=== PATIENT | female | born 1960 | race Caucasian/White ===

== ENCOUNTER → 2020-03-07 10:09 | Outpatient (BNVA) | payer OTHER, SELFPAY | PROVIDERS: PCP Internal Medicine; Visit Provider Internal Medicine Pulmonary Disease | DX: J44.9 Chronic obstructive pulmonary disease, unspecified (principal); R09.02 Hypoxemia; Z87.891 Personal history of nicotine dependence; Z88.8 Allergy status to other drugs, medicaments and biological substances; Z99.81 Dependence on supplemental oxygen | CPT/HCPCS: 99212 ==

== ENCOUNTER 2020-03-08 15:35 | Inpatient (IN) | payer OTHER, SELFPAY ==
[2020-03-08 15:57] VITALS: BP 175/112; PULSE 104; RESP 22; TEMP 37.3; O2SAT 99; BMI 32.0
--- NOTE | 2020-03-08 16:16 | PC.RT ---
Pt came in with EMS on100% NRB. Wears 4L of O2 at home baseline. Has a hx of asthma and COPD. Pt gave herself 3 Duoneb treatments prior to calling EMS. [place] no relief from nebs. I assessed her upon arrival Breath sounds are coarse crackles bilateral lower lobes. SPO2 on 10% NRB was 100%. wean to 4L on NC, SPO2 remained in the mid 90's, but patient felt as though it was harder to breath, noticed a increase in WOB, placed on 55% 14LPM with venti mask. Pt said she felt better with mask on.
--- NOTE | 2020-03-08 16:28 | XR_ITS ---
EXAMINATION: XR CHEST CLINICAL INFORMATION: Shortness of breath COMPARISON: Chest radiographs 12/27/2019, 09/01/2019 TECHNIQUE: Portable upright AP view of the chest was obtained. FINDINGS: The heart is enlarged similar to prior studies. The vascularity is normal. There is no vascular congestion or effusion. There is subtle groundglass opacities suggested right lateral base. No confluent airspace consolidation. The hilar and mediastinal contours and bony structures are unremarkable. XR/XR chest 1V IMPRESSION: 1. Chronic enlarged cardiopericardial silhouette. Vascularity normal. No effusion. 2. Suspect subtle groundglass opacity right lateral base.
--- NOTE | 2020-03-08 16:28 | ECG_ITS ---
Test Reason : DYSPNEA Blood Pressure : / mmHG Vent. Rate : 107 BPM Atrial Rate : 107 BPM P-R Int : 152 ms QRS Dur : 126 ms QT Int : 402 ms P-R-T Axes : 041 041 013 degrees QTc Int : 536 ms Sinus tachycardia RSR' or QR pattern in V1 suggests right ventricular conduction delay Nonspecific T wave abnormality Inferior leads Incomplete right bundle branch block Abnormal ECG When compared with ECG of 27-DEC-2019 09:43, No significant change was found Referred By: Phillip Choi Electronically Signed By:REGINALD DOBBS MD
--- NOTE | 2020-03-08 16:31 | ED_ITS ---
HPI - SOB/Dyspnea General Chief Complaint: Dyspnea Stated Complaint: SOB,ON NRB Time Seen by Provider: 03/08/20 16:17 Source: patient Mode of arrival: ambulatory Limitations: no limitations and language barrier History of Present Illness HPI Narrative: patient 59 years old female with history of systolic heart fail ure with left ventricular ejection fraction about 40% supposedly nonischemic, COPD with chronic respiratory failure on chronic oxygen therapy at 3 liters/minute obesity hypertension came to the ER for increased shortness of breath for last few days getting worse today patient use 3 DuoNeb treatment at home prior to arrival without much relief patient was seen by school bus technician yesterday who increased her oxygen from 3 L to 4 L 24 hours. Patient denies any fever no leg swelling no chest pain on arrival patient was Hi 80's saturating high 80s while using her 4 L oxygen improved to high 90s after some time also patient's blood pressure was elevated when she came to 175/112 MD elicited complaint: shortness of breath and cough Pertinent past history: COPD and congestive heart failure Onset (ago): day(s) (2-3) Timing: constant Severity: moderate Exacerbating factors: movement Relieving factors: oxygen Known history of: COPD and congestive heart failure Related Data Home Medications Medication Instructions Recorded Confirmed carvedilol 12.5 mg tablet 12.5 mg PO BID 02/01/20 furosemide 40 mg tablet 40 mg PO DAILY 02/01/20 ipratropium 0.5 mg-albuterol 3 mg ml INHALATION QID 02/01/20 (2.5 mg base)/3 mL nebulization soln lisinopril 5 mg tablet 5 mg PO DAILY 02/01/20 meclizine 25 mg tablet 25 mg PO TID PRN 02/01/20 metformin 1,000 mg tablet 1,000 mg PO BID 02/01/20 montelukast 10 mg tablet 10 mg PO BEDTIME 02/01/20 quetiapine 50 mg tablet mg PO 02/01/20 rosuvastatin 40 mg tablet 40 mg PO DAILY 02/01/20 sertraline 100 mg tablet 200 mg PO DAILY 02/01/20 simvastatin 40 mg tablet 40 mg PO BEDTIME 02/01/20 sodium chloride 0.65 % nasal spray spray INTRANASAL Q2H PRN 02/01/20 aerosol tiotropium bromide 18 mcg capsule 1 cap INHALATION DAILY 02/01/20 with inhalation device trazodone 50 mg tablet mg PO 02/01/20 Previous Rx's Medication Instructions Recorded fluticasone 250 mcg-salmeterol 50 1 inh INHALATION BID 30 Days #1 ea 03/07/20 mcg/dose blistr powdr for inhalation omeprazole 20 mg capsule,delayed 20 mg PO DAILY #30 cap 03/08/20 release omeprazole 20 mg capsule,delayed 20 mg PO DAILY 30 Days #30 cap 03/08/20 release Allergies Allergy/AdvReac Type Severity Reaction Status Date / Time nicotine [Nicotine] Allergy Unknown ITCHING Verified 03/07/20 10:12 WITH THE PATCHES topiramate Allergy Unknown inadequealte Verified 03/07/20 10:12 response Review of Systems Review of Systems: REVIEW OF SYSTEMS: Pertinent positives and negatives are stated above in the history. GEN: no fevers, chills, fatigue HEENT: no nasal congestion, sore throat, ear pain NEURO: no headache, dizziness, focal weakness PULM: ++dry cough, shortness of breath CV: no chest pain, palpitations, LE edema ABD: no abdominal pain, nausea, vomiting, diarrhea : no dysuria, urgency, frequency SKIN: no rash ROS otherwise negative x 10 PMFSH Past Medical History Medical History Cardiomyopathy COPD (chronic obstructive pulmonary disease) Diabetes HFrEF (heart failure with reduced ejection fraction) HLD (hyperlipidemia) HTN (hypertension) Mitral regurgitation KELLIE (obstructive sleep apnea) Surgical History Bilateral ankle fractures History of total abdominal hysterectomy Family History Family History Father No problems noted. Mother Liver cancer Hypertension Social History Social History Alcohol intake: unknown Smoking Status: Unknown if ever smoked Use of substances other than those prescribed or required for medical reasons: No Advance Directives: No (IN ED RM 1) Advance Directives Information Provided: No (IN ED RM 1) Physical Exam Vital Signs: Vital Signs: Last Vital Signs Temp 99.0 F 03/08/20 19:11 Pulse 81 03/08/20 19:11 Resp 16 03/08/20 19:11 BP 179/116 H 03/08/20 19:11 Pulse Ox 98 03/08/20 19:11 Body Mass Index 32.0 VITAL SIGNS: Reviewed. GENERAL: Well developed, well nourished, in moderate acute distress. on 55% Ventimask saturating 99% using accessory respiratory muscles HEAD: Normocephalic/atraumatic, EYES: PERRLA No pallor/icterus noted NOSE: Nares patent bilateral OROPHARYNX: Oral mucosa moist no oral lesions NECK: Supple, no adenopathy LUNGS: decreased breath sounds. few rales at the bases wheezing tachypneic using accessory respiratory muscle CARDIOVASCULAR: Regular rate and rhythm without noted murmurs, no JVD or lower extremity edema. ABDOMEN: Soft, non-tender, non-distended with normal bowel sounds. No rigidity. No guarding. No palpable masses or hernias noted MUSCULOSKELETAL: No tenderness, deformities, EXTREMITIES: No cyanosis or edema. SKIN: no rashes, ulcerations, jaundice, pallor, or petechiae NEUROLOGIC: Alert and oriented x 3. Strength and sensation to light touch were grossly intact normal speech Course Course Course Narrative: patient with elevated hypertension with CHF similar to that in the past with COPD and hypoxia chest x-ray with possible infiltrate right lower lobe patient has slightly elevated lactic acid 2.1 secondary to albuterol use it patient is not septic at this time COVID-19 is negative will treat with IV Lasix nitropaste IV Rocephin Zithromax and admit MDM - SOB/Dyspnea Differential Diagnosis Differential diagnosis: Likely acute exacerbation of chronic obstructive airways disease, congestive heart failure, pneumonia and asthma with exacerbation Medical Records Attestation: I reviewed the patient's medical records. Lab Data Attestation: I reviewed the patient's lab results. Result diagrams: 03/08/20 17:14 03/08/20 17:14 Labs: Lab Results 03/08/20 03/08/20 03/08/20 Range/Units 17:14 17:14 17:14 WBC 10.2 (4.8-10.8) X10*3/uL RBC 4.28 (4.20-5.50) X10*6/uL Hgb 10.5 L (12.0-16.0) g/dl Hct 35.6 L (37-47) % MCV 83.2 (80-98) fL MCH 24.5 L (27.0-33.0) pg MCHC 29.5 L (31.0-35.0) g/dl RDW 15.5 (11.0-16.0) % Plt Count 230 (160-400) X10*3/uL MPV 10.0 (9.4-12.3) fL Immature Gran % (Auto) 0.3 (0.0-0.4) % Neut % (Auto) 84.8 H (45-73) % Lymph % (Auto) 11.7 L (20-40) % [place] % (Auto) 2.3 (2-11) % Eos % (Auto) 0.6 (0-4) % Baso % (Auto) 0.3 (0-2) % Lymph # (Auto) 1.2 (1.2-4.9) X10*3/uL [place] # (Auto) 0.2 (0.1-1.2) X10*3/uL Eos # (Auto) 0.1 (0.0-0.4) X10*3/uL Baso # (Auto) 0.0 (0.0-0.2) X10*3/uL Abs Immat Gran (auto) 0.03 (0.00-0.03) X10*3/uL Absolute Neuts (auto) 8.7 H (2.0-8.3) X10*3/uL Absolute Nucleated RBC 0.000 (0.0-0.012) X10*3/uL Nucleated RBC % (auto) 0.0 (0.0-0.2) /100WBC Sodium 141 (135-145) mmol/L Potassium 3.6 (3.3-5.1) mmol/l Chloride 102 (96-108) mmol/L Carbon Dioxide 30 H (22-29) mmol/L Anion Gap 13 (12-20) BUN 13 (9-16) mg/dL Creatinine 0.83 (0.5-1.4) mg/dL Estim Creat Clear Calc 63.8 Estimated GFR > 60 Random Glucose 132 H (60-115) mg/dL Lactic Acid (0.5-2.0) mmol/L Calcium 8.5 (8.4-10.2) mg/dL Troponin I High Sens 27.0 H (<3.5-17.0) ng/L B-Natriuretic Peptide 1872 H (<100) pg/mL Coronavirus (PCR) (Negative) 03/08/20 03/08/20 Range/Units 17:14 17:15 WBC (4.8-10.8) X10*3/uL RBC (4.20-5.50) X10*6/uL Hgb (12.0-16.0) g/dl Hct (37-47) % MCV (80-98) fL MCH (27.0-33.0) pg MCHC (31.0-35.0) g/dl RDW (11.0-16.0) % Plt Count (160-400) X10*3/uL MPV (9.4-12.3) fL Immature Gran % (Auto) (0.0-0.4) % Neut % (Auto) (45-73) % Lymph % (Auto) (20-40) % [place] % (Auto) (2-11) % Eos % (Auto) (0-4) % Baso % (Auto) (0-2) % Lymph # (Auto) (1.2-4.9) X10*3/uL [place] # (Auto) (0.1-1.2) X10*3/uL Eos # (Auto) (0.0-0.4) X10*3/uL Baso # (Auto) (0.0-0.2) X10*3/uL Abs Immat Gran (auto) (0.00-0.03) X10*3/uL Absolute Neuts (auto) (2.0-8.3) X10*3/uL Absolute Nucleated RBC (0.0-0.012) X10*3/uL Nucleated RBC % (auto) (0.0-0.2) /100WBC Sodium (135-145) mmol/L Potassium (3.3-5.1) mmol/l Chloride (96-108) mmol/L Carbon Dioxide (22-29) mmol/L Anion Gap (12-20) BUN (9-16) mg/dL Creatinine (0.5-1.4) mg/dL Estim Creat Clear Calc Estimated GFR Random Glucose (60-115) mg/dL Lactic Acid 2.1 H* (0.5-2.0) mmol/L Calcium (8.4-10.2) mg/dL Troponin I High Sens (<3.5-17.0) ng/L B-Natriuretic Peptide (<100) pg/mL Coronavirus (PCR) NEGATIVE (Negative) ECG Data Attestation: I personally reviewed and interpreted this ECG as follows: ECG interpretation date: 03/08/20 Prior ECG tracings: available for review Interpretation: sinus tachycardia with heart rate of [address] T wave changes normal axis normal intervals Discharge Plan Discharge Prescriptions: No Action omeprazole 20 mg capsule,delayed release(DR/EC) 20 mg PO DAILY Qty: 30 RF: 3 omeprazole 20 mg capsule,delayed release(DR/EC) 20 mg PO DAILY 30 Days Qty: 30 RF: 3 fluticasone propion-salmeterol [Wixela Inhub] 250-50 mcg/dose blister with device 1 inh inhalation BID 30 Days Qty: 1 RF: 6
[2020-03-08] MEDS: Albuterol/Iprat 2.5/0.5MG 3 ML AMPUL.NEB INHALE ×2 (17:03→23:13)
[2020-03-08] MEDS: Albuterol Sulfate (0.083%) 2.5 MG/3 ML VIAL.NEB 5 MG INHALE (17:13)
[2020-03-08 17:23] LABS: MANUAL DIFF FLAG NO
[2020-03-08 17:24] LABS: Basophils Percent Auto 0.3 % (0-2); Eosinophils Absolute Auto 0.1 X10*3/uL (0.0-0.4); Eosinophils Percent Auto 0.6 % (0-4); Hematocrit 35.6 % (37-47); Hemoglobin 10.5 g/dl (12.0-16.0); Imm Gran Abs Auto 0.03 X10*3/uL (0.00-0.03); Imm Gran Pct Auto 0.3 % (0.0-0.4); Lymphocytes Absolute Auto 1.2 X10*3/uL (1.2-4.9); Lymphocytes Percent Auto 11.7 % (20-40); Mean Corpuscular HGB Conc 29.5 g/dl (31.0-35.0); Mean Corpuscular Hemoglobin 24.5 pg (27.0-33.0); Mean Corpuscular Volume 83.2 fL (80-98); Monocytes Absolute Auto 0.2 X10*3/uL (0.1-1.2); Monocytes Percent Auto 2.3 % (2-11); Neutrophils Absolute Auto 8.7 X10*3/uL (2.0-8.3); Neutrophils Percent Auto 84.8 % (45-73); Platelet Count 230 X10*3/uL (160-400); Red Blood Count 4.28 X10*6/uL (4.20-5.50); Red Cell Distribution Width 15.5 % (11.0-16.0); White Blood Count 10.2 X10*3/uL (4.8-10.8)
[2020-03-08 17:46] LABS: Anion Gap 13 (12-20); Blood Urea Nitrogen 13 mg/dL (9-16); Calcium 8.5 mg/dL (8.4-10.2); Carbon Dioxide 30 mmol/L (22-29); Chloride 102 mmol/L (96-108); Creatinine Clr Calc Pharmacy 63.8; Estimated Glomerular Filt Rate > 60; Glucose Random 132 mg/dL (60-115); Potassium 3.6 mmol/l (3.3-5.1); Sodium 141 mmol/L (135-145)
[2020-03-08 17:56] LABS: Lactic Acid 2.1 mmol/L (0.5-2.0)
[2020-03-08 17:57] LABS: B Type Natriuretic Peptide 1872 pg/mL (<100)
[2020-03-08 18:42] LABS: SARS COV2 PCR INHOUSE NEGATIVE (Negative)
[2020-03-08 19:11] VITALS: BP 179/116; PULSE 81; RESP 16; TEMP 37.2; O2SAT 98
[2020-03-08] MEDS: cefTRIAXone sodium 1 GM in 0.9 % Sodium Chloride 50 ML IV (19:16)
[2020-03-08] MEDS: Nitroglycerin 2 % Oint 1 GM Packet 1 INCH TRANSDERMA (19:16)
[2020-03-08] MEDS: Furosemide 40 MG/4 ML VIAL IVPUSH ×2 (19:16→22:56)
[2020-03-08 19:20] LABS: Reflex Lactate? Lactic Acid Added
--- NOTE | 2020-03-08 19:55 | P.HPIM_ITS ---
History of Present Illness Date of Service: 03/08/20 <JARROD James - Last Filed: 03/08/20 20:09> Chief Complaint: shortness of breath <JARROD James - Last Filed: 03/08/20 20:09> this is a 58-year-old female with a history of chronic respiratory failure on 4 L of home oxygen who presents to the emergency department with shortness of breath. Patient reports feeling short of breath for the past 2 days. She has an associated dry cough. She denies any lower extremity edema, PND or orthopnea. She denies any chest pain. She denies any associated fever or chills. She was seen in the Pulmonary office yesterday and noted to be hypoxic on her typical 3 L of oxygen therefore her oxygen was increased to 4 L. she reports in this did not significantly impact her symptoms. Today in the emergency department she was noted to be hypoxic with oxygen requirements higher than her baseline. She had a low-grade fever of 99.3. Coronavirus test was negative. BNP was elevated at 1872. troponin was slightly elevated 27.0. she was treated with IV antibiotics, IV Lasix, breathing treatments but continued to feel short of breath so the decision was made to admit her for further management. <JARROD James - Last Filed: 03/08/20 20:09> Review of Systems Review of Systems: Yes all other systems are reviewed and are negative <JARROD James - Last Filed: 03/08/20 20:09> Cardiovascular: Cardiovascular: Denies chest pain and Reports dyspnea <JARROD James - Last Filed: 03/08/20 20:09> Respiratory: Respiratory: Reports cough and Reports dyspnea <JARROD James - Last Filed: 03/08/20 20:09> Gastrointestinal: Gastrointestinal: Denies nausea and Denies vomiting <JARROD James - Last Filed: 03/08/20 20:09> [facility] Medical History: Medical History (Updated 03/08/20 @ 20:02 by JARROD James) Anxiety Cardiomyopathy Chronic respiratory failure COPD (chronic obstructive pulmonary disease) Depression Diabetes HFrEF (heart failure with reduced ejection fraction) HLD (hyperlipidemia) HTN (hypertension) Mitral regurgitation KELLIE (obstructive sleep apnea) <JARROD James - Last Filed: 03/08/20 20:09> Functional capacity: independent ambulation <JARROD James - Last Filed: 03/08/20 20:09> Family History: Family History Father No problems noted. Mother Liver cancer Hypertension <JARROD James - Last Filed: 03/08/20 20:09> Surgical History: Surgical History Bilateral ankle fractures History of total abdominal hysterectomy <JARROD James - Last Filed: 03/08/20 20:09> Social History: Social History (Updated 03/08/20 @ 20:03 by JARROD James) Household Members: None Alcohol intake: unknown Smoking Status: Current every day smoker Tobacco Type: Cigarette Use of substances other than those prescribed or required for medical reasons: No Advance Directives: No (IN ED RM 1) Advance Directives Information Provided: No (IN ED RM 1) <JARROD James - Last Filed: 03/08/20 20:09> Meds Allergies/Adverse reactions: Allergies Allergy/AdvReac Type Severity Reaction Status Date / Time nicotine [Nicotine] Allergy Unknown ITCHING Verified 03/07/20 10:12 WITH THE PATCHES topiramate Allergy Unknown inadequealte Verified 03/07/20 10:12 response <JARROD James - Last Filed: 03/08/20 20:09> Home medications: Home Medications Medication Instructions Recorded Confirmed Type furosemide 1 tab PO QAM 03/08/20 03/08/20 History ipratropium-albuterol 1 vial INHALATION QID 03/08/20 03/08/20 History lisinopril 1 tab PO DAILY 03/08/20 03/08/20 History metformin 1 tab PO BID 03/08/20 03/08/20 History montelukast 1 tab PO BEDTIME 03/08/20 03/08/20 History nicotine (polacrilex) 1 ea PO Q2H PRN 03/08/20 03/08/20 History omeprazole 20 mg PO DAILY@0630 03/08/20 03/08/20 History quetiapine 1 tab PO BID 03/08/20 03/08/20 History sertraline 2 tab PO DAILY 03/08/20 03/08/20 History simvastatin 1 tab PO BEDTIME 03/08/20 03/08/20 History sodium chloride [[place] Sal[place]] 2 drp INTRANASAL Q2H PRN 03/08/20 03/08/20 History tiotropium bromide [Spiriva with 1 cap INHALATION DAILY 03/08/20 03/08/20 History HandiHaler] trazodone 50 - 100 mg PO BEDTIME PRN 03/08/20 03/08/20 History <JARROD James - Last Filed: 03/08/20 20:09> Physical Exam Vital Signs and Narrative: Vital Signs: Last Vital Signs Temp 99.0 F 03/08/20 19:11 Pulse 81 03/08/20 19:11 Resp 16 03/08/20 19:11 BP 179/116 H 03/08/20 19:11 Pulse Ox 98 03/08/20 19:11 Body Mass Index 32.0 <JARROD James - Last Filed: 03/08/20 20:09> Const: Nutritional Appearance: well nourished <JARROD James Last Filed: 03/08/20 20:09> Orientation/consciousness: patient oriented x3 <JARROD James Last Filed: 03/08/20 20:09> HENMT: Head: Yes normocephalic and Yes atraumatic <JARROD James Last Filed: 03/08/20 20:09> Eyes: Sclerae: sclerae normal <JARROD James Last Filed: 03/08/20 20:09> Chest: Chest palpation & inspection: normal inspection of the chest <JARROD James Last Filed: 03/08/20 20:09> Resp: Effort & Inspection: audible wheezes and labored <JARROD James Last Filed: 03/08/20 20:09> Auscultation: diminished lung sounds <JARROD James Last Filed: 03/08/20 20:09> Cardio: Rate: regular rate <JARROD James - Last Filed: 03/08/20 20:09> Rhythm: regular rhythm <JARROD James Last Filed: 03/08/20 20:09> GI: Palpation (GI): Soft to palpation and nontender <JARROD James Last Filed: 03/08/20 20:09> Skin: General skin exam: no rashes or lesions noted <JARROD James Last Filed: 03/08/20 20:09> Neuro: General: patient oriented x3 <JARROD James Last Filed: 03/08/20 20:09> Cranial nerves: Yes CN's II-XII intact bilaterally and Yes Bilaterally intact EOM present <JARROD James - Last Filed: 03/08/20 20:09> Extrem: General: Yes normal to inspection <JARROD James Last Filed: 03/08/20 20:09> Results Labs Labs: Laboratory Tests 03/08/20 03/08/20 03/08/20 17:14 17:14 17:14 WBC 10.2 RBC 4.28 Hgb 10.5 L Hct 35.6 L MCV 83.2 MCH 24.5 L MCHC 29.5 L RDW 15.5 Plt Count 230 MPV 10.0 Immature Gran % (Auto) 0.3 Neut % (Auto) 84.8 H Lymph % (Auto) 11.7 L [place] % (Auto) 2.3 Eos % (Auto) 0.6 Baso % (Auto) 0.3 Lymph # (Auto) 1.2 [place] # (Auto) 0.2 Eos # (Auto) 0.1 Baso # (Auto) 0.0 Abs Immat Gran (auto) 0.03 Absolute Neuts (auto) 8.7 H Absolute Nucleated RBC 0.000 Nucleated RBC % (auto) 0.0 Sodium 141 Potassium 3.6 Chloride 102 Carbon Dioxide 30 H Anion Gap 13 BUN 13 Creatinine 0.83 Estim Creat Clear Calc 63.8 Estimated GFR > 60 Random Glucose 132 H Lactic Acid Calcium 8.5 Troponin I High Sens 27.0 H B-Natriuretic Peptide 1872 H Coronavirus (PCR) 03/08/20 03/08/20 17:14 17:15 WBC RBC Hgb Hct MCV MCH MCHC RDW Plt Count MPV Immature Gran % (Auto) Neut % (Auto) Lymph % (Auto) [place] % (Auto) Eos % (Auto) Baso % (Auto) Lymph # (Auto) [place] # (Auto) Eos # (Auto) Baso # (Auto) Abs Immat Gran (auto) Absolute Neuts (auto) Absolute Nucleated RBC Nucleated RBC % (auto) Sodium Potassium Chloride Carbon Dioxide Anion Gap BUN Creatinine Estim Creat Clear Calc Estimated GFR Random Glucose Lactic Acid 2.1 H* Calcium Troponin I High Sens B-Natriuretic Peptide Coronavirus (PCR) NEGATIVE <JARROD James - Last Filed: 03/08/20 20:09> Imaging Radiologist's Impressions: Impressions Chest X-Ray 03/08/20 16:28 IMPRESSION: 1. Chronic enlarged cardiopericardial silhouette. Vascularity normal. No effusion. 2. Suspect subtle groundglass opacity right lateral base. <JARROD James - Last Filed: 03/08/20 20:09> Assessment and Plan (1) HFrEF (heart failure with reduced ejection fraction): Status: Acute <JARROD James - Last Filed: 03/08/20 20:09> (2) Severe chronic obstructive pulmonary disease: Status: Acute <JARROD James - Last Filed: 03/08/20 20:09> this is a 59-year-old female with a history of chronic respiratory failure on 4 L of home oxygen, COPD, heart failure with reduced ejection fraction, sleep apnea, hypertension, dyslipidemia, diabetes who presents to the emergency department with 2 day history of shortness of breath found to have CHF and COPD exacerbation acute on chronic respiratory failure with hypoxia related to underlying COPD, CHF HFrEF - IV Lasix -Is&Os - cardiology consult acute COPD exacerbation - IV Solu-Medrol - breathing treatments elevated troponin likely related to demand - will trend tobacco dependence smoking cessation advised -NRT diabetes - SSI, POC KELLIE - CPAP elevated lactic acid related to hypoxia and breathing treatments no sepsis home medications will be continued once med reconciliation has been completed DVT prophylaxis- Lovenox code status- DNR DNI this case was discussed with Dr. Johnson <JARROD James - Last Filed: 03/08/20 20:09>
[2020-03-08] MEDS: Azithromycin 500 MG in 0.9 % Sodium Chloride 250 ML 125 MG IV (20:22)
--- NOTE | 2020-03-08 20:47 | PM.EVENT ---
Event Note Date of Service: 03/08/20 Event Note: Admission note: 59 y/o female who presented from home due to SOB. PMHX of COPD with chronic resp failure on 4 liters home oxygen, heart failure with reduced ejection fraction, sleep apnea, hypertension, dyslipidemia and diabetes. Patietn to be admitted due to acute on chronic COPD exacerbation vs CHF exacerbation. Denies any chest pain, nausea, vomiting, diarrhea or fever. Covid test in the ED negative. BP elevated 179/116 with HR of 81. CXR showing no significant vascular congestion and no pitting edema identified on physical exam or JVD. Assessment/Plan: Acute on chronic resp failure secondary to COPD exacerbation vs CHF exacerbation Elevated troponin likely demand ischemia Daily weights continue with IV diuresis Monitor I and O's closely cardiac rehabilitation program director Continue with updraft treatment for COPD Trend troponin, firs troponin of 27 likely demand ischemia given patient is not complaining for chest pain at present and there is no acute changes on EKG Cardiology evaluation in the am rest of the plan as discussed with JARROD Milan per H and P
--- NOTE | 2020-03-08 20:52 | PC.NURSE ---
Floor called regarding report for admission, Kanika VIZCAINO will be calling back to take report.
[2020-03-08 21:14] VITALS: BP 145/97; PULSE 84; RESP 20; TEMP 36.7; O2SAT 94
[2020-03-08 21:57] VITALS: PULSE 81; RESP 28; TEMP 36.7; O2SAT 100
[2020-03-08 22:06] VITALS: BP 185/109; PULSE 89
[2020-03-08 22:46] LABS: Glucose, Whole Blood 188 mg/dL (60-115)
[2020-03-08] MEDS: Magnesium Sulfate/H2O 2 GM/50 ML PIGGYBACK IV (22:56)
[2020-03-08 22:57] LABS: Troponin-I High Sensitivity 28.2 ng/L (<3.5-17.0)
[2020-03-08] MEDS: Insulin Lispro 100 UNIT/ML 3 ML VIAL SUBCUT (22:57)
[2020-03-08] MEDS: 0.9 % Sodium Chloride Flush 3 ML SYRINGE IVFLUSH (22:57)
[2020-03-08] MEDS: Enoxaparin Sodium 40 MG/0.4 ML SYRINGE SUBCUT (22:57)
[2020-03-09] VITALS (9 sets, daily range): BP systolic 136–173; BP diastolic 78–102; PULSE 70–90; RESP 18–25; TEMP 36.3–37; O2SAT 92–98; BMI 32.0
[2020-03-09] MEDS: Doxycycline Hyclate 100 MG in 0.9 % Sodium Chloride 250 ML 166.67 MG IV ×3 (00:59→23:04)
[2020-03-09 06:12] LABS: MANUAL DIFF FLAG NO
[2020-03-09 06:45] LABS: Anion Gap 17 (12-20); Blood Urea Nitrogen 15 mg/dL (9-16); Calcium 8.4 mg/dL (8.4-10.2); Carbon Dioxide 28 mmol/L (22-29); Chloride 100 mmol/L (96-108); Creatinine Clr Calc Pharmacy 69.7; Estimated Glomerular Filt Rate > 60; Glucose Random 158 mg/dL (60-115); Potassium 3.8 mmol/l (3.3-5.1); Sodium 141 mmol/L (135-145)
[2020-03-09 06:52] LABS: B Type Natriuretic Peptide 2981 pg/mL (<100)
[2020-03-09 06:53] LABS: Hematocrit 33.5 % (37-47); Hemoglobin 10.1 g/dl (12.0-16.0); Imm Gran Abs Auto 0.02 X10*3/uL (0.00-0.03); Imm Gran Pct Auto 0.3 % (0.0-0.4); Lymphocytes Absolute Auto 0.7 X10*3/uL (1.2-4.9); Lymphocytes Percent Auto 9.8 % (20-40); Mean Corpuscular HGB Conc 30.1 g/dl (31.0-35.0); Mean Corpuscular Hemoglobin 24.6 pg (27.0-33.0); Mean Corpuscular Volume 81.5 fL (80-98); Mean Platelet Volume 10.6 fL (9.4-12.3); Monocytes Absolute Auto 0.1 X10*3/uL (0.1-1.2); Monocytes Percent Auto 1.3 % (2-11); Neutrophils Absolute Auto 6.3 X10*3/uL (2.0-8.3); Neutrophils Percent Auto 88.6 % (45-73); Platelet Count 228 X10*3/uL (160-400); Red Blood Count 4.11 X10*6/uL (4.20-5.50); Red Cell Distribution Width 15.4 % (11.0-16.0); White Blood Count 7.1 X10*3/uL (4.8-10.8)
[2020-03-09] MEDS: Albuterol/Iprat 2.5/0.5MG 3 ML AMPUL.NEB INHALE ×4 (07:23→19:29)
[2020-03-09 07:32] LABS: Glucose, Whole Blood 161 mg/dL (60-115)
[2020-03-09] MEDS: 0.9 % Sodium Chloride Flush 3 ML SYRINGE IVFLUSH ×3 (07:36→23:04)
[2020-03-09] MEDS: Insulin Lispro 100 UNIT/ML 3 ML VIAL SUBCUT ×2 (07:36→20:58)
--- NOTE | 2020-03-09 09:45 | MHC.CM.PN ---
FEMALE 59 DX DYSPNEA. LIVES ALONE WITH ASSIST FROM [facility]MT [facility]PER[facility]. SHE DOES NOT USE AN AD. DP HOME RESUME [facility] PRIVATE TRANSPORT. CM WILL FOLLOW
--- NOTE | 2020-03-09 10:50 | HO.PM.IMPN ---
Subjective Subjective Date of Service: 03/09/20 Interval History: seen in f/u for copd exacerbation, acute on chronic resp failure with hypoxia. She feels a bit better Review of Systems Gen: no fever Resp: +no sob, +no cough CV: no chest, no [place], no leg edema GI: No n/v, no abd pain Neuro: No confusion Physical Exam Vital Signs: Vital Signs: Last Vital Signs Temp 98.6 F 03/09/20 03:41 Pulse 80 03/09/20 08:00 Resp 25 H 03/09/20 08:00 BP 160/90 H 03/09/20 08:00 Pulse Ox 92 03/09/20 08:00 Body Mass Index 32.0 General: AO X 3, no acute distress Resp: Normal resp effort CVS: S1,S2,RRR GI: +BS, NT, no distention Skin: No rash Neuro: motor grossly intact Psych: appropriate affect Objective Data Current Medications Generic Name Dose Route Start Last Admin Trade Name Freq PRN Reason Stop Dose Admin Acetaminophen 650 mg 03/08/20 21:54 Acetaminophen 325 Mg Tablet PO Q6H PRN Pain, Mild (Pain Scale 1-3) Albuterol Sulfate 2.5 mg 03/08/20 21:54 Albuterol Sulfate (0.083%) 2.5 Mg/3 Ml Vial.Neb INHALE Q4H PRN Shortness of Breath/Wheezing Albuterol/Ipratropium 3 ml 03/08/20 21:54 03/09/20 07:23 Albuterol/Iprat 2.5/0.5mg 3 Ml Ampul.Neb INHALE 3 ml RQ4H WHILE AWAKE [facility] Administration Docusate Sodium 100 mg 03/08/20 21:54 Docusate Sodium 100 Mg Capsule PO DAILY PRN Constipation Enoxaparin Sodium 40 mg 03/08/20 22:00 03/08/20 22:57 Enoxaparin Sodium 40 Mg/0.4 Ml Syringe SUBCUT 40 mg Q24H [facility] Administration Furosemide 40 mg 03/08/20 22:00 03/08/20 22:56 Furosemide 40 Mg/4 Ml Vial IVPUSH 40 mg Q12H [facility] Administration Protocol Doxycycline Hyclate 100 mg/ 250 mls @ 166.67 mls/hr 03/08/20 23:00 03/09/20 02:43 Sodium Chloride IV Infused Q12H [facility] Infusion Insulin Human Lispro 0 unit 03/08/20 21:54 03/09/20 07:36 Insulin Lispro 100 Unit/Ml 3 Ml Vial SUBCUT 2 unit QIDACHS [facility] Administration Protocol Methylprednisolone Sodium Succinate 40 mg 03/08/20 21:54 03/08/20 22:56 Methylprednisolone Sod Succ/Pf 40 Mg/Ml Vial IVPUSH 40 mg TID [facility] Administration Nicotine Polacrilex 2 mg 03/08/20 21:54 Nicotine Polacrilex 2 Mg Gum BUCCAL Q2H PRN Nicotine Cravings Pharmacy Consult 1 each 03/08/20 19:39 Consult Rx Perform Med Rec MISCELLANE ONCE PRN Consult order Sodium Chloride 3 ml 03/09/20 00:00 03/09/20 07:36 0.9 % Sodium Chloride Flush 3 Ml Syringe IVFLUSH 3 ml QSHIFT [facility] Administration Labs CBC & Chem 7: 03/09/20 05:55 03/09/20 05:55 Assessment and Plan (1) HFrEF (heart failure with reduced ejection fraction): Status: Acute (2) Severe chronic obstructive pulmonary disease: Status: Acute Assessment and Plan: 59-year-old female with a history of chronic respiratory failure on 4 L of home oxygen, COPD, heart failure with reduced ejection fraction, sleep apnea, hypertension, dyslipidemia, diabetes who presents to the emergency department with 2 day history of shortness of breath found to have CHF and COPD exacerbation acute on chronic respiratory failure with hypoxia related to underlying COPD, CHF HFrEF--seem much improved - IV Lasix, probably to PO -Is&Os - cardiology consult pending acute COPD exacerbation - IV Solu-Medrol - breathing treatments -Doxycyline for bronchitis elevated troponin--flat likely related to demand - tobacco dependence smoking cessation advised -NRT diabetes - SSI, POC KELLIE - CPAP elevated lactic acid related to hypoxia and breathing treatments no sepsis
[2020-03-09] MEDS: Furosemide 40 MG/4 ML VIAL IVPUSH (10:53)
[2020-03-09 12:01] LABS: Glucose, Whole Blood 118 mg/dL (60-115)
--- NOTE | 2020-03-09 12:47 | P.CONCA_ITS ---
History of Present Illness History of Present Illness Date of Consult: March 09, 2020 Requesting physician: Sahil Yost Chief complaint: Dyspnea Narrative: 59-year-old female with background history of COPD on home oxygen, ongoing tobacco abuse, nonischemic cardiomyopathy with EF of 30 35% with moderate severe mitral regurgitation, hypertension, hyperlipidemia, asthma, diabetes, shortness syndrome with interstitial lung disease and mild pulmonary hypertension, fatty liver, obstructive sleep apnea, dyslipidemia and depression. She is presenting with dyspnea. She said she could not breathe despite using oxygen at home. She denies any fevers or chills. She denies any chest discomfort. With these symptoms she presented to [facility] and was admitted for further care. At this stage she has received IV antibiotics as well as steroids with inhalers and is on IV Lasix also. She is feeling better right now. Her blood pressure is elevated. Denies any active issues right now. Review of Systems Review of Systems: Presented with dyspnea Yes all other systems are review ed and are negative [facility] Past Medical History Medical History (Updated 03/08/20 @ 20:02 by JARROD James) Anxiety Cardiomyopathy Chronic respiratory failure COPD (chronic obstructive pulmonary disease) Depression Diabetes HFrEF (heart failure with reduced ejection fraction) HLD (hyperlipidemia) HTN (hypertension) Mitral regurgitation KELLIE (obstructive sleep apnea) Functional capacity: independent ambulation Family History Family History Father No problems noted. 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 If so, by whom?: No Do you feel safe in your current relationship?: No Is there a partner from a previous relationship who is making you feel unsafe now?: No Are you made to feel afraid or neglected: No Advance Directives: No (IN ED RM 1) Advance Directives Information Provided: No (IN ED RM 1) Do you have thoughts of harming others: None Do you have a plan to hurt others: No Plan Recently lost weight without trying: No service: No Current occupational status: disabled Meds Allergies Allergy/AdvReac Type Severity Reaction Status Date / Time nicotine [Nicotine] Allergy Unknown ITCHING Verified 03/07/20 10:12 WITH THE PATCHES topiramate Allergy Unknown [email or web address] Verified 03/07/20 10:12 response Home Medications Medication Instructions Recorded Confirmed Type furosemide 1 tab PO QAM 03/08/20 03/08/20 History ipratropium-albuterol 1 vial INHALATION QID 03/08/20 03/08/20 History lisinopril 1 tab PO DAILY 03/08/20 03/08/20 History metformin 1 tab PO BID 03/08/20 03/08/20 History montelukast 1 tab PO BEDTIME 03/08/20 03/08/20 History nicotine (polacrilex) 1 ea PO Q2H PRN 03/08/20 03/08/20 History omeprazole 20 mg PO DAILY@0630 03/08/20 03/08/20 History quetiapine 1 tab PO BID 03/08/20 03/08/20 History sertraline 2 tab PO DAILY 03/08/20 03/08/20 History simvastatin 1 tab PO BEDTIME 03/08/20 03/08/20 History sodium chloride [[place] Saline] 2 drp INTRANASAL Q2H PRN 03/08/20 03/08/20 History tiotropium bromide [Spiriva with 1 cap INHALATION DAILY 03/08/20 03/08/20 History HandiHaler] trazodone 50 - 100 mg PO BEDTIME PRN 03/08/20 03/08/20 History Physical Exam Vital Signs: Vital Signs: Last Vital Signs Temp 97.8 F 03/09/20 11:48 Pulse 90 03/09/20 11:48 Resp 18 03/09/20 11:48 BP 173/96 H 03/09/20 11:48 Pulse Ox 96 03/09/20 11:48 Body Mass Index 32.0 GENERAL APPEARANCE: in no acute distress, well developed, well nourished. HEENT: unremarkable. HEAD: normocephalic, atraumatic. NECK/THYROID: no carotid bruit, no jugular venous distention. SKIN: no suspicious lesions, warm and dry. HEART: no murmurs, regular rate and rhythm, S1, S2 normal. LUNGS: few crackles at bases ABDOMEN: normal, bowel sounds present, soft, nontender, nondistended. EXTREMITIES: no clubbing, cyanosis, or edema. PERIPHERAL PULSES: equal. NEUROLOGIC: nonfocal, alert and oriented. PSYCH: mood/affect full range. Results Labs and Meds Result diagrams: 03/09/20 05:55 03/09/20 05:55 Lab results: Laboratory Results - last 24 hr 03/08/20 03/08/20 03/08/20 17:14 17:14 17:14 WBC 10.2 RBC 4.28 Hgb 10.5 L Hct 35.6 L MCV 83.2 MCH 24.5 L MCHC 29.5 L RDW 15.5 Plt Count 230 MPV 10.0 Immature Gran % (Auto) 0.3 Neut % (Auto) 84.8 H Lymph % (Auto) 11.7 L [place] % (Auto) 2.3 Eos % (Auto) 0.6 Baso % (Auto) 0.3 Lymph # (Auto) 1.2 [place] # (Auto) 0.2 Eos # (Auto) 0.1 Baso # (Auto) 0.0 Abs Immat Gran (auto) 0.03 Absolute Neuts (auto) 8.7 H Absolute Nucleated RBC 0.000 Nucleated RBC % (auto) 0.0 Sodium 141 Potassium 3.6 Chloride 102 Carbon Dioxide 30 H Anion Gap 13 BUN 13 Creatinine 0.83 Estim Creat Clear Calc 63.8 Estimated GFR > 60 POC Glucose Random Glucose 132 H Lactic Acid Lactic Acid Fup @ 2Hr Calcium 8.5 Magnesium 2.0 Troponin I High Sens 27.0 H B-Natriuretic Peptide 1872 H Coronavirus (PCR) 03/08/20 03/08/20 03/08/20 17:14 17:15 21:00 WBC RBC Hgb Hct MCV MCH MCHC RDW Plt Count MPV Immature Gran % (Auto) Neut % (Auto) Lymph % (Auto) [place] % (Auto) Eos % (Auto) Baso % (Auto) Lymph # (Auto) [place] # (Auto) Eos # (Auto) Baso # (Auto) Abs Immat Gran (auto) Absolute Neuts (auto) Absolute Nucleated RBC Nucleated RBC % (auto) Sodium Potassium Chloride Carbon Dioxide Anion Gap BUN Creatinine Estim Creat Clear Calc Estimated GFR POC Glucose Random Glucose Lactic Acid 2.1 H* Lactic Acid Fup @ 2Hr 1.0 Calcium Magnesium Troponin I High Sens B-Natriuretic Peptide Coronavirus (PCR) NEGATIVE 03/08/20 03/08/20 03/09/20 22:11 22:43 05:55 WBC 7.1 RBC 4.11 L Hgb 10.1 L Hct 33.5 L MCV 81.5 MCH 24.6 L MCHC 30.1 L RDW 15.4 Plt Count 228 MPV 10.6 Immature Gran % (Auto) 0.3 Neut % (Auto) 88.6 H Lymph % (Auto) 9.8 L [place] % (Auto) 1.3 L Eos % (Auto) 0.0 Baso % (Auto) 0.0 Lymph # (Auto) 0.7 L [place] # (Auto) 0.1 Eos # (Auto) 0.0 Baso # (Auto) 0.0 Abs Immat Gran (auto) 0.02 Absolute Neuts (auto) 6.3 Absolute Nucleated RBC 0.000 Nucleated RBC % (auto) 0.0 Sodium Potassium Chloride Carbon Dioxide Anion Gap BUN Creatinine Estim Creat Clear Calc Estimated GFR POC Glucose 188 H Random Glucose Lactic Acid Lactic Acid Fup @ 2Hr Calcium Magnesium Troponin I High Sens 28.2 H B-Natriuretic Peptide Coronavirus (PCR) 03/09/20 03/09/20 03/09/20 05:55 05:55 07:14 WBC RBC Hgb Hct MCV MCH MCHC RDW Plt Count MPV Immature Gran % (Auto) Neut % (Auto) Lymph % (Auto) [place] % (Auto) Eos % (Auto) Baso % (Auto) Lymph # (Auto) [place] # (Auto) Eos # (Auto) Baso # (Auto) Abs Immat Gran (auto) Absolute Neuts (auto) Absolute Nucleated RBC Nucleated RBC % (auto) Sodium 141 Potassium 3.8 Chloride 100 Carbon Dioxide 28 Anion Gap 17 BUN 15 Creatinine 0.76 Estim Creat Clear Calc 69.7 Estimated GFR > 60 POC Glucose 161 H Random Glucose 158 H Lactic Acid Lactic Acid Fup @ 2Hr Calcium 8.4 Magnesium Troponin I High Sens B-Natriuretic Peptide 2981 H Coronavirus (PCR) 03/09/20 11:53 WBC RBC Hgb Hct MCV MCH MCHC RDW Plt Count MPV Immature Gran % (Auto) Neut % (Auto) Lymph % (Auto) [place] % (Auto) Eos % (Auto) Baso % (Auto) Lymph # (Auto) [place] # (Auto) Eos # (Auto) Baso # (Auto) Abs Immat Gran (auto) Absolute Neuts (auto) Absolute Nucleated RBC Nucleated RBC % (auto) Sodium Potassium Chloride Carbon Dioxide Anion Gap BUN Creatinine Estim Creat Clear Calc Estimated GFR POC Glucose 118 H Random Glucose Lactic Acid Lactic Acid Fup @ 2Hr Calcium Magnesium Troponin I High Sens B-Natriuretic Peptide Coronavirus (PCR) EKG Interpretation EKG Comments: ECG from 03/08/2020 showing sinus rhythm, normal axis, right bundle-branch block, nonspecific ST-T changes, QTC 536 milliseconds. Assessment and Plan (1) Cardiomyopathy: Status: Acute (2) Mitral regurgitation: Status: Acute (3) Severe chronic obstructive pulmonary disease: Status: Acute (4) HFrEF (heart failure with reduced ejection fraction): Status: Acute (5) HTN (hypertension): Status: Acute Pleasant 59-year-old female with the background of COPD on home oxygen as well as cardiomyopathy with EF of 30 35% which is thought to be nonischemic cardiomyopathy based on stress testing in the past. She is presenting with dyspnea. Chest x-ray showing some subtle changes for infection and she is on doxycycline. Clinically not volume overloaded. Her blood pressure is elevated though. I think she can be changed to oral diuretics. Please resume her lisinopril 5 mg and carvedilol 6.25 mg twice a day. If blood pressure is elevated then we will titrate her medications. I think her presentation seems more like COPD. in any case she is not significantly volume overloaded. I think she definitely needs better blood pressure control. She has prolonged QTC please monitor electrolytes closely and avoid medications that can prolong QT further. She is on Seroquel at home along with trazodone as needed. I think her medication regimen should be reassessed and unnecessary medications should be stopped. Thank you for allowing me to participate in the care of your patient. Please feel free to contact me if you have any questions.
[2020-03-09 16:52] LABS: Glucose, Whole Blood 150 mg/dL (60-115)
[2020-03-09] MEDS: lisinopriL 10 MG TABLET PO (17:09)
[2020-03-09 20:51] LABS: Glucose, Whole Blood 186 mg/dL (60-115)
[2020-03-09] MEDS: Enoxaparin Sodium 40 MG/0.4 ML SYRINGE SUBCUT (20:57)
[2020-03-09] MEDS: carvediloL 6.25 MG TABLET PO (20:58)
[2020-03-10] VITALS (8 sets, daily range): BP systolic 135–169; BP diastolic 76–100; PULSE 67–79; RESP 18–20; TEMP 36.6–37.1; O2SAT 89–100
[2020-03-10 07:40] LABS: Glucose, Whole Blood 102 mg/dL (60-115)
[2020-03-10] MEDS: Albuterol/Iprat 2.5/0.5MG 3 ML AMPUL.NEB INHALE ×3 (08:05→15:27)
[2020-03-10] MEDS: carvediloL 6.25 MG TABLET PO ×2 (08:31→21:07)
[2020-03-10] MEDS: 0.9 % Sodium Chloride Flush 3 ML SYRINGE IVFLUSH ×2 (08:32→16:19)
[2020-03-10] MEDS: Furosemide 40 MG TABLET PO (08:32)
[2020-03-10] MEDS: lisinopriL 10 MG TABLET PO ×2 (08:32→12:14)
--- NOTE | 2020-03-10 10:30 | PM.PNCARD ---
Subjective Subjective Interval history: Cardiology follow up for sob, CHF evaluation. Awake, reports breathing is feeling better. Wearing high flow O2 with cannula. Resting comfortably. Review of Systems Constitutional: Reports no additional constitutional complaints Cardiovascular: Denies Abdominal Distension, Denies chest pain, Denies chest pain at rest, Denies chest pain with activity, Denies pedal edema, Denies irregular heart rhythm, Denies dyspnea and Reports dyspnea on exertion Respiratory: Denies chest congestion, Denies cough, Denies dyspnea and Reports dyspnea on exertion Gastrointestinal: Reports no additional gastrointestinal complaints Musculoskeletal: Reports no additional musculoskeletal complaints Reports system reviewed and no additional complaints, except as documented Physical Exam Vital Signs: Last Vital Signs Temp 98.5 F 03/10/20 07:57 Pulse 76 03/10/20 08:31 Resp 20 03/10/20 07:57 BP 162/100 H 03/10/20 08:31 Pulse Ox 100 03/10/20 07:57 Body Mass Index 32.0 Const Other: Alert, oriented, speech clear, follows commands HENVT Other: normal to exam, no JVD, no carotid bruit noted Resp Other: Unlabored at rest, no cough noted, wearing O2, laying with HOB 30 degrees, lungs clear anteriorly, posteriorly with fine rales in right base Cardio Rate: regular rate Rhythm: regular rhythm Heart sounds: S1 normal heart sound present, S2 normal heart sound present, Murmur heart sound present and Rub heart sound present Peripheral pulses: Peripheral pulses 2+ throughout GI Inspection: Yes normal to inspection Extrem Other: MORGAN, no gross weakness, no edema noted Results Labs and Meds Result diagrams: 03/09/20 05:55 03/09/20 05:55 Lab results: Laboratory Results - last 24 hr 03/09/20 03/09/20 03/09/20 11:53 16:48 20:47 POC Glucose 118 H 150 H 186 H 03/10/20 07:36 POC Glucose 102 Progress Note: A&P Assessment and plan (1) HFrEF (heart failure with reduced ejection fraction): Status: Acute Assessment and Plan: hx HFrEF. Admit with sob, hypoxia. CXR findings suggesting pneumonia. On AB. Does not appear fluid overloaded on exam even though BNP has been elevated. She normally takes Lasix 40mg daily and has been recieving BID. Fluid balance is neg 2200 cc since admit. Reviewed with Dr Curry. Will reduce her lasix to once daily. (2) Cardiomyopathy: Status: Acute Assessment and Plan: hx of nonischemic CMP. Last echo 01/17/20 with EF 40-45%, mild increase LV wall thickness, basal inferior akinetic. On Lisinopril and Carvedilol for neurohormonal modulation. Increasing Lisinopril for better BP control. Continue current carvedilol dose due to hx COPD. (3) Mitral regurgitation: Status: Acute Assessment and Plan: has known Mod to severe MR, as seen on prior echo 08/2019. Followed as outpt in our office. (4) Pneumonia: Status: Acute Assessment and Plan: Breathing seems comfortable at rest. She does report improvement since admit. Still wearing high flow O2. Ongoing mgt as directed by hospitalist (5) Severe chronic obstructive pulmonary disease: Status: Acute Assessment and Plan: hx O2 dependant COPD. Now with exacerbation. (6) Supplemental oxygen dependent: Status: Acute (7) HTN (hypertension): Status: Acute Assessment and Plan: BP elevated this admit. Lisinopril dose was increased from 5mg daily up to 10mg yesterday. BP this am 162/100. Will further titrate Lisinopril, as this will help with BP and CMP. Continue same Carvedlol. (8) KELLIE (obstructive sleep apnea): Status: Acute (9) Prolonged QT interval: Status: Acute Assessment and Plan: EKG on admit with QTc 536ms. K 3.8, Mg 2.0. Tele monitoring showing SR 80-90s. Recommend avoiding medications that prolong QT interval. Fall Risk Details Current Medications: Current Medications Generic Name Dose Route Start Last Admin Trade Name Freq PRN Reason Stop Dose Admin Acetaminophen 650 mg 03/08/20 21:54 Acetaminophen 325 Mg Tablet PO Q6H PRN Pain, Mild (Pain Scale 1-3) Albuterol Sulfate 2.5 mg 03/08/20 21:54 Albuterol Sulfate (0.083%) 2.5 Mg/3 Ml Vial.Neb INHALE Q4H PRN Shortness of Breath/Wheezing Albuterol/Ipratropium 3 ml 03/08/20 21:54 03/10/20 08:05 Albuterol/Iprat 2.5/0.5mg 3 Ml Ampul.Neb INHALE 3 ml RQ4H WHILE AWAKE [facility] Administration Carvedilol 6.25 mg 03/09/20 21:00 03/10/20 08:31 Carvedilol 6.25 Mg Tablet PO 6.25 mg BID [facility] Administration Protocol Docusate Sodium 100 mg 03/08/20 21:54 Docusate Sodium 100 Mg Capsule PO DAILY PRN Constipation Enoxaparin Sodium 40 mg 03/08/20 22:00 03/09/20 20:57 Enoxaparin Sodium 40 Mg/0.4 Ml Syringe SUBCUT 40 mg Q24H [facility] Administration Furosemide 40 mg 03/10/20 09:00 03/10/20 08:32 Furosemide 40 Mg Tablet PO 40 mg BID@0900,1800 [facility] Administration Protocol Doxycycline Hyclate 100 mg/ 250 mls @ 166.67 mls/hr 03/08/20 23:00 03/10/20 00:44 Sodium Chloride IV Infused Q12H [facility] Infusion Insulin Human Lispro 0 unit 03/08/20 21:54 03/10/20 08:32 Insulin Lispro 100 Unit/Ml 3 Ml Vial SUBCUT Not Given QIDACHS [facility] Protocol Lisinopril 10 mg 03/09/20 17:00 03/10/20 08:32 Lisinopril 10 Mg Tablet PO 10 mg DAILY [facility] Administration Protocol Methylprednisolone Sodium Succinate 40 mg 03/08/20 21:54 03/10/20 08:33 Methylprednisolone Sod Succ/Pf 40 Mg/Ml Vial IVPUSH 40 mg TID [facility] Administration Nicotine Polacrilex 2 mg 03/08/20 21:54 Nicotine Polacrilex 2 Mg Gum BUCCAL Q2H PRN Nicotine Cravings Pharmacy Consult 1 each 03/08/20 19:39 Consult Rx Perform Med Rec MISCELLANE ONCE PRN Consult order Sodium Chloride 3 ml 03/09/20 00:00 03/10/20 08:32 0.9 % Sodium Chloride Flush 3 Ml Syringe IVFLUSH 3 ml QSHIFT [facility] Administration Time Spent With Patient Time: Total time spent is greater than 50% in coordination of care (as documented) at patient's floor/unit and/or counseling patient: 15 Time with patient: 15 - 24 minutes
--- NOTE | 2020-03-10 11:17 | HO.PM.IMPN ---
Subjective Subjective Date of Service: 03/10/20 Interval History: seen in f/u for copd exacerbation, acute on chronic resp failure with hypoxia. continue to feel better Review of Systems Gen: no fever Resp: no sob, no cough CV: no chest, no [place], no leg edema GI: No n/v, no abd pain Neuro: No confusion Physical Exam Vital Signs: Vital Signs: Last Vital Signs Temp 98.5 F 03/10/20 07:57 Pulse 76 03/10/20 08:31 Resp 20 03/10/20 07:57 BP 162/100 H 03/10/20 08:31 Pulse Ox 100 03/10/20 07:57 Body Mass Index 32.0 General: AO X 3, no acute distress Resp: Normal resp effort CVS: S1,S2,RRR GI: +BS, NT, no distention Skin: No rash Neuro: motor grossly intact Psych: appropriate affect Objective Data Current Medications Generic Name Dose Route Start Last Admin Trade Name Freq PRN Reason Stop Dose Admin Acetaminophen 650 mg 03/08/20 21:54 Acetaminophen 325 Mg Tablet PO Q6H PRN Pain, Mild (Pain Scale 1-3) Albuterol Sulfate 2.5 mg 03/08/20 21:54 Albuterol Sulfate (0.083%) 2.5 Mg/3 Ml Vial.Neb INHALE Q4H PRN Shortness of Breath/Wheezing Albuterol/Ipratropium 3 ml 03/08/20 21:54 03/10/20 11:09 Albuterol/Iprat 2.5/0.5mg 3 Ml Ampul.Neb INHALE 3 ml RQ4H WHILE AWAKE [facility] Administration Carvedilol 6.25 mg 03/09/20 21:00 03/10/20 08:31 Carvedilol 6.25 Mg Tablet PO 6.25 mg BID [facility] Administration Protocol Docusate Sodium 100 mg 03/08/20 21:54 Docusate Sodium 100 Mg Capsule PO DAILY PRN Constipation Enoxaparin Sodium 40 mg 03/08/20 22:00 03/09/20 20:57 Enoxaparin Sodium 40 Mg/0.4 Ml Syringe SUBCUT 40 mg Q24H [facility] Administration Furosemide 40 mg 03/11/20 09:00 Furosemide 40 Mg Tablet PO DAILY [facility] Protocol Doxycycline Hyclate 100 mg/ 250 mls @ 166.67 mls/hr 03/08/20 23:00 03/10/20 00:44 Sodium Chloride IV Infused Q12H [facility] Infusion Insulin Human Lispro 0 unit 03/08/20 21:54 03/10/20 08:32 Insulin Lispro 100 Unit/Ml 3 Ml Vial SUBCUT Not Given QIDACHS [facility] Protocol Lisinopril 20 mg 03/11/20 09:00 Lisinopril 20 Mg Tablet PO DAILY [facility] Protocol Nicotine Polacrilex 2 mg 03/08/20 21:54 Nicotine Polacrilex 2 Mg Gum BUCCAL Q2H PRN Nicotine Cravings Pharmacy Consult 1 each 03/08/20 19:39 Consult Rx Perform Med Rec MISCELLANE ONCE PRN Consult order Sodium Chloride 3 ml 03/09/20 00:00 03/10/20 08:32 0.9 % Sodium Chloride Flush 3 Ml Syringe IVFLUSH 3 ml QSHIFT [facility] Administration Labs CBC & Chem 7: 03/09/20 05:55 03/09/20 05:55 Microbiology Microbiology Results: Microbiology 03/08/20 17:15 Blood - Venous Blood Culture - Preliminary 03/08/20 17:15 Blood - Venous Blood Culture - Preliminary No growth after 24 hours. Assessment and Plan (1) HFrEF (heart failure with reduced ejection fraction): Status: Acute (2) Severe chronic obstructive pulmonary disease: Status: Acute Assessment and Plan: 59-year-old female with a history of chronic respiratory failure on 4 L of home oxygen, COPD, heart failure with reduced ejection fraction, sleep apnea, hypertension, dyslipidemia, diabetes who presents to the emergency department with 2 day history of shortness of breath found to have CHF and COPD exacerbation acute on chronic respiratory failure with hypoxia related to underlying COPD, CHF HFrEF--seem much improved - IV Lasix reduced to once daily, probably to PO -Is&Os - cardiology consult pending -Lisinopril increased to 20 daily acute COPD exacerbation - IV Solu-Medrol, decrease to 40 bid - breathing treatments -Doxycyline for bronchitis, change to PO elevated troponin--flat likely related to demand - tobacco dependence smoking cessation advised -NRT diabetes - SSI, POC KELLIE - CPAP elevated lactic acid related to hypoxia and breathing treatments no sepsis
[2020-03-10 11:43] LABS: Glucose, Whole Blood 126 mg/dL (60-115)
[2020-03-10] MEDS: Doxycycline Hyclate 100 MG in 0.9 % Sodium Chloride 250 ML 166.67 MG IV ×2 (11:54→22:51)
[2020-03-10 15:57] LABS: Glucose, Whole Blood 141 mg/dL (60-115)
[2020-03-10 20:56] LABS: Glucose, Whole Blood 104 mg/dL (60-115)
[2020-03-10] MEDS: Enoxaparin Sodium 40 MG/0.4 ML SYRINGE SUBCUT (21:08)
[2020-03-11] VITALS (7 sets, daily range): BP systolic 132–186; BP diastolic 64–98; PULSE 66–82; RESP 18–20; TEMP 36.4–37.1; O2SAT 97–100
[2020-03-11] MEDS: 0.9 % Sodium Chloride Flush 3 ML SYRINGE IVFLUSH ×2 (00:40→09:43)
[2020-03-11 07:21] LABS: Glucose, Whole Blood 102 mg/dL (60-115)
[2020-03-11] MEDS: Albuterol/Iprat 2.5/0.5MG 3 ML AMPUL.NEB INHALE ×3 (07:28→15:31)
[2020-03-11] MEDS: carvediloL 6.25 MG TABLET PO (09:38)
[2020-03-11] MEDS: Furosemide 40 MG TABLET PO (09:42)
[2020-03-11] MEDS: lisinopriL 20 MG TABLET PO (09:42)
[2020-03-11 11:20] LABS: Glucose, Whole Blood 108 mg/dL (60-115)
[2020-03-11] MEDS: Doxycycline Hyclate 100 MG in 0.9 % Sodium Chloride 250 ML 166.67 MG IV (12:08)
--- NOTE | 2020-03-11 12:40 | P.DS_ITS ---
DS: Providers Provider Date of admission: 03/08/20 19:51 Primary care physician: Analisa Chavez MD Consults: 03/08/20 21:54 Consult to Cardiology Routine Consulting Provider: Kemar Curry Reason for consultation: chf Has provider been notified: No DS: Diagnosis Discharge Diagnosis (1) HFrEF (heart failure with reduced ejection fraction): (2) Severe chronic obstructive pulmonary disease: DS: Summary Hospital Course Hospital Course: HPI from 03/08/20 <Carola Amezquita, > Chief Complaint: SOB this is a 58-year-old female with a history of chronic respiratory failure on 4 L of home oxygen who presents to the emergency department with shortness of breath. Patient reports feeling short of breath for the past 2 days. She has an associated dry cough. She denies any lower extremity edema, PND or orthopnea. She denies any chest pain. She denies any associated fever or chills. She was seen in the Pulmonary office yesterday and noted to be hypoxic on her typical 3 L of oxygen therefore her oxygen was increased to 4 L. she reports in this did not significantly impact her symptoms. Today in the emergency department she was noted to be hypoxic with oxygen requirements higher than her baseline. She had a low-grade fever of 99.3. Coronavirus test was negative. BNP was elevated at 1872. troponin was slightly elevated 27.0. she was treated with IV antibiotics, IV Lasix, breathing treatments but continued to feel short of breath so the decision was made to admit her for further management. Hospital course: Acute on chronic respiratory failure with hypoxia due to COPD and CHF--is back to baseline with treatment of underlying issues. To continue oxygen at home. HFrEF--treated with IV Lasix with signficantly improvment and going back on PO Lasix at 40 daily (home dose) Lisinopril has been increased to 20 frm 5 acute COPD exacerbation Treated with IV Solumedrol, bronchodilators and steroid and Doxycyline for bronchitis. Advise to stop smoking. elevated troponin--flat likely related to demand - tobacco dependence smoking cessation advised diabetes--resome home mes KELLIE - CPAP Time Spent with Patient Time attestation: Total time spent providing and/or coordinating discharge services: Physical Exam Vital Signs: Vital Signs: Last Vital Signs Temp 98.0 F 03/11/20 11:20 Pulse 79 03/11/20 11:20 Resp 18 03/11/20 11:20 BP 168/98 H 03/11/20 11:20 Pulse Ox 98 03/11/20 11:20 Body Mass Index 32.0 General: AO X 3, no acute distress Resp: CTA bilateral CVS: S1,S2,RRR, no leg edema GI: +BS, NT, no distention Skin: No rash Neuro: motor grossly intact Psych: appropriate affect DS: Data Data Completed and Pending Labs on day of discharge: NHOUSE Stat WBC 7.1 X10*3/uL (4.8-10.8) 03/09/20 05:55 RBC 4.11 X10*6/uL (4.20-5.50) L 03/09/20 05:55 Hgb 10.1 g/dl (12.0-16.0) L 03/09/20 05:55 Hct 33.5 % (37-47) L 03/09/20 05:55 MCV 81.5 fL (80-98) 03/09/20 05:55 MCH 24.6 pg (27.0-33.0) L 03/09/20 05:55 MCHC 30.1 g/dl (31.0-35.0) L 03/09/20 05:55 RDW 15.4 % (11.0-16.0) 03/09/20 05:55 Plt Count 228 X10*3/uL (160-400) 03/09/20 05:55 MPV 10.6 fL (9.4-12.3) 03/09/20 05:55 Immature Gran % (Auto) 0.3 % (0.0-0.4) 03/09/20 05:55 Neut % (Auto) 88.6 % (45-73) H 03/09/20 05:55 Lymph % (Auto) 9.8 % (20-40) L 03/09/20 05:55 [place] % (Auto) 1.3 % (2-11) L 03/09/20 05:55 Eos % (Auto) 0.0 % (0-4) 03/09/20 05:55 Baso % (Auto) 0.0 % (0-2) 03/09/20 05:55 Lymph # (Auto) 0.7 X10*3/uL (1.2-4.9) L 03/09/20 05:55 [place] # (Auto) 0.1 X10*3/uL (0.1-1.2) 03/09/20 05:55 Eos # (Auto) 0.0 X10*3/uL (0.0-0.4) 03/09/20 05:55 Baso # (Auto) 0.0 X10*3/uL (0.0-0.2) 03/09/20 05:55 Abs Immat Gran (auto) 0.02 X10*3/uL (0.00-0.03) 03/09/20 05:55 Absolute Neuts (auto) 6.3 X10*3/uL (2.0-8.3) 03/09/20 05:55 Absolute Nucleated RBC 0.000 X10*3/uL (0.0-0.012) 03/09/20 05:55 Nucleated RBC % (auto) 0.0 /100WBC (0.0-0.2) 03/09/20 05:55 Sodium 141 mmol/L (135-145) 03/09/20 05:55 Potassium 3.8 mmol/l (3.3-5.1) 03/09/20 05:55 Chloride 100 mmol/L (96-108) 03/09/20 05:55 Carbon Dioxide 28 mmol/L (22-29) 03/09/20 05:55 Anion Gap 17 (12-20) 03/09/20 05:55 BUN 15 mg/dL (9-16) 03/09/20 05:55 Creatinine 0.76 mg/dL (0.5-1.4) 03/09/20 05:55 Estim Creat Clear Calc 69.7 03/09/20 05:55 Estimated GFR > 60 03/09/20 05:55 POC Glucose 108 mg/dL (60-115) 03/11/20 11:17 Random Glucose 158 mg/dL (60-115) H 03/09/20 05:55 Lactic Acid 2.1 mmol/L (0.5-2.0) H* 03/08/20 17:14 Lactic Acid Fup @ 2Hr 1.0 mmol/L (0.5-2.0) 03/08/20 21:00 Calcium 8.4 mg/dL (8.4-10.2) 03/09/20 05:55 Magnesium 2.0 mg/dL (1.6-2.6) 03/08/20 17:14 Troponin I High Sens 28.2 ng/L (<3.5-17.0) H 03/08/20 22:11 B-Natriuretic Peptide 2981 pg/mL (<100) H 03/09/20 05:55 Coronavirus (PCR) NEGATIVE (Negative) 03/08/20 17:15 Preliminary micro results at discharge 03/08/20 17:15 Blood Culture - Preliminary Blood - Venous Corynebacterium species 03/08/20 17:15 Blood Culture - Preliminary Blood - Venous No growth after 48 hours. Discharge Plan Discharge Anticipated Discharge Date/Time: 03/11/20 12:40 Patient Disposition: Home, Self-Care Referrals: Analisa Carr MD [Primary Care Provider] - Discharge Medications: New lisinopril 20 mg Tablet 20 mg PO DAILY Qty: 30 RF: 0 doxycycline hyclate 100 mg tablet 100 mg PO DAILY Qty: 6 RF: 0 prednisone 20 mg tablet 20 mg PO DAILY Qty: 3 RF: 0 carvedilol 6.25 mg Tablet 6.25 mg PO BID Qty: 60 RF: 0 amlodipine 5 mg Tablet 5 mg PO DAILY Qty: 30 RF: 0 atorvastatin [Lipitor] 20 mg tablet 20 mg PO BEDTIME Qty: 30 RF: 0 Continued nicotine (polacrilex) 2 mg gum 1 ea PO Q2H PRN (Reason: Nicotine Cravings) RF: 0 omeprazole 20 mg capsule,delayed release(DR/EC) 20 mg PO DAILY@0630 RF: 0 trazodone 50 mg tablet 50 - 100 mg PO BEDTIME PRN (Reason: Sleep) RF: 0 furosemide 40 mg tablet 1 tab PO QAM RF: 0 sertraline 100 mg tablet 2 tab PO DAILY RF: 0 metformin 1,000 mg tablet 1 tab PO BID RF: 0 montelukast 10 mg tablet 1 tab PO BEDTIME RF: 0 sodium chloride [[place] Saline] 0.65 % aerosol,spray 2 drp intranasal Q2H PRN (Reason: Nasal Congestion) RF: 0 Spiriva with HandiHaler 18 mcg capsule, w/inhalation device 1 cap inhalation DAILY RF: 0 quetiapine 50 mg tablet 1 tab PO BID RF: 0 Discontinued simvastatin 40 mg tablet 1 tab PO BEDTIME RF: 0 lisinopril 5 mg tablet 1 tab PO DAILY RF: 0 No [facility] ipratropium-albuterol 0.5 mg-3 mg(2.5 mg base)/3 mL solution for nebulization 1 ml inhalation QID Qty: 360 RF: 6 Discharge Orders: Discharge Order (Routine); Ordered 03/11/20 Ordered By: Sahil Yost Diet: advance to usual diet and low salt diet Activity on Discharge: As tolerated Patient Instructions: Lisinopril (By mouth), Doxycycline (By mouth), Prednisone (By mouth), Amlodipine (By mouth), Atorvastatin (By mouth), Carvedilol (By mouth), Heart Failure (GEN) Discharge Date/Time: 03/11/20 17:20 Visit Report Forms: Patient Portal Discharge page Care Plan Goals: prevent rehospitalization and flare or heart failure Health Concerns: no new concern at this time just your chornic medical issues Plan of Treatment: Take Doxycycline for pneumonia, take Lasix for heart failure, dont' eat too much salt or drink too much water. Stop smoking and follow up with your Doctor within a week, call for appointment
[2020-03-11 12:47] LABS: Anion Gap 13 (12-20); Blood Urea Nitrogen 32 mg/dL (9-16); Carbon Dioxide 31 mmol/L (22-29); Chloride 97 mmol/L (96-108); Creatinine Clr Calc Pharmacy 62.3; Estimated Glomerular Filt Rate > 60; Glucose Random 121 mg/dL (60-115); Potassium 3.4 mmol/l (3.3-5.1); Sodium 138 mmol/L (135-145)
--- NOTE | 2020-03-11 12:47 | MHC.CM.PN ---
Patient has been medically cleared for dc to home today, no services.
[2020-03-11] MEDS: amLODIPine Besylate 5 MG TABLET PO (13:21)
--- NOTE | 2020-03-11 15:57 | MHC.CM.PN ---
Patient has been medically cleared for dc to home today, no services. Patient will dc to home today, [facility], today at 5 PM.
--- NOTE | 2020-03-11 16:51 | PM.PNCARD ---
Subjective Subjective Interval history: Doing well, breathing better. BP is high. Review of Systems Review of Systems No CP or SOB. Reports system reviewed and no additional complaints, except as documented Physical Exam Vital Signs: Last Vital Signs Temp 97.6 F 03/11/20 15:09 Pulse 82 03/11/20 15:09 Resp 20 03/11/20 15:09 BP 166/84 H 03/11/20 15:09 Pulse Ox 97 03/11/20 15:09 Body Mass Index 32.0 GENERAL APPEARANCE: in no acute distress, well developed, well nourished. HEENT: unremarkable. HEAD: normocephalic, atraumatic. NECK/THYROID: no carotid bruit, no jugular venous distention. SKIN: no suspicious lesions, warm and dry. HEART: no murmurs, regular rate and rhythm, S1, S2 normal. LUNGS: few crackles at bases ABDOMEN: normal, bowel sounds present, soft, nontender, nondistended. EXTREMITIES: no clubbing, cyanosis, or edema. PERIPHERAL PULSES: equal. NEUROLOGIC: nonfocal, alert and oriented. PSYCH: mood/affect full range. Results Labs and Meds Result diagrams: 03/09/20 05:55 03/11/20 12:10 Lab results: Laboratory Results - last 24 hr 03/10/20 03/11/20 03/11/20 20:53 07:15 11:17 Sodium Potassium Chloride Carbon Dioxide Anion Gap BUN Creatinine Estim Creat Clear Calc Estimated GFR POC Glucose 104 102 108 Random Glucose Calcium 03/11/20 12:10 Sodium 138 Potassium 3.4 Chloride 97 Carbon Dioxide 31 H Anion Gap 13 BUN 32 H D Creatinine 0.85 Estim Creat Clear Calc 62.3 Estimated GFR > 60 POC Glucose Random Glucose 121 H Calcium 9.0 D Progress Note: A&P Assessment and plan (1) HTN (hypertension): Status: Acute (2) COPD (chronic obstructive pulmonary disease): Status: Acute (3) HFrEF (heart failure with reduced ejection fraction): Status: Acute Assessment and Plan: 59 year old female with advanced COPD on oxygen, mod to severe MR and NICM EF 30-35%. Presenting for dyspnea due to PNA. On antibiotics. BP is elevated. Added amlodipine and increased the lisinopril to 20 mg BID. Clinically compensated. Will follow along. Fall Risk Details Current Medications: Current Medications Generic Name Dose Route Start Last Admin Trade Name Freq PRN Reason Stop Dose Admin Acetaminophen 650 mg 03/08/20 21:54 Acetaminophen 325 Mg Tablet PO Q6H PRN Pain, Mild (Pain Scale 1-3) Albuterol Sulfate 2.5 mg 03/08/20 21:54 Albuterol Sulfate (0.083%) 2.5 Mg/3 Ml Vial.Neb INHALE Q4H PRN Shortness of Breath/Wheezing Albuterol/Ipratropium 3 ml 03/08/20 21:54 03/11/20 15:31 Albuterol/Iprat 2.5/0.5mg 3 Ml Ampul.Neb INHALE 3 ml RQ4H WHILE AWAKE [facility] Administration Amlodipine Besylate 5 mg 03/11/20 12:45 03/11/20 13:21 Amlodipine Besylate 5 Mg Tablet PO 5 mg DAILY [facility] Administration Protocol Carvedilol 6.25 mg 03/09/20 21:00 03/11/20 09:38 Carvedilol 6.25 Mg Tablet PO 6.25 mg BID [facility] Administration Protocol Docusate Sodium 100 mg 03/08/20 21:54 Docusate Sodium 100 Mg Capsule PO DAILY PRN Constipation Enoxaparin Sodium 40 mg 03/08/20 22:00 03/10/20 21:08 Enoxaparin Sodium 40 Mg/0.4 Ml Syringe SUBCUT 40 mg Q24H [facility] Administration Furosemide 40 mg 03/11/20 09:00 03/11/20 09:42 Furosemide 40 Mg Tablet PO 40 mg DAILY [facility] Administration Protocol Doxycycline Hyclate 100 mg/ 250 mls @ 166.67 mls/hr 03/08/20 23:00 03/11/20 14:36 Sodium Chloride IV Infused Q12H [facility] Infusion Insulin Human Lispro 0 unit 03/08/20 21:54 03/11/20 13:01 Insulin Lispro 100 Unit/Ml 3 Ml Vial SUBCUT Not Given QIDACHS [facility] Protocol Lisinopril 20 mg 03/11/20 21:00 Lisinopril 20 Mg Tablet PO BID [facility] Protocol Methylprednisolone Sodium Succinate 40 mg 03/10/20 21:00 03/11/20 09:38 Methylprednisolone Sod Succ/Pf 40 Mg/Ml Vial IVPUSH 40 mg BID [facility] Administration Nicotine Polacrilex 2 mg 03/08/20 21:54 Nicotine Polacrilex 2 Mg Gum BUCCAL Q2H PRN Nicotine Cravings Pharmacy Consult 1 each 03/08/20 19:39 Consult Rx Perform Med Rec MISCELLANE ONCE PRN Consult order Sodium Chloride 3 ml 03/09/20 00:00 03/11/20 09:43 0.9 % Sodium Chloride Flush 3 Ml Syringe IVFLUSH 3 ml QSHIFT [facility] Administration Time Spent With Patient Time: Total time spent is greater than 50% in coordination of care (as documented) at patient's floor/unit and/or counseling patient: Time with patient: less than 15 minutes
== END 2020-03-11 17:20 | disposition home or self-care (01) | DRG 140 ==
LOC: HO.ED 19:37 → HO.IMC 20:37
PROVIDERS: Physician Assistant Medical; Admitting Provider Internal Medicine; Emergency Provider Internal Medicine; PCP Internal Medicine; Visit Provider Internal Medicine
DX: J44.1 Chronic obstructive pulmonary disease with (acute) exacerbation (principal); J96.21 Acute and chronic respiratory failure with hypoxia; I50.23 Acute on chronic systolic (congestive) heart failure; I11.0 Hypertensive heart disease with heart failure; I42.8 Other cardiomyopathies; F41.9 Anxiety disorder, unspecified; E66.2 Morbid (severe) obesity with alveolar hypoventilation; E11.9 Type 2 diabetes mellitus without complications; E78.5 Hyperlipidemia, unspecified; Z68.32 Body mass index [BMI] 32.0-32.9, adult; Z99.81 Dependence on supplemental oxygen; F17.210 Nicotine dependence, cigarettes, uncomplicated; F32.9 Major depressive disorder, single episode, unspecified; Z71.6 Tobacco abuse counseling; Z20.828 Contact with and (suspected) exposure to other viral communicable diseases; Z79.84 Long term (current) use of oral hypoglycemic drugs; Z79.899 Other long term (current) drug therapy; Z66 Do not resuscitate
CPT/HCPCS: 36415; 71045; 80048; 82947; 83605; 83735; 83880; 84484; 85025; 87040; 93005; 94640; 96365; 96366; 96367; 96375; 99285; J0456; J0696; J1650; J1940; J2920; J3475; U0003

== ENCOUNTER → 2020-03-13 09:57 | Outpatient (BNVA) | payer OTHER, SELFPAY | PROVIDERS: PCP Internal Medicine; Visit Provider Nurse Practitioner Family | DX: I11.0 Hypertensive heart disease with heart failure (principal); I50.20 Unspecified systolic (congestive) heart failure; I42.9 Cardiomyopathy, unspecified; I34.0 Nonrheumatic mitral (valve) insufficiency; R94.31 Abnormal electrocardiogram [ECG] [EKG]; J44.9 Chronic obstructive pulmonary disease, unspecified; J18.9 Pneumonia, unspecified organism; G47.33 Obstructive sleep apnea (adult) (pediatric); E78.5 Hyperlipidemia, unspecified; Z79.899 Other long term (current) drug therapy; Z99.81 Dependence on supplemental oxygen | CPT/HCPCS: 99212 ==

== ENCOUNTER 2020-04-30 09:55 | Emergency (ER) | payer OTHER, SELFPAY ==
[2020-04-30 10:10] VITALS: BP 105/65; PULSE 119; RESP 24; TEMP 36.8; O2SAT 100; BMI 32.3
--- NOTE | 2020-04-30 10:15 | XR_ITS ---
EXAMINATION: CHEST, LUMBAR SPINE, PELVIS AND SACRUM/COCCYX. CLINICAL INFORMATION: Fall. Trauma. COMPARISON: Chest 12/27/2019 TECHNIQUE: Chest 2 views. Lumbar spine 3 views. Pelvis one view. Sacrum and coccyx 2 views. FINDINGS: Chest: The lungs are well-expanded and clear of acute process. Heart size is normal Enlarged. Pulmonary vascularity is normal. No gross bony abnormality seen. Lumbar spine: There is normal lumbar lordosis. There is loss of L1 superior endplate height. Rest of vertebral heights and alignment is normal. The disc heights are maintained. There is mild ventral spondylosis L5-S1 disc level. AP pelvis: There is normal symmetry of bilateral hip joints and SI joints without any sclerosis or lucency. No acute fracture or dislocation seen. The soft tissues are normal. Sacrum/coccyx: There is interruption of anterior sacral line between S1 and S2 vertebra on the lateral view. Otherwise the entire sacrum and coccyx appears unremarkable. The soft tissues are normal. XR/XR chest 2V IMPRESSION: Unremarkable chest exam. Unremarkable lumbar spine exam. Mild anterior spondylosis L5-S1 disc level. Unremarkable AP pelvic exam. Interruption in anterior margin spinal line between S1 and S2 vertebra. Question fracture versus normal variation. Correlate with clinical exam. Rest of the sacrum and coccyx is unremarkable.
--- NOTE | 2020-04-30 10:15 | XR_ITS ---
EXAMINATION: CHEST, LUMBAR SPINE, PELVIS AND SACRUM/COCCYX. CLINICAL INFORMATION: Fall. Trauma. COMPARISON: Chest 12/27/2019 TECHNIQUE: Chest 2 views. Lumbar spine 3 views. Pelvis one view. Sacrum and coccyx 2 views. FINDINGS: Chest: The lungs are well-expanded and clear of acute process. Heart size is normal Enlarged. Pulmonary vascularity is normal. No gross bony abnormality seen. Lumbar spine: There is normal lumbar lordosis. There is loss of L1 superior endplate height. Rest of vertebral heights and alignment is normal. The disc heights are maintained. There is mild ventral spondylosis L5-S1 disc level. AP pelvis: There is normal symmetry of bilateral hip joints and SI joints without any sclerosis or lucency. No acute fracture or dislocation seen. The soft tissues are normal. Sacrum/coccyx: There is interruption of anterior sacral line between S1 and S2 vertebra on the lateral view. Otherwise the entire sacrum and coccyx appears unremarkable. The soft tissues are normal. XR/XR sacrum coccyx min 2V IMPRESSION: Unremarkable chest exam. Unremarkable lumbar spine exam. Mild anterior spondylosis L5-S1 disc level. Unremarkable AP pelvic exam. Interruption in anterior margin spinal line between S1 and S2 vertebra. Question fracture versus normal variation. Correlate with clinical exam. Rest of the sacrum and coccyx is unremarkable.
--- NOTE | 2020-04-30 10:15 | XR_ITS ---
EXAMINATION: CHEST, LUMBAR SPINE, PELVIS AND SACRUM/COCCYX. CLINICAL INFORMATION: Fall. Trauma. COMPARISON: Chest 12/27/2019 TECHNIQUE: Chest 2 views. Lumbar spine 3 views. Pelvis one view. Sacrum and coccyx 2 views. FINDINGS: Chest: The lungs are well-expanded and clear of acute process. Heart size is normal Enlarged. Pulmonary vascularity is normal. No gross bony abnormality seen. Lumbar spine: There is normal lumbar lordosis. There is loss of L1 superior endplate height. Rest of vertebral heights and alignment is normal. The disc heights are maintained. There is mild ventral spondylosis L5-S1 disc level. AP pelvis: There is normal symmetry of bilateral hip joints and SI joints without any sclerosis or lucency. No acute fracture or dislocation seen. The soft tissues are normal. Sacrum/coccyx: There is interruption of anterior sacral line between S1 and S2 vertebra on the lateral view. Otherwise the entire sacrum and coccyx appears unremarkable. The soft tissues are normal. XR/XR pelvis 1-2V IMPRESSION: Unremarkable chest exam. Unremarkable lumbar spine exam. Mild anterior spondylosis L5-S1 disc level. Unremarkable AP pelvic exam. Interruption in anterior margin spinal line between S1 and S2 vertebra. Question fracture versus normal variation. Correlate with clinical exam. Rest of the sacrum and coccyx is unremarkable.
--- NOTE | 2020-04-30 10:15 | XR_ITS ---
EXAMINATION: CHEST, LUMBAR SPINE, PELVIS AND SACRUM/COCCYX. CLINICAL INFORMATION: Fall. Trauma. COMPARISON: Chest 12/27/2019 TECHNIQUE: Chest 2 views. Lumbar spine 3 views. Pelvis one view. Sacrum and coccyx 2 views. FINDINGS: Chest: The lungs are well-expanded and clear of acute process. Heart size is normal Enlarged. Pulmonary vascularity is normal. No gross bony abnormality seen. Lumbar spine: There is normal lumbar lordosis. There is loss of L1 superior endplate height. Rest of vertebral heights and alignment is normal. The disc heights are maintained. There is mild ventral spondylosis L5-S1 disc level. AP pelvis: There is normal symmetry of bilateral hip joints and SI joints without any sclerosis or lucency. No acute fracture or dislocation seen. The soft tissues are normal. Sacrum/coccyx: There is interruption of anterior sacral line between S1 and S2 vertebra on the lateral view. Otherwise the entire sacrum and coccyx appears unremarkable. The soft tissues are normal. XR/XR lumbar spine 2-3V IMPRESSION: Unremarkable chest exam. Unremarkable lumbar spine exam. Mild anterior spondylosis L5-S1 disc level. Unremarkable AP pelvic exam. Interruption in anterior margin spinal line between S1 and S2 vertebra. Question fracture versus normal variation. Correlate with clinical exam. Rest of the sacrum and coccyx is unremarkable.
--- NOTE | 2020-04-30 10:19 | ED.BACK ---
HPI - Back Pain/Injury General Chief Complaint: Back Pain/Injury Stated Complaint: FALL/ BACK PAIN Time Seen by Provider: 04/30/20 10:15 History of Present Illness HPI Narrative: 59 year-old female past medical history of COPD on 4 L oxygen chronically, diabetes, high cholesterol, congestive heart failure, hypertension, KELLIE here with back pain status post fall. The patient tells me that yesterday she had a slip and fall landing on her back. Denies hitting her head or loss of consciousness. She tells me she was able to crawl to a chair and sat there for several hours and then was able to walk very slowly to her bed where she slept last night. 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 Patient denies any radiation of pain. No numbness or tingling. No bowel or bladder continence. Of note, the patient tells me her shortness of breath which is chronic is slightly worsened over the last few days. No cough. No fevers or chills or chest pain or leg swelling or weight gain. MD elicited complaint: back injury and fall Onset (ago): hour(s) Timing: constant Severity: moderate Quality: sharp Location: lumbar spine and thoracic spine Radiation: none Exacerbating factors: none Relieving factors: none Context: fall Associated symptoms: denies other symptoms Related Data Home Medications Medication Instructions Recorded Confirmed Spiriva with HandiHaler 1 cap INHALATION DAILY 03/08/20 03/13/20 furosemide 1 tab PO QAM 03/08/20 03/13/20 metformin 1 tab PO BID 03/08/20 03/13/20 montelukast 1 tab PO BEDTIME 03/08/20 03/13/20 nicotine (polacrilex) 1 ea PO Q2H PRN 03/08/20 03/13/20 omeprazole 20 mg PO DAILY@0630 03/08/20 03/13/20 quetiapine 1 tab PO BID 03/08/20 03/13/20 sertraline 2 tab PO DAILY 03/08/20 03/13/20 sodium chloride [[place] Saline] 2 drp INTRANASAL Q2H PRN 03/08/20 03/13/20 trazodone 50 - 100 mg PO BEDTIME PRN 03/08/20 03/13/20 Previous Rx's Medication Instructions Recorded amlodipine 5 mg PO DAILY #30 tab 03/11/20 atorvastatin [Lipitor] 20 mg PO BEDTIME #30 tab 03/11/20 doxycycline hyclate 100 mg PO DAILY #6 tab 03/11/20 lisinopril 20 mg PO DAILY #30 tab 03/11/20 prednisone 20 mg PO DAILY #3 tab 03/11/20 ipratropium 0.5 mg-albuterol 3 mg 1 ml INHALATION QID #360 ml 03/14/20 (2.5 mg base)/3 mL nebulization soln carvedilol 12.5 mg tablet 12.5 mg PO BID #60 tab 04/17/20 Allergies Allergy/AdvReac Type Severity Reaction Status Date / Time nicotine [Nicotine] Allergy Unknown ITCHING Verified 03/07/20 10:12 WITH THE PATCHES topiramate Allergy Unknown inadequealte Verified 03/07/20 10:12 response Review of Systems Review of Systems: Yes all other systems are reviewed and are negative Constitutional: Constitutional: Reports no additional constitutional complaints, Denies body ache(s), Denies chills, Denies fever(s), Denies headache(s) and Denies weakness Eyes: Eyes: Reports no additional eye complaints and Denies change in vision ENT: Reports system reviewed and no additional complaints, except as documented, Denies dizziness, Denies headache(s), Denies nasal congestion, Denies nasal discharge and Denies neck pain Cardiovascular: Cardiovascular: Reports no additional cardiovascular complaints, Denies chest pain, Denies leg edema and Reports dyspnea Respiratory: Respiratory: Reports no additional respiratory complaints, Denies cough and Reports dyspnea Gastrointestinal: Gastrointestinal: Reports no additional gastrointestinal complaints, Denies abdominal pain, Denies diarrhea, Denies nausea and Denies vomiting Genitourinary: Genitourinary: Reports no additional female genitourinary complaints and Denies urinary incontinence Musculoskeletal: Musculoskeletal: Reports no additional musculoskeletal complaints, Reports back pain, Denies arthralgias, Denies joint swelling, Denies neck pain, Denies numbness and Denies tingling Integumentary/Breasts: Skin/Breast: Reports system reviewed and no additional complaints, except as docu and Denies rash Neurologic: Reports system reviewed and no additional complaints, except as documented, Denies Abnormal speech present, Denies dizziness, Denies headache(s), Denies numbness, Denies tingling and Denies weakness PMF Past Medical History Attestation statement: The following information was validated with the patient. Source: old records reviewed and nursing notes reviewed Medical History Anxiety Cardiomyopathy Chronic respiratory failure COPD (chronic obstructive pulmonary disease) Depression Diabetes HFrEF (heart failure with reduced ejection fraction) HLD (hyperlipidemia) HTN (hypertension) Mitral regurgitation KELLIE (obstructive sleep apnea) Severe chronic obstructive pulmonary disease Supplemental oxygen dependent Surgical History Bilateral ankle fractures History of total abdominal hysterectomy Family History Family History Father No problems noted. Mother Liver cancer Hypertension Social History Social History Household Members: None Housing: Apartment Alcohol intake: unknown Smoking Status: Current every day smoker Tobacco Type: Cigarette Packs Per Day: 1 Cigarettes Per Day: 10 Second Hand Smoke Exposure: No Use of substances other than those prescribed or required for medical reasons: No Advance Directives: No Advance Directives Information Provided: Yes service: No Current occupational status: disabled Physical Exam Vital Signs: Vital Signs: Last Vital Signs Temp 98.2 F 04/30/20 13:16 Pulse 99 04/30/20 17:14 Resp 18 04/30/20 17:14 BP 173/93 H 04/30/20 17:14 Pulse Ox 95 04/30/20 17:14 Body Mass Index 32.3 Const: General: cooperative, healthy appearing, comfortable and no acute distress Orientation/consciousness: patient oriented x3 Limitations: no limitations HENMT: Head: Yes normal to inspection Ears: hearing grossly normal bilaterally General nose exam: Normal external nose present Face and sinus: Yes normal facial exam Mouth: Normal oral and palatal mucosa present Throat: Yes posterior oropharynx normal Eyes: General: appearance normal, both eyes and all related structures Pupils: Equal, round and reactive pupils present Neck: Neck: Yes normal visual inspection Chest: Chest palpation & inspection: normal inspection of the chest Resp: Other: Patient speaking short sentences, accessory muscle use noted. Inspiratory and expiratory wheezing noted throughout Effort & Inspection: normal respiratory effort Cardio: Rate: regular rate Rhythm: regular rhythm Peripheral pulses: Peripheral pulses 2+ throughout GI: Inspection: Yes normal to inspection Palpation (GI): Soft to palpation and nontender Auscultation: normal bowel sounds Back/Spine/Pelvis: Thoracic/Lumbar Spine: thoracic and lumbar spine normal to inspection and lumbar spinal tenderness (Moderate, entire) Pelvis: Other pelvic findings (Pain with lateral right and left hip palpation. Full range of motion altho) Sacrum: no ecchymosis, no swelling and tenderness Coccyx: no swelling and Coccyx tenderness present Skin: General skin exam: no rashes or lesions noted Neuro: General: patient oriented x3, no focal motor deficits and normal sensation to monofilament Cranial nerves: Yes Equal, round and reactive pupils present Cognition (Neuro): normal cognition Speech: No Abnormal speech present Gait exam (Neuro): Normal gait present Motor exam (neuro): 5/5 motor strength present throughout Extrem: General: Yes normal to inspection Course Course Course Narrative: 59-year-old female here with complaints of back pain status post fall yesterday. Mechanical fall. No head injury or loss of consciousness. Will check imaging of the back, pelvis, hips. Of note, the patient is also noted to be tachycardic with a heart rate of 120 on arrival and mild respiratory distress with inspiratory and expiratory wheezing throughout. She has a history of COPD and CHF and is on 4 L chronically. She tells me she always has shortness of breath but this is slightly increased from her baseline. Will check chest x-ray, EKG, hold labs, give duoneb and solumedrol w/ analgesia for back pain. 1100-QTC 527. Added labs including MG. 1140-Interruption in anterior margin spinal line between S1 and S2 vertebra. Question fracture versus normal variation. Correlate with clinical exam. Rest of the sacrum and coccyx is unremarkable. Will order lumbar CT to r/o unstable fracture. 1240-CT shows superior endplate compression L1, new from prior CT 10/05/2018. No paraspinal soft tissue swelling. There is mild associated endplate sclerosis and anterior spurring which may suggest this is not acute. Additional labs pending. 1330-labs show elevated troponin however this appears chronic for the patient. Less likely ACS with normal EKG and no reports of chest pain. However will check 3 hour troponin. BNP is 1214 however this is much improved from previous. No clinical signs or symptoms of failure. PT evaluation ordered to eval for dispo. 1545-Repeat troponin unchanged. Pending PT evaluation and CM. Respiratory rate improved. Patient does have some mild expiratory wheezing but overall is telling me her shortness of breath is much better. Stable saturations on her home O2. 1700-per Case Management unable to get patient placed today as she does require short-term rehab. Plan for her to stay in the emergency department overnight and get placed in the morning. Patient is aware of this. COVID test is done and negative. MDM - Back Pain/Injury Medical Records Attestation: I reviewed the patient's medical records. Lab Data Attestation: I reviewed the patient's lab results. Result diagrams: 04/30/20 11:27 04/30/20 11:27 Labs: Lab Results 04/30/20 04/30/20 04/30/20 Range/Units 11:27 11:27 11:27 WBC (4.8-10.8) X10*3/uL RBC (4.20-5.50) X10*6/uL Hgb (12.0-16.0) g/dl Hct (37-47) % MCV (80-98) fL MCH (27.0-33.0) pg MCHC (31.0-35.0) g/dl RDW (11.0-16.0) % Plt Count (160-400) X10*3/uL MPV (9.4-12.3) fL Immature Gran % (Auto) (0.0-0.4) % Neut % (Auto) (45-73) % Lymph % (Auto) (20-40) % Cook % (Auto) (2-11) % Eos % (Auto) (0-4) % Baso % (Auto) (0-2) % Lymph # (Auto) (1.2-4.9) X10*3/uL Cook # (Auto) (0.1-1.2) X10*3/uL Eos # (Auto) (0.0-0.4) X10*3/uL Baso # (Auto) (0.0-0.2) X10*3/uL Abs Immat Gran (auto) (0.00-0.03) X10*3/uL Absolute Neuts (auto) (2.0-8.3) X10*3/uL Absolute Nucleated RBC (0.0-0.012) X10*3/uL Nucleated RBC % (auto) (0.0-0.2) /100WBC Hold Purple Top SEE NOTE Hold Blue Top SEE NOTE Sodium (135-145) mmol/L Potassium (3.3-5.1) mmol/l Chloride (96-108) mmol/L Carbon Dioxide (22-29) mmol/L Anion Gap (12-20) BUN (9-16) mg/dL Creatinine (0.5-1.4) mg/dL Estim Creat Clear Calc Estimated GFR Random Glucose (60-115) mg/dL Calcium (8.4-10.2) mg/dL Magnesium (1.6-2.6) mg/dL Total Bilirubin (0.0-1.0) mg/dL Direct Bilirubin (0.0-0.5) mg/dL AST (5-31) U/L ALT (0-31) U/L Alkaline Phosphatase (39-117) U/L Troponin I High Sens (<3.5-17.0) ng/L B-Natriuretic Peptide (<100) pg/mL Total Protein (6.5-8.0) g/dL Albumin (3.5-5.0) g/dL Hold Yellow Top See Note COVID-19 (ANEL) (Negative) COVID-19 Clin Com 04/30/20 04/30/20 04/30/20 Range/Units 11:27 11:27 11:27 WBC 10.0 (4.8-10.8) X10*3/uL RBC 4.36 (4.20-5.50) X10*6/uL Hgb 10.6 L (12.0-16.0) g/dl Hct 35.5 L (37-47) % MCV 81.4 (80-98) fL MCH 24.3 L (27.0-33.0) pg MCHC 29.9 L (31.0-35.0) g/dl RDW 18.1 H (11.0-16.0) % Plt Count 190 (160-400) X10*3/uL MPV 11.0 (9.4-12.3) fL Immature Gran % (Auto) 0.4 (0.0-0.4) % Neut % (Auto) 84.0 H (45-73) % Lymph % (Auto) 10.1 L (20-40) % Cook % (Auto) 4.6 (2-11) % Eos % (Auto) 0.8 (0-4) % Baso % (Auto) 0.1 (0-2) % Lymph # (Auto) 1.0 L (1.2-4.9) X10*3/uL Cook # (Auto) 0.5 (0.1-1.2) X10*3/uL Eos # (Auto) 0.1 (0.0-0.4) X10*3/uL Baso # (Auto) 0.0 (0.0-0.2) X10*3/uL Abs Immat Gran (auto) 0.04 H (0.00-0.03) X10*3/uL Absolute Neuts (auto) 8.4 H (2.0-8.3) X10*3/uL Absolute Nucleated RBC 0.000 (0.0-0.012) X10*3/uL Nucleated RBC % (auto) 0.0 (0.0-0.2) /100WBC Hold Purple Top Hold Blue Top Sodium 141 (135-145) mmol/L Potassium 3.3 (3.3-5.1) mmol/l Chloride 101 (96-108) mmol/L Carbon Dioxide 31 H (22-29) mmol/L Anion Gap 12 (12-20) BUN 12 D (9-16) mg/dL Creatinine 0.83 (0.5-1.4) mg/dL Estim Creat Clear Calc 64.0 Estimated GFR > 60 Random Glucose 146 H (60-115) mg/dL Calcium 8.7 (8.4-10.2) mg/dL Magnesium 2.0 (1.6-2.6) mg/dL Total Bilirubin 0.4 (0.0-1.0) mg/dL Direct Bilirubin 0.2 (0.0-0.5) mg/dL AST 18 (5-31) U/L ALT 12 (0-31) U/L Alkaline Phosphatase 141 H (39-117) U/L Troponin I High Sens 21.1 H (<3.5-17.0) ng/L B-Natriuretic Peptide 1214 H (<100) pg/mL Total Protein 7.5 (6.5-8.0) g/dL Albumin 4.2 (3.5-5.0) g/dL Hold Yellow Top COVID-19 (ANEL) (Negative) COVID-19 Clin Com 04/30/20 04/30/20 Range/Units 13:59 14:42 WBC (4.8-10.8) X10*3/uL RBC (4.20-5.50) X10*6/uL Hgb (12.0-16.0) g/dl Hct (37-47) % MCV (80-98) fL MCH (27.0-33.0) pg MCHC (31.0-35.0) g/dl RDW (11.0-16.0) % Plt Count (160-400) X10*3/uL MPV (9.4-12.3) fL Immature Gran % (Auto) (0.0-0.4) % Neut % (Auto) (45-73) % Lymph % (Auto) (20-40) % Cook % (Auto) (2-11) % Eos % (Auto) (0-4) % Baso % (Auto) (0-2) % Lymph # (Auto) (1.2-4.9) X10*3/uL Cook # (Auto) (0.1-1.2) X10*3/uL Eos # (Auto) (0.0-0.4) X10*3/uL Baso # (Auto) (0.0-0.2) X10*3/uL Abs Immat Gran (auto) (0.00-0.03) X10*3/uL Absolute Neuts (auto) (2.0-8.3) X10*3/uL Absolute Nucleated RBC (0.0-0.012) X10*3/uL Nucleated RBC % (auto) (0.0-0.2) /100WBC Hold Purple Top Hold Blue Top Sodium (135-145) mmol/L Potassium (3.3-5.1) mmol/l Chloride (96-108) mmol/L Carbon Dioxide (22-29) mmol/L Anion Gap (12-20) BUN (9-16) mg/dL Creatinine (0.5-1.4) mg/dL Estim Creat Clear Calc Estimated GFR Random Glucose (60-115) mg/dL Calcium (8.4-10.2) mg/dL Magnesium (1.6-2.6) mg/dL Total Bilirubin (0.0-1.0) mg/dL Direct Bilirubin (0.0-0.5) mg/dL AST (5-31) U/L ALT (0-31) U/L Alkaline Phosphatase (39-117) U/L Troponin I High Sens 23.8 H (<3.5-17.0) ng/L B-Natriuretic Peptide (<100) pg/mL Total Protein (6.5-8.0) g/dL Albumin (3.5-5.0) g/dL Hold Yellow Top COVID-19 (ANEL) Negative (Negative) COVID-19 Clin Com See Note Imaging Data Chest x-ray: Attestation: I personally reviewed and interpreted this imaging study as follows: Radiologist's impression: Unremarkable lumbar spine: Attestation: I personally reviewed and interpreted this imaging study as follows: Radiologist's impression: Unremarkable lumbar spine exam. Mild anterior spondylosis L5-S1 disc level. pelvis xray: Attestation: I personally reviewed and interpreted this imaging study as follows: Radiologist's impression: Unremarkable AP pelvic exam. sacrum/coccyx: Attestation: I personally reviewed and interpreted this imaging study as follows: Radiologist's impression: Interruption in anterior margin spinal line between S1 and S2 vertebra. Question fracture versus normal variation. Correlate with clinical exam. Rest of the sacrum and coccyx is unremarkable. CT lumbar spine: Attestation: I personally reviewed and interpreted this imaging study as follows: Radiologist's impression: EXAMINATION: CT LUMBAR SPINE WITHOUT CONTRAST CLINICAL INFORMATION: Fall, trauma, pain. Loss of height L1. Question hairline fracture anterior S1-S2 on lateral plain film. COMPARISON: Radiographs lumbar spine, pelvis, and sacrum/coccyx 22/12/2019, CT abdomen and pelvis 10/05/2018. TECHNIQUE: CT lumbosacral spine is performed without intravenous or intrathecal contrast in the axial plane from approximately mid aspect T11 through lower aspect S3. Additional reformatted images are generated on the CT workstation in coronal and sagittal planes. This CT examination was performed using dose optimization techniques as appropriate, variously including the following: *Automated exposure control *Adjustment of mA and/or kV according to patient size (this includes techniques or standardized protocols for targeted exams where dose is matched to indication/reason for exam; i.e. extremities or head) *Use of iterative reconstruction technique DLP; 506 mGy-cm FINDINGS: There is normal lumbar segmentation with 5 nonrib-bearing lumbar vertebrae and normal lumbar lordosis. There is accentuated superior endplate concavity at L1 with mild L1 loss of height, superior endplate sclerosis, and anterior vertebral spurring. Finding is new from CT abdomen and pelvis 10/05/2018. There is no visible fracture line or paraspinal soft tissue swelling. The remainder of the vertebral bodies are normal in height. There is no fracture line or other vertebral compressions. No spondylolisthesis or spondylolysis. No perched facet. No significant disc narrowing. There is bridging anterior osteophyte L5-S1. The SI joints are symmetric. The imaged sacrum shows no fracture or destructive process or presacral soft tissue swelling. The abdominal aorta is normal in caliber. No aneurysmal enlargement. There is a cyst upper pole left kidney again seen measuring 2.9 cm and [address]/CT lumbar spine wo con IMPRESSION: 1. Superior endplate compression L1, new from prior CT 10/05/2018. No paraspinal soft tissue swelling. There is mild associated endplate sclerosis and anterior spurring which may suggest this is not acute. Recommend correlation with patient's symptoms and clinical exam. 2. Remainder of lumbar spine and visualized sacrum are unremarkable. 3. Incidental cyst upper pole left kidney again noted. ECG Data Attestation: I personally reviewed and interpreted this ECG as follows: ECG interpretation date: 04/30/20 ECG interpretation time: 10:35 Interpretation: Sinus tachycardia with a rate of 109, nonspecific ST changes, normal OH, QTC 527 Discharge Plan Discharge Clinical Impression: Compression fracture COPD (chronic obstructive pulmonary disease) Qualifiers: COPD type: unspecified COPD Qualified Code(s): J44.9 - Chronic obstructive pulmonary disease, unspecified Patient Disposition: er [facility] Prescriptions: No Action ipratropium-albuterol 0.5 mg-3 mg(2.5 mg base)/3 mL solution for nebulization 1 ml inhalation QID Qty: 360 RF: 6 carvedilol 12.5 mg tablet 12.5 mg PO BID Qty: 60 RF: 3 nicotine (polacrilex) 2 mg gum 1 ea PO Q2H PRN (Reason: Nicotine Cravings) RF: 0 omeprazole 20 mg capsule,delayed release(DR/EC) 20 mg PO DAILY@0630 RF: 0 trazodone 50 mg tablet 50 - 100 mg PO BEDTIME PRN (Reason: Sleep) RF: 0 furosemide 40 mg tablet 1 tab PO QAM RF: 0 sertraline 100 mg tablet 2 tab PO DAILY RF: 0 metformin 1,000 mg tablet 1 tab PO BID RF: 0 montelukast 10 mg tablet 1 tab PO BEDTIME RF: 0 sodium chloride [[place] Saline] 0.65 % aerosol,spray 2 drp intranasal Q2H PRN (Reason: Nasal Congestion) RF: 0 Spiriva with HandiHaler 18 mcg capsule, w/inhalation device 1 cap inhalation DAILY RF: 0 quetiapine 50 mg tablet 1 tab PO BID RF: 0 lisinopril 20 mg Tablet 20 mg PO DAILY Qty: 30 RF: 0 doxycycline hyclate 100 mg tablet 100 mg PO DAILY Qty: 6 RF: 0 prednisone 20 mg tablet 20 mg PO DAILY Qty: 3 RF: 0 amlodipine 5 mg Tablet 5 mg PO DAILY Qty: 30 RF: 0 atorvastatin [Lipitor] 20 mg tablet 20 mg PO BEDTIME Qty: 30 RF: 0
--- NOTE | 2020-04-30 10:20 | ECG_ITS ---
Test Reason : TACHY Blood Pressure : / mmHG Vent. Rate : 109 BPM Atrial Rate : 109 BPM P-R Int : 140 ms QRS Dur : 124 ms QT Int : 392 ms P-R-T Axes : 036 051 -16 degrees QTc Int : 527 ms Sinus tachycardia RSR' or QR pattern in V1 suggests right ventricular conduction delay Nonspecific ST and T wave abnormality Prolonged QTc Abnormal ECG When compared with ECG of 08-MAR-2020 16:58, No significant change was found Referred By: Perla Oconnell Electronically Signed By:NATALIA SHANNON
--- NOTE | 2020-04-30 10:52 | PC.NURSE ---
this rn unable to establish iv access, awaiting assistance from quentin lara
[2020-04-30] MEDS: Albuterol/Iprat 2.5/0.5MG 3 ML AMPUL.NEB INHALE (11:29)
[2020-04-30 11:30] VITALS: PULSE 112; O2SAT 99
--- NOTE | 2020-04-30 11:33 | CT_ITS ---
EXAMINATION: CT LUMBAR SPINE WITHOUT CONTRAST CLINICAL INFORMATION: Fall, trauma, pain. Loss of height L1. Question hairline fracture anterior S1-S2 on lateral plain film. COMPARISON: Radiographs lumbar spine, pelvis, and sacrum/coccyx 22/12/2019, CT abdomen and pelvis 10/05/2018. TECHNIQUE: CT lumbosacral spine is performed without intravenous or intrathecal contrast in the axial plane from approximately mid aspect T11 through lower aspect S3. Additional reformatted images are generated on the CT workstation in coronal and sagittal planes. This CT examination was performed using dose optimization techniques as appropriate, variously including the following: *Automated exposure control *Adjustment of mA and/or kV according to patient size (this includes techniques or standardized protocols for targeted exams where dose is matched to indication/reason for exam; i.e. extremities or head) *Use of iterative reconstruction technique DLP; 506 mGy-cm FINDINGS: There is normal lumbar segmentation with 5 nonrib-bearing lumbar vertebrae and normal lumbar lordosis. There is accentuated superior endplate concavity at L1 with mild L1 loss of height, superior endplate sclerosis, and anterior vertebral spurring. Finding is new from CT abdomen and pelvis 10/05/2018. There is no visible fracture line or paraspinal soft tissue swelling. The remainder of the vertebral bodies are normal in height. There is no fracture line or other vertebral compressions. No spondylolisthesis or spondylolysis. No perched facet. No significant disc narrowing. There is bridging anterior osteophyte L5-S1. The SI joints are symmetric. The imaged sacrum shows no fracture or destructive process or presacral soft tissue swelling. The abdominal aorta is normal in caliber. No aneurysmal enlargement. There is a cyst upper pole left kidney again seen measuring 2.9 cm and [address]/CT lumbar spine wo con IMPRESSION: 1. Superior endplate compression L1, new from prior CT 10/05/2018. No paraspinal soft tissue swelling. There is mild associated endplate sclerosis and anterior spurring which may suggest this is not acute. Recommend correlation with patient's symptoms and clinical exam. 2. Remainder of lumbar spine and visualized sacrum are unremarkable. 3. Incidental cyst upper pole left kidney again noted.
[2020-04-30] MEDS: Morphine Sulfate 4 MG/ML CARTRIDGE IVPUSH (12:05)
[2020-04-30 12:11] LABS: MANUAL DIFF FLAG NO
[2020-04-30] MEDS: 0.9 % Sodium Chloride 500 ML 999 ML IV (12:12)
[2020-04-30 12:14] LABS: Basophils Percent Auto 0.1 % (0-2); Eosinophils Absolute Auto 0.1 X10*3/uL (0.0-0.4); Eosinophils Percent Auto 0.8 % (0-4); Hematocrit 35.5 % (37-47); Hemoglobin 10.6 g/dl (12.0-16.0); Imm Gran Abs Auto 0.04 X10*3/uL (0.00-0.03); Imm Gran Pct Auto 0.4 % (0.0-0.4); Lymphocytes Percent Auto 10.1 % (20-40); Mean Corpuscular HGB Conc 29.9 g/dl (31.0-35.0); Mean Corpuscular Hemoglobin 24.3 pg (27.0-33.0); Mean Corpuscular Volume 81.4 fL (80-98); Monocytes Absolute Auto 0.5 X10*3/uL (0.1-1.2); Monocytes Percent Auto 4.6 % (2-11); Neutrophils Absolute Auto 8.4 X10*3/uL (2.0-8.3); Platelet Count 190 X10*3/uL (160-400); Red Blood Count 4.36 X10*6/uL (4.20-5.50); Red Cell Distribution Width 18.1 % (11.0-16.0)
[2020-04-30 12:36] LABS: Alanine Aminotransferase 12 U/L (0-31); Albumin Level 4.2 g/dL (3.5-5.0); Alkaline Phosphatase 141 U/L (39-117); Anion Gap 12 (12-20); Aspartate Amino Transferase 18 U/L (5-31); Bilirubin Direct 0.2 mg/dL (0.0-0.5); Bilirubin Total 0.4 mg/dL (0.0-1.0); Blood Urea Nitrogen 12 mg/dL (9-16); Calcium 8.7 mg/dL (8.4-10.2); Carbon Dioxide 31 mmol/L (22-29); Chloride 101 mmol/L (96-108); Estimated Glomerular Filt Rate > 60; Glucose Random 146 mg/dL (60-115); Potassium 3.3 mmol/l (3.3-5.1); Sodium 141 mmol/L (135-145); Total Protein 7.5 g/dL (6.5-8.0)
[2020-04-30 12:57] LABS: B Type Natriuretic Peptide 1214 pg/mL (<100); Troponin-I High Sensitivity 21.1 ng/L (<3.5-17.0)
--- NOTE | 2020-04-30 13:15 | PC.NURSE ---
methylprrednisolone infused, pt reporting little better states 9/10 pain at present time, milla kat notified
[2020-04-30 13:16] VITALS: BP 180/87; PULSE 94; RESP 20; TEMP 36.8; O2SAT 95
--- NOTE | 2020-04-30 13:17 | PC.NURSE ---
pt reported feeling better after udn by respiratory
[2020-04-30] MEDS: Cyclobenzaprine HCl 10 MG TABLET PO (13:34)
[2020-04-30] MEDS: Acetaminophen 325 MG TABLET 650 MG PO (13:35)
[2020-04-30] MEDS: oxyCODONE HCl Immed Release 5 MG TABLET PO (13:35)
[2020-04-30] MEDS: Lidocaine 4 % Patch ADH..PATCH 1 PATCH TRANSDERMA (13:44)
[2020-04-30 14:24] LABS: COVID-19 Test Negative (Negative); IDNOW Serial# 9DD0AD1C
--- NOTE | 2020-04-30 15:27 | MHC.CM.ED ---
Met with pt, using an glass cutting machine feeder. Pt uruguayan speaking only. Explained that PT is recommending rehab in a skilled nursing. Pt is agreeable. Has no suggestions. Had rehab years ago at [facility]. Would like to stay local if possible. Explained that beds are very tight due to OVID, but that CM would place referrals locally. Pt denies using any medical equipment in the home and has a daily [employer] for 1 hour in the morning. Brinda Walton is her HCP and PCP ([phone]). HCP is on file. Call placed and message left to call CM. Pt dependent on supplemental O2 at home @4L via nasal cannula. Will follow for D/C needs.
[2020-04-30 15:28] LABS: Troponin-I High Sensitivity 23.8 ng/L (<3.5-17.0)
[2020-04-30 17:14] VITALS: BP 173/93; PULSE 99; RESP 18; O2SAT 95
[2020-04-30 20:00] VITALS: BP 146/98; PULSE 103; RESP 18; O2SAT 97
--- NOTE | 2020-04-30 20:51 | PC.NURSE ---
evelio mayo to order patients home meds.
[2020-04-30 23:58] VITALS: BP 148/98; PULSE 76
[2020-04-30] MEDS: Montelukast Sodium 10 MG TABLET PO (23:58)
[2020-04-30] MEDS: QUEtiapine Fumarate 50 MG TABLET PO (23:58)
[2020-04-30] MEDS: carvediloL 12.5 MG TABLET PO (23:58)
[2020-05-01] VITALS (10 sets, daily range): BP systolic 146–171; BP diastolic 69–105; PULSE 75–90; RESP 17–20; TEMP 36.7–36.8; O2SAT 3–98
[2020-05-01] MEDS: Atorvastatin Calcium 20 MG TABLET PO ×2 (00:01→21:12)
[2020-05-01] MEDS: metFORMIN HCl 1,000 MG TABLET 1000 MG PO ×2 (00:01→09:47)
--- NOTE | 2020-05-01 01:06 | PC.NURSE ---
REPORT GIVEN TO TAWNYA VIZCAINO.
--- NOTE | 2020-05-01 06:52 | PC.NURSE ---
PT AWAKE AND ALERT, SPO2 98% ON 3 LPM. PT HAS EXPIRATORY WHEEXING. RESPIRATORY CALLED FOR EVALUATION AND TREATMENT.
--- NOTE | 2020-05-01 07:58 | PC.NURSE ---
RT IN FOR UPDRAFT. WHEEZING NOTED. AWAITING CASE MGMT
[2020-05-01] MEDS: predniSONE 20 MG TABLET PO (09:46)
[2020-05-01] MEDS: amLODIPine Besylate 5 MG TABLET PO (09:46)
[2020-05-01] MEDS: carvediloL 12.5 MG TABLET PO ×2 (09:46→21:09)
[2020-05-01] MEDS: QUEtiapine Fumarate 50 MG TABLET PO ×2 (09:46→21:11)
[2020-05-01] MEDS: lisinopriL 20 MG TABLET PO (09:47)
[2020-05-01] MEDS: Sertraline HCL 100 MG TABLET 200 MG PO (09:47)
[2020-05-01] MEDS: Furosemide 40 MG TABLET PO (09:47)
[2020-05-01] MEDS: Omeprazole 20 MG CAPSULE.DR PO (09:48)
[2020-05-01] MEDS: Albuterol/Iprat 2.5/0.5MG 3 ML AMPUL.NEB INHALE (11:22)
--- NOTE | 2020-05-01 12:59 | MHC.CM.ED ---
Updated pt x2. Still waiting authorization from [facility]. Spoke with CM. Has re-sent request for authorization. Pt aware. States breathing is improved, although pt appears SOB with minimal exertion. May be pt baseline.
[2020-05-01] MEDS: Montelukast Sodium 10 MG TABLET PO (21:16)
[2020-05-02] VITALS (11 sets, daily range): BP systolic 140–195; BP diastolic 79–108; PULSE 14–88; RESP 14–22; TEMP 36.6–36.8; O2SAT 92–99
--- NOTE | 2020-05-02 04:39 | PC.NURSE ---
PATIENT CONTINUES TO SLEEP AT THIS TIME. RESPIRATIONS EVEN & UNLABORED. SLEEPING ON LEFT SIDE AT THIS TIME. WILL CONTINUE TO MONITOR.
[2020-05-02] MEDS: Albuterol/Iprat 2.5/0.5MG 3 ML AMPUL.NEB 1 ML INHALE (08:00)
[2020-05-02] MEDS: lisinopriL 20 MG TABLET PO (08:24)
[2020-05-02] MEDS: Omeprazole 20 MG CAPSULE.DR PO (08:24)
[2020-05-02] MEDS: Sertraline HCL 100 MG TABLET 200 MG PO (08:24)
[2020-05-02] MEDS: carvediloL 12.5 MG TABLET PO (08:25)
[2020-05-02] MEDS: predniSONE 20 MG TABLET PO (08:25)
[2020-05-02] MEDS: Furosemide 40 MG TABLET PO (08:25)
[2020-05-02] MEDS: QUEtiapine Fumarate 50 MG TABLET PO (08:25)
[2020-05-02] MEDS: amLODIPine Besylate 5 MG TABLET PO (08:26)
--- NOTE | 2020-05-02 09:03 | MHC.CM.ED ---
Report from Millie VIZCAINO that pt is very frustrated with wait for bed. RN tells CM that pt may opt to go home if authorization doesn't come soon. Message left through [employer] at [facility] regarding status of authorization. Will speak with patient and follow for d/c teaching
--- NOTE | 2020-05-02 10:00 | MHC.CM.ED ---
No word on authorization yet. Spoke with [facility] member services provider line ([phone]) regarding status of auth request. Per [facility], no request for authorization exists for this pt. Appears that fax number was incorrect. Tracy Teague sent auth request to [phone]. CORRECT fax [phone]. Corrected fax number sent to Mabel via [employer].
--- NOTE | 2020-05-02 11:10 | MHC.CM.ED ---
Spoke with Raquel at [facility] via [employer], sent authorization to emergent fax line at [phone] and received confirmation of fax arrival. Continuing to wait for authorization. Will follow for d/c needs
--- NOTE | 2020-05-02 12:31 | PC.NURSE ---
Pt requesting to leave, case management at bedside w/ billing typist- pt now willing to stay longer. Pt up to recliner and plan to medicate for pain w/ prns.
[2020-05-02] MEDS: oxyCODONE HCl Immed Release 5 MG TABLET PO (12:33)
--- NOTE | 2020-05-02 13:16 | MHC.CM.ED ---
Pt requesting to leave at 12:15. Spoke with pt via translator interpreter, begging her to stay just a bit longer. Explained that insurance paperwork sent successfully at 11am and that it should not be much longer. Pt agreeable. In pain. Has not had pain meds. Requesting recliner, water and crackers. made aware of pain med request. Given water and crackers. Will look for recliner. At 1300, met with pt again via translator interpreter to inform her that her insurance has been accepted and approved for 14 days. Transportation via ambulance for 3pm. Pt very happy. States pain improved. OOB to recliner. Awaiting d/c to [facility] for STR.
--- NOTE | 2020-05-02 14:09 | PC.NURSE ---
nurse to nurse given to mane (quentin) at [facility]. pt aware of plan of care for transfer via ambulance.
== END 2020-05-02 22:30 | disposition skilled nursing facility (03) ==
PROVIDERS: Nurse Practitioner Family; Emergency Provider Emergency Medicine Emergency Medical Services; PCP Internal Medicine
DX: M48.56XA Collapsed vertebra, not elsewhere classified, lumbar region, initial encounter for fracture (principal); J44.9 Chronic obstructive pulmonary disease, unspecified; I10 Essential (primary) hypertension; E11.9 Type 2 diabetes mellitus without complications; Z99.81 Dependence on supplemental oxygen; Z79.899 Other long term (current) drug therapy; F17.210 Nicotine dependence, cigarettes, uncomplicated; Z71.6 Tobacco abuse counseling; Z20.828 Contact with and (suspected) exposure to other viral communicable diseases
CPT/HCPCS: 36415; 71046; 72100; 72131; 72170; 72220; 80048; 80076; 83735; 83880; 84484; 85025; 87635; 93005; 94640; 97162; 99285; J2270; J2930

== ENCOUNTER 2020-05-09 10:05 | Emergency (ER) | payer OTHER, SELFPAY ==
[2020-05-09 10:21] VITALS: BP 162/75; BP 168/74; PULSE 89; PULSE 92; RESP 16; TEMP 36.7; O2SAT 100; O2SAT 96; BMI 32.3
--- NOTE | 2020-05-09 10:34 | PC.NURSE ---
PT HAD BEEN SEEN HERE LAST WEEK, WENT TO SHORT TERM REHAB, THEN HOME, PT REQUESTING TO BE SENT HOME WITH MEDICATION FOR PAIN AND NOT SENT TO REHAB PER JARROD LOPEZ PT STATES SHE IS SAFE AT HOME, [facility] IS ACTIVE
--- NOTE | 2020-05-09 10:35 | ED_ITS ---
HPI - Back Pain/Injury General Chief Complaint: Back Pain/Injury Stated Complaint: fall last week, leg/back pain Time Seen by Provider: 05/09/20 10:08 Source: patient and EMS Mode of arrival: EMS Limitations: language barrier (Eritrean-speaking) History of Present Illness HPI Narrative: 59 year-old female past medical history of COPD on 4 L oxygen chronically, DM, CHF, mitral regurg, cardiomyopathy, HTN, HLD, KELLIE here with worsening back pain radiating down to her left lower extremity since she fell when she was seen here. Patient was seen here 2 weeks ago and was sent to a rehab and she reports she left against medical advice due to no one spoke Eritrean there and they were trying to make her take medications that she usually did not take despite being prescribed to her. She reports that the 5 mg oxycodone prescription that she was given from here she does not believe she even received the medications. Patient had a CT scan of lumbar spine which revealed superior endplate compression L1 no paraspinous soft tissue swelling she has some sclerosis and anterior spurring which was not acute. The rest of the lumbar spine and visualized sacrum were unremarkable. Denies any new injuries complaints or concerns. Denies any recent falls. Denies any other injuries complaints or concerns at this time. Patient very tearful reports that she does not want to go back to assisted she just wants a have something to relieve her pain and be sent back home. She reports she feels safe at home and can care for herself at home. Related Data Home Medications Medication Instructions Recorded Confirmed Spiriva with HandiHaler 1 cap INHALATION DAILY 03/08/20 04/30/20 furosemide 1 tab PO QAM 03/08/20 04/30/20 metformin 1 tab PO BID 03/08/20 04/30/20 montelukast 1 tab PO BEDTIME 03/08/20 04/30/20 nicotine (polacrilex) 1 ea PO Q2H PRN 03/08/20 04/30/20 omeprazole 20 mg PO DAILY@0630 03/08/20 04/30/20 quetiapine 1 tab PO BID 03/08/20 04/30/20 sertraline 2 tab PO DAILY 03/08/20 04/30/20 trazodone 50 - 100 mg PO BEDTIME PRN 03/08/20 04/30/20 Previous Rx's Medication Instructions Recorded amlodipine 5 mg PO DAILY #30 tab 03/11/20 atorvastatin [Lipitor] 20 mg PO BEDTIME #30 tab 03/11/20 lisinopril 20 mg PO DAILY #30 tab 03/11/20 prednisone 20 mg PO DAILY #3 tab 03/11/20 ipratropium 0.5 mg-albuterol 3 mg 1 ml INHALATION QID #360 ml 03/14/20 (2.5 mg base)/3 mL nebulization soln carvedilol 12.5 mg tablet 12.5 mg PO BID #60 tab 04/17/20 albuterol sulfate 4 inh INHALATION QID #18 g 05/02/20 oxycodone 5 mg PO Q6H PRN #30 tab 05/02/20 oxycodone 5 mg PO BID PRN #15 tab 05/09/20 Allergies Allergy/AdvReac Type Severity Reaction Status Date / Time nicotine [Nicotine] Allergy Unknown ITCHING Verified 03/07/20 10:12 WITH THE PATCHES topiramate Allergy Unknown inadequealte Verified 03/07/20 10:12 response Review of Systems Review of Systems: Constitutional : No trauma, No Weight loss, No Fever, No Chills, ENT/Mouth : No Hearing loss, No Ear Pain, No Nasal Congestion, No Sinus Pain, No Hoarseness, No sore throat, No Rhinorrhea, No Swallowing Difficulty Cardiovascular : No Chest Pain, No SOB Respiratory : No Cough, No Dyspnea Gastrointestinal : No Nausea, No Vomiting, No Diarrhea, No abdominal Pain, No Hematochezia, No Melena Genitourinary : No Dysuria, No Urinary Frequency, No Hematuria, No Urinary or Bowel Incontinence/retention Musculoskeletal : + Back pain, No neck pain, No joint stiffness, No joint swelling Skin : No Skin Lesions, No rash or signs of infection Neuro : No Weakness, No radiation, No Numbness, No Paresthesias, No headache, no loss of bowel or bladder incontinence, no saddle anesthesia Denies history of IV drug usage. Yes all other systems are reviewed and are negative PMFSH Past Medical History Attestation statement: The following information was validated with the patient. Medical History Anxiety Cardiomyopathy Chronic respiratory failure COPD (chronic obstructive pulmonary disease) Depression Diabetes HFrEF (heart failure with reduced ejection fraction) HLD (hyperlipidemia) HTN (hypertension) Mitral regurgitation KELLIE (obstructive sleep apnea) Severe chronic obstructive pulmonary disease Supplemental oxygen dependent Surgical History Bilateral ankle fractures History of total abdominal hysterectomy Family History Family History Father No problems noted. Mother Liver cancer Hypertension Social History Social History Household Members: None Housing: Apartment Alcohol intake: unknown Smoking Status: Current every day smoker Tobacco Type: Cigarette Packs Per Day: 1 Cigarettes Per Day: 10 Second Hand Smoke Exposure: No Advance Directives: No Advance Directives Information Provided: No service: No Current occupational status: disabled Physical Exam Vital Signs: Vital Signs: Last Vital Signs Temp 98.0 F 05/09/20 10:21 Pulse 89 05/09/20 10:21 Resp 16 05/09/20 10:21 BP 162/75 H 05/09/20 10:21 Pulse Ox 100 05/09/20 10:21 Body Mass Index 32.3 vital signs have been reviewed as normal and appeared to be correct. Blood pressure normal. Heart rate normal. Respiration rate normal. Temperature normal. Oxygen saturation normal. Appearance: Alert. Oriented X3. No acute distress. Head: Normal external exam. Normocephalic. Atraumatic. No Taylor signs noted. No raccoon eyes noted Eyes: PERRLA. EOMI. Conjunctiva and sclera normal. Eyelids normal. ENT: EAC normal. TM's Normal. Pharynx normal. Uvula midline. Moist mucous membranes. No trismus noted. No drooling noted. No muffled voice noted. Neck: Normal inspection. Neck supple. FROM. No adenopathy. Thyroid Normal. No meningeal signs. No neck mass noted. CVS: Normal heart rate and rhythm. Heart sound normal. No murmurs noted. Pulses normal throughout. Respiratory: No respiratory distress. Painless inspiration. Breath sounds normal. No wheezes/rales/rhonchi noted. Chest nontender. No accessory muscle usage noted or decreased air movement noted. Abdomen: Soft and nontender. Bowel sounds normal in all 4 quadrants. No distention noted. No organomegaly noted. No visible injury noted. Back: No CVA tenderness. Full range of motion noted. No obvious deformities, or edema. Mild para-spinal muscular tenderness from lumbar region to coccyx. Full ROM in back and lower extremities. 5/5 strength hip extension/flexion, abduction, adduction. Mild Lumbar pain with hip flexion against resistance. Straight leg raise test negative on right; Straight leg raise test negative on left; Reflexes normal ankle and knee bilaterally; EHL motor strength normal bilaterally Skin: Skin warm and dry. Normal skin color. Normal skin turgor. No rashes/lesions/lacerations noted. Extremities: No lower extremity edema. Extremities exhibit normal range of motion. Extremities nontender. Neuro: Oriented X 3. No motor deficit. No sensory deficit. Reflexes normal. Course Course Course Narrative: Pt c likely muscular pain, but could be herniated disc. Neuro exam shows no deficits. Not c/w AAA/epidural abscess/dissection.No high risk Hx (Incont, fever, immunosupp, recent surgery/LP, coag, signif trauma, wt loss, puls mass, hx/o Ca, TB, or IVDU) to warrant MRI/CT today. Not c/w Pyelo/UTI/kidney stone/spinal fx. Not cauda equina syndrome. DC c meds and f/u. MDM - Back Pain/Injury Medical Records Attestation: I reviewed the patient's medical records. Discharge Plan Discharge Clinical Impression: Back pain, Back muscle spasm, Compression fracture of L1 lumbar vertebra Patient Disposition: Home, Self-Care Instructions: Lower Back Exercises (ED) Additional Instructions: Usted debe hacer un seguimiento con benjamin proveedor de atenci?n primaria para un tratamiento de evaluaci?n adicional para benjamin dolor de espalda en benjamin fractura por compresi?n L1 junto con otras recetas para cualquier narc?ticos que ya haya recibido 2 del departamento de emergencias. Usted debe seguir con [facility] y el m?dico deportivo en [address] [place] [address] en [phone]. Regrese si tiene s?ntomas nuevos o que empeoran. You should follow-up with her primary care provider for further evaluation treatment for your back pain in your L1 compression fracture along with further prescriptions for any narcotics have you already received 2 from the emergency department. You should follow-up with [facility] and sports physician at [address] [place] [address] at [phone]. Return if you have any new or worsening symptoms. Prescriptions: New oxycodone 5 mg tablet 5 mg PO BID PRN (Reason: pain) Qty: 15 RF: 0 No Action ipratropium-albuterol 0.5 mg-3 mg(2.5 mg base)/3 mL solution for nebulization 1 ml inhalation QID Qty: 360 RF: 6 carvedilol 12.5 mg tablet 12.5 mg PO BID Qty: 60 RF: 3 nicotine (polacrilex) 2 mg gum 1 ea PO Q2H PRN (Reason: Nicotine Cravings) RF: 0 omeprazole 20 mg capsule,delayed release(DR/EC) 20 mg PO DAILY@0630 RF: 0 trazodone 50 mg tablet 50 - 100 mg PO BEDTIME PRN (Reason: Sleep) RF: 0 furosemide 40 mg tablet 1 tab PO QAM RF: 0 sertraline 100 mg tablet 2 tab PO DAILY RF: 0 metformin 1,000 mg tablet 1 tab PO BID RF: 0 montelukast 10 mg tablet 1 tab PO BEDTIME RF: 0 Spiriva with HandiHaler 18 mcg capsule, w/inhalation device 1 cap inhalation DAILY RF: 0 quetiapine 50 mg tablet 1 tab PO BID RF: 0 lisinopril 20 mg Tablet 20 mg PO DAILY Qty: 30 RF: 0 prednisone 20 mg tablet 20 mg PO DAILY Qty: 3 RF: 0 amlodipine 5 mg Tablet 5 mg PO DAILY Qty: 30 RF: 0 atorvastatin [Lipitor] 20 mg tablet 20 mg PO BEDTIME Qty: 30 RF: 0 albuterol sulfate 90 mcg/actuation HFA aerosol inhaler 4 inh inhalation QID Qty: 18 RF: 0 oxycodone 5 mg tablet 5 mg PO Q6H PRN (Reason: pain) Qty: 30 RF: 0 Referrals: Analisa Carr MD [Primary Care Provider] - 2 days (For further narcotic prescriptions) Print Language: Uzbek
[2020-05-09] MEDS: oxyCODONE HCl Immed Release 5 MG TABLET PO (10:39)
== END 2020-05-09 11:22 | disposition home or self-care (01) ==
PROVIDERS: Emergency Provider Emergency Medicine; PCP Internal Medicine
DX: M48.56XA Collapsed vertebra, not elsewhere classified, lumbar region, initial encounter for fracture (principal); M54.5 Low back pain; F17.210 Nicotine dependence, cigarettes, uncomplicated; Z71.6 Tobacco abuse counseling; Z79.899 Other long term (current) drug therapy
CPT/HCPCS: 99283

== ENCOUNTER 2020-05-12 13:13 | Emergency (ER) | payer OTHER, SELFPAY ==
[2020-05-12 13:30] VITALS: BP 109/85; PULSE 110; RESP 18; TEMP 37.3; O2SAT 94; BMI 33.4
--- NOTE | 2020-05-12 13:37 | ED_ITS ---
HPI - Dizziness General Chief Complaint: Dizziness Stated Complaint: dizzy x1 week Time Seen by Provider: 05/12/20 13:30 Source: patient and EMS Mode of arrival: EMS History of Present Illness HPI Narrative: 59 year-old female past medical history of COPD on 4 L oxygen chronically, diabetes, high cholesterol, congestive heart failure, hypertension, KELLIE BIBA for acute on chronic worsening back pain S/P fall on 04/30 which she was evaluated in the emergency department for. After eval on 04/30 patient was sent to short-term rehab, left AMA, then seen again in ED on 05/09/2020 for similar symptoms and d/c home with oxycodone, reports oxycodone is not helping with pain. Also reports positional dizziness, denies dizziness at present. Denies new or more recent falls from initial injury, numbness, tingling, weakness, urinary incontinence/retention, fever, chest pain, new or worsening shortness of breath, headache States she is not interested in short-term rehab tonight MD elicited complaint: dizziness Related Data Home Medications Medication Instructions Recorded Confirmed Spiriva with HandiHaler 1 cap INHALATION DAILY 03/08/20 04/30/20 furosemide 1 tab PO QAM 03/08/20 04/30/20 metformin 1 tab PO BID 03/08/20 04/30/20 montelukast 1 tab PO BEDTIME 03/08/20 04/30/20 nicotine (polacrilex) 1 ea PO Q2H PRN 03/08/20 04/30/20 omeprazole 20 mg PO DAILY@0630 03/08/20 04/30/20 quetiapine 1 tab PO BID 03/08/20 04/30/20 sertraline 2 tab PO DAILY 03/08/20 04/30/20 trazodone 50 - 100 mg PO BEDTIME PRN 03/08/20 04/30/20 Previous Rx's Medication Instructions Recorded amlodipine 5 mg PO DAILY #30 tab 03/11/20 atorvastatin [Lipitor] 20 mg PO BEDTIME #30 tab 03/11/20 lisinopril 20 mg PO DAILY #30 tab 03/11/20 prednisone 20 mg PO DAILY #3 tab 03/11/20 ipratropium 0.5 mg-albuterol 3 mg 1 ml INHALATION QID #360 ml 03/14/20 (2.5 mg base)/3 mL nebulization soln carvedilol 12.5 mg tablet 12.5 mg PO BID #60 tab 04/17/20 albuterol sulfate 4 inh INHALATION QID #18 g 05/02/20 oxycodone 5 mg PO Q6H PRN #30 tab 05/02/20 oxycodone 5 mg PO BID PRN #15 tab 05/09/20 meclizine 25 mg tablet 25 mg PO TID PRN 30 Days #90 tab 05/10/20 baclofen 10 mg tablet 10 mg PO TID 7 Days #21 tab 05/11/20 Allergies Allergy/AdvReac Type Severity Reaction Status Date / Time nicotine [Nicotine] Allergy Unknown ITCHING Verified 03/07/20 10:12 WITH THE PATCHES topiramate Allergy Unknown inadequealte Verified 03/07/20 10:12 response Review of Systems Review of Systems: Constitutional: No Weight loss, No Fever, No Chills Cardiovascular: No Chest Pain, No SOB, No Dyspnea on Exertion Respiratory: No Cough, No Dyspnea Gastrointestinal: No Nausea, No Vomiting, No Diarrhea, No Constipation, No Abdominal pain Genitourinary: No Urinary Incontinence/retention, No Urinary Flow Changes Musculoskeletal: +low back pain Skin: No Skin Lesions, No rash Neuro: No Weakness, No Numbness, No Paresthesias, +dizziness (resolved) Yes all other systems are reviewed and are negative Neurologic: Denies Sensory deficit (Neuro) [facility] Past Medical History Attestation statement: The following information was validated with the patient. Medical History Anxiety Cardiomyopathy Chronic respiratory failure COPD (chronic obstructive pulmonary disease) Depression Diabetes HFrEF (heart failure with reduced ejection fraction) HLD (hyperlipidemia) HTN (hypertension) Mitral regurgitation KELLIE (obstructive sleep apnea) Severe chronic obstructive pulmonary disease Supplemental oxygen dependent Surgical History Bilateral ankle fractures History of total abdominal hysterectomy Family History Family History Father No problems noted. Mother Liver cancer Hypertension Social History Social History Household Members: None Housing: Apartment Alcohol intake: unknown Smoking Status: Current every day smoker Tobacco Type: Cigarette Packs Per Day: 1 Cigarettes Per Day: 10 Second Hand Smoke Exposure: No Advance Directives: No Advance Directives Information Provided: No service: No Current occupational status: disabled Physical Exam Vital Signs: Vital Signs: Last Vital Signs Temp 99.1 F 05/12/20 13:30 Pulse 96 05/12/20 16:42 Resp 18 05/12/20 16:42 BP 169/100 H 05/12/20 16:24 Pulse Ox 94 05/12/20 16:42 Body Mass Index 33.4 Const: General: cooperative, healthy appearing and no acute distress Orientation/consciousness: patient oriented x3 Limitations: no limitations HENMT: Head: Yes normal to inspection Ears: hearing grossly normal bilaterally General nose exam: Normal external nose present Face and sinus: Yes normal facial exam Eyes: General: appearance normal, both eyes and all related structures EOM: EOMs intact bilaterally Neck: Neck: Yes normal visual inspection Resp: Effort & Inspection: normal respiratory effort Auscultation: clear to auscultation bilaterally, no crackles and no wheezes Cardio: Rate: regular rate Heart sounds: S1 normal heart sound present and S2 normal heart sound present GI: Inspection: Yes normal to inspection Palpation (GI): Soft to palpation, nontender, no guarding and not rigid Back/Spine/Pelvis: Other: No midline thoracic/lumbar spinous tenderness + thoracic paraspinal MSK tenderness. No deformity, no step-offs, no fluctuance or induration Skin: Rashes: no rashes Wounds: no wounds Neuro: Other: No saddle anesthesia, strength intact throughout General: patient oriented x3, tone normal, moves all extremities and no focal motor deficits Motor exam (neuro): 5/5 motor strength present throughout Sensory Exam: No Sensory deficit (Neuro) Coordination: [id number] test normal Extrem: General: Yes normal to inspection Course Course Course Narrative: * Labs at patient's baseline. Initial troponin 21.6 which appears to be chronic > due to dizziness will obtain 3hr repeat * Chest x-ray showing mild bibasilar atelectasis. * 1851-orthostatic vital signs negative * 192-repeat troponin 33 > greater than 50% delta, cardiology consulted. Spoke to Dr. Curry, acute AK unlikely. Patient continues to deny chest pain. Reports overall symptomatic improvement in the ED. discussed with patient with seismic interpreter going to short-term rehab/obtaining PT evaluation as she lives at home alone. She would like to go to different short-term rehab /Liberian speaking facility but is agreeable to stay for placement 2100-- ED care transerred to JARROD Argueta pending CM/PT MDM - Dizziness MDM Narrative Medical decision making narrative: 59 year-old female past medical history of COPD on 4 L oxygen chronically, diabetes, high cholesterol, congestive heart failure, hypertension, KELLIE BIBA for acute on chronic worsening back pain S/P fall on 04/30 which she was evaluated in the emergency department for. On exam mildly tachycardic likely from pain, NAD/nontoxic appearing, no midline spinous tenderness throughout,+ paraspinal MSK tenderness. No focal neuro deficits. Likely MSK pain and BVVP. No red flag symptoms. Denies dizziness at presnt. Low concern for cauda equina/cord compression, abscess, CVA, or ACS. Plan: EKG, labs, CXR, orthostatics, symptomatic treatment, PT/case management evaluation Lab Data Result diagrams: 05/12/20 14:14 05/12/20 14:14 Labs: Lab Results 05/12/20 05/12/20 05/12/20 Range/Units 14:14 14:14 14:14 WBC 11.2 H (4.8-10.8) X10*3/uL RBC 4.33 (4.20-5.50) X10*6/uL Hgb 10.7 L (12.0-16.0) g/dl Hct 35.9 L (37-47) % MCV 82.9 (80-98) fL MCH 24.7 L (27.0-33.0) pg MCHC 29.8 L (31.0-35.0) g/dl RDW 18.7 H (11.0-16.0) % Plt Count 215 (160-400) X10*3/uL MPV 10.7 (9.4-12.3) fL Immature Gran % (Auto) 0.4 (0.0-0.4) % Neut % (Auto) 85.6 H (45-73) % Lymph % (Auto) 7.7 L (20-40) % Harmon % (Auto) 5.5 (2-11) % Eos % (Auto) 0.7 (0-4) % Baso % (Auto) 0.1 (0-2) % Lymph # (Auto) 0.9 L (1.2-4.9) X10*3/uL Harmon # (Auto) 0.6 (0.1-1.2) X10*3/uL Eos # (Auto) 0.1 (0.0-0.4) X10*3/uL Baso # (Auto) 0.0 (0.0-0.2) X10*3/uL Abs Immat Gran (auto) 0.05 H (0.00-0.03) X10*3/uL Absolute Neuts (auto) 9.6 H (2.0-8.3) X10*3/uL Absolute Nucleated RBC 0.000 (0.0-0.012) X10*3/uL Nucleated RBC % (auto) 0.0 (0.0-0.2) /100WBC Hold Blue Top SEE NOTE Sodium 142 (135-145) mmol/L Potassium 3.4 (3.3-5.1) mmol/l Chloride 101 (96-108) mmol/L Carbon Dioxide 32 H (22-29) mmol/L Anion Gap 12 (12-20) BUN 10 (9-16) mg/dL Creatinine 0.74 (0.5-1.4) mg/dL Estim Creat Clear Calc 70.0 Estimated GFR > 60 Random Glucose 154 H (60-115) mg/dL Calcium 8.8 (8.4-10.2) mg/dL Magnesium 1.9 (1.6-2.6) mg/dL Total Bilirubin 0.4 (0.0-1.0) mg/dL Direct Bilirubin 0.3 (0.0-0.5) mg/dL AST 13 (5-31) U/L ALT 10 (0-31) U/L Alkaline Phosphatase 132 H (39-117) U/L Troponin I High Sens (<3.5-17.0) ng/L Total Protein 7.0 (6.5-8.0) g/dL Albumin 3.8 (3.5-5.0) g/dL 05/12/20 05/12/20 Range/Units 14:14 17:24 WBC (4.8-10.8) X10*3/uL RBC (4.20-5.50) X10*6/uL Hgb (12.0-16.0) g/dl Hct (37-47) % MCV (80-98) fL MCH (27.0-33.0) pg MCHC (31.0-35.0) g/dl RDW (11.0-16.0) % Plt Count (160-400) X10*3/uL MPV (9.4-12.3) fL Immature Gran % (Auto) (0.0-0.4) % Neut % (Auto) (45-73) % Lymph % (Auto) (20-40) % Harmon % (Auto) (2-11) % Eos % (Auto) (0-4) % Baso % (Auto) (0-2) % Lymph # (Auto) (1.2-4.9) X10*3/uL Harmon # (Auto) (0.1-1.2) X10*3/uL Eos # (Auto) (0.0-0.4) X10*3/uL Baso # (Auto) (0.0-0.2) X10*3/uL Abs Immat Gran (auto) (0.00-0.03) X10*3/uL Absolute Neuts (auto) (2.0-8.3) X10*3/uL Absolute Nucleated RBC (0.0-0.012) X10*3/uL Nucleated RBC % (auto) (0.0-0.2) /100WBC Hold Blue Top Sodium (135-145) mmol/L Potassium (3.3-5.1) mmol/l Chloride (96-108) mmol/L Carbon Dioxide (22-29) mmol/L Anion Gap (12-20) BUN (9-16) mg/dL Creatinine (0.5-1.4) mg/dL Estim Creat Clear Calc Estimated GFR Random Glucose (60-115) mg/dL Calcium (8.4-10.2) mg/dL Magnesium (1.6-2.6) mg/dL Total Bilirubin (0.0-1.0) mg/dL Direct Bilirubin (0.0-0.5) mg/dL AST (5-31) U/L ALT (0-31) U/L Alkaline Phosphatase (39-117) U/L Troponin I High Sens 21.6 H 33.0 H D (<3.5-17.0) ng/L Total Protein (6.5-8.0) g/dL Albumin (3.5-5.0) g/dL Discharge Plan Discharge Clinical Impression: Back pain Qualifiers: Back pain location: low back pain Chronicity: unspecified Back pain laterality: bilateral Sciatica presence: unspecified whether sciatica present Qualified Code(s): M54.5 - Low back pain Prescriptions: No Action ipratropium-albuterol 0.5 mg-3 mg(2.5 mg base)/3 mL solution for nebulization 1 ml inhalation QID Qty: 360 RF: 6 carvedilol 12.5 mg tablet 12.5 mg PO BID Qty: 60 RF: 3 meclizine 25 mg tablet 25 mg PO TID PRN (Reason: dizziness) 30 Days Qty: 90 RF: 3 baclofen 10 mg tablet 10 mg PO TID 7 Days Qty: 21 RF: 0 nicotine (polacrilex) 2 mg gum 1 ea PO Q2H PRN (Reason: Nicotine Cravings) RF: 0 omeprazole 20 mg capsule,delayed release(DR/EC) 20 mg PO DAILY@0630 RF: 0 trazodone 50 mg tablet 50 - 100 mg PO BEDTIME PRN (Reason: Sleep) RF: 0 furosemide 40 mg tablet 1 tab PO QAM RF: 0 sertraline 100 mg tablet 2 tab PO DAILY RF: 0 metformin 1,000 mg tablet 1 tab PO BID RF: 0 montelukast 10 mg tablet 1 tab PO BEDTIME RF: 0 Spiriva with HandiHaler 18 mcg capsule, w/inhalation device 1 cap inhalation DAILY RF: 0 quetiapine 50 mg tablet 1 tab PO BID RF: 0 lisinopril 20 mg Tablet 20 mg PO DAILY Qty: 30 RF: 0 prednisone 20 mg tablet 20 mg PO DAILY Qty: 3 RF: 0 amlodipine 5 mg Tablet 5 mg PO DAILY Qty: 30 RF: 0 atorvastatin [Lipitor] 20 mg tablet 20 mg PO BEDTIME Qty: 30 RF: 0 albuterol sulfate 90 mcg/actuation HFA aerosol inhaler 4 inh inhalation QID Qty: 18 RF: 0 oxycodone 5 mg tablet 5 mg PO Q6H PRN (Reason: pain) Qty: 30 RF: 0 oxycodone 5 mg tablet 5 mg PO BID PRN (Reason: pain) Qty: 15 RF: 0
--- NOTE | 2020-05-12 13:56 | XR_ITS ---
EXAMINATION: XR CHEST CLINICAL INFORMATION: Chronic COPD, dizziness COMPARISON: Chest radiograph from 03/08/2020 TECHNIQUE: Frontal view of the chest was obtained. FINDINGS: Very mild bibasilar atelectasis. There is no focal consolidation. There is no pneumothorax. Trachea is midline. Cardiomediastinal silhouette is enlarged. Aorta is tortuous. No large pleural effusion. Osseous structures are intact. Soft tissues are unremarkable. XR/XR chest 1V IMPRESSION: 1. Very mild bibasilar atelectasis. 2. Enlarged cardiac silhouette.
--- NOTE | 2020-05-12 13:56 | ECG_ITS ---
Test Reason : DIZZINESS Blood Pressure : / mmHG Vent. Rate : 096 BPM Atrial Rate : 096 BPM P-R Int : 134 ms QRS Dur : 120 ms QT Int : 412 ms P-R-T Axes : 011 023 -19 degrees QTc Int : 520 ms Normal sinus rhythm Non-specific intra-ventricular conduction delay Nonspecific ST abnormality Abnormal ECG When compared with ECG of 30-APR-2020 10:35, No significant change was found Referred By: Fabi Ramírez Electronically Signed By:Kemar Curry
[2020-05-12 14:20] LABS: Basophils Percent Auto 0.1 % (0-2); Eosinophils Absolute Auto 0.1 X10*3/uL (0.0-0.4); Eosinophils Percent Auto 0.7 % (0-4); Hematocrit 35.9 % (37-47); Hemoglobin 10.7 g/dl (12.0-16.0); Imm Gran Abs Auto 0.05 X10*3/uL (0.00-0.03); Imm Gran Pct Auto 0.4 % (0.0-0.4); Lymphocytes Absolute Auto 0.9 X10*3/uL (1.2-4.9); Lymphocytes Percent Auto 7.7 % (20-40); MANUAL DIFF FLAG NO; Mean Corpuscular HGB Conc 29.8 g/dl (31.0-35.0); Mean Corpuscular Hemoglobin 24.7 pg (27.0-33.0); Mean Corpuscular Volume 82.9 fL (80-98); Mean Platelet Volume 10.7 fL (9.4-12.3); Monocytes Absolute Auto 0.6 X10*3/uL (0.1-1.2); Monocytes Percent Auto 5.5 % (2-11); Neutrophils Absolute Auto 9.6 X10*3/uL (2.0-8.3); Neutrophils Percent Auto 85.6 % (45-73); Platelet Count 215 X10*3/uL (160-400); Red Blood Count 4.33 X10*6/uL (4.20-5.50); Red Cell Distribution Width 18.7 % (11.0-16.0); White Blood Count 11.2 X10*3/uL (4.8-10.8)
[2020-05-12 14:50] LABS: Alanine Aminotransferase 10 U/L (0-31); Albumin Level 3.8 g/dL (3.5-5.0); Alkaline Phosphatase 132 U/L (39-117); Anion Gap 12 (12-20); Aspartate Amino Transferase 13 U/L (5-31); Bilirubin Direct 0.3 mg/dL (0.0-0.5); Bilirubin Total 0.4 mg/dL (0.0-1.0); Blood Urea Nitrogen 10 mg/dL (9-16); Calcium 8.8 mg/dL (8.4-10.2); Carbon Dioxide 32 mmol/L (22-29); Chloride 101 mmol/L (96-108); Estimated Glomerular Filt Rate > 60; Glucose Random 154 mg/dL (60-115); Magnesium 1.9 mg/dL (1.6-2.6); Potassium 3.4 mmol/l (3.3-5.1); Sodium 142 mmol/L (135-145)
[2020-05-12 15:03] LABS: Troponin-I High Sensitivity 21.6 ng/L (<3.5-17.0)
[2020-05-12] MEDS: Cyclobenzaprine HCl 10 MG TABLET PO (15:16)
[2020-05-12] MEDS: Ketorolac Tromethamine 15 MG/ML VIAL IV (15:16)
[2020-05-12] MEDS: Meclizine HCl 25 MG TABLET PO (15:16)
[2020-05-12 16:21] VITALS: BP 166/103; PULSE 97
[2020-05-12 16:22] VITALS: BP 162/114; PULSE 102
[2020-05-12 16:24] VITALS: BP 169/100; PULSE 107
[2020-05-12 16:42] VITALS: PULSE 96; RESP 18; O2SAT 94
[2020-05-12] MEDS: Lidocaine 4 % Patch ADH..PATCH 1 PATCH TRANSDERMA (18:28)
[2020-05-12] MEDS: Acetaminophen 325 MG TABLET 650 MG PO (18:28)
[2020-05-13] VITALS (15 sets, daily range): BP systolic 119–151; BP diastolic 68–91; PULSE 79–97; RESP 14–24; TEMP 36.7–36.8; O2SAT 2–98
[2020-05-13] MEDS: lisinopriL 20 MG TABLET PO (09:58)
[2020-05-13] MEDS: Sertraline HCL 100 MG TABLET 200 MG PO (09:58)
[2020-05-13] MEDS: carvediloL 12.5 MG TABLET PO ×2 (09:58→21:47)
[2020-05-13] MEDS: Atorvastatin Calcium 20 MG TABLET PO ×2 (09:58→21:47)
[2020-05-13] MEDS: metFORMIN HCl 1,000 MG TABLET 1000 MG PO ×2 (09:58→17:09)
[2020-05-13] MEDS: amLODIPine Besylate 5 MG TABLET PO (09:59)
[2020-05-13] MEDS: Furosemide 40 MG TABLET PO (09:59)
[2020-05-13] MEDS: Omeprazole 20 MG CAPSULE.DR PO (09:59)
[2020-05-13] MEDS: QUEtiapine Fumarate 50 MG TABLET PO ×2 (09:59→21:47)
[2020-05-13] MEDS: predniSONE 20 MG TABLET PO (09:59)
[2020-05-13] MEDS: Baclofen 10 MG TABLET PO ×3 (10:00→21:56)
[2020-05-13] MEDS: Montelukast Sodium 10 MG TABLET PO (10:00)
[2020-05-13] MEDS: Albuterol Sulfate 90 MCG 8 GM INHALER 4 PUFF INHALE ×3 (10:04→17:04)
[2020-05-14] VITALS (8 sets, daily range): BP systolic 131–151; BP diastolic 72–90; PULSE 77–109; RESP 14–21; O2SAT 93–100
[2020-05-14] MEDS: Omeprazole 20 MG CAPSULE.DR PO (06:53)
--- NOTE | 2020-05-14 07:53 | PC.NURSE ---
pt resting on the side, pt refusing to eat her breakfast at this time, states she is not hungry, is upset that she has been in the ed since thursday. pt states she wants to go home. spoke with case management about this new cancers from the pt.
[2020-05-14] MEDS: amLODIPine Besylate 5 MG TABLET PO (08:06)
[2020-05-14] MEDS: predniSONE 20 MG TABLET PO (08:06)
[2020-05-14] MEDS: QUEtiapine Fumarate 50 MG TABLET PO (08:06)
[2020-05-14] MEDS: carvediloL 12.5 MG TABLET PO (08:07)
[2020-05-14] MEDS: Furosemide 40 MG TABLET PO (08:07)
[2020-05-14] MEDS: Baclofen 10 MG TABLET PO (08:07)
[2020-05-14] MEDS: lisinopriL 20 MG TABLET PO (08:07)
[2020-05-14] MEDS: Sertraline HCL 100 MG TABLET 200 MG PO (08:08)
[2020-05-14 08:10] LABS: Glucose, Whole Blood 91 mg/dL (60-115)
--- NOTE | 2020-05-14 08:15 | PC.NURSE ---
pt refused her metformin, states she does not like it
--- NOTE | 2020-05-14 09:49 | MHC.CM.ED ---
Spoke with pt via ostomy care nurse. Pt adamantly refuses to go to [facility]. Would be agreeable to home PT through the [facility]. Otherwise wants to go home. [place] text to PT. Pt refusing to take her metformin. States pills too big. Spoke to her about crushing them. States her diabetes is fine. Explained that successful management of diabetes. Pt clearly does not want diabetes education and was frustrated with conversation. Per pt, transportation home would be by ambulance. Will follow for d/c needs
--- NOTE | 2020-05-14 10:01 | MHC.CM.ED ---
PT continues to recommend STR, but tells CM it's up to the patient, but they recommend STR. [facility] Transportation will be by chair van.
--- NOTE | 2020-05-14 12:26 | PC.NURSE ---
pt discharged home with [facility]. covid specimen sent as requested by [facility]
[2020-05-14 12:43] LABS: COVID-19 Test Negative (Negative); IDNOW Serial# 9DD0AD1C
--- NOTE | 2020-05-14 13:55 | MHC.CM.ED ---
[facility] has accepted. Pt d/c home already
== END 2020-05-14 12:37 | disposition home or self-care (01) ==
PROVIDERS: Physician Assistant; Emergency Provider Emergency Medicine; PCP Internal Medicine
DX: M54.5 Low back pain (principal); Z20.828 Contact with and (suspected) exposure to other viral communicable diseases; E11.9 Type 2 diabetes mellitus without complications; I11.0 Hypertensive heart disease with heart failure; I50.9 Heart failure, unspecified; F17.210 Nicotine dependence, cigarettes, uncomplicated; J44.9 Chronic obstructive pulmonary disease, unspecified; Z99.81 Dependence on supplemental oxygen; Z79.84 Long term (current) use of oral hypoglycemic drugs; Z79.899 Other long term (current) drug therapy
CPT/HCPCS: 36415; 71045; 80048; 80076; 82947; 83735; 84484; 85025; 87635; 93005; 94640; 96374; 97162; 99285; J1885

== ENCOUNTER 2020-06-15 19:17 | Inpatient (IN) | payer OTHER, SELFPAY ==
--- NOTE | ~2020-06-15 | XR_ITS ---
EXAMINATION: XR CHEST CLINICAL INFORMATION: Shortness of breath COMPARISON: Chest radiograph 05/12/[address] 04/30/2020 TECHNIQUE: Frontal view of the chest was obtained. FINDINGS: The heart is enlarged. There is no evidence of CHF. Right basilar interstitial prominence/atelectasis persists. On the left, there is new acute opacity present in the left lower lobe with obscuration of the left hemidiaphragm consistent with left lower lobe pneumonia. Small left effusion may be present. XR/XR chest 1V IMPRESSION: New left lower lobe pneumonia with tiny effusion. Continued interstitial prominence of the right lung base.
[2020-06-15 19:25] VITALS: BP 146/101; PULSE 118; RESP 20; TEMP 36.6; O2SAT 92; BMI 32.3
--- NOTE | 2020-06-15 19:44 | PC.NURSE ---
PT TO ROOM WITH C/O DIFFICULT BRETHING, PT CHG INTO GOWN AND AWAITING MD'S EVAL.
--- NOTE | 2020-06-15 19:54 | ECG_ITS ---
Test Reason : DIFFICULTY BREATHING Blood Pressure : / mmHG Vent. Rate : 090 BPM Atrial Rate : 090 BPM P-R Int : 134 ms QRS Dur : 130 ms QT Int : 434 ms P-R-T Axes : 013 011 -08 degrees QTc Int : 530 ms Normal sinus rhythm Right bundle branch block Abnormal ECG When compared with ECG of 12-MAY-2020 16:18, No significant change was found Referred By: Racheal Cuello Electronically Signed By:KEVIN ODELL MD
--- NOTE | 2020-06-15 19:57 | ED.SOB ---
HPI - SOB/Dyspnea General Chief Complaint: Dyspnea Stated Complaint: fever asthma Time Seen by Provider: 06/15/20 19:53 Source: patient and freelance interpreter/translator Mode of arrival: ambulatory Limitations: no limitations History of Present Illness HPI Narrative: 59-year-old female with history of COPD, chronic respiratory failure, normally use full L of supplemental oxygen at home presents to the ED with shortness of breath, patient reports feeling short of breath for the past day or 2, associated with dry cough. Related Data Home Medications Medication Instructions Recorded Confirmed furosemide 1 tab PO QAM 03/08/20 05/21/20 metformin 1 tab PO BID 03/08/20 05/21/20 montelukast 1 tab PO BEDTIME 03/08/20 05/21/20 omeprazole 20 mg PO DAILY@0630 03/08/20 05/21/20 quetiapine 1 tab PO BID 03/08/20 05/21/20 sertraline 2 tab PO DAILY 03/08/20 05/21/20 trazodone 50 - 100 mg PO BEDTIME PRN 03/08/20 05/21/20 simvastatin 40 mg tablet 40 mg PO BEDTIME 05/21/20 05/21/20 Previous Rx's Medication Instructions Recorded amlodipine 5 mg PO DAILY #30 tab 03/11/20 lisinopril 20 mg PO DAILY #30 tab 03/11/20 prednisone 20 mg PO DAILY #3 tab 03/11/20 ipratropium 0.5 mg-albuterol 3 mg 1 ml INHALATION QID #360 ml 03/14/20 (2.5 mg base)/3 mL nebulization soln carvedilol 12.5 mg tablet 12.5 mg PO BID #60 tab 04/17/20 albuterol sulfate 4 inh INHALATION QID #18 g 05/02/20 meclizine 25 mg tablet 25 mg PO TID PRN 30 Days #90 tab 05/10/20 tiotropium bromide 18 mcg capsule 1 cap INHALATION DAILY 30 Days #30 05/20/20 with inhalation device inh tramadol 50 mg tablet 50 mg PO BID PRN 30 Days #60 tab 05/21/20 baclofen 10 mg tablet 10 mg PO TID 7 Days #21 tab 06/08/20 Allergies Allergy/AdvReac Type Severity Reaction Status Date / Time nicotine [Nicotine] Allergy Unknown ITCHING Verified 05/21/20 10:40 WITH THE PATCHES topiramate Allergy Unknown inadequealte Verified 05/21/20 10:40 response Review of Systems Review of Systems: All other systems are reviewed and are negative Constitutional: Reports as per HPI and Reports no additional constitutional complaints Eyes: Reports as per HPI and Reports no additional eye complaints Reports system reviewed and no additional complaints, except as documented Cardiovascular: Reports as per HPI and Reports no additional cardiovascular complaints Respiratory: Reports as per HPI and Reports no additional respiratory complaints Gastrointestinal: Reports as per HPI and Reports no additional gastrointestinal complaints Genitourinary: Reports no additional female genitourinary complaints Musculoskeletal: Reports no additional musculoskeletal complaints Skin/Breast: Reports system reviewed and no additional complaints, except as docu Psychiatric: Reports no additional psychiatric complaints Endocrine: Reports no additional endocrine complaints Hematologic/Lymphatic: Reports no additional hematologic/lymphatic complaints Allergic/Immunologic: Reports no additional allergic/immunologic complaints Reports system reviewed and no additional complaints, except as documented and Reports Abnormal speech present PMFSH Past Medical History Medical History Anxiety Cardiomyopathy Chronic respiratory failure COPD (chronic obstructive pulmonary disease) Depression Diabetes HFrEF (heart failure with reduced ejection fraction) HLD (hyperlipidemia) HTN (hypertension) Low back pain Mitral regurgitation Normocytic anemia KELLIE (obstructive sleep apnea) Postmenopausal Severe chronic obstructive pulmonary disease Supplemental oxygen dependent Surgical History Bilateral ankle fractures History of total abdominal hysterectomy Family History Family History Father No problems noted. Mother Liver cancer Hypertension Social History Social History Household Members: None Housing: Apartment Alcohol intake: never Smoking Status: Current every day smoker Tobacco Type: Cigarette Packs Per Day: 1 Cigarettes Per Day: 10 Second Hand Smoke Exposure: No Advance Directives: No Advance Directives Information Provided: Yes service: No Current occupational status: disabled Physical Exam Vital Signs: Vital Signs: Last Vital Signs Temp 98.7 F 06/15/20 20:25 Pulse 92 06/15/20 21:38 Resp 18 06/15/20 20:25 BP 151/101 H 06/15/20 20:25 Pulse Ox 90 L 06/15/20 20:25 Body Mass Index 32.3 Vital signs have been reviewed as normal and appeared to be correct. Blood pressure in the high range . Heart rate tachycardia. Respiration rate normal. Temperature normal. Oxygen saturation normal. Appearance: Alert. Oriented X3. No acute distress. Head: Normal external exam. Normocephalic. Atraumatic. No Taylor signs noted. No raccoon eyes noted Eyes: PERRLA. EOMI. Conjunctiva and sclera normal. Eyelids normal. ENT: EAC normal. TM's Normal. Pharynx normal. Uvula midline. Moist mucous membranes. No trismus noted. No drooling noted. No muffled voice noted. Neck: Normal inspection. Neck supple. FROM. No adenopathy. Thyroid Normal. No meningeal signs. No neck mass noted. CVS: Normal heart rate and rhythm. Heart sound normal. No murmurs noted. Pulses normal throughout. Respiratory: No respiratory distress. Painless inspiration. Breath sounds normal. Diffuse mild expiratory wheezes, no rales, or rhonchi noted. Chest nontender. No accessory muscle usage noted, mild diffuse decreased air movement noted. Abdomen: Soft and nontender. Bowel sounds normal in all 4 quadrants. No distention noted. No organomegaly noted. No visible injury noted. Back: No CVA tenderness. Full range of motion noted. Skin: Skin warm and dry. Normal skin color. Normal skin turgor. No rashes/lesions/lacerations noted. Extremities: No lower extremity edema. Extremities exhibit normal range of motion. Extremities nontender. Neuro: Oriented X 3. No motor deficit. No sensory deficit. Reflexes normal. Course Course Course Narrative: 59-year-old female history of COPD, use supplemental oxygen at home, came in with difficulty breathing and hypoxia, patient found to have left lower lobe pneumonia. Patient met criteria for SIRS. Will treat with bronchodilator/Solu-Medrol/magnesium/antibiotic. Admit Slight elevation of high sensitive troponin, EKG showing no acute ischemic changes, patient has no chest pain. MDM - SOB/Dyspnea Lab Data Attestation: I reviewed the patient's lab results. Result diagrams: 06/15/20 20:42 06/15/20 20:42 Labs: Lab Results 06/15/20 06/15/20 06/15/20 Range/Units 15:45 20:42 20:42 WBC 9.8 (4.8-10.8) X10*3/uL RBC 4.09 L (4.20-5.50) X10*6/uL Hgb 10.6 L (12.0-16.0) g/dl Hct 34.4 L (37-47) % MCV 84.1 (80-98) fL MCH 25.9 L (27.0-33.0) pg MCHC 30.8 L (31.0-35.0) g/dl RDW 17.0 H (11.0-16.0) % Plt Count 189 (160-400) X10*3/uL MPV 10.6 (9.4-12.3) fL Immature Gran % (Auto) 0.3 (0.0-0.4) % Neut % (Auto) 77.5 H (45-73) % Lymph % (Auto) 14.6 L (20-40) % [place] % (Auto) 5.4 (2-11) % Eos % (Auto) 2.1 (0-4) % Baso % (Auto) 0.1 (0-2) % Lymph # (Auto) 1.4 (1.2-4.9) X10*3/uL [place] # (Auto) 0.5 (0.1-1.2) X10*3/uL Eos # (Auto) 0.2 (0.0-0.4) X10*3/uL Baso # (Auto) 0.0 (0.0-0.2) X10*3/uL Abs Immat Gran (auto) 0.03 (0.00-0.03) X10*3/uL Absolute Neuts (auto) 7.6 (2.0-8.3) X10*3/uL Absolute Nucleated RBC 0.000 (0.0-0.012) X10*3/uL Nucleated RBC % (auto) 0.0 (0.0-0.2) /100WBC Sodium 142 (135-145) mmol/L Potassium 3.5 (3.3-5.1) mmol/L Chloride 102 (96-108) mmol/L Carbon Dioxide 31 H (22-29) mmol/L Anion Gap 13 (12-20) BUN 8 L (9-16) mg/dL Creatinine 0.91 (0.5-1.4) mg/dL Estim Creat Clear Calc 58.4 Estimated GFR > 60 Random Glucose 119 H (60-115) mg/dL Lactic Acid (0.5-2.0) mmol/L Calcium 8.7 (8.4-10.2) mg/dL Troponin I High Sens 106.8 H D (<3.5-17.0) ng/L B-Natriuretic Peptide (<100) pg/mL Lipase 12 (8-78) U/L COVID-19 (ANEL) (Negative) COVID-19 Clin Com 06/15/20 06/15/20 06/15/20 Range/Units 20:42 20:42 20:42 WBC (4.8-10.8) X10*3/uL RBC (4.20-5.50) X10*6/uL Hgb (12.0-16.0) g/dl Hct (37-47) % MCV (80-98) fL MCH (27.0-33.0) pg MCHC (31.0-35.0) g/dl RDW (11.0-16.0) % Plt Count (160-400) X10*3/uL MPV (9.4-12.3) fL Immature Gran % (Auto) (0.0-0.4) % Neut % (Auto) (45-73) % Lymph % (Auto) (20-40) % [place] % (Auto) (2-11) % Eos % (Auto) (0-4) % Baso % (Auto) (0-2) % Lymph # (Auto) (1.2-4.9) X10*3/uL [place] # (Auto) (0.1-1.2) X10*3/uL Eos # (Auto) (0.0-0.4) X10*3/uL Baso # (Auto) (0.0-0.2) X10*3/uL Abs Immat Gran (auto) (0.00-0.03) X10*3/uL Absolute Neuts (auto) (2.0-8.3) X10*3/uL Absolute Nucleated RBC (0.0-0.012) X10*3/uL Nucleated RBC % (auto) (0.0-0.2) /100WBC Sodium (135-145) mmol/L Potassium (3.3-5.1) mmol/L Chloride (96-108) mmol/L Carbon Dioxide (22-29) mmol/L Anion Gap (12-20) BUN (9-16) mg/dL Creatinine (0.5-1.4) mg/dL Estim Creat Clear Calc Estimated GFR Random Glucose (60-115) mg/dL Lactic Acid 0.7 (0.5-2.0) mmol/L Calcium (8.4-10.2) mg/dL Troponin I High Sens (<3.5-17.0) ng/L B-Natriuretic Peptide 439 H (<100) pg/mL Lipase (8-78) U/L COVID-19 (ANEL) Negative (Negative) COVID-19 Clin Com See Note Imaging Data Chest x-ray: Radiologist's impression: New left lower lobe pneumonia with tiny effusion. Continued interstitial prominence of the right lung base. ECG Data Interpretation: Normal sinus rhythm at 90 beats per minutes, right bundle rosie block, no acute ST elevation. Discharge Plan Discharge Clinical Impression: Acute exacerbation of chronic obstructive pulmonary disease, Pneumonia Patient Disposition: Admitted As Inpatient
[2020-06-15 20:25] VITALS: BP 151/101; PULSE 115; RESP 18; TEMP 37.1; O2SAT 90
[2020-06-15] MEDS: methylPREDNISolone Sod Succ/PF 125 MG/2 ML VIAL IVPUSH (20:49)
[2020-06-15] MEDS: Magnesium Sulfate/H2O 2 GM/50 ML PIGGYBACK IV (20:49)
[2020-06-15 20:51] LABS: MANUAL DIFF FLAG NO
[2020-06-15 20:54] LABS: Basophils Percent Auto 0.1 % (0-2); Eosinophils Absolute Auto 0.2 X10*3/uL (0.0-0.4); Eosinophils Percent Auto 2.1 % (0-4); Hematocrit 34.4 % (37-47); Hemoglobin 10.6 g/dl (12.0-16.0); Imm Gran Abs Auto 0.03 X10*3/uL (0.00-0.03); Imm Gran Pct Auto 0.3 % (0.0-0.4); Lymphocytes Absolute Auto 1.4 X10*3/uL (1.2-4.9); Lymphocytes Percent Auto 14.6 % (20-40); Mean Corpuscular HGB Conc 30.8 g/dl (31.0-35.0); Mean Corpuscular Hemoglobin 25.9 pg (27.0-33.0); Mean Corpuscular Volume 84.1 fL (80-98); Mean Platelet Volume 10.6 fL (9.4-12.3); Monocytes Absolute Auto 0.5 X10*3/uL (0.1-1.2); Monocytes Percent Auto 5.4 % (2-11); Neutrophils Absolute Auto 7.6 X10*3/uL (2.0-8.3); Neutrophils Percent Auto 77.5 % (45-73); Platelet Count 189 X10*3/uL (160-400); Red Blood Count 4.09 X10*6/uL (4.20-5.50); White Blood Count 9.8 X10*3/uL (4.8-10.8)
[2020-06-15 21:14] LABS: Lactic Acid 0.7 mmol/L (0.5-2.0)
[2020-06-15 21:16] LABS: Anion Gap 13 (12-20); Blood Urea Nitrogen 8 mg/dL (9-16); Calcium 8.7 mg/dL (8.4-10.2); Carbon Dioxide 31 mmol/L (22-29); Chloride 102 mmol/L (96-108); Creatinine Clr Calc Pharmacy 58.4; Estimated Glomerular Filt Rate > 60; Glucose Random 119 mg/dL (60-115); Lipase 12 U/L (8-78); Potassium 3.5 mmol/L (3.3-5.1); Sodium 142 mmol/L (135-145)
[2020-06-15 21:20] LABS: B Type Natriuretic Peptide 439 pg/mL (<100)
[2020-06-15 21:21] LABS: Troponin-I High Sensitivity 106.8 ng/L (<3.5-17.0)
--- NOTE | 2020-06-15 21:21 | PC.NURSE ---
ekg obtained to
[2020-06-15 21:25] LABS: COVID-19 Test Negative (Negative); IDNOW Serial# 9DD0AD1C
[2020-06-15] MEDS: Albuterol/Iprat 2.5/0.5MG 3 ML AMPUL.NEB INHALE (21:36)
[2020-06-15] MEDS: Albuterol Sulfate (0.083%) 2.5 MG/3 ML VIAL.NEB 5 MG INHALE (21:36)
[2020-06-15 21:38] VITALS: PULSE 92; O2SAT 93
[2020-06-15] MEDS: cefTRIAXone sodium 1 GM in 0.9 % Sodium Chloride 50 ML IV (22:39)
[2020-06-15] MEDS: Azithromycin 500 MG TABLET PO (22:40)
[2020-06-15 23:14] VITALS: BP 162/101; PULSE 118; RESP 18; O2SAT 98
--- NOTE | 2020-06-15 23:20 | PC.NURSE ---
PT RESTING QUIETLY, SKIN W/D. PT DESAT INTO 80'S, NRB APPLIED WITH SATS TO 98%.
[2020-06-16] VITALS (15 sets, daily range): BP systolic 140–170; BP diastolic 81–92; PULSE 80–112; RESP 18–22; TEMP 36.1–36.9; O2SAT 84–95; BMI 32.4
--- NOTE | 2020-06-16 | ECG_ITS ---
Test Reason : QT interval, tn-I elevation Blood Pressure : / mmHG Vent. Rate : 087 BPM Atrial Rate : 087 BPM P-R Int : 138 ms QRS Dur : 124 ms QT Int : 446 ms P-R-T Axes : 059 069 -13 degrees QTc Int : 536 ms Sinus rhythm with occasional Premature ventricular complexes Right bundle branch block -or- right ventricular hypertrophy Nonspecific ST and T wave abnormality Abnormal ECG When compared to the previous EKG of Premature ventricular complexes are now Present Referred By: Ashutosh Card Electronically Signed By:KEVIN ODELL MD
--- NOTE | 2020-06-16 00:28 | PC.NURSE ---
REPORT GIVEN TO CARRILLO VASQUEZ. PT TO FLOOR ON MONITOR IN NAD. HL FLUSHES EASILY W/O RESISITENCE.
--- NOTE | 2020-06-16 00:48 | PC.NURSE ---
PT TO FLOOR ON STRETCHER WITH PCT.
[2020-06-16] MEDS: 0.9 % Sodium Chloride Flush 3 ML SYRINGE IVFLUSH ×3 (01:44→15:41)
--- NOTE | 2020-06-16 05:36 | P.HPHOSP_ITS ---
History of Present Illness Date of Service: 06/16/20 Chief Complaint: Shortness of breath [place]-speaking home This is a 59-year-old female with extensive past medical history including but not limited to COPD O2 dependent, CHF, diabetes and hypertension who presents the hospital with complaints of shortness of breath. Patient reports that her shortness of breath started this morning, associated with cough, sputum production, no fever, or chills. She has had no sick contacts or recent travel. Has no chest pain, no abdominal pain, nausea or vomiting, no urinary symptoms and no lower extremity edema. She has no headache, change in vision, no palpitations. On arrival to the ED patient hemodynamically stable with temp of 98?, heart rate of 118, blood pressure 146/101. Patient is satting 90% on 3 L. Patient uses 2 L of oxygen at baseline. Labs are significant for hemoglobin of 10.6, BUN of 8, creatinine of 0.91, troponin of 106, BNP of 439 ( significantly lower than her numbers in the past) Chest x-ray done shows new left lower lobe pneumonia with tiny fusion. Review of Systems Review of Systems: Yes all other systems are reviewed and are negative [facility] Medical History Anxiety Cardiomyopathy Chronic respiratory failure COPD (chronic obstructive pulmonary disease) Depression Diabetes HFrEF (heart failure with reduced ejection fraction) HLD (hyperlipidemia) HTN (hypertension) Low back pain Mitral regurgitation Normocytic anemia KELLIE (obstructive sleep apnea) Postmenopausal Severe chronic obstructive pulmonary disease Supplemental oxygen dependent Family History Father No problems noted. Mother Liver cancer Hypertension Surgical History Bilateral ankle fractures History of total abdominal hysterectomy Social History Household Members: None Housing: Apartment Alcohol intake: never Smoking Status: Current every day smoker Tobacco Type: Cigarette Packs Per Day: 1 Cigarettes Per Day: 10 Second Hand Smoke Exposure: No Advance Directives: No Advance Directives Information Provided: Yes service: No Current occupational status: disabled Meds Allergies Allergy/AdvReac Type Severity Reaction Status Date / Time nicotine [Nicotine] Allergy Unknown ITCHING Verified 05/21/20 10:40 WITH THE PATCHES topiramate Allergy Unknown inadequealte Verified 05/21/20 10:40 response Active Medications: Current Medications Generic Name Dose Route Start Last Admin Trade Name Norma PRN Reason Stop Dose Admin Acetaminophen 650 mg 06/15/20 22:38 Acetaminophen 325 Mg Tablet PO Q6H PRN Pain, Mild (Pain Scale 1-3) Albuterol/Ipratropium 3 ml 06/16/20 08:00 Albuterol/Iprat 2.5/0.5mg 3 Ml Ampul.Neb INHALE RQ4H WHILE AWAKE WALDEMAR Albuterol/Ipratropium 3 ml 06/15/20 22:38 Albuterol/Iprat 2.5/0.5mg 3 Ml Ampul.Neb INHALE RQ4H PRN Shortness of Breath/Wheezing Azithromycin 500 mg 06/16/20 22:00 Azithromycin 500 Mg Tablet PO Q24H WALDEMAR Docusate Sodium 100 mg 06/15/20 22:38 Docusate Sodium 100 Mg Capsule PO DAILY PRN Constipation Ceftriaxone Sodium 1 gm/ 50 mls @ 100 mls/hr 06/16/20 22:00 Sodium Chloride IV Q24H [facility] Methylprednisolone Sodium Succinate 40 mg 06/16/20 08:00 Methylprednisolone Sod Succ/Pf 40 Mg/Ml Vial IVPUSH Q12H [place] Ondansetron HCl 4 mg 06/15/20 22:38 Ondansetron Hcl 4 Mg/2 Ml Vial IVPUSH Q8H PRN Nausea and Vomiting Sodium Chloride 3 ml 06/16/20 00:00 06/16/20 01:44 0.9 % Sodium Chloride Flush 3 Ml Syringe IVFLUSH 3 ml QSHIFT [facility] Administration Home Medications Medication Instructions Recorded Confirmed Last Taken Type furosemide 1 tab PO QAM 03/08/20 06/16/20 05/12/20 History metformin 1 tab PO BID 03/08/20 06/16/20 Unknown History montelukast 1 tab PO BEDTIME 03/08/20 06/16/20 05/12/20 History omeprazole 20 mg PO DAILY@0630 03/08/20 06/16/20 05/12/20 History quetiapine 1 tab PO BID 03/08/20 06/16/20 05/12/20 History sertraline 2 tab PO DAILY 03/08/20 06/16/20 05/12/20 History trazodone 50 - 100 mg PO BEDTIME PRN 03/08/20 06/16/20 05/12/20 History simvastatin 40 mg tablet 40 mg PO BEDTIME 05/21/20 06/16/20 Unknown History Physical Exam Vital Signs and Narrative: Vital Signs: Last Vital Signs Temp 98.0 F 06/16/20 03:48 Pulse 80 06/16/20 03:48 Resp 19 06/16/20 03:48 BP 152/90 H 06/16/20 03:48 Pulse Ox 94 06/16/20 03:48 Body Mass Index 32.4 Const: Other: [place]-speaking only, General: cooperative and no acute distress Orientation/consciousness: patient oriented x3 Eyes: General: appearance normal, both eyes and all related structures Resp: Effort & Inspection: normal respiratory effort, able to speak in c omplete sentences, audible wheezes and Actively coughing Cardio: Rate: regular rate Rhythm: regular rhythm GI: Palpation (GI): Soft to palpation Auscultation: normal bowel sounds Skin: General skin exam: no rashes or lesions noted Neuro: General: patient oriented x3 Cognition (Neuro): normal cognition Extrem: General: Yes normal to inspection and Yes no pedal edema Results Labs CBC and Chem 7: 06/15/20 20:42 06/15/20 20:42 Labs: Laboratory Results - last 24 hr 06/15/20 06/15/20 06/15/20 15:45 20:42 20:42 MCV 84.1 MCH 25.9 L MCHC 30.8 L RDW 17.0 H Plt Count 189 MPV 10.6 Immature Gran % (Auto) 0.3 Neut % (Auto) 77.5 H Lymph % (Auto) 14.6 L [place] % (Auto) 5.4 Eos % (Auto) 2.1 Baso % (Auto) 0.1 Lymph # (Auto) 1.4 [place] # (Auto) 0.5 Eos # (Auto) 0.2 Baso # (Auto) 0.0 Abs Immat Gran (auto) 0.03 Absolute Neuts (auto) 7.6 Absolute Nucleated RBC 0.000 Nucleated RBC % (auto) 0.0 Anion Gap 13 Estim Creat Clear Calc 58.4 Estimated GFR > 60 Random Glucose 119 H Lactic Acid Calcium 8.7 Troponin I High Sens 106.8 H D B-Natriuretic Peptide Lipase 12 COVID-19 (ANEL) COVID-19 Clin Com 06/15/20 06/15/20 06/15/20 20:42 20:42 20:42 MCV MCH MCHC RDW Plt Count MPV Immature Gran % (Auto) Neut % (Auto) Lymph % (Auto) [place] % (Auto) Eos % (Auto) Baso % (Auto) Lymph # (Auto) [place] # (Auto) Eos # (Auto) Baso # (Auto) Abs Immat Gran (auto) Absolute Neuts (auto) Absolute Nucleated RBC Nucleated RBC % (auto) Anion Gap Estim Creat Clear Calc Estimated GFR Random Glucose Lactic Acid 0.7 Calcium Troponin I High Sens B-Natriuretic Peptide 439 H Lipase COVID-19 (ANEL) Negative COVID-19 Clin Com See Note Imaging Radiologist's Impressions: Impressions Chest X-Ray 06/15/20 19:54 IMPRESSION: New left lower lobe pneumonia with tiny effusion. Continued interstitial prominence of the right lung base. Assessment and Plan (1) Acute exacerbation of chronic obstructive pulmonary disease: Status: Acute (2) Pneumonia: Qualifiers: Laterality: left Lung location: lower lobe of lung Pneumonia type: due to unspecified organism Qualified Code(s): J18.9 - Pneumonia, unspecified organism Status: Acute (3) Acute and chronic respiratory failure with hypoxia: Status: Acute This is a 59-year-old female presents the hospital shortness of breath, cough, sputum production found to have pneumonia as well as COPD exacerbation # acute on chronic hypoxic respiratory failure - patient uses 2 L of oxygen at baseline - currently requiring 3 L of oxygen to maintain 90% Plan: - treat COPD and pneumonia as underlying causes - DuoNebs p.r.n. - O2 as required # community-acquired pneumonia - COVID-19 PCR negative, most likely bacterial - will start patient on IV antibiotics - pending strep and Legionella urine antigen - follow cultures - monitor respiratory status # COPD exacerbation - secondary to pneumonia - will start patient on DuoNeb p.r.n. q.i.d., Solu-Medrol 40 IV b.i.d. - IV antibiotics # history of heart failure with reduced ejection fraction - not in exacerbation - BNP is elevated but significantly lower than her usual presentation - at this time will continue her Lasix 40 mg daily, lisinopril, and monitor for any worsening edema or signs of volume overload # diabetes - hold metformin - start low-dose sliding scale insulin - diabetic diet - POC q.i.d. a.c. # hypertension - stable - continue carvedilol, amlodipine, lisinopril DVT prophylaxis: Heparin subQ
[2020-06-16 06:39] LABS: Basophils Percent Auto 0.1 % (0-2); Hematocrit 32.7 % (37-47); Imm Gran Abs Auto 0.03 X10*3/uL (0.00-0.03); Imm Gran Pct Auto 0.4 % (0.0-0.4); Lymphocytes Absolute Auto 0.6 X10*3/uL (1.2-4.9); Lymphocytes Percent Auto 8.1 % (20-40); MANUAL DIFF FLAG SCAN; Mean Corpuscular HGB Conc 30.6 g/dl (31.0-35.0); Mean Corpuscular Hemoglobin 25.3 pg (27.0-33.0); Mean Corpuscular Volume 82.6 fL (80-98); Mean Platelet Volume 10.9 fL (9.4-12.3); Monocytes Percent Auto 0.6 % (2-11); Neutrophils Absolute Auto 6.2 X10*3/uL (2.0-8.3); Neutrophils Percent Auto 90.8 % (45-73); Platelet Count 181 X10*3/uL (160-400); Red Blood Count 3.96 X10*6/uL (4.20-5.50); Red Cell Distribution Width 16.8 % (11.0-16.0); SCAN SMEAR FLAG 1; White Blood Count 6.8 X10*3/uL (4.8-10.8)
[2020-06-16 07:09] LABS: Anion Gap 12 (12-20); Blood Urea Nitrogen 10 mg/dL (9-16); Calcium 8.6 mg/dL (8.4-10.2); Carbon Dioxide 30 mmol/L (22-29); Chloride 103 mmol/L (96-108); Creatinine Clr Calc Pharmacy 69.2; Estimated Glomerular Filt Rate > 60; Glucose Random 185 mg/dL (60-115); Sodium 141 mmol/L (135-145)
[2020-06-16 07:17] LABS: Troponin-I High Sensitivity 99.3 ng/L (<3.5-17.0)
[2020-06-16] MEDS: Albuterol/Iprat 2.5/0.5MG 3 ML AMPUL.NEB INHALE ×4 (07:45→19:47)
[2020-06-16 07:50] LABS: SLIDE REVIEW VERIFIED
[2020-06-16 08:04] LABS: Glucose, Whole Blood 148 mg/dL (60-115)
[2020-06-16] MEDS: Heparin Sodium,Porcine 5,000 UNIT/ML VIAL 5000 UNIT SUBCUT (08:08)
[2020-06-16] MEDS: Sertraline HCL 100 MG TABLET 200 MG PO (08:13)
[2020-06-16] MEDS: QUEtiapine Fumarate 50 MG TABLET PO ×2 (08:14→21:43)
[2020-06-16] MEDS: Furosemide 40 MG TABLET PO (08:14)
[2020-06-16] MEDS: carvediloL 12.5 MG TABLET PO ×2 (08:15→21:42)
[2020-06-16] MEDS: amLODIPine Besylate 5 MG TABLET PO (08:15)
[2020-06-16] MEDS: Baclofen 10 MG TABLET PO ×3 (08:16→21:43)
[2020-06-16 08:22] LABS: C Reactive Protein 3.07 mg/dL (< or = 0.50); Lactate Dehydrogenase 179 U/L (122-220)
[2020-06-16 08:44] LABS: Ferritin 17 ng/mL (10-250)
[2020-06-16 08:54] LABS: Procalcitonin 0.03 ng/mL
--- NOTE | 2020-06-16 11:00 | HO.PM.IMPN ---
Subjective Subjective Date of Service: 06/16/20 Interval History: back on 2L O2 via NC denies cough endorses dyspnea denies chest pain denies edema denies fever, nasal congestion, anosmia, sore throat, or COVID-19 exposure history taken from pt in [facility] Physical Exam Vital Signs: Vital Signs: Last Vital Signs Temp 98.0 F 06/16/20 08:00 Pulse 96 06/16/20 08:15 Resp 22 H 06/16/20 08:00 BP 170/92 H 06/16/20 08:15 Pulse Ox 92 06/16/20 08:00 Body Mass Index 32.4 Gen: in no acute distress HEENT: sclera anicteric, moist mucus membranes Neck: supple Lungs: diminished at L base Heart: regular rate and rhythm, no murmurs Abd: soft, obese, non-tender, non-distended Ext: no edema Skin: warm/well-perfused Neuro: alert and oriented x3, no focal findings Psych: appropriate affect Objective Data Current Medications Generic Name Dose Route Start Last Admin Trade Name Norma PRN Reason Stop Dose Admin Acetaminophen 650 mg 06/15/20 22:38 Acetaminophen 325 Mg Tablet PO Q6H PRN Pain, Mild (Pain Scale 1-3) Albuterol/Ipratropium 3 ml 06/16/20 08:00 06/16/20 07:45 Albuterol/Iprat 2.5/0.5mg 3 Ml Ampul.Neb INHALE 3 ml RQ4H WHILE AWAKE WALDEMAR Administration Albuterol/Ipratropium 3 ml 06/15/20 22:38 Albuterol/Iprat 2.5/0.5mg 3 Ml Ampul.Neb INHALE RQ4H PRN Shortness of Breath/Wheezing Amlodipine Besylate 5 mg 06/16/20 09:00 06/16/20 08:15 Amlodipine Besylate 5 Mg Tablet PO 5 mg DAILY WALDEMAR Administration Protocol Atorvastatin Calcium 20 mg 06/16/20 21:00 Atorvastatin Calcium 20 Mg Tablet PO BEDTIME WALDEMAR Baclofen 10 mg 06/16/20 09:00 06/16/20 08:16 Baclofen 10 Mg Tablet PO 10 mg TID WALDEMAR Administration Carvedilol 12.5 mg 06/16/20 09:00 06/16/20 08:15 Carvedilol 12.5 Mg Tablet PO 12.5 mg BID WALDEMAR Administration Protocol Docusate Sodium 100 mg 06/15/20 22:38 Docusate Sodium 100 Mg Capsule PO DAILY PRN Constipation Doxycycline Hyclate 100 mg 06/16/20 09:00 06/16/20 08:56 Doxycycline Hyclate 100 Mg Tablet PO 100 mg Q12H WALDEMAR Administration Furosemide 40 mg 06/16/20 09:00 06/16/20 08:14 Furosemide 40 Mg Tablet PO 40 mg DAILY WALDEMAR Administration Protocol Heparin Sodium (Porcine) 5,000 unit 06/16/20 06:00 06/16/20 08:08 Heparin Sodium,Porcine 5,000 Unit/Ml Vial SUBCUT 5,000 unit Q12H WALDEMAR Administration Ceftriaxone Sodium 1 gm/ 50 mls @ 100 mls/hr 06/16/20 22:00 Sodium Chloride IV Q24H [facility] Insulin Human Lispro 0 unit 06/16/20 07:30 06/16/20 08:08 Insulin Lispro 100 Unit/Ml 3 Ml Vial SUBCUT Not Given QIDACHS [facility] Protocol Lisinopril 20 mg 06/16/20 09:00 06/16/20 08:15 Lisinopril 20 Mg Tablet PO 20 mg DAILY WALDEMAR Administration Protocol Meclizine HCl 25 mg 06/16/20 05:45 Meclizine Hcl 25 Mg Tablet PO TID PRN dizziness Methylprednisolone Sodium Succinate 40 mg 06/16/20 08:00 06/16/20 08:11 Methylprednisolone Sod Succ/Pf 40 Mg/Ml Vial IVPUSH 40 mg Q12H WALDEMAR Administration Montelukast Sodium 10 mg 06/16/20 21:00 Montelukast Sodium 10 Mg Tablet PO BEDTIME [facility] Ondansetron HCl 4 mg 06/15/20 22:38 Ondansetron Hcl 4 Mg/2 Ml Vial IVPUSH Q8H PRN Nausea and Vomiting Quetiapine Fumarate 50 mg 06/16/20 09:00 06/16/20 08:14 Quetiapine Fumarate 50 Mg Tablet PO 50 mg BID [facility] Administration Sertraline HCl 200 mg 06/16/20 09:00 06/16/20 08:13 Sertraline Hcl 100 Mg Tablet PO 200 mg DAILY WALDEMAR Administration Sodium Chloride 3 ml 06/16/20 00:00 06/16/20 08:09 0.9 % Sodium Chloride Flush 3 Ml Syringe IVFLUSH 3 ml QSHIFT [facility] Administration Tiotropium [place] 1 puff 06/16/20 09:00 06/16/20 07:49 Tiotropium [place] 18 Mcg Cap.W.Dev INHALE Not Given DAILY WALDEMAR Tramadol HCl 50 mg 06/16/20 05:45 Tramadol Hcl 50 Mg Tablet PO BID PRN pain Trazodone HCl 50 - 100 mg 06/16/20 05:45 Trazodone Hcl 50 Mg Tablet PO BEDTIME PRN Sleep Labs CBC & Chem 7: 06/16/20 05:54 06/16/20 05:54 Labs: Laboratory Results - last 24 hr 06/15/20 06/15/20 06/15/20 15:45 20:42 20:42 WBC 9.8 RBC 4.09 L Hgb 10.6 L Hct 34.4 L MCV 84.1 MCH 25.9 L MCHC 30.8 L RDW 17.0 H Plt Count 189 MPV 10.6 Immature Gran % (Auto) 0.3 Neut % (Auto) 77.5 H Lymph % (Auto) 14.6 L [place] % (Auto) 5.4 Eos % (Auto) 2.1 Baso % (Auto) 0.1 Lymph # (Auto) 1.4 [place] # (Auto) 0.5 Eos # (Auto) 0.2 Baso # (Auto) 0.0 Abs Immat Gran (auto) 0.03 Absolute Neuts (auto) 7.6 Absolute Nucleated RBC 0.000 Nucleated RBC % (auto) 0.0 Smear Tech's Comments Sodium 142 Potassium 3.5 Chloride 102 Carbon Dioxide 31 H Anion Gap 13 BUN 8 L Creatinine 0.91 Estim Creat Clear Calc 58.4 Estimated GFR > 60 POC Glucose Random Glucose 119 H Lactic Acid Calcium 8.7 Ferritin Lactate Dehydrogenase Troponin I High Sens 106.8 H D C-Reactive Protein B-Natriuretic Peptide Lipase 12 Procalcitonin COVID-19 (ANEL) COVID-19 Clin Com 06/15/20 06/15/20 06/15/20 20:42 20:42 20:42 WBC RBC Hgb Hct MCV MCH MCHC RDW Plt Count MPV Immature Gran % (Auto) Neut % (Auto) Lymph % (Auto) [place] % (Auto) Eos % (Auto) Baso % (Auto) Lymph # (Auto) [place] # (Auto) Eos # (Auto) Baso # (Auto) Abs Immat Gran (auto) Absolute Neuts (auto) Absolute Nucleated RBC Nucleated RBC % (auto) Smear Tech's Comments Sodium Potassium Chloride Carbon Dioxide Anion Gap BUN Creatinine Estim Creat Clear Calc Estimated GFR POC Glucose Random Glucose Lactic Acid 0.7 Calcium Ferritin Lactate Dehydrogenase Troponin I High Sens C-Reactive Protein B-Natriuretic Peptide 439 H Lipase Procalcitonin COVID-19 (ANEL) Negative COVID-19 Clin Com See Note 06/16/20 06/16/20 06/16/20 05:54 05:54 05:54 WBC 6.8 RBC 3.96 L Hgb 10.0 L Hct 32.7 L MCV 82.6 MCH 25.3 L MCHC 30.6 L RDW 16.8 H Plt Count 181 MPV 10.9 Immature Gran % (Auto) 0.4 Neut % (Auto) 90.8 H Lymph % (Auto) 8.1 L [place] % (Auto) 0.6 L Eos % (Auto) 0.0 Baso % (Auto) 0.1 Lymph # (Auto) 0.6 L [place] # (Auto) 0.0 L Eos # (Auto) 0.0 Baso # (Auto) 0.0 Abs Immat Gran (auto) 0.03 Absolute Neuts (auto) 6.2 Absolute Nucleated RBC 0.000 Nucleated RBC % (auto) 0.0 Smear Tech's Comments VERIFIED Sodium 141 Potassium 4.0 Chloride 103 Carbon Dioxide 30 H Anion Gap 12 BUN 10 Creatinine 0.77 Estim Creat Clear Calc 69.2 Estimated GFR > 60 POC Glucose Random Glucose 185 H D Lactic Acid Calcium 8.6 Ferritin 17 Lactate Dehydrogenase 179 Troponin I High Sens 99.3 H C-Reactive Protein 3.07 H B-Natriuretic Peptide Lipase Procalcitonin COVID-19 (ANEL) COVID-19 i[employer]Run 06/16/20 06/16/20 05:54 08:00 WBC RBC Hgb Hct MCV MCH MCHC RDW Plt Count MPV Immature Gran % (Auto) Neut % (Auto) Lymph % (Auto) [place] % (Auto) Eos % (Auto) Baso % (Auto) Lymph # (Auto) [place] # (Auto) Eos # (Auto) Baso # (Auto) Abs Immat Gran (auto) Absolute Neuts (auto) Absolute Nucleated RBC Nucleated RBC % (auto) Smear Tech's Comments Sodium Potassium Chloride Carbon Dioxide Anion Gap BUN Creatinine Estim Creat Clear Calc Estimated GFR POC Glucose 148 H Random Glucose Lactic Acid Calcium Ferritin Lactate Dehydrogenase Troponin I High Sens C-Reactive Protein B-Natriuretic Peptide Lipase Procalcitonin 0.03 COVID-19 (ANEL) COVID-19 Clin Com Assessment and Plan (1) Acute and chronic respiratory failure with hypoxia: Status: Acute (2) Pneumonia: Status: Acute (3) Severe chronic obstructive pulmonary disease: Status: Acute Assessment and Plan: hospital d#2 59yo F with COPD, chronic hypoxic respiratory failure on 2L O2 via NC, HFrEF [LVEF 40% 01/17/20], HTN, DM2 presented with dyspnea x1d, admitted for acute/chronic hypoxia due to PNA with associated COPD exacerbation # CAP - continue ceftriaxone #2, change azithromycin to doxycycline given QTc prolongation and on QT-prolonging medications - follow BCx, pneumococcal + Legionella UAgs - check respiratory virus panel # COPD exacerbation - continue methylprednisolone d#2, prn nebs, continue LAMA # acute/chronic hypoxic respiratory failure - on O2 2L at baseline # troponin elevation - suspect demand ischemia from above issues and underlying HFrEF. no chest pain, no ischemic EKG changes. will check TTE. # QT prolongation - check Mg, d/c azithromycin, recheck EKG in am # HFrEF - does not appear to be in decompensated HF clinically. BNP lower than baselien. TTE as above. continue lisinopril, furosemide, carvedilol # HTN - continue lisionpril, carvedilol, amlodipine # DM2 - correction-dose lispro # mood disorder - continue quetiapine, sertraline # VTE ppx - LMWH
[2020-06-16 11:11] LABS: Magnesium 2.6 mg/dL (1.6-2.6)
[2020-06-16 11:32] LABS: Glucose, Whole Blood 144 mg/dL (60-115)
[2020-06-16 12:11] LABS: Estimated Average Glucose 108 mg/dL; Hemoglobin A1c % 5.4 %
[2020-06-16] MEDS: Enoxaparin Sodium 40 MG/0.4 ML SYRINGE SUBCUT (12:38)
[2020-06-16 13:13] LABS: Adenovirus PCR Not Detected (Not Detect.); Bordetella parapertussis PCR Not Detected (Not Detect.); Bordetella pertussis PCR Not Detected (Not Detect.); Chlamydia pneumoniae PCR Not Detected (Not Detect.); Coronavirus 229E PCR Not Detected (Not Detect.); Coronavirus HKU1 PCR Not Detected (Not Detect.); Coronavirus NL63 PCR Not Detected (Not Detect.); Coronavirus OC43 PCR Not Detected (Not Detect.); Human metapneumovirus PCR Not Detected (Not Detect.); Influenza A PCR Not Detected (Not Detect.); Influenza B PCR Not Detected (Not Detect.); Mycoplasma pneumoniae PCR Not Detected (Not Detect.); Parainfluenza 1 PCR Not Detected (Not Detect.); Parainfluenza 2 PCR Not Detected (Not Detect.); Parainfluenza 3 PCR Not Detected (Not Detect.); Parainfluenza 4 PCR Not Detected (Not Detect.); RSV PCR Not Detected (Not Detect.); Rhino/Enterovirus PCR Not Detected (Not Detect.); SARS-CoV-2 PCR Not Detected (Not Detect.)
[2020-06-16 16:43] LABS: Glucose, Whole Blood 116 mg/dL (60-115)
[2020-06-16 20:07] LABS: Glucose, Whole Blood 114 mg/dL (60-115)
[2020-06-16] MEDS: Atorvastatin Calcium 20 MG TABLET PO (21:42)
[2020-06-16] MEDS: Montelukast Sodium 10 MG TABLET PO (21:42)
[2020-06-16] MEDS: cefTRIAXone sodium 1 GM in 0.9 % Sodium Chloride 50 ML IV (21:43)
[2020-06-17] VITALS (10 sets, daily range): BP systolic 107–160; BP diastolic 81–110; PULSE 75–92; RESP 18–24; TEMP 36.5–36.9; O2SAT 83–95
[2020-06-17] MEDS: 0.9 % Sodium Chloride Flush 3 ML SYRINGE IVFLUSH ×3 (01:28→15:47)
[2020-06-17 06:52] LABS: MANUAL DIFF FLAG NO
[2020-06-17 06:59] LABS: Basophils Percent Auto 0.1 % (0-2); Eosinophils Percent Auto 0.2 % (0-4); Hematocrit 32.7 % (37-47); Hemoglobin 9.9 g/dl (12.0-16.0); Imm Gran Abs Auto 0.04 X10*3/uL (0.00-0.03); Imm Gran Pct Auto 0.5 % (0.0-0.4); Lymphocytes Absolute Auto 1.8 X10*3/uL (1.2-4.9); Lymphocytes Percent Auto 20.5 % (20-40); Mean Corpuscular HGB Conc 30.3 g/dl (31.0-35.0); Mean Corpuscular Hemoglobin 24.9 pg (27.0-33.0); Mean Corpuscular Volume 82.4 fL (80-98); Mean Platelet Volume 11.4 fL (9.4-12.3); Monocytes Absolute Auto 0.4 X10*3/uL (0.1-1.2); Monocytes Percent Auto 4.2 % (2-11); Neutrophils Absolute Auto 6.3 X10*3/uL (2.0-8.3); Neutrophils Percent Auto 74.5 % (45-73); Platelet Count 204 X10*3/uL (160-400); Red Blood Count 3.97 X10*6/uL (4.20-5.50); White Blood Count 8.5 X10*3/uL (4.8-10.8)
--- NOTE | 2020-06-17 07:00 | ECG_ITS ---
Test Reason : recheck QT interval Blood Pressure : / mmHG Vent. Rate : 080 BPM Atrial Rate : 080 BPM P-R Int : 134 ms QRS Dur : 128 ms QT Int : 454 ms P-R-T Axes : 037 048 009 degrees QTc Int : 523 ms Sinus rhythm with marked sinus arrhythmia Non-specific intra-ventricular conduction block Nonspecific T wave abnormality Abnormal ECG When compared to the previous EKG of No significant changes seen Referred By: Ashutosh Card Electronically Signed By:Kemar Curry
[2020-06-17] MEDS: Albuterol/Iprat 2.5/0.5MG 3 ML AMPUL.NEB INHALE ×4 (07:29→19:50)
[2020-06-17 07:34] LABS: B Type Natriuretic Peptide 1211 pg/mL (<100)
[2020-06-17 07:39] LABS: Glucose, Whole Blood 86 mg/dL (60-115)
[2020-06-17 07:42] LABS: Anion Gap 14 (12-20); Blood Urea Nitrogen 20 mg/dL (9-16); Calcium 8.8 mg/dL (8.4-10.2); Carbon Dioxide 28 mmol/L (22-29); Chloride 104 mmol/L (96-108); Creatinine Clr Calc Pharmacy 65.8; Estimated Glomerular Filt Rate > 60; Glucose Random 91 mg/dL (60-115); Magnesium 2.2 mg/dL (1.6-2.6); Potassium 3.5 mmol/L (3.3-5.1); Sodium 142 mmol/L (135-145)
[2020-06-17] MEDS: Furosemide 40 MG/4 ML VIAL IVPUSH (08:26)
[2020-06-17] MEDS: QUEtiapine Fumarate 50 MG TABLET PO (08:28)
[2020-06-17] MEDS: amLODIPine Besylate 5 MG TABLET PO (08:29)
[2020-06-17] MEDS: carvediloL 12.5 MG TABLET PO ×2 (08:29→21:19)
[2020-06-17] MEDS: Sertraline HCL 100 MG TABLET 200 MG PO (08:29)
[2020-06-17] MEDS: Baclofen 10 MG TABLET PO ×3 (08:29→21:18)
--- NOTE | 2020-06-17 09:54 | HO.PM.IMPN ---
Subjective Subjective Date of Service: 06/17/20 Interval History: pt interviewed in [facility] O2 weaned down to 2L dyspnea improved denies chest pain Physical Exam Vital Signs: Vital Signs: Last Vital Signs Temp 97.7 F 06/17/20 08:00 Pulse 83 06/17/20 08:00 Resp 22 H 06/17/20 08:00 BP 152/92 H 06/17/20 08:00 Pulse Ox 95 06/17/20 08:00 Body Mass Index 32.4 Gen: in no acute distress HEENT: sclera anicteric, moist mucus membranes Neck: supple Lungs: diminished at L base Heart: regular rate and rhythm, no murmurs Abd: soft, obese, non-tender, non-distended Ext: trace BLE edema Skin: warm/well-perfused Neuro: alert and oriented x3, no focal findings Psych: appropriate affect Objective Data Current Medications Generic Name Dose Route Start Last Admin Trade Name Freq PRN Reason Stop Dose Admin Acetaminophen 650 mg 06/15/20 22:38 Acetaminophen 325 Mg Tablet PO Q6H PRN Pain, Mild (Pain Scale 1-3) Albuterol/Ipratropium 3 ml 06/16/20 08:00 06/17/20 07:29 Albuterol/Iprat 2.5/0.5mg 3 Ml Ampul.Neb INHALE 3 ml RQ4H WHILE AWAKE WALDEMAR Administration Albuterol/Ipratropium 3 ml 06/15/20 22:38 Albuterol/Iprat 2.5/0.5mg 3 Ml Ampul.Neb INHALE RQ4H PRN Shortness of Breath/Wheezing Amlodipine Besylate 5 mg 06/16/20 09:00 06/17/20 08:29 Amlodipine Besylate 5 Mg Tablet PO 5 mg DAILY WALDEMAR Administration Protocol Atorvastatin Calcium 20 mg 06/16/20 21:00 06/16/20 21:42 Atorvastatin Calcium 20 Mg Tablet PO 20 mg BEDTIME WAL[facility]MAR Administration Baclofen 10 mg 06/16/20 09:00 06/17/20 08:29 Baclofen 10 Mg Tablet PO 10 mg TID WALDEMAR Administration Carvedilol 12.5 mg 06/16/20 09:00 06/17/20 08:29 Carvedilol 12.5 Mg Tablet PO 12.5 mg BID WALDEMAR Administration Protocol Docusate Sodium 100 mg 06/15/20 22:38 Docusate Sodium 100 Mg Capsule PO DAILY PRN Constipation Doxycycline Hyclate 100 mg 06/16/20 09:00 06/17/20 09:22 Doxycycline Hyclate 100 Mg Tablet PO 100 mg Q12H WALDEMAR Administration Enoxaparin Sodium 40 mg 06/16/20 12:00 06/16/20 12:38 Enoxaparin Sodium 40 Mg/0.4 Ml Syringe SUBCUT 40 mg Q24H WALDEMAR Administration Furosemide 40 mg 06/17/20 09:00 06/17/20 08:26 Furosemide 40 Mg/4 Ml Vial IVPUSH 40 mg DAILY WALDEMAR Administration Protocol Ceftriaxone Sodium 1 gm/ 50 mls @ 100 mls/hr 06/16/20 22:00 06/16/20 22:10 Sodium Chloride IV Infused Q24H [facility]MAR Infusion Insulin Human Lispro 0 unit 06/16/20 07:30 06/17/20 08:29 Insulin Lispro 100 Unit/Ml 3 Ml Vial SUBCUT Not Given QIDACHS [facility] Protocol Lisinopril 20 mg 06/16/20 09:00 06/17/20 08:29 Lisinopril 20 Mg Tablet PO 20 mg DAILY WALDEMAR Administration Protocol Meclizine HCl 25 mg 06/16/20 05:45 Meclizine Hcl 25 Mg Tablet PO TID PRN dizziness Methylprednisolone Sodium Succinate 40 mg 06/17/20 09:00 06/17/20 08:28 Methylprednisolone Sod Succ/Pf 40 Mg/Ml Vial IVPUSH 40 mg DAILY WALDEMAR Administration Montelukast Sodium 10 mg 06/16/20 21:00 06/16/20 21:42 Montelukast Sodium 10 Mg Tablet PO 10 mg BEDTIME WALDEMAR Administration Ondansetron HCl 4 mg 06/15/20 22:38 Ondansetron Hcl 4 Mg/2 Ml Vial IVPUSH Q8H PRN Nausea and Vomiting Quetiapine Fumarate 50 mg 06/16/20 09:00 06/17/20 08:28 Quetiapine Fumarate 50 Mg Tablet PO 50 mg BID WALDEMAR Administration Sertraline HCl 200 mg 06/16/20 09:00 06/17/20 08:29 Sertraline Hcl 100 Mg Tablet PO 200 mg DAILY WALDEMAR Administration Sodium Chloride 3 ml 06/16/20 00:00 06/17/20 08:27 0.9 % Sodium Chloride Flush 3 Ml Syringe IVFLUSH 3 ml QSHIFT [facility] Administration Tiotropium [place] 1 puff 06/16/20 09:00 06/17/20 07:32 Tiotropium [place] 18 Mcg Cap.W.Dev INHALE Not Given DAILY WALDEMAR Tramadol HCl 50 mg 06/16/20 05:45 Tramadol Hcl 50 Mg Tablet PO BID PRN pain Trazodone HCl 50 - 100 mg 06/16/20 05:45 Trazodone Hcl 50 Mg Tablet PO BEDTIME PRN Sleep Labs CBC & Chem 7: 06/17/20 06:20 06/17/20 06:20 Labs: Laboratory Results - last 24 hr 06/16/20 06/16/20 06/16/20 05:54 05:55 11:28 WBC RBC Hgb Hct MCV MCH MCHC RDW Plt Count MPV Immature Gran % (Auto) Neut % (Auto) Lymph % (Auto) [place] % (Auto) Eos % (Auto) Baso % (Auto) Lymph # (Auto) [place] # (Auto) Eos # (Auto) Baso # (Auto) Abs Immat Gran (auto) Absolute Neuts (auto) Absolute Nucleated RBC Nucleated RBC % (auto) Sodium Potassium Chloride Carbon Dioxide Anion Gap BUN Creatinine Estim Creat Clear Calc Estimated GFR POC Glucose 144 H Random Glucose Estimat Average Glucose 108 Hemoglobin A1c % 5.4 Calcium Magnesium 2.6 B-Natriuretic Peptide Respiratory Panel Joseph Adenovirus (Rapid PCR) B.pert (TEM-PCR) B.parapertussis DNA PCR C. pneumoniae DNA (PCR) Coronavirus OC43 (PCR) Coronavirus HKU1 (PCR) Coronavirus 229E (PCR) Coronavirus NL63 (PCR) Human Metapneumovir PCR Influenza A (RT-PCR) Influenza B (RT-PCR) Ur L.pneumophila Ag M. pneumoniae (PCR) Parainfluenza 1 (PCR) Parainfluenza 2 (PCR) Parainfluenza 3 (PCR) Parainfluenza 4 (PCR) RSV (PCR) Entero/Rhino (PCR) SARS-CoV-2 RNA (RT-PCR) 06/16/20 06/16/20 06/16/20 12:51 14:25 16:39 WBC RBC Hgb Hct MCV MCH MCHC RDW Plt Count MPV Immature Gran % (Auto) Neut % (Auto) Lymph % (Auto) [place] % (Auto) Eos % (Auto) Baso % (Auto) Lymph # (Auto) [place] # (Auto) Eos # (Auto) Baso # (Auto) Abs Immat Gran (auto) Absolute Neuts (auto) Absolute Nucleated RBC Nucleated RBC % (auto) Sodium Potassium Chloride Carbon Dioxide Anion Gap BUN Creatinine Estim Creat Clear Calc Estimated GFR POC Glucose 116 H Random Glucose Estimat Average Glucose Hemoglobin A1c % Calcium Magnesium B-Natriuretic Peptide Respiratory Panel Joseph See Note Adenovirus (Rapid PCR) Not Detected B.pert (TEM-PCR) Not Detected B.parapertussis DNA PCR Not Detected C. pneumoniae DNA (PCR) Not Detected Coronavirus OC43 (PCR) Not Detected Coronavirus HKU1 (PCR) Not Detected Coronavirus 229E (PCR) Not Detected Coronavirus NL63 (PCR) Not Detected Human Metapneumovir PCR Not Detected Influenza A (RT-PCR) Not Detected Influenza B (RT-PCR) Not Detected Ur L.pneumophila Ag Cancelled M. pneumoniae (PCR) Not Detected Parainfluenza 1 (PCR) Not Detected Parainfluenza 2 (PCR) Not Detected Parainfluenza 3 (PCR) Not Detected Parainfluenza 4 (PCR) Not Detected RSV (PCR) Not Detected Entero/Rhino (PCR) Not Detected SARS-CoV-2 RNA (RT-PCR) Not Detected 06/16/20 06/17/20 06/17/20 20:01 06:20 06:20 WBC 8.5 RBC 3.97 L Hgb 9.9 L Hct 32.7 L MCV 82.4 MCH 24.9 L MCHC 30.3 L RDW 17.0 H Plt Count 204 MPV 11.4 Immature Gran % (Auto) 0.5 H Neut % (Auto) 74.5 H Lymph % (Auto) 20.5 [place] % (Auto) 4.2 Eos % (Auto) 0.2 Baso % (Auto) 0.1 Lymph # (Auto) 1.8 [place] # (Auto) 0.4 Eos # (Auto) 0.0 Baso # (Auto) 0.0 Abs Immat Gran (auto) 0.04 H Absolute Neuts (auto) 6.3 Absolute Nucleated RBC 0.000 Nucleated RBC % (auto) 0.0 Sodium 142 Potassium 3.5 Chloride 104 Carbon Dioxide 28 Anion Gap 14 BUN 20 H D Creatinine 0.81 Estim Creat Clear Calc 65.8 Estimated GFR > 60 POC Glucose 114 Random Glucose 91 D Estimat Average Glucose Hemoglobin A1c % Calcium 8.8 Magnesium 2.2 B-Natriuretic Peptide Respiratory Panel Joseph Adenovirus (Rapid PCR) B.pert (TEM-PCR) B.parapertussis DNA PCR C. pneumoniae DNA (PCR) Coronavirus OC43 (PCR) Coronavirus HKU1 (PCR) Coronavirus 229E (PCR) Coronavirus NL63 (PCR) Human Metapneumovir PCR Influenza A (RT-PCR) Influenza B (RT-PCR) Ur L.pneumophila Ag M. pneumoniae (PCR) Parainfluenza 1 (PCR) Parainfluenza 2 (PCR) Parainfluenza 3 (PCR) Parainfluenza 4 (PCR) RSV (PCR) Entero/Rhino (PCR) SARS-CoV-2 RNA (RT-PCR) 06/17/20 06/17/20 06:20 07:32 WBC RBC Hgb Hct MCV MCH MCHC RDW Plt Count MPV Immature Gran % (Auto) Neut % (Auto) Lymph % (Auto) [place] % (Auto) Eos % (Auto) Baso % (Auto) Lymph # (Auto) [place] # (Auto) Eos # (Auto) Baso # (Auto) Abs Immat Gran (auto) Absolute Neuts (auto) Absolute Nucleated RBC Nucleated RBC % (auto) Sodium Potassium Chloride Carbon Dioxide Anion Gap BUN Creatinine Estim Creat Clear Calc Estimated GFR POC Glucose 86 Random Glucose Estimat Average Glucose Hemoglobin A1c % Calcium Magnesium B-Natriuretic Peptide 1211 H Respiratory Panel Joseph Adenovirus (Rapid PCR) B.pert (TEM-PCR) B.parapertussis DNA PCR C. pneumoniae DNA (PCR) Coronavirus OC43 (PCR) Coronavirus HKU1 (PCR) Coronavirus 229E (PCR) Coronavirus NL63 (PCR) Human Metapneumovir PCR Influenza A (RT-PCR) Influenza B (RT-PCR) Ur L.pneumophila Ag M. pneumoniae (PCR) Parainfluenza 1 (PCR) Parainfluenza 2 (PCR) Parainfluenza 3 (PCR) Parainfluenza 4 (PCR) RSV (PCR) Entero/Rhino (PCR) SARS-CoV-2 RNA (RT-PCR) Microbiology Microbiology Results: Microbiology 06/15/20 21:32 Blood - Venous Blood Culture - Preliminary No growth after 24 hours. 06/15/20 20:42 Blood - Venous Blood Culture - Preliminary No growth after 24 hours. Assessment and Plan (1) Acute and chronic respiratory failure with hypoxia: Status: Acute (2) Pneumonia: Status: Acute (3) Severe chronic obstructive pulmonary disease: Status: Acute Assessment and Plan: hospital d#3 59yo F with COPD, chronic hypoxic respiratory failure on 2L O2 via NC, HFrEF [LVEF 40% 01/17/20], HTN, DM2 presented with dyspnea x1d, admitted for acute/chronic hypoxia due to PNA with associated COPD exacerbation and CHF exacerbation # CAP - continue ceftriaxone #3, changed azithromycin to doxycycline d#2 - respiratory virus panel negative - follow BCx, pneumococcal + Legionella UAgs, trend PCT # COPD exacerbation - continue methylprednisolone d#3, prn nebs - continue LAMA # acute/chronic hypoxic respiratory failure - back on home requirement of 2L via NC # HFrEF, acute/chronic - will give IV furosemide. TTE ordered. continue lisinopril + carvedilol # QT prolongation - d/c'ed azithromycin. caution with quetiapine. Mg >2, will give KCl to keep K >4. recheck EKG # troponin elevation - suspect demand ischemia from above issues and underlying HFrEF; delta <50% and no chest pain or ischemic EKG changes # HTN - continue lisinopril, carvedilol, amlodipine # DM2 - correction-dose lispro. A1c only 5.4 # mood disorder - continue quetiapine, sertraline # VTE ppx - LMWH # dispo - anticipate eventual home with VNA. 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
[2020-06-17 11:31] LABS: Glucose, Whole Blood 129 mg/dL (60-115)
[2020-06-17] MEDS: Potassium Chloride ER 20 MEQ TAB.ER.PRT 40 MEQ PO (11:46)
[2020-06-17] MEDS: Enoxaparin Sodium 40 MG/0.4 ML SYRINGE SUBCUT (11:47)
[2020-06-17 16:10] LABS: Glucose, Whole Blood 104 mg/dL (60-115)
--- NOTE | 2020-06-17 16:12 | MHC.CM.PN ---
[employer] OPERATIONS MAN COMPLETED USING EMR, PT SLEEPING X2. PT LIVES ALONE AND HAS [employer] TO ASSIST WITH ADLS. PT IS OXYGEN DEPENDENT AT BASELINE. O2 PROVIDED BY [facility]. PT AHS A HCP ON FILE AND HER PCP IS KENJI BARRERA CURRENT DC PLAN IS HOME WITH RESUMPTION OF [employer] AND HOME O2 VIA PRIVATE TRANSPORT
[2020-06-17 20:11] LABS: Glucose, Whole Blood 96 mg/dL (60-115)
[2020-06-17] MEDS: cefTRIAXone sodium 1 GM in 0.9 % Sodium Chloride 50 ML IV (21:17)
[2020-06-17] MEDS: Montelukast Sodium 10 MG TABLET PO (21:18)
[2020-06-17] MEDS: Atorvastatin Calcium 20 MG TABLET PO (21:18)
[2020-06-18] VITALS (9 sets, daily range): BP systolic 130–166; BP diastolic 84–94; PULSE 78–93; RESP 18–22; TEMP 35.8–36.4; O2SAT 92–98
[2020-06-18] MEDS: 0.9 % Sodium Chloride Flush 3 ML SYRINGE IVFLUSH ×2 (00:41→09:05)
[2020-06-18 06:33] LABS: MANUAL DIFF FLAG NO
[2020-06-18 06:53] LABS: Basophils Percent Auto 0.1 % (0-2); Eosinophils Percent Auto 0.1 % (0-4); Hematocrit 33.2 % (37-47); Hemoglobin 9.9 g/dl (12.0-16.0); Imm Gran Abs Auto 0.03 X10*3/uL (0.00-0.03); Imm Gran Pct Auto 0.4 % (0.0-0.4); Lymphocytes Absolute Auto 1.9 X10*3/uL (1.2-4.9); Lymphocytes Percent Auto 25.8 % (20-40); Mean Corpuscular HGB Conc 29.8 g/dl (31.0-35.0); Mean Corpuscular Hemoglobin 24.7 pg (27.0-33.0); Mean Corpuscular Volume 82.8 fL (80-98); Mean Platelet Volume 10.6 fL (9.4-12.3); Monocytes Absolute Auto 0.6 X10*3/uL (0.1-1.2); Monocytes Percent Auto 7.4 % (2-11); Neutrophils Absolute Auto 4.9 X10*3/uL (2.0-8.3); Neutrophils Percent Auto 66.2 % (45-73); Platelet Count 204 X10*3/uL (160-400); Red Blood Count 4.01 X10*6/uL (4.20-5.50); Red Cell Distribution Width 17.1 % (11.0-16.0); White Blood Count 7.4 X10*3/uL (4.8-10.8)
[2020-06-18 07:03] LABS: B Type Natriuretic Peptide 908 pg/mL (<100)
[2020-06-18 07:19] LABS: Anion Gap 12 (12-20); Blood Urea Nitrogen 22 mg/dL (9-16); Calcium 9.1 mg/dL (8.4-10.2); Carbon Dioxide 31 mmol/L (22-29); Chloride 104 mmol/L (96-108); Creatinine Clr Calc Pharmacy 66.6; Estimated Glomerular Filt Rate > 60; Glucose Random 85 mg/dL (60-115); Potassium 4.4 mmol/L (3.3-5.1); Sodium 143 mmol/L (135-145)
[2020-06-18 07:20] LABS: Procalcitonin 0.04 ng/mL
[2020-06-18 07:36] LABS: Glucose, Whole Blood 96 mg/dL (60-115)
--- NOTE | 2020-06-18 08:00 | CA_ITS ---
Transthoracic Echocardiogram Patient (Last, First, Middle): Paola Romero, Gender: Female Date of : 1960 Age: 59 Procedure Date: 06/18/2020 Procedure Type: Transthoracic Echocardiogram Location: [facility] [place] Height: 149.86 cm Weight: 72.58 kg BSA: 1.68 m2 Heart Rate: bpm BP: 150 / 90 mmHg Personal Lines Sales Executive: AMELIA Crow MD: Ashutosh Card MD Symptoms: troponin elevation Study Quality: Good Conclusions: - The left ventricular systolic function is moderately decreased. The visually estimated ejection fraction is between 30-35%. There is moderate global hypokinesis. - Elevated filling pressures. - Normal right ventricular cavity size and systolic function. - The left atrium is severely dilated. - There is moderate tricuspid valve regurgitation. Mildly elevated right atrial pressure. Moderate pulmonary hypertension is present. - There is mild dilatation of the ascending aorta measuring 3.70 cm. Findings Left Ventricle Normal left ventricular cavity size. There is mildly increased left ventricular wall thickness. The left ventricular systolic function is moderately decreased. The visually estimated ejection fraction is between 30 35%. There is moderate global hypokinesis. Abnormal diastolic function is noted. Elevated filling pressures. Right Ventricle Normal right ventricular cavity size and systolic function. Atria The left atrium is severely dilated. The right atrium is normal in size. Aortic Valve Normal aortic valve structure and function. There is no aortic valve stenosis. There is no aortic valve regurgitation. Mitral Valve The mitral valve appears normal. There is moderate mitral valve regurgitation. There is no mitral valve stenosis. Pulmonic Valve Normal pulmonic valve structure and function. There is trace pulmonic valve regurgitation. Tricuspid Valve Normal tricuspid valve structure. There is moderate tricuspid valve regurgitation. Mildly elevated right atrial pressure. Moderate pulmonary hypertension is present. Great Vessels There is mild dilatation of the ascending aorta measuring 3.70 cm. The visualized portions of the pulmonary artery and branches are normal. Venous The inferior vena cava is dilated and collapses greater than 50% with inspiration. Pericardium/Pleural There is no evidence of pericardial effusion. Prior Study Comparison Changes noted compared to prior study dated: 01/17/2020. EF 30-35%, severely dilated LA. Measurements 2D Linear Measurements IVSd: 1.13 0.6-0.9/0.6-1.0 cm LVIDd: 5.69 3.9-5.3/4.2-5.9 cm LVIDd Index: 3.39 2.4-3.2/2.2-3.1 cm/m2 LVIDs: 4.15 2.0-3.6 cm LVPWd: 1.14 0.7-1.1 cm Ao Root: 3.20 2.1-3.5 cm LA Diam: 4.60 2.7-3.8/3.0-4.0 cm LAIDs Index: 2.74 1.5-2.3 cm/m2 LV Mass: 332.94 67-162/88-224 g LV Mass Index: 198.18 43-95/49-115 g/m2 LVOT Diam: 2.20 3.0+(-)1.3 cm 2D Systolic Function EF 4C: 44.50 >55% EF 2C: 40.60 >55% Mitral Valve MV Pk E: 0.70 MV PK A: 0.84 MV Decel Time: 256.00 E/A: 0.80 E'Lateral: 3.92 E'Medial: 2.83 E/E' Med: 24.70 E/E' Lat: 17.80 PHT: 75.00 MVA PHT: 2.93 Decel Jenkins: 2.73 MR Vol - PW Dopp: 84.36 MR VTI: 2.28 MR ERO: 37.00 MR Alias Ambrosio: 0.36 MR RAD: 1.00 Aortic Valve AoV Pk Ambrosio: 1.22 AoV Mn Ambrosio: 0.79 AoV VTI: 0.22 AoV Pk Grad: 6.00 Aov Mn Grad: 3.00 PEPITO Cont.VTI: 2.29 LVOT LVOT Pk Ambrosio: 0.77 LVOT Mn Ambrosio: 0.49 LVOT VTI: 0.13 LVOT Pk Grad: 2.00 LVOT Mn Grad: 1.00 LVOT Diam: 2.20 LVOT Area: 3.80 Diastolic Function MV Pk E: 0.70 MV Pk A: 0.84 E/A: 0.80 E'Medial: 2.83 E/E' Med: 24.70 E' Laterial: 3.92 E/E' Lat: 17.80 Tricuspid Valve TR Pk Ambrosio: 3.38 TR Pk Grad: 46.00 RA Press: 8.00 RVSP: 54.00 Great Vessels Aorta Ao Root-2D: 3.20 2.0-3.7 cm Ao Asc: 3.70 2.1-3.4 cm Ao Arch: 2.30 Updated in Other Vendor System with Status of Final Kemar Curry MD electronically signed on 06/18/2020 2:22:51 PM with status of Final
[2020-06-18] MEDS: Albuterol/Iprat 2.5/0.5MG 3 ML AMPUL.NEB INHALE ×3 (08:31→15:57)
[2020-06-18] MEDS: Sertraline HCL 100 MG TABLET 200 MG PO (09:03)
[2020-06-18] MEDS: amLODIPine Besylate 5 MG TABLET PO (09:04)
[2020-06-18] MEDS: Baclofen 10 MG TABLET PO (09:05)
[2020-06-18] MEDS: carvediloL 12.5 MG TABLET PO (09:05)
[2020-06-18] MEDS: Furosemide 40 MG/4 ML VIAL IVPUSH (09:05)
--- NOTE | 2020-06-18 10:19 | P.DS_ITS ---
DS: Providers Provider Date of Service: 06/18/20 Date of admission: 06/15/20 22:17 Primary care physician: Unknown Physician Consults: 06/17/20 10:48 Consult to Psychiatry Routine Consulting Provider: Psych Covering Reason for consultation: QTc prolonged on sertraline 200 mg + quetiapine 50 mg bid- d/c'ing the latt 06/17/20 10:50 Consult to Psychiatry Routine Consulting Provider: Psych Covering Reason for consultation: QTc prolonged on sertraline 200mg/d + quetiapine 50mg bid; d/c'ing the latt DS: Diagnosis Discharge Diagnosis (1) Acute and chronic respiratory failure with hypoxia: Status: Acute (2) Pneumonia: Status: Acute (3) Severe chronic obstructive pulmonary disease: Status: Acute DS: Medications Discharge Medications Home Medications: Home Medications Medication Instructions Recorded Confirmed furosemide 1 tab PO QAM 03/08/20 06/16/20 metformin 1 tab PO BID 03/08/20 06/16/20 montelukast 1 tab PO BEDTIME 03/08/20 06/16/20 omeprazole 20 mg PO DAILY@0630 03/08/20 06/16/20 quetiapine 1 tab PO BID 03/08/20 06/16/20 sertraline 2 tab PO DAILY 03/08/20 06/16/20 trazodone 50 - 100 mg PO BEDTIME PRN 03/08/20 06/16/20 simvastatin 40 mg tablet 40 mg PO BEDTIME 05/21/20 06/16/20 Previous Rx's Medication Instructions Recorded amlodipine 5 mg PO DAILY #30 tab 03/11/20 lisinopril 20 mg PO DAILY #30 tab 03/11/20 ipratropium 0.5 mg-albuterol 3 mg 1 ml INHALATION QID #360 ml 03/14/20 (2.5 mg base)/3 mL nebulization soln carvedilol 12.5 mg tablet 12.5 mg PO BID #60 tab 04/17/20 albuterol sulfate 4 inh INHALATION QID #18 g 05/02/20 meclizine 25 mg tablet 25 mg PO TID PRN 30 Days #90 tab 05/10/20 tiotropium bromide 18 mcg capsule 1 cap INHALATION DAILY 30 Days #30 05/20/20 with inhalation device inh tramadol 50 mg tablet 50 mg PO BID PRN 30 Days #60 tab 05/21/20 baclofen 10 mg tablet 10 mg PO TID 7 Days #21 tab 06/08/20 cefuroxime axetil 500 mg PO Q12H #10 tab 06/18/20 prednisone 40 mg PO DAILY #10 tab 06/18/20 DS: Summary Hospital Course Hospital Course: Was admitted for acute on chronic hypoxic respiratory failure secondary to COPD exacerbation, acute on chronic systolic CHF, pneumonia. She was given steroids, bronchodilators, IV Lasix, empiric antibiotics. Symptoms significantly improved. She was able to be weaned to her regular chronic oxygen level. She is feeling back to baseline. She will be discharged on 5 more days of p.o. prednisone and 5 more days of Ceftin. Time Spent with Patient Time attestation: Total time spent providing and/or coordinating discharge services: Discharge coordination time: Greater than 30 minutes Physical Exam Vital Signs: Vital Signs: Last Vital Signs Temp 96.9 F 06/18/20 06:53 Pulse 88 06/18/20 09:05 Resp 22 H 06/18/20 06:53 BP 150/90 H 06/18/20 09:05 Pulse Ox 97 06/18/20 06:53 Body Mass Index 32.4 General: AO X 3, no acute distress Resp: diminished CVS: S1,S2,RRR GI: soft, non tender, non distended Neuro: motor grossly intact Psych: appropriate affect DS: Data Data Completed and Pending Labs on day of discharge: Laboratory Results - last 24 hr 06/17/20 06/17/20 06/17/20 11:21 16:01 20:08 WBC RBC Hgb Hct MCV MCH MCHC RDW Plt Count MPV Immature Gran % (Auto) Neut % (Auto) Lymph % (Auto) Wilkinson % (Auto) Eos % (Auto) Baso % (Auto) Lymph # (Auto) Wilkinson # (Auto) Eos # (Auto) Baso # (Auto) Abs Immat Gran (auto) Absolute Neuts (auto) Absolute Nucleated RBC Nucleated RBC % (auto) Sodium Potassium Chloride Carbon Dioxide Anion Gap BUN Creatinine Estim Creat Clear Calc Estimated GFR POC Glucose 129 H 104 96 Random Glucose Calcium Magnesium B-Natriuretic Peptide Procalcitonin 06/18/20 06/18/20 06/18/20 05:40 05:40 05:40 WBC 7.4 RBC 4.01 L Hgb 9.9 L Hct 33.2 L MCV 82.8 MCH 24.7 L MCHC 29.8 L RDW 17.1 H Plt Count 204 MPV 10.6 Immature Gran % (Auto) 0.4 Neut % (Auto) 66.2 Lymph % (Auto) 25.8 Wilkinson % (Auto) 7.4 Eos % (Auto) 0.1 Baso % (Auto) 0.1 Lymph # (Auto) 1.9 Wilkinson # (Auto) 0.6 Eos # (Auto) 0.0 Baso # (Auto) 0.0 Abs Immat Gran (auto) 0.03 Absolute Neuts (auto) 4.9 Absolute Nucleated RBC 0.000 Nucleated RBC % (auto) 0.0 Sodium 143 Potassium 4.4 D Chloride 104 Carbon Dioxide 31 H Anion Gap 12 BUN 22 H Creatinine 0.80 Estim Creat Clear Calc 66.6 Estimated GFR > 60 POC Glucose Random Glucose 85 Calcium 9.1 Magnesium 2.0 B-Natriuretic Peptide 908 H Procalcitonin 06/18/20 06/18/20 05:40 07:33 WBC RBC Hgb Hct MCV MCH MCHC RDW Plt Count MPV Immature Gran % (Auto) Neut % (Auto) Lymph % (Auto) Wilkinson % (Auto) Eos % (Auto) Baso % (Auto) Lymph # (Auto) Wilkinson # (Auto) Eos # (Auto) Baso # (Auto) Abs Immat Gran (auto) Absolute Neuts (auto) Absolute Nucleated RBC Nucleated RBC % (auto) Sodium Potassium Chloride Carbon Dioxide Anion Gap BUN Creatinine Estim Creat Clear Calc Estimated GFR POC Glucose 96 Random Glucose Calcium Magnesium B-Natriuretic Peptide Procalcitonin 0.04 Preliminary micro results at discharge 06/15/20 21:32 Blood Culture - Preliminary Blood - Venous No growth after 48 hours. 06/15/20 20:42 Blood Culture - Preliminary Blood - Venous No growth after 48 hours. Discharge Plan Discharge Patient Disposition: Home, Self-Care Referrals: Physician,Unknown [Primary Care Provider] - Discharge Medications: New cefuroxime axetil 250 mg tablet 500 mg PO Q12H Qty: 10 RF: 0 Continued ipratropium-albuterol 0.5 mg-3 mg(2.5 mg base)/3 mL solution for nebulization 1 ml inhalation QID Qty: 360 RF: 6 carvedilol 12.5 mg tablet 12.5 mg PO BID Qty: 60 RF: 3 meclizine 25 mg tablet 25 mg PO TID PRN (Reason: dizziness) 30 Days Qty: 90 RF: 3 tiotropium bromide [Spiriva with HandiHaler] 18 mcg capsule, w/inhalation device 1 cap inhalation DAILY 30 Days Qty: 30 RF: 5 baclofen 10 mg tablet 10 mg PO TID 7 Days Qty: 21 RF: 6 omeprazole 20 mg capsule,delayed release(DR/EC) 20 mg PO DAILY@0630 RF: 0 trazodone 50 mg tablet 50 - 100 mg PO BEDTIME PRN (Reason: Sleep) RF: 0 furosemide 40 mg tablet 1 tab PO QAM RF: 0 sertraline 100 mg tablet 2 tab PO DAILY RF: 0 metformin 1,000 mg tablet 1 tab PO BID RF: 0 montelukast 10 mg tablet 1 tab PO BEDTIME RF: 0 quetiapine 50 mg tablet 1 tab PO BID RF: 0 lisinopril 20 mg Tablet 20 mg PO DAILY Qty: 30 RF: 0 amlodipine 5 mg Tablet 5 mg PO DAILY Qty: 30 RF: 0 albuterol sulfate 90 mcg/actuation HFA aerosol inhaler 4 inh inhalation QID Qty: 18 RF: 0 simvastatin 40 mg tablet 40 mg PO BEDTIME RF: 0 tramadol 50 mg tablet 50 mg PO BID PRN (Reason: pain) 30 Days Qty: 60 RF: 0 Changed prednisone 20 mg tablet 40 mg PO DAILY Qty: 10 RF: 0 Discharge Orders: Discharge Order (Routine); Ordered 06/18/20 Ordered By: Ethan Santamaria Activity on Discharge: As tolerated Stand Alone Forms: Patient Portal Discharge page Visit Report Forms: Patient Portal Discharge page Care Plan Goals: recovery Health Concerns: chf, copd, pna Plan of Treatment: prednisone, ceftin
--- NOTE | 2020-06-18 10:34 | MHC.CM.PN ---
pt dcd home with resumption of preadmission servceis pt to arrange own tranport home
[2020-06-18 11:14] LABS: Glucose, Whole Blood 125 mg/dL (60-115)
[2020-06-19 21:02] LABS: Strep Pneumo Ag urine Not Detected (Not Detected)
[2020-06-21 11:41] LABS: Legionella Ag Urine Not Detected (Not Detected)
[2020-06-21 11:41] LABS: Legionella Ag Urine Not Detected (Not Detected)
== END 2020-06-18 16:20 | disposition home or self-care (01) | DRG 140 ==
LOC: HO.ED 19:45 → HO.IMC 22:33
PROVIDERS: Family Medicine; Admitting Provider Internal Medicine; Emergency Provider Emergency Medicine; Visit Provider Internal Medicine
DX: J44.0 Chronic obstructive pulmonary disease with (acute) lower respiratory infection (principal); J96.21 Acute and chronic respiratory failure with hypoxia; J18.9 Pneumonia, unspecified organism; I11.0 Hypertensive heart disease with heart failure; Z99.81 Dependence on supplemental oxygen; I50.22 Chronic systolic (congestive) heart failure; J44.1 Chronic obstructive pulmonary disease with (acute) exacerbation; F41.9 Anxiety disorder, unspecified; R94.31 Abnormal electrocardiogram [ECG] [EKG]; F17.210 Nicotine dependence, cigarettes, uncomplicated; Z71.6 Tobacco abuse counseling; Z20.822 Contact with and (suspected) exposure to COVID-19; Z79.52 Long term (current) use of systemic steroids; Z79.891 Long term (current) use of opiate analgesic; Z79.899 Other long term (current) drug therapy
CPT/HCPCS: 36415; 71045; 80048; 82728; 82947; 83036; 83605; 83615; 83690; 83735; 83880; 84145; 84484; 85025; 86140; 87040; 87449; 87633; 87635; 87899; 93005; 93306; 94640; 94644; 96365; 96366; 96375; 99285; J0696; J1650; J1940; J2920; J2930; J3475

== ENCOUNTER 2020-07-27 09:54 | Inpatient (IN) | payer OTHER, SELFPAY ==
[2020-07-27] VITALS (19 sets, daily range): BP systolic 143–190; BP diastolic 79–131; PULSE 76–127; RESP 14–26; TEMP 36.1–36.9; O2SAT 94–100; BMI 22.3
--- NOTE | 2020-07-27 | ECG_ITS ---
Test Reason : HYPERTENSION Blood Pressure : / mmHG Vent. Rate : 111 BPM Atrial Rate : 111 BPM P-R Int : 122 ms QRS Dur : 120 ms QT Int : 392 ms P-R-T Axes : 018 020 -03 degrees QTc Int : 533 ms Sinus tachycardia RSR' or QR pattern in V1 suggests right ventricular conduction delay Nonspecific ST abnormality Abnormal ECG When compared with ECG of 17-JUN-2020 10:27, No significant change was found Referred By: Roscoe Mercado Electronically Signed By:NATALIA SHANNON
--- NOTE | ~2020-07-27 | XR_ITS ---
EXAMINATION: XR CHEST CLINICAL INFORMATION: Shortness of breath COMPARISON: June 15, 2020 TECHNIQUE: 2 views of the chest were obtained. FINDINGS: Since previous study there has been resolution of airspace disease that was seen within the left lower lobe. The cardiopericardial silhouette is enlarged. There is some prominence of interstitial markings consistent with some degree of pulmonary vascular congestion. No definite confluent disease to suggest pneumonia or airspace edema is seen. No pneumothorax or significant pleural effusion. XR/XR chest 2V IMPRESSION: Resolved right lower lobe pneumonia. Cardiomegaly with mild pulmonary vascular congestion.
--- NOTE | 2020-07-27 10:28 | ED_ITS ---
HPI - Chest Pain General Chief Complaint: Chest Pain Stated Complaint: chest pain htn Time Seen by Provider: 07/27/20 10:28 Source: patient Mode of arrival: EMS Limitations: language barrier (Patient speaks Lithuanian, certified court interpreter was used to obtain information.) History of Present Illness HPI narrative: 60-year-old female who presents emergency department for evaluation of chest pain and shortness of breath. The patient states that she has been having intermittent chest pain for the last 3 days. She points to her mid sternal area when asked to localize the pain. She describes the pain as I palpitation and pressure-like pain with show last 5 minutes. She gets multiple episodes a day but cannot give a number of episodes per day. She states that occasionally the pain is associated with dizziness, left arm pain and diaphoresis. She currently is not having any chest pain. She states that she does feel short of breath at her baseline and this is worse than usual. She denied fever, chills, cough, change of bowel movements are change or urinary habits. She states she has constant abdominal pain which is unchanged and she has constant back pain which is unchanged. She has not had a COVID-19 infection and she has not been vaccinated for COVID- 19. Related Data Home Medications Medication Instructions Recorded Confirmed furosemide 1 tab PO QAM 03/08/20 07/26/20 metformin 1 tab PO BID 03/08/20 07/26/20 montelukast 1 tab PO BEDTIME 03/08/20 07/26/20 omeprazole 20 mg PO DAILY@0630 03/08/20 07/26/20 quetiapine 1 tab PO BID 03/08/20 07/26/20 sertraline 2 tab PO DAILY 03/08/20 07/26/20 trazodone 50 - 100 mg PO BEDTIME PRN 03/08/20 07/26/20 simvastatin 40 mg tablet 40 mg PO BEDTIME 05/21/20 07/26/20 Previous Rx's Medication Instructions Recorded amlodipine 5 mg PO DAILY #30 tab 03/11/20 lisinopril 20 mg PO DAILY #30 tab 03/11/20 ipratropium 0.5 mg-albuterol 3 mg 1 ml INHALATION QID #360 ml 03/14/20 (2.5 mg base)/3 mL nebulization soln carvedilol 12.5 mg tablet 12.5 mg PO BID #60 tab 04/17/20 albuterol sulfate 4 inh INHALATION QID #18 g 05/02/20 meclizine 25 mg tablet 25 mg PO TID PRN 30 Days #90 tab 05/10/20 tiotropium bromide 18 mcg capsule 1 cap INHALATION DAILY 30 Days #30 05/20/20 with inhalation device inh tramadol 50 mg tablet 50 mg PO BID PRN 30 Days #60 tab 05/21/20 cefuroxime axetil 500 mg PO Q12H #10 tab 06/18/20 folic acid 1 mg PO DAILY #90 tab 07/26/20 Allergies Allergy/AdvReac Type Severity Reaction Status Date / Time nicotine [Nicotine] Allergy Unknown ITCHING Verified 05/21/20 10:40 WITH THE PATCHES topiramate Allergy Unknown inadequealte Verified 05/21/20 10:40 response Review of Systems Review of Systems: Yes all other systems are reviewed and are negative PMFSH Past Medical History Source: unable to obtain Medical History Anxiety Cardiomyopathy Chronic respiratory failure COPD (chronic obstructive pulmonary disease) Depression Diabetes HFrEF (heart failure with reduced ejection fraction) HLD (hyperlipidemia) HTN (hypertension) Low back pain Mitral regurgitation Normocytic anemia KELLIE (obstructive sleep apnea) Postmenopausal Severe chronic obstructive pulmonary disease Supplemental oxygen dependent Surgical History Bilateral ankle fractures History of total abdominal hysterectomy Family History Family History Father No problems noted. Mother Liver cancer Hypertension Social History Social History Household Members: None Housing: Apartment Alcohol intake: never Smoking Status: Current every day smoker Tobacco Type: Cigarette Packs Per Day: 1 Smoked in Last 30 Days: Yes Second Hand Smoke Exposure: No Use of substances other than those prescribed or required for medical reasons: No Advance Directives: Yes Advance Directives on File: Yes Advance Directives Date on File: 04/30/20 service: No Current occupational status: unemployed Physical Exam Vital Signs: Vital Signs: Last Vital Signs Temp 98.4 F 07/27/20 10:02 Pulse 113 H 07/27/20 15:30 Resp 18 07/27/20 15:30 BP 144/97 H 07/27/20 14:55 Pulse Ox 96 07/27/20 14:55 Body Mass Index 22.3 Const: General: cooperative and other (Tachypneic) Orientation/consciousness: oriented to person and oriented to place Limitations: no limitations HENMT: Head: Yes normal to inspection, Yes normocephalic and Yes atraumatic Ears: external ears normal General nose exam: Normal external nose present Face and sinus: Yes normal facial exam Mouth: Normal oral and palatal mucosa present Throat: Yes posterior oropharynx normal Eyes: Periorbital: periorbital findings normal Eyelids: Yes eyelids normal Conjunctivae: conjunctivae normal Sclerae: sclerae normal Corneas: cor neas normal Pupils: Equal, round and reactive pupils present Direct Ophthalmoscopy: normal light reflex Neck: Neck: Yes full ROM, Yes no lymphadenopathy, Yes no meningeal signs, Yes trachea midline and Yes supple Chest: Chest palpation & inspection: normal inspection of the chest and tenderness sternum (Moderate) and other (Right anterior chest, moderate) Resp: Effort & Inspection: able to speak in complete sentences and other (Tachypnea) Auscultation: clear to auscultation bilaterally, no crackles, no rales, no rhonchi and no wheezes Cardio: Rate: regular rate Rhythm: regular rhythm Heart sounds: S1 normal heart sound present, S2 normal heart sound present and no murmurs GI: Inspection: Yes normal to inspection Palpation (GI): Soft to palpation, nontender, no guarding, not rigid and No hepatosplenomegaly present : General: Yes no CVA tenderness Back/Spine/Pelvis: Back: no CVA tenderness Cervical Spine: normal cervical lordosis Thoracic/Lumbar Spine: thoracic and lumbar spine normal to inspection Skin: Lesions: no lesions Rashes: no rashes Wounds: no wounds Neuro: General: oriented to person, oriented to place and no meningeal signs Cranial nerves: Yes CN's II-XII intact bilaterally and Yes Equal, round and reactive pupils present Cognition (Neuro): normal cognition Motor exam (neuro): 5/5 motor strength present throughout Extrem: General: Yes normal to inspection and Yes full ROM Psych: Appearance: well kempt Mental Status: mental status grossly normal Speech and movement: Normal speech and movement present Affect: normal affect Attitude: cooperative Thought process: Normal thought process present Thought content: Normal thought content present Course Course Course Narrative: 60-year-old female with a history of COPD, diabetes mellitus, hypertension, hyperlipidemia and depression who presents emergency department for evaluation of chest pain x3 days and shortness of breath. Physical examination revealed hypertension with a pressure of 190/31 (she did not take her outpatient medications today), tachypnea with a respiratory rate of 23. She was afebrile and O2 saturation was 96% on 2 L of oxygen via nasal cannula. Lung exam initially was clear with no wheezing. She did have significant chest wall tenderness. I did order a laboratory evaluation to include CBC, CMP, troponin, chest x-ray and EKG. 1513: The patient's 12 EKG was unremarkable. Her initial troponin was detectable but not elevated at 15.3. She had mild anemia with an H&H of 10.4 and 33.9. The patient's chest x-ray revealed resolution of a previous left lower lobe pneumonia noted in June 2020. COVID-19 swab was negative. During her course in the emergency department she became more short of breath and developed significant wheezing. She was ordered to get an albuterol nebulizer 5 mg and Solu-Medrol 125 mg IV however she developed increased respiratory distress and was placed on CPAP with improvement of her symptoms. On re- evaluation, her wheezing is present but significantly improved. I ordered a repeat albuterol nebulizer and the patient will be taken off CPAP. Patient will also have a repeat troponin. I will discuss admission with the covering hospitalist. 1545: The patient did receive a nebulizer off CPAP however she is tachypneic and is using accessory muscles to breathe therefore I ordered that the CPAP be placed back on the patient. I will discuss admission with the ICU. 1608: I did discuss the patient's presentation with the light rail train operator. The patient was negative for COVID, I did add her RSV and influenza screen. Also I added a D-dimer, PTT, PT and INR. The patient does appear to have improvement back on CPAP, she will be admitted to intensive care unit for further treatment. MDM - Chest Pain Lab Data Result diagrams: 07/27/20 11:20 07/27/20 11:20 Labs: Lab Results 07/27/20 07/27/20 07/27/20 Range/Units 11:20 11:20 11:20 WBC 6.5 (4.8-10.8) X10*3/uL RBC 4.08 L (4.20-5.50) X10*6/uL Hgb 10.4 L (12.0-16.0) g/dl Hct 33.9 L (37-47) % MCV 83.1 (80-98) fL MCH 25.5 L (27.0-33.0) pg MCHC 30.7 L (31.0-35.0) g/dl RDW 15.6 (11.0-16.0) % Plt Count 173 (160-400) X10*3/uL MPV 10.4 (9.4-12.3) fL Immature Gran % (Auto) 0.3 (0.0-0.4) % Neut % (Auto) 74.1 H (45-73) % Lymph % (Auto) 18.3 L (20-40) % [place] % (Auto) 6.6 (2-11) % Eos % (Auto) 0.5 (0-4) % Baso % (Auto) 0.2 (0-2) % Lymph # (Auto) 1.2 (1.2-4.9) X10*3/uL [place] # (Auto) 0.4 (0.1-1.2) X10*3/uL Eos # (Auto) 0.0 (0.0-0.4) X10*3/uL Baso # (Auto) 0.0 (0.0-0.2) X10*3/uL Abs Immat Gran (auto) 0.02 (0.00-0.03) X10*3/uL Absolute Neuts (auto) 4.8 (2.0-8.3) X10*3/uL Absolute Nucleated RBC 0.000 (0.0-0.012) X10*3/uL Nucleated RBC % (auto) 0.0 (0.0-0.2) /100WBC Sodium 143 (135-145) mmol/L Potassium 4.0 (3.3-5.1) mmol/L Chloride 106 (96-108) mmol/L Carbon Dioxide 26 (22-29) mmol/L Anion Gap 15 (12-20) BUN 9 (9-16) mg/dL Creatinine 0.73 (0.5-1.4) mg/dL Estim Creat Clear Calc 92.7 Estimated GFR > 60 Random Glucose 120 H (60-115) mg/dL Calcium 8.8 (8.4-10.2) mg/dL Total Bilirubin 0.3 (0.0-1.0) mg/dL AST 15 (5-31) U/L ALT 8 (0-31) U/L Alkaline Phosphatase 164 H (39-117) U/L Troponin I High Sens 15.3 D (<3.5-17.0) ng/L Total Protein 7.2 (6.5-8.0) g/dL Albumin 4.1 (3.5-5.0) g/dL COVID-19 (ANEL) (Negative) COVID-19 Clin Com 07/27/20 Range/Units 11:20 WBC (4.8-10.8) X10*3/uL RBC (4.20-5.50) X10*6/uL Hgb (12.0-16.0) g/dl Hct (37-47) % MCV (80-98) fL MCH (27.0-33.0) pg MCHC (31.0-35.0) g/dl RDW (11.0-16.0) % Plt Count (160-400) X10*3/uL MPV (9.4-12.3) fL Immature Gran % (Auto) (0.0-0.4) % Neut % (Auto) (45-73) % Lymph % (Auto) (20-40) % [place] % (Auto) (2-11) % Eos % (Auto) (0-4) % Baso % (Auto) (0-2) % Lymph # (Auto) (1.2-4.9) X10*3/uL [place] # (Auto) (0.1-1.2) X10*3/uL Eos # (Auto) (0.0-0.4) X10*3/uL Baso # (Auto) (0.0-0.2) X10*3/uL Abs Immat Gran (auto) (0.00-0.03) X10*3/uL Absolute Neuts (auto) (2.0-8.3) X10*3/uL Absolute Nucleated RBC (0.0-0.012) X10*3/uL Nucleated RBC % (auto) (0.0-0.2) /100WBC Sodium (135-145) mmol/L Potassium (3.3-5.1) mmol/L Chloride (96-108) mmol/L Carbon Dioxide (22-29) mmol/L Anion Gap (12-20) BUN (9-16) mg/dL Creatinine (0.5-1.4) mg/dL Estim Creat Clear Calc Estimated GFR Random Glucose (60-115) mg/dL Calcium (8.4-10.2) mg/dL Total Bilirubin (0.0-1.0) mg/dL AST (5-31) U/L ALT (0-31) U/L Alkaline Phosphatase (39-117) U/L Troponin I High Sens (<3.5-17.0) ng/L Total Protein (6.5-8.0) g/dL Albumin (3.5-5.0) g/dL COVID-19 (ANEL) Negative (Negative) COVID-19 Clin Com See Note ECG Data ECG #1: Attestation: I personally reviewed and interpreted this ECG as follows: Interpretation: 1039: Sinus tachycardia with rate of 111, normal LA, prolonged QRS of 120 milliseconds, prolonged QTC of 533 milliseconds, right bundle-branch block, no ST segment elevation or depression, no old EKG for comparison. Discharge Plan Discharge Clinical Impression: Acute exacerbation of chronic obstructive pulmonary disease, Respiratory fa ilure, acute Patient Disposition: Admitted As Inpatient Prescriptions: No Action ipratropium-albuterol 0.5 mg-3 mg(2.5 mg base)/3 mL solution for nebulization 1 ml inhalation QID Qty: 360 RF: 6 carvedilol 12.5 mg tablet 12.5 mg PO BID Qty: 60 RF: 3 meclizine 25 mg tablet 25 mg PO TID PRN (Reason: dizziness) 30 Days Qty: 90 RF: 3 tiotropium bromide [Spiriva with HandiHaler] 18 mcg capsule, w/inhalation device 1 cap inhalation DAILY 30 Days Qty: 30 RF: 5 omeprazole 20 mg capsule,delayed release(DR/EC) 20 mg PO DAILY@0630 RF: 0 trazodone 50 mg tablet 50 - 100 mg PO BEDTIME PRN (Reason: Sleep) RF: 0 furosemide 40 mg tablet 1 tab PO QAM RF: 0 sertraline 100 mg tablet 2 tab PO DAILY RF: 0 metformin 1,000 mg tablet 1 tab PO BID RF: 0 montelukast 10 mg tablet 1 tab PO BEDTIME RF: 0 quetiapine 50 mg tablet 1 tab PO BID RF: 0 lisinopril 20 mg Tablet 20 mg PO DAILY Qty: 30 RF: 0 amlodipine 5 mg Tablet 5 mg PO DAILY Qty: 30 RF: 0 albuterol sulfate 90 mcg/actuation HFA aerosol inhaler 4 inh inhalation QID Qty: 18 RF: 0 folic acid 1 mg Tablet 1 mg PO DAILY Qty: 90 RF: 4 cefuroxime axetil 250 mg tablet 500 mg PO Q12H Qty: 10 RF: 0 simvastatin 40 mg tablet 40 mg PO BEDTIME RF: 0 tramadol 50 mg tablet 50 mg PO BID PRN (Reason: pain) 30 Days Qty: 60 RF: 0
[2020-07-27 11:31] LABS: MANUAL DIFF FLAG NO
[2020-07-27 11:34] LABS: Basophils Percent Auto 0.2 % (0-2); Eosinophils Percent Auto 0.5 % (0-4); Hematocrit 33.9 % (37-47); Hemoglobin 10.4 g/dl (12.0-16.0); Imm Gran Abs Auto 0.02 X10*3/uL (0.00-0.03); Imm Gran Pct Auto 0.3 % (0.0-0.4); Lymphocytes Absolute Auto 1.2 X10*3/uL (1.2-4.9); Lymphocytes Percent Auto 18.3 % (20-40); Mean Corpuscular HGB Conc 30.7 g/dl (31.0-35.0); Mean Corpuscular Hemoglobin 25.5 pg (27.0-33.0); Mean Corpuscular Volume 83.1 fL (80-98); Mean Platelet Volume 10.4 fL (9.4-12.3); Monocytes Absolute Auto 0.4 X10*3/uL (0.1-1.2); Monocytes Percent Auto 6.6 % (2-11); Neutrophils Absolute Auto 4.8 X10*3/uL (2.0-8.3); Neutrophils Percent Auto 74.1 % (45-73); Platelet Count 173 X10*3/uL (160-400); Red Blood Count 4.08 X10*6/uL (4.20-5.50); Red Cell Distribution Width 15.6 % (11.0-16.0); White Blood Count 6.5 X10*3/uL (4.8-10.8)
[2020-07-27] MEDS: lisinopriL 20 MG TABLET PO (11:41)
[2020-07-27] MEDS: amLODIPine Besylate 5 MG TABLET PO (11:41)
[2020-07-27] MEDS: carvediloL 12.5 MG TABLET PO (11:41)
[2020-07-27 11:52] LABS: COVID-19 Test Negative (Negative)
[2020-07-27 12:02] LABS: Alanine Aminotransferase 8 U/L (0-31); Albumin Level 4.1 g/dL (3.5-5.0); Alkaline Phosphatase 164 U/L (39-117); Anion Gap 15 (12-20); Aspartate Amino Transferase 15 U/L (5-31); Bilirubin Total 0.3 mg/dL (0.0-1.0); Blood Urea Nitrogen 9 mg/dL (9-16); Calcium 8.8 mg/dL (8.4-10.2); Carbon Dioxide 26 mmol/L (22-29); Chloride 106 mmol/L (96-108); Creatinine Clr Calc Pharmacy 92.7; Estimated Glomerular Filt Rate > 60; Glucose Random 120 mg/dL (60-115); Sodium 143 mmol/L (135-145); Total Protein 7.2 g/dL (6.5-8.0)
[2020-07-27 12:06] LABS: Troponin-I High Sensitivity 15.3 ng/L (<3.5-17.0)
--- NOTE | 2020-07-27 13:00 | PC.NURSE ---
pt exhibiting signs of respiratory distress, repositioning self in bed to ease breathing, nails and lips appearing dusky, pt unable to speak in full sentences, audible wheezing present. currently on 3L 02 nasal cannula sat 99% but patient states she is still feeling short of breath. MD at bedside to assess respiratory status. 02 flow rate increased to 4L/min. MD ordered nebulizer treatment. respiratory at bedside administering 5mg albuterol. current 02 sat at 96% on 7L and nebulizer treatment. respiratory at bedside.
--- NOTE | 2020-07-27 13:15 | PC.NURSE ---
pt placed on cpap by resp therapist (warren). cpap setting of 10 and 70% of 02. pt 02 sat is 100% at this time.
[2020-07-27] MEDS: Albuterol Sulfate (0.083%) 2.5 MG/3 ML VIAL.NEB 5 MG INHALE (13:16)
--- NOTE | 2020-07-27 13:27 | PC.NURSE ---
per resp therapist (warren) cpap settings remains at 10 but 02 delivery decreased to 50%. pt's 02 sat is 99-100%.pt is resting with hob up.
--- NOTE | 2020-07-27 15:15 | PC.NURSE ---
RT called for updraft and to remove pt from cpap per MD
[2020-07-27] MEDS: Albuterol Sulfate (0.083%) 2.5 MG/3 ML VIAL.NEB INHALE (15:30)
--- NOTE | 2020-07-27 15:53 | PC.NURSE ---
Attempted to trial PT off CPAP- unable to tolerating, pt displayed tracheal tugging, labored breathing. Pt now back on CPAP, 10 and 50%- tolerating well.
--- NOTE | 2020-07-27 16:33 | P.HPCC_ITS ---
History of Present Illness Date of Service: 07/27/20 Chief Complaint: Worsening shortness of breath 60-year-old diabetic hypertensive and hyperlipidemic with known congestive cardiomyopathy ejection fraction 30-35% with elevated filling pressures and COPD with multiple asthmatic exacerbations currently feeling more comfortable on CPAP after aggressive bronchodilator therapies but work of breathing increases dram atically when removed from CPAP Currently back on the CPAP with improvement in work of breathing started on Solu-Medrol in addition to bronchodilators and given 1 dose of Lasix given her cardiovascular background Bedside echo indeed documents diffuse hypokinesis of the left ventricle averaging 35% ejection fraction but does not have the dilatation of the inferior vena cava Review of Systems Review of Systems: Yes all other systems are reviewed and are negative [facility] Past Medical History Medical History Anxiety Cardiomyopathy Chronic respiratory failure COPD (chronic obstructive pulmonary disease) Depression Diabetes HFrEF (heart failure with reduced ejection fraction) HLD (hyperlipidemia) HTN (hypertension) Low back pain Mitral regurgitation Normocytic anemia KELLIE (obstructive sleep apnea) Postmenopausal Severe chronic obstructive pulmonary disease Supplemental oxygen dependent Family History Family History Father No problems noted. Mother Liver cancer Hypertension Surgical History Surgical History Bilateral ankle fractures History of total abdominal hysterectomy Social History Social History Household Members: None Housing: Apartment Alcohol intake: never Smoking Status: Current every day smoker Tobacco Type: Cigarette Packs Per Day: 1 Smoked in Last 30 Days: Yes Second Hand Smoke Exposure: No Use of substances other than those prescribed or required for medical reasons: No Currently Displaying Signs/Symptoms of Drug Intoxication Withdrawal: No Advance Directives: Yes Advance Directives on File: Yes Advance Directives Date on File: 04/30/20 Do you have thoughts of harming others: None Do you have a plan to hurt others: No Plan service: No Current occupational status: unemployed Meds Allergies Allergy/AdvReac Type Severity Reaction Status Date / Time nicotine [Nicotine] Allergy Unknown ITCHING Verified 05/21/20 10:40 WITH THE PATCHES topiramate Allergy Unknown inadequealte Verified 05/21/20 10:40 response Home Medications Medication Instructions Recorded Confirmed Last Taken Type furosemide 1 tab PO QAM 03/08/20 07/26/20 05/12/20 History metformin 1 tab PO BID 03/08/20 07/26/20 Unknown History montelukast 1 tab PO BEDTIME 03/08/20 07/26/20 05/12/20 History omeprazole 20 mg PO DAILY@0630 03/08/20 07/26/20 05/12/20 History quetiapine 1 tab PO BID 03/08/20 07/26/20 05/12/20 History sertraline 2 tab PO DAILY 03/08/20 07/26/20 05/12/20 History trazodone 50 - 100 mg PO BEDTIME PRN 03/08/20 07/26/20 05/12/20 History simvastatin 40 mg tablet 40 mg PO BEDTIME 05/21/20 07/26/20 Unknown History Physical Exam Vital Signs: Vital Signs: Last Vital Signs Temp 98.4 F 07/27/20 10:02 Pulse 89 07/27/20 16:15 Resp 16 07/27/20 16:15 BP 144/117 H 07/27/20 16:15 Pulse Ox 100 07/27/20 16:15 Body Mass Index 22.3 Awake alert oriented and nonfocal neurologically Neck veins not distended and carotid upstrokes modestly reduced indicating diminished stroke work reserve but no murmurs or gallops Accessory muscle and diaphragmatic effort but diminished breath sounds but end expiratory wheezing Abdomen benign No peripheral edema and no livedo Results Labs CBC and Chem 7: 07/28/20 05:29 07/28/20 05:29 Labs: Laboratory Results - last 24 hr 07/27/20 07/27/20 07/27/20 11:20 11:20 11:20 MCV 83.1 MCH 25.5 L MCHC 30.7 L RDW 15.6 Plt Count 173 MPV 10.4 Immature Gran % (Auto) 0.3 Neut % (Auto) 74.1 H Lymph % (Auto) 18.3 L [place] % (Auto) 6.6 Eos % (Auto) 0.5 Baso % (Auto) 0.2 Lymph # (Auto) 1.2 [place] # (Auto) 0.4 Eos # (Auto) 0.0 Baso # (Auto) 0.0 Abs Immat Gran (auto) 0.02 Absolute Neuts (auto) 4.8 Absolute Nucleated RBC 0.000 Nucleated RBC % (auto) 0.0 Anion Gap 15 Estim Creat Clear Calc 92.7 Estimated GFR > 60 Random Glucose 120 H Calcium 8.8 Total Bilirubin 0.3 AST 15 ALT 8 Alkaline Phosphatase 164 H Troponin I High Sens 15.3 D Total Protein 7.2 Albumin 4.1 COVID-19 (ANEL) COVID-19 Clin Com 07/27/20 11:20 MCV MCH MCHC RDW Plt Count MPV Immature Gran % (Auto) Neut % (Auto) Lymph % (Auto) [place] % (Auto) Eos % (Auto) Baso % (Auto) Lymph # (Auto) [place] # (Auto) Eos # (Auto) Baso # (Auto) Abs Immat Gran (auto) Absolute Neuts (auto) Absolute Nucleated RBC Nucleated RBC % (auto) Anion Gap Estim Creat Clear Calc Estimated GFR Random Glucose Calcium Total Bilirubin AST ALT Alkaline Phosphatase Troponin I High Sens Total Protein Albumin COVID-19 (ANEL) Negative COVID-19 Clin Com See Note Imaging Radiologist's Impressions: Impressions Chest X-Ray 07/27/20 10:58 IMPRESSION: Resolved right lower lobe pneumonia. Cardiomegaly with mild pulmonary vascular congestion. Assessment and Plan (1) Anemia: Status: Acute (2) Acute exacerbation of chronic obstructive pulmonary disease: Status: Acute (3) Acute and chronic respiratory failure with hypoxia: Status: Acute (4) Normocytic anemia: Status: Acute (5) History of total abdominal hysterectomy: Problem details: with Unilateral salpingo-oophorectomy 01/17/1997 Status: Acute (6) Supplemental oxygen dependent: Status: Acute (7) Severe chronic obstructive pulmonary disease: Status: Acute (8) KELLIE (obstructive sleep apnea): Status: Acute (9) Mitral regurgitation: Status: Acute (10) HTN (hypertension): Qualifiers: Hypertension type: essential hypertension Qualified Code(s): I10 - Essential (primary) hypertension Status: Acute (11) HFrEF (heart failure with reduced ejection fraction): Status: Acute (12) Depression: Status: Acute (13) Cardiomyopathy: Status: Acute (14) Anxiety: Status: Acute (15) Diabetes: Qualifiers: Diabetes mellitus type: type 2 Diabetes mellitus jail insulin use: without 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 use Diabetes mellitus complication status: without complication Qualified Code(s): E11.9 - Type 2 diabetes mellitus without complications Status: Acute (16) HLD (hyperlipidemia): Qualifiers: Hyperlipidemia type: pure hypercholesterolemia Qualified Code(s): E78.00 - Pure hypercholesterolemia, unspecified Status: Acute (17) Status asthmaticus: Status: Acute She will be maintained on CPAP overnight continuously and just allowed to auto diurese this should stabilize both issues in terms of her bronchial asthma as well as a cardiac asthma feature but she is not grossly fluid overloaded at this point
[2020-07-27 16:48] LABS: Troponin-I High Sensitivity 27.7 ng/L (<3.5-17.0)
[2020-07-27 17:28] LABS: Influenza A PCR NEGATIVE (Negative); Influenza B PCR NEGATIVE (Negative); Resp Syncy Virus RNA Qual PCR NEGATIVE (Negative); SARS COV2 PCR INHOUSE NEGATIVE (Negative)
[2020-07-27] MEDS: Heparin Sodium,Porcine 5,000 UNIT/ML VIAL 5000 UNIT SUBCUT (18:32)
[2020-07-27] MEDS: Doxycycline Hyclate 100 MG in 0.9 % Sodium Chloride 250 ML 166.67 MG IV (18:32)
[2020-07-27 18:38] LABS: Glucose, Whole Blood 166 mg/dL (60-115)
--- NOTE | 2020-07-27 18:43 | PC.NURSE ---
Pt arrived to unit 1800 VSS except BP HTN 180/115, MD aware, no new meds at this time. Doxycycline started, heparin given. [place] placed 125ml out, UA sent. Pt A&Ox3 denies pain, C/O SOB, tachypneic using accessory muscles. Placed on CPAP 10, FiO2 40% per RT. Pt is to be NPO till tomorrow. POC 166. Skin intact. Lungs dim mild exp wheezing on right.
[2020-07-27 18:57] LABS: Glucose Urine UA NEG (NEG); Leukocyte Esterase Urine NEG (NEG); Nitrite Urine NEG (NEG); Urine Blood TRACE (NEG); Urine Ketones NEG (NEG); Urine Protein TRACE MG/DL (NEG-TRACE)
[2020-07-27 19:04] LABS: Appearance Urine CLEAR; Color Urine YELLOW
[2020-07-27 19:17] LABS: Mucus Urine TRACE /LPF; Renal Epithelial Cells Urine 1+ /LPF; Squamous Epithelial Cell Urine TRACE /LPF; WBC Urine 0-2 /HPF (0-4)
[2020-07-27] MEDS: Albuterol/Iprat 2.5/0.5MG 3 ML AMPUL.NEB INHALE (19:39)
[2020-07-27 20:07] LABS: Venous Blood Gas Refer to POC result
[2020-07-27 20:07] LABS: VBG Base Excess 1.2 mmol/L; VBG HCO3 26 mmol/L (22-26); VBG pCO2 46 mmHg; VBG pH 7.37 (7.32-7.43); VBG pO2 44 mmHg
[2020-07-27] MEDS: methylPREDNISolone Sod Succ 125 MG/2 ML VIAL 60 MG IVPUSH (20:33)
[2020-07-27] MEDS: Famotidine/PF 20 MG/2 ML VIAL IVPUSH (20:34)
[2020-07-28] VITALS (25 sets, daily range): BP systolic 131–171; BP diastolic 71–108; PULSE 62–88; RESP 12–22; TEMP 36.3–36.6; O2SAT 91–100; BMI 31.6
[2020-07-28] MEDS: Albuterol/Iprat 2.5/0.5MG 3 ML AMPUL.NEB INHALE ×6 (00:41→20:24)
[2020-07-28] MEDS: Heparin Sodium,Porcine 5,000 UNIT/ML VIAL 5000 UNIT SUBCUT ×4 (01:51→23:37)
[2020-07-28] MEDS: Furosemide 20 MG/2 ML VIAL IVPUSH (02:20)
--- NOTE | 2020-07-28 03:59 | PC.NURSE ---
Addendum entered by Gordo Garcia RN 07/28/20 06:29: transferred to [facility] via bed...rt placed on 100% nrb for transport Addendum entered by Gordo Garcia RN 07/28/20 05:42: bp remains elevated despite prior iv lasix...pa present...bp meds re-ordered and am coreg given early per pa Original Note: CARE ASSUMED 23:15...AWAKE..ALERT...MORGAN/RE-POSITIONS SELF...CPAP 10CM & FIO2 60% AT HS...RR 16-20...Ve 7-9 l/m...SaO2 96-98%..NO DISTRESS ON CPAP...BOO DRAINING 15-20 CC/HR...BP REMAINS ELEVATED...LASIX 20 MG IV X1 PER ICU PA...3AM PATIENT TAKEN OFF CPAP BRIEFLY...SAO2 85-86% ON 6 L/M VIA CANNULA...DRANK H20 W/O DIFFICULTY...MATHEMATICS TECHNICIAN PRESENT...PATIENT RELATES USING O2 3 L/M O2 AT HOME AND SAO2 NEVER ABOVE 90% ....RETURNED TO CPAP AND FIO2 WEANED TO 50% FIO2 WITH SAO2 99%...WEANED TO FIO2 40%..TO TREND
[2020-07-28] MEDS: carvediloL 6.25 MG TABLET 12.5 MG PO ×2 (05:31→20:52)
[2020-07-28 05:42] LABS: MANUAL DIFF FLAG NO
[2020-07-28 05:48] LABS: Venous Blood Gas Refer to POC result
[2020-07-28 05:49] LABS: VBG Base Excess 2.1 mmol/L; VBG HCO3 26 mmol/L (22-26); VBG pCO2 41 mmHg; VBG pH 7.41 (7.32-7.43); VBG pO2 47 mmHg
[2020-07-28 05:53] LABS: Hematocrit 33.1 % (37-47); Imm Gran Abs Auto 0.04 X10*3/uL (0.00-0.03); Imm Gran Pct Auto 0.6 % (0.0-0.4); Lymphocytes Absolute Auto 0.8 X10*3/uL (1.2-4.9); Lymphocytes Percent Auto 11.3 % (20-40); Mean Corpuscular HGB Conc 30.2 g/dl (31.0-35.0); Mean Corpuscular Volume 82.8 fL (80-98); Mean Platelet Volume 10.8 fL (9.4-12.3); Monocytes Absolute Auto 0.2 X10*3/uL (0.1-1.2); Monocytes Percent Auto 2.4 % (2-11); Neutrophils Absolute Auto 5.7 X10*3/uL (2.0-8.3); Neutrophils Percent Auto 85.7 % (45-73); Platelet Count 183 X10*3/uL (160-400); Red Cell Distribution Width 15.7 % (11.0-16.0); White Blood Count 6.6 X10*3/uL (4.8-10.8)
[2020-07-28 06:17] LABS: Alanine Aminotransferase 9 U/L (0-31); Albumin Level 4.2 g/dL (3.5-5.0); Alkaline Phosphatase 160 U/L (39-117); Anion Gap 18 (12-20); Aspartate Amino Transferase 16 U/L (5-31); Bilirubin Direct 0.2 mg/dL (0.0-0.5); Bilirubin Total 0.3 mg/dL (0.0-1.0); Blood Urea Nitrogen 21 mg/dL (9-16); Calcium 9.2 mg/dL (8.4-10.2); Carbon Dioxide 24 mmol/L (22-29); Chloride 104 mmol/L (96-108); Creatinine Clr Calc Pharmacy 73.5; Estimated Glomerular Filt Rate > 60; Glucose Random 157 mg/dL (60-115); Magnesium 2.1 mg/dL (1.6-2.6); Phosphorus 3.5 mg/dL (2.7-4.5); Potassium 3.9 mmol/L (3.3-5.1); Sodium 142 mmol/L (135-145); Total Protein 7.3 g/dL (6.5-8.0)
[2020-07-28 08:45] LABS: Glucose, Whole Blood 114 mg/dL (60-115)
[2020-07-28] MEDS: Doxycycline Hyclate 100 MG in 0.9 % Sodium Chloride 250 ML 166.67 MG IV ×2 (09:04→17:51)
[2020-07-28] MEDS: methylPREDNISolone Sod Succ 125 MG/2 ML VIAL 60 MG IVPUSH ×3 (09:07→20:52)
[2020-07-28] MEDS: Famotidine/PF 20 MG/2 ML VIAL IVPUSH ×2 (09:08→20:52)
[2020-07-28] MEDS: amLODIPine Besylate 5 MG TABLET PO (09:09)
[2020-07-28] MEDS: lisinopriL 20 MG TABLET PO (09:10)
--- NOTE | 2020-07-28 10:06 | PM.CCPN ---
Subjective Subjective Date of Service: 07/28/20 Interval History: Much improved today and I just removed her CPAP and work of breathing looks fairly normal and feels normal to her as well but oxygen saturation requires 4 L nasal cannula to keep her at 90% saturation and no longer clinically in status asthmaticus Physical Exam Vital Signs: Vital Signs: Last Vital Signs Temp 97.9 F 07/28/20 08:00 Pulse 85 07/28/20 09:09 Resp 18 07/28/20 09:00 BP 150/87 H 07/28/20 09:10 Pulse Ox 93 07/28/20 09:00 Body Mass Index 31.6 Const: Other: Awake alert oriented nonfocal neurologically No respiratory distress no longer tachypneic and no diaphragmatic effort Cardiac exam with normal neck veins normal carotid upstrokes and no gallops Benign abdomen Skin intact Objective Data Labs CBC & Chem 7: 07/28/20 05:29 07/28/20 05:29 Labs: Laboratory Results - last 24 hr 07/27/20 07/27/20 07/27/20 11:20 11:20 11:20 WBC 6.5 RBC 4.08 L Hgb 10.4 L Hct 33.9 L MCV 83.1 MCH 25.5 L MCHC 30.7 L RDW 15.6 Plt Count 173 MPV 10.4 Immature Gran % (Auto) 0.3 Neut % (Auto) 74.1 H Lymph % (Auto) 18.3 L [place] % (Auto) 6.6 Eos % (Auto) 0.5 Baso % (Auto) 0.2 Lymph # (Auto) 1.2 [place] # (Auto) 0.4 Eos # (Auto) 0.0 Baso # (Auto) 0.0 Abs Immat Gran (auto) 0.02 Absolute Neuts (auto) 4.8 Absolute Nucleated RBC 0.000 Nucleated RBC % (auto) 0.0 VBG pH VBG pCO2 VBG pO2 VBG HCO3 VBG O2 Saturation VBG Base Excess Sodium 143 Potassium 4.0 Chloride 106 Carbon Dioxide 26 Anion Gap 15 BUN 9 Creatinine 0.73 Estim Creat Clear Calc 92.7 Estimated GFR > 60 POC Glucose Random Glucose 120 H Calcium 8.8 Phosphorus Magnesium Total Bilirubin 0.3 Direct Bilirubin AST 15 ALT 8 Alkaline Phosphatase 164 H Troponin I High Sens 15.3 D Total Protein 7.2 Albumin 4.1 Urine Color Urine Appearance Urine pH Ur Specific [place] Urine Protein Urine Glucose (UA) Urine Ketones Urine Blood Urine Nitrite Ur Leukocyte Esterase Urine RBC Urine WBC Ur Squamous Epith Cells Ur Renal Epithelial Cell Urine Bacteria Urine Mucus Coronavirus (PCR) COVID-19 (ANEL) COVID-19 Clin Com Influenza Type A (PCR) Influenza Type B (PCR) RSV RNA Qual (PCR) 07/27/20 07/27/20 07/27/20 11:20 16:04 16:28 WBC RBC Hgb Hct MCV MCH MCHC RDW Plt Count MPV Immature Gran % (Auto) Neut % (Auto) Lymph % (Auto) [place] % (Auto) Eos % (Auto) Baso % (Auto) Lymph # (Auto) [place] # (Auto) Eos # (Auto) Baso # (Auto) Abs Immat Gran (auto) Absolute Neuts (auto) Absolute Nucleated RBC Nucleated RBC % (auto) VBG pH VBG pCO2 VBG pO2 VBG HCO3 VBG O2 Saturation VBG Base Excess Sodium Potassium Chloride Carbon Dioxide Anion Gap BUN Creatinine Estim Creat Clear Calc Estimated GFR POC Glucose Random Glucose Calcium Phosphorus Magnesium Total Bilirubin Direct Bilirubin AST ALT Alkaline Phosphatase Troponin I High Sens 27.7 H D Total Protein Albumin Urine Color Urine Appearance Urine pH Ur Specific [place] Urine Protein Urine Glucose (UA) Urine Ketones Urine Blood Urine Nitrite Ur Leukocyte Esterase Urine RBC Urine WBC Ur Squamous Epith Cells Ur Renal Epithelial Cell Urine Bacteria Urine Mucus Coronavirus (PCR) NEGATIVE COVID-19 (ANEL) Negative COVID-19 Clin Com See Note Influenza Type A (PCR) NEGATIVE Influenza Type B (PCR) NEGATIVE RSV RNA Qual (PCR) NEGATIVE 07/27/20 07/27/20 07/27/20 18:32 18:34 20:01 WBC RBC Hgb Hct MCV MCH MCHC RDW Plt Count MPV Immature Gran % (Auto) Neut % (Auto) Lymph % (Auto) [place] % (Auto) Eos % (Auto) Baso % (Auto) Lymph # (Auto) [place] # (Auto) Eos # (Auto) Baso # (Auto) Abs Immat Gran (auto) Absolute Neuts (auto) Absolute Nucleated RBC Nucleated RBC % (auto) VBG pH 7.37 VBG pCO2 46 VBG pO2 44 VBG HCO3 26 VBG O2 Saturation 73.0 VBG Base Excess 1.2 Sodium Potassium Chloride Carbon Dioxide Anion Gap BUN Creatinine Estim Creat Clear Calc Estimated GFR POC Glucose 166 H Random Glucose Calcium Phosphorus Magnesium Total Bilirubin Direct Bilirubin AST ALT Alkaline Phosphatase Troponin I High Sens Total Protein Albumin Urine Color YELLOW Urine Appearance CLEAR Urine pH 7.0 Ur Specific [place] 1.010 Urine Protein TRACE Urine Glucose (UA) NEG Urine Ketones NEG Urine Blood TRACE Urine Nitrite NEG Ur Leukocyte Esterase NEG Urine RBC 1-4 Urine WBC 0-2 Ur Squamous Epith Cells TRACE Ur Renal Epithelial Cell 1+ Urine Bacteria NONE Urine Mucus TRACE Coronavirus (PCR) COVID-19 (ANEL) COVID-19 Clin Com Influenza Type A (PCR) Influenza Type B (PCR) RSV RNA Qual (PCR) 07/28/20 07/28/20 07/28/20 05:29 05:29 05:29 WBC 6.6 RBC 4.00 L Hgb 10.0 L Hct 33.1 L MCV 82.8 MCH 25.0 L MCHC 30.2 L RDW 15.7 Plt Count 183 MPV 10.8 Immature Gran % (Auto) 0.6 H Neut % (Auto) 85.7 H Lymph % (Auto) 11.3 L [place] % (Auto) 2.4 Eos % (Auto) 0.0 Baso % (Auto) 0.0 Lymph # (Auto) 0.8 L [place] # (Auto) 0.2 Eos # (Auto) 0.0 Baso # (Auto) 0.0 Abs Immat Gran (auto) 0.04 H Absolute Neuts (auto) 5.7 Absolute Nucleated RBC 0.000 Nucleated RBC % (auto) 0.0 VBG pH VBG pCO2 VBG pO2 VBG HCO3 VBG O2 Saturation VBG Base Excess Sodium 142 Potassium 3.9 Chloride 104 Carbon Dioxide 24 Anion Gap 18 BUN 21 H D Creatinine 0.92 Estim Creat Clear Calc 73.5 Estimated GFR > 60 POC Glucose Random Glucose 157 H Calcium 9.2 Phosphorus 3.5 Magnesium 2.1 Total Bilirubin 0.3 Direct Bilirubin 0.2 AST 16 ALT 9 Alkaline Phosphatase 160 H Troponin I High Sens 13.0 D Total Protein 7.3 Albumin 4.2 Urine Color Urine Appearance Urine pH Ur Specific [place] Urine Protein Urine Glucose (UA) Urine Ketones Urine Blood Urine Nitrite Ur Leukocyte Esterase Urine RBC Urine WBC Ur Squamous Epith Cells Ur Renal Epithelial Cell Urine Bacteria Urine Mucus Coronavirus (PCR) COVID-19 (ANEL) COVID-19 Clin Com Influenza Type A (PCR) Influenza Type B (PCR) RSV RNA Qual (PCR) 07/28/20 07/28/20 05:41 08:41 WBC RBC Hgb Hct MCV MCH MCHC RDW Plt Count MPV Immature Gran % (Auto) Neut % (Auto) Lymph % (Auto) [place] % (Auto) Eos % (Auto) Baso % (Auto) Lymph # (Auto) [place] # (Auto) Eos # (Auto) Baso # (Auto) Abs Immat Gran (auto) Absolute Neuts (auto) Absolute Nucleated RBC Nucleated RBC % (auto) VBG pH 7.41 VBG pCO2 41 VBG pO2 47 VBG HCO3 26 VBG O2 Saturation 78.0 VBG Base Excess 2.1 Sodium Potassium Chloride Carbon Dioxide Anion Gap BUN Creatinine Estim Creat Clear Calc Estimated GFR POC Glucose 114 Random Glucose Calcium Phosphorus Magnesium Total Bilirubin Direct Bilirubin AST ALT Alkaline Phosphatase Troponin I High Sens Total Protein Albumin Urine Color Urine Appearance Urine pH Ur Specific [place] Urine Protein Urine Glucose (UA) Urine Ketones Urine Blood Urine Nitrite Ur Leukocyte Esterase Urine RBC Urine WBC Ur Squamous Epith Cells Ur Renal Epithelial Cell Urine Bacteria Urine Mucus Coronavirus (PCR) COVID-19 (ANEL) COVID-19 Clin Com Influenza Type A (PCR) Influenza Type B (PCR) RSV RNA Qual (PCR) Progress Note: A&P Assessment and plan (1) Status asthmaticus: Status: Acute (2) Anemia: Status: Acute (3) Acute exacerbation of chronic obstructive pulmonary disease: Status: Acute (4) Respiratory failure, acute: Status: Acute (5) Acute and chronic respiratory failure with hypoxia: Status: Acute (6) Acute exacerbation of chronic obstructive pulmonary disease: Status: Acute (7) Normocytic anemia: Status: Acute (8) History of total abdominal hysterectomy: Problem details: with Unilateral salpingo-oophorectomy 01/17/1997 Status: Acute (9) Supplemental oxygen dependent: Status: Acute (10) KELLIE (obstructive sleep apnea): Status: Acute (11) Mitral regurgitation: Status: Acute (12) HTN (hypertension): Status: Acute (13) HFrEF (heart failure with reduced ejection fraction): Status: Acute (14) Depression: Status: Acute (15) Cardiomyopathy: Status: Acute (16) Anxiety: Status: Acute (17) HLD (hyperlipidemia): Status: Acute Assessment and Plan: At this point we can utilize the CPAP at night or p.r.n. if she needs arrest but we are going to allow her to eat continue her insulin coverage if necessary and I would utilize Lasix diuresis on a p.r.n. basis Time Spent With Patient Time: Total time spent is greater than 50% in coordination of care (as documented) at patient's floor/unit and/or counseling patient: Total time spent with greater than 50% in coordination of care (as documented) at patient's floor/unit and/or counseling patient:: 30
[2020-07-28 12:28] LABS: Glucose, Whole Blood 150 mg/dL (60-115)
[2020-07-28 19:58] LABS: Glucose, Whole Blood 213 mg/dL (60-115)
[2020-07-29] VITALS (12 sets, daily range): BP systolic 121–180; BP diastolic 84–100; PULSE 70–89; RESP 18–25; TEMP 36.1–37.2; O2SAT 90–99; BMI 31.6
[2020-07-29 07:32] LABS: Glucose, Whole Blood 129 mg/dL (60-115)
[2020-07-29] MEDS: Albuterol/Iprat 2.5/0.5MG 3 ML AMPUL.NEB INHALE ×4 (07:34→20:37)
[2020-07-29] MEDS: Doxycycline Hyclate 100 MG in 0.9 % Sodium Chloride 250 ML 166.67 MG IV (09:21)
[2020-07-29] MEDS: lisinopriL 20 MG TABLET PO (09:22)
[2020-07-29] MEDS: methylPREDNISolone Sod Succ 125 MG/2 ML VIAL 60 MG IVPUSH (09:22)
[2020-07-29] MEDS: carvediloL 6.25 MG TABLET 12.5 MG PO ×2 (09:22→20:24)
[2020-07-29] MEDS: amLODIPine Besylate 5 MG TABLET PO (09:22)
[2020-07-29] MEDS: Famotidine/PF 20 MG/2 ML VIAL IVPUSH (09:23)
[2020-07-29] MEDS: Heparin Sodium,Porcine 5,000 UNIT/ML VIAL 5000 UNIT SUBCUT ×2 (09:23→16:06)
[2020-07-29 11:30] LABS: Glucose, Whole Blood 156 mg/dL (60-115)
--- NOTE | 2020-07-29 11:57 | MHC.CM.PN ---
CM met with Patient at Bedside with the assist of [facility] [employer] [facility]. Patient lives alone in an apartment and uses a walker to assist with mobility. 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 HCP is on file. PCP is Dr. Analisa Rosario. Goal is home with resumption of services; CM has initiated and will follow for dc planning.
--- NOTE | 2020-07-29 13:53 | HO.PM.IMPN ---
Subjective Subjective Date of Service: 07/29/20 Interval History: Patient feels significantly better since admission, did not use CPAP is chronically on 3 L of oxygen, continue to smoke 3-4 cigarettes a day denies any allergy symptoms of runny nose itchy watery eyes, denies any cough or sputum production, admits that she might have a sinus infection with stuffy nose and facial pressure. General no headache, no dizziness no fever chills. CVS no chest pain, no palpitation. Respiratory no cough, no sputum production, no respiratory distress. Gastrointestinal no nausea, no vomiting, no abdominal pain Physical Exam Vital Signs: Vital Signs: Last Vital Signs Temp 97.4 F 07/29/20 11:36 Pulse 72 07/29/20 11:36 Resp 23 H 07/29/20 11:36 BP 171/90 H 07/29/20 11:36 Pulse Ox 96 07/29/20 11:36 Body Mass Index 31.6 General sitting on bed, no acute distress. Neck is supple no JVD. CVS regular rate rhythm, Respiratory lungs clear to auscultation, no respiratory distress, no wheeze, no rhonchi. Gastrointestinal abdomen soft, nontender, bowel sounds audible, no guarding , no rigidity. Extremities no clubbing cyanosis or edema. Neuro nonfocal , speech clear. Skin no rash Objective Data Current Medications Generic Name Dose Route Start Last Admin Trade Name Freq PRN Reason Stop Dose Admin Albuterol/Ipratropium 3 ml 07/29/20 08:00 07/29/20 11:06 Albuterol/Iprat 2.5/0.5mg 3 Ml Ampul.Neb INHALE 3 ml RQ4H WHILE AWAKE WALDEMAR Administration Amlodipine Besylate 5 mg 07/28/20 09:00 07/29/20 09:22 Amlodipine Besylate 5 Mg Tablet PO 5 mg DAILY WALDEMAR Administration Protocol Carvedilol 12.5 mg 07/28/20 09:00 07/29/20 09:22 Carvedilol 6.25 Mg Tablet PO 12.5 mg BID WALDEMAR Administration Protocol Famotidine 20 mg 07/27/20 21:00 07/29/20 09:23 Famotidine/Pf 20 Mg/2 Ml Vial IVPUSH 20 mg BID WALDEMAR Administration Heparin Sodium (Porcine) 5,000 unit 07/27/20 17:00 07/29/20 09:23 Heparin Sodium,Porcine 5,000 Unit/Ml Vial SUBCUT 5,000 unit Q8H WALDEMAR Administration Doxycycline Hyclate 100 mg/ 250 mls @ 166.67 mls/hr 07/27/20 17:00 07/29/20 11:17 Sodium Chloride IV Infused BID@0800,1700 WALDEMAR Infusion Lisinopril 20 mg 07/28/20 09:00 07/29/20 09:22 Lisinopril 20 Mg Tablet PO 20 mg DAILY WALDEMAR Administration Protocol Methylprednisolone Sodium Succinate 60 mg 07/27/20 21:00 07/29/20 09:22 Methylprednisolone Sod Succ 125 Mg/2 Ml Vial IVPUSH 60 mg TID WALDEMAR Administration Labs CBC & Chem 7: 07/28/20 05:29 07/28/20 05:29 Assessment and Plan (1) Status asthmaticus: Status: Acute (2) Acute exacerbation of chronic obstructive pulmonary disease: Status: Acute (3) Supplemental oxygen dependent: Status: Acute (4) HTN (hypertension): Status: Acute (5) Chronic respiratory failure: Status: Acute (6) Diabetes: Status: Acute Assessment and Plan: 60-year-old diabetic, hypertensive and hyperlipidemic with known congestive cardiomyopathy ejection fraction 30-35% with elevated filling pressures and COPD with multiple asthmatic exacerbations presented with few days history of shortness of breath and intermittent chest discomfort in ER patient was treated aggressively with bronchodilator treatment and CPAP and subsequently admitted to intensive care unit for continued use of CPAP Status asthmaticus Resolved, Patient feels significantly better denies chest discomfort shortness of breath has improved Aggravating factors likely continued smoking and uri/ sinus infection Will wean IV Solu Medrol from 60 mg t.i.d. to 40 mg t.i.d., will change IV doxycycline to by mouth and change updraft to q.i.d. and follow clinical course, patient remains stable then will be discharged home in next 24 hours she has been strongly recommended to abstain from smoking, chest x-ray showed resolved right lower lobe pneumonia and cardiomegaly with mild pulmonary vascular congestion although patient does not appear to be in congestive heart failure. Continue supportive care with oxygen cough medication. Chronic respiratory failure with hypoxia continue home oxygen 3 L by nasal cannula Tobacco use disorder strongly advised to abstain from smoking patient currently smoking 3-4 cigarettes per day Diabetes mellitus blood sugars stable continue diabetic diet Hypertension blood pressure is stable continue home medicine Coreg lisinopril and amlodipine GI prophylaxis added Prilosec while on prednisone DVT prophylaxis with heparin 5000 q.8 hours Disposition home if remains stable in next 24 hours
[2020-07-29] MEDS: methylPREDNISolone Sod Succ 125 MG/2 ML VIAL 40 MG IVPUSH ×2 (16:06→20:24)
[2020-07-29 20:14] LABS: Glucose, Whole Blood 192 mg/dL (60-115)
[2020-07-30] MEDS: Heparin Sodium,Porcine 5,000 UNIT/ML VIAL 5000 UNIT SUBCUT ×2 (01:12→07:53)
[2020-07-30 03:19] VITALS: BP 169/96; PULSE 71; RESP 20; TEMP 36.5; O2SAT 98
[2020-07-30] MEDS: Omeprazole 20 MG CAPSULE.DR PO (06:24)
[2020-07-30] MEDS: lisinopriL 20 MG TABLET PO (07:52)
[2020-07-30] MEDS: amLODIPine Besylate 5 MG TABLET PO (07:53)
[2020-07-30] MEDS: carvediloL 6.25 MG TABLET 12.5 MG PO (07:53)
[2020-07-30] MEDS: methylPREDNISolone Sod Succ 125 MG/2 ML VIAL 40 MG IVPUSH (07:54)
[2020-07-30 08:00] VITALS: BP 179/89; PULSE 77; TEMP 36.6; O2SAT 98
[2020-07-30 08:08] LABS: Glucose, Whole Blood 104 mg/dL (60-115)
[2020-07-30] MEDS: Albuterol/Iprat 2.5/0.5MG 3 ML AMPUL.NEB INHALE ×2 (08:18→12:11)
[2020-07-30 08:19] VITALS: PULSE 80; O2SAT 98
[2020-07-30 11:15] VITALS: PULSE 72; RESP 20; TEMP 36.2; O2SAT 92
[2020-07-30 11:18] LABS: Glucose, Whole Blood 145 mg/dL (60-115)
[2020-07-30 12:12] VITALS: PULSE 75
--- NOTE | 2020-07-30 12:32 | PM.DS ---
DS: Providers Provider Date of Service: 07/30/20 Date of admission: 07/27/20 16:34 Primary care physician: Analisa Chavez MD DS: Diagnosis Discharge Diagnosis (1) Status asthmaticus: Status: Acute (2) Acute exacerbation of chronic obstructive pulmonary disease: Status: Acute (3) Supplemental oxygen dependent: Status: Acute (4) HTN (hypertension): Status: Acute (5) Chronic respiratory failure: Status: Acute (6) Diabetes: Status: Acute DS: Medications Discharge Medications Home Medications: Home Medications Medication Instructions Recorded Confirmed furosemide 1 tab PO QAM 03/08/20 07/26/20 metformin 1 tab PO BID 03/08/20 07/26/20 montelukast 1 tab PO BEDTIME 03/08/20 07/26/20 omeprazole 20 mg PO DAILY@0630 03/08/20 07/26/20 quetiapine 1 tab PO BID 03/08/20 07/26/20 sertraline 2 tab PO DAILY 03/08/20 07/26/20 trazodone 50 - 100 mg PO BEDTIME PRN 03/08/20 07/26/20 simvastatin 40 mg tablet 40 mg PO BEDTIME 05/21/20 07/26/20 Previous Rx's Medication Instructions Recorded amlodipine 5 mg PO DAILY #30 tab 03/11/20 lisinopril 20 mg PO DAILY #30 tab 03/11/20 ipratropium 0.5 mg-albuterol 3 mg 1 ml INHALATION QID #360 ml 03/14/20 (2.5 mg base)/3 mL nebulization soln carvedilol 12.5 mg tablet 12.5 mg PO BID #60 tab 04/17/20 albuterol sulfate 4 inh INHALATION QID #18 g 05/02/20 meclizine 25 mg tablet 25 mg PO TID PRN 30 Days #90 tab 05/10/20 tiotropium bromide 18 mcg capsule 1 cap INHALATION DAILY 30 Days #30 05/20/20 with inhalation device inh tramadol 50 mg tablet 50 mg PO BID PRN 30 Days #60 tab 05/21/20 folic acid 1 mg PO DAILY #90 tab 07/26/20 doxycycline hyclate 100 mg PO Q12H #10 tab 07/30/20 prednisone 20 mg PO DAILY #5 tab 07/30/20 DS: Summary Hospital Course Hospital Course: History of presenting illness Chief Complaint: Worsening shortness of breath 60-year-old diabetic hypertensive and hyperlipidemic with known congestive cardiomyopathy ejection fraction 30-35% with elevated filling pressures and COPD with multiple asthmatic exacerbations currently feeling more comfortable on CPAP after aggressive bronchodilator therapies but work of breathing increases dramatically when removed from CPAP Currently back on the CPAP with improvement in work of breathing started on Solu-Medrol in addition to bronchodilators and given 1 dose of Lasix given her cardiovascular background Bedside echo indeed documents diffuse hypokinesis of the left ventricle averaging 35% ejection fraction but does not have the dilatation of the inferior vena cava. Hospital course 60-year-old diabetic, hypertensive and hyperlipidemic with known congestive cardiomyopathy ejection fraction 30-35% with elevated filling pressures and COPD with multiple asthmatic exacerbations presented with few days history of shortness of breath and intermittent chest discomfort in ER patient was treated aggressively with bronchodilator treatment and CPAP and subsequently admitted to intensive care unit for continued use of CPAP Acute respiratory failure due to Status asthmaticus/COPD exacerbation Patient initially admitted to intensive care unit on CPAP, patient treated with IV steroids is scheduled and as needed updraft treatment patient responded well to above treatment and was subsequently transferred to intermediate care unit, her shortness of breath has now resolved, patient talking in full sentences , her oxygenation is stable on 3 L of oxygen but she chronically uses at home Aggravating factors likely continued smoking and uri/ sinus infection, patient is now being discharged home on prednisone 20 mg daily for 5 days, doxycycline by mouth twice daily and recommended to continue home updraft and strongly advised to abstain from smoking Chronic respiratory failure with hypoxia continue home oxygen 3 L by nasal cannula Tobacco use disorder strongly advised to abstain from smoking patient currently smoking 3-4 cigarettes per day Diabetes mellitus blood sugars stable continue diabetic diet and resume metformin. Hypertension blood pressure is stable continue home medicine Coreg, lisinopril and amlodipine Time Spent with Patient Time attestation: Total time spent providing and/or coordinating discharge services: Discharge coordination time: Greater than 30 minutes Physical Exam Vital Signs: Vital Signs: Last Vital Signs Temp 97.2 F 07/30/20 11:15 Pulse 75 07/30/20 12:12 Resp 20 07/30/20 11:15 BP 179/89 H 07/30/20 08:00 Pulse Ox 92 07/30/20 11:15 Body Mass Index 31.6 General patient resting comfortably in no acute distress. Neck is supple no JVD. CVS regular rate rhythm, Respiratory lungs clear to auscultation, no respiratory distress, no wheeze, no rhonchi. Gastrointestinal abdomen soft, nontender, bowel sounds audible, no guarding , no rigidity. Extremities no clubbing cyanosis or edema. Neuro nonfocal . Skin no rash DS: Data Data Completed and Pending Labs on day of discharge: Laboratory Results - last 24 hr 07/29/20 07/30/20 07/30/20 19:53 07:56 11:01 POC Glucose 192 H 104 145 H Discharge Plan Discharge Patient Disposition: Home, Self-Care Referrals: Analisa Carr MD [Primary Care Provider] - Discharge Medications: New prednisone 20 mg Tablet 20 mg PO DAILY Qty: 5 RF: 0 doxycycline hyclate 100 mg Tablet 100 mg PO Q12H Qty: 10 RF: 0 Continued ipratropium-albuterol 0.5 mg-3 mg(2.5 mg base)/3 mL solution for nebulization 1 ml inhalation QID Qty: 360 RF: 6 carvedilol 12.5 mg tablet 12.5 mg PO BID Qty: 60 RF: 3 meclizine 25 mg tablet 25 mg PO TID PRN (Reason: dizziness) 30 Days Qty: 90 RF: 3 tiotropium bromide [Spiriva with HandiHaler] 18 mcg capsule, w/inhalation device 1 cap inhalation DAILY 30 Days Qty: 30 RF: 5 omeprazole 20 mg capsule,delayed release(DR/EC) 20 mg PO DAILY@0630 RF: 0 trazodone 50 mg tablet 50 - 100 mg PO BEDTIME PRN (Reason: Sleep) RF: 0 furosemide 40 mg tablet 1 tab PO QAM RF: 0 sertraline 100 mg tablet 2 tab PO DAILY RF: 0 metformin 1,000 mg tablet 1 tab PO BID RF: 0 montelukast 10 mg tablet 1 tab PO BEDTIME RF: 0 quetiapine 50 mg tablet 1 tab PO BID RF: 0 lisinopril 20 mg Tablet 20 mg PO DAILY Qty: 30 RF: 0 amlodipine 5 mg Tablet 5 mg PO DAILY Qty: 30 RF: 0 albuterol sulfate 90 mcg/actuation HFA aerosol inhaler 4 inh inhalation QID Qty: 18 RF: 0 folic acid 1 mg Tablet 1 mg PO DAILY Qty: 90 RF: 4 simvastatin 40 mg tablet 40 mg PO BEDTIME RF: 0 tramadol 50 mg tablet 50 mg PO BID PRN (Reason: pain) 30 Days Qty: 60 RF: 0 Discontinued cefuroxime axetil 250 mg tablet 500 mg PO Q12H Qty: 10 RF: 0 Discharge Orders: Discharge Order (Routine); Ordered 07/30/20 Ordered By: Annamaria Saxena Diet: diabetic diet and low fat, low cholesterol Activity on Discharge: As tolerated Stand Alone Forms: Patient Portal Discharge page Care Plan Goals: As above Health Concerns: COPD/asthma avoid smoking take all medications as prescribed Plan of Treatment: Close outpatient follow-up with primary care physician
--- NOTE | 2020-07-30 12:38 | MHC.CM.PN ---
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
== END 2020-07-30 14:00 | disposition home or self-care (01) | DRG 140 ==
LOC: HO.ED 16:10 → HO.ICU 16:57 → HO.IMC 07-28 13:43
PROVIDERS: Physician Assistant; Admitting Provider Internal Medicine Cardiovascular Disease; Emergency Provider Emergency Medicine Emergency Medical Services; PCP Internal Medicine; Visit Provider Hospitalist
DX: J44.1 Chronic obstructive pulmonary disease with (acute) exacerbation (principal); J96.21 Acute and chronic respiratory failure with hypoxia; I42.0 Dilated cardiomyopathy; I11.0 Hypertensive heart disease with heart failure; J45.902 Unspecified asthma with status asthmaticus; Z99.81 Dependence on supplemental oxygen; I50.22 Chronic systolic (congestive) heart failure; E78.5 Hyperlipidemia, unspecified; G47.33 Obstructive sleep apnea (adult) (pediatric); F17.210 Nicotine dependence, cigarettes, uncomplicated; Z71.6 Tobacco abuse counseling; Z20.822 Contact with and (suspected) exposure to COVID-19; Z79.51 Long term (current) use of inhaled steroids; Z79.899 Other long term (current) drug therapy
CPT/HCPCS: 0241U; 36415; 71046; 80048; 80053; 80076; 81001; 81003; 82947; 83735; 84100; 84484; 85025; 87635; 93005; 94640; 94660; 96365; 99285; J1940; J2930

== ENCOUNTER 2020-08-13 09:17 | Inpatient (IN) | payer OTHER, SELFPAY ==
[2020-08-13] VITALS (16 sets, daily range): BP systolic 137–192; BP diastolic 87–112; PULSE 72–101; RESP 16–28; TEMP 36.6–36.9; O2SAT 88–100; BMI 30.2
--- NOTE | ~2020-08-13 | XR_ITS ---
EXAMINATION: XR CHEST CLINICAL INFORMATION: Dyspnea COMPARISON: July 27, 2020 and studies dating back to November 15, 2016 TECHNIQUE: AP portable view of the chest was obtained. FINDINGS: There is bilateral chronic pleural-parenchymal scarring present with what may be some superimposed disease within the right middle lobe. No definite new focus of disease is appreciated. There is diminished vascularity within the upper lobes bilaterally consistent with emphysematous change. The cardiopericardial silhouette is enlarged. No evidence of pulmonary edema. No pneumothorax or significant pleural effusion. XR/XR chest 1V IMPRESSION: Emphysematous change. Chronic basilar lung disease with no definite new confluent region of disease appreciated. Cardiomegaly without pulmonary edema.
--- NOTE | 2020-08-13 09:37 | ED.SOB ---
HPI - SOB/Dyspnea General Chief Complaint: Dyspnea Stated Complaint: DYSPNEA,WHEEZING Time Seen by Provider: 08/13/20 09:37 Source: patient, EMS and healthcare interpreter Mode of arrival: EMS Limitations: no limitations History of Present Illness HPI Narrative: 60 yo female with DM, COPD states she has O2 at home, still smoking c/o 1 week of cough dry with no fevers, chest wall pain with cough MD elicited complaint: shortness of breath and cough Pertinent past history: COPD Onset (ago): week(s) (1) Context: smoke/fume exposure Timing: intermittent Severity: similar to previous episodes Exacerbating factors: coughing Relieving factors: bronchodilators Known history of: COPD Associated symptoms: cough and wheezing Treatment prior to arrival: bronchodilator Related Data Home Medications Medication Instructions Recorded Confirmed furosemide 1 tab PO QAM 03/08/20 07/26/20 metformin 1 tab PO BID 03/08/20 07/26/20 montelukast 1 tab PO BEDTIME 03/08/20 07/26/20 omeprazole 20 mg PO DAILY@0630 03/08/20 07/26/20 quetiapine 1 tab PO BID 03/08/20 07/26/20 sertraline 2 tab PO DAILY 03/08/20 07/26/20 trazodone 50 - 100 mg PO BEDTIME PRN 03/08/20 07/26/20 simvastatin 40 mg tablet 40 mg PO BEDTIME 05/21/20 07/26/20 Previous Rx's Medication Instructions Recorded amlodipine 5 mg PO DAILY #30 tab 03/11/20 lisinopril 20 mg PO DAILY #30 tab 03/11/20 ipratropium 0.5 mg-albuterol 3 mg 1 ml INHALATION QID #360 ml 03/14/20 (2.5 mg base)/3 mL nebulization soln carvedilol 12.5 mg tablet 12.5 mg PO BID #60 tab 04/17/20 albuterol sulfate 4 inh INHALATION QID #18 g 05/02/20 meclizine 25 mg tablet 25 mg PO TID PRN 30 Days #90 tab 05/10/20 tiotropium bromide 18 mcg capsule 1 cap INHALATION DAILY 30 Days #30 05/20/20 with inhalation device inh tramadol 50 mg tablet 50 mg PO BID PRN 30 Days #60 tab 05/21/20 folic acid 1 mg PO DAILY #90 tab 03/25/21 doxycycline hyclate 100 mg PO Q12H #10 tab 07/30/20 prednisone 20 mg PO DAILY #5 tab 07/30/20 Allergies Allergy/AdvReac Type Severity Reaction Status Date / Time nicotine [Nicotine] Allergy Unknown ITCHING Verified 05/21/20 10:40 WITH THE PATCHES topiramate Allergy Unknown inadequealte Verified 05/21/20 10:40 response Review of Systems Review of Systems: Constitutional : No Fever, No Chills ENT/Mouth : No sore throat, No Rhinorrhea, No Swallowing Difficulty Eyes: No Eye Pain, No Swelling, No Redness Cardiovascular : pos Chest Pain, positive SOB, No Orthopnea, no Edema Respiratory : No Cough, No Sputum, No Wheezing, positive dyspnea Gastrointestinal : No Nausea, No Vomiting, No Diarrhea, No abdominal Pain, No Hematochezia, No Melena Genitourinary : No Dysuria, No Urinary Frequency, No Hematuria Musculoskeletal : No joint pain, No Myalgias Skin : No Skin Lesions, No rash Neuro : pos Weakness, No Numbness, No Dizziness, No Headache Psych : No Anxiety/Panic, No Depression Heme/Lymph: No Bruising, No Lymphadenopathy Endocrine : No Polyuria, No Polydipsia All other systems reviewed and are negative PMFSH Past Medical History Attestation statement: The following information was validated with the patient. Medical History Acute and chronic respiratory failure with hypoxia Acute exacerbation of chronic obstructive pulmonary disease Anemia Anxiety Cardiomyopathy Chronic respiratory failure COPD (chronic obstructive pulmonary disease) Depression Diabetes HFrEF (heart failure with reduced ejection fraction) HLD (hyperlipidemia) HTN (hypertension) Low back pain Mitral regurgitation Normocytic anemia KELLIE (obstructive sleep apnea) Postmenopausal Respiratory failure, acute Severe chronic obstructive pulmonary disease Supplemental oxygen dependent Surgical History Bilateral ankle fractures History of total abdominal hysterectomy Family History Family History Father No problems noted. Mother Liver cancer Hypertension Social History Social History Household Members: None Housing: Apartment Alcohol intake: never Smoking Status: Current every day smoker Tobacco Type: Cigarette Packs Per Day: 1 Second Hand Smoke Exposure: No Advance Directives: Yes Advance Directives on File: Yes Advance Directives Date on File: 04/30/20 service: No Current occupational status: disabled Physical Exam Vital Signs: Vital Signs: Last Vital Signs Temp 97.8 F 08/13/20 09:26 Pulse 79 08/13/20 10:03 Resp 28 H 08/13/20 09:26 BP 169/100 H 08/13/20 10:22 Pulse Ox 98 08/13/20 09:26 Body Mass Index 30.2 Appearance: Alert. Oriented X3. No acute distress. 100% on EMS neb treatment Eyes: Pupils equal, round and reactive to light. ENT: Pharynx normal. Neck: Normal inspection. Neck supple. CVS: Normal heart rate and rhythm. Pulses normal. Respiratory: No respiratory distress. Breath sounds decreased throughout Abdomen: Soft and nontender. Skin: Skin warm and dry. Normal skin color. Normal skin turgor. Extremities: No lower extremity edema. No calf ttp Neuro: Oriented X 3. No motor deficit. No sensory deficit. Course Course Course Narrative: 85% on 4L NC bumped to 6L NC up to 95%, repeat neb ordered 5mg at this time will need admission for further workup MDM - SOB/Dyspnea MDM Narrative Medical decision making narrative: 60 yo female with COPD on home O2 has neb machine at home, DM here with 1 week dry cough and dyspnea - still smokes at this time likely COPD will need labs, CXR, IV steroids, repeat neb - dispo per results and findings, if she improves anticipate DC home with steroids/antibiotics, patient feels markedly better just from EMS treatment Lab Data Result diagrams: 08/13/20 11:40 08/13/20 10:09 Labs: Lab Results 08/13/20 08/13/20 08/13/20 Range/Units 10:09 10:09 10:09 WBC (4.8-10.8) X10*3/uL RBC (4.20-5.50) X10*6/uL Hgb (12.0-16.0) g/dl Hct (37-47) % MCV (80-98) fL MCH (27.0-33.0) pg MCHC (31.0-35.0) g/dl RDW (11.0-16.0) % Plt Count (160-400) X10*3/uL MPV (9.4-12.3) fL Immature Gran % (Auto) (0.0-0.4) % Neut % (Auto) (45-73) % Lymph % (Auto) (20-40) % [place] % (Auto) (2-11) % Eos % (Auto) (0-4) % Baso % (Auto) (0-2) % Lymph # (Auto) (1.2-4.9) X10*3/uL [place] # (Auto) (0.1-1.2) X10*3/uL Eos # (Auto) (0.0-0.4) X10*3/uL Baso # (Auto) (0.0-0.2) X10*3/uL Abs Immat Gran (auto) (0.00-0.03) X10*3/uL Absolute Neuts (auto) (2.0-8.3) X10*3/uL Absolute Nucleated RBC (0.0-0.012) X10*3/uL Nucleated RBC % (auto) (0.0-0.2) /100WBC Hold Blue Top Sodium 142 (135-145) mmol/L Potassium 3.9 (3.3-5.1) mmol/L Chloride 106 (96-108) mmol/L Carbon Dioxide 29 (22-29) mmol/L Anion Gap 11 L (12-20) BUN 11 (9-16) mg/dL Creatinine 0.72 (0.5-1.4) mg/dL Estim Creat Clear Calc 70.6 Estimated GFR > 60 Random Glucose 118 H (60-115) mg/dL Calcium 8.6 D (8.4-10.2) mg/dL Total Bilirubin 0.3 (0.0-1.0) mg/dL Direct Bilirubin < 0.2 (0.0-0.5) mg/dL AST 16 (5-31) U/L ALT 14 (0-31) U/L Alkaline Phosphatase 144 H (39-117) U/L Troponin I High Sens 10.6 (<3.5-17.0) ng/L B-Natriuretic Peptide (<100) pg/mL Total Protein 6.9 (6.5-8.0) g/dL Albumin 3.9 (3.5-5.0) g/dL COVID-19 (ANEL) (Negative) COVID-19 Clin Com 08/13/20 08/13/20 08/13/20 Range/Units 11:40 11:40 11:40 WBC 9.4 (4.8-10.8) X10*3/uL RBC 3.90 L (4.20-5.50) X10*6/uL Hgb 9.8 L (12.0-16.0) g/dl Hct 33.2 L (37-47) % MCV 85.1 (80-98) fL MCH 25.1 L (27.0-33.0) pg MCHC 29.5 L (31.0-35.0) g/dl RDW 15.9 (11.0-16.0) % Plt Count 184 (160-400) X10*3/uL MPV 10.0 (9.4-12.3) fL Immature Gran % (Auto) 0.4 (0.0-0.4) % Neut % (Auto) 88.0 H (45-73) % Lymph % (Auto) 7.8 L (20-40) % [place] % (Auto) 2.3 (2-11) % Eos % (Auto) 1.3 (0-4) % Baso % (Auto) 0.2 (0-2) % Lymph # (Auto) 0.7 L (1.2-4.9) X10*3/uL [place] # (Auto) 0.2 (0.1-1.2) X10*3/uL Eos # (Auto) 0.1 (0.0-0.4) X10*3/uL Baso # (Auto) 0.0 (0.0-0.2) X10*3/uL Abs Immat Gran (auto) 0.04 H (0.00-0.03) X10*3/uL Absolute Neuts (auto) 8.3 (2.0-8.3) X10*3/uL Absolute Nucleated RBC 0.000 (0.0-0.012) X10*3/uL Nucleated RBC % (auto) 0.0 (0.0-0.2) /100WBC Hold Blue Top SEE NOTE Sodium (135-145) mmol/L Potassium (3.3-5.1) mmol/L Chloride (96-108) mmol/L Carbon Dioxide (22-29) mmol/L Anion Gap (12-20) BUN (9-16) mg/dL Creatinine (0.5-1.4) mg/dL Estim Creat Clear Calc Estimated GFR Random Glucose (60-115) mg/dL Calcium (8.4-10.2) mg/dL Total Bilirubin (0.0-1.0) mg/dL Direct Bilirubin (0.0-0.5) mg/dL AST (5-31) U/L ALT (0-31) U/L Alkaline Phosphatase (39-117) U/L Troponin I High Sens (<3.5-17.0) ng/L B-Natriuretic Peptide 284 H (<100) pg/mL Total Protein (6.5-8.0) g/dL Albumin (3.5-5.0) g/dL COVID-19 (ANEL) (Negative) COVID-19 Clin Com 08/13/20 Range/Units 11:40 WBC (4.8-10.8) X10*3/uL RBC (4.20-5.50) X10*6/uL Hgb (12.0-16.0) g/dl Hct (37-47) % MCV (80-98) fL MCH (27.0-33.0) pg MCHC (31.0-35.0) g/dl RDW (11.0-16.0) % Plt Count (160-400) X10*3/uL MPV (9.4-12.3) fL Immature Gran % (Auto) (0.0-0.4) % Neut % (Auto) (45-73) % Lymph % (Auto) (20-40) % [place] % (Auto) (2-11) % Eos % (Auto) (0-4) % Baso % (Auto) (0-2) % Lymph # (Auto) (1.2-4.9) X10*3/uL [place] # (Auto) (0.1-1.2) X10*3/uL Eos # (Auto) (0.0-0.4) X10*3/uL Baso # (Auto) (0.0-0.2) X10*3/uL Abs Immat Gran (auto) (0.00-0.03) X10*3/uL Absolute Neuts (auto) (2.0-8.3) X10*3/uL Absolute Nucleated RBC (0.0-0.012) X10*3/uL Nucleated RBC % (auto) (0.0-0.2) /100WBC Hold Blue Top Sodium (135-145) mmol/L Potassium (3.3-5.1) mmol/L Chloride (96-108) mmol/L Carbon Dioxide (22-29) mmol/L Anion Gap (12-20) BUN (9-16) mg/dL Creatinine (0.5-1.4) mg/dL Estim Creat Clear Calc Estimated GFR Random Glucose (60-115) mg/dL Calcium (8.4-10.2) mg/dL Total Bilirubin (0.0-1.0) mg/dL Direct Bilirubin (0.0-0.5) mg/dL AST (5-31) U/L ALT (0-31) U/L Alkaline Phosphatase (39-117) U/L Troponin I High Sens (<3.5-17.0) ng/L B-Natriuretic Peptide (<100) pg/mL Total Protein (6.5-8.0) g/dL Albumin (3.5-5.0) g/dL COVID-19 (ANEL) Negative (Negative) COVID-19 Clin Com See Note ECG Data Attestation: I personally reviewed and interpreted this ECG as follows: ECG interpretation date: 08/13/20 ECG interpretation time: 10:37 Interpretation: Rate: 102 Rhythm: sinus tachycardia [place]: normal Normal P waves. Normal GUILLE. NSIVCD ST T wave : normal, no LAURO qTC: normal prior studies: no acute ischemia The study has been interpreted contemporaneously by me. . Critical Care Time Critical Care Time Critical Care Time: Yes Total Critical Care Time: 30 Attestation: repeat nebs, 5mg I attest to this time spent taking care of the patient Discharge Plan Discharge Clinical Impression: Asthma with exacerbation Qualifiers: Asthma severity: moderate Asthma persistence: persistent Qualified Code(s): J45.41 - Moderate persistent asthma with (acute) exacerbation Patient Disposition: Admitted As Inpatient
--- NOTE | 2020-08-13 09:51 | ECG_ITS ---
Test Reason : SOB Blood Pressure : / mmHG Vent. Rate : 102 BPM Atrial Rate : 102 BPM P-R Int : 156 ms QRS Dur : 120 ms QT Int : 382 ms P-R-T Axes : 032 046 015 degrees QTc Int : 497 ms Sinus tachycardia Non-specific intra-ventricular conduction delay Borderline ECG When compared with ECG of 27-JUL-2020 10:39, No significant change was found Referred By: Kezia Chapman Electronically Signed By:NATALIA SHANNON
[2020-08-13] MEDS: Albuterol Sulfate (0.083%) 2.5 MG/3 ML VIAL.NEB INHALE (10:03)
[2020-08-13] MEDS: methylPREDNISolone Sod Succ 125 MG/2 ML VIAL IVPUSH (10:12)
[2020-08-13 10:47] LABS: Anion Gap 11 (12-20); Blood Urea Nitrogen 11 mg/dL (9-16); Calcium 8.6 mg/dL (8.4-10.2); Carbon Dioxide 29 mmol/L (22-29); Chloride 106 mmol/L (96-108); Creatinine Clr Calc Pharmacy 70.6; Estimated Glomerular Filt Rate > 60; Glucose Random 118 mg/dL (60-115); Potassium 3.9 mmol/L (3.3-5.1); Sodium 142 mmol/L (135-145)
[2020-08-13 10:48] LABS: Alanine Aminotransferase 14 U/L (0-31); Albumin Level 3.9 g/dL (3.5-5.0); Alkaline Phosphatase 144 U/L (39-117); Aspartate Amino Transferase 16 U/L (5-31); Bilirubin Direct < 0.2 mg/dL (0.0-0.5); Bilirubin Total 0.3 mg/dL (0.0-1.0); Total Protein 6.9 g/dL (6.5-8.0)
[2020-08-13 10:53] LABS: Troponin-I High Sensitivity 10.6 ng/L (<3.5-17.0)
--- NOTE | 2020-08-13 11:08 | PC.NURSE ---
Pt desat to 84 on 4l while ambulating to bathroom. Primary rn aware.
[2020-08-13 11:48] LABS: MANUAL DIFF FLAG NO
[2020-08-13 11:51] LABS: Basophils Percent Auto 0.2 % (0-2); Eosinophils Absolute Auto 0.1 X10*3/uL (0.0-0.4); Eosinophils Percent Auto 1.3 % (0-4); Hematocrit 33.2 % (37-47); Hemoglobin 9.8 g/dl (12.0-16.0); Imm Gran Abs Auto 0.04 X10*3/uL (0.00-0.03); Imm Gran Pct Auto 0.4 % (0.0-0.4); Lymphocytes Absolute Auto 0.7 X10*3/uL (1.2-4.9); Lymphocytes Percent Auto 7.8 % (20-40); Mean Corpuscular HGB Conc 29.5 g/dl (31.0-35.0); Mean Corpuscular Hemoglobin 25.1 pg (27.0-33.0); Mean Corpuscular Volume 85.1 fL (80-98); Monocytes Absolute Auto 0.2 X10*3/uL (0.1-1.2); Monocytes Percent Auto 2.3 % (2-11); Neutrophils Absolute Auto 8.3 X10*3/uL (2.0-8.3); Platelet Count 184 X10*3/uL (160-400); Red Cell Distribution Width 15.9 % (11.0-16.0); White Blood Count 9.4 X10*3/uL (4.8-10.8)
[2020-08-13 12:12] LABS: COVID-19 Test Negative (Negative)
[2020-08-13 12:18] LABS: B Type Natriuretic Peptide 284 pg/mL (<100)
[2020-08-13] MEDS: Albuterol Sulfate (0.083%) 2.5 MG/3 ML VIAL.NEB 5 MG INHALE (12:36)
[2020-08-13] MEDS: Magnesium Sulfate/H2O 2 GM/50 ML PIGGYBACK IV (12:55)
[2020-08-13] MEDS: hydrALAZINE HCl 20 MG/ML VIAL 5 MG IVPUSH (13:24)
[2020-08-13 14:45] LABS: Procalcitonin 0.02 ng/mL
[2020-08-13] MEDS: Enoxaparin Sodium 40 MG/0.4 ML SYRINGE SUBCUT (14:53)
[2020-08-13] MEDS: Folic Acid 1 MG TABLET PO (14:53)
[2020-08-13] MEDS: carvediloL 12.5 MG TABLET PO ×2 (14:53→21:12)
[2020-08-13] MEDS: Sertraline HCL 100 MG TABLET 200 MG PO (15:07)
[2020-08-13] MEDS: Omeprazole 20 MG CAPSULE.DR PO (15:07)
[2020-08-13] MEDS: QUEtiapine Fumarate 50 MG TABLET PO ×2 (15:07→21:12)
--- NOTE | 2020-08-13 16:23 | P.HPHOSP_ITS ---
History of Present Illness Date of Service: 08/13/20 Chief Complaint: dyspnea, wheezing History taken in German from this 60 year-old woman with COPD/asthma, chronic hypoxic respiratory failure on 3L of home O2, HTN, NICM with last EF 30% 06/18/20, DM2, chronic anemia, and ongoing tobacco abuse who was last admitted to this hospital for status asthmaticus/COPD exacerbation requiring CPAP in the ICU 07/27-07/30/20. She presents today with a one-day history of worsening dyspnea and wheeze, along with chest tightness. She denies cough. She called EMS and was found to have SaO2 in the mid 80s despite 4L O2 via NC. Currently her SaO2 is 90 on 4L O2 via NC. She denies fever, chills, or sick contacts. She has not been vaccinated against COVID-19. In the ED, she was given 7.5mg of nebulized albuterol, 2g of IV magnesium sulfate, and 125mg of IV methylprednisolone. She states she feels better. She denies leg swelling. She does not have a history of DVT or PE. Review of Systems Review of Systems: Yes all other systems are reviewed and are negative [facility] Medical History (Updated 08/13/20 @ 16:31 by Ashutosh Card MD) Acute and chronic respiratory failure with hypoxia Acute exacerbation of chronic obstructive pulmonary disease Acute on chronic respiratory failure with hypoxemia Anemia Anxiety Cardiomyopathy Chronic respiratory failure COPD (chronic obstructive pulmonary disease) COPD exacerbation Depression Diabetes HFrEF (heart failure with reduced ejection fraction) HLD (hyperlipidemia) HTN (hypertension) Low back pain Mitral regurgitation Normocytic anemia KELLIE (obstructive sleep apnea) Postmenopausal Respiratory failure, acute Severe chronic obstructive pulmonary disease Supplemental oxygen dependent Family History Father No problems noted. Mother Liver cancer Hypertension Surgical History Bilateral ankle fractures History of total abdominal hysterectomy Social History Household Members: None Housing: Apartment Alcohol intake: never Smoking Status: Current every day smoker Tobacco Type: Cigarette Packs Per Day: 1 Second Hand Smoke Exposure: No Advance Directives: Yes Advance Directives on File: Yes Advance Directives Date on File: 04/30/20 service: No Current occupational status: disabled Meds Allergies Allergy/AdvReac Type Severity Reaction Status Date / Time nicotine [Nicotine] Allergy Unknown ITCHING Verified 05/21/20 10:40 WITH THE PATCHES topiramate Allergy Unknown inadequealte Verified 05/21/20 10:40 response Active Medications: Current Medications Generic Name Dose Route Start Last Admin Trade Name Freq PRN Reason Stop Dose Admin Acetaminophen 650 mg 08/13/20 14:36 Acetaminophen 325 Mg Tablet PO Q6H PRN Pain, Mild (Pain Scale 1-3) Albuterol/Ipratropium 3 ml 08/13/20 14:36 Albuterol/Iprat 2.5/0.5mg 3 Ml Ampul.Neb INHALE Q4H PRN Shortness of Breath/Wheezing Albuterol/Ipratropium 1 ml 08/13/20 17:00 Albuterol/Iprat 2.5/0.5mg 3 Ml Ampul.Neb INHALE QID [facility] Atorvastatin Calcium 20 mg 08/13/20 21:00 Atorvastatin Calcium 20 Mg Tablet PO BEDTIME WALDEMAR Carvedilol 12.5 mg 08/13/20 14:45 08/13/20 14:53 Carvedilol 12.5 Mg Tablet PO 12.5 mg BID WALDEMAR Administration Protocol Enoxaparin Sodium 40 mg 08/13/20 15:00 08/13/20 14:53 Enoxaparin Sodium 40 Mg/0.4 Ml Syringe SUBCUT 40 mg Q24H WALDEMAR Administration Folic Acid 1 mg 08/13/20 14:45 08/13/20 14:53 Folic Acid 1 Mg Tablet PO 1 mg DAILY [facility] Administration Insulin Human Lispro 0 unit 08/13/20 16:30 Insulin Lispro 100 Unit/Ml 3 Ml Vial SUBCUT QIDACHS [facility] Protocol Meclizine HCl 25 mg 08/13/20 14:42 Meclizine Hcl 25 Mg Tablet PO TID PRN dizziness Methylprednisolone Sodium Succinate 40 mg 08/14/20 09:00 Methylprednisolone Sod Succ 40 Mg/Ml Vial IVPUSH DAILY [facility] Montelukast Sodium 10 mg 08/13/20 21:00 Montelukast Sodium 10 Mg Tablet PO BEDTIME [facility] Omeprazole 20 mg 08/13/20 14:45 08/13/20 15:07 Omeprazole 20 Mg Capsule. PO 20 mg DAILY@0630 WALDEMAR Administration Ondansetron HCl 4 mg 08/13/20 14:36 Ondansetron Hcl 4 Mg/2 Ml Vial IVPUSH Q8H PRN Nausea and Vomiting Pharmacy Consult 1 each 08/13/20 12:29 Consult Rx Perform Med Rec MISCELLANE ONCE PRN Consult order Quetiapine Fumarate 50 mg 08/13/20 14:45 08/13/20 15:07 Quetiapine Fumarate 50 Mg Tablet PO 50 mg BID WALDEMAR Administration Sertraline HCl 200 mg 08/13/20 14:45 08/13/20 15:07 Sertraline Hcl 100 Mg Tablet PO 200 mg DAILY WALDEMAR Administration Tiotropium [place] 1 puff 08/13/20 14:45 Tiotropium [place] 18 Mcg Cap.W.Dev INHALE DAILY [facility] Tramadol HCl 50 mg 08/13/20 14:42 Tramadol Hcl 50 Mg Tablet PO BID PRN pain Home Medications Medication Instructions Recorded Confirmed Last Taken Type metformin 1 tab PO BID 03/08/20 07/26/20 Unknown History montelukast 1 tab PO BEDTIME 03/08/20 08/13/20 05/12/20 History omeprazole 20 mg PO DAILY@0630 03/08/20 08/13/20 05/12/20 History quetiapine 1 tab PO BID 03/08/20 08/13/20 05/12/20 History sertraline 2 tab PO DAILY 03/08/20 08/13/20 05/12/20 History trazodone 50 - 100 mg PO BEDTIME PRN 03/08/20 08/13/20 05/12/20 History simvastatin 40 mg tablet 40 mg PO BEDTIME 05/21/20 08/13/20 Unknown History Physical Exam Vital Signs and Narrative: Vital Signs: Last Vital Signs Temp 97.8 F 08/13/20 09:26 Pulse 89 08/13/20 14:53 Resp 18 08/13/20 13:49 BP 163/94 H 08/13/20 13:49 Pulse Ox 89 L 08/13/20 13:49 Body Mass Index 30.2 Gen: in no acute distress HEENT: sclera anicteric, moist mucus membranes Neck: supple Lungs: diminished bilaterally but no audible wheezes Heart: regular rate and rhythm, no murmurs Abd: soft, obese, non-tender, non-distended Ext: no edema, negative Mendez's sign Skin: warm/well-perfused Neuro: alert and oriented x3, no focal findings Psych: appropriate affect Results Labs CBC and Chem 7: 08/13/20 11:40 08/13/20 10:09 Labs: Laboratory Results - last 24 hr 08/13/20 08/13/20 08/13/20 10:09 10:09 10:09 MCV MCH MCHC RDW Plt Count MPV Immature Gran % (Auto) Neut % (Auto) Lymph % (Auto) [place] % (Auto) Eos % (Auto) Baso % (Auto) Lymph # (Auto) [place] # (Auto) Eos # (Auto) Baso # (Auto) Abs Immat Gran (auto) Absolute Neuts (auto) Absolute Nucleated RBC Nucleated RBC % (auto) Hold Blue Top Anion Gap 11 L Estim Creat Clear Calc 70.6 Estimated GFR > 60 Random Glucose 118 H Calcium 8.6 D Total Bilirubin 0.3 Direct Bilirubin < 0.2 AST 16 ALT 14 Alkaline Phosphatase 144 H Troponin I High Sens 10.6 B-Natriuretic Peptide Total Protein 6.9 Albumin 3.9 Procalcitonin COVID-19 (ANEL) Parallocity 08/13/20 08/13/20 08/13/20 10:09 11:40 11:40 MCV 85.1 MCH 25.1 L MCHC 29.5 L RDW 15.9 Plt Count 184 MPV 10.0 Immature Gran % (Auto) 0.4 Neut % (Auto) 88.0 H Lymph % (Auto) 7.8 L [place] % (Auto) 2.3 Eos % (Auto) 1.3 Baso % (Auto) 0.2 Lymph # (Auto) 0.7 L [place] # (Auto) 0.2 Eos # (Auto) 0.1 Baso # (Auto) 0.0 Abs Immat Gran (auto) 0.04 H Absolute Neuts (auto) 8.3 Absolute Nucleated RBC 0.000 Nucleated RBC % (auto) 0.0 Hold Blue Top SEE NOTE Anion Gap Estim Creat Clear Calc Estimated GFR Random Glucose Calcium Total Bilirubin Direct Bilirubin AST ALT Alkaline Phosphatase Troponin I High Sens B-Natriuretic Peptide Total Protein Albumin Procalcitonin 0.02 COVID-19 (ANEL) COVIDKompyte. 08/13/20 08/13/20 11:40 11:40 MCV MCH MCHC RDW Plt Count MPV Immature Gran % (Auto) Neut % (Auto) Lymph % (Auto) [place] % (Auto) Eos % (Auto) Baso % (Auto) Lymph # (Auto) [place] # (Auto) Eos # (Auto) Baso # (Auto) Abs Immat Gran (auto) Absolute Neuts (auto) Absolute Nucleated RBC Nucleated RBC % (auto) Hold Blue Top Anion Gap Estim Creat Clear Calc Estimated GFR Random Glucose Calcium Total Bilirubin Direct Bilirubin AST ALT Alkaline Phosphatase Troponin I High Sens B-Natriuretic Peptide 284 H Total Protein Albumin Procalcitonin COVID-19 (ANEL) Negative COVID-19 Clin Com See Note Imaging Radiologist's Impressions: Impressions Chest X-Ray 08/13/20 09:52 IMPRESSION: Emphysematous change. Chronic basilar lung disease with no definite new confluent region of disease appreciated. Cardiomegaly without pulmonary edema. EKG: Test Reason : SOB Blood Pressure : / mmHG Vent. Rate : 102 BPM Atrial Rate : 102 BPM P-R Int : 156 ms QRS Dur : 120 ms QT Int : 382 ms P-R-T Axes : 032 046 015 degrees QTc Int : 497 ms Sinus tachycardia Non-specific intra-ventricular conduction delay Borderline ECG When compared with ECG of 27-JUL-2020 10:39, No significant change was found Assessment and Plan (1) Asthma with exacerbation: Qualifiers: Asthma persistence: persistent Asthma severity: moderate Qualified Code(s): J45.41 - Moderate persistent asthma with (acute) exacerbation Status: Acute (2) Acute on chronic respiratory failure with hypoxemia: Status: Acute (3) COPD exacerbation: Status: Acute 60 year-old woman with COPD/asthma, chronic hypoxic respiratory failure on 3L of home O2, HTN, NICM with last EF 30% 06/18/20, DM2, chronic anemia, and ongoing tobacco abuse presenting with fairly acute onset of dyspnea and wheezing, found to be hypoxic. # acute/chronic hypoxic respiratory failure - supplemental O2 as tolerated. will check VBG. will check D-dimer and if elevated, will check CTA to r/o PE # COPD/asthma exacerbation - methylprednisolone IV, prn MARILYN/NIRMAL inhaler; no ABX given lack of purulent sputum - continue LABA + LTRA # troponin indeterminate - suspect demand ischemia from above issues and underlying HFrEF; no EKG changes; recheck hs-[id number] # NICM, chronic HFrEF - continue lisionpril + carvedilol. appears euvolemic. # DM2 - correction-dose lispro # HLD - atorvastatin # mood disorder - sertraline + quetiapine # VTE ppx - LMWH # code - FULL
[2020-08-13 17:09] LABS: Venous Blood Gas Refer to POC result
[2020-08-13 17:10] LABS: VBG Base Excess 3.2 mmol/L; VBG HCO3 28 mmol/L (22-26); VBG pCO2 45 mmHg; VBG pO2 36 mmHg
[2020-08-13 17:44] LABS: Troponin-I High Sensitivity 16.1 ng/L (<3.5-17.0)
[2020-08-13 18:14] LABS: D Dimer < 200 NG/ML
[2020-08-13 18:37] LABS: Glucose, Whole Blood 178 mg/dL (60-115)
[2020-08-13] MEDS: Insulin Lispro 100 UNIT/ML 3 ML VIAL SUBCUT (19:12)
--- NOTE | 2020-08-13 19:59 | PC.NURSE ---
respitory called to complete the meds from 1400.
--- NOTE | 2020-08-13 20:04 | PC.RT ---
First shift RT unavailable
[2020-08-13] MEDS: Atorvastatin Calcium 20 MG TABLET PO (21:12)
[2020-08-13] MEDS: Montelukast Sodium 10 MG TABLET PO (21:12)
[2020-08-13 21:52] LABS: Glucose, Whole Blood 175 mg/dL (60-115)
[2020-08-13] MEDS: Albuterol/Iprat 2.5/0.5MG 3 ML AMPUL.NEB 1 ML INHALE (23:40)
[2020-08-14] VITALS (8 sets, daily range): BP systolic 140–195; BP diastolic 79–107; PULSE 68–80; RESP 17–20; TEMP 36.7–37.2; O2SAT 96–99
[2020-08-14] MEDS: Omeprazole 20 MG CAPSULE.DR PO (06:17)
[2020-08-14] MEDS: Acetaminophen 325 MG TABLET 650 MG PO (06:17)
[2020-08-14 07:23] LABS: MANUAL DIFF FLAG NO
[2020-08-14 07:26] LABS: Basophils Percent Auto 0.1 % (0-2); Eosinophils Percent Auto 0.1 % (0-4); Hematocrit 32.2 % (37-47); Hemoglobin 9.8 g/dl (12.0-16.0); Imm Gran Abs Auto 0.02 X10*3/uL (0.00-0.03); Imm Gran Pct Auto 0.2 % (0.0-0.4); Lymphocytes Absolute Auto 1.3 X10*3/uL (1.2-4.9); Lymphocytes Percent Auto 13.5 % (20-40); Mean Corpuscular HGB Conc 30.4 g/dl (31.0-35.0); Mean Corpuscular Hemoglobin 25.4 pg (27.0-33.0); Mean Corpuscular Volume 83.4 fL (80-98); Mean Platelet Volume 10.2 fL (9.4-12.3); Monocytes Absolute Auto 0.6 X10*3/uL (0.1-1.2); Monocytes Percent Auto 6.7 % (2-11); Neutrophils Absolute Auto 7.6 X10*3/uL (2.0-8.3); Neutrophils Percent Auto 79.4 % (45-73); Platelet Count 200 X10*3/uL (160-400); Red Blood Count 3.86 X10*6/uL (4.20-5.50); Red Cell Distribution Width 15.9 % (11.0-16.0); White Blood Count 9.6 X10*3/uL (4.8-10.8)
[2020-08-14 07:28] LABS: VBG Base Excess 4.2 mmol/L; VBG HCO3 29 mmol/L (22-26); VBG pCO2 48 mmHg; VBG pH 7.39 (7.32-7.43); VBG pO2 44 mmHg
[2020-08-14 07:28] LABS: Venous Blood Gas Refer to POC result
[2020-08-14 07:52] LABS: Anion Gap 11 (12-20); Blood Urea Nitrogen 15 mg/dL (9-16); Calcium 8.8 mg/dL (8.4-10.2); Carbon Dioxide 28 mmol/L (22-29); Chloride 105 mmol/L (96-108); Creatinine Clr Calc Pharmacy 68.6; Estimated Glomerular Filt Rate > 60; Glucose Random 103 mg/dL (60-115); Magnesium 2.5 mg/dL (1.6-2.6); Potassium 3.7 mmol/L (3.3-5.1); Sodium 140 mmol/L (135-145)
[2020-08-14 07:57] LABS: B Type Natriuretic Peptide 771 pg/mL (<100)
[2020-08-14 08:50] LABS: Glucose, Whole Blood 103 mg/dL (60-115)
[2020-08-14] MEDS: Folic Acid 1 MG TABLET PO (09:18)
[2020-08-14] MEDS: lisinopriL 10 MG TABLET PO (09:18)
[2020-08-14] MEDS: Sertraline HCL 100 MG TABLET 200 MG PO (09:18)
[2020-08-14] MEDS: QUEtiapine Fumarate 50 MG TABLET PO ×2 (09:18→20:51)
[2020-08-14] MEDS: carvediloL 12.5 MG TABLET PO ×2 (09:18→20:51)
[2020-08-14] MEDS: methylPREDNISolone Sod Succ 40 MG/ML VIAL IVPUSH (09:18)
[2020-08-14 11:38] LABS: Glucose, Whole Blood 118 mg/dL (60-115)
--- NOTE | 2020-08-14 12:20 | MHC.CM.PN ---
PATIENT LIVES ALONE. SHE HAS A WHEELED WALKER AND HOME O2 THROUGH [facility] [place]. PATIENT HAS M-F [employer] FOR ONE HOUR EACH OF THE DAYS. HCP IS ON FILE AND VERIFIED. SHE IS HOPING TO RETURN HOME TOMORROW WITH RESUMPTION OF [employer]. ASSESSMENT PERFORMED WITH [facility] [employer]
[2020-08-14] MEDS: Enoxaparin Sodium 40 MG/0.4 ML SYRINGE SUBCUT (14:16)
--- NOTE | 2020-08-14 14:51 | HO.PM.IMPN ---
Subjective Subjective Date of Service: 08/14/20 Interval History: breathing improved no chest pain BP high Physical Exam Vital Signs: Vital Signs: Last Vital Signs Temp 98.0 F 08/14/20 11:08 Pulse 79 08/14/20 11:08 Resp 19 08/14/20 11:08 BP 140/97 H 08/14/20 11:08 Pulse Ox 99 08/14/20 11:08 Body Mass Index 30.2 Gen: in no acute distress HEENT: sclera anicteric, moist mucus membranes Neck: supple Lungs: very soft end-exp wheeze scattered Heart: regular rate and rhythm, no murmurs Abd: soft, obese, non-tender, non-distended Ext: no edema Skin: warm/well-perfused Neuro: alert and oriented x3, no focal findings Psych: appropriate affect Objective Data Current Medications Generic Name Dose Route Start Last Admin Trade Name Freq PRN Reason Stop Dose Admin Acetaminophen 650 mg 08/13/20 14:36 08/14/20 06:17 Acetaminophen 325 Mg Tablet PO 650 mg Q6H PRN Administration Pain, Mild (Pain Scale 1-3) Albuterol/Ipratropium 3 ml 08/13/20 14:36 Albuterol/Iprat 2.5/0.5mg 3 Ml Ampul.Neb INHALE Q4H PRN Shortness of Breath/Wheezing Atorvastatin Calcium 20 mg 08/13/20 21:00 08/13/20 21:12 Atorvastatin Calcium 20 Mg Tablet PO 20 mg BEDTIME WALDEMAR Administration Carvedilol 12.5 mg 08/13/20 14:45 08/14/20 09:18 Carvedilol 12.5 Mg Tablet PO 12.5 mg BID WALDEMAR Administration Protocol Enoxaparin Sodium 40 mg 08/13/20 15:00 08/14/20 14:16 Enoxaparin Sodium 40 Mg/0.4 Ml Syringe SUBCUT 40 mg Q24H WALDEMAR Administration Folic Acid 1 mg 08/13/20 14:45 08/14/20 09:18 Folic Acid 1 Mg Tablet PO 1 mg DAILY WALDEMAR Administration Insulin Human Lispro 0 unit 08/13/20 16:30 08/14/20 12:28 Insulin Lispro 100 Unit/Ml 3 Ml Vial SUBCUT Not Given QIDACHS [facility] Protocol Lisinopril 10 mg 08/14/20 09:00 08/14/20 09:18 Lisinopril 10 Mg Tablet PO 10 mg DAILY WALDEMAR Administration Protocol Meclizine HCl 25 mg 08/13/20 14:42 Meclizine Hcl 25 Mg Tablet PO TID PRN dizziness Methylprednisolone Sodium Succinate 40 mg 08/14/20 09:00 08/14/20 09:18 Methylprednisolone Sod Succ 40 Mg/Ml Vial IVPUSH 40 mg DAILY WALDEMAR Administration Montelukast Sodium 10 mg 08/13/20 21:00 08/13/20 21:12 Montelukast Sodium 10 Mg Tablet PO 10 mg BEDTIME WALDEMAR Administration Omeprazole 20 mg 08/13/20 14:45 08/14/20 06:17 Omeprazole 20 Mg Capsule.Dr PO 20 mg DAILY@0630 WALDEMAR Administration Ondansetron HCl 4 mg 08/13/20 14:36 Ondansetron Hcl 4 Mg/2 Ml Vial IVPUSH Q8H PRN Nausea and Vomiting Pharmacy Consult 1 each 08/13/20 12:29 Consult Rx Perform Med Rec MISCELLANE ONCE PRN Consult order Quetiapine Fumarate 50 mg 08/13/20 14:45 08/14/20 09:18 Quetiapine Fumarate 50 Mg Tablet PO 50 mg BID WALDEMAR Administration Sertraline HCl 200 mg 08/13/20 14:45 08/14/20 09:18 Sertraline Hcl 100 Mg Tablet PO 200 mg DAILY WALDEMAR Administration Tiotropium [place] 1 puff 08/13/20 14:45 08/14/20 07:53 Tiotropium Harrison 18 Mcg Cap.W.Dev INHALE Not Given DAILY [facility] Tramadol HCl 50 mg 08/13/20 14:42 Tramadol Hcl 50 Mg Tablet PO BID PRN pain Labs CBC & Chem 7: 08/14/20 07:17 08/14/20 07:17 Labs: Laboratory Results - last 24 hr 08/13/20 08/13/20 08/13/20 10:09 11:40 16:56 WBC RBC Hgb Hct MCV MCH MCHC RDW Plt Count MPV Immature Gran % (Auto) Neut % (Auto) Lymph % (Auto) [place] % (Auto) Eos % (Auto) Baso % (Auto) Lymph # (Auto) [place] # (Auto) Eos # (Auto) Baso # (Auto) Abs Immat Gran (auto) Absolute Neuts (auto) Absolute Nucleated RBC Nucleated RBC % (auto) D-Dimer Cancelled < 200 VBG pH VBG pCO2 VBG pO2 VBG HCO3 VBG O2 Saturation VBG Base Excess Sodium Potassium Chloride Carbon Dioxide Anion Gap BUN Creatinine Estim Creat Clear Calc Estimated GFR POC Glucose Random Glucose Calcium Magnesium Troponin I High Sens 16.1 D B-Natriuretic Peptide 08/13/20 08/13/20 08/13/20 17:03 18:33 21:49 WBC RBC Hgb Hct MCV MCH MCHC RDW Plt Count MPV Immature Gran % (Auto) Neut % (Auto) Lymph % (Auto) [place] % (Auto) Eos % (Auto) Baso % (Auto) Lymph # (Auto) [place] # (Auto) Eos # (Auto) Baso # (Auto) Abs Immat Gran (auto) Absolute Neuts (auto) Absolute Nucleated RBC Nucleated RBC % (auto) D-Dimer VBG pH 7.40 VBG pCO2 45 VBG pO2 36 VBG HCO3 28 H VBG O2 Saturation 55.0 VBG Base Excess 3.2 Sodium Potassium Chloride Carbon Dioxide Anion Gap BUN Creatinine Estim Creat Clear Calc Estimated GFR POC Glucose 178 H 175 H Random Glucose Calcium Magnesium Troponin I High Sens B-Natriuretic Peptide 08/14/20 08/14/20 08/14/20 07:17 07:17 07:17 WBC 9.6 RBC 3.86 L Hgb 9.8 L Hct 32.2 L MCV 83.4 MCH 25.4 L MCHC 30.4 L RDW 15.9 Plt Count 200 MPV 10.2 Immature Gran % (Auto) 0.2 Neut % (Auto) 79.4 H Lymph % (Auto) 13.5 L [place] % (Auto) 6.7 Eos % (Auto) 0.1 Baso % (Auto) 0.1 Lymph # (Auto) 1.3 [place] # (Auto) 0.6 Eos # (Auto) 0.0 Baso # (Auto) 0.0 Abs Immat Gran (auto) 0.02 Absolute Neuts (auto) 7.6 Absolute Nucleated RBC 0.000 Nucleated RBC % (auto) 0.0 D-Dimer VBG pH VBG pCO2 VBG pO2 VBG HCO3 VBG O2 Saturation VBG Base Excess Sodium 140 Potassium 3.7 Chloride 105 Carbon Dioxide 28 Anion Gap 11 L BUN 15 Creatinine 0.74 Estim Creat Clear Calc 68.6 Estimated GFR > 60 POC Glucose Random Glucose 103 Calcium 8.8 Magnesium 2.5 Troponin I High Sens B-Natriuretic Peptide 771 H 08/14/20 08/14/20 08/14/20 07:22 08:44 11:32 WBC RBC Hgb Hct MCV MCH MCHC RDW Plt Count MPV Immature Gran % (Auto) Neut % (Auto) Lymph % (Auto) [place] % (Auto) Eos % (Auto) Baso % (Auto) Lymph # (Auto) [place] # (Auto) Eos # (Auto) Baso # (Auto) Abs Immat Gran (auto) Absolute Neuts (auto) Absolute Nucleated RBC Nucleated RBC % (auto) D-Dimer VBG pH 7.39 VBG pCO2 48 VBG pO2 44 VBG HCO3 29 H VBG O2 Saturation 72.0 VBG Base Excess 4.2 Sodium Potassium Chloride Carbon Dioxide Anion Gap BUN Creatinine Estim Creat Clear Calc Estimated GFR POC Glucose 103 118 H Random Glucose Calcium Magnesium Troponin I High Sens B-Natriuretic Peptide Assessment and Plan (1) Acute on chronic respiratory failure with hypoxemia: Status: Acute (2) Asthma with exacerbation: Status: Acute Assessment and Plan: hospital d#2 60 year-old woman with COPD/asthma, chronic hypoxic respiratory failure on 3L of home O2, HTN, NICM with last EF 30% 06/18/20, DM2, chronic anemia, and ongoing tobacco abuse presenting with fairly acute onset of dyspnea and wheezing, found to be hypoxic # acute/chronic hypoxic respiratory failure - supplemental O2 as tolerated, wean to home dose as tolerated # COPD/asthma exacerbation - methylprednisolone d#2, prn MARILYN/NIRMAL nebs; no ABX given lack of purulent sputum - continue LABA + LTRA # troponin indeterminate - suspect demand ischemia from above issues and underlying HFrEF; not having chest pain # NICM, chronic HFrEF - continue lisinopril + carvedilol. appears euvolemic. # DM2 - correction-dose lispro # HLD - atorvastatin # mood disorder - sertraline + quetiapine # VTE ppx - LMWH # dispo - anticipate home tomormrow
[2020-08-14 17:28] LABS: Glucose, Whole Blood 136 mg/dL (60-115)
[2020-08-14 20:19] LABS: Glucose, Whole Blood 160 mg/dL (60-115)
[2020-08-14] MEDS: Insulin Lispro 100 UNIT/ML 3 ML VIAL SUBCUT (20:51)
[2020-08-14] MEDS: Montelukast Sodium 10 MG TABLET PO (20:51)
[2020-08-14] MEDS: Atorvastatin Calcium 20 MG TABLET PO (20:51)
[2020-08-15 04:00] VITALS: BP 158/76; PULSE 73; RESP 18; TEMP 36.9; O2SAT 94
[2020-08-15] MEDS: Omeprazole 20 MG CAPSULE.DR PO (05:11)
[2020-08-15] MEDS: Albuterol/Iprat 2.5/0.5MG 3 ML AMPUL.NEB INHALE (05:18)
[2020-08-15 07:21] VITALS: BP 178/92; PULSE 73; RESP 17; TEMP 36.9; O2SAT 93
[2020-08-15] MEDS: Sertraline HCL 100 MG TABLET 200 MG PO (07:32)
[2020-08-15] MEDS: carvediloL 12.5 MG TABLET PO (07:32)
[2020-08-15] MEDS: traMADoL HCL 50 MG TABLET PO (07:32)
[2020-08-15] MEDS: Folic Acid 1 MG TABLET PO (07:32)
[2020-08-15] MEDS: QUEtiapine Fumarate 50 MG TABLET PO (07:32)
[2020-08-15] MEDS: methylPREDNISolone Sod Succ 40 MG/ML VIAL IVPUSH (07:32)
[2020-08-15] MEDS: lisinopriL 10 MG TABLET PO (07:33)
[2020-08-15 08:24] LABS: Glucose, Whole Blood 93 mg/dL (60-115)
[2020-08-15] MEDS: lisinopriL 20 MG TABLET PO (08:59)
--- NOTE | 2020-08-15 11:03 | P.DS_ITS ---
DS: Providers Provider Date of Service: 08/15/20 Date of admission: 08/13/20 14:37 Primary care physician: Analisa Chavez MD Consults: 08/14/20 09:28 Consult Respiratory Therapy Routine Reason for consultation: current smoker 5 per day. DS: Diagnosis Discharge Diagnosis (1) Acute on chronic respiratory failure with hypoxemia: Status: Acute (2) Asthma with exacerbation: Status: Acute (3) COPD exacerbation: Status: Acute (4) Tobacco abuse: Status: Acute (5) Essential hypertension: Status: Acute DS: Medications Discharge Medications Home Medications: Home Medications Medication Instructions Recorded Confirmed metformin 1 tab PO BID 03/08/20 07/26/20 montelukast 1 tab PO BEDTIME 03/08/20 08/13/20 omeprazole 20 mg PO DAILY@0630 03/08/20 08/13/20 quetiapine 1 tab PO BID 03/08/20 08/13/20 sertraline 2 tab PO DAILY 03/08/20 08/13/20 trazodone 50 - 100 mg PO BEDTIME PRN 03/08/20 08/13/20 simvastatin 40 mg tablet 40 mg PO BEDTIME 05/21/20 08/13/20 Previous Rx's Medication Instructions Recorded amlodipine 5 mg PO DAILY #30 tab 03/11/20 ipratropium 0.5 mg-albuterol 3 mg 1 ml INHALATION QID #360 ml 03/14/20 (2.5 mg base)/3 mL nebulization soln carvedilol 12.5 mg tablet 12.5 mg PO BID #60 tab 04/17/20 meclizine 25 mg tablet 25 mg PO TID PRN 30 Days #90 tab 05/10/20 tiotropium bromide 18 mcg capsule 1 cap INHALATION DAILY 30 Days #30 05/20/20 with inhalation device inh tramadol 50 mg tablet 50 mg PO BID PRN 30 Days #60 tab 05/21/20 folic acid 1 mg PO DAILY #90 tab 07/26/20 lisinopril 20 mg PO DAILY #30 tab 08/15/20 prednisone 40 mg PO DAILY #6 tab 08/15/20 DS: Summary Hospital Course Hospital Course: From my admission history and physical, 08/13/2020: History taken in Japanese from this 60 year-old woman with COPD/asthma, chronic hypoxic respiratory failure on 3L of home O2, HTN, NICM with last EF 30% 06/18/20, DM2, chronic anemia, and ongoing tobacco abuse who was last admitted to this hospital for status asthmaticus/COPD exacerbation requiring CPAP in the ICU 07/27-07/30/20. She presents today with a one-day history of worsening dyspnea and wheeze, along with chest tightness. She denies cough. She called EMS and was found to have SaO2 in the mid 80s despite 4L O2 via NC. Currently her SaO2 is 90 on 4L O2 via NC. She denies fever, chills, or sick contacts. She has not been vaccinated against COVID-19. In the ED, she was given 7.5mg of nebulized albuterol, 2g of IV magnesium sulfate, and 125mg of IV methylprednisolone. She states she feels better. She denies leg swelling. She does not have a history of DVT or PE. The patient was admitted to medical-surgical floor. She was treated with benjamin pplemental oxygen gradually wean back to her home level. She was treated with steroids and bronchodilators. There is no evidence of bacterial pneumonia. 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 The importance of stopping smoking and controlling her blood pressure was counseled. Time Spent with Patient Time attestation: Total time spent providing and/or coordinating discharge services: 35 Discharge coordination time: Greater than 30 minutes Physical Exam Vital Signs: Vital Signs: Last Vital Signs Temp 98.5 F 08/15/20 07:21 Pulse 73 08/15/20 07:21 Resp 17 08/15/20 07:21 BP 178/92 H 08/15/20 07:21 Pulse Ox 93 08/15/20 07:21 Body Mass Index 30.2 Gen: in no acute distress HEENT: sclera anicteric, moist mucus membranes Neck: supple Lungs: clear to auscultation bilaterally Heart: regular rate and rhythm, no murmurs Abd: soft, obese, non-tender, non-distended Ext: no edema Skin: warm/well-perfused Neuro: alert and oriented x3, no focal findings Psych: appropriate affect DS: Data Data Completed and Pending Completed studies during hospitalization [Text1]: Laboratory Results WBC 9.6 X10*3/uL (4.8-10.8) 08/14/20 07:17 RBC 3.86 X10*6/uL (4.20-5.50) L 08/14/20 07:17 Hgb 9.8 g/dl (12.0-16.0) L 08/14/20 07:17 Hct 32.2 % (37-47) L 08/14/20 07:17 MCV 83.4 fL (80-98) 08/14/20 07:17 MCH 25.4 pg (27.0-33.0) L 08/14/20 07:17 MCHC 30.4 g/dl (31.0-35.0) L 08/14/20 07:17 RDW 15.9 % (11.0-16.0) 08/14/20 07:17 Plt Count 200 X10*3/uL (160-400) 08/14/20 07:17 MPV 10.2 fL (9.4-12.3) 08/14/20 07:17 Immature Gran % (Auto) 0.2 % (0.0-0.4) 08/14/20 07:17 Neut % (Auto) 79.4 % (45-73) H 08/14/20 07:17 Lymph % (Auto) 13.5 % (20-40) L 08/14/20 07:17 [place] % (Auto) 6.7 % (2-11) 08/14/20 07:17 Eos % (Auto) 0.1 % (0-4) 08/14/20 07:17 Baso % (Auto) 0.1 % (0-2) 08/14/20 07:17 Lymph # (Auto) 1.3 X10*3/uL (1.2-4.9) 08/14/20 07:17 [place] # (Auto) 0.6 X10*3/uL (0.1-1.2) 08/14/20 07:17 Eos # (Auto) 0.0 X10*3/uL (0.0-0.4) 08/14/20 07:17 Baso # (Auto) 0.0 X10*3/uL (0.0-0.2) 08/14/20 07:17 Abs Immat Gran (auto) 0.02 X10*3/uL (0.00-0.03) 08/14/20 07:17 Absolute Neuts (auto) 7.6 X10*3/uL (2.0-8.3) 08/14/20 07:17 Absolute Nucleated RBC 0.000 X10*3/uL (0.0-0.012) 08/14/20 07:17 Nucleated RBC % (auto) 0.0 /100WBC (0.0-0.2) 08/14/20 07:17 D-Dimer < 200 NG/ML 08/13/20 11:40 Hold Blue Top SEE NOTE 08/13/20 11:40 VBG pH 7.39 (7.32-7.43) 08/14/20 07:22 VBG pCO2 48 mmHg 08/14/20 07:22 VBG pO2 44 mmHg 08/14/20 07:22 VBG HCO3 29 mmol/L (22-26) H 08/14/20 07:22 VBG O2 Saturation 72.0 % 08/14/20 07:22 VBG Base Excess 4.2 mmol/L 08/14/20 07:22 Sodium 140 mmol/L (135-145) 08/14/20 07:17 Potassium 3.7 mmol/L (3.3-5.1) 08/14/20 07:17 Chloride 105 mmol/L (96-108) 08/14/20 07:17 Carbon Dioxide 28 mmol/L (22-29) 08/14/20 07:17 Anion Gap 11 (12-20) L 08/14/20 07:17 BUN 15 mg/dL (9-16) 08/14/20 07:17 Creatinine 0.74 mg/dL (0.5-1.4) 08/14/20 07:17 Estim Creat Clear Calc 68.6 08/14/20 07:17 Estimated GFR > 60 08/14/20 07:17 POC Glucose 93 mg/dL (60-115) 08/15/20 07:25 Random Glucose 103 mg/dL (60-115) 08/14/20 07:17 Calcium 8.8 mg/dL (8.4-10.2) 08/14/20 07:17 Magnesium 2.5 mg/dL (1.6-2.6) 08/14/20 07:17 Total Bilirubin 0.3 mg/dL (0.0-1.0) 08/13/20 10:09 Direct Bilirubin < 0.2 mg/dL (0.0-0.5) 08/13/20 10:09 AST 16 U/L (5-31) 08/13/20 10:09 ALT 14 U/L (0-31) 08/13/20 10:09 Alkaline Phosphatase 144 U/L (39-117) H 08/13/20 10:09 Troponin I High Sens 16.1 ng/L (<3.5-17.0) D 08/13/20 16:56 B-Natriuretic Peptide 771 pg/mL (<100) H 08/14/20 07:17 Total Protein 6.9 g/dL (6.5-8.0) 08/13/20 10:09 Albumin 3.9 g/dL (3.5-5.0) 08/13/20 10:09 Procalcitonin 0.02 ng/mL 08/13/20 10:09 COVID-19 (ANEL) Negative (Negative) 08/13/20 11:40 COVID-19 Clin Com See Note 08/13/20 11:40 Impressions Chest X-Ray 08/13/20 09:52 IMPRESSION: Emphysematous change. Chronic basilar lung disease with no definite new confluent region of disease appreciated. Cardiomegaly without pulmonary edema. Discharge Plan Discharge Patient Disposition: Home Health Service Discharge Diagnosis: acute/chronic hypoxia, asthma/COPD exacerbation Referrals: Analisa Carr MD [Primary Care Provider] - 1 Week Discharge Medications: New prednisone 20 mg tablet 40 mg PO DAILY Qty: 6 RF: 0 Continued ipratropium-albuterol 0.5 mg-3 mg(2.5 mg base)/3 mL solution for nebulization 1 ml inhalation QID Qty: 360 RF: 6 carvedilol 12.5 mg tablet 12.5 mg PO BID Qty: 60 RF: 3 meclizine 25 mg tablet 25 mg PO TID PRN (Reason: dizziness) 30 Days Qty: 90 RF: 3 tiotropium bromide [Spiriva with HandiHaler] 18 mcg capsule, w/inhalation device 1 cap inhalation DAILY 30 Days Qty: 30 RF: 5 lisinopril 20 mg Tablet 20 mg PO DAILY Qty: 30 RF: 0 omeprazole 20 mg capsule,delayed release(DR/EC) 20 mg PO DAILY@0630 RF: 0 trazodone 50 mg tablet 50 - 100 mg PO BEDTIME PRN (Reason: Sleep) RF: 0 sertraline 100 mg tablet 2 tab PO DAILY RF: 0 metformin 1,000 mg tablet 1 tab PO BID RF: 0 montelukast 10 mg tablet 1 tab PO BEDTIME RF: 0 quetiapine 50 mg tablet 1 tab PO BID RF: 0 amlodipine 5 mg Tablet 5 mg PO DAILY Qty: 30 RF: 0 folic acid 1 mg Tablet 1 mg PO DAILY Qty: 90 RF: 4 simvastatin 40 mg tablet 40 mg PO BEDTIME RF: 0 tramadol 50 mg tablet 50 mg PO BID PRN (Reason: pain) 30 Days Qty: 60 RF: 0 Discharge Orders: Discharge Order (Routine); Ordered 08/15/20 Ordered By: Ashutosh Card Diet: diabetic diet and low salt diet Activity on Discharge: As tolerated Stand Alone Forms: Patient Portal Discharge page Care Plan Goals: improvement in breathing avoid hospitalization Health Concerns: hypoxia COPD/asthma Plan of Treatment: continue home oxygen 3L via nasal cannula take prednisone 40 mg daily for 3 days follow up with your primary care doctor [Dr Luzt] in 1 week and your 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
--- NOTE | 2020-08-15 11:19 | MHC.CM.PN ---
nurse manager wound care note electronic medical record reviewed along with case discussed with staff nurse and hospitlaist . 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
[2020-08-15 11:28] VITALS: BP 172/94; PULSE 74; RESP 19; TEMP 36.5; O2SAT 93
--- NOTE | 2020-08-15 11:33 | W.MHC.F2F ---
Service Date Service Date: 08/15/20 Encounter Date of encounter: 08/15/20 Reasons for Services Signs and symptoms assessed: HTN breathing Reason for penitentiary: medication management Reason for physical therapy: home safety and mobility, therapeutic exercises, gait/transfer training, assess need for DME, ADL training and energy conservation Overseeing Care: Analisa Chavez Homebound: Leaving the home is medically contraindicated at this time without the asist of a device and/or another person due th the listed conditions above and below. Homebound supporting statement: This patient was admitted to [facility] – [place], [place] 08/13-08/15/20 for recurrent asthma/COPD exacerbation. Certification: Based on the above findings, I certify that this patient is confined to the home and needs intermittent penitentiary care, physical therapy and/or speech therapy, or continues to need occupational therapy. The patient is under my care, and I have initiated the establishment of the plan of care. The patient will be followed by a physician who will periodically review the plan of care.
[2020-08-15 12:36] LABS: Glucose, Whole Blood 159 mg/dL (60-115)
== END 2020-08-15 14:59 | disposition home health service (06) | DRG 140 ==
LOC: HO.ED 12:31 → HO.EDOVER 14:47 → HO.S3 08-14 07:07
PROVIDERS: Admitting Provider Family Medicine; Emergency Provider Emergency Medicine; PCP Internal Medicine; Visit Provider Family Medicine
DX: J44.1 Chronic obstructive pulmonary disease with (acute) exacerbation (principal); J96.21 Acute and chronic respiratory failure with hypoxia; I42.8 Other cardiomyopathies; J45.41 Moderate persistent asthma with (acute) exacerbation; I50.22 Chronic systolic (congestive) heart failure; Z99.81 Dependence on supplemental oxygen; E78.5 Hyperlipidemia, unspecified; F17.210 Nicotine dependence, cigarettes, uncomplicated; Z20.822 Contact with and (suspected) exposure to COVID-19; Z71.6 Tobacco abuse counseling; Z79.899 Other long term (current) drug therapy
CPT/HCPCS: 36415; 71045; 80048; 80076; 82947; 83735; 83880; 84145; 84484; 85025; 85379; 87635; 93005; 94640; 94644; 96365; 96375; 99284; 99291; J1650; J2920; J2930; J3475

== ENCOUNTER 2020-10-09 10:01 | Inpatient (IN) | payer OTHER, SELFPAY ==
[2020-10-09] VITALS (12 sets, daily range): BP systolic 172–209; BP diastolic 86–143; PULSE 80–110; RESP 16–25; TEMP 36.5–36.9; O2SAT 91–98; BMI 27.6
--- NOTE | ~2020-10-09 | XR_ITS ---
EXAMINATION: XR CHEST CLINICAL INFORMATION: Difficulty breathing. COMPARISON: Previous chest CT August 2019 and previous chest x-rays most recent August 2020 TECHNIQUE: Frontal view of the chest was obtained. FINDINGS: The cardiac silhouette is enlarged but stable. Hilar and mediastinal contours are unremarkable. There are increased lung markings seen at the lung bases. When compared with previous CT scan August 2019 this is likely related to upper lobe emphysematous change and crowding of lung markings at the lung bases. The lungs are otherwise clear. There is no pleural effusion or pneumothorax. There may be curvature of the lower thoracic and upper lumbar spine to the right. No acute bone abnormality is seen XR/XR chest 1V IMPRESSION: Stable enlargement of the cardiac silhouette. Upper lobe emphysematous changes. No evidence for acute disease in the chest.
--- NOTE | 2020-10-09 10:02 | ECG_ITS ---
Test Reason : DYSPNEA Blood Pressure : / mmHG Vent. Rate : 092 BPM Atrial Rate : 092 BPM P-R Int : 138 ms QRS Dur : 134 ms QT Int : 420 ms P-R-T Axes : 042 016 -03 degrees QTc Int : 519 ms Normal sinus rhythm with sinus arrhythmia Right bundle branch block Abnormal ECG When compared with ECG of 13-AUG-2020 10:32, Right bundle branch block has replaced Non-specific intra-ventricular conduction delay Referred By: Rebecca Trinidad Electronically Signed By:KEVIN ODELL MD
--- NOTE | 2020-10-09 10:16 | ED.SOB ---
HPI - SOB/Dyspnea General Chief Complaint: Dyspnea Stated Complaint: DIFF BREATHING Time Seen by Provider: 10/09/20 10:02 Source: patient and EMS Mode of arrival: EMS Limitations: no limitations History of Present Illness HPI Narrative: 60 y/o female with history of COPD on 3L NC, CHF w/ EF 30%, DM2, HTN, KELLIE noncompliant with CPAP, mitral regurgitation, depression/anxiety who presents to the ED from home via EMS with SOB that started last week. She states yesterday it got acutely worse. She has been compliant with her inhalers and her oxygen. Her breathing has been getting progressively worse, especially with any exertion. She lives home alone and was being stubborn because I didn't want to come to the hospital. She denies fevers, chills, cough, chest pain, phlegm, abdominal pain, N/V/D. She has never had COVID and she has not gotten any vaccinations as of her. On EMS arrival patient was hypoxic to 81% with very diminished breath sounds and increased WOB. She was placed on 100% NRB, given Solumedrol, magnesium, and Duoneb en route. She develop upper lobe wheezing and WOB persisted. MD elicited complaint: shortness of breath Pertinent past history: COPD, congestive heart failure and diabetes Onset (ago): week(s) (1) Timing: constant Severity: similar to previous episodes Exacerbating factors: lying flat and exertion Relieving factors: oxygen, rest and upright position Known history of: COPD, congestive heart failure and diabetes Associated symptoms: wheezing and orthopnea Treatment prior to arrival: oxygen and bronchodilator Related Data Home oxygen amount: 3 liters Home Medications Medication Instructions Recorded Confirmed omeprazole 20 mg PO DAILY@0630 03/08/20 10/09/20 sertraline 200 mg PO DAILY 03/08/20 10/09/20 trazodone 50 - 100 mg PO BEDTIME PRN 03/08/20 10/09/20 amlodipine 5 mg PO DAILY 10/09/20 10/09/20 carvedilol 1 tab PO BID 10/09/20 10/09/20 ipratropium-albuterol 1 vial INHALATION QID 10/09/20 10/09/20 quetiapine 1 tab PO BID 10/09/20 10/09/20 simvastatin 1 tab PO BEDTIME 10/09/20 10/09/20 Previous Rx's Medication Instructions Recorded meclizine 25 mg tablet 25 mg PO TID PRN 30 Days #90 tab 05/10/20 tiotropium bromide 18 mcg capsule 1 cap INHALATION DAILY 30 Days #30 05/20/20 with inhalation device inh folic acid 1 mg PO DAILY #90 tab 07/26/20 lisinopril 20 mg PO DAILY #30 tab 08/15/20 montelukast 10 mg tablet 10 mg PO BEDTIME #30 tab 08/27/20 prednisone 5 mg tablet 5 mg PO DAILY 30 Days #30 tab 10/07/20 Allergies Allergy/AdvReac Type Severity Reaction Status Date / Time nicotine [Nicotine] Allergy Unknown ITCHING Verified 05/21/20 10:40 WITH THE PATCHES topiramate Allergy Unknown inadequealte Verified 05/21/20 10:40 response Review of Systems Review of Systems: Constitutional: No Fever, No Chills ENT/Mouth: No sore throat, No Rhinorrhea, No Swallowing Difficulty Eyes: No Eye Pain, No Swelling, No Redness Cardiovascular: No Chest Pain, + SOB, + Orthopnea, No Edema Respiratory: No Cough, No Sputum, + Wheezing, + dyspnea Gastrointestinal: No Nausea, No Vomiting, No Diarrhea, No abdominal Pain, No Hematochezia, No Melena Genitourinary: No Dysuria, No Urinary Frequency, No Hematuria Musculoskeletal: No joint pain, No Myalgias Skin: No Skin Lesions, No rash Neuro: No Weakness, No Numbness, No Dizziness, No Headache Psych: No Anxiety/Panic, No Depression Heme/Lymph: No Bruising, No Lymphadenopathy Endocrine: No Polyuria, No Polydipsia [facility] Past Medical History Attestation statement: The following information was validated with the patient. Medical History Acute and chronic respiratory failure with hypoxia Acute exacerbation of chronic obstructive pulmonary disease Acute on chronic respiratory failure with hypoxemia Anemia Anxiety Cardiomyopathy Chronic respiratory failure COPD (chronic obstructive pulmonary disease) COPD exacerbation Depression Diabetes HFrEF (heart failure with reduced ejection fraction) HLD (hyperlipidemia) HTN (hypertension) Low back pain Mitral regurgitation Normocytic anemia KELLIE (obstructive sleep apnea) Postmenopausal Respiratory failure, acute Severe chronic obstructive pulmonary disease Supplemental oxygen dependent Surgical History Bilateral ankle fractures History of total abdominal hysterectomy Family History Family History Father No problems noted. Mother Liver cancer Hypertension Social History Social History Household Members: None Housing: Apartment Do you presently have visiting nurse or other home services: Yes ([employer] 1 hour each day) Alcohol intake: never Cigarette Packs Per Day: 1 Cigarettes Per Day: 5 Smoked in Last 30 Days: No Second Hand Smoke Exposure: No Use of substances other than those prescribed or required for medical reasons: No Advance Directives: No Advance Directives Information Provided: No Advance Directives Date on File: 04/30/20 service: No Current occupational status: disabled Physical Exam Vital Signs: Vital Signs: Last Vital Signs Temp 98.0 F 10/09/20 10:09 Pulse 91 10/09/20 10:48 Resp 25 H 10/09/20 10:09 BP 197/123 H 10/09/20 10:09 Pulse Ox 94 10/09/20 10:09 Oxygen Flow Rate 4 10/09/20 10:09 Body Mass Index 27.6 Appearance: Alert. Oriented X3. No acute distress. Eyes: Pupils equal, round and reactive to light. ENT: Pharynx normal. Neck: Normal inspection. Neck supple. CVS: Tachycardic, regular rhythm. Pulses normal. Respiratory: Mild respiratory distress with accessory muscle use. Breath sounds with rales to middle lung wiseman bilaterally, diminished in the apices. Able to speak in 5-6 word sentences. Abdomen: Soft and nontender. +BS x4 Skin: Skin warm and dry. Normal skin color. Normal skin turgor. No rashes. Extremities: No lower extremity edema. Negative Mendez's sign. Neuro: Oriented X 3. No motor deficit. No sensory deficit. Course Course Course Narrative: 60 y/o female with multiple comorbidities including O2 dependent COPD and HFrEF 30% presenting with SOB. Rales and wheezes on exam. RR 20s and SBP 190s on arrival. No fever. No evidence of severe sepsis at this time. Will give IV lasix for probable CHF exacerbation. Doubt PE given physical exam findings. CXR, EKG, COVID and labs ordered. Will hold off on CPAP for now, her WOB is improving. Speaking in complete sentences with some dyspnea in between. Anticipate admission to the hospital. Reevaluation(s) Reevaluation #1: CXR with emphysematous changes, no acute disease. BNP 800s. Troponin 27 without any changes on EKG from prior. WOB has improved. She has urinated 2x after lasix. No leukocytosis or fevers to suggest sepsis. When taken off O2 and brought to bedside commode she had immediate increased WOB, took a few minutes to recover. Placed back on monitor and pulse ox. [place] ordered for accurate I/O but patient is refusing. Reevaluation #2: Increased to 50% VM withSpO2 94-95%. TT hospitalist for admission for acute on chronic hypoxic respiratory failure, likely multifactorial due to COPD and CHF exacerbations. MDM - SOB/Dyspnea Differential Diagnosis Differential diagnosis: Likely acute exacerbation of chronic obstructive airways disease, congestive heart failure, pneumonia, asthma with exacerbation, pleural effusion, sleep apnea and anemia Medical Records Attestation: I reviewed the patient's medical records. Lab Data Attestation: I reviewed the patient's lab results. Result diagrams: 10/09/20 11:06 10/09/20 10:56 Labs: Lab Results 10/09/20 10/09/20 10/09/20 Range/Units 10:56 10:56 10:56 WBC (4.8-10.8) X10*3/uL RBC (4.20-5.50) X10*6/uL Hgb (12.0-16.0) g/dl Hct (37-47) % MCV (80-98) fL MCH (27.0-33.0) pg MCHC (31.0-35.0) g/dl RDW (11.0-16.0) % Plt Count (160-400) X10*3/uL MPV (9.4-12.3) fL Immature Gran % (Auto) (0.0-0.4) % Neut % (Auto) (45-73) % Lymph % (Auto) (20-40) % [place] % (Auto) (2-11) % Eos % (Auto) (0-4) % Baso % (Auto) (0-2) % Lymph # (Auto) (1.2-4.9) X10*3/uL [place] # (Auto) (0.1-1.2) X10*3/uL Eos # (Auto) (0.0-0.4) X10*3/uL Baso # (Auto) (0.0-0.2) X10*3/uL Abs Immat Gran (auto) (0.00-0.03) X10*3/uL Absolute Neuts (auto) (2.0-8.3) X10*3/uL Absolute Nucleated RBC (0.0-0.012) X10*3/uL Nucleated RBC % (auto) (0.0-0.2) /100WBC Hold Blue Top SEE NOTE Sodium 140 (135-145) mmol/L Potassium 3.4 (3.3-5.1) mmol/L Chloride 104 (96-108) mmol/L Carbon Dioxide 25 (22-29) mmol/L Anion Gap 14 (12-20) BUN 10 (9-16) mg/dL Creatinine 0.76 (0.5-1.4) mg/dL Estim Creat Clear Calc 77.9 Estimated GFR > 60 Random Glucose 165 H D (60-115) mg/dL Lactic Acid (0.5-2.0) mmol/L Calcium 9.2 (8.4-10.2) mg/dL Magnesium 3.1 H (1.6-2.6) mg/dL Total Bilirubin 0.7 (0.0-1.0) mg/dL Direct Bilirubin 0.2 (0.0-0.5) mg/dL AST 17 (5-31) U/L ALT 9 (0-31) U/L Alkaline Phosphatase 152 H (39-117) U/L Troponin I High Sens (<3.5-17.0) ng/L B-Natriuretic Peptide (<100) pg/mL Total Protein 7.7 (6.5-8.0) g/dL Albumin 4.4 (3.5-5.0) g/dL Procalcitonin ng/mL Urine Color Urine Appearance Urine pH (5.0-8.0) Ur Specific [place] (1.005-1.025) Urine Protein (NEG-TRACE) MG/DL Urine Glucose (UA) (NEG) MG/DL Urine Ketones (NEG) MG/DL Urine Blood (NEG) Urine Nitrite (NEG) Ur Leukocyte Esterase (NEG) Urine RBC (0) /HPF Urine WBC (0-4) /HPF Ur Squamous Epith Cells /LPF Urine Bacteria /LPF 10/09/20 10/09/20 10/09/20 Range/Units 10:56 11:06 11:06 WBC 8.7 (4.8-10.8) X10*3/uL RBC 4.59 (4.20-5.50) X10*6/uL Hgb 11.1 L (12.0-16.0) g/dl Hct 37.2 (37-47) % MCV 81.0 (80-98) fL MCH 24.2 L (27.0-33.0) pg MCHC 29.8 L (31.0-35.0) g/dl RDW 15.3 (11.0-16.0) % Plt Count 195 (160-400) X10*3/uL MPV 10.3 (9.4-12.3) fL Immature Gran % (Auto) 0.2 (0.0-0.4) % Neut % (Auto) 87.6 H (45-73) % Lymph % (Auto) 10.3 L (20-40) % [place] % (Auto) 1.6 L (2-11) % Eos % (Auto) 0.2 (0-4) % Baso % (Auto) 0.1 (0-2) % Lymph # (Auto) 0.9 L (1.2-4.9) X10*3/uL [place] # (Auto) 0.1 (0.1-1.2) X10*3/uL Eos # (Auto) 0.0 (0.0-0.4) X10*3/uL Baso # (Auto) 0.0 (0.0-0.2) X10*3/uL Abs Immat Gran (auto) 0.02 (0.00-0.03) X10*3/uL Absolute Neuts (auto) 7.6 (2.0-8.3) X10*3/uL Absolute Nucleated RBC 0.000 (0.0-0.012) X10*3/uL Nucleated RBC % (auto) 0.0 (0.0-0.2) /100WBC Hold Blue Top Sodium (135-145) mmol/L Potassium (3.3-5.1) mmol/L Chloride (96-108) mmol/L Carbon Dioxide (22-29) mmol/L Anion Gap (12-20) BUN (9-16) mg/dL Creatinine (0.5-1.4) mg/dL Estim Creat Clear Calc Estimated GFR Random Glucose (60-115) mg/dL Lactic Acid 1.8 (0.5-2.0) mmol/L Calcium (8.4-10.2) mg/dL Magnesium (1.6-2.6) mg/dL Total Bilirubin (0.0-1.0) mg/dL Direct Bilirubin (0.0-0.5) mg/dL AST (5-31) U/L ALT (0-31) U/L Alkaline Phosphatase (39-117) U/L Troponin I High Sens (<3.5-17.0) ng/L B-Natriuretic Peptide (<100) pg/mL Total Protein (6.5-8.0) g/dL Albumin (3.5-5.0) g/dL Procalcitonin 0.02 ng/mL Urine Color Urine Appearance Urine pH (5.0-8.0) Ur Specific [place] (1.005-1.025) Urine Protein (NEG-TRACE) MG/DL Urine Glucose (UA) (NEG) MG/DL Urine Ketones (NEG) MG/DL Urine Blood (NEG) Urine Nitrite (NEG) Ur Leukocyte Esterase (NEG) Urine RBC (0) /HPF Urine WBC (0-4) /HPF Ur Squamous Epith Cells /LPF Urine Bacteria /LPF 10/09/20 10/09/20 Range/Units 11:06 11:08 WBC (4.8-10.8) X10*3/uL RBC (4.20-5.50) X10*6/uL Hgb (12.0-16.0) g/dl Hct (37-47) % MCV (80-98) fL MCH (27.0-33.0) pg MCHC (31.0-35.0) g/dl RDW (11.0-16.0) % Plt Count (160-400) X10*3/uL MPV (9.4-12.3) fL Immature Gran % (Auto) (0.0-0.4) % Neut % (Auto) (45-73) % Lymph % (Auto) (20-40) % [place] % (Auto) (2-11) % Eos % (Auto) (0-4) % Baso % (Auto) (0-2) % Lymph # (Auto) (1.2-4.9) X10*3/uL [place] # (Auto) (0.1-1.2) X10*3/uL Eos # (Auto) (0.0-0.4) X10*3/uL Baso # (Auto) (0.0-0.2) X10*3/uL Abs Immat Gran (auto) (0.00-0.03) X10*3/uL Absolute Neuts (auto) (2.0-8.3) X10*3/uL Absolute Nucleated RBC (0.0-0.012) X10*3/uL Nucleated RBC % (auto) (0.0-0.2) /100WBC Hold Blue Top Sodium (135-145) mmol/L Potassium (3.3-5.1) mmol/L Chloride (96-108) mmol/L Carbon Dioxide (22-29) mmol/L Anion Gap (12-20) BUN (9-16) mg/dL Creatinine (0.5-1.4) mg/dL Estim Creat Clear Calc Estimated GFR Random Glucose (60-115) mg/dL Lactic Acid (0.5-2.0) mmol/L Calcium (8.4-10.2) mg/dL Magnesium (1.6-2.6) mg/dL Total Bilirubin (0.0-1.0) mg/dL Direct Bilirubin (0.0-0.5) mg/dL AST (5-31) U/L ALT (0-31) U/L Alkaline Phosphatase (39-117) U/L Troponin I High Sens 27.9 H* (<3.5-17.0) ng/L B-Natriuretic Peptide 822 H (<100) pg/mL Total Protein (6.5-8.0) g/dL Albumin (3.5-5.0) g/dL Procalcitonin ng/mL Urine Color STRAW Urine Appearance CLEAR Urine pH 6.0 (5.0-8.0) Ur Specific [place] 1.010 (1.005-1.025) Urine Protein NEG (NEG-TRACE) MG/DL Urine Glucose (UA) NEG (NEG) MG/DL Urine Ketones NEG (NEG) MG/DL Urine Blood NEG (NEG) Urine Nitrite NEG (NEG) Ur Leukocyte Esterase TRACE H (NEG) Urine RBC 1-4 (0) /HPF Urine WBC 1-4 (0-4) /HPF Ur Squamous Epith Cells NONE /LPF Urine Bacteria NONE /LPF ECG Data Attestation: I personally reviewed and interpreted this ECG as follows: ECG interpretation date: 10/09/20 ECG interpretation time: 13:17 Critical Care Time Critical Care Time Critical Care Time: Yes Total Critical Care Time: 46 Attestation: I attest to critical care time spent caring for this patient with acute on chronic hypoxic resp failure, resp distress requiring interventions to prevent further deterioration, close cardiopulmonary monitoring and requesting bedside reassessments. time spent at the bedside, review records, imaging and coordinating care. Discharge Plan Discharge Clinical Impression: Acute and chronic respiratory failure with hypoxia Congestive heart failure Qualifiers: Heart failure type: systolic Heart failure chronicity: acute on chronic Qualified Code(s): I50.23 - Acute on chronic systolic (congestive) heart failure Patient Disposition: Admitted As Inpatient
[2020-10-09] MEDS: Furosemide 40 MG/4 ML VIAL IVPUSH (10:23)
[2020-10-09] MEDS: Albuterol/Iprat 2.5/0.5MG 3 ML AMPUL.NEB INHALE ×2 (10:40→19:56)
--- NOTE | 2020-10-09 10:47 | PHA.MEDREC ---
Pharmacy Consult ? Medication Reconciliation Pharmacy has completed the medication reconciliation and there were no significant medication issues requiring provider attention. [facility] report shows most of the medications but there was recent fills of sertraline, omeprazole, and montelukast at an outpatient pharmacy. Rebecca Amanda, PharmD [phone]
[2020-10-09 11:15] LABS: MANUAL DIFF FLAG NO
[2020-10-09 11:16] LABS: Basophils Percent Auto 0.1 % (0-2); Eosinophils Percent Auto 0.2 % (0-4); Hematocrit 37.2 % (37-47); Hemoglobin 11.1 g/dl (12.0-16.0); Imm Gran Abs Auto 0.02 X10*3/uL (0.00-0.03); Imm Gran Pct Auto 0.2 % (0.0-0.4); Lymphocytes Absolute Auto 0.9 X10*3/uL (1.2-4.9); Lymphocytes Percent Auto 10.3 % (20-40); Mean Corpuscular HGB Conc 29.8 g/dl (31.0-35.0); Mean Corpuscular Hemoglobin 24.2 pg (27.0-33.0); Mean Platelet Volume 10.3 fL (9.4-12.3); Monocytes Absolute Auto 0.1 X10*3/uL (0.1-1.2); Monocytes Percent Auto 1.6 % (2-11); Neutrophils Absolute Auto 7.6 X10*3/uL (2.0-8.3); Neutrophils Percent Auto 87.6 % (45-73); Platelet Count 195 X10*3/uL (160-400); Red Blood Count 4.59 X10*6/uL (4.20-5.50); Red Cell Distribution Width 15.3 % (11.0-16.0); White Blood Count 8.7 X10*3/uL (4.8-10.8)
[2020-10-09 11:17] LABS: Glucose Urine UA NEG (NEG); Leukocyte Esterase Urine TRACE (NEG); Nitrite Urine NEG (NEG); UACC Culture Trigger YES; Urine Blood NEG (NEG); Urine Ketones NEG (NEG); Urine Protein NEG (NEG-TRACE)
[2020-10-09 11:22] LABS: Appearance Urine CLEAR; Color Urine STRAW
[2020-10-09 11:36] LABS: Lactic Acid 1.8 mmol/L (0.5-2.0)
[2020-10-09 11:54] LABS: Anion Gap 14 (12-20); Blood Urea Nitrogen 10 mg/dL (9-16); Calcium 9.2 mg/dL (8.4-10.2); Carbon Dioxide 25 mmol/L (22-29); Chloride 104 mmol/L (96-108); Creatinine Clr Calc Pharmacy 77.9; Estimated Glomerular Filt Rate > 60; Glucose Random 165 mg/dL (60-115); Potassium 3.4 mmol/L (3.3-5.1); Sodium 140 mmol/L (135-145)
[2020-10-09 11:57] LABS: Alanine Aminotransferase 9 U/L (0-31); Albumin Level 4.4 g/dL (3.5-5.0); Alkaline Phosphatase 152 U/L (39-117); Aspartate Amino Transferase 17 U/L (5-31); Bilirubin Direct 0.2 mg/dL (0.0-0.5); Bilirubin Total 0.7 mg/dL (0.0-1.0); Magnesium 3.1 mg/dL (1.6-2.6); Total Protein 7.7 g/dL (6.5-8.0)
[2020-10-09 11:57] LABS: B Type Natriuretic Peptide 822 pg/mL (<100); Troponin-I High Sensitivity 27.9 ng/L (<3.5-17.0)
[2020-10-09 12:01] LABS: Procalcitonin 0.02 ng/mL
--- NOTE | 2020-10-09 13:38 | PC.NURSE ---
late entry: pt was placed on a venti mask 40% approx 1 hr ago with gradual o2 sat improvement to 95%, after maintaining o2 at 84% on 4l nc.
[2020-10-09 13:39] LABS: COVID-19 Test Negative (Negative)
[2020-10-09] MEDS: Labetalol HCL 100 MG/20 ML VIAL 10 MG IVPUSH (13:50)
[2020-10-09 13:52] LABS: Troponin-I High Sensitivity 58.1 ng/L (<3.5-17.0)
--- NOTE | 2020-10-09 14:33 | P.HPHOSP_ITS ---
History of Present Illness Date of Service: 10/09/20 Chief Complaint: Shortness of breath 60 y/o female with history of chronic respiratory failure due COPD on home O2 at 3L via [place], chronic systolic CHF w/ EF 30%, DM2, HTN, KELLIE noncompliant with CPAP, mitral regurgitation, depression/anxiety and active smoke and chronic anemia. She presents to ED today via EMS because progressive shortenss of breath for weeks, and worse the last 24 hours. At baseline she is not all active, she she has no lege edema, no fever or cough, she is not yet vaccinated for covid. EMS documented oxygen saturation of 81 on oxygen and sounded very diminished. CXR in ED show stable exam. BNP level is around 822, sligtly higher than last dose. Her troponin has risen from 27 to 58, ECG shows no acute ischemic changes. BP is now 191/121, she says she has taken all her meds. She is treated with NRB, IV lasix, IV solumedrol and breathing treatment by [facility]. Review of Systems Review of Systems: Gen: no fever Resp: +sob, no cough CV: no chest, + [place], no leg edema GI: No n/v, no abd pain Neuro: No confusion Yes all other systems are reviewed and are negative [facility] Medical History Acute and chronic respiratory failure with hypoxia Acute exacerbation of chronic obstructive pulmonary disease Acute on chronic respiratory failure with hypoxemia Anemia Anxiety Cardiomyopathy Chronic respiratory failure COPD (chronic obstructive pulmonary disease) COPD exacerbation Depression Diabetes HFrEF (heart failure with reduced ejection fraction) HLD (hyperlipidemia) HTN (hypertension) Low back pain Mitral regurgitation Normocytic anemia KELLIE (obstructive sleep apnea) Postmenopausal Respiratory failure, acute Severe chronic obstructive pulmonary disease Supplemental oxygen dependent Family History Father No problems noted. Mother Liver cancer Hypertension Surgical History Bilateral ankle fractures History of total abdominal hysterectomy Social History Household Members: None Housing: Apartment Do you presently have visiting nurse or other home services: No Alcohol intake: never Patient Tobacco Use Status: Current everyday Tobacco user Tobacco use type: Cigarette Cigarette Packs Per Day: 1 Cigarettes Per Day: 6 Smoked in Last 30 Days: Yes Patient Interested in Nicotine Replacement: No Patient Given Instructions on How to Stop Smoking: No Second Hand Smoke Exposure: No Use of substances other than those prescribed or required for medical reasons: No Have you been hit, kicked, punched, or otherwise hurt by someone within the past year? If so, by whom?: No Do you feel safe in your current relationship?: No Current Relationship Is there a partner from a previous relationship who is making you feel unsafe now?: No Are you made to feel afraid or neglected: No Advance Directives: No Advance Directives Information Provided: No Advance Directives Date on File: 04/30/20 Do you have thoughts of harming others: None Do you have a plan to hurt others: No Plan Recently lost weight without trying: Yes How much weight loss: 2-13 pounds Patient : No : No Poor oral hygiene: No service: No Current occupational status: disabled Meds Allergies Allergy/AdvReac Type Severity Reaction Status Date / Time nicotine [Nicotine] Allergy Unknown ITCHING Verified 05/21/20 10:40 WITH THE PATCHES topiramate Allergy Unknown inadequealte Verified 05/21/20 10:40 response Active Medications: Current Medications Generic Name Dose Route Start Last Admin Trade Name Freq PRN Reason Stop Dose Admin Acetaminophen 650 mg 10/09/20 14:22 Acetaminophen Supp 650 Mg Supp.Rect MN Q6H PRN Pain, Mild (Pain Scale 1-3) Enoxaparin Sodium 40 mg 10/09/20 14:30 Enoxaparin Sodium 40 Mg/0.4 Ml Syringe SUBCUT Q24H WALDEMAR Magnesium Hydroxide 30 ml 10/09/20 14:22 Milk Of Magnesia 30 Ml Oral.Susp PO DAILY PRN Constipation Pharmacy Consult 1 each 10/09/20 10:11 Consult Rx Perform Med Rec MISCELLANE ONCE PRN Consult order Sodium Chloride 3 ml 10/09/20 16:00 0.9 % Sodium Chloride Flush 3 Ml Syringe IVFLUSH QSHIFT [facility] Home Medications Medication Instructions Recorded Confirmed Last Taken Type omeprazole 20 mg PO DAILY@0630 03/08/20 10/09/20 05/12/20 History sertraline 200 mg PO DAILY 03/08/20 10/09/20 05/12/20 History trazodone 50 - 100 mg PO BEDTIME PRN 03/08/20 10/09/20 05/12/20 History amlodipine 5 mg PO DAILY 10/09/20 10/09/20 Unknown History carvedilol 1 tab PO BID 10/09/20 10/09/20 Unknown History ipratropium-albuterol 1 vial INHALATION QID 10/09/20 10/09/20 Unknown History quetiapine 1 tab PO BID 10/09/20 10/09/20 Unknown History simvastatin 1 tab PO BEDTIME 10/09/20 10/09/20 Unknown History Physical Exam Vital Signs and Narrative: Vital Signs: Last Vital Signs Temp 98.0 F 10/09/20 10:09 Pulse 83 10/09/20 14:00 Resp 16 10/09/20 14:00 BP 191/121 H 10/09/20 14:21 Pulse Ox 98 10/09/20 14:00 Oxygen Flow Rate 4 10/09/20 10:09 Body Mass Index 27.6 Constitutional Awake and Alert, No apparent distress HEENT-PERRLA, EOMI Neck Supple, No lymphadenopathy, No JVD Cardiovascular RRR, No M/R/G, S1 S2, No S3 S4, No pedal edema Respiratory no respiratory distress, dimish air entru billy, no wheezes, and no accessory muscle use Gastrointestinal Non tender, Non-distended Skin No rash Neurological Alert & oriented x3 Psychological Appropriate affect Results Labs CBC and Chem 7: 10/09/20 11:06 10/09/20 10:56 Labs: Laboratory Results - last 24 hr 10/09/20 10/09/20 10/09/20 10:56 10:56 10:56 MCV MCH MCHC RDW Plt Count MPV Immature Gran % (Auto) Neut % (Auto) Lymph % (Auto) [place] % (Auto) Eos % (Auto) Baso % (Auto) Lymph # (Auto) [place] # (Auto) Eos # (Auto) Baso # (Auto) Abs Immat Gran (auto) Absolute Neuts (auto) Absolute Nucleated RBC Nucleated RBC % (auto) Hold Blue Top SEE NOTE Anion Gap 14 Estim Creat Clear Calc 77.9 Estimated GFR > 60 Random Glucose 165 H D Lactic Acid Calcium 9.2 Magnesium 3.1 H Total Bilirubin 0.7 Direct Bilirubin 0.2 AST 17 ALT 9 Alkaline Phosphatase 152 H Troponin I High Sens B-Natriuretic Peptide Total Protein 7.7 Albumin 4.4 Procalcitonin Urine Color Urine Appearance Urine pH Ur Specific [place] Urine Protein Urine Glucose (UA) Urine Ketones Urine Blood Urine Nitrite Ur Leukocyte Esterase Urine RBC Urine WBC Ur Squamous Epith Cells Urine Bacteria COVID-19 (ANEL) COVID-19 Clin Com 10/09/20 10/09/20 10/09/20 10:56 11:06 11:06 MCV 81.0 MCH 24.2 L MCHC 29.8 L RDW 15.3 Plt Count 195 MPV 10.3 Immature Gran % (Auto) 0.2 Neut % (Auto) 87.6 H Lymph % (Auto) 10.3 L [place] % (Auto) 1.6 L Eos % (Auto) 0.2 Baso % (Auto) 0.1 Lymph # (Auto) 0.9 L [place] # (Auto) 0.1 Eos # (Auto) 0.0 Baso # (Auto) 0.0 Abs Immat Gran (auto) 0.02 Absolute Neuts (auto) 7.6 Absolute Nucleated RBC 0.000 Nucleated RBC % (auto) 0.0 Hold Blue Top Anion Gap Estim Creat Clear Calc Estimated GFR Random Glucose Lactic Acid 1.8 Calcium Magnesium Total Bilirubin Direct Bilirubin AST ALT Alkaline Phosphatase Troponin I High Sens B-Natriuretic Peptide Total Protein Albumin Procalcitonin 0.02 Urine Color Urine Appearance Urine pH Ur Specific [place] Urine Protein Urine Glucose (UA) Urine Ketones Urine Blood Urine Nitrite Ur Leukocyte Esterase Urine RBC Urine WBC Ur Squamous Epith Cells Urine Bacteria COVID-19 (ANEL) COVID-19 Clin Com 10/09/20 10/09/20 10/09/20 11:06 11:08 13:09 MCV MCH MCHC RDW Plt Count MPV Immature Gran % (Auto) Neut % (Auto) Lymph % (Auto) [place] % (Auto) Eos % (Auto) Baso % (Auto) Lymph # (Auto) [place] # (Auto) Eos # (Auto) Baso # (Auto) Abs Immat Gran (auto) Absolute Neuts (auto) Absolute Nucleated RBC Nucleated RBC % (auto) Hold Blue Top Anion Gap Estim Creat Clear Calc Estimated GFR Random Glucose Lactic Acid Calcium Magnesium Total Bilirubin Direct Bilirubin AST ALT Alkaline Phosphatase Troponin I High Sens 27.9 H* B-Natriuretic Peptide 822 H Total Protein Albumin Procalcitonin Urine Color STRAW Urine Appearance CLEAR Urine pH 6.0 Ur Specific [place] 1.010 Urine Protein NEG Urine Glucose (UA) NEG Urine Ketones NEG Urine Blood NEG Urine Nitrite NEG Ur Leukocyte Esterase TRACE H Urine RBC 1-4 Urine WBC 1-4 Ur Squamous Epith Cells NONE Urine Bacteria NONE COVID-19 (ANEL) Negative COVID-19 Clin Com See Note 10/09/20 13:12 MCV MCH MCHC RDW Plt Count MPV Immature Gran % (Auto) Neut % (Auto) Lymph % (Auto) [place] % (Auto) Eos % (Auto) Baso % (Auto) Lymph # (Auto) [place] # (Auto) Eos # (Auto) Baso # (Auto) Abs Immat Gran (auto) Absolute Neuts (auto) Absolute Nucleated RBC Nucleated RBC % (auto) Hold Blue Top Anion Gap Estim Creat Clear Calc Estimated GFR Random Glucose Lactic Acid Calcium Magnesium Total Bilirubin Direct Bilirubin AST ALT Alkaline Phosphatase Troponin I High Sens 58.1 H* D B-Natriuretic Peptide Total Protein Albumin Procalcitonin Urine Color Urine Appearance Urine pH Ur Specific [place] Urine Protein Urine Glucose (UA) Urine Ketones Urine Blood Urine Nitrite Ur Leukocyte Esterase Urine RBC Urine WBC Ur Squamous Epith Cells Urine Bacteria COVID-19 (ANEL) COVID-19 Clin Com Imaging Radiologist's Impressions: Impressions Chest X-Ray 10/09/20 10:02 IMPRESSION: Stable enlargement of the cardiac silhouette. Upper lobe emphysematous changes. No evidence for acute disease in the chest. Assessment and Plan (1) Acute and chronic respiratory failure with hypoxia: Status: Acute (2) Congestive heart failure: Qualifiers: Heart failure chronicity: acute on chronic Heart failure type: systolic Qualified Code(s): I50.23 - Acute on chronic systolic (congestive) heart failure Status: Acute (3) Tobacco abuse: Status: Acute (4) Essential hypertension: Status: Acute (5) Elevated troponin: Status: Acute 60 year-old woman with COPD/asthma, chronic hypoxic respiratory failure on 3L of home O2, HTN, chronic systolic heart failure d/t NICM (non ischemic cardiomyopathy) with last EF 30% 06/18/20, DM2, chronic anemia, and ongoing tobacco abuse presenting with acute hypoxic respiratoyr failure associated with elevated troponin, acclerated HTN, and exacerbation of COPD. # acute/chronic hypoxic respiratory failure - supplemental O2. Check ABG. will check D-dimer and if elevated, will check CTA to r/o PE # COPD/asthma exacerbation - methylprednisolone IV, prn MARILYN/NIRMAL inhaler; no ABX given lack of purulent sputum, no fever and normal WBC - continue LABA + LTRA # troponin indeterminate - suspect demand ischemia from above issues and underlying HFrEF; no EKG changes; recheck troponin I # NICM, chronic HFrEF, she does appear euvolemic - continue lisionpril + carvedilol. She is appears euvolemic despite elevated BNP which is chronic #Accelerated HTN--she says, she has has taken meds, BP is very high, she has received IV labetalol and is still high, add IV Hydralazine, -continue home meds of Norvasc, Coreg, Lisinopril and adjust for optimal BP # DM2 - correction-dose lispro # HLD - atorvastatin # Chronic tobacco use desorder--Nicotine replacement therapy DVT prophylaxis: Lovneox
[2020-10-09 15:15] LABS: D Dimer < 200 NG/ML
[2020-10-09] MEDS: 0.9 % Sodium Chloride Flush 3 ML SYRINGE IVFLUSH ×2 (15:16→23:30)
[2020-10-09] MEDS: hydrALAZINE HCl 20 MG/ML VIAL 10 MG IVPUSH (15:20)
[2020-10-09] MEDS: methylPREDNISolone Sod Succ 40 MG/ML VIAL IVPUSH ×2 (16:19→22:37)
[2020-10-09] MEDS: amLODIPine Besylate 5 MG TABLET PO (16:19)
[2020-10-09 16:36] LABS: ABG HCO3 28 mmol/L (22-26); ABG pCO2 37 mmHg (32-45); ABG pCO2 TC 36 mmHg (32-45); ABG pH 7.48 (7.35-7.45); ABG pH TC 7.49 (7.35-7.45); ABG pO2 51 mmHg (83-108); ABG pO2 TC 50 (83-108)
[2020-10-09 17:17] LABS: Glucose, Whole Blood 179 mg/dL (60-115)
[2020-10-09] MEDS: Insulin Lispro 100 UNIT/ML 3 ML VIAL SUBCUT ×2 (17:25→20:35)
[2020-10-09 20:33] LABS: Glucose, Whole Blood 160 mg/dL (60-115)
[2020-10-09] MEDS: carvediloL 12.5 MG TABLET PO (20:34)
[2020-10-09] MEDS: QUEtiapine Fumarate 50 MG TABLET PO (20:35)
[2020-10-09] MEDS: Montelukast Sodium 10 MG TABLET PO (20:35)
[2020-10-09] MEDS: Atorvastatin Calcium 20 MG TABLET PO (20:35)
[2020-10-09 23:03] LABS: ABG Refer to POC result
[2020-10-10] VITALS (10 sets, daily range): BP systolic 137–178; BP diastolic 75–94; PULSE 71–104; RESP 17–20; TEMP 36.1–36.8; O2SAT 90–98
[2020-10-10] MEDS: Omeprazole 20 MG CAPSULE.DR PO (06:05)
[2020-10-10 07:14] LABS: Glucose, Whole Blood 126 mg/dL (60-115)
[2020-10-10] MEDS: Albuterol/Iprat 2.5/0.5MG 3 ML AMPUL.NEB INHALE ×2 (07:49→14:59)
[2020-10-10] MEDS: lisinopriL 20 MG TABLET PO (08:12)
[2020-10-10] MEDS: QUEtiapine Fumarate 50 MG TABLET PO ×2 (08:12→20:37)
[2020-10-10] MEDS: Sertraline HCL 100 MG TABLET 200 MG PO (08:12)
[2020-10-10] MEDS: carvediloL 12.5 MG TABLET PO ×2 (08:12→20:37)
[2020-10-10] MEDS: methylPREDNISolone Sod Succ 40 MG/ML VIAL IVPUSH ×3 (08:13→23:37)
[2020-10-10] MEDS: Folic Acid 1 MG TABLET PO (08:13)
[2020-10-10] MEDS: 0.9 % Sodium Chloride Flush 3 ML SYRINGE IVFLUSH ×3 (08:13→23:37)
[2020-10-10] MEDS: amLODIPine Besylate 5 MG TABLET PO (08:13)
--- NOTE | 2020-10-10 10:05 | MHC.CM.PN ---
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
[2020-10-10 11:12] LABS: Glucose, Whole Blood 132 mg/dL (60-115)
--- NOTE | 2020-10-10 12:59 | P.PNIM_ITS ---
Subjective Subjective Date of Service: 10/10/20 Review of Systems Gen: no fever Resp: +sob, no cough CV: no chest, + [place], no leg edema GI: No n/v, no abd pain Neuro: No confusion Physical Exam Vital Signs: Vital Signs: Last Vital Signs Temp 97 F 10/10/20 10:57 Pulse 79 10/10/20 10:57 Resp 20 10/10/20 10:57 BP 137/88 10/10/20 10:57 Pulse Ox 97 10/10/20 10:57 Oxygen Flow Rate 4 10/09/20 10:09 .Body Mass Index 27.6 Const: Other: Constitutional Awake and Alert, No apparent distress Neck Supple, No lymphadenopathy Cardiovascular RRR, No M/R/G, S1 S2, No S3 S4, No pedal edema Respiratory Lungs less tight today Gastrointestinal Non tender, Non-distended Skin No rash Neurological Alert & oriented x3 Psychological Appropriate affect Objective Data Current Medications Generic Name Dose Route Start Last Admin Trade Name Freq PRN Reason Stop Dose Admin Acetaminophen 650 mg 10/09/20 14:22 Acetaminophen Supp 650 Mg Supp.Rect RI Q6H PRN Pain, Mild (Pain Scale 1-3) Albuterol/Ipratropium 3 ml 10/09/20 17:00 10/10/20 11:18 Albuterol/Iprat 2.5/0.5mg 3 Ml Ampul.Neb INHALE Not Given QID WALDEMAR Albuterol/Ipratropium 3 ml 10/09/20 15:23 Albuterol/Iprat 2.5/0.5mg 3 Ml Ampul.Neb INHALE Q2H PRN Shortness of Breath Amlodipine Besylate 5 mg 10/09/20 15:21 10/10/20 08:13 Amlodipine Besylate 5 Mg Tablet PO 5 mg DAILY WALDEMAR Administration Protocol Atorvastatin Calcium 20 mg 10/09/20 21:00 10/09/20 20:35 Atorvastatin Calcium 20 Mg Tablet PO 20 mg BEDTIME WALDEMAR Administration Carvedilol 12.5 mg 10/09/20 21:00 10/10/20 08:12 Carvedilol 12.5 Mg Tablet PO 12.5 mg BID WALDEMAR Administration Protocol Enoxaparin Sodium 40 mg 10/09/20 14:30 10/09/20 16:14 Enoxaparin Sodium 40 Mg/0.4 Ml Syringe SUBCUT Not Given Q24H [facility] Folic Acid 1 mg 10/10/20 09:00 10/10/20 08:13 Folic Acid 1 Mg Tablet PO 1 mg DAILY WALDEMAR Administration Insulin Human Lispro 0 unit 10/09/20 16:30 10/10/20 11:01 Insulin Lispro 100 Unit/Ml 3 Ml Vial SUBCUT Not Given QIDACHS [facility] Protocol Lisinopril 20 mg 10/10/20 09:00 10/10/20 08:12 Lisinopril 20 Mg Tablet PO 20 mg DAILY WALDEMAR Administration Protocol Magnesium Hydroxide 30 ml 10/09/20 14:22 Milk Of Magnesia 30 Ml Oral.Susp PO DAILY PRN Constipation Meclizine HCl 25 mg 10/09/20 15:21 Meclizine Hcl 25 Mg Tablet PO TID PRN dizziness Methylprednisolone Sodium Succinate 40 mg 10/09/20 15:30 10/10/20 08:13 Methylprednisolone Sod Succ 40 Mg/Ml Vial IVPUSH 40 mg Q8H WALDEMAR Administration Montelukast Sodium 10 mg 10/09/20 21:00 10/09/20 20:35 Montelukast Sodium 10 Mg Tablet PO 10 mg BEDTIME WALDEMAR Administration Omeprazole 20 mg 10/10/20 06:30 10/10/20 06:05 Omeprazole 20 Mg Capsule. PO 20 mg DAILY@0630 [facility] Administration Pharmacy Consult 1 each 10/09/20 10:11 Consult Rx Perform Med Rec MISCELLANE ONCE PRN Consult order Quetiapine Fumarate 50 mg 10/09/20 21:00 10/10/20 08:12 Quetiapine Fumarate 50 Mg Tablet PO 50 mg BID WALDEMAR Administration Sertraline HCl 200 mg 10/10/20 09:00 10/10/20 08:12 Sertraline Hcl 100 Mg Tablet PO 200 mg DAILY [facility] Administration Sodium Chloride 3 ml 10/09/20 16:00 10/10/20 08:13 0.9 % Sodium Chloride Flush 3 Ml Syringe IVFLUSH 3 ml QSHIFT [facility] Administration Tiotropium [place] 1 puff 10/10/20 09:00 10/10/20 07:49 Tiotropium [place] 18 Mcg Cap.W.Dev INHALE 1 puff DAILY WALDEMAR Administration Trazodone HCl 50 - 100 mg 10/09/20 15:21 Trazodone Hcl 50 Mg Tablet PO BEDTIME PRN Sleep Labs CBC & Chem 7: 10/09/20 11:06 10/09/20 10:56 Microbiology Microbiology Results: Microbiology 10/09/20 Unknown Urine clean catch - Clean Catch Midstream Urine Culture - Final Assessment and Plan (1) Acute and chronic respiratory failure with hypoxia: Status: Acute (2) Congestive heart failure: Status: Acute (3) Tobacco abuse: Status: Acute (4) Essential hypertension: Status: Acute (5) Elevated troponin: Status: Acute Assessment and Plan: 60 year-old woman with COPD/asthma, chronic hypoxic respiratory failure on 3L of home O2, HTN, chronic systolic heart failure d/t NICM (non ischemic cardiomyopathy) with last EF 30% 06/18/20, DM2, chronic anemia, and ongoing tobacco abuse presenting with acute hypoxic respiratoyr failure associated with elevated troponin, acclerated HTN, and exacerbation of COPD. # Acute/chronic hypoxic respiratory failure d/t COPD exacerbation - supplemental O2. Check ABG. DDimer normal # COPD/asthma exacerbation - methylprednisolone IV, prn MARILYN/NIRMAL inhaler; no ABX given lack of purulent sputum, no fever and normal WBC - continue LABA + LTRA. Pulmonary consult pending # troponin indeterminate - suspect demand ischemia from above issues and underlying HFrEF; no EKG ch barbara; recheck troponin I # NICM, chronic HFrEF, she does appear euvolemic - continue lisionpril + carvedilol. She is appears euvolemic despite elevated BNP which is chronic. Continue home Lasix #Accelerated HTN--she says, she has has taken meds, BP is very high, she has received IV labetalol and is still high, PRN IV Hydralazine, -continue home meds of Norvasc, Coreg, Lisinopril and adjust for optimal BP # DM2 - correction-dose lispro # HLD - atorvastatin # Chronic tobacco use desorder--Nicotine replacement therapy DVT prophylaxis: Lovneox
--- NOTE | 2020-10-10 14:07 | PM.EVENT ---
Event Note Event Note: PULMONARY NOTE. PATIENT WAS SEEN THIS MORNING BY ME FOR PULMONARY CONSULT. CONSULTATION NOTE IS DICTATED. AGREE WITH THE CURRENT TREATMENT, PATIENT HAS ALREADY IMPROVED TO ALMOST HER BASELINE. SHE SHOULD BE FOLLOWED VERY REGULARLY OUTPATIENT.
[2020-10-10 15:41] LABS: Glucose, Whole Blood 123 mg/dL (60-115)
[2020-10-10] MEDS: Enoxaparin Sodium 40 MG/0.4 ML SYRINGE SUBCUT (16:06)
[2020-10-10 19:53] LABS: Glucose, Whole Blood 217 mg/dL (60-115)
[2020-10-10] MEDS: Atorvastatin Calcium 20 MG TABLET PO (20:36)
[2020-10-10] MEDS: Montelukast Sodium 10 MG TABLET PO (20:36)
[2020-10-10] MEDS: Insulin Lispro 100 UNIT/ML 3 ML VIAL SUBCUT (20:38)
--- NOTE | 2020-10-10 23:50 | CONS_ITS ---
DATE OF SERVICE: 10/10/2020 HISTORY OF PRESENT ILLNESS: This patient is a 60-year-old chronically sick with multiple medical problems including chronic obstructive pulmonary disease, with chronic hypoxemia and also sleep apnea. She does have oxygen at home, which she uses 3 L/minute and she is supposed to be on DuoNeb updrafts q.i.d. and p.r.n. Also, she uses montelukast 10 mg daily for chronic nasal allergies. The patient was brought to the emergency room by ambulance because she became more short of breath than usual, initially in the emergency room was noted to be hypoxemic and required non-rebreather mask for a little while and then she was started back on nasal cannula. More details not available, but patient did not have any fever or chills or chest pain. Her BNP level was elevated at 822 and the troponin level slightly increased. She may have been in mild congestive heart failure. The chest x-ray does not show any acute pneumonia. Since her admission, she is on Solu-Medrol 40 mg q.8 hours, DuoNeb updrafts, and oxygen supplements; and she has definitely improved. This morning when I examined her; on questioning, she states that her breathing is now okay. She does not have any distress and she is on oxygen by nasal cannula 3 L/minute. PAST MEDICAL HISTORY: Includes advanced chronic obstructive pulmonary disease, chronic hypoxemia, obstructive sleep apnea, frequent acute exacerbations, cardiac disease with cardiomyopathy and chronic congestive heart failure, hyperlipidemia, hypertension, chronic back pain. Chronic anxiety and psychological issues. The patient is noncompliant to the use of CPAP and it is not very clear how compliant she is to her medications. REVIEW OF SYSTEMS: Not obtainable at this time, but she does not seem to have any cough or distress. Does not have any fever. Does not present with any GI problems and neurologically, there is no confusion. PHYSICAL EXAMINATION: GENERAL: A 60-year-old female, lying down, supine in her bed without any distress. She is conversing without any shortness of breath. VITAL SIGNS: Current respiratory rate is 14 on oxygen 3 L/minute, O2 saturation 93%. Temperature is normal. EAR, NOSE, THROAT EXAMINATION: Normal. NECK: Trachea in midline. No lymphadenopathy. No jugular venous distention. CHEST: Percussion note is resonant. Breath sounds are distant with prolonged expiratory phase. Definitely, no wheezes are heard. A few fine crepitations over the basilar areas. CARDIAC: Sounds are distant. Rhythm regular. No murmurs. ABDOMEN: Flat, soft, and nontender. EXTREMITIES: Trace of pitting edema is noted. No evidence of phlebitis. DIAGNOSTIC DATA: Chest x-ray, both lungs are aerated well. There is pulmonary emphysema predominantly in the upper lobes. No mass. No consolidation and no pleural effusion. LABORATORY DATA: White cell count 8.7, hemoglobin 11.3, eosinophil count is 0.2. BNP 822. Troponin-1 is 28. COVID test is negative. Blood gas, pH 7.49, pCO2 of 37, pO2 51. This represents respiratory alkalosis perhaps due to hyperventilation. CLINICAL IMPRESSION: 1. Acute exacerbation of chronic obstructive pulmonary disease, already improved and patient is stable. 2. I think her acute symptoms are more related to her anxiety and change in mental status. 3. May have superadded mild congestive heart failure, which has improved. 4. The patient has chronic respiratory failure/obstructive sleep apnea, but totally noncompliant to use of CPAP. RECOMMENDATIONS: 1. I agree with the current treatment including Solu-Medrol 40 mg q.8 hours for the first 24 hours and then may be changed to prednisone 40 mg a day for 5 days. 2. Continue Spiriva HandiHaler 1 inhalation daily. 3. DuoNeb updrafts q.i.d. 4. Albuterol updrafts q.4 to 6 hours p.r.n. 5. No need of any antibiotics at this time. 6. Oxygen 3 L/minute by nasal cannula is fine. 7. The patient should be encouraged to follow up as outpatient with the Pulmonary office for her ongoing respiratory problems and also continue to follow up with primary care physician as well as with Cardiology. Thank you very much for asking me to see this patient. Sincerely, MD SPEEDY Redman/ALYCE / [phone]
[2020-10-11] VITALS (8 sets, daily range): BP systolic 141–158; BP diastolic 77–90; PULSE 69–92; RESP 18–20; TEMP 35.5–36.7; O2SAT 92–100
[2020-10-11] MEDS: Omeprazole 20 MG CAPSULE.DR PO (05:26)
[2020-10-11 07:15] LABS: Glucose, Whole Blood 142 mg/dL (60-115)
[2020-10-11] MEDS: Albuterol/Iprat 2.5/0.5MG 3 ML AMPUL.NEB INHALE ×2 (07:35→11:18)
[2020-10-11] MEDS: lisinopriL 20 MG TABLET PO (07:45)
[2020-10-11] MEDS: Sertraline HCL 100 MG TABLET 200 MG PO (07:47)
[2020-10-11] MEDS: amLODIPine Besylate 5 MG TABLET PO (07:47)
[2020-10-11] MEDS: carvediloL 12.5 MG TABLET PO (07:48)
[2020-10-11] MEDS: Folic Acid 1 MG TABLET PO (07:48)
[2020-10-11] MEDS: QUEtiapine Fumarate 50 MG TABLET PO (07:48)
[2020-10-11] MEDS: methylPREDNISolone Sod Succ 40 MG/ML VIAL IVPUSH (07:48)
[2020-10-11] MEDS: 0.9 % Sodium Chloride Flush 3 ML SYRINGE IVFLUSH (09:35)
[2020-10-11 11:11] LABS: Glucose, Whole Blood 148 mg/dL (60-115)
--- NOTE | 2020-10-11 11:33 | MHC.CM.PN ---
Addendum entered by Tomeka Gutierrez 10/11/20 15:12: [facility] ARRANGED FOR PT WHO IS DC'ING HOME WITH [facility] [employer]. Original Note: PER CASTRO DURANT, PT IS ACTIVE WITH THEM FOR CARE HOME CURRENT DC PLAN IS DC HOME TODAY WITH [facility] [employer]. [facility] TO TRANSPORT
--- NOTE | 2020-10-11 14:42 | PM.DS ---
DS: Providers Provider Date of Service: 10/11/20 Date of admission: 10/09/20 14:30 Primary care physician: Dereck Navarro MD Consults: 10/10/20 08:44 Consult to Pulmonology Routine Consulting Provider: Rianna Gomez Reason for consultation: exacerbation of copd DS: Diagnosis Discharge Diagnosis (1) Acute and chronic respiratory failure with hypoxia: Status: Acute (2) Congestive heart failure: Status: Acute (3) Tobacco abuse: Status: Acute (4) Essential hypertension: Status: Acute (5) Elevated troponin: Status: Acute DS: Medications Discharge Medications Home Medications: Home Medications Medication Instructions Recorded Confirmed omeprazole 20 mg PO DAILY@0630 03/08/20 10/09/20 sertraline 200 mg PO DAILY 03/08/20 10/09/20 trazodone 50 - 100 mg PO BEDTIME PRN 03/08/20 10/09/20 amlodipine 5 mg PO DAILY 10/09/20 10/09/20 carvedilol 1 tab PO BID 10/09/20 10/09/20 ipratropium-albuterol 1 vial INHALATION QID 10/09/20 10/09/20 quetiapine 1 tab PO BID 10/09/20 10/09/20 simvastatin 1 tab PO BEDTIME 10/09/20 10/09/20 Previous Rx's Medication Instructions Recorded meclizine 25 mg tablet 25 mg PO TID PRN 30 Days #90 tab 05/10/20 tiotropium bromide 18 mcg capsule 1 cap INHALATION DAILY 30 Days #30 05/20/20 with inhalation device inh folic acid 1 mg PO DAILY #90 tab 07/26/20 lisinopril 20 mg PO DAILY #30 tab 08/15/20 montelukast 10 mg tablet 10 mg PO BEDTIME #30 tab 08/27/20 prednisone 5 mg tablet 5 mg PO DAILY 30 Days #30 tab 10/07/20 DS: Summary Hospital Course Hospital Course: Chief Complaint: Shortness of breath 60 y/o female with history of chronic respiratory failure due COPD on home O2 at 3L via NC, chronic systolic CHF w/ EF 30%, DM2, HTN, KELLIE noncompliant with CPAP, mitral regurgitation, depression/anxiety and active smoke and chronic anemia. She presents to ED today via EMS because progressive shortenss of breath for weeks, and worse the last 24 hours. At baseline she is not all active, she she has no lege edema, no fever or cough, she is not yet vaccinated for covid. EMS documented oxygen saturation of 81 on oxygen and sounded very diminished. CXR in ED show stable exam. BNP level is around 822, sligtly higher than last dose. Her troponin has risen from 27 to 58, ECG shows no acute ischemic changes. BP is now 191/121, she says she has taken all her meds. She is treated with NRB, IV lasix, IV solumedrol and breathing treatment by Neb. Hospital course: She presented with shortness and hypoxia as usual and continue to smoke, CXR showed no acute finding, she had lots of tightness on exam, her troponin I was slighyly without chest pain and was consistent with previous presentation, there was no signs of heart failure. She was admitted and treated with for acute on chronic hypoxic respiratory failure related to COPD exacerabation related to chronic tobacco use. She was treated while in the hospital with IV solumedrol and bronchodilators by Nebulizer and seen by Dr. Gomez who thinks she back to baseline. She advised to stop smoking and to continue usual meds and follow up with pulmonology clinic. Will discharge with higher dose of Prednisone for 3 days then go back on 5 mg daily Time Spent with Patient Time attestation: Total time spent providing and/or coordinating discharge services: Discharge coordination time: Greater than 30 minutes Quality: Stroke Does the patient have a stroke diagnosis?: No Physical Exam Vital Signs: Vital Signs: Last Vital Signs Temp 96 F L 10/11/20 10:54 Pulse 92 10/11/20 11:18 Resp 20 10/11/20 10:54 BP 148/90 H 10/11/20 10:54 Pulse Ox 96 10/11/20 10:54 Oxygen Flow Rate 4 10/09/20 10:09 Body Mass Index 27.6 Constitutional Awake and Alert, No apparent distress Neck Supple, No lymphadenopathy Cardiovascular RRR, No M/R/G, S1 S2, No S3 S4, No pedal edema Respiratory Lungs clear, No respiratory distress, good air movement Gastrointestinal Non tender, Non-distended Skin No rash Neurological Alert & oriented x3 Psychological Appropriate affect DS: Data Data Completed and Pending Completed studies during hospitalization [Text1]: Procedures Assistance with Respiratory Ventilation, Less than 24 Consecutive Hours, Continuous Positive Airway Pressure (07/27/20) Labs on day of discharge: Laboratory Results - last 24 hr 10/10/20 10/10/20 10/11/20 15:35 19:45 06:52 POC Glucose 123 H 217 H 142 H 10/11/20 10:54 POC Glucose 148 H Preliminary micro results at discharge 10/09/20 11:06 Blood Culture - Preliminary Blood - Venous No growth after 48 hours. 10/09/20 10:56 Blood Culture - Preliminary Blood - Venous No growth after 48 hours. Discharge Plan Discharge Anticipated Discharge Date/Time: 10/11/20 14:30 Patient Disposition: Home Health Service Discharge Diagnosis: Acute and chronic respiratory failure Referrals: Mariely DURANT [Outside] - 1 Week Dereck Navarro MD [Primary Care Provider] - 1 Week Discharge Medications: New prednisone 20 mg tablet 20 mg PO DAILY Qty: 3 RF: 0 Continued meclizine 25 mg tablet 25 mg PO TID PRN (Reason: dizziness) 30 Days Qty: 90 RF: 3 tiotropium bromide [Spiriva with HandiHaler] 18 mcg capsule, w/inhalation device 1 cap inhalation DAILY 30 Days Qty: 30 RF: 5 montelukast 10 mg tablet 10 mg PO BEDTIME Qty: 30 RF: 11 prednisone 5 mg tablet 5 mg PO DAILY 30 Days Qty: 30 RF: 1 lisinopril 20 mg Tablet 20 mg PO DAILY Qty: 30 RF: 0 ipratropium-albuterol 0.5 mg-3 mg(2.5 mg base)/3 mL solution for nebulization 1 vial inhalation QID RF: 0 carvedilol 12.5 mg tablet 1 tab PO BID RF: 0 amlodipine 5 mg Tablet 5 mg PO DAILY RF: 0 simvastatin 40 mg tablet 1 tab PO BEDTIME RF: 0 quetiapine 50 mg tablet 1 tab PO BID RF: 0 omeprazole 20 mg capsule,delayed release(DR/EC) 20 mg PO DAILY@30 RF: 0 trazodone 50 mg tablet 50 - 100 mg PO BEDTIME PRN (Reason: Sleep) RF: 0 sertraline 100 mg tablet 200 mg PO DAILY RF: 0 folic acid 1 mg Tablet 1 mg PO DAILY Qty: 90 RF: 4 Discharge Orders: Discharge Order (Routine); Ordered 06/10/21 Ordered By: Sahil Yost Diet: advance to usual diet Activity on Discharge: As tolerated Stand Alone Forms: Patient Portal Discharge page Care Plan Goals: prevent rehospitalization and exacerbation of respiratoy failure Health Concerns: chronic respiaratory failure due to copd and chronic tobacco use Plan of Treatment: Stop smoking and continue using your inhalers as usual, follow up with pulmonology Assessment: See above
--- NOTE | 2020-10-11 15:04 | PC.NURSE ---
Patient refusing STAT trop lab draw. Lab draw explained with division chief at bedside. notified.
== END 2020-10-11 18:30 | disposition home health service (06) | DRG 140 ==
LOC: HO.ED 13:19 → HO.EDOVER 14:32 → HO.S3 15:09 → HO.IMC 16:03
PROVIDERS: Physician Assistant; Admitting Provider Internal Medicine; Emergency Provider Emergency Medicine; PCP Internal Medicine; Visit Provider Internal Medicine
DX: J44.1 Chronic obstructive pulmonary disease with (acute) exacerbation (principal); J96.21 Acute and chronic respiratory failure with hypoxia; I50.23 Acute on chronic systolic (congestive) heart failure; Z99.81 Dependence on supplemental oxygen; I42.8 Other cardiomyopathies; J45.901 Unspecified asthma with (acute) exacerbation; F17.210 Nicotine dependence, cigarettes, uncomplicated; Z71.6 Tobacco abuse counseling; E11.9 Type 2 diabetes mellitus without complications; E78.5 Hyperlipidemia, unspecified; I11.0 Hypertensive heart disease with heart failure; G47.33 Obstructive sleep apnea (adult) (pediatric); Z99.89 Dependence on other enabling machines and devices; Z91.19 Patient's noncompliance with other medical treatment and regimen; F32.9 Major depressive disorder, single episode, unspecified; F41.9 Anxiety disorder, unspecified; Z20.822 Contact with and (suspected) exposure to COVID-19; Z79.52 Long term (current) use of systemic steroids; Z79.899 Other long term (current) drug therapy
CPT/HCPCS: 36415; 36600; 71045; 80048; 80076; 81001; 81003; 82947; 83605; 83735; 83880; 84145; 84484; 85025; 85379; 87040; 87086; 87635; 93005; 94640; 99285; J1650; J1940; J2920

== ENCOUNTER 2020-10-25 10:15 | Inpatient (IN) | payer OTHER, SELFPAY ==
[2020-10-25] VITALS (15 sets, daily range): BP systolic 146–197; BP diastolic 85–113; PULSE 85–120; RESP 16–22; TEMP 36.4–37.1; O2SAT 68–99; BMI 31.3
--- NOTE | ~2020-10-25 | XR_ITS ---
EXAMINATION: XR CHEST CLINICAL INFORMATION: Dyspnea COMPARISON: Chest 10/09/2020 TECHNIQUE: Frontal view of the chest was obtained. FINDINGS: There is moderate enlarged cardiac silhouette with prominent pulmonary vascularity suggesting mild congestion most prominent in both lower lobes. The upper lungs are relatively clear. No gross bony abnormality seen. XR/XR chest 1V IMPRESSION: Cardiomegaly with increased vascularity suggestive of mild congestion. The vascularity is more prominent compared to 10/09/2020.
--- NOTE | 2020-10-25 10:19 | ECG_ITS ---
Test Reason : DYSPNEA Blood Pressure : / mmHG Vent. Rate : 092 BPM Atrial Rate : 092 BPM P-R Int : 130 ms QRS Dur : 116 ms QT Int : 414 ms P-R-T Axes : 041 004 014 degrees QTc Int : 511 ms Normal sinus rhythm Incomplete right bundle branch block Prolonged QT Abnormal ECG When compared with ECG of 09-OCT-2020 10:18, Incomplete right bundle branch block has replaced Right bundle branch block Referred By: Kezia Chapman Electronically Signed By:Kemar Curry
[2020-10-25] MEDS: Albuterol Sulfate (0.083%) 2.5 MG/3 ML VIAL.NEB 10 MG INHALE (10:25)
--- NOTE | 2020-10-25 10:25 | ED_ITS ---
HPI - Asthma General Chief Complaint: Dyspnea Stated Complaint: SOB FROM DR OFFICE Time Seen by Provider: 10/25/20 10:21 Source: patient, EMS and american sign language interpreter Mode of arrival: EMS Limitations: no limitations History of Present Illness MD complaint: asthma attack , shortness of breath and wheezing Onset (ago): week(s) (1) Severity: severe and worse than usual Context: none known Associated symptoms: productive cough Asthma History: childhood onset Treatments Prior to Arrival: inhaled bronchodilator and oxygen Related Data Current Asthma Therapy: inhaled bronchodilator and recent oral steroid Home Medications Medication Instructions Recorded Confirmed sertraline 200 mg PO DAILY 03/08/20 10/25/20 trazodone 100 mg PO BEDTIME PRN 03/08/20 10/25/20 amlodipine 5 mg PO DAILY 10/09/20 10/09/20 carvedilol 1 tab PO BID 10/09/20 10/09/20 ipratropium-albuterol 1 vial INHALATION QID 10/09/20 10/25/20 quetiapine 50 mg PO BID 10/09/20 10/25/20 Previous Rx's Medication Instructions Recorded meclizine 25 mg tablet 25 mg PO TID PRN 30 Days #90 tab 05/10/20 tiotropium bromide 18 mcg capsule 1 cap INHALATION DAILY 30 Days #30 05/20/20 with inhalation device inh folic acid 1 mg PO DAILY #90 tab 07/26/20 lisinopril 20 mg PO DAILY #30 tab 08/15/20 montelukast 10 mg tablet 10 mg PO BEDTIME #30 tab 08/27/20 prednisone 5 mg tablet 5 mg PO DAILY 30 Days #30 tab 10/07/20 omeprazole 20 mg capsule,delayed 20 mg PO DAILY #30 cap 10/19/20 release Allergies Allergy/AdvReac Type Severity Reaction Status Date / Time nicotine [Nicotine] Allergy Unknown ITCHING Verified 05/21/20 10:40 WITH THE PATCHES topiramate Allergy Unknown inadequealte Verified 05/21/20 10:40 response Review of Systems Review of Systems: Constitutional : No Fever, No Chills ENT/Mouth : No Hoarseness, No sore throat, No Rhinorrhea Eyes: No Redness, No Discharge, No Vision Changes Cardiovascular : No Chest Pain, positive SOB, positive Dyspnea on Exertion, No Edema Respiratory : positive Cough, pos Sputum, positive Wheezing, Gastrointestinal : No Nausea, No Vomiting, No Diarrhea, No abdominal Pain Genitourinary : No Dysuria, No Hematuria Musculoskeletal : No joint pain, pos Myalgias Skin : No rash Neuro : No Weakness, No Numbness, No Headache Psych : No anxiety, depression Heme/Lymph: No Bruising, No Bleeding Endocrine : No Polyuria, No Polydipsia All other systems reviewed and are negative PMFSH Past Medical History Attestation statement: The following information was validated with the patient. Medical History Acute and chronic respiratory failure with hypoxia Acute exacerbation of chronic obstructive pulmonary disease Acute on chronic respiratory failure with hypoxemia Anemia Anxiety Cardiomyopathy Chronic respiratory failure Congestive heart failure COPD (chronic obstructive pulmonary disease) COPD exacerbation Depression Diabetes Essential hypertension HFrEF (heart failure with reduced ejection fraction) HLD (hyperlipidemia) HTN (hypertension) Low back pain Mitral regurgitation Normocytic anemia KELLIE (obstructive sleep apnea) Postmenopausal Respiratory failure, acute Severe chronic obstructive pulmonary disease Supplemental oxygen dependent Tobacco abuse Surgical History Bilateral ankle fractures History of total abdominal hysterectomy Family History Family History Father No problems noted. Mother Liver cancer Hypertension Social History Social History Household Members: None Housing: Apartment Do you presently have visiting nurse or other home services: No Alcohol intake: never Patient Tobacco Use Status: Former Tobacco user Tobacco use type: Cigarette Cigarette Packs Per Day: 1 Cigarettes Per Day: 6 Smoked in Last 30 Days: Yes Second Hand Smoke Exposure: No Use of substances other than those prescribed or required for medical reasons: No Advance Directives: Yes Advance Directives on File: Yes Advance Directives Date on File: 04/30/20 service: No Current occupational status: disabled Physical Exam Vital Signs: Vital Signs: Last Vital Signs Temp 98.5 F 10/25/20 11:20 Pulse 112 H 10/25/20 11:20 Resp 20 10/25/20 11:20 BP 197/113 H 10/25/20 10:20 Pulse Ox 89 L 10/25/20 11:20 Oxygen Flow Rate 5 10/25/20 10:20 Body Mass Index 31.3 Appearance: Alert. Oriented X3. Moderate acute distress. Eyes: Pupils equal, round and reactive to light. ENT: Pharynx normal. Neck: Normal inspection. Neck supple. CVS: Normal heart rate and rhythm. Pulses normal. Respiratory: Moderate respiratory distress single words. Breath sounds decreased throughout with diffuse insp/exp wheezes Abdomen: Soft and non-tender. Skin: Skin warm and dry. Normal skin color. Normal skin turgor. Extremities: No lower extremity edema. No calf ttp Neuro: Oriented X 3. No motor deficit. No sensory deficit. Course Course Course Narrative: lactic acidosis due to hypoxia and albuterol not infection or severe sepsis overall she looks better, 96% on 55% venti IV insulin, plan to admit MDM - Asthma MDM Narrative Medical decision making narrative: 60 yo female with hx of chronic back pain, COPD on 3L NC at home, comes in with 1 week of body aches, dyspnea, cough with sputum production - found to be in the 60s at her PCP today, she is steroid dependent - at this time doing better on neb from EMS will need labs, cultures, COVID swab, CXR, hour long neb, IV steroids, IV magnesium, likely COPD exacerbation Lab Data Result diagrams: 10/25/20 10:35 10/25/20 10:35 Labs: Lab Results 10/25/20 10/25/20 10/25/20 Range/Units 10:35 10:35 10:35 WBC 8.8 (4.8-10.8) X10*3/uL RBC 4.19 L (4.20-5.50) X10*6/uL Hgb 10.2 L (12.0-16.0) g/dl Hct 34.6 L (37-47) % MCV 82.6 (80-98) fL MCH 24.3 L (27.0-33.0) pg MCHC 29.5 L (31.0-35.0) g/dl RDW 15.3 (11.0-16.0) % Plt Count 181 (160-400) X10*3/uL MPV 10.2 (9.4-12.3) fL Immature Gran % (Auto) 0.5 H (0.0-0.4) % Neut % (Auto) 86.2 H (45-73) % Lymph % (Auto) 10.2 L (20-40) % [place] % (Auto) 2.7 (2-11) % Eos % (Auto) 0.3 (0-4) % Baso % (Auto) 0.1 (0-2) % Lymph # (Auto) 0.9 L (1.2-4.9) X10*3/uL [place] # (Auto) 0.2 (0.1-1.2) X10*3/uL Eos # (Auto) 0.0 (0.0-0.4) X10*3/uL Baso # (Auto) 0.0 (0.0-0.2) X10*3/uL Abs Immat Gran (auto) 0.04 H (0.00-0.03) X10*3/uL Absolute Neuts (auto) 7.6 (2.0-8.3) X10*3/uL Absolute Nucleated RBC 0.000 (0.0-0.012) X10*3/uL Nucleated RBC % (auto) 0.0 (0.0-0.2) /100WBC VBG pH (7.32-7.43) VBG pCO2 mmHg VBG pO2 mmHg VBG HCO3 (22-26) mmol/L VBG O2 Saturation % VBG Base Excess mmol/L Sodium 138 (135-145) mmol/L Potassium 3.9 (3.3-5.1) mmol/L Chloride 99 (96-108) mmol/L Carbon Dioxide 28 (22-29) mmol/L Anion Gap 15 (12-20) BUN 9 (9-16) mg/dL Creatinine 0.86 (0.5-1.4) mg/dL Estim Creat Clear Calc 60.0 Estimated GFR > 60 Random Glucose 361 H* (60-115) mg/dL Lactic Acid 3.4 H* (0.5-2.0) mmol/L Calcium 9.1 (8.4-10.2) mg/dL Magnesium (1.6-2.6) mg/dL Total Bilirubin 0.4 (0.0-1.0) mg/dL Direct Bilirubin 0.2 (0.0-0.5) mg/dL AST 15 (5-31) U/L ALT 12 (0-31) U/L Alkaline Phosphatase 154 H (39-117) U/L Total Protein 7.3 (6.5-8.0) g/dL Albumin 4.2 (3.5-5.0) g/dL Lipase 21 (8-78) U/L COVID-19 (ANEL) (Negative) COVID-19 Clin Com 10/25/20 10/25/20 10/25/20 Range/Units 10:35 10:35 10:38 WBC (4.8-10.8) X10*3/uL RBC (4.20-5.50) X10*6/uL Hgb (12.0-16.0) g/dl Hct (37-47) % MCV (80-98) fL MCH (27.0-33.0) pg MCHC (31.0-35.0) g/dl RDW (11.0-16.0) % Plt Count (160-400) X10*3/uL MPV (9.4-12.3) fL Immature Gran % (Auto) (0.0-0.4) % Neut % (Auto) (45-73) % Lymph % (Auto) (20-40) % [place] % (Auto) (2-11) % Eos % (Auto) (0-4) % Baso % (Auto) (0-2) % Lymph # (Auto) (1.2-4.9) X10*3/uL [place] # (Auto) (0.1-1.2) X10*3/uL Eos # (Auto) (0.0-0.4) X10*3/uL Baso # (Auto) (0.0-0.2) X10*3/uL Abs Immat Gran (auto) (0.00-0.03) X10*3/uL Absolute Neuts (auto) (2.0-8.3) X10*3/uL Absolute Nucleated RBC (0.0-0.012) X10*3/uL Nucleated RBC % (auto) (0.0-0.2) /100WBC VBG pH 7.37 (7.32-7.43) VBG pCO2 57 mmHg VBG pO2 36 mmHg VBG HCO3 33 H (22-26) mmol/L VBG O2 Saturation 51.0 % VBG Base Excess 6.6 mmol/L Sodium (135-145) mmol/L Potassium (3.3-5.1) mmol/L Chloride (96-108) mmol/L Carbon Dioxide (22-29) mmol/L Anion Gap (12-20) BUN (9-16) mg/dL Creatinine (0.5-1.4) mg/dL Estim Creat Clear Calc Estimated GFR Random Glucose (60-115) mg/dL Lactic Acid (0.5-2.0) mmol/L Calcium (8.4-10.2) mg/dL Magnesium 2.0 (1.6-2.6) mg/dL Total Bilirubin (0.0-1.0) mg/dL Direct Bilirubin (0.0-0.5) mg/dL AST (5-31) U/L ALT (0-31) U/L Alkaline Phosphatase (39-117) U/L Total Protein (6.5-8.0) g/dL Albumin (3.5-5.0) g/dL Lipase (8-78) U/L COVID-19 (ANEL) Negative (Negative) COVID-19 Clin Com See Note ECG Data Attestation: I personally reviewed and interpreted this ECG as follows: ECG interpretation date: 10/25/20 ECG interpretation time: 10:45 Interpretation: Rate: 92 Rhythm: NSR O'Brien: normal Normal P waves. Normal GUILLE. RBBB ST T wave : normal no LAURO qTC: normal prior studies: unchanged The study has been interpreted contemporaneously by me. . Critical Care Time Critical Care Time Critical Care Time: Yes Total Critical Care Time: 60 Attestation: hour long, IV lasix, reassessments I attest to this time spent taking care of the patient Discharge Plan Discharge Clinical Impression: COPD (chronic obstructive pulmonary disease), Hypoxia, Acidosis, lactic, Elevated troponin Patient Disposition: Admitted As Inpatient Prescriptions: No Action meclizine 25 mg tablet 25 mg PO TID PRN (Reason: dizziness) 30 Days Qty: 90 RF: 3 tiotropium bromide [Spiriva with HandiHaler] 18 mcg capsule, w/inhalation device 1 cap inhalation DAILY 30 Days Qty: 30 RF: 5 montelukast 10 mg tablet 10 mg PO BEDTIME Qty: 30 RF: 11 prednisone 5 mg tablet 5 mg PO DAILY 30 Days Qty: 30 RF: 1 omeprazole 20 mg capsule,delayed release(DR/EC) 20 mg PO DAILY Qty: 30 RF: 1 lisinopril 20 mg Tablet 20 mg PO DAILY Qty: 30 RF: 0 ipratropium-albuterol 0.5 mg-3 mg(2.5 mg base)/3 mL solution for nebulization 1 vial inhalation QID RF: 0 carvedilol 12.5 mg tablet 1 tab PO BID RF: 0 amlodipine 5 mg Tablet 5 mg PO DAILY RF: 0 quetiapine 50 mg tablet 50 mg PO BID RF: 0 trazodone 50 mg tablet 100 mg PO BEDTIME PRN (Reason: Sleep) RF: 0 sertraline 100 mg tablet 200 mg PO DAILY RF: 0 folic acid 1 mg Tablet 1 mg PO DAILY Qty: 90 RF: 4
[2020-10-25] MEDS: Magnesium Sulfate/H2O 2 GM/50 ML PIGGYBACK IV (10:42)
[2020-10-25] MEDS: methylPREDNISolone Sod Succ 125 MG/2 ML VIAL IVPUSH (10:42)
[2020-10-25 10:43] LABS: MANUAL DIFF FLAG NO
[2020-10-25 10:53] LABS: Basophils Percent Auto 0.1 % (0-2); Eosinophils Percent Auto 0.3 % (0-4); Hematocrit 34.6 % (37-47); Hemoglobin 10.2 g/dl (12.0-16.0); Imm Gran Abs Auto 0.04 X10*3/uL (0.00-0.03); Imm Gran Pct Auto 0.5 % (0.0-0.4); Lymphocytes Absolute Auto 0.9 X10*3/uL (1.2-4.9); Lymphocytes Percent Auto 10.2 % (20-40); Mean Corpuscular HGB Conc 29.5 g/dl (31.0-35.0); Mean Corpuscular Hemoglobin 24.3 pg (27.0-33.0); Mean Corpuscular Volume 82.6 fL (80-98); Mean Platelet Volume 10.2 fL (9.4-12.3); Monocytes Absolute Auto 0.2 X10*3/uL (0.1-1.2); Monocytes Percent Auto 2.7 % (2-11); Neutrophils Absolute Auto 7.6 X10*3/uL (2.0-8.3); Neutrophils Percent Auto 86.2 % (45-73); Platelet Count 181 X10*3/uL (160-400); Red Blood Count 4.19 X10*6/uL (4.20-5.50); Red Cell Distribution Width 15.3 % (11.0-16.0); White Blood Count 8.8 X10*3/uL (4.8-10.8)
[2020-10-25 10:54] LABS: Venous Blood Gas Refer to POC result
[2020-10-25 10:54] LABS: VBG Base Excess 6.6 mmol/L; VBG HCO3 33 mmol/L (22-26); VBG pCO2 57 mmHg; VBG pH 7.37 (7.32-7.43); VBG pO2 36 mmHg
[2020-10-25 11:01] LABS: COVID-19 Test Negative (Negative)
[2020-10-25] MEDS: cefTRIAXone sodium 1 GM in 0.9 % Sodium Chloride 50 ML IV (11:06)
[2020-10-25 11:12] LABS: Lactic Acid 3.4 mmol/L (0.5-2.0)
--- NOTE | 2020-10-25 11:21 | PHA.MEDREC ---
Pharmacy Consult ? Medication Reconciliation Pharmacy has completed the medication reconciliation. There are some issues that need to be addressed by a provider. 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 Her last PCP appointment prior today that they reconcile medications was in May, Patient was previously prescribed simvastatin but does not report taking it. Due to smoking history and COPD patient would benefit to continue a statin. Jessica Fernandez, PharmD
[2020-10-25 11:25] LABS: Alanine Aminotransferase 12 U/L (0-31); Albumin Level 4.2 g/dL (3.5-5.0); Alkaline Phosphatase 154 U/L (39-117); Anion Gap 15 (12-20); Aspartate Amino Transferase 15 U/L (5-31); Bilirubin Direct 0.2 mg/dL (0.0-0.5); Bilirubin Total 0.4 mg/dL (0.0-1.0); Blood Urea Nitrogen 9 mg/dL (9-16); Calcium 9.1 mg/dL (8.4-10.2); Carbon Dioxide 28 mmol/L (22-29); Chloride 99 mmol/L (96-108); Estimated Glomerular Filt Rate > 60; Glucose Random 361 mg/dL (60-115); Lipase 21 U/L (8-78); Potassium 3.9 mmol/L (3.3-5.1); Sodium 138 mmol/L (135-145); Total Protein 7.3 g/dL (6.5-8.0)
[2020-10-25 11:26] LABS: Troponin-I High Sensitivity 19.2 ng/L (<3.5-17.0)
[2020-10-25] MEDS: Furosemide 20 MG/2 ML VIAL IVPUSH (11:30)
[2020-10-25] MEDS: Doxycycline Hyclate 100 MG in 0.9 % Sodium Chloride 250 ML 166.67 MG IV (11:35)
[2020-10-25] MEDS: Insulin Regular, Human 100 UNIT/ML 3 ML VIAL IVPUSH (11:35)
[2020-10-25 11:43] LABS: B Type Natriuretic Peptide 640 pg/mL (<100)
[2020-10-25 11:53] LABS: Appearance Urine CLEAR; Color Urine STRAW; Glucose Urine UA >=1000 MG/DL (NEG); Leukocyte Esterase Urine NEG (NEG); Nitrite Urine NEG (NEG); PH 7.5 (5.0-8.0); Specific Gravity - Urine <= 1.005 (1.005-1.025); Urine Blood NEG (NEG); Urine Ketones NEG (NEG); Urine Protein NEG (NEG-TRACE)
[2020-10-25 12:02] LABS: RBC Urine 0 /HPF (0); Squamous Epithelial Cell Urine TRACE /LPF; WBC Urine 0-2 /HPF (0-4)
--- NOTE | 2020-10-25 12:27 | PC.NURSE ---
tried patient on 4L o2, sat dropped to 88%, placed back on venti mask, o2 sat 94% at this time.
[2020-10-25 12:41] LABS: Reflex Lactate? Lactic Acid Added
--- NOTE | 2020-10-25 12:45 | PM.IMHP ---
History of Present Illness Date of Service: 10/25/20 Chief Complaint: Shortness of breath This is a 60-year-old female with a past medical history as outlined below who presents to the emergency room after being referred from her primary care provider's office. She reportedly presented to the PCP's office with complaints of worsening dyspnea for the last 4-5 days. Per documentation from the PCPs note the patient arrived with visible respiratory distress and an oxygen saturation of 82% on 4 L which decreased to 75% by the time the paramedics arrived. Due to these issues, she was referred to the emergency room. To the ED patient was noted to be tachypneic with respiratory distress and accessory muscle use. She was noted to have an oxygen saturation of 82%. She was treated with IV systemic steroids, IV magnesium as well as IV diuretics along with empiric antibiotics. Her oxygen saturation and respiratory distress did not improve and so she was subsequently placed on a Ventimask with improvement in her symptoms and saturations. Patient is seen and examined the emergency room. History is taken with the help of a legal administrative secretary, however despite this the patient remains of vague historian frequently rolling eyes. She does endorse that her symptoms have progressively worsened over the last 4-5 days and that she did in fact feel better after she was discharged from the hospital on 10/11/2020. She endorses noncompliance with her baseline prednisone of 5 mg stating that this does not help her. She also endorses noncompliance with physician recommendations on tobacco cessation, reports using about 6 cigarettes daily. In regards to her CHF history and diuretic use, she does not appear to know whether not she is supposed to be on Lasix. She denies any cough but endorses shortness of breath which is worse in the supine position. She is unsure if she has gained weight but denies lower extremity edema. She denies any chest pain. She denies any fevers or chills. Patient's workup in the emergency room revealed significant hypoxia and respiratory distress common elevated BNP of 640, and high sensitivity troponin which is 19.2 but EKG without any acute ischemic changes appreciated, lactic acidosis of 3.4. She was given the above medications and admission was requested. Review of Systems Review of Systems: General - denies fevers or chills, denies weakness or fatigue, +continual tobacco use HEENT -denies blurred vision, denies headache, denies sore throat Cardiovascular - denies chest pain or palpitations, denies edema, +orthopnea Respiratory - positive for shortness of breath, wheezing; negative cough Gastrointestinal - denies abdominal pain, nausea, vomiting, diarrhea - denies flank pain, denies dysuria, denies frequency or urgency Musculoskeletal - denies back pain, denies hip pain, denies knee pain, denies shoulder pain Neurological - denies any focal weakness or numbness Skin, denies any bruising or redness Psychiatric - denies any suicidal ideation, hallucinations, homicidal ideation Endocrinology - denies intolerance to hot / cold temperatures [facility] Medical History Acute and chronic respiratory failure with hypoxia Acute exacerbation of chronic obstructive pulmonary disease Acute on chronic respiratory failure with hypoxemia Anemia Anxiety Cardiomyopathy Chronic respiratory failure Congestive heart failure COPD (chronic obstructive pulmonary disease) COPD exacerbation Depression Diabetes Essential hypertension HFrEF (heart failure with reduced ejection fraction) HLD (hyperlipidemia) HTN (hypertension) Low back pain Mitral regurgitation Normocytic anemia KELLIE (obstructive sleep apnea) Postmenopausal Respiratory failure, acute Severe chronic obstructive pulmonary disease Supplemental oxygen dependent Tobacco abuse Family History Father No problems noted. Mother Liver cancer Hypertension Surgical History Bilateral ankle fractures History of total abdominal hysterectomy Social History Household Members: None Housing: Apartment Do you presently have visiting nurse or other home services: No Alcohol intake: never Patient Tobacco Use Status: Former Tobacco user Tobacco use type: Cigarette Cigarette Packs Per Day: 1 Cigarettes Per Day: 6 Smoked in Last 30 Days: Yes Second Hand Smoke Exposure: No Use of substances other than those prescribed or required for medical reasons: No Advance Directives: Yes Advance Directives on File: Yes Advance Directives Date on File: 04/30/20 service: No Current occupational status: disabled Meds Allergies Allergy/AdvReac Type Severity Reaction Status Date / Time nicotine [Nicotine] Allergy Unknown ITCHING Verified 05/21/20 10:40 WITH THE PATCHES topiramate Allergy Unknown inadequealte Verified 05/21/20 10:40 response Active Medications: Current Medications Generic Name Dose Route Start Last Admin Trade Name Noram PRN Reason Stop Dose Admin Pharmacy Consult 1 each 10/25/20 10:19 Consult Rx Perform Med Rec MISCELLANE ONCE PRN Consult order Home Medications Medication Instructions Recorded Confirmed Last Taken Type sertraline 200 mg PO DAILY 03/08/20 10/25/20 05/12/20 History trazodone 100 mg PO BEDTIME PRN 03/08/20 10/25/20 05/12/20 History amlodipine 5 mg PO DAILY 10/09/20 10/25/20 Unknown History carvedilol 1 tab PO BID 10/09/20 10/25/20 Unknown History ipratropium-albuterol 1 vial INHALATION QID 10/09/20 10/25/20 Unknown History quetiapine 50 mg PO BID 10/09/20 10/25/20 Unknown History Physical Exam Vital Signs and Narrative: Vital Signs: Last Vital Signs Temp 98.5 F 10/25/20 11:20 Pulse 104 H 10/25/20 11:33 Resp 19 10/25/20 11:33 BP 161/94 H 10/25/20 12:19 Pulse Ox 99 10/25/20 11:33 Oxygen Flow Rate 5 10/25/20 10:20 Body Mass Index 31.3 Const: Other: Constitutional - Awake and Alert,+respiratory distress Eyes - PERRLA, EOMI Cardiovascular - S1S2, RRR, minimal pedal edema Respiratory - scattered wheezing, saturation in the 90s with Ventimask, dropping to 88-90% on 4-5L NC, tachypnea with accessory muscle use Gastrointestinal - NT / ND; +BS; No rebound or guarding - No CVA tenderness Extremities - no calf tenderness bilaterally, no swelling Musculoskeletal - Normal inspection, normal ROM Skin - Warm/Dry Neurological - Alert & oriented x3, No focal deficit Psychological - Appropriate affect Results Labs CBC and Chem 7: 10/25/20 10:35 10/25/20 10:35 Labs: Laboratory Results - last 24 hr 10/25/20 10/25/20 10/25/20 10:35 10:35 10:35 MCV 82.6 MCH 24.3 L MCHC 29.5 L RDW 15.3 Plt Count 181 MPV 10.2 Immature Gran % (Auto) 0.5 H Neut % (Auto) 86.2 H Lymph % (Auto) 10.2 L [place] % (Auto) 2.7 Eos % (Auto) 0.3 Baso % (Auto) 0.1 Lymph # (Auto) 0.9 L [place] # (Auto) 0.2 Eos # (Auto) 0.0 Baso # (Auto) 0.0 Abs Immat Gran (auto) 0.04 H Absolute Neuts (auto) 7.6 Absolute Nucleated RBC 0.000 Nucleated RBC % (auto) 0.0 VBG pH VBG pCO2 VBG pO2 VBG HCO3 VBG O2 Saturation VBG Base Excess Anion Gap 15 Estim Creat Clear Calc 60.0 Estimated GFR > 60 Random Glucose 361 H* Lactic Acid 3.4 H* Calcium 9.1 Magnesium Total Bilirubin 0.4 Direct Bilirubin 0.2 AST 15 ALT 12 Alkaline Phosphatase 154 H Troponin I High Sens B-Natriuretic Peptide Total Protein 7.3 Albumin 4.2 Lipase 21 Urine Color Urine Appearance Urine pH Ur Specific Morgan Urine Protein Urine Glucose (UA) Urine Ketones Urine Blood Urine Nitrite Ur Leukocyte Esterase Urine RBC Urine WBC Ur Squamous Epith Cells Urine Bacteria COVID-19 (ANEL) COVID-19 Clin Com 10/25/20 10/25/20 10/25/20 10:35 10:35 10:35 MCV MCH MCHC RDW Plt Count MPV Immature Gran % (Auto) Neut % (Auto) Lymph % (Auto) [place] % (Auto) Eos % (Auto) Baso % (Auto) Lymph # (Auto) [place] # (Auto) Eos # (Auto) Baso # (Auto) Abs Immat Gran (auto) Absolute Neuts (auto) Absolute Nucleated RBC Nucleated RBC % (auto) VBG pH VBG pCO2 VBG pO2 VBG HCO3 VBG O2 Saturation VBG Base Excess Anion Gap Estim Creat Clear Calc Estimated GFR Random Glucose Lactic Acid Calcium Magnesium 2.0 Total Bilirubin Direct Bilirubin AST ALT Alkaline Phosphatase Troponin I High Sens 19.2 H* D B-Natriuretic Peptide 640 H Total Protein Albumin Lipase Urine Color Urine Appearance Urine pH Ur Specific Morgan Urine Protein Urine Glucose (UA) Urine Ketones Urine Blood Urine Nitrite Ur Leukocyte Esterase Urine RBC Urine WBC Ur Squamous Epith Cells Urine Bacteria COVID-19 (ANEL) Negative COVID-19 Clin Com See Note 10/25/20 10/25/20 10:38 11:46 MCV MCH MCHC RDW Plt Count MPV Immature Gran % (Auto) Neut % (Auto) Lymph % (Auto) [place] % (Auto) Eos % (Auto) Baso % (Auto) Lymph # (Auto) [place] # (Auto) Eos # (Auto) Baso # (Auto) Abs Immat Gran (auto) Absolute Neuts (auto) Absolute Nucleated RBC Nucleated RBC % (auto) VBG pH 7.37 VBG pCO2 57 VBG pO2 36 VBG HCO3 33 H VBG O2 Saturation 51.0 VBG Base Excess 6.6 Anion Gap Estim Creat Clear Calc Estimated GFR Random Glucose Lactic Acid Calcium Magnesium Total Bilirubin Direct Bilirubin AST ALT Alkaline Phosphatase Troponin I High Sens B-Natriuretic Peptide Total Protein Albumin Lipase Urine Color STRAW Urine Appearance CLEAR Urine pH 7.5 Ur Specific Morgan <= 1.005 Urine Protein NEG Urine Glucose (UA) >=1000 H Urine Ketones NEG Urine Blood NEG Urine Nitrite NEG Ur Leukocyte Esterase NEG Urine RBC 0 Urine WBC 0-2 Ur Squamous Epith Cells TRACE Urine Bacteria NONE COVID-19 (ANEL) COVID-19 Clin Com Imaging Radiologist's Impressions: Impressions Chest X-Ray 10/25/20 10:20 IMPRESSION: Cardiomegaly with increased vascularity suggestive of mild congestion. The vascularity is more prominent compared to 10/09/2020. Assessment and Plan (1) Hypoxia: Status: Acute This is a 60-year-old female with a past medical history of chronic respiratory failure with hypoxia on 4 L nasal cannula, COPD, combined systolic and diastolic heart failure with last echo in June 2020 showing an EF of 30-35%, continual tobacco use despite multiple admissions to the hospital who presents to the hospital with acute respiratory distress with hypoxia and is admitted for further workup. 1. Acute on chronic respiratory failure with hypoxia Baseline 3-4 L by nasal cannula currently requiring Ventimask Titrate to her baseline as tolerated Multifactorial including acute COPD exacerbation and acute combined systolic/diastolic heart failure 2. Acute COPD exacerbation Due to noncompliance with her baseline prednisone along with continual tobacco use Will treat her with IV Solu-Medrol and scheduled plus p.r.n. bronchodilators No evidence of superimposed pneumonia at this time, will hold off on further antibiotics 3. Acute on chronic combined systolic/diastolic heart failure Previously reported in the Cardiology notes as as nonischemic cardiomyopathy. Unclear if she is supposed to be on diuretics at home Nonetheless, her BNP is elevated she has some trace pedal edema and her x-ray is consistent with congestion. Will give her empiric IV Lasix. Intake and output. If no improvement will involve cardiology 4. Elevated high sensitivity troponin I She denies any anginal chest pain. Her EKG does not appear to have any acute ischemic changes. Suspect secondary to her respiratory status. Will trend. 5. Lactic acidosis Due to hypoxia and possibly bronchodilators There is no evidence of any infection at this time. 6. Uncontrolled hypertension Unclear if the patient is truly taking her meds at home Observe and use baseline meds. Hold off on up titration 7. Mood Continue her baseline meds 8. Obesity Suspect that this may be contributing to her overall respiratory symptoms. She will need outpatient follow-up with a weight loss program should she agree. 9. Tobacco use disorder continues to smoke despite education about how tobacco effects her COPD / respiratory status. She has been encouraged cessation. NRT offered, which she declines. Full code DVT prophylaxis, will use Xarelto 10 mg daily. HCP - does not name one at this time and infact, she does not want me speaking with any family at this time. Quality Stroke Does the patient have a stroke diagnosis?: No VTE Prior VTE?: No VTE Risk Level:: Medical - moderate - high VTE Device Contraindication: N/A - Device Ordered VTE Drug Contraindication: N/A - Med Ordered
[2020-10-25 13:22] LABS: ~Lactic Acid-LAB USE ONLY 4.5 mmol/L (0.5-2.0)
--- NOTE | 2020-10-25 14:12 | PC.NURSE ---
pt resting quietly in bed. awaiting bed assignment at this time. vitals stable. pt on Venti-mask 55%.
[2020-10-25] MEDS: amLODIPine Besylate 5 MG TABLET PO (14:45)
[2020-10-25 14:57] LABS: Reflex Lactate? 2 Y
[2020-10-25 14:59] LABS: D Dimer < 200 NG/ML
[2020-10-25 15:07] LABS: Glucose, Whole Blood 194 mg/dL (60-115)
[2020-10-25 15:17] LABS: Troponin-I High Sensitivity 23.5 ng/L (<3.5-17.0)
[2020-10-25] MEDS: Albuterol/Iprat 2.5/0.5MG 3 ML AMPUL.NEB INHALE (15:21)
[2020-10-25] MEDS: Rivaroxaban 10 MG TABLET PO (16:13)
[2020-10-25] MEDS: 0.9 % Sodium Chloride Flush 3 ML SYRINGE IVFLUSH ×2 (16:13→20:09)
[2020-10-25 16:25] LABS: Glucose, Whole Blood 219 mg/dL (60-115)
[2020-10-25 16:31] LABS: ~Lactic Acid-LAB USE ONLY 3.5 mmol/L (0.5-2.0)
[2020-10-25] MEDS: methylPREDNISolone Sod Succ 40 MG/ML VIAL IVPUSH (16:59)
[2020-10-25] MEDS: carvediloL 12.5 MG TABLET PO (16:59)
[2020-10-25] MEDS: Furosemide 40 MG/4 ML VIAL IVPUSH (16:59)
--- NOTE | 2020-10-25 17:24 | PC.NURSE ---
Pt arrived to unit titrated venti mask 40% FiO2, SaO2 92-93% rr 22 FC bases SBP 180/x HR 120 STACH 12.5MG coreg given, lasix and steroid also given.
[2020-10-25] MEDS: Acetaminophen 325 MG TABLET 650 MG PO (18:33)
[2020-10-25 19:58] LABS: Glucose, Whole Blood 200 mg/dL (60-115)
[2020-10-25] MEDS: Ipratropium Bromide 0.5 MG/2.5 ML SOLUTION INHALE (20:03)
[2020-10-25] MEDS: Montelukast Sodium 10 MG TABLET PO (20:08)
[2020-10-25] MEDS: QUEtiapine Fumarate 50 MG TABLET PO (20:08)
[2020-10-25] MEDS: Insulin Lispro 100 UNIT/ML 3 ML VIAL SUBCUT (20:08)
[2020-10-26] VITALS (14 sets, daily range): BP systolic 112–183; BP diastolic 65–107; PULSE 87–100; RESP 18–19; TEMP 36.5–37.2; O2SAT 90–96
[2020-10-26] MEDS: methylPREDNISolone Sod Succ 40 MG/ML VIAL IVPUSH ×3 (01:47→17:27)
[2020-10-26 05:44] LABS: Anion Gap 17 (12-20); Blood Urea Nitrogen 14 mg/dL (9-16); Calcium 9.6 mg/dL (8.4-10.2); Carbon Dioxide 29 mmol/L (22-29); Chloride 97 mmol/L (96-108); Creatinine Clr Calc Pharmacy 62.2; Estimated Glomerular Filt Rate > 60; Glucose Random 153 mg/dL (60-115); Potassium 3.9 mmol/L (3.3-5.1); Sodium 139 mmol/L (135-145)
[2020-10-26] MEDS: Omeprazole 20 MG CAPSULE.DR PO (05:57)
[2020-10-26 07:08] LABS: Glucose, Whole Blood 158 mg/dL (60-115)
[2020-10-26] MEDS: Ipratropium Bromide 0.5 MG/2.5 ML SOLUTION INHALE ×4 (07:35→20:07)
[2020-10-26] MEDS: Insulin Lispro 100 UNIT/ML 3 ML VIAL SUBCUT ×2 (08:40→20:19)
[2020-10-26] MEDS: Furosemide 40 MG/4 ML VIAL IVPUSH ×2 (08:41→17:27)
[2020-10-26] MEDS: 0.9 % Sodium Chloride Flush 3 ML SYRINGE IVFLUSH ×2 (08:41→17:26)
[2020-10-26] MEDS: Sertraline HCL 100 MG TABLET 200 MG PO (08:44)
[2020-10-26] MEDS: carvediloL 12.5 MG TABLET PO ×2 (08:45→20:19)
[2020-10-26] MEDS: Rivaroxaban 10 MG TABLET PO (08:45)
[2020-10-26] MEDS: QUEtiapine Fumarate 50 MG TABLET PO ×2 (08:45→20:19)
[2020-10-26] MEDS: amLODIPine Besylate 5 MG TABLET PO ×2 (08:45→13:34)
[2020-10-26] MEDS: Folic Acid 1 MG TABLET PO (08:46)
[2020-10-26] MEDS: lisinopriL 20 MG TABLET PO (08:46)
--- NOTE | 2020-10-26 10:42 | HO.PM.IMPN ---
Subjective Subjective Date of Service: 10/26/20 Interval History: seen and examined this AM still sob and orthopenic non-productive cough ROS General - no fevers or chills Cardiovascular - no chest pain Respiratory - +SOB Abdominal- no abdominal pain, nausea, vomiting, diarrhea Physical Exam Vital Signs: Vital Signs: Last Vital Signs Temp 98.1 F 10/26/20 07:08 Pulse 100 10/26/20 08:46 Resp 18 10/26/20 07:08 BP 183/102 H 10/26/20 08:46 Pulse Ox 92 10/26/20 07:08 Oxygen Flow Rate 5 10/25/20 10:20 Body Mass Index 31.3 Const: Other: Constitutional - Awake and Alert,+respiratory distress Eyes - PERRLA, EOMI Cardiovascular - S1S2, RRR, minimal pedal edema Respiratory - rales, no wheezing today Gastrointestinal - NT / ND; +BS; No rebound or guarding - No CVA tenderness Extremities - no calf tenderness bilaterally, no swelling Musculoskeletal - Normal inspection, normal ROM Skin - Warm/Dry Neurological - Alert & oriented x3, No focal deficit Psychological - Appropriate affect Objective Data Current Medications Generic Name Dose Route Start Last Admin Trade Name Freq PRN Reason Stop Dose Admin Acetaminophen 650 mg 10/25/20 14:26 10/25/20 18:33 Acetaminophen 325 Mg Tablet PO 650 mg Q6H PRN Administration Pain, Mild (Pain Scale 1-3) Amlodipine Besylate 5 mg 10/25/20 15:00 10/26/20 08:45 Amlodipine Besylate 5 Mg Tablet PO 5 mg DAILY [facility] Administration Protocol Carvedilol 12.5 mg 10/25/20 21:00 10/26/20 08:45 Carvedilol 12.5 Mg Tablet PO 12.5 mg BID [facility] Administration Protocol Folic Acid 1 mg 10/26/20 09:00 10/26/20 08:46 Folic Acid 1 Mg Tablet PO 1 mg DAILY [facility] Administration Furosemide 40 mg 10/25/20 18:00 10/26/20 08:41 Furosemide 40 Mg/4 Ml Vial IVPUSH 40 mg BID@0900,1800 [facility] Administration Protocol Insulin Human Lispro 0 unit 10/25/20 21:00 10/26/20 08:40 Insulin Lispro 100 Unit/Ml 3 Ml Vial SUBCUT 2 unit QIDACHS [facility] Administration Protocol Ipratropium [place] 0.5 mg 10/25/20 20:00 10/26/20 07:35 Ipratropium [place] 0.5 Mg/2.5 Ml Solution INHALE 0.5 mg RQ4H WHILE AWAKE [facility]MAR Administration Levalbuterol HCl 1.25 mg 10/25/20 20:00 10/26/20 07:35 Levalbuterol Hcl 1.25 Mg/0.5 Ml Vial.Neb INHALE 1.25 mg RQ4H WHILE AWAKE [facility]MAR Administration Lisinopril 20 mg 10/26/20 09:00 10/26/20 08:46 Lisinopril 20 Mg Tablet PO 20 mg DAILY [facility] Administration Protocol Meclizine HCl 25 mg 10/25/20 14:26 Meclizine Hcl 25 Mg Tablet PO TID PRN dizziness Methylprednisolone Sodium Succinate 40 mg 10/25/20 18:00 10/26/20 08:41 Methylprednisolone Sod Succ 40 Mg/Ml Vial IVPUSH 40 mg Q8H [facility]MAR Administration Montelukast Sodium 10 mg 10/25/20 21:00 10/25/20 20:08 Montelukast Sodium 10 Mg Tablet PO 10 mg BEDTIME [facility] Administration Omeprazole 20 mg 10/26/20 06:30 10/26/20 05:57 Omeprazole 20 Mg Capsule.Dr PO 20 mg DAILY@0630 [facility] Administration Ondansetron HCl 4 mg 10/25/20 14:26 Ondansetron Hcl 4 Mg/2 Ml Vial IVPUSH Q8H PRN Nausea and Vomiting Pharmacy Consult 1 each 10/25/20 10:19 Consult Rx Perform Med Rec MISCELLANE ONCE PRN Consult order Quetiapine Fumarate 50 mg 10/25/20 21:00 10/26/20 08:45 Quetiapine Fumarate 50 Mg Tablet PO 50 mg BID [facility]MAR Administration Rivaroxaban 10 mg 10/25/20 15:00 10/26/20 08:45 Rivaroxaban 10 Mg Tablet PO 10 mg DAILY [facility] Administration Sertraline HCl 200 mg 10/26/20 09:00 10/26/20 08:44 Sertraline Hcl 100 Mg Tablet PO 200 mg DAILY [facility] Administration Sodium Chloride 3 ml 10/25/20 16:00 10/26/20 08:41 0.9 % Sodium Chloride Flush 3 Ml Syringe IVFLUSH 3 ml QSHIFT [facility] Administration Tiotropium [place] 1 puff 10/26/20 08:00 10/26/20 07:35 Tiotropium [place] 18 Mcg Cap.W.Dev INHALE 1 puff RDAILY [facility] Administration Trazodone HCl 100 mg 10/25/20 14:26 Trazodone Hcl 100 Mg Tablet PO BEDTIME PRN Sleep Labs CBC & Chem 7: 10/25/20 10:35 10/26/20 04:45 Labs: Laboratory Results - last 24 hr 10/25/20 10/25/20 10/25/20 10:35 10:35 10:35 WBC 8.8 RBC 4.19 L Hgb 10.2 L Hct 34.6 L MCV 82.6 MCH 24.3 L MCHC 29.5 L RDW 15.3 Plt Count 181 MPV 10.2 Immature Gran % (Auto) 0.5 H Neut % (Auto) 86.2 H Lymph % (Auto) 10.2 L [place] % (Auto) 2.7 Eos % (Auto) 0.3 Baso % (Auto) 0.1 Lymph # (Auto) 0.9 L [place] # (Auto) 0.2 Eos # (Auto) 0.0 Baso # (Auto) 0.0 Abs Immat Gran (auto) 0.04 H Absolute Neuts (auto) 7.6 Absolute Nucleated RBC 0.000 Nucleated RBC % (auto) 0.0 D-Dimer VBG pH VBG pCO2 VBG pO2 VBG HCO3 VBG O2 Saturation VBG Base Excess Sodium 138 Potassium 3.9 Chloride 99 Carbon Dioxide 28 Anion Gap 15 BUN 9 Creatinine 0.86 Estim Creat Clear Calc 60.0 Estimated GFR > 60 POC Glucose Random Glucose 361 H* Lactic Acid 3.4 H* Lactic Acid Fup @ 2Hr Lactic Acid Fup @ 4Hr Calcium 9.1 Magnesium Total Bilirubin 0.4 Direct Bilirubin 0.2 AST 15 ALT 12 Alkaline Phosphatase 154 H Troponin I High Sens B-Natriuretic Peptide Total Protein 7.3 Albumin 4.2 Lipase 21 Specimen Comment Urine Color Urine Appearance Urine pH Ur Specific [place] Urine Protein Urine Glucose (UA) Urine Ketones Urine Blood Urine Nitrite Ur Leukocyte Esterase Urine RBC Urine WBC Ur Squamous Epith Cells Urine Bacteria COVID-19 (ANEL) COVID-19 Clin Com 10/25/20 10/25/20 10/25/20 10:35 10:35 10:35 WBC RBC Hgb Hct MCV MCH MCHC RDW Plt Count MPV Immature Gran % (Auto) Neut % (Auto) Lymph % (Auto) [place] % (Auto) Eos % (Auto) Baso % (Auto) Lymph # (Auto) [place] # (Auto) Eos # (Auto) Baso # (Auto) Abs Immat Gran (auto) Absolute Neuts (auto) Absolute Nucleated RBC Nucleated RBC % (auto) D-Dimer VBG pH VBG pCO2 VBG pO2 VBG HCO3 VBG O2 Saturation VBG Base Excess Sodium Potassium Chloride Carbon Dioxide Anion Gap BUN Creatinine Estim Creat Clear Calc Estimated GFR POC Glucose Random Glucose Lactic Acid Lactic Acid Fup @ 2Hr Lactic Acid Fup @ 4Hr Calcium Magnesium 2.0 Total Bilirubin Direct Bilirubin AST ALT Alkaline Phosphatase Troponin I High Sens 19.2 H* D B-Natriuretic Peptide 640 H Total Protein Albumin Lipase Specimen Comment Urine Color Urine Appearance Urine pH Ur Specific [place] Urine Protein Urine Glucose (UA) Urine Ketones Urine Blood Urine Nitrite Ur Leukocyte Esterase Urine RBC Urine WBC Ur Squamous Epith Cells Urine Bacteria COVID-19 (ANEL) Negative COVID-19 Clin Com See Note 10/25/20 10/25/20 10/25/20 10:38 11:46 12:54 WBC RBC Hgb Hct MCV MCH MCHC RDW Plt Count MPV Immature Gran % (Auto) Neut % (Auto) Lymph % (Auto) [place] % (Auto) Eos % (Auto) Baso % (Auto) Lymph # (Auto) [place] # (Auto) Eos # (Auto) Baso # (Auto) Abs Immat Gran (auto) Absolute Neuts (auto) Absolute Nucleated RBC Nucleated RBC % (auto) D-Dimer VBG pH 7.37 VBG pCO2 57 VBG pO2 36 VBG HCO3 33 H VBG O2 Saturation 51.0 VBG Base Excess 6.6 Sodium Potassium Chloride Carbon Dioxide Anion Gap BUN Creatinine Estim Creat Clear Calc Estimated GFR POC Glucose Random Glucose Lactic Acid Lactic Acid Fup @ 2Hr 4.5 H* Lactic Acid Fup @ 4Hr Calcium Magnesium Total Bilirubin Direct Bilirubin AST ALT Alkaline Phosphatase Troponin I High Sens B-Natriuretic Peptide Total Protein Albumin Lipase Specimen Comment Urine Color STRAW Urine Appearance CLEAR Urine pH 7.5 Ur Specific [place] <= 1.005 Urine Protein NEG Urine Glucose (UA) >=1000 H Urine Ketones NEG Urine Blood NEG Urine Nitrite NEG Ur Leukocyte Esterase NEG Urine RBC 0 Urine WBC 0-2 Ur Squamous Epith Cells TRACE Urine Bacteria NONE COVID-19 (ANEL) COVID-19 [employer] Com 10/25/20 10/25/20 10/25/20 14:34 14:43 15:04 WBC RBC Hgb Hct MCV MCH MCHC RDW Plt Count MPV Immature Gran % (Auto) Neut % (Auto) Lymph % (Auto) [place] % (Auto) Eos % (Auto) Baso % (Auto) Lymph # (Auto) [place] # (Auto) Eos # (Auto) Baso # (Auto) Abs Immat Gran (auto) Absolute Neuts (auto) Absolute Nucleated RBC Nucleated RBC % (auto) D-Dimer < 200 VBG pH VBG pCO2 VBG pO2 VBG HCO3 VBG O2 Saturation VBG Base Excess Sodium Potassium Chloride Carbon Dioxide Anion Gap BUN Creatinine Estim Creat Clear Calc Estimated GFR POC Glucose 194 H Random Glucose Lactic Acid Lactic Acid Fup @ 2Hr Lactic Acid Fup @ 4Hr Calcium Magnesium Total Bilirubin Direct Bilirubin AST ALT Alkaline Phosphatase Troponin I High Sens 23.5 H* B-Natriuretic Peptide Total Protein Albumin Lipase Specimen Comment Urine Color Urine Appearance Urine pH Ur Specific [place] Urine Protein Urine Glucose (UA) Urine Ketones Urine Blood Urine Nitrite Ur Leukocyte Esterase Urine RBC Urine WBC Ur Squamous Epith Cells Urine Bacteria COVID-19 (ANEL) COVID-19 [employer] 10/25/20 10/25/20 10/25/20 15:20 16:21 16:23 WBC RBC Hgb Hct MCV MCH MCHC RDW Plt Count MPV Immature Gran % (Auto) Neut % (Auto) Lymph % (Auto) [place] % (Auto) Eos % (Auto) Baso % (Auto) Lymph # (Auto) [place] # (Auto) Eos # (Auto) Baso # (Auto) Abs Immat Gran (auto) Absolute Neuts (auto) Absolute Nucleated RBC Nucleated RBC % (auto) D-Dimer VBG pH VBG pCO2 VBG pO2 VBG HCO3 VBG O2 Saturation VBG Base Excess Sodium Potassium Chloride Carbon Dioxide Anion Gap BUN Creatinine Estim Creat Clear Calc Estimated GFR POC Glucose 219 H Random Glucose Lactic Acid Lactic Acid Fup @ 2Hr Lactic Acid Fup @ 4Hr 3.5 H* Calcium Magnesium Total Bilirubin Direct Bilirubin AST ALT Alkaline Phosphatase Troponin I High Sens B-Natriuretic Peptide Total Protein Albumin Lipase Specimen Comment Cancelled Urine Color Urine Appearance Urine pH Ur Specific [place] Urine Protein Urine Glucose (UA) Urine Ketones Urine Blood Urine Nitrite Ur Leukocyte Esterase Urine RBC Urine WBC Ur Squamous Epith Cells Urine Bacteria COVID-19 (ANEL) COVID-19 Clin Com 10/25/20 10/26/20 10/26/20 19:54 04:45 06:56 WBC RBC Hgb Hct MCV MCH MCHC RDW Plt Count MPV Immature Gran % (Auto) Neut % (Auto) Lymph % (Auto) [place] % (Auto) Eos % (Auto) Baso % (Auto) Lymph # (Auto) [place] # (Auto) Eos # (Auto) Baso # (Auto) Abs Immat Gran (auto) Absolute Neuts (auto) Absolute Nucleated RBC Nucleated RBC % (auto) D-Dimer VBG pH VBG pCO2 VBG pO2 VBG HCO3 VBG O2 Saturation VBG Base Excess Sodium 139 Potassium 3.9 Chloride 97 Carbon Dioxide 29 Anion Gap 17 BUN 14 D Creatinine 0.83 Estim Creat Clear Calc 62.2 Estimated GFR > 60 POC Glucose 200 H 158 H Random Glucose 153 H D Lactic Acid Lactic Acid Fup @ 2Hr Lactic Acid Fup @ 4Hr Calcium 9.6 Magnesium Total Bilirubin Direct Bilirubin AST ALT Alkaline Phosphatase Troponin I High Sens B-Natriuretic Peptide Total Protein Albumin Lipase Specimen Comment Urine Color Urine Appearance Urine pH Ur Specific [place] Urine Protein Urine Glucose (UA) Urine Ketones Urine Blood Urine Nitrite Ur Leukocyte Esterase Urine RBC Urine WBC Ur Squamous Epith Cells Urine Bacteria COVID-19 (ANEL) COVID-19 Clin Com Quality Stroke Does the patient have a stroke diagnosis?: No VTE Prior VTE?: No VTE Risk Level:: Medical - moderate - high VTE Device Contraindication: N/A - Device Ordered VTE Drug Contraindication: N/A - Med Ordered Assessment and Plan (1) Hypoxia: Status: Acute Assessment and Plan: This is a 60-year-old female with a past medical history of chronic respiratory failure with hypoxia on 4 L nasal cannula, COPD, combined systolic and diastolic heart failure with last echo in June 2020 showing an EF of 30-35%, continual tobacco use despite multiple admissions to the hospital who presents to the hospital with acute respiratory distress with hypoxia and is admitted for further workup. 1. Acute on chronic respiratory failure with hypoxia improving, now on NC due to COPD and CHF 2. Acute on chronic combined systolic/diastolic heart failure ? related to uncontrolled HTN continue IV lasix, will involve cardiology 3. Acute COPD exacerbation slowly improving taper IV steroids, start prednisone tomorrow continue bronchodilators 4. Elevated high sensitivity troponin I [place] denies cp 5. Lactic acidosis Due to hypoxia and possibly bronchodilators There is no evidence of any infection at this time. 6. Uncontrolled hypertension Improved after BP meds yesterda, continue the same for now, may need to uptitrate 7. Mood Continue her baseline meds 8. Obesity Suspect that this may be contributing to her overall respiratory symptoms. She will need outpatient follow-up with a weight loss program should she agree. 9. Tobacco use disorder continues to smoke despite education about how tobacco effects her COPD / respiratory status. She has been encouraged cessation. NRT offered, which she declines. Full code DVT prophylaxis, will use Xarelto 10 mg daily. HCP - does not name one at this time and infact, she does not want me speaking with any family at this time.
[2020-10-26 11:30] LABS: Glucose, Whole Blood 149 mg/dL (60-115)
--- NOTE | 2020-10-26 12:27 | P.CONCA_ITS ---
History of Present Illness History of Present Illness Date of Service: 10/26/20 Requesting physician: Amor George Chief complaint: Hypoxic respiratory failure Narrative: 60-year-old female past medical history significant for COPD, anemia, cardiomyopathy, chronic heart failure, depression over diabetes, obstructive sleep apnea, mitral regurgitation and hypertension. She is presenting with shortness of breath and hypoxia. She was seen in her primary care physician's office for shortness of breath and was admitted from there. She is saying that she has been feeling short of breath for couple of weeks. She is complaining of orthopnea. She was started on treatment for COPD and was also given IV diuretics with concern for heart failure. Her blood pressure was elevated and we were asked to see her for heart failure and high blood pressure. She is saying she is feeling better after treatments for COPD and Lasix. She does not feel that she is back to normal yet. [facility] Past Medical History Medical History (Updated 10/26/20 @ 22:36 by Kemar Curry MD) Acute and chronic respiratory failure with hypoxia Acute exacerbation of chronic obstructive pulmonary disease Acute on chronic respiratory failure with hypoxemia Anemia Anxiety Cardiomyopathy Chronic respiratory failure Congestive heart failure COPD (chronic obstructive pulmonary disease) COPD exacerbation Depression Diabetes Essential hypertension HFrEF (heart failure with reduced ejection fraction) HLD (hyperlipidemia) HTN (hypertension) Low back pain Mitral regurgitation Normocytic anemia KELLIE (obstructive sleep apnea) Postmenopausal Respiratory failure, acute Severe chronic obstructive pulmonary disease Supplemental oxygen dependent Tobacco abuse Family History Family History Father No problems noted. Mother Liver cancer Hypertension Surgical History Surgical History Bilateral ankle fractures History of total abdominal hysterectomy Social History Social History Household Members: Family Housing: House Do you presently have visiting nurse or other home services: No Alcohol intake: never Patient Tobacco Use Status: Former Tobacco user Tobacco use type: Cigarette Cigarette Packs Per Day: 1 Cigarettes Per Day: 6 Smoked in Last 30 Days: Yes Second Hand Smoke Exposure: No Use of substances other than those prescribed or required for medical reasons: No Currently Displaying Signs/Symptoms of Drug Intoxication Withdrawal: No Have you been hit, kicked, punched, or otherwise hurt by someone within the past year? If so, by whom?: No Do you feel safe in your current relationship?: Yes Is there a partner from a previous relationship who is making you feel unsafe now?: No Are you made to feel afraid or neglected: No Advance Directives: Yes Advance Directives on File: Yes Advance Directives Date on File: 04/30/20 Do you have thoughts of harming others: None Do you have a plan to hurt others: No Plan Recently lost weight without trying: No Eating poorly because of decreased appetite: No Nutrition Risks: No Nutritional Risk Patient : No : No Poor oral hygiene: No service: No Current occupational status: unemployed, retired and disabled Meds Allergies Allergy/AdvReac Type Severity Reaction Status Date / Time nicotine [Nicotine] Allergy Unknown ITCHING Verified 05/21/20 10:40 WITH THE PATCHES topiramate Allergy Unknown inadequealte Verified 05/21/20 10:40 response Active Medications: Current Medications Generic Name Dose Route Start Last Admin Trade Name Freq PRN Reason Stop Dose Admin Acetaminophen 650 mg 10/25/20 14:26 10/25/20 18:33 Acetaminophen 325 Mg Tablet PO 650 mg Q6H PRN Administration Pain, Mild (Pain Scale 1-3) Amlodipine Besylate 5 mg 10/26/20 12:26 Amlodipine Besylate 5 Mg Tablet PO 10/26/20 12:27 ONCE ONE Protocol Carvedilol 12.5 mg 10/25/20 21:00 10/26/20 08:45 Carvedilol 12.5 Mg Tablet PO 12.5 mg BID [facility]MAR Administration Protocol Folic Acid 1 mg 10/26/20 09:00 10/26/20 08:46 Folic Acid 1 Mg Tablet PO 1 mg DAILY [facility] Administration Furosemide 40 mg 10/25/20 18:00 10/26/20 08:41 Furosemide 40 Mg/4 Ml Vial IVPUSH 40 mg BID@0900,1800 [facility] Administration Protocol Insulin Human Lispro 0 unit 10/25/20 21:00 10/26/20 11:30 Insulin Lispro 100 Unit/Ml 3 Ml Vial SUBCUT Not Given QIDACHS [facility]AL[facility]MAR Protocol Ipratropium [place] 0.5 mg 10/25/20 20:00 10/26/20 11:08 Ipratropium [place] 0.5 Mg/2.5 Ml Solution INHALE 0.5 mg RQ4H WHILE AWAKE [facility]MAR Administration Levalbuterol HCl 1.25 mg 10/25/20 20:00 10/26/20 11:08 Levalbuterol Hcl 1.25 Mg/0.5 Ml Vial.Neb INHALE 1.25 mg RQ4H WHILE AWAKE [facility]MAR Administration Lisinopril 20 mg 10/26/20 09:00 10/26/20 08:46 Lisinopril 20 Mg Tablet PO 20 mg DAILY [facility] Administration Protocol Meclizine HCl 25 mg 10/25/20 14:26 Meclizine Hcl 25 Mg Tablet PO TID PRN dizziness Methylprednisolone Sodium Succinate 40 mg 10/25/20 18:00 10/26/20 08:41 Methylprednisolone Sod Succ 40 Mg/Ml Vial IVPUSH 40 mg Q8H [facility]MAR Administration Montelukast Sodium 10 mg 10/25/20 21:00 10/25/20 20:08 Montelukast Sodium 10 Mg Tablet PO 10 mg BEDTIME [facility] Administration Omeprazole 20 mg 10/26/20 06:30 10/26/20 05:57 Omeprazole 20 Mg Capsule.Dr PO 20 mg DAILY@0630 [facility]MAR Administration Ondansetron HCl 4 mg 10/25/20 14:26 Ondansetron Hcl 4 Mg/2 Ml Vial IVPUSH Q8H PRN Nausea and Vomiting Pharmacy Consult 1 each 10/25/20 10:19 Consult Rx Perform Med Rec MISCELLANE ONCE PRN Consult order Quetiapine Fumarate 50 mg 10/25/20 21:00 10/26/20 08:45 Quetiapine Fumarate 50 Mg Tablet PO 50 mg BID WALDEAMR Administration Rivaroxaban 10 mg 10/25/20 15:00 10/26/20 08:45 Rivaroxaban 10 Mg Tablet PO 10 mg DAILY [facility] Administration Sertraline HCl 200 mg 10/26/20 09:00 10/26/20 08:44 Sertraline Hcl 100 Mg Tablet PO 200 mg DAILY [facility] Administration Sodium Chloride 3 ml 10/25/20 16:00 10/26/20 08:41 0.9 % Sodium Chloride Flush 3 Ml Syringe IVFLUSH 3 ml QSHIFT WALDEMAR Administration Tiotropium [place] 1 puff 10/26/20 08:00 10/26/20 07:35 Tiotropium [place] 18 Mcg Cap.W.Dev INHALE 1 puff RDAILY [facility]MAR Administration Trazodone HCl 100 mg 10/25/20 14:26 Trazodone Hcl 100 Mg Tablet PO BEDTIME PRN Sleep Home Medications Medication Instructions Recorded Confirmed Last Taken Type sertraline 200 mg PO DAILY 03/08/20 10/25/20 05/12/20 History trazodone 100 mg PO BEDTIME PRN 03/08/20 10/25/20 05/12/20 History amlodipine 5 mg PO DAILY 10/09/20 10/25/20 Unknown History carvedilol 1 tab PO BID 10/09/20 10/25/20 Unknown History ipratropium-albuterol 1 vial INHALATION QID 10/09/20 10/25/20 Unknown History quetiapine 50 mg PO BID 10/09/20 10/25/20 Unknown History Physical Exam Vital Signs: Vital Signs: Last Vital Signs Temp 98.1 F 10/26/20 11:53 Pulse 89 10/26/20 11:53 Resp 18 10/26/20 11:53 BP 164/101 H 10/26/20 11:53 Pulse Ox 90 L 10/26/20 11:53 Oxygen Flow Rate 5 10/25/20 10:20 Body Mass Index 31.3 GENERAL APPEARANCE: in no acute distress, pleasant. NECK: no carotid bruit, no jugular venous distention. SKIN: no suspicious lesions, warm and dry. HEART: no murmurs, regular rate and rhythm. LUNGS: Bilateral crackles. ABDOMEN: soft, nontender. EXTREMITIES: no edema. PERIPHERAL PULSES: equal. NEUROLOGIC: No gross deficits, AAO X 3 Results Labs and Meds Result diagrams: 10/25/20 10:35 10/26/20 04:45 Lab results: Laboratory Results - last 24 hr 10/25/20 10/25/20 10/25/20 12:54 14:34 14:43 D-Dimer < 200 Sodium Potassium Chloride Carbon Dioxide Anion Gap BUN Creatinine Estim Creat Clear Calc Estimated GFR POC Glucose Random Glucose Lactic Acid Fup @ 2Hr 4.5 H* Lactic Acid Fup @ 4Hr Calcium Troponin I High Sens 23.5 H* Specimen Comment 10/25/20 10/25/20 10/25/20 15:04 15:20 16:21 D-Dimer Sodium Potassium Chloride Carbon Dioxide Anion Gap BUN Creatinine Estim Creat Clear Calc Estimated GFR POC Glucose 194 H 219 H Random Glucose Lactic Acid Fup @ 2Hr Lactic Acid Fup @ 4Hr 3.5 H* Calcium Troponin I High Sens Specimen Comment 10/25/20 10/25/20 10/26/20 16:23 19:54 04:45 D-Dimer Sodium 139 Potassium 3.9 Chloride 97 Carbon Dioxide 29 Anion Gap 17 BUN 14 D Creatinine 0.83 Estim Creat Clear Calc 62.2 Estimated GFR > 60 POC Glucose 200 H Random Glucose 153 H D Lactic Acid Fup @ 2Hr Lactic Acid Fup @ 4Hr Calcium 9.6 Troponin I High Sens Specimen Comment Cancelled 10/26/20 10/26/20 06:56 11:23 D-Dimer Sodium Potassium Chloride Carbon Dioxide Anion Gap BUN Creatinine Estim Creat Clear Calc Estimated GFR POC Glucose 158 H 149 H Random Glucose Lactic Acid Fup @ 2Hr Lactic Acid Fup @ 4Hr Calcium Troponin I High Sens Specimen Comment Assessment and Plan (1) Congestive heart failure: Qualifiers: Heart failure chronicity: acute on chronic Heart failure type: systolic Qualified Code(s): I50.23 - Acute on chronic systolic (congestive) heart failure Status: Inactive (2) HTN (hypertension): Qualifiers: Hypertension type: essential hypertension Qualified Code(s): I10 - Essential (primary) hypertension Status: Inactive Pleasant 60-year-old female here for shortness of breath and hypoxia. Clinically she is in heart failure. She has known history of cardiomyopathy EF 30 35% based on echocardiogram from June 2020. Blood pressure is elevated and is likely cause for decompensation. Agree with IV diuretics at this stage. Increase amlodipine from 5 to 10 mg and add isosorbide 30 mg once a day. We will see how she responds to this regimen in addition to her medications. Continue treatment for COPD also. Thank you for allowing me to participate in the care of your patient. Please feel free to contact me if you have any questions. Procedures Date of Service Date of Service: 10/26/20
[2020-10-26] MEDS: Isosorbide Mononitrate 30 MG TAB.ER.24H PO (13:35)
--- NOTE | 2020-10-26 13:56 | MHC.CM.PN ---
CM MET WITH PT WITH THE ASSISTANCE OF [facility]. PT REPORTS SHE LIVES ALONE AND HER DAUGHTER PROVIDES HER ONE HOUR A DAY OF COIL MAKER SERVICES THURSDAY THROUGH THURSDAY. PT ALSO REPORTS BEING ACTIVE WITH [employer] FOR ASSISTED SERVICES. PT HAS HOME OXYGEN BUT REPORTS SHE IS NOT GETTING GOOD SERVICE FROM THE COMPANY WHO MANAGES IT. SHE REPORTS SHE HAS TOLD THEM THE [employer]AN[employer] GET HOT AND ASKED FOR A LONGER LINE SHE CANNOT REACH ALL AREAS OF HER HOME, HOWEVER THEY DO NOT RESPOND. PT REPORTS SHE DOES HAVE A PORTABLE TANK THAT SHE USES TO GO TO MD APPOINTMENTS BUT SHE SAYS IT DOES NOT LAST VERY LONG. PT REPORTS HER PCP IS KENJI PETERSON. PT HAS A HCP ON FILE. CURRENT DC PLAN IS HOME WITH RESUMPTION OF COIL MAKER AND [employer] SERVICES PT WILL NEED A CHAIR VAN AT [place]
[2020-10-26 16:30] LABS: Glucose, Whole Blood 140 mg/dL (60-115)
[2020-10-26 20:14] LABS: Glucose, Whole Blood 233 mg/dL (60-115)
[2020-10-26] MEDS: Montelukast Sodium 10 MG TABLET PO (20:19)
[2020-10-27] VITALS (15 sets, daily range): BP systolic 114–152; BP diastolic 69–91; PULSE 79–97; RESP 18–20; TEMP 35.9–36.6; O2SAT 96–100
[2020-10-27] MEDS: 0.9 % Sodium Chloride Flush 3 ML SYRINGE IVFLUSH ×3 (01:44→17:00)
[2020-10-27] MEDS: methylPREDNISolone Sod Succ 40 MG/ML VIAL IVPUSH ×3 (03:16→17:00)
[2020-10-27] MEDS: Omeprazole 20 MG CAPSULE.DR PO (05:58)
[2020-10-27] MEDS: Ipratropium Bromide 0.5 MG/2.5 ML SOLUTION INHALE ×4 (07:17→19:45)
[2020-10-27 07:34] LABS: Glucose, Whole Blood 161 mg/dL (60-115)
[2020-10-27 07:38] LABS: Anion Gap 14 (12-20); Blood Urea Nitrogen 39 mg/dL (9-16); Calcium 9.2 mg/dL (8.4-10.2); Carbon Dioxide 31 mmol/L (22-29); Chloride 99 mmol/L (96-108); Creatinine Clr Calc Pharmacy 54.9; Estimated Glomerular Filt Rate > 60; Glucose Random 138 mg/dL (60-115); Potassium 4.1 mmol/L (3.3-5.1); Sodium 140 mmol/L (135-145)
[2020-10-27] MEDS: QUEtiapine Fumarate 50 MG TABLET PO ×2 (07:55→20:58)
[2020-10-27] MEDS: lisinopriL 20 MG TABLET PO (07:55)
[2020-10-27] MEDS: Folic Acid 1 MG TABLET PO (07:55)
[2020-10-27] MEDS: Insulin Lispro 100 UNIT/ML 3 ML VIAL SUBCUT ×4 (07:55→20:58)
[2020-10-27] MEDS: Sertraline HCL 100 MG TABLET 200 MG PO (07:55)
[2020-10-27] MEDS: Furosemide 40 MG/4 ML VIAL IVPUSH ×2 (07:56→17:00)
[2020-10-27] MEDS: carvediloL 12.5 MG TABLET PO ×2 (07:56→20:59)
[2020-10-27] MEDS: Rivaroxaban 10 MG TABLET PO (07:56)
[2020-10-27] MEDS: Isosorbide Mononitrate 30 MG TAB.ER.24H PO (07:56)
[2020-10-27] MEDS: amLODIPine Besylate 5 MG TABLET 10 MG PO (07:56)
[2020-10-27 11:08] LABS: Glucose, Whole Blood 206 mg/dL (60-115)
--- NOTE | 2020-10-27 11:46 | PM.PNCARD ---
Subjective Subjective Date of Service: 10/27/20 Interval history: she is feeling better today. Blood pressure is still elevated. Physical Exam Vital Signs: Last Vital Signs Temp 97.2 F 10/27/20 07:35 Pulse 92 10/27/20 11:09 Resp 20 10/27/20 07:35 BP 152/85 H 10/27/20 07:56 Pulse Ox 98 10/27/20 07:35 Oxygen Flow Rate 5 10/25/20 10:20 Body Mass Index 31.3 GENERAL APPEARANCE: in no acute distress, pleasant. NECK: no carotid bruit, no jugular venous distention. SKIN: no suspicious lesions, warm and dry. HEART: no murmurs, regular rate and rhythm. LUNGS: Bilateral crackles. ABDOMEN: soft, nontender. EXTREMITIES: no edema. PERIPHERAL PULSES: equal. NEUROLOGIC: No gross deficits, AAO X 3 Results Labs and Meds Result diagrams: 10/25/20 10:35 10/27/20 05:46 Lab results: Laboratory Results - last 24 hr 10/26/20 10/26/20 10/27/20 16:23 20:07 05:46 Sodium 140 Potassium 4.1 Chloride 99 Carbon Dioxide 31 H Anion Gap 14 BUN 39 H D Creatinine 0.94 Estim Creat Clear Calc 54.9 Estimated GFR > 60 POC Glucose 140 H 233 H Random Glucose 138 H Calcium 9.2 10/27/20 10/27/20 07:27 11:04 Sodium Potassium Chloride Carbon Dioxide Anion Gap BUN Creatinine Estim Creat Clear Calc Estimated GFR POC Glucose 161 H 206 H Random Glucose Calcium Progress Note: A&P Assessment and plan (1) Acute on chronic congestive heart failure: Status: Acute Assessment and Plan: 60 year female with known cardiomyopathy with EF of 30 35% presenting for shortness of breath and hypoxia. She was treated for COPD exacerbation and was also noticed to be in heart failure. She has been on IV diuretics. Blood pressure control has been poor. Amlodipine was increased to 10 mg once a day. Isosorbide 30 mg once a day was added. I think she ideally should be on Entresto. She is on lisinopril and there is an interaction between lisinopril and Entresto. I am stopping the lisinopril and starting her on losartan 50 mg once a day. we will start her on Entresto in few days. continue with IV diuretics today. She still has crackles on examination. Difficult to say how much of these are due to lung disease. In any case tomorrow we can change her to oral diuretics. Thank you for allowing me to participate in the care of your patient. Please feel free to contact me if you have any questions. Fall Risk Details Current Medications: Current Medications Generic Name Dose Route Start Last Admin Trade Name Norma PRN Reason Stop Dose Admin Acetaminophen 650 mg 10/25/20 14:26 10/25/20 18:33 Acetaminophen 325 Mg Tablet PO 650 mg Q6H PRN Administration Pain, Mild (Pain Scale 1-3) Amlodipine Besylate 10 mg 10/27/20 09:00 10/27/20 07:56 Amlodipine Besylate 5 Mg Tablet PO 10 mg DAILY [facility] Administration Protocol Carvedilol 12.5 mg 10/25/20 21:00 10/27/20 07:56 Carvedilol 12.5 Mg Tablet PO 12.5 mg BID [facility]MAR Administration Protocol Folic Acid 1 mg 10/26/20 09:00 10/27/20 07:55 Folic Acid 1 Mg Tablet PO 1 mg DAILY [facility] Administration Furosemide 40 mg 10/25/20 18:00 10/27/20 07:56 Furosemide 40 Mg/4 Ml Vial IVPUSH 40 mg BID@0900,1800 [facility] Administration Protocol Insulin Human Lispro 0 unit 10/25/20 21:00 10/27/20 11:35 Insulin Lispro 100 Unit/Ml 3 Ml Vial SUBCUT 4 unit QIDACHS [facility] Administration Protocol Ipratropium [place] 0.5 mg 10/25/20 20:00 10/27/20 11:08 Ipratropium [place] 0.5 Mg/2.5 Ml Solution INHALE 0.5 mg RQ4H WHILE AWAKE [facility]MAR Administration Isosorbide Mononitrate 30 mg 10/26/20 12:30 10/27/20 07:56 Isosorbide Mononitrate 30 Mg Tab.Er.24h PO 30 mg DAILY [facility]MAR Administration Protocol Levalbuterol HCl 1.25 mg 10/25/20 20:00 10/27/20 11:08 Levalbuterol Hcl 1.25 Mg/0.5 Ml Vial.Neb INHALE 1.25 mg RQ4H WHILE AWAKE [facility]MAR Administration Losartan Potassium 50 mg 10/27/20 11:45 Losartan Potassium 50 Mg Tablet PO DAILY [facility] Protocol Meclizine HCl 25 mg 10/25/20 14:26 Meclizine Hcl 25 Mg Tablet PO TID PRN dizziness Methylprednisolone Sodium Succinate 40 mg 10/25/20 18:00 10/27/20 10:19 Methylprednisolone Sod Succ 40 Mg/Ml Vial IVPUSH 40 mg Q8H [facility] Administration Montelukast Sodium 10 mg 10/25/20 21:00 10/26/20 20:19 Montelukast Sodium 10 Mg Tablet PO 10 mg BEDTIME [facility] Administration Omeprazole 20 mg 10/26/20 06:30 10/27/20 05:58 Omeprazole 20 Mg Capsule.Dr PO 20 mg DAILY@0630 [facility] Administration Ondansetron HCl 4 mg 10/25/20 14:26 Ondansetron Hcl 4 Mg/2 Ml Vial IVPUSH Q8H PRN Nausea and Vomiting Pharmacy Consult 1 each 10/25/20 10:19 Consult Rx Perform Med Rec MISCELLANE ONCE PRN Consult order Quetiapine Fumarate 50 mg 10/25/20 21:00 10/27/20 07:55 Quetiapine Fumarate 50 Mg Tablet PO 50 mg BID [facility] Administration Rivaroxaban 10 mg 10/25/20 15:00 10/27/20 07:56 Rivaroxaban 10 Mg Tablet PO 10 mg DAILY [facility] Administration Sertraline HCl 200 mg 10/26/20 09:00 10/27/20 07:55 Sertraline Hcl 100 Mg Tablet PO 200 mg DAILY [facility] Administration Sodium Chloride 3 ml 10/25/20 16:00 10/27/20 07:58 0.9 % Sodium Chloride Flush 3 Ml Syringe IVFLUSH 3 ml QSHIFT [facility] Administration Tiotropium [place] 1 puff 10/26/20 08:00 10/27/20 07:18 Tiotropium [place] 18 Mcg Cap.W.Dev INHALE 1 puff RDAILY [facility] Administration Trazodone HCl 100 mg 10/25/20 14:26 Trazodone Hcl 100 Mg Tablet PO BEDTIME PRN Sleep Time Spent With Patient Time: Total time spent is greater than 50% in coordination of care (as documented) at patient's floor/unit and/or counseling patient: Time with patient: 15 - 24 minutes Progress Note: Quality Stroke Does the patient have a stroke diagnosis?: No Procedures Date of Service Date of Service: 10/27/20
--- NOTE | 2020-10-27 12:27 | P.PNIM_ITS ---
Subjective Subjective Date of Service: 10/27/20 Interval History: Follow up SOB and heart failure Feeling better but still wth some shortness of breath Physical Exam Vital Signs: Vital Signs: Last Vital Signs Temp 96.6 F L 10/27/20 11:53 Pulse 85 10/27/20 11:53 Resp 18 10/27/20 11:53 BP 114/69 10/27/20 11:53 Pulse Ox 100 10/27/20 11:53 Oxygen Flow Rate 5 10/25/20 10:20 Body Mass Index 31.3 Appearing in no acute distress lung sounds rales throughout heart regular rate rhythm, clear S1, S2 positive bowel sounds, abdomen is soft, nontender neuro patient is alert x3, no focal deficits Objective Data Current Medications Generic Name Dose Route Start Last Admin Trade Name Vincentq PRN Reason Stop Dose Admin Acetaminophen 650 mg 10/25/20 14:26 10/25/20 18:33 Acetaminophen 325 Mg Tablet PO 650 mg Q6H PRN Administration Pain, Mild (Pain Scale 1-3) Amlodipine Besylate 10 mg 10/27/20 09:00 10/27/20 07:56 Amlodipine Besylate 5 Mg Tablet PO 10 mg DAILY [facility] Administration Protocol Carvedilol 12.5 mg 10/25/20 21:00 10/27/20 07:56 Carvedilol 12.5 Mg Tablet PO 12.5 mg BID [facility] Administration Protocol Folic Acid 1 mg 10/26/20 09:00 10/27/20 07:55 Folic Acid 1 Mg Tablet PO 1 mg DAILY [facility] Administration Furosemide 40 mg 10/25/20 18:00 10/27/20 07:56 Furosemide 40 Mg/4 Ml Vial IVPUSH 40 mg BID@0900,1800 [facility] Administration Protocol Insulin Human Lispro 0 unit 10/25/20 21:00 10/27/20 11:35 Insulin Lispro 100 Unit/Ml 3 Ml Vial SUBCUT 4 unit QIDACHS [facility] Administration Protocol Ipratropium [place] 0.5 mg 10/25/20 20:00 10/27/20 11:08 Ipratropium [place] 0.5 Mg/2.5 Ml Solution INHALE 0.5 mg RQ4H WHILE AWAKE [facility] Administration Isosorbide Mononitrate 30 mg 10/26/20 12:30 10/27/20 07:56 Isosorbide Mononitrate 30 Mg Tab.Er.24h PO 30 mg DAILY [facility] Administration Protocol Levalbuterol HCl 1.25 mg 10/25/20 20:00 10/27/20 11:08 Levalbuterol Hcl 1.25 Mg/0.5 Ml Vial.Neb INHALE 1.25 mg RQ4H WHILE AWAKE [facility] Administration Losartan Potassium 50 mg 10/27/20 11:45 Losartan Potassium 50 Mg Tablet PO DAILY [facility] Protocol Meclizine HCl 25 mg 10/25/20 14:26 Meclizine Hcl 25 Mg Tablet PO TID PRN dizziness Methylprednisolone Sodium Succinate 40 mg 10/25/20 18:00 10/27/20 10:19 Methylprednisolone Sod Succ 40 Mg/Ml Vial IVPUSH 40 mg Q8H [facility] Administration Montelukast Sodium 10 mg 10/25/20 21:00 10/26/20 20:19 Montelukast Sodium 10 Mg Tablet PO 10 mg BEDTIME [facility] Administration Omeprazole 20 mg 10/26/20 06:30 10/27/20 05:58 Omeprazole 20 Mg Capsule.Dr PO 20 mg DAILY@0630 [facility] Administration Ondansetron HCl 4 mg 10/25/20 14:26 Ondansetron Hcl 4 Mg/2 Ml Vial IVPUSH Q8H PRN Nausea and Vomiting Pharmacy Consult 1 each 10/25/20 10:19 Consult Rx Perform Med Rec MISCELLANE ONCE PRN Consult order Quetiapine Fumarate 50 mg 10/25/20 21:00 10/27/20 07:55 Quetiapine Fumarate 50 Mg Tablet PO 50 mg BID [facility] Administration Rivaroxaban 10 mg 10/25/20 15:00 10/27/20 07:56 Rivaroxaban 10 Mg Tablet PO 10 mg DAILY [facility] Administration Sertraline HCl 200 mg 10/26/20 09:00 10/27/20 07:55 Sertraline Hcl 100 Mg Tablet PO 200 mg DAILY [facility] Administration Sodium Chloride 3 ml 10/25/20 16:00 10/27/20 07:58 0.9 % Sodium Chloride Flush 3 Ml Syringe IVFLUSH 3 ml QSHIFT [facility] Administration Tiotropium [place] 1 puff 10/26/20 08:00 10/27/20 07:18 Tiotropium [place] 18 Mcg Cap.W.Dev INHALE 1 puff RDAILY [facility] Administration Trazodone HCl 100 mg 10/25/20 14:26 Trazodone Hcl 100 Mg Tablet PO BEDTIME PRN Sleep Labs CBC & Chem 7: 10/25/20 10:35 10/27/20 05:46 Labs: Laboratory Results - last 24 hr 10/26/20 10/26/20 10/27/20 16:23 20:07 05:46 Anion Gap 14 Estim Creat Clear Calc 54.9 Estimated GFR > 60 POC Glucose 140 H 233 H Random Glucose 138 H Calcium 9.2 10/27/20 10/27/20 07:27 11:04 Anion Gap Estim Creat Clear Calc Estimated GFR POC Glucose 161 H 206 H Random Glucose Calcium Microbiology Microbiology Results: Microbiology 10/25/20 10:49 Blood - Venous Blood Culture - Preliminary No growth after 24 hours. 10/25/20 10:35 Blood - Venous Blood Culture - Preliminary No growth after 24 hours. Progress Note: A&P (1) Acute on chronic congestive heart failure: Status: Acute Assessment and Plan: This is a 60-year-old female with a past medical history of chronic respiratory failure with hypoxia on 4 L nasal cannula, COPD, combined systolic and diastolic heart failure with last echo in June 2020 showing an EF of 30-35%, continual tobacco use despite multiple admissions to the hospital who presents to the hospital with acute respiratory distress with hypoxia and is admitted for further workup. Acute on chronic respiratory failure with hypoxia secondary to COPD and acute on chronic congestive heart failure -improving, titrate oxygen down Acute on chronic combined systolic/diastolic heart failure/ cardiomyopathy ? related to uncontrolled HTN -continue IV lasix -tomorrow oral diuretics - cardiology following Uncontrolled hypertension Improved after BP meds - continue amlodipine - started on losartan as per Cardiology recommendation - Entresto at some point Acute COPD exacerbation slowly improving -taper IV steroids, start prednisone tomorrow -continue bronchodilators Elevated high sensitivity troponin [place], denies cp - likely secondary to COPD, CHF - telemetry monitoring Lactic acidosis secondary to hypoxia and possibly bronchodilators There is no evidence of any infection at this time. Mood Continue her baseline meds Obesity Suspect that this may be contributing to her overall respiratory symptoms. She will need outpatient follow-up with a weight loss program should she agree. Tobacco use disorder continues to smoke despite education about how tobacco effects her COPD / respiratory status. She has been encouraged cessation. -NRT offered, which she declines. Full code DVT prophylaxis, will use Xarelto 10 mg daily. HCP - does not name one at this time and infact, she does not want me speaking with any family at this time. Attending: Dr. Santamaria Quality Stroke Does the patient have a stroke diagnosis?: No VTE Prior VTE?: No VTE Risk Level:: Medical - moderate - high VTE Device Contraindication: N/A - Device Ordered VTE Drug Contraindication: N/A - Med Ordered
[2020-10-27] MEDS: Losartan Potassium 50 MG TABLET PO (12:57)
[2020-10-27 16:16] LABS: Glucose, Whole Blood 164 mg/dL (60-115)
[2020-10-27 20:15] LABS: Glucose, Whole Blood 186 mg/dL (60-115)
[2020-10-27] MEDS: Montelukast Sodium 10 MG TABLET PO (20:59)
[2020-10-28] VITALS (9 sets, daily range): BP systolic 135–155; BP diastolic 90–94; PULSE 77–100; RESP 18–20; TEMP 36.2–36.8; O2SAT 96–100
[2020-10-28] MEDS: methylPREDNISolone Sod Succ 40 MG/ML VIAL IVPUSH ×2 (03:39→08:38)
[2020-10-28] MEDS: 0.9 % Sodium Chloride Flush 3 ML SYRINGE IVFLUSH ×3 (03:39→16:55)
[2020-10-28] MEDS: Omeprazole 20 MG CAPSULE.DR PO (06:37)
[2020-10-28 06:44] LABS: Hematocrit 35.2 % (37-47); Hemoglobin 10.8 g/dl (12.0-16.0); Mean Corpuscular HGB Conc 30.7 g/dl (31.0-35.0); Mean Corpuscular Hemoglobin 24.6 pg (27.0-33.0); Mean Corpuscular Volume 80.2 fL (80-98); Mean Platelet Volume 10.9 fL (9.4-12.3); Platelet Count 217 X10*3/uL (160-400); Red Blood Count 4.39 X10*6/uL (4.20-5.50); Red Cell Distribution Width 15.5 % (11.0-16.0); White Blood Count 9.6 X10*3/uL (4.8-10.8)
[2020-10-28 07:01] LABS: Anion Gap 12 (12-20); Blood Urea Nitrogen 35 mg/dL (9-16); Carbon Dioxide 32 mmol/L (22-29); Chloride 100 mmol/L (96-108); Creatinine Clr Calc Pharmacy 62.2; Estimated Glomerular Filt Rate > 60; Glucose Random 118 mg/dL (60-115); Potassium 3.9 mmol/L (3.3-5.1); Sodium 140 mmol/L (135-145)
[2020-10-28 07:13] LABS: Glucose, Whole Blood 145 mg/dL (60-115)
[2020-10-28] MEDS: Ipratropium Bromide 0.5 MG/2.5 ML SOLUTION INHALE ×3 (07:20→15:24)
[2020-10-28] MEDS: amLODIPine Besylate 5 MG TABLET 10 MG PO (08:33)
[2020-10-28] MEDS: Isosorbide Mononitrate 30 MG TAB.ER.24H PO (08:34)
[2020-10-28] MEDS: QUEtiapine Fumarate 50 MG TABLET PO (08:34)
[2020-10-28] MEDS: Furosemide 40 MG/4 ML VIAL IVPUSH (08:34)
[2020-10-28] MEDS: carvediloL 12.5 MG TABLET PO (08:34)
[2020-10-28] MEDS: Folic Acid 1 MG TABLET PO (08:34)
[2020-10-28] MEDS: Sertraline HCL 100 MG TABLET 200 MG PO (08:34)
[2020-10-28] MEDS: Losartan Potassium 50 MG TABLET PO (08:34)
[2020-10-28] MEDS: Rivaroxaban 10 MG TABLET PO (08:34)
[2020-10-28 11:06] LABS: Glucose, Whole Blood 221 mg/dL (60-115)
[2020-10-28] MEDS: Insulin Lispro 100 UNIT/ML 3 ML VIAL SUBCUT ×2 (11:31→16:54)
--- NOTE | 2020-10-28 12:10 | PM.PNCARD ---
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 Feeling better. Physical Exam Vital Signs: Last Vital Signs Temp 98.3 F 10/28/20 11:24 Pulse 92 10/28/20 11:31 Resp 18 10/28/20 11:24 BP 135/94 H 10/28/20 11:24 Pulse Ox 100 10/28/20 11:24 Oxygen Flow Rate 5 10/25/20 10:20 Body Mass Index 31.3 GENERAL APPEARANCE: in no acute distress, pleasant. NECK: no carotid bruit, no jugular venous distention. SKIN: no suspicious lesions, warm and dry. HEART: no murmurs, regular rate and rhythm. LUNGS: Bilateral crackles. ABDOMEN: soft, nontender. EXTREMITIES: no edema. PERIPHERAL PULSES: equal. NEUROLOGIC: No gross deficits, AAO X 3 Results Labs and Meds Result diagrams: 10/28/20 05:54 10/28/20 05:54 Lab results: Laboratory Results - last 24 hr 10/27/20 10/27/20 10/28/20 16:12 20:06 05:54 WBC 9.6 RBC 4.39 Hgb 10.8 L Hct 35.2 L MCV 80.2 MCH 24.6 L MCHC 30.7 L RDW 15.5 Plt Count 217 MPV 10.9 Absolute Nucleated RBC 0.000 Nucleated RBC % (auto) 0.0 Sodium Potassium Chloride Carbon Dioxide Anion Gap BUN Creatinine Estim Creat Clear Calc Estimated GFR POC Glucose 164 H 186 H Random Glucose Calcium 10/28/20 10/28/20 10/28/20 05:54 06:56 11:02 WBC RBC Hgb Hct MCV MCH MCHC RDW Plt Count MPV Absolute Nucleated RBC Nucleated RBC % (auto) Sodium 140 Potassium 3.9 Chloride 100 Carbon Dioxide 32 H Anion Gap 12 BUN 35 H Creatinine 0.83 Estim Creat Clear Calc 62.2 Estimated GFR > 60 POC Glucose 145 H 221 H Random Glucose 118 H Calcium 9.0 Progress Note: A&P Assessment and plan (1) Acute on chronic congestive heart failure: Status: Acute Assessment and Plan: Pleasant 60 year female with cardiomyopathy and EF 30 35% presenting for respiratory failure due to combination of COPD as well as heart failure. Clinically she has improved significantly. I have changed her lisinopril to losartan so we can start her on Entresto as outpatient. Added Imdur 30 mg once a day. Blood pressure control is good. Clinically stable and may be able to go home today. Thank you for allowing me to participate in the care of your patient. Please feel free to contact me if you have any questions. Fall Risk Details Current Medications: Current Medications Generic Name Dose Route Start Last Admin Trade Name Freq PRN Reason Stop Dose Admin Acetaminophen 650 mg 10/25/20 14:26 10/25/20 18:33 Acetaminophen 325 Mg Tablet PO 650 mg Q6H PRN Administration Pain, Mild (Pain Scale 1-3) Amlodipine Besylate 10 mg 10/27/20 09:00 10/28/20 08:33 Amlodipine Besylate 5 Mg Tablet PO 10 mg DAILY [facility] Administration Protocol Carvedilol 12.5 mg 10/25/20 21:00 10/28/20 08:34 Carvedilol 12.5 Mg Tablet PO 12.5 mg BID [facility] Administration Protocol Folic Acid 1 mg 10/26/20 09:00 10/28/20 08:34 Folic Acid 1 Mg Tablet PO 1 mg DAILY [facility] Administration Furosemide 40 mg 10/25/20 18:00 10/28/20 08:34 Furosemide 40 Mg/4 Ml Vial IVPUSH 40 mg BID@0900,1800 [facility] Administration Protocol Insulin Human Lispro 0 unit 10/25/20 21:00 10/28/20 11:31 Insulin Lispro 100 Unit/Ml 3 Ml Vial SUBCUT 4 unit QIDACHS [facility] Administration Protocol Ipratropium [place] 0.5 mg 10/25/20 20:00 10/28/20 11:31 Ipratropium [place] 0.5 Mg/2.5 Ml Solution INHALE 0.5 mg RQ4H WHILE AWAKE [facility] Administration Isosorbide Mononitrate 30 mg 10/26/20 12:30 10/28/20 08:34 Isosorbide Mononitrate 30 Mg Tab.Er.24h PO 30 mg DAILY [facility] Administration Protocol Levalbuterol HCl 1.25 mg 10/25/20 20:00 10/28/20 11:31 Levalbuterol Hcl 1.25 Mg/0.5 Ml Vial.Neb INHALE 1.25 mg RQ4H WHILE AWAKE [facility] Administration Losartan Potassium 50 mg 10/27/20 11:45 10/28/20 08:34 Losartan Potassium 50 Mg Tablet PO 50 mg DAILY [facility] Administration Protocol Meclizine HCl 25 mg 10/25/20 14:26 Meclizine Hcl 25 Mg Tablet PO TID PRN dizziness Methylprednisolone Sodium Succinate 40 mg 10/25/20 18:00 10/28/20 08:38 Methylprednisolone Sod Succ 40 Mg/Ml Vial IVPUSH 40 mg Q8H [facility] Administration Montelukast Sodium 10 mg 10/25/20 21:00 10/27/20 20:59 Montelukast Sodium 10 Mg Tablet PO 10 mg BEDTIME [facility] Administration Omeprazole 20 mg 10/26/20 06:30 10/28/20 06:37 Omeprazole 20 Mg Capsule. PO 20 mg DAILY@0630 [facility] Administration Ondansetron HCl 4 mg 10/25/20 14:26 Ondansetron Hcl 4 Mg/2 Ml Vial IVPUSH Q8H PRN Nausea and Vomiting Pharmacy Consult 1 each 10/25/20 10:19 Consult Rx Perform Med Rec MISCELLANE ONCE PRN Consult order Quetiapine Fumarate 50 mg 10/25/20 21:00 10/28/20 08:34 Quetiapine Fumarate 50 Mg Tablet PO 50 mg BID [facility] Administration Rivaroxaban 10 mg 10/25/20 15:00 10/28/20 08:34 Rivaroxaban 10 Mg Tablet PO 10 mg DAILY [facility] Administration Sertraline HCl 200 mg 10/26/20 09:00 10/28/20 08:34 Sertraline Hcl 100 Mg Tablet PO 200 mg DAILY [facility] Administration Sodium Chloride 3 ml 10/25/20 16:00 10/28/20 08:38 0.9 % Sodium Chloride Flush 3 Ml Syringe IVFLUSH 3 ml QSHIFT [facility] Administration Tiotropium [place] 1 puff 10/26/20 08:00 10/28/20 07:20 Tiotropium [place] 18 Mcg Cap.W.Dev INHALE 1 puff RDAILY [facility] Administration Trazodone HCl 100 mg 10/25/20 14:26 Trazodone Hcl 100 Mg Tablet PO BEDTIME PRN Sleep Time Spent With Patient Time: Total time spent is greater than 50% in coordination of care (as documented) at patient's floor/unit and/or counseling patient: Time with patient: 15 - 24 minutes Progress Note: Quality Stroke Does the patient have a stroke diagnosis?: No Procedures Date of Service Date of Service: 10/28/20
--- NOTE | 2020-10-28 15:57 | PM.DS ---
DS: Providers Provider Date of Service: 10/28/20 Date of admission: 10/25/20 12:42 Primary care physician: Dereck Navarro MD Consults: 10/26/20 10:56 Consult to Cardiology Routine Consulting Provider: [facility] Reason for consultation: CHF, uncontrolled HTN DS: Diagnosis Discharge Diagnosis (1) Acute on chronic congestive heart failure: Status: Acute DS: Medications Discharge Medications Home Medications: Home Medications Medication Instructions Recorded Confirmed sertraline 200 mg PO DAILY 03/08/20 10/25/20 trazodone 100 mg PO BEDTIME PRN 03/08/20 10/25/20 amlodipine 5 mg PO DAILY 10/09/20 10/25/20 carvedilol 1 tab PO BID 10/09/20 10/25/20 ipratropium-albuterol 1 vial INHALATION QID 10/09/20 10/25/20 quetiapine 50 mg PO BID 10/09/20 10/25/20 Previous Rx's Medication Instructions Recorded meclizine 25 mg tablet 25 mg PO TID PRN 30 Days #90 tab 05/10/20 tiotropium bromide 18 mcg capsule 1 cap INHALATION DAILY 30 Days #30 05/20/20 with inhalation device inh folic acid 1 mg PO DAILY #90 tab 07/26/20 montelukast 10 mg tablet 10 mg PO BEDTIME #30 tab 08/27/20 prednisone 5 mg tablet 5 mg PO DAILY 30 Days #30 tab 10/07/20 omeprazole 20 mg capsule,delayed 20 mg PO DAILY #30 cap 10/19/20 release isosorbide mononitrate 30 mg PO DAILY #30 tab 10/28/20 losartan 50 mg PO DAILY #30 tab 10/28/20 DS: Summary Hospital Course Hospital Course: HP as per admitting provider This is a 60-year-old female with a past medical history as outlined below who presents to the emergency room after being referred from her primary care provider's office. She reportedly presented to the PCP's office with complaints of worsening dyspnea for the last 4-5 days. Per documentation from the PCPs note the patient arrived with visible respiratory distress and an oxygen saturation of 82% on 4 L which decreased to 75% by the time the paramedics arrived. Due to these issues, she was referred to the emergency room. To the ED patient was noted to be tachypneic with respiratory distress and accessory muscle use. She was noted to have an oxygen saturation of 82%. She was treated with IV systemic steroids, IV magnesium as well as IV diuretics along with empiric antibiotics. Her oxygen saturation and respiratory distress did not improve and so she was subsequently placed on a Ventimask with improvement in her symptoms and saturations. Patient is seen and examined the emergency room. History is taken with the help of a supervisory civil engineer, however despite this the patient remains of vague historian frequently rolling eyes. She does endorse that her symptoms have progressively worsened over the last 4-5 days and that she did in fact feel better after she was discharged from the hospital on 10/11/2020. She endorses noncompliance with her baseline prednisone of 5 mg stating that this does not help her. She also endorses noncompliance with physician recommendations on tobacco cessation, reports using about 6 cigarettes daily. In regards to her CHF history and diuretic use, she does not appear to know whether not she is supposed to be on Lasix. She denies any cough but endorses shortness of breath which is worse in the supine position. She is unsure if she has gained weight but denies lower extremity edema. She denies any chest pain. She denies any fevers or chills. Patient's workup in the emergency room revealed significant hypoxia and respiratory distress common elevated BNP of 640, and high sensitivity troponin which is 19.2 but EKG without any acute ischemic changes appreciated, lactic acidosis of 3.4. She was given the above medications and admission was requested . Acute on chronic systolic and diastolic heart failure. History of nonischemic cardiomyopathy, not on diuretics at home presented with congestion on x-ray, trace pedal edema and some shortness of breath. TTE in June 2020 showed EF of 30-35% with moderate global hypokinesis with systolic and diastolic abnormalities. She was treated with IV Lasix, seen and evaluated by Cardiology. Lisinopril changed to losartan and at some point will start Entresto as outpatient. Imdur was also added. Will continue her on oral diuretics for discharge. Acute on chronic respiratory failure with hypoxia secondary to COPD. History of chronic lung disease, on prednisone at baseline, continues to use tobacco. She was treated with IV Solu-Medrol and scheduled bronchodilators. imaging was negative for consolidation, no antibiotics necessitated. Patient is no longer hypoxic, she will go home to continue her oxygen therapy as per prior to discharge, she will also continue her baseline prednisone. Hypertension. Difficult to manage initially but much better control at this time. Lisinopril changed to losartan, amlodipine continued. Time Spent with Patient Time attestation: Total time spent providing and/or coordinating discharge services: Discharge coordination time: Greater than 30 minutes Quality: Stroke Does the patient have a stroke diagnosis?: No Physical Exam Vital Signs: Vital Signs: Last Vital Signs Temp 98.2 F 10/28/20 15:01 Pulse 81 10/28/20 15:25 Resp 20 10/28/20 15:01 BP 155/90 H 10/28/20 15:01 Pulse Ox 96 10/28/20 15:01 Oxygen Flow Rate 5 10/25/20 10:20 Body Mass Index 31.3 Appearing in no acute distress head is normocephalic atraumatic eyes pupils are PERRLA sclera is anicteric mouth throat mucous membranes are intact and moist neck is supple no lymphadenopathy, no JVD noted lung sounds Diminished at the bases heart regular rate rhythm, clear S1, S2 positive bowel sounds, abdomen is soft, nontender neuro patient is alert x3, no focal deficits DS: Data Data Completed and Pending Completed studies during hospitalization [Text1]: Procedures Assistance with Respiratory Ventilation, Less than 24 Consecutive Hours, Continuous Positive Airway Pressure (07/27/20) Labs on day of discharge: Laboratory Results - last 24 hr 10/27/20 10/27/20 10/28/20 16:12 20:06 05:54 WBC 9.6 RBC 4.39 Hgb 10.8 L Hct 35.2 L MCV 80.2 MCH 24.6 L MCHC 30.7 L RDW 15.5 Plt Count 217 MPV 10.9 Absolute Nucleated RBC 0.000 Nucleated RBC % (auto) 0.0 Sodium Potassium Chloride Carbon Dioxide Anion Gap BUN Creatinine Estim Creat Clear Calc Estimated GFR POC Glucose 164 H 186 H Random Glucose Calcium 10/28/20 10/28/20 10/28/20 05:54 06:56 11:02 WBC RBC Hgb Hct MCV MCH MCHC RDW Plt Count MPV Absolute Nucleated RBC Nucleated RBC % (auto) Sodium 140 Potassium 3.9 Chloride 100 Carbon Dioxide 32 H Anion Gap 12 BUN 35 H Creatinine 0.83 Estim Creat Clear Calc 62.2 Estimated GFR > 60 POC Glucose 145 H 221 H Random Glucose 118 H Calcium 9.0 Preliminary micro results at discharge 10/25/20 10:49 Blood Culture - Preliminary Blood - Venous No growth after 48 hours. 10/25/20 10:35 Blood Culture - Preliminary Blood - Venous No growth after 48 hours. Discharge Plan Discharge Anticipated Discharge Date/Time: 10/28/20 15:50 Patient Disposition: Home, Self-Care Discharge Diagnosis: acute on chronic respiratory failure COPD exacerbation acute on chronic combined systolic/ diastolic heart failure Referrals: Dereck Navarro MD [Primary Care Provider] - 1 Week Kemar Curry MD [Physician] - None (medication management ) Discharge Medications: New losartan 50 mg Tablet 50 mg PO DAILY Qty: 30 RF: 0 isosorbide mononitrate 30 mg Tablet Extended Release 24 Hr 30 mg PO DAILY Qty: 30 RF: 0 furosemide [Lasix] 40 mg tablet 40 mg PO DAILY Qty: 30 RF: 0 Continued meclizine 25 mg tablet 25 mg PO TID PRN (Reason: dizziness) 30 Days Qty: 90 RF: 3 tiotropium bromide [Spiriva with HandiHaler] 18 mcg capsule, w/inhalation device 1 cap inhalation DAILY 30 Days Qty: 30 RF: 5 montelukast 10 mg tablet 10 mg PO BEDTIME Qty: 30 RF: 11 prednisone 5 mg tablet 5 mg PO DAILY 30 Days Qty: 30 RF: 1 omeprazole 20 mg capsule,delayed release(DR/EC) 20 mg PO DAILY Qty: 30 RF: 1 ipratropium-albuterol 0.5 mg-3 mg(2.5 mg base)/3 mL solution for nebulization 1 vial inhalation QID RF: 0 carvedilol 12.5 mg tablet 1 tab PO BID RF: 0 amlodipine 5 mg Tablet 5 mg PO DAILY RF: 0 quetiapine 50 mg tablet 50 mg PO BID RF: 0 trazodone 50 mg tablet 100 mg PO BEDTIME PRN (Reason: Sleep) RF: 0 sertraline 100 mg tablet 200 mg PO DAILY RF: 0 folic acid 1 mg Tablet 1 mg PO DAILY Qty: 90 RF: 4 Discontinued lisinopril 20 mg Tablet 20 mg PO DAILY Qty: 30 RF: 0 Discharge Orders: Discharge Order (Routine); Ordered 10/28/20 Ordered By: Rachel Winslow Diet: advance to usual diet Activity on Discharge: As tolerated Stand Alone Forms: Patient Portal Discharge page Care Plan Goals: resolution of heart failure symptoms Health Concerns: acute on chronic respiratory failure COPD exacerbation acute on chronic combined systolic/ diastolic heart failure Plan of Treatment: follow-up with cardiology as outpatient for medication management weigh yourself daily, report 5 lb weight gain in 3 days monitor for any signs of swelling and shortness of breath that could be an indication of heart failure avoid high salt, canned and deli foods that could cause sodium and fluid retention follow-up with her primary care provider as needed Assessment: see discharge summary
[2020-10-28 16:09] LABS: Glucose, Whole Blood 219 mg/dL (60-115)
--- NOTE | 2020-10-28 16:23 | MHC.CM.PN ---
PT IS CLEARED TO DC HOME TODAY WITH [employer]. PT WILL BE TRANSPORTED VIA [facility]
== END 2020-10-28 18:05 | disposition home or self-care (01) | DRG 194 ==
LOC: HO.ED 11:27 → HO.EDOVER 12:46 → HO.IMC 14:12
PROVIDERS: Nurse Practitioner Acute Care; Admitting Provider Family Medicine; Emergency Provider Emergency Medicine; PCP Internal Medicine; Visit Provider Internal Medicine
DX: I11.0 Hypertensive heart disease with heart failure (principal); J96.21 Acute and chronic respiratory failure with hypoxia; E87.2 Acidosis; G89.29 Other chronic pain; I50.43 Acute on chronic combined systolic (congestive) and diastolic (congestive) heart failure; Z99.81 Dependence on supplemental oxygen; M54.9 Dorsalgia, unspecified; J44.1 Chronic obstructive pulmonary disease with (acute) exacerbation; F39 Unspecified mood [affective] disorder; E66.9 Obesity, unspecified; Z68.31 Body mass index [BMI] 31.0-31.9, adult; F17.210 Nicotine dependence, cigarettes, uncomplicated; Z71.6 Tobacco abuse counseling; Z20.822 Contact with and (suspected) exposure to COVID-19; Z79.899 Other long term (current) drug therapy
CPT/HCPCS: 36415; 71045; 80048; 80076; 81001; 82947; 83605; 83690; 83735; 83880; 84484; 85025; 85027; 85379; 87040; 87635; 93005; 94640; 94644; 99285; J0696; J1940; J2920; J2930; J3475

== ENCOUNTER 2020-12-06 08:55 | Outpatient (REF) | payer OTHER, SELFPAY ==
--- NOTE | ~2020-12-06 | MM_ITS ---
EXAMINATION: BONE DENSITOMETRY CLINICAL INDICATION: Asymptomatic menopausal state. COMPARISON: Previous BD dated 08/05/2011 and baseline BD dated 06/25/2006. TECHNIQUE: Using a [employer] DXA System (software version: 13.1) manufactured by [employer], dual-energy x-ray absorptiometry was performed of the lumbar spine and left hip. The images are of good technical quality. Summary results are attached. FINDINGS: AP SPINE L2-L4 (excluding L1): The data of L1-L4 has been changed to exclude the L1 vertebral body, because degenerative changes at this level may cause overestimation of lumbar spine density. Current: BMD 0.836 g/cm2, Z-score -2.1, T-score -3.0, osteoporosis, 12.2% decrease from previous, 5.4% decrease from baseline (<5% change is not significant). Prior: BMD 0.952 g/cm2. Baseline: BMD 0.884 g/cm2. LEFT FEMUR, NECK: Current: BMD 0.642 g/cm2, Z-score -1.8, T-score -2.8, osteoporosis. Prior: BMD 0.825 g/cm2. Baseline: BMD 0.807 g/cm2. LEFT FEMUR, TOTAL: Current: BMD 0.689 g/cm2, Z-score -1.8, T-score -2.5, osteoporosis, 25.7% decrease from previous, 26.2% decrease from baseline (<5% change is not significant). Prior: BMD 0.927 g/cm2. Baseline: BMD 0.933 g/cm2. IDENTIFIED RISK FACTORS: Osteoporosis, tobacco use (current smoker), glucocorticoids (chronic), menopause. HISTORY OF FRACTURE: None listed. MEDICATIONS: Bisphosphonates. MM/XR DEXA axial skeleton IMPRESSION: 1. DIAGNOSIS: Osteoporosis based on the lowest T-score value of -3.0 in the lumbar spine applying World Health Organization criteria. 2. 10-YEAR FRACTURE RISK PREDICTION, FRAX: Major osteoporotic fracture (clinical spine, forearm, hip or shoulder) 7.9%. Hip fracture 2.8%. 3. Treatment Recommendations: NOF guidelines recommend consideration for treatment in postmenopausal women and men age 50 and older presenting with the following: -A hip or vertebral (clinical or morphometric) fracture. -T-score less than or equal to -2.5 at the femoral neck or spine after appropriate evaluation to exclude secondary causes. -Low bone mass at the hip or spine and a 10-year fracture probability by FRAX of greater than or equal to 3% for hip fracture or greater than or equal to 20% for major osteoporotic fracture based on the [place] adapted WHO algorithm. 4. Other Recommendations: All treatment decisions require clinical judgment and consideration of individual patient factors, including patient preferences, comorbidities, previous drug use, risk factors not captured in the FRAX model (e.g. frailty, falls, vitamin D deficiency, increased bone turnover, interval significant decline in bone density) and possible under or overestimation of fracture risk by FRAX. Additional medical evaluation for secondary cause of low bone mineral density may be appropriate. FUTURE SCAN RECOMMENDATION: People with diagnosed cases of osteoporosis or at high risk for fracture should have regular bone mineral density tests. For patients eligible for Medicare, routine testing is allowed once every 2 years. The testing frequency can be increased to one year for patients who have rapidly progressing disease, those who are receiving or discontinuing medical therapy to restore bone mass, or have additional risk factors.
== END 2020-12-06 08:56 | disposition home or self-care (01) ==
LOC: HO.MAMMO 08:55
PROVIDERS: Visit Provider Internal Medicine
DX: Z13.820 Encounter for screening for osteoporosis (principal); Z78.0 Asymptomatic menopausal state; F17.200 Nicotine dependence, unspecified, uncomplicated; Z79.52 Long term (current) use of systemic steroids
CPT/HCPCS: 77080

== ENCOUNTER 2021-02-15 13:37 | Inpatient (IN) | payer OTHER, SELFPAY ==
[2021-02-15] VITALS (9 sets, daily range): BP systolic 146–187; BP diastolic 80–116; PULSE 88–118; RESP 18–22; TEMP 36.8–37.2; O2SAT 93–100; BMI 34.1
--- NOTE | 2021-02-15 | ECG_ITS ---
Test Reason : TACHY Blood Pressure : / mmHG Vent. Rate : 160 BPM Atrial Rate : 160 BPM P-R Int : 130 ms QRS Dur : 118 ms QT Int : 290 ms P-R-T Axes : 087 049 -70 degrees QTc Int : 473 ms Sinus tachycardia Incomplete right bundle branch block Marked ST abnormality, possible inferior subendocardial injury ST depression in Anterolateral leads T-wave inversion in Inferior leads Abnormal ECG Significant changes have occurred Referred By: Ashutosh Card Electronically Signed By:REGINALD DOBBS MD
--- NOTE | ~2021-02-15 | XR_ITS ---
EXAMINATION: XR CHEST CLINICAL INFORMATION: Shortness of breath. COMPARISON: Multiple priors, most recent chest radiograph dated 10/25/2020. TECHNIQUE: Frontal view of the chest was obtained. FINDINGS: Patchy bibasilar airspace opacities, which may represent atelectasis versus infiltrates, new/increased when compared to the prior examination. No pleural effusion or pneumothorax. Cardiomegaly, unchanged. XR/XR chest 1V IMPRESSION: Patchy bibasilar airspace opacities, new when compared to the prior examination. Findings may represent atelectasis versus early infiltrates.
--- NOTE | 2021-02-15 14:14 | ED_ITS ---
HPI - SOB/Dyspnea General Chief Complaint: Dyspnea Stated Complaint: low o2 Time Seen by Provider: 02/15/21 13:59 Source: patient and EMS Mode of arrival: EMS Limitations: language barrier (Urdu-speaking) History of Present Illness HPI Narrative: 60 yo female with history of COPD on 3L NC, CHF w/ EF 30%, DM2, uncontrolled HTN, KELLIE noncompliant with CPAP, mitral regurgitation, depression/anxiet, current smoker presents to the ed with concerns of shortness of breath, and cough since yesterday. She states that this morning it got worse, her CATTLE BRANDER arrived to her house was trying to get her dressed, however she felt too short of breath. This prompted the CATTLE BRANDER to call the ambulance, for her to be evaluated. She usually uses 3 L at home. However today she came into the emergency department on 6 L via EMS, according to the nurse, EMS put her on 6 L because she dropped down to the low 80s. Denies CP, abdominal pain, weakness, fatigue, headache, nausea, vomiting. Not vaccinated against COVID-19. MD elicited complaint: shortness of breath and cough Pertinent past history: COPD, congestive heart failure, diabetes and sepsis Onset (ago): day(s) (2) Timing: constant and progressively worsening Severity: moderate Relieving factors: nothing Known history of: COPD, congestive heart failure and diabetes Associated symptoms: cough Treatment prior to arrival: oxygen (6 L EMS) Related Data Home oxygen amount: 3 liters Home Medications Medication Instructions Recorded Confirmed trazodone 50 mg tablet 100 mg PO BEDTIME PRN 03/08/20 02/15/21 ipratropium 0.5 mg-albuterol 3 mg 3 ml INHALATION QID PRN 02/15/21 02/15/21 (2.5 mg base)/3 mL nebulization soln Previous Rx's Medication Instructions Recorded folic acid 1 mg tablet 1 mg PO DAILY #90 tab 07/26/20 montelukast 10 mg tablet 10 mg PO BEDTIME #30 tab 08/27/20 isosorbide mononitrate 30 mg 30 mg PO DAILY 90 Days #90 tab 12/18/20 tablet,extended release 24 hr losartan 50 mg tablet 50 mg PO DAILY 90 Days #90 tab 12/18/20 prednisone 5 mg tablet 5 mg PO DAILY 30 Days #30 tab 12/18/20 quetiapine 50 mg tablet 50 mg PO BID 90 Days #180 tab 12/18/20 sertraline 100 mg tablet 200 mg PO DAILY 90 Days #180 tab 12/18/20 tiotropium bromide 18 mcg capsule 1 cap INHALATION DAILY 30 Days #30 12/18/20 with inhalation device (Spiriva inh with HandiHaler) omeprazole 20 mg capsule,delayed 20 mg PO DAILY 30 Days #30 cap 01/07/21 release furosemide 40 mg tablet (Lasix) 40 mg PO DAILY #30 tab 01/31/21 Allergies Allergy/AdvReac Type Severity Reaction Status Date / Time nicotine [Nicotine] Allergy Unknown ITCHING Verified 05/21/20 10:40 WITH THE PATCHES topiramate Allergy Unknown inadequealte Verified 05/21/20 10:40 response Review of Systems Review of Systems: Constitutional : No Weight loss, No Fever, No Chills, No Night Sweats, No Fatigue, No Malaise ENT/Mouth : No Hearing loss, No Ear Pain, No Nasal Congestion, No Sinus Pain, No Hoarseness, No sore throat, No Rhinorrhea, No Swallowing Difficulty Eyes: No Eye Pain, No Swelling, No Redness, No Foreign Body, No Discharge, No Vision Changes Cardiovascular : No Chest Pain, + SOB, No Dyspnea on Exertion, No Orthopnea, No Edema, No Palpitations Respiratory : + Cough, No Sputum, No Wheezing, No Smoke Exposure, + Dyspnea Gastrointestinal : No Nausea, No Vomiting, No Diarrhea, No Constipation, No abdominal Pain, No Hematochezia, No Melena Genitourinary : no irregular bleeding, No Dysuria, No Urinary Frequency, No Hematuria, No Urinary Incontinence, No Urgency, No Flank Pain, No Urinary Flow Changes, No Hesitancy Musculoskeletal : No joint pain, No Myalgias, No Joint Swelling Skin : No Skin Lesions, No rash Neuro : No Weakness, No Numbness, No Paresthesias, No Loss of Consciousness, No Dizziness, No Headache Yes all other systems are reviewed and are negative PMFSH Past Medical History Attestation statement: The following information was validated with the patient. Medical History Acute and chronic respiratory failure with hypoxia Acute exacerbation of chronic obstructive pulmonary disease Acute on chronic respiratory failure with hypoxemia Anemia Anxiety Cardiomyopathy Chronic respiratory failure Congestive heart failure COPD (chronic obstructive pulmonary disease) COPD exacerbation Depression Diabetes Essential hypertension HFrEF (heart failure with reduced ejection fraction) HLD (hyperlipidemia) HTN (hypertension) Low back pain Mitral regurgitation Normocytic anemia KELLIE (obstructive sleep apnea) Postmenopausal Respiratory failure, acute Severe chronic obstructive pulmonary disease Supplemental oxygen dependent Tobacco abuse Surgical History Bilateral ankle fractures History of total abdominal hysterectomy Family History Family History Father No problems noted. Mother Liver cancer Hypertension Social History Social History Household Members: Family Housing: House Do you presently have visiting nurse or other home services: No Alcohol intake: never Patient Tobacco Use Status: Current everyday Tobacco user Tobacco use type: Cigarette Cigarette Packs Per Day: 1 Cigarettes Per Day: 6 Second Hand Smoke Exposure: No Use of substances other than those prescribed or required for medical reasons: No Advance Directives: Yes Advance Directives on File: Yes Advance Directives Date on File: 04/30/20 service: No Current occupational status: unemployed, retired and disabled Physical Exam Vital Signs: Vital Signs: Last Vital Signs Temp 98.3 F 02/15/21 16:23 Pulse 91 02/15/21 16:41 Resp 20 02/15/21 16:41 BP 149/85 H 02/15/21 16:41 Pulse Ox 96 02/15/21 16:23 Oxygen Flow Rate 3 02/15/21 13:47 Body Mass Index 34.1 vital signs have been reviewed as normal and appeared to be correct. Blood pressure hypertensive 187/114. Heart rate normal. Respiration rate normal. Temperature normal. Oxygen saturation normal. Appearance: Alert. Oriented X3. Mild acute respiratory distress noted. Head: Normal external exam. Normocephalic. Atraumatic. Eyes: PERRLA. EOMI. Conjunctiva and sclera normal. Eyelids normal. ENT: EAC normal. TM's Normal. Pharynx normal. Uvula midline. Moist mucous membranes. No trismus noted. No drooling noted. No muffled voice noted. No stridor noted. Neck: Normal inspection. Neck supple. FROM. No adenopathy. Thyroid Normal. No meningeal signs. No neck mass noted. CVS: Normal heart rate and rhythm. Heart sound normal. Pulses normal throughout. No murmurs/rales/gallops. Respiratory: Mild acute respiratory distress. Decreased breath sounds diffusely. No wheezes/rales/rhonchi noted. Chest nontender. Accessory muscle usage noted. Abdomen: Soft and nontender. Bowel sounds normal in all 4 quadrants. No distention noted. No organomegaly noted. No visible injury noted. Back: No CVA tenderness. Full range of motion noted. No rashes/lesion/induration/fluctuance or signs of infection noted. Skin: Skin warm and dry. Normal skin color. Normal skin turgor. No rashes/les ions/lacerations noted. Extremities: No lower extremity edema. No calf tenderness is noted. Extrem ities exhibit normal range of motion. Extremities nontender. Neuro: Oriented X 3. No motor deficit. No sensory deficit. Reflexes normal. Normal steady gait. No focal neuro deficits noted. Vascular: + radial pulses/+ 2 distal pedal pulses/+2 dorsalis pedis b/l. Normal cap refill. No cyanosis noted to upper extremity nails and lower extremity toes nails. Course Course Course Narrative: 1400 60 yo female pmhx COPD on 3L NC, CHF w/ EF 30%, DM2, uncontrolled HTN, KELLIE noncompliant with CPAP, mitral regurgitation, depression/anxiet, current smoker presents to the ed with concerns of shortness of breath, and cough since yesterday. Upon arrival she was placed on 6 L of nasal cannula O2, EMS states that she dropped down to the 80s. However, she is normally on 3 L at home. Upon physical examination diminished breathsounds are noted over all lung [place]. There is no lower extremity edema and no calf tenderness noted bilaterally. She is able to speak in full sentences and appears to be in mild acute respiratory distress with accessory muscle use. Tolerating secretions well. No stridor is noted. Plan at this time is to obtain basic labs, blood cultures, lactate, chest x-ray, COVID, BNP, VBG. She will be given Mag, albuterol, Solu-Medrol and Lasix. Will re-evaluate her, after these are administered. Reevaluation(s) Reevaluation #1: Antibiotics ordered 1 g rocephin due to nonspecific findings on CXR. Will also give 10 units of hydralazine for HTN. At this time nurse reports PT is a tough stick, labs are still pending at this time. Phlebotomy has been called. Time: 15:15 Reevaluation #2: Upon re-evaluation of the patient it is noted that her blood pressure went down to 156/95 after administration of 40 mg of Lasix. For this reason the hydralazine will not be given, an order has been canceled. Laboratory studies show a baseline anemia. VBG shows a pH 7.44 and bicarb of 31. This appears to be her baseline. Lactic 2.7 she will be given gentle hydration at this time. Patient is currently on 3 L of oxygen, and saturating well on room air. She appears to be in no distress. Time: 16:09 Reevaluation #3: Trop 25.9 appears to be patients baseline, no acute changes on EKG, patient denies CP, unlikely ACS. BNP 576, chronically elevated, however, this is lower than her normal. She continues to feel like she is improving with the updraft and medications. Time: 16:21 Additional Reevaluation(s): 16:55pm - I was Called to the bedside by the ER-RN, who states that the patient is requiring 6 L of oxygen, and is saturating 80's%. At this time she will be switched over to a Venti mask at a starting rate of 40%. - The hospitalist Dr. Card for admission for COPD exacerbation, and hypoxia. Pt understands and agrees with plan. MDM - SOB/Dyspnea Medical Records Attestation: I reviewed the patient's medical records. Lab Data Attestation: I reviewed the patient's lab results. Result diagrams: 02/15/21 15:30 02/15/21 15:30 Labs: Lab Results 02/15/21 02/15/21 02/15/21 Range/Units 15:30 15:30 15:30 WBC 10.0 (4.8-10.8) X10*3/uL RBC 4.18 L (4.20-5.50) X10*6/uL Hgb 9.8 L (12.0-16.0) g/dl Hct 32.9 L (37-47) % MCV 78.7 L (80-98) fL MCH 23.4 L (27.0-33.0) pg MCHC 29.8 L (31.0-35.0) g/dl RDW 15.4 (11.0-16.0) % Plt Count 202 (160-400) X10*3/uL MPV 9.9 (9.4-12.3) fL Immature Gran % (Auto) 0.3 (0.0-0.4) % Neut % (Auto) 75.2 H (45-73) % Lymph % (Auto) 20.0 (20-40) % [place] % (Auto) 4.2 (2-11) % Eos % (Auto) 0.2 (0-4) % Baso % (Auto) 0.1 (0-2) % Lymph # (Auto) 2.0 (1.2-4.9) X10*3/uL [place] # (Auto) 0.4 (0.1-1.2) X10*3/uL Eos # (Auto) 0.0 (0.0-0.4) X10*3/uL Baso # (Auto) 0.0 (0.0-0.2) X10*3/uL Abs Immat Gran (auto) 0.03 (0.00-0.03) X10*3/uL Absolute Neuts (auto) 7.5 (2.0-8.3) X10*3/uL Absolute Nucleated RBC 0.000 (0.0-0.012) X10*3/uL Nucleated RBC % (auto) 0.0 (0.0-0.2) /100WBC VBG pH (7.32-7.43) VBG pCO2 mmHg VBG pO2 mmHg VBG HCO3 (22-26) mmol/L VBG O2 Saturation % VBG Base Excess mmol/L Sodium 140 (135-145) mmol/L Potassium 3.8 (3.3-5.1) mmol/L Chloride 100 (96-108) mmol/L Carbon Dioxide 29 (22-29) mmol/L Anion Gap 15 (12-20) BUN 9 D (9-16) mg/dL Creatinine 0.78 (0.5-1.4) mg/dL Estim Creat Clear Calc 69.4 Estimated GFR > 60 Random Glucose 105 (60-115) mg/dL Lactic Acid 2.7 H* (0.5-2.0) mmol/L Calcium 9.3 (8.4-10.2) mg/dL Magnesium 2.6 (1.6-2.6) mg/dL Total Bilirubin 0.5 (0.0-1.0) mg/dL Direct Bilirubin < 0.2 (0.0-0.5) mg/dL AST 24 D (5-31) U/L ALT 9 (0-31) U/L Alkaline Phosphatase 143 H (39-117) U/L Troponin I High Sens (<3.5-17.0) ng/L B-Natriuretic Peptide (<100) pg/mL Total Protein 8.3 H (6.5-8.0) g/dL Albumin 4.3 (3.5-5.0) g/dL Urine Color Urine Appearance Urine pH (5.0-8.0) Ur Specific [place] (1.005-1.025) Urine Protein (NEG-TRACE) MG/DL Urine Glucose (UA) (NEG) MG/DL Urine Ketones (NEG) MG/DL Urine Blood (NEG) Urine Nitrite (NEG) Ur Leukocyte Esterase (NEG) COVID-19 (ANEL) (Negative) COVID-19 Clin Com 02/15/21 02/15/21 02/15/21 Range/Units 15:30 15:36 16:22 WBC (4.8-10.8) X10*3/uL RBC (4.20-5.50) X10*6/uL Hgb (12.0-16.0) g/dl Hct (37-47) % MCV (80-98) fL MCH (27.0-33.0) pg MCHC (31.0-35.0) g/dl RDW (11.0-16.0) % Plt Count (160-400) X10*3/uL MPV (9.4-12.3) fL Immature Gran % (Auto) (0.0-0.4) % Neut % (Auto) (45-73) % Lymph % (Auto) (20-40) % [place] % (Auto) (2-11) % Eos % (Auto) (0-4) % Baso % (Auto) (0-2) % Lymph # (Auto) (1.2-4.9) X10*3/uL [place] # (Auto) (0.1-1.2) X10*3/uL Eos # (Auto) (0.0-0.4) X10*3/uL Baso # (Auto) (0.0-0.2) X10*3/uL Abs Immat Gran (auto) (0.00-0.03) X10*3/uL Absolute Neuts (auto) (2.0-8.3) X10*3/uL Absolute Nucleated RBC (0.0-0.012) X10*3/uL Nucleated RBC % (auto) (0.0-0.2) /100WBC VBG pH 7.44 H (7.32-7.43) VBG pCO2 45 mmHg VBG pO2 88 mmHg VBG HCO3 31 H (22-26) mmol/L VBG O2 Saturation 97.0 % VBG Base Excess 6.5 mmol/L Sodium (135-145) mmol/L Potassium (3.3-5.1) mmol/L Chloride (96-108) mmol/L Carbon Dioxide (22-29) mmol/L Anion Gap (12-20) BUN (9-16) mg/dL Creatinine (0.5-1.4) mg/dL Estim Creat Clear Calc Estimated GFR Random Glucose (60-115) mg/dL Lactic Acid (0.5-2.0) mmol/L Calcium (8.4-10.2) mg/dL Magnesium (1.6-2.6) mg/dL Total Bilirubin (0.0-1.0) mg/dL Direct Bilirubin (0.0-0.5) mg/dL AST (5-31) U/L ALT (0-31) U/L Alkaline Phosphatase (39-117) U/L Troponin I High Sens 25.9 H* (<3.5-17.0) ng/L B-Natriuretic Peptide 576 H (<100) pg/mL Total Protein (6.5-8.0) g/dL Albumin (3.5-5.0) g/dL Urine Color Urine Appearance Urine pH (5.0-8.0) Ur Specific [place] (1.005-1.025) Urine Protein (NEG-TRACE) MG/DL Urine Glucose (UA) (NEG) MG/DL Urine Ketones (NEG) MG/DL Urine Blood (NEG) Urine Nitrite (NEG) Ur Leukocyte Esterase (NEG) COVID-19 (ANEL) Negative (Negative) COVID-19 Clin Com See Note 02/15/21 Range/Units 16:22 WBC (4.8-10.8) X10*3/uL RBC (4.20-5.50) X10*6/uL Hgb (12.0-16.0) g/dl Hct (37-47) % MCV (80-98) fL MCH (27.0-33.0) pg MCHC (31.0-35.0) g/dl RDW (11.0-16.0) % Plt Count (160-400) X10*3/uL MPV (9.4-12.3) fL Immature Gran % (Auto) (0.0-0.4) % Neut % (Auto) (45-73) % Lymph % (Auto) (20-40) % [place] % (Auto) (2-11) % Eos % (Auto) (0-4) % Baso % (Auto) (0-2) % Lymph # (Auto) (1.2-4.9) X10*3/uL [place] # (Auto) (0.1-1.2) X10*3/uL Eos # (Auto) (0.0-0.4) X10*3/uL Baso # (Auto) (0.0-0.2) X10*3/uL Abs Immat Gran (auto) (0.00-0.03) X10*3/uL Absolute Neuts (auto) (2.0-8.3) X10*3/uL Absolute Nucleated RBC (0.0-0.012) X10*3/uL Nucleated RBC % (auto) (0.0-0.2) /100WBC VBG pH (7.32-7.43) VBG pCO2 mmHg VBG pO2 mmHg VBG HCO3 (22-26) mmol/L VBG O2 Saturation % VBG Base Excess mmol/L Sodium (135-145) mmol/L Potassium (3.3-5.1) mmol/L Chloride (96-108) mmol/L Carbon Dioxide (22-29) mmol/L Anion Gap (12-20) BUN (9-16) mg/dL Creatinine (0.5-1.4) mg/dL Estim Creat Clear Calc Estimated GFR Random Glucose (60-115) mg/dL Lactic Acid (0.5-2.0) mmol/L Calcium (8.4-10.2) mg/dL Magnesium (1.6-2.6) mg/dL Total Bilirubin (0.0-1.0) mg/dL Direct Bilirubin (0.0-0.5) mg/dL AST (5-31) U/L ALT (0-31) U/L Alkaline Phosphatase (39-117) U/L Troponin I High Sens (<3.5-17.0) ng/L B-Natriuretic Peptide (<100) pg/mL Total Protein (6.5-8.0) g/dL Albumin (3.5-5.0) g/dL Urine Color STRAW Urine Appearance CLEAR Urine pH 6.0 (5.0-8.0) Ur Specific [place] <= 1.005 (1.005-1.025) Urine Protein NEG (NEG-TRACE) MG/DL Urine Glucose (UA) NEG (NEG) MG/DL Urine Ketones NEG (NEG) MG/DL Urine Blood NEG (NEG) Urine Nitrite NEG (NEG) Ur Leukocyte Esterase NEG (NEG) COVID-19 (ANEL) (Negative) COVID-19 Clin Com Imaging Data Chest x-ray: Attestation: I personally reviewed and interpreted this imaging study as follows: Radiologist's impression: FINDINGS: Patchy bibasilar airspace opacities, which may represent atelectasis versus infiltrates, new/increased when compared to the prior examination. No pleural effusion or pneumothorax. Cardiomegaly, unchanged. XR/XR chest 1V IMPRESSION: Patchy bibasilar airspace opacities, new when compared to the prior examination. Findings may represent atelectasis versus early infiltrates. ECG Data Attestation: I personally reviewed and interpreted this ECG as follows: ECG interpretation date: 02/15/21 ECG interpretation time: 14:24 Prior ECG tracings: available for review Interpretation: Ventricular rate 89, VA normal, QRS normal, QT/QTC normal, No LAURO no T wave inversions. Normal Sinus Rhythm. No acute ischemia. No acute changes when compared to previous October 2020. Critical Care Time Critical Care Time Critical Care Time: Yes Total Critical Care Time: 60 Attestation: I personally attest to this time spent taking care of the patient Discharge Plan Discharge Clinical Impression: Congestive heart failure, Acute exacerbation of chronic obstructive airways disease, Community acquired pneumonia, Hypertension Patient Disposition: Admitted As Inpatient Prescriptions: No Action montelukast 10 mg tablet 10 mg PO BEDTIME Qty: 30 RF: 11 isosorbide mononitrate 30 mg tablet extended release 24 hr 30 mg PO DAILY 90 Days Qty: 90 RF: 3 losartan 50 mg tablet 50 mg PO DAILY 90 Days Qty: 90 RF: 3 Spiriva with HandiHaler 18 mcg capsule, w/inhalation device 1 cap inhalation DAILY 30 Days Qty: 30 RF: 5 sertraline 100 mg tablet 200 mg PO DAILY 90 Days Qty: 180 RF: 1 quetiapine 50 mg tablet 50 mg PO BID 90 Days Qty: 180 RF: 1 prednisone 5 mg tablet 5 mg PO DAILY 30 Days Qty: 30 RF: 1 omeprazole 20 mg capsule,delayed release(DR/EC) 20 mg PO DAILY 30 Days Qty: 30 RF: 1 furosemide [Lasix] 40 mg tablet 40 mg PO DAILY Qty: 30 RF: 0 trazodone 50 mg tablet 100 mg PO BEDTIME PRN (Reason: Sleep) RF: 0 folic acid 1 mg Tablet 1 mg PO DAILY Qty: 90 RF: 4 ipratropium-albuterol 0.5 mg-3 mg(2.5 mg base)/3 mL solution for nebulization 3 ml inhalation QID PRN (Reason: Shortness Of Breath) RF: 0
[2021-02-15] MEDS: Magnesium Sulfate/H2O 2 GM/50 ML PIGGYBACK IV (14:52)
[2021-02-15] MEDS: methylPREDNISolone Sod Succ 125 MG/2 ML VIAL IVPUSH (14:52)
[2021-02-15] MEDS: Furosemide 40 MG/4 ML VIAL IVPUSH (14:52)
[2021-02-15] MEDS: Albuterol Sulfate (0.083%) 2.5 MG/3 ML VIAL.NEB 10 MG INHALE (15:03)
[2021-02-15 15:41] LABS: MANUAL DIFF FLAG NO
[2021-02-15 15:42] LABS: Venous Blood Gas Refer to POC result
[2021-02-15 15:42] LABS: VBG Base Excess 6.5 mmol/L; VBG HCO3 31 mmol/L (22-26); VBG pCO2 45 mmHg; VBG pH 7.44 (7.32-7.43); VBG pO2 88 mmHg
[2021-02-15 15:48] LABS: Basophils Percent Auto 0.1 % (0-2); Eosinophils Percent Auto 0.2 % (0-4); Hematocrit 32.9 % (37-47); Hemoglobin 9.8 g/dl (12.0-16.0); Imm Gran Abs Auto 0.03 X10*3/uL (0.00-0.03); Imm Gran Pct Auto 0.3 % (0.0-0.4); Mean Corpuscular HGB Conc 29.8 g/dl (31.0-35.0); Mean Corpuscular Hemoglobin 23.4 pg (27.0-33.0); Mean Corpuscular Volume 78.7 fL (80-98); Mean Platelet Volume 9.9 fL (9.4-12.3); Monocytes Absolute Auto 0.4 X10*3/uL (0.1-1.2); Monocytes Percent Auto 4.2 % (2-11); Neutrophils Absolute Auto 7.5 X10*3/uL (2.0-8.3); Neutrophils Percent Auto 75.2 % (45-73); Platelet Count 202 X10*3/uL (160-400); Red Blood Count 4.18 X10*6/uL (4.20-5.50); Red Cell Distribution Width 15.4 % (11.0-16.0)
[2021-02-15] MEDS: cefTRIAXone sodium 1 GM in 0.9 % Sodium Chloride 50 ML IV (15:53)
--- NOTE | 2021-02-15 15:56 | PC.NURSE ---
patient difficult stick, phlebotomy up to draw labs. when checked in computer, only see one set of blood cultures collected. antibiotic hung due to timing, will check with lab to see if they have second set or if needs to be drawn.
[2021-02-15 15:59] LABS: Lactic Acid 2.7 mmol/L (0.5-2.0)
[2021-02-15 16:13] LABS: Alanine Aminotransferase 9 U/L (0-31); Albumin Level 4.3 g/dL (3.5-5.0); Alkaline Phosphatase 143 U/L (39-117); Anion Gap 15 (12-20); Aspartate Amino Transferase 24 U/L (5-31); Bilirubin Direct < 0.2 mg/dL (0.0-0.5); Bilirubin Total 0.5 mg/dL (0.0-1.0); Blood Urea Nitrogen 9 mg/dL (9-16); Calcium 9.3 mg/dL (8.4-10.2); Carbon Dioxide 29 mmol/L (22-29); Chloride 100 mmol/L (96-108); Creatinine Clr Calc Pharmacy 69.4; Estimated Glomerular Filt Rate > 60; Glucose Random 105 mg/dL (60-115); Magnesium 2.6 mg/dL (1.6-2.6); Potassium 3.8 mmol/L (3.3-5.1); Sodium 140 mmol/L (135-145); Total Protein 8.3 g/dL (6.5-8.0)
[2021-02-15 16:16] LABS: B Type Natriuretic Peptide 576 pg/mL (<100); Troponin-I High Sensitivity 25.9 ng/L (<3.5-17.0)
--- NOTE | 2021-02-15 16:23 | PC.NURSE ---
PATIENT SECOND SET OF BLOOD CULTURE WAS DRAWN BY THIS PCT.
--- NOTE | 2021-02-15 16:25 | PC.NURSE ---
PATIENT WAS CHANGE INTO HOSPITAL ATTIRE BY THIS PCT .
[2021-02-15 16:37] LABS: Appearance Urine CLEAR; Color Urine STRAW; Glucose Urine UA NEG (NEG); Leukocyte Esterase Urine NEG (NEG); Nitrite Urine NEG (NEG); Specific Gravity - Urine <= 1.005 (1.005-1.025); Urine Blood NEG (NEG); Urine Ketones NEG (NEG); Urine Protein NEG (NEG-TRACE)
[2021-02-15] MEDS: 0.9 % Sodium Chloride 1,000 ML 500 ML IVCONT (16:41)
[2021-02-15 16:50] LABS: COVID-19 Test Negative (Negative); IDNOW Serial# 9DD0AD1C
[2021-02-15 17:38] LABS: Reflex Lactate? Lactic Acid Added
--- NOTE | 2021-02-15 18:22 | P.HPHOSP_ITS ---
History of Present Illness Date of Service: 02/15/21 Chief Complaint: dyspnea, cough Ms Romero is a 60 year-old woman with steroid-dependent COPD, chronic hypoxic respiratory failure on 3L O2 via NC, chronic HFrEF [30-35% Jun 2020], KELLIE nonadherent with CPAP, DM2, HTN, and tobacco abuse who presents with 2 days of worsening dyspnea, particularly with exertion, and cough productive of white sputum. She endorses wheezing. Denies fever. No sick contacts; she lives alone. No chest pain. Denies leg edema. EMS was called and she was noted to be hypoxic with SaO2 in the low 80s, requiring 6L of O2 to maintain normoxemia. She was given magnesium, methylprednisolone, albuterol, and furosemide. CXR showed bibasilar infiltrates and she was given ceftriaxone. She was switched to a Venti mask with FiO2 40% and has SaO2 of 93% at the time of my evaluation. Review of Systems Review of Systems: Yes all other systems are reviewed and are negative [facility] Medical History Acute and chronic respiratory failure with hypoxia Acute exacerbation of chronic obstructive pulmonary disease Acute on chronic respiratory failure with hypoxemia Anemia Anxiety Cardiomyopathy Chronic respiratory failure Congestive heart failure COPD (chronic obstructive pulmonary disease) COPD exacerbation Depression Diabetes Essential hypertension HFrEF (heart failure with reduced ejection fraction) HLD (hyperlipidemia) HTN (hypertension) Low back pain Mitral regurgitation Normocytic anemia KELLIE (obstructive sleep apnea) Postmenopausal Respiratory failure, acute Severe chronic obstructive pulmonary disease Supplemental oxygen dependent Tobacco abuse Family History Father No problems noted. Mother Liver cancer Hypertension Pertinent family history: as above Surgical History Bilateral ankle fractures History of total abdominal hysterectomy Social History Household Members: Family Housing: House Do you presently have visiting nurse or other home services: No Alcohol intake: never Patient Tobacco Use Status: Current everyday Tobacco user Tobacco use type: Cigarette Cigarette Packs Per Day: 1 Cigarettes Per Day: 6 Second Hand Smoke Exposure: No Use of substances other than those prescribed or required for medical reasons: No Advance Directives: Yes Advance Directives on File: Yes Advance Directives Date on File: 04/30/20 service: No Current occupational status: unemployed, retired and disabled Meds Allergies Allergy/AdvReac Type Severity Reaction Status Date / Time nicotine [Nicotine] Allergy Unknown ITCHING Verified 05/21/20 10:40 WITH THE PATCHES topiramate Allergy Unknown inadequealte Verified 05/21/20 10:40 response Active Medications: Current Medications Albuterol Sulfate (Albuterol Sulfate (0.083%) 2.5 Mg/3 Ml Vial.Neb) 2.5 mg INHA LE Q3H PRN PRN Reason: shortness of breath/wheeze Albuterol/Ipratropium (Albuterol/Iprat 2.5/0.5mg 3 Ml Ampul.Neb) 3 ml INHALE QID PRN PRN Reason: Shortness Of Breath Folic Acid (Folic Acid 1 Mg Tablet) 1 mg PO DAILY [facility] Furosemide (Furosemide 40 Mg/4 Ml Vial) 40 mg IVPUSH DAILY [facility]; Protocol Ceftriaxone Sodium 1 gm/ (Sodium Chloride) 50 mls @ 100 mls/hr IV Q24H [facility] Doxycycline Hyclate 100 mg/ (Sodium Chloride) 250 mls @ 166.67 mls/hr IV Q12H [facility] Isosorbide Mononitrate (Isosorbide Mononitrate 30 Mg Tab.Er.24h) 30 mg PO DAILY [facility]; Protocol Losartan Potassium (Losartan Potassium 50 Mg Tablet) 50 mg PO DAILY [facility]; Protocol Methylprednisolone Sodium Succinate (Methylprednisolone Sod Succ 40 Mg/Ml Vial) 40 mg IVPUSH Q24H [facility] Montelukast Sodium (Montelukast Sodium 10 Mg Tablet) 10 mg PO BEDTIME [facility] Omeprazole (Omeprazole 20 Mg Capsule.Dr) 20 mg PO DAILY@0630 [facility] Pharmacy Consult (Consult Rx Perform Med Rec) 1 each MISCELLANE ONCE PRN PRN Reason: Consult order Quetiapine Fumarate (Quetiapine Fumarate 50 Mg Tablet) 50 mg PO BID [facility] Sertraline HCl (Sertraline Hcl 100 Mg Tablet) 200 mg PO DAILY [facility] Tiotropium [place] (Tiotropium [place] 18 Mcg Cap.W.Dev) 1 puff INHALE RDAILY [facility] Trazodone HCl (Trazodone Hcl 100 Mg Tablet) 100 mg PO BEDTIME PRN PRN Reason: Sleep Home Medications Medication Instructions Recorded Confirmed Last Taken Type trazodone 50 mg tablet 100 mg PO BEDTIME PRN 03/08/20 02/15/21 05/12/20 History ipratropium 0.5 mg-albuterol 3 mg 3 ml INHALATION QID PRN 02/15/21 02/15/21 Unknown History (2.5 mg base)/3 mL nebulization soln Physical Exam Vital Signs and Narrative: Vital Signs: Last Vital Signs Temp 98.3 F 02/15/21 16:23 Pulse 91 02/15/21 16:41 Resp 20 02/15/21 16:41 BP 149/85 H 02/15/21 16:41 Pulse Ox 96 02/15/21 16:23 Oxygen Flow Rate 3 02/15/21 13:47 Body Mass Index 34.1 Gen: in mild resp distress HEENT: sclera anicteric, moist mucus membranes Neck: supple, JVD present Lungs: somehwat tachypneic, coarse crackles at bases bilaterally Heart: regular rate and rhythm, no murmurs Abd: soft, non-tender, non-distended, obese Ext: no edema Skin: warm/well-perfused Neuro: alert and oriented x3, no focal findings Psych: appropriate affect Results Labs CBC and Chem 7: 02/15/21 15:30 02/15/21 15:30 Labs: Laboratory Results - last 24 hr 02/15/21 02/15/21 02/15/21 15:30 15:30 15:30 MCV 78.7 L MCH 23.4 L MCHC 29.8 L RDW 15.4 Plt Count 202 MPV 9.9 Immature Gran % (Auto) 0.3 Neut % (Auto) 75.2 H Lymph % (Auto) 20.0 Bay % (Auto) 4.2 Eos % (Auto) 0.2 Baso % (Auto) 0.1 Lymph # (Auto) 2.0 Bay # (Auto) 0.4 Eos # (Auto) 0.0 Baso # (Auto) 0.0 Abs Immat Gran (auto) 0.03 Absolute Neuts (auto) 7.5 Absolute Nucleated RBC 0.000 Nucleated RBC % (auto) 0.0 VBG pH VBG pCO2 VBG pO2 VBG HCO3 VBG O2 Saturation VBG Base Excess Anion Gap 15 Estim Creat Clear Calc 69.4 Estimated GFR > 60 Random Glucose 105 Lactic Acid 2.7 H* Calcium 9.3 Magnesium 2.6 Total Bilirubin 0.5 Direct Bilirubin < 0.2 AST 24 D ALT 9 Alkaline Phosphatase 143 H Troponin I High Sens B-Natriuretic Peptide Total Protein 8.3 H Albumin 4.3 Urine Color Urine Appearance Urine pH Ur Specific [place] Urine Protein Urine Glucose (UA) Urine Ketones Urine Blood Urine Nitrite Ur Leukocyte Esterase COVID-19 (ANEL) COVID-19 Clin Com 02/15/21 02/15/21 02/15/21 15:30 15:36 16:22 MCV MCH MCHC RDW Plt Count MPV Immature Gran % (Auto) Neut % (Auto) Lymph % (Auto) Bay % (Auto) Eos % (Auto) Baso % (Auto) Lymph # (Auto) Bay # (Auto) Eos # (Auto) Baso # (Auto) Abs Immat Gran (auto) Absolute Neuts (auto) Absolute Nucleated RBC Nucleated RBC % (auto) VBG pH 7.44 H VBG pCO2 45 VBG pO2 88 VBG HCO3 31 H VBG O2 Saturation 97.0 VBG Base Excess 6.5 Anion Gap Estim Creat Clear Calc Estimated GFR Random Glucose Lactic Acid Calcium Magnesium Total Bilirubin Direct Bilirubin AST ALT Alkaline Phosphatase Troponin I High Sens 25.9 H* B-Natriuretic Peptide 576 H Total Protein Albumin Urine Color Urine Appearance Urine pH Ur Specific [place] Urine Protein Urine Glucose (UA) Urine Ketones Urine Blood Urine Nitrite Ur Leukocyte Esterase COVID-19 (ANEL) Negative COVID-19 Clin Com See Note 02/15/21 16:22 MCV MCH MCHC RDW Plt Count MPV Immature Gran % (Auto) Neut % (Auto) Lymph % (Auto) Bay % (Auto) Eos % (Auto) Baso % (Auto) Lymph # (Auto) Bay # (Auto) Eos # (Auto) Baso # (Auto) Abs Immat Gran (auto) Absolute Neuts (auto) Absolute Nucleated RBC Nucleated RBC % (auto) VBG pH VBG pCO2 VBG pO2 VBG HCO3 VBG O2 Saturation VBG Base Excess Anion Gap Estim Creat Clear Calc Estimated GFR Random Glucose Lactic Acid Calcium Magnesium Total Bilirubin Direct Bilirubin AST ALT Alkaline Phosphatase Troponin I High Sens B-Natriuretic Peptide Total Protein Albumin Urine Color STRAW Urine Appearance CLEAR Urine pH 6.0 Ur Specific [place] <= 1.005 Urine Protein NEG Urine Glucose (UA) NEG Urine Ketones NEG Urine Blood NEG Urine Nitrite NEG Ur Leukocyte Esterase NEG COVID-19 (ANEL) COVID-19 Clin Com Impressions Chest X-Ray 02/15/21 14:01 IMPRESSION: Patchy bibasilar airspace opacities, new when compared to the prior examination. Findings may represent atelectasis versus early infiltrates. Imaging Radiologist's Impressions: Impressions Chest X-Ray 02/15/21 14:01 IMPRESSION: Patchy bibasilar airspace opacities, new when compared to the prior examination. Findings may represent atelectasis versus early infiltrates. Assessment and Plan (1) Hypoxia: Status: Resolved Ms Romero is a 60 year-old woman with steroid-dependent COPD, chronic hypoxic respiratory failure on 3L O2 via NC, chronic HFrEF [30-35% Jun 2020], KELLIE nonadherent with CPAP, DM2, HTN, and tobacco abuse presenting with dyspnea and hypoxia, admitted for COPD exacerbation + pneumonia. # COPD exacerbation - admit to [facility], give IV steroids, standing/prn nebs, continue LAMA # PNA - IV ceftriaxone + doxycycline, check respiratory virus panel, trend PCT, follow BCx # acute/chronic resp failure - supplemental O2 via Ventimask # acute/chronic HFrEF # NICM # HTN - appears fluid overloaded- will give IV furosemide and follow I+O, weight, BNP; monitor BMP + Mg - continue Imdur, losartan - recheck [id number]-I. denies angina but check EKG # lactic acidosis - not septic; likely bronchodilator effect # normocytic anemia - check iron studies; chronic anemia # mood disorder - continue quetiapine, sertraline, trazodone # DM2 - correction-dose lispro # tobacco abuse - NRT # VTE ppx - LMWH # code Quality Stroke Does the patient have a stroke diagnosis?: No VTE Prior VTE?: No VTE Risk Level:: Medical - moderate - high VTE Device Contraindication: N/A - Device Ordered VTE Drug Contraindication: N/A - Med Ordered
[2021-02-15] MEDS: Doxycycline Hyclate 100 MG in 0.9 % Sodium Chloride 250 ML 166.67 MG IV (18:26)
[2021-02-15 18:34] LABS: Procalcitonin 0.02 ng/mL
[2021-02-15] MEDS: Enoxaparin Sodium 40 MG/0.4 ML SYRINGE SUBCUT (18:39)
--- NOTE | 2021-02-15 19:34 | PC.NURSE ---
PATIENT HAD 1000 ML OUTPUT
[2021-02-15 20:36] LABS: ~Lactic Acid-LAB USE ONLY 2.8 mmol/L (0.5-2.0)
[2021-02-15 20:41] LABS: Troponin-I High Sensitivity 27.4 ng/L (<3.5-17.0)
[2021-02-15 20:51] LABS: Glucose, Whole Blood 232 mg/dL (60-115)
[2021-02-15] MEDS: Insulin Lispro 100 UNIT/ML 3 ML VIAL SUBCUT (21:31)
[2021-02-15] MEDS: Montelukast Sodium 10 MG TABLET PO (21:31)
[2021-02-15] MEDS: QUEtiapine Fumarate 50 MG TABLET PO (21:31)
[2021-02-15 22:17] LABS: Reflex Lactate? 2 Y
[2021-02-15 23:19] LABS: ~Lactic Acid-LAB USE ONLY 3.8 mmol/L (0.5-2.0)
--- NOTE | 2021-02-15 23:40 | PM.EVENT ---
Event Note Date of Service: 02/16/21 Event Note: Lactic acidosis: Lactic acidosis increasing. Will keep the patient on gentle IV fluids. Hold next dose of Lasix. A.m. team to follow-up. Monitor for Signs of fluid overload. Hypertension: Patient has elevated blood pressure of 190/105. Given extra dose losartan 25 mg. Tachycardia: multifactorial; pt was tachy to 160s; asymptomatic; Likely from anxiety vs Nebulisers. Resumed home Coreg; Given Metoprolol
[2021-02-16] VITALS (19 sets, daily range): BP systolic 120–164; BP diastolic 74–109; PULSE 69–170; RESP 16–22; TEMP 36.4–37; O2SAT 88–99
[2021-02-16] MEDS: Losartan Potassium 25 MG TABLET PO (01:06)
[2021-02-16] MEDS: 0.9 % Sodium Chloride Flush 3 ML SYRINGE IVFLUSH ×4 (01:06→23:50)
[2021-02-16] MEDS: Sodium Chloride 0.45 % 1,000 ML 80 ML IVCONT ×2 (01:12→13:07)
[2021-02-16 02:31] LABS: Adenovirus PCR Not Detected (Not Detect.); Bordetella parapertussis PCR Not Detected (Not Detect.); Bordetella pertussis PCR Not Detected (Not Detect.); Chlamydia pneumoniae PCR Not Detected (Not Detect.); Coronavirus 229E PCR Not Detected (Not Detect.); Coronavirus HKU1 PCR Not Detected (Not Detect.); Coronavirus NL63 PCR Not Detected (Not Detect.); Coronavirus OC43 PCR Not Detected (Not Detect.); Human metapneumovirus PCR Not Detected (Not Detect.); Influenza A PCR Not Detected (Not Detect.); Influenza B PCR Not Detected (Not Detect.); Mycoplasma pneumoniae PCR Not Detected (Not Detect.); Parainfluenza 1 PCR Not Detected (Not Detect.); Parainfluenza 2 PCR Not Detected (Not Detect.); Parainfluenza 3 PCR Not Detected (Not Detect.); Parainfluenza 4 PCR Not Detected (Not Detect.); RSV PCR Not Detected (Not Detect.); Rhino/Enterovirus PCR Not Detected (Not Detect.); SARS-CoV-2 PCR Not Detected (Not Detect.)
[2021-02-16] MEDS: Acetaminophen 325 MG TABLET 650 MG PO (04:13)
--- NOTE | 2021-02-16 04:32 | PC.NURSE ---
Repeat EKG done at 0430 on pt and given to Dr. Bateman
[2021-02-16] MEDS: Metoprolol Tartrate 5 MG/5 ML VIAL IVPUSH (04:51)
[2021-02-16] MEDS: Doxycycline Hyclate 100 MG in 0.9 % Sodium Chloride 250 ML 166.67 MG IV ×2 (05:46→19:09)
[2021-02-16] MEDS: Omeprazole 20 MG CAPSULE.DR PO (05:47)
[2021-02-16] MEDS: carvediloL 6.25 MG TABLET PO ×2 (05:47→08:59)
[2021-02-16 06:00] LABS: Basophils Percent Auto 0.1 % (0-2); Hematocrit 32.3 % (37-47); Hemoglobin 9.9 g/dl (12.0-16.0); Imm Gran Pct Auto 0.6 % (0.0-0.4); Lymphocytes Absolute Auto 1.1 X10*3/uL (1.2-4.9); Lymphocytes Percent Auto 6.8 % (20-40); MANUAL DIFF FLAG NO; Mean Corpuscular HGB Conc 30.7 g/dl (31.0-35.0); Mean Corpuscular Hemoglobin 23.6 pg (27.0-33.0); Mean Corpuscular Volume 77.1 fL (80-98); Mean Platelet Volume 9.9 fL (9.4-12.3); Monocytes Absolute Auto 0.9 X10*3/uL (0.1-1.2); Monocytes Percent Auto 5.7 % (2-11); Neutrophils Absolute Auto 14.1 X10*3/uL (2.0-8.3); Neutrophils Percent Auto 86.8 % (45-73); Platelet Count 189 X10*3/uL (160-400); Red Blood Count 4.19 X10*6/uL (4.20-5.50); Red Cell Distribution Width 15.6 % (11.0-16.0); White Blood Count 16.3 X10*3/uL (4.8-10.8)
[2021-02-16 06:15] LABS: Anion Gap 14 (12-20); Blood Urea Nitrogen 12 mg/dL (9-16); Calcium 9.4 mg/dL (8.4-10.2); Carbon Dioxide 27 mmol/L (22-29); Chloride 100 mmol/L (96-108); Creatinine Clr Calc Pharmacy 70.2; Estimated Glomerular Filt Rate > 60; Glucose Random 130 mg/dL (60-115); Iron 24 mcg/dL (30-160); Magnesium 2.2 mg/dL (1.6-2.6); Percent Iron Saturation 6 % (15-50); Potassium 3.3 mmol/L (3.3-5.1); Sodium 138 mmol/L (135-145); Total Iron Binding Capacity 377 mcg/dL (228-428); Unsaturated Iron Binding 353 ug/dL
[2021-02-16 06:20] LABS: B Type Natriuretic Peptide 595 pg/mL (<100)
[2021-02-16 06:35] LABS: Ferritin 18 ng/mL (10-250)
[2021-02-16] MEDS: Morphine Sulfate 2 MG/ML CARTRIDGE 1 MG IVPUSH (06:53)
[2021-02-16 07:38] LABS: Cancel Lactic Acid Canceled
[2021-02-16 08:10] LABS: Glucose, Whole Blood 114 mg/dL (60-115)
[2021-02-16] MEDS: Sertraline HCL 100 MG TABLET 200 MG PO (08:59)
[2021-02-16] MEDS: Furosemide 40 MG/4 ML VIAL IVPUSH ×2 (08:59→18:28)
[2021-02-16] MEDS: Ferrous Sulfate 324 MG TABLET.DR PO (09:00)
[2021-02-16] MEDS: Losartan Potassium 50 MG TABLET PO (09:00)
[2021-02-16] MEDS: Isosorbide Mononitrate 30 MG TAB.ER.24H PO (09:01)
[2021-02-16] MEDS: QUEtiapine Fumarate 50 MG TABLET PO ×2 (09:01→20:55)
[2021-02-16] MEDS: Folic Acid 1 MG TABLET PO (09:01)
--- NOTE | 2021-02-16 11:09 | PM.CNCAR ---
History of Present Illness History of Present Illness Date of Service: 02/16/21 Requesting physician: Ashutosh Card Consult reason: congestive heart failure Chief complaint: hypoxia,copd,pna Narrative: I was requested to see Paola in cardiology consultation for acute hypoxic respiratory failure. She is a 60-year-old female who is a poor historian despite the certified industrial therapist at bedside. Patient does not know much of her prior history. She has prior history what appears to be nonischemic cardiomyopathy with LVEF of 30-35% with heart failure syndrome, has not currently seen a center receptionist in last 3 months since her discharge from the hospital last time with hypoxic respiratory failure. Patient in the usual state of health home has poor functional capacity with shortness of breath with minimal exertion doing her day-to-day activities. 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 She was noted to be hypoxic respiratory failure which radiated high level of oxygen supplementation. She was then treated for both COPD exacerbation as well as congestive heart failure and received IV Lasix, again urine output is not accurately charted. However the canister is completely full with the urine. Patient says compared to yesterday she feels a lot better. She has not had any recent fever chills or worsening cough productive of phlegm. Will she had chest pressure yesterday associated with sudden-onset shortness of breath but does not have any current chest discomfort. No palpitations, lightheadedness, syncope. No EKG was performed on admission. Troponins are minimally elevated but flat. Review of Systems Constitutional: Constitutional: Reports no additional constitutional complaints Eyes: Eyes: Reports no additional eye complaints Cardiovascular: Cardiovascular: Reports chest pain, Denies lightheadedness, Denies Loss of Consciousness, Denies palpitations and Reports dyspnea Respiratory: Respiratory: Reports cough and Reports dyspnea Gastrointestinal: Gastrointestinal: Reports no additional gastrointestinal complaints Genitourinary: Genitourinary: Reports no additional female genitourinary complaints Musculoskeletal: Musculoskeletal: Reports no additional musculoskeletal complaints Integumentary/Breasts: Skin/Breast: Reports system reviewed and no additional complaints, except as docu Neurologic: Reports system reviewed and no additional complaints, except as documented Psychiatric: Psychiatric: Reports no additional psychiatric complaints Endocrine: Endocrine: Reports no additional endocrine complaints and Denies palpitations [facility] Past Medical History Medical History Acute and chronic respiratory failure with hypoxia Acute exacerbation of chronic obstructive pulmonary disease Acute on chronic respiratory failure with hypoxemia Anemia Anxiety Cardiomyopathy Chronic respiratory failure Congestive heart failure COPD (chronic obstructive pulmonary disease) COPD exacerbation Depression Diabetes Essential hypertension HFrEF (heart failure with reduced ejection fraction) HLD (hyperlipidemia) HTN (hypertension) Low back pain Mitral regurgitation Normocytic anemia KELLIE (obstructive sleep apnea) Postmenopausal Respiratory failure, acute Severe chronic obstructive pulmonary disease Supplemental oxygen dependent Tobacco abuse Family History Family History Father No problems noted. Mother Liver cancer Hypertension Surgical History Surgical History Bilateral ankle fractures History of total abdominal hysterectomy Social History Social History Household Members: Family Housing: House Do you presently have visiting nurse or other home services: No Alcohol intake: never Patient Tobacco Use Status: Current everyday Tobacco user Tobacco use type: Cigarette Cigarette Packs Per Day: 1 Cigarettes Per Day: 6 Second Hand Smoke Exposure: No Use of substances other than those prescribed or required for medical reasons: No Advance Directives: Yes Advance Directives on File: Yes Advance Directives Date on File: 04/30/20 service: No Current occupational status: unemployed, retired and disabled Meds Allergies Allergy/AdvReac Type Severity Reaction Status Date / Time nicotine [Nicotine] Allergy Unknown ITCHING Verified 05/21/20 10:40 WITH THE PATCHES topiramate Allergy Unknown inadequealte Verified 05/21/20 10:40 response Active Medications: Current Medications Acetaminophen (Acetaminophen 325 Mg Tablet) 650 mg PO Q6H PRN PRN Reason: Pain, Mild (Pain Scale 1-3) Last Admin: 02/16/21 04:13 Dose: 650 mg Documented by: Carvedilol (Carvedilol 6.25 Mg Tablet) 6.25 mg PO BID WALDEMAR; Protocol Last Admin: 02/16/21 08:59 Dose: 6.25 mg Documented by: Dextrose (Dextrose 50 % 25 Gm/50 Ml Vial) 25 gm IVPUSH Q15M PRN; Protocol PRN Reason: per Hypoglycemia Standing Ord. Enoxaparin Sodium (Enoxaparin Sodium 40 Mg/0.4 Ml Syringe) 40 mg SUBCUT Q24H [facility] Last Admin: 02/15/21 18:39 Dose: 40 mg Documented by: Ferrous Sulfate (Ferrous Sulfate 324 Mg Tablet.) 324 mg PO DAILY [facility] Last Admin: 02/16/21 09:00 Dose: 324 mg Documented by: Folic Acid (Folic Acid 1 Mg Tablet) 1 mg PO DAILY [facility] Last Admin: 02/16/21 09:01 Dose: 1 mg Documented by: Furosemide (Furosemide 40 Mg/4 Ml Vial) 40 mg IVPUSH DAILY [facility]; Protocol Last Admin: 02/16/21 08:59 Dose: 40 mg Documented by: Glucose (Glucose Gel 15 Gm Gel..Gram.) 15 gm PO Q15M PRN; Protocol PRN Reason: per Hypoglycemia Standing Ord. Ceftriaxone Sodium 1 gm/ (Sodium Chloride) 50 mls @ 100 mls/hr IV Q24H [facility] Doxycycline Hyclate 100 mg/ (Sodium Chloride) 250 mls @ 166.67 mls/hr IV Q12H [facility] Last Infusion: 02/16/21 10:09 Dose: Infused Documented by: Sodium Chloride () 1,000 mls @ 80 mls/hr IVCONT .[id number] [facility] Last Admin: 02/16/21 01:12 Dose: 80 mls/hr Documented by: Insulin Human Lispro (Insulin Lispro 100 Unit/Ml 3 Ml Vial) 0 unit SUBCUT QIDACHS [facility]; Protocol Last Admin: 02/16/21 08:07 Dose: Not Given Documented by: Isosorbide Mononitrate (Isosorbide Mononitrate 30 Mg Tab.Er.24h) 30 mg PO DAILY [facility]; Protocol Last Admin: 02/16/21 09:01 Dose: 30 mg Documented by: Levalbuterol HCl (Levalbuterol Hcl 1.25 Mg/0.5 Ml Vial.Neb) 1.25 mg INHALE Q2H PRN PRN Reason: shortness of breath/wheeze Losartan Potassium (Losartan Potassium 50 Mg Tablet) 50 mg PO DAILY [facility]; Protocol Last Admin: 02/16/21 09:00 Dose: 50 mg Documented by: Methylprednisolone Sodium Succinate (Methylprednisolone Sod Succ 40 Mg/Ml Vial) 40 mg IVPUSH Q24H [facility] Montelukast Sodium (Montelukast Sodium 10 Mg Tablet) 10 mg PO BEDTIME [facility] Last Admin: 02/15/21 21:31 Dose: 10 mg Documented by: Nicotine Polacrilex (Nicotine Polacrilex 2 Mg Gum) 2 mg BUCCAL Q1H PRN PRN Reason: nicotine crav Omeprazole (Omeprazole 20 Mg Capsule.Dr) 20 mg PO DAILY@0630 [facility] Last Admin: 02/16/21 05:47 Dose: 20 mg Documented by: Ondansetron HCl (Ondansetron Hcl 4 Mg/2 Ml Vial) 4 mg IVPUSH Q8H PRN PRN Reason: Nausea and Vomiting Pharmacy Consult (Consult Rx Perform Med Rec) 1 each MISCELLANE ONCE PRN PRN Reason: Consult order Quetiapine Fumarate (Quetiapine Fumarate 50 Mg Tablet) 50 mg PO BID [facility] Last Admin: 02/16/21 09:01 Dose: 50 mg Documented by: Sertraline HCl (Sertraline Hcl 100 Mg Tablet) 200 mg PO DAILY [facility] Last Admin: 02/16/21 08:59 Dose: 200 mg Documented by: Sodium Chloride (0.9 % Sodium Chloride Flush 3 Ml Syringe) 3 ml IVFLUSH QSHIFT [facility] Last Admin: 02/16/21 09:05 Dose: 3 ml Documented by: Tiotropium [place] (Tiotropium [place] 18 Mcg Cap.W.Dev) 1 puff INHALE RDAILY [facility] Last Admin: 02/16/21 07:40 Dose: Not Given Documented by: Trazodone HCl (Trazodone Hcl 100 Mg Tablet) 100 mg PO BEDTIME PRN PRN Reason: Sleep Home Medications Medication Instructions Recorded Confirmed Last Taken Type trazodone 50 mg tablet 100 mg PO BEDTIME PRN 03/08/20 02/15/21 05/12/20 History ipratropium 0.5 mg-albuterol 3 mg 3 ml INHALATION QID PRN 02/15/21 02/15/21 Unknown History (2.5 mg base)/3 mL nebulization soln Physical Exam Vital Signs: Vital Signs: Last Vital Signs Temp 98.2 F 02/15/21 23:43 Pulse 87 02/16/21 09:08 Resp 22 H 02/16/21 09:08 BP 153/109 H 02/16/21 09:08 Pulse Ox 98 02/16/21 09:08 Oxygen Flow Rate 3 02/15/21 13:47 Body Mass Index 34.1 Const: General: cooperative, comfortable, alert, awake and in distress moderate and respiratory Nutritional Appearance: obese Orientation/consciousness: patient oriented x3 HENMT: Head: Yes normocephalic and Yes atraumatic Neck: Neck: Yes trachea midline, Yes supple and Yes other (Cannot evaluate JVD) Resp: Effort & Inspection: normal respiratory effort Auscultation: rales bilateral at the base and 1/[address] and diminished lung sounds Cardio: Palpation: normal PMI Rate: regular rate Rhythm: regular rhythm Heart sounds: S1 normal heart sound present, S2 normal heart sound present, no click, no gallops, no murmurs and no rubs GI: Auscultation: normal bowel sounds Skin: General skin exam: no rashes or lesions noted Neuro: General: patient oriented x3 and no focal motor deficits Extrem: General: Yes no clubbing, cyanosis or edema Psych: Appearance: grossly normal Affect: Anxious affect present Results Labs and Meds Result diagrams: 02/16/21 05:55 02/16/21 05:55 Lab results: Laboratory Results - last 24 hr 02/15/21 02/15/21 02/15/21 15:30 15:30 15:30 WBC 10.0 RBC 4.18 L Hgb 9.8 L Hct 32.9 L MCV 78.7 L MCH 23.4 L MCHC 29.8 L RDW 15.4 Plt Count 202 MPV 9.9 Immature Gran % (Auto) 0.3 Neut % (Auto) 75.2 H Lymph % (Auto) 20.0 [place] % (Auto) 4.2 Eos % (Auto) 0.2 Baso % (Auto) 0.1 Lymph # (Auto) 2.0 [place] # (Auto) 0.4 Eos # (Auto) 0.0 Baso # (Auto) 0.0 Abs Immat Gran (auto) 0.03 Absolute Neuts (auto) 7.5 Absolute Nucleated RBC 0.000 Nucleated RBC % (auto) 0.0 VBG pH VBG pCO2 VBG pO2 VBG HCO3 VBG O2 Saturation VBG Base Excess Sodium 140 Potassium 3.8 Chloride 100 Carbon Dioxide 29 Anion Gap 15 BUN 9 D Creatinine 0.78 Estim Creat Clear Calc 69.4 Estimated GFR > 60 POC Glucose Random Glucose 105 Lactic Acid 2.7 H* Lactic Acid Fup @ 2Hr Lactic Acid Fup @ 4Hr Calcium 9.3 Magnesium 2.6 Iron TIBC % Saturation Unsat Iron Binding Ferritin Total Bilirubin 0.5 Direct Bilirubin < 0.2 AST 24 D ALT 9 Alkaline Phosphatase 143 H Troponin I High Sens B-Natriuretic Peptide Total Protein 8.3 H Albumin 4.3 Procalcitonin Urine Color Urine Appearance Urine pH Ur Specific [place] Urine Protein Urine Glucose (UA) Urine Ketones Urine Blood Urine Nitrite Ur Leukocyte Esterase Respiratory Panel Joseph Adenovirus (Rapid PCR) B.pert (TEM-PCR) B.parapertussis DNA PCR C. pneumoniae DNA (PCR) Coronavirus OC43 (PCR) Coronavirus HKU1 (PCR) Coronavirus 229E (PCR) COVID-19 (ANEL) COVID-19 Clin Com Coronavirus NL63 (PCR) Human Metapneumovir PCR Influenza A (RT-PCR) Influenza B (RT-PCR) M. pneumoniae (PCR) Parainfluenza 1 (PCR) Parainfluenza 2 (PCR) Parainfluenza 3 (PCR) Parainfluenza 4 (PCR) RSV (PCR) Entero/Rhino (PCR) SARS-CoV-2 RNA (RT-PCR) 02/15/21 02/15/21 02/15/21 15:30 15:30 15:36 WBC RBC Hgb Hct MCV MCH MCHC RDW Plt Count MPV Immature Gran % (Auto) Neut % (Auto) Lymph % (Auto) [place] % (Auto) Eos % (Auto) Baso % (Auto) Lymph # (Auto) [place] # (Auto) Eos # (Auto) Baso # (Auto) Abs Immat Gran (auto) Absolute Neuts (auto) Absolute Nucleated RBC Nucleated RBC % (auto) VBG pH 7.44 H VBG pCO2 45 VBG pO2 88 VBG HCO3 31 H VBG O2 Saturation 97.0 VBG Base Excess 6.5 Sodium Potassium Chloride Carbon Dioxide Anion Gap BUN Creatinine Estim Creat Clear Calc Estimated GFR POC Glucose Random Glucose Lactic Acid Lactic Acid Fup @ 2Hr Lactic Acid Fup @ 4Hr Calcium Magnesium Iron TIBC % Saturation Unsat Iron Binding Ferritin Total Bilirubin Direct Bilirubin AST ALT Alkaline Phosphatase Troponin I High Sens 25.9 H* B-Natriuretic Peptide 576 H Total Protein Albumin Procalcitonin 0.02 Urine Color Urine Appearance Urine pH Ur Specific [place] Urine Protein Urine Glucose (UA) Urine Ketones Urine Blood Urine Nitrite Ur Leukocyte Esterase Respiratory Panel Joseph Adenovirus (Rapid PCR) B.pert (TEM-PCR) B.parapertussis DNA PCR C. pneumoniae DNA (PCR) Coronavirus OC43 (PCR) Coronavirus HKU1 (PCR) Coronavirus 229E (PCR) COVID-19 (ANEL) COVID-19 Clin Com Coronavirus NL63 (PCR) Human Metapneumovir PCR Influenza A (RT-PCR) Influenza B (RT-PCR) M. pneumoniae (PCR) Parainfluenza 1 (PCR) Parainfluenza 2 (PCR) Parainfluenza 3 (PCR) Parainfluenza 4 (PCR) RSV (PCR) Entero/Rhino (PCR) SARS-CoV-2 RNA (RT-PCR) 02/15/21 02/15/21 02/15/21 16:22 16:22 20:11 WBC RBC Hgb Hct MCV MCH MCHC RDW Plt Count MPV Immature Gran % (Auto) Neut % (Auto) Lymph % (Auto) [place] % (Auto) Eos % (Auto) Baso % (Auto) Lymph # (Auto) [place] # (Auto) Eos # (Auto) Baso # (Auto) Abs Immat Gran (auto) Absolute Neuts (auto) Absolute Nucleated RBC Nucleated RBC % (auto) VBG pH VBG pCO2 VBG pO2 VBG HCO3 VBG O2 Saturation VBG Base Excess Sodium Potassium Chloride Carbon Dioxide Anion Gap BUN Creatinine Estim Creat Clear Calc Estimated GFR POC Glucose Random Glucose Lactic Acid Lactic Acid Fup @ 2Hr 2.8 H* Lactic Acid Fup @ 4Hr Calcium Magnesium Iron TIBC % Saturation Unsat Iron Binding Ferritin Total Bilirubin Direct Bilirubin AST ALT Alkaline Phosphatase Troponin I High Sens B-Natriuretic Peptide Total Protein Albumin Procalcitonin Urine Color STRAW Urine Appearance CLEAR Urine pH 6.0 Ur Specific [place] <= 1.005 Urine Protein NEG Urine Glucose (UA) NEG Urine Ketones NEG Urine Blood NEG Urine Nitrite NEG Ur Leukocyte Esterase NEG Respiratory Panel Joseph Adenovirus (Rapid PCR) B.pert (TEM-PCR) B.parapertussis DNA PCR C. pneumoniae DNA (PCR) Coronavirus OC43 (PCR) Coronavirus HKU1 (PCR) Coronavirus 229E (PCR) COVID-19 (ANEL) Negative COVID-19 Clin Com See Note Coronavirus NL63 (PCR) Human Metapneumovir PCR Influenza A (RT-PCR) Influenza B (RT-PCR) M. pneumoniae (PCR) Parainfluenza 1 (PCR) Parainfluenza 2 (PCR) Parainfluenza 3 (PCR) Parainfluenza 4 (PCR) RSV (PCR) Entero/Rhino (PCR) SARS-CoV-2 RNA (RT-PCR) 02/15/21 02/15/21 02/15/21 20:11 20:45 22:49 WBC RBC Hgb Hct MCV MCH MCHC RDW Plt Count MPV Immature Gran % (Auto) Neut % (Auto) Lymph % (Auto) [place] % (Auto) Eos % (Auto) Baso % (Auto) Lymph # (Auto) [place] # (Auto) Eos # (Auto) Baso # (Auto) Abs Immat Gran (auto) Absolute Neuts (auto) Absolute Nucleated RBC Nucleated RBC % (auto) VBG pH VBG pCO2 VBG pO2 VBG HCO3 VBG O2 Saturation VBG Base Excess Sodium Potassium Chloride Carbon Dioxide Anion Gap BUN Creatinine Estim Creat Clear Calc Estimated GFR POC Glucose 232 H Random Glucose Lactic Acid Lactic Acid Fup @ 2Hr Lactic Acid Fup @ 4Hr 3.8 H* Calcium Magnesium Iron TIBC % Saturation Unsat Iron Binding Ferritin Total Bilirubin Direct Bilirubin AST ALT Alkaline Phosphatase Troponin I High Sens 27.4 H* B-Natriuretic Peptide Total Protein Albumin Procalcitonin Urine Color Urine Appearance Urine pH Ur Specific [place] Urine Protein Urine Glucose (UA) Urine Ketones Urine Blood Urine Nitrite Ur Leukocyte Esterase Respiratory Panel Joseph Adenovirus (Rapid PCR) B.pert (TEM-PCR) B.parapertussis DNA PCR C. pneumoniae DNA (PCR) Coronavirus OC43 (PCR) Coronavirus HKU1 (PCR) Coronavirus 229E (PCR) COVID-19 (ANEL) COVID-19 Clin Com Coronavirus NL63 (PCR) Human Metapneumovir PCR Influenza A (RT-PCR) Influenza B (RT-PCR) M. pneumoniae (PCR) Parainfluenza 1 (PCR) Parainfluenza 2 (PCR) Parainfluenza 3 (PCR) Parainfluenza 4 (PCR) RSV (PCR) Entero/Rhino (PCR) SARS-CoV-2 RNA (RT-PCR) 02/16/21 02/16/21 02/16/21 02:25 05:55 05:55 WBC 16.3 H RBC 4.19 L Hgb 9.9 L Hct 32.3 L MCV 77.1 L MCH 23.6 L MCHC 30.7 L RDW 15.6 Plt Count 189 MPV 9.9 Immature Gran % (Auto) 0.6 H Neut % (Auto) 86.8 H Lymph % (Auto) 6.8 L [place] % (Auto) 5.7 Eos % (Auto) 0.0 Baso % (Auto) 0.1 Lymph # (Auto) 1.1 L [place] # (Auto) 0.9 Eos # (Auto) 0.0 Baso # (Auto) 0.0 Abs Immat Gran (auto) 0.10 H Absolute Neuts (auto) 14.1 H Absolute Nucleated RBC 0.000 Nucleated RBC % (auto) 0.0 VBG pH VBG pCO2 VBG pO2 VBG HCO3 VBG O2 Saturation VBG Base Excess Sodium 138 Potassium 3.3 Chloride 100 Carbon Dioxide 27 Anion Gap 14 BUN 12 Creatinine 0.77 Estim Creat Clear Calc 70.2 Estimated GFR > 60 POC Glucose Random Glucose 130 H Lactic Acid Lactic Acid Fup @ 2Hr Lactic Acid Fup @ 4Hr Calcium 9.4 Magnesium 2.2 Iron 24 L TIBC 377 % Saturation 6 L Unsat Iron Binding 353 Ferritin 18 Total Bilirubin Direct Bilirubin AST ALT Alkaline Phosphatase Troponin I High Sens B-Natriuretic Peptide Total Protein Albumin Procalcitonin Urine Color Urine Appearance Urine pH Ur Specific [place] Urine Protein Urine Glucose (UA) Urine Ketones Urine Blood Urine Nitrite Ur Leukocyte Esterase Respiratory Panel Joseph See Note Adenovirus (Rapid PCR) Not Detected B.pert (TEM-PCR) Not Detected B.parapertussis DNA PCR Not Detected C. pneumoniae DNA (PCR) Not Detected Coronavirus OC43 (PCR) Not Detected Coronavirus HKU1 (PCR) Not Detected Coronavirus 229E (PCR) Not Detected COVID-19 (ANEL) COVID-19 Clin Com Coronavirus NL63 (PCR) Not Detected Human Metapneumovir PCR Not Detected Influenza A (RT-PCR) Not Detected Influenza B (RT-PCR) Not Detected M. pneumoniae (PCR) Not Detected Parainfluenza 1 (PCR) Not Detected Parainfluenza 2 (PCR) Not Detected Parainfluenza 3 (PCR) Not Detected Parainfluenza 4 (PCR) Not Detected RSV (PCR) Not Detected Entero/Rhino (PCR) Not Detected SARS-CoV-2 RNA (RT-PCR) Not Detected 02/16/21 02/16/21 02/16/21 05:55 05:55 08:06 WBC RBC Hgb Hct MCV MCH MCHC RDW Plt Count MPV Immature Gran % (Auto) Neut % (Auto) Lymph % (Auto) [place] % (Auto) Eos % (Auto) Baso % (Auto) Lymph # (Auto) [place] # (Auto) Eos # (Auto) Baso # (Auto) Abs Immat Gran (auto) Absolute Neuts (auto) Absolute Nucleated RBC Nucleated RBC % (auto) VBG pH VBG pCO2 VBG pO2 VBG HCO3 VBG O2 Saturation VBG Base Excess Sodium Potassium Chloride Carbon Dioxide Anion Gap BUN Creatinine Estim Creat Clear Calc Estimated GFR POC Glucose 114 Random Glucose Lactic Acid Cancelled Lactic Acid Fup @ 2Hr Lactic Acid Fup @ 4Hr Calcium Magnesium Iron TIBC % Saturation Unsat Iron Binding Ferritin Total Bilirubin Direct Bilirubin AST ALT Alkaline Phosphatase Troponin I High Sens B-Natriuretic Peptide 595 H Total Protein Albumin Procalcitonin Urine Color Urine Appearance Urine pH Ur Specific [place] Urine Protein Urine Glucose (UA) Urine Ketones Urine Blood Urine Nitrite Ur Leukocyte Esterase Respiratory Panel Joseph Adenovirus (Rapid PCR) B.pert (TEM-PCR) B.parapertussis DNA PCR C. pneumoniae DNA (PCR) Coronavirus OC43 (PCR) Coronavirus HKU1 (PCR) Coronavirus 229E (PCR) COVID-19 (ANEL) COVID-19 Clin Com Coronavirus NL63 (PCR) Human Metapneumovir PCR Influenza A (RT-PCR) Influenza B (RT-PCR) M. pneumoniae (PCR) Parainfluenza 1 (PCR) Parainfluenza 2 (PCR) Parainfluenza 3 (PCR) Parainfluenza 4 (PCR) RSV (PCR) Entero/Rhino (PCR) SARS-CoV-2 RNA (RT-PCR) Imaging Radiologist's impression: Impressions Chest X-Ray 02/15/21 14:01 IMPRESSION: Patchy bibasilar airspace opacities, new when compared to the prior examination. Findings may represent atelectasis versus early infiltrates. Assessment and Plan (1) Acute congestive heart failure: Status: Acute Acute congestive often this middle-aged woman with known prior history of what appears to be nonischemic cardiomyopathy LVEF 30-35%. Last admitted about 3 months ago, no outpatient followup since then. She is not on appropriate neurohormonal modulation as outpatient. Clinically still appears to be having bilateral rales and in decompensated congestive heart failure. Continue IV diuresis. Strict intake and output put chart needs to be pursued in this decompensated heart failure patient which is very important to help manage her heart failure syndrome. Her blood pressure is elevated and I think she would benefit from Entresto therapy. Also add Aldactone 12.5 mg to her regimen. Once her heart failure syndrome with better control should also be on a beta-coco for neurohormonal modulation. Continue treatment for COPD exacerbation as per the hospitalist team. Continue oxygen supplementation supportive care. CHF education needs to be provided. In future I think she might be a good candidate for CardioMEMS device given her recurrent hospitalization. Of her LVEF is persistently severely depressed also should consider ICD placement after proper neurohormonal modulation treatment has been initiated. Will follow with you thank you for allowing us to partake in the care Procedures Date of Service Date of Service: 02/16/21
[2021-02-16 11:14] LABS: Glucose, Whole Blood 100 mg/dL (60-115)
[2021-02-16] MEDS: Spironolactone 25 MG TABLET 12.5 MG PO (13:09)
--- NOTE | 2021-02-16 14:00 | CA_ITS ---
Transthoracic Echocardiogram Patient (Last, First, Middle): Paola Romero, Gender: Female Date of : 1960 Age: 60 Procedure Date: 02/16/2021 Procedure Type: Transthoracic Echocardiogram Location: [facility] [place] Height: 149.86 cm Weight: 76.66 kg BSA: 1.72 m2 Heart Rate: bpm BP: 153 / 109 mmHg Manager Data Warehouse: Referring MD: Ashutosh Card MD Bullet Casting Operator: Bhupendra Germain MD Symptoms: hf, refer EF, hypoxia Study Quality: Fair ECG Rhythm: Sinus Conclusions: - 1. Moderate to severe LV systolic dysfunction with LVEF of 30 35% with mild LVH with impaired relaxation filling pattern 2. At least moderately dilated left atrium 3. Moderate mitral regurgitation 4. Moderately elevated right ventricular systolic pressure 5. No gross pericardial effusion Findings Left Ventricle Normal left ventricular cavity size. There is mildly increased left ventricular wall thickness. The left ventricular systolic function is moderate to severely decreased. The visually estimated ejection fraction is between 30-35%. There is severe global hypokinesis. Spectral Doppler is indicative of an impaired relaxation filling pattern. E/E prime ratio is between 8 and 15 consistent with indeterminate filling pressures. Right Ventricle Mildly increased right ventricular cavity size. There is low normal right ventricular systolic function. Atria The left atrium is moderately dilated. Interatrial shunt cannot be excluded. The right atrium is mildly dilated. Aortic Valve The aortic valve structure and function is likely normal. There is no aortic valve stenosis. There is no aortic valve regurgitation. Mitral Valve There is mild anterior and posterior mitral leaflet thickening. There is moderate mitral valve regurgitation. There is no mitral valve stenosis. Pulmonic Valve The pulmonic valve was not well visualized. Tricuspid Valve Likely normal tricuspid valve structure and function. There is mild to moderate tricuspid valve regurgitation. Mildly elevated right atrial pressure. Moderate pulmonary hypertension is present. Great Vessels All visible segments of the aorta are normal in size. The pulmonary artery was not well visualized. Venous The inferior vena cava is mildly dilated and collapses less than 50% with inspiration. Pericardium/Pleural There is no evidence of pericardial effusion. Prior Study Comparison No significant change compared to prior study dated: 06/18/2020. Measurements 2D Linear Measurements IVSd: 1.26 0.6-0.9/0.6-1.0 cm LVIDd: 5.15 3.9-5.3/4.2-5.9 cm LVIDd Index: 2.99 2.4-3.2/2.2-3.1 cm/m2 LVIDs: 4.10 2.0-3.6 cm LVPWd: 1.26 0.7-1.1 cm Ao Root: 3.00 2.1-3.5 cm LA Diam: 4.40 2.7-3.8/3.0-4.0 cm LAIDs Index: 2.56 1.5-2.3 cm/m2 LV Mass: 327.21 67-162/88-224 g LV Mass Index: 190.24 43-95/49-115 g/m2 LVOT Diam: 2.30 3.0+(-)1.3 cm 2D Systolic Function EF 4C: 28.20 >55% EF 2C: 37.30 >55% EF BiP: 34.60 >55% Mitral Valve MV Pk E: 0.69 MV PK A: 0.87 MV Decel Time: 242.00 E/A: 0.80 E'Lateral: 4.79 E'Medial: 2.94 E/E' Med: 23.60 E/E' Lat: 14.50 PHT: 71.00 MVA PHT: 3.10 Decel Charlotte: 2.86 Aortic Valve AoV Pk Ambrosio: 1.19 AoV Mn Ambrosio: 0.81 AoV VTI: 0.23 AoV Pk Grad: 6.00 Aov Mn Grad: 3.00 PEPITO Cont.VTI: 2.90 LVOT LVOT Pk Ambrosio: 0.76 LVOT Mn Ambrosio: 0.46 LVOT VTI: 0.16 LVOT Pk Grad: 2.00 LVOT Mn Grad: 1.00 LVOT Diam: 2.30 LVOT Area: 4.15 Diastolic Function MV Pk E: 0.69 MV Pk A: 0.87 E/A: 0.80 E'Medial: 2.94 E/E' Med: 23.60 E' Laterial: 4.79 E/E' Lat: 14.50 Tricuspid Valve TR Pk Ambrosio: 3.27 TR Pk Grad: 43.00 RA Press: 8.00 RVSP: 51.00 Great Vessels Aorta Ao Root-2D: 3.00 2.0-3.7 cm Ao Asc: 3.30 2.1-3.4 cm Pulmonary Valve PV Pk Ambrosio: 0.88 Peak PV Grad: 3.00 Updated in Other Vendor System with Status of Final Bhupendra Germain MD electronically signed on 02/17/2021 1:54:19 PM with status of Final
--- NOTE | 2021-02-16 15:38 | P.PNIM_ITS ---
Subjective Subjective Date of Service: 02/16/21 Interval History: Patient interviewed in [place] Dyspnea improved No chest pain No fever This am 4:00-6:30 had SVT in the 160s Review of Systems Review of Systems: Yes all other systems are reviewed and are negative Physical Exam Vital Signs: Vital Signs: Last Vital Signs Temp 98.5 F 02/16/21 14:25 Pulse 75 02/16/21 14:25 Resp 16 02/16/21 14:25 BP 158/98 H 02/16/21 14:25 Pulse Ox 99 02/16/21 14:25 Oxygen Flow Rate 3 02/15/21 13:47 Body Mass Index 34.1 Gen: NAD HEENT: sclera anicteric, moist mucus membranes Neck: supple, JVD present Lungs: coarse inspiratory crackles at bases bilaterally Heart: regular rate and rhythm, no murmurs Abd: soft, non-tender, non-distended, obese Ext: no edema Skin: warm/well-perfused Neuro: alert and oriented x3, no focal findings Psych: appropriate affect Objective Data Active Medications Acetaminophen (Acetaminophen 325 Mg Tablet) 650 mg PO Q6H PRN PRN Reason: Pain, Mild (Pain Scale 1-3) Last Admin: 02/16/21 04:13 Dose: 650 mg Documented by: DIANE Dextrose (Dextrose 50 % 25 Gm/50 Ml Vial) 25 gm IVPUSH Q15M PRN; Protocol PRN Reason: per Hypoglycemia Standing Ord. Enoxaparin Sodium (Enoxaparin Sodium 40 Mg/0.4 Ml Syringe) 40 mg SUBCUT Q24H [facility] Last Admin: 02/15/21 18:39 Dose: 40 mg Documented by: LING Ferrous Sulfate (Ferrous Sulfate 324 Mg Tablet.) 324 mg PO DAILY [facility] Last Admin: 02/16/21 09:00 Dose: 324 mg Documented by: RIGOBERTO Folic Acid (Folic Acid 1 Mg Tablet) 1 mg PO DAILY [facility] Last Admin: 02/16/21 09:01 Dose: 1 mg Documented by: RIGOBERTO Furosemide (Furosemide 40 Mg/4 Ml Vial) 40 mg IVPUSH BID@0900,1800 [facility]; Protocol Glucose (Glucose Gel 15 Gm Gel..Gram.) 15 gm PO Q15M PRN; Protocol PRN Reason: per Hypoglycemia Standing Ord. Ceftriaxone Sodium 1 gm/ (Sodium Chloride) 50 mls @ 100 mls/hr IV Q24H [facility] Doxycycline Hyclate 100 mg/ (Sodium Chloride) 250 mls @ 166.67 mls/hr IV Q12H [facility] Last Infusion: 02/16/21 10:09 Dose: 0 mls/hr Documented by: RIGOBERTO Sodium Chloride () 1,000 mls @ 80 mls/hr IVCONT .[id number] [facility] Last Admin: 02/16/21 13:07 Dose: 80 mls/hr Documented by: RIGOBERTO Insulin Human Lispro (Insulin Lispro 100 Unit/Ml 3 Ml Vial) 0 unit SUBCUT QIDACHS [facility]; Protocol Last Admin: 02/16/21 11:12 Dose: Not Given Documented by: RIGOBERTO Non-Admin Reason: No Insulin Coverage Isosorbide Mononitrate (Isosorbide Mononitrate 30 Mg Tab.Er.24h) 30 mg PO DAILY [facility]; Protocol Last Admin: 02/16/21 09:01 Dose: 30 mg Documented by: RIGOBERTO Levalbuterol HCl (Levalbuterol Hcl 1.25 Mg/0.5 Ml Vial.Neb) 1.25 mg INHALE Q2H PRN PRN Reason: shortness of breath/wheeze Losartan Potassium (Losartan Potassium 50 Mg Tablet) 50 mg PO DAILY [facility]; Protocol Last Admin: 02/16/21 09:00 Dose: 50 mg Documented by: RIGOBERTO Methylprednisolone Sodium Succinate (Methylprednisolone Sod Succ 40 Mg/Ml Vial) 40 mg IVPUSH Q24H [facility] Montelukast Sodium (Montelukast Sodium 10 Mg Tablet) 10 mg PO BEDTIME [facility] Last Admin: 02/15/21 21:31 Dose: 10 mg Documented by: IRIS Nicotine Polacrilex (Nicotine Polacrilex 2 Mg Gum) 2 mg BUCCAL Q1H PRN PRN Reason: nicotine crav Omeprazole (Omeprazole 20 Mg Capsule.) 20 mg PO DAILY@0630 [facility] Last Admin: 02/16/21 05:47 Dose: 20 mg Documented by: DIANE Ondansetron HCl (Ondansetron Hcl 4 Mg/2 Ml Vial) 4 mg IVPUSH Q8H PRN PRN Reason: Nausea and Vomiting Pharmacy Consult (Consult Rx Perform Med Rec) 1 each MISCELLANE ONCE PRN PRN Reason: Consult order Quetiapine Fumarate (Quetiapine Fumarate 50 Mg Tablet) 50 mg PO BID [facility] Last Admin: 02/16/21 09:01 Dose: 50 mg Documented by: RIGOBERTO Sertraline HCl (Sertraline Hcl 100 Mg Tablet) 200 mg PO DAILY [facility] Last Admin: 02/16/21 08:59 Dose: 200 mg Documented by: RIGOBERTO Sodium Chloride (0.9 % Sodium Chloride Flush 3 Ml Syringe) 3 ml IVFLUSH QSHIFT [facility] Last Admin: 02/16/21 09:05 Dose: 3 ml Documented by: RIGOBERTO Spironolactone (Spironolactone 25 Mg Tablet) 12.5 mg PO DAILY [facility]; Protocol Last Admin: 02/16/21 13:09 Dose: 12.5 mg Documented by: RIGOBERTO Tiotropium [place] (Tiotropium [place] 18 Mcg Cap.W.Dev) 1 puff INHALE RDAILY [facility] Last Admin: 02/16/21 07:40 Dose: Not Given Documented by: MANISH Non-Admin Reason: Med Not Available Trazodone HCl (Trazodone Hcl 100 Mg Tablet) 100 mg PO BEDTIME PRN PRN Reason: Sleep Labs CBC & Chem 7: 02/16/21 05:55 02/16/21 05:55 Labs: Laboratory Results - last 24 hr 02/15/21 02/15/21 02/15/21 15:30 15:30 15:30 MCV 78.7 L MCH 23.4 L MCHC 29.8 L RDW 15.4 Plt Count 202 MPV 9.9 Immature Gran % (Auto) 0.3 Neut % (Auto) 75.2 H Lymph % (Auto) 20.0 [place] % (Auto) 4.2 Eos % (Auto) 0.2 Baso % (Auto) 0.1 Lymph # (Auto) 2.0 [place] # (Auto) 0.4 Eos # (Auto) 0.0 Baso # (Auto) 0.0 Abs Immat Gran (auto) 0.03 Absolute Neuts (auto) 7.5 Absolute Nucleated RBC 0.000 Nucleated RBC % (auto) 0.0 VBG pH VBG pCO2 VBG pO2 VBG HCO3 VBG O2 Saturation VBG Base Excess Anion Gap 15 Estim Creat Clear Calc 69.4 Estimated GFR > 60 POC Glucose Random Glucose 105 Lactic Acid 2.7 H* Lactic Acid Fup @ 2Hr Lactic Acid Fup @ 4Hr Calcium 9.3 Magnesium 2.6 Iron TIBC % Saturation Unsat Iron Binding Ferritin Total Bilirubin 0.5 Direct Bilirubin < 0.2 AST 24 D ALT 9 Alkaline Phosphatase 143 H Troponin I High Sens B-Natriuretic Peptide Total Protein 8.3 H Albumin 4.3 Procalcitonin Urine Color Urine Appearance Urine pH Ur Specific Lindsay Urine Protein Urine Glucose (UA) Urine Ketones Urine Blood Urine Nitrite Ur Leukocyte Esterase Respiratory Panel Joseph Adenovirus (Rapid PCR) B.pert (TEM-PCR) B.parapertussis DNA PCR C. pneumoniae DNA (PCR) Coronavirus OC43 (PCR) Coronavirus HKU1 (PCR) Coronavirus 229E (PCR) COVID-19 (ANEL) COVID-19 Clin Com Coronavirus NL63 (PCR) Human Metapneumovir PCR Influenza A (RT-PCR) Influenza B (RT-PCR) M. pneumoniae (PCR) Parainfluenza 1 (PCR) Parainfluenza 2 (PCR) Parainfluenza 3 (PCR) Parainfluenza 4 (PCR) RSV (PCR) Entero/Rhino (PCR) SARS-CoV-2 RNA (RT-PCR) 02/15/21 02/15/21 02/15/21 15:30 15:30 15:36 MCV MCH MCHC RDW Plt Count MPV Immature Gran % (Auto) Neut % (Auto) Lymph % (Auto) [place] % (Auto) Eos % (Auto) Baso % (Auto) Lymph # (Auto) [place] # (Auto) Eos # (Auto) Baso # (Auto) Abs Immat Gran (auto) Absolute Neuts (auto) Absolute Nucleated RBC Nucleated RBC % (auto) VBG pH 7.44 H VBG pCO2 45 VBG pO2 88 VBG HCO3 31 H VBG O2 Saturation 97.0 VBG Base Excess 6.5 Anion Gap Estim Creat Clear Calc Estimated GFR POC Glucose Random Glucose Lactic Acid Lactic Acid Fup @ 2Hr Lactic Acid Fup @ 4Hr Calcium Magnesium Iron TIBC % Saturation Unsat Iron Binding Ferritin Total Bilirubin Direct Bilirubin AST ALT Alkaline Phosphatase Troponin I High Sens 25.9 H* B-Natriuretic Peptide 576 H Total Protein Albumin Procalcitonin 0.02 Urine Color Urine Appearance Urine pH Ur Specific Lindsay Urine Protein Urine Glucose (UA) Urine Ketones Urine Blood Urine Nitrite Ur Leukocyte Esterase Respiratory Panel Joseph Adenovirus (Rapid PCR) B.pert (TEM-PCR) B.parapertussis DNA PCR C. pneumoniae DNA (PCR) Coronavirus OC43 (PCR) Coronavirus HKU1 (PCR) Coronavirus 229E (PCR) COVID-19 (ANEL) COVID-19 Clin Com Coronavirus NL63 (PCR) Human Metapneumovir PCR Influenza A (RT-PCR) Influenza B (RT-PCR) M. pneumoniae (PCR) Parainfluenza 1 (PCR) Parainfluenza 2 (PCR) Parainfluenza 3 (PCR) Parainfluenza 4 (PCR) RSV (PCR) Entero/Rhino (PCR) SARS-CoV-2 RNA (RT-PCR) 02/15/21 02/15/21 02/15/21 16:22 16:22 20:11 MCV MCH MCHC RDW Plt Count MPV Immature Gran % (Auto) Neut % (Auto) Lymph % (Auto) [place] % (Auto) Eos % (Auto) Baso % (Auto) Lymph # (Auto) [place] # (Auto) Eos # (Auto) Baso # (Auto) Abs Immat Gran (auto) Absolute Neuts (auto) Absolute Nucleated RBC Nucleated RBC % (auto) VBG pH VBG pCO2 VBG pO2 VBG HCO3 VBG O2 Saturation VBG Base Excess Anion Gap Estim Creat Clear Calc Estimated GFR POC Glucose Random Glucose Lactic Acid Lactic Acid Fup @ 2Hr 2.8 H* Lactic Acid Fup @ 4Hr Calcium Magnesium Iron TIBC % Saturation Unsat Iron Binding Ferritin Total Bilirubin Direct Bilirubin AST ALT Alkaline Phosphatase Troponin I High Sens B-Natriuretic Peptide Total Protein Albumin Procalcitonin Urine Color STRAW Urine Appearance CLEAR Urine pH 6.0 Ur Specific Lindsay <= 1.005 Urine Protein NEG Urine Glucose (UA) NEG Urine Ketones NEG Urine Blood NEG Urine Nitrite NEG Ur Leukocyte Esterase NEG Respiratory Panel Joseph Adenovirus (Rapid PCR) B.pert (TEM-PCR) B.parapertussis DNA PCR C. pneumoniae DNA (PCR) Coronavirus OC43 (PCR) Coronavirus HKU1 (PCR) Coronavirus 229E (PCR) COVID-19 (ANEL) Negative COVID-19 Clin Com See Note Coronavirus NL63 (PCR) Human Metapneumovir PCR Influenza A (RT-PCR) Influenza B (RT-PCR) M. pneumoniae (PCR) Parainfluenza 1 (PCR) Parainfluenza 2 (PCR) Parainfluenza 3 (PCR) Parainfluenza 4 (PCR) RSV (PCR) Entero/Rhino (PCR) SARS-CoV-2 RNA (RT-PCR) 02/15/21 02/15/21 02/15/21 20:11 20:45 22:49 MCV MCH MCHC RDW Plt Count MPV Immature Gran % (Auto) Neut % (Auto) Lymph % (Auto) [place] % (Auto) Eos % (Auto) Baso % (Auto) Lymph # (Auto) [place] # (Auto) Eos # (Auto) Baso # (Auto) Abs Immat Gran (auto) Absolute Neuts (auto) Absolute Nucleated RBC Nucleated RBC % (auto) VBG pH VBG pCO2 VBG pO2 VBG HCO3 VBG O2 Saturation VBG Base Excess Anion Gap Estim Creat Clear Calc Estimated GFR POC Glucose 232 H Random Glucose Lactic Acid Lactic Acid Fup @ 2Hr Lactic Acid Fup @ 4Hr 3.8 H* Calcium Magnesium Iron TIBC % Saturation Unsat Iron Binding Ferritin Total Bilirubin Direct Bilirubin AST ALT Alkaline Phosphatase Troponin I High Sens 27.4 H* B-Natriuretic Peptide Total Protein Albumin Procalcitonin Urine Color Urine Appearance Urine pH Ur Specific Lindsay Urine Protein Urine Glucose (UA) Urine Ketones Urine Blood Urine Nitrite Ur Leukocyte Esterase Respiratory Panel Joseph Adenovirus (Rapid PCR) B.pert (TEM-PCR) B.parapertussis DNA PCR C. pneumoniae DNA (PCR) Coronavirus OC43 (PCR) Coronavirus HKU1 (PCR) Coronavirus 229E (PCR) COVID-19 (ANEL) COVID-19 Clin Com Coronavirus NL63 (PCR) Human Metapneumovir PCR Influenza A (RT-PCR) Influenza B (RT-PCR) M. pneumoniae (PCR) Parainfluenza 1 (PCR) Parainfluenza 2 (PCR) Parainfluenza 3 (PCR) Parainfluenza 4 (PCR) RSV (PCR) Entero/Rhino (PCR) SARS-CoV-2 RNA (RT-PCR) 02/16/21 02/16/21 02/16/21 02:25 05:55 05:55 MCV 77.1 L MCH 23.6 L MCHC 30.7 L RDW 15.6 Plt Count 189 MPV 9.9 Immature Gran % (Auto) 0.6 H Neut % (Auto) 86.8 H Lymph % (Auto) 6.8 L [place] % (Auto) 5.7 Eos % (Auto) 0.0 Baso % (Auto) 0.1 Lymph # (Auto) 1.1 L [place]ancock # (Auto) 0.9 Eos # (Auto) 0.0 Baso # (Auto) 0.0 Abs Immat Gran (auto) 0.10 H Absolute Neuts (auto) 14.1 H Absolute Nucleated RBC 0.000 Nucleated RBC % (auto) 0.0 VBG pH VBG pCO2 VBG pO2 VBG HCO3 VBG O2 Saturation VBG Base Excess Anion Gap 14 Estim Creat Clear Calc 70.2 Estimated GFR > 60 POC Glucose Random Glucose 130 H Lactic Acid Lactic Acid Fup @ 2Hr Lactic Acid Fup @ 4Hr Calcium 9.4 Magnesium 2.2 Iron 24 L TIBC 377 % Saturation 6 L Unsat Iron Binding 353 Ferritin 18 Total Bilirubin Direct Bilirubin AST ALT Alkaline Phosphatase Troponin I High Sens B-Natriuretic Peptide Total Protein Albumin Procalcitonin Urine Color Urine Appearance Urine pH Ur Specific Lindsay Urine Protein Urine Glucose (UA) Urine Ketones Urine Blood Urine Nitrite Ur Leukocyte Esterase Respiratory Panel Joseph See Note Adenovirus (Rapid PCR) Not Detected B.pert (TEM-PCR) Not Detected B.parapertussis DNA PCR Not Detected C. pneumoniae DNA (PCR) Not Detected Coronavirus OC43 (PCR) Not Detected Coronavirus HKU1 (PCR) Not Detected Coronavirus 229E (PCR) Not Detected COVID-19 (ANEL) COVID-19 Clin Com Coronavirus NL63 (PCR) Not Detected Human Metapneumovir PCR Not Detected Influenza A (RT-PCR) Not Detected Influenza B (RT-PCR) Not Detected M. pneumoniae (PCR) Not Detected Parainfluenza 1 (PCR) Not Detected Parainfluenza 2 (PCR) Not Detected Parainfluenza 3 (PCR) Not Detected Parainfluenza 4 (PCR) Not Detected RSV (PCR) Not Detected Entero/Rhino (PCR) Not Detected SARS-CoV-2 RNA (RT-PCR) Not Detected 02/16/21 02/16/21 02/16/21 05:55 05:55 08:06 MCV MCH MCHC RDW Plt Count MPV Immature Gran % (Auto) Neut % (Auto) Lymph % (Auto) [place] % (Auto) Eos % (Auto) Baso % (Auto) Lymph # (Auto) [place] # (Auto) Eos # (Auto) Baso # (Auto) Abs Immat Gran (auto) Absolute Neuts (auto) Absolute Nucleated RBC Nucleated RBC % (auto) VBG pH VBG pCO2 VBG pO2 VBG HCO3 VBG O2 Saturation VBG Base Excess Anion Gap Estim Creat Clear Calc Estimated GFR POC Glucose 114 Random Glucose Lactic Acid Cancelled Lactic Acid Fup @ 2Hr Lactic Acid Fup @ 4Hr Calcium Magnesium Iron TIBC % Saturation Unsat Iron Binding Ferritin Total Bilirubin Direct Bilirubin AST ALT Alkaline Phosphatase Troponin I High Sens B-Natriuretic Peptide 595 H Total Protein Albumin Procalcitonin Urine Color Urine Appearance Urine pH Ur Specific Lindsay Urine Protein Urine Glucose (UA) Urine Ketones Urine Blood Urine Nitrite Ur Leukocyte Esterase Respiratory Panel Joseph Adenovirus (Rapid PCR) B.pert (TEM-PCR) B.parapertussis DNA PCR C. pneumoniae DNA (PCR) Coronavirus OC43 (PCR) Coronavirus HKU1 (PCR) Coronavirus 229E (PCR) COVID-19 (ANEL) COVID-19 Clin Com Coronavirus NL63 (PCR) Human Metapneumovir PCR Influenza A (RT-PCR) Influenza B (RT-PCR) M. pneumoniae (PCR) Parainfluenza 1 (PCR) Parainfluenza 2 (PCR) Parainfluenza 3 (PCR) Parainfluenza 4 (PCR) RSV (PCR) Entero/Rhino (PCR) SARS-CoV-2 RNA (RT-PCR) 02/16/21 11:07 MCV MCH MCHC RDW Plt Count MPV Immature Gran % (Auto) Neut % (Auto) Lymph % (Auto) [place]ancock % (Auto) Eos % (Auto) Baso % (Auto) Lymph # (Auto) Hancock # (Auto) Eos # (Auto) Baso # (Auto) Abs Immat Gran (auto) Absolute Neuts (auto) Absolute Nucleated RBC Nucleated RBC % (auto) VBG pH VBG pCO2 VBG pO2 VBG HCO3 VBG O2 Saturation VBG Base Excess Anion Gap Estim Creat Clear Calc Estimated GFR POC Glucose 100 Random Glucose Lactic Acid Lactic Acid Fup @ 2Hr Lactic Acid Fup @ 4Hr Calcium Magnesium Iron TIBC % Saturation Unsat Iron Binding Ferritin Total Bilirubin Direct Bilirubin AST ALT Alkaline Phosphatase Troponin I High Sens B-Natriuretic Peptide Total Protein Albumin Procalcitonin Urine Color Urine Appearance Urine pH Ur Specific Lindsay Urine Protein Urine Glucose (UA) Urine Ketones Urine Blood Urine Nitrite Ur Leukocyte Esterase Respiratory Panel Joseph Adenovirus (Rapid PCR) B.pert (TEM-PCR) B.parapertussis DNA PCR C. pneumoniae DNA (PCR) Coronavirus OC43 (PCR) Coronavirus HKU1 (PCR) Coronavirus 229E (PCR) COVID-19 (ANEL) COVID-19 Clin Com Coronavirus NL63 (PCR) Human Metapneumovir PCR Influenza A (RT-PCR) Influenza B (RT-PCR) M. pneumoniae (PCR) Parainfluenza 1 (PCR) Parainfluenza 2 (PCR) Parainfluenza 3 (PCR) Parainfluenza 4 (PCR) RSV (PCR) Entero/Rhino (PCR) SARS-CoV-2 RNA (RT-PCR) Assessment and Plan (1) Acute exacerbation of chronic obstructive airways disease: Status: Acute (2) Congestive heart failure: Status: Acute (3) Acute on chronic respiratory failure with hypoxemia: Status: Acute Assessment and Plan: hospital d#2 60 year-old woman with steroid-dependent COPD, chronic hypoxic respiratory failure on 3L O2 via NC, chronic HFrEF [30-35% Jun 2020], KELLIE nonadherent with CPAP, DM2, HTN, and tobacco abuse presenting with dyspnea and hypoxia, admitted for COPD exacerbation + pneumonia # acute/chronic resp failure - supplemental O2 via Ventimask; wean as tolerated # COPD exacerbation - continue IV steroids, standing/prn nebs, LAMA # CA-PNA - IV ceftriaxone + doxycycline d#2, RVP negative, trend PCT, follow BCxx # acute/chronic HFrEF # NICM # HTN - still appears fluid overloaded- continue IV furosemide and follow I+O, weight, BNP; monitor BMP + Mg; repeat TTE; Cardiology consulted; t/c outpt CardioMEMS device; needs better f/u as outpt - continue Imdur, losartan; start spironolactone; b-coco once she is euvole yamile - hs-Tn-I indeterminate, flat; no angina; no EKG changes # SVT - TTE pending, b-coco when euvlomeic, switch albuterol to levalbuterol # lactic acidosis - not septic; likely bronchodilator effect; does not need IV fluids # chronic iron deficiency anemia - start iron repletion # mood disorder - continue quetiapine, sertraline, trazodone # DM2 - correction-dose lispro # tobacco abuse - NRT # VTE ppx - LMWH # dispo - PT consult when less hypxoic Quality Stroke Does the patient have a stroke diagnosis?: No VTE Prior VTE?: No VTE Risk Level:: Medical - moderate - high VTE Device Contraindication: N/A - Device Ordered VTE Drug Contraindication: N/A - Med Ordered
[2021-02-16 17:20] LABS: Glucose, Whole Blood 101 mg/dL (60-115)
[2021-02-16] MEDS: cefTRIAXone sodium 1 GM in 0.9 % Sodium Chloride 50 ML IV (18:27)
[2021-02-16] MEDS: methylPREDNISolone Sod Succ 40 MG/ML VIAL IVPUSH (18:43)
[2021-02-16] MEDS: Enoxaparin Sodium 40 MG/0.4 ML SYRINGE SUBCUT (18:47)
[2021-02-16 19:36] LABS: Glucose, Whole Blood 162 mg/dL (60-115)
[2021-02-16] MEDS: Insulin Lispro 100 UNIT/ML 3 ML VIAL SUBCUT (20:54)
[2021-02-16] MEDS: Montelukast Sodium 10 MG TABLET PO (20:55)
[2021-02-16] MEDS: traZODone HCL 100 MG TABLET PO (20:55)
[2021-02-17] VITALS (9 sets, daily range): BP systolic 163–179; BP diastolic 89–106; PULSE 75–99; RESP 18–20; TEMP 35.9–36.9; O2SAT 92–98; BMI 33.1
[2021-02-17] MEDS: Doxycycline Hyclate 100 MG in 0.9 % Sodium Chloride 250 ML 166.67 MG IV ×2 (05:33→17:14)
[2021-02-17] MEDS: Sodium Chloride 0.45 % 1,000 ML 80 ML IVCONT (05:36)
[2021-02-17] MEDS: Omeprazole 20 MG CAPSULE.DR PO (05:40)
[2021-02-17 07:07] LABS: Glucose, Whole Blood 111 mg/dL (60-115)
[2021-02-17 07:22] LABS: Hemoglobin 9.3 g/dl (12.0-16.0); Mean Corpuscular Hemoglobin 23.3 pg (27.0-33.0); Mean Corpuscular Volume 77.7 fL (80-98); Mean Platelet Volume 10.4 fL (9.4-12.3); Platelet Count 192 X10*3/uL (160-400); Red Blood Count 3.99 X10*6/uL (4.20-5.50); Red Cell Distribution Width 15.7 % (11.0-16.0); White Blood Count 9.7 X10*3/uL (4.8-10.8)
[2021-02-17 07:41] LABS: B Type Natriuretic Peptide 585 pg/mL (<100)
[2021-02-17 07:44] LABS: Anion Gap 14 (12-20); Blood Urea Nitrogen 17 mg/dL (9-16); Calcium 9.1 mg/dL (8.4-10.2); Carbon Dioxide 29 mmol/L (22-29); Chloride 104 mmol/L (96-108); Estimated Glomerular Filt Rate > 60; Glucose Random 99 mg/dL (60-115); Potassium 3.7 mmol/L (3.3-5.1); Sodium 143 mmol/L (135-145)
[2021-02-17] MEDS: Folic Acid 1 MG TABLET PO (07:50)
[2021-02-17] MEDS: Sertraline HCL 100 MG TABLET 200 MG PO (07:50)
[2021-02-17] MEDS: QUEtiapine Fumarate 50 MG TABLET PO ×2 (07:51→20:23)
[2021-02-17] MEDS: Losartan Potassium 50 MG TABLET PO ×2 (07:51→11:25)
[2021-02-17] MEDS: Isosorbide Mononitrate 30 MG TAB.ER.24H PO (07:51)
[2021-02-17] MEDS: Spironolactone 25 MG TABLET 12.5 MG PO (07:51)
[2021-02-17] MEDS: 0.9 % Sodium Chloride Flush 3 ML SYRINGE IVFLUSH ×3 (07:52→20:28)
[2021-02-17] MEDS: Ferrous Sulfate 324 MG TABLET.DR PO (07:52)
[2021-02-17 07:57] LABS: Procalcitonin 0.04 ng/mL
[2021-02-17] MEDS: Furosemide 40 MG/4 ML VIAL IVPUSH ×2 (09:28→17:14)
--- NOTE | 2021-02-17 10:56 | HO.PM.IMPN ---
Subjective Subjective Date of Service: 02/17/21 Interval History: dyspnea somewhat improved no chest pain IV fluid ordered by night doc was not d/c'ed Review of Systems Review of Systems: Yes all other systems are reviewed and are negative Physical Exam Vital Signs: Vital Signs: Last Vital Signs Temp 98.4 F 02/17/21 07:38 Pulse 75 02/17/21 08:30 Resp 18 02/17/21 07:38 BP 175/90 H 02/17/21 07:51 Pulse Ox 97 02/17/21 07:38 Oxygen Flow Rate 3 02/15/21 13:47 Body Mass Index 33.1 Gen: NAD on Venti mask 45% fiO2 HEENT: sclera anicteric, moist mucus membranes Neck: supple, JVD present Lungs: coarse inspiratory crackles at bases bilaterally Heart: regular rate and rhythm, no murmurs Abd: soft, non-tender, non-distended, obese Ext: no edema Skin: warm/well-perfused Neuro: alert and oriented x3, no focal findings Psych: appropriate affect Objective Data Active Medications Acetaminophen (Acetaminophen 325 Mg Tablet) 650 mg PO Q6H PRN PRN Reason: Pain, Mild (Pain Scale 1-3) Last Admin: 02/16/21 04:13 Dose: 650 mg Documented by: DIANE Dextrose (Dextrose 50 % 25 Gm/50 Ml Vial) 25 gm IVPUSH Q15M PRN; Protocol PRN Reason: per Hypoglycemia Standing Ord. Enoxaparin Sodium (Enoxaparin Sodium 40 Mg/0.4 Ml Syringe) 40 mg SUBCUT Q24H [facility] Last Admin: 02/16/21 18:47 Dose: 40 mg Documented by: ALEKSANDRA Ferrous Sulfate (Ferrous Sulfate 324 Mg Tablet.) 324 mg PO DAILY [facility] Last Admin: 02/17/21 07:52 Dose: 324 mg Documented by: HERLINDA Folic Acid (Folic Acid 1 Mg Tablet) 1 mg PO DAILY [facility] Last Admin: 02/17/21 07:50 Dose: 1 mg Documented by: HERLINDA Furosemide (Furosemide 40 Mg/4 Ml Vial) 40 mg IVPUSH BID@0900,1800 [facility]; Protocol Last Admin: 02/16/21 18:28 Dose: 40 mg Documented by: ALEKSANDRA Glucose (Glucose Gel 15 Gm Gel..Gram.) 15 gm PO Q15M PRN; Protocol PRN Reason: per Hypoglycemia Standing Ord. Ceftriaxone Sodium 1 gm/ (Sodium Chloride) 50 mls @ 100 mls/hr IV Q24H [facility] Last Infusion: 02/16/21 19:00 Dose: 0 mls/hr Documented by: ALEKSANDRA Doxycycline Hyclate 100 mg/ (Sodium Chloride) 250 mls @ 166.67 mls/hr IV Q12H [facility] Last Infusion: 02/17/21 07:12 Dose: 0 mls/hr Documented by: HERLINDA Insulin Human Lispro (Insulin Lispro 100 Unit/Ml 3 Ml Vial) 0 unit SUBCUT QIDACHS [facility]; Protocol Last Admin: 02/17/21 07:09 Dose: Not Given Documented by: HERLINDA Non-Admin Reason: No Insulin Coverage Isosorbide Mononitrate (Isosorbide Mononitrate 30 Mg Tab.Er.24h) 30 mg PO DAILY [facility]; Protocol Last Admin: 02/17/21 07:51 Dose: 30 mg Documented by: HERLINDA Levalbuterol HCl (Levalbuterol Hcl 1.25 Mg/0.5 Ml Vial.Guero) 1.25 mg INHALE Q2H PRN PRN Reason: shortness of breath/wheeze Last Admin: 02/17/21 08:28 Dose: 1.25 mg Documented by: SHARON Losartan Potassium (Losartan Potassium 50 Mg Tablet) 50 mg PO DAILY [facility]; Protocol Last Admin: 02/17/21 07:51 Dose: 50 mg Documented by: HERLINDA Methylprednisolone Sodium Succinate (Methylprednisolone Sod Succ 40 Mg/Ml Vial) 40 mg IVPUSH Q24H [facility] Last Admin: 02/16/21 18:43 Dose: 40 mg Documented by: ALEKSANDRA Montelukast Sodium (Montelukast Sodium 10 Mg Tablet) 10 mg PO BEDTIME [facility] Last Admin: 02/16/21 20:55 Dose: 10 mg Documented by: ALEKSANDRA Nicotine Polacrilex (Nicotine Polacrilex 2 Mg Gum) 2 mg BUCCAL Q1H PRN PRN Reason: nicotine crav Omeprazole (Omeprazole 20 Mg Capsule.) 20 mg PO DAILY@0630 [facility] Last Admin: 02/17/21 05:40 Dose: 20 mg Documented by: BRUCE Ondansetron HCl (Ondansetron Hcl 4 Mg/2 Ml Vial) 4 mg IVPUSH Q8H PRN PRN Reason: Nausea and Vomiting Pharmacy Consult (Consult Rx Perform Med Rec) 1 each MISCELLANE ONCE PRN PRN Reason: Consult order Quetiapine Fumarate (Quetiapine Fumarate 50 Mg Tablet) 50 mg PO BID [facility] Last Admin: 02/17/21 07:51 Dose: 50 mg Documented by: HERLINDA Sertraline HCl (Sertraline Hcl 100 Mg Tablet) 200 mg PO DAILY [facility] Last Admin: 02/17/21 07:50 Dose: 200 mg Documented by: HERLINDA Sodium Chloride (0.9 % Sodium Chloride Flush 3 Ml Syringe) 3 ml IVFLUSH QSHIFT [facility] Last Admin: 02/17/21 07:52 Dose: 3 ml Documented by: HERLINDA Spironolactone (Spironolactone 25 Mg Tablet) 12.5 mg PO DAILY [facility]; Protocol Last Admin: 02/17/21 07:51 Dose: 12.5 mg Documented by: HERLINDA Tiotropium [place] (Tiotropium [place] 18 Mcg Cap.W.Dev) 1 puff INHALE RDAILY [facility] Last Admin: 02/17/21 08:28 Dose: 1 puff Documented by: SHARON Trazodone HCl (Trazodone Hcl 100 Mg Tablet) 100 mg PO BEDTIME PRN PRN Reason: Sleep Last Admin: 02/16/21 20:55 Dose: 100 mg Documented by: ALEKSANDRA Labs CBC & Chem 7: 02/17/21 06:22 02/17/21 06:22 Labs: Laboratory Results - last 24 hr 02/16/21 02/16/21 02/16/21 11:07 17:17 19:30 MCV MCH MCHC RDW Plt Count MPV Absolute Nucleated RBC Nucleated RBC % (auto) Anion Gap Estim Creat Clear Calc Estimated GFR POC Glucose 100 101 162 H Random Glucose Calcium B-Natriuretic Peptide Procalcitonin 02/17/21 02/17/21 02/17/21 06:22 06:22 06:22 MCV 77.7 L MCH 23.3 L MCHC 30.0 L RDW 15.7 Plt Count 192 MPV 10.4 Absolute Nucleated RBC 0.000 Nucleated RBC % (auto) 0.0 Anion Gap 14 Estim Creat Clear Calc 70.0 Estimated GFR > 60 POC Glucose Random Glucose 99 Calcium 9.1 B-Natriuretic Peptide 585 H Procalcitonin 02/17/21 02/17/21 06:22 07:04 MCV MCH MCHC RDW Plt Count MPV Absolute Nucleated RBC Nucleated RBC % (auto) Anion Gap Estim Creat Clear Calc Estimated GFR POC Glucose 111 Random Glucose Calcium B-Natriuretic Peptide Procalcitonin 0.04 Microbiology Microbiology Results: Microbiology 02/15/21 16:22 Blood Culture - Preliminary Blood - Venous No growth after 24 hours. 02/15/21 15:30 Blood Culture - Preliminary Blood - Venous No growth after 24 hours. Assessment and Plan (1) Acute exacerbation of chronic obstructive airways disease: Status: Acute (2) Congestive heart failure: Status: Acute (3) Acute on chronic respiratory failure with hypoxemia: Status: Acute Assessment and Plan: hospital d#3 60 year-old woman with steroid-dependent COPD, chronic hypoxic respiratory failure on 3L O2 via NC, chronic HFrEF [30-35% Jun 2020], KELLIE nonadherent with CPAP, DM2, HTN, and tobacco abuse presenting with dyspnea and hypoxia, admitted for COPD exacerbation + pneumonia, also CHF exacerbation # acute/chronic resp failure - supplemental O2 via Ventimask; wean as tolerated # COPD exacerbation - continue IV steroids, standing/prn nebs, LAMA # CA-PNA - IV ceftriaxone + doxycycline d#3, RVP negative, follow BCx PCT low, will d/c ceftriaxone # acute/chronic HFrEF # NICM # HTN - still appears fluid overloaded- continue IV furosemide and follow I+O, weight, BNP; monitor BMP + Mg; repeat TTE; Cardiology consulted; t/c outpt CardioMEMS device; needs better f/u as outpt - continue Imdur, losartan [increase dose to 100 mg/d for better blood pressure control]; started spironolactone 12.5 mg/d yesterday; b-coco once she is euvolemic - hs-Tn-I indeterminate, flat; no angina; no EKG changes # SVT - TTE pending, b-coco when euvolmeic, switch albuterol to levalbuterol # lactic acidosis - not septic; likely bronchodilator effect; does not need IV fluids # chronic iron deficiency anemia - oral repletion # mood disorder - continue quetiapine, sertraline, trazodone # DM2 - correction-dose lispro # tobacco abuse - NRT # VTE ppx - LMWH # dispo - PT consult when less hypxoic Quality Stroke Does the patient have a stroke diagnosis?: No VTE Prior VTE?: No VTE Risk Level:: Medical - moderate - high VTE Device Contraindication: N/A - Device Ordered VTE Drug Contraindication: N/A - Med Ordered
[2021-02-17 11:34] LABS: Glucose, Whole Blood 101 mg/dL (60-115)
--- NOTE | 2021-02-17 12:41 | PC.NURSE ---
Patient coughing with breakfast - patient states she coughs like this all the time and not only with meals. Continuos sat monitor applied for o2 titration - patient currently on Venti 15L/50% Spo2 93%. 1200 - O2 sat 58% on monitor with good pleth- this RN in room and noticed venti mask off face and patient coughing with food in her mouth and face very flushed. Venti mask applied and o2 sat gradually back up to 90%. Coughing subsided and food removed from bedside. MD notified and patient placed NPO pending speech eval tomorrow. Unasyn 3g IV q6hr ordered.
--- NOTE | 2021-02-17 13:05 | PM.PNCARD ---
Subjective Subjective Date of Service: 02/17/21 Principal diagnosis: Hypoxic respiratory failure Interval history: Patient developed significant coughing after eating breakfast today and became very short of breath and hypoxic. Has diuresed well but not adequately charted. Has been getting her medications. Blood pressure is elevated. Her losartan was increased this morning. Her BNP still in 500 range Review of Systems Constitutional: Reports no additional constitutional complaints Cardiovascular: Denies chest pain, Denies leg edema, Denies palpitations and Reports dyspnea Respiratory: Reports cough and Reports dyspnea Gastrointestinal: Reports no additional gastrointestinal complaints Musculoskeletal: Reports no additional musculoskeletal complaints Skin/Breast: Reports system reviewed and no additional complaints, except as docu Reports system reviewed and no additional complaints, except as documented Psychiatric: Reports no additional psychiatric complaints Endocrine: Reports no additional endocrine complaints and Denies palpitations Hematologic/Lymphatic: Reports no additional hematologic/lymphatic complaints Physical Exam Vital Signs: Last Vital Signs Temp 97.8 F 02/17/21 11:15 Pulse 89 02/17/21 11:25 Resp 18 02/17/21 11:15 BP 170/89 H 02/17/21 11:25 Pulse Ox 92 02/17/21 11:15 Oxygen Flow Rate 3 02/15/21 13:47 Body Mass Index 33.1 Const General: cooperative, comfortable, alert, awake and in distress mild and respiratory Nutritional Appearance: obese Orientation/consciousness: patient oriented x3 Neck Neck: Yes trachea midline, Yes supple and Yes no JVD Resp Effort & Inspection: normal respiratory effort Auscultation: no crackles, wheezes and diminished lung sounds Cardio Jugular venous distension: no JVD Rate: regular rate Rhythm: regular rhythm Heart sounds: S1 normal heart sound present, S2 normal heart sound present, no click, no gallops and no murmurs Skin General skin exam: no rashes or lesions noted Neuro General: patient oriented x3 and no focal motor deficits Extrem General: Yes no clubbing, cyanosis or edema Results Labs and Meds Result diagrams: 02/17/21 06:22 02/17/21 06:22 Lab results: Laboratory Results - last 24 hr 02/16/21 02/16/21 02/17/21 17:17 19:30 06:22 WBC 9.7 RBC 3.99 L Hgb 9.3 L Hct 31.0 L MCV 77.7 L MCH 23.3 L MCHC 30.0 L RDW 15.7 Plt Count 192 MPV 10.4 Absolute Nucleated RBC 0.000 Nucleated RBC % (auto) 0.0 Sodium Potassium Chloride Carbon Dioxide Anion Gap BUN Creatinine Estim Creat Clear Calc Estimated GFR POC Glucose 101 162 H Random Glucose Calcium B-Natriuretic Peptide Procalcitonin 02/17/21 02/17/21 02/17/21 06:22 06:22 06:22 WBC RBC Hgb Hct MCV MCH MCHC RDW Plt Count MPV Absolute Nucleated RBC Nucleated RBC % (auto) Sodium 143 Potassium 3.7 Chloride 104 Carbon Dioxide 29 Anion Gap 14 BUN 17 H Creatinine 0.76 Estim Creat Clear Calc 70.0 Estimated GFR > 60 POC Glucose Random Glucose 99 Calcium 9.1 B-Natriuretic Peptide 585 H Procalcitonin 0.04 02/17/21 02/17/21 07:04 10:54 WBC RBC Hgb Hct MCV MCH MCHC RDW Plt Count MPV Absolute Nucleated RBC Nucleated RBC % (auto) Sodium Potassium Chloride Carbon Dioxide Anion Gap BUN Creatinine Estim Creat Clear Calc Estimated GFR POC Glucose 111 101 Random Glucose Calcium B-Natriuretic Peptide Procalcitonin Progress Note: A&P Assessment and plan (1) Acute on chronic respiratory failure with hypoxemia: Status: Acute Assessment and Plan: Acute hypoxemic respiratory failure appears to be secondary to multiple factors. Congestive heart failure decompensation addition to possibly aspiration and COPD exacerbation. Being evaluated for swallowing appropriateness. Continue NPO for now. Continue oxygen supplementation. Continue treatment for COPD exacerbation. Continue IV diuresis as BNP still does not appear to be down trending. Strict intake and output chart needs to be pursued in a patient admitted with decompensated congestive heart failure. Echocardiogram pending. Losartan has been maximized. If creatinine is okay tomorrow can increase Aldactone to 25 mg daily. If BNP is down trending, beta-blockers with metoprolol can be added tomorrow. Would also be a good candidate for SGL T2 inhibitor therapy as outpatient. Also would be a good candidate at think given her multiple different issues causing hypoxemic respiratory failure and difficult to evaluate volume status of CardioMEMS device to prevent recurrent hospitalizations. Will follow with the patient. Fall Risk Details Current Medications: Current Medications Acetaminophen (Acetaminophen 325 Mg Tablet) 650 mg PO Q6H PRN PRN Reason: Pain, Mild (Pain Scale 1-3) Last Admin: 02/16/21 04:13 Dose: 650 mg Documented by: Dextrose (Dextrose 50 % 25 Gm/50 Ml Vial) 25 gm IVPUSH Q15M PRN; Protocol PRN Reason: per Hypoglycemia Standing Ord. Enoxaparin Sodium (Enoxaparin Sodium 40 Mg/0.4 Ml Syringe) 40 mg SUBCUT Q24H [facility] Last Admin: 02/16/21 18:47 Dose: 40 mg Documented by: Ferrous Sulfate (Ferrous Sulfate 324 Mg Tablet.) 324 mg PO DAILY [facility] Last Admin: 02/17/21 07:52 Dose: 324 mg Documented by: Folic Acid (Folic Acid 1 Mg Tablet) 1 mg PO DAILY [facility] Last Admin: 02/17/21 07:50 Dose: 1 mg Documented by: Furosemide (Furosemide 40 Mg/4 Ml Vial) 40 mg IVPUSH BID@0900,1800 [facility]; Protocol Last Admin: 02/16/21 18:28 Dose: 40 mg Documented by: Glucose (Glucose Gel 15 Gm Gel..Gram.) 15 gm PO Q15M PRN; Protocol PRN Reason: per Hypoglycemia Standing Ord. Doxycycline Hyclate 100 mg/ (Sodium Chloride) 250 mls @ 166.67 mls/hr IV Q12H [facility] Last Infusion: 02/17/21 07:12 Dose: Infused Documented by: Ampicillin Sodium/Sulbactam (Sodium 3 gm/ Sodium Chloride) 100 mls @ 200 mls/hr IV Q6H [facility] Insulin Human Lispro (Insulin Lispro 100 Unit/Ml 3 Ml Vial) 0 unit SUBCUT QIDACHS [facility]; Protocol Last Admin: 02/17/21 11:09 Dose: Not Given Documented by: Isosorbide Mononitrate (Isosorbide Mononitrate 30 Mg Tab.Er.24h) 30 mg PO DAILY [facility]; Protocol Last Admin: 02/17/21 07:51 Dose: 30 mg Documented by: Levalbuterol HCl (Levalbuterol Hcl 1.25 Mg/0.5 Ml Vial.Neb) 1.25 mg INHALE Q2H PRN PRN Reason: shortness of breath/wheeze Last Admin: 02/17/21 08:28 Dose: 1.25 mg Documented by: Losartan Potassium (Losartan Potassium 50 Mg Tablet) 100 mg PO DAILY [facility]; Protocol Methylprednisolone Sodium Succinate (Methylprednisolone Sod Succ 40 Mg/Ml Vial) 40 mg IVPUSH Q24H [facility] Last Admin: 02/16/21 18:43 Dose: 40 mg Documented by: Montelukast Sodium (Montelukast Sodium 10 Mg Tablet) 10 mg PO BEDTIME [facility] Last Admin: 02/16/21 20:55 Dose: 10 mg Documented by: Nicotine Polacrilex (Nicotine Polacrilex 2 Mg Gum) 2 mg BUCCAL Q1H PRN PRN Reason: nicotine crav Omeprazole (Omeprazole 20 Mg Capsule.Dr) 20 mg PO DAILY@0630 [facility] Last Admin: 02/17/21 05:40 Dose: 20 mg Documented by: Ondansetron HCl (Ondansetron Hcl 4 Mg/2 Ml Vial) 4 mg IVPUSH Q8H PRN PRN Reason: Nausea and Vomiting Pharmacy Consult (Consult Rx Perform Med Rec) 1 each MISCELLANE ONCE PRN PRN Reason: Consult order Quetiapine Fumarate (Quetiapine Fumarate 50 Mg Tablet) 50 mg PO BID [facility] Last Admin: 02/17/21 07:51 Dose: 50 mg Documented by: Sertraline HCl (Sertraline Hcl 100 Mg Tablet) 200 mg PO DAILY [facility] Last Admin: 02/17/21 07:50 Dose: 200 mg Documented by: Sodium Chloride (0.9 % Sodium Chloride Flush 3 Ml Syringe) 3 ml IVFLUSH QSHIFT [facility] Last Admin: 02/17/21 07:52 Dose: 3 ml Documented by: Spironolactone (Spironolactone 25 Mg Tablet) 12.5 mg PO DAILY [facility]; Protocol Last Admin: 02/17/21 07:51 Dose: 12.5 mg Documented by: Tiotropium [place] (Tiotropium [place] 18 Mcg Cap.W.Dev) 1 puff INHALE RDAILY [facility] Last Admin: 02/17/21 08:28 Dose: 1 puff Documented by: Trazodone HCl (Trazodone Hcl 100 Mg Tablet) 100 mg PO BEDTIME PRN PRN Reason: Sleep Last Admin: 02/16/21 20:55 Dose: 100 mg Documented by: Time Spent With Patient Time: Total time spent is greater than 50% in coordination of care (as documented) at patient's floor/unit and/or counseling patient: Time with patient: 25 - 35 minutes Progress Note: Quality Stroke Does the patient have a stroke diagnosis?: No Procedures Date of Service Date of Service: 02/17/21
[2021-02-17] MEDS: Ampicillin Sodium/Sulbactam Na 3 GM in 0.9 % Sodium Chloride 100 ML IV ×2 (13:32→19:16)
--- NOTE | 2021-02-17 15:13 | MHC.CM.PN ---
PT REPORTS SHE LIVES ALONE AND HAS [employer]ERAPE[employer] SALES [employer]IST SERVICES TO ASSIST WITH HOME AND PERSONAL CARE PT REP[ORTS SHE HAS A WALKER AND HOME OXYGEN PT HAS A HCP ON FILE AND CONFIRMS HER PCP IS TYRELL PETERSON CURRENT DC PLAN IS HOME WITH RESUMPTION OF THERAPEUTIC SALES SPECIALIST SERVICES PT TO ARRANGE TRANSPORT
[2021-02-17 15:58] LABS: Glucose, Whole Blood 141 mg/dL (60-115)
[2021-02-17] MEDS: Enoxaparin Sodium 40 MG/0.4 ML SYRINGE SUBCUT (17:14)
[2021-02-17] MEDS: methylPREDNISolone Sod Succ 40 MG/ML VIAL IVPUSH (17:14)
[2021-02-17] MEDS: Montelukast Sodium 10 MG TABLET PO (20:23)
[2021-02-17] MEDS: traZODone HCL 100 MG TABLET PO (20:23)
[2021-02-17 21:14] LABS: Glucose, Whole Blood 151 mg/dL (60-115)
[2021-02-18] VITALS (9 sets, daily range): BP systolic 125–180; BP diastolic 80–105; PULSE 74–107; RESP 18–24; TEMP 35.9–36.8; O2SAT 92–98; BMI 33.3
[2021-02-18] MEDS: Ampicillin Sodium/Sulbactam Na 3 GM in 0.9 % Sodium Chloride 100 ML IV ×4 (01:52→21:11)
[2021-02-18] MEDS: amLODIPine Besylate 5 MG TABLET PO (03:43)
[2021-02-18] MEDS: Doxycycline Hyclate 100 MG in 0.9 % Sodium Chloride 250 ML 166.67 MG IV ×2 (06:21→17:39)
[2021-02-18] MEDS: Omeprazole 20 MG CAPSULE.DR PO (06:21)
[2021-02-18 07:26] LABS: Glucose, Whole Blood 91 mg/dL (60-115)
[2021-02-18 08:01] LABS: Anion Gap 14 (12-20); Blood Urea Nitrogen 23 mg/dL (9-16); Calcium 9.5 mg/dL (8.4-10.2); Carbon Dioxide 30 mmol/L (22-29); Chloride 103 mmol/L (96-108); Estimated Glomerular Filt Rate > 60; Glucose Random 89 mg/dL (60-115); Potassium 3.3 mmol/L (3.3-5.1); Sodium 144 mmol/L (135-145)
[2021-02-18 08:12] LABS: B Type Natriuretic Peptide 362 pg/mL (<100)
[2021-02-18] MEDS: QUEtiapine Fumarate 50 MG TABLET PO ×2 (08:20→21:11)
[2021-02-18] MEDS: Folic Acid 1 MG TABLET PO (08:21)
[2021-02-18] MEDS: Ferrous Sulfate 324 MG TABLET.DR PO (08:21)
[2021-02-18] MEDS: Isosorbide Mononitrate 30 MG TAB.ER.24H PO (08:21)
[2021-02-18] MEDS: Losartan Potassium 50 MG TABLET 100 MG PO (08:21)
[2021-02-18] MEDS: Sertraline HCL 100 MG TABLET 200 MG PO (08:22)
[2021-02-18] MEDS: Spironolactone 25 MG TABLET 12.5 MG PO (08:22)
[2021-02-18] MEDS: Furosemide 40 MG/4 ML VIAL IVPUSH ×2 (08:22→17:39)
[2021-02-18] MEDS: 0.9 % Sodium Chloride Flush 3 ML SYRINGE IVFLUSH ×3 (08:23→21:12)
[2021-02-18] MEDS: carvediloL 3.125 MG TABLET PO ×2 (10:56→21:11)
[2021-02-18] MEDS: Spironolactone 25 MG TABLET PO (10:56)
--- NOTE | 2021-02-18 11:12 | PM.PNCARD ---
Subjective Subjective Date of Service: 02/18/21 Principal diagnosis: Hypoxic respiratory failure Interval history: On assessment, she still looks short of breath, but states that she is feeling better and would like to be discharged. Review of Systems Review of Systems Yes all other systems are reviewed and are negative Cardiovascular: Reports as per HPI, Reports no additional cardiovascular complaints, Denies acrocyanosis, Denies cool extremities, Denies painful fingertips, Denies chest pain, Denies chest pain at rest, Denies diaphoresis, Denies syncope, Denies irregular heart rhythm, Denies claudication, Denies leg edema, Denies lightheadedness, Denies palpitations and Reports dyspnea Respiratory: Reports dyspnea Denies syncope Endocrine: Denies palpitations Physical Exam Vital Signs: Last Vital Signs Temp 97.1 F 02/18/21 07:31 Pulse 87 02/18/21 10:56 Resp 24 H 02/18/21 07:31 BP 160/101 H 02/18/21 10:56 Pulse Ox 96 02/18/21 07:31 Oxygen Flow Rate 3 02/15/21 13:47 Body Mass Index 33.3 Const General: cooperative and no acute distress [facility] Other: Unremarkable Neck Neck: Yes normal visual inspection Chest Chest palpation & inspection: normal inspection of the chest Resp Auscultation: wheezes and diminished lung sounds Cardio Jugular venous distension: no JVD Palpation: normal PMI Heart sounds: S1 normal heart sound present, S2 normal heart sound present, no gallops, no murmurs and no rubs GI Palpation (GI): Soft to palpation Back/Spine/Pelvis Other: unremarkable Skin General skin exam: no rashes or lesions noted Neuro Cranial nerves: Yes Other cranial nerve findings present Extrem General: No edema Psych Mental Status: other Results Labs and Meds Result diagrams: 02/17/21 06:22 02/18/21 07:08 Lab results: Laboratory Results - last 24 hr 02/17/21 02/17/21 02/17/21 10:54 15:50 19:59 Sodium Potassium Chloride Carbon Dioxide Anion Gap BUN Creatinine Estim Creat Clear Calc Estimated GFR POC Glucose 101 141 H 151 H Random Glucose Calcium Magnesium B-Natriuretic Peptide 02/18/21 02/18/21 02/18/21 07:08 07:08 07:19 Sodium 144 Potassium 3.3 Chloride 103 Carbon Dioxide 30 H Anion Gap 14 BUN 23 H Creatinine 0.86 Estim Creat Clear Calc 62.0 Estimated GFR > 60 POC Glucose 91 Random Glucose 89 Calcium 9.5 Magnesium 2.0 B-Natriuretic Peptide 362 H Progress Note: A&P Assessment and plan (1) Acute on chronic respiratory failure with hypoxemia: Status: Acute (2) Acute on chronic systolic (congestive) heart failure: Status: Acute (3) Non-rheumatic mitral regurgitation: Status: Acute (4) Acute exacerbation of chronic obstructive airways disease: Status: Acute Assessment and Plan: Suspect multifactorial etiology for shortness of breath. Has underlying COPD and that most likely predominant based on exam. She also has diminished LVEF and could have additionally acute on chronic heart failure. Continue with diuretics. Otherwise, she is on carvedilol, losartan, spironolactone. BP is still high. May add Amlodipine 5mg daily. Fall Risk Details Current Medications: Current Medications Acetaminophen (Acetaminophen 325 Mg Tablet) 650 mg PO Q6H PRN PRN Reason: Pain, Mild (Pain Scale 1-3) Last Admin: 02/16/21 04:13 Dose: 650 mg Documented by: Carvedilol (Carvedilol 3.125 Mg Tablet) 3.125 mg PO BID [facility]; Protocol Last Admin: 02/18/21 10:56 Dose: 3.125 mg Documented by: Dextrose (Dextrose 50 % 25 Gm/50 Ml Vial) 25 gm IVPUSH Q15M PRN; Protocol PRN Reason: per Hypoglycemia Standing Ord. Enoxaparin Sodium (Enoxaparin Sodium 40 Mg/0.4 Ml Syringe) 40 mg SUBCUT Q24H [facility] Last Admin: 02/17/21 17:14 Dose: 40 mg Documented by: Ferrous Sulfate (Ferrous Sulfate 324 Mg Tablet.) 324 mg PO DAILY [facility] Last Admin: 02/18/21 08:21 Dose: 324 mg Documented by: Folic Acid (Folic Acid 1 Mg Tablet) 1 mg PO DAILY [facility] Last Admin: 02/18/21 08:21 Dose: 1 mg Documented by: Furosemide (Furosemide 40 Mg/4 Ml Vial) 40 mg IVPUSH BID@0900,1800 [facility]; Protocol Last Admin: 02/18/21 08:22 Dose: 40 mg Documented by: Glucose (Glucose Gel 15 Gm Gel..Gram.) 15 gm PO Q15M PRN; Protocol PRN Reason: per Hypoglycemia Standing Ord. Doxycycline Hyclate 100 mg/ (Sodium Chloride) 250 mls @ 166.67 mls/hr IV Q12H [facility] Last Infusion: 02/18/21 08:06 Dose: Infused Documented by: Ampicillin Sodium/Sulbactam (Sodium 3 gm/ Sodium Chloride) 100 mls @ 200 mls/hr IV Q6H [facility] Last Infusion: 02/18/21 08:54 Dose: Infused Documented by: Insulin Human Lispro (Insulin Lispro 100 Unit/Ml 3 Ml Vial) 0 unit SUBCUT QIDACHS [facility]; Protocol Last Admin: 02/18/21 07:28 Dose: Not Given Documented by: Isosorbide Mononitrate (Isosorbide Mononitrate 30 Mg Tab.Er.24h) 30 mg PO DAILY [facility]; Protocol Last Admin: 02/18/21 08:21 Dose: 30 mg Documented by: Levalbuterol HCl (Levalbuterol Hcl 1.25 Mg/0.5 Ml Vial.Neb) 1.25 mg INHALE Q2H PRN PRN Reason: shortness of breath/wheeze Last Admin: 02/17/21 08:28 Dose: 1.25 mg Documented by: Losartan Potassium (Losartan Potassium 50 Mg Tablet) 100 mg PO DAILY [facility]; Protocol Last Admin: 02/18/21 08:21 Dose: 100 mg Documented by: Methylprednisolone Sodium Succinate (Methylprednisolone Sod Succ 40 Mg/Ml Vial) 40 mg IVPUSH Q24H [facility] Last Admin: 02/17/21 17:14 Dose: 40 mg Documented by: Montelukast Sodium (Montelukast Sodium 10 Mg Tablet) 10 mg PO BEDTIME [facility] Last Admin: 02/17/21 20:23 Dose: 10 mg Documented by: Nicotine Polacrilex (Nicotine Polacrilex 2 Mg Gum) 2 mg BUCCAL Q1H PRN PRN Reason: nicotine crav Omeprazole (Omeprazole 20 Mg Capsule.Dr) 20 mg PO DAILY@0630 [facility] Last Admin: 02/18/21 06:21 Dose: 20 mg Documented by: Ondansetron HCl (Ondansetron Hcl 4 Mg/2 Ml Vial) 4 mg IVPUSH Q8H PRN PRN Reason: Nausea and Vomiting Pharmacy Consult (Consult Rx Perform Med Rec) 1 each MISCELLANE ONCE PRN PRN Reason: Consult order Quetiapine Fumarate (Quetiapine Fumarate 50 Mg Tablet) 50 mg PO BID [facility] Last Admin: 02/18/21 08:20 Dose: 50 mg Documented by: Sertraline HCl (Sertraline Hcl 100 Mg Tablet) 200 mg PO DAILY [facility] Last Admin: 02/18/21 08:22 Dose: 200 mg Documented by: Sodium Chloride (0.9 % Sodium Chloride Flush 3 Ml Syringe) 3 ml IVFLUSH QSHIFT [facility] Last Admin: 02/18/21 08:23 Dose: 3 ml Documented by: Spironolactone (Spironolactone 25 Mg Tablet) 25 mg PO DAILY [facility]; Protocol Last Admin: 02/18/21 10:56 Dose: 12.5 mg Documented by: Tiotropium [place] (Tiotropium [place] 18 Mcg Cap.W.Dev) 1 puff INHALE RDAILY [facility] Last Admin: 02/18/21 09:03 Dose: Not Given Documented by: Trazodone HCl (Trazodone Hcl 100 Mg Tablet) 100 mg PO BEDTIME PRN PRN Reason: Sleep Last Admin: 02/17/21 20:23 Dose: 100 mg Documented by: Time Spent With Patient Time: Total time spent is greater than 50% in coordination of care (as documented) at patient's floor/unit and/or counseling patient: Time with patient: less than 15 minutes Progress Note: Quality Stroke Does the patient have a stroke diagnosis?: No Procedures Date of Service Date of Service: 02/18/21
[2021-02-18 11:19] LABS: Glucose, Whole Blood 111 mg/dL (60-115)
--- NOTE | 2021-02-18 13:23 | P.PNIM_ITS ---
Subjective Subjective Date of Service: 02/18/21 Interval History: Aspirated lunch yesterday Less dyspneic today NPO pending speech evaluation No chest pain Review of Systems Review of Systems: Yes all other systems are reviewed and are negative Physical Exam Vital Signs: Vital Signs: Last Vital Signs Temp 96.6 F L 02/18/21 11:43 Pulse 107 H 02/18/21 11:43 Resp 20 02/18/21 11:43 BP 166/100 H 02/18/21 11:43 Pulse Ox 95 02/18/21 11:43 Oxygen Flow Rate 3 02/15/21 13:47 Body Mass Index 33.3 Gen: NAD on 4L O2 via NC HEENT: sclera anicteric, moist mucus membranes Neck: supple, JVD present Lungs: diminished bilaterally Heart: regular rate and rhythm, no murmurs Abd: soft, non-tender, non-distended, obese Ext: no edema Skin: warm/well-perfused Neuro: alert and oriented x3, no focal findings Psych: appropriate affect Objective Data Active Medications Acetaminophen (Acetaminophen 325 Mg Tablet) 650 mg PO Q6H PRN PRN Reason: Pain, Mild (Pain Scale 1-3) Last Admin: 02/16/21 04:13 Dose: 650 mg Documented by: DIANE Carvedilol (Carvedilol 3.125 Mg Tablet) 3.125 mg PO BID [facility]; Protocol Last Admin: 02/18/21 10:56 Dose: 3.125 mg Documented by: KIN Dextrose (Dextrose 50 % 25 Gm/50 Ml Vial) 25 gm IVPUSH Q15M PRN; Protocol PRN Reason: per Hypoglycemia Standing Ord. Enoxaparin Sodium (Enoxaparin Sodium 40 Mg/0.4 Ml Syringe) 40 mg SUBCUT Q24H [facility] Last Admin: 02/17/21 17:14 Dose: 40 mg Documented by: HERLINDA Ferrous Sulfate (Ferrous Sulfate 324 Mg Tablet.) 324 mg PO DAILY [facility] Last Admin: 02/18/21 08:21 Dose: 324 mg Documented by: KIN Folic Acid (Folic Acid 1 Mg Tablet) 1 mg PO DAILY [facility] Last Admin: 02/18/21 08:21 Dose: 1 mg Documented by: KIN Furosemide (Furosemide 40 Mg/4 Ml Vial) 40 mg IVPUSH BID@0900,1800 [facility]; Protocol Last Admin: 02/18/21 08:22 Dose: 40 mg Documented by: KIN Glucose (Glucose Gel 15 Gm Gel..Gram.) 15 gm PO Q15M PRN; Protocol PRN Reason: per Hypoglycemia Standing Ord. Doxycycline Hyclate 100 mg/ (Sodium Chloride) 250 mls @ 166.67 mls/hr IV Q12H [facility] Last Infusion: 02/18/21 08:06 Dose: 0 mls/hr Documented by: KIN Ampicillin Sodium/Sulbactam (Sodium 3 gm/ Sodium Chloride) 100 mls @ 200 mls/hr IV Q6H [facility] Last Infusion: 02/18/21 08:54 Dose: 0 mls/hr Documented by: KIN Insulin Human Lispro (Insulin Lispro 100 Unit/Ml 3 Ml Vial) 0 unit SUBCUT QIDACHS [facility]; Protocol Last Admin: 02/18/21 11:41 Dose: Not Given Documented by: KIN Non-Admin Reason: No Insulin Coverage Isosorbide Mononitrate (Isosorbide Mononitrate 30 Mg Tab.Er.24h) 30 mg PO DAILY [facility]; Protocol Last Admin: 02/18/21 08:21 Dose: 30 mg Documented by: KIN Levalbuterol HCl (Levalbuterol Hcl 1.25 Mg/0.5 Ml Vial.Neb) 1.25 mg INHALE Q2H PRN PRN Reason: shortness of breath/wheeze Last Admin: 02/17/21 08:28 Dose: 1.25 mg Documented by: SHARON Losartan Potassium (Losartan Potassium 50 Mg Tablet) 100 mg PO DAILY [facility]; Protocol Last Admin: 02/18/21 08:21 Dose: 100 mg Documented by: KIN Methylprednisolone Sodium Succinate (Methylprednisolone Sod Succ 40 Mg/Ml Vial) 40 mg IVPUSH Q24H [facility] Last Admin: 02/17/21 17:14 Dose: 40 mg Documented by: HERLINDA Montelukast Sodium (Montelukast Sodium 10 Mg Tablet) 10 mg PO BEDTIME [facility] Last Admin: 02/17/21 20:23 Dose: 10 mg Documented by: HALEIGH Nicotine Polacrilex (Nicotine Polacrilex 2 Mg Gum) 2 mg BUCCAL Q1H PRN PRN Reason: nicotine crav Omeprazole (Omeprazole 20 Mg Capsule.) 20 mg PO DAILY@0630 [facility] Last Admin: 02/18/21 06:21 Dose: 20 mg Documented by: HALEIGH Ondansetron HCl (Ondansetron Hcl 4 Mg/2 Ml Vial) 4 mg IVPUSH Q8H PRN PRN Reason: Nausea and Vomiting Pharmacy Consult (Consult Rx Perform Med Rec) 1 each MISCELLANE ONCE PRN PRN Reason: Consult order Quetiapine Fumarate (Quetiapine Fumarate 50 Mg Tablet) 50 mg PO BID [facility] Last Admin: 02/18/21 08:20 Dose: 50 mg Documented by: KIN Sertraline HCl (Sertraline Hcl 100 Mg Tablet) 200 mg PO DAILY [facility] Last Admin: 02/18/21 08:22 Dose: 200 mg Documented by: KIN Sodium Chloride (0.9 % Sodium Chloride Flush 3 Ml Syringe) 3 ml IVFLUSH QSHIFT [facility] Last Admin: 02/18/21 08:23 Dose: 3 ml Documented by: KIN Spironolactone (Spironolactone 25 Mg Tablet) 25 mg PO DAILY [facility]; Protocol Last Admin: 02/18/21 10:56 Dose: 12.5 mg Documented by: KIN Comments: 12.5mg given earlier this morning Tiotropium [place] (Tiotropium [place] 18 Mcg Cap.W.Dev) 1 puff INHALE RDAILY [facility] Last Admin: 02/18/21 09:03 Dose: Not Given Documented by: MARCIAL Non-Admin Reason: pt unavail Trazodone HCl (Trazodone Hcl 100 Mg Tablet) 100 mg PO BEDTIME PRN PRN Reason: Sleep Last Admin: 02/17/21 20:23 Dose: 100 mg Documented by: HALEIGH Labs CBC & Chem 7: 02/17/21 06:22 02/18/21 07:08 Labs: Laboratory Results - last 24 hr 02/17/21 02/17/21 02/18/21 15:50 19:59 07:08 Anion Gap 14 Estim Creat Clear Calc 62.0 Estimated GFR > 60 POC Glucose 141 H 151 H Random Glucose 89 Calcium 9.5 Magnesium 2.0 B-Natriuretic Peptide 02/18/21 02/18/21 02/18/21 07:08 07:19 11:13 Anion Gap Estim Creat Clear Calc Estimated GFR POC Glucose 91 111 Random Glucose Calcium Magnesium B-Natriuretic Peptide 362 H Microbiology Microbiology Results: Microbiology 02/15/21 16:22 Blood Culture - Preliminary Blood - Venous No growth after 48 hours. 02/15/21 15:30 Blood Culture - Preliminary Blood - Venous No growth after 48 hours. Echocardiogram Echocardiogram Results: TTE 02/16/21 1. Moderate to severe LV systolic dysfunction with LVEF of 30? 35% with mild LVH with impaired relaxation filling pattern ? ? ? 2. At least moderately dilated left atrium ? 3. Moderate mitral regurgitation ? 4. Moderately elevated right ventricular systolic pressure ? ? ? 5. No gross pericardial effusion ?? Assessment and Plan (1) Acute exacerbation of chronic obstructive airways disease: Status: Acute (2) Congestive heart failure: Status: Acute (3) Acute on chronic respiratory failure with hypoxemia: Status: Acute Assessment and Plan: hospital d#4 60 year-old woman with steroid-dependent COPD, chronic hypoxic respiratory failure on 3L O2 via NC, chronic HFrEF [30-35%], KELLIE nonadherent with CPAP, DM2, HTN, and tobacco abuse presenting with dyspnea and hypoxia, admitted for COPD exacerbation + pneumonia, also CHF exacerbation # acute/chronic resp failure - supplemental O2; wean to baseline 3L as tolerated # COPD exacerbation - continue IV steroids, standing/prn nebs, LAMA # CA-PNA - doxycycline d#08/08, RVP negative, BCx negative, PCT low # acute/chronic HFrEF # NICM # HTN - continue IV furosemide and follow I+O, weight, BNP; monitor BMP + Mg; Cardiology following; t/c outpt CardioMEMS device; needs better f/u as outpt - continue Imdur, losartan [increased dose to 100 mg/d for better blood pressure control]; increase spironolactone to 25 mg/d; start carvedilol 3.125 mg bid now - hs-Tn-I indeterminate, flat; no angina; no EKG changes # SVT - carvedilol; switch albuterol to levalbuterol # lactic acidosis - not septic; likely bronchodilator effect; does not need IV fluids # chronic iron deficiency anemia - oral repletion # mood disorder - continue quetiapine, sertraline, trazodone # DM2 - correction-dose lispro # tobacco abuse - NRT # VTE ppx - LMWH # dispo - PT recommends STR vs IPR Quality Stroke Does the patient have a stroke diagnosis?: No VTE Prior VTE?: No VTE Risk Level:: Medical - moderate - high VTE Device Contraindication: N/A - Device Ordered VTE Drug Contraindication: N/A - Med Ordered
[2021-02-18 16:29] LABS: Glucose, Whole Blood 165 mg/dL (60-115)
[2021-02-18] MEDS: methylPREDNISolone Sod Succ 40 MG/ML VIAL IVPUSH (17:39)
[2021-02-18] MEDS: Insulin Lispro 100 UNIT/ML 3 ML VIAL SUBCUT ×2 (17:43→21:12)
[2021-02-18] MEDS: Enoxaparin Sodium 40 MG/0.4 ML SYRINGE SUBCUT (17:43)
--- NOTE | 2021-02-18 17:45 | MHC.SL.SWA ---
Speech Pathologist Impression: Risk of Aspiration Risk of Aspiration Due to: History of Pneumonia Poor PO Intake Dysphasia Diet Status: Liquid Consistency and Strategies for Safe Swallow: Liquid Intake Recommendation: Thin Liquid Intake Strategies: Unrestricted Solid Food Consistency: Dietary Recommendations: Grnd/Mech Altered (NDD2) Additional Modifications to Solid Foods: Oral Medication Intake: Whole with Puree Compensatory Strategies and Precautions to be Taken for Safe Swallow: Sitting Upright (90 deg) Liquids from Straw Small Bites and Sips Alternate Liquids/Solids Rate of Ingestion Change Oral Check Supervision While Eating and Drinking for Safe Swallow: Intermittent Supervision Foods to Avoid: Swallowing Recommended Treatments: Recommendation for Speech: Comment: Patient demonstrated no overt s/s of aspiration with thin liquids via teaspoon, cup or straw sip. Timely mastication and good oral clearance noted with solids. Trace lingual residue observed with ground/mech altered (NDD 2) solids but successfully cleared with liquid wash. MODELING TEACHER will follow-up tomorrow morning to ensure tolerance. Frequency/Duration: Date Range for Service Req: Timeline to reassess: Elderly Sitter Clinican/Clinical Fellow: No Supervisory Statement: I have reviewed and agree with the student/clinical fellow's documentation: N/A Speech Language Pathologist: Janett Boyd M.A., CCC-MODELING TEACHER
[2021-02-18] MEDS: Acetaminophen 325 MG TABLET 650 MG PO (18:32)
[2021-02-18 20:44] LABS: Glucose, Whole Blood 167 mg/dL (60-115)
[2021-02-18] MEDS: Montelukast Sodium 10 MG TABLET PO (21:11)
[2021-02-19] VITALS (10 sets, daily range): BP systolic 155–180; BP diastolic 80–108; PULSE 76–94; RESP 16–20; TEMP 35.8–37.1; O2SAT 92–98; BMI 33.5
[2021-02-19] MEDS: Ampicillin Sodium/Sulbactam Na 3 GM in 0.9 % Sodium Chloride 100 ML IV ×3 (02:27→17:47)
[2021-02-19] MEDS: Omeprazole 20 MG CAPSULE.DR PO (05:43)
[2021-02-19] MEDS: Doxycycline Hyclate 100 MG in 0.9 % Sodium Chloride 250 ML 166.67 MG IV (05:43)
[2021-02-19 07:01] LABS: Anion Gap 15 (12-20); Blood Urea Nitrogen 23 mg/dL (9-16); Calcium 9.6 mg/dL (8.4-10.2); Carbon Dioxide 30 mmol/L (22-29); Chloride 103 mmol/L (96-108); Creatinine Clr Calc Pharmacy 61.5; Estimated Glomerular Filt Rate > 60; Glucose Random 95 mg/dL (60-115); Potassium 3.6 mmol/L (3.3-5.1); Sodium 144 mmol/L (135-145)
[2021-02-19 07:16] LABS: B Type Natriuretic Peptide 173 pg/mL (<100)
[2021-02-19 07:44] LABS: Glucose, Whole Blood 83 mg/dL (60-115)
[2021-02-19] MEDS: Losartan Potassium 50 MG TABLET 100 MG PO (09:14)
[2021-02-19] MEDS: carvediloL 3.125 MG TABLET 6.25 MG PO ×2 (09:14→22:10)
[2021-02-19] MEDS: Furosemide 40 MG/4 ML VIAL IVPUSH ×2 (09:15→17:47)
[2021-02-19] MEDS: Ferrous Sulfate 324 MG TABLET.DR PO (09:15)
[2021-02-19] MEDS: QUEtiapine Fumarate 50 MG TABLET PO ×2 (09:15→22:11)
[2021-02-19] MEDS: Isosorbide Mononitrate 30 MG TAB.ER.24H PO (09:15)
[2021-02-19] MEDS: Folic Acid 1 MG TABLET PO (09:15)
[2021-02-19] MEDS: Spironolactone 25 MG TABLET PO (09:15)
[2021-02-19] MEDS: Sertraline HCL 100 MG TABLET 200 MG PO (09:15)
[2021-02-19] MEDS: amLODIPine Besylate 5 MG TABLET PO (09:15)
[2021-02-19] MEDS: 0.9 % Sodium Chloride Flush 3 ML SYRINGE IVFLUSH (09:16)
[2021-02-19 11:20] LABS: Glucose, Whole Blood 101 mg/dL (60-115)
--- NOTE | 2021-02-19 11:52 | P.DS_ITS ---
DS: Providers Provider Date of Service: 02/19/21 Date of admission: 02/15/21 18:20 Primary care physician: Analisa Chavez MD Consults: 02/16/21 08:26 Consult to Cardiology Routine Consulting Provider: Bhupendra Germain Reason for consultation: SVT 4-6:30 this am, DS: Diagnosis Discharge Diagnosis (1) Acute exacerbation of chronic obstructive airways disease: Status: Acute (2) Congestive heart failure: Status: Acute (3) Acute on chronic respiratory failure with hypoxemia: Status: Acute (4) Acute on chronic systolic (congestive) heart failure: Status: Acute (5) Iron deficiency anemia: Status: Acute (6) Nonischemic cardiomyopathy: Status: Acute (7) Community acquired pneumonia: Status: Acute (8) Supraventricular tachycardia: Status: Acute DS: Summary Hospital Course Hospital Course: From admission history and physical, 02/15/21: Ms Romero is a 60 year-old woman with steroid-dependent COPD, chronic hypoxic respiratory failure on 3L O2 via NC, chronic HFrEF [30-35% Jun 2020], KELLIE nonadherent with CPAP, DM2, HTN, and tobacco abuse who presents with 2 days of worsening dyspnea, particularly with exertion, and cough productive of white sputum.? She endorses wheezing.? Denies fever.? No sick contacts; she lives alone.? No chest pain.? Denies leg edema. EMS was called and she was noted to be hypoxic with SaO2 in the low 80s, requiring 6L of O2 to maintain normoxemia. ? She was given magnesium, methylprednisolone, albuterol, and furosemide.? ? CXR showed bibasilar infiltrates and she was given ceftriaxone.? She was switched to a Venti mask with FiO2 40% and has SaO2 of 93% at the time of my evaluation. This 60 year-old woman with COPD, chronic hypoxic respiratory failure on 3L O2 via NC, chronic HFrEF [30-35%], KELLIE nonadherent with CPAP, DM2, HTN, and tobacco abuse presented with dyspnea and hypoxia. She was admitted to the [facility] for COPD exacerbation + pneumonia and also a CHF exacerbation. Hospital course by problem: # acute/chronic hypoxic respiratory failure Oxygen support was weaned down 2 to 3 L via nasal cannula and presently sating 96% # acute/chronic HFrEF due to non-schemic cardiomyopathy/uncontrolled hypertension Diuresed with IV furosemide. Cardiology was consulted. Echocardiogram showed LVEF 30-35%, similar to prior in June. Neurohormonal modulation was optimized with increased losartan dosage, spironolactone and carvedilol initiation. She was discharged with furosemide increased to 40 mg daily plus losartan, spironolactone, carvedilol, and Imdur,. She needs close outpatient Cardiology follow-up and would be a candidate for a CardioMEMS device. # SVT This was brief. She was started on beta-coco as above. # COPD exacerbation She was given IV steroids and discharged on a prednisone taper. # pneumonia Initially treated with doxycycline and ceftriaxone. Respiratory virus panel was negative, blood culture was negative, and PCT was low. However, she had an aspiration event, so was switched to ampicillin/sulbactam. She was discharged on amoxicillin/clavulanate. # aspiration Seen by .NET PROGRAMMER and cleared for NDD2 [ground/mechanical soft] diet. # lactic acidosis Not due to sepsis. Likely bronchdilator effect. # iron deficiency anemia Started on oral repletion. She is being discharged to SNF for inpatient pulmonary rehabilitation. She will need labs in 1 week (BNP, BMP, magnesium) and follow up with Cardiology in 2 weeks. Time Spent with Patient Time attestation: Total time spent providing and/or coordinating discharge services: Discharge coordination time: Greater than 30 minutes Quality: Stroke Does the patient have a stroke diagnosis?: No Physical Exam Vital Signs: Vital Signs: Last Vital Signs Temp 96.5 F L 02/19/21 08:00 Pulse 87 02/19/21 10:21 Resp 16 02/19/21 08:00 BP 162/80 H 02/19/21 10:21 Pulse Ox 95 02/19/21 10:21 Oxygen Flow Rate 3 02/15/21 13:47 Body Mass Index 33.5 Gen: NAD on 4L O2 via NC HEENT: sclera anicteric, moist mucus membranes Neck: supple, JVD present Lungs: diminished bilaterally Heart: regular rate and rhythm, no murmurs Abd: soft, non-tender, non-distended, obese Ext: no edema Skin: warm/well-perfused Neuro: alert and oriented x3, no focal findings Psych: appropriate affect DS: Data Data Completed and Pending Completed studies during hospitalization [Text1]: Laboratory Results WBC 9.7 X10*3/uL (4.8-10.8) 02/17/21 06:22 RBC 3.99 X10*6/uL (4.20-5.50) L 02/17/21 06:22 Hgb 9.3 g/dl (12.0-16.0) L 02/17/21 06:22 Hct 31.0 % (37-47) L 02/17/21 06:22 MCV 77.7 fL (80-98) L 02/17/21 06:22 MCH 23.3 pg (27.0-33.0) L 02/17/21 06:22 MCHC 30.0 g/dl (31.0-35.0) L 02/17/21 06:22 RDW 15.7 % (11.0-16.0) 02/17/21 06:22 Plt Count 192 X10*3/uL (160-400) 02/17/21 06:22 MPV 10.4 fL (9.4-12.3) 02/17/21 06:22 Immature Gran % (Auto) 0.6 % (0.0-0.4) H 02/16/21 05:55 Neut % (Auto) 86.8 % (45-73) H 02/16/21 05:55 Lymph % (Auto) 6.8 % (20-40) L 02/16/21 05:55 Lake % (Auto) 5.7 % (2-11) 02/16/21 05:55 Eos % (Auto) 0.0 % (0-4) 02/16/21 05:55 Baso % (Auto) 0.1 % (0-2) 02/16/21 05:55 Lymph # (Auto) 1.1 X10*3/uL (1.2-4.9) L 02/16/21 05:55 Lake # (Auto) 0.9 X10*3/uL (0.1-1.2) 02/16/21 05:55 Eos # (Auto) 0.0 X10*3/uL (0.0-0.4) 02/16/21 05:55 Baso # (Auto) 0.0 X10*3/uL (0.0-0.2) 02/16/21 05:55 Abs Immat Gran (auto) 0.10 X10*3/uL (0.00-0.03) H 02/16/21 05:55 Absolute Neuts (auto) 14.1 X10*3/uL (2.0-8.3) H 02/16/21 05:55 Absolute Nucleated RBC 0.000 X10*3/uL (0.0-0.012) 02/17/21 06:22 Nucleated RBC % (auto) 0.0 /100WBC (0.0-0.2) 02/17/21 06:22 VBG pH 7.44 (7.32-7.43) H 02/15/21 15:36 VBG pCO2 45 mmHg 02/15/21 15:36 VBG pO2 88 mmHg 02/15/21 15:36 VBG HCO3 31 mmol/L (22-26) H 02/15/21 15:36 VBG O2 Saturation 97.0 % 02/15/21 15:36 VBG Base Excess 6.5 mmol/L 02/15/21 15:36 Sodium 144 mmol/L (135-145) 02/19/21 06:01 Potassium 3.6 mmol/L (3.3-5.1) 02/19/21 06:01 Chloride 103 mmol/L (96-108) 02/19/21 06:01 Carbon Dioxide 30 mmol/L (22-29) H 02/19/21 06:01 Anion Gap 15 (12-20) 02/19/21 06:01 BUN 23 mg/dL (9-16) H 02/19/21 06:01 Creatinine 0.87 mg/dL (0.5-1.4) 02/19/21 06:01 Estim Creat Clear Calc 61.5 02/19/21 06:01 Estimated GFR > 60 02/19/21 06:01 POC Glucose 101 mg/dL (60-115) 02/19/21 11:12 Random Glucose 95 mg/dL (60-115) 02/19/21 06:01 Lactic Acid Cancelled 02/16/21 05:55 Lactic Acid Fup @ 2Hr 2.8 mmol/L (0.5-2.0) H* 02/15/21 20:11 Lactic Acid Fup @ 4Hr 3.8 mmol/L (0.5-2.0) H* 02/15/21 22:49 Calcium 9.6 mg/dL (8.4-10.2) 02/19/21 06:01 Magnesium 2.0 mg/dL (1.6-2.6) 02/19/21 06:01 Iron 24 mcg/dL (30-160) L 02/16/21 05:55 TIBC 377 mcg/dL (228-428) 02/16/21 05:55 % Saturation 6 % (15-50) L 02/16/21 05:55 Unsat Iron Binding 353 ug/dL 02/16/21 05:55 Ferritin 18 ng/mL (10-250) 02/16/21 05:55 Total Bilirubin 0.5 mg/dL (0.0-1.0) 02/15/21 15:30 Direct Bilirubin < 0.2 mg/dL (0.0-0.5) 02/15/21 15:30 AST 24 U/L (5-31) D 02/15/21 15:30 ALT 9 U/L (0-31) 02/15/21 15:30 Alkaline Phosphatase 143 U/L (39-117) H 02/15/21 15:30 Troponin I High Sens 27.4 ng/L (<3.5-17.0) H* 02/15/21 20:11 B-Natriuretic Peptide 173 pg/mL (<100) H 02/19/21 06:01 Total Protein 8.3 g/dL (6.5-8.0) H 02/15/21 15:30 Albumin 4.3 g/dL (3.5-5.0) 02/15/21 15:30 Procalcitonin 0.04 ng/mL 02/17/21 06:22 Urine Color STRAW 02/15/21 16:22 Urine Appearance CLEAR 02/15/21 16:22 Urine pH 6.0 (5.0-8.0) 02/15/21 16:22 Ur Specific [place]well <= 1.005 (1.005-1.025) 02/15/21 16:22 Urine Protein NEG MG/DL (NEG-TRACE) 02/15/21 16:22 Urine Glucose (UA) NEG MG/DL (NEG) 02/15/21 16:22 Urine Ketones NEG MG/DL (NEG) 02/15/21 16:22 Urine Blood NEG (NEG) 02/15/21 16:22 Urine Nitrite NEG (NEG) 02/15/21 16:22 Ur Leukocyte Esterase NEG (NEG) 02/15/21 16:22 Respiratory Panel Joseph See Note 02/16/21 02:25 Adenovirus (Rapid PCR) Not Detected (Not Detect.) 02/16/21 02:25 B.pert (TEM-PCR) Not Detected (Not Detect.) 02/16/21 02:25 B.parapertussis DNA PCR Not Detected (Not Detect.) 02/16/21 02:25 C. pneumoniae DNA (PCR) Not Detected (Not Detect.) 02/16/21 02:25 Coronavirus OC43 (PCR) Not Detected (Not Detect.) 02/16/21 02:25 Coronavirus HKU1 (PCR) Not Detected (Not Detect.) 02/16/21 02:25 Coronavirus 229E (PCR) Not Detected (Not Detect.) 02/16/21 02:25 COVID-19 (ANEL) Negative (Negative) 02/15/21 16:22 COVID-19 Clin Com See Note 02/15/21 16:22 Coronavirus NL63 (PCR) Not Detected (Not Detect.) 02/16/21 02:25 Human Metapneumovir PCR Not Detected (Not Detect.) 02/16/21 02:25 Influenza A (RT-PCR) Not Detected (Not Detect.) 02/16/21 02:25 Influenza B (RT-PCR) Not Detected (Not Detect.) 02/16/21 02:25 M. pneumoniae (PCR) Not Detected (Not Detect.) 02/16/21 02:25 Parainfluenza 1 (PCR) Not Detected (Not Detect.) 02/16/21 02:25 Parainfluenza 2 (PCR) Not Detected (Not Detect.) 02/16/21 02:25 Parainfluenza 3 (PCR) Not Detected (Not Detect.) 02/16/21 02:25 Parainfluenza 4 (PCR) Not Detected (Not Detect.) 02/16/21 02:25 RSV (PCR) Not Detected (Not Detect.) 02/16/21 02:25 Entero/Rhino (PCR) Not Detected (Not Detect.) 02/16/21 02:25 SARS-CoV-2 RNA (RT-PCR) Not Detected (Not Detect.) 02/16/21 02:25 Impressions Chest X-Ray 02/15/21 14:01 IMPRESSION: Patchy bibasilar airspace opacities, new when compared to the prior examination. Findings may represent atelectasis versus early infiltrates. TTE 02/16/21 1. Moderate to severe LV systolic dysfunction with LVEF of 30? 35% with mild LVH with impaired relaxation filling pattern ? ? ? 2. At least moderately dilated left atrium ? 3. Moderate mitral regurgitation ? 4. Moderately elevated right ventricular systolic pressure ? ? ? 5. No gross pericardial effusion ? Discharge Plan Discharge Anticipated Discharge Date/Time: 02/20/21 15:48 Patient Disposition: [facility] Discharge Diagnosis: COPD exacerbation, CHF exacerbation, pneumonia, aspiration, tobacco abuse Referrals: Analisa Carr MD [Primary Care Provider] - 1 Week Bhupendra Germain MD [Physician] - 2 Weeks Discharge Medications: New amoxicillin 875 mg tablet 875 mg PO BID Qty: 10 RF: 0 nicotine (polacrilex) 2 mg Gum 2 mg buccal Q1H PRN (Reason: nicotine crav) Qty: 100 RF: 0 losartan 50 mg Tablet 100 mg PO DAILY Qty: 30 RF: 0 amlodipine 5 mg Tablet 5 mg PO DAILY Qty: 30 RF: 0 spironolactone 25 mg Tablet 25 mg PO DAILY Qty: 30 RF: 0 carvedilol 3.125 mg Tablet 6.25 mg PO BID Qty: 60 RF: 0 ferrous sulfate 324 mg (65 mg iron) Tablet,Delayed Release (Dr/Ec) 324 mg PO DAILY Qty: 30 RF: 0 prednisone 10 mg tablet See Rx Instructions .ROUTE .COMPLEX Qty: 21 RF: 0 furosemide 40 mg tablet 40 mg PO BID Qty: 60 RF: 0 Continued montelukast 10 mg tablet 10 mg PO BEDTIME Qty: 30 RF: 11 isosorbide mononitrate 30 mg tablet extended release 24 hr 30 mg PO DAILY 90 Days Qty: 90 RF: 3 Spiriva with HandiHaler 18 mcg capsule, w/inhalation device 1 cap inhalation DAILY 30 Days Qty: 30 RF: 5 sertraline 100 mg tablet 200 mg PO DAILY 90 Days Qty: 180 RF: 1 quetiapine 50 mg tablet 50 mg PO BID 90 Days Qty: 180 RF: 1 omeprazole 20 mg capsule,delayed release(DR/EC) 20 mg PO DAILY 30 Days Qty: 30 RF: 1 trazodone 50 mg tablet 100 mg PO BEDTIME PRN (Reason: Sleep) RF: 0 folic acid 1 mg Tablet 1 mg PO DAILY Qty: 90 RF: 4 ipratropium-albuterol 0.5 mg-3 mg(2.5 mg base)/3 mL solution for nebulization 3 ml inhalation QID PRN (Reason: Shortness Of Breath) RF: 0 Discontinued losartan 50 mg tablet 50 mg PO DAILY 90 Days Qty: 90 RF: 3 prednisone 5 mg tablet 5 mg PO DAILY 30 Days Qty: 30 RF: 1 furosemide [Lasix] 40 mg tablet 40 mg PO DAILY Qty: 30 RF: 0 Discharge Orders: Discharge Order (Routine); Ordered 02/19/21 Ordered By: Ashutosh Card Diet: diabetic diet and low salt diet Activity on Discharge: As tolerated Stand Alone Forms: Patient Portal Discharge page Other Ambulatory Orders: Basic Metabolic Panel (Routine) Timeframe: 1 Week Facility: [facility] - Location: Laboratory Ordered By: Ashutosh Card B Type Natriuretic Peptide (Routine) Timeframe: 1 Week Facility: [facility] - Location: Laboratory Ordered By: Ashutosh Card Magnesium (Routine) Timeframe: 1 Week Facility: [facility] - Location: Laboratory Ordered By: Ashutosh Card Activity Restrictions/Additional Instructions: ground/mechanical diet [NDD2] Care Plan Goals: cardiopulmonary health Health Concerns: COPD exacerbation, CHF exacerbation, pneumonia, aspiration, tobacco abuse Plan of Treatment: COPD: take prednisone 40 mg daily x 2 days, then 30 mg daily x 2 days, then 20 mg daily x 2 days, then 10 mg daily x 2 days, then 5 mg daily x 2 days. Quit smoking; use nicotine gum to help. CHF/hypertension: increase furosemide to 40 mg twice daily. start spironolactone 25 mg once daily. start carvedilol 6.25 mg twice daily. start amlodipine 5 mg once daily. increase losartan to 100 mg once daily. continue Imdur 30 mg daily. check labs in 1 week: BMP, BNP, magnesium. anemia: take ferrous sulfate 324 mg once daily pneumonia/aspiration: take amoxicillin/clavulanate 875/125 mg twice daily for 5 days. follow a ground/mechanical (NDD2) solids diet. TO REHAB FOR LESS THAN 30 DAYS Assessment: see Discharge Summary Patient Instructions: Heart Failure (DC), COPD (Chronic Obstructive Pulmonary Disease) (DC), Pneumonia (DC), Level 2 National Dysphagia Diet (DC) Discharge Date/Time: 02/20/21 17:30
--- NOTE | 2021-02-19 12:19 | HO.PM.IMPN ---
Subjective Subjective Date of Service: 02/19/21 Interval History: breathing improved but still dyspneic no chest pain willing to go to IPR/STR Review of Systems Review of Systems: Yes all other systems are reviewed and are negative Physical Exam Vital Signs: Vital Signs: Last Vital Signs Temp 98.2 F 02/19/21 11:50 Pulse 94 02/19/21 11:50 Resp 20 02/19/21 11:50 BP 162/80 H 02/19/21 10:21 Pulse Ox 93 02/19/21 11:50 Oxygen Flow Rate 3 02/15/21 13:47 Body Mass Index 33.5 Gen: NAD on 4L O2 via NC HEENT: sclera anicteric, moist mucus membranes Neck: supple, JVD present Lungs: diminished bilaterally Heart: regular rate and rhythm, no murmurs Abd: soft, non-tender, non-distended, obese Ext: no edema Skin: warm/well-perfused Neuro: alert and oriented x3, no focal findings Psych: appropriate affect Objective Data Active Medications Acetaminophen (Acetaminophen 325 Mg Tablet) 650 mg PO Q6H PRN PRN Reason: Pain, Mild (Pain Scale 1-3) Last Admin: 02/18/21 18:32 Dose: 650 mg Documented by: KIN Amlodipine Besylate (Amlodipine Besylate 5 Mg Tablet) 5 mg PO DAILY FOR[facility]LY [facility], [facility]; Protocol Last Admin: 02/19/21 09:15 Dose: 5 mg Documented by: KIN Carvedilol (Carvedilol 3.125 Mg Tablet) 6.25 mg PO BID [facility]LY [facility], [facility]1983; Protocol Last Admin: 02/19/21 09:14 Dose: 6.25 mg Documented by: KIN Dextrose (Dextrose 50 % 25 Gm/50 Ml Vial) 25 gm IVPUSH Q15M PRN; Protocol PRN Reason: per Hypoglycemia Standing Ord. Enoxaparin Sodium (Enoxaparin Sodium 40 Mg/0.4 Ml Syringe) 40 mg SUBCUT Q24H [facility], [facility]1983 Last Admin: 02/18/21 17:43 Dose: 40 mg Documented by: KIN Ferrous Sulfate (Ferrous Sulfate 324 Mg Tablet.) 324 mg PO DAILY [facility], [facility]1983 Last Admin: 02/19/21 09:15 Dose: 324 mg Documented by: KIN Folic Acid (Folic Acid 1 Mg Tablet) 1 mg PO DAILY [facility], [facility]1983 Last Admin: 02/19/21 09:15 Dose: 1 mg Documented by: KIN Furosemide (Furosemide 40 Mg/4 Ml Vial) 40 mg IVPUSH BID@0900,1800 [facility], [facility]1983; Protocol Last Admin: 02/19/21 09:15 Dose: 40 mg Documented by: KIN Glucose (Glucose Gel 15 Gm Gel..Gram.) 15 gm PO Q15M PRN; Protocol PRN Reason: per Hypoglycemia Standing Ord. Doxycycline Hyclate 100 mg/ (Sodium Chloride) 250 mls @ 166.67 mls/hr IV Q12H [facility], [facility] Last Infusion: 02/19/21 07:57 Dose: 0 mls/hr Documented by: KIN Ampicillin Sodium/Sulbactam (Sodium 3 gm/ Sodium Chloride) 100 mls @ 200 mls/hr IV Q6H [facility], [facility] Last Infusion: 02/19/21 11:29 Dose: 0 mls/hr Documented by: KIN Insulin Human Lispro (Insulin Lispro 100 Unit/Ml 3 Ml Vial) 0 unit SUBCUT QIDACHS [facility], 1928–1983; Protocol Last Admin: 02/19/21 11:30 Dose: Not Given Documented by: KIN Non-Admin Reason: No Insulin Coverage Isosorbide Mononitrate (Isosorbide Mononitrate 30 Mg Tab.Er.24h) 30 mg PO DAILY [facility], [facility]; Protocol Last Admin: 02/19/21 09:15 Dose: 30 mg Documented by: KIN Levalbuterol HCl (Levalbuterol Hcl 1.25 Mg/0.5 Ml Vial.Neb) 1.25 mg INHALE Q2H PRN PRN Reason: shortness of breath/wheeze Last Admin: 02/17/21 08:28 Dose: 1.25 mg Documented by: SHARON Losartan Potassium (Losartan Potassium 50 Mg Tablet) 100 mg PO DAILY [facility], [facility]1983; Protocol Last Admin: 02/19/21 09:14 Dose: 100 mg Documented by: KIN Methylprednisolone Sodium Succinate (Methylprednisolone Sod Succ 40 Mg/Ml Vial) 40 mg IVPUSH Q24H [facility], [facility]1983 Last Admin: 02/18/21 17:39 Dose: 40 mg Documented by: KIN Montelukast Sodium (Montelukast Sodium 10 Mg Tablet) 10 mg PO BEDTIME [facility], [facility] Last Admin: 02/18/21 21:11 Dose: 10 mg Documented by: HO.DESROA Nicotine Polacrilex (Nicotine Polacrilex 2 Mg Gum) 2 mg BUCCAL Q1H PRN PRN Reason: nicotine crav Omeprazole (Omeprazole 20 Mg Capsule.Dr) 20 mg PO DAILY@0630 [facility], [facility] Last Admin: 02/19/21 05:43 Dose: 20 mg Documented by: HALEIGH Ondansetron HCl (Ondansetron Hcl 4 Mg/2 Ml Vial) 4 mg IVPUSH Q8H PRN PRN Reason: Nausea and Vomiting Pharmacy Consult (Consult Rx Perform Med Rec) 1 each MISCELLANE ONCE PRN PRN Reason: Consult order Quetiapine Fumarate (Quetiapine Fumarate 50 Mg Tablet) 50 mg PO BID [facility], [facility] Last Admin: 02/19/21 09:15 Dose: 50 mg Documented by: KIN Sertraline HCl (Sertraline Hcl 100 Mg Tablet) 200 mg PO DAILY [facility], [facility] Last Admin: 02/19/21 09:15 Dose: 200 mg Documented by: KIN Sodium Chloride (0.9 % Sodium Chloride Flush 3 Ml Syringe) 3 ml IVFLUSH QSHIFT [facility], [facility]1983 Last Admin: 02/19/21 09:16 Dose: 3 ml Documented by: KIN Spironolactone (Spironolactone 25 Mg Tablet) 25 mg PO DAILY [facility], [facility]; Protocol Last Admin: 02/19/21 09:15 Dose: 25 mg Documented by: KIN Tiotropium Hardtner (Tiotropium Hardtner 18 Mcg Cap.W.Dev) 1 puff INHALE RDAILY [facility], [facility] Last Admin: 02/19/21 07:46 Dose: 1 puff Documented by: MARCIAL Trazodone HCl (Trazodone Hcl 100 Mg Tablet) 100 mg PO BEDTIME PRN PRN Reason: Sleep Last Admin: 02/17/21 20:23 Dose: 100 mg Documented by: HALEIGH Labs CBC & Chem 7: 02/17/21 06:22 02/19/21 06:01 Labs: Laboratory Results - last 24 hr 02/18/21 02/18/21 02/19/21 16:19 20:38 06:01 Anion Gap 15 Estim Creat Clear Calc 61.5 Estimated GFR > 60 POC Glucose 165 H 167 H Random Glucose 95 Calcium 9.6 Magnesium 2.0 B-Natriuretic Peptide 10/02/19/21 02/19/21 06:01 07:34 11:12 Anion Gap Estim Creat Clear Calc Estimated GFR POC Glucose 83 101 Random Glucose Calcium Magnesium B-Natriuretic Peptide 173 H Assessment and Plan (1) Acute exacerbation of chronic obstructive airways disease: Status: Acute (2) Congestive heart failure: Status: Acute (3) Acute on chronic respiratory failure with hypoxemia: Status: Acute Assessment and Plan: hospital d#5 60 year-old woman with steroid-dependent COPD, chronic hypoxic respiratory failure on 3L O2 via NC, chronic HFrEF [30-35%], KELLIE nonadherent with CPAP, DM2, HTN, and tobacco abuse presenting with dyspnea and hypoxia, admitted for COPD exacerbation + pneumonia, also CHF exacerbation # acute/chronic resp failure - supplemental O2; wean to baseline 3L as tolerated # COPD exacerbation - continue IV steroids, will d/c on PO taper, standing/prn nebs, LAMA # CA-PNA - ampicilliin/sulbactam d#07/08, RVP negative, BCx negative, PCT low # acute/chronic HFrEF # NICM # HTN - continue IV furosemide and follow I+O, weight, BNP; monitor BMP + Mg; Cardiology following; t/c outpt CardioMEMS device; needs better f/u as outpt - continue Imdur, losartan [increased dose to 100 mg/d for better blood pressure control]; increased spironolactone to 25 mg/d; increase carvedilol to 6.25 mg bid - hs-Tn-I indeterminate, flat; no angina; no EKG changes # SVT - carvedilol; has not recurred # lactic acidosis - not septic; likely bronchodilator effect; does not need IV fluids # chronic iron deficiency anemia - oral repletion # mood disorder - continue quetiapine, sertraline, trazodone # DM2 - correction-dose lispro # tobacco abuse - NRT # VTE ppx - LMWH # dispo - PT recommends STR vs IPR- awaiting placement Quality Stroke Does the patient have a stroke diagnosis?: No VTE Prior VTE?: No VTE Risk Level:: Medical - moderate - high VTE Device Contraindication: N/A - Device Ordered VTE Drug Contraindication: N/A - Med Ordered
[2021-02-19 13:27] LABS: Influenza A PCR NEGATIVE (Negative); Influenza B PCR NEGATIVE (Negative); Resp Syncy Virus RNA Qual PCR NEGATIVE (Negative); SARS COV2 PCR INHOUSE NEGATIVE (Negative)
--- NOTE | 2021-02-19 15:19 | MHC.CM.PN ---
Female 60 DX Hypoxia pna copd. Discharge order received today. The search of an unvaccinated bed is in progress. 81 referrals have sent out. There is not an accepting facility, yet. Bed search continues.
[2021-02-19 15:59] LABS: Glucose, Whole Blood 106 mg/dL (60-115)
--- NOTE | 2021-02-19 17:36 | MHC.SL.SWA ---
Speech Pathologist Impression: Risk of Aspiration Risk of Aspiration Due to: History of Pneumonia Poor PO Intake Dysphasia Diet Status: Liquid Consistency and Strategies for Safe Swallow: Liquid Intake Recommendation: Thin Liquid Intake Strategies: Small Sips No Straws Solid Food Consistency: Dietary Recommendations: Chopped/Advanced (NDD3) Additional Modifications to Solid Foods: Recommend UPGRADE to CHOPPED/ADVANCED (NDD3) solids with sauce/gravy and maintain THIN liquids with pills WHOLE in PUREE. Recommend intermittent supervision to ensure aspiration precautions and to monitor tolerance. Message sent to MD, RD, and RN. DIRECTOR OF PSYCHIATRY updated diet order in Expanse. Oral Medication Intake: Whole with Puree Compensatory Strategies and Precautions to be Taken for Safe Swallow: Sitting Upright (90 deg) No Straw Small Bites and Sips Alternate Liquids/Solids Rate of Ingestion Change Avoid Specific Foods Supervision While Eating and Drinking for Safe Swallow: Intermittent Supervision Foods to Avoid: dry, crumbly foods Swallowing Recommended Treatments: Compens. Strategy Educat. Recommendation for Speech: Comment: Recommend food to be served with sauce/gravy. Continue aspiration precautions and intermittent supervision to ensure tolerance. Weatherstrip Machine Operator Clinican/Clinical Fellow: No Supervisory Statement: I have reviewed and agree with the student/clinical fellow's documentation: N/A Speech Language Pathologist: Astrid Oropeza M.A., CCC-DIRECTOR OF PSYCHIATRY
[2021-02-19] MEDS: methylPREDNISolone Sod Succ 40 MG/ML VIAL IVPUSH (17:47)
[2021-02-19] MEDS: Enoxaparin Sodium 40 MG/0.4 ML SYRINGE SUBCUT (17:48)
[2021-02-19 19:55] LABS: Glucose, Whole Blood 115 mg/dL (60-115)
[2021-02-19] MEDS: Montelukast Sodium 10 MG TABLET PO (22:11)
[2021-02-20] VITALS (11 sets, daily range): BP systolic 140–163; BP diastolic 69–90; PULSE 79–89; RESP 18–20; TEMP 36.3–37.2; O2SAT 90–99; BMI 33.3
--- NOTE | 2021-02-20 00:05 | P.EN_ITS ---
Event Note Date of Service: 02/20/21 Event Note: Patient lost IV access. Due for Unasyn at 1:00 a.m.. Multiple at tempts were made to obtain IV access with no success. Unasyn placed on hold, patient given 1 dose amoxicillin.
[2021-02-20] MEDS: Amoxicillin/Potassium Clav 875 MG TABLET PO (01:00)
[2021-02-20] MEDS: Omeprazole 20 MG CAPSULE.DR PO (05:29)
[2021-02-20 07:31] LABS: Glucose, Whole Blood 82 mg/dL (60-115)
--- NOTE | 2021-02-20 09:55 | MHC.SL.DTX ---
Pre-Treatment Diet: GROUND/MECH ALTERED (NDD2) solids THIN liquids WHOLE pills in PUREE Subjective: Changes made to current diet?: No Dysphasia Diet Status: NDD3 CHOPPED/ADVANCED solids with THIN liquids Liquid Consistency and Strategies: Liquid Intake Recommendation: Thin Compensatory Strategies for Safe Swallow: Small Sips No Straws Compensatory Strategies for Safe Swallow(b): Sitting Upright (90 deg) No Straw Small Bites and Sips Alternate Liquids/Solids Rate of Ingestion Change Avoid Specific Foods Solid Food Consistency: Dietary Recommendations: Chopped/Advanced (NDD3) Additional Modifications to Solids: Recommend UPGRADE to CHOPPED/ADVANCED (NDD3) solids with sauce/gravy and maintain THIN liquids with pills WHOLE in PUREE. Recommend intermittent supervision to ensure aspiration precautions and to monitor tolerance. Oral Medication Intake: Whole with Puree Strategies and Precautions to be Taken for Safe Swallow: Compensatory Swallowing Status: Sitting Upright (90 deg) No Straw Small Bites and Sips Alternate Liquids/Solids Rate of Ingestion Change Avoid Specific Foods Supervision While Eating and/Drinking: Intermittent Supervision Foods to Avoid: dry, crumbly foods Swallowing Recommended Treatments: Compens. Strategy Educat. Level of Impact on: Daily activities: Mild Interpersonal interactions: None Community: None Prognosis for Improvement: Good Recommendation for Speech: Comment: Recommend food to be served with sauce/gravy. Continue aspiration precautions and intermittent supervision to ensure tolerance. Additional Comments: Treatment: Patient was seen for dysphagia treatment while seated upright in her bedside chair. Pt understood basic Finnish spoken by this LEATHER COVERER during her session. Current diet consistency NDD3 CHOPPED/ADVANCED solids and THIN liquids. Pt reported no difficulty consuming her breakfast of khmer toast with fruit. She declined intake of solids during her session this date. She tolerated thin liquids via cup sip for which no overt s/s aspiration were noted. Updated with RN via secure [place] text who reported that pt has been tolerating her recommended diet consistency without any difficulty. LEATHER COVERER will continue to follow pt throughout her hospitalization. Assessment: Correspondence Section Supervisor Clinican/Clinical Fellow: No Supervisory Statement: I have reviewed and agree with the student/clinical fellow's documentation: N/A Speech Language Pathologist: Rebecca Hubbard M.A., [facility]
[2021-02-20] MEDS: amLODIPine Besylate 5 MG TABLET PO (11:09)
[2021-02-20] MEDS: Losartan Potassium 50 MG TABLET 100 MG PO (11:10)
[2021-02-20] MEDS: carvediloL 3.125 MG TABLET 6.25 MG PO (11:10)
[2021-02-20] MEDS: Folic Acid 1 MG TABLET PO (11:10)
[2021-02-20] MEDS: QUEtiapine Fumarate 50 MG TABLET PO (11:10)
[2021-02-20] MEDS: Isosorbide Mononitrate 30 MG TAB.ER.24H PO (11:10)
[2021-02-20] MEDS: predniSONE 20 MG TABLET 40 MG PO (11:10)
[2021-02-20] MEDS: Sertraline HCL 100 MG TABLET 200 MG PO (11:11)
[2021-02-20] MEDS: Spironolactone 25 MG TABLET PO (11:11)
[2021-02-20] MEDS: Furosemide 40 MG TABLET PO (11:11)
[2021-02-20 11:22] LABS: Glucose, Whole Blood 91 mg/dL (60-115)
--- NOTE | 2021-02-20 11:32 | P.PNIM_ITS ---
Subjective Subjective Date of Service: 02/20/21 Interval History: breathing improved but still dyspneic no chest pain willing to go to IPR/STR, lost IV access overnight Review of Systems no fever no sob (baseline) Physical Exam Vital Signs: Vital Signs: Last Vital Signs Temp 97.5 F 02/20/21 11:18 Pulse 87 02/20/21 11:18 Resp 18 02/20/21 11:18 BP 142/89 H 02/20/21 11:18 Pulse Ox 92 02/20/21 11:18 Oxygen Flow Rate 3 02/15/21 13:47 Body Mass Index 33.3 Gen: NAD on 4L O2 via NC HEENT: sclera anicteric, moist mucus membranes Neck: supple, JVD present Lungs: diminished bilaterally Heart: regular rate and rhythm, no murmurs Abd: soft, non-tender, non-distended, obese Ext: no edema Skin: warm/well-perfused Neuro: alert and oriented x3, no focal findings Psych: appropriate affect Objective Data Active Medications Acetaminophen (Acetaminophen 325 Mg Tablet) 650 mg PO Q6H PRN PRN Reason: Pain, Mild (Pain Scale 1-3) Last Admin: 02/18/21 18:32 Dose: 650 mg Documented by: KIN Amlodipine Besylate (Amlodipine Besylate 5 Mg Tablet) 5 mg PO DAILY [facility]; Protocol Last Admin: 02/20/21 11:09 Dose: 5 mg Documented by: JOSSE Carvedilol (Carvedilol 3.125 Mg Tablet) 6.25 mg PO BID [facility]; Protocol Last Admin: 02/20/21 11:10 Dose: 6.25 mg Documented by: JOSSE Dextrose (Dextrose 50 % 25 Gm/50 Ml Vial) 25 gm IVPUSH Q15M PRN; Protocol PRN Reason: per Hypoglycemia Standing Ord. Enoxaparin Sodium (Enoxaparin Sodium 40 Mg/0.4 Ml Syringe) 40 mg SUBCUT Q24H [facility] Last Admin: 02/19/21 17:48 Dose: 40 mg Documented by: KIN Ferrous Sulfate (Ferrous Sulfate 324 Mg Tablet.) 324 mg PO DAILY [facility] Last Admin: 02/20/21 11:11 Dose: Not Given Documented by: JOSSE Non-Admin Reason: Patient Refused Folic Acid (Folic Acid 1 Mg Tablet) 1 mg PO DAILY [facility] Last Admin: 02/20/21 11:10 Dose: 1 mg Documented by: JOSSE Furosemide (Furosemide 40 Mg Tablet) 40 mg PO BID@0900,1800 [facility]; Protocol Last Admin: 02/20/21 11:11 Dose: 40 mg Documented by: JOSSE Glucose (Glucose Gel 15 Gm Gel..Gram.) 15 gm PO Q15M PRN; Protocol PRN Reason: per Hypoglycemia Standing Ord. Insulin Human Lispro (Insulin Lispro 100 Unit/Ml 3 Ml Vial) 0 unit SUBCUT QIDACHS [facility]; Protocol Last Admin: 02/20/21 11:19 Dose: Not Given Documented by: JOSSE Non-Admin Reason: No Insulin Coverage Isosorbide Mononitrate (Isosorbide Mononitrate 30 Mg Tab.Er.24h) 30 mg PO DAILY [facility]; Protocol Last Admin: 02/20/21 11:10 Dose: 30 mg Documented by: JOSSE Levalbuterol HCl (Levalbuterol Hcl 1.25 Mg/0.5 Ml Vial.Guero) 1.25 mg INHALE Q2H PRN PRN Reason: shortness of breath/wheeze Last Admin: 02/17/21 08:28 Dose: 1.25 mg Documented by: SHARON Losartan Potassium (Losartan Potassium 50 Mg Tablet) 100 mg PO DAILY [facility]; Protocol Last Admin: 02/20/21 11:10 Dose: 100 mg Documented by: JOSSE Montelukast Sodium (Montelukast Sodium 10 Mg Tablet) 10 mg PO BEDTIME [facility] Last Admin: 02/19/21 22:11 Dose: 10 mg Documented by: CHAPARRO Nicotine Polacrilex (Nicotine Polacrilex 2 Mg Gum) 2 mg BUCCAL Q1H PRN PRN Reason: nicotine crav Omeprazole (Omeprazole 20 Mg Capsule.) 20 mg PO DAILY@0630 [facility] Last Admin: 02/20/21 05:29 Dose: 20 mg Documented by: CHAPARRO Ondansetron HCl (Ondansetron Hcl 4 Mg/2 Ml Vial) 4 mg IVPUSH Q8H PRN PRN Reason: Nausea and Vomiting Pharmacy Consult (Consult Rx Perform Med Rec) 1 each MISCELLANE ONCE PRN PRN Reason: Consult order Prednisone (Prednisone 20 Mg Tablet) 40 mg PO DAILY [facility] Last Admin: 02/20/21 11:10 Dose: 40 mg Documented by: JOSSE Quetiapine Fumarate (Quetiapine Fumarate 50 Mg Tablet) 50 mg PO BID [facility] Last Admin: 02/20/21 11:10 Dose: 50 mg Documented by: JOSSE Sertraline HCl (Sertraline Hcl 100 Mg Tablet) 200 mg PO DAILY [facility] Last Admin: 02/20/21 11:11 Dose: 200 mg Documented by: JOSSE Sodium Chloride (0.9 % Sodium Chloride Flush 3 Ml Syringe) 3 ml IVFLUSH QSHIFT [facility] Last Admin: 02/20/21 11:09 Dose: Not Given Documented by: JOSSE Non-Admin Reason: No Access Spironolactone (Spironolactone 25 Mg Tablet) 25 mg PO DAILY [facility]; Protocol Last Admin: 02/20/21 11:11 Dose: 25 mg Documented by: JOSSE Tiotropium Gobler (Tiotropium Gobler 18 Mcg Cap.W.Dev) 1 puff INHALE RDAILY [facility] Last Admin: 02/20/21 08:26 Dose: 1 puff Documented by: MANISH Trazodone HCl (Trazodone Hcl 100 Mg Tablet) 100 mg PO BEDTIME PRN PRN Reason: Sleep Last Admin: 02/17/21 20:23 Dose: 100 mg Documented by: HALEIGH Labs CBC & Chem 7: 02/17/21 06:22 02/19/21 06:01 Labs: Laboratory Results - last 24 hr 02/19/21 02/19/21 02/19/21 12:30 15:56 19:50 POC Glucose 106 115 Coronavirus (PCR) NEGATIVE Influenza Type A (PCR) NEGATIVE Influenza Type B (PCR) NEGATIVE RSV RNA Qual (PCR) NEGATIVE 02/20/21 02/20/21 07:26 11:17 POC Glucose 82 91 Coronavirus (PCR) Influenza Type A (PCR) Influenza Type B (PCR) RSV RNA Qual (PCR) Assessment and Plan (1) Acute exacerbation of chronic obstructive airways disease: Status: Acute (2) Congestive heart failure: Status: Acute (3) Acute on chronic respiratory failure with hypoxemia: Status: Acute Assessment and Plan: hospital d#6 60 year-old woman with steroid-dependent COPD, chronic hypoxic respiratory failure on 3L O2 via NC, chronic HFrEF [30-35%], KELLIE nonadherent with CPAP, DM2, HTN, and tobacco abuse presenting with dyspnea and hypoxia, admitted for COPD exacerbation + pneumonia, also CHF exacerbation # acute/chronic resp failure - supplemental O2; wean to baseline 2 as tolerated # COPD exacerbation - IV steroid to PO prednisone, standing/prn nebs, LAMA # CA-PNA - ampicilliin/sulbactam d#08/08, RVP negative, BCx negative, PCT low, change to PO Augmentin # acute/chronic HFrEF # NICM # HTN - change to PO furosemide and follow I+O, weight, BNP; monitor BMP + Mg; Cardiology following; t/c outpt CardioMEMS device; needs better f/u as outpt - continue Imdur, losartan [increased dose to 100 mg/d for better blood pressure control]; increased spironolactone to 25 mg/d; continue carvedilol to 6.25 mg bid - hs-Tn-I indeterminate, flat; no angina; no EKG changes # SVT - carvedilol; has not recurred # lactic acidosis - not septic; likely bronchodilator effect; does not need IV fluids # chronic iron deficiency anemia - oral repletion # mood disorder - continue quetiapine, sertraline, trazodone # DM2 - correction-dose lispro # tobacco abuse - NRT # VTE ppx - LMWH # dispo - PT recommends STR vs IPR- awaiting placement Quality Stroke Does the patient have a stroke diagnosis?: No VTE Prior VTE?: No VTE Risk Level:: Medical - moderate - high VTE Device Contraindication: N/A - Device Ordered VTE Drug Contraindication: N/A - Med Ordered
--- NOTE | 2021-02-20 15:10 | MHC.CM.PN ---
Female 60 DX COPD PNA discharged today to [facility]. BLS is booked for 4pm. All discharge information has been sent to the facility.
--- NOTE | 2021-02-20 15:48 | PM.DS ---
DS: Providers Provider Date of Service: 02/20/21 Date of admission: 02/15/21 18:20 Primary care physician: Analisa Chavez MD Consults: 02/16/21 08:26 Consult to Cardiology Routine Consulting Provider: Bhupendra Germain Reason for consultation: SVT 4-6:30 this am, DS: Diagnosis Discharge Diagnosis (1) Acute exacerbation of chronic obstructive airways disease: Status: Acute (2) Congestive heart failure: Status: Acute (3) Acute on chronic respiratory failure with hypoxemia: Status: Acute DS: Summary Hospital Course Hospital Course: From admission history and physical, 02/15/21: Ms Romero is a 60 year-old woman with steroid-dependent COPD, chronic hypoxic respiratory failure on 3L O2 via NC, chronic HFrEF [30-35% Jun 2020], KELLIE nonadherent with CPAP, DM2, HTN, and tobacco abuse who presents with 2 days of worsening dyspnea, particularly with exertion, and cough productive of white sputum.? She endorses wheezing.? Denies fever.? No sick contacts; she lives alone.? No chest pain.? Denies leg edema. EMS was called and she was noted to be hypoxic with SaO2 in the low 80s, requiring 6L of O2 to maintain normoxemia. ? She was given magnesium, methylprednisolone, albuterol, and furosemide.? ? CXR showed bibasilar infiltrates and she was given ceftriaxone.? She was switched to a Venti mask with FiO2 40% and has SaO2 of 93% at the time of my evaluation. This 60 year-old woman with COPD, chronic hypoxic respiratory failure on 3L O2 via NC, chronic HFrEF [30-35%], KELLIE nonadherent with CPAP, DM2, HTN, and tobacco abuse presented with dyspnea and hypoxia. She was admitted to the [facility] for COPD exacerbation + pneumonia and also a CHF exacerbation. Hospital course by problem: # acute/chronic hypoxic respiratory failure Oxygen support was weaned down 2 to 3 L via nasal cannula and presently sating 96% # acute/chronic HFrEF due to non-schemic cardiomyopathy/uncontrolled hypertension Diuresed with IV furosemide. Cardiology was consulted. Echocardiogram showed LVEF 30-35%, similar to prior in June. Neurohormonal modulation was optimized with increased losartan dosage, spironolactone and carvedilol initiation. She was discharged with furosemide increased to 40 mg daily plus losartan, spironolactone, carvedilol, and Imdur,. She needs close outpatient Cardiology follow-up and would be a candidate for a CardioMEMS device. # SVT This was brief. She was started on beta-coco as above. # COPD exacerbation She was given IV steroids and discharged on a prednisone taper. # pneumonia Initially treated with doxycycline and ceftriaxone. Respiratory virus panel was negative, blood culture was negative, and PCT was low. However, she had an aspiration event, so was switched to ampicillin/sulbactam. She was discharged on amoxicillin/clavulanate. # aspiration Seen by VACATION SALES ADVISOR and cleared for NDD2 [ground/mechanical soft] diet. # lactic acidosis Not due to sepsis. Likely bronchdilator effect. # iron deficiency anemia Started on oral repletion. She is being discharged to SNF for inpatient pulmonary rehabilitation. She will need labs in 1 week (BNP, BMP, magnesium) and follow up with Cardiology in 2 weeks. Time Spent with Patient Time attestation: Total time spent providing and/or coordinating discharge services: Discharge coordination time: Greater than 30 minutes Quality: Stroke Does the patient have a stroke diagnosis?: No Physical Exam Vital Signs: Vital Signs: Last Vital Signs Temp 97.7 F 02/20/21 15:37 Pulse 85 02/20/21 15:37 Resp 20 02/20/21 15:37 BP 163/88 H 02/20/21 15:37 Pulse Ox 96 02/20/21 15:37 Oxygen Flow Rate 3 02/15/21 13:47 Body Mass Index 33.3 Gen: NAD on 4L O2 via NC HEENT: sclera anicteric, moist mucus membranes Neck: supple, JVD present Lungs: diminished bilaterally Heart: regular rate and rhythm, no murmurs Abd: soft, non-tender, non-distended, obese Ext: no edema Skin: warm/well-perfused Neuro: alert and oriented x3, no focal findings Psych: appropriate affect DS: Data Data Completed and Pending Completed studies during hospitalization [Text1]: Procedures Assistance with Respiratory Ventilation, Less than 24 Consecutive Hours, Continuous Positive Airway Pressure (07/27/20) Labs on day of discharge: Laboratory Results - last 24 hr 02/19/21 02/19/21 02/20/21 15:56 19:50 07:26 POC Glucose 106 115 82 02/20/21 11:17 POC Glucose 91 Preliminary micro results at discharge 02/15/21 16:22 Blood Culture - Preliminary Blood - Venous No growth after 48 hours. 02/15/21 15:30 Blood Culture - Preliminary Blood - Venous No growth after 48 hours. Discharge Plan Discharge Anticipated Discharge Date/Time: 02/20/21 15:48 Patient Disposition: Xfer SNF Discharge Diagnosis: COPD exacerbation, CHF exacerbation, pneumonia, aspiration, tobacco abuse Referrals: Analisa Carr MD [Primary Care Provider] - 1 Week Buhpendra Germain MD [Physician] - 2 Weeks Discharge Medications: New amoxicillin 875 mg tablet 875 mg PO BID Qty: 10 RF: 0 nicotine (polacrilex) 2 mg Gum 2 mg buccal Q1H PRN (Reason: nicotine crav) Qty: 100 RF: 0 losartan 50 mg Tablet 100 mg PO DAILY Qty: 30 RF: 0 amlodipine 5 mg Tablet 5 mg PO DAILY Qty: 30 RF: 0 spironolactone 25 mg Tablet 25 mg PO DAILY Qty: 30 RF: 0 carvedilol 3.125 mg Tablet 6.25 mg PO BID Qty: 60 RF: 0 ferrous sulfate 324 mg (65 mg iron) Tablet,Delayed Release (Dr/Ec) 324 mg PO DAILY Qty: 30 RF: 0 prednisone 10 mg tablet See Rx Instructions .ROUTE .COMPLEX Qty: 21 RF: 0 furosemide 40 mg tablet 40 mg PO BID Qty: 60 RF: 0 Continued montelukast 10 mg tablet 10 mg PO BEDTIME Qty: 30 RF: 11 isosorbide mononitrate 30 mg tablet extended release 24 hr 30 mg PO DAILY 90 Days Qty: 90 RF: 3 Spiriva with HandiHaler 18 mcg capsule, w/inhalation device 1 cap inhalation DAILY 30 Days Qty: 30 RF: 5 sertraline 100 mg tablet 200 mg PO DAILY 90 Days Qty: 180 RF: 1 quetiapine 50 mg tablet 50 mg PO BID 90 Days Qty: 180 RF: 1 omeprazole 20 mg capsule,delayed release(DR/EC) 20 mg PO DAILY 30 Days Qty: 30 RF: 1 trazodone 50 mg tablet 100 mg PO BEDTIME PRN (Reason: Sleep) RF: 0 folic acid 1 mg Tablet 1 mg PO DAILY Qty: 90 RF: 4 ipratropium-albuterol 0.5 mg-3 mg(2.5 mg base)/3 mL solution for nebulization 3 ml inhalation QID PRN (Reason: Shortness Of Breath) RF: 0 Discontinued losartan 50 mg tablet 50 mg PO DAILY 90 Days Qty: 90 RF: 3 prednisone 5 mg tablet 5 mg PO DAILY 30 Days Qty: 30 RF: 1 furosemide [Lasix] 40 mg tablet 40 mg PO DAILY Qty: 30 RF: 0 Discharge Orders: Discharge Order (Routine); Ordered 02/19/21 Ordered By: Ashutosh Card Diet: diabetic diet and low salt diet Activity on Discharge: As tolerated Stand Alone Forms: Patient Portal Discharge page Other Ambulatory Orders: Basic Metabolic Panel (Routine) Timeframe: 1 Week Facility: [facility] - Location: Laboratory Ordered By: Ashutosh Card B Type Natriuretic Peptide (Routine) Timeframe: 1 Week Facility: [facility] - Location: Laboratory Ordered By: Ashutosh Card Magnesium (Routine) Timeframe: 1 Week Facility: [facility] - Location: Laboratory Ordered By: Ashutosh Card Activity Restrictions/Additional Instructions: ground/mechanical diet [NDD2] Care Plan Goals: cardiopulmonary health Health Concerns: COPD exacerbation, CHF exacerbation, pneumonia, aspiration, tobacco abuse Plan of Treatment: COPD: take prednisone 40 mg daily x 2 days, then 30 mg daily x 2 days, then 20 mg daily x 2 days, then 10 mg daily x 2 days, then 5 mg daily x 2 days. Quit smoking; use nicotine gum to help. CHF/hypertension: increase furosemide to 40 mg twice daily. start spironolactone 25 mg once daily. start carvedilol 6.25 mg twice daily. start amlodipine 5 mg once daily. increase losartan to 100 mg once daily. continue Imdur 30 mg daily. check labs in 1 week: BMP, BNP, magnesium. anemia: take ferrous sulfate 324 mg once daily pneumonia/aspiration: take amoxicillin/clavulanate 875/125 mg twice daily for 5 days. follow a ground/mechanical (NDD2) solids diet. Assessment: see Discharge Summary Patient Instructions: Heart Failure (DC), COPD (Chronic Obstructive Pulmonary Disease) (DC), Pneumonia (DC), Level 2 National Dysphagia Diet (DC)
[2021-02-20 16:53] LABS: Glucose, Whole Blood 128 mg/dL (60-115)
== END 2021-02-20 17:30 | disposition skilled nursing facility (03) | DRG 194 ==
LOC: HO.ED 17:49 → HO.EDOVER 18:39 → HO.IMC 02-16 14:52
PROVIDERS: Physician Assistant Medical; Admitting Provider Family Medicine; Emergency Provider Emergency Medicine Emergency Medical Services; PCP Internal Medicine; Visit Provider Internal Medicine
DX: I11.0 Hypertensive heart disease with heart failure (principal); J96.21 Acute and chronic respiratory failure with hypoxia; J18.9 Pneumonia, unspecified organism; E87.2 Acidosis; I42.8 Other cardiomyopathies; E11.9 Type 2 diabetes mellitus without complications; D50.9 Iron deficiency anemia, unspecified; I50.33 Acute on chronic diastolic (congestive) heart failure; J44.0 Chronic obstructive pulmonary disease with (acute) lower respiratory infection; F17.210 Nicotine dependence, cigarettes, uncomplicated; G47.33 Obstructive sleep apnea (adult) (pediatric); J44.1 Chronic obstructive pulmonary disease with (acute) exacerbation; F39 Unspecified mood [affective] disorder; I47.1 Supraventricular tachycardia; I34.0 Nonrheumatic mitral (valve) insufficiency; Z20.822 Contact with and (suspected) exposure to COVID-19; Z71.6 Tobacco abuse counseling; Z99.89 Dependence on other enabling machines and devices; Z91.19 Patient's noncompliance with other medical treatment and regimen; Z79.899 Other long term (current) drug therapy
CPT/HCPCS: 0241U; 36415; 71045; 80048; 80053; 81003; 82248; 82728; 82803; 82947; 83540; 83605; 83735; 83880; 84145; 84484; 85025; 85027; 87040; 87633; 87635; 92610; 93005; 93306; 94640; 94644; 96361; 96365; 96367; 96375; 97116; 97163; 97530; 99285; 99291; J0295; J0696; J1650; J1940; J2270; J2920; J2930; J3475

== ENCOUNTER 2021-03-30 10:25 | Inpatient (IN) | payer OTHER, SELFPAY ==
[2021-03-30] VITALS (23 sets, daily range): BP systolic 134–197; BP diastolic 87–125; PULSE 83–101; RESP 12–24; TEMP 36.6–36.8; O2SAT 85–98; BMI 29.8
--- NOTE | ~2021-03-30 | XR_ITS ---
EXAMINATION: XR CHEST CLINICAL INFORMATION: SOB COMPARISON: Chest 02/15/2021 TECHNIQUE: Frontal view of the chest was obtained. FINDINGS: The lungs are well-expanded with patchy opacity seen in both lung bases. Heart size is enlarged. Pulmonary vascularity is normal. No gross bony abnormality. XR/XR chest 1V IMPRESSION: Mild bibasilar atelectatic changes.
--- NOTE | ~2021-03-30 | CT_ITS ---
EXAMINATION: CT ANGIOGRAM OF THE CHEST WITH AND WITHOUT CONTRAST (CT PULMONARY ANGIOGRAM FOR PE) CLINICAL INFORMATION: Shortness of breath. Evaluate for PE. COMPARISON: Chest radiograph done earlier today at 1:[address] lumbar spine dated from 04/30/2020. TECHNIQUE: Prior to contrast administration, noncontrast localization images were obtained. Subsequently, multidetector volumetric imaging was performed from the thoracic inlet to below the diaphragms following the administration of 65 mL Omnipaque 350 intravenous contrast. No contrast reaction reported Sagittal, coronal, and MIP oblique sagittal reformatted images were obtained on the CT workstation, uploaded to PACS, and reviewed. This CT examination was performed using dose optimization techniques as appropriate, variously including the following: *Automated exposure control *Adjustment of mA and/or kV according to patient size (this includes techniques or standardized protocols for targeted exams where dose is matched to indication/reason for exam; i.e. extremities or head) *Use of iterative reconstruction technique Total exam dose-length product 336 mGy-cm FINDINGS: QUALITY OF STUDY/CONTRAST BOLUS: Satisfactory. PULMONARY ARTERIES: No central or segmental pulmonary emboli. The pulmonary arteries are enlarged. Specifically, the main pulmonary trunk measures up to 4 cm, the right main pulmonary artery measures 3.1 cm and the left main pulmonary artery measures up to 2.8 cm. These findings indicate the possibility of pulmonary hypertension. THORACIC AORTA: Scattered atherosclerotic disease. No aneurysm or dissection. LUNG: There are centrilobular and paraseptal emphysematous changes, more prominent in the right upper lobe. There is mild bronchial wall thickening and mosaic attenuation of the lung parenchyma, more noticeable in the lower lobes. There are subsegmental atelectasis without focal consolidation. The central airways are patent. Evaluation of pulmonary nodule is somewhat limited due to motion and background of emphysematous changes. Although, accounting for these limitations, no definite suspicious pulmonary nodules or masses are identified. PLEURA: Trace amount of bilateral pleural fluid. No pneumothorax. MEDIASTINUM: Right internal jugular central venous catheter terminates at the level of the cavoatrial junction. The cardiac silhouette is enlarged. There is trace amount of pericardial fluid. No mediastinal or hilar lymphadenopathy. Coronary calcifications. No evidence of septal bowing. There is mild reflux of contrast into the intrahepatic veins. CHEST WALL/AXILLA: No axillary or internal mammary lymphadenopathy. OSSEOUS STRUCTURES: Evaluation for fractures is suboptimal due to motion. Specifically, the ribs and sternum are greatly degraded by motion. A compression deformity at L1 is significantly progressed when compared to the CT from 2020 with no approximately 0.4 cm of retropulsion into the thecal sac. Hemangiomas are noted at T8 and T9. UPPER ABDOMEN: Partially visualized left renal cyst measuring up to 2.9 cm and measuring simple fluid in attenuation. Mild reflux of contrast into the hepatic veins to suggest elevated right heart pressures. CT/CT angio chest PE protocol IMPRESSION: No evidence of pulmonary emboli. Enlargement of the pulmonary arteries and cardiomegaly suggesting pulmonary hypertension. There is also reflux of contrast into the hepatic veins suggesting increased right-sided heart pressures. If indicated, correlate with a bedside echocardiogram. Emphysematous changes with bronchial wall thickening and mosaic attenuation of the lung parenchyma raising the possibility of an atypical infectious or inflammatory process of the small airways such as bronchitis leading to mild air trapping. No focal consolidation. Trace amount of bilateral pleural fluid. Progression of a compression deformity at L1 with new mild retropulsion into the thecal sac. Correlate for tenderness at this site and if indicated, consider further evaluation with an MR of the lumbar spine. VTE: negative
--- NOTE | ~2021-03-30 | XR_ITS ---
EXAMINATION: XR CHEST CLINICAL INFORMATION: Central line placement. COMPARISON: Chest radiograph done earlier today at 1:37 PM. TECHNIQUE: AP view of the chest was obtained. FINDINGS: Right internal jugular central venous catheter terminating over the cavoatrial junction. No postprocedural pneumothorax. Unchanged prominence of the cardiomediastinal silhouette. Again noted interstitial opacities in the lung bases without large pleural effusions. No acute osseous findings. XR/XR chest 1V IMPRESSION: Right internal jugular venous catheter terminates over the cavoatrial junction. No pneumothorax. Stable interstitial opacities in the lung bases.
--- NOTE | 2021-03-30 11:10 | ECG_ITS ---
Test Reason : DYSPNEA Blood Pressure : / mmHG Vent. Rate : 082 BPM Atrial Rate : 082 BPM P-R Int : 118 ms QRS Dur : 118 ms QT Int : 438 ms P-R-T Axes : 027 028 004 degrees QTc Int : 511 ms Normal sinus rhythm Incomplete right bundle branch block Abnormal ECG When compared with ECG of 16-FEB-2021 04:30, Vent. rate has decreased BY [address] no longer depressed in Inferior leads ST no longer depressed in Anterior leads T wave inversion less evident in Inferior leads T wave inversion no longer evident in Anterior leads Referred By: Perla Oconnell Electronically Signed By:REGINALD DOBBS MD
--- NOTE | 2021-03-30 11:13 | ED_ITS ---
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 No chest pain, fevers, chills, leg swelling or pain. Has not received a COVID vaccine. Received DuoNeb from EMS. <Perla Oconnell NP - Last Filed: 03/30/21 18:39> MD elicited complaint: shortness of breath and cough <Perla Oconnell NP - Last Filed: 03/30/21 18:39> Pertinent past history: COPD and congestive heart failure <Perla Oconnell NP - Last Filed: 03/30/21 18:39> Onset (ago): day(s) <Perla Oconnell NP - Last Filed: 03/30/21 18:39> Related Data Home Medications: Home Medications Medication Instructions Recorded Confirmed trazodone 50 mg tablet 100 mg PO BEDTIME PRN 03/08/20 03/30/21 ipratropium 0.5 mg-albuterol 3 mg 3 ml INHALATION QID PRN 02/15/21 03/30/21 (2.5 mg base)/3 mL nebulization soln ipratropium 20 mcg-albuterol 100 1 puff INHALATION QID 03/30/21 03/30/21 mcg/actuation mist for inhalation (Combivent Respimat) nicotine 10 mg inhalation 1 inh INHALATION Q2H PRN 03/30/21 03/30/21 cartridge (Nicotrol) prednisone 5 mg tablet 1 tab PO DAILY 03/30/21 03/30/21 Previous Rx's Medication Instructions Recorded folic acid 1 mg tablet 1 mg PO DAILY #90 tab 07/26/20 montelukast 10 mg tablet 10 mg PO BEDTIME #30 tab 08/27/20 isosorbide mononitrate 30 mg 30 mg PO DAILY 90 Days #90 tab 12/18/20 tablet,extended release 24 hr quetiapine 50 mg tablet 50 mg PO BID 90 Days #180 tab 12/18/20 sertraline 100 mg tablet 200 mg PO DAILY 90 Days #180 tab 12/18/20 tiotropium bromide 18 mcg capsule 1 cap INHALATION DAILY 30 Days #30 12/18/20 with inhalation device (Spiriva inh with HandiHaler) omeprazole 20 mg capsule,delayed 20 mg PO DAILY 30 Days #30 cap 01/07/21 release amlodipine 5 mg tablet 5 mg PO DAILY #30 tab 02/19/21 carvedilol 3.125 mg tablet 6.25 mg PO BID #60 tab 02/19/21 losartan 50 mg tablet 100 mg PO DAILY #30 tab 02/19/21 spironolactone 25 mg tablet 25 mg PO DAILY #30 tab 02/19/21 furosemide 40 mg tablet 40 mg PO DAILY #30 tab 02/24/21 meclizine 25 mg tablet 25 mg PO TID PRN 30 Days #90 tab 03/26/21 <Perla Oconnell NP - Last Filed: 03/30/21 18:39> Allergies/Adverse Reactions: Allergies Allergy/AdvReac Type Severity Reaction Status Date / Time nicotine [Nicotine] Allergy Mild ITCHING Verified 03/18/21 10:25 WITH THE PATCHES topiramate Allergy Mild inadequealte Verified 03/18/21 10:25 response <Perla Oconnell NP - Last Filed: 03/30/21 18:39> Review of Systems Review of Systems: Yes all other systems are reviewed and are negative <Perla Oconnell NP - Last Filed: 03/30/21 18:39> Constitutional: Constitutional: Reports no additional constitutional compl aints, Denies body ache(s), Denies chills, Denies fever(s), Denies headache(s) and Denies weakness <Perla Oconnell NP - Last Filed: 03/30/21 18:39> Eyes: Eyes: Reports no additional eye complaints and Denies change in vision <Perla Oconnell NP - Last Filed: 03/30/21 18:39> ENT: Reports system reviewed and no additional complaints, except as documented, Denies dizziness, Denies headache(s), Denies nasal congestion, Denies nasal discharge and Denies neck pain <Perla Oconnell NP - Last Filed: 03/30/21 18:39> Cardiovascular: Cardiovascular: Reports no additional cardiovascular complaints, Denies chest pain, Denies leg edema and Reports dyspnea <Perla Oconnell NP - Last Filed: 03/30/21 18:39> Respiratory: Respiratory: Reports no additional respiratory complaints, Reports cough and Reports dyspnea <Perla Oconnell NP - Last Filed: 03/30/21 18:39> Gastrointestinal: Gastrointestinal: Reports no additional gastrointestinal complaints, Denies abdominal pain, Denies diarrhea, Denies nausea and Denies vomiting <Perla Oconnell NP - Last Filed: 03/30/21 18:39> Genitourinary: Genitourinary: Reports no additional female genitourinary complaints and Denies urinary incontinence <Perla Oconnell NP - Last Omer ed: 03/30/21 18:39> Musculoskeletal: Musculoskeletal: Reports no additional musculoskeletal complaints, Denies back pain, Denies arthralgias, Denies joint swelling, Denies neck pain, Denies numbness and Denies tingling <Perla Oconnell NP - Last Filed: 03/30/21 18:39> Integumentary/Breasts: Skin/Breast: Reports system reviewed and no additional complaints, except as docu and Denies rash <Perla Oconnell NP - Last Filed: 03/30/21 18:39> Neurologic: Reports system reviewed and no additional complaints, except as documented, Denies Abnormal speech present, Denies dizziness, Denies headache(s) , Denies numbness, Denies tingling and Denies weakness <Perla Oconnell NP - Last Filed: 03/30/21 18:39> [facility] Past Medical History Attestation statement: The following information was validated with the patient. <Perla Oconnell NP - Last Filed: 03/30/21 18:39> Source: old records reviewed and nursing notes reviewed <Perla Oconnell NP - Last Filed: 03/30/21 18:39> Medical History: Medical History Acute and chronic respiratory failure with hypoxia Acute exacerbation of chronic obstructive airways disease Acute exacerbation of chronic obstructive pulmonary disease Acute on chronic respiratory failure with hypoxemia Acute on chronic respiratory failure with hypoxemia Anemia Anxiety Cardiomyopathy CHF (congestive heart failure) Chronic respiratory failure Community acquired pneumonia Congestive heart failure Congestive heart failure COPD (chronic obstructive pulmonary disease) COPD exacerbation Depression Diabetes Essential hypertension Essential hypertension HFrEF (heart failure with reduced ejection fraction) HLD (hyperlipidemia) HTN (hypertension) Hypertension Low back pain Mitral regurgitation Non-rheumatic mitral regurgitation Normocytic anemia KELLIE (obstructive sleep apnea) Osteoporosis Postmenopausal Respiratory failure, acute Severe chronic obstructive pulmonary disease Supplemental oxygen dependent Tobacco abuse <ePrla Oconnell NP - Last Filed: 03/30/21 18:39> Surgical History: Surgical History Bilateral ankle fractures History of total abdominal hysterectomy <Perla Oconnell NP - Last Filed: 03/30/21 18:39> Family History Family History: Family History Father No problems noted. Mother Liver cancer Hypertension <Perla Oconnell NP - Last Filed: 03/30/21 18:39> Social History Social History: Social History Household Members: None Housing: Apartment Do you presently have visiting nurse or other home services: No Alcohol intake: unknown Patient Tobacco Use Status: Current everyday Tobacco user Tobacco use type: Cigarette Cigarette Packs Per Day: 1 Cigarettes Per Day: 5 Second Hand Smoke Exposure: No Use of substances other than those prescribed or required for medical reasons: No Advance Directives: Yes Advance Directives on File: Yes Advance Directives Date on File: 04/30/20 Patient : No service: No Current occupational status: unemployed, retired and disabled <Peral Oconnell NP - Last Filed: 03/30/21 18:39> Physical Exam Vital Signs: Vital Signs: Last Vital Signs Temp 98.3 F 03/30/21 10:40 Pulse 90 03/30/21 22:28 Resp 16 03/30/21 22:53 BP 141/87 H 03/30/21 22:28 Pulse Ox 92 03/30/21 21:37 Oxygen Flow Rate 4 03/30/21 10:40 Body Mass Index 29.8 <Perla Oconnell NP - Last Filed: 03/30/21 18:39> Vital Signs: Last Vital Signs Temp 98.3 F 03/30/21 10:40 Pulse 90 03/30/21 22:28 Resp 16 03/30/21 22:53 BP 141/87 H 03/30/21 22:28 Pulse Ox 92 03/30/21 21:37 Oxygen Flow Rate 4 03/30/21 10:40 Body Mass Index 29.8 <Phillip Rivers MD - Last Filed: 03/30/21 22:57> Const: General: cooperative, healthy appearing, comfortable and no acute distress <Perla Oconnell NP - Last Filed: 03/30/21 18:39> Orientation/consciousness: patient oriented x3 <Perla Oconnell NP - Last Filed: 03/30/21 18:39> Limitations: no limitations <Perla Oconnell NP - Last Filed: 03/30/21 18:39> HENMT: Head: Yes normal to inspection <Perla Oconnell NP - Last Filed: 03/30/21 18:39> Ears: hearing grossly normal bilaterally <Perla Oconnell NP - Last Filed: 03/30/21 18:39> General nose exam: Normal external nose present <Perla Oconnell NP - Last Filed: 03/30/21 18:39> Face and sinus: Yes normal facial exam <Perla Oconnell NP - Last Filed: 03/30/21 18:39> Mouth: Normal oral and palatal mucosa present <Perla Oconnell NP - Last Filed: 03/30/21 18:39> Throat: Yes posterior oropharynx normal <Perla Oconnell NP - Last Filed: 03/30/21 18:39> Eyes: General: appearance normal, both eyes and all related structures <Perla Oconnell NP - Last Filed: 03/30/21 18:39> Pupils: Equal, round and reactive pupils present <Perla Oconnell NP - Last Filed: 03/30/21 18:39> Neck: Neck: Yes normal visual inspection <Perla Oconnell NP - Last Filed: 03/30/21 18:39> Chest: Chest palpation & inspection: normal inspection of the chest <Perla Oconnell NP - Last Filed: 03/30/21 18:39> Resp: Other: tachypnea on arrival with rate 24 Diminished breath sounds with prolonged expiration sent expiratory wheezing throughout <Perla Oconnell NP - Last Filed: 03/30/21 18:39> Effort & Inspection: normal respiratory effort <Perla Oconnell NP - Last Filed: 03/30/21 18:39> Cardio: Rate: regular rate <Perla Oconnell NP - Last Filed: 03/30/21 18:39> Rhythm: regular rhythm <Perla Oconnell NP - Last Filed: 03/30/21 18:39> Peripheral pulses: Peripheral pulses 2+ throughout <Perla Oconnell NP - Last Filed: 03/30/21 18:39> GI: Inspection: Yes normal to inspection <Perla Oconnell NP - Last Filed: 03/30/21 18:39> Palpation (GI): Soft to palpation and nontender <Perla Oconnell NP - Last Filed: 03/30/21 18:39> Auscultation: normal bowel sounds <Perla Oconnell NP - Last Filed: 03/30/21 18:39> Back/Spine/Pelvis: Thoracic/Lumbar Spine: thoracic and lumbar spine normal to inspection <Perla Oconnell NP - Last Filed: 03/30/21 18:39> Skin: General skin exam: no rashes or lesions noted <Perla Oconnell NP - Last Filed: 03/30/21 18:39> Neuro: General: patient oriented x3, no focal motor deficits and normal sen sation to monofilament <Perla Oconnell NP - Last Filed: 03/30/21 18:39> Cranial nerves: Yes Equal, round and reactive pupils present <Perla Oconnell NP - Last Filed: 03/30/21 18:39> Cognition (Neuro): normal cognition <Perla Oconnell NP - Last Filed: 03/30/21 18:39> Speech: No Abnormal speech present <Perla Oconnell NP - Last Filed: 03/30/21 18:39> Gait exam (Neuro): Normal gait present <Perla Oconnell NP - Last Filed: 03/30/21 18:39> Motor exam (neuro): 5/5 motor strength present throughout <Perla Oconnell NP - Last Filed: 03/30/21 18:39> Extrem: General: Yes normal to inspection, Yes no pedal edema and Yes no calf tenderness <Perla Oconnell NP - Last Filed: 03/30/21 18:39> Course Course Course Narrative: 60 yo female pmhx? COPD on 3L NC, CHF w/ EF 30%, DM2, uncontrolled HTN, KELLIE noncompliant with CPAP, mitral regurgitation, depression/anxiet, current smoker presents to the ed with concerns of shortness of breath, and cough since yesterday. On arrival mild tachypnea, diminished BS, prolonged expirations and wheezing. 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 Will check labs, EKG, CXR, covid screen, give 125mg solumedrol, magnesum 2mg IV. 1245-nursing asked me to place an IV in the patient has she is difficult IV access. They were able to get labs which I reviewed. The patient has a chronic anemia which is unchanged from baseline. She has a mildly elevated troponin however the patient has a chronically elevated troponin at baseline. Her BNP is also elevated. Chest x-ray is pending. Exam is not consistent clinically with fluid overload. When I went in with the ultrasound to place the IV the patient had been brought to the bathroom and back and was in respiratory distress. She was tachypneic, hypoxic despite being on her 3 L of oxygen. Respiratory was called and 10 mg of albuterol was ordered. The patient continued to be tachypneic despite receiving albuterol fall and was diaphoretic and hypoxic therefore she was placed on BiPAP 12/6 at 40%. Multiple attempts by myself and Dr Chapman to place PIV access including EJ and US guided IV. Finally we were able to obtain a peripheral IV and the patient was given solumedrol and magnesium IV. Spent >60 minutes direct at bedside d/t respiratory status, attempting IV access. 1330-Patient is much more comfortable. Pulse oximeter 92% on the BiPAP. Her respiratory rate is now ordered 20. She is resting back much less anxious and tachypneic.. Reports feeling better. 1400-CXR shows mild bibasilar atelectactic changes. Mildly hypertensive. 40mg IV lasix ordered. 1430-Patient continues to require BIPAP for goal saturation 91-92%. Respiratory rate improved. Mildly hypertensive but overall better. Will obtain ABG and d/w with otolaryngology physician. 1600-ABG w/ no CO2 retention, will attempt to wean patient to NC. 1645-Unable to wean off BIPAP d/t hypoxia, increased WOB. Will discuss with otolaryngology physician. 1700-Spoke to Dr Whitaker from ICU. Recommended controlling blood pressure better with nitro tab, paste and IV enalapril. Also low dose morphine for WOB. 1800-Continued hypertension so I spoke to otolaryngology physician again who recommended PO norvasc which was ordered. Requesting removal of BIPAP and morphine for WOB. He will come to see the patient. Signed out to Dr De Souza pending disposition. This was communicated to Dr Whitaker. <Perla Oconnell NP - Last Filed: 03/30/21 18:39> Reevaluation(s) Reevaluation #1: Patient COPD oxygen dependent 3-4 L 24/7 O2 at home comes for increased shortness of breath noticed to have elevated blood pressure which has improved now out of her medications to 146/94 id patient was placed on CPAP for short time now patient is saturating 94% on 5 L will do CTA chest to rule out PE and plan to admit to medical floor <Phillip Rivers MD - Last Filed: 03/30/21 22:57> Time: 19:28 <Phillip Rivers MD - Last Filed: 03/30/21 22:57> Reevaluation #2: Patient blood pressure 142/84 saturating 86% on 55% ventimask, CTA chest negative patient was comfortable with start patient on high-flow admit to floor, patient already seen by otolaryngology physician advised to admit patient to the medical floor <Phillip Rivers MD - Last Filed: 03/30/21 22:57> Time: 22:24 <Phillip Rivers MD - Last Filed: 03/30/21 22:57> Reevaluation #3: Patient placed on high-flow saturating 94% waiting for admission <Phillip Rivers MD - Last Filed: 03/30/21 22:57> Time: 22:57 <Phillip Rivers MD - Last Filed: 03/30/21 22:57> MDM - SOB/Dyspnea Medical Records Attestation: I reviewed the patient's medical records. <Perla Oconnell NP - Last Filed: 03/30/21 18:39> Lab Data Attestation: I reviewed the patient's lab results. <Perla Oconnell NP - Last Filed: 03/30/21 18:39> Result diagrams: : 03/30/21 11:10 03/30/21 11:10 <Perla Oconnell NP - Last Filed: 03/30/21 18:39> Labs: Lab Results 03/30/21 03/30/21 03/30/21 Range/Units 11:10 11:10 11:10 WBC 7.2 (4.8-10.8) X10*3/uL RBC 4.05 L (4.20-5.50) X10*6/uL Hgb 9.5 L (12.0-16.0) g/dl Hct 32.5 L (37.0-47.0) % MCV 80.2 (80.0-98.0) fL MCH 23.5 L (27.0-33.0) pg MCHC 29.2 L (31.0-35.0) g/dl RDW 16.7 H (11.0-16.0) % Plt Count 176 (160-400) X10*3/uL MPV 9.9 (9.4-12.3) fL Immature Gran % (Auto) 0.3 (0.0-0.4) % Neut % (Auto) 76.6 H (45-73) % Lymph % (Auto) 16.8 L (20-40) % [place] % (Auto) 5.7 (2-11) % Eos % (Auto) 0.6 (0-4) % Baso % (Auto) 0.0 (0-2) % Lymph # (Auto) 1.2 (1.2-4.9) X10*3/uL [place] # (Auto) 0.4 (0.1-1.2) X10*3/uL Eos # (Auto) 0.0 (0.0-0.4) X10*3/uL Baso # (Auto) 0.0 (0.0-0.2) X10*3/uL Abs Immat Gran (auto) 0.02 (0.00-0.03) X10*3/uL Absolute Neuts (auto) 5.5 (2.0-8.3) x10*3/uL Absolute Nucleated RBC 0.000 (0.0-0.012) X10*3/uL Nucleated RBC % (auto) 0.0 (0.0-0.2) /100WBC PT 11.6 (9.9-13.0) SEC INR 1.0 (0.9-1.1) O2 Saturation % ABG pH at Pt Temp (7.35-7.45) ABG pH (Temp Correct) (7.35-7.45) ABG pCO2 at Pt Temp (32-45) mmHg ABG pCO2 (Temp Corrct (32-45) mmHg ABG pO2 at Pt Temp (83-108) mmHg ABG pO2 (Temp Correct (83-108) ABG HCO3 (22-26) mmol/L ABG Base Excess (Actual) mmol/L Sodium 140 (135-145) mmol/L Potassium 3.8 (3.3-5.1) mmol/L Chloride 104 (96-108) mmol/L Carbon Dioxide 28 (22-29) mmol/L Anion Gap 12 (12-20) BUN 7 L D (9-16) mg/dL Creatinine 0.75 (0.5-1.4) mg/dL Estim Creat Clear Calc 73.1 Estimated GFR > 60 Random Glucose 106 (60-115) mg/dL Lactic Acid (0.5-2.0) mmol/L Calcium 8.9 D (8.4-10.2) mg/dL Magnesium 2.1 (1.6-2.6) mg/dL Total Bilirubin 0.3 (0.0-1.0) mg/dL Direct Bilirubin < 0.2 (0.0-0.5) mg/dL AST 13 D (5-31) U/L ALT 9 (0-31) U/L Alkaline Phosphatase 140 H (39-117) U/L Troponin I High Sens (<3.5-17.0) ng/L B-Natriuretic Peptide (<100) pg/mL Total Protein 6.9 (6.5-8.0) g/dL Albumin 3.8 (3.5-5.0) g/dL COVID-19 (ANEL) (Negative) COVID-19 Clin Com 03/30/21 03/30/21 03/30/21 Range/Units 11:10 11:10 11:10 WBC (4.8-10.8) X10*3/uL RBC (4.20-5.50) X10*6/uL Hgb (12.0-16.0) g/dl Hct (37.0-47.0) % MCV (80.0-98.0) fL MCH (27.0-33.0) pg MCHC (31.0-35.0) g/dl RDW (11.0-16.0) % Plt Count (160-400) X10*3/uL MPV (9.4-12.3) fL Immature Gran % (Auto) (0.0-0.4) % Neut % (Auto) (45-73) % Lymph % (Auto) (20-40) % [place] % (Auto) (2-11) % Eos % (Auto) (0-4) % Baso % (Auto) (0-2) % Lymph # (Auto) (1.2-4.9) X10*3/uL [place] # (Auto) (0.1-1.2) X10*3/uL Eos # (Auto) (0.0-0.4) X10*3/uL Baso # (Auto) (0.0-0.2) X10*3/uL Abs Immat Gran (auto) (0.00-0.03) X10*3/uL Absolute Neuts (auto) (2.0-8.3) x10*3/uL Absolute Nucleated RBC (0.0-0.012) X10*3/uL Nucleated RBC % (auto) (0.0-0.2) /100WBC PT (9.9-13.0) SEC INR (0.9-1.1) O2 Saturation % ABG pH at Pt Temp (7.35-7.45) ABG pH (Temp Correct) (7.35-7.45) ABG pCO2 at Pt Temp (32-45) mmHg ABG pCO2 (Temp Corrct (32-45) mmHg ABG pO2 at Pt Temp (83-108) mmHg ABG pO2 (Temp Correct (83-108) ABG HCO3 (22-26) mmol/L ABG Base Excess (Actual) mmol/L Sodium (135-145) mmol/L Potassium (3.3-5.1) mmol/L Chloride (96-108) mmol/L Carbon Dioxide (22-29) mmol/L Anion Gap (12-20) BUN (9-16) mg/dL Creatinine (0.5-1.4) mg/dL Estim Creat Clear Calc Estimated GFR Random Glucose (60-115) mg/dL Lactic Acid 0.8 (0.5-2.0) mmol/L Calcium (8.4-10.2) mg/dL Magnesium (1.6-2.6) mg/dL Total Bilirubin (0.0-1.0) mg/dL Direct Bilirubin (0.0-0.5) mg/dL AST (5-31) U/L ALT (0-31) U/L Alkaline Phosphatase (39-117) U/L Troponin I High Sens 20.2 H* (<3.5-17.0) ng/L B-Natriuretic Peptide (<100) pg/mL Total Protein (6.5-8.0) g/dL Albumin (3.5-5.0) g/dL COVID-19 (ANEL) Negative (Negative) COVID-19 Clin Com See Note 03/30/21 03/30/21 Range/Units 11:10 15:41 WBC (4.8-10.8) X10*3/uL RBC (4.20-5.50) X10*6/uL Hgb (12.0-16.0) g/dl Hct (37.0-47.0) % MCV (80.0-98.0) fL MCH (27.0-33.0) pg MCHC (31.0-35.0) g/dl RDW (11.0-16.0) % Plt Count (160-400) X10*3/uL MPV (9.4-12.3) fL Immature Gran % (Auto) (0.0-0.4) % Neut % (Auto) (45-73) % Lymph % (Auto) (20-40) % [place] % (Auto) (2-11) % Eos % (Auto) (0-4) % Baso % (Auto) (0-2) % Lymph # (Auto) (1.2-4.9) X10*3/uL [place] # (Auto) (0.1-1.2) X10*3/uL Eos # (Auto) (0.0-0.4) X10*3/uL Baso # (Auto) (0.0-0.2) X10*3/uL Abs Immat Gran (auto) (0.00-0.03) X10*3/uL Absolute Neuts (auto) (2.0-8.3) x10*3/uL Absolute Nucleated RBC (0.0-0.012) X10*3/uL Nucleated RBC % (auto) (0.0-0.2) /100WBC PT (9.9-13.0) SEC INR (0.9-1.1) O2 Saturation 89.0 % ABG pH at Pt Temp 7.47 H (7.35-7.45) ABG pH (Temp Correct) 7.47 H (7.35-7.45) ABG pCO2 at Pt Temp 45 (32-45) mmHg ABG pCO2 (Temp Corrct 45 (32-45) mmHg ABG pO2 at Pt Temp 62 L (83-108) mmHg ABG pO2 (Temp Correct 61 L (83-108) ABG HCO3 33 H (22-26) mmol/L ABG Base Excess (Actual) 8.9 mmol/L Sodium (135-145) mmol/L Potassium (3.3-5.1) mmol/L Chloride (96-108) mmol/L Carbon Dioxide (22-29) mmol/L Anion Gap (12-20) BUN (9-16) mg/dL Creatinine (0.5-1.4) mg/dL Estim Creat Clear Calc Estimated GFR Random Glucose (60-115) mg/dL Lactic Acid (0.5-2.0) mmol/L Calcium (8.4-10.2) mg/dL Magnesium (1.6-2.6) mg/dL Total Bilirubin (0.0-1.0) mg/dL Direct Bilirubin (0.0-0.5) mg/dL AST (5-31) U/L ALT (0-31) U/L Alkaline Phosphatase (39-117) U/L Troponin I High Sens (<3.5-17.0) ng/L B-Natriuretic Peptide 444 H (<100) pg/mL Total Protein (6.5-8.0) g/dL Albumin (3.5-5.0) g/dL COVID-19 (ANEL) (Negative) COVID-19 Clin Com <Perla Oconnell, ASSISTANT PRODUCT MANAGER - Last Filed: 03/30/21 18:39> Lab Results 03/30/21 03/30/21 03/30/21 Range/Units 11:10 11:10 11:10 WBC 7.2 (4.8-10.8) X10*3/uL RBC 4.05 L (4.20-5.50) X10*6/uL Hgb 9.5 L (12.0-16.0) g/dl Hct 32.5 L (37.0-47.0) % MCV 80.2 (80.0-98.0) fL MCH 23.5 L (27.0-33.0) pg MCHC 29.2 L (31.0-35.0) g/dl RDW 16.7 H (11.0-16.0) % Plt Count 176 (160-400) X10*3/uL MPV 9.9 (9.4-12.3) fL Immature Gran % (Auto) 0.3 (0.0-0.4) % Neut % (Auto) 76.6 H (45-73) % Lymph % (Auto) 16.8 L (20-40) % [place] % (Auto) 5.7 (2-11) % Eos % (Auto) 0.6 (0-4) % Baso % (Auto) 0.0 (0-2) % Lymph # (Auto) 1.2 (1.2-4.9) X10*3/uL [place] # (Auto) 0.4 (0.1-1.2) X10*3/uL Eos # (Auto) 0.0 (0.0-0.4) X10*3/uL Baso # (Auto) 0.0 (0.0-0.2) X10*3/uL Abs Immat Gran (auto) 0.02 (0.00-0.03) X10*3/uL Absolute Neuts (auto) 5.5 (2.0-8.3) x10*3/uL Absolute Nucleated RBC 0.000 (0.0-0.012) X10*3/uL Nucleated RBC % (auto) 0.0 (0.0-0.2) /100WBC PT 11.6 (9.9-13.0) SEC INR 1.0 (0.9-1.1) O2 Saturation % ABG pH at Pt Temp (7.35-7.45) ABG pH (Temp Correct) (7.35-7.45) ABG pCO2 at Pt Temp (32-45) mmHg ABG pCO2 (Temp Corrct (32-45) mmHg ABG pO2 at Pt Temp (83-108) mmHg ABG pO2 (Temp Correct (83-108) ABG HCO3 (22-26) mmol/L ABG Base Excess (Actual) mmol/L Sodium 140 (135-145) mmol/L Potassium 3.8 (3.3-5.1) mmol/L Chloride 104 (96-108) mmol/L Carbon Dioxide 28 (22-29) mmol/L Anion Gap 12 (12-20) BUN 7 L D (9-16) mg/dL Creatinine 0.75 (0.5-1.4) mg/dL Estim Creat Clear Calc 73.1 Estimated GFR > 60 Random Glucose 106 (60-115) mg/dL Lactic Acid (0.5-2.0) mmol/L Calcium 8.9 D (8.4-10.2) mg/dL Magnesium 2.1 (1.6-2.6) mg/dL Total Bilirubin 0.3 (0.0-1.0) mg/dL Direct Bilirubin < 0.2 (0.0-0.5) mg/dL AST 13 D (5-31) U/L ALT 9 (0-31) U/L Alkaline Phosphatase 140 H (39-117) U/L Troponin I High Sens (<3.5-17.0) ng/L B-Natriuretic Peptide (<100) pg/mL Total Protein 6.9 (6.5-8.0) g/dL Albumin 3.8 (3.5-5.0) g/dL COVID-19 (ANEL) (Negative) COVID-19 Clin Com 03/30/21 03/30/21 03/30/21 Range/Units 11:10 11:10 11:10 WBC (4.8-10.8) X10*3/uL RBC (4.20-5.50) X10*6/uL Hgb (12.0-16.0) g/dl Hct (37.0-47.0) % MCV (80.0-98.0) fL MCH (27.0-33.0) pg MCHC (31.0-35.0) g/dl RDW (11.0-16.0) % Plt Count (160-400) X10*3/uL MPV (9.4-12.3) fL Immature Gran % (Auto) (0.0-0.4) % Neut % (Auto) (45-73) % Lymph % (Auto) (20-40) % [place] % (Auto) (2-11) % Eos % (Auto) (0-4) % Baso % (Auto) (0-2) % Lymph # (Auto) (1.2-4.9) X10*3/uL [place] # (Auto) (0.1-1.2) X10*3/uL Eos # (Auto) (0.0-0.4) X10*3/uL Baso # (Auto) (0.0-0.2) X10*3/uL Abs Immat Gran (auto) (0.00-0.03) X10*3/uL Absolute Neuts (auto) (2.0-8.3) x10*3/uL Absolute Nucleated RBC (0.0-0.012) X10*3/uL Nucleated RBC % (auto) (0.0-0.2) /100WBC PT (9.9-13.0) SEC INR (0.9-1.1) O2 Saturation % ABG pH at Pt Temp (7.35-7.45) ABG pH (Temp Correct) (7.35-7.45) ABG pCO2 at Pt Temp (32-45) mmHg ABG pCO2 (Temp Corrct (32-45) mmHg ABG pO2 at Pt Temp (83-108) mmHg ABG pO2 (Temp Correct (83-108) ABG HCO3 (22-26) mmol/L ABG Base Excess (Actual) mmol/L Sodium (135-145) mmol/L Potassium (3.3-5.1) mmol/L Chloride (96-108) mmol/L Carbon Dioxide (22-29) mmol/L Anion Gap (12-20) BUN (9-16) mg/dL Creatinine (0.5-1.4) mg/dL Estim Creat Clear Calc Estimated GFR Random Glucose (60-115) mg/dL Lactic Acid 0.8 (0.5-2.0) mmol/L Calcium (8.4-10.2) mg/dL Magnesium (1.6-2.6) mg/dL Total Bilirubin (0.0-1.0) mg/dL Direct Bilirubin (0.0-0.5) mg/dL AST (5-31) U/L ALT (0-31) U/L Alkaline Phosphatase (39-117) U/L Troponin I High Sens 20.2 H* (<3.5-17.0) ng/L B-Natriuretic Peptide (<100) pg/mL Total Protein (6.5-8.0) g/dL Albumin (3.5-5.0) g/dL COVID-19 (ANEL) Negative (Negative) COVID-19 Clin Com See Note 03/30/21 03/30/21 Range/Units 11:10 15:41 WBC (4.8-10.8) X10*3/uL RBC (4.20-5.50) X10*6/uL Hgb (12.0-16.0) g/dl Hct (37.0-47.0) % MCV (80.0-98.0) fL MCH (27.0-33.0) pg MCHC (31.0-35.0) g/dl RDW (11.0-16.0) % Plt Count (160-400) X10*3/uL MPV (9.4-12.3) fL Immature Gran % (Auto) (0.0-0.4) % Neut % (Auto) (45-73) % Lymph % (Auto) (20-40) % [place] % (Auto) (2-11) % Eos % (Auto) (0-4) % Baso % (Auto) (0-2) % Lymph # (Auto) (1.2-4.9) X10*3/uL [place] # (Auto) (0.1-1.2) X10*3/uL Eos # (Auto) (0.0-0.4) X10*3/uL Baso # (Auto) (0.0-0.2) X10*3/uL Abs Immat Gran (auto) (0.00-0.03) X10*3/uL Absolute Neuts (auto) (2.0-8.3) x10*3/uL Absolute Nucleated RBC (0.0-0.012) X10*3/uL Nucleated RBC % (auto) (0.0-0.2) /100WBC PT (9.9-13.0) SEC INR (0.9-1.1) O2 Saturation 89.0 % ABG pH at Pt Temp 7.47 H (7.35-7.45) ABG pH (Temp Correct) 7.47 H (7.35-7.45) ABG pCO2 at Pt Temp 45 (32-45) mmHg ABG pCO2 (Temp Corrct 45 (32-45) mmHg ABG pO2 at Pt Temp 62 L (83-108) mmHg ABG pO2 (Temp Correct 61 L (83-108) ABG HCO3 33 H (22-26) mmol/L ABG Base Excess (Actual) 8.9 mmol/L Sodium (135-145) mmol/L Potassium (3.3-5.1) mmol/L Chloride (96-108) mmol/L Carbon Dioxide (22-29) mmol/L Anion Gap (12-20) BUN (9-16) mg/dL Creatinine (0.5-1.4) mg/dL Estim Creat Clear Calc Estimated GFR Random Glucose (60-115) mg/dL Lactic Acid (0.5-2.0) mmol/L Calcium (8.4-10.2) mg/dL Magnesium (1.6-2.6) mg/dL Total Bilirubin (0.0-1.0) mg/dL Direct Bilirubin (0.0-0.5) mg/dL AST (5-31) U/L ALT (0-31) U/L Alkaline Phosphatase (39-117) U/L Troponin I High Sens (<3.5-17.0) ng/L B-Natriuretic Peptide 444 H (<100) pg/mL Total Protein (6.5-8.0) g/dL Albumin (3.5-5.0) g/dL COVID-19 (ANEL) (Negative) COVID-19 Clin Com <Phillip Rivers MD - Last Filed: 03/30/21 22:57> Imaging Data Chest x-ray: Attestation: I personally reviewed and interpreted this imaging study as follows: <Perla Oconnell NP - Last Filed: 03/30/21 18:39> Radiologist's impression: [place] [id number] XRay Report Signed Patient: Paola Romero MR#: [id number] : 1960 Acct:[id number] Age/Sex: 60 / F ADM Date: 03/30/21 Loc: HO.ED Attending Dr: Ordering Physician: Perla Oconnell NP Date of Service: 03/30/21 Procedure(s): XR chest 1V Accession Number(s): [id number] cc: Perla Oconnell NP~ EXAMINATION: XR CHEST CLINICAL INFORMATION: SOB COMPARISON: Chest 02/15/2021 TECHNIQUE: Frontal view of the chest was obtained. FINDINGS: The lungs are well-expanded with patchy opacity seen in both lung bases. Heart size is enlarged. Pulmonary vascularity is normal. No gross bony abnormality. XR/XR chest 1V IMPRESSION: Mild bibasilar atelectatic changes. ? <Perla Oconnell NP - Last Filed: 03/30/21 18:39> ECG Data Attestation: I personally reviewed and interpreted this ECG as follows: <Perla Oconnell NP - Last Filed: 03/30/21 18:39> ECG interpretation date: 03/30/21 <Perla Oconnell NP - Last Filed: 03/30/21 18:39> ECG interpretation time: 11:52 <Perla Oconnell NP - Last Filed: 03/30/21 18:39> Interpretation: Normal sinus rhythm with a radiates 2, normal [place], normal QRS, QTC 511 <Perla Oconnell NP - Last Filed: 03/30/21 18:39> Procedures Central Line Placement Right IJ: Time Out Performed: Yes <Phillip Rivers MD - Last Filed: 03/30/21 22:57> Patient Placed on Monitor/Pulse Ox: Yes <Phillip Rivers MD - Last Filed: 03/30/21 22:57> MD Prep: mask, gown and gloves <Phillip Rivers MD - Last Filed: 03/30/21 22:57> Central Line Prep: Povidone-Iodine 1% <Phillip Rivers MD - Last Filed: 03/30/21 22:57> Local Anesthetic: lidocaine 2% <Phillip Rivers MD - Last Filed: 03/30/21 22:57> Amount of anesthesia used (mL): 5 <Phillip Rivers MD - Last Filed: 03/30/21 22:57> Ultrasound Used for Placement: Yes <Phillip Rivers MD - Last Filed: 03/30/21 22:57> Central Line Lumen Inserted: triple <Phillip Rivers MD - Last Filed: 03/30/21 22:57> Post Procedure: sutured in place, good blood return, all ports aspirated, flushed, capped and sterile dressing applied <Phillip Rivers MD - Last Filed: 03/30/21 22:57> Post Procedure X-Ray: tip of catheter in good position <Phillip Rivers MD - Last Filed: 03/30/21 22:57> Patient Tolerated Procedure: well <Phillip Rivers MD - Last Filed: 03/30/21 22:57> Complications: none <Phillip Rivers MD - Last Filed: 03/30/21 22:57> Critical Care Time Critical Care Time Critical Care Time: Yes <Perla Oconnell NP - Last Filed: 03/30/21 18:39> Total Critical Care Time: 90 <Perla Oconnell NP - Last Filed: 03/30/21 18:39> Attestation: multiple re-evaluations, requiring bIPAP, speaking to <Perla Oconnell NP - Last Filed: 03/30/21 18:39> multiple re-evaluations, requiring bIPAP, speaking to otolaryngology physician patient and hospitalist <Phillip Rivers MD - Last Filed: 03/30/21 22:57> Discharge Plan Discharge Clinical Impression: Hypoxia COPD (chronic obstructive pulmonary disease) Qualifiers: COPD type: COPD with acute exacerbation Qualified Code(s): J44.1 - Chronic obstructive pulmonary disease with (acute) exacerbation CHF (congestive heart failure) Qualifiers: Heart failure type: diastolic Heart failure chronicity: chronic Qualified Code(s): I50.32 - Chronic diastolic (congestive) heart failure <Perla Oconnell NP - Last Filed: 03/30/21 18:39> Patient Disposition: Admitted As Inpatient <Perla Oconnell NP - Last Filed: 03/30/21 18:39>
[2021-03-30 11:36] LABS: MANUAL DIFF FLAG NO
[2021-03-30 11:38] LABS: Eosinophils Percent Auto 0.6 % (0-4); Hematocrit 32.5 % (37.0-47.0); Hemoglobin 9.5 g/dl (12.0-16.0); Imm Gran Abs Auto 0.02 X10*3/uL (0.00-0.03); Imm Gran Pct Auto 0.3 % (0.0-0.4); Lymphocytes Absolute Auto 1.2 X10*3/uL (1.2-4.9); Lymphocytes Percent Auto 16.8 % (20-40); Mean Corpuscular HGB Conc 29.2 g/dl (31.0-35.0); Mean Corpuscular Hemoglobin 23.5 pg (27.0-33.0); Mean Corpuscular Volume 80.2 fL (80.0-98.0); Mean Platelet Volume 9.9 fL (9.4-12.3); Monocytes Absolute Auto 0.4 X10*3/uL (0.1-1.2); Monocytes Percent Auto 5.7 % (2-11); Neutrophils Absolute Auto 5.5 x10*3/uL (2.0-8.3); Neutrophils Percent Auto 76.6 % (45-73); Platelet Count 176 X10*3/uL (160-400); Red Blood Count 4.05 X10*6/uL (4.20-5.50); Red Cell Distribution Width 16.7 % (11.0-16.0); White Blood Count 7.2 X10*3/uL (4.8-10.8)
[2021-03-30 11:51] LABS: COVID-19 Test Negative (Negative); Lactic Acid 0.8 mmol/L (0.5-2.0)
[2021-03-30 11:52] LABS: Prothrombin Time 11.6 SEC (9.9-13.0)
[2021-03-30 11:56] LABS: Alanine Aminotransferase 9 U/L (0-31); Albumin Level 3.8 g/dL (3.5-5.0); Alkaline Phosphatase 140 U/L (39-117); Anion Gap 12 (12-20); Aspartate Amino Transferase 13 U/L (5-31); Bilirubin Direct < 0.2 mg/dL (0.0-0.5); Bilirubin Total 0.3 mg/dL (0.0-1.0); Blood Urea Nitrogen 7 mg/dL (9-16); Calcium 8.9 mg/dL (8.4-10.2); Carbon Dioxide 28 mmol/L (22-29); Chloride 104 mmol/L (96-108); Creatinine Clr Calc Pharmacy 73.1; Estimated Glomerular Filt Rate > 60; Glucose Random 106 mg/dL (60-115); Magnesium 2.1 mg/dL (1.6-2.6); Potassium 3.8 mmol/L (3.3-5.1); Sodium 140 mmol/L (135-145); Total Protein 6.9 g/dL (6.5-8.0)
[2021-03-30 12:02] LABS: B Type Natriuretic Peptide 444 pg/mL (<100)
[2021-03-30 12:08] LABS: Troponin-I High Sensitivity 20.2 ng/L (<3.5-17.0)
--- NOTE | 2021-03-30 12:46 | PC.NURSE ---
Unable to establish IV. PA notified who is now at the bedside attempting US guided. Respiratory paged
--- NOTE | 2021-03-30 13:04 | PC.NURSE ---
Pt is now on bipap at 12/6 at 30% with continuous neb treatments. PA is still at the bedside attempting to establish an IV
[2021-03-30] MEDS: Magnesium Sulfate/H2O 2 GM/50 ML PIGGYBACK IV (13:32)
[2021-03-30] MEDS: methylPREDNISolone Sod Succ 125 MG/2 ML VIAL IVPUSH (13:32)
[2021-03-30] MEDS: Albuterol Sulfate (0.083%) 2.5 MG/3 ML VIAL.NEB 10 MG INHALE ×2 (13:43→20:59)
--- NOTE | 2021-03-30 13:45 | PC.NURSE ---
This RN working as float nurse. Patient is on BIPAP at 12/6/40%. Patient is alert and oriented. Primarily bots[place]an speaking. IV established by gordy GARAY. Solumedrol given and magnesium hung. O2 sat 92% at this time. RT at bedside to give breathing treatment. Will continue to monitor.
[2021-03-30] MEDS: Furosemide 40 MG/4 ML VIAL IVPUSH (14:26)
--- NOTE | 2021-03-30 14:47 | PC.NURSE ---
Pt is tolerating the Bipap well and no longer appears to be in respiratory distress. Pt medicated with IV lasix and pure wick is now in place.
[2021-03-30 15:49] LABS: ABG Base Excess 8.9 mmol/L; ABG HCO3 33 mmol/L (22-26); ABG pCO2 45 mmHg (32-45); ABG pCO2 TC 45 mmHg (32-45); ABG pH 7.47 (7.35-7.45); ABG pH TC 7.47 (7.35-7.45); ABG pO2 62 mmHg (83-108); ABG pO2 TC 61 (83-108)
--- NOTE | 2021-03-30 16:03 | PHA.MEDREC ---
Pharmacy Consult ? Medication Reconciliation Pharmacy has completed the medication reconciliation.
--- NOTE | 2021-03-30 16:44 | PC.NURSE ---
Pt taken off bipap and placed on oxygen via NC at 3lpm as a trial. Admitting LDR RN is at the bedside for evaluation.
--- NOTE | 2021-03-30 16:46 | PC.NURSE ---
Pt failed trial off the bipap and quickly desat to 82% on the NC and became increasingly tachypneic. Pt back on bipap and provider is contacting rn gyn regarding ICU admission .
[2021-03-30] MEDS: Morphine Sulfate 2 MG/ML CARTRIDGE IVPUSH ×2 (17:11→20:35)
[2021-03-30] MEDS: Nitroglycerin 2 % Oint 1 GM Packet 2 INCH TRANSDERMA (17:14)
[2021-03-30] MEDS: Nitroglycerin 0.4 MG TAB.SUBL SUBLINGUAL (17:15)
[2021-03-30 18:19] LABS: ABG Refer to POC result
[2021-03-30] MEDS: amLODIPine Besylate 10 MG TABLET PO (18:26)
[2021-03-30] MEDS: Albuterol Sulfate (0.083%) 2.5 MG/3 ML VIAL.NEB 5 MG INHALE (19:27)
--- NOTE | 2021-03-30 19:45 | P.PNCC_ITS ---
Subjective Subjective Date of Service: 03/30/21 Physical Exam Vital Signs: Vital Signs: Last Vital Signs Temp 98.3 F 03/30/21 10:40 Pulse 95 03/30/21 19:27 Resp 20 03/30/21 18:09 BP 186/99 H 03/30/21 18:43 Pulse Ox 85 L 03/30/21 18:43 Oxygen Flow Rate 4 03/30/21 10:40 Body Mass Index 29.8 Objective Data Labs CBC & Chem 7: 03/30/21 11:10 03/30/21 11:10 Labs: Laboratory Results - last 24 hr 03/30/21 03/30/21 03/30/21 11:10 11:10 11:10 WBC 7.2 RBC 4.05 L Hgb 9.5 L Hct 32.5 L MCV 80.2 MCH 23.5 L MCHC 29.2 L RDW 16.7 H Plt Count 176 MPV 9.9 Immature Gran % (Auto) 0.3 Neut % (Auto) 76.6 H Lymph % (Auto) 16.8 L [place] % (Auto) 5.7 Eos % (Auto) 0.6 Baso % (Auto) 0.0 Lymph # (Auto) 1.2 [place] # (Auto) 0.4 Eos # (Auto) 0.0 Baso # (Auto) 0.0 Abs Immat Gran (auto) 0.02 Absolute Neuts (auto) 5.5 Absolute Nucleated RBC 0.000 Nucleated RBC % (auto) 0.0 PT 11.6 INR 1.0 O2 Saturation ABG pH at Pt Temp ABG pH (Temp Correct) ABG pCO2 at Pt Temp ABG pCO2 (Temp Corrct ABG pO2 at Pt Temp ABG pO2 (Temp Correct ABG HCO3 ABG Base Excess (Actual) Sodium 140 Potassium 3.8 Chloride 104 Carbon Dioxide 28 Anion Gap 12 BUN 7 L D Creatinine 0.75 Estim Creat Clear Calc 73.1 Estimated GFR > 60 Random Glucose 106 Lactic Acid Calcium 8.9 D Magnesium 2.1 Total Bilirubin 0.3 Direct Bilirubin < 0.2 AST 13 D ALT 9 Alkaline Phosphatase 140 H Troponin I High Sens B-Natriuretic Peptide Total Protein 6.9 Albumin 3.8 COVID-19 (ANEL) COVID-19 Clin Com 11/27/21 11/27/21 11/27/21 11:10 11:10 11:10 WBC RBC Hgb Hct MCV MCH MCHC RDW Plt Count MPV Immature Gran % (Auto) Neut % (Auto) Lymph % (Auto) [place] % (Auto) Eos % (Auto) Baso % (Auto) Lymph # (Auto) [place] # (Auto) Eos # (Auto) Baso # (Auto) Abs Immat Gran (auto) Absolute Neuts (auto) Absolute Nucleated RBC Nucleated RBC % (auto) PT INR O2 Saturation ABG pH at Pt Temp ABG pH (Temp Correct) ABG pCO2 at Pt Temp ABG pCO2 (Temp Corrct ABG pO2 at Pt Temp ABG pO2 (Temp Correct ABG HCO3 ABG Base Excess (Actual) Sodium Potassium Chloride Carbon Dioxide Anion Gap BUN Creatinine Estim Creat Clear Calc Estimated GFR Random Glucose Lactic Acid 0.8 Calcium Magnesium Total Bilirubin Direct Bilirubin AST ALT Alkaline Phosphatase Troponin I High Sens 20.2 H* B-Natriuretic Peptide Total Protein Albumin COVID-19 (ANEL) Negative COVID-19 [facility] NET Com See Note 03/30/21 03/30/21 11:10 15:41 WBC RBC Hgb Hct MCV MCH MCHC RDW Plt Count MPV Immature Gran % (Auto) Neut % (Auto) Lymph % (Auto) [place] % (Auto) Eos % (Auto) Baso % (Auto) Lymph # (Auto) [place] # (Auto) Eos # (Auto) Baso # (Auto) Abs Immat Gran (auto) Absolute Neuts (auto) Absolute Nucleated RBC Nucleated RBC % (auto) PT INR O2 Saturation 89.0 ABG pH at Pt Temp 7.47 H ABG pH (Temp Correct) 7.47 H ABG pCO2 at Pt Temp 45 ABG pCO2 (Temp Corrct 45 ABG pO2 at Pt Temp 62 L ABG pO2 (Temp Correct 61 L ABG HCO3 33 H ABG Base Excess (Actual) 8.9 Sodium Potassium Chloride Carbon Dioxide Anion Gap BUN Creatinine Estim Creat Clear Calc Estimated GFR Random Glucose Lactic Acid Calcium Magnesium Total Bilirubin Direct Bilirubin AST ALT Alkaline Phosphatase Troponin I High Sens B-Natriuretic Peptide 444 H Total Protein Albumin COVID-19 (ANEL) COVID-19 [facility] NET Com
[2021-03-30] MEDS: ondansetron HCL 4 MG/2 ML VIAL IVPUSH (20:35)
[2021-03-30] MEDS: cefTRIAXone sodium 1 GM in 0.9 % Sodium Chloride 50 ML IV (20:35)
--- NOTE | 2021-03-30 20:51 | W.PM.CCCN ---
History of Present Illness Data of Consult Service Date: 03/30/21 Requesting physician: Perla Oconnell Primary Care Provider: Analisa Chavez MD HPI I was asked to evaluate Mrs. Romero by JARROD souza of acute respiratory failure with the patient on BiPAP. The patient is a 60 yo female with history of steroid dependent COPD on 3L NC (blood gasses show no evidence of CO2 retention, altho some bicarb levels have been slightly elevated.? She is a patient of Dr. Beckford?s.); and CHF.? Last echo on 02/16/21 showed: - normal LV cavity size w mild LVH. - LV EF 30-35% w severe global hypokinesis and impaired relaxation filling pattern. - Moderate MR - mildly increased RV size w low-normal RV fxn. - IVC mildly dilated with < 50% insp collapse. The patient is on Lasix, amlodipine, Coreg, spironolactone, and Isordil.? Baseline renal indices are 23/0.8.? The patient is a current smoker and also has DM2, uncontrolled HTN, and KELLIE noncompliant with CPAP. The patient has been admitted to [facility] times so far this year, all for respiratory failure.? As far as I can tell, she has never been intubated, at least not at [place].? The last admission was 02/15-02/20/2021.? At that hospitalization, she was treated with steroids, antibiotics, diuresis, and optimization of her heart failure treatment with neurohumeral modulation.? Spironolactone and Coreg were added to her regimen. ?BNP on discharge was 173, down from 576. ?She was discharged to SNF for pulmonary rehabilitation. The patient was BIBA to the ED this morning with concerns of shortness of breath, and cough since yesterday. ?No chest pain, fevers, chills, leg swelling or pain.? On admission to the ED, the respiratory rate was 20, with sat of 85% on 4 L oxygen by nasal cannula.? Heart rate was 87, blood pressure was 186/99.? The patient was afebrile. ?She had diminished breath sounds with prolonged expiratory phase and expiratory wheezing. Labs in the ED were notable for white count of 7.2, hemoglobin of 9.5 (approximately her baseline), BUN/creatinine 7/0.7, bicarb 28, BNP 444, troponin 20.? COVID ANEL was negative.? EKG showed no acute ischemic changes.? Chest x-ray was read as showing patchy opacities in both lung bases with normal pulmonary vascularity.? In my interpretation, the chest x-ray is consistent with mild pulmonary edema. The patient went to the bathroom when she came back she was in respiratory distress and diaphoretic.? She failed to improve with an albuterol treatment on was therefore placed on BiPAP 04/08/2040%.? The patient had very difficult IV access, which was finally obtained.? She was given Solu-Medrol magnesium and was thereafter more comfortable on the BiPAP.? She was given Lasix 40 mg.? Arterial blood gas done in the afternoon (I believe on the above BiPAP setting) showed 7.47/45/62/+8.? Apparently, attempts were made to wean the patient off BiPAP, which failed due to hypoxemia.? I was called and recommended better blood pressure control and low-dose morphine for work of breathing.? Later I recommended Norvasc. I saw the patient in the ED at just before 7pm.? She was on BiPAP 14/?/40%, with RR 16, Vt 700+, Sat high 90?s, and entirely comfortable and nontoxic.? She was asking me for water or ice chips.? Heart rate about 80, sinus rhythm.? Blood pressure was 186/99.? I reposition the blood pressure on her upper arm and recycled:? BP was 188/106. ?No JVD at about 45?.? Chest was CTA with good BS and normal exp phase.? RRR (SR on the monitor), normal-sounding S1-S2, with no murmur or gallops.? The abdomen was obese, and benign.? She appeared to have trace pretibial edema, but no central edema. I changed the patient's NIV setting to CPAP 10 cm.? There was no change in her respiratory rate, tidal volume, or SpO2. IMPRESSION:? At the current time, in my opinion the patient is suffering from hypertensive crisis with heart failure.? Not congestive heart failure, just heart failure. What happened after she went to the bathroom would be typical.? With increased effort, she gets more short of breath. ?But she does not have pulmonary congestion (although my reading of her chest x-ray suggests that she might have mild pulmonary edema. ?A BP of 180-200 is problematic for someone with a normal heart, but it?s a disaster for someone with an EF of 30%.? And this patient?s systolic dysfxn is even worse than her EF of 30% suggests, given her moderate MR.? She also likely has significant right heart failure.? She may also be having some asthma phenomenon, which is why she is so comfortable on CPAP or BiPAP.? But she is not having significant congestive heart failure. Treatment should be primarily aimed at getting her BP down to the 120s.? I suspect that once that is accomplished, her breathing will be much, much better.? Diuresis would also likely be very helpful.? If she hasn?t diuresed with the Lasix 40 mg she was given, I would give her a dose of 80mg.? Given the asthmatic component, she might also benefit from steroids, altho I suspect any benefit would not be major. At this time, I don?t think the patient needs further CPAP (or BiPAP).? I would treat tachypnea with opiates, and if she needs further support and is not wheezing, I would use 60 liter HFNC. It may well prove difficult getting the BP down into a good range.? If so, or if she has continued problems, please let us know. Time (including extended chart rev, and mult consultations with ED):? 110 min. [facility] Past Medical History Medical History Acute and chronic respiratory failure with hypoxia Acute exacerbation of chronic obstructive airways disease Acute exacerbation of chronic obstructive pulmonary disease Acute on chronic respiratory failure with hypoxemia Acute on chronic respiratory failure with hypoxemia Anemia Anxiety Cardiomyopathy CHF (congestive heart failure) Chronic respiratory failure Community acquired pneumonia Congestive heart failure Congestive heart failure COPD (chronic obstructive pulmonary disease) COPD exacerbation Depression Diabetes Essential hypertension Essential hypertension HFrEF (heart failure with reduced ejection fraction) HLD (hyperlipidemia) HTN (hypertension) Hypertension Low back pain Mitral regurgitation Non-rheumatic mitral regurgitation Normocytic anemia KELLIE (obstructive sleep apnea) Osteoporosis Postmenopausal Respiratory failure, acute Severe chronic obstructive pulmonary disease Supplemental oxygen dependent Tobacco abuse Family History Family History Father No problems noted. Mother Liver cancer Hypertension Surgical History Surgical History Bilateral ankle fractures History of total abdominal hysterectomy Social History Social History Household Members: None Housing: Apartment Do you presently have visiting nurse or other home services: No Alcohol intake: unknown Patient Tobacco Use Status: Current everyday Tobacco user Tobacco use type: Cigarette Cigarette Packs Per Day: 1 Cigarettes Per Day: 5 Second Hand Smoke Exposure: No Use of substances other than those prescribed or required for medical reasons: No Advance Directives: Yes Advance Directives on File: Yes Advance Directives Date on File: 04/30/20 Patient : No service: No Current occupational status: unemployed, retired and disabled Meds Allergies Allergy/AdvReac Type Severity Reaction Status Date / Time nicotine [Nicotine] Allergy Mild ITCHING Verified 03/18/21 10:25 WITH THE PATCHES topiramate Allergy Mild inadequealte Verified 03/18/21 10:25 response Active Medications: Current Medications Pharmacy Consult (Consult Rx Perform Med Rec) 1 each MISCELLANE ONCE PRN PRN Reason: Consult order Home Medications Medication Instructions Recorded Confirmed Last Taken Type trazodone 50 mg tablet 100 mg PO BEDTIME PRN 03/08/20 03/30/21 03/29/21 History ipratropium 0.5 mg-albuterol 3 mg 3 ml INHALATION QID PRN 02/15/21 03/30/21 03/30/21 History (2.5 mg base)/3 mL nebulization soln ipratropium 20 mcg-albuterol 100 1 puff INHALATION QID 03/30/21 03/30/21 03/30/21 History mcg/actuation mist for inhalation (Combivent Respimat) nicotine 10 mg inhalation 1 inh INHALATION Q2H PRN 03/30/21 03/30/21 03/30/21 History cartridge (Nicotrol) prednisone 5 mg tablet 1 tab PO DAILY 03/30/21 03/30/21 03/30/21 History Physical Exam Vital Signs: Vital Signs: Last Vital Signs Temp 98.3 F 03/30/21 10:40 Pulse 88 03/30/21 20:25 Resp 16 03/30/21 20:25 BP 163/102 H 03/30/21 20:25 Pulse Ox 87 L 03/30/21 20:25 Oxygen Flow Rate 4 03/30/21 10:40 Body Mass Index 29.8 Results Labs CBC & Chem 7: 03/30/21 11:10 03/30/21 11:10 Labs: Short CBC 03/30/21 Range/Units 11:10 WBC 7.2 (4.8-10.8) X10*3/uL Hgb 9.5 L (12.0-16.0) g/dl Hct 32.5 L (37.0-47.0) % Plt Count 176 (160-400) X10*3/uL BMP 03/30/21 11:10 Sodium 140 Potassium 3.8 Chloride 104 Carbon Dioxide 28 BUN 7 L D Creatinine 0.75 Calcium 8.9 D Liver Function 03/30/21 Range/Units 11:10 Total Bilirubin 0.3 (0.0-1.0) mg/dL Direct Bilirubin < 0.2 (0.0-0.5) mg/dL AST 13 D (5-31) U/L ALT 9 (0-31) U/L Alkaline Phosphatase 140 H (39-117) U/L Albumin 3.8 (3.5-5.0) g/dL
[2021-03-30] MEDS: hydrALAZINE HCl 20 MG/ML VIAL 10 MG IVPUSH (21:04)
[2021-03-30] MEDS: iohexoL 350 MG/ML 100 ML INFUS..BTL IV (21:34)
--- NOTE | 2021-03-30 22:56 | PM.IMHP ---
History of Present Illness Date of Service: 03/30/21 Chief Complaint: SOB 60-year-old female with a past medical history of hypertension, hyperlipidemia, diabetes, CAD, CHF with EF of 30%, COPD on 3 L of home oxygen 24/11, tobacco dependence, mitral regurgitation, anxiety, depression, KELLIE noncompliant with CPAP presented to the hospital today with a chief complaint of shortness of breath. Patient reports that over the past today she has been having shortness of breath which has been gradually worsening also complains of dyspnea on exertion; today she could not breathe hence called in the EMS and came to the hospital for further evaluation. Denied any chest pain palpitations lightheadedness or dizziness. Denies any fever chills cough or sputum production. Denies any GI or symptoms. Review of all other systems is negative except mentioned above ER course: Per ER team patient on presentation noted to be in mild distress; CT chest showed no acute findings; paste on CPAP briefly; consulted ICU who evaluated the patient and mentioned to diurese the patient and also nitro patch; ortho Evra patch patient breathing slightly improved; subsequently transitioned to Ventimask at 55 L-saturating mid 80s; ICU team recommended to keep the patient on high-flow oxygen and admitted to the medical floors for further management. Patient received Lasix, nebulizers, magnesium, steroids, nitro patch in the ER. FOR[facility]LY [facility], LATER [facility] Medical History Acute and chronic respiratory failure with hypoxia Acute exacerbation of chronic obstructive airways disease Acute exacerbation of chronic obstructive pulmonary disease Acute on chronic respiratory failure with hypoxemia Acute on chronic respiratory failure with hypoxemia Anemia Anxiety Cardiomyopathy CHF (congestive heart failure) Chronic respiratory failure Community acquired pneumonia Congestive heart failure Congestive heart failure COPD (chronic obstructive pulmonary disease) COPD exacerbation Depression Diabetes Essential hypertension Essential hypertension HFrEF (heart failure with reduced ejection fraction) HLD (hyperlipidemia) HTN (hypertension) Hypertension Low back pain Mitral regurgitation Non-rheumatic mitral regurgitation Normocytic anemia KELLIE (obstructive sleep apnea) Osteoporosis Postmenopausal Respiratory failure, acute Severe chronic obstructive pulmonary disease Supplemental oxygen dependent Tobacco abuse Family History Father No problems noted. Mother Liver cancer Hypertension Pertinent family history: as above Surgical History Bilateral ankle fractures History of total abdominal hysterectomy Social History Household Members: None Housing: Apartment Do you presently have visiting nurse or other home services: No Alcohol intake: unknown Patient Tobacco Use Status: Current everyday Tobacco user Tobacco use type: Cigarette Cigarette Packs Per Day: 1 Cigarettes Per Day: 5 Second Hand Smoke Exposure: No Use of substances other than those prescribed or required for medical reasons: No Advance Directives: Yes Advance Directives on File: Yes Advance Directives Date on File: 04/30/20 Patient : No service: No Current occupational status: unemployed, retired and disabled Meds Allergies Allergy/AdvReac Type Severity Reaction Status Date / Time nicotine [Nicotine] Allergy Mild ITCHING Verified 03/18/21 10:25 WITH THE PATCHES topiramate Allergy Mild inadequealte Verified 03/18/21 10:25 response Active Medications: Current Medications Acetaminophen (Acetaminophen 325 Mg Tablet) 650 mg PO Q6H PRN PRN Reason: Pain, Mild (Pain Scale 1-3) Albuterol/Ipratropium (Albuterol/Iprat 2.5/0.5mg 3 Ml Ampul.Neb) 3 ml INHALE RQ4H WHILE AWAKE PRN PRN Reason: Shortness of Breath/Wheezing Azithromycin (Azithromycin 500 Mg Tablet) 500 mg PO Q24H WALDEMAR Dextrose (Dextrose 50 % 25 Gm/50 Ml Vial) 25 gm IVPUSH Q15M PRN; Protocol PRN Reason: per Hypoglycemia Standing Ord. Enoxaparin Sodium (Enoxaparin Sodium 40 Mg/0.4 Ml Syringe) 40 mg SUBCUT Q24H WALDEMAR Furosemide (Furosemide 40 Mg/4 Ml Vial) 40 mg IVPUSH DAILY WALDEMAR; Protocol Glucose (Glucose Gel 15 Gm Gel..Gram.) 15 gm PO Q15M PRN; Protocol PRN Reason: per Hypoglycemia Standing Ord. Insulin Human Lispro (Insulin Lispro 100 Unit/Ml 3 Ml Vial) 0 unit SUBCUT QIDACHS WALDEMAR; Protocol Melatonin (Melatonin 3 Mg Tablet) 6 mg PO BEDTIME PRN PRN Reason: Insomnia Methylprednisolone Sodium Succinate (Methylprednisolone Sod Succ 40 Mg/Ml Vial) 40 mg IVPUSH Q6H WALDEMAR Morphine Sulfate (Morphine Sulfate 4 Mg/Ml Cartridge) 1 mg IVPUSH Q4H PRN; Protocol PRN Reason: Pain, SOB Pharmacy Consult (Consult Rx Perform Med Rec) 1 each MISCELLANE ONCE PRN PRN Reason: Consult order Senna (Sennosides 8.6 Mg Tablet) 17.2 mg PO BEDTIME PRN PRN Reason: Constipation Sodium Chloride (0.9 % Sodium Chloride Flush 3 Ml Syringe) [facility] Medication Instructions Recorded Confirmed Last Taken Type trazodone 50 mg tablet 100 mg PO BEDTIME PRN 03/08/20 03/30/21 03/29/21 History ipratropium 0.5 mg-albuterol 3 mg 3 ml INHALATION QID PRN 02/15/21 03/30/21 03/30/21 History (2.5 mg base)/3 mL nebulization soln ipratropium 20 mcg-albuterol 100 1 puff INHALATION QID 03/30/21 03/30/21 03/30/21 History mcg/actuation mist for inhalation (Combivent Respimat) nicotine 10 mg inhalation 1 inh INHALATION Q2H PRN 03/30/21 03/30/21 03/30/21 History cartridge (Nicotrol) prednisone 5 mg tablet 1 tab PO DAILY 03/30/21 03/30/21 03/30/21 History Physical Exam Vital Signs and Narrative: Vital Signs: Last Vital Signs Temp 98.3 F 03/30/21 10:40 Pulse 90 03/30/21 22:28 Resp 16 03/30/21 22:53 BP 141/87 H 03/30/21 22:28 Pulse Ox 92 03/30/21 21:37 Oxygen Flow Rate 4 03/30/21 10:40 Body Mass Index 29.8 Gen: Appears be in no acute distress; on Ventimask. Speaks in full sentences. HEENT: NCAT, Moist mucosa. Pulmonary: coarse breath sounds, fair air entry CVS: Normal S1-S2 Abdomen: BS+, Soft, Nontender Extremities: Warm well perfused; Trace pedal edema Neuro: Alert and awake. grossly nonfocal Results Labs CBC and Chem 7: 03/30/21 11:10 03/30/21 11:10 Labs: Laboratory Results - last 24 hr 03/30/21 03/30/21 03/30/21 11:10 11:10 11:10 MCV 80.2 MCH 23.5 L MCHC 29.2 L RDW 16.7 H Plt Count 176 MPV 9.9 Immature Gran % (Auto) 0.3 Neut % (Auto) 76.6 H Lymph % (Auto) 16.8 L Newton % (Auto) 5.7 Eos % (Auto) 0.6 Baso % (Auto) 0.0 Lymph # (Auto) 1.2 Newton # (Auto) 0.4 Eos # (Auto) 0.0 Baso # (Auto) 0.0 Abs Immat Gran (auto) 0.02 Absolute Neuts (auto) 5.5 Absolute Nucleated RBC 0.000 Nucleated RBC % (auto) 0.0 PT 11.6 INR 1.0 O2 Saturation ABG pH at Pt Temp ABG pH (Temp Correct) ABG pCO2 at Pt Temp ABG pCO2 (Temp Corrct ABG pO2 at Pt Temp ABG pO2 (Temp Correct ABG HCO3 ABG Base Excess (Actual) Anion Gap 12 Estim Creat Clear Calc 73.1 Estimated GFR > 60 Random Glucose 106 Lactic Acid Calcium 8.9 D Magnesium 2.1 Total Bilirubin 0.3 Direct Bilirubin < 0.2 AST 13 D ALT 9 Alkaline Phosphatase 140 H Troponin I High Sens B-Natriuretic Peptide Total Protein 6.9 Albumin 3.8 COVID-19 (ANEL) COVID-19 Clin Com 03/30/21 03/30/21 03/30/21 11:10 11:10 11:10 MCV MCH MCHC RDW Plt Count MPV Immature Gran % (Auto) Neut % (Auto) Lymph % (Auto) Newton % (Auto) Eos % (Auto) Baso % (Auto) Lymph # (Auto) Newton # (Auto) Eos # (Auto) Baso # (Auto) Abs Immat Gran (auto) Absolute Neuts (auto) Absolute Nucleated RBC Nucleated RBC % (auto) PT INR O2 Saturation ABG pH at Pt Temp ABG pH (Temp Correct) ABG pCO2 at Pt Temp ABG pCO2 (Temp Corrct ABG pO2 at Pt Temp ABG pO2 (Temp Correct ABG HCO3 ABG Base Excess (Actual) Anion Gap Estim Creat Clear Calc Estimated GFR Random Glucose Lactic Acid 0.8 Calcium Magnesium Total Bilirubin Direct Bilirubin AST ALT Alkaline Phosphatase Troponin I High Sens 20.2 H* B-Natriuretic Peptide Total Protein Albumin COVID-19 (ANEL) Negative COVID-19 Clin Com See Note 03/30/21 03/30/21 11:10 15:41 MCV MCH MCHC RDW Plt Count MPV Immature Gran % (Auto) Neut % (Auto) Lymph % (Auto) Newton % (Auto) Eos % (Auto) Baso % (Auto) Lymph # (Auto) Newton # (Auto) Eos # (Auto) Baso # (Auto) Abs Immat Gran (auto) Absolute Neuts (auto) Absolute Nucleated RBC Nucleated RBC % (auto) PT INR O2 Saturation 89.0 ABG pH at Pt Temp 7.47 H ABG pH (Temp Correct) 7.47 H ABG pCO2 at Pt Temp 45 ABG pCO2 (Temp Corrct 45 ABG pO2 at Pt Temp 62 L ABG pO2 (Temp Correct 61 L ABG HCO3 33 H ABG Base Excess (Actual) 8.9 Anion Gap Estim Creat Clear Calc Estimated GFR Random Glucose Lactic Acid Calcium Magnesium Total Bilirubin Direct Bilirubin AST ALT Alkaline Phosphatase Troponin I High Sens B-Natriuretic Peptide 444 H Total Protein Albumin COVID-19 (ANEL) COVID-19 Clin Com Imaging Radiologist's Impressions: Impressions Chest X-Ray 03/30/21 11:10 IMPRESSION: Mild bibasilar atelectatic changes. Chest CTA 03/30/21 18:16 IMPRESSION: No evidence of pulmonary emboli. Enlargement of the pulmonary arteries and cardiomegaly suggesting pulmonary hypertension. There is also reflux of contrast into the hepatic veins suggesting increased right-sided heart pressures. If indicated, correlate with a bedside echocardiogram. Emphysematous changes with bronchial wall thickening and mosaic attenuation of the lung parenchyma raising the possibility of an atypical infectious or inflammatory process of the small airways such as bronchitis leading to mild air trapping. No focal consolidation. Trace amount of bilateral pleural fluid. Progression of a compression deformity at L1 with new mild retropulsion into the thecal sac. Correlate for tenderness at this site and if indicated, consider further evaluation with an MR of the lumbar spine. VTE: negative Chest X-Ray 03/30/21 20:18 IMPRESSION: Right internal jugular venous catheter terminates over the cavoatrial junction. No pneumothorax. Stable interstitial opacities in the lung bases. Assessment and Plan (1) CHF (congestive heart failure): Qualifiers: Heart failure chronicity: chronic Heart failure type: diastolic Qualified Code(s): I50.32 - Chronic diastolic (congestive) heart failure Status: Acute (2) Hypoxia: Status: Acute (3) COPD (chronic obstructive pulmonary disease): Qualifiers: COPD type: COPD with acute exacerbation Qualified Code(s): J44.1 - Chronic obstructive pulmonary disease with (acute) exacerbation Status: Acute 60-year-old female with a past medical history of hypertension, hyperlipidemia, diabetes, CAD, CHF with EF of 30%, COPD on 3 L of home oxygen 24/11, tobacco dependence, mitral regurgitation, anxiety, depression, KELLIE noncompliant with CPAP presented to the hospital today with a chief complaint of shortness of breath. Acute hypoxic respiratory failure: In setting of CHF/COPD. Patient was briefly on BiPAP in the ER. evaluated by ICU team-recommended admission to the medical service. Post BiPAP patient was briefly on Ventimask but still saturating in mid 80s; now patient is on high-flow oxygen.Breathing comfortably. Speaking in full sentences. Not in distress. Supportive care Acute CHF exacerbation: Continue Lasix 40 mg IV daily. Telemetry. Cycle cardiac enzymes. Cardiology consult. Hold home Aldactone for now. Acute COPD exacerbation: Continue Solu-Medrol IV, nebulizations standing and p.r.n., hold home prednisone for now. Azithromycin. diabetes: Insulin sliding scale Hypertension/ hyperlipidemia: Continue home medications Tobacco dependence: consult against tobacco smoking. Offered nicotine Gums. L1 compression fracture: CT scan showed mild retropulsion. Patient denies any change in her back pain. Denies any bowel or bladder dysfunction. Exam nonfocal. Pain control. will defer to the morning team to consider MRI L-spine if anything changes clinically For all other chronic conditions, home medications will be continued DVT prophylaxis: Lovenox Code status: Full code Quality Stroke Does the patient have a stroke diagnosis?: No VTE Prior VTE?: No VTE Risk Level:: Medical - moderate - high VTE Device Contraindication: Treatment Not Indicated VTE Drug Contraindication: N/A - Med Ordered
[2021-03-30] MEDS: Enoxaparin Sodium 40 MG/0.4 ML SYRINGE SUBCUT (23:46)
[2021-03-30] MEDS: methylPREDNISolone Sod Succ 40 MG/ML VIAL IVPUSH (23:46)
[2021-03-30] MEDS: Azithromycin 500 MG TABLET PO (23:47)
[2021-03-30] MEDS: 0.9 % Sodium Chloride Flush 3 ML SYRINGE IVFLUSH (23:47)
[2021-03-31] VITALS (19 sets, daily range): BP systolic 129–175; BP diastolic 89–109; PULSE 85–100; RESP 13–21; TEMP 36.8–36.9; O2SAT 86–96
[2021-03-31 00:21] LABS: Troponin-I High Sensitivity 27.9 ng/L (<3.5-17.0)
[2021-03-31] MEDS: methylPREDNISolone Sod Succ 40 MG/ML VIAL IVPUSH ×3 (06:04→21:39)
--- NOTE | 2021-03-31 06:16 | PC.NURSE ---
Pt remains alert and oriented x4, calm and cooperative. Pt continues to have shortness of breath, but states she feels it has improved. Pt on high flow nasal canula per MD orders ad tolerating well, O2 sat at 93%. Pt does not appear in acute distress. Pt slept most of night filler. Triple lumen central line placed earlier in shift by MD Rogers in right IJ, pt tolerated well. Triple lumen cath flushing without issues and blood return noted in all lumens. Pt denies pain. Pt turns and positions herself. Remains on pure wick, 600ml urine output. Called for hospital bed, waiting to get bed.
--- NOTE | 2021-03-31 06:59 | PC.NURSE ---
Pt alert and oriented x4, calm and cooperative. Pt changed over to hospital bed, was able to stand and pivot and tolerated well. Buttock skin intact. Central line intact. Pt BP elevated 160'2/100, MD Giordano aware at bedside with patient. Pt states chronic back and leg pain to MD with RN present.
[2021-03-31 07:16] LABS: Glucose, Whole Blood 145 mg/dL (60-115)
[2021-03-31] MEDS: Omeprazole 20 MG CAPSULE.DR PO (07:42)
[2021-03-31] MEDS: Furosemide 40 MG/4 ML VIAL IVPUSH (07:42)
[2021-03-31] MEDS: Losartan Potassium 50 MG TABLET 100 MG PO (07:42)
[2021-03-31] MEDS: carvediloL 3.125 MG TABLET 6.25 MG PO ×2 (07:43→21:35)
[2021-03-31] MEDS: Isosorbide Mononitrate 30 MG TAB.ER.24H PO (07:43)
[2021-03-31] MEDS: Folic Acid 1 MG TABLET PO (07:43)
[2021-03-31] MEDS: Sertraline HCL 100 MG TABLET 200 MG PO (07:43)
[2021-03-31] MEDS: QUEtiapine Fumarate 50 MG TABLET PO ×2 (07:43→21:35)
[2021-03-31] MEDS: amLODIPine Besylate 5 MG TABLET PO (07:43)
[2021-03-31 08:15] LABS: Hematocrit 30.9 % (37.0-47.0); Hemoglobin 9.4 g/dl (12.0-16.0); Imm Gran Abs Auto 0.05 X10*3/uL (0.00-0.03); Imm Gran Pct Auto 0.4 % (0.0-0.4); Lymphocytes Absolute Auto 0.6 X10*3/uL (1.2-4.9); Lymphocytes Percent Auto 5.2 % (20-40); MANUAL DIFF FLAG SCAN; Mean Corpuscular HGB Conc 30.4 g/dl (31.0-35.0); Mean Corpuscular Hemoglobin 23.9 pg (27.0-33.0); Mean Corpuscular Volume 78.4 fL (80.0-98.0); Mean Platelet Volume 9.6 fL (9.4-12.3); Monocytes Absolute Auto 0.3 X10*3/uL (0.1-1.2); Monocytes Percent Auto 2.4 % (2-11); Neutrophils Absolute Auto 10.5 x10*3/uL (2.0-8.3); Platelet Count 174 X10*3/uL (160-400); Red Blood Count 3.94 X10*6/uL (4.20-5.50); Red Cell Distribution Width 16.9 % (11.0-16.0); SCAN SMEAR FLAG 1; White Blood Count 11.5 X10*3/uL (4.8-10.8)
[2021-03-31] MEDS: Albuterol/Iprat 2.5/0.5MG 3 ML AMPUL.NEB INHALE (08:29)
[2021-03-31 08:37] LABS: SLIDE REVIEW VERIFIED
[2021-03-31 08:46] LABS: Alanine Aminotransferase 10 U/L (0-31); Albumin Level 4.1 g/dL (3.5-5.0); Alkaline Phosphatase 149 U/L (39-117); Anion Gap 14 (12-20); Aspartate Amino Transferase 14 U/L (5-31); Bilirubin Total 0.4 mg/dL (0.0-1.0); Blood Urea Nitrogen 14 mg/dL (9-16); Calcium 9.6 mg/dL (8.4-10.2); Carbon Dioxide 30 mmol/L (22-29); Chloride 98 mmol/L (96-108); Creatinine Clr Calc Pharmacy 60.9; Estimated Glomerular Filt Rate > 60; Glucose Random 156 mg/dL (60-115); Potassium 3.6 mmol/L (3.3-5.1); Sodium 138 mmol/L (135-145); Total Protein 7.4 g/dL (6.5-8.0)
--- NOTE | 2021-03-31 09:21 | PC.NURSE ---
multiple attempts to contact hospitalist. rt placing pt back on bipap d/t sats dropping into the 70s.
--- NOTE | 2021-03-31 12:46 | PM.CCN ---
Critical Care Event Note Summary Date of Service: 03/31/21 Code activated: No Narrative: I went to see Ms. Romero in follow-up of my visit yesterday. The patient is still in the ED, in bed 19. On my exam, the patient is fully awake and appropriate and able to speak easily. She looks entirely comfortable and nontoxic. Her blood pressures overnight were running around the 160 systolic range. Her last blood pressure recorded this morning was 129/106, which is almost certainly a falacious blood pressure. She is is breathing easy on BiPAP 14/8/55%, with RR 16, VT 700-1050 cc, Ve 12-16L. Sat is 96%. She has no JVD at 10?. Chest is CTA with normal exp phase. I heard no rales or wheezes. She has trivial lower extremity edema. No blood gas was done this morning. BUN/creatinine are up to 14/0.9 after diuresis yesterday. I am unable to figure out how much urine she's put out so far. COMMENT: The patient's tidal vols above indicate with certainty that BiPAP is not necessary. She might need CPAP, but I suspect she would do fine on HFNC, with opiates to control her WOB. A venous or arterial blood gas would help define why her minute volume is high. Her BP still needs to be brought down, optimally in the 120-130 range. A renal consult might be helpful in achieving the desired BP with the desired diuresis. Critical Care Time (minutes): 0
[2021-03-31 13:13] LABS: Glucose, Whole Blood 154 mg/dL (60-115)
--- NOTE | 2021-03-31 13:14 | P.CONCA_ITS ---
History of Present Illness History of Present Illness Date of Service: 03/31/21 Consult reason: congestive heart failure Chief complaint: Acute resp failure Narrative: I was requested to see Paola in cardiology consultation today for acute respiratory failure. History was obtained with help of metal finisher. Patient with prior history of systolic heart failure with LVEF of 30-35% by echocardiogram this February when she had come again with respiratory failure. She has prior history of sleep apnea noncompliant with CPAP, COPD, obesity with possibly obesity hypoventilation syndrome. She said that she came to the hospital with progressively increasing shortness of breath and with sudden shortness of breath yesterday. She was discharged home on February 20 last month with heart failure as well as respiratory failure. She has noticed only increasing leg swelling in 1 leg. No clear documentation of any weight gain. She says she has been taking all her medications. When she came in she was in acute respiratory failure and was put on BiPAP. Was evaluated by Critical Care Team and was advised to does diurese and continue with BiPAP treatment. She is currently on BiPAP treatment, overall her respiratory work as improved and she is not in significant respiratory distress at this point time. Cardiology consult was sought for further management plan. Review of Systems Constitutional: Constitutional: Reports no additional constitutional com plaints Eyes: Eyes: Reports no additional eye complaints Cardiovascular: Cardiovascular: Denies chest pain, Reports leg edema, Denies lightheadedness, Denies Loss of Consciousness, Denies palpitations, Reports dyspnea on exertion and Reports orthopnea Respiratory: Respiratory: Reports no additional respiratory complaints and Reports dyspnea on exertion Gastrointestinal: Gastrointestinal: Reports no additional gastrointestinal complaints Genitourinary: Genitourinary: Reports no additional female genitourinary complaints Musculoskeletal: Musculoskeletal: Reports no additional musculoskeletal complaints Integumentary/Breasts: Skin/Breast: Reports system reviewed and no additional complaints, except as docu Neurologic: Reports system reviewed and no additional complaints, except as documented Psychiatric: Psychiatric: Reports no additional psychiatric complaints Endocrine: Endocrine: Denies palpitations Allergic/Immunologic: Allergic/Immunologic: Reports no additional allergic/immunologic complaints [facility] Past Medical History Medical History (Updated 03/31/21 @ 13:22 by Bhupendra Germain MD) Acute and chronic respiratory failure with hypoxia Acute exacerbation of chronic obstructive airways disease Acute exacerbation of chronic obstructive pulmonary disease Acute on chronic respiratory failure with hypoxemia Acute on chronic respiratory failure with hypoxemia Anemia Anxiety Cardiomyopathy CHF (congestive heart failure) Chronic respiratory failure Community acquired pneumonia Congestive heart failure Congestive heart failure COPD (chronic obstructive pulmonary disease) COPD exacerbation Depression Diabetes Essential hypertension Essential hypertension HFrEF (heart failure with reduced ejection fraction) HLD (hyperlipidemia) HTN (hypertension) Hypertension Low back pain Mitral regurgitation Non-rheumatic mitral regurgitation Normocytic anemia KELLIE (obstructive sleep apnea) Osteoporosis Postmenopausal Respiratory failure, acute Severe chronic obstructive pulmonary disease Supplemental oxygen dependent Tobacco abuse Family History Family History Father No problems noted. Mother Liver cancer Hypertension Surgical History Surgical History Bilateral ankle fractures History of total abdominal hysterectomy Social History Social History Household Members: None Housing: Apartment Do you presently have visiting nurse or other home services: No Alcohol intake: unknown Patient Tobacco Use Status: Current everyday Tobacco user Tobacco use type: Cigarette Cigarette Packs Per Day: 1 Cigarettes Per Day: 5 Second Hand Smoke Exposure: No Use of substances other than those prescribed or required for medical reasons: No Advance Directives: Yes Advance Directives on File: Yes Advance Directives Date on File: 04/30/20 Patient : No service: No Current occupational status: unemployed, retired and disabled Meds Allergies Allergy/AdvReac Type Severity Reaction Status Date / Time nicotine [Nicotine] Allergy Mild ITCHING Verified 03/18/21 10:25 WITH THE PATCHES topiramate Allergy Mild inadequealte Verified 03/18/21 10:25 response Active Medications: Current Medications Acetaminophen (Acetaminophen 325 Mg Tablet) 650 mg PO Q6H PRN PRN Reason: Pain, Mild (Pain Scale 1-3) Albuterol/Ipratropium (Albuterol/Iprat 2.5/0.5mg 3 Ml Ampul.Neb) 3 ml INHALE RQ4H WHILE AWAKE PRN PRN Reason: Shortness of Breath/Wheezing Last Admin: 03/31/21 08:29 Dose: 3 ml Documented by: Albuterol/Ipratropium (Albuterol/Iprat 2.5/0.5mg 3 Ml Ampul.Neb) 3 ml INHALE QID PRN PRN Reason: Shortness Of Breath Amlodipine Besylate (Amlodipine Besylate 5 Mg Tablet) 5 mg PO DAILY [facility]; Protocol Last Admin: 03/31/21 07:43 Dose: 5 mg Documented by: Azithromycin (Azithromycin 500 Mg Tablet) 500 mg PO Q24H [facility] Last Admin: 03/30/21 23:47 Dose: 500 mg Documented by: Carvedilol (Carvedilol 3.125 Mg Tablet) 6.25 mg PO BID [facility]; Protocol Last Admin: 03/31/21 07:43 Dose: 6.25 mg Documented by: Dextrose (Dextrose 50 % 25 Gm/50 Ml Vial) 25 gm IVPUSH Q15M PRN; Protocol PRN Reason: per Hypoglycemia Standing Ord. Enoxaparin Sodium (Enoxaparin Sodium 40 Mg/0.4 Ml Syringe) 40 mg SUBCUT Q24H [facility] Last Admin: 03/30/21 23:46 Dose: 40 mg Documented by: Folic Acid (Folic Acid 1 Mg Tablet) 1 mg PO DAILY [facility] Last Admin: 03/31/21 07:43 Dose: 1 mg Documented by: Furosemide (Furosemide 40 Mg/4 Ml Vial) 40 mg IVPUSH DAILY [facility]; Protocol Last Admin: 03/31/21 07:42 Dose: 40 mg Documented by: Glucose (Glucose Gel 15 Gm Gel..Gram.) 15 gm PO Q15M PRN; Protocol PRN Reason: per Hypoglycemia Standing Ord. Insulin Human Lispro (Insulin Lispro 100 Unit/Ml 3 Ml Vial) 0 unit SUBCUT QIDACHS [facility]; Protocol Last Admin: 03/31/21 13:11 Dose: Not Given Documented by: Isosorbide Mononitrate (Isosorbide Mononitrate 30 Mg Tab.Er.24h) 30 mg PO DAILY [facility]; Protocol Last Admin: 03/31/21 07:43 Dose: 30 mg Documented by: Losartan Potassium (Losartan Potassium 50 Mg Tablet) 100 mg PO DAILY [facility]; Protocol Last Admin: 03/31/21 07:42 Dose: 100 mg Documented by: Meclizine HCl (Meclizine Hcl 25 Mg Tablet) 25 mg PO TID PRN PRN Reason: dizziness Melatonin (Melatonin 3 Mg Tablet) 6 mg PO BEDTIME PRN PRN Reason: Insomnia Methylprednisolone Sodium Succinate (Methylprednisolone Sod Succ 40 Mg/Ml Vial) 40 mg IVPUSH Q6H [facility] Last Admin: 03/31/21 11:51 Dose: 40 mg Documented by: Montelukast Sodium (Montelukast Sodium 10 Mg Tablet) 10 mg PO BEDTIME [facility] Morphine Sulfate (Morphine Sulfate 4 Mg/Ml Cartridge) 1 mg IVPUSH Q4H PRN; Protocol PRN Reason: Pain, SOB Non-Formulary Medication (Nicotine [Nicotrol]) 1 inhalation INHALE Q2H PRN PRN Reason: Smoking Cessation Omeprazole (Omeprazole 20 Mg Capsule.Dr) 20 mg PO DAILY [facility] Last Admin: 03/31/21 07:42 Dose: 20 mg Documented by: Pharmacy Consult (Consult Rx Perform Med Rec) 1 each MISCELLANE ONCE PRN PRN Reason: Consult order Quetiapine Fumarate (Quetiapine Fumarate 50 Mg Tablet) 50 mg PO BID [facility] Last Admin: 03/31/21 07:43 Dose: 50 mg Documented by: Senna (Sennosides 8.6 Mg Tablet) 17.2 mg PO BEDTIME PRN PRN Reason: Constipation Sertraline HCl (Sertraline Hcl 100 Mg Tablet) 200 mg PO DAILY [facility] Last Admin: 03/31/21 07:43 Dose: 200 mg Documented by: Sodium Chloride (0.9 % Sodium Chloride Flush 3 Ml Syringe) 3 ml IVFLUSH QSHIFT [facility] Last Admin: 03/31/21 07:15 Dose: Not Given Documented by: Tiotropium [place] (Tiotropium [place] 18 Mcg Cap.W.Dev) 1 puff INHALE DAILY [facility] Last Admin: 03/31/21 09:56 Dose: Not Given Documented by: Trazodone HCl (Trazodone Hcl 50 Mg Tablet) 50 mg PO BEDTIME PRN PRN Reason: Sleep Home Medications Medication Instructions Recorded Confirmed Last Taken Type trazodone 50 mg tablet 100 mg PO BEDTIME PRN 03/08/20 03/30/21 03/29/21 History ipratropium 0.5 mg-albuterol 3 mg 3 ml INHALATION QID PRN 02/15/21 03/30/21 03/30/21 History (2.5 mg base)/3 mL nebulization soln ipratropium 20 mcg-albuterol 100 1 puff INHALATION QID 03/30/21 03/30/21 03/30/21 History mcg/actuation mist for inhalation (Combivent Respimat) nicotine 10 mg inhalation 1 inh INHALATION Q2H PRN 03/30/21 03/30/21 03/30/21 History cartridge (Nicotrol) prednisone 5 mg tablet 1 tab PO DAILY 03/30/21 03/30/21 03/30/21 History Physical Exam Vital Signs: Vital Signs: Last Vital Signs Temp 98.4 F 03/31/21 08:22 Pulse 87 03/31/21 11:50 Resp 16 03/31/21 12:16 BP 129/106 H 03/31/21 11:50 Pulse Ox 96 03/31/21 11:50 Oxygen Flow Rate 4 03/30/21 10:40 Body Mass Index 29.8 Const: General: cooperative, comfortable, alert, awake and in distress moderate and respiratory Nutritional Appearance: obese Orientation /consciousness: patient oriented x3 Limitations: language barrier HENMT: Head: Yes normocephalic and Yes atraumatic Neck: Neck: Yes trachea midline, Yes supple and Yes JVD Resp: Effort & Inspection: normal respiratory effort Auscultation: crackles, rales, no wheezes and diminished lung sounds Cardio: Jugular venous distension: JVD Rate: regular rate Rhythm: regu lar rhythm Heart sounds: S1 normal heart sound present, S2 normal heart sound present, no click, no gallops and no murmurs GI: Inspection: Yes obesity Auscultation: normal bowel sounds Skin: General skin exam: no rashes or lesions noted and ecchymosis Neuro: General: patient oriented x3 and no focal motor deficits Extrem: General: No clubbing, No cyanosis and Yes edema Objective Labs and Meds Result diagrams: 03/31/21 08:07 03/31/21 08:07 Lab results: Laboratory Results - last 24 hr 03/30/21 03/30/21 03/31/21 15:41 23:51 07:12 WBC RBC Hgb Hct MCV MCH MCHC RDW Plt Count MPV Immature Gran % (Auto) Neut % (Auto) Lymph % (Auto) [place] % (Auto) Eos % (Auto) Baso % (Auto) Lymph # (Auto) [place] # (Auto) Eos # (Auto) Baso # (Auto) Abs Immat Gran (auto) Absolute Neuts (auto) Absolute Nucleated RBC Nucleated RBC % (auto) Smear Tech's Comments O2 Saturation 89.0 ABG pH at Pt Temp 7.47 H ABG pH (Temp Correct) 7.47 H ABG pCO2 at Pt Temp 45 ABG pCO2 (Temp Corrct 45 ABG pO2 at Pt Temp 62 L ABG pO2 (Temp Correct 61 L ABG HCO3 33 H ABG Base Excess (Actual) 8.9 Sodium Potassium Chloride Carbon Dioxide Anion Gap BUN Creatinine Estim Creat Clear Calc Estimated GFR POC Glucose 145 H Random Glucose Calcium Total Bilirubin AST ALT Alkaline Phosphatase Troponin I High Sens 27.9 H* Total Protein Albumin 03/31/21 03/31/21 03/31/21 08:07 08:07 13:09 WBC 11.5 H RBC 3.94 L Hgb 9.4 L Hct 30.9 L MCV 78.4 L MCH 23.9 L MCHC 30.4 L RDW 16.9 H Plt Count 174 MPV 9.6 Immature Gran % (Auto) 0.4 Neut % (Auto) 92.0 H Lymph % (Auto) 5.2 L [place] % (Auto) 2.4 Eos % (Auto) 0.0 Baso % (Auto) 0.0 Lymph # (Auto) 0.6 L [place] # (Auto) 0.3 Eos # (Auto) 0.0 Baso # (Auto) 0.0 Abs Immat Gran (auto) 0.05 H Absolute Neuts (auto) 10.5 H Absolute Nucleated RBC 0.000 Nucleated RBC % (auto) 0.0 Smear Tech's Comments VERIFIED O2 Saturation ABG pH at Pt Temp ABG pH (Temp Correct) ABG pCO2 at Pt Temp ABG pCO2 (Temp Corrct ABG pO2 at Pt Temp ABG pO2 (Temp Correct ABG HCO3 ABG Base Excess (Actual) Sodium 138 Potassium 3.6 Chloride 98 Carbon Dioxide 30 H Anion Gap 14 BUN 14 D Creatinine 0.90 Estim Creat Clear Calc 60.9 Estimated GFR > 60 POC Glucose 154 H Random Glucose 156 H Calcium 9.6 D Total Bilirubin 0.4 AST 14 ALT 10 Alkaline Phosphatase 149 H Troponin I High Sens Total Protein 7.4 Albumin 4.1 Imaging Radiologist's impression: Impressions Chest X-Ray 03/30/21 11:10 IMPRESSION: Mild bibasilar atelectatic changes. Chest CTA 03/30/21 18:16 IMPRESSION: No evidence of pulmonary emboli. Enlargement of the pulmonary arteries and cardiomegaly suggesting pulmonary hypertension. There is also reflux of contrast into the hepatic veins suggesting increased right-sided heart pressures. If indicated, correlate with a bedside echocardiogram. Emphysematous changes with bronchial wall thickening and mosaic attenuation of the lung parenchyma raising the possibility of an atypical infectious or inflammatory process of the small airways such as bronchitis leading to mild air trapping. No focal consolidation. Trace amount of bilateral pleural fluid. Progression of a compression deformity at L1 with new mild retropulsion into the thecal sac. Correlate for tenderness at this site and if indicated, consider further evaluation with an MR of the lumbar spine. VTE: negative Chest X-Ray 03/30/21 20:18 IMPRESSION: Right internal jugular venous catheter terminates over the cavoatrial junction. No pneumothorax. Stable interstitial opacities in the lung bases. Assessment and Plan (1) Acute and chronic respiratory failure with hypoxia: Status: Acute Acute respiratory failure in this middle-aged woman with known prior history of systolic heart failure with moderate to severe LV systolic dysfunction. She presents with acute shortness of breath. Findings consistent with congestive heart failure. Appears to still be in congestive AP continue IV diuresis with Lasix. Strict intake and output chart needs to be pursued. Continue follow-up BMP and BNP. Blood pressure is better optimized. However is not maximize neurohormonal modulation at this point time. Would hold off on ma ximizing Coreg once her fluid status improves. Would add Aldactone 12.5 mg to her regimen. Continue losartan and should switch to Entresto therapy eventually. However patient has not had follow-up since her discharge in outpatient cardiology clinic for unclear reasons. Currently on amlodipine which should be eventually tapered and switch to maximal carvedilol as well as Entresto therapy and maximal mineral corticoid. May also benefit with Jardiance therapy. Also may be a good candidate for CardioMEMS device as outpatient. Will also require ischemic workup, may consider as inpatient during this hospitalization. Pulmonary consultation should be pursued. Continue supportive care and BiPAP therapy as indicated. Will follow with you Procedures Date of Service Date of Service: 03/31/21
--- NOTE | 2021-03-31 13:26 | P.CONPL_ITS ---
History of Present Illness History of Present Illness Consult date: 03/31/21 Chief complaint: Acute resp failure Narrative: ?This is an inpatient pulmonary consultation. The patient is a 60 year-old female with a past medical history of hypertension, hyperlipidemia, diabetes, CAD, CHF with EF of 30%, COPD on 3 L of home oxygen 24/11, tobacco dependence, mitral regurgitation, anxiety, depression, KELLIE noncompliant with CPAP presented to the hospital today with a chief complaint of shortness of breath.? The patient reports that over the past several days she has been having shortness of breath which has been gradually worsening also complains of dyspnea on exertion; today she could not breathe hence called in the EMS and came to the hospital for further evaluation.? Denied any chest pain palpitations lightheadedness or dizziness.?In the ER team patient on presentation noted to be in mild distress; CT chest showed no acute findings; paste on CPAP briefly; consulted ICU who evaluated the patient and mentioned to diurese the patient and also nitro patch; subsequently transitioned to Ventimask at 55 L-saturating mid 80s. The patient is back on NIV feeling better. Awaiting repeat VVG. I did personally review the CT scan of the chest demonstrating on a dilated pulmonary trunk suggesting significant pulmonary hypertension. Review of Systems Constitutional: Constitutional: Reports no additional constitutional complaints Eyes: Eyes: Reports no additional eye complaints Cardiovascular: Cardiovascular: Denies chest pain, Reports leg edema, Denies lightheadedness, Denies Loss of Consciousness, Denies palpitations, Reports dyspnea on exertion and Reports orthopnea Respiratory: Respiratory: Reports no additional respiratory complaints and Reports dyspnea on exertion Gastrointestinal: Gastrointestinal: Reports no additional gastrointestinal complaints Genitourinary: Genitourinary: Reports no additional female genitourinary complaints Musculoskeletal: Musculoskeletal: Reports no additional musculoskeletal complaints Integumentary/Breasts: Skin/Breast: Reports system reviewed and no additional complaints, except as docu Neurologic: Reports system reviewed and no additional complaints, except as documented Psychiatric: Psychiatric: Reports no additional psychiatric complaints Endocrine: Endocrine: Denies palpitations Allergic/Immunologic: Allergic/Immunologic: Reports no additional allergic/im munologic complaints [facility] Past Medical History Medical History (Updated 03/31/21 @ 13:36 by Elton Winslow MD) Acute and chronic respiratory failure with hypoxia Acute exacerbation of chronic obstructive airways disease Acute exacerbation of chronic obstructive pulmonary disease Acute on chronic respiratory failure with hypoxemia Acute on chronic respiratory failure with hypoxemia Anemia Anxiety Cardiomyopathy CHF (congestive heart failure) Chronic respiratory failure Community acquired pneumonia Congestive heart failure Congestive heart failure COPD (chronic obstructive pulmonary disease) COPD exacerbation COPD exacerbation Depression Diabetes Essential hypertension Essential hypertension HFrEF (heart failure with reduced ejection fraction) HLD (hyperlipidemia) HTN (hypertension) Hypertension Low back pain Mitral regurgitation Non-rheumatic mitral regurgitation Normocytic anemia KELLIE (obstructive sleep apnea) Osteoporosis Postmenopausal Pulmonary hypertension Respiratory failure, acute Severe chronic obstructive pulmonary disease Supplemental oxygen dependent Tobacco abuse Family History Family History Father No problems noted. Mother Liver cancer Hypertension Surgical History Surgical History Bilateral ankle fractures History of total abdominal hysterectomy Social History Social History Household Members: None Housing: Apartment Do you presently have visiting nurse or other home services: No Alcohol intake: unknown Patient Tobacco Use Status: Current everyday Tobacco user Tobacco use type: Cigarette Cigarette Packs Per Day: 1 Cigarettes Per Day: 5 Second Hand Smoke Exposure: No Use of substances other than those prescribed or required for medical reasons: No Advance Directives: Yes Advance Directives on File: Yes Advance Directives Date on File: 04/30/20 Patient : No service: No Current occupational status: unemployed, retired and disabled Meds Allergies Allergy/AdvReac Type Severity Reaction Status Date / Time nicotine [Nicotine] Allergy Mild ITCHING Verified 03/18/21 10:25 WITH THE PATCHES topiramate Allergy Mild inadequealte Verified 03/18/21 10:25 response Active Medications: Current Medications Acetaminophen (Acetaminophen 325 Mg Tablet) 650 mg PO Q6H PRN PRN Reason: Pain, Mild (Pain Scale 1-3) Albuterol/Ipratropium (Albuterol/Iprat 2.5/0.5mg 3 Ml Ampul.Neb) 3 ml INHALE RQ4H WHILE AWAKE PRN PRN Reason: Shortness of Breath/Wheezing Last Admin: 03/31/21 08:29 Dose: 3 ml Documented by: Albuterol/Ipratropium (Albuterol/Iprat 2.5/0.5mg 3 Ml Ampul.Neb) 3 ml INHALE QID PRN PRN Reason: Shortness Of Breath Amlodipine Besylate (Amlodipine Besylate 5 Mg Tablet) 5 mg PO DAILY [facility]; Protocol Last Admin: 03/31/21 07:43 Dose: 5 mg Documented by: Azithromycin (Azithromycin 500 Mg Tablet) 500 mg PO Q24H [facility] Last Admin: 03/30/21 23:47 Dose: 500 mg Documented by: Carvedilol (Carvedilol 3.125 Mg Tablet) 6.25 mg PO BID [facility]; Protocol Last Admin: 03/31/21 07:43 Dose: 6.25 mg Documented by: Dextrose (Dextrose 50 % 25 Gm/50 Ml Vial) 25 gm IVPUSH Q15M PRN; Protocol PRN Reason: per Hypoglycemia Standing Ord. Enoxaparin Sodium (Enoxaparin Sodium 40 Mg/0.4 Ml Syringe) 40 mg SUBCUT Q24H [facility] Last Admin: 03/30/21 23:46 Dose: 40 mg Documented by: Folic Acid (Folic Acid 1 Mg Tablet) 1 mg PO DAILY [facility] Last Admin: 03/31/21 07:43 Dose: 1 mg Documented by: Furosemide (Furosemide 40 Mg/4 Ml Vial) 40 mg IVPUSH DAILY [facility]; Protocol Last Admin: 03/31/21 07:42 Dose: 40 mg Documented by: Glucose (Glucose Gel 15 Gm Gel..Gram.) 15 gm PO Q15M PRN; Protocol PRN Reason: per Hypoglycemia Standing Ord. Insulin Human Lispro (Insulin Lispro 100 Unit/Ml 3 Ml Vial) 0 unit SUBCUT QIDACHS [facility]; Protocol Last Admin: 03/31/21 13:11 Dose: Not Given Documented by: Isosorbide Mononitrate (Isosorbide Mononitrate 30 Mg Tab.Er.24h) 30 mg PO DAILY [facility]; Protocol Last Admin: 03/31/21 07:43 Dose: 30 mg Documented by: Losartan Potassium (Losartan Potassium 50 Mg Tablet) 100 mg PO DAILY [facility]; Protocol Last Admin: 03/31/21 07:42 Dose: 100 mg Documented by: Meclizine HCl (Meclizine Hcl 25 Mg Tablet) 25 mg PO TID PRN PRN Reason: dizziness Melatonin (Melatonin 3 Mg Tablet) 6 mg PO BEDTIME PRN PRN Reason: Insomnia Methylprednisolone Sodium Succinate (Methylprednisolone Sod Succ 40 Mg/Ml Vial) 40 mg IVPUSH Q6H [facility] Last Admin: 03/31/21 11:51 Dose: 40 mg Documented by: Montelukast Sodium (Montelukast Sodium 10 Mg Tablet) 10 mg PO BEDTIME [facility] Morphine Sulfate (Morphine Sulfate 4 Mg/Ml Cartridge) 1 mg IVPUSH Q4H PRN; Protocol PRN Reason: Pain, SOB Non-Formulary Medication (Nicotine [Nicotrol]) 1 inhalation INHALE Q2H PRN PRN Reason: Smoking Cessation Omeprazole (Omeprazole 20 Mg Capsule.Dr) 20 mg PO DAILY [facility] Last Admin: 03/31/21 07:42 Dose: 20 mg Documented by: Pharmacy Consult (Consult Rx Perform Med Rec) 1 each MISCELLANE ONCE PRN PRN Reason: Consult order Quetiapine Fumarate (Quetiapine Fumarate 50 Mg Tablet) 50 mg PO BID [facility] Last Admin: 03/31/21 07:43 Dose: 50 mg Documented by: Senna (Sennosides 8.6 Mg Tablet) 17.2 mg PO BEDTIME PRN PRN Reason: Constipation Sertraline HCl (Sertraline Hcl 100 Mg Tablet) 200 mg PO DAILY [facility] Last Admin: 03/31/21 07:43 Dose: 200 mg Documented by: Sodium Chloride (0.9 % Sodium Chloride Flush 3 Ml Syringe) 3 ml IVFLUSH QSHIFT [facility] Last Admin: 03/31/21 07:15 Dose: Not Given Documented by: Tiotropium [place] (Tiotropium [place] 18 Mcg Cap.W.Dev) 1 puff INHALE DAILY [facility] Last Admin: 03/31/21 09:56 Dose: Not Given Documented by: Trazodone HCl (Trazodone Hcl 50 Mg Tablet) 50 mg PO BEDTIME PRN PRN Reason: Sleep Home Medications Medication Instructions Recorded Confirmed Last Taken Type trazodone 50 mg tablet 100 mg PO BEDTIME PRN 03/08/20 03/30/21 03/29/21 History ipratropium 0.5 mg-albuterol 3 mg 3 ml INHALATION QID PRN 02/15/21 03/30/21 03/30/21 History (2.5 mg base)/3 mL nebulization soln ipratropium 20 mcg-albuterol 100 1 puff INHALATION QID 03/30/21 03/30/21 03/30/21 History mcg/actuation mist for inhalation (Combivent Respimat) nicotine 10 mg inhalation 1 inh INHALATION Q2H PRN 03/30/21 03/30/21 03/30/21 History cartridge (Nicotrol) prednisone 5 mg tablet 1 tab PO DAILY 03/30/21 03/30/21 03/30/21 History Physical Exam Vital Signs: Vital Signs: Last Vital Signs Temp 98.4 F 03/31/21 08:22 Pulse 87 03/31/21 11:50 Resp 16 03/31/21 12:16 BP 129/106 H 03/31/21 11:50 Pulse Ox 96 03/31/21 11:50 Oxygen Flow Rate 4 03/30/21 10:40 Body Mass Index 29.8 Const: General: alert Neck: Neck: Yes normal visual inspection, Yes full ROM and Yes no lymphadenopathy Chest: Chest palpation & inspection: normal inspection of the chest Resp: Auscultation: crackles, rales and diminished lung sounds Cardio: Rate: regular rate Rhythm: regular rhythm Heart sounds: S1 normal heart sound present and S2 normal heart sound present GI: Palpation (GI): Soft to palpation and nontender Auscultation: normal bowel sounds Skin: General skin exam: rashes and/or lesions noted Results Laboratory Findings CBC and BMP: 03/31/21 08:07 03/31/21 08:07 ABG, PT/INR, D-dimer: PT/INR, D-dimer PT 11.6 SEC (9.9-13.0) 03/30/21 11:10 INR 1.0 (0.9-1.1) 03/30/21 11:10 Abnormal lab findings: Abnormal Labs 03/30/21 03/30/21 03/30/21 11:10 11:10 11:10 WBC RBC 4.05 L Hgb 9.5 L Hct 32.5 L MCV MCH 23.5 L MCHC 29.2 L RDW 16.7 H Neut % (Auto) 76.6 H Lymph % (Auto) 16.8 L Lymph # (Auto) Abs Immat Gran (auto) Absolute Neuts (auto) ABG pH at Pt Temp ABG pH (Temp Correct) ABG pO2 at Pt Temp ABG pO2 (Temp Correct ABG HCO3 Carbon Dioxide BUN 7 L D POC Glucose Random Glucose Alkaline Phosphatase 140 H Troponin I High Sens 20.2 H* B-Natriuretic Peptide 03/30/21 03/30/21 03/30/21 11:10 15:41 23:51 WBC RBC Hgb Hct MCV MCH MCHC RDW Neut % (Auto) Lymph % (Auto) Lymph # (Auto) Abs Immat Gran (auto) Absolute Neuts (auto) ABG pH at Pt Temp 7.47 H ABG pH (Temp Correct) 7.47 H ABG pO2 at Pt Temp 62 L ABG pO2 (Temp Correct 61 L ABG HCO3 33 H Carbon Dioxide BUN POC Glucose Random Glucose Alkaline Phosphatase Troponin I High Sens 27.9 H* B-Natriuretic Peptide 444 H 03/31/21 03/31/21 03/31/21 07:12 08:07 08:07 WBC 11.5 H RBC 3.94 L Hgb 9.4 L Hct 30.9 L MCV 78.4 L MCH 23.9 L MCHC 30.4 L RDW 16.9 H Neut % (Auto) 92.0 H Lymph % (Auto) 5.2 L Lymph # (Auto) 0.6 L Abs Immat Gran (auto) 0.05 H Absolute Neuts (auto) 10.5 H ABG pH at Pt Temp ABG pH (Temp Correct) ABG pO2 at Pt Temp ABG pO2 (Temp Correct ABG HCO3 Carbon Dioxide 30 H BUN POC Glucose 145 H Random Glucose 156 H Alkaline Phosphatase 149 H Troponin I High Sens B-Natriuretic Peptide 03/31/21 13:09 WBC RBC Hgb Hct MCV MCH MCHC RDW Neut % (Auto) Lymph % (Auto) Lymph # (Auto) Abs Immat Gran (auto) Absolute Neuts (auto) ABG pH at Pt Temp ABG pH (Temp Correct) ABG pO2 at Pt Temp ABG pO2 (Temp Correct ABG HCO3 Carbon Dioxide BUN POC Glucose 154 H Random Glucose Alkaline Phosphatase Troponin I High Sens B-Natriuretic Peptide Assessment and Plan (1) Acute and chronic respiratory failure with hypoxia: Status: Acute (2) CHF (congestive heart failure): Qualifiers: Heart failure type: diastolic Heart failure chronicity: chronic Nirmal lified Code(s): I50.32 - Chronic diastolic (congestive) heart failure Status: Acute (3) COPD exacerbation: Status: Acute (4) Pulmonary hypertension: Status: Acute (5) KELLIE (obstructive sleep apnea): Status: Acute The patient is presenting with worsening respiratory status. Based on her presentation and her CT scan of the chest it appears that she does have increased cardiac size with pulmonary hypertension and vascular congestion, ultimately affecting her respiratory status. Recommendations: -continue with diuresis as tolerated -will need an echocardiogram to address her LV and also her pulmonary hypertension -may benefit from a right and left cardiac catheterization at some point -decrease steroids to prednisone 40 mg when able -continue noninvasive ventilation to help with decreasing after alone and will help with diuresis, ultimately will transition to high-flow to continue with some positive airway pressure -outpatient sleep study to we established on PAP therapy Procedures Date of Service Date of Service: 03/31/21
[2021-03-31 13:31] LABS: Venous Blood Gas Refer to POC result
[2021-03-31 13:32] LABS: VBG Base Excess 8.2 mmol/L; VBG HCO3 33 mmol/L (22-26); VBG pCO2 46 mmHg; VBG pH 7.46 (7.32-7.43); VBG pO2 47 mmHg
--- NOTE | 2021-03-31 14:37 | HO.PM.IMPN ---
Subjective Subjective Date of Service: 03/31/21 Interval History: Being followed for shortness of breath and congestive heart failure, feeling better since admission, complaining of difficulty tolerating BiPAP, denies fever chills, noted to have finger oximetry in 70s on high-flow oxygen therefore placed back on BiPAP. Review of Systems General no headache, no dizziness no fever chills. CVS no chest pain, no palpitation. Respiratory no cough , shortness of breath with exertion and orthopnea Gastrointestinal no nausea, no vomiting, no abdominal pain Review of Systems: Yes all other systems are reviewed and are negative Physical Exam Vital Signs: Vital Signs: Last Vital Signs Temp 98.4 F 03/31/21 08:22 Pulse 87 03/31/21 11:50 Resp 16 03/31/21 12:16 BP 129/106 H 03/31/21 11:50 Pulse Ox 96 03/31/21 11:50 Oxygen Flow Rate 4 03/30/21 10:40 Body Mass Index 29.8 General awake alert x3, no acute distress. Neck no JVD. CVS regular rate rhythm, Respiratory diminished breath sound, lungs bibasilar crackles, no wheeze, no use of accessory muscles, no respiratory distress Gastrointestinal abdomen soft, nontender, bowel sounds audible, no guarding , no rigidity. Extremities no edema. Neuro nonfocal Skin no rash Psych appropriate affect Objective Data Active Medications Acetaminophen (Acetaminophen 325 Mg Tablet) 650 mg PO Q6H PRN PRN Reason: Pain, Mild (Pain Scale 1-3) Albuterol/Ipratropium (Albuterol/Iprat 2.5/0.5mg 3 Ml Ampul.Neb) 3 ml INHALE RQ4H WHILE AWAKE PRN PRN Reason: Shortness of Breath/Wheezing Last Admin: 03/31/21 08:29 Dose: 3 ml Documented by: SHARON Albuterol/Ipratropium (Albuterol/Iprat 2.5/0.5mg 3 Ml Ampul.Neb) 3 ml INHALE QID PRN PRN Reason: Shortness Of Breath Amlodipine Besylate (Amlodipine Besylate 5 Mg Tablet) 5 mg PO DAILY [facility]; Protocol Last Admin: 03/31/21 07:43 Dose: 5 mg Documented by: SHIRA Azithromycin (Azithromycin 500 Mg Tablet) 500 mg PO Q24H [facility] Last Admin: 03/30/21 23:47 Dose: 500 mg Documented by: CAROLE Carvedilol (Carvedilol 3.125 Mg Tablet) 6.25 mg PO BID [facility]; Protocol Last Admin: 03/31/21 07:43 Dose: 6.25 mg Documented by: SHIRA Dextrose (Dextrose 50 % 25 Gm/50 Ml Vial) 25 gm IVPUSH Q15M PRN; Protocol PRN Reason: per Hypoglycemia Standing Ord. Enoxaparin Sodium (Enoxaparin Sodium 40 Mg/0.4 Ml Syringe) 40 mg SUBCUT Q24H [facility] Last Admin: 03/30/21 23:46 Dose: 40 mg Documented by: CAROLE Folic Acid (Folic Acid 1 Mg Tablet) 1 mg PO DAILY [facility] Last Admin: 03/31/21 07:43 Dose: 1 mg Documented by: SHIRA Furosemide (Furosemide 40 Mg/4 Ml Vial) 40 mg IVPUSH DAILY [facility]; Protocol Last Admin: 03/31/21 07:42 Dose: 40 mg Documented by: SHIRA Glucose (Glucose Gel 15 Gm Gel..Gram.) 15 gm PO Q15M PRN; Protocol PRN Reason: per Hypoglycemia Standing Ord. Insulin Human Lispro (Insulin Lispro 100 Unit/Ml 3 Ml Vial) 0 unit SUBCUT QIDACHS [facility]; Protocol Last Admin: 03/31/21 13:11 Dose: Not Given Documented by: SHIRA Non-Admin Reason: No Insulin Coverage Comments: pt not eating Isosorbide Mononitrate (Isosorbide Mononitrate 30 Mg Tab.Er.24h) 30 mg PO DAILY [facility]; Protocol Last Admin: 03/31/21 07:43 Dose: 30 mg Documented by: SHIRA Losartan Potassium (Losartan Potassium 50 Mg Tablet) 100 mg PO DAILY [facility]; Protocol Last Admin: 03/31/21 07:42 Dose: 100 mg Documented by: SHIRA Meclizine HCl (Meclizine Hcl 25 Mg Tablet) 25 mg PO TID PRN PRN Reason: dizziness Melatonin (Melatonin 3 Mg Tablet) 6 mg PO BEDTIME PRN PRN Reason: Insomnia Methylprednisolone Sodium Succinate (Methylprednisolone Sod Succ 40 Mg/Ml Vial) 40 mg IVPUSH Q6H [facility] Last Admin: 03/31/21 11:51 Dose: 40 mg Documented by: SHIRA Montelukast Sodium (Montelukast Sodium 10 Mg Tablet) 10 mg PO BEDTIME [facility] Morphine Sulfate (Morphine Sulfate 4 Mg/Ml Cartridge) 1 mg IVPUSH Q4H PRN; Protocol PRN Reason: Pain, SOB Non-Formulary Medication (Nicotine [Nicotrol]) 1 inhalation INHALE Q2H PRN PRN Reason: Smoking Cessation Omeprazole (Omeprazole 20 Mg Capsule.Dr) 20 mg PO DAILY [facility] Last Admin: 03/31/21 07:42 Dose: 20 mg Documented by: SHIRA Pharmacy Consult (Consult Rx Perform Med Rec) 1 each MISCELLANE ONCE PRN PRN Reason: Consult order Quetiapine Fumarate (Quetiapine Fumarate 50 Mg Tablet) 50 mg PO BID [facility] Last Admin: 03/31/21 07:43 Dose: 50 mg Documented by: SHIRA Senna (Sennosides 8.6 Mg Tablet) 17.2 mg PO BEDTIME PRN PRN Reason: Constipation Sertraline HCl (Sertraline Hcl 100 Mg Tablet) 200 mg PO DAILY [facility] Last Admin: 03/31/21 07:43 Dose: 200 mg Documented by: SHIRA Sodium Chloride (0.9 % Sodium Chloride Flush 3 Ml Syringe) 3 ml IVFLUSH QSHIFT [facility] Last Admin: 03/31/21 07:15 Dose: Not Given Documented by: SHIRA Non-Admin Reason: Patient Asleep Tiotropium [place] (Tiotropium [place] 18 Mcg Cap.W.Dev) 1 puff INHALE DAILY [facility] Last Admin: 03/31/21 09:56 Dose: Not Given Documented by: SHIRA Non-Admin Reason: Med Not Available Trazodone HCl (Trazodone Hcl 50 Mg Tablet) 50 mg PO BEDTIME PRN PRN Reason: Sleep Labs CBC & Chem 7: 03/31/21 08:07 03/31/21 08:07 Labs: Laboratory Results - last 24 hr 03/30/21 03/30/21 03/31/21 15:41 23:51 07:12 MCV MCH MCHC RDW Plt Count MPV Immature Gran % (Auto) Neut % (Auto) Lymph % (Auto) Phelps % (Auto) Eos % (Auto) Baso % (Auto) Lymph # (Auto) [place] # (Auto) Eos # (Auto) Baso # (Auto) Abs Immat Gran (auto) Absolute Neuts (auto) Absolute Nucleated RBC Nucleated RBC % (auto) Smear Tech's Comments O2 Saturation 89.0 ABG pH at Pt Temp 7.47 H ABG pH (Temp Correct) 7.47 H ABG pCO2 at Pt Temp 45 ABG pCO2 (Temp Corrct 45 ABG pO2 at Pt Temp 62 L ABG pO2 (Temp Correct 61 L ABG HCO3 33 H ABG Base Excess (Actual) 8.9 VBG pH VBG pCO2 VBG pO2 VBG HCO3 VBG O2 Saturation VBG Base Excess Anion Gap Estim Creat Clear Calc Estimated GFR POC Glucose 145 H Random Glucose Calcium Total Bilirubin AST ALT Alkaline Phosphatase Troponin I High Sens 27.9 H* Total Protein Albumin 03/31/21 03/31/21 03/31/21 08:07 08:07 13:09 MCV 78.4 L MCH 23.9 L MCHC 30.4 L RDW 16.9 H Plt Count 174 MPV 9.6 Immature Gran % (Auto) 0.4 Neut % (Auto) 92.0 H Lymph % (Auto) 5.2 L [place] % (Auto) 2.4 Eos % (Auto) 0.0 Baso % (Auto) 0.0 Lymph # (Auto) 0.6 L [place] # (Auto) 0.3 Eos # (Auto) 0.0 Baso # (Auto) 0.0 Abs Immat Gran (auto) 0.05 H Absolute Neuts (auto) 10.5 H Absolute Nucleated RBC 0.000 Nucleated RBC % (auto) 0.0 Smear Tech's Comments VERIFIED O2 Saturation ABG pH at Pt Temp ABG pH (Temp Correct) ABG pCO2 at Pt Temp ABG pCO2 (Temp Corrct ABG pO2 at Pt Temp ABG pO2 (Temp Correct ABG HCO3 ABG Base Excess (Actual) VBG pH VBG pCO2 VBG pO2 VBG HCO3 VBG O2 Saturation VBG Base Excess Anion Gap 14 Estim Creat Clear Calc 60.9 Estimated GFR > 60 POC Glucose 154 H Random Glucose 156 H Calcium 9.6 D Total Bilirubin 0.4 AST 14 ALT 10 Alkaline Phosphatase 149 H Troponin I High Sens Total Protein 7.4 Albumin 4.1 03/31/21 13:26 MCV MCH MCHC RDW Plt Count MPV Immature Gran % (Auto) Neut % (Auto) Lymph % (Auto) [place] % (Auto) Eos % (Auto) Baso % (Auto) Lymph # (Auto) [place] # (Auto) Eos # (Auto) Baso # (Auto) Abs Immat Gran (auto) Absolute Neuts (auto) Absolute Nucleated RBC Nucleated RBC % (auto) Smear Tech's Comments O2 Saturation ABG pH at Pt Temp ABG pH (Temp Correct) ABG pCO2 at Pt Temp ABG pCO2 (Temp Corrct ABG pO2 at Pt Temp ABG pO2 (Temp Correct ABG HCO3 ABG Base Excess (Actual) VBG pH 7.46 H VBG pCO2 46 VBG pO2 47 VBG HCO3 33 H VBG O2 Saturation 74.0 VBG Base Excess 8.2 Anion Gap Estim Creat Clear Calc Estimated GFR POC Glucose Random Glucose Calcium Total Bilirubin AST ALT Alkaline Phosphatase Troponin I High Sens Total Protein Albumin Microbiology Microbiology Results: Microbiology 03/30/21 11:55 Blood Culture - Preliminary Blood - Venous No growth after 24 hours. 03/30/21 11:10 Blood Culture - Preliminary Blood - Venous No growth after 24 hours. Assessment and Plan (1) KELLIE (obstructive sleep apnea): Status: Acute (2) Pulmonary hypertension: Status: Acute (3) COPD exacerbation: Status: Acute (4) Acute and chronic respiratory failure with hypoxia: Status: Acute (5) Essential hypertension: Status: Acute Assessment and Plan: 60-year-old female with a past medical history of hypertension, hyperlipidemia, diabetes, CAD, CHF with EF of 30%, COPD on 3 L of home oxygen 24/11, tobacco dependence, mitral regurgitation, anxiety, depression, KELLIE noncompliant with CPAP presented to the hospital today with a chief complaint of shortness of breath.? Acute on chronic hypoxic respiratory failure Due to acute congestive heart failure with reduced EF ,pulmonary hypertension and copd exac On arrival to ER noted to be in mild distress, was placed on CPAP briefly did well, seen by server software engineer and was recommended IV diuretics and nitro patch symptoms improved patient placed on high-flow oxygen but noted to desaturate to mid 70s therefore placed back on BiPAP, re-evaluated again by server software engineer and recommend to DC BiPAP and to have better blood pressure control Repeat VBG after BiPAP showed improvement in oxygenation, will DC BiPAP place patient on oxygen to keep finger oximetry > 92 Will continue iv lasix, Coreg, will add Aldactone Troponin elevated but flat, BNP 444,showed no PE Follow daily weight strict input and output, follow BMP and BNP Obtain echocardiogram Seen by Cardiology they recommend ischemic workup Mild COPD exacerbation Will wean steroid, continue updraft treatment Seen by Dr. Winslow , he agrees with diuretics, recommend to wean steroids and BiPAP Obstructive sleep apnea Previously was on CPAP but lost her machine, will need outpatient sleep study Will add CPAP at night and as needed L1 compression fracture, CT scan showed mild retropulsion, patient denies worsening back pain, will obtain MRI L spine if noted to have worsening back pain or any neurological deficit. DVT prophylaxis: ? Lovenox Code status: Full code Quality Stroke Does the patient have a stroke diagnosis?: No VTE Prior VTE?: No VTE Risk Level:: Medical - moderate - high VTE Device Contraindication: Treatment Not Indicated VTE Drug Contraindication: N/A - Med Ordered
--- NOTE | 2021-03-31 15:25 | MHC.CM.PN ---
Pt on BIPAP making conversation difficult: pt gave CM permission to contact her live in [employer] and verified HCP Chanelle for information: per Chanelle, pt receives 1 hour of [employer] assistance daily, has [employer] for home O2, has a walker, commode and working diabetic management supplies. Pt had just been to [facility] in February where she received COVID vax #1. Number 2 not given yet. Will refer pt back to [facility] should she require STR as well as to [facility] for skilled RN visits. CM to follow
[2021-03-31] MEDS: Spironolactone 25 MG TABLET 12.5 MG PO (16:01)
[2021-03-31 18:56] LABS: Glucose, Whole Blood 128 mg/dL (60-115)
--- NOTE | 2021-03-31 19:12 | PC.NURSE ---
BP 186/117 Hospitalist notified
[2021-03-31 21:43] LABS: Glucose, Whole Blood 176 mg/dL (60-115)
[2021-03-31] MEDS: Insulin Lispro 100 UNIT/ML 3 ML VIAL SUBCUT (21:56)
[2021-03-31] MEDS: Montelukast Sodium 10 MG TABLET PO (21:56)
[2021-04-01] VITALS (7 sets, daily range): BP systolic 138–170; BP diastolic 74–97; PULSE 76–94; RESP 15–22; TEMP 35.5–36.8; O2SAT 92–99
[2021-04-01] MEDS: Azithromycin 500 MG TABLET PO ×2 (00:02→22:35)
--- NOTE | 2021-04-01 00:06 | PC.NURSE ---
[facility]
[2021-04-01 07:59] LABS: Glucose, Whole Blood 142 mg/dL (60-115)
[2021-04-01] MEDS: 0.9 % Sodium Chloride Flush 3 ML SYRINGE IVFLUSH ×2 (09:06→15:47)
[2021-04-01] MEDS: Isosorbide Mononitrate 30 MG TAB.ER.24H PO (09:07)
[2021-04-01] MEDS: Folic Acid 1 MG TABLET PO (09:07)
[2021-04-01] MEDS: Omeprazole 20 MG CAPSULE.DR PO (09:07)
[2021-04-01] MEDS: carvediloL 3.125 MG TABLET 6.25 MG PO ×2 (09:07→20:37)
[2021-04-01] MEDS: Sertraline HCL 100 MG TABLET 200 MG PO (09:07)
[2021-04-01] MEDS: QUEtiapine Fumarate 50 MG TABLET PO ×2 (09:07→20:37)
[2021-04-01] MEDS: Losartan Potassium 50 MG TABLET 100 MG PO (09:08)
[2021-04-01] MEDS: Spironolactone 25 MG TABLET 12.5 MG PO (09:08)
[2021-04-01] MEDS: amLODIPine Besylate 5 MG TABLET PO ×2 (09:08→16:43)
[2021-04-01] MEDS: methylPREDNISolone Sod Succ 40 MG/ML VIAL IVPUSH ×2 (09:09→22:35)
[2021-04-01] MEDS: Furosemide 40 MG/4 ML VIAL IVPUSH (09:09)
--- NOTE | 2021-04-01 09:33 | PM.PNPUL ---
Subjective Subjective Date of Service: 04/01/21 Principal diagnosis: copd excarbation Objective Data Labs CBC & Chem 7: 03/31/21 08:07 03/31/21 08:07 Labs: Laboratory Results - last 24 hr 03/31/21 03/31/21 03/31/21 13:09 13:26 18:52 VBG pH 7.46 H VBG pCO2 46 VBG pO2 47 VBG HCO3 33 H VBG O2 Saturation 74.0 VBG Base Excess 8.2 POC Glucose 154 H 128 H 03/31/21 04/01/21 21:39 07:55 VBG pH VBG pCO2 VBG pO2 VBG HCO3 VBG O2 Saturation VBG Base Excess POC Glucose 176 H 142 H Microbiology Microbiology Results: Microbiology 03/30/21 11:55 Blood - Venous Blood Culture - Preliminary No growth after 24 hours. 03/30/21 11:10 Blood - Venous Blood Culture - Preliminary No growth after 24 hours. Physical Exam Vital Signs: Vital Signs: Last Vital Signs Temp 96 F L 04/01/21 07:55 Pulse 86 04/01/21 07:55 Resp 22 H 04/01/21 07:55 BP 170/80 H 04/01/21 07:55 Pulse Ox 99 04/01/21 07:55 Oxygen Flow Rate 4 03/30/21 10:40 Body Mass Index 29.8 Assessment and Plan Time Spent With Patient Time: Total time spent is greater than 50% in coordination of care (as documented) at patient's floor/unit and/or counseling patient: Progress Note: Quality Stroke Does the patient have a stroke diagnosis?: No
--- NOTE | 2021-04-01 11:00 | P.PNCA_ITS ---
Subjective Subjective Date of Service: 04/01/21 Principal diagnosis: copd excarbation Interval history: States that she is feeling better. However, not clear if she h as moved around at all. Review of Systems Review of Systems Yes all other systems are reviewed and are negative Cardiovascular: Reports as per HPI, Reports no additional cardiovascular complaints, Denies acrocyanosis, Denies cool extremities, Denies painful fingertips, Denies chest pain, Denies chest pain at rest, Denies diaphoresis, Denies syncope, Denies irregular heart rhythm, Denies claudication, Denies leg edema, Denies lightheadedness, Denies palpitations and Reports dyspnea Respiratory: Reports dyspnea Denies syncope Endocrine: Denies palpitations Physical Exam Vital Signs: Last Vital Signs Temp 96 F L 04/01/21 07:55 Pulse 86 04/01/21 07:55 Resp 22 H 04/01/21 07:55 BP 170/80 H 04/01/21 07:55 Pulse Ox 99 04/01/21 07:55 Oxygen Flow Rate 4 03/30/21 10:40 Body Mass Index 29.8 Const General: cooperative and no acute distress [facility] Other: Unremarkable Neck Neck: Yes normal visual inspection Chest Chest palpation & inspection: normal inspection of the chest Resp Auscultation: crackles (few basal crackles) Cardio Jugular venous distension: no JVD Palpation: normal PMI Heart sounds: S1 normal heart sound present, S2 normal heart sound present, no gallops, no murmurs and no rubs GI Palpation (GI): Soft to palpation Back/Spine/Pelvis Other: unremarkable Skin General skin exam: no rashes or lesions noted Neuro Cranial nerves: Yes Other cranial nerve findings present Extrem General: Yes no clubbing, cyanosis or edema Psych Mental Status: other Objective Labs and Meds Result diagrams: 03/31/21 08:07 03/31/21 08:07 Lab results: Laboratory Results - last 24 hr 03/31/21 03/31/21 03/31/21 13:09 13:26 18:52 VBG pH 7.46 H VBG pCO2 46 VBG pO2 47 VBG HCO3 33 H VBG O2 Saturation 74.0 VBG Base Excess 8.2 POC Glucose 154 H 128 H 03/31/21 04/01/21 21:39 07:55 VBG pH VBG pCO2 VBG pO2 VBG HCO3 VBG O2 Saturation VBG Base Excess POC Glucose 176 H 142 H Progress Note: A&P Assessment and plan (1) Acute and chronic respiratory failure with hypoxia: Status: Acute (2) Acute on chronic systolic (congestive) heart failure: Status: Acute Assessment and Plan: Recent echocardiogram with LVEF of 30-35% and global hypokinesis. There is moderate mitral regurgitation and moderate pulmonary hypertension. LVEF similar to before. Chest CT scan reviewed. There is comment on pulmonary hypertension as well as reflux of contrast into hepatic veins suggesting increased right- sided pressures. Additionally, emphysematous changes with bronchial wall thickening and was psych attenuation suggesting ever atypical infectious or inflammatory process like bronchitis but there is no focal consolidation. Cardiac BNP elevated at 444; variable numbers in the past and overall not too different from before. Overall, probably primary pulmonary pathology leading to secondary right heart failure. However, she also has LV dysfunction and hence be multifactorial s ymptoms. Currently, she is on carvedilol, losartan, isosorbide mononitrate. IV furosemide 40 mg daily, spironolactone and IV steroids. Clinically not looking much volume overloaded. Renal function seems stable. May consider switching to oral diuretics tomorrow. With regard to ischemia workup, there is a prior nuclear perfusion imaging from 2018 that showed normal perfusion (studies prior to that - 2012, 2010 also with normal perfusion). Further testing can be followed up as an outpatient. BP is still high- can increase Amlodipine to 10mg daily. Fall Risk Details Current Medications: Current Medications Acetaminophen (Acetaminophen 325 Mg Tablet) 650 mg PO Q6H PRN PRN Reason: Pain, Mild (Pain Scale 1-3) Albuterol/Ipratropium (Albuterol/Iprat 2.5/0.5mg 3 Ml Ampul.Neb) 3 ml INHALE RQ4H WHILE AWAKE PRN PRN Reason: Shortness of Breath/Wheezing Last Admin: 03/31/21 08:29 Dose: 3 ml Documented by: Albuterol/Ipratropium (Albuterol/Iprat 2.5/0.5mg 3 Ml Ampul.Neb) 3 ml INHALE QID PRN PRN Reason: Shortness Of Breath Amlodipine Besylate (Amlodipine Besylate 5 Mg Tablet) 5 mg PO DAILY [facility]; Protocol Last Admin: 04/01/21 09:08 Dose: 5 mg Documented by: Azithromycin (Azithromycin 500 Mg Tablet) 500 mg PO Q24H [facility] Last Admin: 04/01/21 00:02 Dose: 500 mg Documented by: Carvedilol (Carvedilol 3.125 Mg Tablet) 6.25 mg PO BID [facility]; Protocol Last Admin: 04/01/21 09:07 Dose: 6.25 mg Documented by: Dextrose (Dextrose 50 % 25 Gm/50 Ml Vial) 25 gm IVPUSH Q15M PRN; Protocol PRN Reason: per Hypoglycemia Standing Ord. Enoxaparin Sodium (Enoxaparin Sodium 40 Mg/0.4 Ml Syringe) 40 mg SUBCUT Q24H [facility] Last Admin: 04/01/21 00:02 Dose: Not Given Documented by: Folic Acid (Folic Acid 1 Mg Tablet) 1 mg PO DAILY [facility] Last Admin: 04/01/21 09:07 Dose: 1 mg Documented by: Furosemide (Furosemide 40 Mg/4 Ml Vial) 40 mg IVPUSH DAILY [facility]; Protocol Last Admin: 04/01/21 09:09 Dose: 40 mg Documented by: Glucose (Glucose Gel 15 Gm Gel..Gram.) 15 gm PO Q15M PRN; Protocol PRN Reason: per Hypoglycemia Standing Ord. Insulin Human Lispro (Insulin Lispro 100 Unit/Ml 3 Ml Vial) 0 unit SUBCUT QIDACHS [facility]; Protocol Last Admin: 04/01/21 08:41 Dose: Not Given Documented by: Isosorbide Mononitrate (Isosorbide Mononitrate 30 Mg Tab.Er.24h) 30 mg PO DAILY [facility]; Protocol Last Admin: 04/01/21 09:07 Dose: 30 mg Documented by: Losartan Potassium (Losartan Potassium 50 Mg Tablet) 100 mg PO DAILY [facility]; Protocol Last Admin: 04/01/21 09:08 Dose: 100 mg Documented by: Meclizine HCl (Meclizine Hcl 25 Mg Tablet) 25 mg PO TID PRN PRN Reason: dizziness Melatonin (Melatonin 3 Mg Tablet) 6 mg PO BEDTIME PRN PRN Reason: Insomnia Methylprednisolone Sodium Succinate (Methylprednisolone Sod Succ 40 Mg/Ml Vial) 40 mg IVPUSH Q12H [facility] Last Admin: 04/01/21 09:09 Dose: 40 mg Documented by: Montelukast Sodium (Montelukast Sodium 10 Mg Tablet) 10 mg PO BEDTIME [facility] Last Admin: 03/31/21 21:56 Dose: 10 mg Documented by: Morphine Sulfate (Morphine Sulfate 4 Mg/Ml Cartridge) 1 mg IVPUSH Q4H PRN; Protocol PRN Reason: Pain, SOB Non-Formulary Medication (Nicotine [Nicotrol]) 1 inhalation INHALE Q2H PRN PRN Reason: Smoking Cessation Omeprazole (Omeprazole 20 Mg Capsule.Dr) 20 mg PO DAILY [facility] Last Admin: 04/01/21 09:07 Dose: 20 mg Documented by: Pharmacy Consult (Consult Rx Perform Med Rec) 1 each MISCELLANE ONCE PRN PRN Reason: Consult order Quetiapine Fumarate (Quetiapine Fumarate 50 Mg Tablet) 50 mg PO BID [facility] Last Admin: 04/01/21 09:07 Dose: 50 mg Documented by: Senna (Sennosides 8.6 Mg Tablet) 17.2 mg PO BEDTIME PRN PRN Reason: Constipation Sertraline HCl (Sertraline Hcl 100 Mg Tablet) 200 mg PO DAILY [facility] Last Admin: 04/01/21 09:07 Dose: 200 mg Documented by: Sodium Chloride (0.9 % Sodium Chloride Flush 3 Ml Syringe) 3 ml IVFLUSH QSHIFT [facility] Last Admin: 04/01/21 09:06 Dose: 3 ml Documented by: Spironolactone (Spironolactone 25 Mg Tablet) 12.5 mg PO DAILY [facility]; Protocol Last Admin: 04/01/21 09:08 Dose: 12.5 mg Documented by: Tiotropium [place] (Tiotropium [place] 18 Mcg Cap.W.Dev) 1 puff INHALE DAILY [facility] Last Admin: 04/01/21 07:50 Dose: Not Given Documented by: Trazodone HCl (Trazodone Hcl 50 Mg Tablet) 50 mg PO BEDTIME PRN PRN Reason: Sleep Time Spent With Patient Time: Total time spent is greater than 50% in coordination of care (as documented) at patient's floor/unit and/or counseling patient: Time with patient: less than 15 minutes Progress Note: Quality Stroke Does the patient have a stroke diagnosis?: No Procedures Date of Service Date of Service: 04/01/21
[2021-04-01 11:19] LABS: Glucose, Whole Blood 168 mg/dL (60-115)
[2021-04-01] MEDS: Insulin Lispro 100 UNIT/ML 3 ML VIAL SUBCUT ×3 (12:41→20:38)
--- NOTE | 2021-04-01 13:17 | PM.PNPUL ---
Subjective Subjective Date of Service: 04/01/21 Principal diagnosis: copd excarbation /Respiratory Failure Interval history: This 60 years old female is seen for pulmonary follow-up. Respiratory distress is less than yesterday, She did not use the BiPAP. Currently on high-flow O2 at 45 L/minute. Patient is the awake but does not converse readily. She does indicate that she does not have much respiratory distress at this time. Denies fever chills, or any chest pain. Objective Data Labs CBC & Chem 7: 03/31/21 08:07 03/31/21 08:07 Labs: Laboratory Results - last 24 hr 03/31/21 03/31/21 03/31/21 13:26 18:52 21:39 VBG pH 7.46 H VBG pCO2 46 VBG pO2 47 VBG HCO3 33 H VBG O2 Saturation 74.0 VBG Base Excess 8.2 POC Glucose 128 H 176 H 04/01/21 04/01/21 07:55 11:01 VBG pH VBG pCO2 VBG pO2 VBG HCO3 VBG O2 Saturation VBG Base Excess POC Glucose 142 H 168 H Microbiology Microbiology Results: Microbiology 03/30/21 11:55 Blood - Venous Blood Culture - Preliminary No growth after 24 hours. 03/30/21 11:10 Blood - Venous Blood Culture - Preliminary No growth after 24 hours. Review of Systems Review of Systems Yes Unobtainable due to mental condition Physical Exam Vital Signs: Vital Signs: Last Vital Signs Temp 97 F 04/01/21 11:01 Pulse 94 04/01/21 11:01 Resp 22 H 04/01/21 11:01 BP 168/74 H 04/01/21 11:01 Pulse Ox 93 04/01/21 11:01 Oxygen Flow Rate 4 03/30/21 10:40 Body Mass Index 29.8 Const: General: no acute distress, awake and patient obtunded Orientation/consciousness: patient obtunded HENMT: Head: Yes normal to inspection General nose exam: No nasal polyps present and No nasal discharge present Face and sinus: Yes sinuses nontender Mouth: oropharynx normal Throat: Yes posterior oropharynx normal Eyes: General: appearance normal, both eyes and all related structures Neck: Neck: Yes normal visual inspection, Yes no lymphadenopathy, Yes trachea midline and Yes no JVD Thyroid: Thyroid normal Chest: Chest palpation & inspection: normal inspection of the chest, normal palpation of entire chest wall and no tenderness Resp: Other: Breath sounds are distant but equal on both sides, with prolonged expiratory phase. She has a few crepitations over the basilar areas, no wheezes. Cardio: Palpation: normal PMI Rate: regular rate Rhythm: regular rhythm Heart sounds: no gallops and no murmurs GI: Palpation (GI): Soft to palpation, nontender, No hepatosplenomegaly present and no masses Auscultation: normal bowel sounds Back/Spine/Pelvis: Thoracic/Lumbar Spine: thoracic and lumbar spine normal to inspection and thoraco-lumbar ROM limited Skin: General skin exam: no rashes or lesions noted Neuro: General: No gait normal (Non ambulatory at this time), no focal motor deficits and patient obtunded Cranial nerves: Yes CN's II-XII intact bilaterally Extrem: General: Yes normal to inspection, Yes no clubbing, cyanosis or edema and Yes no calf tenderness Psych: Mental Status: other (Patient is somewhat obtunded and converse much at this time.) Procedures Date of Service Date of Service: 04/01/21 Assessment and Plan Assessment and plan (1) KELLIE (obstructive sleep apnea): Problem details: Patient is known to have obstructive sleep apnea but she has been absolutely non compliant to use CPAP. Status: Acute (2) Pulmonary hypertension: Problem details: Pulmonary hypertension, multi factorial, contributed by congestive heart failure ,untreated EKLLIE and also by COPD with chronic respiratory failure. Status: Acute (3) COPD exacerbation: Problem details: Patient has chronic obstructive pulmonary disease with a component of interstitial lung disease. At present she has acute exacerbation. Continue to treat with IV Solu-Medrol, DuoNeb updraft , and O2. Status: Acute (4) Acute and chronic respiratory failure with hypoxia: Problem details: Patient has acute on chronic respiratory failure mainly in the form of hypoxic respiratory distress. Venous pCO2 is 46, so does not have any significant CO2 retention. TX: May slowly wean her off the high-flow O2 and use nasal cannula , goal is to keep O2 sat above 92%. Status: Acute Time Spent With Patient Time: Total time spent is greater than 50% in coordination of care (as documented) at patient's floor/unit and/or counseling patient: Time with patient: 15 - 24 minutes Progress Note: Quality Stroke Does the patient have a stroke diagnosis?: No
--- NOTE | 2021-04-01 15:51 | P.PNIM_ITS ---
Subjective Subjective Date of Service: 04/01/21 Interval History: With being followed for acute hypoxic respiratory failure, offers no acute complaints this morning complaining of cough bringing up thick phlegm denies fever chills admits to smoking 5 cigarettes a day Review of Systems General no headache, no dizziness no fever chills.? CVS no chest pain, no palpitation.? Respiratory productive cough ,no shortness of breath with exertion Gastrointestinal no nausea, no vomiting, no abdominal pain no urinary urgency, no frequency Review of Systems: Yes all other systems are reviewed and are negative Physical Exam Vital Signs: Vital Signs: Last Vital Signs Temp 97.9 F 04/01/21 15:47 Pulse 90 04/01/21 15:47 Resp 20 04/01/21 15:47 BP 150/92 H 04/01/21 15:47 Pulse Ox 92 04/01/21 15:47 Oxygen Flow Rate 4 03/30/21 10:40 Body Mass Index 29.8 General awake alert x3, no acute distress.? Neck no JVD. CVS? regular rate rhythm, Respiratory diminished breath sound, lungs bibasilar crackles, no wheeze, no use of accessory muscles, no respiratory distress Gastrointestinal abdomen soft, nontender, bowel sounds audible, no guarding , no rigidity. Extremities no edema. Neuro nonfocal Skin no rash Psych appropriate affect Objective Data Active Medications Acetaminophen (Acetaminophen 325 Mg Tablet) 650 mg PO Q6H PRN PRN Reason: Pain, Mild (Pain Scale 1-3) Albuterol/Ipratropium (Albuterol/Iprat 2.5/0.5mg 3 Ml Ampul.Neb) 3 ml INHALE RQ4H WHILE AWAKE PRN PRN Reason: Shortness of Breath/Wheezing Last Admin: 03/31/21 08:29 Dose: 3 ml Documented by: SHARON Albuterol/Ipratropium (Albuterol/Iprat 2.5/0.5mg 3 Ml Ampul.Neb) 3 ml INHALE QID PRN PRN Reason: Shortness Of Breath Amlodipine Besylate (Amlodipine Besylate 5 Mg Tablet) 5 mg PO DAILY [facility]; Protocol Last Admin: 04/01/21 09:08 Dose: 5 mg Documented by: JULIA Azithromycin (Azithromycin 500 Mg Tablet) 500 mg PO Q24H [facility] Last Admin: 04/01/21 00:02 Dose: 500 mg Documented by: JUVE Carvedilol (Carvedilol 3.125 Mg Tablet) 6.25 mg PO BID [facility]; Protocol Last Admin: 04/01/21 09:07 Dose: 6.25 mg Documented by: JULIA Dextrose (Dextrose 50 % 25 Gm/50 Ml Vial) 25 gm IVPUSH Q15M PRN; Protocol PRN Reason: per Hypoglycemia Standing Ord. Enoxaparin Sodium (Enoxaparin Sodium 40 Mg/0.4 Ml Syringe) 40 mg SUBCUT Q24H [facility] Last Admin: 04/01/21 00:02 Dose: Not Given Documented by: JUVE Non-Admin Reason: Patient Refused Folic Acid (Folic Acid 1 Mg Tablet) 1 mg PO DAILY [facility] Last Admin: 04/01/21 09:07 Dose: 1 mg Documented by: JULIA Furosemide (Furosemide 40 Mg/4 Ml Vial) 40 mg IVPUSH DAILY [facility]; Protocol Last Admin: 04/01/21 09:09 Dose: 40 mg Documented by: JULIA Glucose (Glucose Gel 15 Gm Gel..Gram.) 15 gm PO Q15M PRN; Protocol PRN Reason: per Hypoglycemia Standing Ord. Insulin Human Lispro (Insulin Lispro 100 Unit/Ml 3 Ml Vial) 0 unit SUBCUT QIDACHS [facility]; Protocol Last Admin: 04/01/21 12:41 Dose: 2 unit Documented by: JULIA Isosorbide Mononitrate (Isosorbide Mononitrate 30 Mg Tab.Er.24h) 30 mg PO DAILY [facility]; Protocol Last Admin: 04/01/21 09:07 Dose: 30 mg Documented by: JUILA Losartan Potassium (Losartan Potassium 50 Mg Tablet) 100 mg PO DAILY [facility]; Protocol Last Admin: 04/01/21 09:08 Dose: 100 mg Documented by: JULIA Meclizine HCl (Meclizine Hcl 25 Mg Tablet) 25 mg PO TID PRN PRN Reason: dizziness Melatonin (Melatonin 3 Mg Tablet) 6 mg PO BEDTIME PRN PRN Reason: Insomnia Methylprednisolone Sodium Succinate (Methylprednisolone Sod Succ 40 Mg/Ml Vial) 40 mg IVPUSH Q12H [facility] Last Admin: 04/01/21 09:09 Dose: 40 mg Documented by: JULIA Montelukast Sodium (Montelukast Sodium 10 Mg Tablet) 10 mg PO BEDTIME [facility] Last Admin: 03/31/21 21:56 Dose: 10 mg Documented by: JUVE Morphine Sulfate (Morphine Sulfate 4 Mg/Ml Cartridge) 1 mg IVPUSH Q4H PRN; Protocol PRN Reason: Pain, SOB Non-Formulary Medication (Nicotine [Nicotrol]) 1 inhalation INHALE Q2H PRN PRN Reason: Smoking Cessation Omeprazole (Omeprazole 20 Mg Capsule.Dr) 20 mg PO DAILY [facility] Last Admin: 04/01/21 09:07 Dose: 20 mg Documented by: JULIA Pharmacy Consult (Consult Rx Perform Med Rec) 1 each MISCELLANE ONCE PRN PRN Reason: Consult order Quetiapine Fumarate (Quetiapine Fumarate 50 Mg Tablet) 50 mg PO BID [facility] Last Admin: 04/01/21 09:07 Dose: 50 mg Documented by: JULIA Senna (Sennosides 8.6 Mg Tablet) 17.2 mg PO BEDTIME PRN PRN Reason: Constipation Sertraline HCl (Sertraline Hcl 100 Mg Tablet) 200 mg PO DAILY [facility] Last Admin: 04/01/21 09:07 Dose: 200 mg Documented by: JULIA Sodium Chloride (0.9 % Sodium Chloride Flush 3 Ml Syringe) 3 ml IVFLUSH QSHIFT [facility] Last Admin: 04/01/21 15:47 Dose: 3 ml Documented by: MARCOS Spironolactone (Spironolactone 25 Mg Tablet) 12.5 mg PO DAILY [facility]; Protocol Last Admin: 04/01/21 09:08 Dose: 12.5 mg Documented by: JULIA Tiotropium [place] (Tiotropium [place] 18 Mcg Cap.W.Dev) 1 puff INHALE DAILY [facility] Last Admin: 04/01/21 07:50 Dose: Not Given Documented by: MARCIAL Non-Admin Reason: Med Not Available Trazodone HCl (Trazodone Hcl 50 Mg Tablet) 50 mg PO BEDTIME PRN PRN Reason: Sleep Labs CBC & Chem 7: 03/31/21 08:07 03/31/21 08:07 Labs: Laboratory Results - last 24 hr 03/31/21 03/31/21 04/01/21 18:52 21:39 07:55 POC Glucose 128 H 176 H 142 H 04/01/21 11:01 POC Glucose 168 H Microbiology Microbiology Results: Microbiology 03/30/21 11:55 Blood Culture - Preliminary Blood - Venous No growth after 48 hours. 03/30/21 11:10 Blood Culture - Preliminary Blood - Venous No growth after 48 hours. Assessment and Plan (1) Acute on chronic systolic (congestive) heart failure: Status: Acute (2) KELLIE (obstructive sleep apnea): Status: Acute (3) Acute and chronic respiratory failure with hypoxia: Status: Acute Assessment and Plan: 60-year-old female with a past medical history of hypertension, hyperlipidemia, diabetes, CAD, CHF with EF of 30%, COPD on 3 L of home oxygen 24/11, tobacco dependence, mitral regurgitation, anxiety, depression, KELLIE noncompliant with CPAP presented to the hospital today with a chief complaint of shortness of breath.? Acute on chronic hypoxic respiratory failure Due to acute congestive heart failure with reduced EF ,pulmonary hypertension and copd exac On arrival to ER noted to be in mild distress, was placed on CPAP briefly did well, seen by psychological examiner and was recommended IV diuretics and nitro patch symptoms improved patient placed on high-flow oxygen but noted to desaturate to mid 70s therefore placed back on BiPAP, re-evaluated again by psychological examiner and recommend to DC BiPAP and to have better blood pressure control Repeat VBG after BiPAP showed improvement in oxygenation At present patient is doing fine denies shortness of breath Will wean high-flow oxygen at home use 3 L of oxygen, keep finger oximetry > 92 continue iv lasix 40 mg 1 more day, continue Coreg, and Aldactone Troponin elevated but flat, BNP 444, CTA chest showed no PE Follow daily weight strict input and output, follow BMP and BNP Recent echocardiogram showed EF 30-35% severe global hypokinesis and impaired relaxation pattern, with moderate pulmonary hypertension and mitral regurg Seen by Cardiology they recommend outpatient ischemic workup and to increase dose of Norvasc due to uncontrolled blood pressure. Uncontrolled blood pressure Continue home medications Coreg, isosorbide, losartan and Norvasc, will increase dose of Norvasc to 10 mg for better blood pressure control.follow bp closely. Mild COPD exacerbation Will wean steroid, continue updraft treatment? Seen by Dr. Gomez he agrees with steroids and recommend to wean high-flow oxygen to keep finger oximetry 90-93% Obstructive sleep apnea Previously was on CPAP but lost her machine, will need outpatient sleep study Patient did not use CPAP at night does not have CO2 retention L1 compression fracture, CT scan showed mild retropulsion, patient denies worsening back pain, will obtain MRI L spine if noted to have worsening back pain or any neurological deficit. DVT prophylaxis: ? Lovenox Code status: Full code Quality Stroke Does the patient have a stroke diagnosis?: No VTE Prior VTE?: No VTE Risk Level:: Medical - moderate - high VTE Device Contraindication: Treatment Not Indicated VTE Drug Contraindication: N/A - Med Ordered
[2021-04-01 16:34] LABS: Glucose, Whole Blood 164 mg/dL (60-115)
--- NOTE | 2021-04-01 18:36 | PC.NURSE ---
Quick burst of SVT 150 while sitting on the recliner . Pt assessed,:denied chest pain,, denied palpitation , polisher numeral present for the assessment. Cardiac rhythm back to NSR 80-90's
[2021-04-01 20:18] LABS: Glucose, Whole Blood 169 mg/dL (60-115)
[2021-04-01] MEDS: Montelukast Sodium 10 MG TABLET PO (20:37)
[2021-04-02] VITALS (10 sets, daily range): BP systolic 125–164; BP diastolic 81–89; PULSE 82–97; RESP 16–19; TEMP 36.3–36.6; O2SAT 92–98
[2021-04-02] MEDS: Enoxaparin Sodium 40 MG/0.4 ML SYRINGE SUBCUT (00:55)
[2021-04-02] MEDS: 0.9 % Sodium Chloride Flush 3 ML SYRINGE IVFLUSH ×2 (00:55→09:02)
[2021-04-02 06:34] LABS: Anion Gap 11 (12-20); Blood Urea Nitrogen 32 mg/dL (9-16); Carbon Dioxide 32 mmol/L (22-29); Chloride 102 mmol/L (96-108); Creatinine Clr Calc Pharmacy 57.7; Estimated Glomerular Filt Rate > 60; Glucose Random 178 mg/dL (60-115); Potassium 3.6 mmol/L (3.3-5.1); Sodium 141 mmol/L (135-145)
[2021-04-02 07:20] LABS: Glucose, Whole Blood 137 mg/dL (60-115)
[2021-04-02 07:43] LABS: B Type Natriuretic Peptide 190 pg/mL (<100)
[2021-04-02] MEDS: predniSONE 20 MG TABLET PO (09:02)
[2021-04-02] MEDS: Spironolactone 25 MG TABLET 12.5 MG PO (09:02)
[2021-04-02] MEDS: Furosemide 40 MG/4 ML VIAL IVPUSH (09:02)
[2021-04-02] MEDS: Isosorbide Mononitrate 30 MG TAB.ER.24H PO (09:03)
[2021-04-02] MEDS: Acetaminophen 325 MG TABLET 650 MG PO (09:04)
[2021-04-02] MEDS: Losartan Potassium 50 MG TABLET 100 MG PO (09:05)
[2021-04-02] MEDS: Omeprazole 20 MG CAPSULE.DR PO (09:06)
[2021-04-02] MEDS: carvediloL 3.125 MG TABLET 6.25 MG PO (09:06)
[2021-04-02] MEDS: QUEtiapine Fumarate 50 MG TABLET PO (09:07)
[2021-04-02] MEDS: Sertraline HCL 100 MG TABLET 200 MG PO (09:07)
[2021-04-02] MEDS: amLODIPine Besylate 10 MG TABLET PO (09:07)
[2021-04-02] MEDS: Folic Acid 1 MG TABLET PO (09:08)
--- NOTE | 2021-04-02 10:10 | PM.PNPUL ---
Subjective Subjective Date of Service: 04/02/21 Principal diagnosis: copd excarbation /Respiratory Failure Interval history: Patient seen for follow-up today. She has continued to improve. And today requiring O2 by nasal cannula at 3 L/minute. Denies any distress. Wants to go home. Objective Data Labs CBC & Chem 7: 03/31/21 08:07 04/02/21 05:32 Labs: Laboratory Results - last 24 hr 04/01/21 04/01/21 04/01/21 11:01 16:29 20:12 Sodium Potassium Chloride Carbon Dioxide Anion Gap BUN Creatinine Estim Creat Clear Calc Estimated GFR POC Glucose 168 H 164 H 169 H Random Glucose Calcium B-Natriuretic Peptide 04/02/21 04/02/21 04/02/21 05:32 07:00 07:15 Sodium 141 Potassium 3.6 Chloride 102 Carbon Dioxide 32 H Anion Gap 11 L BUN 32 H D Creatinine 0.95 Estim Creat Clear Calc 57.7 Estimated GFR > 60 POC Glucose 137 H Random Glucose 178 H Calcium 9.0 D B-Natriuretic Peptide 190 H Microbiology Microbiology Results: Microbiology 03/30/21 11:55 Blood - Venous Blood Culture - Preliminary No growth after 48 hours. 03/30/21 11:10 Blood - Venous Blood Culture - Preliminary No growth after 48 hours. Review of Systems Review of Systems Yes all other systems are reviewed and are negative Constitutional: Reports fatigue and Reports lethargy Eyes: Reports no additional eye complaints Reports system reviewed and no additional complaints, except as documented Cardiovascular: Denies chest pain, Denies irregular heart rhythm and Reports dyspnea on exertion Respiratory: Reports as per HPI and Reports dyspnea on exertion Gastrointestinal: Reports no additional gastrointestinal complaints Genitourinary: Reports no additional female genitourinary complaints Musculoskeletal: Reports no additional musculoskeletal complaints Reports system reviewed and no additional complaints, except as documented Psychiatric: Reports no additional psychiatric complaints Endocrine: Reports fatigue Physical Exam Vital Signs: Vital Signs: Last Vital Signs Temp 97.9 F 04/02/21 07:15 Pulse 82 04/02/21 09:07 Resp 18 04/02/21 07:15 BP 140/81 H 04/02/21 09:07 Pulse Ox 96 04/02/21 07:15 Oxygen Flow Rate 4 03/30/21 10:40 Body Mass Index 29.8 Const: General: comfortable, no acute distress, alert and awake Orientation/consciousness: patient oriented x3 HENMT: Head: Yes normal to inspection General nose exam: No nasal polyps present and No nasal discharge present Face and sinus: Yes sinuses nontender Mouth: oropharynx normal Throat: Yes posterior oropharynx normal Eyes: General: appearance normal, both eyes and all related structures Neck: Neck: Yes normal visual inspection, Yes no lymphadenopathy, Yes trachea midline and Yes no JVD Thyroid: Thyroid normal Chest: Chest palpation & inspection: normal inspection of the chest, normal palpation of entire chest wall and no tenderness Resp: Other: Percussion note resonant, breath sounds are distant with prolonged expiratory phase. No wheezes. She does have a few inspiratory crackles over the basilar areas. Cardio: Palpation: normal PMI Rate: regular rate Rhythm: regular rhythm Heart sounds: no gallops and no murmurs GI: Palpation (GI): Soft to palpation, nontender, No hepatosplenomegaly present and no masses Auscultation: normal bowel sounds Back/Spine/Pelvis: Thoracic/Lumbar Spine: thoracic and lumbar spine normal to inspection and thoraco-lumbar ROM limited Skin: General skin exam: no rashes or lesions noted Neuro: General: patient oriented x3 and no focal motor deficits Cranial nerves: Yes CN's II-XII intact bilaterally Extrem: General: Yes normal to inspection, Yes no calf tenderness and Yes edema (trace of edema of legs) Psych: Speech and movement: Normal speech and movement present Procedures Date of Service Date of Service: 04/02/21 Assessment and Plan Assessment and plan (1) Acute on chronic systolic (congestive) heart failure: Problem details: Patient has chronic problem of congestive heart failure, Acute exacerbation is improved with adequate diuresis. She needs continue diuretic therapy, and should be followed by cardiology service. Status: Acute (2) Pulmonary hypertension: Problem details: Pulmonary hypertension, multi factorial, contributed by congestive heart failure ,untreated KELLIE and also by COPD with chronic respiratory failure. Status: Acute (3) KELLIE (obstructive sleep apnea): Problem details: Patient is known to have obstructive sleep apnea but she has been absolutely non compliant to use CPAP. Status: Acute (4) COPD exacerbation: Problem details: Patient has chronic obstructive pulmonary disease with a component of interstitial lung disease. At present she has acute exacerbation, which has improved. Continue to treat with , DuoNeb updraft , and O2. And discontinue Solu-Medrol. Prednisone 40 mg a day for 5 days. She needs to be followed up as outpatient, for her pulmonary issues. Status: Acute (5) Acute and chronic respiratory failure with hypoxia: Problem details: Patient has acute on chronic respiratory failure mainly in the form of hypoxic respiratory distress. Venous pCO2 is 46, so does not have any significant CO2 retention. TX: Continue O2 3 L/minute, during the daytime as well as at night. Status: Acute Time Spent With Patient Time: Total time spent is greater than 50% in coordination of care (as documented) at patient's floor/unit and/or counseling patient: Time with patient: 15 - 24 minutes Progress Note: Quality Stroke Does the patient have a stroke diagnosis?: No
--- NOTE | 2021-04-02 11:07 | PC.NURSE ---
TLC to RIJ removed, catheter intact and tip visualized. Occlusive dsg applied. Patient tolerated well. Continuous cardiac and O2 monitoring provided, remained at baseline. No IV access, MD aware, patient to be discharged today.
--- NOTE | 2021-04-02 11:15 | PM.PNCARD ---
Subjective Subjective Date of Service: 04/02/21 Principal diagnosis: copd excarbation /Respiratory Failure Interval history: States that she is feeling better. Less short of breath. Review of Systems Review of Systems Yes all other systems are reviewed and are negative Cardiovascular: Reports as per HPI, Reports no additional cardiovascular complaints, Denies acrocyanosis, Denies cool extremities, Denies painful fingertips, Denies chest pain, Denies chest pain at rest, Denies diaphoresis, Denies syncope, Denies irregular heart rhythm, Denies claudication, Denies leg edema, Denies lightheadedness, Denies palpitations and Reports dyspnea Respiratory: Reports dyspnea Denies syncope Endocrine: Denies palpitations Physical Exam Vital Signs: Last Vital Signs Temp 97.6 F 04/02/21 11:07 Pulse 90 04/02/21 11:07 Resp 19 04/02/21 11:07 BP 164/89 H 04/02/21 11:07 Pulse Ox 92 04/02/21 11:07 Oxygen Flow Rate 4 03/30/21 10:40 Body Mass Index 29.8 Const General: cooperative and no acute distress [facility] Other: Unremarkable Neck Neck: Yes normal visual inspection Chest Chest palpation & inspection: normal inspection of the chest Resp Auscultation: crackles (few basal crackles) Cardio Jugular venous distension: no JVD Palpation: normal PMI Heart sounds: S1 normal heart sound present, S2 normal heart sound present, no gallops, no murmurs and no rubs GI Palpation (GI): Soft to palpation Back/Spine/Pelvis Other: unremarkable Skin General skin exam: no rashes or lesions noted Neuro Cranial nerves: Yes Other cranial nerve findings present Extrem General: Yes no clubbing, cyanosis or edema Psych Mental Status: other Objective Labs and Meds Result diagrams: 03/31/21 08:07 04/02/21 05:32 Lab results: Laboratory Results - last 24 hr 04/01/21 04/01/21 04/01/21 11:01 16:29 20:12 Sodium Potassium Chloride Carbon Dioxide Anion Gap BUN Creatinine Estim Creat Clear Calc Estimated GFR POC Glucose 168 H 164 H 169 H Random Glucose Calcium B-Natriuretic Peptide 04/02/21 04/02/21 04/02/21 05:32 07:00 07:15 Sodium 141 Potassium 3.6 Chloride 102 Carbon Dioxide 32 H Anion Gap 11 L BUN 32 H D Creatinine 0.95 Estim Creat Clear Calc 57.7 Estimated GFR > 60 POC Glucose 137 H Random Glucose 178 H Calcium 9.0 D B-Natriuretic Peptide 190 H Progress Note: A&P Assessment and plan (1) Acute and chronic respiratory failure with hypoxia: Status: Acute (2) Acute on chronic systolic (congestive) heart failure: Status: Acute Assessment and Plan: Recent echocardiogram with LVEF of 30-35% and global hypokinesis. There is moderate mitral regurgitation and moderate pulmonary hypertension. LVEF similar to before. Chest CT scan reviewed. There is comment on pulmonary hypertension as well as reflux of contrast into hepatic veins suggesting increased right-sided pressures. Additionally, emphysematous changes with bronchial wall thickening and was psych attenuation suggesting ever atypical infectious or inflammatory process like bronchitis but there is no focal consolidation. Cardiac BNP - variable numbers in the past and overall not too different from before. Today, improved from yesterday. Overall, probably primary pulmonary pathology leading to secondary right heart failure. However, she also has LV dysfunction and hence be multifactorial symptoms. Currently, she is on carvedilol, losartan, isosorbide mononitrate. IV furosemide 40 mg daily, spironolactone and steroids. Clinically not looking much volume overloaded. Renal function seems stable. May switch to oral diuretics. With regard to ischemia workup, there is a prior nuclear perfusion imaging from 2018 that showed normal perfusion (studies prior to that - 2012, 2010 also with normal perfusion). Further testing can be followed up as an outpatient. For elevated BP- increased Amlodipine to 10mg daily. Could be steroid related; further changes as oupt. Fall Risk Details Current Medications: Current Medications Acetaminophen (Acetaminophen 325 Mg Tablet) 650 mg PO Q6H PRN PRN Reason: Pain, Mild (Pain Scale 1-3) Last Admin: 04/02/21 09:04 Dose: 650 mg Documented by: Albuterol/Ipratropium (Albuterol/Iprat 2.5/0.5mg 3 Ml Ampul.Neb) 3 ml INHALE RQ4H WHILE AWAKE PRN PRN Reason: Shortness of Breath/Wheezing Last Admin: 03/31/21 08:29 Dose: 3 ml Documented by: Albuterol/Ipratropium (Albuterol/Iprat 2.5/0.5mg 3 Ml Ampul.Neb) 3 ml INHALE QID PRN PRN Reason: Shortness Of Breath Amlodipine Besylate (Amlodipine Besylate 10 Mg Tablet) 10 mg PO DAILY WALDEMAR; Protocol Last Admin: 04/02/21 09:07 Dose: 10 mg Documented by: Azithromycin (Azithromycin 500 Mg Tablet) 500 mg PO Q24H [facility] Last Admin: 04/01/21 22:35 Dose: 500 mg Documented by: Carvedilol (Carvedilol 3.125 Mg Tablet) 6.25 mg PO BID [facility]; Protocol Last Admin: 04/02/21 09:06 Dose: 6.25 mg Documented by: Dextrose (Dextrose 50 % 25 Gm/50 Ml Vial) 25 gm IVPUSH Q15M PRN; Protocol PRN Reason: per Hypoglycemia Standing Ord. Enoxaparin Sodium (Enoxaparin Sodium 40 Mg/0.4 Ml Syringe) 40 mg SUBCUT Q24H [facility] Last Admin: 04/02/21 00:55 Dose: 40 mg Documented by: Folic Acid (Folic Acid 1 Mg Tablet) 1 mg PO DAILY [facility] Last Admin: 04/02/21 09:08 Dose: 1 mg Documented by: Furosemide (Furosemide 40 Mg/4 Ml Vial) 40 mg IVPUSH DAILY [facility]; Protocol Last Admin: 04/02/21 09:02 Dose: 40 mg Documented by: Glucose (Glucose Gel 15 Gm Gel..Gram.) 15 gm PO Q15M PRN; Protocol PRN Reason: per Hypoglycemia Standing Ord. Insulin Human Lispro (Insulin Lispro 100 Unit/Ml 3 Ml Vial) 0 unit SUBCUT QIDACHS [facility]; Protocol Last Admin: 04/02/21 07:39 Dose: Not Given Documented by: Isosorbide Mononitrate (Isosorbide Mononitrate 30 Mg Tab.Er.24h) 30 mg PO DAILY [facility]; Protocol Last Admin: 04/02/21 09:03 Dose: 30 mg Documented by: Losartan Potassium (Losartan Potassium 50 Mg Tablet) 100 mg PO DAILY WALDEMAR; Protocol Last Admin: 04/02/21 09:05 Dose: 100 mg Documented by: Meclizine HCl (Meclizine Hcl 25 Mg Tablet) 25 mg PO TID PRN PRN Reason: dizziness Melatonin (Melatonin 3 Mg Tablet) 6 mg PO BEDTIME PRN PRN Reason: Insomnia Montelukast Sodium (Montelukast Sodium 10 Mg Tablet) 10 mg PO BEDTIME [facility] Last Admin: 04/01/21 20:37 Dose: 10 mg Documented by: Morphine Sulfate (Morphine Sulfate 4 Mg/Ml Cartridge) 1 mg IVPUSH Q4H PRN; Protocol PRN Reason: Pain, SOB Omeprazole (Omeprazole 20 Mg Capsule.Dr) 20 mg PO DAILY [facility] Last Admin: 04/02/21 09:06 Dose: 20 mg Documented by: Pharmacy Consult (Consult Rx Perform Med Rec) 1 each MISCELLANE ONCE PRN PRN Reason: Consult order Prednisone (Prednisone 20 Mg Tablet) 20 mg PO DAILY [facility] Last Admin: 04/02/21 09:02 Dose: 20 mg Documented by: Quetiapine Fumarate (Quetiapine Fumarate 50 Mg Tablet) 50 mg PO BID [facility] Last Admin: 04/02/21 09:07 Dose: 50 mg Documented by: Senna (Sennosides 8.6 Mg Tablet) 17.2 mg PO BEDTIME PRN PRN Reason: Constipation Sertraline HCl (Sertraline Hcl 100 Mg Tablet) 200 mg PO DAILY [facility] Last Admin: 04/02/21 09:07 Dose: 200 mg Documented by: Sodium Chloride (0.9 % Sodium Chloride Flush 3 Ml Syringe) 3 ml IVFLUSH QSHIFT [facility] Last Admin: 04/02/21 09:02 Dose: 3 ml Documented by: Spironolactone (Spironolactone 25 Mg Tablet) 12.5 mg PO DAILY [facility]; Protocol Last Admin: 04/02/21 09:02 Dose: 12.5 mg Documented by: Tiotropium John Day (Tiotropium [place] 18 Mcg Cap.W.Dev) 1 puff INHALE DAILY [facility] Last Admin: 04/02/21 07:47 Dose: 1 puff Documented by: Trazodone HCl (Trazodone Hcl 50 Mg Tablet) 50 mg PO BEDTIME PRN PRN Reason: Sleep Time Spent With Patient Time: Total time spent is greater than 50% in coordination of care (as documented) at patient's floor/unit and/or counseling patient: Time with patient: less than 15 minutes Progress Note: Quality Stroke Does the patient have a stroke diagnosis?: No Procedures Date of Service Date of Service: 04/02/21
[2021-04-02 11:20] LABS: Glucose, Whole Blood 144 mg/dL (60-115)
--- NOTE | 2021-04-02 11:28 | MHC.CM.PN ---
CM INFORMED PT WILL BE DISCHARGED HOME TODAY WITH RESUMPTION OF HER [employer] DUE TO PTS O2 REQUIREMENTS SHE WILL NEED BLS TRANSPORT REFERRAL SENT TO [facility], THEY WILL BOOK AND HOLD CALL
--- NOTE | 2021-04-02 11:40 | P.DS_ITS ---
DS: Providers Provider Date of Service: 04/02/21 Date of admission: 03/30/21 22:51 Primary care physician: Analisa Chavez MD Consults: 03/30/21 22:50 Consult to Pulmonology Routine Consulting Provider: Rianna Gomez Reason for consultation: Hypoxia; 03/30/21 22:54 Consult to Cardiology Routine Consulting Provider: Bhupendra Germain Reason for consultation: CHF DS: Diagnosis Discharge Diagnosis (1) Acute and chronic respiratory failure with hypoxia: Status: Acute (2) Acute on chronic systolic (congestive) heart failure: Status: Acute DS: Summary Hospital Course Hospital Course: Chief Complaint: SOB ?60-year-old female with a past medical history of hypertension, hyperlipidemia, diabetes, CAD, CHF with EF of 30%, COPD on 3 L of home oxygen 24/7, tobacco dependence, mitral regurgitation, anxiety, depression, KELLIE noncompliant with CPAP presented to the hospital today with a chief complaint of shortness of breath.? Patient reports that over the past today she has been having shortness of breath which has been gradually worsening also complains of dyspnea on exertion; today she could not breathe hence called in the EMS and came to the hospital for further evaluation.? Denied any chest pain palpitations lightheadedness or dizziness.? Denies any fever chills cough or sputum production.? Denies any GI or symptoms. Review of all other systems is negative except mentioned above ER course: Per ER team patient on presentation noted to be in mild distress; CT chest showed no acute findings; paste on CPAP briefly; consulted ICU who evaluated the patient and mentioned to diurese the patient and also nitro patch; ortho Evra patch patient breathing slightly improved; subsequently transitioned to Ventimask at 55 L-saturating mid 80s; ICU team recommended to keep the patient on high-flow oxygen and admitted to the medical floors for further management. Patient received Lasix, nebulizers, magnesium, steroids, nitro patch in the ER. Hospital course 60-year-old female with a past medical history of hypertension, hyperlipidemia, diabetes, CAD, CHF with EF of 30%, COPD on 3 L of home oxygen 24/7, tobacco dependence, mitral regurgitation, anxiety, depression, KELLIE noncompliant with CPAP presented to the hospital with a chief complaint of shortness of breath and diagnosed to have Acute on chronic hypoxic respiratory failure, likely multifactorial Due to acute congestive heart failure with reduced EF ,pulmonary hypertension and copd exacerbation, initially noted to be in mild distress, was placed on BiPAP briefly did well, seen by library serials assistant and was recommended IV diuretics and nitro patch symptoms improved patient placed on high-flow oxygen but noted to desaturate to mid 70s therefore placed back on BiPAP, her shortness of breath and oxygenation improved, repeat VBG some showed improvement in oxygenation, therefore BiPAP remove,placed on oxygen by nasal cannula , patient responded well to diuretics and adjustment of antihypertensive medication, oxygenation has been weaned down to 3 L the patient he use chronically at home finger oximetry remained stable therefore she is being discharged home, patient was followed closely by pulmonology and Cardiology, her dose of Norvasc has been increased to 10 mg daily for better blood pressure control, she was treated with IV steroids updraft treatment and azithromycin for COPD exacerbation, she has been strongly advised to have outpatient sleep study with history of obstructive sleep apnea patient is noncompliance with her CPAP Recent echocardiogram showed EF 30-35% severe global hypokinesis and impaired relaxation pattern, with moderate pulmonary hypertension and mitral regurg, cardiology recommend outpatient ischemic workup Uncontrolled blood pressure Continue home medications Coreg, isosorbide, losartan and Norvasc, dose of Norvasc increased to 10 mg for better blood pressure control Obstructive sleep apnea Previously was on CPAP but lost her machine, will need outpatient sleep study L1 compression fracture, CT scan showed mild retropulsion, patient denies worsening back pain or any neurological deficit. Recommend outpatient follow-up with PCP . Time Spent with Patient Time attestation: Total time spent providing and/or coordinating discharge services: Discharge coordination time: Greater than 30 minutes Quality: Stroke Does the patient have a stroke diagnosis?: No Physical Exam Vital Signs: Vital Signs: Last Vital Signs Temp 97.6 F 04/02/21 11:07 Pulse 90 04/02/21 11:07 Resp 19 04/02/21 11:07 BP 164/89 H 04/02/21 11:07 Pulse Ox 92 04/02/21 11:07 Oxygen Flow Rate 4 03/30/21 10:40 Body Mass Index 29.8 General awake alert x3, no acute distress.? Neck no JVD. CVS? regular rate rhythm, Respiratory diminished breath sound, no wheeze, no use of accessory muscles, no respiratory distress, bibasilar crackles improved Gastrointestinal abdomen soft, nontender, bowel sounds audible, no guarding , no rigidity. Extremities no edema. Neuro nonfocal Skin no rash Psych appropriate affect DS: Data Data Completed and Pending Completed studies during hospitalization [Text1]: Procedures Assistance with Respiratory Ventilation, Less than 24 Consecutive Hours, Continuous Positive Airway Pressure (07/27/20) Labs on day of discharge: Laboratory Results - last 24 hr 04/01/21 04/01/21 04/02/21 16:29 20:12 05:32 Sodium 141 Potassium 3.6 Chloride 102 Carbon Dioxide 32 H Anion Gap 11 L BUN 32 H D Creatinine 0.95 Estim Creat Clear Calc 57.7 Estimated GFR > 60 POC Glucose 164 H 169 H Random Glucose 178 H Calcium 9.0 D B-Natriuretic Peptide 04/02/21 04/02/21 04/02/21 07:00 07:15 11:17 Sodium Potassium Chloride Carbon Dioxide Anion Gap BUN Creatinine Estim Creat Clear Calc Estimated GFR POC Glucose 137 H 144 H Random Glucose Calcium B-Natriuretic Peptide 190 H Preliminary micro results at discharge 03/30/21 11:55 Blood Culture - Preliminary Blood - Venous No growth after 48 hours. 03/30/21 11:10 Blood Culture - Preliminary Blood - Venous No growth after 48 hours. Discharge Plan Discharge Patient Disposition: Home, Self-Care Discharge Diagnosis: Acute on chronic hypoxic respiratory failure Acute on chronic heart failure with reduced EF Pulmonary hypertension COPD exacerbation Uncontrolled blood pressure Obstructive sleep apnea Referrals: Analisa Carr MD [Primary Care Provider] - 1 Week Discharge Medications: New prednisone 20 mg Tablet 20 mg PO DAILY Qty: 4 RF: 0 amlodipine 10 mg Tablet 10 mg PO DAILY Qty: 30 RF: 0 azithromycin 500 mg Tablet 500 mg PO Q24H Qty: 3 RF: 0 Continued montelukast 10 mg tablet 10 mg PO BEDTIME Qty: 30 RF: 11 isosorbide mononitrate 30 mg tablet extended release 24 hr 30 mg PO DAILY 90 Days Qty: 90 RF: 3 Spiriva with HandiHaler 18 mcg capsule, w/inhalation device 1 cap inhalation DAILY 30 Days Qty: 30 RF: 5 sertraline 100 mg tablet 200 mg PO DAILY 90 Days Qty: 180 RF: 1 quetiapine 50 mg tablet 50 mg PO BID 90 Days Qty: 180 RF: 1 omeprazole 20 mg capsule,delayed release(DR/EC) 20 mg PO DAILY 30 Days Qty: 30 RF: 1 furosemide 40 mg tablet 40 mg PO DAILY Qty: 30 RF: 0 meclizine 25 mg tablet 25 mg PO TID PRN (Reason: dizziness) 30 Days Qty: 90 RF: 0 trazodone 50 mg tablet 100 mg PO BEDTIME PRN (Reason: Sleep) RF: 0 folic acid 1 mg Tablet 1 mg PO DAILY Qty: 90 RF: 4 ipratropium-albuterol 0.5 mg-3 mg(2.5 mg base)/3 mL solution for nebulization 3 ml inhalation QID PRN (Reason: Shortness Of Breath) RF: 0 losartan 50 mg Tablet 100 mg PO DAILY Qty: 30 RF: 0 spironolactone 25 mg Tablet 25 mg PO DAILY Qty: 30 RF: 0 carvedilol 3.125 mg Tablet 6.25 mg PO BID Qty: 60 RF: 0 Nicotrol 10 mg cartridge 1 inh inhalation Q2H PRN (Reason: Smoking Cessation) RF: 0 Combivent Respimat 20-100 mcg/actuation mist 1 puff inhalation QID RF: 0 Discontinued amlodipine 5 mg Tablet 5 mg PO DAILY Qty: 30 RF: 0 prednisone 5 mg tablet 1 tab PO DAILY RF: 0 Discharge Orders: Discharge Order (Routine); Ordered 04/02/21 Ordered By: Annamaria Saxena Diet: low salt diet Activity on Discharge: As tolerated Stand Alone Forms: Patient Portal Discharge page Care Plan Goals: Dose of Norvasc increased to 10 mg, take prednisone 20 mg for 4 more days, follow low-salt diet, use DuoNeb inhalers every 4-6 hours as needed for shortness of breath and follow-up with pulmonology Health Concerns: Take all home medications as prescribed Plan of Treatment: Outpatient follow-up with primary care physician and perinatal breastfeeding assistant Dr. Winslow/Dr. Gomez for outpatient sleep study call to make appointment in 1 week Assessment: As above
--- NOTE | 2021-04-02 15:14 | PC.NURSE ---
Addendum entered by Amelia Horne RN 04/02/21 15:18: Patient is at baseline and is comfortable with plan for discharge. Original Note: 1430- Patient desat to 84% when EMT assited patient from bed to stretcher. Per EMT patient was taking a while to recover, appeared SOB. Per patient she feels fine. Dr. Saxena made aware and at bedside. Patient adamant that she wants to be discharged. Oxygen level recovered, however took about 20 minutes. Respiratory at bedside to assess patient. Patient placed on nonrebreather. Per MD and respiratory therapist patient is okay to be discharged. Patient discharged via ambulance.
== END 2021-04-02 15:00 | disposition home or self-care (01) | DRG 140 ==
LOC: HO.ED 20:18 → HO.EDOVER 23:10 → HO.IMC 04-01 06:35
PROVIDERS: Emergency Medicine; Nurse Practitioner Family; Admitting Provider Hospitalist; Emergency Provider Internal Medicine; PCP Internal Medicine; Visit Provider Hospitalist
DX: J44.1 Chronic obstructive pulmonary disease with (acute) exacerbation (principal); J96.21 Acute and chronic respiratory failure with hypoxia; I50.23 Acute on chronic systolic (congestive) heart failure; I27.20 Pulmonary hypertension, unspecified; I11.0 Hypertensive heart disease with heart failure; F17.210 Nicotine dependence, cigarettes, uncomplicated; Z71.6 Tobacco abuse counseling; M48.54XA Collapsed vertebra, not elsewhere classified, thoracic region, initial encounter for fracture; E11.9 Type 2 diabetes mellitus without complications; G47.33 Obstructive sleep apnea (adult) (pediatric); Z99.89 Dependence on other enabling machines and devices; Z91.19 Patient's noncompliance with other medical treatment and regimen; Z20.822 Contact with and (suspected) exposure to COVID-19; Z79.899 Other long term (current) drug therapy
CPT/HCPCS: 36415; 71045; 71275; 80048; 80053; 80076; 82803; 82947; 83605; 83735; 83880; 84484; 85025; 85610; 87040; 87635; 93005; 94640; 94644; 94660; 99285; J0696; J1650; J1940; J2270; J2405; J2920; J2930; J3475; Q9967

== ENCOUNTER 2021-06-22 10:30 | Inpatient (IN) | payer OTHER, SELFPAY ==
[2021-06-22] VITALS (9 sets, daily range): BP systolic 131–170; BP diastolic 39–107; PULSE 94–113; RESP 14–25; TEMP 36.8–37; O2SAT 88–97; BMI 24.2
--- NOTE | ~2021-06-22 | XR_ITS ---
EXAMINATION: XR CHEST CLINICAL INFORMATION: Shortness of breath and cough. COMPARISON: Chest x-ray March 30, 2021 TECHNIQUE: Frontal view of the chest was obtained. FINDINGS: The cardiac silhouette is enlarged. The lungs are adequately aerated. Subtle patchy opacity of the right lung base, nonspecific. No large pleural effusion. No pneumothorax. Nodular density projecting over the right lung apex is nonspecific but suspected to represent an object overlying the patient. XR/XR chest 1V IMPRESSION: Subtle patchy opacity right lung base is suspected to represent atelectasis, however, a developing infiltrate would also be within the differential given provided clinical information. Follow-up imaging recommended to ensure resolution.
--- NOTE | 2021-06-22 10:38 | ED_ITS ---
HPI - SOB/Dyspnea General Chief Complaint: Dyspnea Stated Complaint: shortness of breath Time Seen by Provider: 06/22/21 10:37 Source: patient and EMS Mode of arrival: EMS History of Present Illness HPI Narrative: 60 year old female w/PMHx of COPD on 3L NC, CHF w/EF 30%, DM2, uncontrolled HTN, KELLIE noncompliant with CPAP, mitral regurgitation, depression/anxiety, current smoker, BIBA c/o increased SOB, dry cough, and left-sided chest pain x a few days. Denies fever, chills, abdominal pain, nausea/vomiting, pedal edema, calf pain, COVID-19 exposure. Has 1 shot of COVID vaccine MD elicited complaint: shortness of breath, cough and chest pain Related Data Home Medications Medication Instructions Recorded Confirmed trazodone 50 mg tablet 100 mg PO BEDTIME PRN 03/08/20 06/22/21 nicotine 10 mg inhalation 1 inh INHALATION Q2H PRN 03/30/21 06/22/21 cartridge (Nicotrol) losartan 50 mg tablet 50 mg PO DAILY 06/22/21 06/22/21 prednisone 5 mg tablet 1 tab PO DAILY 06/22/21 06/22/21 spironolactone 25 mg tablet 1 tab PO DAILY 06/22/21 06/22/21 Previous Rx's Medication Instructions Recorded folic acid 1 mg tablet 1 mg PO DAILY #90 tab 07/26/20 montelukast 10 mg tablet 10 mg PO BEDTIME #30 tab 08/27/20 isosorbide mononitrate 30 mg 30 mg PO DAILY 90 Days #90 tab 12/18/20 tablet,extended release 24 hr quetiapine 50 mg tablet 50 mg PO BID 90 Days #180 tab 12/18/20 sertraline 100 mg tablet 200 mg PO DAILY 90 Days #180 tab 12/18/20 tiotropium bromide 18 mcg capsule 1 cap INHALATION DAILY 30 Days #30 05/27/21 with inhalation device (Spiriva inh with HandiHaler) meclizine 25 mg tablet 25 mg PO TID PRN 30 Days #90 tab 06/05/21 furosemide 40 mg tablet 40 mg PO DAILY #30 tab 06/08/21 Allergies Allergy/AdvReac Type Severity Reaction Status Date / Time nicotine [Nicotine] Allergy Mild ITCHING Verified 03/18/21 10:25 WITH THE PATCHES topiramate Allergy Mild inadequealte Verified 03/18/21 10:25 response Review of Systems Review of Systems: Constitutional: No Fever, No Chills, No Fatigue, No Malaise ENT/Mouth: No Ear Pain, No Nasal Congestion, No Sinus Pain, No Hoarseness, No sore throat, No Rhinorrhea, No Swallowing Difficulty Eyes: No Eye Pain, No Swelling, No Redness Cardiovascular: + Chest Pain, + SOB, No Dyspnea on Exertion, No Orthopnea, No Edema, No Palpitations Respiratory: + Cough, No Sputum, + Wheezing, No Smoke Exposure, + Dyspnea Gastrointestinal: No Nausea, No Vomiting, No Diarrhea, No Constipation, No Abdominal pain Genitourinary: No irregular bleeding, No Dysuria, No Urinary Frequency, No Hematuria,No Flank Pain, No Urinary Flow Changes, No Hesitancy Musculoskeletal: No joint pain, No Myalgias, No Joint Swelling Skin: No Skin Lesions, No rash Neuro: No Weakness, No Numbness, No Dizziness, No Headache Yes all other systems are reviewed and are negative [facility] Past Medical History Attestation statement: The following information was validated with the patient. Medical History Acute and chronic respiratory failure with hypoxia Acute exacerbation of chronic obstructive airways disease Acute exacerbation of chronic obstructive pulmonary disease Acute on chronic respiratory failure with hypoxemia Acute on chronic respiratory failure with hypoxemia Anemia Anxiety Cardiomyopathy CHF (congestive heart failure) Chronic respiratory failure Community acquired pneumonia Congestive heart failure Congestive heart failure COPD (chronic obstructive pulmonary disease) COPD exacerbation COPD exacerbation Depression Diabetes Essential hypertension Essential hypertension HFrEF (heart failure with reduced ejection fraction) HLD (hyperlipidemia) HTN (hypertension) Hypertension Hypoxia Low back pain Mitral regurgitation Non-rheumatic mitral regurgitation Normocytic anemia KELLIE (obstructive sleep apnea) Osteoporosis Postmenopausal Pulmonary hypertension Respiratory failure, acute Severe chronic obstructive pulmonary disease Supplemental oxygen dependent Tobacco abuse Surgical History Bilateral ankle fractures History of total abdominal hysterectomy Family History Family History Father No problems noted. 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 home services: Yes Alcohol intake: unknown Patient Tobacco Use Status: Current everyday Tobacco user Tobacco use type: Cigarette Cigarette Packs Per Day: 1 Cigarettes Per Day: 5 Years Smoked: 50 Second Hand Smoke Exposure: No Advance Directives: Yes Advance Directives on File: Yes Advance Directives Date on File: 04/30/20 Patient : No service: No Current occupational status: unemployed, retired and disabled Physical Exam Vital Signs: Vital Signs: Last Vital Signs Temp 98.6 F 06/22/21 10:38 Pulse 97 06/22/21 11:52 Resp 20 06/22/21 11:52 BP 170/107 H 06/22/21 10:38 Pulse Ox 97 06/22/21 11:25 Oxygen Flow Rate 4 06/22/21 10:38 BMI result Body Mass Index 24.2 Const: General: cooperative and no acute distress Orientation/consciousness: patient oriented x3 Limitations: no limitations HENMT: Head: Yes normal to inspection and Yes atraumatic Ears: hearing grossly normal bilaterally General nose exam: Normal external nose present Face and sinus: Yes normal facial exam Eyes: General: appearance normal, both eyes and all related structures EOM: EOMs intact bilaterally Neck: Neck: Yes normal visual inspection and Yes no meningeal signs Resp: Effort & Inspection: labored Auscultation: crackles bilateral at the base and diminished lung sounds diffuse Cardio: Rate: regular rate and tachycardic Heart sounds: S1 normal heart sound present and S2 normal heart sound present GI: Inspection: Yes normal to inspection Palpation (GI): Soft to palpation, nontender, no guarding and not rigid : General: Yes no CVA tenderness Back/Spine/Pelvis: Back: no CVA tenderness Skin: Rashes: no rashes Wounds: no wounds Neuro: General: patient oriented x3 and no meningeal signs Gait exam (Neuro): Normal gait present Extrem: General: Yes normal to inspection, Yes no pedal edema and Yes no calf tenderness Course Course Course Narrative: -1156- no leukocytosis. H&H at patient's baseline. Lactic acid 1.7. Troponin 43.4 (elevated priors) > will obtain 3 hour repeat. BNP 394 (acute on chronically elevated) -COVID-19 negative -1220--potassium low at 3.1 p.o. repletion ordered. > patient not handling Potassium packet taste well, p.o. pills ordered. Magnesium mildly elevated at 3.2 XR chest 1V IMPRESSION: Subtle patchy opacity right lung base is suspected to represent atelectasis, however, a developing infiltrate would also be within the differential given provided clinical information. Follow-up imaging recommended to ensure resolution. >> Rocephin/azithromycin added. Plan for admission. 1230--on re-evaluation patient still with diffuse coarse lung sounds. MDM - SOB/Dyspnea MDM Narrative Medical decision making narrative: 60 year old female w/PMHx of COPD on 3L NC, CHF w/EF 30%, DM2, uncontrolled HTN, KELLIE noncompliant with CPAP, mitral regurgitation, depression/anxiety, current smoker, BIBA c/o increased SOB, dry cough, and left-sided chest pain x a few days. On exam hypertensive, tachycardic likely from albuterol treatments, bibasilar crackles and diffuse Decreased breath sounds, no pedal edema/calf tenderness. Concern for COPD exacerbation vs CHF vs viral syndrome/COVID-19 vs PNA. Unlikely PE Low concern for severe sepsis Plan: EKG, labs, COVID-19 testing, CXR, DuoNeb, magnesium, Solu-Medrol, anticipated admission Differential Diagnosis Differential diagnosis: Likely acute exacerbation of chronic obstructive airways disease, congestive heart failure and pneumonia Medical Records Attestation: I reviewed the patient's medical records. Lab Data Attestation: I reviewed the patient's lab results. Result diagrams: 06/22/21 11:13 06/22/21 11:56 Labs: Lab Results 06/22/21 06/22/21 06/22/21 Range/Units 11:13 11:13 11:13 WBC 9.3 (4.8-10.8) X10*3/uL RBC 4.52 (4.20-5.50) X10*6/uL Hgb 10.8 L (12.0-16.0) g/dl Hct 36.7 L (37.0-47.0) % MCV 81.2 (80.0-98.0) fL MCH 23.9 L (27.0-33.0) pg MCHC 29.4 L (31.0-35.0) g/dl RDW 15.9 (11.0-16.0) % Plt Count 212 (160-400) X10*3/uL MPV 10.2 (9.4-12.3) fL Immature Gran % (Auto) 0.3 (0.0-0.4) % Neut % (Auto) 75.5 H (45-73) % Lymph % (Auto) 18.6 L (20-40) % [place] % (Auto) 5.2 (2-11) % Eos % (Auto) 0.2 (0-4) % Baso % (Auto) 0.2 (0-2) % Lymph # (Auto) 1.7 (1.2-4.9) X10*3/uL [place] # (Auto) 0.5 (0.1-1.2) X10*3/uL Eos # (Auto) 0.0 (0.0-0.4) X10*3/uL Baso # (Auto) 0.0 (0.0-0.2) X10*3/uL Abs Immat Gran (auto) 0.03 (0.00-0.03) X10*3/uL Absolute Neuts (auto) 7.0 (2.0-8.3) x10*3/uL Absolute Nucleated RBC 0.000 (0.0-0.012) X10*3/uL Nucleated RBC % (auto) 0.0 (0.0-0.2) /100WBC Sodium (135-145) mmol/L Potassium (3.3-5.1) mmol/L Chloride (96-108) mmol/L Carbon Dioxide (22-29) mmol/L Anion Gap (12-20) BUN (9-16) mg/dL Creatinine (0.5-1.4) mg/dL Estim Creat Clear Calc Estimated GFR Random Glucose (60-115) mg/dL Lactic Acid (0.5-2.0) mmol/L Calcium (8.4-10.2) mg/dL Magnesium (1.6-2.6) mg/dL Total Bilirubin (0.0-1.0) mg/dL Direct Bilirubin (0.0-0.5) mg/dL AST (5-31) U/L ALT (0-31) U/L Alkaline Phosphatase (39-117) U/L Troponin I High Sens 43.4 H (<3.5-17.0) ng/L B-Natriuretic Peptide (<100) pg/mL Total Protein (6.5-8.0) g/dL Albumin (3.5-5.0) g/dL COVID-19 (ANEL) Negative (Negative) COVID-19 Clin Com See Note 06/22/21 06/22/21 06/22/21 Range/Units 11:13 11:13 11:56 WBC (4.8-10.8) X10*3/uL RBC (4.20-5.50) X10*6/uL Hgb (12.0-16.0) g/dl Hct (37.0-47.0) % MCV (80.0-98.0) fL MCH (27.0-33.0) pg MCHC (31.0-35.0) g/dl RDW (11.0-16.0) % Plt Count (160-400) X10*3/uL MPV (9.4-12.3) fL Immature Gran % (Auto) (0.0-0.4) % Neut % (Auto) (45-73) % Lymph % (Auto) (20-40) % [place] % (Auto) (2-11) % Eos % (Auto) (0-4) % Baso % (Auto) (0-2) % Lymph # (Auto) (1.2-4.9) X10*3/uL [place] # (Auto) (0.1-1.2) X10*3/uL Eos # (Auto) (0.0-0.4) X10*3/uL Baso # (Auto) (0.0-0.2) X10*3/uL Abs Immat Gran (auto) (0.00-0.03) X10*3/uL Absolute Neuts (auto) (2.0-8.3) x10*3/uL Absolute Nucleated RBC (0.0-0.012) X10*3/uL Nucleated RBC % (auto) (0.0-0.2) /100WBC Sodium 141 (135-145) mmol/L Potassium 3.1 L (3.3-5.1) mmol/L Chloride 101 (96-108) mmol/L Carbon Dioxide 29 (22-29) mmol/L Anion Gap 14 (12-20) BUN 7 L (9-16) mg/dL Creatinine 0.82 (0.5-1.4) mg/dL Estim Creat Clear Calc 55.6 Estimated GFR > 60 Random Glucose 131 H (60-115) mg/dL Lactic Acid 1.7 (0.5-2.0) mmol/L Calcium 8.9 (8.4-10.2) mg/dL Magnesium 3.2 H (1.6-2.6) mg/dL Total Bilirubin 0.3 (0.0-1.0) mg/dL Direct Bilirubin < 0.2 (0.0-0.5) mg/dL AST 12 (5-31) U/L ALT 7 (0-31) U/L Alkaline Phosphatase 123 H (39-117) U/L Troponin I High Sens (<3.5-17.0) ng/L B-Natriuretic Peptide 394 H (<100) pg/mL Total Protein 7.1 (6.5-8.0) g/dL Albumin 4.0 (3.5-5.0) g/dL COVID-19 (ANEL) (Negative) COVID-19 Clin Com Discharge Plan Discharge Clinical Impression: COPD (chronic obstructive pulmonary disease) Patient Disposition: Admitted As Inpatient
--- NOTE | 2021-06-22 10:52 | ECG_ITS ---
Test Reason : Congestive Heart Failure Blood Pressure : / mmHG Vent. Rate : 103 BPM Atrial Rate : 103 BPM P-R Int : 118 ms QRS Dur : 126 ms QT Int : 418 ms P-R-T Axes : 014 -01 009 degrees QTc Int : 547 ms Sinus tachycardia Right bundle branch block Abnormal ECG When compared with ECG of 30-MAR-2021 11:52, No significant change was found Referred By: Fabi Hunt Electronically Signed By:KEVIN ODELL MD
[2021-06-22] MEDS: Albuterol Sulfate (0.083%) 2.5 MG/3 ML VIAL.NEB 5 MG INHALE ×2 (11:18→11:52)
[2021-06-22] MEDS: Albuterol/Iprat 2.5/0.5MG 3 ML AMPUL.NEB INHALE (11:18)
[2021-06-22 11:21] LABS: MANUAL DIFF FLAG NO
[2021-06-22 11:22] LABS: Basophils Percent Auto 0.2 % (0-2); Eosinophils Percent Auto 0.2 % (0-4); Hematocrit 36.7 % (37.0-47.0); Hemoglobin 10.8 g/dl (12.0-16.0); Imm Gran Abs Auto 0.03 X10*3/uL (0.00-0.03); Imm Gran Pct Auto 0.3 % (0.0-0.4); Lymphocytes Absolute Auto 1.7 X10*3/uL (1.2-4.9); Lymphocytes Percent Auto 18.6 % (20-40); Mean Corpuscular HGB Conc 29.4 g/dl (31.0-35.0); Mean Corpuscular Hemoglobin 23.9 pg (27.0-33.0); Mean Corpuscular Volume 81.2 fL (80.0-98.0); Mean Platelet Volume 10.2 fL (9.4-12.3); Monocytes Absolute Auto 0.5 X10*3/uL (0.1-1.2); Monocytes Percent Auto 5.2 % (2-11); Neutrophils Percent Auto 75.5 % (45-73); Platelet Count 212 X10*3/uL (160-400); Red Blood Count 4.52 X10*6/uL (4.20-5.50); Red Cell Distribution Width 15.9 % (11.0-16.0); White Blood Count 9.3 X10*3/uL (4.8-10.8)
[2021-06-22 11:25] LABS: Venous Blood Gas Refer to POC result
[2021-06-22 11:32] LABS: Lactic Acid 1.7 mmol/L (0.5-2.0)
[2021-06-22] MEDS: methylPREDNISolone Sod Succ 125 MG/2 ML VIAL IVPUSH (11:33)
[2021-06-22] MEDS: Magnesium Sulfate/H2O 2 GM/50 ML PIGGYBACK IV (11:34)
[2021-06-22 11:40] LABS: COVID-19 Test Negative (Negative)
[2021-06-22 11:42] LABS: Troponin-I High Sensitivity 43.4 ng/L (<3.5-17.0)
[2021-06-22 11:43] LABS: B Type Natriuretic Peptide 394 pg/mL (<100)
--- NOTE | 2021-06-22 11:45 | PHA.MEDREC ---
Pharmacy Consult ? Medication Reconciliation Pharmacy has completed the medication reconciliation. Pt unsure of what exactly she takes, but noted taking about 7 every morning and 3 every night. She uses a home nurse from [place] but it's not one person they change all the time. Unable to provide information for which home nursing service she uses. Recent claim history is on par with her statement. Tried contacting [employer] on file but unable to reach or leave message. Susannah Lama, [employer]
[2021-06-22 12:17] LABS: Alanine Aminotransferase 7 U/L (0-31); Alkaline Phosphatase 123 U/L (39-117); Anion Gap 14 (12-20); Aspartate Amino Transferase 12 U/L (5-31); Bilirubin Direct < 0.2 mg/dL (0.0-0.5); Bilirubin Total 0.3 mg/dL (0.0-1.0); Blood Urea Nitrogen 7 mg/dL (9-16); Calcium 8.9 mg/dL (8.4-10.2); Carbon Dioxide 29 mmol/L (22-29); Chloride 101 mmol/L (96-108); Creatinine Clr Calc Pharmacy 55.6; Estimated Glomerular Filt Rate > 60; Glucose Random 131 mg/dL (60-115); Magnesium 3.2 mg/dL (1.6-2.6); Potassium 3.1 mmol/L (3.3-5.1); Sodium 141 mmol/L (135-145); Total Protein 7.1 g/dL (6.5-8.0)
[2021-06-22] MEDS: Potassium Chloride Packet 20 MEQ PACKET 40 MEQ PO (12:38)
--- NOTE | 2021-06-22 12:53 | PM.IMHP ---
History of Present Illness Date of Service: 06/22/21 Chief Complaint: Shortness of breath 60-year-old female with a past medical history of hypertension, hyperlipidemia, diabetes, CAD, CHF with EF of 30%, COPD on 3 L of home oxygen 24/11, active tobacco dependence, mitral regurgitation, anxiety, depression, KELLIE noncompliant with CPAP, last hospitalization here at the end of March 2021. She is presenting with ?shortness of as usual, her symptoms have been ongoing since yesterday, associated with dry cough, no fever and has continued to smoke during that time frame. She was noted to be hypoxic with O2 88. Covid is negative, CXR no PNA. She is vaccinated with 1 dose of covid vaccine more than a year ago.. She is not sure which one Review of Systems Review of Systems: Gen: no fever Resp: +sob, + cough CV: no chest, no [place], no leg edema GI: No n/v, no abd pain Neuro: No confusion Yes all other systems are reviewed and are negative [facility] Medical History Acute and chronic respiratory failure with hypoxia Acute exacerbation of chronic obstructive airways disease Acute exacerbation of chronic obstructive pulmonary disease Acute on chronic respiratory failure with hypoxemia Acute on chronic respiratory failure with hypoxemia Anemia Anxiety Cardiomyopathy CHF (congestive heart failure) Chronic respiratory failure Community acquired pneumonia Congestive heart failure Congestive heart failure COPD (chronic obstructive pulmonary disease) COPD exacerbation COPD exacerbation Depression Diabetes Essential hypertension Essential hypertension HFrEF (heart failure with reduced ejection fraction) HLD (hyperlipidemia) HTN (hypertension) Hypertension Hypoxia Low back pain Mitral regurgitation Non-rheumatic mitral regurgitation Normocytic anemia KELLIE (obstructive sleep apnea) Osteoporosis Postmenopausal Pulmonary hypertension Respiratory failure, acute Severe chronic obstructive pulmonary disease Supplemental oxygen dependent Tobacco abuse Family History Father No problems noted. 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 home services: Yes Alcohol intake: unknown Patient Tobacco Use Status: Current everyday Tobacco user Tobacco use type: Cigarette Cigarette Packs Per Day: 1 Cigarettes Per Day: 5 Years Smoked: 50 Second Hand Smoke Exposure: No Advance Directives: Yes Advance Directives on File: Yes Advance Directives Date on File: 04/30/20 Patient : No service: No Current occupational status: unemployed, retired and disabled Meds Allergies Allergy/AdvReac Type Severity Reaction Status Date / Time nicotine [Nicotine] Allergy Mild ITCHING Verified 03/18/21 10:25 WITH THE PATCHES topiramate Allergy Mild inadequealte Verified 03/18/21 10:25 response Active Medications: Current Medications Ceftriaxone Sodium 1 gm/ (Sodium Chloride) 50 mls @ 100 mls/hr IV ONCE ONE Stop: 06/22/21 13:14 Azithromycin 500 mg/ Sodium (Chloride) 250 mls @ 125 mls/hr IV ONCE ONE Stop: 06/22/21 14:44 Pharmacy Consult (Consult Rx Perform Med Rec) 1 each MISCELLANE ONCE PRN PRN Reason: Consult order Home Medications Medication Instructions Recorded Confirmed Last Taken Type trazodone 50 mg tablet 100 mg PO BEDTIME PRN 03/08/20 06/22/21 03/29/21 History nicotine 10 mg inhalation 1 inh INHALATION Q2H PRN 03/30/21 06/22/21 03/30/21 History cartridge (Nicotrol) losartan 50 mg tablet 50 mg PO DAILY 06/22/21 06/22/21 06/21/21 History prednisone 5 mg tablet 1 tab PO DAILY 06/22/21 06/22/21 06/21/21 History spironolactone 25 mg tablet 1 tab PO DAILY 06/22/21 06/22/21 06/21/21 History Physical Exam Vital Signs and Narrative: Vital Signs: Last Vital Signs Temp 98.6 F 06/22/21 10:38 Pulse 97 06/22/21 11:52 Resp 20 06/22/21 11:52 BP 170/107 H 06/22/21 10:38 Pulse Ox 97 06/22/21 11:25 Oxygen Flow Rate 4 06/22/21 10:38 BMI result Body Mass Index 24.2 Const: Other: Constitutional: Alert, in no distress, overweight. Mental Status: Oriented to person, place and time. Eyes: Pupils are equal, round and reactive to light. Ear, Nose and Throat: Oropharynx clear, mucous membranes moist. Ears and nose without eformities. Trachea midline. Respiratory: Clear to auscultation. No wheezing, rales or rhonchi. Cardiovascular: S1 S2 regular. No murmurs, rubs or gallops. Gastrointestinal: Abdomen soft, non-tender, non-distended. Normal bowel sounds.? Neurologic: Cranial nerves II-XII grossly intact. No focal neurological deficits. Moves all extremities spontaneously.? Skin: No rashes or lesions.? Musculoskeletal: No cyanosis or clubbing. Psychiatric: Normal mood and affect? Results Labs CBC and Chem 7: 06/22/21 11:13 06/22/21 11:56 Labs: Laboratory Results - last 24 hr 06/22/21 06/22/21 06/22/21 11:13 11:13 11:13 MCV 81.2 MCH 23.9 L MCHC 29.4 L RDW 15.9 Plt Count 212 MPV 10.2 Immature Gran % (Auto) 0.3 Neut % (Auto) 75.5 H Lymph % (Auto) 18.6 L [place] % (Auto) 5.2 Eos % (Auto) 0.2 Baso % (Auto) 0.2 Lymph # (Auto) 1.7 [place] # (Auto) 0.5 Eos # (Auto) 0.0 Baso # (Auto) 0.0 Abs Immat Gran (auto) 0.03 Absolute Neuts (auto) 7.0 Absolute Nucleated RBC 0.000 Nucleated RBC % (auto) 0.0 Anion Gap Estim Creat Clear Calc Estimated GFR Random Glucose Lactic Acid 1.7 Calcium Magnesium Total Bilirubin Direct Bilirubin AST ALT Alkaline Phosphatase B-Natriuretic Peptide Total Protein Albumin COVID-19 (ANEL) Negative COVID-19 Clin Com See Note 06/22/21 06/22/21 11:13 11:56 MCV MCH MCHC RDW Plt Count MPV Immature Gran % (Auto) Neut % (Auto) Lymph % (Auto) [place] % (Auto) Eos % (Auto) Baso % (Auto) Lymph # (Auto) [place] # (Auto) Eos # (Auto) Baso # (Auto) Abs Immat Gran (auto) Absolute Neuts (auto) Absolute Nucleated RBC Nucleated RBC % (auto) Anion Gap 14 Estim Creat Clear Calc 55.6 Estimated GFR > 60 Random Glucose 131 H Lactic Acid Calcium 8.9 Magnesium 3.2 H Total Bilirubin 0.3 Direct Bilirubin < 0.2 AST 12 ALT 7 Alkaline Phosphatase 123 H B-Natriuretic Peptide 394 H Total Protein 7.1 Albumin 4.0 COVID-19 (ANEL) COVID-19 Clin Com Imaging Radiologist's Impressions: Impressions Chest X-Ray 06/22/21 12:01 IMPRESSION: Subtle patchy opacity right lung base is suspected to represent atelectasis, however, a developing infiltrate would also be within the differential given provided clinical information. Follow-up imaging recommended to ensure resolution. Assessment and Plan (1) COPD (chronic obstructive pulmonary disease): Status: Acute (2) Acute and chronic respiratory failure with hypoxia: Status: Acute Plan 60-year-old female with a past medical history of hypertension, hyperlipidemia, diabetes, CAD, CHF with EF of 30%, COPD on 3 L of home oxygen 24/11, tobacco dependence, mitral regurgitation, anxiety, depression, KELLIE noncompliant with CPAP here with increasing shortness of breath due to COPD exacerbation Acute on chronic hypoxic respiratory failure d/t acute on chronic systolic ,pulmonary hypertension and copd exac --Treat underlying issues. COPD exacerbation -IV steroid -Bronchodilators scheduled and PRN -Smoking cessation discussed yet again Obstructive sleep apnea--CPAP at night Acute on chronic systolic CHF exacerbation--clinically appear to be mild. Has received IV Lasix in ED, resume home dose of lasix Chest pain--mild rise in troponin, repeat troponin, if pain continues and troponin is rising, will consult cardiology DVT prophylaxis: ? Lovenox Quality Stroke Does the patient have a stroke diagnosis?: No VTE Prior VTE?: No VTE Risk Level:: Medical - moderate - high VTE Device Contraindication: Treatment Not Indicated VTE Drug Contraindication: N/A - Med Ordered
[2021-06-22] MEDS: cefTRIAXone sodium 1 GM in 0.9 % Sodium Chloride 50 ML IV (13:14)
[2021-06-22] MEDS: Potassium Chloride ER 20 MEQ TAB.ER.PRT PO (13:14)
[2021-06-22] MEDS: Azithromycin 500 MG in 0.9 % Sodium Chloride 250 ML 125 MG IV (13:40)
--- NOTE | 2021-06-22 14:34 | PC.NURSE ---
pt up to bedside commode, did not tolerate well. HR 145, SaO2 dropped to 69% changed pt to a non-rebreather to bring her oxygen back up. pt extremely dyspnic and tachypnic.
[2021-06-22 14:36] LABS: Troponin-I High Sensitivity 42.8 ng/L (<3.5-17.0)
[2021-06-22 14:58] LABS: Appearance Urine HAZY; Color Urine YELLOW; Glucose Urine UA NEG (NEG); Leukocyte Esterase Urine 1+ (NEG); Nitrite Urine NEG (NEG); Specific Gravity - Urine <= 1.005 (1.005-1.025); UACC Culture Trigger YES; Urine Blood NEG (NEG); Urine Ketones NEG (NEG); Urine Protein NEG (NEG-TRACE)
[2021-06-22 15:14] LABS: Bacteria Urine TRACE /LPF; RBC Urine 0-2 /HPF (0); Squamous Epithelial Cell Urine TRACE /LPF
--- NOTE | 2021-06-22 15:33 | PC.NURSE ---
informed dr. tenorio of pts dyspnic episode following getting up to commode- IV lasix ordered.
[2021-06-22] MEDS: Enoxaparin Sodium 40 MG/0.4 ML SYRINGE SUBCUT (15:37)
[2021-06-22] MEDS: Furosemide 40 MG/4 ML VIAL IVPUSH (15:38)
[2021-06-22] MEDS: 0.9 % Sodium Chloride Flush 3 ML SYRINGE IVFLUSH (15:43)
[2021-06-22] MEDS: Montelukast Sodium 10 MG TABLET PO (20:58)
[2021-06-22] MEDS: traZODone HCL 100 MG TABLET PO (20:58)
[2021-06-22] MEDS: QUEtiapine Fumarate 50 MG TABLET PO (20:58)
[2021-06-22] MEDS: Acetaminophen 325 MG TABLET 650 MG PO (21:08)
[2021-06-23] VITALS (9 sets, daily range): BP systolic 136–177; BP diastolic 76–117; PULSE 87–120; RESP 12–24; TEMP 36.1–36.8; O2SAT 89–100
[2021-06-23] MEDS: Isosorbide Mononitrate 30 MG TAB.ER.24H PO (08:00)
[2021-06-23] MEDS: Losartan Potassium 50 MG TABLET PO (08:00)
[2021-06-23] MEDS: QUEtiapine Fumarate 50 MG TABLET PO ×2 (08:00→19:40)
[2021-06-23] MEDS: Sertraline HCL 100 MG TABLET 200 MG PO (08:01)
[2021-06-23] MEDS: Spironolactone 25 MG TABLET PO (08:01)
[2021-06-23] MEDS: methylPREDNISolone Sod Succ 40 MG/ML VIAL IVPUSH ×2 (08:01→16:17)
[2021-06-23] MEDS: Furosemide 40 MG TABLET PO (08:01)
[2021-06-23] MEDS: Folic Acid 1 MG TABLET PO (08:01)
--- NOTE | 2021-06-23 10:58 | P.PNIM_ITS ---
Subjective Subjective Date of Service: 06/23/21 Interval History: F/u on acute hypoxic resp failure due to COPD, intermittent hypoxia but overall feels more comfortable. Review of Systems Gen: no fever Resp: +sob, CV: no chest, no [place], no leg edema GI: No n/v, no abd pain Neuro: No confusion Physical Exam Vital Signs: Vital Signs: Last Vital Signs Temp 98.3 F 06/23/21 07:14 Pulse 119 H 06/23/21 10:18 Resp 18 06/23/21 10:18 BP 149/93 H 06/23/21 10:18 Pulse Ox 89 L 06/23/21 10:18 Oxygen Flow Rate 4 06/22/21 10:38 BMI result Body Mass Index 24.2 Objective Data Active Medications Albuterol/Ipratropium (Albuterol/Iprat 2.5/0.5mg 3 Ml Ampul.Neb) 3 ml INHALE Q2H PRN PRN Reason: Shortness of Breath Enoxaparin Sodium (Enoxaparin Sodium 40 Mg/0.4 Ml Syringe) 40 mg SUBCUT Q24H [facility] Last Admin: 06/22/21 15:37 Dose: 40 mg Documented by: CAROLE Folic Acid (Folic Acid 1 Mg Tablet) 1 mg PO DAILY [facility] Last Admin: 06/23/21 08:01 Dose: 1 mg Documented by: JOSE CARLOS Furosemide (Furosemide 40 Mg Tablet) 40 mg PO DAILY [facility]; Protocol Last Admin: 06/23/21 08:01 Dose: 40 mg Documented by: JOSE CARLOS Isosorbide Mononitrate (Isosorbide Mononitrate 30 Mg Tab.Er.24h) 30 mg PO DAILY [facility]; Protocol Last Admin: 06/23/21 08:00 Dose: 30 mg Documented by: JOSE CARLOS Losartan Potassium (Losartan Potassium 50 Mg Tablet) 50 mg PO DAILY [facility]; Protocol Last Admin: 06/23/21 08:00 Dose: 50 mg Documented by: JOSE CARLOS Meclizine HCl (Meclizine Hcl 25 Mg Tablet) 25 mg PO TID PRN PRN Reason: dizziness Methylprednisolone Sodium Succinate (Methylprednisolone Sod Succ 40 Mg/Ml Vial) 40 mg IVPUSH Q8H [facility] Last Admin: 06/23/21 08:01 Dose: 40 mg Documented by: JOSE CARLOS Montelukast Sodium (Montelukast Sodium 10 Mg Tablet) 10 mg PO BEDTIME [facility] Last Admin: 06/22/21 20:58 Dose: 10 mg Documented by: DAVION Non-Formulary Medication (Nicotine [Nicotrol]) 1 inhalation INHALE Q2H PRN PRN Reason: Smoking Cessation Pharmacy Consult (Consult Rx Perform Med Rec) 1 each MISCELLANE ONCE PRN PRN Reason: Consult order Quetiapine Fumarate (Quetiapine Fumarate 50 Mg Tablet) 50 mg PO BID [facility] Last Admin: 06/23/21 08:00 Dose: 50 mg Documented by: JOSE CARLOS Sertraline HCl (Sertraline Hcl 100 Mg Tablet) 200 mg PO DAILY [facility] Last Admin: 06/23/21 08:01 Dose: 200 mg Documented by: JOSE CARLOS Sodium Chloride (0.9 % Sodium Chloride Flush 3 Ml Syringe) 3 ml IVFLUSH QSHIFT [facility] Last Admin: 06/23/21 07:33 Dose: Not Given Documented by: JOSE CARLOS Non-Admin Reason: Med Not Available Spironolactone (Spironolactone 25 Mg Tablet) 25 mg PO DAILY [facility]; Protocol Last Admin: 06/23/21 08:01 Dose: 25 mg Documented by: JOSE CARLOS Tiotropium [place] (Tiotropium [place] 18 Mcg Cap.W.Dev) 1 puff INHALE RDAILY [facility] Last Admin: 06/23/21 08:02 Dose: Not Given Documented by: JOSE CARLOS Non-Admin Reason: Med Not Available Trazodone HCl (Trazodone Hcl 100 Mg Tablet) 100 mg PO BEDTIME PRN PRN Reason: Sleep Last Admin: 06/22/21 20:58 Dose: 100 mg Documented by: DAVION Labs CBC & Chem 7: 06/22/21 11:13 06/22/21 11:56 Labs: Laboratory Results - last 24 hr 06/22/21 06/22/21 06/22/21 11:13 11:13 11:13 MCV 81.2 MCH 23.9 L MCHC 29.4 L RDW 15.9 Plt Count 212 MPV 10.2 Immature Gran % (Auto) 0.3 Neut % (Auto) 75.5 H Lymph % (Auto) 18.6 L [place] % (Auto) 5.2 Eos % (Auto) 0.2 Baso % (Auto) 0.2 Lymph # (Auto) 1.7 [place] # (Auto) 0.5 Eos # (Auto) 0.0 Baso # (Auto) 0.0 Abs Immat Gran (auto) 0.03 Absolute Neuts (auto) 7.0 Absolute Nucleated RBC 0.000 Nucleated RBC % (auto) 0.0 Anion Gap Estim Creat Clear Calc Estimated GFR Random Glucose Lactic Acid 1.7 Calcium Magnesium Total Bilirubin Direct Bilirubin AST ALT Alkaline Phosphatase B-Natriuretic Peptide Total Protein Albumin Urine Color Urine Appearance Urine pH Ur Specific [place] Urine Protein Urine Glucose (UA) Urine Ketones Urine Blood Urine Nitrite Ur Leukocyte Esterase Urine RBC Urine WBC Ur Squamous Epith Cells Urine Bacteria COVID-19 (ANEL) Negative COVID-19 Clin Com See Note 06/22/21 06/22/21 06/22/21 11:13 11:56 14:50 MCV MCH MCHC RDW Plt Count MPV Immature Gran % (Auto) Neut % (Auto) Lymph % (Auto) [place] % (Auto) Eos % (Auto) Baso % (Auto) Lymph # (Auto) [place] # (Auto) Eos # (Auto) Baso # (Auto) Abs Immat Gran (auto) Absolute Neuts (auto) Absolute Nucleated RBC Nucleated RBC % (auto) Anion Gap 14 Estim Creat Clear Calc 55.6 Estimated GFR > 60 Random Glucose 131 H Lactic Acid Calcium 8.9 Magnesium 3.2 H Total Bilirubin 0.3 Direct Bilirubin < 0.2 AST 12 ALT 7 Alkaline Phosphatase 123 H B-Natriuretic Peptide 394 H Total Protein 7.1 Albumin 4.0 Urine Color YELLOW Urine Appearance HAZY Urine pH 7.0 Ur Specific [place] <= 1.005 Urine Protein NEG Urine Glucose (UA) NEG Urine Ketones NEG Urine Blood NEG Urine Nitrite NEG Ur Leukocyte Esterase 1+ H Urine RBC 0-2 Urine WBC 5-9 H Ur Squamous Epith Cells TRACE Urine Bacteria TRACE COVID-19 (ANEL) COVID-19 Clin Com Assessment and Plan (1) Acute and chronic respiratory failure with hypoxia: Status: Acute (2) COPD (chronic obstructive pulmonary disease): Status: Acute Plan 60-year-old female with a past medical history of hypertension, hyperlipidemia, diabetes, CAD, CHF with EF of 30%, COPD on 3 L of home oxygen 24/, tobacco dependence, mitral regurgitation, anxiety, depression, KELLIE noncompliant with CPAP here with increasing shortness of breath due to COPD exacerbation Acute on chronic hypoxic respiratory failure d/t acute on chronic systolic ,pulmonary hypertension and copd exac --Treat underlying issues. COPD exacerbation -IV steroid -Bronchodilators scheduled and PRN -Smoking cessation discussed yet again -Titrate O2 to sat 92 Obstructive sleep apnea--CPAP at night Acute on chronic systolic CHF exacerbation--clinically appear to be mild. Has received IV Lasix in ED, resume home dose of lasix today Chest pain--mild rise in troponin, repeat troponin, if pain continues and troponin is rising, will consult cardiology DVT prophylaxis: ? Lovenox Quality Stroke Does the patient have a stroke diagnosis?: No VTE Prior VTE?: No VTE Risk Level:: Medical - moderate - high VTE Device Contraindication: Treatment Not Indicated VTE Drug Contraindication: N/A - Med Ordered
--- NOTE | 2021-06-23 13:01 | MHC.CM.PN ---
spoke with pts hcp and consulting it architect ashley cho she confirms mthat pt is on home 02 she is vax c1 hcp is onfile she will need amb home when dcd no other service in place dc plan home with resumptin of same
[2021-06-23] MEDS: Enoxaparin Sodium 40 MG/0.4 ML SYRINGE SUBCUT (16:17)
[2021-06-23] MEDS: 0.9 % Sodium Chloride Flush 3 ML SYRINGE IVFLUSH ×2 (16:18→19:40)
[2021-06-23] MEDS: Montelukast Sodium 10 MG TABLET PO (19:40)
[2021-06-24] VITALS: BP 161/70; PULSE 101; RESP 17; TEMP 36.8; O2SAT 96
[2021-06-24] MEDS: traZODone HCL 100 MG TABLET PO (00:52)
[2021-06-24] MEDS: methylPREDNISolone Sod Succ 40 MG/ML VIAL IVPUSH ×2 (00:52→09:57)
[2021-06-24] MEDS: Acetaminophen 325 MG TABLET 650 MG PO (00:52)
[2021-06-24 04:00] VITALS: BP 169/99; PULSE 92; RESP 17; TEMP 36.6; O2SAT 96
[2021-06-24 07:42] VITALS: BP 186/95; PULSE 93; RESP 19; TEMP 36.3; O2SAT 98
[2021-06-24 08:02] VITALS: PULSE 107; RESP 20; O2SAT 96
--- NOTE | 2021-06-24 09:46 | PM.DS ---
DS: Providers Provider Date of Service: 06/24/21 Date of admission: 06/22/21 14:06 Primary care physician: Analisa Chavez MD DS: Diagnosis Discharge Diagnosis (1) Acute and chronic respiratory failure with hypoxia: Status: Acute (2) COPD (chronic obstructive pulmonary disease): Status: Acute DS: Summary Hospital Course Hospital Course: Chief Complaint: Shortness of breath 60-year-old female with a past medical history of hypertension, hyperlipidemia, diabetes, CAD, CHF with EF of 30%, COPD on 3 L of home oxygen 24/11, active tobacco dependence, mitral regurgitation, anxiety, depression, KELLIE noncompliant with CPAP, last hospitalization here at the end of March 2021.? She is presenting with ?shortness of as usual, her symptoms have been ongoing since yesterday, associated with dry cough, no fever and has continued to smoke during that time frame.? She was noted to be hypoxic with O2 88. Covid is negative, CXR no PNA.? She is vaccinated with 1 dose of covid vaccine more than a year ago.. She is not sure which one Hospital course: Patient was admitted and treated with IV solumedrol, oxygen, and bronchodilators by Neb and overall has significantly improved and would like to go home. We talk about the need to stop smoking altoghter. To continue use of Oxygen, will discharge with predispose 40 mg for 4 more days and then go back to maintenance dose for of 5 mg daily. Time Spent with Patient Time attestation: Total time spent providing and/or coordinating discharge services: Discharge coordination time: Greater than 30 minutes Quality: Stroke Does the patient have a stroke diagnosis?: No Physical Exam Vital Signs: Vital Signs: Last Vital Signs Temp 97.3 F 06/24/21 07:42 Pulse 107 H 06/24/21 08:02 Resp 20 06/24/21 08:02 BP 186/95 H 06/24/21 07:42 Pulse Ox 98 06/24/21 07:42 Oxygen Flow Rate 4 06/22/21 10:38 BMI result Body Mass Index 24.2 DS: Data Data Completed and Pending Completed studies during hospitalization [Text1]: Procedures Assistance with Respiratory Ventilation, Less than 24 Consecutive Hours, Continuous Positive Airway Pressure (03/30/21) Labs on day of discharge: Preliminary micro results at discharge 06/22/21 11:21 Blood Culture - Preliminary Blood - Venous No growth after 24 hours. 06/22/21 11:13 Blood Culture - Preliminary Blood - Venous No growth after 24 hours. 06/22/21 14:59 Urine Culture - Preliminary Urine clean catch - Urine queen top Culture too young to evaluate. Discharge Plan Discharge Anticipated Discharge Date/Time: 06/24/21 09:36 Patient Disposition: Home, Self-Care Discharge Diagnosis: acute on chronic respiratory failure due to exacerbation of COPD. Referrals: Analisa Carr MD [Primary Care Provider] - 1 Week Discharge Medications: New prednisone 20 mg tablet 40 mg PO DAILY Qty: 4 0RF Continued montelukast 10 mg tablet 10 mg PO BEDTIME Qty: 30 11RF isosorbide mononitrate 30 mg tablet extended release 24 hr 30 mg PO DAILY 90 Days Qty: 90 3RF Protocol: Hold for SBP< HOLD for SBP < : 90 sertraline 100 mg tablet 200 mg PO DAILY 90 Days Qty: 180 1RF quetiapine 50 mg tablet 50 mg PO BID 90 Days Qty: 180 1RF Spiriva with HandiHaler 18 mcg capsule, w/inhalation device 1 cap inhalation DAILY 30 Days Qty: 30 5RF meclizine 25 mg tablet 25 mg PO TID PRN (Reason: dizziness) 30 Days Qty: 90 0RF furosemide 40 mg tablet 40 mg PO DAILY Qty: 30 0RF trazodone 50 mg tablet 100 mg PO BEDTIME PRN (Reason: Sleep) 0RF folic acid 1 mg Tablet 1 mg PO DAILY Qty: 90 4RF Nicotrol 10 mg cartridge 1 inh inhalation Q2H PRN (Reason: Smoking Cessation) 0RF spironolactone 25 mg tablet 1 tab PO DAILY 0RF prednisone 5 mg tablet 1 tab PO DAILY 0RF losartan 50 mg tablet 50 mg PO DAILY 0RF Protocol: Hold for SBP< HOLD for SBP < : 90 Discharge Orders: Discharge Order (Routine); Ordered 06/24/21 Ordered By: Sahil Yost Diet: advance to usual diet Activity on Discharge: As tolerated Stand Alone Forms: Patient Portal Discharge page Care Plan Goals: prevent rehospialization from copd Health Concerns: Chronic respiratory failure, COPD oxygen dependent Plan of Treatment: take prednisone as directed 40 mg daily until completion then go back to your 5 mg daily maintenance dose. Assessment: As above
[2021-06-24] MEDS: Furosemide 40 MG TABLET PO (09:56)
[2021-06-24] MEDS: Sertraline HCL 100 MG TABLET 200 MG PO (09:56)
[2021-06-24] MEDS: Folic Acid 1 MG TABLET PO (09:57)
[2021-06-24] MEDS: Spironolactone 25 MG TABLET PO (09:57)
[2021-06-24] MEDS: 0.9 % Sodium Chloride Flush 3 ML SYRINGE IVFLUSH (09:57)
[2021-06-24] MEDS: Isosorbide Mononitrate 30 MG TAB.ER.24H PO (09:57)
[2021-06-24] MEDS: QUEtiapine Fumarate 50 MG TABLET PO (09:57)
[2021-06-24] MEDS: Losartan Potassium 50 MG TABLET PO (09:57)
--- NOTE | 2021-06-24 10:45 | MHC.CM.PN ---
PT TO DC HOME TODAY WITH RESUMPTION OF [facility]. BLS TRANSPORT SCHEDULED FOR 1130 HOURS
[2021-06-25 09:36] LABS: VBG Base Excess 5.2 mmol/L; VBG HCO3 29 mmol/L (22-26); VBG pCO2 40 mmHg; VBG pH 7.46 (7.32-7.43); VBG pO2 50 mmHg
== END 2021-06-24 11:49 | disposition home or self-care (01) | DRG 140 ==
LOC: HO.ED 12:23 → HO.EDOVER 14:31 → HO.S3 06-23 13:53
PROVIDERS: Physician Assistant; Admitting Provider Internal Medicine; Emergency Provider Emergency Medicine; PCP Internal Medicine; Visit Provider Internal Medicine
DX: J44.1 Chronic obstructive pulmonary disease with (acute) exacerbation (principal); J96.21 Acute and chronic respiratory failure with hypoxia; I50.23 Acute on chronic systolic (congestive) heart failure; I27.20 Pulmonary hypertension, unspecified; Z99.81 Dependence on supplemental oxygen; I11.0 Hypertensive heart disease with heart failure; F17.210 Nicotine dependence, cigarettes, uncomplicated; F32.A Depression, unspecified; F41.9 Anxiety disorder, unspecified; G47.33 Obstructive sleep apnea (adult) (pediatric); Z71.6 Tobacco abuse counseling; Z91.19 Patient's noncompliance with other medical treatment and regimen; E78.5 Hyperlipidemia, unspecified; E11.9 Type 2 diabetes mellitus without complications; Z20.822 Contact with and (suspected) exposure to COVID-19; Z99.89 Dependence on other enabling machines and devices; Z79.899 Other long term (current) drug therapy
CPT/HCPCS: 36415; 71045; 80048; 80076; 81001; 82803; 83605; 83735; 83880; 84484; 85025; 87040; 87086; 87635; 93005; 94640; 94644; 96365; 96366; 96367; 96375; 99285; J0456; J0696; J1650; J1940; J2920; J2930; J3475

== ENCOUNTER → 2021-10-10 13:30 | Outpatient (BNVA) | payer OTHER, SELFPAY | PROVIDERS: PCP Internal Medicine; Referring Provider Internal Medicine; Visit Provider Internal Medicine Cardiovascular Disease | DX: R06.00 Dyspnea, unspecified (principal) | CPT/HCPCS: 93005; 99212 ==

== ENCOUNTER 2021-10-10 14:18 | Inpatient (IN) | payer OTHER, SELFPAY ==
[2021-10-10] VITALS (11 sets, daily range): BP systolic 101–166; BP diastolic 87–101; PULSE 91–130; RESP 14–34; TEMP 36.2–36.9; O2SAT 51–92; BMI 48.2
--- NOTE | ~2021-10-10 | XR_ITS ---
EXAMINATION: XR CHEST CLINICAL INFORMATION: Shortness of breath COMPARISON: June 22, 2021 TECHNIQUE: AP portable view of the chest was obtained. FINDINGS: There is some bibasilar disease present which may relate to atelectasis or possible pneumonitis. No pneumothorax or significant pleural effusion is identified. There is some diminished vascularity seen in the upper lobes bilaterally right greater than left which may be related to emphysematous change or bullous disease. The cardiopericardial silhouette is enlarged. There appears to be some vascular congestion present with some mild bronchial wall thickening seen as well as prominence of the azygos vein. No definite airspace edema noted. XR/XR chest 1V IMPRESSION: Pulmonary vascular congestion without airspace edema. Probable bibasilar atelectasis. Emphysematous change versus bullous disease.
--- NOTE | ~2021-10-10 | XR_ITS ---
EXAMINATION: XR CHEST CLINICAL INFORMATION: Worsening hypoxia COMPARISON: Previous chest x-ray most recent October 10 TECHNIQUE: Frontal view of the chest was obtained. FINDINGS: The cardiac silhouette is enlarged but stable. Hilar and mediastinal contours are unremarkable. There is increased attenuation at the lung bases. This may be related to overlying soft tissues. The lungs are otherwise clear. There is no definite pleural effusion. There is no pneumothorax. No acute bone abnormality is seen. XR/XR chest 1V IMPRESSION: Stable enlargement of the cardiac silhouette. Increased attenuation at the lung bases, question related to overlying soft tissues.
--- NOTE | 2021-10-10 14:35 | ECG_ITS ---
Test Reason : sob Blood Pressure : / mmHG Vent. Rate : 102 BPM Atrial Rate : 000 BPM P-R Int : 000 ms QRS Dur : 142 ms QT Int : 408 ms P-R-T Axes : 000 000 010 degrees QTc Int : 531 ms Artifact in tracing Likely sinus rhythm Right bundle branch block Abnormal ECG When compared with ECG of 22-JUN-2021 10:59, No significant changes seen Referred By: Rebecca Trinidad Electronically Signed By:NATALIA SHANNON
[2021-10-10] MEDS: Albuterol Sulfate (0.083%) 2.5 MG/3 ML VIAL.NEB 5 MG INHALE (14:40)
[2021-10-10 14:46] LABS: MANUAL DIFF FLAG NO
[2021-10-10 14:48] LABS: Basophils Percent Auto 0.2 % (0-2); Eosinophils Percent Auto 0.1 % (0-4); Hemoglobin 10.7 g/dl (12.0-16.0); Imm Gran Abs Auto 0.04 X10*3/uL (0.00-0.03); Imm Gran Pct Auto 0.4 % (0.0-0.4); Lymphocytes Absolute Auto 1.6 X10*3/uL (1.2-4.9); Lymphocytes Percent Auto 16.6 % (20-40); Mean Corpuscular HGB Conc 29.7 g/dl (31.0-35.0); Mean Corpuscular Hemoglobin 23.8 pg (27.0-33.0); Mean Platelet Volume 10.1 fL (9.4-12.3); Monocytes Absolute Auto 0.6 X10*3/uL (0.1-1.2); Monocytes Percent Auto 5.9 % (2-11); Neutrophils Absolute Auto 7.3 x10*3/uL (2.0-8.3); Neutrophils Percent Auto 76.8 % (45-73); Platelet Count 208 X10*3/uL (160-400); Red Cell Distribution Width 15.9 % (11.0-16.0); White Blood Count 9.5 X10*3/uL (4.8-10.8)
[2021-10-10] MEDS: methylPREDNISolone Sod Succ 125 MG/2 ML VIAL IVPUSH (14:50)
--- NOTE | 2021-10-10 14:55 | ED_ITS ---
HPI - SOB/Dyspnea General Chief Complaint: Upper Respiratory Symptoms Stated Complaint: sob Time Seen by Provider: 10/10/21 14:35 Source: patient Mode of arrival: ambulatory Limitations: no limitations History of Present Illness HPI Narrative: 61 yo female with history of chronic hypoxic respiratory failure on 2-4 L NC, COPD/asthma, active smoker, non-schemic cardiomyopathy, CHF w/ EF 30%, KELLIE noncompliant with CPAP, iron deficiency anemia who presents to the ER from Cardiololgy office. She was seen there for a long overdue follow up, had EKG done showing sinus tachycadia HR 109. She was saturating 93% on her baseline O2. She came to the ER for acute on chronic SOB after the appointment. She was found to be saturating 51%. Her oxygen tank was empty. She denies any chest pain. She reports intermittently bringing up white phlegm which is her baseline. No fever, chills, N/V/D or abdominal pain. MD elicited complaint: shortness of breath Pertinent past history: COPD and asthma Onset (ago): hour(s) Timing: constant Severity: similar to previous episodes Exacerbating factors: exertion Relieving factors: oxygen, rest and bronchodilators Known history of: COPD, asthma and congestive heart failure Associated symptoms: cough, wheezing and sputum production Treatment prior to arrival: none Related Data Home oxygen amount: 3 liters Home Medications Medication Instructions Recorded Confirmed trazodone 50 mg tablet 50 - 100 mg PO BEDTIME PRN Sleep 03/08/20 10/10/21 nicotine 10 mg inhalation 1 inh inhalation Q2H PRN Smoking 03/30/21 10/10/21 cartridge (Nicotrol) Cessation losartan 50 mg tablet 50 mg PO DAILY 06/22/21 10/10/21 prednisone 5 mg tablet 1 tab PO DAILY 06/22/21 10/10/21 Previous Rx's Medication Instructions Recorded montelukast 10 mg tablet 10 mg PO BEDTIME #30 tabs 08/27/20 quetiapine 50 mg tablet 50 mg PO BID 90 days #180 tabs 12/18/20 sertraline 100 mg tablet 200 mg PO DAILY 90 days #180 tabs 12/18/20 tiotropium bromide 18 mcg capsule 1 cap inhalation DAILY 30 days #30 05/27/21 with inhalation device (Spiriva inhalations with HandiHaler) furosemide 40 mg tablet 40 mg PO DAILY #30 tabs 07/04/21 isosorbide mononitrate 30 mg 30 mg PO DAILY 90 days #90 tabs 08/15/21 tablet,extended release 24 hr folic acid 1 mg tablet 1 mg PO DAILY #90 tabs 09/01/21 meclizine 25 mg tablet 25 mg PO TID PRN dizziness 30 days 09/20/21 #90 tabs Allergies Allergy/AdvReac Type Severity Reaction Status Date / Time nicotine [Nicotine] Allergy Mild ITCHING Verified 10/10/21 13:42 WITH THE PATCHES topiramate Allergy Mild inadequealte Verified 10/10/21 13:42 response Review of Systems Review of Systems: Constitutional: No Fever, No Chills ENT/Mouth: No sore throat, No Rhinorrhea, No Swallowing Difficulty Eyes: No Eye Pain, No Swelling, No Redness Cardiovascular: No Chest Pain, + SOB, + Orthopnea, No Edema Respiratory: + Cough, + Sputum, + Wheezing, + dyspnea Gastrointestinal: No Nausea, No Vomiting, No Diarrhea, No abdominal Pain, No Hematochezia, No Melena Genitourinary: No Dysuria, No Urinary Frequency, No Hematuria Musculoskeletal: No joint pain, No Myalgias Skin: No Skin Lesions, No rash Neuro: No Weakness, No Numbness, No Dizziness, No Headache Psych: No Anxiety/Panic, No Depression Heme/Lymph: No Bruising, No Lymphadenopathy Endocrine: No Polyuria, No Polydipsia PMFSH Past Medical History Attestation statement: The following information was validated with the patient. Medical History Acute and chronic respiratory failure with hypoxia Acute exacerbation of chronic obstructive airways disease Acute exacerbation of chronic obstructive pulmonary disease Acute on chronic respiratory failure with hypoxemia Acute on chronic respiratory failure with hypoxemia Anemia Anxiety Cardiomyopathy CHF (congestive heart failure) Chronic respiratory failure Community acquired pneumonia Congestive heart failure Congestive heart failure COPD (chronic obstructive pulmonary disease) COPD (chronic obstructive pulmonary disease) COPD (chronic obstructive pulmonary disease) COPD exacerbation COPD exacerbation Depression Diabetes Essential hypertension Essential hypertension HFrEF (heart failure with reduced ejection fraction) HLD (hyperlipidemia) HTN (hypertension) Hypertension Hypoxia Low back pain Mitral regurgitation Non-rheumatic mitral regurgitation Normocytic anemia KELLIE (obstructive sleep apnea) Osteoporosis Postmenopausal Pulmonary hypertension Respiratory failure, acute Severe chronic obstructive pulmonary disease Supplemental oxygen dependent Tobacco abuse Surgical History Bilateral ankle fractures History of total abdominal hysterectomy Family History Family History Father No problems noted. Mother Liver cancer Hypertension Social History Social History (Updated 10/10/21 @ 13:56 by IVANIA Richardson) Household Members: None Household Members Other:: 1 Housing: Apartment Do you presently have visiting nurse or other home services: No ([employer]) Alcohol intake: never Patient Tobacco Use Status: Current everyday Tobacco user Tobacco use type: Cigarette Cigarette Packs Per Day: 1 Cigarettes Per Day: 5 Years Smoked: 50 +/- Second Hand Smoke Exposure: No Use of substances other than those prescribed or required for medical reasons: No Advance Directives: Yes Advance Directives on File: Yes Advance Directives Date on File: 04/30/20 service: No Current occupational status: unemployed, retired and disabled Physical Exam Vital Signs: Vital Signs: Last Vital Signs Pulse 91 10/10/21 16:16 Resp 14 10/10/21 16:16 BP 163/89 H 10/10/21 15:49 Pulse Ox 88 L 10/10/21 15:49 O2 Del Method 10/10/21 15:49 O2 Flow Rate 6 10/10/21 15:49 BMI result Body Mass Index 48.2 Appearance: Alert. Oriented X3. No acute distress. Eyes: Pupils equal, round and reactive to light. ENT: Pharynx normal. Neck: Normal inspection. Neck supple. CVS: Tachycardic, regular rhythm, HR low 100s. Pulses normal. Respiratory: Moderate respiratory distress. Respiratory rate 30. Breath sounds with diffuse inspiratory and expiratory wheezes throughout. Abdomen: obese, Soft and nontender. +BS x4 Skin: Skin warm and dry. Normal skin color. Normal skin turgor. No rashes. Extremities: No lower extremity edema. No calf tenderness Neuro: Oriented X 3. No motor deficit. No sensory deficit. Course Course Course Narrative: 61-year-old female with history of O2 dependent COPD, asthma, KELLIE noncompliant with CPAP, CHF with EF 30%, history of aspiration pneumonia and community- acquired pneumonia who presents to the ER with shortness of breath and hypoxia. Her saturations were in the 50s. There was oxygen flowing from her O2 tank. She was placed on 6 L nasal cannula on a different O2 tank brought to a treatment room. Her SpO2 improved to the mid 80s. She is diffusely wheezy throughout. Respiratory at the bedside and giving her nebulizer treatment now. IV established, will get chest x-ray, give IV steroids for COPD exacerbation and monitor closely. Hold off on IVF given her CHF history. Reevaluation(s) Reevaluation #1: No leukocytosis on her blood work. H&H is at her baseline. She is hypokalemic with potassium of 2.9, 40 mEq oral KCl been ordered. Lactic acid mildly elevated 2.7, most likely due to respiratory distress and albuterol. No evidence of sepsis at this time. Her chest x-ray does not show any focal infiltrates - bibasilar atelectasis emphysematous changes, pulmonary vascular congestion without edema. Her BNP is 373 which is improved from her prior, 394 back in June. In the past she has been as high as 2900. Her troponin seems to be at her baseline 45.5. Doubt ACS. EKG with question of AFib however P waves are evident so less likely. She has severe COPD with poor reserve, she is taking a while to recover. She remains on 6 L nasal cannula. Her lung sounds are diminished at this time, wheezing is improved. SpO2 ranging from 82-88% on the 6 L nasal cannula. Poor waveform. Will get ABG to assess PA O2. Reevaluation #2: PaO2 54 on ABG, with saturation 86% on 6L NC. On re-evaluation she is saturation 97% on 6L. Fio2 weaned to baseline 4L NC and she is maintaining saturations 94%. However she remains tachypenic and SOB, unable to speak in complete sentences. Patient ambulated to the bathroom on 6 L nasal cannula. She became very tachypneic and short of breath. SpO2 dropped to 79%. Will plan for admission for COPD exacerbation. Will cover with doxycycline and rocephin for COPD exacerbation. QTC is 512 MDM - SOB/Dyspnea Medical Records Attestation: I reviewed the patient's medical records. Lab Data Attestation: I reviewed the patient's lab results. Result diagrams: 10/10/21 14:42 10/10/21 14:42 Labs: Lab Results 06/09/22 06/09/22 06/09/22 Range/Units 14:42 14:42 14:42 WBC 9.5 (4.8-10.8) X10*3/uL RBC 4.50 (4.20-5.50) X10*6/uL Hgb 10.7 L (12.0-16.0) g/dl Hct 36.0 L (37.0-47.0) % MCV 80.0 (80.0-98.0) fL MCH 23.8 L (27.0-33.0) pg MCHC 29.7 L (31.0-35.0) g/dl RDW 15.9 (11.0-16.0) % Plt Count 208 (160-400) X10*3/uL MPV 10.1 (9.4-12.3) fL Immature Gran % (Auto) 0.4 (0.0-0.4) % Neut % (Auto) 76.8 H (45-73) % Lymph % (Auto) 16.6 L (20-40) % Elk % (Auto) 5.9 (2-11) % Eos % (Auto) 0.1 (0-4) % Baso % (Auto) 0.2 (0-2) % Lymph # (Auto) 1.6 (1.2-4.9) X10*3/uL Elk # (Auto) 0.6 (0.1-1.2) X10*3/uL Eos # (Auto) 0.0 (0.0-0.4) X10*3/uL Baso # (Auto) 0.0 (0.0-0.2) X10*3/uL Abs Immat Gran (auto) 0.04 H (0.00-0.03) X10*3/uL Absolute Neuts (auto) 7.3 (2.0-8.3) x10*3/uL Absolute Nucleated RBC 0.000 (0.0-0.012) X10*3/uL Nucleated RBC % (auto) 0.0 (0.0-0.2) /100WBC O2 Saturation % ABG pH at Pt Temp (7.35-7.45) ABG pCO2 at Pt Temp (32-45) mmHg ABG pO2 at Pt Temp (83-108) mmHg ABG HCO3 (22-26) mmol/L ABG Base Excess (Actual) mmol/L Sodium 140 (135-145) mmol/L Potassium 2.9 L (3.3-5.1) mmol/L Chloride 98 (96-108) mmol/L Carbon Dioxide 29 (22-29) mmol/L Anion Gap 16 (12-20) BUN 12 D (9-16) mg/dL Creatinine 0.87 (0.5-1.4) mg/dL Estim Creat Clear Calc 60.0 Estimated GFR > 60 Random Glucose 208 H (60-115) mg/dL Lactic Acid (0.5-2.0) mmol/L Calcium 9.1 (8.4-10.2) mg/dL Magnesium 1.9 (1.6-2.6) mg/dL Total Bilirubin 0.3 (0.0-1.0) mg/dL Direct Bilirubin < 0.2 (0.0-0.5) mg/dL AST 17 D (5-31) U/L ALT 13 (0-31) U/L Alkaline Phosphatase 133 H (39-117) U/L Troponin I High Sens 45.5 H (<3.5-17.0) ng/L B-Natriuretic Peptide 373 H (<100) pg/mL Total Protein 8.0 (6.5-8.0) g/dL Albumin 4.4 (3.5-5.0) g/dL COVID-19 (ANEL) (Negative) COVID-19 Clin Com 10/10/21 10/10/21 10/10/21 Range/Units 14:55 14:56 16:14 WBC (4.8-10.8) X10*3/uL RBC (4.20-5.50) X10*6/uL Hgb (12.0-16.0) g/dl Hct (37.0-47.0) % MCV (80.0-98.0) fL MCH (27.0-33.0) pg MCHC (31.0-35.0) g/dl RDW (11.0-16.0) % Plt Count (160-400) X10*3/uL MPV (9.4-12.3) fL Immature Gran % (Auto) (0.0-0.4) % Neut % (Auto) (45-73) % Lymph % (Auto) (20-40) % Elk % (Auto) (2-11) % Eos % (Auto) (0-4) % Baso % (Auto) (0-2) % Lymph # (Auto) (1.2-4.9) X10*3/uL [place] # (Auto) (0.1-1.2) X10*3/uL Eos # (Auto) (0.0-0.4) X10*3/uL Baso # (Auto) (0.0-0.2) X10*3/uL Abs Immat Gran (auto) (0.00-0.03) X10*3/uL Absolute Neuts (auto) (2.0-8.3) x10*3/uL Absolute Nucleated RBC (0.0-0.012) X10*3/uL Nucleated RBC % (auto) (0.0-0.2) /100WBC O2 Saturation 86.0 % ABG pH at Pt Temp 7.49 H (7.35-7.45) ABG pCO2 at Pt Temp 39 (32-45) mmHg ABG pO2 at Pt Temp 54 L (83-108) mmHg ABG HCO3 30 H (22-26) mmol/L ABG Base Excess (Actual) 6.7 mmol/L Sodium (135-145) mmol/L Potassium (3.3-5.1) mmol/L Chloride (96-108) mmol/L Carbon Dioxide (22-29) mmol/L Anion Gap (12-20) BUN (9-16) mg/dL Creatinine (0.5-1.4) mg/dL Estim Creat Clear Calc Estimated GFR Random Glucose (60-115) mg/dL Lactic Acid 2.7 H* (0.5-2.0) mmol/L Calcium (8.4-10.2) mg/dL Magnesium (1.6-2.6) mg/dL Total Bilirubin (0.0-1.0) mg/dL Direct Bilirubin (0.0-0.5) mg/dL AST (5-31) U/L ALT (0-31) U/L Alkaline Phosphatase (39-117) U/L Troponin I High Sens (<3.5-17.0) ng/L B-Natriuretic Peptide (<100) pg/mL Total Protein (6.5-8.0) g/dL Albumin (3.5-5.0) g/dL COVID-19 (ANEL) Negative (Negative) COVID-19 Clin Com See Note ECG Data Attestation: I personally reviewed and interpreted this ECG as follows: ECG interpretation date: 10/10/21 ECG interpretation time: 16:40 Prior ECG tracings: available for review Interpretation: sinus tachycardia, HR 102 bpm, P-waves visible, RBBB, t-wave inversion in lead III Procedures ABG Interpretation ABG Interpretation 1: Interpretation: abnormal, respiratory alkalosis and other (Acute on chronic hypoxic respiratory failure.) Critical Care Time Critical Care Time Critical Care Time: Yes Total Critical Care Time: 53 Attestation: I have personally provided critical care time exclusive of time spent on separately billable procedures. Time includes review of lab data, radiology results, discussion with consultants, and monitoring for potential decompensation. Intervention performed as documented.
--- NOTE | 2021-10-10 14:56 | PC.NURSE ---
pt alert and oriented, skin pwd, respirations even and unlabored, pt sating low 80's on 6l pt is oxygen depended at baseline, ls wheezing and diminished, ns on the monitor at 98
[2021-10-10 15:06] LABS: Alanine Aminotransferase 13 U/L (0-31); Albumin Level 4.4 g/dL (3.5-5.0); Alkaline Phosphatase 133 U/L (39-117); Anion Gap 16 (12-20); Aspartate Amino Transferase 17 U/L (5-31); B Type Natriuretic Peptide 373 pg/mL (<100); Bilirubin Direct < 0.2 mg/dL (0.0-0.5); Bilirubin Total 0.3 mg/dL (0.0-1.0); Blood Urea Nitrogen 12 mg/dL (9-16); Calcium 9.1 mg/dL (8.4-10.2); Carbon Dioxide 29 mmol/L (22-29); Chloride 98 mmol/L (96-108); Estimated Glomerular Filt Rate > 60; Glucose Random 208 mg/dL (60-115); Magnesium 1.9 mg/dL (1.6-2.6); Potassium 2.9 mmol/L (3.3-5.1); Sodium 140 mmol/L (135-145); Troponin-I High Sensitivity 45.5 ng/L (<3.5-17.0)
[2021-10-10 15:25] LABS: COVID-19 Test Negative (Negative); IDNOW Serial# 55D5AD1C
[2021-10-10 15:28] LABS: Lactic Acid 2.7 mmol/L (0.5-2.0)
[2021-10-10] MEDS: Potassium Chloride ER 20 MEQ TAB.ER.PRT 40 MEQ PO (15:44)
[2021-10-10] MEDS: Albuterol/Iprat 2.5/0.5MG 3 ML AMPUL.NEB INHALE ×2 (16:15→20:25)
[2021-10-10 16:22] LABS: ABG Base Excess 6.7 mmol/L; ABG HCO3 30 mmol/L (22-26); ABG pCO2 39 mmHg (32-45); ABG pH 7.49 (7.35-7.45); ABG pO2 54 mmHg (83-108)
[2021-10-10 17:00] LABS: Reflex Lactate? Lactic Acid Added
--- NOTE | 2021-10-10 17:08 | PHA.MEDREC ---
Pharmacy Consult ? Medication Reconciliation Pharmacy has completed the medication reconciliation. Fmd Teacher needed. Pt poor historian, unable to name what she takes. Asked if she takes everything that has been filled at the pharmacy and she agreed.
--- NOTE | 2021-10-10 17:36 | PC.NURSE ---
pt ambulated to the bathroom with oxygen at 6l, got very winded and tacypnic breathing about 26, sat at 82% on the 6l, warren mayo
[2021-10-10 17:55] LABS: Appearance Urine CLEAR; Color Urine YELLOW; Glucose Urine UA 100 MG/DL (NEG); Leukocyte Esterase Urine TRACE (NEG); Nitrite Urine NEG (NEG); Specific Gravity - Urine <= 1.005 (1.005-1.025); Urine Blood NEG (NEG); Urine Ketones NEG (NEG); Urine Protein NEG (NEG-TRACE)
[2021-10-10] MEDS: cefTRIAXone sodium 1 GM in 0.9 % Sodium Chloride 50 ML IV (17:57)
[2021-10-10 18:11] LABS: ~Lactic Acid-LAB USE ONLY 3.6 mmol/L (0.5-2.0)
--- NOTE | 2021-10-10 18:11 | P.HPHOSP_ITS ---
History of Present Illness Date of Service: 10/10/21 Chief Complaint: sob 61F presented with sob. Patient says that she is chronically short of breath, she is on 3-4 L home oxygen for COPD and nonischemic cardiomyopathy. She reports worsening shortness of breath over the past month and significantly worse today while at cardiology's office. She also reports about 10 lb weight gain over unclear timespan, denies any swelling. Denies fever, chest pain, chills. During her visit to Cardiology she was noted to be tachypneic, wheezy and was sent to the ER. In the ER patient was hypoxic to the 50s on room air, recall covered to low 90s on 8 L. chest x-ray showed pulmonary vascular congestion. Review of Systems Review of Systems: Constitutional: Denies fever, denies Chills Eyes: denies blurry vision ENT: denies sore throat CVS: denies chest pain Respiratory: dyspnea GI: no abdominal pain : denies dysuria MSK: denies neck pain Skin: denies rash Neuro: denies specific motor weakness Psych: denies suicidal ideation Endocrine: denies heat/cold intolerance Hematologic: denies easy bleeding Allergy: denies hives [facility] Medical History Acute and chronic respiratory failure with hypoxia Acute exacerbation of chronic obstructive airways disease Acute exacerbation of chronic obstructive pulmonary disease Acute on chronic respiratory failure with hypoxemia Acute on chronic respiratory failure with hypoxemia Anemia Anxiety Cardiomyopathy CHF (congestive heart failure) Chronic respiratory failure Community acquired pneumonia Congestive heart failure Congestive heart failure COPD (chronic obstructive pulmonary disease) COPD (chronic obstructive pulmonary disease) COPD (chronic obstructive pulmonary disease) COPD exacerbation COPD exacerbation Depression Diabetes Essential hypertension Essential hypertension HFrEF (heart failure with reduced ejection fraction) HLD (hyperlipidemia) HTN (hypertension) Hypertension Hypoxia Low back pain Mitral regurgitation Non-rheumatic mitral regurgitation Normocytic anemia KELLIE (obstructive sleep apnea) Osteoporosis Postmenopausal Pulmonary hypertension Respiratory failure, acute Severe chronic obstructive pulmonary disease Supplemental oxygen dependent Tobacco abuse Family History Father No problems noted. 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) Alcohol intake: never Patient Tobacco Use Status: Current everyday Tobacco user Tobacco use type: Cigarette Cigarette Packs Per Day: 1 Cigarettes Per Day: 5 Years Smoked: 50 +/- Second Hand Smoke Exposure: No Use of substances other than those prescribed or required for medical reasons: No Advance Directives: Yes Advance Directives on File: Yes Advance Directives Date on File: 04/30/20 service: No Current occupational status: unemployed, retired and disabled Meds Allergies Allergy/AdvReac Type Severity Reaction Status Date / Time nicotine [Nicotine] Allergy Mild ITCHING Verified 10/10/21 13:42 WITH THE PATCHES topiramate Allergy Mild inadequealte Verified 10/10/21 13:42 response Active Medications: Current Medications Albuterol/Ipratropium (Albuterol/Iprat 2.5/0.5mg 3 Ml Ampul.Neb) 3 ml INHALE Q4H PRN PRN Reason: sob Folic Acid (Folic Acid 1 Mg Tablet) 1 mg PO DAILY [facility]MAR Furosemide (Furosemide 40 Mg/4 Ml Vial) 40 mg IVPUSH BID@0900,1800 WALDEMAR; Protocol Doxycycline Hyclate 100 mg/ (Sodium Chloride) 250 mls @ 166.67 mls/hr IV ONCE ONE Stop: 10/10/21 18:55 Isosorbide Mononitrate (Isosorbide Mononitrate 30 Mg Tab.Er.24h) 30 mg PO DAILY WALDEMAR; Protocol Losartan Potassium (Losartan Potassium 50 Mg Tablet) 50 mg PO DAILY WALDEMAR; Protocol Methylprednisolone Sodium Succinate (Methylprednisolone Sod Succ 40 Mg/Ml Vial) 40 mg IVPUSH Q12H [facility] Montelukast Sodium (Montelukast Sodium 10 Mg Tablet) 10 mg PO BEDTIME [facility] Pharmacy Consult (Consult Rx Perform Med Rec) 1 each MISCELLANE ONCE PRN PRN Reason: Consult order Quetiapine Fumarate (Quetiapine Fumarate 50 Mg Tablet) 50 mg PO BID [facility] Sertraline HCl (Sertraline Hcl 100 Mg Tablet) 200 mg PO DAILY [facility] Trazodone HCl (Trazodone Hcl 50 Mg Tablet) 50 - 100 mg PO BEDTIME PRN PRN Reason: Sleep Home Medications Medication Instructions Recorded Confirmed Last Taken Type trazodone 50 mg tablet 50 - 100 mg PO BEDTIME PRN Sleep 03/08/20 10/10/21 03/29/21 History nicotine 10 mg inhalation 1 inh inhalation Q2H PRN Smoking 03/30/21 10/10/21 03/30/21 History cartridge (Nicotrol) Cessation losartan 50 mg tablet 50 mg PO DAILY 06/22/21 10/10/21 06/21/21 History prednisone 5 mg tablet 1 tab PO DAILY 06/22/21 10/10/21 06/21/21 History Physical Exam Vital Signs and Narrative: Vital Signs: Last Vital Signs Temp 98.4 F 10/10/21 17:36 Pulse 93 10/10/21 17:36 Resp 17 10/10/21 17:36 BP 163/100 H 10/10/21 17:36 Pulse Ox 88 L 10/10/21 17:36 O2 Del Method 10/10/21 17:36 O2 Flow Rate 6 10/10/21 17:36 BMI result Body Mass Index 48.2 General: in acute distress HEENT: atraumatic Neck: normal to visual inspection CVS: S1, S2, RRR Resp: Crackles bilateral, using accessory muscles, limitted speech due to sob Chest: non tender GI: soft, non tender, non distended : no CVA tenderness Skin: no rashes Extremities: no edema Neuro: Oriented X3, grossly intact Psych: cooperative Results Labs CBC and Chem 7: 10/10/21 14:42 10/10/21 14:42 Labs: Laboratory Results - last 24 hr 10/10/21 10/10/21 10/10/21 14:42 14:42 14:42 MCV 80.0 MCH 23.8 L MCHC 29.7 L RDW 15.9 Plt Count 208 MPV 10.1 Immature Gran % (Auto) 0.4 Neut % (Auto) 76.8 H Lymph % (Auto) 16.6 L [place] % (Auto) 5.9 Eos % (Auto) 0.1 Baso % (Auto) 0.2 Lymph # (Auto) 1.6 [place] # (Auto) 0.6 Eos # (Auto) 0.0 Baso # (Auto) 0.0 Abs Immat Gran (auto) 0.04 H Absolute Neuts (auto) 7.3 Absolute Nucleated RBC 0.000 Nucleated RBC % (auto) 0.0 O2 Saturation ABG pH at Pt Temp ABG pCO2 at Pt Temp ABG pO2 at Pt Temp ABG HCO3 ABG Base Excess (Actual) Anion Gap 16 Estim Creat Clear Calc 60.0 Estimated GFR > 60 Random Glucose 208 H Lactic Acid Calcium 9.1 Magnesium 1.9 Total Bilirubin 0.3 Direct Bilirubin < 0.2 AST 17 D ALT 13 Alkaline Phosphatase 133 H Troponin I High Sens 45.5 H B-Natriuretic Peptide 373 H Total Protein 8.0 Albumin 4.4 Urine Color Urine Appearance Urine pH Ur Specific [place] Urine Protein Urine Glucose (UA) Urine Ketones Urine Blood Urine Nitrite Ur Leukocyte Esterase COVID-19 (ANEL) COVID-19 Clin Com 10/10/21 10/10/21 10/10/21 14:55 14:56 16:14 MCV MCH MCHC RDW Plt Count MPV Immature Gran % (Auto) Neut % (Auto) Lymph % (Auto) [place] % (Auto) Eos % (Auto) Baso % (Auto) Lymph # (Auto) [place] # (Auto) Eos # (Auto) Baso # (Auto) Abs Immat Gran (auto) Absolute Neuts (auto) Absolute Nucleated RBC Nucleated RBC % (auto) O2 Saturation 86.0 ABG pH at Pt Temp 7.49 H ABG pCO2 at Pt Temp 39 ABG pO2 at Pt Temp 54 L ABG HCO3 30 H ABG Base Excess (Actual) 6.7 Anion Gap Estim Creat Clear Calc Estimated GFR Random Glucose Lactic Acid 2.7 H* Calcium Magnesium Total Bilirubin Direct Bilirubin AST ALT Alkaline Phosphatase Troponin I High Sens B-Natriuretic Peptide Total Protein Albumin Urine Color Urine Appearance Urine pH Ur Specific [place] Urine Protein Urine Glucose (UA) Urine Ketones Urine Blood Urine Nitrite Ur Leukocyte Esterase COVID-19 (ANEL) Negative COVID-19 Clin Com See Note 10/10/21 17:45 MCV MCH MCHC RDW Plt Count MPV Immature Gran % (Auto) Neut % (Auto) Lymph % (Auto) [place] % (Auto) Eos % (Auto) Baso % (Auto) Lymph # (Auto) [place] # (Auto) Eos # (Auto) Baso # (Auto) Abs Immat Gran (auto) Absolute Neuts (auto) Absolute Nucleated RBC Nucleated RBC % (auto) O2 Saturation ABG pH at Pt Temp ABG pCO2 at Pt Temp ABG pO2 at Pt Temp ABG HCO3 ABG Base Excess (Actual) Anion Gap Estim Creat Clear Calc Estimated GFR Random Glucose Lactic Acid Calcium Magnesium Total Bilirubin Direct Bilirubin AST ALT Alkaline Phosphatase Troponin I High Sens B-Natriuretic Peptide Total Protein Albumin Urine Color YELLOW Urine Appearance CLEAR Urine pH 6.0 Ur Specific [place] <= 1.005 Urine Protein NEG Urine Glucose (UA) 100 H Urine Ketones NEG Urine Blood NEG Urine Nitrite NEG Ur Leukocyte Esterase TRACE H COVID-19 (ANEL) COVID-19 Clin Com Imaging Radiologist's Impressions: Impressions Chest X-Ray 10/10/21 14:50 IMPRESSION: Pulmonary vascular congestion without airspace edema. Probable bibasilar atelectasis. Emphysematous change versus bullous disease. Assessment and Plan (1) Acute and chronic respiratory failure: Status: Acute Plan 61F presented with sob acute on chronic hypoxic respiratory failure Secondary to acute on chronic systolic CHF (nonischemic cardiomyopathy) and COPD with acute decompensation with pulmonary hypertension IV Lasix, monitor electrolytes, cardio eval Solu-Medrol, bronchodilators No evidence of sepsis or bacterial infection, lactic acidosis likely due to albuterol and hypoxia from above Hypokalemia Replace and monitor Hypertension Losartan, Imdur Mood disorder Seroquel, sertraline Morbid obesity Weight loss recommended KELLIE Noncompliant with CPAP DVT prophylaxis with Lovenox Full code Patient is significantly short of breath and hypoxic more than her baseline chronic hypoxia, due to CHF and COPD and morbid obesity she is at high risk and likely require at least 2 midnights in the hospital. Quality Stroke Does the patient have a stroke diagnosis?: No VTE Prior VTE?: No VTE Risk Level:: Medical - moderate - high VTE Device Contraindication: Treatment Not Indicated VTE Drug Contraindication: N/A - Med Ordered
[2021-10-10 18:15] LABS: Troponin-I High Sensitivity 46.1 ng/L (<3.5-17.0)
[2021-10-10 18:20] LABS: Bacteria Urine TRACE /LPF; RBC Urine 0 /HPF (0); Squamous Epithelial Cell Urine TRACE /LPF; WBC Urine 0-2 /HPF (0-4)
[2021-10-10 18:36] LABS: ABG Refer to POC result
[2021-10-10] MEDS: Enoxaparin Sodium 40 MG/0.4 ML SYRINGE SUBCUT (18:49)
[2021-10-10] MEDS: Doxycycline Hyclate 100 MG in 0.9 % Sodium Chloride 250 ML 166.67 MG IV (18:50)
[2021-10-10] MEDS: Furosemide 100 MG/10 ML VIAL 60 MG IVPUSH (18:50)
--- NOTE | 2021-10-10 19:00 | PC.NURSE ---
Took report from Venita to assume care of Pt, Pt resting, call light in reach, this RN continues to monitor.
--- NOTE | 2021-10-10 19:33 | MHC.CM.PN ---
CM met with patient at request of Rebecca GARAY. Pt is oxygen dependent; uses 3-4L. Pt cannot remember name of company. O2 clinder has [facility] home infusion and Respiratory services label ([phone]). Pt states she has a concentrator and many oxygen tanks at home. Lives alone. Lives in elderly housing. 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 HCP on file . HCP/FIRER KILN Chanelle Walton ([phone]). D/C plan is home. Unsure if pt will need VNA services at discharge. Pt will need transportation home. Use [facility] transport to doctor visits. CM will follow for d/c needs.
[2021-10-10 19:53] LABS: Reflex Lactate? 2 Y
--- NOTE | 2021-10-10 20:00 | PC.NURSE ---
Pt O2 sat 84% on 6L NC, Pt placed on 9L via O2 mask 92%, O2 sat 88-92% ok for this Pt due to COPD diagnosis, per MD.
[2021-10-10] MEDS: QUEtiapine Fumarate 50 MG TABLET PO (21:06)
[2021-10-10] MEDS: Montelukast Sodium 10 MG TABLET PO (21:06)
[2021-10-10 21:07] LABS: ~Lactic Acid-LAB USE ONLY 4.1 mmol/L (0.5-2.0)
[2021-10-10] MEDS: traZODone HCL 50 MG TABLET PO (21:08)
--- NOTE | 2021-10-10 23:45 | PC.NURSE ---
pt desat to 82% on 6L oxymask, pt placed on nonrebreather at 10L with sp02 back to 97%, pt placed back on oxymask at 8L with sp02 at 91%
[2021-10-11] VITALS (7 sets, daily range): BP systolic 129–186; BP diastolic 92–119; PULSE 74–108; RESP 13–20; TEMP 36.4–36.7; O2SAT 91–100
--- NOTE | 2021-10-11 00:04 | PC.NURSE ---
pt continues to desat to 85% on 8L oxymask aware.
--- NOTE | 2021-10-11 00:54 | PC.NURSE ---
pt note secondary to pt care, pt sp02 88-90% on 10L oxymask
--- NOTE | 2021-10-11 02:50 | PC.NURSE ---
pt oyxgen titrated back down to 6L, pt 95%.
[2021-10-11 06:39] LABS: Hematocrit 32.3 % (37.0-47.0); Hemoglobin 9.7 g/dl (12.0-16.0); Mean Corpuscular Hemoglobin 23.8 pg (27.0-33.0); Mean Corpuscular Volume 79.2 fL (80.0-98.0); Mean Platelet Volume 10.4 fL (9.4-12.3); Platelet Count 179 X10*3/uL (160-400); Red Blood Count 4.08 X10*6/uL (4.20-5.50); Red Cell Distribution Width 16.1 % (11.0-16.0); White Blood Count 9.2 X10*3/uL (4.8-10.8)
--- NOTE | 2021-10-11 06:56 | PC.NURSE ---
PT SP02 100% ON OXYMASK AT 4L
[2021-10-11 07:19] LABS: Anion Gap 15 (12-20); Blood Urea Nitrogen 13 mg/dL (9-16); Carbon Dioxide 28 mmol/L (22-29); Chloride 104 mmol/L (96-108); Creatinine Clr Calc Pharmacy 67.8; Estimated Glomerular Filt Rate > 60; Glucose Fasting 115 mg/dL (60-99); Magnesium 1.8 mg/dL (1.6-2.6); Sodium 143 mmol/L (135-145)
[2021-10-11] MEDS: Furosemide 40 MG/4 ML VIAL IVPUSH ×2 (08:41→17:54)
[2021-10-11] MEDS: QUEtiapine Fumarate 50 MG TABLET PO ×2 (08:42→20:25)
[2021-10-11] MEDS: Losartan Potassium 50 MG TABLET PO (08:42)
[2021-10-11] MEDS: Sertraline HCL 100 MG TABLET 200 MG PO (08:42)
[2021-10-11] MEDS: Isosorbide Mononitrate 30 MG TAB.ER.24H PO (08:42)
[2021-10-11] MEDS: Folic Acid 1 MG TABLET PO (08:42)
--- NOTE | 2021-10-11 09:38 | HO.PM.IMPN ---
Subjective Subjective Date of Service: 10/11/21 Interval History: cc: sob interval history:reports improvement Cardiovascular Cardiovascular: Reports no additional cardiovascular complaints Gastrointestinal Gastrointestinal: Reports no additional gastrointestinal complaints Physical Exam Vital Signs: Vital Signs: Last Vital Signs Temp 97.1 F 10/10/21 23:44 Pulse 90 10/11/21 08:52 Resp 19 10/11/21 08:52 BP 174/119 H 10/11/21 08:50 Pulse Ox 93 10/11/21 08:52 O2 Del Method 10/11/21 08:52 O2 Flow Rate 5 10/11/21 08:52 Oxygen Flow Rate 8 10/10/21 23:44 BMI result Body Mass Index 48.2 General: AO X 3, no acute distress Resp: Crackles bilateral bases with expiratory wheezes, no accessory muscles used CVS: S1,S2,RRR GI: soft, non tender, non distended Neuro: motor grossly intact, alert Psych: appropriate affect, appropriate insight Objective Data Active Medications Acetaminophen (Acetaminophen 325 Mg Tablet) 650 mg PO Q6H PRN PRN Reason: Pain, Mild (Pain Scale 1-3) Albuterol/Ipratropium (Albuterol/Iprat 2.5/0.5mg 3 Ml Ampul.Neb) 3 ml INHALE Q4H PRN PRN Reason: sob Last Admin: 10/10/21 20:25 Dose: 3 ml Documented By: IAN Enoxaparin Sodium (Enoxaparin Sodium 40 Mg/0.4 Ml Syringe) 40 mg SUBCUT Q24H [facility] Last Admin: 10/10/21 18:49 Dose: 40 mg Documented By: VIKKI Folic Acid (Folic Acid 1 Mg Tablet) 1 mg PO DAILY [facility] Last Admin: 10/11/21 08:42 Dose: 1 mg Documented By: MEAGAN Furosemide (Furosemide 40 Mg/4 Ml Vial) 40 mg IVPUSH BID@0900,1800 [facility]; Protocol Last Admin: 10/11/21 08:41 Dose: 40 mg Documented By: MEAGAN Isosorbide Mononitrate (Isosorbide Mononitrate 30 Mg Tab.Er.24h) 30 mg PO DAILY [facility]; Protocol Last Admin: 10/11/21 08:42 Dose: 30 mg Documented By: MEAGAN Losartan Potassium (Losartan Potassium 50 Mg Tablet) 50 mg PO DAILY [facility]; Protocol Last Admin: 10/11/21 08:42 Dose: 50 mg Documented By: MEAGAN Methylprednisolone Sodium Succinate (Methylprednisolone Sod Succ 40 Mg/Ml Vial) 40 mg IVPUSH Q12H [facility] Montelukast Sodium (Montelukast Sodium 10 Mg Tablet) 10 mg PO BEDTIME [facility] Last Admin: 10/10/21 21:06 Dose: 10 mg Documented By: CHRISS Pharmacy Consult (Consult Rx Perform Med Rec) 1 each MISCELLANE ONCE PRN PRN Reason: Consult order Quetiapine Fumarate (Quetiapine Fumarate 50 Mg Tablet) 50 mg PO BID [facility] Last Admin: 10/11/21 08:42 Dose: 50 mg Documented By: MEAGAN Sertraline HCl (Sertraline Hcl 100 Mg Tablet) 200 mg PO DAILY [facility] Last Admin: 10/11/21 08:42 Dose: 200 mg Documented By: MEAGAN Sodium Chloride (0.9 % Sodium Chloride Flush 3 Ml Syringe) 3 ml IVFLUSH QSHIFT [facility] Last Admin: 10/11/21 00:17 Dose: Not Given Documented By: JAIDEN Non-Admin Reason: See Note Trazodone HCl (Trazodone Hcl 50 Mg Tablet) 50 mg PO BEDTIME PRN PRN Reason: Sleep Last Admin: 10/10/21 21:08 Dose: 50 mg Documented By: CHRISS Labs CBC & Chem 7: 10/11/21 06:24 10/11/21 06:24 Labs: Laboratory Results - last 24 hr 10/10/21 10/10/21 10/10/21 14:42 14:42 14:42 MCV 80.0 MCH 23.8 L MCHC 29.7 L RDW 15.9 Plt Count 208 MPV 10.1 Immature Gran % (Auto) 0.4 Neut % (Auto) 76.8 H Lymph % (Auto) 16.6 L Williams % (Auto) 5.9 Eos % (Auto) 0.1 Baso % (Auto) 0.2 Lymph # (Auto) 1.6 Williams # (Auto) 0.6 Eos # (Auto) 0.0 Baso # (Auto) 0.0 Abs Immat Gran (auto) 0.04 H Absolute Neuts (auto) 7.3 Absolute Nucleated RBC 0.000 Nucleated RBC % (auto) 0.0 O2 Saturation ABG pH at Pt Temp ABG pCO2 at Pt Temp ABG pO2 at Pt Temp ABG HCO3 ABG Base Excess (Actual) Anion Gap 16 Estim Creat Clear Calc 60.0 Estimated GFR > 60 Random Glucose 208 H Fasting Glucose Lactic Acid Lactic Acid F/U @ 2Hr Lactic Acid F/U @ 4Hr Calcium 9.1 Magnesium 1.9 Total Bilirubin 0.3 Direct Bilirubin < 0.2 AST 17 D ALT 13 Alkaline Phosphatase 133 H Troponin I High Sens 45.5 H B-Natriuretic Peptide 373 H Total Protein 8.0 Albumin 4.4 Urine Color Urine Appearance Urine pH Ur Specific [place] Urine Protein Urine Glucose (UA) Urine Ketones Urine Blood Urine Nitrite Ur Leukocyte Esterase Urine RBC Urine WBC Ur Squamous Epith Cells Urine Bacteria COVID-19 (ANEL) COVID-19 Clin Com 10/10/21 10/10/21 10/10/21 14:55 14:56 16:14 MCV MCH MCHC RDW Plt Count MPV Immature Gran % (Auto) Neut % (Auto) Lymph % (Auto) Williams % (Auto) Eos % (Auto) Baso % (Auto) Lymph # (Auto) Williams # (Auto) Eos # (Auto) Baso # (Auto) Abs Immat Gran (auto) Absolute Neuts (auto) Absolute Nucleated RBC Nucleated RBC % (auto) O2 Saturation 86.0 ABG pH at Pt Temp 7.49 H ABG pCO2 at Pt Temp 39 ABG pO2 at Pt Temp 54 L ABG HCO3 30 H ABG Base Excess (Actual) 6.7 Anion Gap Estim Creat Clear Calc Estimated GFR Random Glucose Fasting Glucose Lactic Acid 2.7 H* Lactic Acid F/U @ 2Hr Lactic Acid F/U @ 4Hr Calcium Magnesium Total Bilirubin Direct Bilirubin AST ALT Alkaline Phosphatase Troponin I High Sens B-Natriuretic Peptide Total Protein Albumin Urine Color Urine Appearance Urine pH Ur Specific [place] Urine Protein Urine Glucose (UA) Urine Ketones Urine Blood Urine Nitrite Ur Leukocyte Esterase Urine RBC Urine WBC Ur Squamous Epith Cells Urine Bacteria COVID-19 (ANEL) Negative COVID-19 Clin Com See Note 10/10/21 10/10/21 10/10/21 17:45 17:49 17:49 MCV MCH MCHC RDW Plt Count MPV Immature Gran % (Auto) Neut % (Auto) Lymph % (Auto) Williams % (Auto) Eos % (Auto) Baso % (Auto) Lymph # (Auto) Williams # (Auto) Eos # (Auto) Baso # (Auto) Abs Immat Gran (auto) Absolute Neuts (auto) Absolute Nucleated RBC Nucleated RBC % (auto) O2 Saturation ABG pH at Pt Temp ABG pCO2 at Pt Temp ABG pO2 at Pt Temp ABG HCO3 ABG Base Excess (Actual) Anion Gap Estim Creat Clear Calc Estimated GFR Random Glucose Fasting Glucose Lactic Acid Lactic Acid F/U @ 2Hr 3.6 H* Lactic Acid F/U @ 4Hr Calcium Magnesium Total Bilirubin Direct Bilirubin AST ALT Alkaline Phosphatase Troponin I High Sens 46.1 H B-Natriuretic Peptide Total Protein Albumin Urine Color YELLOW Urine Appearance CLEAR Urine pH 6.0 Ur Specific [place] <= 1.005 Urine Protein NEG Urine Glucose (UA) 100 H Urine Ketones NEG Urine Blood NEG Urine Nitrite NEG Ur Leukocyte Esterase TRACE H Urine RBC 0 Urine WBC 0-2 Ur Squamous Epith Cells TRACE Urine Bacteria TRACE COVID-19 (ANEL) COVID-19 Clin Com 10/10/21 10/11/21 10/11/21 20:12 06:24 06:24 MCV 79.2 L MCH 23.8 L MCHC 30.0 L RDW 16.1 H Plt Count 179 MPV 10.4 Immature Gran % (Auto) Neut % (Auto) Lymph % (Auto) Williams % (Auto) Eos % (Auto) Baso % (Auto) Lymph # (Auto) Williams # (Auto) Eos # (Auto) Baso # (Auto) Abs Immat Gran (auto) Absolute Neuts (auto) Absolute Nucleated RBC 0.000 Nucleated RBC % (auto) 0.0 O2 Saturation ABG pH at Pt Temp ABG pCO2 at Pt Temp ABG pO2 at Pt Temp ABG HCO3 ABG Base Excess (Actual) Anion Gap 15 Estim Creat Clear Calc 67.8 Estimated GFR > 60 Random Glucose Fasting Glucose 115 H Lactic Acid Lactic Acid F/U @ 2Hr Lactic Acid F/U @ 4Hr 4.1 H* Calcium 9.0 Magnesium 1.8 Total Bilirubin Direct Bilirubin AST ALT Alkaline Phosphatase Troponin I High Sens B-Natriuretic Peptide Total Protein Albumin Urine Color Urine Appearance Urine pH Ur Specific [place] Urine Protein Urine Glucose (UA) Urine Ketones Urine Blood Urine Nitrite Ur Leukocyte Esterase Urine RBC Urine WBC Ur Squamous Epith Cells Urine Bacteria COVID-19 (ANEL) COVID-19 Clin Com Assessment and Plan (1) Acute on chronic respiratory failure with hypoxemia: Status: Acute Plan 61F presented with sob acute on chronic hypoxic respiratory failure Secondary to acute on chronic systolic CHF (nonischemic cardiomyopathy) and COPD with acute decompensation with pulmonary hypertension improving, continue IV Lasix, monitor electrolytes, cardio eval Solu-Medrol, bronchodilators No evidence of sepsis or bacterial infection, lactic acidosis likely due to albuterol and hypoxia from above Hypokalemia Replaced Hypertension Losartan, Imdur, diuresis Mood disorder Seroquel, sertraline Morbid obesity Weight loss recommended KELLIE Noncompliant with CPAP DVT prophylaxis with Lovenox Full code reason for continued hospitalization:still significantly hypoxic above baseline, needing iv diuresis and close monitoring Quality Stroke Does the patient have a stroke diagnosis?: No VTE Prior VTE?: No VTE Risk Level:: Medical - moderate - high VTE Device Contraindication: Treatment Not Indicated VTE Drug Contraindication: N/A - Med Ordered
--- NOTE | 2021-10-11 10:37 | PM.CNCAR ---
History of Present Illness History of Present Illness Date of Service: 10/11/21 Chief complaint: CHF, COPD Narrative: This is a cardiology consultation regarding shortness of breath. Patient was seen by yesterday in the office. According to his notes, patient has advanced COPD. She is on supplemental oxygen. She also has nonischemic cardiomyopathy with an ejection fraction of 30%. She came for follow-up but she was quite short of breath in the office. She was not even able to speak in sentences. Then she was sent to the ER for further evaluation. It was felt that her symptoms are probably not cardiac in nature but rather from COPD itself. Currently, patient states that her breathing is slightly better than arrival. No anginal-type symptoms. No other complaints at this time. Review of Systems Review of Systems: Yes all other systems are reviewed and are negative Constitutional: Constitutional: Reports as per HPI Eyes: Eyes: Reports as per HPI ENT: Reports as per HPI Cardiovascular: Cardiovascular: Reports as per HPI, Denies acrocyanosis, Denies cool extremities, Denies chest pain, Denies leg edema, Denies lightheadedness, Denies palpitations and Reports dyspnea Respiratory: Respiratory: Reports as per HPI, Reports no additional respiratory complaints and Reports dyspnea Gastrointestinal: Gastrointestinal: Reports as per HPI and Reports no additional gastrointestinal complaints Genitourinary: Genitourinary: Reports as per HPI Musculoskeletal: Musculoskeletal: Reports no additional musculoskeletal complaints and Reports as per HPI Integumentary/Breasts: Skin/Breast: Reports system reviewed and no additional complaints, except as docu Neurologic: Reports system reviewed and no additional complaints, except as documented and Reports as per HPI Psychiatric: Psychiatric: Reports no additional psychiatric complaints and Reports as per HPI Endocrine: Endocrine: Reports no additional endocrine complaints, Reports as per HPI and Denies palpitations Hematologic/Lymphatic: Hematologic/Lymphatic: Reports no additional hematologic/lymphatic complaints and Reports as per HPI Allergic/Immunologic: Allergic/Immunologic: Reports no additional allergic/immunologic complaints and Reports as per HPI [facility] Past Medical History Medical History (Updated 10/11/21 @ 10:46 by Jordan Herrera MD) Anxiety Chronic respiratory failure Depression Diabetes Essential hypertension HFrEF (heart failure with reduced ejection fraction) HLD (hyperlipidemia) HTN (hypertension) Non-rheumatic mitral regurgitation Nonischemic cardiomyopathy KELLIE (obstructive sleep apnea) Osteoporosis Pulmonary hypertension Severe chronic obstructive pulmonary disease Supraventricular tachycardia Tobacco abuse Family History Family History Father No problems noted. Mother Liver cancer Hypertension Surgical History Surgical History (Updated 10/11/21 @ 09:37 by Ethan Santamaria MD) Bilateral ankle fractures History of total abdominal hysterectomy Social History Social History Household Members: None Household Members Other:: 1 Housing: Apartment Do you presently have visiting nurse or other home services: No ([employer]) Alcohol intake: never Patient Tobacco Use Status: Current everyday Tobacco user Tobacco use type: Cigarette Cigarette Packs Per Day: 1 Cigarettes Per Day: 5 Years Smoked: 50 +/- Second Hand Smoke Exposure: No Use of substances other than those prescribed or required for medical reasons: No Advance Directives: Yes Advance Directives on File: Yes Advance Directives Date on File: 04/30/20 service: No Current occupational status: unemployed, retired and disabled Meds Allergies Allergy/AdvReac Type Severity Reaction Status Date / Time nicotine [Nicotine] Allergy Mild ITCHING Verified 10/10/21 13:42 WITH THE PATCHES topiramate Allergy Mild inadequealte Verified 10/10/21 13:42 response Active Medications: Current Medications Acetaminophen (Acetaminophen 325 Mg Tablet) 650 mg PO Q6H PRN PRN Reason: Pain, Mild (Pain Scale 1-3) Albuterol/Ipratropium (Albuterol/Iprat 2.5/0.5mg 3 Ml Ampul.Neb) 3 ml INHALE Q4H PRN PRN Reason: sob Last Admin: 10/10/21 20:25 Dose: 3 ml Enoxaparin Sodium (Enoxaparin Sodium 40 Mg/0.4 Ml Syringe) 40 mg SUBCUT Q24H [facility] Last Admin: 10/10/21 18:49 Dose: 40 mg Folic Acid (Folic Acid 1 Mg Tablet) 1 mg PO DAILY [facility] Last Admin: 10/11/21 08:42 Dose: 1 mg Furosemide (Furosemide 40 Mg/4 Ml Vial) 40 mg IVPUSH BID@0900,1800 [facility]; Protocol Last Admin: 10/11/21 08:41 Dose: 40 mg Isosorbide Mononitrate (Isosorbide Mononitrate 30 Mg Tab.Er.24h) 30 mg PO DAILY [facility]; Protocol Last Admin: 10/11/21 08:42 Dose: 30 mg Losartan Potassium (Losartan Potassium 50 Mg Tablet) 50 mg PO DAILY [facility]; Protocol Last Admin: 10/11/21 08:42 Dose: 50 mg Methylprednisolone Sodium Succinate (Methylprednisolone Sod Succ 40 Mg/Ml Vial) 40 mg IVPUSH Q12H [facility] Montelukast Sodium (Montelukast Sodium 10 Mg Tablet) 10 mg PO BEDTIME [facility] Last Admin: 10/10/21 21:06 Dose: 10 mg Pharmacy Consult (Consult Rx Perform Med Rec) 1 each MISCELLANE ONCE PRN PRN Reason: Consult order Quetiapine Fumarate (Quetiapine Fumarate 50 Mg Tablet) 50 mg PO BID [facility] Last Admin: 10/11/21 08:42 Dose: 50 mg Sertraline HCl (Sertraline Hcl 100 Mg Tablet) 200 mg PO DAILY [facility] Last Admin: 10/11/21 08:42 Dose: 200 mg Sodium Chloride (0.9 % Sodium Chloride Flush 3 Ml Syringe) 3 ml IVFLUSH QSHIFT [facility] Last Admin: 10/11/21 00:17 Dose: Not Given Trazodone HCl (Trazodone Hcl 50 Mg Tablet) 50 mg PO BEDTIME PRN PRN Reason: Sleep Last Admin: 10/10/21 21:08 Dose: 50 mg Home Medications Medication Instructions Recorded Confirmed Last Taken Type trazodone 50 mg tablet 50 - 100 mg PO BEDTIME PRN Sleep 03/08/20 10/10/21 03/29/21 History nicotine 10 mg inhalation 1 inh inhalation Q2H PRN Smoking 03/30/21 10/10/21 03/30/21 History cartridge (Nicotrol) Cessation losartan 50 mg tablet 50 mg PO DAILY 06/22/21 10/10/21 06/21/21 History prednisone 5 mg tablet 1 tab PO DAILY 06/22/21 10/10/21 06/21/21 History Physical Exam Vital Signs: Vital Signs: Last Vital Signs Temp 97.1 F 10/10/21 23:44 Pulse 90 10/11/21 08:52 Resp 19 10/11/21 08:52 BP 174/119 H 10/11/21 08:50 Pulse Ox 93 10/11/21 08:52 O2 Del Method 10/11/21 08:52 O2 Flow Rate 5 10/11/21 08:52 Oxygen Flow Rate 8 10/10/21 23:44 BMI result Body Mass Index 48.2 Const: General: cooperative, comfortable, no acute distress, alert and awake Orientation/consciousness: patient oriented x3 HEENT: Other: Unremarkable Head: Yes normal to inspection Neck: Neck: Yes normal visual inspection Chest: Chest palpation & inspection: normal inspection of the chest Resp: Auscultation: crackles (Occasional), rhonchi (Occasional) and diminished lung sounds Cardio: Palpation: normal PMI Heart sounds: S1 normal heart sound present, S2 normal heart sound present, no gallops, no murmurs and no rubs GI: Palpation (GI): Soft to palpation Back/Spine/Pelvis: Other: unremarkable Skin: General skin exam: no rashes or lesions noted Neuro: General: patient oriented x3 Extrem: General: Yes normal to inspection Psych: Mental Status: mental status grossly normal Objective Labs and Meds Result diagrams: 10/11/21 06:24 10/11/21 06:24 Lab results: Laboratory Results - last 24 hr 10/10/21 10/10/21 10/10/21 14:42 14:42 14:42 WBC 9.5 RBC 4.50 Hgb 10.7 L Hct 36.0 L MCV 80.0 MCH 23.8 L MCHC 29.7 L RDW 15.9 Plt Count 208 MPV 10.1 Immature Gran % (Auto) 0.4 Neut % (Auto) 76.8 H Lymph % (Auto) 16.6 L [place] % (Auto) 5.9 Eos % (Auto) 0.1 Baso % (Auto) 0.2 Lymph # (Auto) 1.6 [place] # (Auto) 0.6 Eos # (Auto) 0.0 Baso # (Auto) 0.0 Abs Immat Gran (auto) 0.04 H Absolute Neuts (auto) 7.3 Absolute Nucleated RBC 0.000 Nucleated RBC % (auto) 0.0 O2 Saturation ABG pH at Pt Temp ABG pCO2 at Pt Temp ABG pO2 at Pt Temp ABG HCO3 ABG Base Excess (Actual) Sodium 140 Potassium 2.9 L Chloride 98 Carbon Dioxide 29 Anion Gap 16 BUN 12 D Creatinine 0.87 Estim Creat Clear Calc 60.0 Estimated GFR > 60 Random Glucose 208 H Fasting Glucose Lactic Acid Lactic Acid F/U @ 2Hr Lactic Acid F/U @ 4Hr Calcium 9.1 Magnesium 1.9 Total Bilirubin 0.3 Direct Bilirubin < 0.2 AST 17 D ALT 13 Alkaline Phosphatase 133 H Troponin I High Sens 45.5 H B-Natriuretic Peptide 373 H Total Protein 8.0 Albumin 4.4 Urine Color Urine Appearance Urine pH Ur Specific [place] Urine Protein Urine Glucose (UA) Urine Ketones Urine Blood Urine Nitrite Ur Leukocyte Esterase Urine RBC Urine WBC Ur Squamous Epith Cells Urine Bacteria COVID-19 (ANEL) COVID-19 Clin Com 10/10/21 10/10/21 10/10/21 14:55 14:56 16:14 WBC RBC Hgb Hct MCV MCH MCHC RDW Plt Count MPV Immature Gran % (Auto) Neut % (Auto) Lymph % (Auto) [place] % (Auto) Eos % (Auto) Baso % (Auto) Lymph # (Auto) [place] # (Auto) Eos # (Auto) Baso # (Auto) Abs Immat Gran (auto) Absolute Neuts (auto) Absolute Nucleated RBC Nucleated RBC % (auto) O2 Saturation 86.0 ABG pH at Pt Temp 7.49 H ABG pCO2 at Pt Temp 39 ABG pO2 at Pt Temp 54 L ABG HCO3 30 H ABG Base Excess (Actual) 6.7 Sodium Potassium Chloride Carbon Dioxide Anion Gap BUN Creatinine Estim Creat Clear Calc Estimated GFR Random Glucose Fasting Glucose Lactic Acid 2.7 H* Lactic Acid F/U @ 2Hr Lactic Acid F/U @ 4Hr Calcium Magnesium Total Bilirubin Direct Bilirubin AST ALT Alkaline Phosphatase Troponin I High Sens B-Natriuretic Peptide Total Protein Albumin Urine Color Urine Appearance Urine pH Ur Specific [place] Urine Protein Urine Glucose (UA) Urine Ketones Urine Blood Urine Nitrite Ur Leukocyte Esterase Urine RBC Urine WBC Ur Squamous Epith Cells Urine Bacteria COVID-19 (ANEL) Negative COVID-19 Clin Com See Note 10/10/21 10/10/21 10/10/21 17:45 17:49 17:49 WBC RBC Hgb Hct MCV MCH MCHC RDW Plt Count MPV Immature Gran % (Auto) Neut % (Auto) Lymph % (Auto) [place] % (Auto) Eos % (Auto) Baso % (Auto) Lymph # (Auto) [place] # (Auto) Eos # (Auto) Baso # (Auto) Abs Immat Gran (auto) Absolute Neuts (auto) Absolute Nucleated RBC Nucleated RBC % (auto) O2 Saturation ABG pH at Pt Temp ABG pCO2 at Pt Temp ABG pO2 at Pt Temp ABG HCO3 ABG Base Excess (Actual) Sodium Potassium Chloride Carbon Dioxide Anion Gap BUN Creatinine Estim Creat Clear Calc Estimated GFR Random Glucose Fasting Glucose Lactic Acid Lactic Acid F/U @ 2Hr 3.6 H* Lactic Acid F/U @ 4Hr Calcium Magnesium Total Bilirubin Direct Bilirubin AST ALT Alkaline Phosphatase Troponin I High Sens 46.1 H B-Natriuretic Peptide Total Protein Albumin Urine Color YELLOW Urine Appearance CLEAR Urine pH 6.0 Ur Specific [place] <= 1.005 Urine Protein NEG Urine Glucose (UA) 100 H Urine Ketones NEG Urine Blood NEG Urine Nitrite NEG Ur Leukocyte Esterase TRACE H Urine RBC 0 Urine WBC 0-2 Ur Squamous Epith Cells TRACE Urine Bacteria TRACE COVID-19 (ANEL) COVID-19 Clin Com 10/10/21 10/11/21 10/11/21 20:12 06:24 06:24 WBC 9.2 RBC 4.08 L Hgb 9.7 L Hct 32.3 L MCV 79.2 L MCH 23.8 L MCHC 30.0 L RDW 16.1 H Plt Count 179 MPV 10.4 Immature Gran % (Auto) Neut % (Auto) Lymph % (Auto) [place] % (Auto) Eos % (Auto) Baso % (Auto) Lymph # (Auto) [place] # (Auto) Eos # (Auto) Baso # (Auto) Abs Immat Gran (auto) Absolute Neuts (auto) Absolute Nucleated RBC 0.000 Nucleated RBC % (auto) 0.0 O2 Saturation ABG pH at Pt Temp ABG pCO2 at Pt Temp ABG pO2 at Pt Temp ABG HCO3 ABG Base Excess (Actual) Sodium 143 Potassium 4.0 D Chloride 104 Carbon Dioxide 28 Anion Gap 15 BUN 13 Creatinine 0.77 Estim Creat Clear Calc 67.8 Estimated GFR > 60 Random Glucose Fasting Glucose 115 H Lactic Acid Lactic Acid F/U @ 2Hr Lactic Acid F/U @ 4Hr 4.1 H* Calcium 9.0 Magnesium 1.8 Total Bilirubin Direct Bilirubin AST ALT Alkaline Phosphatase Troponin I High Sens B-Natriuretic Peptide Total Protein Albumin Urine Color Urine Appearance Urine pH Ur Specific [place] Urine Protein Urine Glucose (UA) Urine Ketones Urine Blood Urine Nitrite Ur Leukocyte Esterase Urine RBC Urine WBC Ur Squamous Epith Cells Urine Bacteria COVID-19 (ANEL) COVID-19 Clin Com ECG Interpretation: EKG with likely sinus rhythm. Right bundle-branch block pattern. No clear ischemic changes. Imaging Radiologist's impression: Impressions Chest X-Ray 10/10/21 14:50 IMPRESSION: Pulmonary vascular congestion without airspace edema. Probable bibasilar atelectasis. Emphysematous change versus bullous disease. Assessment and Plan (1) Acute on chronic respiratory failure with hypoxemia: Status: Acute (2) Acute on chronic systolic (congestive) heart failure: Status: Resolved (3) Hypertensive emergency: Status: Acute Plan Based on the last echocardiogram, LVEF 30-35%. Moderately dilated left atrium. Moderate mitral regurgitation and moderate pulmonary hypertension. High sensitivity troponins are slightly elevated at this time at 45 and 46. They have previously been generally on the higher side. Cardiac BNP is 373. Again in her baseline. Chest x-ray reported to have pulmonary vascular congestion/no aspect edema. Probable bibasilar atelectasis. Emphysematous change versus bullous disease. Per prior documentation, stress testing at different times in the past including 2018, 2013, 2011 without any clear perfusion abnormalities. Overall, symptoms are probably primarily respiratory in nature. However she also has cardiomyopathy and that could play a role contributing to the pulmonary congestion. Additionally, she has uncontrolled blood pressures. That isn't helping either. We will need to optimize her blood pressure medications. Can go up on the losartan to 100 mg daily. Ideally should be on Coreg as well and if she can tolerate that can initiate. Also she was on amlodipine 10 mg in the past but not anymore. We can start that too. IV diuretics. Procedures Date of Service Date of Service: 10/11/21
--- NOTE | 2021-10-11 11:24 | PC.NURSE ---
this nurse took over for Geni, will administer medications that werent given
[2021-10-11] MEDS: amLODIPine Besylate 10 MG TABLET PO (12:36)
--- NOTE | 2021-10-11 12:37 | PC.NURSE ---
patient a&ox3, cardiac monitor technician nsr 90s, vitals stable- pt remains on oxymask @5L, pt is hypertensive was given bp medication, pure wick intact, call ferris within reac, will continue to monitor.
[2021-10-11] MEDS: 0.9 % Sodium Chloride Flush 3 ML SYRINGE IVFLUSH (16:19)
--- NOTE | 2021-10-11 16:19 | PC.NURSE ---
pt currently sleeping, felt finisher intact, nsr 90s, will continue to monitor.
[2021-10-11] MEDS: Enoxaparin Sodium 40 MG/0.4 ML SYRINGE SUBCUT (17:54)
[2021-10-11] MEDS: methylPREDNISolone Sod Succ 40 MG/ML VIAL IVPUSH (20:25)
[2021-10-11] MEDS: Montelukast Sodium 10 MG TABLET PO (20:25)
[2021-10-11] MEDS: Losartan Potassium 25 MG TABLET PO (20:25)
--- NOTE | 2021-10-11 21:46 | PC.NURSE ---
patient a&ox3, color television console monitor nsr 90s, pt denies pain/discomfort, pt noted to be hypertensive- was medicated with bp med-will recheck bp and notify provider if still elevated, pt continues to be on oxymask- desats to 60s when taken off to eat- while patient is eating pt is placed on 6L NC, pure wick intact- draining clear yellow urine, call ferris within reach, will continue to monitor.
[2021-10-12] VITALS (7 sets, daily range): BP systolic 130–151; BP diastolic 76–101; PULSE 84–104; RESP 11–20; TEMP 36.1–37.1; O2SAT 92–100
[2021-10-12] MEDS: Acetaminophen 325 MG TABLET 650 MG PO (00:04)
[2021-10-12] MEDS: Losartan Potassium 25 MG TABLET PO (00:42)
[2021-10-12] MEDS: 0.9 % Sodium Chloride Flush 3 ML SYRINGE IVFLUSH ×3 (01:49→18:22)
[2021-10-12] MEDS: amLODIPine Besylate 10 MG TABLET PO (02:40)
--- NOTE | 2021-10-12 02:49 | PC.NURSE ---
Patient in bed at 2330 c/o heaache, waiting for one time dose losartan from vineyard supervisor. Member given tylenol PRN as ordered for headache. Med delivered by vineyard supervisor and administered minimal improvement. 0220 Pressure worsening 160's/110's. report to . Ordered to give morning Norvasc. Norvasc given. Member in bed resting, denied headache any longer just fatigued. SR will continue to monitor at this time.
[2021-10-12 07:01] LABS: Anion Gap 15 (12-20); Blood Urea Nitrogen 18 mg/dL (9-16); Calcium 9.4 mg/dL (8.4-10.2); Carbon Dioxide 30 mmol/L (22-29); Chloride 101 mmol/L (96-108); Estimated Glomerular Filt Rate > 60; Glucose Fasting 163 mg/dL (60-99); Potassium 3.6 mmol/L (3.3-5.1); Sodium 142 mmol/L (135-145)
[2021-10-12 07:02] LABS: Hematocrit 32.8 % (37.0-47.0); Mean Corpuscular HGB Conc 30.5 g/dl (31.0-35.0); Mean Corpuscular Hemoglobin 24.2 pg (27.0-33.0); Mean Corpuscular Volume 79.4 fL (80.0-98.0); Mean Platelet Volume 10.6 fL (9.4-12.3); Platelet Count 207 X10*3/uL (160-400); Red Blood Count 4.13 X10*6/uL (4.20-5.50); Red Cell Distribution Width 15.9 % (11.0-16.0); White Blood Count 9.3 X10*3/uL (4.8-10.8)
[2021-10-12] MEDS: Isosorbide Mononitrate 30 MG TAB.ER.24H PO (08:38)
[2021-10-12] MEDS: Sertraline HCL 100 MG TABLET 200 MG PO (08:38)
[2021-10-12] MEDS: methylPREDNISolone Sod Succ 40 MG/ML VIAL IVPUSH ×2 (08:38→20:56)
[2021-10-12] MEDS: Furosemide 40 MG/4 ML VIAL IVPUSH ×2 (08:38→18:22)
[2021-10-12] MEDS: QUEtiapine Fumarate 50 MG TABLET PO ×2 (08:39→20:55)
[2021-10-12] MEDS: Folic Acid 1 MG TABLET PO (08:39)
[2021-10-12] MEDS: carvediloL 3.125 MG TABLET PO ×2 (08:39→20:56)
[2021-10-12] MEDS: Losartan Potassium 50 MG TABLET 100 MG PO (08:39)
[2021-10-12] MEDS: Albuterol/Iprat 2.5/0.5MG 3 ML AMPUL.NEB INHALE (08:57)
--- NOTE | 2021-10-12 11:20 | P.PNIM_ITS ---
Subjective Subjective Date of Service: 10/12/21 Interval History: cc: sob interval history:reports improvement, but still very hypoxic Cardiovascular Cardiovascular: Reports no additional cardiovascular complaints Gastrointestinal Gastrointestinal: Reports no additional gastrointestinal complaints Physical Exam Vital Signs: Vital Signs: Last Vital Signs Temp 98.6 F 10/12/21 08:43 Pulse 97 10/12/21 08:58 Resp 18 10/12/21 08:58 BP 150/83 H 10/12/21 08:43 Pulse Ox 95 10/12/21 08:50 O2 Del Method 10/12/21 08:50 O2 Flow Rate 4 10/12/21 08:50 Oxygen Flow Rate 8 10/10/21 23:44 BMI result Body Mass Index 48.2 General: AO X 3, no acute distress Resp: Crackles bilateral bases with expiratory wheezes, no accessory muscles used CVS: S1,S2,RRR GI: soft, non tender, non distended Neuro: motor grossly intact, alert Psych: appropriate affect, appropriate insight Objective Data Active Medications Acetaminophen (Acetaminophen 325 Mg Tablet) 650 mg PO Q6H PRN PRN Reason: Pain, Mild (Pain Scale 1-3) Last Admin: 10/12/21 00:04 Dose: 650 mg Documented By: CAITY Albuterol/Ipratropium (Albuterol/Iprat 2.5/0.5mg 3 Ml Ampul.Neb) 3 ml INHALE Q4H PRN PRN Reason: sob Last Admin: 10/12/21 08:57 Dose: 3 ml Documented By: MANISH Amlodipine Besylate (Amlodipine Besylate 10 Mg Tablet) 10 mg PO DAILY [facility]; Protocol Last Admin: 10/12/21 02:40 Dose: 10 mg Documented By: CAITY Carvedilol (Carvedilol 3.125 Mg Tablet) 3.125 mg PO BID [facility]; Protocol Last Admin: 10/12/21 08:39 Dose: 3.125 mg Documented By: MARCEL Enoxaparin Sodium (Enoxaparin Sodium 40 Mg/0.4 Ml Syringe) 40 mg SUBCUT Q24H [facility] Last Admin: 10/11/21 17:54 Dose: 40 mg Documented By: LOLY Folic Acid (Folic Acid 1 Mg Tablet) 1 mg PO DAILY [facility] Last Admin: 10/12/21 08:39 Dose: 1 mg Documented By: MARCEL Furosemide (Furosemide 40 Mg/4 Ml Vial) 40 mg IVPUSH BID@0900,1800 [facility]; Protocol Last Admin: 10/12/21 08:38 Dose: 40 mg Documented By: MARCEL Isosorbide Mononitrate (Isosorbide Mononitrate 30 Mg Tab.Er.24h) 30 mg PO DAILY [facility]; Protocol Last Admin: 10/12/21 08:38 Dose: 30 mg Documented By: MARCEL Losartan Potassium (Losartan Potassium 50 Mg Tablet) 100 mg PO DAILY [facility]; Protocol Last Admin: 10/12/21 08:39 Dose: 100 mg Documented By: MARCEL Methylprednisolone Sodium Succinate (Methylprednisolone Sod Succ 40 Mg/Ml Vial) 40 mg IVPUSH Q12H [facility] Last Admin: 10/12/21 08:38 Dose: 40 mg Documented By: MARCEL Montelukast Sodium (Montelukast Sodium 10 Mg Tablet) 10 mg PO BEDTIME [facility] Last Admin: 10/11/21 20:25 Dose: 10 mg Documented By: LOLY Pharmacy Consult (Consult Rx Perform Med Rec) 1 each MISCELLANE ONCE PRN PRN Reason: Consult order Quetiapine Fumarate (Quetiapine Fumarate 50 Mg Tablet) 50 mg PO BID [facility] Last Admin: 10/12/21 08:39 Dose: 50 mg Documented By: MARCEL Sertraline HCl (Sertraline Hcl 100 Mg Tablet) 200 mg PO DAILY [facility] Last Admin: 10/12/21 08:38 Dose: 200 mg Documented By: MARCEL Sodium Chloride (0.9 % Sodium Chloride Flush 3 Ml Syringe) 3 ml IVFLUSH QSHIFT [facility] Last Admin: 10/12/21 08:38 Dose: 3 ml Documented By: MARCEL Trazodone HCl (Trazodone Hcl 50 Mg Tablet) 50 mg PO BEDTIME PRN PRN Reason: Sleep Last Admin: 10/10/21 21:08 Dose: 50 mg Documented By: CHRISS Labs CBC & Chem 7: 10/12/21 06:14 10/12/21 06:14 Labs: Laboratory Results - last 24 hr 10/12/21 10/12/21 06:14 06:14 MCV 79.4 L MCH 24.2 L MCHC 30.5 L RDW 15.9 Plt Count 207 MPV 10.6 Absolute Nucleated RBC 0.000 Nucleated RBC % (auto) 0.0 Anion Gap 15 Estim Creat Clear Calc 60.0 Estimated GFR > 60 Fasting Glucose 163 H Calcium 9.4 Microbiology Microbiology Results: Microbiology 10/10/21 14:55 Blood Culture - Preliminary Blood - Venous No growth after 24 hours. 10/10/21 14:42 Blood Culture - Preliminary Blood - Venous No growth after 24 hours. Assessment and Plan (1) Acute on chronic respiratory failure with hypoxemia: Status: Acute Plan 61F presented with sob acute on chronic hypoxic respiratory failure Secondary to acute on chronic systolic CHF (nonischemic cardiomyopathy) and COPD with acute decompensation with pulmonary hypertension improvingsymptoms, but still more hypoxic than baseline continue IV Lasix, monitor electrolytes, cardio appreciated Solu-Medrol, bronchodilators No evidence of sepsis or bacterial infection, lactic acidosis likely due to albuterol and hypoxia from above Hypokalemia Replaced Hypertension - uncontrolled Losartan increased to 100mg, amlodipine and coreg added, , Imdur, diuresis Mood disorder Seroquel, sertraline Morbid obesity Weight loss recommended KELLIE Noncompliant with CPAP DVT prophylaxis with Lovenox Full code reason for continued hospitalization:still significantly hypoxic above baseline, needing iv diuresis and close monitoring Quality Stroke Does the patient have a stroke diagnosis?: No VTE Prior VTE?: No VTE Risk Level:: Medical - moderate - high VTE Device Contraindication: Treatment Not Indicated VTE Drug Contraindication: N/A - Med Ordered
[2021-10-12] MEDS: Enoxaparin Sodium 40 MG/0.4 ML SYRINGE SUBCUT (18:21)
[2021-10-12] MEDS: Montelukast Sodium 10 MG TABLET PO (20:55)
[2021-10-12] MEDS: traZODone HCL 50 MG TABLET PO (20:56)
[2021-10-13] VITALS: BP 141/93; PULSE 73; RESP 12; TEMP 36.1; O2SAT 99
[2021-10-13 04:00] VITALS: BP 117/81; PULSE 70; RESP 14; TEMP 36.3; O2SAT 100
[2021-10-13 07:06] LABS: Hematocrit 35.1 % (37.0-47.0); Hemoglobin 10.4 g/dl (12.0-16.0); Mean Corpuscular HGB Conc 29.6 g/dl (31.0-35.0); Mean Corpuscular Hemoglobin 23.7 pg (27.0-33.0); Mean Corpuscular Volume 80.1 fL (80.0-98.0); Mean Platelet Volume 10.2 fL (9.4-12.3); Platelet Count 208 X10*3/uL (160-400); Red Blood Count 4.38 X10*6/uL (4.20-5.50); White Blood Count 8.7 X10*3/uL (4.8-10.8)
[2021-10-13 07:23] LABS: Anion Gap 15 (12-20); Blood Urea Nitrogen 28 mg/dL (9-16); Calcium 9.2 mg/dL (8.4-10.2); Carbon Dioxide 30 mmol/L (22-29); Chloride 99 mmol/L (96-108); Creatinine Clr Calc Pharmacy 49.7; Estimated Glomerular Filt Rate 53; Glucose Fasting 181 mg/dL (60-99); Magnesium 2.1 mg/dL (1.6-2.6); Potassium 3.8 mmol/L (3.3-5.1); Sodium 140 mmol/L (135-145)
[2021-10-13 07:33] VITALS: BP 157/93; PULSE 76; RESP 19; O2SAT 92
[2021-10-13] MEDS: amLODIPine Besylate 10 MG TABLET PO (08:01)
[2021-10-13] MEDS: Losartan Potassium 50 MG TABLET 100 MG PO (08:01)
[2021-10-13] MEDS: Isosorbide Mononitrate 30 MG TAB.ER.24H PO (08:01)
[2021-10-13] MEDS: Furosemide 40 MG/4 ML VIAL IVPUSH (08:01)
[2021-10-13] MEDS: methylPREDNISolone Sod Succ 40 MG/ML VIAL IVPUSH (08:01)
[2021-10-13] MEDS: Folic Acid 1 MG TABLET PO (08:01)
[2021-10-13] MEDS: Sertraline HCL 100 MG TABLET 200 MG PO (08:01)
[2021-10-13] MEDS: carvediloL 3.125 MG TABLET PO (08:01)
[2021-10-13] MEDS: QUEtiapine Fumarate 50 MG TABLET PO (08:01)
[2021-10-13] MEDS: 0.9 % Sodium Chloride Flush 3 ML SYRINGE IVFLUSH ×2 (08:02)
--- NOTE | 2021-10-13 09:17 | PM.DS ---
DS: Providers Provider Date of Service: 10/13/21 Date of admission: 10/10/21 18:10 Primary care physician: Analisa Chavez MD Consults: 10/10/21 18:17 Consult to Cardiology Routine Consulting Provider: Jordan Herrera Reason for consultation: chf DS: Diagnosis Discharge Diagnosis (1) Acute on chronic respiratory failure with hypoxemia: Status: Acute DS: Summary Hospital Course Hospital Course: from initial hpi: Chief Complaint: sob 61F presented with sob.? Patient says that she is chronically short of breath, she is on 3-4 L home oxygen for COPD and nonischemic cardiomyopathy.? She reports worsening shortness of breath over the past month and significantly worse today while at cardiology's office.? She also reports about 10 lb weight gain over unclear timespan, denies any swelling.? Denies fever, chest pain, chills.? During her visit to Cardiology she was noted to be tachypneic, wheezy and was sent to the ER.? In the ER patient was hypoxic to the 50s on room air, recall covered to low 90s on 8 L. chest x-ray showed pulmonary vascular congestion. hospital course: patient was admitted for acute on chronic hypoxic respiratory failure due to acute on chronic systolic CHF and COPD with acute decompensation with pulmonary hypertension. Patient was given IV Lasix and diuresed well, she was also given Solu-Medrol and bronchodilators. Her oxygen was slowly weaned down to her baseline 2-3 L and her symptoms significantly improved. She will be discharged home on 5 more days of p.o. prednisone. Course was also complicated by hypertension that was uncontrolled. Her losartan was increased from 50 mg daily to 100 mg daily, amlodipine 10 mg daily and Coreg 3.125 mg b.i.d. were added. Blood pressure became better controlled. Patient had some hypokalemia which was repleted. For mood disorder she was continued on Seroquel and sertraline. For morbid obesity weight loss is strongly recommended. For her KELLIE compliance of CPAP is recommended. Patient is feeling much better will be discharged home. Time Spent with Patient Time attestation: Total time spent providing and/or coordinating discharge services: Discharge coordination time: Greater than 30 minutes Quality: Safe Use of Opioids Does Pt have an Active Cancer Diagnosis on the Problem List?: No Quality: Stroke Does the patient have a stroke diagnosis?: No Physical Exam Vital Signs: Vital Signs: Last Vital Signs Temp 97.4 F 10/13/21 04:00 Pulse 76 10/13/21 07:33 Resp 19 10/13/21 07:33 BP 157/93 H 10/13/21 07:33 Pulse Ox 92 10/13/21 07:33 O2 Del Method 10/13/21 07:33 O2 Flow Rate 2 10/13/21 07:33 Oxygen Flow Rate 8 10/10/21 23:44 BMI result Body Mass Index 48.2 General: AO X 3, no acute distress Resp: CTA bilateral, no accessory muscles used CVS: S1,S2,RRR GI: soft, non tender, non distended Neuro: motor grossly intact, alert Psych: appropriate affect, appropriate insight DS: Data Data Completed and Pending Completed studies during hospitalization [Text1]: Procedures Assistance with Respiratory Ventilation, Less than 24 Consecutive Hours, Continuous Positive Airway Pressure (03/30/21) Labs on day of discharge: Laboratory Results - last 24 hr 10/13/21 10/13/21 06:25 06:25 WBC 8.7 RBC 4.38 Hgb 10.4 L Hct 35.1 L MCV 80.1 MCH 23.7 L MCHC 29.6 L RDW 16.0 Plt Count 208 MPV 10.2 Absolute Nucleated RBC 0.000 Nucleated RBC % (auto) 0.0 Sodium 140 Potassium 3.8 Chloride 99 Carbon Dioxide 30 H Anion Gap 15 BUN 28 H D Creatinine 1.05 Estim Creat Clear Calc 49.7 Estimated GFR 53 Fasting Glucose 181 H Calcium 9.2 Magnesium 2.1 Preliminary micro results at discharge 10/10/21 14:55 Blood Culture - Preliminary Blood - Venous No growth after 48 hours. 10/10/21 14:42 Blood Culture - Preliminary Blood - Venous No growth after 48 hours. Discharge Plan Discharge Patient Disposition: Home, Self-Care Discharge Diagnosis: chf, copd Referrals: Analisa Carr MD [Primary Care Provider] - 1 Week Discharge Medications: New carvedilol 3.125 mg Tablet 3.125 mg PO BID Qty: 60 0RF Protocol: Hold for SBP/HR < HOLD for SBP < : 90 HOLD for HR < : 60 amlodipine 10 mg Tablet 10 mg PO DAILY Qty: 30 0RF Protocol: Hold for SBP< HOLD for SBP < : 90 prednisone 20 mg tablet 40 mg PO DAILY Qty: 10 0RF Continued montelukast 10 mg tablet 10 mg PO BEDTIME Qty: 30 11RF sertraline 100 mg tablet 200 mg PO DAILY 90 Days Qty: 180 1RF quetiapine 50 mg tablet 50 mg PO BID 90 Days Qty: 180 1RF Spiriva with HandiHaler 18 mcg capsule, w/inhalation device 1 cap inhalation DAILY 30 Days Qty: 30 5RF furosemide 40 mg tablet 40 mg PO DAILY Qty: 30 3RF isosorbide mononitrate 30 mg tablet extended release 24 hr 30 mg PO DAILY 90 Days Qty: 90 3RF Protocol: Hold for SBP< HOLD for SBP < : 90 meclizine 25 mg tablet 25 mg PO TID PRN (Reason: dizziness) 30 Days Qty: 90 0RF trazodone 50 mg tablet 50 - 100 mg PO BEDTIME PRN (Reason: Sleep) folic acid 1 mg Tablet 1 mg PO DAILY Qty: 90 4RF Nicotrol 10 mg cartridge 1 inh inhalation Q2H PRN (Reason: Smoking Cessation) prednisone 5 mg tablet 1 tab PO DAILY Changed losartan 50 mg tablet 100 mg PO DAILY Qty: 60 0RF Protocol: Hold for SBP< HOLD for SBP < : 90 Discharge Orders: Discharge Order (Routine); Ordered 10/13/21 Ordered By: Ethan Santamaria Diet: advance to usual diet Activity on Discharge: As tolerated Stand Alone Forms: Patient Portal Discharge page Care Plan Goals: recovery Health Concerns: chf, htn ,copd Plan of Treatment: increase losartan to 100mg daily, started amlodipine 10mg daily and coreg 3.125mg bid, continue lasix 40mg daily, low sodium diet, 5 days prednisone 40mg daily Assessment: see above
--- NOTE | 2021-10-13 10:05 | MHC.CM.PN ---
D/C order for home, self-care management. Order acknowledged.
[2021-10-13 12:55] VITALS: BP 183/105; PULSE 93; RESP 25; O2SAT 90
== END 2021-10-13 18:47 | disposition home or self-care (01) | DRG 194 ==
LOC: HO.ED 17:24 → HO.EDOVER 18:15 → HO.S3 10-13 15:06 → HO.EDOVER 10-13 16:46
PROVIDERS: Physician Assistant; Admitting Provider Internal Medicine; Emergency Provider Emergency Medicine; PCP Internal Medicine; Visit Provider Internal Medicine
DX: I11.0 Hypertensive heart disease with heart failure (principal); J96.21 Acute and chronic respiratory failure with hypoxia; I42.8 Other cardiomyopathies; Z99.81 Dependence on supplemental oxygen; I50.23 Acute on chronic systolic (congestive) heart failure; F32.A Depression, unspecified; G47.33 Obstructive sleep apnea (adult) (pediatric); M81.0 Age-related osteoporosis without current pathological fracture; E87.6 Hypokalemia; J44.9 Chronic obstructive pulmonary disease, unspecified; E66.01 Morbid (severe) obesity due to excess calories; Z68.42 Body mass index [BMI] 45.0-49.9, adult; Z20.822 Contact with and (suspected) exposure to COVID-19; I16.1 Hypertensive emergency; Z71.3 Dietary counseling and surveillance; F17.210 Nicotine dependence, cigarettes, uncomplicated; Z71.6 Tobacco abuse counseling; Z91.19 Patient's noncompliance with other medical treatment and regimen; Z87.01 Personal history of pneumonia (recurrent); Z88.8 Allergy status to other drugs, medicaments and biological substances; Z79.52 Long term (current) use of systemic steroids; Z79.899 Other long term (current) drug therapy
CPT/HCPCS: 36415; 71045; 80048; 80076; 81001; 82803; 83605; 83735; 83880; 84484; 85025; 85027; 87040; 87635; 93005; 94640; 96365; 96375; 99285; J0696; J1650; J1940; J2920; J2930

== ENCOUNTER 2021-12-13 15:21 | Inpatient (IN) | payer OTHER, SELFPAY ==
[2021-12-13] VITALS (9 sets, daily range): BP systolic 138–184; BP diastolic 73–100; PULSE 77–110; RESP 16–22; TEMP 36.6–37; O2SAT 81–99; BMI 35.9
--- NOTE | ~2021-12-13 | XR_ITS ---
EXAMINATION: XR CHEST CLINICAL INFORMATION: Shortness of breath. Suspected pneumonia. COMPARISON: Chest done on 10/12/2021. TECHNIQUE: Frontal view of the chest was obtained. FINDINGS: Persistent stable moderate enlargement of the cardiomediastinal silhouette and nonspecific bibasilar airspace opacities are noted, similar to prior study dated 10/12/2021. The remainder of the lung wiseman remain clear. There is no evidence of any pleural effusion or pneumothorax. XR/XR chest 1V IMPRESSION: No significant change since 10/12/2021.
--- NOTE | 2021-12-13 15:37 | ECG_ITS ---
Test Reason : sob Blood Pressure : / mmHG Vent. Rate : 078 BPM Atrial Rate : 078 BPM P-R Int : 110 ms QRS Dur : 128 ms QT Int : 444 ms P-R-T Axes : 017 018 007 degrees QTc Int : 506 ms Sinus rhythm with short MO Right bundle branch block Abnormal ECG When compared with ECG of 10-OCT-2021 14:49, No significant changes seen Referred By: Kendall Valverde Electronically Signed By:NATALIA SHANNON
--- NOTE | 2021-12-13 15:48 | ED_ITS ---
HPI - General Adult General Chief complaint: Dyspnea Stated complaint: SOB Time Seen by Provider: 12/13/21 15:33 Source: patient Mode of arrival: ambulatory Limitations: no limitations History of Present Illness HPI narrative: 61 yold female with pmh of COPD, oxygen dependent, CHF, presents to ED for shortness of breath since last night. Patient states she ran out of her oxygen but then states when she used her oxygen she feels no improvement. Patient denies any increased swelling of lower extremities, calf pain, coughing up blood, fever, or chills. Patient states admitted multiple times for history of COPD. EMS states patient O2 saturation on 6 L was 88%. Patient states usually her baseline is 3 L of oxygen and O2 sat between 88 and 93%. Related Data Home Medications Medication Instructions Recorded Confirmed trazodone 50 mg tablet 50 - 100 mg PO BEDTIME PRN Sleep 03/08/20 10/10/21 nicotine 10 mg inhalation 1 inh inhalation Q2H PRN Smoking 03/30/21 10/10/21 cartridge (Nicotrol) Cessation prednisone 5 mg tablet 1 tab PO DAILY 06/22/21 10/10/21 Previous Rx's Medication Instructions Recorded quetiapine 50 mg tablet 50 mg PO BID 90 days #180 tabs 12/18/20 sertraline 100 mg tablet 200 mg PO DAILY 90 days #180 tabs 12/18/20 isosorbide mononitrate 30 mg 30 mg PO DAILY 90 days #90 tabs 08/15/21 tablet,extended release 24 hr folic acid 1 mg tablet 1 mg PO DAILY #90 tabs 09/01/21 amlodipine 10 mg tablet 10 mg PO DAILY #30 tabs 10/13/21 carvedilol 3.125 mg tablet 3.125 mg PO BID #60 tabs 10/13/21 losartan 50 mg tablet 100 mg PO DAILY #60 tabs 10/13/21 prednisone 20 mg tablet 40 mg PO DAILY #10 tabs 10/13/21 furosemide 40 mg tablet 40 mg PO DAILY #30 tabs 10/21/21 montelukast 10 mg tablet 10 mg PO BEDTIME #30 tabs 11/01/21 tiotropium bromide 18 mcg capsule 1 cap inhalation DAILY 30 days #30 11/01/21 with inhalation device (Spiriva inhalations with HandiHaler) meclizine 25 mg tablet 25 mg PO TID PRN dizziness 30 days 12/07/21 #90 tabs Allergies Allergy/AdvReac Type Severity Reaction Status Date / Time nicotine [Nicotine] Allergy Mild ITCHING Verified 10/10/21 13:42 WITH THE PATCHES topiramate Allergy Mild inadequealte Verified 10/10/21 13:42 response Review of Systems Review of Systems: SOB Yes all other systems are reviewed and are negative [facility] Past Medical History Medical History (Updated 12/13/21 @ 17:48 by JARROD Walker) Anxiety Chronic respiratory failure Depression Diabetes Essential hypertension HFrEF (heart failure with reduced ejection fraction) HLD (hyperlipidemia) HTN (hypertension) Non-rheumatic mitral regurgitation Nonischemic cardiomyopathy KELLIE (obstructive sleep apnea) Osteoporosis Pulmonary hypertension Severe chronic obstructive pulmonary disease Supraventricular tachycardia Tobacco abuse Surgical History (Updated 10/11/21 @ 09:37 by Ethan Santamaria MD) Bilateral ankle fractures History of total abdominal hysterectomy Family History Family History Father No problems noted. 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 home services: No ([employer]) Alcohol intake: never Patient Tobacco Use Status: Current everyday Tobacco user Tobacco use type: Cigarette Cigarette Packs Per Day: 1 Cigarettes Per Day: 5 Years Smoked: 50 +/- Second Hand Smoke Exposure: No Advance Directives: Yes Advance Directives on File: Yes Advance Directives Date on File: 04/30/20 service: No Current occupational status: unemployed, retired and disabled Physical Exam ED Vital Signs: Vital Signs - 24 hr 12/13/21 15:56 12/13/21 16:04 12/13/21 16:18 Temperature 97.9 F Pulse Rate 86 88 88 Respiratory Rate 18 22 H 22 H Blood Pressure 138/73 145/90 H Pulse Oximetry 92 91 L Oxygen Delivery Method Nasal Cannula Nasal Cannula Oxygen Flow Rate 4 12/13/21 16:43 Temperature Pulse Rate 92 Respiratory Rate 18 Blood Pressure Pulse Oximetry Oxygen Delivery Method Oxygen Flow Rate BMI result Body Mass Index 35.9 Const General: cooperative, healthy appearing, comfortable, no acute distress, well developed, alert and awake Orientation/consciousness: patient oriented x3 HENMT Head: Yes normal to inspection, Yes No palpable skull fracture present, Yes normocephalic and Yes atraumatic Eyes General: appearance normal, both eyes and all related structures Neck Neck: Yes normal visual inspection, Yes full ROM, Yes no lymphadenopathy, Yes no meningeal signs, Yes trachea midline, Yes supple, No anterior neck swelling and No tender Chest Chest palpation & inspection: normal inspection of the chest and normal palpation of entire chest wall Resp Effort & Inspection: normal respiratory effort and able to speak in complete sentences Auscultation: diminished lung sounds bilateral Cardio Jugular venous distension: no JVD Heart sounds: S1 normal heart sound present and S2 normal heart sound present GI Inspection: Yes normal to inspection and No abdominal wall ecchymosis Palpation (GI): Soft to palpation, not firm, nontender, no guarding and not rigid General: No CVA tenderness and Yes no CVA tenderness Back/Spine/Pelvis Back: no CVA tenderness, No CVA tenderness and No back tenderness Skin General skin exam: no rashes or lesions noted and elasticity normal Neuro General: patient oriented x3, gait normal, no meningeal signs and CN's II-XI intact bilaterally Cranial nerves: Yes CN's II-XII intact bilaterally Extrem Other: Bilateral lower extremity negative for swelling, pitting edema, or calf tenderness. Psych Appearance: grossly normal, well kempt and not disheveled Course Course Course Narrative: COPD exacerbation. Labs,EKG, and albuterol/magneisum, and solumedrol ordered Reevaluation(s) Reevaluation #1: Patient on oxygen saturation increased to 5 liters. 02 saturation was about 81% on 3 L. Another albuterol 10 mg was ordered for patient. ABG also ordered. EKG negative STEMI. Troponin negative. BNP only 234. Patient not in respiratory distress. Time: 16:37 Reevaluation #2: ABG shows normal CO2. Oxygen increased on nasal cannula. Due to oxygen level in ABG of 48. Levaquin ordered. Patient admitted to hospitalist. Chest x-ray negative pneumonia Time: 17:53 Medical Decision Making [facility] Narrative Medical decision making narrative: COPD exacerbation Lab Data Result diagrams: 12/13/21 15:55 12/13/21 15:55 Labs: Lab Results 12/13/21 12/13/21 12/13/21 Range/Units 15:55 15:55 15:55 WBC 8.0 (4.8-10.8) X10*3/uL RBC 3.94 L (4.20-5.50) X10*6/uL Hgb 9.5 L (12.0-16.0) g/dl Hct 32.0 L (37.0-47.0) % MCV 81.2 (80.0-98.0) fL MCH 24.1 L (27.0-33.0) pg MCHC 29.7 L (31.0-35.0) g/dl RDW 15.9 (11.0-16.0) % Plt Count 198 (160-400) X10*3/uL MPV 10.2 (9.4-12.3) fL Immature Gran % (Auto) 0.3 (0.0-0.4) % Neut % (Auto) 84.0 H (45-73) % Lymph % (Auto) 10.3 L (20-40) % [place] % (Auto) 5.0 (2-11) % Eos % (Auto) 0.3 (0-4) % Baso % (Auto) 0.1 (0-2) % Lymph # (Auto) 0.8 L (1.2-4.9) X10*3/uL [place] # (Auto) 0.4 (0.1-1.2) X10*3/uL Eos # (Auto) 0.0 (0.0-0.4) X10*3/uL Baso # (Auto) 0.0 (0.0-0.2) X10*3/uL Abs Immat Gran (auto) 0.02 (0.00-0.03) X10*3/uL Absolute Neuts (auto) 6.7 (2.0-8.3) x10*3/uL Absolute Nucleated RBC 0.000 (0.0-0.012) X10*3/uL Nucleated RBC % (auto) 0.0 (0.0-0.2) /100WBC PT 11.1 (10.0-13.1) SEC INR 1.0 (0.9-1.1) APTT 32.5 (26.0-36.4) SEC O2 Saturation % ABG pH at Pt Temp (7.35-7.45) ABG pCO2 at Pt Temp (32-45) mmHg ABG pO2 at Pt Temp (83-108) mmHg ABG HCO3 (22-26) mmol/L ABG Base Excess (Actual) mmol/L Sodium 142 (135-145) mmol/L Potassium 3.2 L (3.3-5.1) mmol/L Chloride 101 (96-108) mmol/L Carbon Dioxide 31 H (22-29) mmol/L Anion Gap 13 (12-20) BUN 11 D (9-16) mg/dL Creatinine 0.85 (0.5-1.4) mg/dL Estim Creat Clear Calc 73.0 Estimated GFR > 60 Random Glucose 208 H (60-115) mg/dL Lactic Acid (0.5-2.0) mmol/L Calcium 8.4 D (8.4-10.2) mg/dL Total Bilirubin 0.2 (0.0-1.0) mg/dL AST 13 (5-31) U/L ALT 10 (0-31) U/L Alkaline Phosphatase 125 H (39-117) U/L Troponin I High Sens (<3.5-17.0) ng/L B-Natriuretic Peptide (<100) pg/mL Total Protein 7.0 (6.5-8.0) g/dL Albumin 3.9 (3.5-5.0) g/dL COVID-19 (ANEL) (Negative) COVID-19 Clin Com Influenza Type A (ELGIN) (Negative) Influenza Type B (ELGIN) (Negative) Influenza A & B Note 12/13/21 12/13/21 12/13/21 Range/Units 15:55 15:55 15:55 WBC (4.8-10.8) X10*3/uL RBC (4.20-5.50) X10*6/uL Hgb (12.0-16.0) g/dl Hct (37.0-47.0) % MCV (80.0-98.0) fL MCH (27.0-33.0) pg MCHC (31.0-35.0) g/dl RDW (11.0-16.0) % Plt Count (160-400) X10*3/uL MPV (9.4-12.3) fL Immature Gran % (Auto) (0.0-0.4) % Neut % (Auto) (45-73) % Lymph % (Auto) (20-40) % [place] % (Auto) (2-11) % Eos % (Auto) (0-4) % Baso % (Auto) (0-2) % Lymph # (Auto) (1.2-4.9) X10*3/uL [place] # (Auto) (0.1-1.2) X10*3/uL Eos # (Auto) (0.0-0.4) X10*3/uL Baso # (Auto) (0.0-0.2) X10*3/uL Abs Immat Gran (auto) (0.00-0.03) X10*3/uL Absolute Neuts (auto) (2.0-8.3) x10*3/uL Absolute Nucleated RBC (0.0-0.012) X10*3/uL Nucleated RBC % (auto) (0.0-0.2) /100WBC PT (10.0-13.1) SEC INR (0.9-1.1) APTT (26.0-36.4) SEC O2 Saturation % ABG pH at Pt Temp (7.35-7.45) ABG pCO2 at Pt Temp (32-45) mmHg ABG pO2 at Pt Temp (83-108) mmHg ABG HCO3 (22-26) mmol/L ABG Base Excess (Actual) mmol/L Sodium (135-145) mmol/L Potassium (3.3-5.1) mmol/L Chloride (96-108) mmol/L Carbon Dioxide (22-29) mmol/L Anion Gap (12-20) BUN (9-16) mg/dL Creatinine (0.5-1.4) mg/dL Estim Creat Clear Calc Estimated GFR Random Glucose (60-115) mg/dL Lactic Acid 1.7 (0.5-2.0) mmol/L Calcium (8.4-10.2) mg/dL Total Bilirubin (0.0-1.0) mg/dL AST (5-31) U/L ALT (0-31) U/L Alkaline Phosphatase (39-117) U/L Troponin I High Sens 15.8 D (<3.5-17.0) ng/L B-Natriuretic Peptide 264 H (<100) pg/mL Total Protein (6.5-8.0) g/dL Albumin (3.5-5.0) g/dL COVID-19 (ANEL) (Negative) COVID-19 Clin Com Influenza Type A (ELGIN) Negative (Negative) Influenza Type B (ELGIN) Negative (Negative) Influenza A & B Note See Note 12/13/21 12/13/21 Range/Units 15:55 16:57 WBC (4.8-10.8) X10*3/uL RBC (4.20-5.50) X10*6/uL Hgb (12.0-16.0) g/dl Hct (37.0-47.0) % MCV (80.0-98.0) fL MCH (27.0-33.0) pg MCHC (31.0-35.0) g/dl RDW (11.0-16.0) % Plt Count (160-400) X10*3/uL MPV (9.4-12.3) fL Immature Gran % (Auto) (0.0-0.4) % Neut % (Auto) (45-73) % Lymph % (Auto) (20-40) % [place] % (Auto) (2-11) % Eos % (Auto) (0-4) % Baso % (Auto) (0-2) % Lymph # (Auto) (1.2-4.9) X10*3/uL [place] # (Auto) (0.1-1.2) X10*3/uL Eos # (Auto) (0.0-0.4) X10*3/uL Baso # (Auto) (0.0-0.2) X10*3/uL Abs Immat Gran (auto) (0.00-0.03) X10*3/uL Absolute Neuts (auto) (2.0-8.3) x10*3/uL Absolute Nucleated RBC (0.0-0.012) X10*3/uL Nucleated RBC % (auto) (0.0-0.2) /100WBC PT (10.0-13.1) SEC INR (0.9-1.1) APTT (26.0-36.4) SEC O2 Saturation 79.0 % ABG pH at Pt Temp 7.48 H (7.35-7.45) ABG pCO2 at Pt Temp 42 (32-45) mmHg ABG pO2 at Pt Temp 48 L* (83-108) mmHg ABG HCO3 31 H (22-26) mmol/L ABG Base Excess (Actual) 7.3 mmol/L Sodium (135-145) mmol/L Potassium (3.3-5.1) mmol/L Chloride (96-108) mmol/L Carbon Dioxide (22-29) mmol/L Anion Gap (12-20) BUN (9-16) mg/dL Creatinine (0.5-1.4) mg/dL Estim Creat Clear Calc Estimated GFR Random Glucose (60-115) mg/dL Lactic Acid (0.5-2.0) mmol/L Calcium (8.4-10.2) mg/dL Total Bilirubin (0.0-1.0) mg/dL AST (5-31) U/L ALT (0-31) U/L Alkaline Phosphatase (39-117) U/L Troponin I High Sens (<3.5-17.0) ng/L B-Natriuretic Peptide (<100) pg/mL Total Protein (6.5-8.0) g/dL Albumin (3.5-5.0) g/dL COVID-19 (ANEL) Negative (Negative) COVID-19 Clin Com See Note Influenza Type A (ELGIN) (Negative) Influenza Type B (ELGIN) (Negative) Influenza A & B Note ECG Data Interpretation: Normal sinus rhythm. Ventricular rate 78. Pr interval 110. QRS 120. QTC 506. Negative STEMI Discharge Plan Discharge Clinical Impression: COPD with acute exacerbation Patient Disposition: Admitted As Inpatient
[2021-12-13] MEDS: Albuterol/Iprat 2.5/0.5MG 3 ML AMPUL.NEB INHALE ×2 (15:55→20:09)
[2021-12-13 16:01] LABS: MANUAL DIFF FLAG NO
[2021-12-13 16:03] LABS: Basophils Percent Auto 0.1 % (0-2); Eosinophils Percent Auto 0.3 % (0-4); Hemoglobin 9.5 g/dl (12.0-16.0); Imm Gran Abs Auto 0.02 X10*3/uL (0.00-0.03); Imm Gran Pct Auto 0.3 % (0.0-0.4); Lymphocytes Absolute Auto 0.8 X10*3/uL (1.2-4.9); Lymphocytes Percent Auto 10.3 % (20-40); Mean Corpuscular HGB Conc 29.7 g/dl (31.0-35.0); Mean Corpuscular Hemoglobin 24.1 pg (27.0-33.0); Mean Corpuscular Volume 81.2 fL (80.0-98.0); Mean Platelet Volume 10.2 fL (9.4-12.3); Monocytes Absolute Auto 0.4 X10*3/uL (0.1-1.2); Neutrophils Absolute Auto 6.7 x10*3/uL (2.0-8.3); Platelet Count 198 X10*3/uL (160-400); Red Blood Count 3.94 X10*6/uL (4.20-5.50); Red Cell Distribution Width 15.9 % (11.0-16.0)
[2021-12-13 16:08] LABS: Prothrombin Time 11.1 SEC (10.0-13.1)
[2021-12-13 16:11] LABS: Partial Thromboplastin Time 32.5 SEC (26.0-36.4)
[2021-12-13 16:15] LABS: Lactic Acid 1.7 mmol/L (0.5-2.0)
[2021-12-13 16:20] LABS: COVID-19 Test Negative (Negative); IDNOW Serial# 16C4AD1C; Influenza A Negative (Negative); Influenza B2 Negative (Negative)
[2021-12-13 16:21] LABS: Alanine Aminotransferase 10 U/L (0-31); Albumin Level 3.9 g/dL (3.5-5.0); Alkaline Phosphatase 125 U/L (39-117); Anion Gap 13 (12-20); Aspartate Amino Transferase 13 U/L (5-31); Bilirubin Total 0.2 mg/dL (0.0-1.0); Blood Urea Nitrogen 11 mg/dL (9-16); Calcium 8.4 mg/dL (8.4-10.2); Carbon Dioxide 31 mmol/L (22-29); Chloride 101 mmol/L (96-108); Estimated Glomerular Filt Rate > 60; Glucose Random 208 mg/dL (60-115); Potassium 3.2 mmol/L (3.3-5.1); Sodium 142 mmol/L (135-145)
[2021-12-13 16:25] LABS: B Type Natriuretic Peptide 264 pg/mL (<100); Troponin-I High Sensitivity 15.8 ng/L (<3.5-17.0)
--- NOTE | 2021-12-13 17:04 | PC.NURSE ---
medication late due to not being able to start IV line. Charge notified.
[2021-12-13 17:05] LABS: ABG Base Excess 7.3 mmol/L; ABG HCO3 31 mmol/L (22-26); ABG pCO2 42 mmHg (32-45); ABG pH 7.48 (7.35-7.45); ABG pO2 48 mmHg (83-108)
[2021-12-13] MEDS: Magnesium Sulfate/H2O 2 GM/50 ML PIGGYBACK IV (17:25)
[2021-12-13] MEDS: methylPREDNISolone Sod Succ 125 MG/2 ML VIAL IVPUSH (17:26)
--- NOTE | 2021-12-13 17:52 | P.HPHOSP_ITS ---
History of Present Illness Date of Service: 12/13/21 Attending physician on admission: Hamilton Weber Chief Complaint: shortness of breath this is a 61-year-old female with history of COPD who presents to the emergency department with complaints of shortness of breath. she states that she has always short of breath but for the past 2 days it has been worse than usual. She does endorse a cough however no change from her baseline, no increased sputum production. She denies any associated fever or chills. She does have some left-sided chest pain which is worse with coughing and reproducible on exam. Initially it was documented that her oxygen saturation was 83% on 5 L. She typically uses 3-4 L at baseline for her COPD. Chest x-ray showed no evidence of pneumonia, COVID screen was negative. She was treated with IV Solu- Medrol, IV magnesium, IV antibiotics and breathing treatments and the decision was made to admit her to the hospital for further management of acute COPD exacerbation. COVID vaccination status- she received 1 COVID vaccine but is unable to recall which 1 Review of Systems Review of Systems: Yes all other systems are reviewed and are negative Constitutional: Constitutional: Denies chills and Denies fever(s) Cardiovascular: Cardiovascular: Denies palpitations and Reports dyspnea Respiratory: Respiratory: Reports pain with cough and Reports dyspnea Gastrointestinal: Gastrointestinal: Denies abdominal pain Endocrine: Endocrine: Denies palpitations [facility] Medical History Anxiety Chronic respiratory failure Depression Diabetes Essential hypertension HFrEF (heart failure with reduced ejection fraction) HLD (hyperlipidemia) HTN (hypertension) Non-rheumatic mitral regurgitation Nonischemic cardiomyopathy KELLIE (obstructive sleep apnea) Osteoporosis Pulmonary hypertension Severe chronic obstructive pulmonary disease Supraventricular tachycardia Tobacco abuse Functional capacity: independent ambulation Family History Father No problems noted. 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 home services: Yes ([employer]) Alcohol intake: never Patient Tobacco Use Status: Current everyday Tobacco user Tobacco use type: Cigarette Cigarette Packs Per Day: 1 Cigarettes Per Day: 5 Years Smoked: 50 +/- Smoked in Last 30 Days: Yes Patient Interested in Nicotine Replacement: No Patient Given Instructions on How to Stop Smoking: Yes Date Education Initiated: 12/14/21 Second Hand Smoke Exposure: No Use of substances other than those prescribed or required for medical reasons: No Currently Displaying Signs/Symptoms of Drug Intoxication Withdrawal: No Any prior treatment program specific to substance use: No Have you been hit, kicked, punched, or otherwise hurt by someone within the past year? If so, by whom?: No Do you feel safe in your current relationship?: No Current Relationship Is there a partner from a previous relationship who is making you feel unsafe now?: No Are you made to feel afraid or neglected: No Advance Directives: Yes Advance Directives on File: Yes Advance Directives Date on File: 04/30/20 Do you have thoughts of harming others: None Do you have a plan to hurt others: No Plan Recently lost weight without trying: No Eating poorly because of decreased appetite: No Nutrition Risks: No Nutritional Risk Patient : No : No Poor oral hygiene: No service: No Current occupational status: unemployed, retired and disabled Meds Allergies Allergy/AdvReac Type Severity Reaction Status Date / Time nicotine [Nicotine] Allergy Mild ITCHING Verified 10/10/21 13:42 WITH THE PATCHES topiramate Allergy Mild inadequealte Verified 10/10/21 13:42 response Active Medications: Current Medications Levofloxacin (Levaquin) 500 mg in 100 mls @ 100 mls/hr IV ONCE ONE Stop: 12/13/21 17:53 Pharmacy Consult (Consult Rx Perform Med Rec) 1 each MISCELLANE ONCE PRN PRN Reason: Consult order Home Medications Medication Instructions Recorded Confirmed Last Taken Type trazodone 50 mg tablet 50 - 100 mg PO BEDTIME PRN Sleep 03/08/20 12/13/21 03/29/21 History nicotine 10 mg inhalation 1 inh inhalation Q2H PRN Smoking 03/30/21 12/13/21 03/30/21 History cartridge (Nicotrol) Cessation prednisone 5 mg tablet 1 tab PO DAILY 06/22/21 12/13/21 06/21/21 History fluticasone furoate 100 1 puff PO DAILY 12/13/21 12/13/21 Unknown History mcg-vilanterol 25 mcg/dose inhalation powder Physical Exam Vital Signs and Narrative: Vital Signs: Last Vital Signs Temp 97.9 F 12/13/21 16:04 Pulse 92 12/13/21 16:43 Resp 18 12/13/21 16:43 BP 145/90 H 12/13/21 16:18 Pulse Ox 81 L 12/13/21 16:18 O2 Del Method 12/13/21 16:18 O2 Flow Rate 4 12/13/21 16:18 Oxygen Flow Rate 4 12/13/21 16:04 BMI result Body Mass Index 35.9 Const: General: cooperative, comfortable, no acute distress, alert and awake Nutritional Appearance: overweight Orientation/consciousness: patient oriented x3 Chest: Other: reproducible chest pain left anterior chest wall Resp: Effort & Inspection: normal respiratory effort and able to speak in complete sentences Auscultation: clear to auscultation bilaterally Cardio: Rate: regular rate Heart sounds: S1 normal heart sound present and S2 normal heart sound present GI: Inspection: No distended Palpation (GI): Soft to palpation and nontender Neuro: General: patient oriented x3 and CN's II-XI intact bilaterally Extrem: General: Yes no pedal edema Results Labs CBC and Chem 7: 12/14/21 06:24 12/14/21 06:24 Labs: Laboratory Results - last 24 hr 12/13/21 12/13/21 12/13/21 15:55 15:55 15:55 MCV 81.2 MCH 24.1 L MCHC 29.7 L RDW 15.9 Plt Count 198 MPV 10.2 Immature Gran % (Auto) 0.3 Neut % (Auto) 84.0 H Lymph % (Auto) 10.3 L Perkins % (Auto) 5.0 Eos % (Auto) 0.3 Baso % (Auto) 0.1 Lymph # (Auto) 0.8 L Perkins # (Auto) 0.4 Eos # (Auto) 0.0 Baso # (Auto) 0.0 Abs Immat Gran (auto) 0.02 Absolute Neuts (auto) 6.7 Absolute Nucleated RBC 0.000 Nucleated RBC % (auto) 0.0 PT 11.1 INR 1.0 APTT 32.5 O2 Saturation ABG pH at Pt Temp ABG pCO2 at Pt Temp ABG pO2 at Pt Temp ABG HCO3 ABG Base Excess (Actual) Anion Gap 13 Estim Creat Clear Calc 73.0 Estimated GFR > 60 Random Glucose 208 H Lactic Acid Calcium 8.4 D Total Bilirubin 0.2 AST 13 ALT 10 Alkaline Phosphatase 125 H B-Natriuretic Peptide Total Protein 7.0 Albumin 3.9 COVID-19 (ANEL) COVID-19 Clin Com Influenza Type A (ELGIN) Influenza Type B (ELGIN) Influenza A & B Note 12/13/21 12/13/21 12/13/21 15:55 15:55 15:55 MCV MCH MCHC RDW Plt Count MPV Immature Gran % (Auto) Neut % (Auto) Lymph % (Auto) Perkins % (Auto) Eos % (Auto) Baso % (Auto) Lymph # (Auto) Perkins # (Auto) Eos # (Auto) Baso # (Auto) Abs Immat Gran (auto) Absolute Neuts (auto) Absolute Nucleated RBC Nucleated RBC % (auto) PT INR APTT O2 Saturation ABG pH at Pt Temp ABG pCO2 at Pt Temp ABG pO2 at Pt Temp ABG HCO3 ABG Base Excess (Actual) Anion Gap Estim Creat Clear Calc Estimated GFR Random Glucose Lactic Acid 1.7 Calcium Total Bilirubin AST ALT Alkaline Phosphatase B-Natriuretic Peptide 264 H Total Protein Albumin COVID-19 (ANEL) COVID-19 Clin Com Influenza Type A (ELGIN) Negative Influenza Type B (ELGIN) Negative Influenza A & B Note See Note 12/13/21 12/13/21 15:55 16:57 MCV MCH MCHC RDW Plt Count MPV Immature Gran % (Auto) Neut % (Auto) Lymph % (Auto) Perkins % (Auto) Eos % (Auto) Baso % (Auto) Lymph # (Auto) Perkins # (Auto) Eos # (Auto) Baso # (Auto) Abs Immat Gran (auto) Absolute Neuts (auto) Absolute Nucleated RBC Nucleated RBC % (auto) PT INR APTT O2 Saturation 79.0 ABG pH at Pt Temp 7.48 H ABG pCO2 at Pt Temp 42 ABG pO2 at Pt Temp 48 L* ABG HCO3 31 H ABG Base Excess (Actual) 7.3 Anion Gap Estim Creat Clear Calc Estimated GFR Random Glucose Lactic Acid Calcium Total Bilirubin AST ALT Alkaline Phosphatase B-Natriuretic Peptide Total Protein Albumin COVID-19 (ANEL) Negative COVID-19 Clin Com See Note Influenza Type A (ELGIN) Influenza Type B (ELGIN) Influenza A & B Note Imaging Radiologist's Impressions: Impressions Chest X-Ray 12/13/21 15:44 IMPRESSION: No significant change since 10/12/2021. Assessment and Plan (1) Acute on chronic respiratory failure with hypoxemia: Status: Acute (2) COPD with acute exacerbation: Status: Acute Plan this is a 61-year-old female with COPD/chronic respiratory failure on 3-4 L of home supplemental oxygen, KELLIE noncompliant with CPAP, nonischemic cardiomyopathy, obesity, ongoing tobacco use who presents to the emergency department with shortness of breath found to be hypoxic acute on chronic respiratory failure with hypoxia O2 sats documented in low 80s;Currently on 4 L, her baseline Chest x-ray with no evidence of fluid overload or pneumonia, covid negative likely secondary to acute COPD exacerbation Acute COPD exacerbation Systemic steroids, scheduled and as needed breathing treatments Continue supplemental oxygen afebrile, no leukocytosis, no significant change in cough or sputum production, no indication for antibiotics at this time no evidence of sepsis hypokalemia Replace and follow BMP chronic normocytic anemia H/ H near baseline DM SSI, POCs nonischemic cardiomyopathy/HFrEF EF 30% Morbid obesity Weight loss recommended KELLIE Noncompliant with CPAP tobacco dependence Patient continues to smoke 5 cigarettes daily smoking cessation advised med reconciliation pending at the time of admission DVT prophylaxis with Lovenox code status-Full code attending-Dr. Weber patient will likely require 2 midnight stay in the hospital due to hypoxic respiratory failure and management of acute COPD exacerbation Quality Stroke Does the patient have a stroke diagnosis?: No VTE Prior VTE?: No VTE Risk Level:: Medical - moderate - high VTE Device Contraindication: N/A - Device Ordered VTE Drug Contraindication: N/A - Med Ordered
--- NOTE | 2021-12-13 18:17 | PC.NURSE ---
Antibiotic started late due to blood culutres needing to be ordered.
--- NOTE | 2021-12-13 18:45 | PHA.MEDREC ---
Pharmacy Consult ? Medication Reconciliation Pharmacy has completed the medication reconciliation. Patient is poor historian. Told me she picks up from [employer], used claim history from [employer].
[2021-12-13 20:02] LABS: Glucose, Whole Blood 154 mg/dL (60-115)
[2021-12-13] MEDS: levoFLOXacin/D5W 500 MG/100 ML PIGGYBACK 100 MG IV (20:11)
[2021-12-13] MEDS: Enoxaparin Sodium 40 MG/0.4 ML SYRINGE SUBCUT (20:11)
[2021-12-13] MEDS: Insulin Lispro 100 UNIT/ML 3 ML VIAL SUBCUT (20:11)
[2021-12-13] MEDS: Potassium Chloride ER 20 MEQ TAB.ER.PRT 40 MEQ PO (20:12)
[2021-12-13] MEDS: methylPREDNISolone Sod Succ 40 MG/ML VIAL IVPUSH (20:12)
[2021-12-13 21:45] LABS: ABG Refer to POC result
[2021-12-14] VITALS (11 sets, daily range): BP systolic 133–189; BP diastolic 79–143; PULSE 78–91; RESP 18–20; TEMP 36.2–37; O2SAT 84–97; BMI 36.4
[2021-12-14] MEDS: traZODone HCL 50 MG TABLET PO ×2 (00:21→21:20)
[2021-12-14] MEDS: methylPREDNISolone Sod Succ 40 MG/ML VIAL IVPUSH ×2 (06:06→17:57)
[2021-12-14 07:30] LABS: Hematocrit 32.3 % (37.0-47.0); Hemoglobin 9.6 g/dl (12.0-16.0); Mean Corpuscular HGB Conc 29.7 g/dl (31.0-35.0); Mean Corpuscular Hemoglobin 23.9 pg (27.0-33.0); Mean Corpuscular Volume 80.3 fL (80.0-98.0); Mean Platelet Volume 10.7 fL (9.4-12.3); Platelet Count 191 X10*3/uL (160-400); Red Blood Count 4.02 X10*6/uL (4.20-5.50); Red Cell Distribution Width 15.8 % (11.0-16.0); White Blood Count 8.5 X10*3/uL (4.8-10.8)
[2021-12-14 07:46] LABS: Glucose, Whole Blood 160 mg/dL (60-115)
[2021-12-14] MEDS: Albuterol/Iprat 2.5/0.5MG 3 ML AMPUL.NEB INHALE ×3 (07:52→20:37)
[2021-12-14 08:10] LABS: Blood Urea Nitrogen 11 mg/dL (9-16); Creatinine Clr Calc Pharmacy 74.4; Estimated Glomerular Filt Rate > 60; Glucose Random 156 mg/dL (60-115)
[2021-12-14] MEDS: Insulin Lispro 100 UNIT/ML 3 ML VIAL SUBCUT ×3 (08:24→17:57)
[2021-12-14] MEDS: 0.9 % Sodium Chloride Flush 3 ML SYRINGE IVFLUSH ×2 (08:26→17:57)
[2021-12-14 08:39] LABS: Anion Gap 18 (12-20); Calcium 8.8 mg/dL (8.4-10.2); Carbon Dioxide 28 mmol/L (22-29); Chloride 101 mmol/L (96-108); Sodium 143 mmol/L (135-145)
--- NOTE | 2021-12-14 10:09 | PM.EVENT ---
Event Note Date of Service: 12/13/21 Event Note: Date of service: 12/13/21 This patient is seen and examined with APC. came with sob getting worse , some reproducable chest tightness , gets more with coughing Lab imaging, EKG reviewed. No leukocytosis, mild hypokalemia. Troponin fine Chest x-ray : No new changes Physical exam : Appearance: Alert.? Oriented X3.?some sob. cvs: rrr, [id number] , no murmur res:grossly fair air entry,few rhonchii abd: no rebound or guarding ,nt, bs present. ext pulses present , no cyanosis ,Gait well balanced well coordinated. neuro: axo3 , nonfocal. assessment and plan coordinated in APCs note, Agree with the plan in addition: acute on chronic respiratory failure with hypoxia sec to copd excerebation continue nebs ,steriods ,oxygen support,cough med blood pressure flactuing ,continue home medictaions.
[2021-12-14] MEDS: Losartan Potassium 50 MG TABLET 100 MG PO (10:48)
[2021-12-14] MEDS: Isosorbide Mononitrate 30 MG TAB.ER.24H PO (10:48)
[2021-12-14] MEDS: carvediloL 3.125 MG TABLET PO ×2 (10:49→21:16)
[2021-12-14] MEDS: amLODIPine Besylate 10 MG TABLET PO (10:49)
[2021-12-14] MEDS: Furosemide 40 MG TABLET PO (10:49)
--- NOTE | 2021-12-14 11:10 | HO.PM.IMPN ---
Subjective Subjective Date of Service: 12/14/21 Interval History: seen and examined this morning Follow-up for COPD exacerbation Reports improvement in breathing, no change in cough-still at baseline denies any fever, chills Review of Systems Review of Systems: Yes all other systems are reviewed and are negative Constitutional Constitutional: Denies chills and Denies fever(s) Cardiovascular Cardiovascular: Denies chest pain, Denies palpitations, Reports dyspnea and Denies paroxysmal nocturnal dyspnea Respiratory Respiratory: Reports cough and Reports dyspnea Gastrointestinal Gastrointestinal: Denies abdominal pain, Denies diarrhea, Denies nausea and Denies vomiting Endocrine Endocrine: Denies palpitations Physical Exam Vital Signs: Vital Signs: Last Vital Signs Temp 98.3 F 12/14/21 08:00 Pulse 91 12/14/21 08:00 Resp 20 12/14/21 08:00 BP 162/81 H 12/14/21 08:00 Pulse Ox 90 L 12/14/21 08:00 O2 Del Method 12/14/21 08:00 O2 Flow Rate 4 12/14/21 08:00 Oxygen Flow Rate 4 12/13/21 16:04 BMI result Body Mass Index 36.4 Const: General: cooperative, comfortable, no acute distress, alert and awake Nutritional Appearance: overweight Orientation/consciousness: patient oriented x3 Resp: Other: minimal left base crackles Effort & Inspection: normal respiratory effort and able to speak in complete sentences Cardio: Rate: regular rate Heart sounds: S1 normal heart sound present and S2 normal heart sound present GI: Inspection: No distended Palpation (GI): Soft to palpation and nontender Neuro: General: patient oriented x3 and CN's II-XI intact bilaterally Extrem: General: Yes no pedal edema Objective Data Active Medications Acetaminophen (Acetaminophen 325 Mg Tablet) 650 mg PO Q6H PRN PRN Reason: Pain, Mild (Pain Scale 1-3) Albuterol/Ipratropium (Albuterol/Iprat 2.5/0.5mg 3 Ml Ampul.Neb) 3 ml INHALE RQ6H WHILE AWAKE WALDEMAR Last Admin: 12/14/21 07:52 Dose: 3 ml Documented By: MARCIAL Albuterol/Ipratropium (Albuterol/Iprat 2.5/0.5mg 3 Ml Ampul.Neb) 3 ml INHALE RQ6H PRN PRN Reason: Shortness of Breath Amlodipine Besylate (Amlodipine Besylate 10 Mg Tablet) 10 mg PO DAILY [facility]; Protocol Last Admin: 12/14/21 10:49 Dose: 10 mg Documented By: LISSETT Carvedilol (Carvedilol 3.125 Mg Tablet) 3.125 mg PO BID [facility]; Protocol Last Admin: 12/14/21 10:49 Dose: 3.125 mg Documented By: LISSETT Dextrose (Dextrose 50 % 25 Gm/50 Ml Syringe) 25 gm IVPUSH Q15M PRN; Protocol PRN Reason: per Hypoglycemia Standing Ord. Docusate Sodium (Docusate Sodium 100 Mg Capsule) 100 mg PO DAILY PRN PRN Reason: Constipation Enoxaparin Sodium (Enoxaparin Sodium 40 Mg/0.4 Ml Syringe) 40 mg SUBCUT Q24H [facility] Last Admin: 12/13/21 20:11 Dose: 40 mg Documented By: KERI Furosemide (Furosemide 40 Mg Tablet) 40 mg PO DAILY [facility]; Protocol Last Admin: 12/14/21 10:49 Dose: 40 mg Documented By: LISSETT Glucose (Glucose Gel 15 Gm Gel..Gram.) 15 gm PO Q15M PRN; Protocol PRN Reason: per Hypoglycemia Standing Ord. Insulin Human Lispro (Insulin Lispro 100 Unit/Ml 3 Ml Vial) 0 unit SUBCUT QIDACHS [facility]; Protocol Last Admin: 12/14/21 08:24 Dose: 2 unit Documented By: LISSETT Isosorbide Mononitrate (Isosorbide Mononitrate 30 Mg Tab.Er.24h) 30 mg PO DAILY [facility]; Protocol Last Admin: 12/14/21 10:48 Dose: 30 mg Documented By: LISSETT Losartan Potassium (Losartan Potassium 50 Mg Tablet) 100 mg PO DAILY [facility]; Protocol Last Admin: 12/14/21 10:48 Dose: 100 mg Documented By: LISSETT Meclizine HCl (Meclizine Hcl 25 Mg Tablet) 25 mg PO TID PRN PRN Reason: dizziness Methylprednisolone Sodium Succinate (Methylprednisolone Sod Succ 40 Mg/Ml Vial) 40 mg IVPUSH Q12H [facility] Last Admin: 12/14/21 06:06 Dose: 40 mg Documented By: TAMMI Montelukast Sodium (Montelukast Sodium 10 Mg Tablet) 10 mg PO BEDTIME [facility] Pharmacy Consult (Consult Rx Perform Med Rec) 1 each MISCELLANE ONCE PRN PRN Reason: Consult order Quetiapine Fumarate (Quetiapine Fumarate 50 Mg Tablet) 50 mg PO BID [facility] Sertraline HCl (Sertraline Hcl 100 Mg Tablet) 200 mg PO DAILY [facility] Sodium Chloride (0.9 % Sodium Chloride Flush 3 Ml Syringe) 3 ml IVFLUSH QSHIFT [place] Last Admin: 12/14/21 08:26 Dose: 3 ml Documented By: CTORRWili Trazodone HCl (Trazodone Hcl 50 Mg Tablet) 50 - 100 mg PO BEDTIME PRN PRN Reason: Sleep Last Admin: 12/14/21 00:21 Dose: 100 mg Documented By: HALEIGH Labs CBC & Chem 7: 12/14/21 06:24 12/14/21 06:24 Labs: Laboratory Results - last 24 hr 12/13/21 12/13/21 12/13/21 15:55 15:55 15:55 MCV 81.2 MCH 24.1 L MCHC 29.7 L RDW 15.9 Plt Count 198 MPV 10.2 Immature Gran % (Auto) 0.3 Neut % (Auto) 84.0 H Lymph % (Auto) 10.3 L Wilkin % (Auto) 5.0 Eos % (Auto) 0.3 Baso % (Auto) 0.1 Lymph # (Auto) 0.8 L Wilkin # (Auto) 0.4 Eos # (Auto) 0.0 Baso # (Auto) 0.0 Abs Immat Gran (auto) 0.02 Absolute Neuts (auto) 6.7 Absolute Nucleated RBC 0.000 Nucleated RBC % (auto) 0.0 PT 11.1 INR 1.0 APTT 32.5 O2 Saturation ABG pH at Pt Temp ABG pCO2 at Pt Temp ABG pO2 at Pt Temp ABG HCO3 ABG Base Excess (Actual) Anion Gap 13 Estim Creat Clear Calc 73.0 Estimated GFR > 60 POC Glucose Random Glucose 208 H Lactic Acid Calcium 8.4 D Total Bilirubin 0.2 AST 13 ALT 10 Alkaline Phosphatase 125 H B-Natriuretic Peptide Total Protein 7.0 Albumin 3.9 COVID-19 (ANEL) COVID-19 Clin Com Influenza Type A (ELGIN) Influenza Type B (ELGIN) Influenza A & B Note 12/13/21 12/13/2112/13/22 15:55 15:55 15:55 MCV MCH MCHC RDW Plt Count MPV Immature Gran % (Auto) Neut % (Auto) Lymph % (Auto) Wilkin % (Auto) Eos % (Auto) Baso % (Auto) Lymph # (Auto) Wilkin # (Auto) Eos # (Auto) Baso # (Auto) Abs Immat Gran (auto) Absolute Neuts (auto) Absolute Nucleated RBC Nucleated RBC % (auto) PT INR APTT O2 Saturation ABG pH at Pt Temp ABG pCO2 at Pt Temp ABG pO2 at Pt Temp ABG HCO3 ABG Base Excess (Actual) Anion Gap Estim Creat Clear Calc Estimated GFR POC Glucose Random Glucose Lactic Acid 1.7 Calcium Total Bilirubin AST ALT Alkaline Phosphatase B-Natriuretic Peptide 264 H Total Protein Albumin COVID-19 (ANEL) COVID-[employer] Com Influenza Type A (ELGIN) Negative Influenza Type B (ELGIN) Negative Influenza A & B Note See Note 12/13/21 12/13/21 12/13/21 15:55 16:57 19:59 MCV MCH MCHC RDW Plt Count MPV Immature Gran % (Auto) Neut % (Auto) Lymph % (Auto) Wilkin % (Auto) Eos % (Auto) Baso % (Auto) Lymph # (Auto) Wilkin # (Auto) Eos # (Auto) Baso # (Auto) Abs Immat Gran (auto) Absolute Neuts (auto) Absolute Nucleated RBC Nucleated RBC % (auto) PT INR APTT O2 Saturation 79.0 ABG pH at Pt Temp 7.48 H ABG pCO2 at Pt Temp 42 ABG pO2 at Pt Temp 48 L* ABG HCO3 31 H ABG Base Excess (Actual) 7.3 Anion Gap Estim Creat Clear Calc Estimated GFR POC Glucose 154 H Random Glucose Lactic Acid Calcium Total Bilirubin AST ALT Alkaline Phosphatase B-Natriuretic Peptide Total Protein Albumin COVID-19 (ANEL) Negative COVID-[employer] Com See Note Influenza Type A (ELGIN) Influenza Type B (ELGIN) Influenza A & B Note 12/14/21 12/14/21 12/14/21 06:24 06:24 07:25 MCV 80.3 MCH 23.9 L MCHC 29.7 L RDW 15.8 Plt Count 191 MPV 10.7 Immature Gran % (Auto) Neut % (Auto) Lymph % (Auto) Wilkin % (Auto) Eos % (Auto) Baso % (Auto) Lymph # (Auto) Wilkin # (Auto) Eos # (Auto) Baso # (Auto) Abs Immat Gran (auto) Absolute Neuts (auto) Absolute Nucleated RBC 0.000 Nucleated RBC % (auto) 0.0 PT INR APTT O2 Saturation ABG pH at Pt Temp ABG pCO2 at Pt Temp ABG pO2 at Pt Temp ABG HCO3 ABG Base Excess (Actual) Anion Gap 18 Estim Creat Clear Calc 74.4 Estimated GFR > 60 POC Glucose 160 H Random Glucose 156 H Lactic Acid Calcium 8.8 Total Bilirubin AST ALT Alkaline Phosphatase B-Natriuretic Peptide Total Protein Albumin COVID-19 (ANEL) COVID-19 Clin Com Influenza Type A (ELGIN) Influenza Type B (ELGIN) Influenza A & B Note Assessment and Plan (1) Acute on chronic respiratory failure with hypoxemia: Status: Acute (2) COPD with acute exacerbation: Status: Acute Plan this is a 61-year-old female with COPD/chronic respiratory failure on 3-4 L of home supplemental oxygen, KELLIE noncompliant with CPAP, nonischemic cardiomyopathy, obesity, ongoing tobacco use who presents to the emergency department with shortness of breath found to be hypoxic acute on chronic respiratory failure with hypoxia O2 sats documented in low 80s;Currently 90% on 4 L, her baseline Chest x-ray with no evidence of fluid overload or pneumonia, covid negative likely secondary to acute COPD exacerbation Acute COPD exacerbation Systemic steroids, scheduled and as needed breathing treatments Continue supplemental oxygen afebrile, no leukocytosis, no significant change in cough,no sputum production, no indication for antibiotics at this time no evidence of sepsis hypokalemia resolved with oral replacement chronic normocytic anemia H/ H near baseline DM SSI, POCs hypertension Continue Norvasc, carvedilol, losartan nonischemic cardiomyopathy/HFrEF EF 30% continue Imdur, Lasix Morbid obesity Weight loss recommended KELLIE Noncompliant with CPAP tobacco dependence Patient continues to smoke 5 cigarettes daily smoking cessation advised DVT prophylaxis with Lovenox code status-Full code attending-Dr. Card patient requires ongoing inpatient hospitalization for systemic steroids and management of COPD exacerbation Quality Stroke Does the patient have a stroke diagnosis?: No VTE Prior VTE?: No VTE Risk Level:: Medical - moderate - high VTE Device Contraindication: N/A - Device Ordered VTE Drug Contraindication: N/A - Med Ordered
[2021-12-14 11:21] LABS: Glucose, Whole Blood 179 mg/dL (60-115)
[2021-12-14 15:55] LABS: Glucose, Whole Blood 157 mg/dL (60-115)
[2021-12-14] MEDS: Enoxaparin Sodium 40 MG/0.4 ML SYRINGE SUBCUT (17:57)
[2021-12-14 20:51] LABS: Glucose, Whole Blood 145 mg/dL (60-115)
[2021-12-14] MEDS: QUEtiapine Fumarate 50 MG TABLET PO (21:16)
[2021-12-14] MEDS: Montelukast Sodium 10 MG TABLET PO (21:16)
[2021-12-14] MEDS: Acetaminophen 325 MG TABLET 650 MG PO (21:20)
[2021-12-15 02:46] VITALS: BP 133/79; PULSE 75; RESP 18; TEMP 36.3; O2SAT 94
[2021-12-15] MEDS: methylPREDNISolone Sod Succ 40 MG/ML VIAL IVPUSH (05:47)
[2021-12-15 07:14] LABS: Anion Gap 15 (12-20); Calcium 9.1 mg/dL (8.4-10.2); Carbon Dioxide 29 mmol/L (22-29); Chloride 102 mmol/L (96-108); Creatinine Clr Calc Pharmacy 68.7; Estimated Glomerular Filt Rate > 60; Glucose Random 117 mg/dL (60-115); Magnesium 2.1 mg/dL (1.6-2.6); Potassium 3.8 mmol/L (3.3-5.1); Sodium 142 mmol/L (135-145)
[2021-12-15 07:43] VITALS: BP 129/84; PULSE 96; RESP 20; TEMP 36.6; O2SAT 95
[2021-12-15 07:55] LABS: Blood Urea Nitrogen 22 mg/dL (9-16)
[2021-12-15 08:09] LABS: Glucose, Whole Blood 126 mg/dL (60-115)
[2021-12-15] MEDS: 0.9 % Sodium Chloride Flush 3 ML SYRINGE IVFLUSH (08:38)
[2021-12-15] MEDS: Losartan Potassium 50 MG TABLET 100 MG PO (08:38)
[2021-12-15] MEDS: QUEtiapine Fumarate 50 MG TABLET PO (08:39)
[2021-12-15] MEDS: carvediloL 3.125 MG TABLET PO (08:39)
[2021-12-15] MEDS: Isosorbide Mononitrate 30 MG TAB.ER.24H PO (08:39)
[2021-12-15] MEDS: Sertraline HCL 100 MG TABLET 200 MG PO (08:39)
[2021-12-15] MEDS: Furosemide 40 MG TABLET PO (08:39)
[2021-12-15] MEDS: amLODIPine Besylate 10 MG TABLET PO (08:39)
--- NOTE | 2021-12-15 09:31 | P.DS_ITS ---
DS: Providers Provider Date of Service: 12/15/21 Date of admission: 12/13/21 17:54 Date of discharge: 12/15/21 Primary care physician: Analisa Chavez MD Attending physician on discharge: Kailey Angelo Discharging clinician: Carola Amezquita DS: Diagnosis Discharge Diagnosis (1) Acute on chronic respiratory failure with hypoxemia: Status: Acute (2) COPD with acute exacerbation: Status: Acute DS: Summary Hospital Course Hospital Course: from H&P on day of admission this is a 61-year-old female with history of COPD who presents to the emergency department with complaints of shortness of breath.? she states that she has always short of breath but for the past 2 days it has been worse than usual.? She does endorse a cough however no change from her baseline, no increased sputum production.? She denies any associated fever or chills.? She does have some left-sided chest pain which is worse with coughing and reproducible on exam.? Initially it was documented that her oxygen saturation was 83% on 5 L. She typically uses 3-4 L at baseline for her COPD.? Chest x-ray showed no evidence of pneumonia, COVID screen was negative.? She was treated with IV Solu-Medrol, IV magnesium, IV antibiotics and breathing treatments and the decision was made to admit her to the hospital for further management of acute COPD exacerbation. COVID vaccination status- she received 1 COVID vaccine but is unable to recall which 1 acute on chronic respiratory failure with hypoxia secondary to acute COPD exacerbation. Oxygen saturation was noted to be in the mid 80s in the emergency department. She was admitted for further management of acute COPD exacerbation. She was started on scheduled and as needed breathing treatments as well as IV systemic steroids. She had no change in her cough or any phlegm production therefore was not treated with antibiotics. Chest x-ray showed no evidence of pneumonia. COVID test was negative. Her breathing improved gradually over the past 48 hours. She has remained afebrile. She is currently saturating in the mid 90s on her home 4 L of oxygen. She is encouraged to stop smoking entirely. She wi ll be discharged home to complete prednisone taper and is encouraged to follow- up with her primary care physician to ensure resolution of her symptoms. Time Spent with Patient Time attestation: Total time spent providing and/or coordinating discharge services: Discharge coordination time: Greater than 30 minutes Quality: Safe Use of Opioids Does Pt have an Active Cancer Diagnosis on the Problem List?: No Quality: Stroke Does the patient have a stroke diagnosis?: No Physical Exam Vital Signs: Vital Signs: Last Vital Signs Temp 97.8 F 12/15/21 07:43 Pulse 96 12/15/21 07:43 Resp 20 12/15/21 07:43 BP 129/84 12/15/21 07:43 Pulse Ox 95 12/15/21 07:43 O2 Del Method 12/15/21 07:43 O2 Flow Rate 4 12/15/21 07:43 Oxygen Flow Rate 4 12/13/21 16:04 BMI result Body Mass Index 36.4 Const: General: cooperative, comfortable, no acute distress, alert and awake Nutritional Appearance: overweight Orientation/consciousness: patient oriented x3 Chest: Other: reproducible chest pain left anterior chest wall Resp: Other: minimal left base crackles Effort & Inspection: normal respiratory effort and able to speak in complete sentences Cardio: Rate: regular rate Heart sounds: S1 normal heart sound present and S2 normal heart sound present GI: Inspection: No distended Palpation (GI): Soft to palpation and nontender Neuro: General: patient oriented x3 and CN's II-XI intact bilaterally Extrem: General: Yes no pedal edema DS: Data Data Completed and Pending Completed studies during hospitalization [Text1]: Procedures Assistance with Respiratory Ventilation, Less than 24 Consecutive Hours, Continuous Positive Airway Pressure (03/30/21) Labs on day of discharge: Laboratory Results - last 24 hr 12/14/21 12/14/21 12/14/21 11:03 15:33 20:34 Sodium Potassium Chloride Carbon Dioxide Anion Gap BUN Creatinine Estim Creat Clear Calc Estimated GFR POC Glucose 179 H 157 H 145 H Random Glucose Calcium Magnesium 12/15/21 12/15/21 06:19 07:42 Sodium 142 Potassium 3.8 Chloride 102 Carbon Dioxide 29 Anion Gap 15 BUN 22 H D Creatinine 0.91 Estim Creat Clear Calc 68.7 Estimated GFR > 60 POC Glucose 126 H Random Glucose 117 H Calcium 9.1 Magnesium 2.1 Preliminary micro results at discharge 12/13/21 19:27 Blood Culture - Preliminary Blood - Venous No growth after 24 hours. 12/13/21 19:13 Blood Culture - Preliminary Blood - Venous No growth after 24 hours. Discharge Plan Discharge Patient Disposition: Home, Self-Care Discharge Diagnosis: Acute COPD exacerbation Referrals: Analisa Carr MD [Primary Care Provider] - 1 Week Discharge Medications: New prednisone 10 mg tablet See Taper PO DAILY Qty: 27 0RF Taper: Prednisone 40 mg daily for 3 Days and 0 Hour 30 mg daily for 3 Days and 0 Hour 20 mg daily for 2 Days and 0 Hour 10 mg daily for 2 Days and 0 Hour Continued sertraline 100 mg tablet 200 mg PO DAILY 90 Days Qty: 180 1RF quetiapine 50 mg tablet 50 mg PO BID 90 Days Qty: 180 1RF isosorbide mononitrate 30 mg tablet extended release 24 hr 30 mg PO DAILY 90 Days Qty: 90 3RF Protocol: Hold for SBP< HOLD for SBP < : 90 furosemide 40 mg tablet 40 mg PO DAILY Qty: 30 3RF montelukast 10 mg tablet 10 mg PO BEDTIME Qty: 30 11RF Spiriva with HandiHaler 18 mcg capsule, w/inhalation device 1 cap inhalation DAILY 30 Days Qty: 30 5RF meclizine 25 mg tablet 25 mg PO TID PRN (Reason: dizziness) 30 Days Qty: 90 0RF trazodone 50 mg tablet 50 - 100 mg PO BEDTIME PRN (Reason: Sleep) folic acid 1 mg Tablet 1 mg PO DAILY Qty: 90 4RF Nicotrol 10 mg cartridge 1 inh inhalation Q2H PRN (Reason: Smoking Cessation) carvedilol 3.125 mg Tablet 3.125 mg PO BID Qty: 60 0RF Protocol: Hold for SBP/HR < HOLD for SBP < : 90 HOLD for HR < : 60 amlodipine 10 mg Tablet 10 mg PO DAILY Qty: 30 0RF Protocol: Hold for SBP< HOLD for SBP < : 90 losartan 50 mg tablet 100 mg PO DAILY Qty: 60 0RF Protocol: Hold for SBP< HOLD for SBP < : 90 fluticasone furoate-vilanterol 100-25 mcg/dose blister with device 1 puff PO DAILY Discontinued prednisone 5 mg tablet 1 tab PO DAILY Discharge Orders: Discharge Order (Routine); Ordered 12/15/21 Ordered By: Carola Amezquita Activity on Discharge: As tolerated Stand Alone Forms: Patient Portal Discharge page Care Plan Goals: see below Health Concerns: acute on chronic respiratory failure with hypoxia secondary to acute COPD exacerbation Plan of Treatment: complete prednisone taper as prescribed and then resume baseline dose of prednisone call to schedule follow-up with PCP Advised to stop smoking entirely Assessment: see discharge summary Discharge Date/Time: 12/15/21 12:20
[2021-12-15 11:02] VITALS: BP 150/95; PULSE 94; RESP 18; TEMP 36.4; O2SAT 97
[2021-12-15 11:32] LABS: Glucose, Whole Blood 196 mg/dL (60-115)
--- NOTE | 2021-12-15 12:20 | MHC.CM.PN ---
PT LIVES ALONE AND HAS DAILY [facility] TO ASSIST WITH ADLS/HOUSEKEEPING PT HAS HOME OXYGEN, CANNOT NAME COMPANY HCP AND PCP ON FILE PCP: KENJI PETERSON PT DISCHARGED HOME TODAY WITH RESUMPTION OF HER [facility] BLS TRANSPORT ARRANGED
== END 2021-12-15 12:20 | disposition home or self-care (01) | DRG 140 ==
LOC: HO.ED 17:51 → HO.EDOVER 18:08 → HO.IMC 21:55
PROVIDERS: Internal Medicine; Physician Assistant; Admitting Provider Physician Assistant Medical; Emergency Provider Emergency Medicine Emergency Medical Services; PCP Internal Medicine; Visit Provider Physician Assistant Medical
DX: J44.1 Chronic obstructive pulmonary disease with (acute) exacerbation (principal); J96.21 Acute and chronic respiratory failure with hypoxia; I42.8 Other cardiomyopathies; I50.22 Chronic systolic (congestive) heart failure; I11.0 Hypertensive heart disease with heart failure; E78.5 Hyperlipidemia, unspecified; G47.33 Obstructive sleep apnea (adult) (pediatric); D64.9 Anemia, unspecified; E87.6 Hypokalemia; Z99.81 Dependence on supplemental oxygen; F17.210 Nicotine dependence, cigarettes, uncomplicated; Z71.6 Tobacco abuse counseling; Z20.822 Contact with and (suspected) exposure to COVID-19; Z91.19 Patient's noncompliance with other medical treatment and regimen; Z28.311 Partially vaccinated for COVID-19; Z79.899 Other long term (current) drug therapy
CPT/HCPCS: 36415; 71045; 80048; 80053; 82803; 82947; 83605; 83735; 83880; 84484; 85025; 85027; 85610; 85730; 87040; 87205; 87502; 87635; 93005; 94640; 96365; 96375; 99219; 99285; J1650; J1956; J2920; J2930; J3475

== ENCOUNTER 2022-02-23 11:10 | Inpatient (IN) | payer OTHER, SELFPAY ==
[2022-02-23] VITALS (15 sets, daily range): BP systolic 103–171; BP diastolic 65–96; PULSE 94–133; RESP 14–22; TEMP 36.2–37.2; O2SAT 82–109; BMI 32.9
--- NOTE | ~2022-02-23 | US_ITS ---
EXAMINATION: US VENOUS ULTRASOUND WITH DOPPLER LOWER EXTREMITY, BILATERAL CLINICAL INFORMATION: Bilateral calf tenderness COMPARISON: None TECHNIQUE: Ultrasound of the deep veins is performed from the hip to the calf with compression sonography and color and pulse Doppler assessment. Spectral analysis with color-flow imaging is performed. FINDINGS: RIGHT: There is normal venous compression and respiratory variation and augmented flow. The visualized common femoral vein, superficial femoral vein, profunda femoral vein, popliteal vein, and the trifurcation region shows no evidence of deep venous thrombosis. There is no significant popliteal fossa cyst. LEFT: There is normal venous compression and respiratory variation and augmented flow. The visualized common femoral vein, superficial femoral vein, profunda femoral vein, popliteal vein, and the trifurcation region shows no evidence of deep venous thrombosis. There is no significant popliteal fossa cyst. If the patient's symptoms persist, followup ultrasound in 5 days 7 days might be of value to exclude proximal propagation from a non-visualized calf vein. US/US venous duplex LE BI IMPRESSION: No DVT demonstrated in the right and left lower extremity.
--- NOTE | ~2022-02-23 | XR_ITS ---
EXAMINATION: XR CHEST CLINICAL INFORMATION: Shortness of breath COMPARISON: December 13, 2021 TECHNIQUE: AP portable view of the chest was obtained. FINDINGS: The cardiopericardial silhouette is enlarged. No evidence of airspace edema. There is a region of increased density at the right lung base. No pneumothorax or significant pleural effusion. There appears to be some atelectatic change at the left base. XR/XR chest 1V IMPRESSION: Cardiomegaly without pulmonary edema. Focus of density right lower lobe which may relate to atelectasis or pneumonitis.
--- NOTE | 2022-02-23 11:17 | ED_ITS ---
HPI - SOB/Dyspnea General Chief Complaint: Dyspnea Stated Complaint: SOB 90% RA Source: patient and EMS Mode of arrival: EMS History of Present Illness HPI Narrative: 61-year-old female with a past medical history of COPD baseline 3-4 L NC, CHF, diabetes, HTN, HLD, KELLIE, pulmonary hypertension, presenting to the ED via EMS complaining of increasing SOB a generalized weakness x1 week. Per EMS patient was found satting 96% on 6L NC. Reports mild substernal chest discomfort. Denies cough, abdominal pain, nausea/vomiting, pedal edema, recent travel, sick contacts. MD elicited complaint: shortness of breath Pertinent past history: COPD Related Data Home Medications Medication Instructions Recorded Confirmed trazodone 50 mg tablet 50 - 100 mg PO BEDTIME PRN Sleep 03/08/20 12/13/21 nicotine 10 mg inhalation 1 inh inhalation Q2H PRN Smoking 03/30/21 12/13/21 cartridge (Nicotrol) Cessation fluticasone furoate 100 1 puff PO DAILY 12/13/21 12/13/21 mcg-vilanterol 25 mcg/dose inhalation powder Previous Rx's Medication Instructions Recorded quetiapine 50 mg tablet 50 mg PO BID 90 days #180 tabs 12/18/20 sertraline 100 mg tablet 200 mg PO DAILY 90 days #180 tabs 12/18/20 isosorbide mononitrate 30 mg 30 mg PO DAILY 90 days #90 tabs 08/15/21 tablet,extended release 24 hr folic acid 1 mg tablet 1 mg PO DAILY #90 tabs 09/01/21 amlodipine 10 mg tablet 10 mg PO DAILY #30 tabs 10/13/21 furosemide 40 mg tablet 40 mg PO DAILY #30 tabs 10/21/21 montelukast 10 mg tablet 10 mg PO BEDTIME #30 tabs 11/01/21 tiotropium bromide 18 mcg capsule 1 cap inhalation DAILY 30 days #30 11/01/21 with inhalation device (Spiriva inhalations with HandiHaler) meclizine 25 mg tablet 25 mg PO TID PRN dizziness 30 days 12/07/21 #90 tabs prednisone 10 mg tablet See Taper PO DAILY #27 tabs 12/15/21 losartan 50 mg tablet 100 mg PO DAILY #60 tabs 01/17/22 carvedilol 12.5 mg tablet 12.5 mg PO BID 90 days #180 tabs 01/29/22 Allergies Allergy/AdvReac Type Severity Reaction Status Date / Time nicotine [Nicotine] Allergy Mild ITCHING Verified 10/10/21 13:42 WITH THE PATCHES topiramate Allergy Mild inadequealte Verified 10/10/21 13:42 response Review of Systems Review of Systems: Constitutional: No Fever, No Chills, No Fatigue, No Malaise ENT/Mouth: No Ear Pain, No Nasal Congestion, No sore throat, No Rhinorrhea, No Swallowing Difficulty Eyes: No Eye Pain, No Swelling, No Redness, No Vision Changes Cardiovascular: No Chest Pain, + SOB, + Dyspnea on Exertion, + Orthopnea, No Edema, No Palpitations Respiratory: No Cough, No Sputum, + Wheezing, No Smoke Exposure, + Dyspnea Gastrointestinal: No Nausea, No Vomiting, No Diarrhea, No Constipation, No Abdominal pain Genitourinary: No Dysuria, No Urinary Frequency, No Hematuria, No Urinary Flow Changes, No Hesitancy Musculoskeletal: No joint pain, No Myalgias, No Joint Swelling Skin: No Skin Lesions, No rash Neuro: + Weakness, No Numbness, No Loss of Consciousness, No Dizziness, No Headache Yes all other systems are reviewed and are negative Constitutional: Constitutional: Reports as per [facility] Past Medical History Attestation statement: The following information was validated with the patient. Medical History Anxiety Chronic respiratory failure Depression Diabetes Essential hypertension HFrEF (heart failure with reduced ejection fraction) HLD (hyperlipidemia) HTN (hypertension) Non-rheumatic mitral regurgitation Nonischemic cardiomyopathy KELLIE (obstructive sleep apnea) Osteoporosis Pulmonary hypertension Severe chronic obstructive pulmonary disease Supraventricular tachycardia Tobacco abuse Surgical History Bilateral ankle fractures History of total abdominal hysterectomy Family History Family History Father No problems noted. 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 home services: Yes ([facility]) Alcohol intake: never Patient Tobacco Use Status: Current everyday Tobacco user Tobacco use type: Cigarette Cigarette Packs Per Day: 1 Cigarettes Per Day: 5 Years Smoked: 50 +/- Second Hand Smoke Exposure: No Use of substances other than those prescribed or required for medical reasons: No Advance Directives: Yes Advance Directives on File: Yes Advance Directives Date on File: 04/30/20 service: No Current occupational status: unemployed, retired and disabled Physical Exam Vital Signs: Vital Signs: Last Vital Signs Temp 97.5 F 02/23/22 16:44 Pulse 117 H 02/23/22 16:39 Resp 22 H 02/23/22 16:39 BP 153/83 H 02/23/22 16:39 Pulse Ox 96 02/23/22 16:39 O2 Del Method 02/23/22 16:39 O2 Flow Rate 13 02/23/22 16:39 FiO2 50 02/23/22 14:02 Oxygen Flow Rate 4.5 02/23/22 11:44 BMI result Body Mass Index 32.9 Const: General: cooperative, healthy appearing and no acute distress Orientation/consciousness: patient oriented x3 Limitations: no limitations HEENT: Head: Yes normal to inspection and Yes atraumatic Ears: hearing grossly normal bilaterally General nose exam: Normal external nose present Face and sinus: Yes normal facial exam Eyes: General: appearance normal, both eyes and all related structures EOM: EOMs intact bilaterally Neck: Neck: Yes normal visual inspection and Yes no meningeal signs Resp: Effort & Inspection: normal respiratory effort, no respiratory distress and tachypneic Auscultation: wheezes expiratory wheezes, lower bilaterally and posterior and diminished lung sounds diffuse Cardio: Rate: regular rate Heart sounds: S1 normal heart sound present and S2 normal heart sound present GI: Inspection: Yes normal to inspection Palpation (GI): Soft to palpation, nontender, no guarding and not rigid : General: Yes no CVA tenderness Back/Spine/Pelvis: Back: no CVA tenderness Skin: Rashes: no rashes Wounds: no wounds Neuro: General: patient oriented x3, tone normal and no meningeal signs Gait exam (Neuro): Normal gait present Extrem: General: Yes normal to inspection, Yes no pedal edema and Yes no calf tenderness Course Course Course Narrative: -1208--on re-evaluation after DuoNeb a patient with increased air movement, still diminished, bibasilar crackles noted > additional hour long DuoNeb ordered -1313--no leukocytosis. H&H stable. Potassium 3.2 > 40 mEq p.o. given. VBH pH 7.59. Labs otherwise reassuring. -COVID-19 negative -1338-- patient unable to tolerate the potassium packets, change to pills. With any removal of O2 patient desats quickly, lowest 73% > currently satting 88-89% on 10L OxyMask. Will on place BiPAP secondary to chronic lung disease, not severe sepsis. -1406--troponin elevated to 17.6 (elevated priors) > will obtain 3 hour repeat. BNP 269, chronically elevated 1437--XR chest 1V IMPRESSION: Cardiomegaly without pulmonary edema. ? Focus of density right lower lobe which may relate to atelectasis or pneumonitis. >> IV Rocephin added -1650--patient taken off of BiPAP, refusing OxyMask, on 9L nasal cannula satting 99% > decreased to 5L satting 93% MDM - SOB/Dyspnea MDM Narrative Medical decision making narrative: 61-year-old female with a past medical history of COPD baseline 3-4 L NC, CHF, diabetes, HTN, HLD, KELLIE, pulmonary hypertension, presenting to the ED via EMS complaining of increasing SOB a generalized weakness x1 week. On exam ED arrival satting 88% on baseline 3L NC, increased to 92% on 5L NC, tachycardic likely from albuterol [employer], lungs with decreased air movement throughout and bibasilar expiratory wheeze. No appreciable pedal edema. Abdomen soft/nontender. Concern for COPD exacerbation vs CHF vs pneumonia or viral illness. Low suspicion for severe sepsis at this time. Unlikely PE. Rule out ACS Plan: EKG, labs, CXR, DuoNebs, IV Solu-Medrol, IV magnesium Differential Diagnosis Differential diagnosis: Likely congestive heart failure and pneumonia Medical Records Attestation: I reviewed the patient's medical records. Lab Data Attestation: I reviewed the patient's lab results. Result diagrams: 02/23/22 12:15 02/23/22 12:15 Labs: Lab Results 02/23/22 02/23/22 02/23/22 Range/Units 12:15 12:15 12:15 WBC 8.4 (4.8-10.8) X10*3/uL RBC 4.54 (4.20-5.50) X10*6/uL Hgb 10.7 L (12.0-16.0) g/dl Hct 36.5 L (37.0-47.0) % MCV 80.4 (80.0-98.0) fL MCH 23.6 L (27.0-33.0) pg MCHC 29.3 L (31.0-35.0) g/dl RDW 15.8 (11.0-16.0) % Plt Count 214 (160-400) X10*3/uL MPV 10.6 (9.4-12.3) fL Immature Gran % (Auto) 0.2 (0.0-0.4) % Neut % (Auto) 61.6 (45-73) % Lymph % (Auto) 31.7 (20-40) % Snyder % (Auto) 5.5 (2-11) % Eos % (Auto) 0.8 (0-4) % Baso % (Auto) 0.2 (0-2) % Lymph # (Auto) 2.7 (1.2-4.9) X10*3/uL Snyder # (Auto) 0.5 (0.1-1.2) X10*3/uL Eos # (Auto) 0.1 (0.0-0.4) X10*3/uL Baso # (Auto) 0.0 (0.0-0.2) X10*3/uL Abs Immat Gran (auto) 0.02 (0.00-0.03) X10*3/uL Absolute Neuts (auto) 5.2 (2.0-8.3) x10*3/uL Absolute Nucleated RBC 0.000 (0.0-0.012) X10*3/uL Nucleated RBC % (auto) 0.0 (0.0-0.2) /100WBC PT 11.1 (10.0-13.1) SEC INR 1.0 (0.9-1.1) VBG pH (7.32-7.43) VBG pCO2 mmHg VBG pO2 mmHg VBG HCO3 (22-26) mmol/L VBG O2 Saturation % VBG Base Excess mmol/L Sodium 143 (135-145) mmol/L Potassium 3.2 L (3.3-5.1) mmol/L Chloride 102 (96-108) mmol/L Carbon Dioxide 25 (22-29) mmol/L Anion Gap 19 (12-20) BUN 6 L D (9-16) mg/dL Creatinine 0.78 (0.5-1.4) mg/dL Estim Creat Clear Calc 64.3 Estimated GFR > 60 Random Glucose 142 H (60-115) mg/dL Lactic Acid (0.5-2.0) mmol/L Calcium 9.0 (8.4-10.2) mg/dL Magnesium 2.3 (1.6-2.6) mg/dL Total Bilirubin 0.4 (0.0-1.0) mg/dL Direct Bilirubin 0.2 (0.0-0.5) mg/dL AST 19 D (5-31) U/L ALT 10 (0-31) U/L Alkaline Phosphatase 149 H (39-117) U/L Troponin I High Sens (<3.5-17.0) ng/L B-Natriuretic Peptide (<100) pg/mL Total Protein 8.2 H (6.5-8.0) g/dL Albumin 4.3 (3.5-5.0) g/dL COVID-19 (ANEL) (Negative) COVID-19 Clin Com Influenza Type A (ELGIN) (Negative) Influenza Type B (ELGIN) (Negative) Influenza A & B Note 02/23/22 02/23/22 02/23/22 Range/Units 12:15 12:15 12:17 WBC (4.8-10.8) X10*3/uL RBC (4.20-5.50) X10*6/uL Hgb (12.0-16.0) g/dl Hct (37.0-47.0) % MCV (80.0-98.0) fL MCH (27.0-33.0) pg MCHC (31.0-35.0) g/dl RDW (11.0-16.0) % Plt Count (160-400) X10*3/uL MPV (9.4-12.3) fL Immature Gran % (Auto) (0.0-0.4) % Neut % (Auto) (45-73) % Lymph % (Auto) (20-40) % Snyder % (Auto) (2-11) % Eos % (Auto) (0-4) % Baso % (Auto) (0-2) % Lymph # (Auto) (1.2-4.9) X10*3/uL Snyder # (Auto) (0.1-1.2) X10*3/uL Eos # (Auto) (0.0-0.4) X10*3/uL Baso # (Auto) (0.0-0.2) X10*3/uL Abs Immat Gran (auto) (0.00-0.03) X10*3/uL Absolute Neuts (auto) (2.0-8.3) x10*3/uL Absolute Nucleated RBC (0.0-0.012) X10*3/uL Nucleated RBC % (auto) (0.0-0.2) /100WBC PT (10.0-13.1) SEC INR (0.9-1.1) VBG pH (7.32-7.43) VBG pCO2 mmHg VBG pO2 mmHg VBG HCO3 (22-26) mmol/L VBG O2 Saturation % VBG Base Excess mmol/L Sodium (135-145) mmol/L Potassium (3.3-5.1) mmol/L Chloride (96-108) mmol/L Carbon Dioxide (22-29) mmol/L Anion Gap (12-20) BUN (9-16) mg/dL Creatinine (0.5-1.4) mg/dL Estim Creat Clear Calc Estimated GFR Random Glucose (60-115) mg/dL Lactic Acid 2.0 (0.5-2.0) mmol/L Calcium (8.4-10.2) mg/dL Magnesium (1.6-2.6) mg/dL Total Bilirubin (0.0-1.0) mg/dL Direct Bilirubin (0.0-0.5) mg/dL AST (5-31) U/L ALT (0-31) U/L Alkaline Phosphatase (39-117) U/L Troponin I High Sens 17.6 H (<3.5-17.0) ng/L B-Natriuretic Peptide 269 H (<100) pg/mL Total Protein (6.5-8.0) g/dL Albumin (3.5-5.0) g/dL COVID-19 (ANEL) (Negative) COVID-19 Clin Com Influenza Type A (ELGIN) Negative (Negative) Influenza Type B (ELGIN) Negative (Negative) Influenza A & B Note See Note 02/23/22 02/23/22 02/23/22 Range/Units 12:17 12:45 16:37 WBC (4.8-10.8) X10*3/uL RBC (4.20-5.50) X10*6/uL Hgb (12.0-16.0) g/dl Hct (37.0-47.0) % MCV (80.0-98.0) fL MCH (27.0-33.0) pg MCHC (31.0-35.0) g/dl RDW (11.0-16.0) % Plt Count (160-400) X10*3/uL MPV (9.4-12.3) fL Immature Gran % (Auto) (0.0-0.4) % Neut % (Auto) (45-73) % Lymph % (Auto) (20-40) % Snyder % (Auto) (2-11) % Eos % (Auto) (0-4) % Baso % (Auto) (0-2) % Lymph # (Auto) (1.2-4.9) X10*3/uL Snyder # (Auto) (0.1-1.2) X10*3/uL Eos # (Auto) (0.0-0.4) X10*3/uL Baso # (Auto) (0.0-0.2) X10*3/uL Abs Immat Gran (auto) (0.00-0.03) X10*3/uL Absolute Neuts (auto) (2.0-8.3) x10*3/uL Absolute Nucleated RBC (0.0-0.012) X10*3/uL Nucleated RBC % (auto) (0.0-0.2) /100WBC PT (10.0-13.1) SEC INR (0.9-1.1) VBG pH 7.59 H (7.32-7.43) VBG pCO2 28 mmHg VBG pO2 201 mmHg VBG HCO3 27 H (22-26) mmol/L VBG O2 Saturation 99.0 % VBG Base Excess 6.3 mmol/L Sodium (135-145) mmol/L Potassium (3.3-5.1) mmol/L Chloride (96-108) mmol/L Carbon Dioxide (22-29) mmol/L Anion Gap (12-20) BUN (9-16) mg/dL Creatinine (0.5-1.4) mg/dL Estim Creat Clear Calc Estimated GFR Random Glucose (60-115) mg/dL Lactic Acid (0.5-2.0) mmol/L Calcium (8.4-10.2) mg/dL Magnesium (1.6-2.6) mg/dL Total Bilirubin (0.0-1.0) mg/dL Direct Bilirubin (0.0-0.5) mg/dL AST (5-31) U/L ALT (0-31) U/L Alkaline Phosphatase (39-117) U/L Troponin I High Sens 12.1 (<3.5-17.0) ng/L B-Natriuretic Peptide (<100) pg/mL Total Protein (6.5-8.0) g/dL Albumin (3.5-5.0) g/dL COVID-19 (ANEL) Negative (Negative) COVID-19 Clin Com See Note Influenza Type A (ELGIN) (Negative) Influenza Type B (ELGIN) (Negative) Influenza A & B Note ECG Data Attestation: I personally reviewed and interpreted this ECG as follows: ECG interpretation date: 02/23/22 ECG interpretation time: 11:26 Interpretation: EKG sinus tachycardia rate of 107. Pr interval 126. QT prolonged. QTC 536 Critical Care Time Critical Care Time Critical Care Time: Yes Total Critical Care Time: 60 Attestation: I have personally provided critical care time exclusive of time spent on separa tely billable procedures. Time includes review of lab data, radiology results, discussion with consultants, and monitoring for potential decompensation. Intervention performed as documented. Discharge Plan Discharge Clinical Impression: COPD with acute exacerbation, Acute on chronic respiratory failure with hyp oxemia Patient Disposition: Admitted As Inpatient
--- NOTE | 2022-02-23 11:18 | ECG_ITS ---
Test Reason : SOB Blood Pressure : / mmHG Vent. Rate : 107 BPM Atrial Rate : 107 BPM P-R Int : 126 ms QRS Dur : 116 ms QT Int : 402 ms P-R-T Axes : 020 021 001 degrees QTc Int : 536 ms Sinus tachycardia Incomplete right bundle branch block Prolonged QT Abnormal ECG When compared with ECG of 13-DEC-2021 16:10, Incomplete right bundle branch block has replaced Right bundle branch block Heart rate has increased Referred By: Fabi Hunt Electronically Signed By:REGINALD DBOBS MD
[2022-02-23] MEDS: Albuterol/Iprat 2.5/0.5MG 3 ML AMPUL.NEB INHALE ×3 (11:28→19:33)
[2022-02-23] MEDS: Albuterol Sulfate 5 MG, Albuterol Sulfate (0.083%) 2.5 MG 7.5 MG INHALE ×2 (11:28→12:21)
[2022-02-23] MEDS: methylPREDNISolone Sod Succ 125 MG/2 ML VIAL IVPUSH (11:56)
[2022-02-23] MEDS: Magnesium Sulfate/H2O 2 GM/50 ML PIGGYBACK IV (12:04)
--- NOTE | 2022-02-23 12:12 | PC.NURSE ---
pt. SOB. desat to 70s when changing from nc to oxymask. increased O2 to 7L satting at 90s. Denies pain or any other symptoms. solumedrol and dwight given. appears comfortable.
[2022-02-23 12:22] LABS: MANUAL DIFF FLAG NO
[2022-02-23 12:24] LABS: Basophils Percent Auto 0.2 % (0-2); Eosinophils Absolute Auto 0.1 X10*3/uL (0.0-0.4); Eosinophils Percent Auto 0.8 % (0-4); Hematocrit 36.5 % (37.0-47.0); Hemoglobin 10.7 g/dl (12.0-16.0); Imm Gran Abs Auto 0.02 X10*3/uL (0.00-0.03); Imm Gran Pct Auto 0.2 % (0.0-0.4); Lymphocytes Absolute Auto 2.7 X10*3/uL (1.2-4.9); Lymphocytes Percent Auto 31.7 % (20-40); Mean Corpuscular HGB Conc 29.3 g/dl (31.0-35.0); Mean Corpuscular Hemoglobin 23.6 pg (27.0-33.0); Mean Corpuscular Volume 80.4 fL (80.0-98.0); Mean Platelet Volume 10.6 fL (9.4-12.3); Monocytes Absolute Auto 0.5 X10*3/uL (0.1-1.2); Monocytes Percent Auto 5.5 % (2-11); Neutrophils Absolute Auto 5.2 x10*3/uL (2.0-8.3); Neutrophils Percent Auto 61.6 % (45-73); Platelet Count 214 X10*3/uL (160-400); Red Blood Count 4.54 X10*6/uL (4.20-5.50); Red Cell Distribution Width 15.8 % (11.0-16.0); White Blood Count 8.4 X10*3/uL (4.8-10.8)
[2022-02-23 12:31] LABS: Prothrombin Time 11.1 SEC (10.0-13.1)
[2022-02-23 12:42] LABS: Alanine Aminotransferase 10 U/L (0-31); Albumin Level 4.3 g/dL (3.5-5.0); Alkaline Phosphatase 149 U/L (39-117); Anion Gap 19 (12-20); Aspartate Amino Transferase 19 U/L (5-31); Bilirubin Direct 0.2 mg/dL (0.0-0.5); Bilirubin Total 0.4 mg/dL (0.0-1.0); Blood Urea Nitrogen 6 mg/dL (9-16); Carbon Dioxide 25 mmol/L (22-29); Chloride 102 mmol/L (96-108); Creatinine Clr Calc Pharmacy 64.3; Estimated Glomerular Filt Rate > 60; Glucose Random 142 mg/dL (60-115); Magnesium 2.3 mg/dL (1.6-2.6); Potassium 3.2 mmol/L (3.3-5.1); Sodium 143 mmol/L (135-145); Total Protein 8.2 g/dL (6.5-8.0)
[2022-02-23 12:49] LABS: COVID-19 Test Negative (Negative); IDNOW Serial# 16C4AD1C; Influenza A Negative (Negative); Influenza B2 Negative (Negative)
[2022-02-23 12:55] LABS: VBG Base Excess 6.3 mmol/L; VBG HCO3 27 mmol/L (22-26); VBG pCO2 28 mmHg; VBG pO2 201 mmHg
[2022-02-23 12:59] LABS: Venous Blood Gas Refer to POC result
[2022-02-23 13:01] LABS: VBG pH 7.59 (7.32-7.43)
[2022-02-23] MEDS: Potassium Chloride Packet 20 MEQ PACKET 40 MEQ PO (13:22)
[2022-02-23] MEDS: Azithromycin 500 MG in 0.9 % Sodium Chloride 250 ML 125 MG IV (13:22)
[2022-02-23 13:29] LABS: Troponin-I High Sensitivity 17.6 ng/L (<3.5-17.0)
--- NOTE | 2022-02-23 13:32 | PC.NURSE ---
pt sat.at 88 on nc. changed it to oxymask now at 91. Gave her potassium powder in water and pt states she doesn't like it. she agreed to take it, tried it and spit it out. will ask provider for a pill form
[2022-02-23 13:47] LABS: B Type Natriuretic Peptide 269 pg/mL (<100)
[2022-02-23] MEDS: Potassium Chloride ER 20 MEQ TAB.ER.PRT 40 MEQ PO (13:58)
--- NOTE | 2022-02-23 13:59 | PC.NURSE ---
Pt appears comfortable however desats quickly as low as 70s without 02 (when switching oxygen modes). Sat 88% on 9lpm via, placed on Bipap settings 10/5/50%, sat 92%, appears comfortable. KCL given as ordered however pt did not tolerate liquid, tablets ordered instead and pt only agreeable to take 1 tab. ABX infusing as ordered
--- NOTE | 2022-02-23 15:52 | PC.NURSE ---
Iv pulling out of pt, JARROD Dunlap aware, she is in the room currently attempting to place an ultrasound guided IV. Antibiotic ordered for 1425 will be delayed until IV access is established
--- NOTE | 2022-02-23 16:32 | PC.NURSE ---
JARROD Cota was able to get a 22g in the left ac, Azithromycin is now finishing infusing through that, will begin next antibiotic shortly
[2022-02-23 17:08] LABS: Troponin-I High Sensitivity 12.1 ng/L (<3.5-17.0)
[2022-02-23] MEDS: cefTRIAXone sodium 1 GM in 0.9 % Sodium Chloride 50 ML IV (17:11)
--- NOTE | 2022-02-23 18:08 | PM.IMHP ---
History of Present Illness Date of Service: 02/23/22 Attending physician on admission: Jacobo Villarreal Chief Complaint: sob 61-year-old female with history of hypertension, okv-[id number]-ejevnkwec type 2 diabetes, hyperlipidemia, nonrheumatic mitral regurgitation, nonischemic cardiomyopathy, heart failure with reduced ejection fraction, depression, KELLIE noncompliant with CPAP, osteoporosis, pulmonary hypertension, PSVT, 2-3 cigarettes per day smoker, severe COPD with chronic hypoxemic respiratory failure on 3-4 L O2 at home presented to the ED this morning with about 2 weeks of worsening dyspnea, anorexia, and weakness. She reports the dyspnea is persistent but worse when talking. She states she has been requiring the use of 6 L oxygen and was found at 96% on 6 L by EMS. She is also complaining of mild substernal chest pain. She denies any fevers, chills, cough, nausea, vomiting, abdominal pain, lightheadedness, palpitations. She does endorse chronic constipation. she is also reporting pain in the lower legs bilaterally that has been ongoing for many months. Denies any sick contacts or recent travel. In the ED, chest x-ray showed cardiomegaly without pulmonary edema as well as focus of density in the right lower lobe relating to possible atelectasis versus Pneumonitis. VBG with pH of 7.59 bicarb 27. Hematology studies unremarkable except for chronic stable normocytic anemia. Renal function stable, potassium 3.2, electrolytes otherwise normal. Initial troponin 17.6, repeat 12.1. BNP baseline at 269. Negative for COVID-19 and Influenza. Due to ongoing increased work of breathing, tachypnea, and hypoxia on 10 L O2, she was placed on BiPAP with FiO2 of 50 for 2 hours and was successfully weaned, now on 5 L O2 via nasal cannula with oximetry 92%. Patient to be admitted for COPD exacerbation with acute on chronic hypoxemic respiratory failure. Review of Systems Review of Systems: General: No fevers, malaise, unintentional weight loss HEENT: No rhinorrhea, nasal congestion, sore throat Cardiovascular: No chest pain, palpitations, or leg edema Respiratory: + shortness of breath, +wheezing. No cough GI: +anorexia. No abdominal pain, nausea, vomiting, diarrhea, constipation, melena, hematochezia : No dysuria, hematuria, increased urinary frequency MSK: + Bilateral calf pain Neuro: No headaches, weakness, paresthesias Skin: No rashes or lesions [facility] Medical History (Updated 02/23/22 @ 18:38 by JARROD Fitzgerald) Anxiety Chronic respiratory failure Depression Diabetes Essential hypertension HFrEF (heart failure with reduced ejection fraction) HLD (hyperlipidemia) HTN (hypertension) Hypertensive emergency Non-rheumatic mitral regurgitation Nonischemic cardiomyopathy KELLIE (obstructive sleep apnea) Osteoporosis Pulmonary hypertension Severe chronic obstructive pulmonary disease Supraventricular tachycardia Tobacco abuse Family History Father No problems noted. 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 home services: Yes (OTORHINOLARYNGOLOGIST) Alcohol intake: never Patient Tobacco Use Status: Current everyday Tobacco user Tobacco use type: Cigarette Cigarette Packs Per Day: 1 Cigarettes Per Day: 5 Years Smoked: 50 +/- Second Hand Smoke Exposure: No Advance Directives Date on File: 04/30/20 service: No Current occupational status: unemployed, retired and disabled Meds Allergies Allergy/AdvReac Type Severity Reaction Status Date / Time nicotine [Nicotine] Allergy Mild ITCHING Verified 02/24/22 11:55 WITH THE PATCHES topiramate Allergy Mild inadequealte Verified 02/24/22 11:55 response Active Medications: Current Medications Acetaminophen (Acetaminophen 325 Mg Tablet) 650 mg PO Q6H PRN PRN Reason: Pain, Mild, fever Albuterol/Ipratropium (Albuterol/Iprat 2.5/0.5mg 3 Ml Ampul.Neb) 3 ml INHALE RQ4H WHILE AWAKE [place] Docusate Sodium (Docusate Sodium 100 Mg Capsule) 100 mg PO BID [facility] Enoxaparin Sodium (Enoxaparin Sodium 40 Mg/0.4 Ml Syringe) 40 mg SUBCUT Q24H [facility] Ondansetron HCl (Ondansetron Hcl 4 Mg/2 Ml Vial) 4 mg IVPUSH Q8H PRN PRN Reason: Nausea and Vomiting Pharmacy Consult (Consult Rx Perform Med Rec) 1 each MISCELLANE ONCE PRN PRN Reason: Consult order Sodium Chloride (0.9 % Sodium Chloride Flush 3 Ml Syringe) 3 ml IVFLUSH QSHIFT [facility] Home Medications Medication Instructions Recorded Confirmed Last Taken Type trazodone 50 mg tablet 50 - 100 mg PO BEDTIME PRN Sleep 03/08/20 02/23/22 03/29/21 History fluticasone furoate 100 1 puff PO DAILY 12/13/21 02/23/22 Unknown History mcg-vilanterol 25 mcg/dose inhalation powder prednisone 5 mg tablet 5 mg PO DAILY 02/23/22 02/23/22 Unknown History Physical Exam Vital Signs and Narrative: Vital Signs: Last Vital Signs Temp 97.5 F 02/23/22 16:44 Pulse 117 H 02/23/22 16:39 Resp 22 H 02/23/22 16:39 BP 153/83 H 02/23/22 16:39 Pulse Ox 96 02/23/22 16:39 O2 Del Method 02/23/22 16:39 O2 Flow Rate 13 02/23/22 16:39 FiO2 50 02/23/22 14:02 Oxygen Flow Rate 4.5 02/23/22 11:44 BMI result Body Mass Index 32.9 Constitutional - Awake and Alert, mild distress laying on side on 5L O2via NC Eyes - PERRLA, EOMI Cardiovascular - S1S2, RRR, No edema Respiratory - Scattered wheezes and coarse crackles bilaterally. Normal lung expansion, Normal respiratory effort, mild distress speaking in 3-4 word phrases with increased work of breathing and retracting Gastrointestinal - NT / ND; +BS; No rebound or guarding Extremities - bilateral calf tenderness, no swelling Skin - Warm/Dry Neurological - Alert & oriented x3, CN II-XII in tact, 5/5 strength BUE and 4/5 strenth BLE, sensation in tact Psychological - Appropriate affect Results Labs CBC and Chem 7: 02/23/22 12:15 02/24/22 09:17 Labs: Laboratory Results - last 24 hr 02/23/22 02/23/22 02/23/22 12:15 12:15 12:15 MCV 80.4 MCH 23.6 L MCHC 29.3 L RDW 15.8 Plt Count 214 MPV 10.6 Immature Gran % (Auto) 0.2 Neut % (Auto) 61.6 Lymph % (Auto) 31.7 Sherman % (Auto) 5.5 Eos % (Auto) 0.8 Baso % (Auto) 0.2 Lymph # (Auto) 2.7 Sherman # (Auto) 0.5 Eos # (Auto) 0.1 Baso # (Auto) 0.0 Abs Immat Gran (auto) 0.02 Absolute Neuts (auto) 5.2 Absolute Nucleated RBC 0.000 Nucleated RBC % (auto) 0.0 PT 11.1 INR 1.0 VBG pH VBG pCO2 VBG pO2 VBG HCO3 VBG O2 Saturation VBG Base Excess Anion Gap 19 Estim Creat Clear Calc 64.3 Estimated GFR > 60 Random Glucose 142 H Lactic Acid Calcium 9.0 Magnesium 2.3 Total Bilirubin 0.4 Direct Bilirubin 0.2 AST 19 D ALT 10 Alkaline Phosphatase 149 H Troponin I High Sens B-Natriuretic Peptide Total Protein 8.2 H Albumin 4.3 COVID-19 (ANEL) COVID-19 Clin Com Influenza Type A (ELGIN) Influenza Type B (ELGIN) Influenza A & B Note 02/23/22 02/23/22 02/23/22 12:15 12:15 12:17 MCV MCH MCHC RDW Plt Count MPV Immature Gran % (Auto) Neut % (Auto) Lymph % (Auto) Sherman % (Auto) Eos % (Auto) Baso % (Auto) Lymph # (Auto) Sherman # (Auto) Eos # (Auto) Baso # (Auto) Abs Immat Gran (auto) Absolute Neuts (auto) Absolute Nucleated RBC Nucleated RBC % (auto) PT INR VBG pH VBG pCO2 VBG pO2 VBG HCO3 VBG O2 Saturation VBG Base Excess Anion Gap Estim Creat Clear Calc Estimated GFR Random Glucose Lactic Acid 2.0 Calcium Magnesium Total Bilirubin Direct Bilirubin AST ALT Alkaline Phosphatase Troponin I High Sens 17.6 H B-Natriuretic Peptide 269 H Total Protein Albumin COVID-19 (ANEL) COVID-19 Clin Com Influenza Type A (ELGIN) Negative Influenza Type B (ELGIN) Negative Influenza A & B Note See Note 02/23/22 02/23/22 02/23/22 12:17 12:45 16:37 MCV MCH MCHC RDW Plt Count MPV Immature Gran % (Auto) Neut % (Auto) Lymph % (Auto) Sherman % (Auto) Eos % (Auto) Baso % (Auto) Lymph # (Auto) Sherman # (Auto) Eos # (Auto) Baso # (Auto) Abs Immat Gran (auto) Absolute Neuts (auto) Absolute Nucleated RBC Nucleated RBC % (auto) PT INR VBG pH 7.59 H VBG pCO2 28 VBG pO2 201 VBG HCO3 27 H VBG O2 Saturation 99.0 VBG Base Excess 6.3 Anion Gap Estim Creat Clear Calc Estimated GFR Random Glucose Lactic Acid Calcium Magnesium Total Bilirubin Direct Bilirubin AST ALT Alkaline Phosphatase Troponin I High Sens 12.1 B-Natriuretic Peptide Total Protein Albumin COVID-19 (ANEL) Negative COVID-19 Clin Com See Note Influenza Type A (ELGIN) Influenza Type B (ELGIN) Influenza A & B Note Imaging Radiologist's Impressions: Impressions Chest X-Ray 02/23/22 12:38 IMPRESSION: Cardiomegaly without pulmonary edema. Focus of density right lower lobe which may relate to atelectasis or pneumonitis. Assessment and Plan (1) COPD with acute exacerbation: Status: Acute (2) Acute on chronic respiratory failure with hypoxemia: Status: Acute (3) Right lower lobe pneumonitis: Status: Acute Plan 61-year-old female with history of hypertension, umi-olrkzmo-vqyjaiuje type 2 diabetes, hyperlipidemia, nonrheumatic mitral regurgitation, nonischemic cardiomyopathy, heart failure with reduced ejection fraction, depression, KELLIE noncompliant with CPAP, osteoporosis, pulmonary hypertension, PSVT, 2-3 cigarettes per day smoker, severe COPD with chronic hypoxemic respiratory failure on 3-4 L O2 at home admitted for acute COPD exacerbation with acute on chronic hypoxemic respiratory failure requiring rescue BiPAP with successful weaning. # Acute on chronic hypoxemic respiratory failure secondary to COPD exacerbation - worsening shortness of breath x2 weeks requiring increased and supplemental O2 to 6 L, increase from 3-4 L full mental O2 at baseline - received BiPAP with FiO2 50 for 2 hours in ED was successful weaning currently using 5 L O2 via nasal cannula - continue supplemental O2 to maintain oximetry 92%, titrate as tolerated - admit to telemetry with continuous oximetry as patient is at risk for pulmonary decompensation # acute COPD exacerbation- with chronic hypoxemic respiratory failure on 3-4 L supplemental O2 at baseline and chronic oral steroid use - negative for COVID-19 and influenza. Denies sick contacts - 60 mg IV Solu-Medrol b.i.d. - DuoNebs q.4h while awake - albuterol nebs q.2h p.r.n. - continue supplemental O2 to maintain oximetry 92%,as above titrate as tolerated - continue maintenance meds but hold Spiriva - CXR showing right lower lobe pneumonitis. Ceftriaxone and doxycycline ordered -Pt afebrile. No leukocytosis. tachycardia secondary to albuterol use, no sepsis # acute pneumonitis right lower lobe - as above # bilateral calf tenderness /weakness bilateral lower extremities-chronic - venous duplex to rule out DVT - PT consult # hypokalemia- likely secondary to albuterol usage - repleted with 60 mEq KCL - recheck BMP a.m. # noninsulin- dependent type 2 diabetes - POC glucose - diabetic diet - hold p.o. meds - Humalog SSI # hypertension - continue amlodipine, losartan, carvedilol, furosemide # NCIM/HRrEF -EF 30% -Euvolemic appearing -Continue carvedilol and furosemide # HLD - not on statin # depression - continue Zoloft, Seroquel, and trazodone # pulmonary hypertension - continue home meds # KELLIE - refuses CPAP # nicotine dependence - refuses NRT - cessation counseling offered DVT prophylaxis-Lovenox DNR/DNI Patient requires inpatient stay of at least 2 midnights due to acute on chronic hypoxemic respiratory failure requiring the use of BiPAP with successful weaning but at high risk for pulmonary decompensation secondary to acute COPD exacerbation requiring IV steroids. Quality Stroke Does the patient have a stroke diagnosis?: No VTE Prior VTE?: No VTE Risk Level:: Medical - moderate - high VTE Device Contraindication: Treatment Not Indicated VTE Drug Contraindication: N/A - Med Ordered
--- NOTE | 2022-02-23 18:18 | PHA.MEDREC ---
Pharmacy Consult ? Medication Reconciliation Pharmacy has completed the medication reconciliation. Spoke with patient and she does not know any of her medications. She does not have anyone at home that helps me with her medications. Carvedilol, amlodipine and losartan have not been filled since october.
[2022-02-23] MEDS: Doxycycline Hyclate 100 MG in 0.9 % Sodium Chloride 250 ML 166.67 MG IV (19:04)
[2022-02-23] MEDS: Montelukast Sodium 10 MG TABLET PO (20:01)
[2022-02-23] MEDS: carvediloL 12.5 MG TABLET PO (20:01)
[2022-02-23] MEDS: QUEtiapine Fumarate 50 MG TABLET PO (20:01)
[2022-02-23] MEDS: Docusate Sodium 100 MG CAPSULE PO (20:01)
[2022-02-23] MEDS: Enoxaparin Sodium 40 MG/0.4 ML SYRINGE SUBCUT (20:04)
[2022-02-23] MEDS: methylPREDNISolone Sod Succ 125 MG/2 ML VIAL 60 MG IVPUSH (22:06)
[2022-02-24] VITALS (14 sets, daily range): BP systolic 107–175; BP diastolic 74–102; PULSE 75–107; RESP 16–24; TEMP 36.1–37.3; O2SAT 86–100; BMI 33.2
--- NOTE | 2022-02-24 05:06 | PC.NURSE ---
First attempt to call report at 5:07am, RN will call back.
--- NOTE | 2022-02-24 05:20 | PC.NURSE ---
Recieved care froM CARRILLO Ware at 3:30am . Pt sleeping. no sign of respiratory distress Report called to recieving unit. pt being transferred by [facility].
--- NOTE | 2022-02-24 05:27 | PM.EVENT ---
Event Note Date of Service: 02/24/22 Event Note: Pt states that she does not want to wear the bipap no matter how low her o2 gets. she understands that she may need higher o2 requirements that may not resolve with high flow and despite that she does not want to have the BIpap. currently stable on non-rebreather 13 L satting 88% feeling comfortable
[2022-02-24] MEDS: Doxycycline Hyclate 100 MG in 0.9 % Sodium Chloride 250 ML 166.67 MG IV ×2 (06:28→20:06)
[2022-02-24] MEDS: Albuterol/Iprat 2.5/0.5MG 3 ML AMPUL.NEB INHALE ×4 (08:07→18:51)
[2022-02-24] MEDS: carvediloL 12.5 MG TABLET PO ×2 (08:08→20:07)
[2022-02-24] MEDS: QUEtiapine Fumarate 50 MG TABLET PO ×2 (08:08→20:07)
[2022-02-24] MEDS: Losartan Potassium 50 MG TABLET 100 MG PO (08:08)
[2022-02-24] MEDS: Isosorbide Mononitrate 30 MG TAB.ER.24H PO (08:09)
[2022-02-24] MEDS: amLODIPine Besylate 10 MG TABLET PO (08:09)
[2022-02-24] MEDS: Docusate Sodium 100 MG CAPSULE PO ×2 (08:09→20:07)
[2022-02-24] MEDS: Folic Acid 1 MG TABLET PO (08:09)
[2022-02-24] MEDS: Furosemide 40 MG TABLET PO (08:09)
[2022-02-24] MEDS: Sertraline HCL 100 MG TABLET 200 MG PO (08:09)
[2022-02-24] MEDS: 0.9 % Sodium Chloride Flush 3 ML SYRINGE IVFLUSH ×2 (08:14→16:58)
[2022-02-24 09:55] LABS: Anion Gap 18 (12-20); Blood Urea Nitrogen 13 mg/dL (9-16); Calcium 9.2 mg/dL (8.4-10.2); Carbon Dioxide 23 mmol/L (22-29); Chloride 105 mmol/L (96-108); Creatinine Clr Calc Pharmacy 68.1; Estimated Glomerular Filt Rate > 60; Glucose Random 117 mg/dL (60-115); Potassium 4.2 mmol/L (3.3-5.1); Sodium 142 mmol/L (135-145)
[2022-02-24] MEDS: methylPREDNISolone Sod Succ 125 MG/2 ML VIAL 60 MG IVPUSH (12:02)
--- NOTE | 2022-02-24 13:16 | MHC.CM.PN ---
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 LIVES ALONE IN AN APARTMENT, HAS 1 HOUR DAILY CONTACT [facility] THURSDAY-THURSDAY. USES A WHEELED WALKER AND USES A SHOWER CHAIR TO BATHE. HAS BASELINE HOME 02 AT 3l/MIN, UNSURE OF THE COMPANY. +HCP, COVID VAX X1. PCP DR. NICHOLAS WOLF OF [facility] [place]. DP: WILL TRANSPORT HOME VIA AMBULANCE SECONDARY TO 02 DEPENDENCE. PT IS OPEN TO VNA OR SNF REFERRAL IF RECOMMENDED. REFERRALS PLACED. CM WILL CONTINUE TO FOLLOW FOR DC NEEDS.
--- NOTE | 2022-02-24 13:41 | HO.PM.IMPN ---
Subjective Subjective Date of Service: 02/24/22 Interval History: Essentially unchanged overnight Review of Systems Denies chest pain Admit shortness of breath that is unchanged Denies nausea vomiting diarrhea Physical Exam Vital Signs: Vital Signs: Last Vital Signs Temp 97.3 F 02/24/22 10:55 Pulse 75 02/24/22 11:14 Resp 18 02/24/22 11:14 BP 130/79 02/24/22 10:55 Pulse Ox 92 02/24/22 10:55 O2 Del Method 02/24/22 10:55 O2 Flow Rate 4 02/24/22 10:55 FiO2 50 02/23/22 14:02 Oxygen Flow Rate 4.5 02/23/22 11:44 BMI result Body Mass Index 33.2 Const: Other: No acute distress lying semi-Mccormack's. Able to speak in short sentences Resp: Other: Diminished throughout with coarse rhonchi throughout and scattered expiratory wheezes Cardio: Other: Distant heart sounds; no S4; positive S1-S2; no S3 murmurs rubs or gallops Extrem: Other: No edema bilaterally Objective Data Active Medications Acetaminophen (Acetaminophen 325 Mg Tablet) 650 mg PO Q6H PRN PRN Reason: Pain, Mild, fever Albuterol Sulfate (Albuterol Sulfate (0.083%) 2.5 Mg/3 Ml Vial.Neb) 2.5 mg INHALE Q2H PRN PRN Reason: Shortness of Breath/Wheezing Albuterol/Ipratropium (Albuterol/Iprat 2.5/0.5mg 3 Ml Ampul.Neb) 3 ml INHALE RQ4H WHILE AWAKE [facility] Last Admin: 02/24/22 11:13 Dose: 3 ml Documented By: MARCIAL Amlodipine Besylate (Amlodipine Besylate 10 Mg Tablet) 10 mg PO DAILY [facility]; Protocol Last Admin: 02/24/22 08:09 Dose: 10 mg Documented By: GERALD Carvedilol (Carvedilol 12.5 Mg Tablet) 12.5 mg PO BID [facility]; Protocol Last Admin: 02/24/22 08:08 Dose: 12.5 mg Documented By: GERALD Docusate Sodium (Docusate Sodium 100 Mg Capsule) 100 mg PO BID [facility] Last Admin: 02/24/22 08:09 Dose: 100 mg Documented By: GERALD Enoxaparin Sodium (Enoxaparin Sodium 40 Mg/0.4 Ml Syringe) 40 mg SUBCUT Q24H [facility] Last Admin: 02/23/22 20:04 Dose: 40 mg Documented By: TARYN Fluticasone/Vilanterol (Fluticasone/Vilanterol 100/25 Blst.W.Dev) 1 puff INHALE RDAILY [facility] Last Admin: 02/24/22 08:07 Dose: Not Given Documented By: MRACIAL Non-Admin Reason: Med Not Available Folic Acid (Folic Acid 1 Mg Tablet) 1 mg PO DAILY [facility] Last Admin: 02/24/22 08:09 Dose: 1 mg Documented By: GERALD Furosemide (Furosemide 40 Mg Tablet) 40 mg PO DAILY [facility]; Protocol Last Admin: 02/24/22 08:09 Dose: 40 mg Documented By: GERALD Doxycycline Hyclate 100 mg/ (Sodium Chloride) 250 mls @ 166.67 mls/hr IV Q12H [facility] Last Infusion: 02/24/22 08:13 Dose: 0 mls/hr Documented By: GERALD Ceftriaxone Sodium 1 gm/ (Sodium Chloride) 50 mls @ 100 mls/hr IV Q24H [facility] Isosorbide Mononitrate (Isosorbide Mononitrate 30 Mg Tab.Er.24h) 30 mg PO DAILY [facility]; Protocol Last Admin: 02/24/22 08:09 Dose: 30 mg Documented By: GERALD Losartan Potassium (Losartan Potassium 50 Mg Tablet) 100 mg PO DAILY [facility]; Protocol Last Admin: 02/24/22 08:08 Dose: 100 mg Documented By: GERALD Meclizine HCl (Meclizine Hcl 25 Mg Tablet) 25 mg PO TID PRN PRN Reason: dizziness Methylprednisolone Sodium Succinate (Methylprednisolone Sod Succ 125 Mg/2 Ml Vial) 60 mg IVPUSH Q12H [facility] Last Admin: 02/24/22 12:02 Dose: 60 mg Documented By: GERALD Montelukast Sodium (Montelukast Sodium 10 Mg Tablet) 10 mg PO BEDTIME [facility] Last Admin: 02/23/22 20:01 Dose: 10 mg Documented By: TARYN Ondansetron HCl (Ondansetron Hcl 4 Mg/2 Ml Vial) 4 mg IVPUSH Q8H PRN PRN Reason: Nausea and Vomiting Pharmacy Consult (Consult Rx Perform Med Rec) 1 each MISCELLANE ONCE PRN PRN Reason: Consult order Quetiapine Fumarate (Quetiapine Fumarate 50 Mg Tablet) 50 mg PO BID [facility] Last Admin: 02/24/22 08:08 Dose: 50 mg Documented By: GERALD Sertraline HCl (Sertraline Hcl 100 Mg Tablet) 200 mg PO DAILY [facility] Last Admin: 02/24/22 08:09 Dose: 200 mg Documented By: GERALD Sodium Chloride (0.9 % Sodium Chloride Flush 3 Ml Syringe) 3 ml IVFLUSH QSHIFT [facility] Last Admin: 02/24/22 08:14 Dose: 3 ml Documented By: GERALD Tiotropium [place] (Tiotropium [place] 18 Mcg Cap.W.Dev) 1 puff INHALE RDAILY [facility] Last Admin: 02/24/22 08:07 Dose: Not Given Documented By: MARCIAL Non-Admin Reason: Med Not Available Trazodone HCl (Trazodone Hcl 50 Mg Tablet) 50 - 100 mg PO BEDTIME PRN PRN Reason: Sleep Labs CBC & Chem 7: 02/23/22 12:15 02/24/22 09:17 Labs: Laboratory Results - last 24 hr 02/23/22 02/23/22 02/24/22 12:15 16:37 09:17 Anion Gap 18 Estim Creat Clear Calc 68.1 Estimated GFR > 60 Random Glucose 117 H Calcium 9.2 Troponin I High Sens 12.1 B-Natriuretic Peptide 269 H Assessment and Plan (1) Acute on chronic respiratory failure with hypoxemia: Status: Acute (2) COPD with acute exacerbation: Status: Acute (3) Right lower lobe pneumonitis: Status: Acute Plan 61-year-old female with history of hypertension, txf-yiyppqt-mpgyysyii type 2 diabetes, hyperlipidemia, nonrheumatic mitral regurgitation, nonischemic cardiomyopathy, heart failure with reduced ejection fraction, depression, KELLIE noncompliant with CPAP, osteoporosis, pulmonary hypertension, PSVT, 2-3 cigarettes per day smoker, severe COPD with chronic hypoxemic respiratory failure on 3-4 L O2 at home admitted for acute COPD exacerbation with acute on chronic hypoxemic respiratory failure requiring rescue BiPAP with successful weaning. 1. Acute on chronic hypoxemic respiratory failure secondary to COPD exacerbation - refusing BiPAP -continue pulse dose steroids/DuoNebs/O2 as tolerated -pulmonary consult 2.Acute COPD exacerbation- with chronic hypoxemic respiratory failure secondary to right lower lobe pneumonitis - continue ceftriaxone/doxycycline(2) -steroids/DuoNebs 3. DmII - lispro correctional scale -diabetic diet 4.Hypertension - continue amlodipine, losartan, carvedilol, furosemide 5.Depression - continue Zoloft, Seroquel, and trazodone DVT prophylaxis-Lovenox DNR/DNI Requires ongoing hospitalization for IV steroids and aggressive pulmonary toilet Quality Stroke Does the patient have a stroke diagnosis?: No VTE Prior VTE?: No VTE Risk Level:: Medical - moderate - high VTE Device Contraindication: Treatment Not Indicated VTE Drug Contraindication: N/A - Med Ordered
[2022-02-24] MEDS: cefTRIAXone sodium 1 GM in 0.9 % Sodium Chloride 50 ML IV (16:55)
[2022-02-24] MEDS: Enoxaparin Sodium 40 MG/0.4 ML SYRINGE SUBCUT (20:06)
[2022-02-24] MEDS: Montelukast Sodium 10 MG TABLET PO (20:07)
[2022-02-25] VITALS (10 sets, daily range): BP systolic 149–178; BP diastolic 84–97; PULSE 73–86; RESP 16–22; TEMP 36.1–37.2; O2SAT 90–98
[2022-02-25] MEDS: methylPREDNISolone Sod Succ 125 MG/2 ML VIAL 60 MG IVPUSH ×3 (00:25→23:41)
[2022-02-25] MEDS: 0.9 % Sodium Chloride Flush 3 ML SYRINGE IVFLUSH ×4 (00:26→23:42)
[2022-02-25] MEDS: Doxycycline Hyclate 100 MG in 0.9 % Sodium Chloride 250 ML 166.67 MG IV ×2 (06:37→18:20)
[2022-02-25 07:43] LABS: Anion Gap 17 (12-20); Blood Urea Nitrogen 24 mg/dL (9-16); Calcium 8.8 mg/dL (8.4-10.2); Carbon Dioxide 24 mmol/L (22-29); Chloride 105 mmol/L (96-108); Creatinine Clr Calc Pharmacy 64.6; Estimated Glomerular Filt Rate > 60; Glucose Random 159 mg/dL (60-115); Sodium 142 mmol/L (135-145)
[2022-02-25 07:54] LABS: Glucose, Whole Blood 145 mg/dL (60-115)
[2022-02-25] MEDS: Fluticasone/Vilanterol 100/25 BLST.W.DEV 1 PUFF INHALE (08:16)
[2022-02-25] MEDS: Albuterol/Iprat 2.5/0.5MG 3 ML AMPUL.NEB INHALE ×4 (08:16→19:39)
--- NOTE | 2022-02-25 08:57 | P.CONPL_ITS ---
History of Present Illness History of Present Illness Consult date: 02/25/22 Requesting physician: Jacobo Villarreal Reason for consult: COPD Chief complaint: COPD exacerbation, pneumonitis Narrative: ?THIS 61 YEARS OLD FEMALE WAS SEEN THIS MORNING BY ME FOR PULMONARY CONSULTATION. She was admitted on 02/23, with increased cough shortness of breath and general weakness. She had no fever chills or chest pain. No significant expectoration. No change in mental status. It is noted that she was admitted to on for similar complaints, and treated for acute on chronic congestive heart failure. The patient states that she has remained short of breath since her discharge. This patient is known case of moderate obesity, obstructive sleep apnea/chronic hypoventilation syndrome, but has always been non compliant to use CPAP or BiPAP. She is on home oxygen 3-4 L/minute. This patient does have advanced chronic obstructive pulmonary disease with chronic respiratory failure, and has been admitted many times with acute exacerbations. Patient was last seen in the office about 1 year ago, she is somewhat non compliant for follow-up. She has multiple comorbidities including history of hypertension, [id number] type 2 diabetes, hyperlipidemia, nonrheumatic mitral regurgitation, nonischemic cardiomyopathy, heart failure with reduced ejection fraction, depression. Patient still smokes 2-3 cigarettes a day. Since admission this time she is being treated for presumed pneumonitis in the right base and for acute exacerbation of COPD She is on Solu-Medrol 60 mg IV q.12 hours, O2 L 4 L/minute , DuoNeb updrafts , and Breo in the morning. She has remained afebrile, this morning she is lying down in the bed, appears comfortable, not much interested in conversation. Review of Systems Review of Systems: Yes all other systems are reviewed and are negative Constitutional: Constitutional: Denies body ache(s), Denies chills and Denies fever(s) Eyes: Eyes: Reports no additional eye complaints ENT: Reports system reviewed and no additional complaints, except as documented Cardiovascular: Cardiovascular: Denies chest pain, Denies irregular heart rhythm and Denies leg edema Respiratory: Respiratory: Reports as per HPI Gastrointestinal: Gastrointestinal: Reports no additional gastrointestinal complaints Musculoskeletal: Musculoskeletal: Reports back pain and Reports myalgias Integumentary/Breasts: Skin/Breast: Reports system reviewed and no additional complaints, except as docu Neurologic: Reports system reviewed and no additional complaints, except as documented Psychiatric: Psychiatric: Reports no additional psychiatric complaints [facility] Past Medical History Medical History (Updated 02/25/22 @ 09:15 by Rianna Gomez MD) Anxiety Atelectasis, right Chronic respiratory failure Depression Diabetes Essential hypertension HFrEF (heart failure with reduced ejection fraction) HLD (hyperlipidemia) HTN (hypertension) Hypertensive emergency Non-rheumatic mitral regurgitation Nonischemic cardiomyopathy KELLIE (obstructive sleep apnea) Osteoporosis Pulmonary hypertension Respiratory failure with hypoxia and hypercapnia Severe chronic obstructive pulmonary disease Supraventricular tachycardia Tobacco abuse Family History Family History Father No problems noted. 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) Alcohol intake: never Patient Tobacco Use Status: Current everyday Tobacco user Tobacco use type: Cigarette Cigarette Packs Per Day: 1 Cigarettes Per Day: 5 Years Smoked: 50 +/- Second Hand Smoke Exposure: No Advance Directives Date on File: 04/30/20 service: No Current occupational status: unemployed, retired and disabled Meds Allergies Allergy/AdvReac Type Severity Reaction Status Date / Time nicotine [Nicotine] Allergy Mild ITCHING Verified 02/24/22 11:55 WITH THE PATCHES topiramate Allergy Mild inadequealte Verified 02/24/22 11:55 response Active Medications: Current Medications Acetaminophen (Acetaminophen 325 Mg Tablet) 650 mg PO Q6H PRN PRN Reason: Pain, Mild, fever Albuterol Sulfate (Albuterol Sulfate (0.083%) 2.5 Mg/3 Ml Vial.Neb) 2.5 mg INHALE Q2H PRN PRN Reason: Shortness of Breath/Wheezing Albuterol/Ipratropium (Albuterol/Iprat 2.5/0.5mg 3 Ml Ampul.Neb) 3 ml INHALE RQ4H WHILE AWAKE [facility] Last Admin: 02/25/22 08:16 Dose: 3 ml Amlodipine Besylate (Amlodipine Besylate 10 Mg Tablet) 10 mg PO DAILY [facility]; Protocol Last Admin: 02/24/22 08:09 Dose: 10 mg Carvedilol (Carvedilol 12.5 Mg Tablet) 12.5 mg PO BID [facility]; Protocol Last Admin: 02/24/22 20:07 Dose: 12.5 mg Docusate Sodium (Docusate Sodium 100 Mg Capsule) 100 mg PO BID [facility] Last Admin: 02/24/22 20:07 Dose: 100 mg Enoxaparin Sodium (Enoxaparin Sodium 40 Mg/0.4 Ml Syringe) 40 mg SUBCUT Q24H [facility] Last Admin: 02/24/22 20:06 Dose: 40 mg Fluticasone/Vilanterol (Fluticasone/Vilanterol 100/25 Blst.W.Dev) 1 puff INHALE RDAILY [facility] Last Admin: 02/25/22 08:16 Dose: 1 puff Folic Acid (Folic Acid 1 Mg Tablet) 1 mg PO DAILY [facility] Last Admin: 02/24/22 08:09 Dose: 1 mg Furosemide (Furosemide 40 Mg Tablet) 40 mg PO DAILY [facility]; Protocol Last Admin: 02/24/22 08:09 Dose: 40 mg Doxycycline Hyclate 100 mg/ (Sodium Chloride) 250 mls @ 166.67 mls/hr IV Q12H [facility] Last Admin: 02/25/22 06:37 Dose: 166.67 mls/hr Ceftriaxone Sodium 1 gm/ (Sodium Chloride) 50 mls @ 100 mls/hr IV Q24H [facility] Last Infusion: 02/24/22 17:29 Dose: Infused Isosorbide Mononitrate (Isosorbide Mononitrate 30 Mg Tab.Er.24h) 30 mg PO DAILY [facility]; Protocol Last Admin: 02/24/22 08:09 Dose: 30 mg Losartan Potassium (Losartan Potassium 50 Mg Tablet) 100 mg PO DAILY [facility]; Protocol Last Admin: 02/24/22 08:08 Dose: 100 mg Meclizine HCl (Meclizine Hcl 25 Mg Tablet) 25 mg PO TID PRN PRN Reason: dizziness Methylprednisolone Sodium Succinate (Methylprednisolone Sod Succ 125 Mg/2 Ml Vial) 60 mg IVPUSH Q12H [facility] Last Admin: 02/25/22 00:25 Dose: 60 mg Montelukast Sodium (Montelukast Sodium 10 Mg Tablet) 10 mg PO BEDTIME [facility] Last Admin: 02/24/22 20:07 Dose: 10 mg Ondansetron HCl (Ondansetron Hcl 4 Mg/2 Ml Vial) 4 mg IVPUSH Q8H PRN PRN Reason: Nausea and Vomiting Pharmacy Consult (Consult Rx Perform Med Rec) 1 each MISCELLANE ONCE PRN PRN Reason: Consult order Quetiapine Fumarate (Quetiapine Fumarate 50 Mg Tablet) 50 mg PO BID [facility] Last Admin: 02/24/22 20:07 Dose: 50 mg Sertraline HCl (Sertraline Hcl 100 Mg Tablet) 200 mg PO DAILY [facility] Last Admin: 02/24/22 08:09 Dose: 200 mg Sodium Chloride (0.9 % Sodium Chloride Flush 3 Ml Syringe) 3 ml IVFLUSH QSHIFT [facility] Last Admin: 02/25/22 00:26 Dose: 3 ml Tiotropium [place] (Tiotropium [place] 18 Mcg Cap.W.Dev) 1 puff INHALE RDAILY [facility] Last Admin: 02/25/22 08:16 Dose: 1 puff Trazodone HCl (Trazodone Hcl 50 Mg Tablet) 50 - 100 mg PO BEDTIME PRN PRN Reason: Sleep Home Medications Medication Instructions Recorded Confirmed Last Taken Type trazodone 50 mg tablet 50 - 100 mg PO BEDTIME PRN Sleep 03/08/20 02/23/22 03/29/21 History fluticasone furoate 100 1 puff PO DAILY 12/13/21 02/23/22 Unknown History mcg-vilanterol 25 mcg/dose inhalation powder prednisone 5 mg tablet 5 mg PO DAILY 02/23/22 02/23/22 Unknown History Physical Exam Vital Signs: Vital Signs: Last Vital Signs Temp 97.6 F 02/25/22 07:43 Pulse 86 02/25/22 08:17 Resp 22 H 02/25/22 08:17 BP 170/96 H 02/25/22 07:43 Pulse Ox 98 02/25/22 07:43 O2 Del Method 02/25/22 07:43 O2 Flow Rate 5 02/25/22 07:43 FiO2 50 02/23/22 14:02 Oxygen Flow Rate 4.5 02/23/22 11:44 BMI result Body Mass Index 33.2 Const: Other: Moderately obese has a round face, General: comfortable, no acute distress, alert and awake Orientation/consciousness: patient oriented x3 HEENT: Head: Yes normal to inspection General nose exam: No nasal polyps present and No nasal discharge present Face and sinus: Yes sinuses nontender Mouth: oropharynx normal Throat: Yes posterior oropharynx normal Eyes: General: appearance normal, both eyes and all related structures Neck: Neck: Yes normal visual inspection, Yes no lymphadenopathy, Yes trachea midline and Yes no JVD Thyroid: Thyroid normal Chest: Chest palpation & inspection: normal inspection of the chest, normal palpation of entire chest wall and no tenderness Resp: Other: Percussion note is resonant, breath sounds are decreased over both lower lobes. A few inspiratory crackles are heard over both bases. No wheezes. Cardio: Palpation: normal PMI Rate: regular rate Rhythm: regular rhythm Heart sounds: no gallops and no murmurs GI: Palpation (GI): Soft to palpation, nontender, No hepatosplenomegaly present and no masses Auscultation: normal bowel sounds Back/Spine/Pelvis: Other: Not examined Skin: General skin exam: no rashes or lesions noted Neuro: General: patient oriented x3, No gait normal (Somewhat impaired due to general weakness) and no focal motor deficits Cranial nerves: Yes CN's II-XII intact bilaterally Extrem: General: Yes normal to inspection, Yes no clubbing, cyanosis or edema and Yes no calf tenderness Psych: Appearance: grossly normal and well kempt Speech and movement: Normal speech and movement present Results Laboratory Findings CBC and BMP: 02/23/22 12:15 02/25/22 06:19 ABG, PT/INR, D-dimer: PT/INR, D-dimer PT 11.1 SEC (10.0-13.1) 02/23/22 12:15 INR 1.0 (0.9-1.1) 02/23/22 12:15 Abnormal lab findings: Abnormal Labs 02/23/22 02/23/22 02/23/22 12:15 12:15 12:15 Hgb 10.7 L Hct 36.5 L MCH 23.6 L MCHC 29.3 L VBG pH VBG HCO3 Potassium 3.2 L BUN 6 L D POC Glucose Random Glucose 142 H Alkaline Phosphatase 149 H Troponin I High Sens 17.6 H B-Natriuretic Peptide 269 H Total Protein 8.2 H 02/23/22 02/24/22 02/25/22 12:45 09:17 06:19 Hgb Hct MCH MCHC VBG pH 7.59 H VBG HCO3 27 H Potassium BUN 24 H D POC Glucose Random Glucose 117 H 159 H Alkaline Phosphatase Troponin I High Sens B-Natriuretic Peptide Total Protein 02/25/22 07:36 Hgb Hct MCH MCHC VBG pH VBG HCO3 Potassium BUN POC Glucose 145 H Random Glucose Alkaline Phosphatase Troponin I High Sens B-Natriuretic Peptide Total Protein Microbiology: Microbiology 02/23/22 12:27 Blood - Venous Blood Culture - Preliminary No growth after 24 hours. 02/23/22 12:17 Blood - Venous Blood Culture - Preliminary No growth after 24 hours. Venous blood gas results : PH 7.59 pCO2 28 PO2 of 201, c/w respiratory alkalosis, represents hyperventilation. Will be repeated today. Diagnostic Findings Chest x-ray: image reviewed Additional studies: Chest x-ray showing density in the right lower lobe is more due to atelectasis / poor ventilation of the basilar areas. Assessment and Plan (1) COPD with acute exacerbation: Status: Acute (2) Atelectasis, right: Status: Acute (3) Respiratory failure with hypoxia and hypercapnia: Status: Acute Plan I think this 7 years old female with chronic respiratory problems including multiple comorbidities, has improved to almost baseline. The density in the right lower lobe is more like atelectasis due to hypoventilation of the basilar areas. She has advanced chronic obstructive pulmonary disease, with chronic respiratory failure, KELLIE/Hypoventilation , is prone to have acute exacerbations because she continues to smoke. At this point, I would reduce IV Solu-Medrol to 40 mg b.i.d. today and from tomorrow start on prednisone 40 mg a day, weaning by 10 mg every 5 days. I think we can treat her with doxycycline 100 b.i.d. by mouth for 1 week. Continue O2 by nasal cannula and wean down to keep O2 sat just above 92%. Continue DuoNeb updrafts Q 6 hours while awake, scheduled. She should have the updraft treatments even at home. Continue Breo -100 1 inhalation daily. And montelukast 10 mg p.o. daily. Encourage her to do deep breathing exercises. Counseled to stop smoking completely. Patient should keep her appointments for outpatient follow-up Recheck venous blood gases. Procedures Date of Service Date of Service: 02/25/22
[2022-02-25] MEDS: amLODIPine Besylate 10 MG TABLET PO (09:04)
[2022-02-25] MEDS: Folic Acid 1 MG TABLET PO (09:04)
[2022-02-25] MEDS: Losartan Potassium 50 MG TABLET 100 MG PO (09:05)
[2022-02-25] MEDS: Docusate Sodium 100 MG CAPSULE PO ×2 (09:05→20:26)
[2022-02-25] MEDS: Isosorbide Mononitrate 30 MG TAB.ER.24H PO (09:05)
[2022-02-25] MEDS: carvediloL 12.5 MG TABLET PO ×2 (09:05→20:26)
[2022-02-25] MEDS: Sertraline HCL 100 MG TABLET 200 MG PO (09:05)
[2022-02-25] MEDS: QUEtiapine Fumarate 50 MG TABLET PO ×2 (09:05→20:26)
[2022-02-25] MEDS: Furosemide 40 MG TABLET PO (09:55)
[2022-02-25 09:59] LABS: VBG pCO2 36 mmHg; VBG pH 7.44 (7.32-7.43); VBG pO2 51 mmHg
[2022-02-25 10:00] LABS: Venous Blood Gas Refer to POC result
[2022-02-25 10:00] LABS: VBG HCO3 24 mmol/L (22-26)
[2022-02-25 11:24] LABS: Glucose, Whole Blood 150 mg/dL (60-115)
--- NOTE | 2022-02-25 13:46 | P.PNIM_ITS ---
Subjective Subjective Date of Service: 02/25/22 Interval History: Notes some improvement overnight. Continues to be short of breath at rest; (likely her baseline) Review of Systems Denies chest pain Admit shortness of breath that is unchanged Denies nausea vomiting diarrhea Physical Exam Vital Signs: Vital Signs: Last Vital Signs Temp 96.9 F 02/25/22 12:00 Pulse 80 02/25/22 12:00 Resp 22 H 02/25/22 12:00 BP 168/96 H 02/25/22 12:00 Pulse Ox 93 02/25/22 12:00 O2 Del Method 02/25/22 12:00 O2 Flow Rate 5 02/25/22 12:00 FiO2 50 02/23/22 14:02 Oxygen Flow Rate 4.5 02/23/22 11:44 BMI result Body Mass Index 33.2 Const: Other: No acute distress lying semi-Mccormack's. Able to speak in short sentences Resp: Other: Diminished throughout with coarse rhonchi throughout and scattered expiratory wheezes Cardio: Other: Distant heart sounds; no S4; positive S1-S2; no S3 murmurs rubs or gallops Extrem: Other: No edema bilaterally Objective Data Active Medications Acetaminophen (Acetaminophen 325 Mg Tablet) 650 mg PO Q6H PRN PRN Reason: Pain, Mild, fever Albuterol Sulfate (Albuterol Sulfate (0.083%) 2.5 Mg/3 Ml Vial.Neb) 2.5 mg INHALE Q2H PRN PRN Reason: Shortness of Breath/Wheezing Albuterol/Ipratropium (Albuterol/Iprat 2.5/0.5mg 3 Ml Ampul.Neb) 3 ml INHALE RQ4H WHILE AWAKE [facility] Last Admin: 02/25/22 11:41 Dose: 3 ml Documented By: JACOB Amlodipine Besylate (Amlodipine Besylate 10 Mg Tablet) 10 mg PO DAILY [facility]; Protocol Last Admin: 02/25/22 09:04 Dose: 10 mg Documented By: BOYD Carvedilol (Carvedilol 12.5 Mg Tablet) 12.5 mg PO BID [facility]; Protocol Last Admin: 02/25/22 09:05 Dose: 12.5 mg Documented By: BOYD Docusate Sodium (Docusate Sodium 100 Mg Capsule) 100 mg PO BID [facility] Last Admin: 02/25/22 09:05 Dose: 100 mg Documented By: BOYD Enoxaparin Sodium (Enoxaparin Sodium 40 Mg/0.4 Ml Syringe) 40 mg SUBCUT Q24H [facility] Last Admin: 02/24/22 20:06 Dose: 40 mg Documented By: MARIA INES Fluticasone/Vilanterol (Fluticasone/Vilanterol 100/25 Blst.W.Dev) 1 puff INHALE RDAILY [facility] Last Admin: 02/25/22 08:16 Dose: 1 puff Documented By: JACOB Folic Acid (Folic Acid 1 Mg Tablet) 1 mg PO DAILY [facility] Last Admin: 02/25/22 09:04 Dose: 1 mg Documented By: BOYD Furosemide (Furosemide 40 Mg Tablet) 40 mg PO DAILY [facility]; Protocol Last Admin: 02/25/22 09:55 Dose: 40 mg Documented By: BOYD Doxycycline Hyclate 100 mg/ (Sodium Chloride) 250 mls @ 166.67 mls/hr IV Q12H [facility] Last Infusion: 02/25/22 10:13 Dose: 0 mls/hr Documented By: BOYD Ceftriaxone Sodium 1 gm/ (Sodium Chloride) 50 mls @ 100 mls/hr IV Q24H [facility] Last Infusion: 02/24/22 17:29 Dose: 0 mls/hr Documented By: CHAD Isosorbide Mononitrate (Isosorbide Mononitrate 30 Mg Tab.Er.24h) 30 mg PO DAILY [facility]; Protocol Last Admin: 02/25/22 09:05 Dose: 30 mg Documented By: BOYD Losartan Potassium (Losartan Potassium 50 Mg Tablet) 100 mg PO DAILY [facility]; Protocol Last Admin: 02/25/22 09:05 Dose: 100 mg Documented By: BOYD Meclizine HCl (Meclizine Hcl 25 Mg Tablet) 25 mg PO TID PRN PRN Reason: dizziness Methylprednisolone Sodium Succinate (Methylprednisolone Sod Succ 125 Mg/2 Ml Vial) 60 mg IVPUSH Q12H [facility] Last Admin: 02/25/22 11:01 Dose: 60 mg Documented By: BOYD Montelukast Sodium (Montelukast Sodium 10 Mg Tablet) 10 mg PO BEDTIME [facility] Last Admin: 02/24/22 20:07 Dose: 10 mg Documented By: MARIA INES Ondansetron HCl (Ondansetron Hcl 4 Mg/2 Ml Vial) 4 mg IVPUSH Q8H PRN PRN Reason: Nausea and Vomiting Pharmacy Consult (Consult Rx Perform Med Rec) 1 each MISCELLANE ONCE PRN PRN Reason: Consult order Quetiapine Fumarate (Quetiapine Fumarate 50 Mg Tablet) 50 mg PO BID [facility] Last Admin: 02/25/22 09:05 Dose: 50 mg Documented By: BOYD Sertraline HCl (Sertraline Hcl 100 Mg Tablet) 200 mg PO DAILY [facility] Last Admin: 02/25/22 09:05 Dose: 200 mg Documented By: BOYD Sodium Chloride (0.9 % Sodium Chloride Flush 3 Ml Syringe) 3 ml IVFLUSH QSHIFT [facility] Last Admin: 02/25/22 09:05 Dose: 3 ml Documented By: BOYD Tiotropium [place] (Tiotropium [place] 18 Mcg Cap.W.Dev) 1 puff INHALE RDAILY [facility] Last Admin: 02/25/22 08:16 Dose: 1 puff Documented By: JACOB Trazodone HCl (Trazodone Hcl 50 Mg Tablet) 50 - 100 mg PO BEDTIME PRN PRN Reason: Sleep Labs CBC & Chem 7: 02/23/22 12:15 02/25/22 06:19 Labs: Laboratory Results - last 24 hr 02/25/22 02/25/22 02/25/22 06:19 07:36 09:54 VBG pH 7.44 H VBG pCO2 36 VBG pO2 51 VBG HCO3 24 VBG O2 Saturation 81.0 VBG Base Excess 1.0 Anion Gap 17 Estim Creat Clear Calc 64.6 Estimated GFR > 60 POC Glucose 145 H Random Glucose 159 H Calcium 8.8 02/25/22 11:18 VBG pH VBG pCO2 VBG pO2 VBG HCO3 VBG O2 Saturation VBG Base Excess Anion Gap Estim Creat Clear Calc Estimated GFR POC Glucose 150 H Random Glucose Calcium Microbiology Microbiology Results: Microbiology 02/23/22 12:27 Blood Culture - Preliminary Blood - Venous No growth after 24 hours. 02/23/22 12:17 Blood Culture - Preliminary Blood - Venous No growth after 24 hours. Assessment and Plan (1) Respiratory failure with hypoxia and hypercapnia: Status: Acute (2) Acute on chronic respiratory failure with hypoxemia: Status: Acute (3) COPD with acute exacerbation: Status: Acute Plan 61-year-old female with history of hypertension, [id number] type 2 diabetes, hyperlipidemia, nonrheumatic mitral regurgitation, nonischemic cardiomyopathy, heart failure with reduced ejection fraction, depression, KELLIE noncompliant with CPAP, osteoporosis, pulmonary hypertension, PSVT, 2-3 cigarettes per day smoker, severe COPD with chronic hypoxemic respiratory failure on 3-4 L O2 at home admitted for acute COPD exacerbation with acute on chronic hypoxemic respiratory failure requiring rescue BiPAP with successful weaning. 1. Acute on chronic hypoxemic respiratory failure secondary to COPD exacerbation - refusing BiPAP -continue pulse dose steroids/DuoNebs/O2 as tolerated... P.o. steroids in a.m. -pulmonary consult 2.Acute COPD exacerbation- with chronic hypoxemic respiratory failure secondary to right lower lobe pneumonitis - continue ceftriaxone/doxycycline(3).... P.o. doxycycline on discharge -steroids/DuoNebs 3. DmII - lispro correctional scale -diabetic diet 4.Hypertension - continue amlodipine, losartan, carvedilol, furosemide 5.Depression - continue Zoloft, Seroquel, and trazodone DVT prophylaxis-Lovenox DNR/DNI Requires ongoing hospitalization for IV steroids and aggressive pulmonary toilet Quality Stroke Does the patient have a stroke diagnosis?: No VTE Prior VTE?: No VTE Risk Level:: Medical - moderate - high VTE Device Contraindication: Treatment Not Indicated VTE Drug Contraindication: N/A - Med Ordered
[2022-02-25] MEDS: cefTRIAXone sodium 1 GM in 0.9 % Sodium Chloride 50 ML IV (17:29)
[2022-02-25 17:33] LABS: Glucose, Whole Blood 97 mg/dL (60-115)
[2022-02-25 20:06] LABS: Glucose, Whole Blood 134 mg/dL (60-115)
[2022-02-25] MEDS: Montelukast Sodium 10 MG TABLET PO (20:26)
[2022-02-25] MEDS: Enoxaparin Sodium 40 MG/0.4 ML SYRINGE SUBCUT (20:26)
[2022-02-26 03:20] VITALS: BP 150/88; PULSE 82; RESP 20; TEMP 37.1; O2SAT 100
[2022-02-26] MEDS: Folic Acid 1 MG TABLET PO (07:53)
[2022-02-26] MEDS: carvediloL 12.5 MG TABLET PO (07:54)
[2022-02-26] MEDS: amLODIPine Besylate 10 MG TABLET PO (07:54)
[2022-02-26] MEDS: Furosemide 40 MG TABLET PO (07:54)
[2022-02-26] MEDS: Docusate Sodium 100 MG CAPSULE PO (07:54)
[2022-02-26] MEDS: Sertraline HCL 100 MG TABLET 200 MG PO (07:54)
[2022-02-26] MEDS: QUEtiapine Fumarate 50 MG TABLET PO (07:54)
[2022-02-26] MEDS: Isosorbide Mononitrate 30 MG TAB.ER.24H PO (07:54)
[2022-02-26] MEDS: Doxycycline Hyclate 100 MG in 0.9 % Sodium Chloride 250 ML 166.67 MG IV (07:55)
[2022-02-26] MEDS: 0.9 % Sodium Chloride Flush 3 ML SYRINGE IVFLUSH (07:55)
[2022-02-26] MEDS: Losartan Potassium 50 MG TABLET 100 MG PO (07:56)
[2022-02-26 08:00] VITALS: BP 144/88; PULSE 74; RESP 16; TEMP 35.9; O2SAT 96
[2022-02-26 08:23] LABS: Anion Gap 17 (12-20); Blood Urea Nitrogen 23 mg/dL (9-16); Calcium 8.7 mg/dL (8.4-10.2); Carbon Dioxide 24 mmol/L (22-29); Chloride 104 mmol/L (96-108); Creatinine Clr Calc Pharmacy 67.2; Estimated Glomerular Filt Rate > 60; Glucose Random 177 mg/dL (60-115); Potassium 4.2 mmol/L (3.3-5.1); Sodium 141 mmol/L (135-145)
[2022-02-26] MEDS: Albuterol/Iprat 2.5/0.5MG 3 ML AMPUL.NEB INHALE ×2 (08:28→12:12)
[2022-02-26] MEDS: Fluticasone/Vilanterol 100/25 BLST.W.DEV 1 PUFF INHALE (08:29)
[2022-02-26 08:30] VITALS: PULSE 75; RESP 18; O2SAT 95
--- NOTE | 2022-02-26 09:40 | P.PNPL_ITS ---
Subjective Subjective Date of Service: 02/26/22 Principal diagnosis: copd excarbation/ resp. failure Interval history: The patient is up in the chair, claims to be feeling better and actually wishes to go home today. She has very little cough or expectoration and also denies wheezing. Objective Data Labs CBC & Chem 7: 02/23/22 12:15 02/26/22 07:17 Labs: Laboratory Results - last 24 hr 02/25/22 02/25/22 02/25/22 09:54 11:18 17:28 VBG pH 7.44 H VBG pCO2 36 VBG pO2 51 VBG HCO3 24 VBG O2 Saturation 81.0 VBG Base Excess 1.0 Sodium Potassium Chloride Carbon Dioxide Anion Gap BUN Creatinine Estim Creat Clear Calc Estimated GFR POC Glucose 150 H 97 Random Glucose Calcium 02/25/22 02/26/22 19:59 07:17 VBG pH VBG pCO2 VBG pO2 VBG HCO3 VBG O2 Saturation VBG Base Excess Sodium 141 Potassium 4.2 Chloride 104 Carbon Dioxide 24 Anion Gap 17 BUN 23 H Creatinine 0.75 Estim Creat Clear Calc 67.2 Estimated GFR > 60 POC Glucose 134 H Random Glucose 177 H Calcium 8.7 Venous blood gases 7.44, pco2 36 po2 51 Microbiology Microbiology Results: Microbiology 02/23/22 12:27 Blood - Venous Blood Culture - Preliminary No growth after 48 hours. 02/23/22 12:17 Blood - Venous Blood Culture - Preliminary No growth after 48 hours. Physical Exam Vital Signs: Vital Signs: Last Vital Signs Temp 96.7 F L 02/26/22 08:00 Pulse 75 02/26/22 08:30 Resp 18 02/26/22 08:30 BP 144/88 H 02/26/22 08:00 Pulse Ox 96 02/26/22 08:00 O2 Del Method 02/26/22 08:00 O2 Flow Rate 5 02/26/22 08:00 FiO2 50 02/23/22 14:02 Oxygen Flow Rate 4.5 02/23/22 11:44 BMI result Body Mass Index 33.2 Const: Other: Moderately obese has a round face, General: comfortable, no acute distress, alert and awake Orientation/consciousness: patient oriented x3 HEENT: Head: Yes normal to inspection General nose exam: No nasal polyps present and No nasal discharge present Face and sinus: Yes sinuses nontender Mouth: oropharynx normal Throat: Yes posterior oropharynx normal Eyes: General: appearance normal, both eyes and all related structures Neck: Neck: Yes normal visual inspection, Yes no lymphadenopathy, Yes trachea midline and Yes no JVD Thyroid: Thyroid normal Chest: Chest palpation & inspection: normal inspection of the chest, normal palpation of entire chest wall and no tenderness Resp: Other: Percussion note is resonant, breath sounds are decreased over both lower lobes. A few inspiratory crackles are still present heard over both bases. No wheezes. Cardio: Palpation: normal PMI Rate: regular rate Rhythm: regular rhythm Heart sounds: no gallops and no murmurs GI: Palpation (GI): Soft to palpation, nontender, No hepatosplenomegaly present and no masses Auscultation: normal bowel sounds Back/Spine/Pelvis: Other: Not examined Skin: General skin exam: no rashes or lesions noted Neuro: General: patient oriented x3, No gait normal (Somewhat impaired due to general weakness) and no focal motor deficits Cranial nerves: Yes CN's II-XII intact bilaterally Extrem: General: Yes normal to inspection, Yes no clubbing, cyanosis or edema and Yes no calf tenderness Psych: Appearance: grossly normal and well kempt Speech and movement: Normal speech and movement present Procedures Date of Service Date of Service: 02/26/22 Assessment and Plan Assessment and plan (1) Respiratory failure with hypoxia and hypercapnia: Status: Acute (2) Atelectasis, right: Status: Acute (3) Acute on chronic respiratory failure with hypoxemia: Status: Acute (4) COPD with acute exacerbation: Status: Acute Plan I think patient has definitely improved and seems to be at her baseline. A few inspiratory crackles over the bases say is are secondary to chronic bibasilar atelectasis, in her case. Clinically I do not think she has pneumonia. Venous blood gases showed normal PCO 2. Recc : Decrease IV Solu-Medrol to 40 mg Q 12 hours today, by tomorrow may be started on prednisone 40 mg a day for 5 days. DuoNeb updrafts Q 6 hours while awake and albuterol updraft Q 4 hours p.r.n.. Breo-200 1 inhalation daily. O2 4-5 L/minute to keep O2 sat just above 90%. This patient is not going to use CPAP or BiPAP, so it can be discontinued. Encouraged her to do deep breathing exercises as much as possible. Router Operator Pin her to quit smoking completely. I think she can complete doxycycline 100 b.i.d. for , just 1 weeks,s duration . Patient is very anxious to go home, and may be discharged by tomorrow. She needs continued outpatient follow-up. Time Spent With Patient Time: Total time spent is greater than 50% in coordination of care (as documented) at patient's floor/unit and/or counseling patient: Progress Note: Quality Stroke Does the patient have a stroke diagnosis?: No
[2022-02-26 10:53] VITALS: BP 153/95; PULSE 75; RESP 20; TEMP 36.1; O2SAT 92
[2022-02-26] MEDS: methylPREDNISolone Sod Succ 125 MG/2 ML VIAL 60 MG IVPUSH (12:00)
[2022-02-26 12:18] VITALS: PULSE 79; RESP 18; O2SAT 94
--- NOTE | 2022-02-26 14:23 | MHC.CM.PN ---
Female 61 DX COPD exacerbation. Per Pulmonary 1 more day of Solumedrol before starting Prednisone PO. DC is anticipated tomorrow. DP home with new NA BLS transport.
--- NOTE | 2022-02-26 15:41 | PM.DS ---
DS: Providers Provider Date of Service: 02/26/22 Date of admission: 02/23/22 18:00 Date of discharge: 02/26/22 Primary care physician: Analisa Chavez MD Consults: 02/24/22 13:39 Consult to Pulmonology Stat Consulting Provider: Elton Winslow Reason for consultation: COPD exacerbation Has provider been notified: No DS: Diagnosis Discharge Diagnosis (1) Respiratory failure with hypoxia and hypercapnia: Status: Acute (2) Atelectasis, right: Status: Acute (3) Acute on chronic respiratory failure with hypoxemia: Status: Acute (4) COPD with acute exacerbation: Status: Acute DS: Summary Hospital Course Hospital Course: 61-year-old female with history of hypertension, [id number] type 2 diabetes, hyperlipidemia, nonrheumatic mitral regurgitation, nonischemic cardiomyopathy, heart failure with reduced ejection fraction, depression, KELLIE noncompliant with CPAP, osteoporosis, pulmonary hypertension, PSVT, 2-3 cigarettes per day smoker, severe COPD with chronic hypoxemic respiratory failure on 3-4 L O2 at home presented to the ED this morning with about 2 weeks of worsening dyspnea, anorexia, and weakness. ? She reports the dyspnea is persistent but worse when talking. She states she has been requiring the use of 6 L oxygen and was found at 96% on 6 L by EMS.? She is also complaining of mild substernal chest pain.? She denies any fevers, chills, cough, nausea, vomiting, abdominal pain, lightheadedness, palpitations.? She does endorse chronic constipation.? she is also reporting pain in the lower legs bilaterally that has been ongoing for many months. Denies any sick contacts or recent travel.? In the ED, chest x-ray showed cardiomegaly without pulmonary edema as well as focus of density in the right lower lobe relating to possible atelectasis versus? Pneumonitis.? VBG with pH of? 7.59 bicarb 27.? Hematology studies unremarkable except for chronic stable normocytic anemia.? Renal function stable, potassium 3.2, electrolytes otherwise normal. ? Initial troponin 17.6, repeat 12.1.? BNP baseline at 269.? Negative for COVID-19 and? Influenza.? Due to ongoing increased work of breathing, tachypnea, and hypoxia on 10 L O2, she was placed on? BiPAP with FiO2 of 50 for 2 hours and was successfully weaned, now on 5 L O2 via nasal cannula with oximetry 92%.? Patient to be admitted for COPD exacerbation with acute on chronic hypoxemic respiratory failure. Hospital Course Patient admitted to telemetry placed on IV pulse dose steroids and antibiotics. Over the next 48 hours she improved to the point where she was titrated down to 5 L and this is her baseline at home. She was seen in consultation by pulmonology who requested she stay 24 additional hours but patient was adamant that she wanted to return home. I do not think this is unreasonable and I will discharge the patient and not have her sign out against medical advice. She will go home to complete a course of oral doxycycline and prednisone tapering to follow-up with her PCP Time Spent with Patient Time attestation: Total time spent providing and/or coordinating discharge services: Discharge coordination time: Greater than 30 minutes Quality: Safe Use of Opioids Does Pt have an Active Cancer Diagnosis on the Problem List?: No Quality: Stroke Does the patient have a stroke diagnosis?: No Physical Exam Vital Signs: Vital Signs: Last Vital Signs Temp 96.9 F 02/26/22 10:53 Pulse 79 02/26/22 12:18 Resp 18 02/26/22 12:18 BP 153/95 H 02/26/22 10:53 Pulse Ox 92 02/26/22 10:53 O2 Del Method 02/26/22 10:53 O2 Flow Rate 5 02/26/22 10:53 FiO2 50 02/23/22 14:02 Oxygen Flow Rate 4.5 02/23/22 11:44 BMI result Body Mass Index 33.2 Const: Other: Awake alert oriented x3 no acute distress Resp: Other: Improved aeration to the bases; scant expiratory wheezes throughout Cardio: Other: No S4; positive S1-S2; no S3 murmurs rubs gallops GI: Other: Soft nontender nondistended normoactive bowel sounds Extrem: Other: No edema DS: Data Data Completed and Pending Completed studies during hospitalization [Text1]: Procedures Assistance with Respiratory Ventilation, Less than 24 Consecutive Hours, Continuous Positive Airway Pressure (03/30/21) Labs on day of discharge: Laboratory Results - last 24 hr 02/25/22 02/25/22 02/26/22 17:28 19:59 07:17 Sodium 141 Potassium 4.2 Chloride 104 Carbon Dioxide 24 Anion Gap 17 BUN 23 H Creatinine 0.75 Estim Creat Clear Calc 67.2 Estimated GFR > 60 POC Glucose 97 134 H Random Glucose 177 H Calcium 8.7 Preliminary micro results at discharge 02/23/22 12:27 Blood Culture - Preliminary Blood - Venous No growth after 48 hours. 02/23/22 12:17 Blood Culture - Preliminary Blood - Venous No growth after 48 hours. Discharge Plan Discharge Anticipated Discharge Date/Time: 02/26/22 15:10 Patient Disposition: Home Health Service Discharge Diagnosis: COPD exacerbation Referrals: Analisa Carr MD [Primary Care Provider] - 1 Week Discharge Medications: New doxycycline hyclate 100 mg Tablet 100 mg PO Q12H Qty: 14 0RF prednisone 10 mg tablet See Rx Instructions .Route .COMPLEX Qty: 45 0RF Rx Instructions: 10 mg orally; 5 tabs p.o. daily x3 days; 4 tabs p.o. daily x3 days; 3 tabs daily x3 days; 2 tabs daily x3 days; 1 tab daily x3 days Continued sertraline 100 mg tablet 200 mg PO DAILY 90 Days Qty: 180 1RF quetiapine 50 mg tablet 50 mg PO BID 90 Days Qty: 180 1RF isosorbide mononitrate 30 mg tablet extended release 24 hr 30 mg PO DAILY 90 Days Qty: 90 3RF Protocol: Hold for SBP< HOLD for SBP < : 90 furosemide 40 mg tablet 40 mg PO DAILY Qty: 30 3RF montelukast 10 mg tablet 10 mg PO BEDTIME Qty: 30 11RF Spiriva with HandiHaler 18 mcg capsule, w/inhalation device 1 cap inhalation DAILY 30 Days Qty: 30 5RF meclizine 25 mg tablet 25 mg PO TID PRN (Reason: dizziness) 30 Days Qty: 90 0RF losartan 50 mg tablet 100 mg PO DAILY Qty: 60 0RF Protocol: Hold for SBP< HOLD for SBP < : 90 carvedilol 12.5 mg tablet 12.5 mg PO BID 90 Days Qty: 180 1RF Rx Instructions: must administer with a meal/food trazodone 50 mg tablet 50 - 100 mg PO BEDTIME PRN (Reason: Sleep) folic acid 1 mg Tablet 1 mg PO DAILY Qty: 90 4RF amlodipine 10 mg Tablet 10 mg PO DAILY Qty: 30 0RF Protocol: Hold for SBP< HOLD for SBP < : 90 fluticasone furoate-vilanterol 100-25 mcg/dose blister with device 1 puff PO DAILY Discontinued prednisone 5 mg Tablet 5 mg PO DAILY Discharge Orders: Discharge Order (Routine); Ordered 02/26/22 Ordered By: Jacobo Villarreal Diet: Advance to usual diet Activity on Discharge: As tolerated Stand Alone Forms: Patient Portal Discharge page Care Plan Goals: Complete doxycycline along with prednisone taper Health Concerns: Attempt to quit smoking Plan of Treatment: Resume all other meds that you were taking before the hospital. Follow-up with PCP 2 weeks Assessment: See discharge summary
== END 2022-02-26 17:30 | disposition home health service (06) | DRG 139 ==
LOC: HO.ED 14:10 → HO.EDOVER 18:10 → HO.IMC 02-24 04:41
PROVIDERS: Internal Medicine; Physician Assistant; Admitting Provider Physician Assistant; Emergency Provider Emergency Medicine; PCP Internal Medicine; Visit Provider Hospitalist
DX: J18.9 Pneumonia, unspecified organism (principal); J96.21 Acute and chronic respiratory failure with hypoxia; I27.20 Pulmonary hypertension, unspecified; J44.0 Chronic obstructive pulmonary disease with (acute) lower respiratory infection; I42.8 Other cardiomyopathies; I11.0 Hypertensive heart disease with heart failure; I50.22 Chronic systolic (congestive) heart failure; Z66 Do not resuscitate; Z99.81 Dependence on supplemental oxygen; J44.1 Chronic obstructive pulmonary disease with (acute) exacerbation; G47.33 Obstructive sleep apnea (adult) (pediatric); E87.6 Hypokalemia; K59.09 Other constipation; E11.9 Type 2 diabetes mellitus without complications; T48.6X5A Adverse effect of antiasthmatics, initial encounter; J96.22 Acute and chronic respiratory failure with hypercapnia; J98.11 Atelectasis; E78.5 Hyperlipidemia, unspecified; F32.A Depression, unspecified; F17.210 Nicotine dependence, cigarettes, uncomplicated; Z91.199 Patient's noncompliance with other medical treatment and regimen due to unspecified reason; Z20.822 Contact with and (suspected) exposure to COVID-19; Z71.6 Tobacco abuse counseling; Z88.8 Allergy status to other drugs, medicaments and biological substances; Z79.899 Other long term (current) drug therapy
CPT/HCPCS: 36415; 71045; 80048; 80076; 82803; 82947; 83605; 83735; 83880; 84484; 85025; 85610; 87040; 87502; 87635; 93005; 93970; 94640; 94660; 96365; 96366; 96367; 96375; 97162; 97530; 99285; J0456; J0696; J1650; J2930; J3475

== ENCOUNTER 2022-03-23 13:33 | Emergency (ER) | payer OTHER, SELFPAY ==
--- NOTE | ~2022-03-23 | XR_ITS ---
EXAMINATION: XR CHEST CLINICAL INFORMATION: Shortness of breath. COMPARISON: 02/23/2022 and 12/13/2021 chest radiograph. TECHNIQUE: Frontal view of the chest was obtained. FINDINGS: Mild hazy opacification is seen at the right lung base. The right upper lung field and left lung are clear. XR/XR chest 1V IMPRESSION: Mild hazy opacification at the right lung base represents interval improvement from previous studies suggesting chronic changes. Residual mild atelectasis or infiltrate cannot be excluded.
[2022-03-23 13:51] VITALS: BP 142/80; BP 148/80; PULSE 79; PULSE 85; RESP 20; TEMP 36.9; O2SAT 92; O2SAT 94; BMI 32.1
--- NOTE | 2022-03-23 13:54 | ED_ITS ---
HPI - SOB/Dyspnea General Chief Complaint: Dyspnea Stated Complaint: SOB, DIFF BREATHING Time Seen by Provider: 03/23/22 13:54 Source: patient and EMS Mode of arrival: EMS Limitations: language barrier and physical limitation History of Present Illness HPI Narrative: 61-year-old Moldovan-speaking female with a past medical history significant for severe COPD on 6L NC x 1 year, diabetes, pulmonary hypertension, CHF, and KELLIE presents to the emergency department with worsening shortness of breath starting this morning. She states that she monitors her O2 levels at home before with her oxygen level typically 90% on 6 L NC. She denies any recent illness, recent travel, sick contacts, fever, chills, chest pain, or diarrhea. MD elicited complaint: shortness of breath Pertinent past history: COPD and congestive heart failure Onset (ago): hour(s) Timing: constant Severity: moderate Exacerbating factors: exertion, movement and coughing Relieving factors: nothing Known history of: COPD and congestive heart failure Associated symptoms: denies other symptoms Treatment prior to arrival: oxygen Related Data Home oxygen amount: other (6 liters) Home Medications Medication Instructions Recorded Confirmed trazodone 50 mg tablet 50 - 100 mg PO BEDTIME PRN Sleep 03/08/20 03/05/22 fluticasone furoate 100 1 puff PO DAILY 12/13/21 03/05/22 mcg-vilanterol 25 mcg/dose inhalation powder Previous Rx's Medication Instructions Recorded quetiapine 50 mg tablet 50 mg PO BID 90 days #180 tabs 12/18/20 sertraline 100 mg tablet 200 mg PO DAILY 90 days #180 tabs 12/18/20 isosorbide mononitrate 30 mg 30 mg PO DAILY 90 days #90 tabs 08/15/21 tablet,extended release 24 hr folic acid 1 mg tablet 1 mg PO DAILY #90 tabs 09/01/21 amlodipine 10 mg tablet 10 mg PO DAILY #30 tabs 10/13/21 montelukast 10 mg tablet 10 mg PO BEDTIME #30 tabs 11/01/21 tiotropium bromide 18 mcg capsule 1 cap inhalation DAILY 30 days #30 11/01/21 with inhalation device (Spiriva inhalations with HandiHaler) meclizine 25 mg tablet 25 mg PO TID PRN dizziness 30 days 12/07/21 #90 tabs carvedilol 12.5 mg tablet 12.5 mg PO BID 90 days #180 tabs 01/29/22 doxycycline hyclate 100 mg tablet 100 mg PO Q12H #14 tabs 02/26/22 prednisone 10 mg tablet See Rx Instructions .Route 02/26/22 .COMPLEX #45 tabs oxycodone-acetaminophen 5 mg-325 1 tab PO Q8H PRN pain 30 days #5 03/05/22 mg tablet tabs losartan 50 mg tablet 100 mg PO DAILY #60 tabs 03/14/22 furosemide 40 mg tablet 40 mg PO DAILY #30 tabs 03/16/22 Allergies Allergy/AdvReac Type Severity Reaction Status Date / Time nicotine [Nicotine] Allergy Mild ITCHING Verified 03/05/22 16:12 WITH THE PATCHES topiramate Allergy Mild inadequealte Verified 03/05/22 16:12 response Review of Systems Review of Systems: Yes all other systems are reviewed and are negative Constitutional: Constitutional: Reports no additional constitutional complaints, Denies chills, Denies fever(s) and Denies poor appetite Eyes: Eyes: Reports no additional eye complaints and Denies change in vision ENT: Reports system reviewed and no additional complaints, except as documented, Reports Normal hearing present, Reports dry mouth and Denies sore throat Cardiovascular: Cardiovascular: Reports no additional cardiovascular complaints, Denies chest pain, Denies Loss of Consciousness and Reports dyspnea Respiratory: Respiratory: Reports no additional respiratory complaints, Denies pain on inspiration and Reports dyspnea Gastrointestinal: Gastrointestinal: Reports no additional gastrointestinal complaints, Reports change in stool character, Reports constipation and Denies diarrhea Genitourinary: Genitourinary: Reports no additional female genitourinary complaints Musculoskeletal: Musculoskeletal: Reports no additional musculoskeletal complaints, Denies numbness and Denies tingling Integumentary/Breasts: Skin/Breast: Reports system reviewed and no additional complaints, except as docu Neurologic: Reports system reviewed and no additional complaints, except as documented, Reports Normal hearing present, Denies numbness and Denies tingling Psychiatric: Psychiatric: Reports no additional psychiatric complaints Hematologic/Lymphatic: Hematologic/Lymphatic: Reports no additional hematologic/lymphatic complaints [facility] Past Medical History Attestation statement: The following information was validated with the patient. Source: old records reviewed and obtained from family Medical History Anxiety Atelectasis, right Chronic respiratory failure Depression Diabetes Essential hypertension HFrEF (heart failure with reduced ejection fraction) HLD (hyperlipidemia) HTN (hypertension) Hypertensive emergency Non-rheumatic mitral regurgitation Nonischemic cardiomyopathy KELILE (obstructive sleep apnea) Osteoporosis Pulmonary hypertension Respiratory failure with hypoxia and hypercapnia Severe chronic obstructive pulmonary disease Supraventricular tachycardia Tobacco abuse Surgical History Bilateral ankle fractures History of total abdominal hysterectomy Family History Family History Father No problems noted. 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 home services: Yes ([employer]) Alcohol intake: never Patient Tobacco Use Status: Current everyday Tobacco user Tobacco use type: Cigarette Cigarettes Per Day: 4 Years Smoked: 50 +/- Smoked in Last 30 Days: Yes e-Cigarette/Vaping Use: Never Used Second Hand Smoke Exposure: No Use of substances other than those prescribed or required for medical reasons: No Advance Directives: Yes Advance Directives on File: Yes Advance Directives Date on File: 04/30/20 service: No Current occupational status: unemployed, retired and disabled Cognitive needs: Yes Hearing needs: No Vision needs: No Physical Exam Vital Signs: Vital Signs: Last Vital Signs Temp 98.2 F 03/23/22 15:57 Pulse 81 03/23/22 17:02 Resp 18 03/23/22 17:02 BP 159/107 H 03/23/22 15:57 Pulse Ox 95 03/23/22 15:57 O2 Del Method 03/23/22 15:57 O2 Flow Rate 4 03/23/22 15:57 Oxygen Flow Rate 4 03/23/22 13:51 BMI result Body Mass Index 32.1 Const: General: cooperative, alert and awake Nutritional Appearance: well nourished Orientation/consciousness: patient oriented x3 Limitations: other limitations (oxygen dependent ) HEENT: Head: Yes normal to inspection, Yes normocephalic and Yes atraumatic Ears: hearing grossly normal bilaterally and external ears normal General nose exam: Normal external nose present Face and sinus: Yes normal facial exam Mouth: moist mucous membranes abnormal (dry mouth) Eyes: General: appearance normal, both eyes and all related structures Visual Wiseman: normal visual wiseman by confrontation Alignment and Position: alignment normal Periorbital: periorbital findings normal Eyelids: Yes eyelids normal Conjunctivae: conjunctivae normal Sclerae: sclerae normal Pupils: Equal, round and reactive pupils present EOM: EOMs intact bilaterally Neck: Neck: Yes normal visual inspection and Yes full ROM Chest: Chest palpation & inspection: normal inspection of the chest Resp: Effort & Inspection: able to speak in complete sentences, no cough, labored and no pursed lip breathing Auscultation: other (diminished lung sounds throughout. Crackles noted in bilateral lower lobes) Cardio: Rate: regular rate Rhythm: regular rhythm GI: Inspection: Yes normal to inspection Auscultation: normal bowel sounds Back/Spine/Pelvis: Cervical Spine: cervical ROM normal Skin: General skin exam: no rashes or lesions noted Neuro: General: patient oriented x3 and gait normal Cranial nerves: Yes Equal, round and reactive pupils present, Yes Bilaterally intact EOM present, Yes Midline tongue present and Yes Normal hearing present Cognition (Neuro): normal cognition Gait exam (Neuro): Normal gait present Motor exam (neuro): 5/5 motor strength present throughout Extrem: General: Yes normal to inspection, Yes full ROM and Yes capillary refill normal Psych: Appearance: grossly normal Mental Status: mental status grossly normal Speech and movement: Normal speech and movement present and Clear speech present Affect: normal affect Attitude: cooperative Thought process: Normal thought process present Thought content: Normal thought content present Insight: Good insight present (Psych) Judgement: Good judgement present (Psych) Medications Administered Generic Name Dose Route Start Last Admin Trade Name Freq PRN Reason Stop Dose Admin Magnesium Sulfate 2 gm in 50 mls @ 25 mls/hr 03/23/22 16:01 03/23/22 16:36 Magnesium Sulfate/H2o IV 03/23/22 18:00 Infused ONCE ONE Infusion Discontinued Medications Generic Name Dose Route Start Last Admin Trade Name Freq PRN Reason Stop Dose Admin Albuterol/Ipratropium 3 ml 03/23/22 15:57 03/23/22 17:02 Albuterol/Iprat 2.5/0.5mg 3 Ml Ampul.Neb INHALE 03/23/22 15:58 3 ml ONCE ONE Administration Methylprednisolone Sodium Succinate 125 mg 03/23/22 15:57 03/23/22 16:10 Methylprednisolone Sod Succ 125 Mg/2 Ml Vial IVPUSH 03/23/22 15:58 125 mg ONCE ONE Administration Potassium Chloride 40 meq 03/23/22 15:57 03/23/22 16:10 Potassium Chloride Er 20 Meq Tab.Er.Prt PO 03/23/22 15:58 40 meq ONCE ONE Administration MDM - SOB/Dyspnea MDM Narrative Medical decision making narrative: 61-year-old Moldovan-speaking female presents to the ED with worsening shortness of breath that began this morning. Blood chemistry with slightly decreased H/H compared to last result. Moderate hypokalemia at 3.2 noted on blood work. KCL 40 mEq given as replacement. EKG sinus rhythm with new PACs from last EKG, QTc less than previous. Chest Xray noted for improvement in right opacification compared to last CXR without acute pathology. Imaging and lab results explained to patient with no unanswered questions. Plan Duoneb, Solumedrol, and 2 gm IV Magnesium given with improvement in shortness of breath. Physical exam consistent with reduction in work of breathing. Patient educated to return to ED with worsening shortness of breath, increased labored breathing, changes in sputum, decreased O2 sat, or any other concerns. Recommended to follow up with primary care provider. Cleared for discharge. Medical Records Attestation: I reviewed the patient's medical records. Lab Data Attestation: I reviewed the patient's lab results. Result diagrams: 03/23/22 14:42 03/23/22 14:42 Labs: Lab Results 03/23/22 03/23/22 03/23/22 Range/Units 14:42 14:42 14:42 WBC 6.7 (4.8-10.8) X10*3/uL RBC 4.18 L (4.20-5.50) X10*6/uL Hgb 10.3 L (12.0-16.0) g/dl Hct 34.3 L (37.0-47.0) % MCV 82.1 (80.0-98.0) fL MCH 24.6 L (27.0-33.0) pg MCHC 30.0 L (31.0-35.0) g/dl RDW 17.1 H (11.0-16.0) % Plt Count 185 (160-400) X10*3/uL MPV 10.5 (9.4-12.3) fL Immature Gran % (Auto) 0.3 (0.0-0.4) % Neut % (Auto) 73.0 (45-73) % Lymph % (Auto) 19.8 L (20-40) % [place] % (Auto) 5.6 (2-11) % Eos % (Auto) 1.2 (0-4) % Baso % (Auto) 0.1 (0-2) % Lymph # (Auto) 1.3 (1.2-4.9) X10*3/uL [place] # (Auto) 0.4 (0.1-1.2) X10*3/uL Eos # (Auto) 0.1 (0.0-0.4) X10*3/uL Baso # (Auto) 0.0 (0.0-0.2) X10*3/uL Abs Immat Gran (auto) 0.02 (0.00-0.03) X10*3/uL Absolute Neuts (auto) 4.9 (2.0-8.3) x10*3/uL Absolute Nucleated RBC 0.000 (0.0-0.012) X10*3/uL Nucleated RBC % (auto) 0.0 (0.0-0.2) /100WBC Sodium 141 (135-145) mmol/L Potassium 3.2 L D (3.3-5.1) mmol/L Chloride 103 (96-108) mmol/L Carbon Dioxide 28 (22-29) mmol/L Anion Gap 13 (12-20) BUN 10 (9-16) mg/dL Creatinine 0.78 (0.5-1.4) mg/dL Estim Creat Clear Calc 66.4 Estimated GFR > 60 Random Glucose 138 H (60-115) mg/dL Calcium 8.6 (8.4-10.2) mg/dL Troponin I High Sens 15.5 (<3.5-17.0) ng/L Influenza Type A (PCR) (Negative) Influenza Type B (PCR) (Negative) RSV RNA Qual (PCR) (Negative) SARS-CoV-2 RNA (RT-PCR) (Negative) 03/23/22 Range/Units 14:42 WBC (4.8-10.8) X10*3/uL RBC (4.20-5.50) X10*6/uL Hgb (12.0-16.0) g/dl Hct (37.0-47.0) % MCV (80.0-98.0) fL MCH (27.0-33.0) pg MCHC (31.0-35.0) g/dl RDW (11.0-16.0) % Plt Count (160-400) X10*3/uL MPV (9.4-12.3) fL Immature Gran % (Auto) (0.0-0.4) % Neut % (Auto) (45-73) % Lymph % (Auto) (20-40) % [place] % (Auto) (2-11) % Eos % (Auto) (0-4) % Baso % (Auto) (0-2) % Lymph # (Auto) (1.2-4.9) X10*3/uL [place] # (Auto) (0.1-1.2) X10*3/uL Eos # (Auto) (0.0-0.4) X10*3/uL Baso # (Auto) (0.0-0.2) X10*3/uL Abs Immat Gran (auto) (0.00-0.03) X10*3/uL Absolute Neuts (auto) (2.0-8.3) x10*3/uL Absolute Nucleated RBC (0.0-0.012) X10*3/uL Nucleated RBC % (auto) (0.0-0.2) /100WBC Sodium (135-145) mmol/L Potassium (3.3-5.1) mmol/L Chloride (96-108) mmol/L Carbon Dioxide (22-29) mmol/L Anion Gap (12-20) BUN (9-16) mg/dL Creatinine (0.5-1.4) mg/dL Estim Creat Clear Calc Estimated GFR Random Glucose (60-115) mg/dL Calcium (8.4-10.2) mg/dL Troponin I High Sens (<3.5-17.0) ng/L Influenza Type A (PCR) NEGATIVE (Negative) Influenza Type B (PCR) NEGATIVE (Negative) RSV RNA Qual (PCR) NEGATIVE (Negative) SARS-CoV-2 RNA (RT-PCR) NEGATIVE (Negative) Imaging Data Chest x-ray: Attestation: I personally reviewed and interpreted this imaging study as follows: My impression: No acute changes or pathology Radiologist's impression: EXAMINATION: XR CHEST CLINICAL INFORMATION: Shortness of breath. COMPARISON: 02/23/2022 and 12/13/2021 chest radiograph. TECHNIQUE: Frontal view of the chest was obtained. FINDINGS: Mild hazy opacification is seen at the right lung base. The right upper lung field and left lung are clear. XR/XR chest 1V IMPRESSION: Mild hazy opacification at the right lung base represents interval improvement from previous studies suggesting chronic changes. Residual mild atelectasis or infiltrate cannot be excluded. ? Dictated By: Rogers Srinivasan MD Signed By: <Electronically signed by Rogers Srinivasan MD in OV> 03/23/22 1507 DD/ 14 TD/TT:? Ceramic Chemist: ECG Data Attestation: I personally reviewed and interpreted this ECG as follows: (SR with PACs) Interpretation: Test Reason : SOB Blood Pressure : / mmHG Vent. Rate : 079 BPM ? ? Atrial Rate : 079 BPM ?? P-R Int : 128 ms? QRS Dur : 120 ms ? ? QT Int : 452 ms ? ? ? P-R-T Axes : 004 014 012 degrees ?? QTc Int : 518 ms ? Sinus rhythm with Premature atrial complexes RSR' or QR pattern in V1 suggests right ventricular conduction delay Borderline ECG When compared with ECG of 23-FEB-2022 11:26, Premature atrial complexes are now Present ? Referred By: Aleisha Obrien ? Electronically Signed By: Dictated By: Signed By: DD/ 141 TD/TT: 03/23/22 141 Ceramic Chemist: Discharge Plan Discharge Clinical Impression: Acute exacerbation of chronic obstructive pulmonary disease (COPD), Acute hypokalemia Patient Disposition: Home, Self-Care Instructions: Potassium Content of Foods List (ED), Hypokalemia (ED), COPD (Chronic Obstructive Pulmonary Disease) (ED) Prescriptions: No Action sertraline 100 mg tablet 200 mg PO DAILY 90 Days Qty: 180 1RF quetiapine 50 mg tablet 50 mg PO BID 90 Days Qty: 180 1RF isosorbide mononitrate 30 mg tablet extended release 24 hr 30 mg PO DAILY 90 Days Qty: 90 3RF Protocol: Hold for SBP< HOLD for SBP < : 90 montelukast 10 mg tablet 10 mg PO BEDTIME Qty: 30 11RF Spiriva with HandiHaler 18 mcg capsule, w/inhalation device 1 cap inhalation DAILY 30 Days Qty: 30 5RF meclizine 25 mg tablet 25 mg PO TID PRN (Reason: dizziness) 30 Days Qty: 90 0RF carvedilol 12.5 mg tablet 12.5 mg PO BID 90 Days Qty: 180 1RF Rx Instructions: must administer with a meal/food losartan 50 mg tablet 100 mg PO DAILY Qty: 60 0RF Protocol: Hold for SBP< HOLD for SBP < : 90 furosemide 40 mg tablet 40 mg PO DAILY Qty: 30 3RF trazodone 50 mg tablet 50 - 100 mg PO BEDTIME PRN (Reason: Sleep) folic acid 1 mg Tablet 1 mg PO DAILY Qty: 90 4RF amlodipine 10 mg Tablet 10 mg PO DAILY Qty: 30 0RF Protocol: Hold for SBP< HOLD for SBP < : 90 fluticasone furoate-vilanterol 100-25 mcg/dose blister with device 1 puff PO DAILY doxycycline hyclate 100 mg Tablet 100 mg PO Q12H Qty: 14 0RF prednisone 10 mg tablet See Rx Instructions .Route .COMPLEX Qty: 45 0RF Rx Instructions: 10 mg orally; 5 tabs p.o. daily x3 days; 4 tabs p.o. daily x3 days; 3 tabs daily x3 days; 2 tabs daily x3 days; 1 tab daily x3 days oxycodone-acetaminophen 5-325 mg tablet 1 tab PO Q8H PRN (Reason: pain) 30 Days Qty: 5 0RF Rx Instructions: Partial Fill upon patient request. Referrals: [facility] [place]Provider Group] [facility] [place] [facility] [Provider Group] [facility] [place] [facility] [Provider Group] Print Language: Eritrean
--- NOTE | 2022-03-23 13:55 | ECG_ITS ---
Test Reason : SOB Blood Pressure : / mmHG Vent. Rate : 079 BPM Atrial Rate : 079 BPM P-R Int : 128 ms QRS Dur : 120 ms QT Int : 452 ms P-R-T Axes : 004 014 012 degrees QTc Int : 518 ms Sinus rhythm with Premature atrial complexes RSR' or QR pattern in V1 suggests right ventricular conduction delay Borderline ECG When compared with ECG of 23-FEB-2022 11:26, Premature atrial complexes are now Present Heart rate has decreased Referred By: Aleisha Obrien Electronically Signed By:REGINALD DOBBS MD
[2022-03-23 14:46] LABS: MANUAL DIFF FLAG NO
[2022-03-23 14:48] LABS: Basophils Percent Auto 0.1 % (0-2); Eosinophils Absolute Auto 0.1 X10*3/uL (0.0-0.4); Eosinophils Percent Auto 1.2 % (0-4); Hematocrit 34.3 % (37.0-47.0); Hemoglobin 10.3 g/dl (12.0-16.0); Imm Gran Abs Auto 0.02 X10*3/uL (0.00-0.03); Imm Gran Pct Auto 0.3 % (0.0-0.4); Lymphocytes Absolute Auto 1.3 X10*3/uL (1.2-4.9); Lymphocytes Percent Auto 19.8 % (20-40); Mean Corpuscular Hemoglobin 24.6 pg (27.0-33.0); Mean Corpuscular Volume 82.1 fL (80.0-98.0); Mean Platelet Volume 10.5 fL (9.4-12.3); Monocytes Absolute Auto 0.4 X10*3/uL (0.1-1.2); Monocytes Percent Auto 5.6 % (2-11); Neutrophils Absolute Auto 4.9 x10*3/uL (2.0-8.3); Platelet Count 185 X10*3/uL (160-400); Red Blood Count 4.18 X10*6/uL (4.20-5.50); Red Cell Distribution Width 17.1 % (11.0-16.0); White Blood Count 6.7 X10*3/uL (4.8-10.8)
[2022-03-23 15:02] LABS: Anion Gap 13 (12-20); Blood Urea Nitrogen 10 mg/dL (9-16); Calcium 8.6 mg/dL (8.4-10.2); Carbon Dioxide 28 mmol/L (22-29); Chloride 103 mmol/L (96-108); Creatinine Clr Calc Pharmacy 66.4; Estimated Glomerular Filt Rate > 60; Glucose Random 138 mg/dL (60-115); Potassium 3.2 mmol/L (3.3-5.1); Sodium 141 mmol/L (135-145)
[2022-03-23 15:10] LABS: Troponin-I High Sensitivity 15.5 ng/L (<3.5-17.0)
[2022-03-23 15:28] LABS: Influenza A PCR NEGATIVE (Negative); Influenza B PCR NEGATIVE (Negative); Resp Syncy Virus RNA Qual PCR NEGATIVE (Negative); SARS COV2 PCR INHOUSE NEGATIVE (Negative)
[2022-03-23 15:57] VITALS: BP 159/107; PULSE 79; RESP 18; TEMP 36.8; O2SAT 95
[2022-03-23] MEDS: methylPREDNISolone Sod Succ 125 MG/2 ML VIAL IVPUSH (16:10)
[2022-03-23] MEDS: Potassium Chloride ER 20 MEQ TAB.ER.PRT 40 MEQ PO (16:10)
[2022-03-23] MEDS: Magnesium Sulfate/H2O 2 GM/50 ML PIGGYBACK IV (16:10)
[2022-03-23 17:02] VITALS: PULSE 81; RESP 18; O2SAT 94
[2022-03-23] MEDS: Albuterol/Iprat 2.5/0.5MG 3 ML AMPUL.NEB INHALE (17:02)
== END 2022-03-23 18:28 | disposition home or self-care (01) ==
PROVIDERS: Nurse Practitioner Family; Emergency Provider Emergency Medicine Emergency Medical Services
DX: J44.1 Chronic obstructive pulmonary disease with (acute) exacerbation (principal); E87.6 Hypokalemia; R06.02 Shortness of breath; F17.210 Nicotine dependence, cigarettes, uncomplicated; Z20.822 Contact with and (suspected) exposure to COVID-19; Z71.6 Tobacco abuse counseling; Z79.899 Other long term (current) drug therapy
CPT/HCPCS: 0241U; 36415; 71045; 80048; 84484; 85025; 93005; 94640; 96365; 96366; 96375; 99285; J2930; J3475

== ENCOUNTER 2022-04-28 18:22 | Inpatient (IN) | payer OTHER, SELFPAY ==
[2022-04-28] VITALS (9 sets, daily range): BP systolic 99–171; BP diastolic 75–95; PULSE 85–120; RESP 16–28; O2SAT 77–96; BMI 45.7
--- NOTE | 2022-04-28 | ECG_ITS ---
Test Reason : VTACH Blood Pressure : / mmHG Vent. Rate : 113 BPM Atrial Rate : 113 BPM P-R Int : 134 ms QRS Dur : 128 ms QT Int : 372 ms P-R-T Axes : 051 045 -64 degrees QTc Int : 510 ms Poor data quality Sinus tachycardia Right bundle branch block T wave abnormality, consider inferior ischemia Abnormal ECG When compared to the previous EKG of Poor data quality in current ECG precludes serial comparison Referred By: Brannon Hopkins Electronically Signed By:KEVIN ODELL MD
--- NOTE | ~2022-04-28 | US_ITS ---
EXAMINATION: UNILATERAL TRIPLEX SCANNING OF THE RIGHT LOWER EXTREMITY CLINICAL INFORMATION: Right lower extremity swelling. COMPARISON: 02/23/2022 TECHNIQUE: Color-flow triplex imaging with spectral analysis and compression Doppler were performed on the right lower extremity. FINDINGS: Respiratory variation, normal compression and augmented flow are noted throughout the lower extremity. The visualized common femoral vein, superficial femoral vein, profunda femoral vein, popliteal vein and mid calf peroneal and posterior tibial venous segments show no evidence of deep venous thrombosis. There is no Acevedo's cyst. US/US venous duplex LE RT IMPRESSION: Normal triplex scan without evidence of deep venous thrombosis involving the right lower extremity.
--- NOTE | 2022-04-28 18:38 | PC.NURSE ---
Pt brought in via EMS for dyspnea, pt wears oxygen at home 70's on 3L. Brought in on CPAP. Pt reports waiting until the last minute to address her difficulty breathing. Pt also reports falling yesterday, bruise noted to chin. States pain in left arm and side from fall. Respiratory at bedside, placed pt on CPAP.
--- NOTE | 2022-04-28 19:13 | ECG_ITS ---
Test Reason : DYSPNEA Blood Pressure : / mmHG Vent. Rate : 083 BPM Atrial Rate : 083 BPM P-R Int : 130 ms QRS Dur : 136 ms QT Int : 432 ms P-R-T Axes : -10 016 -29 degrees QTc Int : 507 ms Normal sinus rhythm Right bundle branch block Abnormal ECG When compared with ECG of 23-MAR-2022 14:17, Premature atrial complexes are no longer Present Right bundle branch block has replaced RSR' pattern in V1 Referred By: Brannon Hopkins Electronically Signed By:Kemar Curry
--- NOTE | 2022-04-28 19:16 | ED.SOB ---
HPI - SOB/Dyspnea General Chief Complaint: Dyspnea Stated Complaint: sob Time Seen by Provider: 04/28/22 18:40 Source: patient History of Present Illness HPI Narrative: patient with a long history of COPD, oxygen dependent at home at 6 L, with multiple presentations for dyspnea in the past, presents with 1 week of increasing dyspnea. She denies feeling sick. Some increasing cough but no sputum or fevers. She states she slipped and fell on her left side yesterday now has pain from her shoulder to her chest and her left knee. she states she is unable ambulate secondary to pain. She complains of pain on the left side of her chest which is worse with movement, palpation, coughing. Is sharp. No abdominal pain. No nausea vomiting diarrhea. Related Data Home Medications Medication Instructions Recorded Confirmed trazodone 50 mg tablet 50 - 100 mg PO BEDTIME PRN Sleep 03/08/20 03/05/22 fluticasone furoate 100 1 puff PO DAILY 12/13/21 03/05/22 mcg-vilanterol 25 mcg/dose inhalation powder Previous Rx's Medication Instructions Recorded quetiapine 50 mg tablet 50 mg PO BID 90 days #180 tabs 12/18/20 sertraline 100 mg tablet 200 mg PO DAILY 90 days #180 tabs 12/18/20 isosorbide mononitrate 30 mg 30 mg PO DAILY 90 days #90 tabs 08/15/21 tablet,extended release 24 hr folic acid 1 mg tablet 1 mg PO DAILY #90 tabs 09/01/21 amlodipine 10 mg tablet 10 mg PO DAILY #30 tabs 10/13/21 montelukast 10 mg tablet 10 mg PO BEDTIME #30 tabs 11/01/21 tiotropium bromide 18 mcg capsule 1 cap inhalation DAILY 30 days #30 11/01/21 with inhalation device (Spiriva inhalations with HandiHaler) meclizine 25 mg tablet 25 mg PO TID PRN dizziness 30 days 12/07/21 #90 tabs carvedilol 12.5 mg tablet 12.5 mg PO BID 90 days #180 tabs 01/29/22 doxycycline hyclate 100 mg tablet 100 mg PO Q12H #14 tabs 02/26/22 prednisone 10 mg tablet See Rx Instructions .Route 02/26/22 .COMPLEX #45 tabs oxycodone-acetaminophen 5 mg-325 1 tab PO Q8H PRN pain 30 days #5 03/05/22 mg tablet tabs losartan 50 mg tablet 100 mg PO DAILY #60 tabs 03/14/22 furosemide 40 mg tablet 40 mg PO DAILY #30 tabs 03/16/22 Allergies Allergy/AdvReac Type Severity Reaction Status Date / Time nicotine [Nicotine] Allergy Mild ITCHING Verified 03/05/22 16:12 WITH THE PATCHES topiramate Allergy Mild inadequealte Verified 03/05/22 16:12 response Review of Systems Constitutional: Comments: No fevers or chills or malaise ENT: Comments: no rhinorrhea Cardiovascular: Comments: musculoskeletal type chest pain as described Respiratory: Comments: dyspnea with long history of O2 dependent COPD Gastrointestinal: Comments: no abdominal pain or nausea vomiting Musculoskeletal: Comments: left shoulder pain. Left knee pain Integumentary/Breasts: Comments: bruising to her chin Neurologic: Comments: no focal weakness PMFSH Past Medical History Medical History Anxiety Atelectasis, right Chronic respiratory failure Depression Diabetes Essential hypertension HFrEF (heart failure with reduced ejection fraction) HLD (hyperlipidemia) HTN (hypertension) Hypertensive emergency Non-rheumatic mitral regurgitation Nonischemic cardiomyopathy KELLIE (obstructive sleep apnea) Osteoporosis Pulmonary hypertension Respiratory failure with hypoxia and hypercapnia Severe chronic obstructive pulmonary disease Supraventricular tachycardia Tobacco abuse Surgical History Bilateral ankle fractures History of total abdominal hysterectomy Family History Family History Father No problems noted. 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 home services: Yes ([employer]) Alcohol intake: never Patient Tobacco Use Status: Current everyday Tobacco user Tobacco use type: Cigarette Cigarettes Per Day: 4 Years Smoked: 50 +/- e-Cigarette/Vaping Use: Never Used Second Hand Smoke Exposure: No Advance Directives: No Advance Directives Information Provided: No Advance Directives Date on File: 04/30/20 service: No Current occupational status: unemployed, retired and disabled Cognitive needs: Yes Hearing needs: No Vision needs: No Physical Exam Vital Signs: Vital Signs: Last Vital Signs Pulse 97 04/28/22 19:07 Resp 16 04/28/22 20:14 BP 171/90 H 04/28/22 19:07 Pulse Ox 93 04/28/22 19:07 O2 Del Method 04/28/22 19:07 BMI result Body Mass Index 45.7 Course Course Course Narrative: 20:23. Lab work so far reveals CBC with no changes from prior. Chemistries with findings significant for troponin o 26. This is higher than her most recent but consistent with multiple prior troponins. EKG shows right bundle branch block but no significant change from priors. Venous blood gas shows no of evidence of CO2 retention. PCO2 of 42 with a pH is 7.47. 21:42. Patient is feeling much better after treatment. She would like to trial stopping the BiPAP. Respiratory therapy page. 22:29. Patient is off the BiPAP and feeling better than earlier. She states she does not feel like she is ready to go home however. Given orally significant hypoxia, will hospitalize in case of decompensation Medications Administered Discontinued Medications Generic Name Dose Route Start Last Admin Trade Name Freq PRN Reason Stop Dose Admin Hydromorphone HCl 0.5 mg 04/28/22 19:12 04/28/22 19:28 Hydromorphone Hcl 0.5 Mg/0.5 Ml Syringe IVPUSH 04/28/22 19:13 0.5 mg ONCE ONE Administration Protocol Methylprednisolone Sodium Succinate 125 mg 04/28/22 19:12 04/28/22 19:28 Methylprednisolone Sod Succ 125 Mg/2 Ml Vial IVPUSH 04/28/22 19:13 125 mg ONCE ONE Administration Medical Decision Making Medical Decision Making [facility] Narrative: patient with hypoxia and history of severe COPD. Started on BiPAP immediately upon arrival. She has feelings somewhat better on the BiPAP. She complains of pain as stated above. Rule out shoulder fracture versus dislocation, rib fractures, pneumothorax, pneumonia, bronchitis, left knee sprain versus fracture. Rule out CO2 retention. Venous gas ordered Lab Data Result Diagrams: 04/28/22 19:34 04/28/22 19:34 Labs: Lab Results 04/28/22 04/28/22 04/28/22 Range/Units 19:34 19:34 19:34 WBC 10.2 (4.8-10.8) X10*3/uL RBC 4.31 (4.20-5.50) X10*6/uL Hgb 10.6 L (12.0-16.0) g/dl Hct 34.9 L (37.0-47.0) % MCV 81.0 (80.0-98.0) fL MCH 24.6 L (27.0-33.0) pg MCHC 30.4 L (31.0-35.0) g/dl RDW 15.6 (11.0-16.0) % Plt Count 157 L (160-400) X10*3/uL MPV 10.4 (9.4-12.3) fL Immature Gran % (Auto) 0.3 (0.0-0.4) % Neut % (Auto) 81.7 H (45-73) % Lymph % (Auto) 9.8 L (20-40) % [place] % (Auto) 6.4 (2-11) % Eos % (Auto) 1.6 (0-4) % Baso % (Auto) 0.2 (0-2) % Lymph # (Auto) 1.0 L (1.2-4.9) X10*3/uL [place] # (Auto) 0.7 (0.1-1.2) X10*3/uL Eos # (Auto) 0.2 (0.0-0.4) X10*3/uL Baso # (Auto) 0.0 (0.0-0.2) X10*3/uL Abs Immat Gran (auto) 0.03 (0.00-0.03) X10*3/uL Absolute Neuts (auto) 8.4 H (2.0-8.3) x10*3/uL Absolute Nucleated RBC 0.000 (0.0-0.012) X10*3/uL Nucleated RBC % (auto) 0.0 (0.0-0.2) /100WBC PT 12.3 (10.0-13.1) SEC INR 1.1 (0.9-1.1) VBG pH (7.32-7.43) VBG pCO2 mmHg VBG pO2 mmHg VBG HCO3 (22-26) mmol/L VBG O2 Saturation % VBG Base Excess mmol/L Sodium 138 (135-145) mmol/L Potassium 3.5 (3.3-5.1) mmol/L Chloride 97 (96-108) mmol/L Carbon Dioxide 31 H (22-29) mmol/L Anion Gap 14 (12-20) BUN 10 D (9-16) mg/dL Creatinine 0.85 (0.5-1.4) mg/dL Estim Creat Clear Calc 83.7 Estimated GFR > 60 Random Glucose 151 H (60-115) mg/dL Lactic Acid (0.5-2.0) mmol/L Calcium 9.0 (8.4-10.2) mg/dL Total Bilirubin 0.6 (0.0-1.0) mg/dL AST 30 D (5-31) U/L ALT 12 (0-31) U/L Alkaline Phosphatase 155 H (39-117) U/L Troponin I High Sens (<3.5-17.0) ng/L Total Protein 7.8 (6.5-8.0) g/dL Albumin 4.0 (3.5-5.0) g/dL 04/28/22 04/28/22 04/28/22 Range/Units 19:34 19:34 19:40 WBC (4.8-10.8) X10*3/uL RBC (4.20-5.50) X10*6/uL Hgb (12.0-16.0) g/dl Hct (37.0-47.0) % MCV (80.0-98.0) fL MCH (27.0-33.0) pg MCHC (31.0-35.0) g/dl RDW (11.0-16.0) % Plt Count (160-400) X10*3/uL MPV (9.4-12.3) fL Immature Gran % (Auto) (0.0-0.4) % Neut % (Auto) (45-73) % Lymph % (Auto) (20-40) % [place] % (Auto) (2-11) % Eos % (Auto) (0-4) % Baso % (Auto) (0-2) % Lymph # (Auto) (1.2-4.9) X10*3/uL [place] # (Auto) (0.1-1.2) X10*3/uL Eos # (Auto) (0.0-0.4) X10*3/uL Baso # (Auto) (0.0-0.2) X10*3/uL Abs Immat Gran (auto) (0.00-0.03) X10*3/uL Absolute Neuts (auto) (2.0-8.3) x10*3/uL Absolute Nucleated RBC (0.0-0.012) X10*3/uL Nucleated RBC % (auto) (0.0-0.2) /100WBC PT (10.0-13.1) SEC INR (0.9-1.1) VBG pH 7.47 H (7.32-7.43) VBG pCO2 42 mmHg VBG pO2 35 mmHg VBG HCO3 31 H (22-26) mmol/L VBG O2 Saturation 55.0 % VBG Base Excess 7.0 mmol/L Sodium (135-145) mmol/L Potassium (3.3-5.1) mmol/L Chloride (96-108) mmol/L Carbon Dioxide (22-29) mmol/L Anion Gap (12-20) BUN (9-16) mg/dL Creatinine (0.5-1.4) mg/dL Estim Creat Clear Calc Estimated GFR Random Glucose (60-115) mg/dL Lactic Acid 0.9 (0.5-2.0) mmol/L Calcium (8.4-10.2) mg/dL Total Bilirubin (0.0-1.0) mg/dL AST (5-31) U/L ALT (0-31) U/L Alkaline Phosphatase (39-117) U/L Troponin I High Sens 26.1 H D (<3.5-17.0) ng/L Total Protein (6.5-8.0) g/dL Albumin (3.5-5.0) g/dL Discharge Plan Discharge Clinical Impression: Severe chronic obstructive pulmonary disease Patient Disposition: Admitted As Inpatient Prescriptions: No Action sertraline 100 mg tablet 200 mg PO DAILY 90 Days Qty: 180 1RF quetiapine 50 mg tablet 50 mg PO BID 90 Days Qty: 180 1RF isosorbide mononitrate 30 mg tablet extended release 24 hr 30 mg PO DAILY 90 Days Qty: 90 3RF Protocol: Hold for SBP< HOLD for SBP < : 90 montelukast 10 mg tablet 10 mg PO BEDTIME Qty: 30 11RF Spiriva with HandiHaler 18 mcg capsule, w/inhalation device 1 cap inhalation DAILY 30 Days Qty: 30 5RF meclizine 25 mg tablet 25 mg PO TID PRN (Reason: dizziness) 30 Days Qty: 90 0RF carvedilol 12.5 mg tablet 12.5 mg PO BID 90 Days Qty: 180 1RF Rx Instructions: must administer with a meal/food losartan 50 mg tablet 100 mg PO DAILY Qty: 60 0RF Protocol: Hold for SBP< HOLD for SBP < : 90 furosemide 40 mg tablet 40 mg PO DAILY Qty: 30 3RF trazodone 50 mg tablet 50 - 100 mg PO BEDTIME PRN (Reason: Sleep) folic acid 1 mg Tablet 1 mg PO DAILY Qty: 90 4RF amlodipine 10 mg Tablet 10 mg PO DAILY Qty: 30 0RF Protocol: Hold for SBP< HOLD for SBP < : 90 fluticasone furoate-vilanterol 100-25 mcg/dose blister with device 1 puff PO DAILY doxycycline hyclate 100 mg Tablet 100 mg PO Q12H Qty: 14 0RF prednisone 10 mg tablet See Rx Instructions .Route .COMPLEX Qty: 45 0RF Rx Instructions: 10 mg orally; 5 tabs p.o. daily x3 days; 4 tabs p.o. daily x3 days; 3 tabs daily x3 days; 2 tabs daily x3 days; 1 tab daily x3 days oxycodone-acetaminophen 5-325 mg tablet 1 tab PO Q8H PRN (Reason: pain) 30 Days Qty: 5 0RF Rx Instructions: Partial Fill upon patient request.
[2022-04-28 19:41] LABS: MANUAL DIFF FLAG NO
[2022-04-28 19:49] LABS: Basophils Percent Auto 0.2 % (0-2); Eosinophils Absolute Auto 0.2 X10*3/uL (0.0-0.4); Eosinophils Percent Auto 1.6 % (0-4); Hematocrit 34.9 % (37.0-47.0); Hemoglobin 10.6 g/dl (12.0-16.0); Imm Gran Abs Auto 0.03 X10*3/uL (0.00-0.03); Imm Gran Pct Auto 0.3 % (0.0-0.4); Lymphocytes Percent Auto 9.8 % (20-40); Mean Corpuscular HGB Conc 30.4 g/dl (31.0-35.0); Mean Corpuscular Hemoglobin 24.6 pg (27.0-33.0); Mean Platelet Volume 10.4 fL (9.4-12.3); Monocytes Absolute Auto 0.7 X10*3/uL (0.1-1.2); Monocytes Percent Auto 6.4 % (2-11); Neutrophils Absolute Auto 8.4 x10*3/uL (2.0-8.3); Neutrophils Percent Auto 81.7 % (45-73); Platelet Count 157 X10*3/uL (160-400); Red Blood Count 4.31 X10*6/uL (4.20-5.50); Red Cell Distribution Width 15.6 % (11.0-16.0); White Blood Count 10.2 X10*3/uL (4.8-10.8)
[2022-04-28 19:55] LABS: Lactic Acid 0.9 mmol/L (0.5-2.0)
[2022-04-28 20:02] LABS: Alanine Aminotransferase 12 U/L (0-31); Alkaline Phosphatase 155 U/L (39-117); Anion Gap 14 (12-20); Aspartate Amino Transferase 30 U/L (5-31); Bilirubin Total 0.6 mg/dL (0.0-1.0); Blood Urea Nitrogen 10 mg/dL (9-16); Carbon Dioxide 31 mmol/L (22-29); Chloride 97 mmol/L (96-108); Creatinine Clr Calc Pharmacy 83.7; Estimated Glomerular Filt Rate > 60; Glucose Random 151 mg/dL (60-115); Potassium 3.5 mmol/L (3.3-5.1); Sodium 138 mmol/L (135-145); Total Protein 7.8 g/dL (6.5-8.0)
[2022-04-28 20:03] LABS: Troponin-I High Sensitivity 26.1 ng/L (<3.5-17.0)
[2022-04-28 20:05] LABS: INTERNATIONAL NORM RATIO 1.1 (0.9-1.1); Prothrombin Time 12.3 SEC (10.0-13.1)
--- NOTE | 2022-04-28 20:57 | PC.NURSE ---
Assumed care of patient. patient resting quietly no respiratory distress, able to speak in full sentences
--- NOTE | 2022-04-28 22:37 | MHC.EDTECH ---
Assisted patient onto bedpan.
--- NOTE | 2022-04-28 23:00 | MHC.EDTECH ---
At 2300, patient went into vtach, HR 211. Pt was restless and anxious. Provider and respiratory therapy were at bedside. Pads placed on pt. Amiodarone 150 mg administered, Ativan 2 mg administered. At 2307, HR at 131. At 2309, HR came down to 118 with bp 153/89 and 27RR. At 2311, EKG was done HR of 112 and 23RR. At 2333, bp 130/94 and HR 106. Pt is arousable. Report given to Ji.
[2022-04-28 23:22] LABS: Influenza A PCR NEGATIVE (Negative); Influenza B PCR NEGATIVE (Negative); Resp Syncy Virus RNA Qual PCR NEGATIVE (Negative); SARS COV2 PCR INHOUSE NEGATIVE (Negative)
--- NOTE | 2022-04-28 23:47 | P.HPCC_ITS ---
History of Present Illness Date of Service: 04/28/22 Attending physician on admission: Anthony Whitaker Chief Complaint: HYPOXIC RESP FAILURE; COPD EXA; V TAC SOURCE OF HISTORY: ?Patient's chart and ER physician ? HPI: ?Patient is 61-year-old female with underlying history of COPD dependent on oxygen at 6 L nasal cannula, hypertension, nonischemic cardiomyopathy, CHF with moderate to severe LV systolic dysfunction and ejection fraction of 30-35% , moderate mitral regurgitation, moderately elevated right ventricular systolic pressure, severe global hypokinesis. ?per echo in February of 2021. ?She also has anxiety, depression, diabetes, hypertension, obstructive sleep apnea, oste oporosis, history of SVT and tobacco abuse. ? Patient had presented to emergency room yesterday evening with complaints of shortness of breath, increased cough but no fever or sputum production.? She had also experience a mechanical fall at home after slipping and falling and reported shoulder, chest and left knee pain. ?Her workup in the ER was not significant with session hypoxia, other vital signs were otherwise stable, no white count, no electrolyte abnormality low magnesium had not been checked.? Her respiratory panel was completely negative including COVID. It was reported by the emergency physician the patient initially had an O2 sat in the mid 70s to 80s, she had been placed on CPAP and did well with that so much that they removed it, patient had received steroids, Dilaudid and Ativan.? About 3 hours later the patient suddenly became dyspneic leading to place her on BiPAP, at the time also the patient had developed a 5 minute run of ventricular tachycardia with a pulse for which she received 150 mg of amiodarone converting back to sinus rhythm. ? Her trauma survey due to her falls was unrevealing, however repeat chest x-ray did showed possibility of mid right lung atelectasis.? Initial venous blood gas was unrevealing but subsequent ABG showed a pH of 7.41, pCO2 38, PO2 48 HC03 of 25.? At this time magnesium had been added and it was low at 1.5.? I discussed the case with the respiratory therapist who increased her FiO2 to 50% and she is now satting in the mid 90s and quite comfortable. ? ROS:? Unable to obtain ? Past Medical History:? As above ? Past Surgical History: Bilateral ankle fractures Total abdominal hysterectomy ? Family history:? Mother had hypertension and of liver cancer. ? Social History: ?History of over 50 pack-year history, still smokes about 5 cigarettes per day.? Disable.? No history of alcohol use. ? CODE STATUS: FULL CODE ? Allergies: ?Nicotine patches (H) topiramate (redness) ? Home Medications: See Med Rec ? PHYSICAL EXAM: VS: ?117/77, 88, 18, 97% on BiPAP General:? Alert oriented x3 no acute distress.? Speaking full sentences.? Speech is well articulated, thought process is coherent.? Following all commands. Skin:? Of all hematoma noted over the frontal aspect of her chin without actual laceration. Otherwise no erythema, edema, lesions, clubbing or cyanosis. HEENT:? Head is normocephalic, pupils equal round reactive to light accommodation bilaterally.? Extraocular movements appear intact.? Buccal mucosa is moist, Neck is supple without lymphadenopathy. Cardiac:? Clear S1-S2, no murmurs rubs or gallops. Pulmonary:? Diminished but clear lung sounds bilaterally without rales, rhonchi, there is minimal expiratory wheezing. Abdomen:? Protuberant, positive bowel sounds in all 4 quadrants.? Soft, nontender, no rebound or guarding.? Musculoskeletal:? Moving all 4 extremities upon request a major joints, there is no crepitus or tenderness.? The strength is 5/5 bilaterally and throughout all 4 extremities.? There is no leg edema , no calf tenderness , no leg asymmetry.? Gait not assessed at this point. Neurologic:? As above, cranial nerves 2-12 are grossly intact.? No focal deficits noted. Motor strength as above.? Vascular:? 2+ pulses upper and lower extremities distally. ? SIGNIFICANT LABORATORY DATA:? As above ? REVIEW OF IMAGES: REPEAT CXR IMPRESSION: 1.? Mild hazy opacity in the medial right lung base, likely mild atelectasis. 2.? No acute pulmonary process. ? IMPRESSION: LEFT KNEE: No acute abnormalities. ? LEFT SHOULDER: 1.? No acute abnormalities. 2.? Diffuse osteopenia. ? CHEST: 1.? No acute cardiopulmonary abnormalities. 2.? Findings suspicious for centrilobular emphysema. 3.? No rib fractures identified. ? EKG REVIEW: ?Sinus rhythm with PACs, 79 beats per minute.? No ST elevations, no ST depressions noted.? QTC 518.? No comparison. ? ASSESSMENT : 1. Acute hypoxic respiratory failure 2. Chronic COPD with acute exacerbation 3. Nonsustained V-tach 4. Clinical dehydration 5. Acute hypomagnesemia 6. Reactive troponin abnormality 7. Nonischemic cardiomyopathy and valvular disease with ejection fraction of 30- 35% 8. Right lung atelectasis, unlikely to represent pneumonia and deff NO SEPSIS suspected. ? PLAN OF CARE: Admit to ICU, I and O's, continue with BiPAP support which I do not expect it will be for long periods of time asn I think her issue was low respiratory drive after getting Ativan.? Start her on Solu-Medrol IV, albuterol p.r.n. and scheduled DuoNebs.? Will consider placing her on doxycycline (no Zithromax due to further QT prolongation), IV magnesium has been ordered, will repeat troponin, gentle IV fluids keeping in mind her underlying nonischemic cardiomyopathy and low EF is not a candidate for bolus resucitation as she is at risk of CHF.? Will continue with amiodarone. ?Even though her potassium is borderline she will get a single IV dose. ?ABSOLUTELY NO MORE SEDATIVES (ATIVAN), will use opiates for work of breathing.? Insulin sliding scale. ? GI PROPHYLAXIS: ?IV ppi DVT PROPHYLAXIS:? Heparin subQ q.8 hours. ? Critical care time used for critical evaluation of this patient, diagnosis, treatment and coordination of care, review her records and documentation TOTAL CRITICAL CARE TIME?90 MIN . discussion and coordination with consultants, completely separate from any procedures performed. Patient's care was discussed in detail with Dr. Whitaker.? He is aware of all the above as well as the plan of care for this patient. [facility] Past Medical History Medical History Anxiety Atelectasis, right Chronic respiratory failure Depression Diabetes Essential hypertension HFrEF (heart failure with reduced ejection fraction) HLD (hyperlipidemia) HTN (hypertension) Hypertensive emergency Non-rheumatic mitral regurgitation Nonischemic cardiomyopathy KELLIE (obstructive sleep apnea) Osteoporosis Pulmonary hypertension Respiratory failure with hypoxia and hypercapnia Severe chronic obstructive pulmonary disease Supraventricular tachycardia Tobacco abuse Family History Family History Father No problems noted. Mother Liver cancer Hypertension Surgical History Surgical History Bilateral ankle fractures History of total abdominal hysterectomy Social History Social History Household Members: None Household Members Other:: 1 Housing: Apartment Do you presently have visiting nurse or other home services: Yes ([employer] RN) Unable to assess alcohol history related to: Unable to respond Alcohol intake: never Patient Tobacco Use Status: Current everyday Tobacco user Tobacco use type: Cigarette Cigarettes Per Day: 4 Years Smoked: 50 +/- e-Cigarette/Vaping Use: Never Used Second Hand Smoke Exposure: No Use of substances other than those prescribed or required for medical reasons: Unable to respond Currently Displaying Signs/Symptoms of Drug Intoxication Withdrawal: No Advance Directives: No Advance Directives Information Provided: No Advance Directives Date on File: 04/30/20 Do you have thoughts of harming others: None Do you have a plan to hurt others: No Plan Patient : No : No service: No Current occupational status: unemployed, retired and disabled Cognitive needs: Yes Hearing needs: No Vision needs: No Meds Allergies Allergy/AdvReac Type Severity Reaction Status Date / Time nicotine [Nicotine] Allergy Mild ITCHING Verified 03/05/22 16:12 WITH THE PATCHES topiramate Allergy Mild inadequealte Verified 03/05/22 16:12 response Active Medications: Current Medications Heparin Sodium (Porcine) (Heparin Sodium,Porcine 5,000 Unit/Ml Vial) 5,000 unit SUBCUT Q8H [place] Potassium Chloride (Potassium Chloride/H20) 10 meq in 100 mls @ 100 mls/hr IV ONCE ONE Stop: 04/29/22 00:39 Insulin Human Lispro (Insulin Lispro 100 Unit/Ml 3 Ml Vial) 0 unit SUBCUT QIDACHS [facility]; Protocol Home Medications Medication Instructions Recorded Confirmed Last Taken Type trazodone 50 mg tablet 50 - 100 mg PO BEDTIME PRN Sleep 03/08/20 04/29/22 03/29/21 History fluticasone furoate 100 1 puff inhalation DAILY 04/29/22 04/29/22 Unknown H istory mcg-vilanterol 25 mcg/dose inhalation powder Physical Exam Vital Signs: Vital Signs: Last Vital Signs Pulse 116 H 04/28/22 23:12 Resp 28 H 04/28/22 23:17 BP 141/91 H 04/28/22 23:12 Pulse Ox 93 04/28/22 19:07 O2 Del Method 04/28/22 19:07 BMI result Body Mass Index 45.7 Results Labs CBC and Chem 7: 04/29/22 05:58 04/29/22 07:36 Labs: Laboratory Results - last 24 hr 04/28/22 04/28/22 04/28/22 19:33 19:34 19:34 MCV 81.0 MCH 24.6 L MCHC 30.4 L RDW 15.6 Plt Count 157 L MPV 10.4 Immature Gran % (Auto) 0.3 Neut % (Auto) 81.7 H Lymph % (Auto) 9.8 L [place] % (Auto) 6.4 Eos % (Auto) 1.6 Baso % (Auto) 0.2 Lymph # (Auto) 1.0 L [place] # (Auto) 0.7 Eos # (Auto) 0.2 Baso # (Auto) 0.0 Abs Immat Gran (auto) 0.03 Absolute Neuts (auto) 8.4 H Absolute Nucleated RBC 0.000 Nucleated RBC % (auto) 0.0 PT INR O2 Saturation ABG pH at Pt Temp ABG pCO2 at Pt Temp ABG pO2 at Pt Temp ABG HCO3 ABG Base Excess (Actual) VBG pH VBG pCO2 VBG pO2 VBG HCO3 VBG O2 Saturation VBG Base Excess Anion Gap 14 Estim Creat Clear Calc 83.7 Estimated GFR > 60 Random Glucose 151 H Lactic Acid Calcium 9.0 Total Bilirubin 0.6 AST 30 D ALT 12 Alkaline Phosphatase 155 H Troponin I High Sens Total Protein 7.8 Albumin 4.0 Influenza Type A (PCR) NEGATIVE Influenza Type B (PCR) NEGATIVE RSV RNA Qual (PCR) NEGATIVE SARS-CoV-2 RNA (RT-PCR) NEGATIVE 04/28/22 04/28/22 04/28/22 19:34 19:34 19:34 MCV MCH MCHC RDW Plt Count MPV Immature Gran % (Auto) Neut % (Auto) Lymph % (Auto) [place] % (Auto) Eos % (Auto) Baso % (Auto) Lymph # (Auto) [place] # (Auto) Eos # (Auto) Baso # (Auto) Abs Immat Gran (auto) Absolute Neuts (auto) Absolute Nucleated RBC Nucleated RBC % (auto) PT 12.3 INR 1.1 O2 Saturation ABG pH at Pt Temp ABG pCO2 at Pt Temp ABG pO2 at Pt Temp ABG HCO3 ABG Base Excess (Actual) VBG pH VBG pCO2 VBG pO2 VBG HCO3 VBG O2 Saturation VBG Base Excess Anion Gap Estim Creat Clear Calc Estimated GFR Random Glucose Lactic Acid 0.9 Calcium Total Bilirubin AST ALT Alkaline Phosphatase Troponin I High Sens 26.1 H D Total Protein Albumin Influenza Type A (PCR) Influenza Type B (PCR) RSV RNA Qual (PCR) SARS-CoV-2 RNA (RT-PCR) 04/28/22 04/28/22 19:40 23:33 MCV MCH MCHC RDW Plt Count MPV Immature Gran % (Auto) Neut % (Auto) Lymph % (Auto) [place] % (Auto) Eos % (Auto) Baso % (Auto) Lymph # (Auto) [place] # (Auto) Eos # (Auto) Baso # (Auto) Abs Immat Gran (auto) Absolute Neuts (auto) Absolute Nucleated RBC Nucleated RBC % (auto) PT INR O2 Saturation 76.0 ABG pH at Pt Temp 7.41 ABG pCO2 at Pt Temp 38 ABG pO2 at Pt Temp 48 L* ABG HCO3 25 ABG Base Excess (Actual) 0.7 VBG pH 7.47 H VBG pCO2 42 VBG pO2 35 VBG HCO3 31 H VBG O2 Saturation 55.0 VBG Base Excess 7.0 Anion Gap Estim Creat Clear Calc Estimated GFR Random Glucose Lactic Acid Calcium Total Bilirubin AST ALT Alkaline Phosphatase Troponin I High Sens Total Protein Albumin Influenza Type A (PCR) Influenza Type B (PCR) RSV RNA Qual (PCR) SARS-CoV-2 RNA (RT-PCR) Imaging Radiologist's Impressions: Impressions Chest X-Ray 04/28/22 19:26 IMPRESSION: LEFT KNEE: No acute abnormalities. LEFT SHOULDER: 1. No acute abnormalities. 2. Diffuse osteopenia. CHEST: 1. No acute cardiopulmonary abnormalities. 2. Findings suspicious for centrilobular emphysema. 3. No rib fractures identified. Knee X-Ray 04/28/22 19:26 IMPRESSION: LEFT KNEE: No acute abnormalities. LEFT SHOULDER: 1. No acute abnormalities. 2. Diffuse osteopenia. CHEST: 1. No acute cardiopulmonary abnormalities. 2. Findings suspicious for centrilobular emphysema. 3. No rib fractures identified. Shoulder X-Ray 04/28/22 19:26 IMPRESSION: LEFT KNEE: No acute abnormalities. LEFT SHOULDER: 1. No acute abnormalities. 2. Diffuse osteopenia. CHEST: 1. No acute cardiopulmonary abnormalities. 2. Findings suspicious for centrilobular emphysema. 3. No rib fractures identified. Assessment and Plan Time Spent With Patient Time: Total time managing care of this patient today ____ minutes.
[2022-04-28 23:52] LABS: Magnesium 1.5 mg/dL (1.6-2.6)
[2022-04-29] VITALS (38 sets, daily range): BP systolic 84–183; BP diastolic 66–101; PULSE 67–99; RESP 13–24; TEMP 35.7–36.9; O2SAT 90–97; BMI 28.5
[2022-04-29 00:09] LABS: Troponin-I High Sensitivity 65.4 ng/L (<3.5-17.0)
--- NOTE | 2022-04-29 00:13 | PC.NURSE ---
At 2300, patient went into vtach, HR 211. Pt was restless and anxious. Provider and respiratory therapy were at bedside. Pads placed on pt. Per Dr Hopkins, gave verbal order to administer Amiodarone 150 mg IV Push one time- administered, Verbal order Ativan 2 mg IV push one time administered. At 2307, HR at 131. At 2309, HR came down to 118 with bp 153/89 and 27RR. At 2311, EKG was done HR of 112 and 23RR. At 2333, bp 130/94 and HR 106. Pt is arousable. Report given to Ji. After Dr Hopkins, put the amiodarone in the MAR, made Dr Choi aware the order was incorrect. Dr Choi tried to do the same and the order is still incorrect despite his efforts. It looks like a system error. Relayed message to CARRILLO Workman. Ji aware.
[2022-04-29] MEDS: Heparin Sodium,Porcine 5,000 UNIT/ML VIAL 5000 UNIT SUBCUT ×4 (00:15→23:38)
--- NOTE | 2022-04-29 01:02 | PC.NURSE ---
Report called to ICU spoke with CARRILLO Cunningham
--- NOTE | 2022-04-29 01:03 | PC.NURSE ---
pt did receive a 150 mg dose of amiodarone iv push with doctor at bedside rn was unable to document but med was given with doctor at bedside.
--- NOTE | 2022-04-29 01:05 | PC.NURSE ---
Called RT for assistance with transport.
[2022-04-29 02:40] LABS: Troponin-I High Sensitivity 103.6 ng/L (<3.5-17.0)
[2022-04-29] MEDS: methylPREDNISolone Sod Succ 40 MG/ML VIAL IVPUSH ×3 (03:44→17:00)
--- NOTE | 2022-04-29 04:40 | PC.NURSE ---
Patient arrived to floor from ED drowsy but arousable. Able to follow simple commands in Belarusian. No behavioral indicator of pain noted. CPAP in place; initially 14, 14/5, 40%. Subsequently FiO2 increased to 45%, mask changed as well due to low saturations (84%). LS diminished bilateral, no cough or sputum noted. SR with PACs, HR 60-70's. Afebrile. Patient currently NPO secondary to CPAP, risk for aspiration. Purewick in place, denies need to void. Bladder scanned for 234cc (0400); provider aware. Resting. No complaints at this time.
[2022-04-29 05:18] LABS: VBG Base Excess 4.2 mmol/L; VBG HCO3 27 mmol/L (22-26); VBG pCO2 37 mmHg; VBG pH 7.47 (7.32-7.43); VBG pO2 47 mmHg
[2022-04-29 05:37] LABS: Venous Blood Gas Refer to POC result
--- NOTE | 2022-04-29 06:16 | PC.NURSE ---
Patient bladder scanned for 267cc. No urge to void at this time.
[2022-04-29] MEDS: Pantoprazole Sodium 40 MG/10 ML VIAL IVPUSH (06:26)
[2022-04-29 06:35] LABS: Basophils Percent Auto 0.1 % (0-2); Hematocrit 34.9 % (37.0-47.0); Imm Gran Abs Auto 0.03 X10*3/uL (0.00-0.03); Imm Gran Pct Auto 0.4 % (0.0-0.4); Lymphocytes Absolute Auto 0.6 X10*3/uL (1.2-4.9); Lymphocytes Percent Auto 8.5 % (20-40); MANUAL DIFF FLAG SCAN; Mean Corpuscular HGB Conc 31.5 g/dl (31.0-35.0); Mean Corpuscular Hemoglobin 25.1 pg (27.0-33.0); Mean Corpuscular Volume 79.7 fL (80.0-98.0); Mean Platelet Volume 11.6 fL (9.4-12.3); Monocytes Absolute Auto 0.1 X10*3/uL (0.1-1.2); Monocytes Percent Auto 0.7 % (2-11); Neutrophils Absolute Auto 6.5 x10*3/uL (2.0-8.3); Neutrophils Percent Auto 90.3 % (45-73); Platelet Count 144 X10*3/uL (160-400); Red Blood Count 4.38 X10*6/uL (4.20-5.50); Red Cell Distribution Width 15.9 % (11.0-16.0); SCAN SMEAR FLAG 1; White Blood Count 7.2 X10*3/uL (4.8-10.8)
[2022-04-29 07:12] LABS: SLIDE REVIEW VERIFIED
[2022-04-29 07:33] LABS: Glucose, Whole Blood 161 mg/dL (60-115)
[2022-04-29] MEDS: Albuterol/Iprat 2.5/0.5MG 3 ML AMPUL.NEB INHALE ×3 (07:58→19:39)
[2022-04-29 08:49] LABS: Alanine Aminotransferase 16 U/L (0-31); Albumin Level 3.9 g/dL (3.5-5.0); Alkaline Phosphatase 159 U/L (39-117); Aspartate Amino Transferase 31 U/L (5-31); Bilirubin Total 0.5 mg/dL (0.0-1.0); Blood Urea Nitrogen 15 mg/dL (9-16); Calcium 9.3 mg/dL (8.4-10.2); Creatinine Clr Calc Pharmacy 66.5; Estimated Glomerular Filt Rate > 60; Glucose Random 161 mg/dL (60-115); Magnesium 2.3 mg/dL (1.6-2.6); Phosphorus 2.5 mg/dL (2.7-4.5); Total Protein 7.6 g/dL (6.5-8.0)
[2022-04-29 08:59] LABS: Anion Gap 21 (12-20); Carbon Dioxide 21 mmol/L (22-29); Chloride 101 mmol/L (96-108); Potassium 3.8 mmol/L (3.3-5.1); Sodium 139 mmol/L (135-145)
[2022-04-29] MEDS: oxyCODONE HCl Immed Release 5 MG TABLET PO (09:17)
[2022-04-29] MEDS: Isosorbide Mononitrate 30 MG TAB.ER.24H PO (09:17)
[2022-04-29] MEDS: amLODIPine Besylate 10 MG TABLET PO (09:17)
[2022-04-29] MEDS: Acetaminophen 325 MG TABLET PO (09:17)
[2022-04-29] MEDS: carvediloL 12.5 MG TABLET PO ×2 (09:18→21:45)
--- NOTE | 2022-04-29 09:50 | MHC.CM.PN ---
Pt currently receiving care in ICU: drowsy and slightly lethargic: information difficult to obtain. Call placed to pt's HCP/[employer], Chanelle Walton with whom pt resides. Message left for callback. Per EMR, pt resides at home w/Chanelle who assists pt w/care needs. Pt uses BLS for transport and Possibly [employer] for home O2. CM to wait for call back from Chanelle or improvement in alertness by pt to complete the d/c assessment. HCP on file.
--- NOTE | 2022-04-29 10:10 | ECG_ITS ---
Test Reason : VTACH Blood Pressure : / mmHG Vent. Rate : 112 BPM Atrial Rate : 112 BPM P-R Int : 138 ms QRS Dur : 132 ms QT Int : 358 ms P-R-T Axes : 045 053 -31 degrees QTc Int : 488 ms Sinus tachycardia with occasional Premature ventricular complexes Possible Left atrial enlargement Right bundle branch block Abnormal ECG When compared with ECG of 28-APR-2022 19:51, Premature ventricular complexes are now Present Nonspecific T wave abnormality now evident in Lateral leads Referred By: Generic ED Physician Electronically Signed By:KEVIN ODELL MD
--- NOTE | 2022-04-29 10:22 | ECG_ITS ---
Test Reason : cp Blood Pressure : / mmHG Vent. Rate : 079 BPM Atrial Rate : 079 BPM P-R Int : 120 ms QRS Dur : 134 ms QT Int : 492 ms P-R-T Axes : 034 023 -59 degrees QTc Int : 564 ms Sinus rhythm with Premature ventricular complexes Right bundle branch block Abnormal ECG When compared with ECG of 28-APR-2022 23:14, Premature ventricular complexes is now Present Referred By: Generic ED Physician Electronically Signed By:KEVIN ODELL MD
[2022-04-29 11:18] LABS: Glucose, Whole Blood 163 mg/dL (60-115)
--- NOTE | 2022-04-29 13:30 | PHA.MEDREC ---
Pharmacy Consult ? Medication Reconciliation Pharmacy has completed the medication reconciliation. Utilized [employer]. Patient does not know any of her medications. Patient stated that HCP on file (Chanelle - [phone]) helps her handle her medications. Called and left Voicemail, but have not heard response back at this time. Called pharmacy and confirmed picked up medications. Confirmed meds based off pharmacy and claim history.
[2022-04-29] MEDS: Ibuprofen 400 MG TABLET PO (15:50)
[2022-04-29 16:47] LABS: Glucose, Whole Blood 183 mg/dL (60-115)
[2022-04-29] MEDS: Insulin Lispro 100 UNIT/ML 3 ML VIAL SUBCUT ×2 (17:00→22:19)
--- NOTE | 2022-04-29 18:55 | P.PNCC_ITS ---
Subjective Subjective Date of Service: 04/29/22 Interval History: Mrs. Romero was admitted to ICU early this morning with acute respiratory failure. The patient is a 71 yo woman w a long history of severe COPD 2? smoking, still smoking, on 6L oxygen at home, KELLIE, nonischemic CMOP w systolic CHF (EF 30-35% w moderate MR, on echo 02/2021), PHTN, SVT DM, HTN w hypertensive crisis, HLD.? Review of her [employer] labs show normal or minimally elevated bicarb levels, normal ABG pCO2 levels, and mostly normal VBG pCO2 levels, suggesting that she is not a CO2 retainer. She?s been admitted to [facility] with resp failure mult times:? Four times previously this year, seven times last year.? Last admission was in February of this year.? I saw her in March of last year when she presented with acute heart failure 2? hypertensive crisis.? She lives alone with the help of a GEOLOGICAL SPECIALIST, who is her HCP.? She has no family. The patient presented to emergency room yesterday evening with complaints of increased dyspnea x 1 week, increased cough but no fever or sputum production.? She had also experience a mechanical fall at home after slipping and falling, and reported shoulder, chest and left knee pain. In the ED, she was afebrile, HR 100, BP 160-170/95, RR 26, Sat 77% on room air.? No white count, no electrolyte abnormality, normal lactate.? Respiratory virus panel was negative. ?CXR showed hyperexpanded lung wiseman w flattened hemidiaph?s, not signif different than her last film on 03/23.? She was placed on CPAP.? VBG showed 7.47/42+7.? She was given steroids, Dilaudid, and Ativan. ?After 2-3 hours, the patient felt better and was taken off CPAP. At about 11pm, she ?suddenly? became more dyspneic and was put back on CPAP.? She reportedly went into slow ventricular tachycardia with a pulse, HR 100-116, for which she received 150 mg of amiodarone, converting back to sinus rhythm.? She was in VT for about 5 minutes.? Subsequent ABG 7.41/38/48/0 (?? pO2 doesn?t make sense). ?Magnesium was low at 1.5.? She was given magnesium and admitted to ICU on CPAP w diagnosis of acute COPD exacerbation. Overnight she was treated with CPAP, BiPAP, BDs and steroids.? This morning, she came off BiPAP easily onto HFNC.? She was given amlodipine, Coreg, and Imdur this morning, but no loasartan.? HR this afternoon 83, SR, BP 136/91.? On HFNC 50L/55%, she?s breathing easy, RR was 20, Sat 93%.? She is fully awake, alert, oriented, if not somewhat unpleased with the events that have transpired.? She looks thoroughly nontoxic and not unwell.? 1cm JVD at 30-40?.? Chest is CTA, with no wheezes or rales, normal exp phase.? RRR, normal S1 and S2, with no murmur or gallops.? The abdomen is benign.? She has no edema.? Her right calf is larger than left.? No tenderness. LABORATORY DATA: Below.? Notably, venous blood gas this morning showed 7.47/37/+4.? Chemistries were unremarkable except bicarb was 21, phosphorus was 2.5, POCs running in the 160s.? Mg 2.3. IMPRESSION: 1. Underlying severe COPD. 2. Chronic severe hypoxemic resp failure.? 2? above.? Not previously a CO2 retainer. 3. Tobacco abuse.? Still smoking.? Doesn?t want nicotine. 4. Underlyinig nonischemic CMOP w systolic CHF. 5. Underlying HTN with h/o hypertensive crisis. 6. Acute hypoxic respiratory failure.? My suspicion is that this was again an episode of hypertensive crisis, for this patient, similar to the episode in Mar, 2021.? Ie., while for most patients, a BP of 160-170 would be no problem, for this patient, with an EF of 30% and moderate MR, that?s a disaster.? IMO, the main focus here should be on keeping her BP below 120 systolic.? She hasn?t gotten her losartan yet, so we?ll give her that now.? She may need an increase in the dose. 7. Cannot fully rule out an acute COPD exacerbation, but she never really had any wheezing or prolonged exp phase.? At this point, I see no real need for steroids.? Would taper off over the next day or two. 8. Nonsustained V-tach.? Understandable with the aforementioned stress, in the presence of a very low magnesium. 9. Acute hypomagnesemia.? Repleted. 10. DM.? She does not take anything.? POCs have been within range. 11. Hypophosphatemia.? Repleted. 12. No evidence of any infection.? No sepsis.? No antibiotics, blood cultures, or lactate levels are indicated. [place] [facility] [place] sign out to the hospitalists. Critical Care Time (minutes): 0 Physical Exam Vital Signs: Vital Signs: Last Vital Signs Temp 98.1 F 04/29/22 06:00 Pulse 85 04/29/22 18:01 Resp 17 04/29/22 18:01 BP 143/85 H 04/29/22 18:01 Pulse Ox 90 L 04/29/22 18:25 O2 Del Method 04/29/22 18:25 O2 Flow Rate 40 04/29/22 18:01 FiO2 55 04/29/22 18:25 BMI result Body Mass Index 28.5 Objective Data Labs CBC & Chem 7: 04/29/22 05:58 04/29/22 07:36 Labs: Laboratory Results - last 24 hr 04/28/22 04/28/22 04/28/22 19:33 19:34 19:34 WBC 10.2 RBC 4.31 Hgb 10.6 L Hct 34.9 L MCV 81.0 MCH 24.6 L MCHC 30.4 L RDW 15.6 Plt Count 157 L MPV 10.4 Immature Gran % (Auto) 0.3 Neut % (Auto) 81.7 H Lymph % (Auto) 9.8 L [place] % (Auto) 6.4 Eos % (Auto) 1.6 Baso % (Auto) 0.2 Lymph # (Auto) 1.0 L [place] # (Auto) 0.7 Eos # (Auto) 0.2 Baso # (Auto) 0.0 Abs Immat Gran (auto) 0.03 Absolute Neuts (auto) 8.4 H Absolute Nucleated RBC 0.000 Nucleated RBC % (auto) 0.0 Smear Tech's Comments PT INR O2 Saturation ABG pH at Pt Temp ABG pCO2 at Pt Temp ABG pO2 at Pt Temp ABG HCO3 ABG Base Excess (Actual) VBG pH VBG pCO2 VBG pO2 VBG HCO3 VBG O2 Saturation VBG Base Excess Sodium 138 Potassium 3.5 Chloride 97 Carbon Dioxide 31 H Anion Gap 14 BUN 10 D Creatinine 0.85 Estim Creat Clear Calc 83.7 Estimated GFR > 60 POC Glucose Random Glucose 151 H Lactic Acid Calcium 9.0 Phosphorus Magnesium Total Bilirubin 0.6 AST 30 D ALT 12 Alkaline Phosphatase 155 H Troponin I High Sens Total Protein 7.8 Albumin 4.0 Influenza Type A (PCR) NEGATIVE Influenza Type B (PCR) NEGATIVE RSV RNA Qual (PCR) NEGATIVE SARS-CoV-2 RNA (RT-PCR) NEGATIVE 04/28/22 04/28/22 04/28/22 19:34 19:34 19:34 WBC RBC Hgb Hct MCV MCH MCHC RDW Plt Count MPV Immature Gran % (Auto) Neut % (Auto) Lymph % (Auto) [place] % (Auto) Eos % (Auto) Baso % (Auto) Lymph # (Auto) [place] # (Auto) Eos # (Auto) Baso # (Auto) Abs Immat Gran (auto) Absolute Neuts (auto) Absolute Nucleated RBC Nucleated RBC % (auto) Smear Tech's Comments PT 12.3 INR 1.1 O2 Saturation ABG pH at Pt Temp ABG pCO2 at Pt Temp ABG pO2 at Pt Temp ABG HCO3 ABG Base Excess (Actual) VBG pH VBG pCO2 VBG pO2 VBG HCO3 VBG O2 Saturation VBG Base Excess Sodium Potassium Chloride Carbon Dioxide Anion Gap BUN Creatinine Estim Creat Clear Calc Estimated GFR POC Glucose Random Glucose Lactic Acid 0.9 Calcium Phosphorus Magnesium Total Bilirubin AST ALT Alkaline Phosphatase Troponin I High Sens 26.1 H D Total Protein Albumin Influenza Type A (PCR) Influenza Type B (PCR) RSV RNA Qual (PCR) SARS-CoV-2 RNA (RT-PCR) 04/28/22 04/28/22 04/28/22 19:40 23:29 23:29 WBC RBC Hgb Hct MCV MCH MCHC RDW Plt Count MPV Immature Gran % (Auto) Neut % (Auto) Lymph % (Auto) [place] % (Auto) Eos % (Auto) Baso % (Auto) Lymph # (Auto) [place] # (Auto) Eos # (Auto) Baso # (Auto) Abs Immat Gran (auto) Absolute Neuts (auto) Absolute Nucleated RBC Nucleated RBC % (auto) Smear Tech's Comments PT INR O2 Saturation ABG pH at Pt Temp ABG pCO2 at Pt Temp ABG pO2 at Pt Temp ABG HCO3 ABG Base Excess (Actual) VBG pH 7.47 H VBG pCO2 42 VBG pO2 35 VBG HCO3 31 H VBG O2 Saturation 55.0 VBG Base Excess 7.0 Sodium Potassium Chloride Carbon Dioxide Anion Gap BUN Creatinine Estim Creat Clear Calc Estimated GFR POC Glucose Random Glucose Lactic Acid Calcium Phosphorus Magnesium 1.5 L Total Bilirubin AST ALT Alkaline Phosphatase Troponin I High Sens 65.4 H* D Total Protein Albumin Influenza Type A (PCR) Influenza Type B (PCR) RSV RNA Qual (PCR) SARS-CoV-2 RNA (RT-PCR) 04/28/22 04/29/22 04/29/22 23:33 02:06 05:10 WBC RBC Hgb Hct MCV MCH MCHC RDW Plt Count MPV Immature Gran % (Auto) Neut % (Auto) Lymph % (Auto) [place] % (Auto) Eos % (Auto) Baso % (Auto) Lymph # (Auto) [place] # (Auto) Eos # (Auto) Baso # (Auto) Abs Immat Gran (auto) Absolute Neuts (auto) Absolute Nucleated RBC Nucleated RBC % (auto) Smear Tech's Comments PT INR O2 Saturation 76.0 ABG pH at Pt Temp 7.41 ABG pCO2 at Pt Temp 38 ABG pO2 at Pt Temp 48 L* ABG HCO3 25 ABG Base Excess (Actual) 0.7 VBG pH 7.47 H VBG pCO2 37 VBG pO2 47 VBG HCO3 27 H VBG O2 Saturation 78.0 VBG Base Excess 4.2 Sodium Potassium Chloride Carbon Dioxide Anion Gap BUN Creatinine Estim Creat Clear Calc Estimated GFR POC Glucose Random Glucose Lactic Acid Calcium Phosphorus Magnesium Total Bilirubin AST ALT Alkaline Phosphatase Troponin I High Sens 103.6 H* D Total Protein Albumin Influenza Type A (PCR) Influenza Type B (PCR) RSV RNA Qual (PCR) SARS-CoV-2 RNA (RT-PCR) 04/29/22 04/29/22 04/29/22 05:58 07:30 07:36 WBC 7.2 RBC 4.38 Hgb 11.0 L Hct 34.9 L MCV 79.7 L MCH 25.1 L MCHC 31.5 RDW 15.9 Plt Count 144 L MPV 11.6 Immature Gran % (Auto) 0.4 Neut % (Auto) 90.3 H Lymph % (Auto) 8.5 L [place] % (Auto) 0.7 L Eos % (Auto) 0.0 Baso % (Auto) 0.1 Lymph # (Auto) 0.6 L [place] # (Auto) 0.1 Eos # (Auto) 0.0 Baso # (Auto) 0.0 Abs Immat Gran (auto) 0.03 Absolute Neuts (auto) 6.5 Absolute Nucleated RBC 0.000 Nucleated RBC % (auto) 0.0 Smear Tech's Comments VERIFIED PT INR O2 Saturation ABG pH at Pt Temp ABG pCO2 at Pt Temp ABG pO2 at Pt Temp ABG HCO3 ABG Base Excess (Actual) VBG pH VBG pCO2 VBG pO2 VBG HCO3 VBG O2 Saturation VBG Base Excess Sodium 139 Potassium 3.8 Chloride 101 Carbon Dioxide 21 L Anion Gap 21 H BUN 15 Creatinine 0.83 Estim Creat Clear Calc 66.5 Estimated GFR > 60 POC Glucose 161 H Random Glucose 161 H Lactic Acid Calcium 9.3 Phosphorus 2.5 L Magnesium 2.3 Total Bilirubin 0.5 AST 31 ALT 16 Alkaline Phosphatase 159 H Troponin I High Sens Total Protein 7.6 Albumin 3.9 Influenza Type A (PCR) Influenza Type B (PCR) RSV RNA Qual (PCR) SARS-CoV-2 RNA (RT-PCR) 04/29/22 04/29/22 11:14 16:43 WBC RBC Hgb Hct MCV MCH MCHC RDW Plt Count MPV Immature Gran % (Auto) Neut % (Auto) Lymph % (Auto) [place] % (Auto) Eos % (Auto) Baso % (Auto) Lymph # (Auto) [place] # (Auto) Eos # (Auto) Baso # (Auto) Abs Immat Gran (auto) Absolute Neuts (auto) Absolute Nucleated RBC Nucleated RBC % (auto) Smear Tech's Comments PT INR O2 Saturation ABG pH at Pt Temp ABG pCO2 at Pt Temp ABG pO2 at Pt Temp ABG HCO3 ABG Base Excess (Actual) VBG pH VBG pCO2 VBG pO2 VBG HCO3 VBG O2 Saturation VBG Base Excess Sodium Potassium Chloride Carbon Dioxide Anion Gap BUN Creatinine Estim Creat Clear Calc Estimated GFR POC Glucose 163 H 183 H Random Glucose Lactic Acid Calcium Phosphorus Magnesium Total Bilirubin AST ALT Alkaline Phosphatase Troponin I High Sens Total Protein Albumin Influenza Type A (PCR) Influenza Type B (PCR) RSV RNA Qual (PCR) SARS-CoV-2 RNA (RT-PCR) Quality Stroke Does the patient have a stroke diagnosis?: No VTE Prior VTE?: No VTE Risk Level:: Medical - moderate - high VTE Device Contraindication: N/A - Device Ordered VTE Drug Contraindication: N/A - Med Ordered
[2022-04-29] MEDS: Losartan Potassium 50 MG TABLET 100 MG PO (19:02)
--- NOTE | 2022-04-29 19:14 | PC.NURSE ---
PATIENT SWITCHED OVER FROM BIPAP TO HFNC IN THE MORNING. PO BP CONTROL MEDICATIONS STARTED DUE TO HIGH BP, SBP 170'S-180'S, MEDICATIONS PRODUCED EFFECTIVE RESULTS. SEE EMAR. PATIENT HAD INCREASED ANXIETY LEADING TO INCREASED WORK OF BREATHING, RR HIGH 40'S, PATIENT SWITCHED FROM HFNC TO BIPAP DUE TO INABILITY TO BREATH THROUGH NOSE AND CALM SELF, O2 SAT 55%. PATIENT ABLE TO CALM AND O2 RAISED TO GOAL RATE, TOLERATING BIPAP WELL. PT BATHED, REPOSITIONED Q2HR, INFORMED ON CURRENT HEALTH STATUS.
[2022-04-29] MEDS: Sodium,Potassium Phosphates POWD.PACK 2 PACKET PO ×2 (19:26→21:45)
[2022-04-29] MEDS: Sertraline HCL 100 MG TABLET 200 MG PO (19:27)
[2022-04-29] MEDS: Montelukast Sodium 10 MG TABLET PO (21:45)
[2022-04-29 21:46] LABS: Glucose, Whole Blood 156 mg/dL (60-115)
[2022-04-29] MEDS: traZODone HCL 50 MG TABLET PO (23:38)
[2022-04-30] VITALS (17 sets, daily range): BP systolic 147–194; BP diastolic 89–108; PULSE 67–88; RESP 12–22; TEMP 35.5–36.8; O2SAT 90–100; BMI 28.6
[2022-04-30] MEDS: methylPREDNISolone Sod Succ 40 MG/ML VIAL IVPUSH ×2 (01:45→11:43)
[2022-04-30 05:30] LABS: VBG Base Excess 5.6 mmol/L; VBG HCO3 29 mmol/L (22-26); VBG pCO2 38 mmHg; VBG pH 7.48 (7.32-7.43); VBG pO2 44 mmHg
[2022-04-30] MEDS: carvediloL 12.5 MG TABLET PO ×2 (05:36→21:08)
[2022-04-30] MEDS: Losartan Potassium 50 MG TABLET 100 MG PO (05:36)
[2022-04-30] MEDS: Pantoprazole Sodium 40 MG/10 ML VIAL IVPUSH (06:06)
[2022-04-30 06:09] LABS: Anion Gap 15 (12-20); Blood Urea Nitrogen 25 mg/dL (9-16); Calcium 9.4 mg/dL (8.4-10.2); Carbon Dioxide 29 mmol/L (22-29); Chloride 97 mmol/L (96-108); Creatinine Clr Calc Pharmacy 54.6; Estimated Glomerular Filt Rate 56; Glucose Random 140 mg/dL (60-115); Magnesium 2.3 mg/dL (1.6-2.6); Phosphorus 2.9 mg/dL (2.7-4.5); Potassium 3.3 mmol/L (3.3-5.1); Sodium 138 mmol/L (135-145)
[2022-04-30 06:16] LABS: B Type Natriuretic Peptide 779 pg/mL (<100)
[2022-04-30] MEDS: Folic Acid 1 MG TABLET PO (07:36)
[2022-04-30] MEDS: Sertraline HCL 100 MG TABLET 200 MG PO (07:36)
[2022-04-30] MEDS: Isosorbide Mononitrate 30 MG TAB.ER.24H PO (07:36)
[2022-04-30] MEDS: Heparin Sodium,Porcine 5,000 UNIT/ML VIAL 5000 UNIT SUBCUT ×2 (07:36→23:21)
[2022-04-30 07:38] LABS: Glucose, Whole Blood 131 mg/dL (60-115)
[2022-04-30] MEDS: Albuterol/Iprat 2.5/0.5MG 3 ML AMPUL.NEB INHALE ×3 (08:40→19:20)
[2022-04-30 11:37] LABS: Glucose, Whole Blood 150 mg/dL (60-115)
--- NOTE | 2022-04-30 14:35 | HO.PM.IMPN ---
Subjective Subjective Date of Service: 04/30/22 Interval History: Breathing improved per patient. Able to speak in short sentences and 6 L Review of Systems Denies chest pain Admits to short of breath with minimal movement Denies nausea vomiting diarrhea Denies fever chills Physical Exam Vital Signs: Vital Signs: Last Vital Signs Temp 97.1 F 04/30/22 13:57 Pulse 88 04/30/22 13:57 Resp 16 04/30/22 13:57 BP 165/91 H 04/30/22 13:57 Pulse Ox 97 04/30/22 11:49 O2 Del Method 04/30/22 13:57 O2 Flow Rate 6 04/30/22 13:57 FiO2 50 04/30/22 08:00 BMI result Body Mass Index 28.6 Const: Other: Awake alert no acute distress Resp: Other: Diminished throughout with expiratory wheezes at bases Cardio: Other: No S4; positive S1-S2; no S3 murmurs rubs or gallops GI: Other: Soft nontender nondistended normoactive bowel sounds Extrem: Other: No edema bilaterally Objective Data Active Medications Albuterol Sulfate (Albuterol Sulfate (0.083%) 2.5 Mg/3 Ml Vial.Neb) 2.5 mg INHALE Q4H PRN PRN Reason: Wheezing Albuterol/Ipratropium (Albuterol/Iprat 2.5/0.5mg 3 Ml Ampul.Neb) 3 ml INHALE RQ6H WHILE AWAKE [facility] Last Admin: 04/30/22 08:40 Dose: 3 ml Documented By: MARGARITA Carvedilol (Carvedilol 12.5 Mg Tablet) 12.5 mg PO BID [facility]; Protocol Last Admin: 04/30/22 05:36 Dose: 12.5 mg Documented By: LIZ Comments: Ok to give early for BP 186/104 per Julia GARAY Folic Acid (Folic Acid 1 Mg Tablet) 1 mg PO DAILY [facility] Last Admin: 04/30/22 07:36 Dose: 1 mg Documented By: RAS Furosemide (Furosemide 40 Mg Tablet) 40 mg PO DAILY [facility]; Protocol Heparin Sodium (Porcine) (Heparin Sodium,Porcine 5,000 Unit/Ml Vial) 5,000 unit SUBCUT Q8H [facility] Last Admin: 04/30/22 07:36 Dose: 5,000 unit Documented By: RAS Ibuprofen (Ibuprofen 400 Mg Tablet) 400 mg PO Q6H PRN PRN Reason: Pain, Mild (Pain Scale 1-3) Last Admin: 04/29/22 15:50 Dose: 400 mg Documented By: ANJALI Insulin Human Lispro (Insulin Lispro 100 Unit/Ml 3 Ml Vial) 0.1 - 10 unit SUBCUT QIDACHS [facility]; Protocol Last Admin: 04/30/22 11:43 Dose: Not Given Documented By: MARCOS Non-Admin Reason: No Insulin Coverage Isosorbide Mononitrate (Isosorbide Mononitrate 30 Mg Tab.Er.24h) 30 mg PO DAILY [facility]; Protocol Last Admin: 04/30/22 07:36 Dose: 30 mg Documented By: RAS Losartan Potassium (Losartan Potassium 50 Mg Tablet) 100 mg PO DAILY [facility]; Protocol Last Admin: 04/30/22 05:36 Dose: 100 mg Documented By: LIZ Comments: Ok to give early for BP 186/104 per Julia GARAY Meclizine HCl (Meclizine Hcl 25 Mg Tablet) 25 mg PO TID PRN PRN Reason: dizziness Methylprednisolone Sodium Succinate (Methylprednisolone Sod Succ 40 Mg/Ml Vial) 40 mg IVPUSH Q8H [facility] Last Admin: 04/30/22 11:43 Dose: 40 mg Documented By: MARCOS Montelukast Sodium (Montelukast Sodium 10 Mg Tablet) 10 mg PO BEDTIME [facility] Last Admin: 04/29/22 21:45 Dose: 10 mg Documented By: SPENSER Pantoprazole Sodium (Pantoprazole Sodium 40 Mg/10 Ml Vial) 40 mg IVPUSH DAILY@0630 [facility] Last Admin: 04/30/22 06:06 Dose: 40 mg Documented By: LIZ Quetiapine Fumarate (Quetiapine Fumarate 50 Mg Tablet) 50 mg PO BID [facility] Sertraline HCl (Sertraline Hcl 100 Mg Tablet) 200 mg PO DAILY [facility] Last Admin: 04/30/22 07:36 Dose: 200 mg Documented By: RAS Trazodone HCl (Trazodone Hcl 50 Mg Tablet) 50 mg PO BEDTIME PRN PRN Reason: Sleep Last Admin: 04/29/22 23:38 Dose: 50 mg Documented By: SPENSER Labs CBC & Chem 7: 04/29/22 05:58 04/30/22 05:25 Labs: Laboratory Results - last 24 hr 04/29/22 04/29/22 04/30/22 16:43 21:31 05:23 VBG pH 7.48 H VBG pCO2 38 VBG pO2 44 VBG HCO3 29 H VBG O2 Saturation 72.0 VBG Base Excess 5.6 Anion Gap Estim Creat Clear Calc Estimated GFR POC Glucose 183 H 156 H Random Glucose Calcium Phosphorus Magnesium B-Natriuretic Peptide 04/30/22 04/30/22 04/30/22 05:25 05:25 07:30 VBG pH VBG pCO2 VBG pO2 VBG HCO3 VBG O2 Saturation VBG Base Excess Anion Gap 15 Estim Creat Clear Calc 54.6 Estimated GFR 56 POC Glucose 131 H Random Glucose 140 H Calcium 9.4 Phosphorus 2.9 Magnesium 2.3 B-Natriuretic Peptide 779 H 04/30/22 11:34 VBG pH VBG pCO2 VBG pO2 VBG HCO3 VBG O2 Saturation VBG Base Excess Anion Gap Estim Creat Clear Calc Estimated GFR POC Glucose 150 H Random Glucose Calcium Phosphorus Magnesium B-Natriuretic Peptide Microbiology Microbiology Results: Microbiology 04/28/22 20:50 Blood Culture - Preliminary Blood - Venous No growth after 24 hours. 04/28/22 19:33 Blood Culture - Preliminary Blood - Venous No growth after 24 hours. Assessment and Plan (1) Acute and chronic respiratory failure with hypoxia: Status: Acute (2) COPD with acute exacerbation: Status: Acute (3) Essential hypertension: Status: Acute Assessment and Plan: 7-year-old female with known history of type 2 diabetes hyperlipidemia nonischemic cardiomyopathy COPD with ongoing tobacco abuse presents with worsening shortness of breath ultimately requiring BiPAP. Admitted to ICU where she was successfully weaned to nasal O2 in transfer to general medical floor 1. Acute on chronic hypoxemic respiratory failure secondary to COPD exacerbation -continue DuoNebs as scheduled. Titrate O2 down to 2-3 L as is used at home -continue IV steroids; will increase to 60 mg q.6 hours for 48 hours -given sputum production will add doxycycline 100 mg IV q.12 hours -encourage smoking cessation 2. Hypertension -poorly controlled. Add Imdur 30 mg daily and follow-up. Paired adjust as indicated -continue all other therapies 3. Diabetes type 2 -elevated sugars secondary to steroids -lispro correctional scale Full code Heparin Or require ongoing hospitalization for treatment of COPD exacerbation with IV steroids and IV antibiotics (4) Diabetes: Status: Acute Time Spent With Patient Time: Total time managing care of this patient today ____ minutes. Quality Stroke Does the patient have a stroke diagnosis?: No VTE Prior VTE?: No VTE Risk Level:: Medical - moderate - high VTE Device Contraindication: N/A - Device Ordered VTE Drug Contraindication: N/A - Med Ordered
--- NOTE | 2022-04-30 15:12 | MHC.SL.SWA ---
Addendum entered and electronically signed by Astrid Oropeza MA, CCC-MACHINIST APPRENTICE WOOD 05/01/22 17:22: D.S. Original Note: Speech Pathologist Impression: Risk of Aspiration Due to: Medically Fragile Dysphasia Diet Status: Downgrade solids Liquid Consistency and Strategies for Safe Swallow: Liquid Intake Recommendation: Thin Liquid Intake Strategies: Small Sips Solid Food Consistency: Dietary Recommendations: Chopped/Advanced (NDD3) Additional Modifications to Solid Foods: Moistened foods in sauce/gravy Oral Medication Intake: Whole or Crushed with Puree Please contact the pharmacy regarding appropriate crushable or liquid drug formulations that are available whenever modified delivery is recommended. Compensatory Strategies and Precautions to be Taken for Safe Swallow: Sitting Upright (90 deg) Alternate Liquids/Solids Avoid Specific Foods Supervision While Eating and Drinking for Safe Swallow: Intermittent Supervision Foods to Avoid: Avoid sticky, hard, tough to chew foods Swallowing Recommended Treatments: Recommendation for Speech: Inpatient Speech Therapy Modified Barium Swallow Study - Outpatient Comment: Recommend DOWNGRADE to CHOPPED/ADVANCED solids (NDD3). Continue with THIN liquids. Pills whole or crushed in puree depending on patient preference. Monitor for s/s of aspiration. Recommend outpatient MBSS d/t pt reports of globus sensation. Applications Processor Clinican/Clinical Fellow: Yes: Janett Metcalf M.A., CF-MACHINIST APPRENTICE WOOD Supervisory Statement: I have reviewed and agree with the student/clinical fellow's documentation: Speech Language Pathologist:
[2022-04-30] MEDS: methylPREDNISolone Sod Succ 125 MG/2 ML VIAL 60 MG IVPUSH ×2 (15:36→21:07)
[2022-04-30] MEDS: Doxycycline Hyclate 100 MG in 0.9 % Sodium Chloride 250 ML 166.67 MG IV (15:37)
[2022-04-30] MEDS: Furosemide 40 MG/4 ML VIAL IVPUSH (15:51)
[2022-04-30 16:08] LABS: Venous Blood Gas Refer to POC result
[2022-04-30 16:16] LABS: Glucose, Whole Blood 205 mg/dL (60-115)
[2022-04-30] MEDS: Insulin Lispro 100 UNIT/ML 3 ML VIAL SUBCUT ×2 (17:16→21:08)
[2022-04-30 20:17] LABS: Glucose, Whole Blood 154 mg/dL (60-115)
[2022-04-30] MEDS: Montelukast Sodium 10 MG TABLET PO (21:07)
[2022-04-30] MEDS: QUEtiapine Fumarate 50 MG TABLET PO (21:07)
[2022-04-30] MEDS: Ibuprofen 400 MG TABLET PO (21:07)
[2022-05-01] VITALS (8 sets, daily range): BP systolic 118–180; BP diastolic 68–92; PULSE 72–78; RESP 12–20; TEMP 36.1–36.3; O2SAT 92–99; BMI 24.3
[2022-05-01] MEDS: methylPREDNISolone Sod Succ 125 MG/2 ML VIAL 60 MG IVPUSH ×4 (02:43→21:23)
[2022-05-01] MEDS: Doxycycline Hyclate 100 MG in 0.9 % Sodium Chloride 250 ML 166.67 MG IV ×2 (02:43→14:38)
[2022-05-01] MEDS: Pantoprazole Sodium 40 MG/10 ML VIAL IVPUSH (05:46)
[2022-05-01 06:38] LABS: Alanine Aminotransferase 18 U/L (0-31); Albumin Level 3.9 g/dL (3.5-5.0); Alkaline Phosphatase 135 U/L (39-117); Anion Gap 15 (12-20); Aspartate Amino Transferase 17 U/L (5-31); Bilirubin Total 0.4 mg/dL (0.0-1.0); Blood Urea Nitrogen 30 mg/dL (9-16); Calcium 9.2 mg/dL (8.4-10.2); Carbon Dioxide 30 mmol/L (22-29); Chloride 102 mmol/L (96-108); Creatinine Clr Calc Pharmacy 49.2; Estimated Glomerular Filt Rate 54; Glucose Fasting 162 mg/dL (60-99); Potassium 3.1 mmol/L (3.3-5.1); Sodium 144 mmol/L (135-145)
[2022-05-01 06:41] LABS: Hematocrit 32.6 % (37.0-47.0); Hemoglobin 10.1 g/dl (12.0-16.0); Imm Gran Abs Auto 0.03 X10*3/uL (0.00-0.03); Imm Gran Pct Auto 0.5 % (0.0-0.4); Lymphocytes Absolute Auto 0.4 X10*3/uL (1.2-4.9); MANUAL DIFF FLAG SCAN; Mean Corpuscular Hemoglobin 24.7 pg (27.0-33.0); Mean Corpuscular Volume 79.7 fL (80.0-98.0); Mean Platelet Volume 11.8 fL (9.4-12.3); Monocytes Absolute Auto 0.1 X10*3/uL (0.1-1.2); Monocytes Percent Auto 1.9 % (2-11); Neutrophils Absolute Auto 5.7 x10*3/uL (2.0-8.3); Neutrophils Percent Auto 90.6 % (45-73); Platelet Count 181 X10*3/uL (160-400); Red Blood Count 4.09 X10*6/uL (4.20-5.50); Red Cell Distribution Width 16.2 % (11.0-16.0); SCAN SMEAR FLAG 1; White Blood Count 6.3 X10*3/uL (4.8-10.8)
--- NOTE | 2022-05-01 06:46 | PC.RT ---
pt refusing to wear cpap overnight
[2022-05-01 07:33] LABS: SLIDE REVIEW VERIFIED
[2022-05-01 07:34] LABS: Glucose, Whole Blood 151 mg/dL (60-115)
[2022-05-01] MEDS: Insulin Lispro 100 UNIT/ML 3 ML VIAL SUBCUT ×3 (07:59→21:24)
[2022-05-01] MEDS: QUEtiapine Fumarate 50 MG TABLET PO ×2 (08:00→21:24)
[2022-05-01] MEDS: Furosemide 40 MG TABLET PO (08:00)
[2022-05-01] MEDS: Heparin Sodium,Porcine 5,000 UNIT/ML VIAL 5000 UNIT SUBCUT ×2 (08:00→14:50)
[2022-05-01] MEDS: Isosorbide Mononitrate 30 MG TAB.ER.24H PO (08:01)
[2022-05-01] MEDS: Sertraline HCL 100 MG TABLET 200 MG PO (08:01)
[2022-05-01] MEDS: carvediloL 12.5 MG TABLET PO (08:01)
[2022-05-01] MEDS: Folic Acid 1 MG TABLET PO (08:01)
[2022-05-01] MEDS: Losartan Potassium 50 MG TABLET 100 MG PO (08:01)
[2022-05-01] MEDS: Albuterol/Iprat 2.5/0.5MG 3 ML AMPUL.NEB INHALE ×3 (08:10→19:14)
[2022-05-01 08:50] LABS: B Type Natriuretic Peptide 582 pg/mL (<100)
--- NOTE | 2022-05-01 10:44 | HO.PM.IMPN ---
Subjective Subjective Date of Service: 05/01/22 Interval History: Episode of shortness of breath yesterday very likely CHF requiring Lasix. Good response to diuresis Review of Systems Denies chest pain Admits to short of breath with minimal movement Denies nausea vomiting diarrhea Denies fever chills Physical Exam Vital Signs: Vital Signs: Last Vital Signs Temp 97.1 F 05/01/22 08:00 Pulse 78 05/01/22 08:16 Resp 20 05/01/22 08:16 BP 162/78 H 05/01/22 08:00 Pulse Ox 94 05/01/22 08:00 O2 Del Method 05/01/22 08:00 O2 Flow Rate 5 05/01/22 08:00 FiO2 50 04/30/22 08:00 BMI result Body Mass Index 24.3 Const: Other: Awake alert no acute distress Resp: Other: Diminished throughout with expiratory wheezes at bases Cardio: Other: No S4; positive S1-S2; no S3 murmurs rubs or gallops GI: Other: Soft nontender nondistended normoactive bowel sounds Extrem: Other: No edema bilaterally Objective Data Active Medications Albuterol Sulfate (Albuterol Sulfate (0.083%) 2.5 Mg/3 Ml Vial.Neb) 2.5 mg INHALE Q4H PRN PRN Reason: Wheezing Albuterol/Ipratropium (Albuterol/Iprat 2.5/0.5mg 3 Ml Ampul.Neb) 3 ml INHALE RQ6H WHILE AWAKE [facility] Last Admin: 05/01/22 08:10 Dose: 3 ml Documented By: MANISH Carvedilol (Carvedilol 12.5 Mg Tablet) 12.5 mg PO BID [facility]; Protocol Last Admin: 05/01/22 08:01 Dose: 12.5 mg Documented By: BRIDGETT Folic Acid (Folic Acid 1 Mg Tablet) 1 mg PO DAILY [facility] Last Admin: 05/01/22 08:01 Dose: 1 mg Documented By: BRIDGETT Furosemide (Furosemide 40 Mg Tablet) 40 mg PO DAILY [facility]; Protocol Last Admin: 05/01/22 08:00 Dose: 40 mg Documented By: BRIDGETT Heparin Sodium (Porcine) (Heparin Sodium,Porcine 5,000 Unit/Ml Vial) 5,000 unit SUBCUT Q8H [facility] Last Admin: 05/01/22 08:00 Dose: 5,000 unit Documented By: BRIDGETT Doxycycline Hyclate 100 mg/ (Sodium Chloride) 250 mls @ 166.67 mls/hr IV Q12H [facility] Last Infusion: 05/01/22 04:29 Dose: 0 mls/hr Documented By: SHANTEL Ibuprofen (Ibuprofen 400 Mg Tablet) 400 mg PO Q6H PRN PRN Reason: Pain, Mild (Pain Scale 1-3) Last Admin: 04/30/22 21:07 Dose: 400 mg Documented By: SHANTEL Insulin Human Lispro (Insulin Lispro 100 Unit/Ml 3 Ml Vial) 0.1 - 10 unit SUBCUT QIDACHS [facility]; Protocol Last Admin: 05/01/22 07:59 Dose: 2 unit Documented By: BRIDGETT Isosorbide Mononitrate (Isosorbide Mononitrate 30 Mg Tab.Er.24h) 30 mg PO DAILY [facility]; Protocol Last Admin: 05/01/22 08:01 Dose: 30 mg Documented By: BRDIGETT Losartan Potassium (Losartan Potassium 50 Mg Tablet) 100 mg PO DAILY [facility]; Protocol Last Admin: 05/01/22 08:01 Dose: 100 mg Documented By: BRIDGETT Meclizine HCl (Meclizine Hcl 25 Mg Tablet) 25 mg PO TID PRN PRN Reason: dizziness Methylprednisolone Sodium Succinate (Methylprednisolone Sod Succ 125 Mg/2 Ml Vial) 60 mg IVPUSH Q6H [facility] Last Admin: 05/01/22 08:01 Dose: 60 mg Documented By: BRIDGETT Montelukast Sodium (Montelukast Sodium 10 Mg Tablet) 10 mg PO BEDTIME [facility] Last Admin: 04/30/22 21:07 Dose: 10 mg Documented By: SHANTEL Pantoprazole Sodium (Pantoprazole Sodium 40 Mg/10 Ml Vial) 40 mg IVPUSH DAILY@0630 [facility] Last Admin: 05/01/22 05:46 Dose: 40 mg Documented By: SHANTEL Potassium Chloride (Potassium Chloride Packet 20 Meq Packet) 40 meq PO ONCE ONE Stop: 05/01/22 10:40 Quetiapine Fumarate (Quetiapine Fumarate 50 Mg Tablet) 50 mg PO BID [facility] Last Admin: 05/01/22 08:00 Dose: 50 mg Documented By: BRIDGETT Sertraline HCl (Sertraline Hcl 100 Mg Tablet) 200 mg PO DAILY [facility] Last Admin: 05/01/22 08:01 Dose: 200 mg Documented By: BRIDGETT Trazodone HCl (Trazodone Hcl 50 Mg Tablet) 50 mg PO BEDTIME PRN PRN Reason: Sleep Last Admin: 04/29/22 23:38 Dose: 50 mg Documented By: SPENSER Labs CBC & Chem 7: 05/01/22 05:34 05/01/22 05:33 Labs: Laboratory Results - last 24 hr 04/30/22 04/30/22 04/30/22 11:34 15:47 19:39 MCV MCH MCHC RDW Plt Count MPV Immature Gran % (Auto) Neut % (Auto) Lymph % (Auto) Dewitt % (Auto) Eos % (Auto) Baso % (Auto) Lymph # (Auto) Dewitt # (Auto) Eos # (Auto) Baso # (Auto) Abs Immat Gran (auto) Absolute Neuts (auto) Absolute Nucleated RBC Nucleated RBC % (auto) Smear Tech's Comments Anion Gap Estim Creat Clear Calc Estimated GFR POC Glucose 150 H 205 H 154 H Fasting Glucose Calcium Total Bilirubin AST ALT Alkaline Phosphatase B-Natriuretic Peptide Total Protein Albumin 05/01/22 05/01/22 05/01/22 05:33 05:34 05:34 MCV 79.7 L MCH 24.7 L MCHC 31.0 RDW 16.2 H Plt Count 181 D MPV 11.8 Immature Gran % (Auto) 0.5 H Neut % (Auto) 90.6 H Lymph % (Auto) 7.0 L Dewitt % (Auto) 1.9 L Eos % (Auto) 0.0 Baso % (Auto) 0.0 Lymph # (Auto) 0.4 L Dewitt # (Auto) 0.1 Eos # (Auto) 0.0 Baso # (Auto) 0.0 Abs Immat Gran (auto) 0.03 Absolute Neuts (auto) 5.7 Absolute Nucleated RBC 0.000 Nucleated RBC % (auto) 0.0 Smear Tech's Comments VERIFIED Anion Gap 15 Estim Creat Clear Calc 49.2 Estimated GFR 54 POC Glucose Fasting Glucose 162 H Calcium 9.2 Total Bilirubin 0.4 AST 17 ALT 18 Alkaline Phosphatase 135 H B-Natriuretic Peptide 582 H Total Protein 7.0 Albumin 3.9 05/01/22 07:20 MCV MCH MCHC RDW Plt Count MPV Immature Gran % (Auto) Neut % (Auto) Lymph % (Auto) Dewitt % (Auto) Eos % (Auto) Baso % (Auto) Lymph # (Auto) Dewitt # (Auto) Eos # (Auto) Baso # (Auto) Abs Immat Gran (auto) Absolute Neuts (auto) Absolute Nucleated RBC Nucleated RBC % (auto) Smear Tech's Comments Anion Gap Estim Creat Clear Calc Estimated GFR POC Glucose 151 H Fasting Glucose Calcium Total Bilirubin AST ALT Alkaline Phosphatase B-Natriuretic Peptide Total Protein Albumin Microbiology Microbiology Results: Microbiology 04/28/22 20:50 Blood Culture - Preliminary Blood - Venous No growth after 48 hours. 04/28/22 19:33 Blood Culture - Preliminary Blood - Venous No growth after 48 hours. Assessment and Plan (1) Acute and chronic respiratory failure with hypoxia: Status: Acute (2) HFrEF (heart failure with reduced ejection fraction): Status: Acute (3) Essential hypertension: Status: Acute Plan 61year-old female with known history of type 2 diabetes hyperlipidemia nonischemic cardiomyopathy COPD with ongoing tobacco abuse presents with worsening shortness of breath ultimately requiring BiPAP. Admitted to ICU where she was successfully weaned to nasal O2 in transfer to general medical floor 1. Acute on chronic hypoxemic respiratory failure secondary to COPD exacerbation -continue DuoNebs as scheduled. Titrate O2 to baseline of 6 L -continue IV steroids; will increase to 60 mg q.6 hours for 48 hours -given sputum production will add doxycycline 100 mg IV q.12 hours -encourage smoking cessation 2. Hypertension -poorly controlled -increase Coreg to 25 b.i.d. -continue all other therapies 3.HFrEF -fair response to Lasix however still short of breath -DC p.o. Lasix in favor of IV Lasix 40 q.12 -follow enals/divalents 3. Diabetes type 2 -elevated sugars secondary to steroids -lispro correctional scale Full code Heparin Or require ongoing hospitalization for treatment of COPD exacerbation with IV steroids and IV antibiotics Time Spent With Patient Time: Total time managing care of this patient today ____ minutes. Quality Stroke Does the patient have a stroke diagnosis?: No VTE Prior VTE?: No VTE Risk Level:: Medical - moderate - high VTE Device Contraindication: N/A - Device Ordered VTE Drug Contraindication: N/A - Med Ordered
[2022-05-01 11:33] LABS: Glucose, Whole Blood 206 mg/dL (60-115)
[2022-05-01] MEDS: Potassium Chloride Packet 20 MEQ PACKET 40 MEQ PO (12:07)
--- NOTE | 2022-05-01 12:48 | MHC.SL.SWA ---
Speech Pathologist Impression: Risk of Aspiration Due to: Medically Fragile Dysphasia Diet Status: Recommend patient continue on Chopped/Advanced with THIN liquids Pills WHOLE with puree or liquid. Patient would benefit from nutrition consult given poor po intake at this time. Liquid Consistency and Strategies for Safe Swallow: Liquid Intake Recommendation: Thin Liquid Intake Strategies: Small Sips Solid Food Consistency: Dietary Recommendations: Chopped/Advanced (NDD3) Additional Modifications to Solid Foods: Add sauces/gravies Oral Medication Intake: Whole with Puree Please contact the pharmacy regarding appropriate crushable or liquid drug formulations that are available whenever modified delivery is recommended. Compensatory Strategies and Precautions to be Taken for Safe Swallow: Sitting Upright (90 deg) Liquids from Cup Liquids from Straw Small Bites and Sips Alternate Liquids/Solids Supervision While Eating and Drinking for Safe Swallow: Intermittent Supervision Foods to Avoid: Avoid sticky, hard, tough to chew foods Swallowing Recommended Treatments: Compens. Strategy Educat. Recommendation for Speech: Inpatient Speech Therapy Modified Barium Swallow Study - Outpatient Comment: Patient seen X2 today to check on toleration of recommended diet. 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 In a.m. patient was reporting some discomfort swallowing, stated that she felt soreness on the left side of her throat. TUBE COATER returned at lunch. Patient had already eaten the container of ice cream on tray but refused all other items. When asked to try a bite of the meal, Patient adamantly stated that she wasn't hungry and had no appetite. When I inquired if it was the type of food that she was not finding appetizing, patient stated that nothing would be appetizing to her at this time. Patient then also refused to drink the potassium supplement the nurse wanted her to have, and became quite defensive when encouraged to drink it. Diet appears appropriate consistency, recommend Patient continue on Chopped/Advanced with THIN liquids Pills WHOLE with puree or liquid. Patient would benefit from nutrition consult given poor po intake at this time. Frequency/Duration: Date Range for Service Req: Timeline to reassess: Die Try Out Worker Clinican/Clinical Fellow: No Supervisory Statement: I have reviewed and agree with the student/clinical fellow's documentation: N/A Speech Language Pathologist: Teresa Garcia M.A., CCC-TUBE COATER
--- NOTE | 2022-05-01 14:33 | P.CDIC_ITS ---
CDI Concurrent Query Documentation Clarification: PHYSICIAN'S DOCUMENTATION REQUEST Date of Query: 05/01/22 1434 Patient Name: Paola Romero Admit Date: 04/28/22 Dear Doctor, A review of the medical record indicates additional documentation may be needed. Please review below and update the documentation accordingly. Clinical Indicators: Risk Factors/Clinical Indicators/Treatments per MD progress note 05/01/22: HFrEF -fair response to Lasix however still sh ort of breath -DC p.o. Lasix in favor of IV Lasix 40 q .12 -follow enals/divalents Clarify which of the following accurately represents the acuity of the [insert diagnosis]. Possible options might include: * Acute * Acute on chronic * Exacerbated/Decompensated * Compensated * Chronic stable condition * Other ? please specify * Unable to determine Use of terms such as suspected, likely, concern for, or probable (associated with a specific diagnosis that is being evaluated, monitored, or treated as if it exists) are acceptable and can be coded in the inpatient setting, when documented at the time of discharge. Thank you, Jewell Hernandez RN Extension: [phone] Please use your independent medical judgment in providing your response. THIS QUERY IS PART OF THE PERMANENT MEDICAL RECORD Provider Response: Other Other Diagnosis: Acute on chronic
[2022-05-01 15:41] LABS: Glucose, Whole Blood 98 mg/dL (60-115)
[2022-05-01] MEDS: Furosemide 40 MG/4 ML VIAL IVPUSH (16:42)
[2022-05-01 19:28] LABS: Glucose, Whole Blood 231 mg/dL (60-115)
[2022-05-01] MEDS: carvediloL 25 MG TABLET PO (21:24)
[2022-05-01] MEDS: traZODone HCL 50 MG TABLET PO (21:24)
[2022-05-01] MEDS: Montelukast Sodium 10 MG TABLET PO (21:24)
[2022-05-02] VITALS (9 sets, daily range): BP systolic 142–173; BP diastolic 60–97; PULSE 65–81; RESP 16–20; TEMP 35.8–37; O2SAT 90–100; BMI 24.7
[2022-05-02] MEDS: Heparin Sodium,Porcine 5,000 UNIT/ML VIAL 5000 UNIT SUBCUT ×4 (01:55→22:52)
[2022-05-02] MEDS: Doxycycline Hyclate 100 MG in 0.9 % Sodium Chloride 250 ML 166.67 MG IV ×2 (01:55→15:23)
[2022-05-02] MEDS: methylPREDNISolone Sod Succ 125 MG/2 ML VIAL 60 MG IVPUSH ×3 (01:55→15:22)
[2022-05-02] MEDS: Pantoprazole Sodium 40 MG/10 ML VIAL IVPUSH (06:03)
[2022-05-02 06:10] LABS: MANUAL DIFF FLAG NO
[2022-05-02 06:36] LABS: Basophils Percent Auto 0.2 % (0-2); Hematocrit 34.2 % (37.0-47.0); Hemoglobin 10.8 g/dl (12.0-16.0); Imm Gran Abs Auto 0.06 X10*3/uL (0.00-0.03); Lymphocytes Absolute Auto 0.4 X10*3/uL (1.2-4.9); Mean Corpuscular HGB Conc 31.6 g/dl (31.0-35.0); Mean Corpuscular Hemoglobin 25.2 pg (27.0-33.0); Mean Corpuscular Volume 79.9 fL (80.0-98.0); Monocytes Absolute Auto 0.1 X10*3/uL (0.1-1.2); Monocytes Percent Auto 2.2 % (2-11); Neutrophils Absolute Auto 5.4 x10*3/uL (2.0-8.3); Neutrophils Percent Auto 89.6 % (45-73); Platelet Count 194 X10*3/uL (160-400); Red Blood Count 4.28 X10*6/uL (4.20-5.50); Red Cell Distribution Width 16.5 % (11.0-16.0)
[2022-05-02 06:37] LABS: Alanine Aminotransferase 15 U/L (0-31); Albumin Level 3.8 g/dL (3.5-5.0); Alkaline Phosphatase 127 U/L (39-117); Anion Gap 14 (12-20); Aspartate Amino Transferase 15 U/L (5-31); Bilirubin Total 0.4 mg/dL (0.0-1.0); Blood Urea Nitrogen 33 mg/dL (9-16); Calcium 8.8 mg/dL (8.4-10.2); Carbon Dioxide 30 mmol/L (22-29); Chloride 101 mmol/L (96-108); Creatinine Clr Calc Pharmacy 52.6; Estimated Glomerular Filt Rate 58; Glucose Fasting 187 mg/dL (60-99); Potassium 3.8 mmol/L (3.3-5.1); Sodium 141 mmol/L (135-145)
--- NOTE | 2022-05-02 07:00 | CA_ITS ---
Transthoracic Echocardiogram Patient (Last, First, Middle): Paola Romero, Gender: Female Date of : 1960 Age: 61 Procedure Date: 05/02/2022 Procedure Type: Transthoracic Echocardiogram Location: [facility] [place] Height: 157.48 cm Weight: 61.24 kg BSA: 1.62 m2 Heart Rate: 75 bpm BP: 143 / 91 mmHg Mold Dresser: SB Referring MD: Jacobo Villarreal DO Supervisor Heading: Bhupendra Germain MD Symptoms: chf Study Quality: Adequate w contrast ECG Rhythm: Sinus Conclusions: - 1. Mildly to moderately reduced LV systolic function with LVEF of 40-45% with grade 1 diastolic dysfunction 2. Moderately dilated right ventricle with borderline systolic function 3. Mildly dilated left atrium 4. Mild mitral regurgitation 5. Moderately elevated right ventricular systolic pressure 6. No gross pericardial effusion Findings Procedure Information Contrast agent, definity, is being given per protocol without apparent complications. Left Ventricle Normal left ventricular cavity size. There is normal left ventricular wall thickness. The left ventricular systolic function is mild to moderately decreased. The visually estimated ejection fraction is between 40-45%. Spectral Doppler is indicative of an impaired relaxation filling pattern. E/E prime ratio is <8, consistent with normal filling pressures. Evidence suggests grade I (mild) diastolic dysfunction. Right Ventricle Moderately increased right ventricular cavity size. There is borderline right ventricular systolic function. Atria The left atrium is mildly dilated. Interatrial shunt cannot be excluded. The right atrium was not well visualized. Aortic Valve Normal aortic valve structure and function. There is no aortic valve stenosis. There is no aortic valve regurgitation. Mitral Valve There is mild anterior and posterior mitral leaflet thickening. There is mild mitral valve regurgitation. There is no mitral valve stenosis. Pulmonic Valve The pulmonic valve was not well visualized. Tricuspid Valve Likely normal tricuspid valve structure and function. There is mild tricuspid valve regurgitation. Normal right atrial pressure. Moderate pulmonary hypertension is present. Great Vessels All visible segments of the aorta are normal in size. The pulmonary artery was not well visualized. Venous The inferior vena cava is normal in size and collapses greater than 50% with inspiration. Pericardium/Pleural There is no evidence of pericardial effusion. Prior Study Comparison Changes noted compared to prior study dated: 02/16/2021. LV systolic function is improved Measurements 2D Linear Measurements IVSd: 1.40 0.6-0.9/0.6-1.0 cm LVIDd: 4.75 3.9-5.3/4.2-5.9 cm LVIDd Index: 2.93 2.4-3.2/2.2-3.1 cm/m2 LVIDs: 3.46 2.0-3.6 cm LVPWd: 0.89 0.7-1.1 cm LA Diam: 3.90 2.7-3.8/3.0-4.0 cm LAIDs Index: 2.41 1.5-2.3 cm/m2 LV Mass: 251.57 67-162/88-224 g LV Mass Index: 155.29 43-95/49-115 g/m2 LVOT Diam: 2.20 3.0+(-)1.3 cm 2D Systolic Function EF 4C: 39.50 >55% EF 2C: 48.50 >55% EF BiP: 45.00 >55% Mitral Valve MV Pk E: 0.40 MV PK A: 0.59 MV Decel Time: 108.00 E/A: 0.70 E'Lateral: 4.35 E'Medial: 2.94 E/E' Med: 13.50 E/E' Lat: 9.10 PHT: 32.00 MVA PHT: 6.88 Decel [place]: 3.69 Aortic Valve AoV Pk Ambrosio: 0.97 AoV Pk Grad: 4.00 PEPITO: 2.84 LVOT LVOT Pk Ambrosio: 0.71 LVOT Mn Ambrosio: 0.52 LVOT VTI: 0.12 LVOT Pk Grad: 2.00 LVOT Mn Grad: 1.00 LVOT Diam: 2.20 LVOT Area: 3.80 Diastolic Function MV Pk E: 0.40 MV Pk A: 0.59 E/A: 0.70 E'Medial: 2.94 E/E' Med: 13.50 E' Laterial: 4.35 E/E' Lat: 9.10 Right Ventricle TAPSE (mm): 17.50 TVS' Ambrosio: 15.90 Tricuspid Valve TR Pk Ambrosio: 3.40 TR Pk Grad: 46.00 RA Press: 3.00 RVSP: 49.00 Great Vessels Aorta Sinus of Valsalva: 3.50 2.0-3.5 cm Ao Asc: 3.60 2.1-3.4 cm Pulmonary Valve PV Pk Ambrosio: 0.73 Peak PV Grad: 2.00 Updated in Other Vendor System with Status of Final Bhupendra Germain MD electronically signed on 05/02/2022 4:31:43 PM with status of Final
[2022-05-02 07:39] LABS: Glucose, Whole Blood 167 mg/dL (60-115)
[2022-05-02] MEDS: Albuterol/Iprat 2.5/0.5MG 3 ML AMPUL.NEB INHALE ×3 (07:52→20:06)
[2022-05-02] MEDS: Isosorbide Mononitrate 30 MG TAB.ER.24H PO (07:59)
[2022-05-02] MEDS: Folic Acid 1 MG TABLET PO (07:59)
[2022-05-02] MEDS: Losartan Potassium 50 MG TABLET 100 MG PO (07:59)
[2022-05-02] MEDS: QUEtiapine Fumarate 50 MG TABLET PO ×2 (07:59→21:28)
[2022-05-02] MEDS: carvediloL 25 MG TABLET PO ×2 (07:59→21:28)
[2022-05-02] MEDS: Furosemide 40 MG/4 ML VIAL IVPUSH (08:01)
[2022-05-02] MEDS: Insulin Lispro 100 UNIT/ML 3 ML VIAL SUBCUT ×3 (08:02→21:28)
[2022-05-02 09:05] LABS: B Type Natriuretic Peptide 332 pg/mL (<100)
[2022-05-02] MEDS: Sertraline HCL 100 MG TABLET 200 MG PO (09:07)
[2022-05-02 11:35] LABS: Glucose, Whole Blood 177 mg/dL (60-115)
--- NOTE | 2022-05-02 14:10 | HO.PM.IMPN ---
Subjective Subjective Date of Service: 05/02/22 Interval History: Breathing improved; no further VT noted Review of Systems Denies chest pain Admits to short of breath with minimal movement Denies nausea vomiting diarrhea Denies fever chills Physical Exam Vital Signs: Vital Signs: Last Vital Signs Temp 98.6 F 05/02/22 11:18 Pulse 72 05/02/22 13:34 Resp 18 05/02/22 13:34 BP 143/60 H 05/02/22 11:18 Pulse Ox 94 05/02/22 11:18 O2 Del Method 05/02/22 11:18 O2 Flow Rate 5 05/02/22 11:18 FiO2 50 04/30/22 08:00 BMI result Body Mass Index 24.7 Const: Other: Awake alert no acute distress Resp: Other: Diminished throughout with expiratory wheezes at bases Cardio: Other: No S4; positive S1-S2; no S3 murmurs rubs or gallops GI: Other: Soft nontender nondistended normoactive bowel sounds Extrem: Other: No edema bilaterally Objective Data Active Medications Albuterol Sulfate (Albuterol Sulfate (0.083%) 2.5 Mg/3 Ml Vial.Neb) 2.5 mg INHALE Q4H PRN PRN Reason: Wheezing Albuterol/Ipratropium (Albuterol/Iprat 2.5/0.5mg 3 Ml Ampul.Neb) 3 ml INHALE RQ6H WHILE AWAKE [facility] Last Admin: 05/02/22 13:33 Dose: 3 ml Documented By: MANISH Carvedilol (Carvedilol 25 Mg Tablet) 25 mg PO BID [facility]; Protocol Last Admin: 05/02/22 07:59 Dose: 25 mg Documented By: LISSETT Folic Acid (Folic Acid 1 Mg Tablet) 1 mg PO DAILY [facility] Last Admin: 05/02/22 07:59 Dose: 1 mg Documented By: LISSETT Furosemide (Furosemide 40 Mg/4 Ml Vial) 40 mg IVPUSH BID@0900,1800 [facility]; Protocol Last Admin: 05/02/22 08:01 Dose: 40 mg Documented By: LISSETT Heparin Sodium (Porcine) (Heparin Sodium,Porcine 5,000 Unit/Ml Vial) 5,000 unit SUBCUT Q8H [facility] Last Admin: 05/02/22 08:01 Dose: 5,000 unit Documented By: LISSETT Doxycycline Hyclate 100 mg/ (Sodium Chloride) 250 mls @ 166.67 mls/hr IV Q12H [facility] Last Infusion: 05/02/22 04:33 Dose: 0 mls/hr Documented By: HALEIGH Ibuprofen (Ibuprofen 400 Mg Tablet) 400 mg PO Q6H PRN PRN Reason: Pain, Mild (Pain Scale 1-3) Last Admin: 04/30/22 21:07 Dose: 400 mg Documented By: ODRISTyler Insulin Human Lispro (Insulin Lispro 100 Unit/Ml 3 Ml Vial) 0.1 - 10 unit SUBCUT QIDACHS [facility]; Protocol Last Admin: 05/02/22 11:49 Dose: 2 unit Documented By: LISSETT Isosorbide Mononitrate (Isosorbide Mononitrate 30 Mg Tab.Er.24h) 30 mg PO DAILY [facility]; Protocol Last Admin: 05/02/22 07:59 Dose: 30 mg Documented By: LISSETT Losartan Potassium (Losartan Potassium 50 Mg Tablet) 100 mg PO DAILY [facility]; Protocol Last Admin: 05/02/22 07:59 Dose: 100 mg Documented By: LISSETT Meclizine HCl (Meclizine Hcl 25 Mg Tablet) 25 mg PO TID PRN PRN Reason: dizziness Methylprednisolone Sodium Succinate (Methylprednisolone Sod Succ 125 Mg/2 Ml Vial) 60 mg IVPUSH Q6H [facility] Last Admin: 05/02/22 07:59 Dose: 60 mg Documented By: LISSETT Montelukast Sodium (Montelukast Sodium 10 Mg Tablet) 10 mg PO BEDTIME [facility] Last Admin: 05/01/22 21:24 Dose: 10 mg Documented By: HALEIGH Quetiapine Fumarate (Quetiapine Fumarate 50 Mg Tablet) 50 mg PO BID [facility] Last Admin: 05/02/22 07:59 Dose: 50 mg Documented By: LISSETT Sertraline HCl (Sertraline Hcl 100 Mg Tablet) 200 mg PO DAILY [facility] Last Admin: 05/02/22 09:07 Dose: 200 mg Documented By: LISSETT Trazodone HCl (Trazodone Hcl 50 Mg Tablet) 50 mg PO BEDTIME PRN PRN Reason: Sleep Last Admin: 05/01/22 21:24 Dose: 50 mg Documented By: HALEIGH Labs CBC & Chem 7: 05/02/22 05:53 05/02/22 05:53 Labs: Laboratory Results - last 24 hr 05/01/22 05/01/22 05/02/22 15:11 19:12 05:53 MCV 79.9 L MCH 25.2 L MCHC 31.6 RDW 16.5 H Plt Count 194 MPV 12.0 Immature Gran % (Auto) 1.0 H Neut % (Auto) 89.6 H Lymph % (Auto) 7.0 L [place] % (Auto) 2.2 Eos % (Auto) 0.0 Baso % (Auto) 0.2 Lymph # (Auto) 0.4 L [place] # (Auto) 0.1 Eos # (Auto) 0.0 Baso # (Auto) 0.0 Abs Immat Gran (auto) 0.06 H Absolute Neuts (auto) 5.4 Absolute Nucleated RBC 0.000 Nucleated RBC % (auto) 0.0 Anion Gap Estim Creat Clear Calc Estimated GFR POC Glucose 98 231 H Fasting Glucose Calcium Total Bilirubin AST ALT Alkaline Phosphatase B-Natriuretic Peptide Total Protein Albumin 05/02/22 05/02/22 05/02/22 05:53 05:53 07:24 MCV MCH MCHC RDW Plt Count MPV Immature Gran % (Auto) Neut % (Auto) Lymph % (Auto) [place] % (Auto) Eos % (Auto) Baso % (Auto) Lymph # (Auto) [place] # (Auto) Eos # (Auto) Baso # (Auto) Abs Immat Gran (auto) Absolute Neuts (auto) Absolute Nucleated RBC Nucleated RBC % (auto) Anion Gap 14 Estim Creat Clear Calc 52.6 Estimated GFR 58 POC Glucose 167 H Fasting Glucose 187 H Calcium 8.8 Total Bilirubin 0.4 AST 15 D ALT 15 Alkaline Phosphatase 127 H B-Natriuretic Peptide 332 H Total Protein 7.0 Albumin 3.8 05/02/22 11:17 MCV MCH MCHC RDW Plt Count MPV Immature Gran % (Auto) Neut % (Auto) Lymph % (Auto) [place] % (Auto) Eos % (Auto) Baso % (Auto) Lymph # (Auto) [place] # (Auto) Eos # (Auto) Baso # (Auto) Abs Immat Gran (auto) Absolute Neuts (auto) Absolute Nucleated RBC Nucleated RBC % (auto) Anion Gap Estim Creat Clear Calc Estimated GFR POC Glucose 177 H Fasting Glucose Calcium Total Bilirubin AST ALT Alkaline Phosphatase B-Natriuretic Peptide Total Protein Albumin Assessment and Plan (1) Acute and chronic respiratory failure with hypoxia: Status: Acute (2) HFrEF (heart failure with reduced ejection fraction): Status: Acute Plan 61year-old female with known history of type 2 diabetes hyperlipidemia nonischemic cardiomyopathy COPD with ongoing tobacco abuse presents with worsening shortness of breath ultimately requiring BiPAP. Admitted to ICU where she was successfully weaned to nasal O2 in transfer to general medical floor 1. Acute on chronic hypoxemic respiratory failure secondary to COPD exacerbation -continue DuoNebs as scheduled. Titrate O2 to baseline of 6 L -continue IV steroids; will increase to 60 mg q.6 hours for 48 hours -given sputum production will add doxycycline 100 mg IV q.12 hours -encourage smoking cessation 2. Hypertension -poorly controlled -increase Coreg to 25 b.i.d. -continue all other therapies 3.HFrEF -fair response to Lasix however still short of breath -DC p.o. Lasix in favor of IV Lasix 40 q.12 -follow enals/divalents 4.NSVT -in backdrop of hypo magnesemia -check 2D echo -long discussion with patient via manager stone patient does not wish any invasive workup other than echo. She would not accept any therapies related to same 3. Diabetes type 2 -elevated sugars secondary to steroids -lispro correctional scale DNR DNI Heparin Or require ongoing hospitalization for treatment of COPD exacerbation with IV steroids and IV antibiotics Time Spent With Patient Time: Total time managing care of this patient today ____ minutes. Quality Stroke Does the patient have a stroke diagnosis?: No VTE Prior VTE?: No VTE Risk Level:: Medical - moderate - high VTE Device Contraindication: N/A - Device Ordered VTE Drug Contraindication: N/A - Med Ordered
--- NOTE | 2022-05-02 14:13 | PM.EVENT ---
Event Note Date of Service: 05/02/22 Event Note: Discussed with patient via an brim stretcher. She states she has filled out with a MOLST form with Dr. Terrazas and is wishing DNR DNI. Code status updated in a computer Time Spent With Patient Time: Total time managing care of this patient today ____ minutes.
--- NOTE | 2022-05-02 15:00 | MHC.SL.SWA ---
Speech Pathologist Impression: Dysphagia Risk of Aspiration Due to: Medically Fragile Dysphasia Diet Status: Recommend patient continue on Chopped/Advanced with THIN liquids Pills WHOLE with puree or liquid. Patient would benefit from nutrition consult given poor po intake at this time. Liquid Consistency and Strategies for Safe Swallow: Liquid Intake Recommendation: Thin Liquid Intake Strategies: Small Sips Solid Food Consistency: Dietary Recommendations: Chopped/Advanced (NDD3) Additional Modifications to Solid Foods: Add sauces/gravies Oral Medication Intake: Whole with Puree Please contact the pharmacy regarding appropriate crushable or liquid drug formulations that are available whenever modified delivery is recommended. Compensatory Strategies and Precautions to be Taken for Safe Swallow: Sitting Upright (90 deg) Liquids from Cup Liquids from Straw Small Bites and Sips Alternate Liquids/Solids Supervision While Eating and Drinking for Safe Swallow: Intermittent Supervision Foods to Avoid: Avoid sticky, hard, tough to chew foods Swallowing Recommended Treatments: Compens. Strategy Educat. Recommendation for Speech: Inpatient Speech Therapy Modified Barium Swallow Study - Outpatient Bleach Plant Operator Clinican/Clinical Fellow: No Supervisory Statement: I have reviewed and agree with the student/clinical fellow's documentation: N/A Speech Language Pathologist: Astrid Oropeza M.A., CCC-CHEMISTRY TUTOR
--- NOTE | 2022-05-02 15:09 | MHC.CM.PN ---
per rounds pt to have echo and is till in ch[facility] no dc today plan remains home
[2022-05-02 16:14] LABS: Glucose, Whole Blood 149 mg/dL (60-115)
[2022-05-02 19:42] LABS: Glucose, Whole Blood 311 mg/dL (60-115)
[2022-05-02] MEDS: Montelukast Sodium 10 MG TABLET PO (21:28)
--- NOTE | 2022-05-02 21:55 | PM.EVENT ---
Event Note Date of Service: 05/02/22 Event Note: pt lost peripheral IV access. multiple attempts were made to place line with no success. will give po solumedrol and po doxy until a PIV is established Time Spent With Patient Time: Total time managing care of this patient today ____ minutes.
[2022-05-02] MEDS: predniSONE 20 MG TABLET 40 MG PO (22:52)
[2022-05-02] MEDS: Doxycycline Monohydrate 100 MG CAPSULE PO (22:52)
[2022-05-03 02:59] VITALS: BP 170/83; PULSE 73; RESP 18; TEMP 36.7; O2SAT 97
[2022-05-03 06:00] VITALS: BMI 24.7
[2022-05-03 06:31] LABS: MANUAL DIFF FLAG NO
[2022-05-03 06:37] LABS: Hematocrit 37.1 % (37.0-47.0); Hemoglobin 11.6 g/dl (12.0-16.0); Imm Gran Abs Auto 0.05 X10*3/uL (0.00-0.03); Imm Gran Pct Auto 0.7 % (0.0-0.4); Lymphocytes Absolute Auto 0.6 X10*3/uL (1.2-4.9); Lymphocytes Percent Auto 7.9 % (20-40); Mean Corpuscular HGB Conc 31.3 g/dl (31.0-35.0); Mean Corpuscular Hemoglobin 25.2 pg (27.0-33.0); Mean Corpuscular Volume 80.7 fL (80.0-98.0); Mean Platelet Volume 11.6 fL (9.4-12.3); Monocytes Absolute Auto 0.3 X10*3/uL (0.1-1.2); Monocytes Percent Auto 4.2 % (2-11); Neutrophils Absolute Auto 6.3 x10*3/uL (2.0-8.3); Neutrophils Percent Auto 87.2 % (45-73); Platelet Count 185 X10*3/uL (160-400); Red Cell Distribution Width 16.6 % (11.0-16.0); White Blood Count 7.2 X10*3/uL (4.8-10.8)
[2022-05-03 07:28] VITALS: BP 185/84; PULSE 76; RESP 20; TEMP 36.1; O2SAT 91
[2022-05-03 08:15] LABS: Glucose, Whole Blood 146 mg/dL (60-115)
[2022-05-03 08:22] VITALS: BP 144/84
[2022-05-03] MEDS: Heparin Sodium,Porcine 5,000 UNIT/ML VIAL 5000 UNIT SUBCUT (09:07)
[2022-05-03] MEDS: Sertraline HCL 100 MG TABLET 200 MG PO (09:08)
[2022-05-03] MEDS: Isosorbide Mononitrate 30 MG TAB.ER.24H PO (09:08)
[2022-05-03] MEDS: carvediloL 25 MG TABLET PO (09:08)
[2022-05-03] MEDS: QUEtiapine Fumarate 50 MG TABLET PO (09:08)
[2022-05-03] MEDS: Losartan Potassium 50 MG TABLET 100 MG PO (09:08)
[2022-05-03] MEDS: Folic Acid 1 MG TABLET PO (09:08)
--- NOTE | 2022-05-03 11:05 | P.DS_ITS ---
DS: Providers Provider Date of Service: 05/03/22 Date of admission: 04/28/22 23:45 Date of discharge: 05/03/22 Primary care physician: Analisa Chavez MD DS: Diagnosis Discharge Diagnosis (1) Acute and chronic respiratory failure with hypoxia: Status: Acute (2) HFrEF (heart failure with reduced ejection fraction): Status: Acute DS: Summary Hospital Course Hospital Course: Patient is 61-year-old female with underlying history of COPD dependent on oxygen at 6 L nasal cannula, hypertension, nonischemic cardiomyopathy, CHF with moderate to severe LV systolic dysfunction and ejection fraction of 30-35% , moderate mitral regurgitation, moderately elevated right ventricular systolic pressure, severe global hypokinesis. ?per echo in February of 2021. ?She also has anxiety, depression, diabetes, hypertension, obstructive sleep apnea, osteoporosis, history of SVT and tobacco abuse. Patient had presented to emergency room yesterday evening with complaints of shortness of breath, increased cough but no fever or sputum production.? She had also experience a mechanical fall at home after slipping and falling and reported shoulder, chest and left knee pain. ?Her workup in the ER was not significant with session hypoxia, other vital signs were otherwise stable, no white count, no electrolyte abnormality low magnesium had not been checked.? Her respiratory panel was completely negative including COVID. It was reported by the emergency physician the patient initially had an O2 sat in the mid 70s to 80s, she had been placed on CPAP and did well with that so much that they removed it, patient had received steroids, Dilaudid and Ativan.? About 3 hours later the patient suddenly became dyspneic leading to place her on BiPAP, at the time also the patient had developed a 5 minute run of ventricular tachycardia with a pulse for which she received 150 mg of amiodarone converting back to sinus rhythm. Patient was successfully weaned off BiPAP and transferred to the telemetry unit. She continued to have shortness of breath; steroids were started along with doxycycline for productive cough. Sustained VT thought to be related to hypo magnesemia; 2D echo demonstrated no wall motion abnormalities with LVEF estimated at 45 %. Long discussion with patient with observer electrical prospecting; states she is DNR DNI and has signed paperwork and Dr. Terrazas is office. When questioned about further workup she adamantly denied and stated she wanted to be discharged. She will be discharged to home to complete a course of prednisone and her Coreg has been increased. She follow-up with her PCP as scheduled Time Spent with Patient Time attestation: Total time managing care of this patient today ____ minutes. Discharge coordination time: Greater than 30 minutes Quality: Safe Use of Opioids Does Pt have an Active Cancer Diagnosis on the Problem List?: No Quality: Stroke Does the patient have a stroke diagnosis?: No Physical Exam Vital Signs: Vital Signs: Last Vital Signs Temp 97.0 F 05/03/22 07:28 Pulse 76 05/03/22 07:28 Resp 20 05/03/22 07:28 BP 144/84 H 05/03/22 08:22 Pulse Ox 91 L 05/03/22 07:28 O2 Del Method 05/03/22 07:28 O2 Flow Rate 3 05/03/22 07:28 FiO2 50 04/30/22 08:00 BMI result Body Mass Index 24.7 Const: Other: Awake alert no acute distress Resp: Other: Diminished throughout with expiratory wheezes at bases Cardio: Other: No S4; positive S1-S2; no S3 murmurs rubs or gallops GI: Other: Soft nontender nondistended normoactive bowel sounds Extrem: Other: No edema bilaterally DS: Data Data Completed and Pending Completed studies during hospitalization [Text1]: Procedures Assistance with Respiratory Ventilation, Less than 24 Consecutive Hours, Continuous Positive Airway Pressure (02/23/22) Labs on day of discharge: Laboratory Results - last 24 hr 05/02/22 05/02/22 05/02/22 11:17 16:06 19:20 WBC RBC Hgb Hct MCV MCH MCHC RDW Plt Count MPV Immature Gran % (Auto) Neut % (Auto) Lymph % (Auto) [place] % (Auto) Eos % (Auto) Baso % (Auto) Lymph # (Auto) [place] # (Auto) Eos # (Auto) Baso # (Auto) Abs Immat Gran (auto) Absolute Neuts (auto) Absolute Nucleated RBC Nucleated RBC % (auto) POC Glucose 177 H 149 H 311 H 05/03/22 05/03/22 06:02 07:35 WBC 7.2 RBC 4.60 Hgb 11.6 L Hct 37.1 MCV 80.7 MCH 25.2 L MCHC 31.3 RDW 16.6 H Plt Count 185 MPV 11.6 Immature Gran % (Auto) 0.7 H Neut % (Auto) 87.2 H Lymph % (Auto) 7.9 L [place] % (Auto) 4.2 Eos % (Auto) 0.0 Baso % (Auto) 0.0 Lymph # (Auto) 0.6 L [place] # (Auto) 0.3 Eos # (Auto) 0.0 Baso # (Auto) 0.0 Abs Immat Gran (auto) 0.05 H Absolute Neuts (auto) 6.3 Absolute Nucleated RBC 0.000 Nucleated RBC % (auto) 0.0 POC Glucose 146 H Preliminary micro results at discharge 04/28/22 20:50 Blood Culture - Preliminary Blood - Venous No growth after 48 hours. 04/28/22 19:33 Blood Culture - Preliminary Blood - Venous No growth after 48 hours. Discharge Plan Discharge Anticipated Discharge Date/Time: 05/03/22 11:00 Patient Disposition: Home Health Service Discharge Diagnosis: Acute on chronic respiratory failure with hypoxemia secondary to COPD exacerbation Referrals: Analisa Carr MD [Primary Care Provider] - 1 Week Discharge Medications: New carvedilol 25 mg Tablet 25 mg PO BID Qty: 60 0RF Protocol: Hold for SBP/HR < HOLD for SBP < : 90 HOLD for HR < : 60 prednisone 10 mg tablet See Rx Instructions .Route .COMPLEX Qty: 45 0RF Rx Instructions: 10 mg orally; 5 tabs p.o. daily x3 days; 4 tabs p.o. daily x3 days; 3 tabs daily x3 days; 2 tabs daily x3 days; 1 tab daily x3 days Continued sertraline 100 mg tablet 200 mg PO DAILY 90 Days Qty: 180 1RF quetiapine 50 mg tablet 50 mg PO BID 90 Days Qty: 180 1RF isosorbide mononitrate 30 mg tablet extended release 24 hr 30 mg PO DAILY 90 Days Qty: 90 3RF Protocol: Hold for SBP< HOLD for SBP < : 90 montelukast 10 mg tablet 10 mg PO BEDTIME Qty: 30 11RF Spiriva with HandiHaler 18 mcg capsule, w/inhalation device 1 cap inhalation DAILY 30 Days Qty: 30 5RF meclizine 25 mg tablet 25 mg PO TID PRN (Reason: dizziness) 30 Days Qty: 90 0RF losartan 50 mg tablet 100 mg PO DAILY Qty: 60 0RF Protocol: Hold for SBP< HOLD for SBP < : 90 furosemide 40 mg tablet 40 mg PO DAILY Qty: 30 3RF trazodone 50 mg tablet 50 - 100 mg PO BEDTIME PRN (Reason: Sleep) folic acid 1 mg Tablet 1 mg PO DAILY Qty: 90 4RF fluticasone furoate-vilanterol 100-25 mcg/dose blister with device 1 puff INHALATION DAILY Discontinued carvedilol 12.5 mg tablet 12.5 mg PO BID 90 Days Qty: 180 1RF Rx Instructions: must administer with a meal/food Discharge Orders: Discharge Order (Routine); Ordered 05/03/22 Ordered By: Jacobo Villarreal Diet: Advance to usual diet Activity on Discharge: As tolerated Stand Alone Forms: Patient Portal Discharge page Care Plan Goals: Complete prednisone taper as ordered. Carvedilol has been increased to 25 mg twice daily Health Concerns: Follow-up with PCP as scheduled Plan of Treatment: Resume all pre-hospital medications Assessment: See discharge summary
--- NOTE | 2022-05-03 11:10 | W.MHC.F2F ---
Service Date Service Date: 05/03/22 Encounter Date of encounter: 05/03/22 Encounter: Acute hospitalization Reasons for Services Signs and symptoms assessed: Patient admitted with COPD exacerbation; is O2 dependent needs close monitoring of oxygen Reason for shelter: monitoring of PT/INR, medication management and medication treatment Homebound: Leaving the home is medically contraindicated at this time without the asist of a device and/or another person due th the listed conditions above and below. Reason homebound: leg weakness, bedbound/chairbound and pain with ambulation Certification: Based on the above findings, I certify that this patient is confined to the home and needs intermittent shelter care, physical therapy and/or speech therapy, or continues to need occupational therapy. The patient is under my care, and I have initiated the establishment of the plan of care. The patient will be followed by a physician who will periodically review the plan of care. Time Spent With Patient Time: Total time managing care of this patient today ____ minutes.
--- NOTE | 2022-05-03 11:12 | MHC.CM.PN ---
Patient has been medically cleared for dc to home today with services. A referral has been made to NA, who has been made aware of today's dc. Patient will return home today at 1PM via [facility]. 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
[2022-05-03 11:53] LABS: Glucose, Whole Blood 156 mg/dL (60-115)
[2022-05-03 12:00] VITALS: BP 169/94; PULSE 74; RESP 20; TEMP 36.5; O2SAT 95
[2022-05-03] MEDS: Insulin Lispro 100 UNIT/ML 3 ML VIAL SUBCUT (12:23)
--- NOTE | 2022-05-03 12:46 | MHC.CM.PN ---
[facility] is unable to accept Patient and thus far, neither is any other VNA that was referred to. CM relayed this information to MD who has indicated that Patient may return home without VNA.Patient's WIRE THREADER services and homer O2 should resume as before.
[2022-05-03 14:03] LABS: Alanine Aminotransferase 16 U/L (0-31); Albumin Level 3.6 g/dL (3.5-5.0); Alkaline Phosphatase 127 U/L (39-117); Anion Gap 19 (12-20); Aspartate Amino Transferase 14 U/L (5-31); Bilirubin Total 0.5 mg/dL (0.0-1.0); Blood Urea Nitrogen 40 mg/dL (9-16); Calcium 8.7 mg/dL (8.4-10.2); Carbon Dioxide 23 mmol/L (22-29); Chloride 102 mmol/L (96-108); Creatinine Clr Calc Pharmacy 47.7; Estimated Glomerular Filt Rate 52; Glucose Fasting 149 mg/dL (60-99); Potassium 3.6 mmol/L (3.3-5.1); Sodium 140 mmol/L (135-145); Total Protein 6.6 g/dL (6.5-8.0)
== END 2022-05-03 13:49 | disposition home health service (06) | DRG 140 ==
LOC: HO.ED 22:32 → HO.EDOVER 23:49 → HO.ICU 04-29 01:34 → HO.IMC 04-30 09:58
PROVIDERS: Anesthesiology; Internal Medicine; Admitting Provider Physician Assistant Medical; Emergency Provider Emergency Medicine; PCP Internal Medicine; Visit Provider Hospitalist
DX: J44.1 Chronic obstructive pulmonary disease with (acute) exacerbation (principal); J96.21 Acute and chronic respiratory failure with hypoxia; I50.23 Acute on chronic systolic (congestive) heart failure; I47.20 Ventricular tachycardia, unspecified; I42.8 Other cardiomyopathies; E83.39 Other disorders of phosphorus metabolism; I11.0 Hypertensive heart disease with heart failure; E86.0 Dehydration; Z99.81 Dependence on supplemental oxygen; G47.33 Obstructive sleep apnea (adult) (pediatric); F17.210 Nicotine dependence, cigarettes, uncomplicated; F41.9 Anxiety disorder, unspecified; F32.A Depression, unspecified; I34.0 Nonrheumatic mitral (valve) insufficiency; E11.9 Type 2 diabetes mellitus without complications; J98.11 Atelectasis; Z66 Do not resuscitate; E83.42 Hypomagnesemia; Z71.6 Tobacco abuse counseling; Z20.822 Contact with and (suspected) exposure to COVID-19; Z88.8 Allergy status to other drugs, medicaments and biological substances; Z79.51 Long term (current) use of inhaled steroids; Z79.899 Other long term (current) drug therapy
CPT/HCPCS: 0241U; 36415; 36600; 71045; 73030; 73564; 80048; 80053; 82803; 82947; 83605; 83735; 83880; 84100; 84484; 85025; 85610; 87040; 92526; 92610; 93005; 93306; 93971; 94640; 94660; 96374; 96375; 96376; 99285; J1170; J1940; J2060; J2920; J2930; J3475; Q9957

== ENCOUNTER 2022-06-04 17:11 | Inpatient (IN) | payer OTHER, SELFPAY ==
[2022-06-04] VITALS (11 sets, daily range): BP systolic 146–199; BP diastolic 99–117; PULSE 93–122; RESP 13–25; TEMP 36.8; O2SAT 85–100; BMI 30.9
--- NOTE | ~2022-06-04 | CT_ITS ---
EXAMINATION: CT CHEST WITHOUT CONTRAST CLINICAL INFORMATION: COPD, hypoxia. Bibasilar haziness on chest x-ray. COMPARISON: Chest x-ray 06/04/2022 TECHNIQUE: Multidetector volumetric CT imaging of the chest was done. Axial MIP volume rendering provided. Sagittal and coronal reformatted images were obtained. This CT examination was performed using dose optimization techniques as appropriate, variously including the following: *Automated exposure control *Adjustment of mA and/or kV according to patient size (this includes techniques or standardized protocols for targeted exams where dose is matched to indication/reason for exam; i.e. extremities or head) *Use of iterative reconstruction technique DLP: 434 mGy-cm FINDINGS: The CT chest is limited secondary to breathing artifact throughout the exam. GREEN FEED ATTENDANT: Hyperinflated lungs without acute process. LUNGS: The lungs are hyperinflated with prominent interstitial markings in both lung bases but no evidence of consolidation. There is mild groundglass attenuation in the superior segment right lower lobe and dependent bibasilar atelectasis. No pulmonary nodule or mass seen. MEDIASTINUM: The thyroid lobes are symmetrical and normal. The central trachea and the bronchi are widely patent. The heart size is enlarged. Great vessels are normal caliber. No pericardial effusion seen. No abnormal size mediastinal lymph nodes. CORONARY ARTERY CALCIFICATION: Trace coronary artery calcification seen PLEURA: There is no pleural effusion. No pleural mass or thickening. AXILLA: No lymphadenopathy. UPPER ABDOMEN: Visualized liver, spleen, pancreas and bilateral adrenal glands are unremarkable. OSSEOUS STRUCTURES: No aggressive lytic or sclerotic process seen. There is a T8 and T9 vertebral corduroy appearance suspicious for hemangioma. There is old compression at L1 fracture. CT/CT chest wo IV con IMPRESSION: No acute pulmonary process seen. Dependent bibasilar atelectasis. No consolidation. Moderate cardiomegaly. Old L1 compression fracture. Fleischner guidelines were followed.
--- NOTE | ~2022-06-04 | XR_ITS ---
EXAMINATION: XR CHEST CLINICAL INFORMATION: COPD, hypoxic. COMPARISON: Chest radiograph 04/28/2022. TECHNIQUE: Frontal view of the chest was obtained. FINDINGS: Stable prominence of the cardiomediastinal silhouette. EKG wires overlying the chest. Increased bibasilar reticulation and haziness compared to 04/28/2022. No significant pleural effusion. No pneumothorax. No acute osseous abnormalities. XR/XR chest 1V IMPRESSION: Increased bibasilar reticulation and haziness compared to 04/28/2022 which is nonspecific and could be associated with pulmonary edema, worsening subsegmental atelectasis or less likely aspiration/atypical infectious process. Recommend clinical correlation.
--- NOTE | 2022-06-04 17:30 | ECG_ITS ---
Test Reason : DYSPNEA Blood Pressure : / mmHG Vent. Rate : 096 BPM Atrial Rate : 096 BPM P-R Int : 124 ms QRS Dur : 130 ms QT Int : 420 ms P-R-T Axes : 017 039 007 degrees QTc Int : 530 ms Normal sinus rhythm Right bundle branch block Abnormal ECG When compared with ECG of 29-APR-2022 01:45, Premature ventricular complexes are no longer Present Referred By: Rose Javier Electronically Signed By:Kemar Curry
[2022-06-04] MEDS: Albuterol Sulfate (0.083%) 2.5 MG/3 ML VIAL.NEB 10 MG INHALE ×2 (17:31→22:26)
--- NOTE | 2022-06-04 17:41 | ED.SOB ---
HPI - SOB/Dyspnea General Chief Complaint: Dyspnea Stated Complaint: DIFF BREATHING Time Seen by Provider: 06/04/22 17:15 Source: patient and EMS Limitations: no limitations History of Present Illness HPI Narrative: Patient comes to the emergency room complaining of shortness of breath for the last 2-3 days. Patient states that she usually uses 5 L of oxygen at home. However, over the last couple of days she has been more short of breath than usual. According to EMS, they gave the patient 1 albuterol and 1 DuoNeb updraft, 125 mg of Solu-Cortef. Patient continues feeling short of breath, no chest pain. Patient denies URIs or UTIs or abdominal pain Related Data Home Medications Medication Instructions Recorded Confirmed trazodone 50 mg tablet 50 - 100 mg PO BEDTIME PRN Sleep 03/08/20 05/19/22 fluticasone furoate 100 1 puff inhalation DAILY 04/29/22 05/19/22 mcg-vilanterol 25 mcg/dose inhalation powder Previous Rx's Medication Instructions Recorded quetiapine 50 mg tablet 50 mg PO BID 90 days #180 tabs 12/18/20 sertraline 100 mg tablet 200 mg PO DAILY 90 days #180 tabs 12/18/20 isosorbide mononitrate 30 mg 30 mg PO DAILY 90 days #90 tabs 08/15/21 tablet,extended release 24 hr folic acid 1 mg tablet 1 mg PO DAILY #90 tabs 09/01/21 montelukast 10 mg tablet 10 mg PO BEDTIME #30 tabs 11/01/21 tiotropium bromide 18 mcg capsule 1 cap inhalation DAILY 30 days #30 11/01/21 with inhalation device (Spiriva inhalations with HandiHaler) meclizine 25 mg tablet 25 mg PO TID PRN dizziness 30 days 12/07/21 #90 tabs losartan 50 mg tablet 100 mg PO DAILY #60 tabs 03/14/22 furosemide 40 mg tablet 40 mg PO DAILY #30 tabs 03/16/22 carvedilol 25 mg tablet 25 mg PO BID #60 tabs 05/03/22 prednisone 10 mg tablet See Rx Instructions .Route 05/19/22 .COMPLEX #30 tabs Allergies Allergy/AdvReac Type Severity Reaction Status Date / Time nicotine [Nicotine] Allergy Mild ITCHING Verified 05/19/22 09:50 WITH THE PATCHES topiramate Allergy Mild inadequealte Verified 05/19/22 09:50 response Review of Systems Review of Systems: Constitutional : No Weight loss, No Fever, No Chills, No Night Sweats, No Fatigue, No Malaise ENT/Mouth : No Hearing loss, No Ear Pain, No Nasal Congestion, No Sinus Pain, No Hoarseness, No sore throat, No Rhinorrhea, No Swallowing Difficulty Eyes: No Eye Pain, No Swelling, No Redness, No Foreign Body, No Discharge, No Vision Changes Cardiovascular : No Chest Pain, No SOB, No Dyspnea on Exertion, No Orthopnea, No Edema, No Palpitations Respiratory : Complaining of cough, wheezing, shortness of breath Gastrointestinal : No Nausea, No Vomiting, No Diarrhea, No Constipation, No abdominal Pain, No Hematochezia, No Melena Genitourinary : no irregular bleeding, No Dysuria, No Urinary Frequency, No Hematuria, No Urinary Incontinence, No Urgency, No Flank Pain, No Urinary Flow Changes, No Hesitancy Musculoskeletal : No joint pain, No Myalgias, No Joint Swelling Skin : No Skin Lesions, No rash Neuro : No Weakness, No Numbness, No Paresthesias, No Loss of Consciousness, No Dizziness, No Headache Psych : No Anxiety/Panic, No Depression, No SI/HI/AH/VH, No Social Issues, Heme/Lymph: No Bruising, No Bleeding,No Lymphadenopathy Endocrine : No Polyuria, No Polydipsia, No Temperature Intolerance [facility] Past Medical History Medical History Anxiety Atelectasis, right Chronic respiratory failure Depression Diabetes Essential hypertension HFrEF (heart failure with reduced ejection fraction) HLD (hyperlipidemia) HTN (hypertension) Hypertensive emergency Non-rheumatic mitral regurgitation Nonischemic cardiomyopathy KELLIE (obstructive sleep apnea) Osteoporosis Pulmonary hypertension Respiratory failure with hypoxia and hypercapnia Severe chronic obstructive pulmonary disease Supraventricular tachycardia Tobacco abuse Surgical History Bilateral ankle fractures History of total abdominal hysterectomy Family History Family History Father No problems noted. 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) Unable to assess alcohol history related to: Unable to respond Alcohol intake: never Patient Tobacco Use Status: Current everyday Tobacco user Tobacco use type: Cigarette Cigarettes Per Day: 4 Years Smoked: 50 +/- Smoked in Last 30 Days: Yes e-Cigarette/Vaping Use: Never Used Second Hand Smoke Exposure: No Use of substances other than those prescribed or required for medical reasons: No Advance Directives: Yes Advance Directives on File: Yes Advance Directives Date on File: 04/30/20 Patient : No service: No Current occupational status: unemployed, retired and disabled Cognitive needs: Yes Hearing needs: No Vision needs: No Physical Exam Vital Signs: Vital Signs: Last Vital Signs Temp 98.2 F 06/04/22 17:17 Pulse 104 H 06/04/22 23:18 Resp 13 06/04/22 23:18 BP 166/108 H 06/04/22 23:18 Pulse Ox 90 L 06/04/22 23:18 O2 Del Method 06/04/22 23:18 O2 Flow Rate 5 06/04/22 23:09 Oxygen Flow Rate 5 06/04/22 17:17 BMI result Body Mass Index 30.9 Const: Other: Appearance: Alert. Oriented X3. No acute distress. Eyes: Pupils equal, round and reactive to light. ENT: Pharynx normal. Neck: Normal inspection. Neck supple. No lymph nodes noted. No crepitus CVS: Normal heart rate and rhythm. Pulses normal. Normal S1 and S2 Respiratory: Poor air movement bilaterally, minimal wheezing Abdomen: Soft and nontender. No rigidity. No distention. Skin: Skin warm and dry. Normal skin color. Normal skin turgor. Extremities: No lower extremity edema. No Lacerations. No Rash Neuro: Oriented X 3. No motor deficit. No sensory deficit. Moving all extremities. No slurred speech. CN 2 through 12 grossly intact Psych: calm, cooperative, normal affect Course Course Course Narrative: -patient getting hour long albuterol treatment, Solu-Medrol 125, magnesium -of patient's labs pending. Patient's oxygen saturation drops to 88% even on her 5 L -chest x-ray nonspecific, shows bibasilar haziness, unclear if this is infectious process versus pulmonary edema versus atelectasis. CT scan pending Medications Administered Discontinued Medications Generic Name Dose Route Start Last Admin Trade Name Norma PRN Reason Stop Dose Admin Albuterol Sulfate 10 mg 06/04/22 17:28 06/04/22 17:31 Albuterol Sulfate (0.083%) 2.5 Mg/3 Ml Vial.Neb INHALE 06/04/22 17:29 10 mg ONCE ONE Administration Albuterol Sulfate 10 mg 06/04/22 22:22 06/04/22 22:26 Albuterol Sulfate (0.083%) 2.5 Mg/3 Ml Vial.Neb INHALE 06/04/22 22:23 10 mg ONCE ONE Administration Albuterol/Ipratropium 9 ml 06/04/22 22:22 06/04/22 22:26 Albuterol/Iprat 2.5/0.5mg 3 Ml Ampul.Neb INHALE 06/04/22 22:23 9 ml ONCE ONE Administration Furosemide 60 mg 06/04/22 22:48 06/04/22 23:09 Furosemide 100 Mg/10 Ml Vial IVPUSH 06/04/22 22:49 60 mg ONCE ONE Administration Protocol Magnesium Sulfate 2 gm in 50 mls @ 25 mls/hr 06/04/22 17:28 06/04/22 18:14 Magnesium Sulfate/H2o IV 06/04/22 19:27 25 mls/hr ONCE ONE Administration Methylprednisolone Sodium Succinate 125 mg 06/04/22 17:28 06/04/22 18:14 Methylprednisolone Sod Succ 125 Mg/2 Ml Vial IVPUSH 06/04/22 17:29 125 mg ONCE ONE Administration Medical Decision Making Medical Decision Making MDM Narrative: -CT scans shows no acute pulmonary process, no consolidation. Patient likely has an asthma exacerbation. -patient needed several treatments with DuoNebs and albuterol treatment hour longs. Patient now saturating in the low 90s with 5 L which is her baseline. -patient also received Lasix, patient absolutely refused CPAP. -overall, with DuoNebs and albuterol, patient improved significantly. However, she still sounds very tight and patient can feel it, no chest pain. -BP elevated above baseline, 127. Patient's blood pressure bumped up to 199/106. Patient already received Lasix. Patient will be getting now p.o. labetalol and nitroglycerin patch. -I discussed the patient with Dr. Ruggiero, pt being admitted Differential Diagnosis Differential Diagnoses: The differential diagnosis associated with the presentation includes (Pneumonia, COPD, CHF, asthma) Admission/Observation Consideration of admission/observation: Escalation of care including admission/observation considered Consult Healthcare Provider Management of the patient was discussed with: Hospitalist Lab Data MDM Lab Attestation statement: I reviewed the patient's lab results. 06/04/22 19:48 06/04/22 19:48 Labs: Lab Results 06/04/22 06/04/22 06/04/22 Range/Units 19:47 19:47 19:48 WBC 9.7 (4.8-10.8) X10*3/uL RBC 4.13 L (4.20-5.50) X10*6/uL Hgb 10.6 L (12.0-16.0) g/dl Hct 34.5 L (37.0-47.0) % MCV 83.5 (80.0-98.0) fL MCH 25.7 L (27.0-33.0) pg MCHC 30.7 L (31.0-35.0) g/dl RDW 16.3 H (11.0-16.0) % Plt Count 172 (160-400) X10*3/uL MPV 10.4 (9.4-12.3) fL Immature Gran % (Auto) 0.5 H (0.0-0.4) % Neut % (Auto) 91.6 H (45-73) % Lymph % (Auto) 5.7 L (20-40) % [place] % (Auto) 1.9 L (2-11) % Eos % (Auto) 0.2 (0-4) % Baso % (Auto) 0.1 (0-2) % Lymph # (Auto) 0.6 L (1.2-4.9) X10*3/uL [place] # (Auto) 0.2 (0.1-1.2) X10*3/uL Eos # (Auto) 0.0 (0.0-0.4) X10*3/uL Baso # (Auto) 0.0 (0.0-0.2) X10*3/uL Abs Immat Gran (auto) 0.05 H (0.00-0.03) X10*3/uL Absolute Neuts (auto) 8.9 H (2.0-8.3) x10*3/uL Absolute Nucleated RBC 0.000 (0.0-0.012) X10*3/uL Nucleated RBC % (auto) 0.0 (0.0-0.2) /100WBC PT (10.0-13.1) SEC INR (0.9-1.1) VBG pH (7.32-7.43) VBG pCO2 mmHg VBG pO2 mmHg VBG HCO3 (22-26) mmol/L VBG O2 Saturation % VBG Base Excess mmol/L Sodium (135-145) mmol/L Potassium (3.3-5.1) mmol/L Chloride (96-108) mmol/L Carbon Dioxide (22-29) mmol/L Anion Gap (12-20) BUN (9-16) mg/dL Creatinine (0.5-1.4) mg/dL Estim Creat Clear Calc Estimated GFR Random Glucose (60-115) mg/dL Lactic Acid (0.5-2.0) mmol/L Calcium (8.4-10.2) mg/dL Total Bilirubin (0.0-1.0) mg/dL Direct Bilirubin (0.0-0.5) mg/dL AST (5-31) U/L ALT (0-31) U/L Alkaline Phosphatase (39-117) U/L Troponin I High Sens (<3.5-17.0) ng/L B-Natriuretic Peptide 827 H (<100) pg/mL Total Protein (6.5-8.0) g/dL Albumin (3.5-5.0) g/dL COVID-19 (ANEL) (Negative) COVID-19 Clin Com Influenza Type A (LEGIN) Negative (Negative) Influenza Type B (ELGIN) Negative (Negative) Influenza A & B Note See Note 06/04/22 06/04/22 06/04/22 Range/Units 19:48 19:48 19:48 WBC (4.8-10.8) X10*3/uL RBC (4.20-5.50) X10*6/uL Hgb (12.0-16.0) g/dl Hct (37.0-47.0) % MCV (80.0-98.0) fL MCH (27.0-33.0) pg MCHC (31.0-35.0) g/dl RDW (11.0-16.0) % Plt Count (160-400) X10*3/uL MPV (9.4-12.3) fL Immature Gran % (Auto) (0.0-0.4) % Neut % (Auto) (45-73) % Lymph % (Auto) (20-40) % [place] % (Auto) (2-11) % Eos % (Auto) (0-4) % Baso % (Auto) (0-2) % Lymph # (Auto) (1.2-4.9) X10*3/uL [place] # (Auto) (0.1-1.2) X10*3/uL Eos # (Auto) (0.0-0.4) X10*3/uL Baso # (Auto) (0.0-0.2) X10*3/uL Abs Immat Gran (auto) (0.00-0.03) X10*3/uL Absolute Neuts (auto) (2.0-8.3) x10*3/uL Absolute Nucleated RBC (0.0-0.012) X10*3/uL Nucleated RBC % (auto) (0.0-0.2) /100WBC PT (10.0-13.1) SEC INR (0.9-1.1) VBG pH (7.32-7.43) VBG pCO2 mmHg VBG pO2 mmHg VBG HCO3 (22-26) mmol/L VBG O2 Saturation % VBG Base Excess mmol/L Sodium 143 (135-145) mmol/L Potassium 3.0 L (3.3-5.1) mmol/L Chloride 106 (96-108) mmol/L Carbon Dioxide 28 (22-29) mmol/L Anion Gap 12 (12-20) BUN 8 L (9-16) mg/dL Creatinine 0.73 (0.5-1.4) mg/dL Estim Creat Clear Calc 72.4 Estimated GFR > 60 Random Glucose 202 H (60-115) mg/dL Lactic Acid 0.7 (0.5-2.0) mmol/L Calcium 9.2 (8.4-10.2) mg/dL Total Bilirubin 0.5 (0.0-1.0) mg/dL Direct Bilirubin < 0.2 (0.0-0.5) mg/dL AST 19 (5-31) U/L ALT 15 (0-31) U/L Alkaline Phosphatase 143 H (39-117) U/L Troponin I High Sens 29.8 H (<3.5-17.0) ng/L B-Natriuretic Peptide (<100) pg/mL Total Protein 6.6 (6.5-8.0) g/dL Albumin 3.9 (3.5-5.0) g/dL COVID-19 (ANEL) (Negative) COVID-19 Clin Com Influenza Type A (ELGIN) (Negative) Influenza Type B (ELGIN) (Negative) Influenza A & B Note 06/04/22 06/04/22 06/04/22 Range/Units 19:48 19:48 20:01 WBC (4.8-10.8) X10*3/uL RBC (4.20-5.50) X10*6/uL Hgb (12.0-16.0) g/dl Hct (37.0-47.0) % MCV (80.0-98.0) fL MCH (27.0-33.0) pg MCHC (31.0-35.0) g/dl RDW (11.0-16.0) % Plt Count (160-400) X10*3/uL MPV (9.4-12.3) fL Immature Gran % (Auto) (0.0-0.4) % Neut % (Auto) (45-73) % Lymph % (Auto) (20-40) % [place] % (Auto) (2-11) % Eos % (Auto) (0-4) % Baso % (Auto) (0-2) % Lymph # (Auto) (1.2-4.9) X10*3/uL [place] # (Auto) (0.1-1.2) X10*3/uL Eos # (Auto) (0.0-0.4) X10*3/uL Baso # (Auto) (0.0-0.2) X10*3/uL Abs Immat Gran (auto) (0.00-0.03) X10*3/uL Absolute Neuts (auto) (2.0-8.3) x10*3/uL Absolute Nucleated RBC (0.0-0.012) X10*3/uL Nucleated RBC % (auto) (0.0-0.2) /100WBC PT 11.4 (10.0-13.1) SEC INR 1.0 (0.9-1.1) VBG pH 7.58 H (7.32-7.43) VBG pCO2 33 mmHg VBG pO2 112 mmHg VBG HCO3 31 H (22-26) mmol/L VBG O2 Saturation 100.0 % VBG Base Excess 9.3 mmol/L Sodium (135-145) mmol/L Potassium (3.3-5.1) mmol/L Chloride (96-108) mmol/L Carbon Dioxide (22-29) mmol/L Anion Gap (12-20) BUN (9-16) mg/dL Creatinine (0.5-1.4) mg/dL Estim Creat Clear Calc Estimated GFR Random Glucose (60-115) mg/dL Lactic Acid (0.5-2.0) mmol/L Calcium (8.4-10.2) mg/dL Total Bilirubin (0.0-1.0) mg/dL Direct Bilirubin (0.0-0.5) mg/dL AST (5-31) U/L ALT (0-31) U/L Alkaline Phosphatase (39-117) U/L Troponin I High Sens (<3.5-17.0) ng/L B-Natriuretic Peptide (<100) pg/mL Total Protein (6.5-8.0) g/dL Albumin (3.5-5.0) g/dL COVID-19 (ANEL) Negative (Negative) COVID-19 Clin Com See Note Influenza Type A (ELGIN) (Negative) Influenza Type B (ELGIN) (Negative) Influenza A & B Note Independent Interpretation I performed an independent interpretation of an: CT Scan (CT scan of the chest my interpretation: No infiltrate, but vascular congestion present) Radiology Impression Discussion of test interpretation with radiology: I have reviewed the radiologist's reading. Radiologist Impression: INDINGS: The CT chest is limited secondary to breathing artifact throughout the exam. 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 LUNGS: The lungs are hyperinflated with prominent interstitial markings in both lung bases but no evidence of consolidation. There is mild groundglass attenuation in the superior segment right lower lobe and dependent bibasilar atelectasis. No pulmonary nodule or mass seen.? MEDIASTINUM: The thyroid lobes are symmetrical and normal. The central trachea and the bronchi are widely patent. The heart size is enlarged. Great vessels are normal caliber. No pericardial effusion seen. No abnormal size mediastinal lymph nodes.? CORONARY ARTERY CALCIFICATION: Trace coronary artery calcification seen PLEURA: There is no pleural effusion. No pleural mass or thickening.? AXILLA: No lymphadenopathy.? UPPER ABDOMEN: Visualized liver, spleen, pancreas and bilateral adrenal glands are unremarkable.? OSSEOUS STRUCTURES: No aggressive lytic or sclerotic process seen. There is a T8 and T9 vertebral corduroy appearance suspicious for hemangioma. There is old compression at L1 fracture. CT/CT chest wo IV con IMPRESSION: No acute pulmonary process seen. Dependent bibasilar atelectasis. No consolidation. Moderate cardiomegaly. ? Old L1 compression fracture.? ? Fleischner guidelines were followed. Critical Care Time Critical Care Time Critical Care Time: Yes Total Critical Care Time: 75 Attestation: I have personally provided critical care time. Time includes review of lab data, radiology results, discussion with consultants, and monitoring for potential decompensation. Intervention performed as documented. Discharge Plan Discharge Clinical Impression: Asthma exacerbation, CHF (congestive heart failure) Patient Disposition: Admitted As Inpatient Prescriptions: No Action sertraline 100 mg tablet 200 mg PO DAILY 90 Days Qty: 180 1RF quetiapine 50 mg tablet 50 mg PO BID 90 Days Qty: 180 1RF isosorbide mononitrate 30 mg tablet extended release 24 hr 30 mg PO DAILY 90 Days Qty: 90 3RF Protocol: Hold for SBP< HOLD for SBP < : 90 montelukast 10 mg tablet 10 mg PO BEDTIME Qty: 30 11RF Spiriva with HandiHaler 18 mcg capsule, w/inhalation device 1 cap inhalation DAILY 30 Days Qty: 30 5RF meclizine 25 mg tablet 25 mg PO TID PRN (Reason: dizziness) 30 Days Qty: 90 0RF losartan 50 mg tablet 100 mg PO DAILY Qty: 60 0RF Protocol: Hold for SBP< HOLD for SBP < : 90 furosemide 40 mg tablet 40 mg PO DAILY Qty: 30 3RF trazodone 50 mg tablet 50 - 100 mg PO BEDTIME PRN (Reason: Sleep) folic acid 1 mg Tablet 1 mg PO DAILY Qty: 90 4RF fluticasone furoate-vilanterol 100-25 mcg/dose blister with device 1 puff INHALATION DAILY carvedilol 25 mg Tablet 25 mg PO BID Qty: 60 0RF Protocol: Hold for SBP/HR < HOLD for SBP < : 90 HOLD for HR < : 60 prednisone 10 mg tablet See Rx Instructions .Route .COMPLEX Qty: 30 0RF Rx Instructions: 10 mg orally; 5 tabs p.o. daily x2 days; 4 tabs p.o. daily x2 days; 3 tabs daily x2 days; 2 tabs daily x2 days; 1 tab daily x2 days
[2022-06-04] MEDS: Magnesium Sulfate/H2O 2 GM/50 ML PIGGYBACK IV (18:14)
[2022-06-04] MEDS: methylPREDNISolone Sod Succ 125 MG/2 ML VIAL IVPUSH (18:14)
[2022-06-04 20:02] LABS: Basophils Percent Auto 0.1 % (0-2); Eosinophils Percent Auto 0.2 % (0-4); Hematocrit 34.5 % (37.0-47.0); Hemoglobin 10.6 g/dl (12.0-16.0); Imm Gran Abs Auto 0.05 X10*3/uL (0.00-0.03); Imm Gran Pct Auto 0.5 % (0.0-0.4); Lymphocytes Absolute Auto 0.6 X10*3/uL (1.2-4.9); Lymphocytes Percent Auto 5.7 % (20-40); MANUAL DIFF FLAG NO; Mean Corpuscular HGB Conc 30.7 g/dl (31.0-35.0); Mean Corpuscular Hemoglobin 25.7 pg (27.0-33.0); Mean Corpuscular Volume 83.5 fL (80.0-98.0); Mean Platelet Volume 10.4 fL (9.4-12.3); Monocytes Absolute Auto 0.2 X10*3/uL (0.1-1.2); Monocytes Percent Auto 1.9 % (2-11); Neutrophils Absolute Auto 8.9 x10*3/uL (2.0-8.3); Neutrophils Percent Auto 91.6 % (45-73); Platelet Count 172 X10*3/uL (160-400); Red Blood Count 4.13 X10*6/uL (4.20-5.50); Red Cell Distribution Width 16.3 % (11.0-16.0); SCAN SMEAR FLAG 1; White Blood Count 9.7 X10*3/uL (4.8-10.8)
[2022-06-04 20:06] LABS: VBG Base Excess 9.3 mmol/L; VBG HCO3 31 mmol/L (22-26); VBG pCO2 33 mmHg; VBG pH 7.58 (7.32-7.43); VBG pO2 112 mmHg
[2022-06-04 20:06] LABS: Venous Blood Gas Refer to POC result
[2022-06-04 20:20] LABS: IDNOW Serial# BCCEAD1C; Influenza A Negative (Negative); Influenza B2 Negative (Negative)
[2022-06-04 20:20] LABS: COVID-19 Test Negative (Negative); IDNOW Serial# 16C4AD1C
[2022-06-04 20:21] LABS: Lactic Acid 0.7 mmol/L (0.5-2.0)
[2022-06-04 20:28] LABS: Alanine Aminotransferase 15 U/L (0-31); Albumin Level 3.9 g/dL (3.5-5.0); Alkaline Phosphatase 143 U/L (39-117); Anion Gap 12 (12-20); Aspartate Amino Transferase 19 U/L (5-31); Bilirubin Direct < 0.2 mg/dL (0.0-0.5); Bilirubin Total 0.5 mg/dL (0.0-1.0); Blood Urea Nitrogen 8 mg/dL (9-16); Calcium 9.2 mg/dL (8.4-10.2); Carbon Dioxide 28 mmol/L (22-29); Chloride 106 mmol/L (96-108); Creatinine Clr Calc Pharmacy 72.4; Estimated Glomerular Filt Rate > 60; Glucose Random 202 mg/dL (60-115); Sodium 143 mmol/L (135-145); Total Protein 6.6 g/dL (6.5-8.0)
[2022-06-04 20:30] LABS: B Type Natriuretic Peptide 827 pg/mL (<100)
[2022-06-04 20:34] LABS: Troponin-I High Sensitivity 29.8 ng/L (<3.5-17.0)
[2022-06-04 20:53] LABS: Prothrombin Time 11.4 SEC (10.0-13.1)
--- NOTE | 2022-06-04 22:09 | PC.NURSE ---
blood pressure called for pt. RN noted pt to not be wearing aerosol mask.Pt reports was having difficulty time breathing and noticed tube popped off wall. Rn placed tubing on oxygen wall connector. oxygen saturation noted to be 77% room air RR 25. Audible wheezing noted, breathing labored. florentin Javier at pt bedside Respiratory therapist called stat to pt room. Pt was given respiratory treatment via aerosol mask. Noted improvement in breathing oxygen saturation 91% via aerosol mask at 6 L RR 16.
[2022-06-04] MEDS: Albuterol/Iprat 2.5/0.5MG 3 ML AMPUL.NEB 9 ML INHALE (22:26)
--- NOTE | 2022-06-04 22:59 | PC.NURSE ---
pt finished breathing treatment reported tubing disconnected. Pt placed on non rebreather mask oxygen saturation was 73% room air. RR 25. RT apt pt side. Pt changed to oxymask on 5 liters RR 22, oxygen saturation 93%.
[2022-06-04] MEDS: Furosemide 100 MG/10 ML VIAL 60 MG IVPUSH (23:09)
--- NOTE | 2022-06-04 23:12 | PC.RT ---
Patient recognized BIPAP machine, as she has tried this therapy in the past. She spoke with RN who translated for this RT that patient refuses treatment despite being educated on benefits.
--- NOTE | 2022-06-04 23:17 | PC.NURSE ---
Pt medicated per JUL. Pt DASHA x4.
--- NOTE | 2022-06-04 23:48 | PC.NURSE ---
Pt oxygen saturation noted to be 85% on 5 L via oxy mask. oxy mask titrated up to 9 liters. intervention showed much inprovment. 91% on via oxy mask.
[2022-06-05] VITALS (12 sets, daily range): BP systolic 148–184; BP diastolic 95–122; PULSE 79–95; RESP 15–24; TEMP 36.9–37.2; O2SAT 91–99; BMI 30.9
--- NOTE | 2022-06-05 00:06 | P.HPHOSP_ITS ---
History of Present Illness Date of Service: 06/05/22 Chief Complaint: Dyspnea This is a 61-year-old female with pertinent history of dpo-vudlpdj-fqyznbxln diabetes mellitus, essential hypertension, congestive heart failure with reduced ejection fraction, mixed hyperlipidemia, KELLIE noncompliant with CPAP, pulmonary hypertension, mood disorder, chronic hypoxemic respiratory failure due to COPD with baseline 4-5 L oxygen who presents to the emergency department for evaluation of dyspnea. Patient states she is getting progressively short of breath, worse with exertion over the last 2-3 days. Also has had associated wheezing. Denies PND and orthopnea. No leg swelling. Patient without fever, chills, palpitations, chest discomfort, abdominal pain, changes in urinary or bowel habits. In the emergency department, patient was found to be hypoxemic on her baseline supplemental oxygen and was requiring an 9-10 L using OxyMask. Review of Systems Constitutional: Constitutional: Reports no additional constitutional complaints Cardiovascular: Cardiovascular: Reports no additional cardiovascular complaints and Reports dyspnea on exertion Respiratory: Respiratory: Reports dyspnea on exertion and Reports wheezing Genitourinary: Genitourinary: Reports no additional female genitourinary complaints Allergic/Immunologic: Allergic/Immunologic: Reports wheezing [facility] Medical History Anxiety Atelectasis, right Chronic respiratory failure Depression Diabetes Essential hypertension HFrEF (heart failure with reduced ejection fraction) HLD (hyperlipidemia) HTN (hypertension) Hypertensive emergency Non-rheumatic mitral regurgitation Nonischemic cardiomyopathy KELLIE (obstructive sleep apnea) Osteoporosis Pulmonary hypertension Respiratory failure with hypoxia and hypercapnia Severe chronic obstructive pulmonary disease Supraventricular tachycardia Tobacco abuse Family History Father No problems noted. 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 home services: Yes ([employer]) Unable to assess alcohol history related to: Unable to respond Alcohol intake: never Patient Tobacco Use Status: Current everyday Tobacco user Tobacco use type: Cigarette Cigarettes Per Day: 4 Years Smoked: 50 +/- Smoked in Last 30 Days: Yes e-Cigarette/Vaping Use: Never Used Second Hand Smoke Exposure: No Use of substances other than those prescribed or required for medical reasons: No Advance Directives: Yes Advance Directives on File: Yes Advance Directives Date on File: 04/30/20 Patient : No service: No Current occupational status: unemployed, retired and disabled Cognitive needs: Yes Hearing needs: No Vision needs: No Meds Allergies Allergy/AdvReac Type Severity Reaction Status Date / Time nicotine [Nicotine] Allergy Mild ITCHING Verified 05/19/22 09:50 WITH THE PATCHES topiramate Allergy Mild inadequealte Verified 05/19/22 09:50 response Active Medications: Current Medications Acetaminophen (Acetaminophen 325 Mg Tablet) 650 mg PO Q6H PRN PRN Reason: Pain, Mild (Pain Scale 1-3) Enoxaparin Sodium (Enoxaparin Sodium 40 Mg/0.4 Ml Syringe) 40 mg SUBCUT Q24H [facility] Melatonin (Melatonin 3 Mg Tablet) 6 mg PO BEDTIME PRN PRN Reason: Insomnia Ondansetron HCl (Ondansetron Hcl 4 Mg/2 Ml Vial) 4 mg IVPUSH Q8H PRN PRN Reason: Nausea and Vomiting Pharmacy Consult (Consult Rx Perform Med Rec) 1 each MISCELLANE ONCE PRN PRN Reason: Consult order Sodium Chloride (0.9 % Sodium Chloride Flush 3 Ml Syringe) 3 ml IVFLUSH QSHIFT [facility] Home Medications Medication Instructions Recorded Confirmed Last Taken Type trazodone 50 mg tablet 50 - 100 mg PO BEDTIME PRN Sleep 03/08/20 05/19/22 03/29/21 History fluticasone furoate 100 1 puff inhalation DAILY 04/29/22 05/19/22 Unknown History mcg-vilanterol 25 mcg/dose inhalation powder Physical Exam Vital Signs and Narrative: Vital Signs: Last Vital Signs Temp 98.2 F 06/04/22 17:17 Pulse 95 06/04/22 23:51 Resp 14 06/04/22 23:51 BP 199/106 H 06/04/22 23:44 Pulse Ox 91 L 06/04/22 23:51 O2 Del Method 06/04/22 23:51 O2 Flow Rate 9 06/04/22 23:51 Oxygen Flow Rate 5 06/04/22 17:17 BMI result Body Mass Index 30.9 Middle-aged female lying in bed in mild distress on 9L OxyMask Neck supple, no JVD Regular rate and rhythm, S1-S2 heard Bilateral wheezing appreciated Abdomen soft nontender, no guarding, no rigidity Patient is awake, alert and oriented to self, place, time and person ; no focal motor deficit Psych: Normal mood No pedal edema Results Labs 06/04/22 19:48 06/04/22 19:48 Labs: Laboratory Results - last 24 hr 06/04/22 06/04/22 06/04/22 19:47 19:47 19:48 MCV 83.5 MCH 25.7 L MCHC 30.7 L RDW 16.3 H Plt Count 172 MPV 10.4 Immature Gran % (Auto) 0.5 H Neut % (Auto) 91.6 H Lymph % (Auto) 5.7 L [place] % (Auto) 1.9 L Eos % (Auto) 0.2 Baso % (Auto) 0.1 Lymph # (Auto) 0.6 L [place] # (Auto) 0.2 Eos # (Auto) 0.0 Baso # (Auto) 0.0 Abs Immat Gran (auto) 0.05 H Absolute Neuts (auto) 8.9 H Absolute Nucleated RBC 0.000 Nucleated RBC % (auto) 0.0 PT INR VBG pH VBG pCO2 VBG pO2 VBG HCO3 VBG O2 Saturation VBG Base Excess Anion Gap Estim Creat Clear Calc Estimated GFR Random Glucose Lactic Acid Calcium Total Bilirubin Direct Bilirubin AST ALT Alkaline Phosphatase Troponin I High Sens B-Natriuretic Peptide 827 H Total Protein Albumin COVID-19 (ANEL) COVID-19 Clin Com Influenza Type A (ELGIN) Negative Influenza Type B (ELGIN) Negative Influenza A & B Note See Note 06/04/22 06/04/22 06/04/22 19:48 19:48 19:48 MCV MCH MCHC RDW Plt Count MPV Immature Gran % (Auto) Neut % (Auto) Lymph % (Auto) [place] % (Auto) Eos % (Auto) Baso % (Auto) Lymph # (Auto) [place] # (Auto) Eos # (Auto) Baso # (Auto) Abs Immat Gran (auto) Absolute Neuts (auto) Absolute Nucleated RBC Nucleated RBC % (auto) PT INR VBG pH VBG pCO2 VBG pO2 VBG HCO3 VBG O2 Saturation VBG Base Excess Anion Gap 12 Estim Creat Clear Calc 72.4 Estimated GFR > 60 Random Glucose 202 H Lactic Acid 0.7 Calcium 9.2 Total Bilirubin 0.5 Direct Bilirubin < 0.2 AST 19 ALT 15 Alkaline Phosphatase 143 H Troponin I High Sens 29.8 H B-Natriuretic Peptide Total Protein 6.6 Albumin 3.9 COVID-19 (ANEL) COVID-19 Clin Com Influenza Type A (ELGIN) Influenza Type B (ELGIN) Influenza A & B Note 06/04/22 06/04/22 06/04/22 19:48 19:48 20:01 MCV MCH MCHC RDW Plt Count MPV Immature Gran % (Auto) Neut % (Auto) Lymph % (Auto) [place] % (Auto) Eos % (Auto) Baso % (Auto) Lymph # (Auto) [place] # (Auto) Eos # (Auto) Baso # (Auto) Abs Immat Gran (auto) Absolute Neuts (auto) Absolute Nucleated RBC Nucleated RBC % (auto) PT 11.4 INR 1.0 VBG pH 7.58 H VBG pCO2 33 VBG pO2 112 VBG HCO3 31 H VBG O2 Saturation 100.0 VBG Base Excess 9.3 Anion Gap Estim Creat Clear Calc Estimated GFR Random Glucose Lactic Acid Calcium Total Bilirubin Direct Bilirubin AST ALT Alkaline Phosphatase Troponin I High Sens B-Natriuretic Peptide Total Protein Albumin COVID-19 (ANEL) Negative COVID-19 Clin Com See Note Influenza Type A (ELGIN) Influenza Type B (ELGIN) Influenza A & B Note Imaging Radiologist's Impressions: Impressions Chest X-Ray 06/04/22 17:39 IMPRESSION: Increased bibasilar reticulation and haziness compared to 04/28/2022 which is nonspecific and could be associated with pulmonary edema, worsening subsegmental atelectasis or less likely aspiration/atypical infectious process. Recommend clinical correlation. Chest CT 06/04/22 20:55 IMPRESSION: No acute pulmonary process seen. Dependent bibasilar atelectasis. No consolidation. Moderate cardiomegaly. Old L1 compression fracture. Fleischner guidelines were followed. Assessment and Plan (1) Acute and chronic respiratory failure with hypoxia: Status: Acute Plan This is a 61-year-old female with pertinent history of cqh-ozzsrgu-rbcpzwruq diabetes mellitus, essential hypertension, congestive heart failure with reduced ejection fraction, mixed hyperlipidemia, KELLIE noncompliant with CPAP, pulmonary hypertension, mood disorder, chronic hypoxemic respiratory failure due to COPD with baseline 4-5 L oxygen who presents to the emergency department for ev aluation of dyspnea. #. Acute on chronic hypoxemic respiratory failure due to: #. Acute exacerbation of COPD -will admit patient and continue systemic steroids. Scheduled and p.r.n. DuoNebs. IV azithromycin for pleiotropic effect. Continue home inhaler. -monitor oxygen saturation and wean as tolerated. Maintain oxygen saturation greater than 88% #. Spd-gskjdvb-gcnxvsbxr diabetes mellitus with hyperglycemia: Initiating Accu-Cheks with sliding scale insulin #. Congestive heart failure with reduced ejection fraction: Patient euvolemic on admission. Continue Lasix, ARB, beta-coco #. Hypertensive urgency: Nitro patch ordered in the ER. Continue home p.o. medications #. Mood disorder: Continue home mood stabilizers #. Chronic normocytic anemia: Hemoglobin above transfusion threshold #. Hypokalemia: Repleted #. Elevated troponin likely due to increased demand. Repeat. No chest discomfort #. Obesity: Counseled regarding weight loss Med rec pending DVT prophylaxis: Lovenox 40 mg daily Full code Cardiac diet Admit as inpatient and will require two night minimum hospital stay for supplemental oxygen Time Spent With Patient Time: Total time managing care of this patient today ____ minutes. Quality Stroke Does the patient have a stroke diagnosis?: No VTE Prior VTE?: No VTE Risk Level:: Medical - moderate - high VTE Device Contraindication: Treatment Not Indicated VTE Drug Contraindication: N/A - Med Ordered
[2022-06-05] MEDS: Labetalol HCL 100 MG TABLET PO (01:02)
[2022-06-05] MEDS: methylPREDNISolone Sod Succ 40 MG/ML VIAL IVPUSH ×2 (01:03→12:21)
[2022-06-05] MEDS: Nitroglycerin 2 % Oint 1 GM Packet 0.5 INCH TRANSDERMA (01:03)
[2022-06-05] MEDS: Azithromycin 500 MG in 0.9 % Sodium Chloride 250 ML 125 MG IV (01:04)
[2022-06-05] MEDS: Enoxaparin Sodium 40 MG/0.4 ML SYRINGE SUBCUT (01:04)
[2022-06-05] MEDS: 0.9 % Sodium Chloride Flush 3 ML SYRINGE IVFLUSH ×3 (01:05→16:51)
[2022-06-05] MEDS: Potassium Chloride Packet 20 MEQ PACKET 40 MEQ PO (01:13)
--- NOTE | 2022-06-05 02:16 | PC.NURSE ---
See prior VS. Pt oxymask titrated to 6 L pt oxygen saturation ranging 93-96%.
--- NOTE | 2022-06-05 02:20 | PC.NURSE ---
Pt reports having mild sob, bilateral upper lobes noted to have wheezing. Will call RT.
--- NOTE | 2022-06-05 02:23 | PC.NURSE ---
Respiratory therapist reports will come to assess patient.
--- NOTE | 2022-06-05 05:35 | PC.NURSE ---
Message sent to Dr. Ruggiero via happin! regarding elevated blood pressure 184/106 pulse 77.
--- NOTE | 2022-06-05 06:21 | PC.NURSE ---
See prior note. MD aware. No updated orders.
--- NOTE | 2022-06-05 06:32 | PC.NURSE ---
Hospitalist ordered Labetalol 10 mg IV push.
[2022-06-05] MEDS: Labetalol HCL 100 MG/20 ML VIAL 10 MG IVPUSH (07:43)
[2022-06-05 07:48] LABS: Glucose, Whole Blood 207 mg/dL (60-115)
[2022-06-05] MEDS: Insulin Lispro 100 UNIT/ML 3 ML VIAL SUBCUT ×4 (07:48→22:04)
--- NOTE | 2022-06-05 08:25 | PC.NURSE ---
Attempt to call report battery charger conveyor line to call back patient resting comfortably tolerating PO foods and fluids no distress noted remains on )2 at 7 L with good effect will CTM prepare for transfer to floor
[2022-06-05 09:10] LABS: MANUAL DIFF FLAG NO
[2022-06-05 09:20] LABS: Basophils Percent Auto 0.1 % (0-2); Hematocrit 32.8 % (37.0-47.0); Hemoglobin 10.2 g/dl (12.0-16.0); Imm Gran Abs Auto 0.04 X10*3/uL (0.00-0.03); Imm Gran Pct Auto 0.5 % (0.0-0.4); Lymphocytes Absolute Auto 0.6 X10*3/uL (1.2-4.9); Lymphocytes Percent Auto 7.5 % (20-40); Mean Corpuscular HGB Conc 31.1 g/dl (31.0-35.0); Mean Corpuscular Hemoglobin 25.8 pg (27.0-33.0); Mean Platelet Volume 10.2 fL (9.4-12.3); Monocytes Absolute Auto 0.3 X10*3/uL (0.1-1.2); Monocytes Percent Auto 3.5 % (2-11); Neutrophils Absolute Auto 7.3 x10*3/uL (2.0-8.3); Neutrophils Percent Auto 88.4 % (45-73); Platelet Count 172 X10*3/uL (160-400); Red Blood Count 3.95 X10*6/uL (4.20-5.50); Red Cell Distribution Width 15.9 % (11.0-16.0); White Blood Count 8.2 X10*3/uL (4.8-10.8)
[2022-06-05 09:21] LABS: Estimated Average Glucose 140 mg/dL; Hemoglobin A1c % 6.5 %
--- NOTE | 2022-06-05 09:21 | PC.NURSE ---
LS diminished throughout remains on O2 with good effect will CTM. Clin Coordinator Radha made aware [facility] has not taken report yet will CTM
[2022-06-05 09:25] LABS: Anion Gap 12 (12-20); Blood Urea Nitrogen 11 mg/dL (9-16); Calcium 8.7 mg/dL (8.4-10.2); Carbon Dioxide 32 mmol/L (22-29); Chloride 102 mmol/L (96-108); Creatinine Clr Calc Pharmacy 62.9; Estimated Glomerular Filt Rate > 60; Glucose Random 177 mg/dL (60-115); Sodium 143 mmol/L (135-145)
--- NOTE | 2022-06-05 09:27 | PC.NURSE ---
Report to [facility] RN awaiting transport
[2022-06-05 09:33] LABS: Troponin-I High Sensitivity 29.4 ng/L (<3.5-17.0)
--- NOTE | 2022-06-05 10:20 | MHC.CM.PN ---
CM met with Patient at bedside with the assist of Indonesian translation. Patient lives alone in an apartment and she uses a walker to assist with mobility. Patient receives 1 hour/day of CAREER TECHNICAL EDUCATION TEACHER assistance and home/resume said services is the goal; CM has initiated and will follow for dc planning. Patient has received Pf[employer] vax x1 and her PCP is Dr. Dereck Navarro.
--- NOTE | 2022-06-05 10:28 | PHA.MEDREC ---
Pharmacy Consult ? Medication Reconciliation Pharmacy has completed the medication reconciliation. Handle Sander Operator services used, pt poor historian. Multiple attempts to call POWER HOUSE CONTROL ROOM OPERATOR have gone unanswered. Spoke to patient directly and used claim history
--- NOTE | 2022-06-05 10:34 | PM.EVENT ---
Event Note Date of Service: 06/05/22 Event Note: pt seen, admitted this morning with exacerbation of asthma/copd, a/p as outline in H and P from today Time Spent With Patient Time: Total time managing care of this patient today ____ minutes.
[2022-06-05 11:15] LABS: Glucose, Whole Blood 164 mg/dL (60-115)
[2022-06-05] MEDS: Albuterol/Iprat 2.5/0.5MG 3 ML AMPUL.NEB INHALE ×3 (11:15→19:05)
[2022-06-05 16:54] LABS: Glucose, Whole Blood 189 mg/dL (60-115)
--- NOTE | 2022-06-05 17:27 | PC.NURSE ---
Late entry-pt accepted from the ER. Oriented to unit, call ferris, and bed controls.
[2022-06-05 20:21] LABS: Glucose, Whole Blood 182 mg/dL (60-115)
[2022-06-06] VITALS (9 sets, daily range): BP systolic 140–176; BP diastolic 67–98; PULSE 68–130; RESP 15–20; TEMP 36.2–37.2; O2SAT 90–100
[2022-06-06] MEDS: Azithromycin 500 MG in 0.9 % Sodium Chloride 250 ML 125 MG IV (00:54)
[2022-06-06] MEDS: methylPREDNISolone Sod Succ 40 MG/ML VIAL IVPUSH ×2 (00:54→11:51)
[2022-06-06] MEDS: Enoxaparin Sodium 40 MG/0.4 ML SYRINGE SUBCUT (00:55)
[2022-06-06 02:39] LABS: Glucose, Whole Blood 171 mg/dL (60-115)
[2022-06-06] MEDS: Albuterol/Iprat 2.5/0.5MG 3 ML AMPUL.NEB INHALE ×3 (07:11→15:35)
[2022-06-06 07:19] LABS: Glucose, Whole Blood 166 mg/dL (60-115)
[2022-06-06] MEDS: 0.9 % Sodium Chloride Flush 3 ML SYRINGE IVFLUSH ×3 (07:54→21:33)
[2022-06-06] MEDS: Insulin Lispro 100 UNIT/ML 3 ML VIAL SUBCUT ×2 (07:54→16:29)
[2022-06-06] MEDS: Losartan Potassium 50 MG TABLET 100 MG PO (08:16)
[2022-06-06] MEDS: Folic Acid 1 MG TABLET PO (08:16)
[2022-06-06] MEDS: carvediloL 25 MG TABLET PO ×2 (08:16→21:33)
[2022-06-06] MEDS: Furosemide 40 MG TABLET PO (08:16)
[2022-06-06] MEDS: Isosorbide Mononitrate 30 MG TAB.ER.24H PO (08:16)
[2022-06-06 10:35] LABS: Glucose, Whole Blood 125 mg/dL (60-115)
--- NOTE | 2022-06-06 10:45 | HO.PM.IMPN ---
Subjective Subjective Date of Service: 06/06/22 Interval History: f/u on asthma/copd exacerbatio still sob, overall better however Review of Systems sob Physical Exam Vital Signs: Vital Signs: Last Vital Signs Temp 99.0 F 06/06/22 07:11 Pulse 79 06/06/22 07:13 Resp 18 06/06/22 07:13 BP 140/80 H 06/06/22 07:11 Pulse Ox 100 06/06/22 07:11 O2 Del Method 06/06/22 07:11 O2 Flow Rate 3 06/06/22 07:11 Oxygen Flow Rate 5 06/04/22 17:17 BMI result Body Mass Index 30.9 Const: Other: General: AO X 3, no acute distress Resp: some wheeze, n CVS: S1,S2,RRR GI: +BS, NT, no distention Skin: No rash Neuro: motor grossly intact Psych: appropriate affect Objective Data Active Medications Acetaminophen (Acetaminophen 325 Mg Tablet) 650 mg PO Q6H PRN PRN Reason: Pain, Mild (Pain Scale 1-3) Albuterol/Ipratropium (Albuterol/Iprat 2.5/0.5mg 3 Ml Ampul.Neb) 3 ml INHALE RQ4H WHILE AWAKE [facility] Last Admin: 06/06/22 07:11 Dose: 3 ml Documented By: FAISAL Albuterol/Ipratropium (Albuterol/Iprat 2.5/0.5mg 3 Ml Ampul.Neb) 3 ml INHALE Q4H PRN PRN Reason: Wheezing Carvedilol (Carvedilol 25 Mg Tablet) 25 mg PO BID WALDEMAR; Protocol Last Admin: 06/06/22 08:16 Dose: 25 mg Documented By: EDY Dextrose (Dextrose 50 % 25 Gm/50 Ml Syringe) 25 gm IVPUSH Q15M PRN; Protocol PRN Reason: per Hypoglycemia Standing Ord. Enoxaparin Sodium (Enoxaparin Sodium 40 Mg/0.4 Ml Syringe) 40 mg SUBCUT Q24H [facility] Last Admin: 06/06/22 00:55 Dose: 40 mg Documented By: YO Folic Acid (Folic Acid 1 Mg Tablet) 1 mg PO DAILY [facility] Last Admin: 06/06/22 08:16 Dose: 1 mg Documented By: EDY Furosemide (Furosemide 40 Mg Tablet) 40 mg PO DAILY [facility]; Protocol Last Admin: 06/06/22 08:16 Dose: 40 mg Documented By: EDY Glucose (Glucose Gel 15 Gm Gel..Gram.) 15 gm PO Q15M PRN; Protocol PRN Reason: per Hypoglycemia Standing Ord. Azithromycin 500 mg/ Sodium (Chloride) 250 mls @ 125 mls/hr IV Q24H [facility] Last Infusion: 06/06/22 03:13 Dose: 0 mls/hr Documented By: YO Insulin Human Lispro (Insulin Lispro 100 Unit/Ml 3 Ml Vial) 0.1 - 10 unit SUBCUT QIDACHS [facility]; Protocol Last Admin: 06/06/22 07:54 Dose: 2 unit Documented By: EDY Isosorbide Mononitrate (Isosorbide Mononitrate 30 Mg Tab.Er.24h) 30 mg PO DAILY [facility]; Protocol Last Admin: 06/06/22 08:16 Dose: 30 mg Documented By: EDY Losartan Potassium (Losartan Potassium 50 Mg Tablet) 100 mg PO DAILY [facility]; Protocol Last Admin: 06/06/22 08:16 Dose: 100 mg Documented By: EDY Meclizine HCl (Meclizine Hcl 25 Mg Tablet) 25 mg PO TID PRN PRN Reason: dizziness Melatonin (Melatonin 3 Mg Tablet) 6 mg PO BEDTIME PRN PRN Reason: Insomnia Methylprednisolone Sodium Succinate (Methylprednisolone Sod Succ 40 Mg/Ml Vial) 40 mg IVPUSH Q12H [facility] Last Admin: 06/06/22 00:54 Dose: 40 mg Documented By: YO Montelukast Sodium (Montelukast Sodium 10 Mg Tablet) 10 mg PO BEDTIME [facility]ALDEMAR Ondansetron HCl (Ondansetron Hcl 4 Mg/2 Ml Vial) 4 mg IVPUSH Q8H PRN PRN Reason: Nausea and Vomiting Pharmacy Consult (Consult Rx Perform Med Rec) 1 each MISCELLANE ONCE PRN PRN Reason: Consult order Quetiapine Fumarate (Quetiapine Fumarate 50 Mg Tablet) 50 mg PO BID [facility] Sertraline HCl (Sertraline Hcl 100 Mg Tablet) 200 mg PO DAILY [facility] Sodium Chloride (0.9 % Sodium Chloride Flush 3 Ml Syringe) 3 ml IVFLUSH QSHIFT [facility] Last Admin: 06/06/22 07:54 Dose: 3 ml Documented By: EDY Tiotropium [place] (Tiotropium [place] 18 Mcg Cap.W.Dev) 1 puff INHALE RDAILJerome [facility] Trazodone HCl (Trazodone Hcl 50 Mg Tablet) 50 - 100 mg PO BEDTIME PRN PRN Reason: Sleep Labs 06/05/22 09:03 06/05/22 09:03 Labs: Laboratory Results - last 24 hr 06/05/22 06/05/22 06/05/22 11:09 16:49 20:18 POC Glucose 164 H 189 H 182 H 06/06/22 06/06/22 06/06/22 02:34 07:07 10:31 POC Glucose 171 H 166 H 125 H Microbiology Microbiology Results: Microbiology 06/04/22 19:47 Blood Culture - Preliminary Blood - Venous No growth after 24 hours. 06/04/22 19:47 Blood Culture - Preliminary Blood - Venous No growth after 24 hours. Assessment and Plan (1) Asthma exacerbation: Status: Acute Plan This is a 61-year-old female with pertinent history of fzq-dlijuft-coyzughpw diabetes mellitus, essential hypertension, congestive heart failure with reduced ejection fraction, mixed hyperlipidemia, KELLIE noncompliant with CPAP, pulmonary hypertension, mood disorder, chronic hypoxemic respiratory failure due to COPD with baseline 4-5 L oxygen who presents to the emergency department for evaluation of dyspnea. #. Acute on chronic hypoxemic respiratory failure due to: #. Acute exacerbation of COPD - Scheduled and p.r.n. DuoNebs. IV azithromycin for pleiotropic effect. Continue home inhaler. -monitor oxygen saturation and wean as tolerated. Maintain oxygen saturation greater than 88 to 93 #. Lsc-tjveekc-hjvdhoiqx diabetes mellitus with hyperglycemia: Initiating Accu-Cheks with sliding scale insulin #. Congestive heart failure with reduced ejection fraction: Patient euvolemic. Continue Lasix, ARB, beta-coco #. Hypertensive urgency: resolved, continue BP meds #. Mood disorder: Continue home mood stabilizers #. Chronic normocytic anemia: Hemoglobin above transfusion threshold #. Hypokalemia: Repleted #. Elevated troponin likely due to increased demand. Repeat. No chest discomfort #. Obesity: Counseled regarding weight loss Med rec pending DVT prophylaxis: Lovenox 40 mg daily Full code Cardiac diet Need for inpt: copd exacerbation needing iv abx Time Spent With Patient Time: Total time managing care of this patient today ____ minutes. Quality Stroke Does the patient have a stroke diagnosis?: No VTE Prior VTE?: No VTE Risk Level:: Medical - moderate - high VTE Device Contraindication: Treatment Not Indicated VTE Drug Contraindication: N/A - Med Ordered
--- NOTE | 2022-06-06 11:15 | PC.RT ---
called pharmacy for pt.s [place]. med still not here. will re-call again.
[2022-06-06 11:47] LABS: Anion Gap 13 (12-20); Blood Urea Nitrogen 16 mg/dL (9-16); Calcium 9.2 mg/dL (8.4-10.2); Carbon Dioxide 33 mmol/L (22-29); Chloride 101 mmol/L (96-108); Creatinine Clr Calc Pharmacy 63.1; Estimated Glomerular Filt Rate > 60; Glucose Random 135 mg/dL (60-115); Potassium 3.5 mmol/L (3.3-5.1); Sodium 143 mmol/L (135-145)
[2022-06-06] MEDS: Sertraline HCL 100 MG TABLET 200 MG PO (11:51)
[2022-06-06] MEDS: Montelukast Sodium 10 MG TABLET PO ×2 (11:52→21:33)
[2022-06-06] MEDS: QUEtiapine Fumarate 50 MG TABLET PO ×2 (11:52→21:33)
--- NOTE | 2022-06-06 12:49 | MHC.CM.PN ---
per rounds pt is npo will neee iv fluids no anticapated dc date at thsi time
--- NOTE | 2022-06-06 14:03 | P.CDIC_ITS ---
CDI Concurrent Query Documentation Clarification: PHYSICIAN'S DOCUMENTATION REQUEST Date of Query: 06/06/22 1404 Patient Name: Paola Romero Admit Date: 06/05/22 Dear Doctor, Please review the following and provide your response in the progress notes. Clinical Indicators: The diagnosis of asthma was documented in the record on 06/05/22. Additional clinical indicators from the record include: Risk Factors/Clinical Indicators/Treatments per MD note: exacerbation of asthma Based on the above, please clarify in the Progress Notes further specificity regarding the type and acuity of the asthma: Type: * Mild intermittent - less than 2x/week * Mild persistent - more than 2x/week but not daily * Moderate persistent - daily and may restrict physical activity * Severe persistent - throughout the day with frequent attacks, limiting activities * Exercise induced * Chronic obstructive asthma and indicate if with acute lower respiratory infection * Asthma with underlying COPD and indicate if with acute lower respiratory infection * Other ? please specify * Unable to determine Use of terms such as suspected, likely, concern for, or probable (associated with a specific diagnosis that is being evaluated, monitored, or treated as if it exists) are acceptable and can be coded in the inpatient setting, when documented at the time of discharge. Thank you, Jewell Hernandez RN Extension: [phone] Please use your independent medical judgment in providing your response. THIS QUERY IS PART OF THE PERMANENT MEDICAL RECORD
--- NOTE | 2022-06-06 14:03 | MHC.CDI.CONC ---
CDI Concurrent Query Documentation Clarification: PHYSICIAN'S DOCUMENTATION REQUEST Date of Query: 06/06/22 1404 Patient Name: Paola Romero Admit Date: 06/05/22 Dear Doctor, Please review the following and provide your response in the progress notes. Clinical Indicators: The diagnosis of asthma was documented in the record on 06/05/22. Additional clinical indicators from the record include: Risk Factors/Clinical Indicators/Treatments per MD note: exacerbation of asthma Based on the above, please clarify in the Progress Notes further specificity regarding the type and acuity of the asthma: Type: Mild intermittent - less than 2x/week Mild persistent - more than 2x/week but not daily Moderate persistent - daily and may restrict physical activity Severe persistent - throughout the day with frequent attacks, limiting activities Exercise induced Chronic obstructive asthma and indicate if with acute lower respiratory infection Asthma with underlying COPD and indicate if with acute lower respiratory infection Other ? please specify Unable to determine Use of terms such as suspected, likely, concern for, or probable (associated with a specific diagnosis that is being evaluated, monitored, or treated as if it exists) are acceptable and can be coded in the inpatient setting, when documented at the time of discharge. Thank you, Jewell Hernandez RN Extension: [phone] Please use your independent medical judgment in providing your response. THIS QUERY IS PART OF THE PERMANENT MEDICAL RECORD
[2022-06-06 15:36] LABS: Glucose, Whole Blood 212 mg/dL (60-115)
[2022-06-06 20:03] LABS: Glucose, Whole Blood 100 mg/dL (60-115)
[2022-06-07] MEDS: methylPREDNISolone Sod Succ 40 MG/ML VIAL IVPUSH (00:02)
[2022-06-07] MEDS: Azithromycin 500 MG in 0.9 % Sodium Chloride 250 ML 125 MG IV (00:02)
[2022-06-07] MEDS: Enoxaparin Sodium 40 MG/0.4 ML SYRINGE SUBCUT (00:06)
[2022-06-07 03:35] VITALS: BP 145/103; PULSE 84; RESP 15; TEMP 36.4; O2SAT 98
[2022-06-07] MEDS: Albuterol/Iprat 2.5/0.5MG 3 ML AMPUL.NEB INHALE ×3 (07:57→14:45)
[2022-06-07 08:00] VITALS: PULSE 88; RESP 20; O2SAT 91
--- NOTE | 2022-06-07 08:08 | PC.NURSE ---
Patient did not void overnight. Bladder scan showed 335ml. Pt denies urge to void.
[2022-06-07 08:11] LABS: Glucose, Whole Blood 156 mg/dL (60-115)
[2022-06-07] MEDS: Insulin Lispro 100 UNIT/ML 3 ML VIAL SUBCUT ×2 (08:21→11:47)
[2022-06-07] MEDS: Sertraline HCL 100 MG TABLET 200 MG PO (08:22)
[2022-06-07] MEDS: Losartan Potassium 50 MG TABLET 100 MG PO (08:22)
[2022-06-07] MEDS: Folic Acid 1 MG TABLET PO (08:22)
[2022-06-07] MEDS: Isosorbide Mononitrate 30 MG TAB.ER.24H PO (08:22)
[2022-06-07] MEDS: Furosemide 40 MG TABLET PO (08:22)
[2022-06-07] MEDS: carvediloL 25 MG TABLET PO (08:22)
[2022-06-07] MEDS: QUEtiapine Fumarate 50 MG TABLET PO (08:23)
[2022-06-07 08:26] VITALS: BP 177/90; PULSE 78; RESP 18; O2SAT 95
[2022-06-07 11:28] VITALS: PULSE 81; RESP 18; O2SAT 97
[2022-06-07 11:35] LABS: Glucose, Whole Blood 168 mg/dL (60-115)
--- NOTE | 2022-06-07 12:34 | P.DS_ITS ---
DS: Providers Provider Date of Service: 06/07/22 Date of admission: 06/05/22 00:01 Primary care physician: Dereck Navarro MD DS: Diagnosis Discharge Diagnosis (1) Asthma exacerbation: Status: Acute DS: Summary Hospital Course Hospital Course: Chief Complaint: Dyspnea This is a 61-year-old female with pertinent history of [id number] diabetes mellitus, essential hypertension, congestive heart failure with reduced ejection fraction, mixed hyperlipidemia, KELLIE noncompliant with CPAP, pulmonary hypertension, mood disorder, chronic hypoxemic respiratory failure due to COPD with baseline 4-5 L oxygen who presents to the emergency department for evaluation of dyspnea.? Patient states she is getting progressively short of breath, worse with exertion over the last 2-3 days.? Also has had associated wheezing.? Denies PND and orthopnea.? No leg swelling.? Patient without fever, chills, palpitations, chest discomfort, abdominal pain, changes in urinary or bowel habits. In the emergency department, patient was found to be hypoxemic on her baseline supplemental oxygen and was requiring an 9-10 L using OxyMask. Hospital course: Patient was admitted once again with acute on chronic respiratory failure related to COPD and severe persistent asthma with acute exacerbaton. She was treated with bronchodilators by Neb, IV steroid and hs signficnatly improved. Will trnsitioned to oral Steroid for 3 more days, she is sternly advised to avoid smoking Time Spent with Patient Time attestation: Total time managing care of this patient today ____ minutes. Discharge coordination time: Greater than 30 minutes Quality: Safe Use of Opioids Does Pt have an Active Cancer Diagnosis on the Problem List?: No Quality: Stroke Does the patient have a stroke diagnosis?: No Physical Exam Vital Signs: Vital Signs: Last Vital Signs Temp 97.5 F 06/07/22 03:35 Pulse 81 06/07/22 11:28 Resp 18 06/07/22 11:28 BP 177/90 H 06/07/22 08:26 Pulse Ox 95 06/07/22 08:26 O2 Del Method 06/07/22 08:26 O2 Flow Rate 4 06/07/22 08:26 Oxygen Flow Rate 5 06/04/22 17:17 BMI result Body Mass Index 30.9 Const: Other: General: AO X 3, no acute distress Resp: CTA bilateral CVS: S1,S2,RRR GI: +BS, NT, no distention Skin: No rash Neuro: motor grossly intact Psych: appropriate affect DS: Data Data Completed and Pending Completed studies during hospitalization [Text1]: Procedures Assistance with Respiratory Ventilation, Less than 24 Consecutive Hours, Contin uous Positive Airway Pressure (04/28/22) Labs on day of discharge: Laboratory Results - last 24 hr 06/06/22 06/06/22 06/07/22 15:17 19:59 07:31 POC Glucose 212 H 100 156 H 06/07/22 11:29 POC Glucose 168 H Preliminary micro results at discharge 06/04/22 19:47 Blood Culture - Preliminary Blood - Venous No growth after 48 hours. 06/04/22 19:47 Blood Culture - Preliminary Blood - Venous No growth after 48 hours. Discharge Plan Discharge Anticipated Discharge Date/Time: 06/07/22 12:24 Patient Disposition: Home, Self-Care Discharge Diagnosis: Asthma/COPD exacerbation Referrals: Dereck Navarro MD [Primary Care Provider] - 1 Week Discharge Medications: New prednisone 20 mg tablet 20 mg PO DAILY Qty: 3 0RF Continued sertraline 100 mg tablet 200 mg PO DAILY 90 Days Qty: 180 1RF quetiapine 50 mg tablet 50 mg PO BID 90 Days Qty: 180 1RF isosorbide mononitrate 30 mg tablet extended release 24 hr 30 mg PO DAILY 90 Days Qty: 90 3RF Protocol: Hold for SBP< HOLD for SBP < : 90 montelukast 10 mg tablet 10 mg PO BEDTIME Qty: 30 11RF Spiriva with HandiHaler 18 mcg capsule, w/inhalation device 1 cap inhalation DAILY 30 Days Qty: 30 5RF meclizine 25 mg tablet 25 mg PO TID PRN (Reason: dizziness) 30 Days Qty: 90 0RF losartan 50 mg tablet 100 mg PO DAILY Qty: 60 0RF Protocol: Hold for SBP< HOLD for SBP < : 90 furosemide 40 mg tablet 40 mg PO DAILY Qty: 30 3RF trazodone 50 mg tablet 50 - 100 mg PO BEDTIME PRN (Reason: Sleep) folic acid 1 mg Tablet 1 mg PO DAILY Qty: 90 4RF carvedilol 25 mg Tablet 25 mg PO BID Qty: 60 0RF Protocol: Hold for SBP/HR < HOLD for SBP < : 90 HOLD for HR < : 60 Discharge Orders: Discharge Order (Routine); Ordered 06/07/22 Ordered By: Sahil Yost Diet: Diabetic diet Activity on Discharge: As tolerated Stand Alone Forms: Patient Portal Discharge page Care Plan Goals: full recovery Health Concerns: copd asthma chronic tobacco use Plan of Treatment: use inhalers take Prednione as directed stop smoking follow up with your Doctor in a week Assessment: as above Discharge Date/Time: 06/07/22 16:09
--- NOTE | 2022-06-07 13:20 | MHC.CM.PN ---
DP: PT HAS BEEN MEDICALLY CLEARED FOR DC HOME, NO SERVICES. RN AWARE. BLS TRANSPORT SET UP [facility]IA [facility] FOR 3:30 PM
[2022-06-07 14:46] VITALS: PULSE 90; RESP 18; O2SAT 94
== END 2022-06-07 16:09 | disposition home or self-care (01) | DRG 140 ==
LOC: HO.ED 06-05 00:01 → HO.EDOVER 06-05 00:12 → HO.IMC 06-05 07:45
PROVIDERS: Admitting Provider Student in an Organized Health Care Education/Training Program; Emergency Provider Emergency Medicine; PCP Internal Medicine; Visit Provider Internal Medicine
DX: J44.1 Chronic obstructive pulmonary disease with (acute) exacerbation (principal); J96.21 Acute and chronic respiratory failure with hypoxia; Z99.81 Dependence on supplemental oxygen; J45.51 Severe persistent asthma with (acute) exacerbation; E78.2 Mixed hyperlipidemia; E11.65 Type 2 diabetes mellitus with hyperglycemia; I16.0 Hypertensive urgency; E87.6 Hypokalemia; F17.210 Nicotine dependence, cigarettes, uncomplicated; E66.9 Obesity, unspecified; F32.A Depression, unspecified; Z68.30 Body mass index [BMI] 30.0-30.9, adult; G47.33 Obstructive sleep apnea (adult) (pediatric); Z66 Do not resuscitate; Z71.6 Tobacco abuse counseling; Z20.822 Contact with and (suspected) exposure to COVID-19; Z88.8 Allergy status to other drugs, medicaments and biological substances; Z79.899 Other long term (current) drug therapy
CPT/HCPCS: 36415; 71045; 71250; 80048; 80076; 82803; 82947; 83036; 83605; 83880; 84484; 85025; 85610; 87040; 87502; 87635; 93005; 94640; 99285; J0456; J1650; J1940; J2920; J2930; J3475

== ENCOUNTER 2022-07-22 18:05 | Inpatient (IN) | payer OTHER, SELFPAY ==
[2022-07-22] VITALS (9 sets, daily range): BP systolic 131–195; BP diastolic 62–108; PULSE 86–138; RESP 15–22; TEMP 36.6–36.7; O2SAT 78–98; BMI 33.6
--- NOTE | ~2022-07-22 | XR_ITS ---
EXAMINATION: XR CHEST CLINICAL INFORMATION: Shortness of breath COMPARISON: Chest radiograph and chest CT dated 06/04/2022 TECHNIQUE: Frontal view of the chest was obtained. FINDINGS: Mild cardiomegaly is again seen. There is no evidence of CHF. Bibasilar atelectasis is present which appears minimally improved since the prior study. No large pleural effusions are seen. No consolidations, pneumothorax or lung masses. XR/XR chest 1V IMPRESSION: No acute intrathoracic disease. Bibasilar atelectasis.
--- NOTE | 2022-07-22 18:40 | PC.NURSE ---
Patient receiving end of nebulizer treatment upon coming into the hospital. Patient with increased work of breathing, lung sounds diminished with some slight crackles. Patient states that she has been feeling unwell for a whole bunch of days. Patient placed on oxymask at 6L sating at 96%
--- NOTE | 2022-07-22 18:50 | ED.SOB ---
HPI - SOB/Dyspnea General Chief Complaint: Dyspnea Stated Complaint: difficultly breathing Time Seen by Provider: 07/22/22 18:30 Source: patient Mode of arrival: EMS Limitations: no limitations History of Present Illness HPI Narrative: Patient with history of major depression, pulmonary hypertension, severe COPD, diabetes, hypertension, HFrEF on chronic hypoxic respiratory failure oxygen at home 4-5 L comes here for increased shortness of breath for last few days. Patient has been here multiple times for similar situation last admission was 06/05/2022. Patient been using nebulizing treatment at home saturating 88% on 5 L on arrival complaining of left-sided chest pain on taking deep breath Related Data Home Medications Medication Instructions Recorded Confirmed trazodone 50 mg tablet 50 mg PO BEDTIME PRN Sleep 03/08/20 07/22/22 carvedilol 12.5 mg tablet 1 tab PO BID 07/22/22 07/22/22 Previous Rx's Medication Instructions Recorded quetiapine 50 mg tablet 50 mg PO BID 90 days #180 tabs 12/18/20 sertraline 100 mg tablet 200 mg PO DAILY 90 days #180 tabs 12/18/20 isosorbide mononitrate 30 mg 30 mg PO DAILY 90 days #90 tabs 08/15/21 tablet,extended release 24 hr folic acid 1 mg tablet 1 mg PO DAILY #90 tabs 09/01/21 montelukast 10 mg tablet 10 mg PO BEDTIME #30 tabs 11/01/21 tiotropium bromide 18 mcg capsule 1 cap inhalation DAILY #30 ea 06/29/22 with inhalation device (Spiriva with HandiHaler) furosemide 40 mg tablet 40 mg PO DAILY #30 tabs 07/03/22 Allergies Allergy/AdvReac Type Severity Reaction Status Date / Time nicotine [Nicotine] Allergy Mild ITCHING Verified 05/19/22 09:50 WITH THE PATCHES topiramate Allergy Mild inadequealte Verified 05/19/22 09:50 response [facility] Past Medical History Medical History Anxiety Atelectasis, right Chronic respiratory failure Depression Diabetes Essential hypertension HFrEF (heart failure with reduced ejection fraction) HLD (hyperlipidemia) HTN (hypertension) Hypertensive emergency Non-rheumatic mitral regurgitation Nonischemic cardiomyopathy KELLIE (obstructive sleep apnea) Osteoporosis Pulmonary hypertension Respiratory failure with hypoxia and hypercapnia Severe chronic obstructive pulmonary disease Supraventricular tachycardia Tobacco abuse Surgical History Bilateral ankle fractures History of total abdominal hysterectomy Family History Family History Father No problems noted. 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 home services: No Unable to assess alcohol history related to: Unable to respond Alcohol intake: never Patient Tobacco Use Status: Never used Tobacco Tobacco use type: Cigarette Cigarettes Per Day: 4 Years Smoked: 50 +/- Smoked in Last 30 Days: Yes e-Cigarette/Vaping Use: Never Used Second Hand Smoke Exposure: No Use of substances other than those prescribed or required for medical reasons: No Advance Directives: Yes Advance Directives on File: Yes Advance Directives Date on File: 04/30/20 service: No Current occupational status: disabled Cognitive needs: Yes Hearing needs: No Vision needs: No Physical Exam Vital Signs: Vital Signs: Last Vital Signs Temp 98.0 F 07/22/22 21:50 Pulse 88 07/23/22 00:51 Resp 14 07/23/22 00:51 BP 148/97 H 07/23/22 00:51 Pulse Ox 93 07/23/22 00:51 O2 Del Method 07/23/22 00:51 O2 Flow Rate 45 07/23/22 00:51 Oxygen Flow Rate 7 07/22/22 18:29 BMI result Body Mass Index 33.6 Appearance: Alert. Oriented X3. Moderate respiratory distress on 5 L of oxygen saturating 90% Eyes: No pallor /icterus ENT: Pharynx normal. Oral Mucosa moist Neck: Normal inspection. Neck supple. CVS: Normal heart rate and rhythm. Pulses normal. Respiratory: Moderate respiratory distress. Equal air entry bilateral, prolonged expiration decreased air entry bilateral Abdomen: Soft and nontender. Bowel sounds are present, no mass palpable, no CVA tenderness Skin: Skin warm and dry. Normal skin color. Normal skin turgor. Extremities: No lower extremity edema. No calf tenderness Neuro: Oriented X 3. No motor deficit. Medications Administered Generic Name Dose Route Start Last Admin Trade Name Freq PRN Reason Stop Dose Admin Carvedilol 12.5 mg 07/22/22 21:55 07/22/22 22:50 Carvedilol 12.5 Mg Tablet PO Not Given BID [facility] Protocol Enoxaparin Sodium 40 mg 07/22/22 22:00 07/22/22 23:09 Enoxaparin Sodium 40 Mg/0.4 Ml Syringe SUBCUT 40 mg Q24H WALDEMAR Administration Sodium Chloride 3 ml 07/23/22 00:00 07/23/22 02:12 0.9 % Sodium Chloride Flush 3 Ml Syringe IVFLUSH 3 ml QSHIFT WALDEMAR Administration Discontinued Medications Generic Name Dose Route Start Last Admin Trade Name Freq PRN Reason Stop Dose Admin Albuterol Sulfate 7.5 mg/ 0 mg 07/22/22 19:19 07/22/22 20:01 Ipratropium [place] 0.5 mg INHALE 07/22/22 19:20 1 each ONCE ONE Administration Dexamethasone Sodium Phosphate 10 mg 07/22/22 19:19 07/22/22 20:52 Dexamethasone Sod Phosphate 10 Mg/Ml Vial IVPUSH 07/22/22 19:20 10 mg ONCE ONE Administration Magnesium Sulfate 2 gm in 50 mls @ 25 mls/hr 07/22/22 23:48 07/22/22 23:48 Magnesium Sulfate/H2o IV 07/23/22 01:47 25 mls/hr ONCE ONE Administration Labetalol HCl 5 mg 07/22/22 22:54 07/22/22 23:31 Labetalol Hcl 100 Mg/20 Ml Vial IVPUSH 07/22/22 22:55 Not Given ONCE ONE Methylprednisolone Sodium Succinate 125 mg 07/22/22 23:48 07/22/22 23:48 Methylprednisolone Sod Succ 125 Mg/2 Ml Vial IVPUSH 07/22/22 23:49 125 mg ONCE ONE Administration Medical Decision Making Medical Decision Making [facility] Narrative: Patient with severe COPD with chronic CHF got worse in last 5 days desaturated to 70% on 5 L in the ER BiPAP was applied admitted to medical floor on BiPAP patient saturating 94% requiring multiple nebulizing treatment and steroids Differential Diagnosis CHF/COPD/pleural effusion/pneumonia Consult Healthcare Provider Management of the patient was discussed with: Hospitalist Lab Data MDM Lab Attestation statement: I reviewed the patient's lab results. 07/22/22 20:44 03/21/23 20:44 Labs: Lab Results 07/22/22 07/22/22 07/22/22 Range/Units 20:44 20:44 20:44 WBC 8.2 (4.8-10.8) X10*3/uL RBC 3.85 L (4.20-5.50) X10*6/uL Hgb 9.9 L (12.0-16.0) g/dl Hct 31.7 L (37.0-47.0) % MCV 82.3 (80.0-98.0) fL MCH 25.7 L (27.0-33.0) pg MCHC 31.2 (31.0-35.0) g/dl RDW 14.8 (11.0-16.0) % Plt Count 177 (160-400) X10*3/uL MPV 10.9 (9.4-12.3) fL Immature Gran % (Auto) 0.2 (0.0-0.4) % Neut % (Auto) 70.9 (45-73) % Lymph % (Auto) 23.1 (20-40) % [place] % (Auto) 4.7 (2-11) % Eos % (Auto) 0.9 (0-4) % Baso % (Auto) 0.2 (0-2) % Lymph # (Auto) 1.9 (1.2-4.9) X10*3/uL [place] # (Auto) 0.4 (0.1-1.2) X10*3/uL Eos # (Auto) 0.1 (0.0-0.4) X10*3/uL Baso # (Auto) 0.0 (0.0-0.2) X10*3/uL Abs Immat Gran (auto) 0.02 (0.00-0.03) X10*3/uL Absolute Neuts (auto) 5.8 (2.0-8.3) x10*3/uL Absolute Nucleated RBC 0.000 (0.0-0.012) X10*3/uL Nucleated RBC % (auto) 0.0 (0.0-0.2) /100WBC Sodium 141 (135-145) mmol/L Potassium 4.2 (3.3-5.1) mmol/L Chloride 106 (96-108) mmol/L Carbon Dioxide 24 (22-29) mmol/L Anion Gap 15 (12-20) BUN 10 (9-16) mg/dL Creatinine 0.77 (0.5-1.4) mg/dL Estim Creat Clear Calc 59.3 Estimated GFR > 60 Random Glucose 100 (60-115) mg/dL Calcium 8.8 (8.4-10.2) mg/dL Magnesium 2.0 (1.6-2.6) mg/dL Total Bilirubin 0.4 (0.0-1.0) mg/dL AST 29 (5-31) U/L ALT 15 (0-31) U/L Alkaline Phosphatase 135 H (39-117) U/L Troponin I High Sens (<3.5-17.0) ng/L B-Natriuretic Peptide 630 H (<100) pg/mL Total Protein 6.9 (6.5-8.0) g/dL Albumin 3.7 (3.5-5.0) g/dL Influenza Type A (PCR) (Negative) Influenza Type B (PCR) (Negative) RSV RNA Qual (PCR) (Negative) SARS-CoV-2 RNA (RT-PCR) (Negative) 07/22/22 07/22/22 Range/Units 20:44 20:44 WBC (4.8-10.8) X10*3/uL RBC (4.20-5.50) X10*6/uL Hgb (12.0-16.0) g/dl Hct (37.0-47.0) % MCV (80.0-98.0) fL MCH (27.0-33.0) pg MCHC (31.0-35.0) g/dl RDW (11.0-16.0) % Plt Count (160-400) X10*3/uL MPV (9.4-12.3) fL Immature Gran % (Auto) (0.0-0.4) % Neut % (Auto) (45-73) % Lymph % (Auto) (20-40) % [place] % (Auto) (2-11) % Eos % (Auto) (0-4) % Baso % (Auto) (0-2) % Lymph # (Auto) (1.2-4.9) X10*3/uL [place] # (Auto) (0.1-1.2) X10*3/uL Eos # (Auto) (0.0-0.4) X10*3/uL Baso # (Auto) (0.0-0.2) X10*3/uL Abs Immat Gran (auto) (0.00-0.03) X10*3/uL Absolute Neuts (auto) (2.0-8.3) x10*3/uL Absolute Nucleated RBC (0.0-0.012) X10*3/uL Nucleated RBC % (auto) (0.0-0.2) /100WBC Sodium (135-145) mmol/L Potassium (3.3-5.1) mmol/L Chloride (96-108) mmol/L Carbon Dioxide (22-29) mmol/L Anion Gap (12-20) BUN (9-16) mg/dL Creatinine (0.5-1.4) mg/dL Estim Creat Clear Calc Estimated GFR Random Glucose (60-115) mg/dL Calcium (8.4-10.2) mg/dL Magnesium (1.6-2.6) mg/dL Total Bilirubin (0.0-1.0) mg/dL AST (5-31) U/L ALT (0-31) U/L Alkaline Phosphatase (39-117) U/L Troponin I High Sens 46.1 H D (<3.5-17.0) ng/L B-Natriuretic Peptide (<100) pg/mL Total Protein (6.5-8.0) g/dL Albumin (3.5-5.0) g/dL Influenza Type A (PCR) NEGATIVE (Negative) Influenza Type B (PCR) NEGATIVE (Negative) RSV RNA Qual (PCR) NEGATIVE (Negative) SARS-CoV-2 RNA (RT-PCR) NEGATIVE (Negative) Independent Interpretation I performed an independent interpretation of an: EKG Interpretation: Normal sinus rhythm with a heart rate of 89 beats per minute right bundle-branch block nonspecific T-wave change no acute ischemia Critical Care Time Critical Care Time Critical Care Time: Yes Total Critical Care Time: 60 Attestation: The patient was critically ill with a high probability of imminent or life threatening deterioration. I spent greater than 65 minutes of discontinuous time evaluating the patient,delivering critical care at the bedside, discussing and evaluating pertinent data with consultants. Critical care time does not include time spent performing separately billable procedures or teaching. Total time spent performing critical care was 60 minutes. Discharge Plan Discharge Clinical Impression: Acute and chronic respiratory failure with hypoxia, Severe chronic obstructive pulmonary disease, HFrEF (heart failure with reduced ejection fraction) Patient Disposition: Admitted As Inpatient
--- NOTE | 2022-07-22 19:24 | ECG_ITS ---
Test Reason : DYSPNEA Blood Pressure : / mmHG Vent. Rate : 089 BPM Atrial Rate : 089 BPM P-R Int : 154 ms QRS Dur : 126 ms QT Int : 410 ms P-R-T Axes : 027 017 -24 degrees QTc Int : 498 ms Normal sinus rhythm Right bundle branch block T wave abnormality, consider inferior ischemia Abnormal ECG When compared with ECG of 04-JUN-2022 18:48, Right bundle branch block has replaced Non-specific intra-ventricular conduction block Inverted T waves have replaced nonspecific T wave abnormality in Inferior leads T wave inversion now evident in Anterior leads Referred By: Phillip Rivers Electronically Signed By:KEVIN ODELL MD
--- NOTE | 2022-07-22 20:43 | PHA.MEDREC ---
Pharmacy Consult ? Medication Reconciliation Pharmacy has completed the medication reconciliation.
[2022-07-22 20:50] LABS: MANUAL DIFF FLAG NO
[2022-07-22] MEDS: dexAMETHasone sod phosphate 10 MG/ML VIAL IVPUSH (20:52)
[2022-07-22 20:59] LABS: Basophils Percent Auto 0.2 % (0-2); Eosinophils Absolute Auto 0.1 X10*3/uL (0.0-0.4); Eosinophils Percent Auto 0.9 % (0-4); Hematocrit 31.7 % (37.0-47.0); Hemoglobin 9.9 g/dl (12.0-16.0); Imm Gran Abs Auto 0.02 X10*3/uL (0.00-0.03); Imm Gran Pct Auto 0.2 % (0.0-0.4); Lymphocytes Absolute Auto 1.9 X10*3/uL (1.2-4.9); Lymphocytes Percent Auto 23.1 % (20-40); Mean Corpuscular HGB Conc 31.2 g/dl (31.0-35.0); Mean Corpuscular Hemoglobin 25.7 pg (27.0-33.0); Mean Corpuscular Volume 82.3 fL (80.0-98.0); Mean Platelet Volume 10.9 fL (9.4-12.3); Monocytes Absolute Auto 0.4 X10*3/uL (0.1-1.2); Monocytes Percent Auto 4.7 % (2-11); Neutrophils Absolute Auto 5.8 x10*3/uL (2.0-8.3); Neutrophils Percent Auto 70.9 % (45-73); Platelet Count 177 X10*3/uL (160-400); Red Blood Count 3.85 X10*6/uL (4.20-5.50); Red Cell Distribution Width 14.8 % (11.0-16.0); White Blood Count 8.2 X10*3/uL (4.8-10.8)
[2022-07-22 21:10] LABS: Alanine Aminotransferase 15 U/L (0-31); Albumin Level 3.7 g/dL (3.5-5.0); Alkaline Phosphatase 135 U/L (39-117); Anion Gap 15 (12-20); Aspartate Amino Transferase 29 U/L (5-31); Bilirubin Total 0.4 mg/dL (0.0-1.0); Blood Urea Nitrogen 10 mg/dL (9-16); Calcium 8.8 mg/dL (8.4-10.2); Carbon Dioxide 24 mmol/L (22-29); Chloride 106 mmol/L (96-108); Creatinine Clr Calc Pharmacy 59.3; Estimated Glomerular Filt Rate > 60; Glucose Random 100 mg/dL (60-115); Potassium 4.2 mmol/L (3.3-5.1); Sodium 141 mmol/L (135-145); Total Protein 6.9 g/dL (6.5-8.0)
[2022-07-22 21:14] LABS: B Type Natriuretic Peptide 630 pg/mL (<100)
[2022-07-22 21:15] LABS: Troponin-I High Sensitivity 46.1 ng/L (<3.5-17.0)
[2022-07-22 21:36] LABS: Influenza A PCR NEGATIVE (Negative); Influenza B PCR NEGATIVE (Negative); Resp Syncy Virus RNA Qual PCR NEGATIVE (Negative); SARS COV2 PCR INHOUSE NEGATIVE (Negative)
--- NOTE | 2022-07-22 21:56 | PM.IMHP ---
History of Present Illness Date of Service: 07/22/22 Attending physician on admission: Carolyn Duvall Chief Complaint: sob 61-year-old female with pertinent history of pph-onavfiv-glqrsasqx diabetes mellitus, essential hypertension, congestive heart failure with reduced ejection fraction, mixed hyperlipidemia, KELLIE noncompliant with CPAP, pulmonary hypertension, mood disorder, chronic hypoxemic respiratory failure due to COPD with baseline 5 L oxygen who presents to the emergency department for evaluation of dyspnea. The patient states for the last 2-3 days she has been experiencing worsening shortness of breath both at rest and with exertion. She denies any orthopnea. She has not been requiring increased use of her nebulizer or increased oxygen. Denies any sick contacts. No fevers, chills, sore throat, congestion, cough, abd pain, n/v, palpitations, lightheadedness, or chest pain. On arrival, no acute hypoxia, hypertensive to 171/108, initial mild tachypnea to 22. Hematology studies baseline. Renal function baseline, electrolytes normal. Trop 46.1, BNP 630 consistent with baseline. CXR negative, except for bibasilar atelectasis. Negative for COVID-19, influenza, and rsv. Given albuterol and dexamethasone in ED. Review of Systems Review of Systems: Yes all other systems are reviewed and are negative [facility] Medical History Anxiety Atelectasis, right Chronic respiratory failure Depression Diabetes Essential hypertension HFrEF (heart failure with reduced ejection fraction) HLD (hyperlipidemia) HTN (hypertension) Hypertensive emergency Non-rheumatic mitral regurgitation Nonischemic cardiomyopathy KELLIE (obstructive sleep apnea) Osteoporosis Pulmonary hypertension Respiratory failure with hypoxia and hypercapnia Severe chronic obstructive pulmonary disease Supraventricular tachycardia Tobacco abuse Family History Father No problems noted. 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 home services: No Unable to assess alcohol history related to: Unable to respond Alcohol intake: never Patient Tobacco Use Status: Never used Tobacco Tobacco use type: Cigarette Cigarettes Per Day: 4 Years Smoked: 50 +/- Smoked in Last 30 Days: Yes e-Cigarette/Vaping Use: Never Used Second Hand Smoke Exposure: No Use of substances other than those prescribed or required for medical reasons: No Advance Directives: Yes Advance Directives on File: Yes Advance Directives Date on File: 04/30/20 service: No Current occupational status: disabled Cognitive needs: Yes Hearing needs: No Vision needs: No Meds Allergies Allergy/AdvReac Type Severity Reaction Status Date / Time nicotine [Nicotine] Allergy Mild ITCHING Verified 05/19/22 09:50 WITH THE PATCHES topiramate Allergy Mild inadequealte Verified 05/19/22 09:50 response Active Medications: Current Medications Albuterol Sulfate (Albuterol Sulfate (0.083%) 2.5 Mg/3 Ml Vial.Neb) 2.5 mg INHALE Q2H PRN PRN Reason: Shortness of Breath/Wheezing Carvedilol (Carvedilol 12.5 Mg Tablet) 12.5 mg PO BID [facility]; Protocol Albuterol Sulfate 2.5 mg/ (Ipratropium [place] 0.5 mg) 0 mg INHALE RQ4H WHILE AWAKE [facility] Enoxaparin Sodium (Enoxaparin Sodium 40 Mg/0.4 Ml Syringe) 40 mg SUBCUT Q24H [facility] Folic Acid (Folic Acid 1 Mg Tablet) 1 mg PO DAILY [facility] Furosemide (Furosemide 40 Mg Tablet) 40 mg PO DAILY [facility]; Protocol Isosorbide Mononitrate (Isosorbide Mononitrate 30 Mg Tab.Er.24h) 30 mg PO DAILY [facility]; Protocol Methylprednisolone Sodium Succinate (Methylprednisolone Sod Succ 125 Mg/2 Ml Vial) 60 mg IVPUSH Q12H [facility] Montelukast Sodium (Montelukast Sodium 10 Mg Tablet) 10 mg PO BEDTIME [facility] Quetiapine Fumarate (Quetiapine Fumarate 50 Mg Tablet) 50 mg PO BID [facility] Sertraline HCl (Sertraline Hcl 100 Mg Tablet) 200 mg PO DAILY [facility] Sodium Chloride (0.9 % Sodium Chloride Flush 3 Ml Syringe) 3 ml IVFLUSH QSHIFT [facility] Tiotropium [place] (Tiotropium [place] 18 Mcg Cap.W.Dev) puff INHALE DAILY [facility] Trazodone HCl (Trazodone Hcl 50 Mg Tablet) 50 mg PO BEDTIME PRN PRN Reason: Sleep Home Medications Medication Instructions Recorded Confirmed Last Taken Type trazodone 50 mg tablet 50 mg PO BEDTIME PRN Sleep 03/08/20 07/22/22 03/29/21 History carvedilol 12.5 mg tablet 1 tab PO BID 07/22/22 07/22/22 07/22/22 History Physical Exam Vital Signs and Narrative: Vital Signs: Last Vital Signs Temp 98.0 F 07/22/22 21:50 Pulse 87 07/22/22 21:50 Resp 17 07/22/22 21:50 BP 175/98 H 07/22/22 21:50 Pulse Ox 94 07/22/22 21:50 O2 Del Method 07/22/22 21:50 O2 Flow Rate 5 07/22/22 21:50 Oxygen Flow Rate 7 07/22/22 18:29 BMI result Body Mass Index 33.6 Constitutional - Awake and Alert, No apparent distress Eyes - PERRLA, EOMI Cardiovascular - S1S2, RRR, No edema Respiratory - Normal lung expansion, Normal respiratory effort, No respiratory distress, faint expiratory wheezes lower lobes bilaterally Gastrointestinal - NT / ND; +BS; No rebound or guarding Extremities - no calf tenderness bilaterally, no swelling Skin - Warm/Dry Neurological - Alert & oriented x3, CN II-XII in tact, 5/5 strength BUE and BLE Psychological - Appropriate affect Results Labs 07/22/22 20:44 07/22/22 20:44 Labs: Laboratory Results - last 24 hr 07/22/22 07/22/22 07/22/22 20:44 20:44 20:44 MCV 82.3 MCH 25.7 L MCHC 31.2 RDW 14.8 Plt Count 177 MPV 10.9 Immature Gran % (Auto) 0.2 Neut % (Auto) 70.9 Lymph % (Auto) 23.1 [place] % (Auto) 4.7 Eos % (Auto) 0.9 Baso % (Auto) 0.2 Lymph # (Auto) 1.9 [place] # (Auto) 0.4 Eos # (Auto) 0.1 Baso # (Auto) 0.0 Abs Immat Gran (auto) 0.02 Absolute Neuts (auto) 5.8 Absolute Nucleated RBC 0.000 Nucleated RBC % (auto) 0.0 Anion Gap 15 Estim Creat Clear Calc 59.3 Estimated GFR > 60 Random Glucose 100 Calcium 8.8 Magnesium 2.0 Total Bilirubin 0.4 AST 29 ALT 15 Alkaline Phosphatase 135 H Troponin I High Sens B-Natriuretic Peptide 630 H Total Protein 6.9 Albumin 3.7 Influenza Type A (PCR) Influenza Type B (PCR) RSV RNA Qual (PCR) SARS-CoV-2 RNA (RT-PCR) 07/22/22 07/22/22 20:44 20:44 MCV MCH MCHC RDW Plt Count MPV Immature Gran % (Auto) Neut % (Auto) Lymph % (Auto) [place] % (Auto) Eos % (Auto) Baso % (Auto) Lymph # (Auto) [place] # (Auto) Eos # (Auto) Baso # (Auto) Abs Immat Gran (auto) Absolute Neuts (auto) Absolute Nucleated RBC Nucleated RBC % (auto) Anion Gap Estim Creat Clear Calc Estimated GFR Random Glucose Calcium Magnesium Total Bilirubin AST ALT Alkaline Phosphatase Troponin I High Sens 46.1 H D B-Natriuretic Peptide Total Protein Albumin Influenza Type A (PCR) NEGATIVE Influenza Type B (PCR) NEGATIVE RSV RNA Qual (PCR) NEGATIVE SARS-CoV-2 RNA (RT-PCR) NEGATIVE Imaging Radiologist's Impressions: Impressions Chest X-Ray 07/22/22 19:26 IMPRESSION: No acute intrathoracic disease. Bibasilar atelectasis. Assessment and Plan (1) Severe chronic obstructive pulmonary disease: Status: Acute Plan 61-year-old female with pertinent history of mdh-cpajpuq-[id number] diabetes mellitus, essential hypertension, congestive heart failure with reduced ejection fraction, mixed hyperlipidemia, KELLIE noncompliant with CPAP, pulmonary hypertension, mood disorder, chronic hypoxemic respiratory failure due to COPD with baseline 5 L oxygen to be observed for COPD exacerbation #Acute COPD exacerbation- mild -CXR negative. Peak flow obtained- predicted 400, pre and post treatment 200. -Methylprednisolone 60mg IV BID -Duonebs q4h while awake -albuterol prn -Abx not indicated # chronic hypoxemic respiratory failure- no acute hypoxia -continue 5 L supplemental O2, baseline #HFrEF- no acute exacerbation -CXR negative, BNP baseline -Continue po diuretics # ukz-postynb-ziobdxdon type 2 diabetes -POC glucose, diabetic diet -Humalog on sliding scale # KELLIE -noncompliant with CPAP # hypertension -continue home antihypertensives #Mood disorder -continue home meds #Cigarette smoker -Assures me she does not smoke while wearing oxygen -Smoking cessation counseling provided -declines nrt DVT prophylaxis- lovenox DNR/DNI Time Spent With Patient Time: Total time managing care of this patient today ____ minutes. Quality Stroke Does the patient have a stroke diagnosis?: No VTE Prior VTE?: No VTE Risk Level:: Medical - moderate - high VTE Device Contraindication: Treatment Not Indicated VTE Drug Contraindication: N/A - Med Ordered
--- NOTE | 2022-07-22 22:06 | PC.NURSE ---
late entry- this rn assumed care of pt @ 1915. delay in obtaining bloodwork and iv placement due to this rn, additional rn, dry pan charger, and dr marvin attempting placement. 22 placed in L hand. pt medicated according to jul. blood work sent to lab. ekg obtained. hospitalist at bedside. educational interpreter services utilized.
--- NOTE | 2022-07-22 22:54 | PC.NURSE ---
@ 6636 this rn entered pt room to medicate pt according to mar. pt sat up on stretcher in preparation for med administration. pt at which time appeared dusky and sob. spo2 checked at this time. 78% on 5LPM NC. pt placed on non rebreather. this rn called dr martines and charge nurse into room. RT to pt room at this time pt given solumedrol 125mg iv push and magnesium 2g over [address] martines orders. propellant charge loader placed second iv line at this time. RT placed pt on bipap, albuterol given through bipap
[2022-07-22] MEDS: Enoxaparin Sodium 40 MG/0.4 ML SYRINGE SUBCUT (23:09)
--- NOTE | 2022-07-22 23:25 | PC.NURSE ---
late entry- this rn contacted dr whitehead regarding pt bp 131/83 and 154/101. orders placed for labetalol per dr whitehead hold labetalol at this time. this rn charted in mar accordingly
[2022-07-22] MEDS: Magnesium Sulfate/H2O 2 GM/50 ML PIGGYBACK IV (23:48)
[2022-07-22] MEDS: methylPREDNISolone Sod Succ 125 MG/2 ML VIAL IVPUSH (23:48)
[2022-07-23] VITALS (14 sets, daily range): BP systolic 134–170; BP diastolic 73–109; PULSE 78–92; RESP 12–22; TEMP 36.3–36.6; O2SAT 84–99
--- NOTE | 2022-07-23 00:51 | PC.NURSE ---
late entry- this rn medicated pt according to mar. pt given mag and methylprednisone @ [address] martines. orders not placed until [address] hensley. this rn charted accordingly in mar
[2022-07-23] MEDS: 0.9 % Sodium Chloride Flush 3 ML SYRINGE IVFLUSH ×4 (02:12→19:48)
--- NOTE | 2022-07-23 03:01 | PC.NURSE ---
pt sleeping on stretcher at this time. RR 16 SpO2 96 bipap 45%.
--- NOTE | 2022-07-23 04:55 | PC.NURSE ---
Provider wanted to assess pt's ability to be maintain SpO2 >88% without bipap. This RN contacted RT and have pt switched from O2 via bipap to NC. Pt was placed on O2 via NC at 6 lpm and able to maintain SpO2 at 91%. Provider made aware. Plan to administer breathing treatment and give another dose of steroids.
[2022-07-23 07:15] LABS: Glucose, Whole Blood 190 mg/dL (60-115)
[2022-07-23] MEDS: Insulin Lispro 100 UNIT/ML 3 ML VIAL SUBCUT ×2 (07:42→16:56)
[2022-07-23] MEDS: methylPREDNISolone Sod Succ 125 MG/2 ML VIAL 60 MG IVPUSH ×2 (07:42→19:48)
[2022-07-23] MEDS: Sertraline HCL 100 MG TABLET 200 MG PO (10:40)
[2022-07-23] MEDS: carvediloL 12.5 MG TABLET PO ×2 (10:40→21:34)
[2022-07-23] MEDS: Isosorbide Mononitrate 30 MG TAB.ER.24H PO (10:41)
[2022-07-23] MEDS: Furosemide 40 MG TABLET PO (10:41)
[2022-07-23] MEDS: Folic Acid 1 MG TABLET PO (10:41)
[2022-07-23] MEDS: QUEtiapine Fumarate 50 MG TABLET PO ×2 (10:42→20:53)
--- NOTE | 2022-07-23 10:42 | PC.NURSE ---
pt AOx3. pt sat 88% on 3L NC. vitals otherwise stable. pt reporting 7/10 flank pain and headache. Pt with Dr Weber and explosive ordnance specialist at this time. Medicated per jul.
--- NOTE | 2022-07-23 10:45 | MHC.EDTECH ---
Pt was incontinent of urine x1. Pt was given ariella care, linen changed and repositioned. Pt requested fresh water and was provided with an iced water pitcher. Pt is able to drink and eat on her own.
--- NOTE | 2022-07-23 12:51 | PC.NURSE ---
POC 145. Pt sat 86% on 3L NC. Will cont to monitor
[2022-07-23 12:55] LABS: Glucose, Whole Blood 145 mg/dL (60-115)
--- NOTE | 2022-07-23 13:30 | PC.NURSE ---
deniz texted dr alfaro over patients O2 sat, her goal is 88-89%, he requested a vbg to be drawn and call pulmonary to have an eval. this nurse called pulmonary who said they would get in touch with the medical supply technician and have them call dr. alfaro.
[2022-07-23 14:08] LABS: Venous Blood Gas Refer to POC result
[2022-07-23 14:09] LABS: VBG Base Excess 2.8 mmol/L; VBG HCO3 26 mmol/L (22-26); VBG pCO2 38 mmHg; VBG pH 7.45 (7.32-7.43); VBG pO2 43 mmHg
--- NOTE | 2022-07-23 14:20 | PC.NURSE ---
albuterol treatment finished. Resp instructed to put pt on 4L O2. Sat 87% on 4L
--- NOTE | 2022-07-23 15:23 | HO.PM.IMPN ---
Subjective Subjective Date of Service: 07/23/22 Interval History: Acute hypoxemic respiratory failure secondary to COPD exacerbation C Review of Systems This patient says shortness of breath is improving but still has intermittent short of breath, has dry cough, no fever no chills Physical Exam Vital Signs: Vital Signs: Last Vital Signs Temp 97.4 F 07/23/22 14:00 Pulse 90 07/23/22 14:00 Resp 18 07/23/22 14:00 BP 134/87 07/23/22 14:00 Pulse Ox 86 L 07/23/22 14:00 O2 Del Method 07/23/22 14:00 O2 Flow Rate 4 07/23/22 14:00 Oxygen Flow Rate 7 07/22/22 18:29 BMI result Body Mass Index 33.6 Appearance: Alert.? Oriented X3.?sob cvs: rrr, [id number] , no murmur res:air enrty slightly improving but still diminshed abd: no rebound or guarding ,nt, bs present. ext pulses present , no cyanosis. neuro: axo3 , nonfocal. Objective Data Active Medications Albuterol Sulfate (Albuterol Sulfate (0.083%) 2.5 Mg/3 Ml Vial.Neb) 2.5 mg INHALE Q2H PRN PRN Reason: Shortness of Breath/Wheezing Carvedilol (Carvedilol 12.5 Mg Tablet) 12.5 mg PO BID [facility]; Protocol Last Admin: 07/23/22 10:40 Dose: 12.5 mg Documented By: JURGEN Albuterol Sulfate 2.5 mg/ (Ipratropium [place] 0.5 mg) 0 mg INHALE RQ4H WHILE AWAKE [facility] Last Admin: 07/23/22 12:06 Dose: 2.5 each Documented By: MARGARITA Enoxaparin Sodium (Enoxaparin Sodium 40 Mg/0.4 Ml Syringe) 40 mg SUBCUT Q24H [facility] Last Admin: 07/22/22 23:09 Dose: 40 mg Documented By: WESLEY Folic Acid (Folic Acid 1 Mg Tablet) 1 mg PO DAILY [facility] Last Admin: 07/23/22 10:41 Dose: 1 mg Documented By: JURGEN Furosemide (Furosemide 40 Mg Tablet) 40 mg PO DAILY [facility]; Protocol Last Admin: 07/23/22 10:41 Dose: 40 mg Documented By: JURGEN Glucose (Glucose Gel 15 Gm Gel..Gram.) 15 gm PO Q15M PRN; Protocol PRN Reason: per Hypoglycemia Standing Ord. Dextrose (D10) 250 mls @ 750 mls/hr IV Q15M PRN; Protocol PRN Reason: per Hypoglycemia Standing Ord. Insulin Human Lispro (Insulin Lispro 100 Unit/Ml 3 Ml Vial) 0 unit SUBCUT QIDACHS [facility]; Protocol Last Admin: 07/23/22 13:06 Dose: Not Given Documented By: LOLY Non-Admin Reason: No Insulin Coverage Isosorbide Mononitrate (Isosorbide Mononitrate 30 Mg Tab.Er.24h) 30 mg PO DAILY [facility]; Protocol Last Admin: 07/23/22 10:41 Dose: 30 mg Documented By: JURGEN Methylprednisolone Sodium Succinate (Methylprednisolone Sod Succ 125 Mg/2 Ml Vial) 60 mg IVPUSH Q12H [facility] Last Admin: 07/23/22 07:42 Dose: 60 mg Documented By: YAMILETH Montelukast Sodium (Montelukast Sodium 10 Mg Tablet) 10 mg PO BEDTIME [facility] Quetiapine Fumarate (Quetiapine Fumarate 50 Mg Tablet) 50 mg PO BID [facility] Last Admin: 07/23/22 10:42 Dose: 50 mg Documented By: JURGEN Sertraline HCl (Sertraline Hcl 100 Mg Tablet) 200 mg PO DAILY [facility] Last Admin: 07/23/22 10:40 Dose: 200 mg Documented By: JURGEN Sodium Chloride (0.9 % Sodium Chloride Flush 3 Ml Syringe) 3 ml IVFLUSH QSHIFT [facility] Last Admin: 07/23/22 07:43 Dose: 3 ml Documented By: YAMILETH Tiotropium [place] (Tiotropium [place] 18 Mcg Cap.W.Dev) 1 puff INHALE RDAILY [facility] Last Admin: 07/23/22 07:55 Dose: Not Given Documented By: MARGARITA Non-Admin Reason: not avail/pharm contacted Trazodone HCl (Trazodone Hcl 50 Mg Tablet) 50 mg PO BEDTIME PRN PRN Reason: Sleep Labs 07/22/22 20:44 07/22/22 20:44 Labs: Laboratory Results - last 24 hr 03/21/23 03/21/23 03/21/23 20:44 20:44 20:44 MCV 82.3 MCH 25.7 L MCHC 31.2 RDW 14.8 Plt Count 177 MPV 10.9 Immature Gran % (Auto) 0.2 Neut % (Auto) 70.9 Lymph % (Auto) 23.1 [place] % (Auto) 4.7 Eos % (Auto) 0.9 Baso % (Auto) 0.2 Lymph # (Auto) 1.9 [place] # (Auto) 0.4 Eos # (Auto) 0.1 Baso # (Auto) 0.0 Abs Immat Gran (auto) 0.02 Absolute Neuts (auto) 5.8 Absolute Nucleated RBC 0.000 Nucleated RBC % (auto) 0.0 VBG pH VBG pCO2 VBG pO2 VBG HCO3 VBG O2 Saturation VBG Base Excess Anion Gap 15 Estim Creat Clear Calc 59.3 Estimated GFR > 60 POC Glucose Random Glucose 100 Calcium 8.8 Magnesium 2.0 Total Bilirubin 0.4 AST 29 ALT 15 Alkaline Phosphatase 135 H Troponin I High Sens B-Natriuretic Peptide 630 H Total Protein 6.9 Albumin 3.7 Influenza Type A (PCR) Influenza Type B (PCR) RSV RNA Qual (PCR) SARS-CoV-2 RNA (RT-PCR) 07/22/22 07/22/22 07/23/22 20:44 20:44 07:09 MCV MCH MCHC RDW Plt Count MPV Immature Gran % (Auto) Neut % (Auto) Lymph % (Auto) [place] % (Auto) Eos % (Auto) Baso % (Auto) Lymph # (Auto) [place] # (Auto) Eos # (Auto) Baso # (Auto) Abs Immat Gran (auto) Absolute Neuts (auto) Absolute Nucleated RBC Nucleated RBC % (auto) VBG pH VBG pCO2 VBG pO2 VBG HCO3 VBG O2 Saturation VBG Base Excess Anion Gap Estim Creat Clear Calc Estimated GFR POC Glucose 190 H Random Glucose Calcium Magnesium Total Bilirubin AST ALT Alkaline Phosphatase Troponin I High Sens 46.1 H D B-Natriuretic Peptide Total Protein Albumin Influenza Type A (PCR) NEGATIVE Influenza Type B (PCR) NEGATIVE RSV RNA Qual (PCR) NEGATIVE SARS-CoV-2 RNA (RT-PCR) NEGATIVE 07/23/22 07/23/22 12:50 14:02 MCV MCH MCHC RDW Plt Count MPV Immature Gran % (Auto) Neut % (Auto) Lymph % (Auto) [place] % (Auto) Eos % (Auto) Baso % (Auto) Lymph # (Auto) [place] # (Auto) Eos # (Auto) Baso # (Auto) Abs Immat Gran (auto) Absolute Neuts (auto) Absolute Nucleated RBC Nucleated RBC % (auto) VBG pH 7.45 H VBG pCO2 38 VBG pO2 43 VBG HCO3 26 VBG O2 Saturation 71.0 VBG Base Excess 2.8 Anion Gap Estim Creat Clear Calc Estimated GFR POC Glucose 145 H Random Glucose Calcium Magnesium Total Bilirubin AST ALT Alkaline Phosphatase Troponin I High Sens B-Natriuretic Peptide Total Protein Albumin Influenza Type A (PCR) Influenza Type B (PCR) RSV RNA Qual (PCR) SARS-CoV-2 RNA (RT-PCR) Assessment and Plan (1) Severe chronic obstructive pulmonary disease: Status: Acute Plan 61-year-old female with pertinent history of bmj-ypfaile-nzgdgpooz diabetes mellitus, essential hypertension, congestive heart failure with reduced ejection fraction, mixed hyperlipidemia, KELLIE noncompliant with CPAP, pulmonary hypertension, mood disorder, chronic hypoxemic respiratory failure due to COPD with baseline 5 L oxygen to be observed for COPD exacerbation chronic hypoxemic respiratory failure and Acute COPD exacerbation -CXR negative. Peak flow obtained- predicted 400, pre and post treatment 200. -Methylprednisolone 60mg IV BID,Duonebs q4h while awake,albuterol prn,continue 5 L supplemental O2, baseline sats improving to 90 range on 4-5 liters she uses bipap at home as per patient-noncomplaiant, strongly advised to be compliant with BiPAP. last night use of bipap due to ch lung dis . HFrEF- no acute exacerbation -CXR negative, BNP baseline -Continue po diuretics emv-shqwtoo-ncnxmmcpb type 2 diabetes -POC glucose, diabetic diet -Humalog on sliding scale KELLIE-noncompliant with CPAP hypertension-continue home antihypertensives Mood disorder-continue home meds Cigarette smoker -Assures me she does not smoke while wearing oxygen -Smoking cessation counseling provided -declines nrt DVT prophylaxis- lovenox DNR/DNI inaptient need: copd excerebation-needs nebs, steroids, respiratory status is not optimal yet. Time Spent With Patient Time: Total time managing care of this patient today ____ minutes. Quality Stroke Does the patient have a stroke diagnosis?: No VTE Prior VTE?: No VTE Risk Level:: Medical - moderate - high VTE Device Contraindication: Treatment Not Indicated VTE Drug Contraindication: N/A - Med Ordered
[2022-07-23] MEDS: Loratadine 10 MG TABLET PO (16:15)
[2022-07-23 16:33] LABS: Glucose, Whole Blood 161 mg/dL (60-115)
[2022-07-23] MEDS: traMADoL HCL 50 MG TABLET PO (18:17)
[2022-07-23] MEDS: Acetaminophen 325 MG TABLET 650 MG PO (18:17)
[2022-07-23 20:28] LABS: Glucose, Whole Blood 110 mg/dL (60-115)
[2022-07-23] MEDS: Montelukast Sodium 10 MG TABLET PO (20:53)
[2022-07-23] MEDS: Enoxaparin Sodium 40 MG/0.4 ML SYRINGE SUBCUT (20:53)
[2022-07-24] VITALS (8 sets, daily range): BP systolic 142–164; BP diastolic 75–100; PULSE 74–91; RESP 16–20; TEMP 36–36.4; O2SAT 90–98
[2022-07-24 07:26] LABS: Glucose, Whole Blood 128 mg/dL (60-115)
[2022-07-24] MEDS: Isosorbide Mononitrate 30 MG TAB.ER.24H PO (08:01)
[2022-07-24] MEDS: Folic Acid 1 MG TABLET PO (08:01)
[2022-07-24] MEDS: QUEtiapine Fumarate 50 MG TABLET PO ×2 (08:02→21:09)
[2022-07-24] MEDS: Furosemide 40 MG TABLET PO (08:02)
[2022-07-24] MEDS: Loratadine 10 MG TABLET PO (08:02)
[2022-07-24] MEDS: methylPREDNISolone Sod Succ 125 MG/2 ML VIAL 60 MG IVPUSH ×2 (08:02→21:09)
[2022-07-24] MEDS: Sertraline HCL 100 MG TABLET 200 MG PO (08:02)
[2022-07-24] MEDS: carvediloL 12.5 MG TABLET PO ×2 (08:02→21:08)
[2022-07-24] MEDS: 0.9 % Sodium Chloride Flush 3 ML SYRINGE IVFLUSH ×3 (08:03→21:06)
--- NOTE | 2022-07-24 09:58 | P.CONPL_ITS ---
History of Present Illness History of Present Illness Consult date: 07/24/22 Chief complaint: Asthma/ Copd Excerbation Narrative: This is an inpatient pulmonary consultation. The patient is a 61-year-old female with pertinent history of diabetes mellitus, essential hypertension, congestive heart failure with reduced ejection fraction, mixed hyperlipidemia, KELLIE noncompliant with CPAP, pulmonary hypertension, mood disorder, chronic hypoxemic respiratory failure due to COPD with baseline 5 L oxygen who presents to the emergency department for evaluation of dyspnea.? The patient states for the last 2-3 days she has been experiencing worsening shortness of breath both at rest and with exertion.? On arrival, no acute hypoxia, hypertensive to 171/108, initial mild tachypnea to 22. Hematology studies baseline. Renal function baseline, electrolytes normal. Trop 46.1, BNP 630 consistent with baseline. CXR negative, except for bibasilar atelectasis. Negative for COVID-19, influenza, an d rsv. Given albuterol and dexamethasone in ED. Review of Systems Review of Systems: Yes all other systems are reviewed and are negative Constitutional: Constitutional: Denies body ache(s), Denies chills and Denies fever(s) Eyes: Eyes: Reports no additional eye complaints ENT: Reports system reviewed and no additional complaints, except as documented Cardiovascular: Cardiovascular: Denies chest pain, Denies irregular heart r hythm, Denies leg edema, Reports dyspnea and Reports dyspnea on exertion Respiratory: Respiratory: Reports dyspnea and Reports dyspnea on exertion Gastrointestinal: Gastrointestinal: Reports no additional gastrointestinal complaints Musculoskeletal: Musculoskeletal: Reports back pain and Reports myalgias Integumentary/Breasts: Skin/Breast: Reports system reviewed and no additional complaints, except as docu Neurologic: Reports system reviewed and no additional complaints, except as documented Psychiatric: Psychiatric: Reports no additional psychiatric complaints [facility] Past Medical History Medical History Anxiety Atelectasis, right Chronic respiratory failure Depression Diabetes Essential hypertension HFrEF (heart failure with reduced ejection fraction) HLD (hyperlipidemia) HTN (hypertension) Hypertensive emergency Non-rheumatic mitral regurgitation Nonischemic cardiomyopathy KELLIE (obstructive sleep apnea) Osteoporosis Pulmonary hypertension Respiratory failure with hypoxia and hypercapnia Severe chronic obstructive pulmonary disease Supraventricular tachycardia Tobacco abuse Family History Family History Father No problems noted. Mother Liver cancer Hypertension Surgical History Surgical History Bilateral ankle fractures History of total abdominal hysterectomy Social History Social History Household Members: None Household Members Other:: 1 Housing: Apartment Do you presently have visiting nurse or other home services: No Unable to assess alcohol history related to: Unable to respond Alcohol intake: never Patient Tobacco Use Status: Never used Tobacco Tobacco use type: Cigarette Cigarettes Per Day: 4 Years Smoked: 50 +/- e-Cigarette/Vaping Use: Never Used Second Hand Smoke Exposure: No Advance Directives Date on File: 04/30/20 service: No Current occupational status: disabled Cognitive needs: Yes Hearing needs: No Vision needs: No Meds Allergies Allergy/AdvReac Type Severity Reaction Status Date / Time nicotine [Nicotine] Allergy Mild ITCHING Verified 05/19/22 09:50 WITH THE PATCHES topiramate Allergy Mild inadequealte Verified 05/19/22 09:50 response Active Medications: Current Medications Acetaminophen (Acetaminophen 325 Mg Tablet) 650 mg PO Q6H PRN PRN Reason: Pain, Mild (Pain Scale 1-3) Last Admin: 07/23/22 18:17 Dose: 650 mg Albuterol Sulfate (Albuterol Sulfate (0.083%) 2.5 Mg/3 Ml Vial.Neb) 2.5 mg INHALE Q2H PRN PRN Reason: Shortness of Breath/Wheezing Carvedilol (Carvedilol 12.5 Mg Tablet) 12.5 mg PO BID [facility]; Protocol Last Admin: 07/24/22 08:02 Dose: 12.5 mg Albuterol Sulfate 2.5 mg/ (Ipratropium [place] 0.5 mg) 0 mg INHALE RQ4H WHILE AWAKE [facility] Last Admin: 07/24/22 07:53 Dose: 1 each Enoxaparin Sodium (Enoxaparin Sodium 40 Mg/0.4 Ml Syringe) 40 mg SUBCUT Q24H [facility] Last Admin: 07/23/22 20:53 Dose: 40 mg Folic Acid (Folic Acid 1 Mg Tablet) 1 mg PO DAILY [facility] Last Admin: 07/24/22 08:01 Dose: 1 mg Furosemide (Furosemide 40 Mg Tablet) 40 mg PO DAILY [facility]; Protocol Last Admin: 07/24/22 08:02 Dose: 40 mg Glucose (Glucose Gel 15 Gm Gel..Gram.) 15 gm PO Q15M PRN; Protocol PRN Reason: per Hypoglycemia Standing Ord. Dextrose (D10) 250 mls @ 750 mls/hr IV Q15M PRN; Protocol PRN Reason: per Hypoglycemia Standing Ord. Insulin Human Lispro (Insulin Lispro 100 Unit/Ml 3 Ml Vial) 0 unit SUBCUT QIDACHS [facility]; Protocol Last Admin: 07/24/22 08:04 Dose: Not Given Isosorbide Mononitrate (Isosorbide Mononitrate 30 Mg Tab.Er.24h) 30 mg PO DAILY [facility]; Protocol Last Admin: 07/24/22 08:01 Dose: 30 mg Loratadine (Loratadine 10 Mg Tablet) 10 mg PO DAILY [facility] Last Admin: 07/24/22 08:02 Dose: 10 mg Methylprednisolone Sodium Succinate (Methylprednisolone Sod Succ 125 Mg/2 Ml Vial) 60 mg IVPUSH Q12H [facility] Last Admin: 07/24/22 08:02 Dose: 60 mg Montelukast Sodium (Montelukast Sodium 10 Mg Tablet) 10 mg PO BEDTIME [facility] Last Admin: 07/23/22 20:53 Dose: 10 mg Quetiapine Fumarate (Quetiapine Fumarate 50 Mg Tablet) 50 mg PO BID [facility] Last Admin: 07/24/22 08:02 Dose: 50 mg Sertraline HCl (Sertraline Hcl 100 Mg Tablet) 200 mg PO DAILY [facility] Last Admin: 07/24/22 08:02 Dose: 200 mg Sodium Chloride (0.9 % Sodium Chloride Flush 3 Ml Syringe) 3 ml IVFLUSH QSHIFT [facility] Last Admin: 07/24/22 08:03 Dose: 3 ml Tiotropium [place] (Tiotropium [place] 18 Mcg Cap.W.Dev) 1 puff INHALE RDAILY [facility] Last Admin: 07/24/22 07:57 Dose: Not Given Trazodone HCl (Trazodone Hcl 50 Mg Tablet) 50 mg PO BEDTIME PRN PRN Reason: Sleep Home Medications Medication Instructions Recorded Confirmed Last Taken Type trazodone 50 mg tablet 50 mg PO BEDTIME PRN Sleep 03/08/20 07/22/22 03/29/21 History carvedilol 12.5 mg tablet 1 tab PO BID 07/22/22 07/22/22 07/22/22 History Physical Exam Vital Signs: Vital Signs: Last Vital Signs Temp 97.3 F 07/24/22 07:24 Pulse 86 07/24/22 07:55 Resp 18 07/24/22 07:55 BP 146/92 H 07/24/22 07:24 Pulse Ox 93 07/24/22 07:24 O2 Del Method Nasal Cannula 07/24/22 07:24 O2 Flow Rate 4.5 07/24/22 07:24 Oxygen Flow Rate 7 07/22/22 18:29 BMI result Body Mass Index 33.6 Appearance: Alert.? Oriented X3.?sob cvs: rrr, [id number] , no murmur res:air enrty slightly improving but still diminshed abd: no rebound or guarding ,nt, bs present. ext pulses present , no cyanosis. neuro: axo3 , nonfocal. Results Laboratory Findings 07/22/22 20:44 07/22/22 20:44 Abnormal lab findings: Abnormal Labs 07/22/22 07/22/22 07/22/22 20:44 20:44 20:44 RBC 3.85 L Hgb 9.9 L Hct 31.7 L MCH 25.7 L VBG pH POC Glucose Alkaline Phosphatase 135 H Troponin I High Sens B-Natriuretic Peptide 630 H 07/22/22 07/23/22 07/23/22 20:44 07:09 12:50 RBC Hgb Hct MCH VBG pH POC Glucose 190 H 145 H Alkaline Phosphatase Troponin I High Sens 46.1 H D B-Natriuretic Peptide 07/23/22 07/23/22 07/24/22 14:02 16:23 07:22 RBC Hgb Hct MCH VBG pH 7.45 H POC Glucose 161 H 128 H Alkaline Phosphatase Troponin I High Sens B-Natriuretic Peptide Assessment and Plan (1) Acute and chronic respiratory failure with hypoxia: Status: Acute (2) COPD (chronic obstructive pulmonary disease): Qualifiers: COPD type: emphysema Emphysema type: centrilobular Qualified Code(s): J43.2 - Centrilobular emphysema Status: Inactive (3) CHF (congestive heart failure): Qualifiers: Heart failure type: systolic Heart failure chronicity: acute on chronic Qualified Code(s): I50.23 - Acute on chronic systolic (congestive) heart failure Status: Resolved Plan Has acute on chronic respiratory failure, should be an inpt not obs Continue oxygen 4-5 L to keep pox>90% Increase diuresis today start Breo continue Yoaniva Will call [employer] so they can repair her home concentrator Hopefully d/c tomorrow Time Spent With Patient Time: Total time managing care of this patient today ____ minutes. Procedures Date of Service Date of Service: 07/24/22
[2022-07-24 11:42] LABS: Glucose, Whole Blood 180 mg/dL (60-115)
[2022-07-24] MEDS: Insulin Lispro 100 UNIT/ML 3 ML VIAL SUBCUT (12:34)
[2022-07-24] MEDS: Furosemide 20 MG/2 ML VIAL IVPUSH (12:35)
--- NOTE | 2022-07-24 15:06 | P.PNIM_ITS ---
Subjective Subjective Date of Service: 07/24/22 Interval History: Acute hypoxemic respiratory failure secondary to COPD exacerbation? Review of Systems says sob similar to yesterday but still has intermittent short of breath, has dry cough, no fever no chills Physical Exam Vital Signs: Vital Signs: Last Vital Signs Temp 97.3 F 07/24/22 07:24 Pulse 87 07/24/22 14:39 Resp 18 07/24/22 14:39 BP 146/92 H 07/24/22 07:24 Pulse Ox 93 07/24/22 07:24 O2 Del Method Nasal Cannula 07/24/22 07:24 O2 Flow Rate 4.5 07/24/22 07:24 Oxygen Flow Rate 7 07/22/22 18:29 BMI result Body Mass Index 33.6 ?Appearance: Alert.? Oriented X3.?sob cvs: rrr, [id number] , no murmur res:air enrty slightly improving but still diminshed abd: no rebound or guarding ,nt, bs present. ext pulses present , no cyanosis. neuro: axo3 , nonfocal. Objective Data Active Medications Acetaminophen (Acetaminophen 325 Mg Tablet) 650 mg PO Q6H PRN PRN Reason: Pain, Mild (Pain Scale 1-3) Last Admin: 07/23/22 18:17 Dose: 650 mg Documented By: OMAR Albuterol Sulfate (Albuterol Sulfate (0.083%) 2.5 Mg/3 Ml Vial.Neb) 2.5 mg INHALE Q2H PRN PRN Reason: Shortness of Breath/Wheezing Carvedilol (Carvedilol 12.5 Mg Tablet) 12.5 mg PO BID [facility]; Protocol Last Admin: 07/24/22 08:02 Dose: 12.5 mg Documented By: OMAR Albuterol Sulfate 2.5 mg/ (Ipratropium [place] 0.5 mg) 0 mg INHALE RQ4H WHILE AWAKE [facility] Last Admin: 07/24/22 14:39 Dose: 1 each Documented By: MARCIAL Enoxaparin Sodium (Enoxaparin Sodium 40 Mg/0.4 Ml Syringe) 40 mg SUBCUT Q24H [facility] Last Admin: 07/23/22 20:53 Dose: 40 mg Documented By: HAM Fluticasone/Vilanterol (Fluticasone/Vilanterol 100/25 Blst.W.Dev) 1 puff INHALE RDAILY [facility] Folic Acid (Folic Acid 1 Mg Tablet) 1 mg PO DAILY [facility] Last Admin: 07/24/22 08:01 Dose: 1 mg Documented By: OMAR Furosemide (Furosemide 40 Mg Tablet) 40 mg PO DAILY [facility]; Protocol Last Admin: 07/24/22 08:02 Dose: 40 mg Documented By: OMAR Glucose (Glucose Gel 15 Gm Gel..Gram.) 15 gm PO Q15M PRN; Protocol PRN Reason: per Hypoglycemia Standing Ord. Dextrose (D10) 250 mls @ 750 mls/hr IV Q15M PRN; Protocol PRN Reason: per Hypoglycemia Standing Ord. Insulin Human Lispro (Insulin Lispro 100 Unit/Ml 3 Ml Vial) 0 unit SUBCUT QIDACHS [facility]; Protocol Last Admin: 07/24/22 12:34 Dose: 2 unit Documented By: OMAR Isosorbide Mononitrate (Isosorbide Mononitrate 30 Mg Tab.Er.24h) 30 mg PO DAILY [facility]; Protocol Last Admin: 07/24/22 08:01 Dose: 30 mg Documented By: OMAR Loratadine (Loratadine 10 Mg Tablet) 10 mg PO DAILY [facility] Last Admin: 07/24/22 08:02 Dose: 10 mg Documented By: OMAR Methylprednisolone Sodium Succinate (Methylprednisolone Sod Succ 125 Mg/2 Ml Vial) 60 mg IVPUSH Q12H [facility] Last Admin: 07/24/22 08:02 Dose: 60 mg Documented By: OMAR Montelukast Sodium (Montelukast Sodium 10 Mg Tablet) 10 mg PO BEDTIME [facility] Last Admin: 07/23/22 20:53 Dose: 10 mg Documented By: HAM Quetiapine Fumarate (Quetiapine Fumarate 50 Mg Tablet) 50 mg PO BID [facility] Last Admin: 07/24/22 08:02 Dose: 50 mg Documented By: OMAR Sertraline HCl (Sertraline Hcl 100 Mg Tablet) 200 mg PO DAILY [facility] Last Admin: 07/24/22 08:02 Dose: 200 mg Documented By: OMAR Sodium Chloride (0.9 % Sodium Chloride Flush 3 Ml Syringe) 3 ml IVFLUSH QSHIFT [facility] Last Admin: 07/24/22 08:03 Dose: 3 ml Documented By: OMAR Tiotropium [place] (Tiotropium [place] 18 Mcg Cap.W.Dev) 1 puff INHALE RDAILY [facility] Last Admin: 07/24/22 07:57 Dose: Not Given Documented By: IAN Non-Admin Reason: pharmacy contacted Trazodone HCl (Trazodone Hcl 50 Mg Tablet) 50 mg PO BEDTIME PRN PRN Reason: Sleep Labs 07/22/22 20:44 07/22/22 20:44 Labs: Laboratory Results - last 24 hr 07/23/22 07/23/22 07/24/22 16:23 20:24 07:22 POC Glucose 161 H 110 128 H 07/24/22 11:33 POC Glucose 180 H Assessment and Plan (1) Severe chronic obstructive pulmonary disease: Status: Acute Plan 61-year-old female with pertinent history of qgv-evmzsgj-xoiuetjze diabetes mellitus, essential hypertension, congestive heart failure with reduced ejection fraction, mixed hyperlipidemia, KELLIE noncompliant with CPAP, pulmonary hypertension, mood disorder, chronic hypoxemic respiratory failure due to COPD with baseline 5 L oxygen to be observed for COPD exacerbation chronic hypoxemic respiratory failure and Acute COPD exacerbation -CXR negative. Peak flow obtained- predicted 400, pre and post treatment 200. -Methylprednisolone 60mg IV BID,Duonebs q4h while awake,albuterol prn,continue 5 L supplemental O2, baseline sats improving to 90 range on 4-5 liters she uses bipap at home as per patient-noncomplaiant, strongly advised to be compliant with BiPAP. last night use of bipap due to ch lung dis . HFrEF- no acute exacerbation -CXR negative, BNP baseline -Continue po diuretics,added small dose iv lasix also for today. lpr-pvovlzm-hmvossglq type 2 diabetes -POC glucose, diabetic diet -Humalog on sliding scale KELLIE-noncompliant with CPAP hypertension-continue home antihypertensives Mood disorder-continue home meds Cigarette smoker -Assures me she does not smoke while wearing oxygen -Smoking cessation counseling provided -declines nrt DVT prophylaxis- lovenox DNR/DNI inaptient need: copd excerebation-needs nebs, steroids, respiratory status is not optimal yet. Time Spent With Patient Time: Total time managing care of this patient today ____ minutes. Quality Stroke Does the patient have a stroke diagnosis?: No VTE Prior VTE?: No VTE Risk Level:: Medical - moderate - high VTE Device Contraindication: Treatment Not Indicated VTE Drug Contraindication: N/A - Med Ordered
--- NOTE | 2022-07-24 16:15 | MHC.CM.PN ---
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
[2022-07-24 16:30] LABS: Glucose, Whole Blood 147 mg/dL (60-115)
[2022-07-24 20:35] LABS: Glucose, Whole Blood 145 mg/dL (60-115)
[2022-07-24] MEDS: Enoxaparin Sodium 40 MG/0.4 ML SYRINGE SUBCUT (21:08)
[2022-07-24] MEDS: Montelukast Sodium 10 MG TABLET PO (21:09)
[2022-07-25] VITALS (9 sets, daily range): BP systolic 138–185; BP diastolic 80–107; PULSE 73–82; RESP 16–22; TEMP 35.7–36.7; O2SAT 92–98
[2022-07-25 07:16] LABS: Glucose, Whole Blood 151 mg/dL (60-115)
[2022-07-25] MEDS: carvediloL 12.5 MG TABLET PO (07:37)
[2022-07-25] MEDS: Fluticasone/Vilanterol 100/25 BLST.W.DEV 1 PUFF INHALE (07:53)
[2022-07-25] MEDS: Insulin Lispro 100 UNIT/ML 3 ML VIAL SUBCUT (08:10)
[2022-07-25] MEDS: 0.9 % Sodium Chloride Flush 3 ML SYRINGE IVFLUSH (08:17)
[2022-07-25] MEDS: Sertraline HCL 100 MG TABLET 200 MG PO (10:41)
[2022-07-25] MEDS: predniSONE 20 MG TABLET 40 MG PO (10:41)
[2022-07-25] MEDS: Isosorbide Mononitrate 30 MG TAB.ER.24H PO (10:41)
[2022-07-25] MEDS: Folic Acid 1 MG TABLET PO (10:42)
[2022-07-25] MEDS: Furosemide 40 MG TABLET PO (10:42)
[2022-07-25] MEDS: Loratadine 10 MG TABLET PO (10:42)
[2022-07-25] MEDS: QUEtiapine Fumarate 50 MG TABLET PO (10:42)
[2022-07-25 11:47] LABS: Glucose, Whole Blood 126 mg/dL (60-115)
--- NOTE | 2022-07-25 12:17 | P.DS_ITS ---
DS: Providers Provider Date of Service: 07/25/22 Date of admission: 07/24/22 14:33 Date of discharge: 07/25/22 Primary care physician: Analisa Chavez MD Consults: 07/23/22 11:29 Consult to Pulmonology Routine Consulting Provider: [facility] Reason for consultation: acute hypoxemic respiratory failure sec to copd Has provider been notified: No DS: Diagnosis Discharge Diagnosis (1) Severe chronic obstructive pulmonary disease: Status: Acute DS: Summary Hospital Course Hospital Course: 61-year-old female with pertinent history of knr-hxrnorw-rmsgfvoot diabetes mellitus, essential hypertension, congestive heart failure with reduced ejection fraction, mixed hyperlipidemia, KELLIE noncompliant with CPAP, pulmonary hypertension, mood disorder, chronic hypoxemic respiratory failure due to COPD with baseline 5 L oxygen who presents to the emergency department for evaluation of dyspnea.? The patient states for the last 2-3 days she has been experiencing worsening shortness of breath both at rest and with exertion.? She denies any orthopnea.? She has not been requiring increased use of her nebulizer or increased oxygen.? Denies any sick contacts.? No fevers, chills, sore throat, congestion, cough, abd pain, n/v, palpitations, lightheadedness, or chest pain. On arrival, no acute hypoxia, hypertensive to 171/108, initial mild tachypnea to 22. Hematology studies baseline. Renal function baseline, electrolytes normal. Trop 46.1, BNP 630 consistent with baseline. CXR negative, except for bibasilar atelectasis. Negative for COVID-19, influenza, and rsv. Given albuterol and dexamethasone in ED. Hospital course: Patient was admitted for shortness of breath possible secondary to COPD exacerbation: Started on steroids, nebs, oxygen support seems to be improved significantly: Seen by Pulmonary recommended to add Breo. Patient seems to be improved significantly with above management. Going home with p.o. steroid/breo. In addition patient was advised to quit smoking as well as use of a BiPAP. Further management outpatient with PCP and Pulmonary. plan: Complete p.o. steroids, continue Breo. Further management outpatient with PCP and Pulmonary. Time Spent with Patient Time attestation: Total time managing care of this patient today ____ minutes. Discharge coordination time: Greater than 30 minutes Quality: Safe Use of Opioids Does Pt have an Active Cancer Diagnosis on the Problem List?: No Quality: Stroke Does the patient have a stroke diagnosis?: No Physical Exam Vital Signs: Vital Signs: Last Vital Signs Temp 96.2 F L 07/25/22 11:55 Pulse 77 07/25/22 11:55 Resp 22 H 07/25/22 11:55 BP 163/102 H 07/25/22 11:55 Pulse Ox 92 07/25/22 11:55 O2 Del Method Nasal Cannula 07/25/22 11:55 O2 Flow Rate 5 07/25/22 11:55 Oxygen Flow Rate 7 07/22/22 18:29 BMI result Body Mass Index 33.6 Appearance: Alert.? Oriented X3.?sob cvs: rrr, [id number] , no murmur res:air entry fair , no rales or wheezing abd: no rebound or guarding ,nt, bs present. ext pulses present , no cyanosis. neuro: axo3 , nonfocal. DS: Data Data Completed and Pending Completed studies during hospitalization [Text1]: Procedures Assistance with Respiratory Ventilation, Less than 24 Consecutive Hours, Continuous Positive Airway Pressure (04/28/22) Labs on day of discharge: Laboratory Results - last 24 hr 07/24/22 07/24/22 07/25/22 16:18 20:31 07:12 POC Glucose 147 H 145 H 151 H 07/25/22 11:44 POC Glucose 126 H Imaging Chest x-ray: Radiologist's impression: ITS Impressions Chest X-Ray 07/22/22 19:26 IMPRESSION: No acute intrathoracic disease. Bibasilar atelectasis. Discharge Plan Discharge Anticipated Discharge Date/Time: 07/25/22 11:56 Patient Disposition: Home, Self-Care Discharge Diagnosis: copd execerebation Referrals: Analisa Carr MD [Primary Care Provider] - 1 Week Discharge Medications: New fluticasone furoate-vilanterol [Breo Ellipta] 100-25 mcg/dose Blister With Device 1 ea inhalation RDAILY Qty: 1 0RF prednisone 10 mg tablet 10 mg PO DIRECTED Qty: 30 0RF Rx Instructions: see taper instructions Continued sertraline 100 mg tablet 200 mg PO DAILY 90 Days Qty: 180 1RF quetiapine 50 mg tablet 50 mg PO BID 90 Days Qty: 180 1RF isosorbide mononitrate 30 mg tablet extended release 24 hr 30 mg PO DAILY 90 Days Qty: 90 3RF Protocol: Hold for SBP< HOLD for SBP < : 90 montelukast 10 mg tablet 10 mg PO BEDTIME Qty: 30 11RF Spiriva with HandiHaler 18 mcg capsule, w/inhalation device 1 cap inhalation DAILY Qty: 30 5RF furosemide 40 mg tablet 40 mg PO DAILY Qty: 30 3RF trazodone 50 mg tablet 50 mg PO BEDTIME PRN (Reason: Sleep) folic acid 1 mg Tablet 1 mg PO DAILY Qty: 90 4RF carvedilol 12.5 mg tablet 1 tab PO BID Discharge Orders: Discharge Order (Routine); Ordered 07/25/22 Ordered By: Hamilton Weber Diet: Advance to usual diet Activity on Discharge: As tolerated Stand Alone Forms: Patient Portal Discharge page Care Plan Goals: Patient was admitted for shortness of breath possible secondary to COPD exacerbation: Started on steroids, nebs, oxygen support seems to be improved significantly: Seen by Pulmonary recommended to add Breo. Patient seems to be improved significantly with above management. Going home with p.o. steroid/breo. In addition patient was advised to quit smoking as well as use of a BiPAP. Further management outpatient with PCP and Pulmonary. Health Concerns: As above. Plan of Treatment: As above. Assessment: As above.
--- NOTE | 2022-07-25 13:36 | MHC.CM.PN ---
PT WILL DC HOME TODAY WITH [employer] OF [employer] BLS TRANSPORT ARRANGED [facility]IA [place] FOR 1400 HOURS
== END 2022-07-25 17:48 | disposition home or self-care (01) | DRG 140 ==
LOC: HO.ED 18:54 → HO.EDOVER 22:01 → HO.S3 07-23 14:15
PROVIDERS: Internal Medicine; Admitting Provider Physician Assistant; Emergency Provider Internal Medicine; PCP Internal Medicine; Visit Provider Internal Medicine
DX: J44.1 Chronic obstructive pulmonary disease with (acute) exacerbation (principal); J96.21 Acute and chronic respiratory failure with hypoxia; I27.20 Pulmonary hypertension, unspecified; I50.22 Chronic systolic (congestive) heart failure; I11.0 Hypertensive heart disease with heart failure; G47.33 Obstructive sleep apnea (adult) (pediatric); F17.210 Nicotine dependence, cigarettes, uncomplicated; Z66 Do not resuscitate; Z71.6 Tobacco abuse counseling; E78.2 Mixed hyperlipidemia; E66.9 Obesity, unspecified; Z68.33 Body mass index [BMI] 33.0-33.9, adult; F32.9 Major depressive disorder, single episode, unspecified; Z20.822 Contact with and (suspected) exposure to COVID-19; Z91.199 Patient's noncompliance with other medical treatment and regimen due to unspecified reason; Z99.81 Dependence on supplemental oxygen; Z79.51 Long term (current) use of inhaled steroids; Z79.899 Other long term (current) drug therapy
CPT/HCPCS: 0241U; 36415; 71045; 80053; 82803; 82947; 83735; 83880; 84484; 85025; 93005; 94640; 94660; 99285; J1100; J1650; J1940; J2930; J3475

== ENCOUNTER 2022-08-10 17:49 | Emergency (ER) | payer OTHER, SELFPAY ==
--- NOTE | ~2022-08-10 | XR_ITS ---
EXAMINATION: XR CHEST CLINICAL INFORMATION: Dyspnea. COMPARISON: Chest radiograph 07/22/2022. TECHNIQUE: Frontal view of the chest was obtained. FINDINGS: Stable prominence of the cardiomediastinal silhouette. Slightly increased asymmetric patchy and interstitial opacities in the right lower lung compared to 07/22/2022. Suspect trace amount of right-sided pleural fluid versus pleural thickening. No pneumothorax. Stable subsegmental atelectasis is seen in the left lower lung. No acute osseous abnormalities. XR/XR chest 1V IMPRESSION: Slightly increased patchy and interstitial opacities in the right lower lung when compared to 07/22/2022 which could be related with aspiration aspiration, atypical infection or worsening atelectasis.
[2022-08-10 17:54] VITALS: BP 206/118; PULSE 86; O2SAT 96
[2022-08-10 18:00] VITALS: BP 190/107; PULSE 82; RESP 22; TEMP 36.9; O2SAT 98; BMI 31.3
--- NOTE | 2022-08-10 18:15 | ECG_ITS ---
Test Reason : COPD Blood Pressure : / mmHG Vent. Rate : 066 BPM Atrial Rate : 066 BPM P-R Int : 138 ms QRS Dur : 132 ms QT Int : 500 ms P-R-T Axes : 015 011 -06 degrees QTc Int : 524 ms Normal sinus rhythm Right bundle branch block Abnormal ECG When compared with ECG of 22-JUL-2022 20:58, T wave inversion no longer evident in Anterior leads Referred By: Generic ED Physician Electronically Signed By:KEVIN ODELL MD
--- NOTE | 2022-08-10 18:20 | ED.SOB ---
HPI - SOB/Dyspnea General Chief Complaint: Dyspnea Stated Complaint: SOB,HOME 02 PROB, 02 SAT 83% 5LPM, 94% ON EMS 5LPM Time Seen by Provider: 08/10/22 18:20 Source: patient Mode of arrival: ambulatory Limitations: no limitations History of Present Illness HPI Narrative: Patient with the history of COPD 3-5 L oxygen dependent, diabetes mellitus, hypertension, CHF with reduced ejection fraction, KELLIE noncompliant with CPAP, pulmonary hypertension comes here for increased shortness of breath since yesterday as her oxygen it was not working properly. Denies any cough or fever was saturating 83% at room air improved to 98% on 3 L in the ER as any chest pain or leg swelling Related Data Home Medications Medication Instructions Recorded Confirmed trazodone 50 mg tablet 50 mg PO BEDTIME PRN Sleep 03/08/20 07/22/22 carvedilol 12.5 mg tablet 1 tab PO BID 07/22/22 07/22/22 Previous Rx's Medication Instructions Recorded quetiapine 50 mg tablet 50 mg PO BID 90 days #180 tabs 12/18/20 sertraline 100 mg tablet 200 mg PO DAILY 90 days #180 tabs 12/18/20 isosorbide mononitrate 30 mg 30 mg PO DAILY 90 days #90 tabs 08/15/21 tablet,extended release 24 hr folic acid 1 mg tablet 1 mg PO DAILY #90 tabs 09/01/21 montelukast 10 mg tablet 10 mg PO BEDTIME #30 tabs 11/01/21 tiotropium bromide 18 mcg capsule 1 cap inhalation DAILY #30 ea 06/29/22 with inhalation device (Spiriva with HandiHaler) furosemide 40 mg tablet 40 mg PO DAILY #30 tabs 07/03/22 fluticasone furoate 100 1 ea inhalation RDAILY #1 ea 07/25/22 mcg-vilanterol 25 mcg/dose inhalation powder (Breo Ellipta) prednisone 10 mg tablet 10 mg PO DIRECTED #30 tabs 07/25/22 Allergies Allergy/AdvReac Type Severity Reaction Status Date / Time nicotine [Nicotine] Allergy Mild ITCHING Verified 05/19/22 09:50 WITH THE PATCHES topiramate Allergy Mild inadequealte Verified 05/19/22 09:50 response Review of Systems Review of Systems: Yes all other systems are reviewed and are negative PMFSH Past Medical History Medical History Anxiety Atelectasis, right Chronic respiratory failure Depression Diabetes Essential hypertension HFrEF (heart failure with reduced ejection fraction) HLD (hyperlipidemia) HTN (hypertension) Hypertensive emergency Non-rheumatic mitral regurgitation Nonischemic cardiomyopathy KELLIE (obstructive sleep apnea) Osteoporosis Pulmonary hypertension Respiratory failure with hypoxia and hypercapnia Severe chronic obstructive pulmonary disease Supraventricular tachycardia Tobacco abuse Surgical History Bilateral ankle fractures History of total abdominal hysterectomy Family History Family History Father No problems noted. 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 home services: No Unable to assess alcohol history related to: Unable to respond Alcohol intake: never Patient Tobacco Use Status: Never used Tobacco Tobacco use type: Cigarette Cigarettes Per Day: 4 Years Smoked: 50 +/- Smoked in Last 30 Days: Yes e-Cigarette/Vaping Use: Never Used Second Hand Smoke Exposure: No Use of substances other than those prescribed or required for medical reasons: No Advance Directives: Yes Advance Directives on File: Yes Advance Directives Date on File: 04/30/20 service: No Current occupational status: disabled Cognitive needs: Yes Hearing needs: No Vision needs: No Physical Exam Vital Signs: Vital Signs: Last Vital Signs Temp 98.5 F 08/10/22 18:00 Pulse 72 08/11/22 00:48 Resp 14 08/11/22 00:48 BP 189/102 H 08/11/22 00:48 Pulse Ox 98 08/11/22 00:48 O2 Del Method Nasal Cannula 08/11/22 00:48 O2 Flow Rate 5 08/11/22 00:48 Oxygen Flow Rate 4 08/10/22 22:00 BMI result Body Mass Index 31.3 Appearance: Alert. Oriented X3. No acute distress. Eyes: PERRLA, No Nystagmus ENT: Pharynx normal. Oral Mucosa moist Neck: Normal inspection. Neck supple. CVS: Normal heart rate and rhythm. Pulses normal. Respiratory: Moderate respiratory distress. Decreased lair entry bilateral, no wheezing/rales/rhonchi Abdomen: Soft and nontender. Bowel sounds are present, no mass palpable, no CVA tenderness Skin: Skin warm and dry. Normal skin color. Normal skin turgor. Extremities: No lower extremity edema. No calf tenderness Neuro: Oriented X 3. No motor deficit. No sensory deficit.No cerebellar signs , cranial nerves II-XII intact Medications Administered Discontinued Medications Generic Name Dose Route Start Last Admin Trade Name Norma PRN Reason Stop Dose Admin Albuterol Sulfate 5 mg/ 0 mg 08/10/22 18:21 08/10/22 18:39 Albuterol/Ipratropium 3 ml INHALE 08/10/22 18:22 2.5 each ONCE ONE Administration Sodium Chloride 1,000 mls @ 999 mls/hr 08/10/22 18:21 08/10/22 19:30 Ns IV 08/10/22 19:21 Infused .Q1H1M ONE Infusion Magnesium Sulfate 2 gm in 50 mls @ 100 mls/hr 08/10/22 18:23 08/10/22 19:30 Magnesium Sulfate/H2o IV 08/10/22 18:52 Infused ONCE ONE Infusion Methylprednisolone Sodium Succinate 125 mg 08/10/22 18:20 08/10/22 18:28 Methylprednisolone Sod Succ 125 Mg/2 Ml Vial IVPUSH 08/10/22 18:21 125 mg ONCE ONE Administration Medical Decision Making Medical Decision Making [facility] Narrative: Patient with the oxygen dependent COPD does not have any oxygen machine working at home otherwise vitals are stable. Will get case management involved for oxygen supply tomorrow Lab Data [facility] Lab Attestation statement: I reviewed the patient's lab results. 08/10/22 19:18 08/10/22 19:18 Labs: Lab Results 08/10/22 08/10/22 08/10/22 Range/Units 19:18 19:18 19:18 WBC 6.2 (4.8-10.8) X10*3/uL RBC 3.79 L (4.20-5.50) X10*6/uL Hgb 9.9 L (12.0-16.0) g/dl Hct 32.4 L (37.0-47.0) % MCV 85.5 (80.0-98.0) fL MCH 26.1 L (27.0-33.0) pg MCHC 30.6 L (31.0-35.0) g/dl RDW 14.4 (11.0-16.0) % Plt Count 134 L (160-400) X10*3/uL MPV 10.1 (9.4-12.3) fL Immature Gran % (Auto) 0.3 (0.0-0.4) % Neut % (Auto) 64.3 (45-73) % Lymph % (Auto) 28.6 (20-40) % [place] % (Auto) 5.5 (2-11) % Eos % (Auto) 1.1 (0-4) % Baso % (Auto) 0.2 (0-2) % Lymph # (Auto) 1.8 (1.2-4.9) X10*3/uL [place] # (Auto) 0.3 (0.1-1.2) X10*3/uL Eos # (Auto) 0.1 (0.0-0.4) X10*3/uL Baso # (Auto) 0.0 (0.0-0.2) X10*3/uL Abs Immat Gran (auto) 0.02 (0.00-0.03) X10*3/uL Absolute Neuts (auto) 4.0 (2.0-8.3) x10*3/uL Absolute Nucleated RBC 0.000 (0.0-0.012) X10*3/uL Nucleated RBC % (auto) 0.0 (0.0-0.2) /100WBC VBG pH (7.32-7.43) VBG pCO2 mmHg VBG pO2 mmHg VBG HCO3 (22-26) mmol/L VBG O2 Saturation % VBG Base Excess mmol/L Sodium 144 (135-145) mmol/L Potassium 3.8 (3.3-5.1) mmol/L Chloride 106 (96-108) mmol/L Carbon Dioxide 31 H (22-29) mmol/L Anion Gap 11 L (12-20) BUN 8 L (9-16) mg/dL Creatinine 0.77 (0.5-1.4) mg/dL Estim Creat Clear Calc 65.5 Estimated GFR > 60 Random Glucose 124 H (60-115) mg/dL Calcium 8.4 (8.4-10.2) mg/dL Troponin I High Sens 7.8 D (<3.5-17.0) ng/L 08/10/22 Range/Units 19:21 WBC (4.8-10.8) X10*3/uL RBC (4.20-5.50) X10*6/uL Hgb (12.0-16.0) g/dl Hct (37.0-47.0) % MCV (80.0-98.0) fL MCH (27.0-33.0) pg MCHC (31.0-35.0) g/dl RDW (11.0-16.0) % Plt Count (160-400) X10*3/uL MPV (9.4-12.3) fL Immature Gran % (Auto) (0.0-0.4) % Neut % (Auto) (45-73) % Lymph % (Auto) (20-40) % [place] % (Auto) (2-11) % Eos % (Auto) (0-4) % Baso % (Auto) (0-2) % Lymph # (Auto) (1.2-4.9) X10*3/uL [place] # (Auto) (0.1-1.2) X10*3/uL Eos # (Auto) (0.0-0.4) X10*3/uL Baso # (Auto) (0.0-0.2) X10*3/uL Abs Immat Gran (auto) (0.00-0.03) X10*3/uL Absolute Neuts (auto) (2.0-8.3) x10*3/uL Absolute Nucleated RBC (0.0-0.012) X10*3/uL Nucleated RBC % (auto) (0.0-0.2) /100WBC VBG pH 7.34 (7.32-7.43) VBG pCO2 66 mmHg VBG pO2 36 mmHg VBG HCO3 36 H (22-26) mmol/L VBG O2 Saturation 52.0 % VBG Base Excess 8.6 mmol/L Sodium (135-145) mmol/L Potassium (3.3-5.1) mmol/L Chloride (96-108) mmol/L Carbon Dioxide (22-29) mmol/L Anion Gap (12-20) BUN (9-16) mg/dL Creatinine (0.5-1.4) mg/dL Estim Creat Clear Calc Estimated GFR Random Glucose (60-115) mg/dL Calcium (8.4-10.2) mg/dL Troponin I High Sens (<3.5-17.0) ng/L Independent Interpretation I performed an independent interpretation of an: EKG Interpretation: Normal sinus rhythm RBBB no acute ST wave changes no acute ischemic Discharge Plan Discharge Clinical Impression: Severe chronic obstructive pulmonary disease Patient Disposition: Still a Patient Prescriptions: No Action sertraline 100 mg tablet 200 mg PO DAILY 90 Days Qty: 180 1RF quetiapine 50 mg tablet 50 mg PO BID 90 Days Qty: 180 1RF isosorbide mononitrate 30 mg tablet extended release 24 hr 30 mg PO DAILY 90 Days Qty: 90 3RF Protocol: Hold for SBP< HOLD for SBP < : 90 montelukast 10 mg tablet 10 mg PO BEDTIME Qty: 30 11RF Spiriva with HandiHaler 18 mcg capsule, w/inhalation device 1 cap inhalation DAILY Qty: 30 5RF furosemide 40 mg tablet 40 mg PO DAILY Qty: 30 3RF trazodone 50 mg tablet 50 mg PO BEDTIME PRN (Reason: Sleep) folic acid 1 mg Tablet 1 mg PO DAILY Qty: 90 4RF carvedilol 12.5 mg tablet 1 tab PO BID fluticasone furoate-vilanterol [Breo Ellipta] 100-25 mcg/dose Blister With Device 1 ea inhalation RDAILY Qty: 1 0RF prednisone 10 mg tablet 10 mg PO DIRECTED Qty: 30 0RF Rx Instructions: see taper instructions
[2022-08-10] MEDS: Magnesium Sulfate/H2O 2 GM/50 ML PIGGYBACK IV (18:28)
[2022-08-10] MEDS: methylPREDNISolone Sod Succ 125 MG/2 ML VIAL IVPUSH (18:28)
[2022-08-10] MEDS: 0.9 % Sodium Chloride 1,000 ML 999 ML IV (18:28)
--- NOTE | 2022-08-10 18:45 | PC.NURSE ---
Pt lying semi-fowlers in stretcher, visible increased work of breathing, accessory muscle use, equal chest rise and fall, labored breathing, RR about 28-30per minute. Skin normal for ethnicity, warm, and dry. Lung sounds diminished throughout. No edema noted. Pt complaining of increased difficulty breathing/SOB, since yesterday due to home oxygen tank being out of oxygen since yesterday. Pt hx of COPD. Pt reports that her PCP doc increased her oxygen 5 lpm via nasal cannula lately, but she has been on 3 lpm. Pt spo2 between 96-97% on 3 lpm via nasal cannula.
[2022-08-10 19:23] LABS: MANUAL DIFF FLAG NO
[2022-08-10 19:26] LABS: Basophils Percent Auto 0.2 % (0-2); Eosinophils Absolute Auto 0.1 X10*3/uL (0.0-0.4); Eosinophils Percent Auto 1.1 % (0-4); Hematocrit 32.4 % (37.0-47.0); Hemoglobin 9.9 g/dl (12.0-16.0); Imm Gran Abs Auto 0.02 X10*3/uL (0.00-0.03); Imm Gran Pct Auto 0.3 % (0.0-0.4); Lymphocytes Absolute Auto 1.8 X10*3/uL (1.2-4.9); Lymphocytes Percent Auto 28.6 % (20-40); Mean Corpuscular HGB Conc 30.6 g/dl (31.0-35.0); Mean Corpuscular Hemoglobin 26.1 pg (27.0-33.0); Mean Corpuscular Volume 85.5 fL (80.0-98.0); Mean Platelet Volume 10.1 fL (9.4-12.3); Monocytes Absolute Auto 0.3 X10*3/uL (0.1-1.2); Monocytes Percent Auto 5.5 % (2-11); Neutrophils Percent Auto 64.3 % (45-73); Platelet Count 134 X10*3/uL (160-400); Red Blood Count 3.79 X10*6/uL (4.20-5.50); Red Cell Distribution Width 14.4 % (11.0-16.0); White Blood Count 6.2 X10*3/uL (4.8-10.8)
[2022-08-10 19:29] LABS: VBG Base Excess 8.6 mmol/L; VBG HCO3 36 mmol/L (22-26); VBG pCO2 66 mmHg; VBG pH 7.34 (7.32-7.43); VBG pO2 36 mmHg
[2022-08-10 19:30] LABS: Venous Blood Gas Refer to POC result
[2022-08-10 19:42] LABS: Anion Gap 11 (12-20); Blood Urea Nitrogen 8 mg/dL (9-16); Calcium 8.4 mg/dL (8.4-10.2); Carbon Dioxide 31 mmol/L (22-29); Chloride 106 mmol/L (96-108); Creatinine Clr Calc Pharmacy 65.5; Estimated Glomerular Filt Rate > 60; Glucose Random 124 mg/dL (60-115); Potassium 3.8 mmol/L (3.3-5.1); Sodium 144 mmol/L (135-145)
[2022-08-10 19:50] LABS: Troponin-I High Sensitivity 7.8 ng/L (<3.5-17.0)
--- NOTE | 2022-08-10 21:53 | PC.NURSE ---
pt assisted with bedpan, cleaning and repositioning on stretcher. pt 02 desat'd with repositioning, placed on 4L simple mask with improvement.
[2022-08-10 22:00] VITALS: RESP 26
[2022-08-10 22:30] VITALS: BP 178/97; PULSE 71; RESP 16; O2SAT 92
--- NOTE | 2022-08-10 23:36 | PC.NURSE ---
Pt requesting to switch back to nasal cannula. Placed on nasal cannula at 3 LPM. O2 dropped to 88%. I increased to 5 LPM, which is what the pt is on at home, and O2 is at 93% at this time.
[2022-08-11] VITALS (8 sets, daily range): BP systolic 151–189; BP diastolic 93–108; PULSE 63–77; RESP 13–21; TEMP 36.7; O2SAT 91–100
[2022-08-11] MEDS: traZODone HCL 50 MG TABLET PO (01:45)
[2022-08-11] MEDS: carvediloL 12.5 MG TABLET PO ×2 (01:45→08:31)
[2022-08-11] MEDS: predniSONE 10 MG TABLET PO (01:45)
[2022-08-11] MEDS: QUEtiapine Fumarate 50 MG TABLET PO ×2 (01:45→08:31)
--- NOTE | 2022-08-11 04:34 | PC.NURSE ---
Pt BP noted to be 178/106. aware, ordering amlodipine. Pt is asleep in bed at this time, all other vitals signs WNL.
[2022-08-11] MEDS: amLODIPine Besylate 5 MG TABLET PO (04:40)
[2022-08-11 07:56] LABS: Glucose, Whole Blood 158 mg/dL (60-115)
[2022-08-11] MEDS: Isosorbide Mononitrate 30 MG TAB.ER.24H PO (08:30)
[2022-08-11] MEDS: Sertraline HCL 100 MG TABLET 200 MG PO (08:31)
[2022-08-11] MEDS: Folic Acid 1 MG TABLET PO (08:31)
[2022-08-11] MEDS: Furosemide 40 MG TABLET PO (08:31)
[2022-08-11] MEDS: Fluticasone/Vilanterol 100/25 BLST.W.DEV 1 PUFF INHALE (10:23)
[2022-08-11 11:32] LABS: Glucose, Whole Blood 156 mg/dL (60-115)
--- NOTE | 2022-08-11 12:18 | MHC.CM.ED ---
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 CM INFORMED HER THAT COULD NOT BE ARRANGED FROM HERE CM ENCOURAGED HER TO CONSIDER HER SAFETY SHE HAS NEARLY FALLEN AT LEAST 2X PER HER REPORT PT REPORTS HSE WILL BE FINE LONG SHE HAS HER OXYGEN CM CONTACTED RT WHO CONTACTED PTS O2 PROVIDER, SHANTA PT WILL DC HOME TODAY VIA [facility] Addendum entered by Tomeka Gutierrez 08/11/22 13:55: [facility] IS OFFERING A BED PENDING INSURANCE AUTH CM WILL INFORM PT WITH ASSISTANCE OF A OUTSIDE FOOD SERVER HHW SUBMITTING FOR AUTH Original Note: PT FROM HOME WHERE SHE LIVES ALONE AND HAS ONE HOUR OF [employer] D[employer]ING MACHINE 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 SEVEN REFERRALS MADE PT IS NOT COVID VAX
--- NOTE | 2022-08-11 17:15 | PC.RT ---
Rt request computer operations supervisor assistance in patient eduation concerning e cylinder. Pt to be d/c home. Was noted to have [employer] as a home o2 supply. Two full e cylinders were brought to the patients bedside, regulators fixed into place, and eachflow control was tested and confirmed. Pt was able to show adjustment of flow, acknowledge the pressure status on the gauge as it pertains to volume left and safety. The pt was reminded x 3 to be sure and call [employer] upon arrival home. Pt was asked, through the computer operations supervisor, if she had any questions or concerns and denied any issue. RN aware.
== END 2022-08-11 18:14 | disposition home or self-care (01) ==
PROVIDERS: Emergency Provider Internal Medicine; PCP Internal Medicine
DX: J44.9 Chronic obstructive pulmonary disease, unspecified (principal); R26.2 Difficulty in walking, not elsewhere classified; G47.33 Obstructive sleep apnea (adult) (pediatric); R94.31 Abnormal electrocardiogram [ECG] [EKG]; I10 Essential (primary) hypertension; Z99.81 Dependence on supplemental oxygen; Z79.899 Other long term (current) drug therapy; Z91.199 Patient's noncompliance with other medical treatment and regimen due to unspecified reason
CPT/HCPCS: 36415; 71045; 80048; 82803; 82947; 84484; 85025; 93005; 97162; 99285; J2930; J3475

== ENCOUNTER 2022-09-07 21:09 | Emergency (ER) | payer OTHER, SELFPAY ==
--- NOTE | 2022-09-07 | ECG_ITS ---
Test Reason : chest pain Blood Pressure : / mmHG Vent. Rate : 084 BPM Atrial Rate : 084 BPM P-R Int : 126 ms QRS Dur : 130 ms QT Int : 406 ms P-R-T Axes : 026 022 -13 degrees QTc Int : 479 ms Sinus rhythm with Premature supraventricular complexes Non-specific intra-ventricular conduction block Abnormal ECG When compared with ECG of 10-AUG-2022 19:49, Premature supraventricular complexes are now Present Referred By: Generic ED Physician Electronically Signed By:NATALIA SHANNON
--- NOTE | ~2022-09-07 | CT_ITS ---
EXAMINATION: CT ABDOMEN AND PELVIS WITHOUT CONTRAST CLINICAL INFORMATION: Right flank pain COMPARISON: 10/05/2018 TECHNIQUE: Multidetector volumetric imaging was performed from the superior aspect of the liver through the pubic symphysis. Sagittal and coronal reformatted images were obtained on the technologist's workstation. This CT examination was performed using dose optimization techniques as appropriate, variously including the following: *Automated exposure control *Adjustment of mA and/or kV according to patient size (this includes techniques or standardized protocols for targeted exams where dose is matched to indication/reason for exam; i.e. extremities or head) *Use of iterative reconstruction technique DLP: 401 mGy-cm FINDINGS: Limited evaluation in some regions due to motion artifact. LUNG BASES: Bibasilar emphysema noted. LIVER, GALLBLADDER, AND BILIARY TREE: The liver is normal in size, shape, and attenuation. Limited evaluation for focal hepatic lesions without intravenous contrast. No biliary ductal dilatation is present. Gallbladder is grossly unremarkable. PANCREAS: Unremarkable. SPLEEN: Unremarkable. ADRENAL GLANDS: Unremarkable. KIDNEYS AND URETERS: No hydronephrosis or obstructing calculus bilaterally. Exophytic left renal cysts are noted; no follow-up recommended. BLADDER: Unremarkable. GASTROINTESTINAL TRACT: Colonic diverticulosis is noted. The small and large bowel are otherwise unremarkable without evidence of obstruction or pericolonic inflammatory change. The appendix is unremarkable. No free fluid or free air is seen. ABDOMINAL WALL: No significant hernia is appreciated. LYMPH NODES: Normal. VASCULAR: Relatively mild scattered atherosclerotic calcifications. PELVIC VISCERA: Patient is status post hysterectomy. OSSEOUS STRUCTURES: Chronic-appearing severe compression deformity of L1. Facet arthropathy of the lower lumbar spine. CT/CT abdomen pelvis wo IV con IMPRESSION: No hydronephrosis or obstructing calculus. No acute findings identified in the abdomen/pelvis.
[2022-09-07 21:29] VITALS: BP 149/90; PULSE 95; RESP 22; TEMP 36.7; O2SAT 91; BMI 30.5
[2022-09-07 22:33] LABS: Alanine Aminotransferase 8 U/L (0-31); Albumin Level 3.9 g/dL (3.5-5.0); Alkaline Phosphatase 126 U/L (39-117); Anion Gap 14 (12-20); Aspartate Amino Transferase 18 U/L (5-31); Bilirubin Total 0.4 mg/dL (0.0-1.0); Blood Urea Nitrogen 10 mg/dL (9-16); Calcium 9.1 mg/dL (8.4-10.2); Carbon Dioxide 30 mmol/L (22-29); Chloride 100 mmol/L (96-108); Creatinine Clr Calc Pharmacy 61.8; Estimated Glomerular Filt Rate > 60; Glucose Random 121 mg/dL (60-115); Sodium 141 mmol/L (135-145); Total Protein 7.2 g/dL (6.5-8.0)
[2022-09-07 22:40] LABS: Troponin-I High Sensitivity 11.4 ng/L (<3.5-17.0)
[2022-09-07 22:50] LABS: Basophils Percent Auto 0.3 % (0-2); Eosinophils Absolute Auto 0.1 X10*3/uL (0.0-0.4); Eosinophils Percent Auto 1.4 % (0-4); Hematocrit 33.6 % (37.0-47.0); Hemoglobin 10.4 g/dl (12.0-16.0); Imm Gran Abs Auto 0.02 X10*3/uL (0.00-0.03); Imm Gran Pct Auto 0.3 % (0.0-0.4); Lymphocytes Absolute Auto 1.8 X10*3/uL (1.2-4.9); Lymphocytes Percent Auto 27.2 % (20-40); Mean Corpuscular Hemoglobin 25.8 pg (27.0-33.0); Mean Corpuscular Volume 83.4 fL (80.0-98.0); Mean Platelet Volume 10.3 fL (9.4-12.3); Monocytes Absolute Auto 0.4 X10*3/uL (0.1-1.2); Monocytes Percent Auto 6.6 % (2-11); Neutrophils Absolute Auto 4.2 x10*3/uL (2.0-8.3); Neutrophils Percent Auto 64.2 % (45-73); Platelet Count 134 X10*3/uL (160-400); Red Blood Count 4.03 X10*6/uL (4.20-5.50); Red Cell Distribution Width 14.6 % (11.0-16.0); White Blood Count 6.5 X10*3/uL (4.8-10.8)
--- NOTE | 2022-09-07 23:20 | ED_ITS ---
HPI - General Adult General Chief complaint: Dyspnea Stated complaint: Left Flank Pain with Headache Time Seen by Provider: 09/07/22 21:27 History of Present Illness HPI narrative: Patient is a 62-year-old female with a history respiratory failure history of severe COPD baseline on oxygen, positive pain to the left flank area. Patient is from home. No coughing or congestion. No pain on urination. Pain is sharp. It has been ongoing for 3 days. There is no Taylor noted. Related Data Home Medications Medication Instructions Recorded Confirmed trazodone 50 mg tablet 50 mg PO BEDTIME PRN Sleep 03/08/20 08/11/22 carvedilol 12.5 mg tablet 1 tab PO BID 07/22/22 08/11/22 Previous Rx's Medication Instructions Recorded quetiapine 50 mg tablet 50 mg PO BID 90 days #180 tabs 12/18/20 sertraline 100 mg tablet 200 mg PO DAILY 90 days #180 tabs 12/18/20 isosorbide mononitrate 30 mg 30 mg PO DAILY 90 days #90 tabs 08/15/21 tablet,extended release 24 hr montelukast 10 mg tablet 10 mg PO BEDTIME #30 tabs 11/01/21 tiotropium bromide 18 mcg capsule 1 cap inhalation DAILY #30 ea 06/29/22 with inhalation device (Spiriva with HandiHaler) furosemide 40 mg tablet 40 mg PO DAILY #30 tabs 07/03/22 fluticasone furoate 100 1 ea inhalation RDAILY #1 ea 07/25/22 mcg-vilanterol 25 mcg/dose inhalation powder (Breo Ellipta) prednisone 10 mg tablet 10 mg PO DIRECTED #30 tabs 07/25/22 folic acid 1 mg tablet 1 mg PO DAILY #90 tabs 09/04/22 Allergies Allergy/AdvReac Type Severity Reaction Status Date / Time nicotine [Nicotine] Allergy Mild ITCHING Verified 08/28/22 14:23 WITH THE PATCHES topiramate Allergy Mild inadequealte Verified 08/28/22 14:23 response Review of Systems Review of Systems: Positive right-sided flank pain Yes all other systems are reviewed and are negative [facility] Past Medical History Attestation statement: The following information was validated with the patient. Medical History Anxiety Atelectasis, right Chronic respiratory failure Depression Diabetes Essential hypertension HFrEF (heart failure with reduced ejection fraction) HLD (hyperlipidemia) HTN (hypertension) Hypertensive emergency Non-rheumatic mitral regurgitation Nonischemic cardiomyopathy KELLIE (obstructive sleep apnea) Osteoporosis Pulmonary hypertension Respiratory failure with hypoxia and hypercapnia Severe chronic obstructive pulmonary disease Supraventricular tachycardia Tobacco abuse Surgical History Bilateral ankle fractures History of total abdominal hysterectomy Family History Family History Father No problems noted. 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 home services: No Unable to assess alcohol history related to: Unable to respond Alcohol intake: never Patient Tobacco Use Status: Never used Tobacco Tobacco use type: Cigarette Cigarettes Per Day: 4 Years Smoked: 50 +/- e-Cigarette/Vaping Use: Never Used Second Hand Smoke Exposure: No Advance Directives: Yes Advance Directives on File: Yes Advance Directives Date on File: 04/30/20 service: No Current occupational status: disabled Cognitive needs: Yes Hearing needs: No Vision needs: No Physical Exam ED Vital Signs: Vital Signs - 24 hr 09/07/22 21:29 09/08/22 00:38 09/08/22 03:08 Temperature 98.1 F 98.0 F Pulse Rate 95 77 71 Respiratory Rate 22 H 17 14 Blood Pressure 149/90 H 156/88 H 151/119 H Pulse Oximetry 91 L 98 98 Oxygen Delivery Method Nasal Cannula Nasal Cannula Nasal Cannula Oxygen Flow Rate 6 6 BMI result Body Mass Index 30.5 Appearance: Alert. Oriented X3. No acute distress. Eyes: Pupils equal, round and reactive to light. ENT: Pharynx normal. Neck: Normal inspection. Neck supple. No lymph nodes noted. No crepitus CVS: Normal heart rate and rhythm. Pulses normal. Normal S1 and S2 Respiratory: No respiratory distress. Breath sounds normal. No Wheezing. No rales Abdomen: Soft and nontender. No rigidity. No distention. good BS x4 Skin: Skin warm and dry. Normal skin color. Normal skin turgor. Extremities: No lower extremity edema. Neurovascular intact to all extremities. No Lacerations. No Rash Neuro: Oriented X 3. No motor deficit. No sensory deficit. Moving all extermities. No slurred speech Medical Decision Making Medical Decision Making [facility] Narrative: Patient complaining of flank pain. With a long history of COPD. On oxygen home. CT scan of the abdomen pelvis was negative for any acute evidence of kidney stone, appendicitis, diverticulitis. Patient urine showed no signs of infection. Two sets of heart enzymes were done. There was both a negative no distress. My interpretation of her EKG showed a sinus pattern with a right bundle branch block heart rate was approximately 80. Differential Diagnosis Differential Diagnoses: The differential diagnosis associated with the presentation includes Myocardial infarction, pneumonia, urinary tract infection Lab Data [facility] Lab Attestation statement: I reviewed the patient's lab results. 09/07/22 22:46 09/07/22 22:07 Labs: Lab Results 09/07/22 09/07/22 09/07/22 Range/Units 22:07 22:07 22:46 WBC 6.5 (4.8-10.8) X10*3/uL RBC 4.03 L (4.20-5.50) X10*6/uL Hgb 10.4 L (12.0-16.0) g/dl Hct 33.6 L (37.0-47.0) % MCV 83.4 (80.0-98.0) fL MCH 25.8 L (27.0-33.0) pg MCHC 31.0 (31.0-35.0) g/dl RDW 14.6 (11.0-16.0) % Plt Count 134 L (160-400) X10*3/uL MPV 10.3 (9.4-12.3) fL Immature Gran % (Auto) 0.3 (0.0-0.4) % Neut % (Auto) 64.2 (45-73) % Lymph % (Auto) 27.2 (20-40) % [place] % (Auto) 6.6 (2-11) % Eos % (Auto) 1.4 (0-4) % Baso % (Auto) 0.3 (0-2) % Lymph # (Auto) 1.8 (1.2-4.9) X10*3/uL [place] # (Auto) 0.4 (0.1-1.2) X10*3/uL Eos # (Auto) 0.1 (0.0-0.4) X10*3/uL Baso # (Auto) 0.0 (0.0-0.2) X10*3/uL Abs Immat Gran (auto) 0.02 (0.00-0.03) X10*3/uL Absolute Neuts (auto) 4.2 (2.0-8.3) x10*3/uL Absolute Nucleated RBC 0.000 (0.0-0.012) X10*3/uL Nucleated RBC % (auto) 0.0 (0.0-0.2) /100WBC Sodium 141 (135-145) mmol/L Potassium 3.0 L D (3.3-5.1) mmol/L Chloride 100 (96-108) mmol/L Carbon Dioxide 30 H (22-29) mmol/L Anion Gap 14 (12-20) BUN 10 (9-16) mg/dL Creatinine 0.77 (0.5-1.4) mg/dL Estim Creat Clear Calc 61.8 Estimated GFR > 60 Random Glucose 121 H (60-115) mg/dL Calcium 9.1 D (8.4-10.2) mg/dL Total Bilirubin 0.4 (0.0-1.0) mg/dL AST 18 (5-31) U/L ALT 8 (0-31) U/L Alkaline Phosphatase 126 H (39-117) U/L Troponin I High Sens 11.4 (<3.5-17.0) ng/L Total Protein 7.2 (6.5-8.0) g/dL Albumin 3.9 (3.5-5.0) g/dL Urine Color Urine Appearance Urine pH (5.0-9.0) Ur Specific [place] (1.005-1.025) Urine Protein (Neg-Trace) mg/dL Urine Glucose (UA) (Negative) mg/dL Urine Ketones (Negative) mg/dL Urine Blood (Negative) Urine Nitrite (Negative) Ur Leukocyte Esterase (Negative) Urine RBC (0-2) /HPF Urine WBC (0-5) /HPF Ur Squamous Epith Cells (0-2) /HPF Urine Bacteria (None Seen) Hyaline Casts (0-2) /LPF 09/08/22 Range/Units 03:20 WBC (4.8-10.8) X10*3/uL RBC (4.20-5.50) X10*6/uL Hgb (12.0-16.0) g/dl Hct (37.0-47.0) % MCV (80.0-98.0) fL MCH (27.0-33.0) pg MCHC (31.0-35.0) g/dl RDW (11.0-16.0) % Plt Count (160-400) X10*3/uL MPV (9.4-12.3) fL Immature Gran % (Auto) (0.0-0.4) % Neut % (Auto) (45-73) % Lymph % (Auto) (20-40) % [place] % (Auto) (2-11) % Eos % (Auto) (0-4) % Baso % (Auto) (0-2) % Lymph # (Auto) (1.2-4.9) X10*3/uL [place] # (Auto) (0.1-1.2) X10*3/uL Eos # (Auto) (0.0-0.4) X10*3/uL Baso # (Auto) (0.0-0.2) X10*3/uL Abs Immat Gran (auto) (0.00-0.03) X10*3/uL Absolute Neuts (auto) (2.0-8.3) x10*3/uL Absolute Nucleated RBC (0.0-0.012) X10*3/uL Nucleated RBC % (auto) (0.0-0.2) /100WBC Sodium (135-145) mmol/L Potassium (3.3-5.1) mmol/L Chloride (96-108) mmol/L Carbon Dioxide (22-29) mmol/L Anion Gap (12-20) BUN (9-16) mg/dL Creatinine (0.5-1.4) mg/dL Estim Creat Clear Calc Estimated GFR Random Glucose (60-115) mg/dL Calcium (8.4-10.2) mg/dL Total Bilirubin (0.0-1.0) mg/dL AST (5-31) U/L ALT (0-31) U/L Alkaline Phosphatase (39-117) U/L Troponin I High Sens (<3.5-17.0) ng/L Total Protein (6.5-8.0) g/dL Albumin (3.5-5.0) g/dL Urine Color Yellow Urine Appearance Clear Urine pH 6.0 (5.0-9.0) Ur Specific [place] <= 1.005 (1.005-1.025) Urine Protein Negative (Neg-Trace) mg/dL Urine Glucose (UA) Negative (Negative) mg/dL Urine Ketones Negative (Negative) mg/dL Urine Blood Negative (Negative) Urine Nitrite Negative (Negative) Ur Leukocyte Esterase Negative (Negative) Urine RBC 0-2 (0-2) /HPF Urine WBC 0-5 (0-5) /HPF Ur Squamous Epith Cells 0-2 (0-2) /HPF Urine Bacteria None Seen (None Seen) Hyaline Casts 0-2 (0-2) /LPF Independent Interpretation I performed an independent interpretation of an: CT Scan Interpretation: Grossly negative Radiology Impression Discussion of test interpretation with radiology: I have reviewed the radiologist's reading. External Record Review External record reviewed: Inpatient record Discharge Plan Discharge Clinical Impression: Acute flank pain Patient Disposition: Home, Self-Care Instructions: Acute Abdominal Pain (DC) Prescriptions: No Action sertraline 100 mg tablet 200 mg PO DAILY 90 Days Qty: 180 1RF quetiapine 50 mg tablet 50 mg PO BID 90 Days Qty: 180 1RF isosorbide mononitrate 30 mg tablet extended release 24 hr 30 mg PO DAILY 90 Days Qty: 90 3RF Protocol: Hold for SBP< HOLD for SBP < : 90 montelukast 10 mg tablet 10 mg PO BEDTIME Qty: 30 11RF Spiriva with HandiHaler 18 mcg capsule, w/inhalation device 1 cap inhalation DAILY Qty: 30 5RF furosemide 40 mg tablet 40 mg PO DAILY Qty: 30 3RF trazodone 50 mg tablet 50 mg PO BEDTIME PRN (Reason: Sleep) folic acid 1 mg Tablet 1 mg PO DAILY Qty: 90 4RF carvedilol 12.5 mg tablet 1 tab PO BID fluticasone furoate-vilanterol [Breo Ellipta] 100-25 mcg/dose Blister With Device 1 ea inhalation RDAILY Qty: 1 0RF prednisone 10 mg tablet 10 mg PO DIRECTED Qty: 30 0RF Rx Instructions: see taper instructions Referrals: Analisa Carr MD [Primary Care Provider] -
[2022-09-08 00:38] VITALS: BP 156/88; PULSE 77; RESP 17; TEMP 36.7; O2SAT 98
--- NOTE | 2022-09-08 01:12 | PC.NURSE ---
Pt assisted on bedpan, unable to void. PO fluids provided at this time.
[2022-09-08 03:08] VITALS: BP 151/119; PULSE 71; RESP 14; O2SAT 98
--- NOTE | 2022-09-08 03:21 | PC.NURSE ---
Pt straight cath for urine, sample collected and sent to lab.
[2022-09-08 03:25] LABS: Appearance Urine Clear; Color Urine Yellow; Glucose Urine UA Negative (Negative); Leukocyte Esterase Urine Negative (Negative); Nitrite Urine Negative (Negative); Specific Gravity - Urine <= 1.005 (1.005-1.025); Urine Blood Negative (Negative); Urine Ketones Negative (Negative); Urine Protein Negative (Neg-Trace)
[2022-09-08 03:28] LABS: Bacteria Urine None Seen (None Seen); Hyaline Casts Urine 0-2 /LPF (0-2); RBC Urine 0-2 /HPF (0-2); Squamous Epithelial Cell Urine 0-2 /HPF (0-2); WBC Urine 0-5 /HPF (0-5)
[2022-09-08 05:16] VITALS: BP 180/97; PULSE 73; RESP 16; O2SAT 98
== END 2022-09-08 07:27 | disposition home or self-care (01) ==
PROVIDERS: Emergency Provider Emergency Medicine Emergency Medical Services; PCP Internal Medicine
DX: R06.02 Shortness of breath (principal); R07.89 Other chest pain; F17.210 Nicotine dependence, cigarettes, uncomplicated; Z79.899 Other long term (current) drug therapy; Z71.6 Tobacco abuse counseling
CPT/HCPCS: 36415; 74176; 80053; 81001; 84484; 85025; 93005; 99284

== ENCOUNTER 2022-10-18 23:57 | Inpatient (IN) | payer OTHER, SELFPAY ==
--- NOTE | ~2022-10-18 | XR_ITS ---
EXAMINATION: XR CHEST CLINICAL INFORMATION: Shortness of breath COMPARISON: 08/10/2022 TECHNIQUE: Frontal view of the chest was obtained. FINDINGS: Emphysema. Bibasilar subsegmental atelectasis. No discrete consolidation. No pleural effusion or pneumothorax. Stable cardiomegaly. Pulmonary vascularity within normal limits. Aorta is atherosclerotic. XR/XR chest 1V IMPRESSION: * No acute findings. * Emphysema.
[2022-10-19] VITALS (17 sets, daily range): BP systolic 138–193; BP diastolic 86–131; PULSE 72–101; RESP 16–27; TEMP 36.1–36.8; O2SAT 79–98; BMI 29.7
--- NOTE | 2022-10-19 00:05 | ECG_ITS ---
Test Reason : SOB Blood Pressure : / mmHG Vent. Rate : 092 BPM Atrial Rate : 092 BPM P-R Int : 158 ms QRS Dur : 134 ms QT Int : 442 ms P-R-T Axes : 007 039 -37 degrees QTc Int : 546 ms Sinus rhythm with Fusion complexes Right bundle branch block T wave abnormality, consider inferior ischemia Abnormal ECG When compared with ECG of 07-SEP-2022 21:52, Fusion complexes are now Present Premature supraventricular complexes are no longer Present Right bundle branch block has replaced Non-specific intra-ventricular conduction block Referred By: Ayde Stein Electronically Signed By:
[2022-10-19 00:33] LABS: MANUAL DIFF FLAG NO
[2022-10-19 00:35] LABS: Basophils Percent Auto 0.1 % (0-2); Eosinophils Percent Auto 0.5 % (0-4); Hematocrit 35.9 % (37.0-47.0); Hemoglobin 11.1 g/dl (12.0-16.0); Imm Gran Abs Auto 0.03 X10*3/uL (0.00-0.03); Imm Gran Pct Auto 0.3 % (0.0-0.4); Lymphocytes Absolute Auto 0.9 X10*3/uL (1.2-4.9); Lymphocytes Percent Auto 10.4 % (20-40); Mean Corpuscular HGB Conc 30.9 g/dl (31.0-35.0); Mean Corpuscular Hemoglobin 25.3 pg (27.0-33.0); Mean Platelet Volume 10.6 fL (9.4-12.3); Monocytes Absolute Auto 0.3 X10*3/uL (0.1-1.2); Monocytes Percent Auto 2.8 % (2-11); Neutrophils Absolute Auto 7.6 x10*3/uL (2.0-8.3); Neutrophils Percent Auto 85.9 % (45-73); Platelet Count 147 X10*3/uL (160-400); Red Blood Count 4.38 X10*6/uL (4.20-5.50); Red Cell Distribution Width 14.8 % (11.0-16.0); White Blood Count 8.9 X10*3/uL (4.8-10.8)
[2022-10-19 00:40] LABS: VBG Base Excess 6.6 mmol/L; VBG HCO3 30 mmol/L (22-26); VBG pCO2 40 mmHg; VBG pH 7.48 (7.32-7.43); VBG pO2 41 mmHg
[2022-10-19 00:40] LABS: Venous Blood Gas Refer to POC result
[2022-10-19] MEDS: Albuterol Sulfate (0.083%) 2.5 MG/3 ML VIAL.NEB 5 MG INHALE (00:40)
[2022-10-19] MEDS: methylPREDNISolone Sod Succ 125 MG/2 ML VIAL IVPUSH (00:43)
[2022-10-19 00:50] LABS: Alanine Aminotransferase 9 U/L (0-31); Albumin Level 4.2 g/dL (3.5-5.0); Alkaline Phosphatase 151 U/L (39-117); Anion Gap 12 (12-20); Aspartate Amino Transferase 17 U/L (5-31); Bilirubin Total 0.4 mg/dL (0.0-1.0); Blood Urea Nitrogen 11 mg/dL (9-16); Calcium 9.5 mg/dL (8.4-10.2); Carbon Dioxide 30 mmol/L (22-29); Chloride 103 mmol/L (96-108); Creatinine Clr Calc Pharmacy 55.7; Estimated Glomerular Filt Rate > 60; Glucose Random 189 mg/dL (60-115); Magnesium 1.9 mg/dL (1.6-2.6); Potassium 2.8 mmol/L (3.3-5.1); Sodium 142 mmol/L (135-145); Total Protein 8.1 g/dL (6.5-8.0)
[2022-10-19 00:52] LABS: COVID-19 Test Negative (Negative); IDNOW Serial# 6674DD1D
[2022-10-19 00:56] LABS: B Type Natriuretic Peptide 442 pg/mL (<100); Troponin-I High Sensitivity 5.9 ng/L (<3.5-17.0)
--- NOTE | 2022-10-19 01:11 | ED_ITS ---
HPI - SOB/Dyspnea General Chief Complaint: Dyspnea Stated Complaint: Sob Time Seen by Provider: 10/19/22 00:25 Source: patient Mode of arrival: EMS Limitations: language barrier (Honduran speaking only) History of Present Illness HPI Narrative: 62-year-old female who presents emergency department for evaluation of shortness of breath and left-sided chest pain. She states the symptoms began at 19:00 hours. She states that the chest pain came on while she was at rest. She points to her left anterior chest when asked to localize the pain. The pain is a burning like sensation which is been intermittent. The pain did not radiate to her neck, jaw, arms or back. She denied fever, chills, cough pain. Patient does wear 4 L of oxygen chronically for her COPD. Related Data Home Medications Medication Instructions Recorded Confirmed trazodone 50 mg tablet 50 mg PO BEDTIME PRN Sleep 03/08/20 08/11/22 carvedilol 12.5 mg tablet 1 tab PO BID 07/22/22 08/11/22 Previous Rx's Medication Instructions Recorded quetiapine 50 mg tablet 50 mg PO BID 90 days #180 tabs 12/18/20 sertraline 100 mg tablet 200 mg PO DAILY 90 days #180 tabs 12/18/20 montelukast 10 mg tablet 10 mg PO BEDTIME #30 tabs 11/01/21 tiotropium bromide 18 mcg capsule 1 cap inhalation DAILY #30 ea 06/29/22 with inhalation device (Spiriva with HandiHaler) furosemide 40 mg tablet 40 mg PO DAILY #30 tabs 07/03/22 fluticasone furoate 100 1 ea inhalation RDAILY #1 ea 07/25/22 mcg-vilanterol 25 mcg/dose inhalation powder (Breo Ellipta) prednisone 10 mg tablet 10 mg PO DIRECTED #30 tabs 07/25/22 folic acid 1 mg tablet 1 mg PO DAILY #90 tabs 09/04/22 isosorbide mononitrate 30 mg 30 mg PO DAILY 90 days #90 tabs 10/05/22 tablet,extended release 24 hr Allergies Allergy/AdvReac Type Severity Reaction Status Date / Time nicotine [Nicotine] Allergy Mild ITCHING Verified 10/02/22 10:13 WITH THE PATCHES topiramate Allergy Mild inadequealte Verified 10/02/22 10:13 response Review of Systems Review of Systems: Yes all other systems are reviewed and are negative [facility] Past Medical History Medical History Anxiety Atelectasis, right Chronic respiratory failure Depression Diabetes Essential hypertension HFrEF (heart failure with reduced ejection fraction) HLD (hyperlipidemia) HTN (hypertension) Hypertensive emergency Non-rheumatic mitral regurgitation Nonischemic cardiomyopathy KELLIE (obstructive sleep apnea) Osteoporosis Pulmonary hypertension Respiratory failure with hypoxia and hypercapnia Severe chronic obstructive pulmonary disease Supraventricular tachycardia Tobacco abuse Surgical History Bilateral ankle fractures History of total abdominal hysterectomy Family History Family History Father No problems noted. 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 home services: No Unable to assess alcohol history related to: Unable to respond Alcohol intake: never Patient Tobacco Use Status: Never used Tobacco Tobacco use type: Cigarette Cigarettes Per Day: 4 Years Smoked: 50 +/- e-Cigarette/Vaping Use: Never Used Second Hand Smoke Exposure: No Advance Directives: Yes Advance Directives on File: Yes Advance Directives Date on File: 04/30/20 service: No Current occupational status: disabled Cognitive needs: Yes Hearing needs: No Vision needs: No Physical Exam Vital Signs: Vital Signs: Last Vital Signs Temp 98.2 F 10/19/22 00:05 Pulse 92 10/19/22 02:03 Resp 16 10/19/22 02:03 BP 170/105 H 10/19/22 01:27 Pulse Ox 93 10/19/22 01:27 O2 Del Method Nasal Cannula 10/19/22 01:27 O2 Flow Rate 4 10/19/22 01:27 Oxygen Flow Rate 4 10/19/22 00:05 BMI result Body Mass Index 29.7 Const: Other: Awake, alert, elderly female, tachypneic, dyspneic answers questions in short sentences HEENT: Head: Yes normal to inspection, Yes normocephalic and Yes atraumatic Ears: external ears normal General nose exam: Normal external nose present Face and sinus: Yes normal facial exam Mouth: Normal oral and palatal mucosa present Throat: Yes posterior oropharynx normal Eyes: General: appearance normal, both eyes and all related structures Pupils: Equal, round and reactive pupils present Neck: Neck: Yes normal visual inspection, Yes no lymphadenopathy, Yes trachea midline and Yes supple Chest: Chest palpation & inspection: normal inspection of the chest and normal palpation of entire chest wall Resp: Other: Tachypnea, dyspnea, diffuse wheezing and rhonchi, no rales, breath sounds symmetric bilaterally Cardio: Rate: regular rate Rhythm: regular rhythm Heart sounds: S1 normal heart sound present, S2 normal heart sound present and no murmurs GI: Inspection: Yes normal to inspection Palpation (GI): Soft to palpation, nontender and no guarding Auscultation: normal bowel sounds : General: Yes no CVA tenderness Back/Spine/Pelvis: Back: no CVA tenderness Skin: General skin exam: no rashes or lesions noted Neuro: Cranial nerves: Yes CN's II-XII intact bilaterally and Yes Equal, round and reactive pupils present Cognition (Neuro): normal cognition Motor exam (neuro): 5/5 motor strength present throughout Extrem: Other: Was all extremities symmetrically Psych: Appearance: grossly normal Speech and movement: Normal speech and movement present Affect: normal affect Medications Administered Discontinued Medications Generic Name Dose Route Start Last Admin Trade Name Vincentq PRN Reason Stop Dose Admin Albuterol Sulfate 5 mg 10/19/22 00:33 10/19/22 00:40 Albuterol Sulfate (0.083%) 2.5 Mg/3 Ml Vial.Neb INHALE 10/19/22 00:34 5 mg ONCE ONE Administration Albuterol/Ipratropium 3 ml 10/19/22 01:18 10/19/22 02:02 Albuterol/Iprat 2.5/0.5mg 3 Ml Ampul.Neb INHALE 10/19/22 01:19 3 ml ONCE ONE Administration Ketorolac Tromethamine 15 mg 10/19/22 01:13 10/19/22 01:23 Ketorolac Tromethamine 15 Mg/Ml Vial IVPUSH 10/19/22 01:14 15 mg ONCE STA Administration Methylprednisolone Sodium Succinate 125 mg 10/19/22 00:33 10/19/22 00:43 Methylprednisolone Sod Succ 125 Mg/2 Ml Vial IVPUSH 10/19/22 00:34 125 mg ONCE ONE Administration Potassium Chloride 40 meq 10/19/22 01:18 10/19/22 01:32 Potassium Chloride Packet 20 Meq Packet PO 10/19/22 01:19 Not Given ONCE ONE Potassium Chloride 20 meq 10/19/22 01:31 10/19/22 01:38 Potassium Chloride Er 20 Meq Tab.Er.Prt PO 10/19/22 01:32 20 meq ONCE ONE Administration Medical Decision Making Medical Decision Making [facility] Narrative: 62-year-old female history of COPD, pulmonary hypertension, diabetes, hypertension, depression who presents emergency department for evaluation of shortness of breath and left-sided chest pain which began at 17:00 hours. Vital signs revealed an elevated blood pressure of 174/131, elevated respiratory of 23, O2 saturation was 98% on 4 L. lung exam revealed diffuse wheezing and rhonchi with no rales. I ordered the following tests on the patient: CBC, CMP, VBG, COVID-19, magnesium, troponin, BNP, EKG, one-view chest x-ray. 0119: My independent interpretation patient's laboratory evaluation is as follows: Anemia with an H&H of 11 and 35 . Low platelet count 147,000. Low potassium 2.8. Elevated bicarb 30. Elevated glucose 189. Elevated alk-phos 151. High sensitive troponin I was detectable but not elevated at 5.9. 0231: Patient improved after the albuterol nebulizer and was also given a DuoNeb nebulizer. The patient's chest pain is resolved. My independent interpretation patient's laboratory evaluation is as follows: Anemia with an H&H of 11 and 359. Low platelet count 147. Potassium was low 2.8. Bicarb elevated 30. Glucose elevated 189. High sensitive troponin I was detectable but not elevated 5.9. Repeat troponin 2 at 03:30 hours. Patient's chest x-ray was unremarkable. Patient's presentation is consistent with COPD exacerbation. I will discuss admission with the covering hospitalist. 0315: I did discuss the patient's presentation with the covering hospitalist, Dr. Duvall and the patient will be admitted for further treatment. Lab Data [facility] Lab Attestation statement: I reviewed the patient's lab results. 10/19/22 00:26 10/19/22 00:26 Labs: Lab Results 10/19/22 10/19/22 10/19/22 Range/Units 00:26 00:26 00:26 WBC 8.9 (4.8-10.8) X10*3/uL RBC 4.38 (4.20-5.50) X10*6/uL Hgb 11.1 L (12.0-16.0) g/dl Hct 35.9 L (37.0-47.0) % MCV 82.0 (80.0-98.0) fL MCH 25.3 L (27.0-33.0) pg MCHC 30.9 L (31.0-35.0) g/dl RDW 14.8 (11.0-16.0) % Plt Count 147 L (160-400) X10*3/uL MPV 10.6 (9.4-12.3) fL Immature Gran % (Auto) 0.3 (0.0-0.4) % Neut % (Auto) 85.9 H (45-73) % Lymph % (Auto) 10.4 L (20-40) % [place] % (Auto) 2.8 (2-11) % Eos % (Auto) 0.5 (0-4) % Baso % (Auto) 0.1 (0-2) % Lymph # (Auto) 0.9 L (1.2-4.9) X10*3/uL [place] # (Auto) 0.3 (0.1-1.2) X10*3/uL Eos # (Auto) 0.0 (0.0-0.4) X10*3/uL Baso # (Auto) 0.0 (0.0-0.2) X10*3/uL Abs Immat Gran (auto) 0.03 (0.00-0.03) X10*3/uL Absolute Neuts (auto) 7.6 (2.0-8.3) x10*3/uL Absolute Nucleated RBC 0.000 (0.0-0.012) X10*3/uL Nucleated RBC % (auto) 0.0 (0.0-0.2) /100WBC VBG pH (7.32-7.43) VBG pCO2 mmHg VBG pO2 mmHg VBG HCO3 (22-26) mmol/L VBG O2 Saturation % VBG Base Excess mmol/L Sodium 142 (135-145) mmol/L Potassium 2.8 L (3.3-5.1) mmol/L Chloride 103 (96-108) mmol/L Carbon Dioxide 30 H (22-29) mmol/L Anion Gap 12 (12-20) BUN 11 (9-16) mg/dL Creatinine 0.88 (0.5-1.4) mg/dL Estim Creat Clear Calc 55.7 Estimated GFR > 60 Random Glucose 189 H (60-115) mg/dL Calcium 9.5 (8.4-10.2) mg/dL Magnesium 1.9 (1.6-2.6) mg/dL Total Bilirubin 0.4 (0.0-1.0) mg/dL AST 17 (5-31) U/L ALT 9 (0-31) U/L Alkaline Phosphatase 151 H (39-117) U/L Troponin I High Sens 5.9 (<3.5-17.0) ng/L B-Natriuretic Peptide (<100) pg/mL Total Protein 8.1 H (6.5-8.0) g/dL Albumin 4.2 (3.5-5.0) g/dL COVID-19 (ANEL) (Negative) COVID-19 Clin Com 10/19/22 10/19/22 10/19/22 Range/Units 00:26 00:26 00:31 WBC (4.8-10.8) X10*3/uL RBC (4.20-5.50) X10*6/uL Hgb (12.0-16.0) g/dl Hct (37.0-47.0) % MCV (80.0-98.0) fL MCH (27.0-33.0) pg MCHC (31.0-35.0) g/dl RDW (11.0-16.0) % Plt Count (160-400) X10*3/uL MPV (9.4-12.3) fL Immature Gran % (Auto) (0.0-0.4) % Neut % (Auto) (45-73) % Lymph % (Auto) (20-40) % [place] % (Auto) (2-11) % Eos % (Auto) (0-4) % Baso % (Auto) (0-2) % Lymph # (Auto) (1.2-4.9) X10*3/uL [place] # (Auto) (0.1-1.2) X10*3/uL Eos # (Auto) (0.0-0.4) X10*3/uL Baso # (Auto) (0.0-0.2) X10*3/uL Abs Immat Gran (auto) (0.00-0.03) X10*3/uL Absolute Neuts (auto) (2.0-8.3) x10*3/uL Absolute Nucleated RBC (0.0-0.012) X10*3/uL Nucleated RBC % (auto) (0.0-0.2) /100WBC VBG pH 7.48 H (7.32-7.43) VBG pCO2 40 mmHg VBG pO2 41 mmHg VBG HCO3 30 H (22-26) mmol/L VBG O2 Saturation 72.0 % VBG Base Excess 6.6 mmol/L Sodium (135-145) mmol/L Potassium (3.3-5.1) mmol/L Chloride (96-108) mmol/L Carbon Dioxide (22-29) mmol/L Anion Gap (12-20) BUN (9-16) mg/dL Creatinine (0.5-1.4) mg/dL Estim Creat Clear Calc Estimated GFR Random Glucose (60-115) mg/dL Calcium (8.4-10.2) mg/dL Magnesium (1.6-2.6) mg/dL Total Bilirubin (0.0-1.0) mg/dL AST (5-31) U/L ALT (0-31) U/L Alkaline Phosphatase (39-117) U/L Troponin I High Sens (<3.5-17.0) ng/L B-Natriuretic Peptide 442 H (<100) pg/mL Total Protein (6.5-8.0) g/dL Albumin (3.5-5.0) g/dL COVID-19 (ANEL) Negative (Negative) COVID-19 Clin Com See Note Independent Interpretation I performed an independent interpretation of an: EKG Interpretation: Independent interpretation the patient's 12 EKG 00:21 hours is as follows: Your interval, prolonged QRS interval of 134 milliseconds, prolonged QTC interval of 543 milliseconds, right bundle-branch block, no ST segment elevation, no ST segment depression, no significant T-wave abnormalities pain when compared to EKG dated 09/07/2022 the prolonged QTC interval is new, right bundle-branch block was old. My independent interpretation of the patient's one-view chest x-ray is as follows: No acute infiltrates, no increased interstitial markings, unchanged compared to July 2022. Discharge Plan Discharge Prescriptions: No Action sertraline 100 mg tablet 200 mg PO DAILY 90 Days Qty: 180 1RF quetiapine 50 mg tablet 50 mg PO BID 90 Days Qty: 180 1RF montelukast 10 mg tablet 10 mg PO BEDTIME Qty: 30 11RF Spiriva with HandiHaler 18 mcg capsule, w/inhalation device 1 cap inhalation DAILY Qty: 30 5RF furosemide 40 mg tablet 40 mg PO DAILY Qty: 30 3RF isosorbide mononitrate 30 mg tablet extended release 24 hr 30 mg PO DAILY 90 Days Qty: 90 3RF Protocol: Hold for SBP< HOLD for SBP < : 90 trazodone 50 mg tablet 50 mg PO BEDTIME PRN (Reason: Sleep) folic acid 1 mg Tablet 1 mg PO DAILY Qty: 90 4RF carvedilol 12.5 mg tablet 1 tab PO BID fluticasone furoate-vilanterol [Breo Ellipta] 100-25 mcg/dose Blister With Device 1 ea inhalation RDAILY Qty: 1 0RF prednisone 10 mg tablet 10 mg PO DIRECTED Qty: 30 0RF Rx Instructions: see taper instructions
--- NOTE | 2022-10-19 01:17 | PC.NURSE ---
this rn assumed care of pt @ 0005 20 g icv placed in L AC. pt tolerated well. personal development mentor utilized via ipad. dr crandall to bedside. for assessment. labwork obtained. ekg obtained RT to bedside pt medicated according to sonia pt boosted up in bed HOB 90 degree pt calm and cooperative. wheezing throughout bilaterally
[2022-10-19] MEDS: Ketorolac Tromethamine 15 MG/ML VIAL IVPUSH (01:23)
[2022-10-19] MEDS: Potassium Chloride ER 20 MEQ TAB.ER.PRT PO (01:38)
--- NOTE | 2022-10-19 01:45 | PC.NURSE ---
pt refused po potassium packet due to orange flavoring. this rn made dr crandall aware. po tab potassium ordered. pt medicated according to mar
[2022-10-19] MEDS: Albuterol/Iprat 2.5/0.5MG 3 ML AMPUL.NEB INHALE ×5 (02:02→19:00)
--- NOTE | 2022-10-19 02:24 | PC.NURSE ---
dr crandall aware of high bp. per md continue to monitor bp no new orders at this time
--- NOTE | 2022-10-19 04:15 | PC.NURSE ---
@ 0340 this rn rt to bedside. driver medic changing pt bedlinens due to incontinence. pt desat to 79% on 4LPM NC. pt pale asking for water. breathing treatment initiated spo2 82% per dr crandall pt placed on bipap @ 40%. scoop operator utilized at this time. once placed on bipap spo2 96-99%. pt placed back on periwick. repeat trop drawn and sent down to lab
--- NOTE | 2022-10-19 05:00 | PC.NURSE ---
this rn made md dr crandall aware of continued high bp awaiting orders at this time
--- NOTE | 2022-10-19 05:25 | PC.NURSE ---
this rn and rt at bedside. per dr crandall request. remove pt from bipap try nc. pt placed on 10 LPM highflow NC. pt tolerated well. bengali medical staff member at bedside for interpretation
[2022-10-19] MEDS: Furosemide 40 MG TABLET PO (05:50)
[2022-10-19] MEDS: Isosorbide Mononitrate 30 MG TAB.ER.24H PO (05:50)
[2022-10-19] MEDS: carvediloL 12.5 MG TABLET PO (05:51)
--- NOTE | 2022-10-19 06:25 | P.HPHOSP_ITS ---
History of Present Illness Date of Service: 10/19/22 Chief Complaint: SOB 62-year-old Frisian-speaking, with frequent admissions in the past for COPD exacerbation, with history of COPD on 4 L baseline oxygen, pulmonary hypertension, diabetes, HTN, depression comes into the hospital with complaints of acute onset shortness of breath, this started on day of presentation, she is also complaining of left chest pain. She also has a cough that is been going on for 2 weeks, increased sputum production. Next on arrival to the ED patient slightly hypertensive with blood pressure 174 over diastolic of 131, satting 90s on 4 L. patient otherwise denies any abdominal pain nausea vomiting, no diarrhea constipation, no urinary symptoms and no lower extremity edema. During immobilization while in the ED, patient became very hypoxic and had increased work of breathing, patient was placed on BiPAP transiently, currently off BiPAP and on high-flow nasal cannula. Labs otherwise show a normal WBC count, pH of 7.48 with a CO2 of 40, potassium of 2.8, BNP of 442 which is less than her usual labs otherwise unremarkable chest x-ray unremarkable patient will be admitted for COPD exacerbation Review of Systems Review of Systems: Yes all other systems are reviewed and are negative [facility] Medical History Anxiety Atelectasis, right Chronic respiratory failure Depression Diabetes Essential hypertension HFrEF (heart failure with reduced ejection fraction) HLD (hyperlipidemia) HTN (hypertension) Hypertensive emergency Non-rheumatic mitral regurgitation Nonischemic cardiomyopathy KELLIE (obstructive sleep apnea) Osteoporosis Pulmonary hypertension Respiratory failure with hypoxia and hypercapnia Severe chronic obstructive pulmonary disease Supraventricular tachycardia Tobacco abuse Family History Father No problems noted. 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 home services: No Unable to assess alcohol history related to: Unable to respond Alcohol intake: never Patient Tobacco Use Status: Never used Tobacco Tobacco use type: Cigarette Cigarettes Per Day: 4 Years Smoked: 50 +/- Smoked in Last 30 Days: No e-Cigarette/Vaping Use: Never Used Second Hand Smoke Exposure: No Use of substances other than those prescribed or required for medical reasons: No Advance Directives: Yes Advance Directives on File: Yes Advance Directives Date on File: 04/30/20 Patient : No service: No Current occupational status: disabled Cognitive needs: Yes Hearing needs: No Vision needs: No Meds Allergies Allergy/AdvReac Type Severity Reaction Status Date / Time nicotine [Nicotine] Allergy Mild ITCHING Verified 10/02/22 10:13 WITH THE PATCHES topiramate Allergy Mild inadequealte Verified 10/02/22 10:13 response Active Medications: Current Medications Pharmacy Consult (Consult Rx Perform Med Rec) 1 each MISCELLANE ONCE PRN PRN Reason: Consult order Home Medications Medication Instructions Recorded Confirmed Last Taken Type trazodone 50 mg tablet 50 mg PO BEDTIME PRN Sleep 03/08/20 08/11/22 03/29/21 History carvedilol 12.5 mg tablet 1 tab PO BID 07/22/22 08/11/22 07/22/22 History Physical Exam Vital Signs and Narrative: Vital Signs: Last Vital Signs Temp 98.2 F 10/19/22 00:05 Pulse 96 10/19/22 05:53 Resp 19 10/19/22 05:53 BP 177/106 H 10/19/22 05:53 Pulse Ox 95 10/19/22 05:53 O2 Del Method High Flow Nasal C annula 10/19/22 05:53 O2 Flow Rate 10 10/19/22 05:53 Oxygen Flow Rate 4 10/19/22 00:05 BMI result Body Mass Index 29.7 Const: General: cooperative and no acute distress Eyes: General: appearance normal, both eyes and all related structures Resp: Other: decreased breath sounds, no wheezing, appears comfortable at this time Effort & Inspection: normal respiratory effort Auscultation: clear to auscultation bilaterally Cardio: Rate: regular rate Rhythm: regular rhythm GI: Palpation (GI): Soft to palpation Auscultation: normal bowel sounds Skin: General skin exam: no rashes or lesions noted Neuro: Cognition (Neuro): normal cognition Extrem: General: Yes normal to inspection and Yes no pedal edema Results Labs 10/19/22 00:26 10/19/22 00:26 Labs: Laboratory Results - last 24 hr 10/19/22 10/19/22 10/19/22 00:26 00:26 00:26 MCV 82.0 MCH 25.3 L MCHC 30.9 L RDW 14.8 Plt Count 147 L MPV 10.6 Immature Gran % (Auto) 0.3 Neut % (Auto) 85.9 H Lymph % (Auto) 10.4 L Anderson % (Auto) 2.8 Eos % (Auto) 0.5 Baso % (Auto) 0.1 Lymph # (Auto) 0.9 L Anderson # (Auto) 0.3 Eos # (Auto) 0.0 Baso # (Auto) 0.0 Abs Immat Gran (auto) 0.03 Absolute Neuts (auto) 7.6 Absolute Nucleated RBC 0.000 Nucleated RBC % (auto) 0.0 VBG pH VBG pCO2 VBG pO2 VBG HCO3 VBG O2 Saturation VBG Base Excess Anion Gap 12 Estim Creat Clear Calc 55.7 Estimated GFR > 60 Random Glucose 189 H Calcium 9.5 Magnesium 1.9 Total Bilirubin 0.4 AST 17 ALT 9 Alkaline Phosphatase 151 H Troponin I High Sens 5.9 B-Natriuretic Peptide Total Protein 8.1 H Albumin 4.2 COVID-19 (ANEL) COVID-[facility] 10/19/22 10/19/22 10/19/22 00:26 00:26 00:31 MCV MCH MCHC RDW Plt Count MPV Immature Gran % (Auto) Neut % (Auto) Lymph % (Auto) Anderson % (Auto) Eos % (Auto) Baso % (Auto) Lymph # (Auto) Anderson # (Auto) Eos # (Auto) Baso # (Auto) Abs Immat Gran (auto) Absolute Neuts (auto) Absolute Nucleated RBC Nucleated RBC % (auto) VBG pH 7.48 H VBG pCO2 40 VBG pO2 41 VBG HCO3 30 H VBG O2 Saturation 72.0 VBG Base Excess 6.6 Anion Gap Estim Creat Clear Calc Estimated GFR Random Glucose Calcium Magnesium Total Bilirubin AST ALT Alkaline Phosphatase Troponin I High Sens B-Natriuretic Peptide 442 H Total Protein Albumin COVID-19 (ANEL) Negative [facility] See Note 10/19/22 03:58 MCV MCH MCHC RDW Plt Count MPV Immature Gran % (Auto) Neut % (Auto) Lymph % (Auto) Anderson % (Auto) Eos % (Auto) Baso % (Auto) Lymph # (Auto) Anderson # (Auto) Eos # (Auto) Baso # (Auto) Abs Immat Gran (auto) Absolute Neuts (auto) Absolute Nucleated RBC Nucleated RBC % (auto) VBG pH VBG pCO2 VBG pO2 VBG HCO3 VBG O2 Saturation VBG Base Excess Anion Gap Estim Creat Clear Calc Estimated GFR Random Glucose Calcium Magnesium Total Bilirubin AST ALT Alkaline Phosphatase Troponin I High Sens 9.0 D B-Natriuretic Peptide Total Protein Albumin COVID-19 (ANEL) COVID-19 Clin Com Imaging Radiologist's Impressions: Impressions Chest X-Ray 10/19/22 01:02 IMPRESSION: * No acute findings. * Emphysema. Assessment and Plan (1) Acute exacerbation of chronic obstructive pulmonary disease: Status: Acute Plan 62-year-old female past medical history of COPD, CHF, depression, presents the hospital with complaints of shortness of breath, cough and sputum production # acute COPD exacerbation - will treat with IV Solu-Medrol, DuoNeb, monitor respiratory status, baseline 4 L of oxygen # history of heart failure with reduced ejection fraction - 9 exacerbation - continue Lasix # hypertension - stable - continue home antihypertensives # KELLIE - CPAP noncompliant at home - CPAP at bedtime # depression - continue mood stabilizers DVT prophylaxis: Lovenox Given need for further evaluation and management of COPD exacerbation patient require minimum 2 nights inpatient hospital stay for further management and monitoring Time Spent With Patient Time: Total time managing care of this patient today ____ minutes. Quality Stroke Does the patient have a stroke diagnosis?: No VTE Prior VTE?: No VTE Risk Level:: Medical - moderate - high VTE Device Contraindication: Treatment Not Indicated VTE Drug Contraindication: N/A - Med Ordered
[2022-10-19] MEDS: methylPREDNISolone Sod Succ 40 MG/ML VIAL IVPUSH ×2 (07:18→17:43)
[2022-10-19] MEDS: Enoxaparin Sodium 40 MG/0.4 ML SYRINGE SUBCUT (07:18)
[2022-10-19] MEDS: 0.9 % Sodium Chloride Flush 3 ML SYRINGE IVFLUSH ×3 (07:19→23:36)
--- NOTE | 2022-10-19 07:29 | PC.NURSE ---
patient a&o, cardiac rehabilitation program director intact pt nsr, pt noted to be hypertensive- will notify provider, o2 titrated down to 4L 91-92%, pts lungs diminished throughout/crackles bases, poc obtained, pt medicated per order, pure wick patient/draining clear yellow urine, call ferris within reach will continue to monitor.
[2022-10-19 07:39] LABS: Glucose, Whole Blood 186 mg/dL (60-115)
--- NOTE | 2022-10-19 08:01 | PC.NURSE ---
Dr Weber notified about patient's blood pressure.
--- NOTE | 2022-10-19 08:02 | PC.NURSE ---
Floor called, nurse will call us back for report.
--- NOTE | 2022-10-19 09:07 | PHA.MEDREC ---
Pharmacy Consult ? Medication Reconciliation Pharmacy has completed the medication reconciliation. Utilized [employer] att[employer] services. Confirmed meds with patient. Patient does not take Breo Ellipta.
[2022-10-19] MEDS: Magnesium Oxide 400 MG TABLET PO ×2 (10:48→16:41)
[2022-10-19 11:01] LABS: Glucose, Whole Blood 200 mg/dL (60-115)
[2022-10-19] MEDS: Insulin Lispro 100 UNIT/ML 3 ML VIAL SUBCUT ×2 (12:01→16:41)
[2022-10-19] MEDS: Potassium Chloride ER 20 MEQ TAB.ER.PRT 40 MEQ PO (12:02)
[2022-10-19 12:16] LABS: Anion Gap 18 (12-20); Blood Urea Nitrogen 12 mg/dL (9-16); Calcium 10.1 mg/dL (8.4-10.2); Carbon Dioxide 25 mmol/L (22-29); Chloride 101 mmol/L (96-108); Creatinine Clr Calc Pharmacy 56.3; Estimated Glomerular Filt Rate > 60; Glucose Random 175 mg/dL (60-115); Potassium 3.8 mmol/L (3.3-5.1); Sodium 140 mmol/L (135-145)
--- NOTE | 2022-10-19 12:56 | PM.EVENT ---
Event Note Date of Service: 10/19/22 Event Note: Patient seen examined this morning with the hospitalist team see H&P. Seen and examined again: Says shortness of breath improving but not optimal yet, still has cough. physical exam: unchanged . Assessment and plan coordinated in H&P copd excerebation: continue nebs,steriods monitheath respiratory status Time Spent With Patient Time: Total time managing care of this patient today ____ minutes.
[2022-10-19 16:07] LABS: Glucose, Whole Blood 190 mg/dL (60-115)
--- NOTE | 2022-10-19 19:07 | PC.RT ---
Pt refusing CPAP; states she does not like the feeling. Educated pt on benefits with no change in decision
[2022-10-19 20:26] LABS: Glucose, Whole Blood 118 mg/dL (60-115)
[2022-10-20 04:00] VITALS: BP 144/83; PULSE 82; RESP 18; TEMP 36.2; O2SAT 100
[2022-10-20] MEDS: methylPREDNISolone Sod Succ 40 MG/ML VIAL IVPUSH (05:41)
[2022-10-20] MEDS: Enoxaparin Sodium 40 MG/0.4 ML SYRINGE SUBCUT (05:41)
[2022-10-20 06:32] LABS: MANUAL DIFF FLAG NO
[2022-10-20 06:41] LABS: Basophils Percent Auto 0.1 % (0-2); Hematocrit 36.1 % (37.0-47.0); Hemoglobin 11.1 g/dl (12.0-16.0); Imm Gran Abs Auto 0.05 X10*3/uL (0.00-0.03); Imm Gran Pct Auto 0.4 % (0.0-0.4); Lymphocytes Absolute Auto 1.7 X10*3/uL (1.2-4.9); Lymphocytes Percent Auto 14.6 % (20-40); Mean Corpuscular HGB Conc 30.7 g/dl (31.0-35.0); Mean Corpuscular Hemoglobin 25.5 pg (27.0-33.0); Mean Platelet Volume 11.8 fL (9.4-12.3); Monocytes Absolute Auto 0.6 X10*3/uL (0.1-1.2); Monocytes Percent Auto 5.5 % (2-11); Neutrophils Absolute Auto 9.1 x10*3/uL (2.0-8.3); Neutrophils Percent Auto 79.4 % (45-73); Platelet Count 191 X10*3/uL (160-400); Red Blood Count 4.35 X10*6/uL (4.20-5.50); Red Cell Distribution Width 14.9 % (11.0-16.0); White Blood Count 11.5 X10*3/uL (4.8-10.8)
[2022-10-20 06:53] LABS: Anion Gap 16 (12-20); Blood Urea Nitrogen 16 mg/dL (9-16); Calcium 10.2 mg/dL (8.4-10.2); Carbon Dioxide 25 mmol/L (22-29); Chloride 104 mmol/L (96-108); Creatinine Clr Calc Pharmacy 56.3; Estimated Glomerular Filt Rate > 60; Glucose Random 116 mg/dL (60-115); Sodium 141 mmol/L (135-145)
[2022-10-20 07:43] VITALS: BP 180/111; PULSE 80; RESP 17; TEMP 36.2; O2SAT 96
[2022-10-20 07:46] LABS: Glucose, Whole Blood 145 mg/dL (60-115)
[2022-10-20] MEDS: Albuterol/Iprat 2.5/0.5MG 3 ML AMPUL.NEB INHALE ×2 (08:03→11:29)
[2022-10-20 08:05] VITALS: PULSE 100; RESP 18; O2SAT 96
[2022-10-20] MEDS: Magnesium Oxide 400 MG TABLET PO (08:49)
[2022-10-20] MEDS: 0.9 % Sodium Chloride Flush 3 ML SYRINGE IVFLUSH (08:50)
[2022-10-20] MEDS: Folic Acid 1 MG TABLET PO (09:34)
[2022-10-20] MEDS: Furosemide 40 MG TABLET PO (09:34)
[2022-10-20] MEDS: Sertraline HCL 100 MG TABLET 200 MG PO (09:34)
[2022-10-20] MEDS: Isosorbide Mononitrate 30 MG TAB.ER.24H PO (09:34)
[2022-10-20] MEDS: QUEtiapine Fumarate 50 MG TABLET PO (09:35)
[2022-10-20] MEDS: carvediloL 12.5 MG TABLET PO (09:35)
--- NOTE | 2022-10-20 10:38 | P.DS_ITS ---
DS: Providers Provider Date of Service: 10/20/22 Date of admission: 10/19/22 06:23 Primary care physician: Analisa Chavez MD DS: Diagnosis Discharge Diagnosis (1) Acute exacerbation of chronic obstructive pulmonary disease: Status: Acute DS: Summary Hospital Course Hospital Course: 62-year-old Citizen Of [place]-speaking, with frequent admissions in the past for COPD exacerbation, with history of COPD on 4 L baseline oxygen, pulmonary hypertension, diabetes, HTN, depression comes into the hospital with complaints of acute onset shortness of breath, this started on day of presentation, she is also complaining of left chest pain.? She also has a cough that is been going on for 2 weeks, increased sputum production.? Next on arrival to the ED patient slightly hypertensive with blood pressure 174 over diastolic of 131, satting 90s on 4 L. patient otherwise denies any abdominal pain nausea vomiting, no diarrhea constipation, no urinary symptoms and no lower extremity edema. During immobilization while in the ED, patient became very hypoxic and had increased work of breathing, patient was placed on BiPAP transiently, currently off BiPAP and on high-flow nasal cannula. ? Labs otherwise show a normal WBC count, pH of 7.48 with a CO2 of 40, potassium of 2.8, BNP of 442 which is less than her usual ?labs otherwise unremarkable ?chest x-ray unremarkable ?patient will be admitted for COPD exacerbation. Hospital course: Patient was admitted for chronic respiratory failure and COPD exacerbation(at home patient is on 4-5 L oxygen): Patient was started on IV steroid, nebs, oxygen sports subsequently with supportive care patient seems to be improved significantly currently at her baseline on 4 L oxygen, sats are 96%, feeling much better, no fever or cough. Patient will be going home with p.o. steroids. plan: complete course of prednisone 40 mg po daily x4 days . Follow-up with PCP outpatient. Above management discussed with the patient rate and she understand and in agreement with the plan, time spent 50 minute. Time Spent with Patient Time attestation: Total time managing care of this patient today ____ minutes. Discharge coordination time: Greater than 30 minutes Quality: Safe Use of Opioids Does Pt have an Active Cancer Diagnosis on the Problem List?: No Quality: Stroke Does the patient have a stroke diagnosis?: No Physical Exam Vital Signs: Vital Signs: Last Vital Signs Temp 97.2 F 10/20/22 07:43 Pulse 100 10/20/22 08:05 Resp 18 10/20/22 08:05 BP 180/111 H 10/20/22 07:43 Pulse Ox 96 10/20/22 07:43 O2 Del Method Nasal Cannula 10/20/22 07:43 O2 Flow Rate 4 10/20/22 07:43 Oxygen Flow Rate 4 10/19/22 00:05 BMI result Body Mass Index 29.7 Appearance: Alert.? Oriented X3.? not in distress.? cvs: rrr, [id number]. res: clear to auscultation ,no rhonchii or wheezing abd: no rebound or guarding ,nt, bs present. ext pulses present , no cyanosis . neuro: axo3 , nonfocal. We DS: Data Data Completed and Pending Completed studies during hospitalization [Text1]: Procedures Assistance with Respiratory Ventilation, Less than 24 Consecutive Hours, Continuous Positive Airway Pressure (07/24/22) Labs on day of discharge: Laboratory Results - last 24 hr 10/19/22 10/19/22 10/19/22 10:56 11:43 16:03 WBC RBC Hgb Hct MCV MCH MCHC RDW Plt Count MPV Immature Gran % (Auto) Neut % (Auto) Lymph % (Auto) Bates % (Auto) Eos % (Auto) Baso % (Auto) Lymph # (Auto) Bates # (Auto) Eos # (Auto) Baso # (Auto) Abs Immat Gran (auto) Absolute Neuts (auto) Absolute Nucleated RBC Nucleated RBC % (auto) Sodium 140 Potassium 3.8 D Chloride 101 Carbon Dioxide 25 Anion Gap 18 BUN 12 Creatinine 0.87 Estim Creat Clear Calc 56.3 Estimated GFR > 60 POC Glucose 200 H 190 H Random Glucose 175 H Calcium 10.1 D 10/19/22 10/20/22 10/20/22 19:33 05:55 05:55 WBC 11.5 H RBC 4.35 Hgb 11.1 L Hct 36.1 L MCV 83.0 MCH 25.5 L MCHC 30.7 L RDW 14.9 Plt Count 191 D MPV 11.8 Immature Gran % (Auto) 0.4 Neut % (Auto) 79.4 H Lymph % (Auto) 14.6 L Bates % (Auto) 5.5 Eos % (Auto) 0.0 Baso % (Auto) 0.1 Lymph # (Auto) 1.7 Bates # (Auto) 0.6 Eos # (Auto) 0.0 Baso # (Auto) 0.0 Abs Immat Gran (auto) 0.05 H Absolute Neuts (auto) 9.1 H Absolute Nucleated RBC 0.000 Nucleated RBC % (auto) 0.0 Sodium 141 Potassium 4.0 Chloride 104 Carbon Dioxide 25 Anion Gap 16 BUN 16 Creatinine 0.87 Estim Creat Clear Calc 56.3 Estimated GFR > 60 POC Glucose 118 H Random Glucose 116 H Calcium 10.2 10/20/22 07:42 WBC RBC Hgb Hct MCV MCH MCHC RDW Plt Count MPV Immature Gran % (Auto) Neut % (Auto) Lymph % (Auto) Bates % (Auto) Eos % (Auto) Baso % (Auto) Lymph # (Auto) Bates # (Auto) Eos # (Auto) Baso # (Auto) Abs Immat Gran (auto) Absolute Neuts (auto) Absolute Nucleated RBC Nucleated RBC % (auto) Sodium Potassium Chloride Carbon Dioxide Anion Gap BUN Creatinine Estim Creat Clear Calc Estimated GFR POC Glucose 145 H Random Glucose Calcium Imaging Chest x-ray: Radiologist's impression: ITS Impressions Chest X-Ray 10/19/22 01:02 IMPRESSION: * No acute findings. * Emphysema. Discharge Plan Discharge Anticipated Discharge Date/Time: 10/20/22 10:32 Patient Disposition: Home, Self-Care Discharge Diagnosis: COPD exacerbation. Referrals: Analisa Carr MD [Primary Care Provider] - 1 Week Discharge Medications: New prednisone 20 mg tablet 40 mg PO DAILY Qty: 8 0RF Continued sertraline 100 mg tablet 200 mg PO DAILY 90 Days Qty: 180 1RF quetiapine 50 mg tablet 50 mg PO BID 90 Days Qty: 180 1RF montelukast 10 mg tablet 10 mg PO BEDTIME Qty: 30 11RF Spiriva with HandiHaler 18 mcg capsule, w/inhalation device 1 cap inhalation DAILY Qty: 30 5RF furosemide 40 mg tablet 40 mg PO DAILY Qty: 30 3RF isosorbide mononitrate 30 mg tablet extended release 24 hr 30 mg PO DAILY 90 Days Qty: 90 3RF Protocol: Hold for SBP< HOLD for SBP < : 90 trazodone 50 mg tablet 50 - 100 mg PO BEDTIME PRN (Reason: Sleep) folic acid 1 mg Tablet 1 mg PO DAILY Qty: 90 4RF carvedilol 12.5 mg tablet 1 tab PO BID Discharge Orders: Discharge Order (Routine); Ordered 10/20/22 Ordered By: Hamilton Weber Diet: Advance to usual diet Activity on Discharge: As tolerated Stand Alone Forms: Patient Portal Discharge page Care Plan Goals: Patient was admitted for chronic respiratory failure and COPD exacerbation: Patient was started on IV steroid, nebs, oxygen sports subsequently with supportive care patient seems to be improved significantly currently at her baseline on 4 L oxygen, sats are 96%, feeling much better, no fever or cough. Patient will be going home with p.o. steroids. Health Concerns: As above. Plan of Treatment: As above. Assessment: As above.
[2022-10-20 11:19] LABS: Glucose, Whole Blood 190 mg/dL (60-115)
--- NOTE | 2022-10-20 11:28 | MHC.CM.PN ---
Addendum entered by Selma Boyd 10/20/22 11:43: Discharge today. 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 She uses a walker. Home oxygen in place. DP home with resumption of [employer] services. Patient will transport via BLS.
[2022-10-20 11:31] VITALS: PULSE 91; RESP 16; O2SAT 94
[2022-10-20] MEDS: Insulin Lispro 100 UNIT/ML 3 ML VIAL SUBCUT (12:11)
[2022-10-20 14:05] VITALS: BP 138/94; PULSE 86
== END 2022-10-20 14:12 | disposition home or self-care (01) | DRG 140 ==
LOC: HO.ED 10-19 03:17 → HO.EDOVER 10-19 06:28 → HO.IMC 10-19 07:36 → HO.S3 10-19 13:40
PROVIDERS: Physician Assistant Medical; Admitting Provider Internal Medicine; Emergency Provider Emergency Medicine Emergency Medical Services; PCP Internal Medicine; Visit Provider Internal Medicine
DX: J44.1 Chronic obstructive pulmonary disease with (acute) exacerbation (principal); J96.11 Chronic respiratory failure with hypoxia; I50.22 Chronic systolic (congestive) heart failure; I11.0 Hypertensive heart disease with heart failure; Z99.81 Dependence on supplemental oxygen; F17.210 Nicotine dependence, cigarettes, uncomplicated; E11.9 Type 2 diabetes mellitus without complications; Z20.822 Contact with and (suspected) exposure to COVID-19; F32.A Depression, unspecified; G47.33 Obstructive sleep apnea (adult) (pediatric); Z91.199 Patient's noncompliance with other medical treatment and regimen due to unspecified reason; Z71.6 Tobacco abuse counseling; Z79.899 Other long term (current) drug therapy
CPT/HCPCS: 36415; 71045; 80048; 80053; 82803; 82947; 83735; 83880; 84484; 85025; 87635; 93005; 94640; 99285; J1650; J1885; J2920; J2930

== ENCOUNTER 2022-11-17 20:01 | Emergency (ER) | payer OTHER, SELFPAY ==
--- NOTE | ~2022-11-17 | XR_ITS ---
EXAMINATION: XR CHEST CLINICAL INFORMATION: Shortness of breath COMPARISON: Chest x-ray on 10/19/2022 TECHNIQUE: Frontal view of the chest was obtained. FINDINGS: The cardiac silhouette is normal. There is mild diffuse bronchial wall thickening and bibasilar atelectasis. There are no pleural effusions or pneumothoraces. The bones and soft tissues are unremarkable for the patient's age. XR/XR chest 1V IMPRESSION: Bronchial wall thickening may be infectious and/or inflammatory in etiology.
[2022-11-17 20:23] VITALS: BMI 25.9
--- NOTE | 2022-11-17 20:23 | ECG_ITS ---
Test Reason : SOB Blood Pressure : / mmHG Vent. Rate : 094 BPM Atrial Rate : 094 BPM P-R Int : 150 ms QRS Dur : 132 ms QT Int : 424 ms P-R-T Axes : 028 020 -26 degrees QTc Int : 530 ms Normal sinus rhythm Non-specific intra-ventricular conduction block T wave abnormality, consider inferior ischemia Abnormal ECG When compared with ECG of 19-OCT-2022 00:21, Fusion complexes are no longer Present Non-specific intra-ventricular conduction block has replaced Right bundle branch block Referred By: Sonia Bateman Electronically Signed By:Kemar Curry
[2022-11-17 20:24] VITALS: BP 155/86; PULSE 95; RESP 19; TEMP 36.8; O2SAT 94
--- NOTE | 2022-11-17 20:48 | ED.SOB ---
HPI - SOB/Dyspnea General Chief Complaint: Dyspnea Stated Complaint: sob, per ems Time Seen by Provider: 11/17/22 20:23 Source: patient, EMS and spanish interpreter/translator Mode of arrival: EMS History of Present Illness HPI Narrative: 62-year-old female with medical history of COPD, CHF and arrives via EMS stating that she felt like she was not getting oxygen, went to check her large oxygen tank and noted that it was in the read. Patient was disc neck and noted to be 66% oxygenation on EMS arrival but is currently much improved after being placed back on her home oxygen levels. Patient also reports that she has been experiencing fevers and chills at home for the past couple of days but denies any new cough for increased phlegm production and denies any GI or symptoms. Patient states that she is not called for placement of the oxygen because the people at the company do not speak [place]. Related Data Home Medications Medication Instructions Recorded Confirmed trazodone 50 mg tablet 50 - 100 mg PO BEDTIME PRN Sleep 03/08/20 10/19/22 carvedilol 12.5 mg tablet 1 tab PO BID 07/22/22 10/19/22 Previous Rx's Medication Instructions Recorded quetiapine 50 mg tablet 50 mg PO BID 90 days #180 tabs 12/18/20 sertraline 100 mg tablet 200 mg PO DAILY 90 days #180 tabs 12/18/20 montelukast 10 mg tablet 10 mg PO BEDTIME #30 tabs 11/01/21 tiotropium bromide 18 mcg capsule 1 cap inhalation DAILY #30 ea 06/29/22 with inhalation device (Spiriva with HandiHaler) furosemide 40 mg tablet 40 mg PO DAILY #30 tabs 07/03/22 folic acid 1 mg tablet 1 mg PO DAILY #90 tabs 09/04/22 isosorbide mononitrate 30 mg 30 mg PO DAILY 90 days #90 tabs 10/05/22 tablet,extended release 24 hr prednisone 20 mg tablet 40 mg PO DAILY #8 tabs 10/20/22 Allergies Allergy/AdvReac Type Severity Reaction Status Date / Time nicotine [Nicotine] Allergy Mild ITCHING Verified 10/02/22 10:13 WITH THE PATCHES topiramate Allergy Mild inadequealte Verified 10/02/22 10:13 response Review of Systems Review of Systems: Pertinent positives and negatives as stated in HPI PMFSH Past Medical History Source: nursing notes reviewed Medical History Anxiety Atelectasis, right Chronic respiratory failure Depression Diabetes Essential hypertension HFrEF (heart failure with reduced ejection fraction) HLD (hyperlipidemia) HTN (hypertension) Hypertensive emergency Non-rheumatic mitral regurgitation Nonischemic cardiomyopathy KELLIE (obstructive sleep apnea) Osteoporosis Pulmonary hypertension Respiratory failure with hypoxia and hypercapnia Severe chronic obstructive pulmonary disease Supraventricular tachycardia Tobacco abuse Surgical History Bilateral ankle fractures History of total abdominal hysterectomy Family History Family History Father No problems noted. 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 home services: No Unable to assess alcohol history related to: Unable to respond Alcohol intake: never Patient Tobacco Use Status: Current everyday Tobacco user Tobacco use type: Cigarette Cigarettes Per Day: 4 Years Smoked: 50 +/- Smoked in Last 30 Days: No e-Cigarette/Vaping Use: Never Used Second Hand Smoke Exposure: No Use of substances other than those prescribed or required for medical reasons: No Advance Directives: Yes Advance Directives on File: Yes Advance Directives Date on File: 04/30/20 Patient : No service: No Current occupational status: disabled Cognitive needs: Yes Hearing needs: No Vision needs: No Physical Exam Vital Signs: Vital Signs: Last Vital Signs Temp 98.2 F 11/18/22 01:22 Pulse 80 11/18/22 01:40 Resp 16 11/18/22 01:40 BP 143/88 H 11/18/22 01:22 Pulse Ox 94 11/18/22 01:22 O2 Del Method Nasal Cannula 11/18/22 01:22 O2 Flow Rate 2 11/18/22 01:22 BMI result Body Mass Index 25.9 VITAL SIGNS: Reviewed. GENERAL: Chronically ill, well nourished, in no acute distress. HEAD: Normocephalic/atraumatic EYES: PERRLA, EOMI EARS: Ext canals without abnormality NOSE: Nares patent bilateral OROPHARYNX: no oral lesions noted, posterior pharynx clear NECK: Supple, no adenopathy LUNGS: Tachypnea, no expiratory wheeze but noted bibasilar rales. SpO2<94> 2 L via nasal cannula CARDIOVASCULAR: Regular rate and rhythm without noted murmurs, no JVD or lower extremity edema. ABDOMEN: Soft, non-tender, non-distended with bowel sounds. MUSCULOSKELETAL: No tenderness, deformities, or effusions noted on gross inspection. EXTREMITIES: No cyanosis, clubbing or edema. SKIN: Inspection of the skin reveals no rashes NEUROLOGIC: Alert and oriented x 4. Strength and sensation to light touch were grossly intact x 4. Medications Administered Discontinued Medications Generic Name Dose Route Start Last Admin Trade Name Freq PRN Reason Stop Dose Admin Albuterol/Ipratropium 3 ml 11/17/22 20:51 11/17/22 21:28 Albuterol/Iprat 2.5/0.5mg 3 Ml Ampul.Neb INHALE 11/17/22 20:52 3 ml ONCE ONE Administration Albuterol/Ipratropium 3 ml 11/18/22 00:59 11/18/22 01:40 Albuterol/Iprat 2.5/0.5mg 3 Ml Ampul.Neb INHALE 11/18/22 01:00 3 ml ONCE ONE Administration Furosemide 60 mg 11/17/22 22:54 11/17/22 23:38 Furosemide 100 Mg/10 Ml Vial IVPUSH 11/17/22 22:55 60 mg ONCE ONE Administration Protocol Magnesium Sulfate/Dextrose 1 gm in 100 mls @ 300 mls/hr 11/17/22 22:55 11/18/22 00:15 Magnesium Sulfate/D5w IV 11/17/22 23:14 Infused ONCE ONE Infusion Potassium Chloride 10 meq in 100 mls @ 100 mls/hr 11/17/22 23:00 11/18/22 01:32 Potassium Chloride/H20 IV 11/18/22 00:59 100 mls/hr Q1H WALDEMAR Administration Methylprednisolone Sodium Succinate 125 mg 11/18/22 00:59 11/18/22 01:35 Methylprednisolone Sod Succ 125 Mg/2 Ml Vial IVPUSH 11/18/22 01:00 125 mg ONCE ONE Administration Potassium Chloride 60 meq 11/17/22 22:55 11/17/22 23:44 Potassium Chloride Er 20 Meq Tab.Er.Prt PO 11/17/22 22:56 Not Given ONCE ONE Medical Decision Making Medical Decision Making [facility] Narrative: 2049: 62-year-old female with history and clinical presentation, DDX: COPD, CHF, pneumonia, mechanical malfunction. I reviewed all investigations, there is no evidence pneumonia as patient is afebrile here without leukocytosis but chronic left shift is noted, normocytic anemia is chronically stable and no thrombocytopenia. VBG demonstrates non acidotic with mild hypercapnia-58, chemistry indices demonstrate a mild hypokalemia which will be repleted with 2-10 mEQ via IV and 60 mEq orally, patient will also receive 1 g of magnesium sulfate. Otherwise, no worsening renal failure, patient is mildly fluid overloaded and will receive 60 mg of Lasix IV and I acknowledged that this will be challenging given the fact that I am also needing to replete the potassium. Will monitor closely, patient will be unable to return home this evening regardless because she has no home oxygen. The elevated troponin levels that I appreciate are felt to be secondary to patient's hypoxia that she experienced when off of her oxygen at home, but will repeat. There are no acute EKG changes to suggest that this is secondary to ACS. 0015: Troponin elevation to 511.90, will contact cardiology and repeat EKG. Pt reports chest pain for 1 week. 0038: I discussed case with Cardiology, Dr. Curry, who agrees that this is likely demand given patient's significant hypoxia that she experienced in home. Therefore, at this time not going to proceed with treatment as an and STEMI. Patient did have lactic acid and blood cultures ordered, however they were not drawn and patient now refusing additional lab draw. Repeat VBG shows mild trend upwards of the pCO2 the patient is otherwise oxygenating well. Urinalysis negative for acute infection. 0130: I discussed with the inpatient hospitalist who will evaluate the patient and give recommendations regarding admission. Patient will need to be kept overnight regardless due to requiring case management involvement to facilitate oxygen tank exchange. 0150: Patient appears comfortable and hospitalist feels that patient is likely at baseline and she endorses that she is feeling much better. Will follow-up with repeat BMP after potassium infusions have completed. Case management consult was placed with request for outpatient community navigator or some of the can help the patient get her home oxygen replaced as well as getting it exchanged on regular basis. Patient placed in physician observation because the patient needed more time for case management consultation. At the time observation was started the patient's vital signs were stable, patient is alert and oriented, neuro: Nonfocal, CV RRR, lungs clear Differential Diagnosis Differential Diagnoses: The differential diagnosis associated with the presentation includes Please see the discussion above Admission/Observation Consideration of admission/observation: Escalation of care including admission/observation considered Please see the discussion above Consult Healthcare Provider Management of the patient was discussed with: Hospitalist Please see the discussion above Lab Data MDM Lab Attestation statement: I reviewed the patient's lab results. Please see the discussion above 11/17/22 21:10 11/17/22 21:10 Labs: Lab Results 11/17/22 11/17/22 11/17/22 Range/Units 18:24 21:10 21:10 WBC 7.8 (4.8-10.8) X10*3/uL RBC 4.22 (4.20-5.50) X10*6/uL Hgb 10.9 L (12.0-16.0) g/dl Hct 35.3 L (37.0-47.0) % MCV 83.6 (80.0-98.0) fL MCH 25.8 L (27.0-33.0) pg MCHC 30.9 L (31.0-35.0) g/dl RDW 14.6 (11.0-16.0) % Plt Count 170 (160-400) X10*3/uL MPV 10.6 (9.4-12.3) fL Immature Gran % (Auto) 0.3 (0.0-0.4) % Neut % (Auto) 77.5 H (45-73) % Lymph % (Auto) 16.4 L (20-40) % [place] % (Auto) 4.9 (2-11) % Eos % (Auto) 0.8 (0-4) % Baso % (Auto) 0.1 (0-2) % Lymph # (Auto) 1.3 (1.2-4.9) X10*3/uL [place] # (Auto) 0.4 (0.1-1.2) X10*3/uL Eos # (Auto) 0.1 (0.0-0.4) X10*3/uL Baso # (Auto) 0.0 (0.0-0.2) X10*3/uL Abs Immat Gran (auto) 0.02 (0.00-0.03) X10*3/uL Absolute Neuts (auto) 6.0 (2.0-8.3) x10*3/uL Absolute Nucleated RBC 0.000 (0.0-0.012) X10*3/uL Nucleated RBC % (auto) 0.0 (0.0-0.2) /100WBC PT 11.0 (10.0-13.1) SEC INR 1.0 (0.9-1.1) VBG pH (7.32-7.43) VBG pCO2 mmHg VBG pO2 mmHg VBG HCO3 (22-26) mmol/L VBG O2 Saturation % VBG Base Excess mmol/L Sodium 144 (135-145) mmol/L Potassium 2.8 L D (3.3-5.1) mmol/L Chloride 102 (96-108) mmol/L Carbon Dioxide 31 H (22-29) mmol/L Anion Gap 14 (12-20) BUN 12 (9-16) mg/dL Creatinine 0.83 (0.5-1.4) mg/dL Estim Creat Clear Calc 65.1 Estimated GFR > 60 Random Glucose 152 H (60-115) mg/dL Calcium 9.1 D (8.4-10.2) mg/dL Magnesium 1.8 (1.6-2.6) mg/dL Total Bilirubin 0.3 (0.0-1.0) mg/dL AST 19 (5-31) U/L ALT 11 (0-31) U/L Alkaline Phosphatase 143 H (39-117) U/L Troponin I High Sens (<3.5-17.0) ng/L B-Natriuretic Peptide (<100) pg/mL Total Protein 7.1 (6.5-8.0) g/dL Albumin 3.8 (3.5-5.0) g/dL Urine Color Urine Appearance Urine pH (5.0-9.0) Ur Specific [place] (1.005-1.025) Urine Protein (Neg-Trace) mg/dL Urine Glucose (UA) (Negative) mg/dL Urine Ketones (Negative) mg/dL Urine Blood (Negative) Urine Nitrite (Negative) Ur Leukocyte Esterase (Negative) Urine RBC (0-2) /HPF Urine WBC (0-5) /HPF Ur Squamous Epith Cells (0-2) /HPF Urine Bacteria (None Seen) Hyaline Casts (0-2) /LPF 11/17/22 11/17/22 11/17/22 Range/Units 21:10 21:10 21:18 WBC (4.8-10.8) X10*3/uL RBC (4.20-5.50) X10*6/uL Hgb (12.0-16.0) g/dl Hct (37.0-47.0) % MCV (80.0-98.0) fL MCH (27.0-33.0) pg MCHC (31.0-35.0) g/dl RDW (11.0-16.0) % Plt Count (160-400) X10*3/uL MPV (9.4-12.3) fL Immature Gran % (Auto) (0.0-0.4) % Neut % (Auto) (45-73) % Lymph % (Auto) (20-40) % [place] % (Auto) (2-11) % Eos % (Auto) (0-4) % Baso % (Auto) (0-2) % Lymph # (Auto) (1.2-4.9) X10*3/uL [place] # (Auto) (0.1-1.2) X10*3/uL Eos # (Auto) (0.0-0.4) X10*3/uL Baso # (Auto) (0.0-0.2) X10*3/uL Abs Immat Gran (auto) (0.00-0.03) X10*3/uL Absolute Neuts (auto) (2.0-8.3) x10*3/uL Absolute Nucleated RBC (0.0-0.012) X10*3/uL Nucleated RBC % (auto) (0.0-0.2) /100WBC PT (10.0-13.1) SEC INR (0.9-1.1) VBG pH 7.42 (7.32-7.43) VBG pCO2 58 mmHg VBG pO2 50 mmHg VBG HCO3 38 H (22-26) mmol/L VBG O2 Saturation 81.0 % VBG Base Excess 12.1 mmol/L Sodium (135-145) mmol/L Potassium (3.3-5.1) mmol/L Chloride (96-108) mmol/L Carbon Dioxide (22-29) mmol/L Anion Gap (12-20) BUN (9-16) mg/dL Creatinine (0.5-1.4) mg/dL Estim Creat Clear Calc Estimated GFR Random Glucose (60-115) mg/dL Calcium (8.4-10.2) mg/dL Magnesium (1.6-2.6) mg/dL Total Bilirubin (0.0-1.0) mg/dL AST (5-31) U/L ALT (0-31) U/L Alkaline Phosphatase (39-117) U/L Troponin I High Sens 176.0 H* D (<3.5-17.0) ng/L B-Natriuretic Peptide 316 H (<100) pg/mL Total Protein (6.5-8.0) g/dL Albumin (3.5-5.0) g/dL Urine Color Urine Appearance Urine pH (5.0-9.0) Ur Specific [place] (1.005-1.025) Urine Protein (Neg-Trace) mg/dL Urine Glucose (UA) (Negative) mg/dL Urine Ketones (Negative) mg/dL Urine Blood (Negative) Urine Nitrite (Negative) Ur Leukocyte Esterase (Negative) Urine RBC (0-2) /HPF Urine WBC (0-5) /HPF Ur Squamous Epith Cells (0-2) /HPF Urine Bacteria (None Seen) Hyaline Casts (0-2) /LPF 11/17/22 11/18/22 11/18/22 Range/Units 23:49 00:49 01:00 WBC (4.8-10.8) X10*3/uL RBC (4.20-5.50) X10*6/uL Hgb (12.0-16.0) g/dl Hct (37.0-47.0) % MCV (80.0-98.0) fL MCH (27.0-33.0) pg MCHC (31.0-35.0) g/dl RDW (11.0-16.0) % Plt Count (160-400) X10*3/uL MPV (9.4-12.3) fL Immature Gran % (Auto) (0.0-0.4) % Neut % (Auto) (45-73) % Lymph % (Auto) (20-40) % [place] % (Auto) (2-11) % Eos % (Auto) (0-4) % Baso % (Auto) (0-2) % Lymph # (Auto) (1.2-4.9) X10*3/uL [place] # (Auto) (0.1-1.2) X10*3/uL Eos # (Auto) (0.0-0.4) X10*3/uL Baso # (Auto) (0.0-0.2) X10*3/uL Abs Immat Gran (auto) (0.00-0.03) X10*3/uL Absolute Neuts (auto) (2.0-8.3) x10*3/uL Absolute Nucleated RBC (0.0-0.012) X10*3/uL Nucleated RBC % (auto) (0.0-0.2) /100WBC PT (10.0-13.1) SEC INR (0.9-1.1) VBG pH 7.41 (7.32-7.43) VBG pCO2 62 mmHg VBG pO2 29 mmHg VBG HCO3 40 H (22-26) mmol/L VBG O2 Saturation 38.0 % VBG Base Excess 13.2 mmol/L Sodium (135-145) mmol/L Potassium (3.3-5.1) mmol/L Chloride (96-108) mmol/L Carbon Dioxide (22-29) mmol/L Anion Gap (12-20) BUN (9-16) mg/dL Creatinine (0.5-1.4) mg/dL Estim Creat Clear Calc Estimated GFR Random Glucose (60-115) mg/dL Calcium (8.4-10.2) mg/dL Magnesium (1.6-2.6) mg/dL Total Bilirubin (0.0-1.0) mg/dL AST (5-31) U/L ALT (0-31) U/L Alkaline Phosphatase (39-117) U/L Troponin I High Sens 511.9 H* D (<3.5-17.0) ng/L B-Natriuretic Peptide (<100) pg/mL Total Protein (6.5-8.0) g/dL Albumin (3.5-5.0) g/dL Urine Color Yellow Urine Appearance Clear Urine pH 7.5 (5.0-9.0) Ur Specific [place] 1.010 (1.005-1.025) Urine Protein Negative (Neg-Trace) mg/dL Urine Glucose (UA) Negative (Negative) mg/dL Urine Ketones Negative (Negative) mg/dL Urine Blood Negative (Negative) Urine Nitrite Negative (Negative) Ur Leukocyte Esterase Small (1+) H (Negative) Urine RBC 0-2 (0-2) /HPF Urine WBC 0-5 (0-5) /HPF Ur Squamous Epith Cells 0-2 (0-2) /HPF Urine Bacteria None Seen (None Seen) Hyaline Casts 0-2 (0-2) /LPF Independent Interpretation I performed an independent interpretation of an: EKG Interpretation: Normal sinus rhythm, HR-94, right bundle branch block at baseline, no STEMI, HI within normal limits, QRS-132, QTC chronically stable at 530 Radiology Impression Radiologist Impression: No pneumonia, but bronchial wall thickening that is likely inflammatory nature given patient's underlying COPD. External Record Review External record reviewed: Outpatient record and Prior outpatient labs Chronic Conditions Patient?s care impacted by: Other COPD, CHF Procedures EJ/Peripheral Line Arm R: Time Out Performed: No Skin Cleansed in Sterile Fashion: Yes Size (gauge): 20 IV Secured and Dressing Applied: Yes Patient Tolerated Procedure: well Additional Comments: Peripheral line was placed via ultrasound guidance. Critical Care Time Critical Care Time Critical Care Time: Yes Total Critical Care Time: 45 Attestation: I personally attest to this time spent taking care of the patient. Discharge Plan Discharge Clinical Impression: CHF exacerbation, COPD (chronic obstructive pulmonary disease), Hypokalemia Patient Disposition: Still a Patient Prescriptions: No Action sertraline 100 mg tablet 200 mg PO DAILY 90 Days Qty: 180 1RF quetiapine 50 mg tablet 50 mg PO BID 90 Days Qty: 180 1RF montelukast 10 mg tablet 10 mg PO BEDTIME Qty: 30 11RF Spiriva with HandiHaler 18 mcg capsule, w/inhalation device 1 cap inhalation DAILY Qty: 30 5RF furosemide 40 mg tablet 40 mg PO DAILY Qty: 30 3RF isosorbide mononitrate 30 mg tablet extended release 24 hr 30 mg PO DAILY 90 Days Qty: 90 3RF Protocol: Hold for SBP< HOLD for SBP < : 90 trazodone 50 mg tablet 50 - 100 mg PO BEDTIME PRN (Reason: Sleep) folic acid 1 mg Tablet 1 mg PO DAILY Qty: 90 4RF carvedilol 12.5 mg tablet 1 tab PO BID prednisone 20 mg tablet 40 mg PO DAILY Qty: 8 0RF
[2022-11-17 21:24] LABS: MANUAL DIFF FLAG NO; Venous Blood Gas Refer to POC result
[2022-11-17 21:25] LABS: Basophils Percent Auto 0.1 % (0-2); Eosinophils Absolute Auto 0.1 X10*3/uL (0.0-0.4); Eosinophils Percent Auto 0.8 % (0-4); Hematocrit 35.3 % (37.0-47.0); Hemoglobin 10.9 g/dl (12.0-16.0); Imm Gran Abs Auto 0.02 X10*3/uL (0.00-0.03); Imm Gran Pct Auto 0.3 % (0.0-0.4); Lymphocytes Absolute Auto 1.3 X10*3/uL (1.2-4.9); Lymphocytes Percent Auto 16.4 % (20-40); Mean Corpuscular HGB Conc 30.9 g/dl (31.0-35.0); Mean Corpuscular Hemoglobin 25.8 pg (27.0-33.0); Mean Corpuscular Volume 83.6 fL (80.0-98.0); Mean Platelet Volume 10.6 fL (9.4-12.3); Monocytes Absolute Auto 0.4 X10*3/uL (0.1-1.2); Monocytes Percent Auto 4.9 % (2-11); Neutrophils Percent Auto 77.5 % (45-73); Platelet Count 170 X10*3/uL (160-400); Red Blood Count 4.22 X10*6/uL (4.20-5.50); Red Cell Distribution Width 14.6 % (11.0-16.0); White Blood Count 7.8 X10*3/uL (4.8-10.8)
[2022-11-17 21:25] LABS: VBG Base Excess 12.1 mmol/L; VBG HCO3 38 mmol/L (22-26); VBG pCO2 58 mmHg; VBG pH 7.42 (7.32-7.43); VBG pO2 50 mmHg
[2022-11-17 21:28] VITALS: PULSE 88; RESP 16; O2SAT 100
[2022-11-17] MEDS: Albuterol/Iprat 2.5/0.5MG 3 ML AMPUL.NEB INHALE (21:28)
[2022-11-17 21:44] LABS: Alanine Aminotransferase 11 U/L (0-31); Albumin Level 3.8 g/dL (3.5-5.0); Alkaline Phosphatase 143 U/L (39-117); Anion Gap 14 (12-20); Aspartate Amino Transferase 19 U/L (5-31); Bilirubin Total 0.3 mg/dL (0.0-1.0); Blood Urea Nitrogen 12 mg/dL (9-16); Calcium 9.1 mg/dL (8.4-10.2); Carbon Dioxide 31 mmol/L (22-29); Chloride 102 mmol/L (96-108); Creatinine Clr Calc Pharmacy 65.1; Estimated Glomerular Filt Rate > 60; Glucose Random 152 mg/dL (60-115); Potassium 2.8 mmol/L (3.3-5.1); Sodium 144 mmol/L (135-145); Total Protein 7.1 g/dL (6.5-8.0)
[2022-11-17 21:54] LABS: B Type Natriuretic Peptide 316 pg/mL (<100)
[2022-11-17 22:03] LABS: Magnesium 1.8 mg/dL (1.6-2.6)
[2022-11-17] MEDS: Furosemide 100 MG/10 ML VIAL 60 MG IVPUSH (23:38)
[2022-11-17] MEDS: Magnesium Sulfate/D5W 1 GM/100 ML PIGGYBACK IV (23:40)
[2022-11-17] MEDS: Potassium Chloride/H20 10 MEQ/100 ML PIGGYBACK 100 MEQ IV (23:44)
--- NOTE | 2022-11-17 23:59 | PC.NURSE ---
pt assessed, iv saline well placed by Dr. Zamudio, pt refused po potassium, aware
[2022-11-18 00:14] LABS: Troponin-I High Sensitivity 511.9 ng/L (<3.5-17.0)
--- NOTE | 2022-11-18 00:16 | MHC.EDTECH ---
Assumed care of pt as ekg technician at 2300 No distress at this time will Continue to monitor at this time. Titus was place RN is at bedside
--- NOTE | 2022-11-18 00:20 | MHC.EDTECH ---
EKG was done NOT DOCUMENTED PRIOR TO MY ARRIVAL PRIMARY COUNSELOR
--- NOTE | 2022-11-18 00:27 | PC.NURSE ---
iv site infiltrated dr. Patrick in room
--- NOTE | 2022-11-18 00:51 | PC.NURSE ---
pt right ac saline well infiltrated , that DR. corey placed via ultasound
[2022-11-18 00:57] LABS: Appearance Urine Clear; Color Urine Yellow; Glucose Urine UA Negative (Negative); Leukocyte Esterase Urine Small (1+) (Negative); Nitrite Urine Negative (Negative); PH 7.5 (5.0-9.0); UMIC TRIGGER UACC YES; Urine Blood Negative (Negative); Urine Ketones Negative (Negative); Urine Protein Negative (Neg-Trace)
[2022-11-18 01:07] LABS: Venous Blood Gas Refer to POC result
[2022-11-18 01:08] LABS: VBG Base Excess 13.2 mmol/L; VBG HCO3 40 mmol/L (22-26); VBG pCO2 62 mmHg; VBG pH 7.41 (7.32-7.43); VBG pO2 29 mmHg
[2022-11-18 01:10] LABS: Bacteria Urine None Seen (None Seen); Hyaline Casts Urine 0-2 /LPF (0-2); RBC Urine 0-2 /HPF (0-2); Squamous Epithelial Cell Urine 0-2 /HPF (0-2); UACC Culture Trigger YES; WBC Urine 0-5 /HPF (0-5)
--- NOTE | 2022-11-18 01:20 | MHC.EDTECH ---
Patient refused lactic acid due to multiple blood draws lead tech at bedside
[2022-11-18 01:22] VITALS: BP 143/88; PULSE 93; RESP 17; TEMP 36.8; O2SAT 94
[2022-11-18] MEDS: Potassium Chloride/H20 10 MEQ/100 ML PIGGYBACK 100 MEQ IV (01:32)
[2022-11-18] MEDS: methylPREDNISolone Sod Succ 125 MG/2 ML VIAL IVPUSH (01:35)
[2022-11-18 01:40] VITALS: PULSE 80; RESP 16; O2SAT 96
[2022-11-18] MEDS: Albuterol/Iprat 2.5/0.5MG 3 ML AMPUL.NEB INHALE (01:40)
--- NOTE | 2022-11-18 01:50 | PC.NURSE ---
pt refused lactic acid lab dr. mayo
--- NOTE | 2022-11-18 02:14 | PC.NURSE ---
pt spo2 on 2 liters was 83%, oxygen increased to 4 liters
[2022-11-18 05:01] VITALS: BP 149/86; PULSE 81; RESP 18; TEMP 36.8; O2SAT 96
--- NOTE | 2022-11-18 05:18 | MHC.EDTECH ---
Tech Emptied Vacuum Canister from [employer]. 1500 ML
--- NOTE | 2022-11-18 06:29 | PC.NURSE ---
heparin infusing, tolerated well
--- NOTE | 2022-11-18 06:30 | PC.NURSE ---
pt slept during the shift, no resp distress observed
[2022-11-18 08:57] VITALS: BP 171/97; PULSE 96; RESP 18; TEMP 36.6; O2SAT 96
--- NOTE | 2022-11-18 10:14 | MHC.CM.ED ---
Received case management consult overnight. Patient came to the ER due to shortness of breath. Per provider, patient was not able to order more oxygen because staff at [facility] doesn't speak [place] . T/W spoke with [facility] They have a telephonic furniture cleaner service available when customers call that need assistance. Patient has not called for service/supplies since June 2022. Met with patient and freelance programmer/app developer. Patient lives alone, ambulates with a walker, has a RESEARCH SCIENTIST through [employer] and [facility] for oxygen. Patient's concentrator was not working correctly. She restarted it and it still was not working. Patient's RESEARCH SCIENTIST was concerned about patient's breathing and activated EMS. T/W spoke with [facility]. They will have someone call patient to try and fix the concentrator via telephone. If that is unsuccessful, they will send someone out to try and fix it. Met with patient and freelance programmer/app developer again. Patient has 2 small oxygen tanks at home and feels she can safely return home via BLS. Nahomy KHAN booked. [facility] with chart. Patient, Christine VIZCAINO and Rebecca GARAY aware. Continue to monitor for d/c needs.
[2022-11-18] MEDS: Potassium Chloride Packet 20 MEQ PACKET 40 MEQ PO (10:19)
[2022-11-18] MEDS: Potassium Chloride ER 20 MEQ TAB.ER.PRT 60 MEQ PO (11:12)
[2022-11-18 11:13] VITALS: BP 182/95; PULSE 85; RESP 26; TEMP 36.9; O2SAT 95
== END 2022-11-18 11:50 | disposition home or self-care (01) ==
PROVIDERS: Emergency Provider Student in an Organized Health Care Education/Training Program; PCP Internal Medicine
DX: I11.0 Hypertensive heart disease with heart failure (principal); I50.9 Heart failure, unspecified; J44.9 Chronic obstructive pulmonary disease, unspecified; E87.6 Hypokalemia; R06.02 Shortness of breath; E11.9 Type 2 diabetes mellitus without complications; F17.210 Nicotine dependence, cigarettes, uncomplicated; Z99.81 Dependence on supplemental oxygen; Z79.899 Other long term (current) drug therapy
CPT/HCPCS: 36415; 36573; 71045; 80053; 81001; 81003; 82803; 83735; 83880; 84484; 85025; 85610; 87040; 87086; 93005; 94640; 96365; 96367; 96375; 99285; J1940; J2930; J3475

== ENCOUNTER → 2022-11-17 20:23 | Outpatient (BNV) | payer OTHER, SELFPAY | PROVIDERS: Emergency Provider Student in an Organized Health Care Education/Training Program; PCP Internal Medicine; Visit Provider Internal Medicine Cardiovascular Disease | DX: R94.31 Abnormal electrocardiogram [ECG] [EKG] (principal) | CPT/HCPCS: 93010 ==

== ENCOUNTER 2022-11-30 17:48 | Inpatient (IN) | payer OTHER, SELFPAY ==
--- NOTE | ~2022-11-30 | XR_ITS ---
EXAMINATION: XR CHEST CLINICAL INFORMATION: Shortness of breath COMPARISON: 11/17/2022 TECHNIQUE: Frontal view of the chest was obtained. FINDINGS: Persistent bilateral basilar markings may represent areas of atelectasis there is no failure on this study. Cardiac silhouette is prominent. The hilar regions are comparable XR/XR chest 1V IMPRESSION: Bilateral basilar opacities may represent areas of atelectasis or infiltrate
[2022-11-30 18:04] VITALS: BP 149/92; BP 174/120; PULSE 104; PULSE 87; RESP 17; TEMP 36.4; O2SAT 92; O2SAT 94; BMI 34.3
[2022-11-30 18:12] VITALS: PULSE 89; RESP 16; O2SAT 93
--- NOTE | 2022-11-30 18:28 | ED.SOB ---
HPI - SOB/Dyspnea General Chief Complaint: Dyspnea Stated Complaint: SOB Time Seen by Provider: 11/30/22 17:51 Source: patient and EMS Mode of arrival: EMS Limitations: no limitations History of Present Illness HPI Narrative: 62-year-old [place] Korean-speaking, with frequent admissions in the past for COPD exacerbation, with history of COPD on 4 L baseline oxygen, pulmonary hypertension, diabetes, HTN, depression comes into the hospital with complaints of acute onset shortness of breath started just prior to arrival patient noncompliant to her medication nebulizing treatment took only 1 nebulizing treatment earlier today last admission was on 10/19/2022 on arrival patient's blood pressure was 174/120 saturating in high 80s on 3 L now patient is on 4 L saturating 92% blood pressure 149/92 relaxed without significant respiratory distress Related Data Home Medications Medication Instructions Recorded Confirmed trazodone 50 mg tablet 50 - 100 mg PO BEDTIME PRN Sleep 03/08/20 10/19/22 carvedilol 12.5 mg tablet 1 tab PO BID 07/22/22 10/19/22 Previous Rx's Medication Instructions Recorded quetiapine 50 mg tablet 50 mg PO BID 90 days #180 tabs 12/18/20 sertraline 100 mg tablet 200 mg PO DAILY 90 days #180 tabs 12/18/20 tiotropium bromide 18 mcg capsule 1 cap inhalation DAILY #30 ea 06/29/22 with inhalation device (Spiriva with HandiHaler) furosemide 40 mg tablet 40 mg PO DAILY #30 tabs 07/03/22 folic acid 1 mg tablet 1 mg PO DAILY #90 tabs 09/04/22 isosorbide mononitrate 30 mg 30 mg PO DAILY 90 days #90 tabs 10/05/22 tablet,extended release 24 hr prednisone 20 mg tablet 40 mg PO DAILY #8 tabs 10/20/22 montelukast 10 mg tablet 10 mg PO BEDTIME #30 tabs 11/30/22 Allergies Allergy/AdvReac Type Severity Reaction Status Date / Time nicotine [Nicotine] Allergy Mild ITCHING Verified 10/02/22 10:13 WITH THE PATCHES topiramate Allergy Mild inadequealte Verified 10/02/22 10:13 response Review of Systems Review of Systems: Yes all other systems are reviewed and are negative PMFSH Past Medical History Medical History Anxiety Atelectasis, right Chronic respiratory failure Depression Diabetes Essential hypertension HFrEF (heart failure with reduced ejection fraction) HLD (hyperlipidemia) HTN (hypertension) Hypertensive emergency Non-rheumatic mitral regurgitation Nonischemic cardiomyopathy KELLIE (obstructive sleep apnea) Osteoporosis Pulmonary hypertension Respiratory failure with hypoxia and hypercapnia Severe chronic obstructive pulmonary disease Supraventricular tachycardia Tobacco abuse Surgical History Bilateral ankle fractures History of total abdominal hysterectomy Family History Family History Father No problems noted. 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 home services: No Unable to assess alcohol history related to: Unable to respond Alcohol intake: never Patient Tobacco Use Status: Current everyday Tobacco user Tobacco use type: Cigarette Cigarettes Per Day: 4 Years Smoked: 50 +/- Smoked in Last 30 Days: No e-Cigarette/Vaping Use: Never Used Second Hand Smoke Exposure: No Use of substances other than those prescribed or required for medical reasons: No Advance Directives: Yes Advance Directives on File: Yes Advance Directives Date on File: 04/30/20 service: No Current occupational status: disabled Cognitive needs: Yes Hearing needs: No Vision needs: No Physical Exam Vital Signs: Vital Signs: Last Vital Signs Temp 97.9 F 11/30/22 22:18 Pulse 96 11/30/22 22:18 Resp 18 11/30/22 22:18 BP 155/99 H 11/30/22 22:18 Pulse Ox 92 11/30/22 22:18 O2 Del Method Room Air 11/30/22 22:18 O2 Flow Rate 4 11/30/22 18:12 Oxygen Flow Rate 4 11/30/22 18:04 BMI result Body Mass Index 34.3 Appearance: Alert. Oriented X3. No acute distress. Eyes: PERRLA, No Nystagmus ENT: Pharynx normal. Oral Mucosa moist Neck: Normal inspection. Neck supple. CVS: Normal heart rate and rhythm. Pulses normal. Respiratory: No respiratory distress. Equal air entry bilateral, prolonged expiration with crackles at the bases Abdomen: Soft and nontender. Bowel sounds are present, no mass palpable, no CVA tenderness Skin: Skin warm and dry. Normal skin color. Normal skin turgor. Extremities: No lower extremity edema. No calf tenderness Neuro: Oriented X 3. No motor deficit. No sensory deficit.No cerebellar signs , cranial nerves II-XII intact Medications Administered Discontinued Medications Generic Name Dose Route Start Last Admin Trade Name Vincentq PRN Reason Stop Dose Admin Albuterol Sulfate 5 mg 11/30/22 18:34 11/30/22 19:59 Albuterol Sulfate (0.083%) 2.5 Mg/3 Ml Vial.Neb INHALE 11/30/22 18:35 5 mg ONCE ONE Administration Albuterol/Ipratropium 3 ml 11/30/22 18:34 11/30/22 19:59 Albuterol/Iprat 2.5/0.5mg 3 Ml Ampul.Neb INHALE 11/30/22 18:35 3 ml ONCE ONE Administration Furosemide 40 mg 11/30/22 20:24 11/30/22 20:42 Furosemide 40 Mg/4 Ml Vial IVPUSH 11/30/22 20:25 40 mg ONCE ONE Administration Protocol Methylprednisolone Sodium Succinate 125 mg 11/30/22 18:38 11/30/22 18:45 Methylprednisolone Sod Succ 125 Mg/2 Ml Vial IVPUSH 11/30/22 18:39 125 mg ONCE ONE Administration Medical Decision Making Medical Decision Making [facility] Narrative: Patient has COPD chronic lung disease, CHF came for increased shortness of breath workup showed elevated BNP with congestion of the lungs desaturated to high 80s on 4 L patient received IV Lasix improved during stay in the ER Differential Diagnosis Differential Diagnoses: The differential diagnosis associated with the presentation includes CHF/COPD/pneumonia/viral inflammation Admission/Observation Consideration of admission/observation: Escalation of care including admission/observation considered Consult Healthcare Provider Management of the patient was discussed with: Hospitalist Lab Data [facility] Lab Attestation statement: I reviewed the patient's lab results. 11/30/22 19:18 11/30/22 19:18 Labs: Lab Results 11/30/22 11/30/22 11/30/22 Range/Units 19:18 19:18 19:18 WBC 8.1 (4.8-10.8) X10*3/uL RBC 4.00 L (4.20-5.50) X10*6/uL Hgb 10.5 L (12.0-16.0) g/dl Hct 33.8 L (37.0-47.0) % MCV 84.5 (80.0-98.0) fL MCH 26.3 L (27.0-33.0) pg MCHC 31.1 (31.0-35.0) g/dl RDW 15.3 (11.0-16.0) % Plt Count 152 L (160-400) X10*3/uL MPV 10.7 (9.4-12.3) fL Immature Gran % (Auto) 0.2 (0.0-0.4) % Neut % (Auto) 76.1 H (45-73) % Lymph % (Auto) 16.6 L (20-40) % Morrill % (Auto) 6.4 (2-11) % Eos % (Auto) 0.5 (0-4) % Baso % (Auto) 0.2 (0-2) % Lymph # (Auto) 1.3 (1.2-4.9) X10*3/uL Morrill # (Auto) 0.5 (0.1-1.2) X10*3/uL Eos # (Auto) 0.0 (0.0-0.4) X10*3/uL Baso # (Auto) 0.0 (0.0-0.2) X10*3/uL Abs Immat Gran (auto) 0.02 (0.00-0.03) X10*3/uL Absolute Neuts (auto) 6.1 (2.0-8.3) x10*3/uL Absolute Nucleated RBC 0.000 (0.0-0.012) X10*3/uL Nucleated RBC % (auto) 0.0 (0.0-0.2) /100WBC Sodium 142 (135-145) mmol/L Potassium 3.6 D (3.3-5.1) mmol/L Chloride 105 (96-108) mmol/L Carbon Dioxide 24 (22-29) mmol/L Anion Gap 17 (12-20) BUN 10 (9-16) mg/dL Creatinine 0.85 (0.5-1.4) mg/dL Estim Creat Clear Calc 62.2 Estimated GFR > 60 Random Glucose 126 H (60-115) mg/dL Calcium 9.0 (8.4-10.2) mg/dL Magnesium 2.0 (1.6-2.6) mg/dL Total Bilirubin 0.4 (0.0-1.0) mg/dL AST 60 H (5-31) U/L ALT 35 H (0-31) U/L Alkaline Phosphatase 142 H (39-117) U/L Troponin I High Sens 34.7 H D (<3.5-17.0) ng/L B-Natriuretic Peptide (<100) pg/mL Total Protein 7.4 (6.5-8.0) g/dL Albumin 3.7 (3.5-5.0) g/dL COVID-19 (ANEL) (Negative) COVID-19 Clin Com 11/30/22 11/30/22 Range/Units 19:18 19:18 WBC (4.8-10.8) X10*3/uL RBC (4.20-5.50) X10*6/uL Hgb (12.0-16.0) g/dl Hct (37.0-47.0) % MCV (80.0-98.0) fL MCH (27.0-33.0) pg MCHC (31.0-35.0) g/dl RDW (11.0-16.0) % Plt Count (160-400) X10*3/uL MPV (9.4-12.3) fL Immature Gran % (Auto) (0.0-0.4) % Neut % (Auto) (45-73) % Lymph % (Auto) (20-40) % Morrill % (Auto) (2-11) % Eos % (Auto) (0-4) % Baso % (Auto) (0-2) % Lymph # (Auto) (1.2-4.9) X10*3/uL Morrill # (Auto) (0.1-1.2) X10*3/uL Eos # (Auto) (0.0-0.4) X10*3/uL Baso # (Auto) (0.0-0.2) X10*3/uL Abs Immat Gran (auto) (0.00-0.03) X10*3/uL Absolute Neuts (auto) (2.0-8.3) x10*3/uL Absolute Nucleated RBC (0.0-0.012) X10*3/uL Nucleated RBC % (auto) (0.0-0.2) /100WBC Sodium (135-145) mmol/L Potassium (3.3-5.1) mmol/L Chloride (96-108) mmol/L Carbon Dioxide (22-29) mmol/L Anion Gap (12-20) BUN (9-16) mg/dL Creatinine (0.5-1.4) mg/dL Estim Creat Clear Calc Estimated GFR Random Glucose (60-115) mg/dL Calcium (8.4-10.2) mg/dL Magnesium (1.6-2.6) mg/dL Total Bilirubin (0.0-1.0) mg/dL AST (5-31) U/L ALT (0-31) U/L Alkaline Phosphatase (39-117) U/L Troponin I High Sens (<3.5-17.0) ng/L B-Natriuretic Peptide 1221 H (<100) pg/mL Total Protein (6.5-8.0) g/dL Albumin (3.5-5.0) g/dL COVID-19 (ANEL) Negative (Negative) COVID-19 Clin Com See Note Independent Interpretation I performed an independent interpretation of an: EKG Interpretation: Of sinus rhythm PACs right bundle-branch block no acute ST-T changes no acute ischemia Discharge Plan Discharge Clinical Impression: HFrEF (heart failure with reduced ejection fraction), Acute and chronic respiratory failure with hypoxia Patient Disposition: Admitted As Inpatient
--- NOTE | 2022-11-30 18:33 | ECG_ITS ---
Test Reason : CHEST PAIN Blood Pressure : / mmHG Vent. Rate : 083 BPM Atrial Rate : 083 BPM P-R Int : 120 ms QRS Dur : 128 ms QT Int : 442 ms P-R-T Axes : 015 022 -25 degrees QTc Int : 519 ms Sinus rhythm with Premature supraventricular complexes Right bundle branch block T wave abnormality, consider inferior ischemia Abnormal ECG When compared with ECG of 17-NOV-2022 20:34, No significant changes seen Referred By: Phillip Rivers Electronically Signed By:NATALIA SHANNON
[2022-11-30] MEDS: methylPREDNISolone Sod Succ 125 MG/2 ML VIAL IVPUSH (18:45)
[2022-11-30 19:24] LABS: MANUAL DIFF FLAG NO
[2022-11-30 19:28] LABS: Basophils Percent Auto 0.2 % (0-2); Eosinophils Percent Auto 0.5 % (0-4); Hematocrit 33.8 % (37.0-47.0); Hemoglobin 10.5 g/dl (12.0-16.0); Imm Gran Abs Auto 0.02 X10*3/uL (0.00-0.03); Imm Gran Pct Auto 0.2 % (0.0-0.4); Lymphocytes Absolute Auto 1.3 X10*3/uL (1.2-4.9); Lymphocytes Percent Auto 16.6 % (20-40); Mean Corpuscular HGB Conc 31.1 g/dl (31.0-35.0); Mean Corpuscular Hemoglobin 26.3 pg (27.0-33.0); Mean Corpuscular Volume 84.5 fL (80.0-98.0); Mean Platelet Volume 10.7 fL (9.4-12.3); Monocytes Absolute Auto 0.5 X10*3/uL (0.1-1.2); Monocytes Percent Auto 6.4 % (2-11); Neutrophils Absolute Auto 6.1 x10*3/uL (2.0-8.3); Neutrophils Percent Auto 76.1 % (45-73); Platelet Count 152 X10*3/uL (160-400); Red Cell Distribution Width 15.3 % (11.0-16.0); White Blood Count 8.1 X10*3/uL (4.8-10.8)
[2022-11-30 19:37] LABS: COVID-19 Test Negative (Negative); IDNOW Serial# 08D9AD1C
[2022-11-30 19:46] LABS: B Type Natriuretic Peptide 1221 pg/mL (<100)
[2022-11-30 19:48] LABS: Troponin-I High Sensitivity 34.7 ng/L (<3.5-17.0)
[2022-11-30 19:49] LABS: Alanine Aminotransferase 35 U/L (0-31); Albumin Level 3.7 g/dL (3.5-5.0); Alkaline Phosphatase 142 U/L (39-117); Anion Gap 17 (12-20); Aspartate Amino Transferase 60 U/L (5-31); Bilirubin Total 0.4 mg/dL (0.0-1.0); Blood Urea Nitrogen 10 mg/dL (9-16); Carbon Dioxide 24 mmol/L (22-29); Chloride 105 mmol/L (96-108); Creatinine Clr Calc Pharmacy 62.2; Estimated Glomerular Filt Rate > 60; Glucose Random 126 mg/dL (60-115); Potassium 3.6 mmol/L (3.3-5.1); Sodium 142 mmol/L (135-145); Total Protein 7.4 g/dL (6.5-8.0)
[2022-11-30] MEDS: Albuterol Sulfate (0.083%) 2.5 MG/3 ML VIAL.NEB 5 MG INHALE (19:59)
[2022-11-30] MEDS: Albuterol/Iprat 2.5/0.5MG 3 ML AMPUL.NEB INHALE (19:59)
[2022-11-30 20:02] VITALS: PULSE 84; RESP 18; O2SAT 96
--- NOTE | 2022-11-30 20:20 | PC.NURSE ---
pt [id number]% on nasal cannula 2l, o2 increased to 4liters NC 82%
[2022-11-30] MEDS: Furosemide 40 MG/4 ML VIAL IVPUSH (20:42)
--- NOTE | 2022-11-30 20:45 | PC.NURSE ---
pt medicated with 40mg of lasix ivp, tolerated well
--- NOTE | 2022-11-30 22:05 | PM.IMHP ---
History of Present Illness Date of Service: 11/30/22 Chief Complaint: SOB Fijian-speaking, history is obtained with the help of an milliner helper This is a 62-year-old female with past medical history of CHF with reduced ejection fraction, diabetes, HTN, KELLIE pulmonary hypertension comes into the hospital with complaints of shortness of breath. Patient has a history of frequent admissions to the hospital for CHF. She states that her symptoms started a day ago, no cough, no sputum production, no fever or chills. Denies any chest pain. reports orthopnea and PND. No abdominal pain nausea or vomiting, no diarrhea constipation, no urinary symptoms and has not noticed any swelling in her legs. Asked her about her diet she states that she eats a lot of cheese and crackers with some soda. She does not cook at home, has no family to cup for her. She reports compliance with her Lasix. On arrival to the ED patient hemodynamically stable satting 92% on 4 L of oxygen Labs are significant for WBC count of 8.1, hemoglobin of 10.5 hematocrit 33.8 which is around her baseline, BNP of 1221, troponin of 34.7 COVID-19 negative Chest x-ray shows bilateral opacities representing atelectasis versus infiltrate Patient will be admitted for further management Review of Systems Review of Systems: Yes all other systems are reviewed and are negative [facility] Medical History Anxiety Atelectasis, right Chronic respiratory failure Depression Diabetes Essential hypertension HFrEF (heart failure with reduced ejection fraction) HLD (hyperlipidemia) HTN (hypertension) Hypertensive emergency Non-rheumatic mitral regurgitation Nonischemic cardiomyopathy KELLIE (obstructive sleep apnea) Osteoporosis Pulmonary hypertension Respiratory failure with hypoxia and hypercapnia Severe chronic obstructive pulmonary disease Supraventricular tachycardia Tobacco abuse Family History Father No problems noted. 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 home services: No Unable to assess alcohol history related to: Unable to respond Alcohol intake: never Patient Tobacco Use Status: Current everyday Tobacco user Tobacco use type: Cigarette Cigarettes Per Day: 4 Years Smoked: 50 +/- Smoked in Last 30 Days: No e-Cigarette/Vaping Use: Never Used Second Hand Smoke Exposure: No Use of substances other than those prescribed or required for medical reasons: No Advance Directives: Yes Advance Directives on File: Yes Advance Directives Date on File: 04/30/20 service: No Current occupational status: disabled Cognitive needs: Yes Hearing needs: No Vision needs: No Meds Allergies Allergy/AdvReac Type Severity Reaction Status Date / Time nicotine [Nicotine] Allergy Mild ITCHING Verified 10/02/22 10:13 WITH THE PATCHES topiramate Allergy Mild inadequealte Verified 10/02/22 10:13 response Active Medications: Current Medications Acetaminophen (Acetaminophen 325 Mg Tablet) 650 mg PO Q6H PRN PRN Reason: Pain, Mild (Pain Scale 1-3) Docusate Sodium (Docusate Sodium 100 Mg Capsule) 100 mg PO DAILY PRN PRN Reason: Constipation Enoxaparin Sodium (Enoxaparin Sodium 40 Mg/0.4 Ml Syringe) 40 mg SUBCUT Q24H [facility] Ondansetron HCl (Ondansetron Hcl 4 Mg/2 Ml Vial) 4 mg IVPUSH Q8H PRN PRN Reason: Nausea and Vomiting Sodium Chloride (0.9 % Sodium Chloride Flush 3 Ml Syringe) 3 ml IVFLUSH QSHIFT [facility] Home Medications Medication Instructions Recorded Confirmed Last Taken Type trazodone 50 mg tablet 50 - 100 mg PO BEDTIME PRN Sleep 03/08/20 10/19/22 10/18/22 History carvedilol 12.5 mg tablet 1 tab PO BID 07/22/22 10/19/22 10/18/22 History Physical Exam Vital Signs and Narrative: Vital Signs: Last Vital Signs Temp 97.6 F 11/30/22 18:04 Pulse 84 11/30/22 20:02 Resp 18 11/30/22 20:02 BP 149/92 H 11/30/22 18:04 Pulse Ox 93 11/30/22 18:12 O2 Del Method Nasal Cannula 11/30/22 18:12 O2 Flow Rate 4 11/30/22 18:12 Oxygen Flow Rate 4 11/30/22 18:04 BMI result Body Mass Index 34.3 Const: Other: Patient is short of breath on even minimum exertion. Even when talking she appears in respiratory distress General: cooperative Eyes: General: appearance normal, both eyes and all related structures Resp: Other: Bilateral crackles Effort & Inspection: normal respiratory effort Cardio: Rate: regular rate Rhythm: regular rhythm GI: Palpation (GI): Soft to palpation Auscultation: normal bowel sounds Skin: General skin exam: no rashes or lesions noted Neuro: Cognition (Neuro): normal cognition Extrem: Other: Trace pedal edema General: Yes normal to inspection and Yes no pedal edema Results Labs 11/30/22 19:18 11/30/22 19:18 Labs: Laboratory Results - last 24 hr 11/30/22 11/30/22 11/30/22 19:18 19:18 19:18 MCV 84.5 MCH 26.3 L MCHC 31.1 RDW 15.3 Plt Count 152 L MPV 10.7 Immature Gran % (Auto) 0.2 Neut % (Auto) 76.1 H Lymph % (Auto) 16.6 L Carter % (Auto) 6.4 Eos % (Auto) 0.5 Baso % (Auto) 0.2 Lymph # (Auto) 1.3 Carter # (Auto) 0.5 Eos # (Auto) 0.0 Baso # (Auto) 0.0 Abs Immat Gran (auto) 0.02 Absolute Neuts (auto) 6.1 Absolute Nucleated RBC 0.000 Nucleated RBC % (auto) 0.0 Anion Gap 17 Estim Creat Clear Calc 62.2 Estimated GFR > 60 Random Glucose 126 H Calcium 9.0 Magnesium 2.0 Total Bilirubin 0.4 AST 60 H ALT 35 H Alkaline Phosphatase 142 H B-Natriuretic Peptide 1221 H Total Protein 7.4 Albumin 3.7 COVID-19 (ANEL) COVID-19 Clin Com 11/30/22 19:18 MCV MCH MCHC RDW Plt Count MPV Immature Gran % (Auto) Neut % (Auto) Lymph % (Auto) Carter % (Auto) Eos % (Auto) Baso % (Auto) Lymph # (Auto) Carter # (Auto) Eos # (Auto) Baso # (Auto) Abs Immat Gran (auto) Absolute Neuts (auto) Absolute Nucleated RBC Nucleated RBC % (auto) Anion Gap Estim Creat Clear Calc Estimated GFR Random Glucose Calcium Magnesium Total Bilirubin AST ALT Alkaline Phosphatase B-Natriuretic Peptide Total Protein Albumin COVID-19 (ANEL) Negative COVID-19 Clin Com See Note Imaging Radiologist's Impressions: Impressions Chest X-Ray 11/30/22 20:19 IMPRESSION: Bilateral basilar opacities may represent areas of atelectasis or infiltrate Assessment and Plan (1) Acute and chronic respiratory failure with hypoxia: Status: Acute (2) HFrEF (heart failure with reduced ejection fraction): Status: Acute (3) Acute CHF: Status: Acute Plan 62-year-old female with past medical history of CHF with reduced ejection fraction, KELLIE on CPAP noncompliant, diabetes, HTN comes into the hospital shortness of breath # acute hypoxic respiratory failure - secondary to CHF exacerbation, less likely to be COPD as she has no cough no sputum production - monitor respiratory status, wean O2 down as tolerated # acute CHF exacerbation - has elevated BNP, evidence of pulmonary effusion on x-ray - likely secondary to diet, and her salt intake. Patient reports a diet of crackers and cheese - reports compliance with her Lasix - will start on IV Lasix, low-sodium diet, strict I&O, - patient can likely be discharged on her home Lasix but has to monitor her diet and reduce her salt intake to reduce exacerbation # diabetes - will add low-dose sliding scale insulin - diabetic diet # hypertension - stable - continue home antihypertensives DVT prophylaxis: Lovenox Given the acute CHF exacerbation and hypoxia patient require minimum 2 nights inpatient hospital stay for further management and monitoring Time Spent With Patient Time: Total time managing care of this patient today ____ minutes. Quality Stroke Does the patient have a stroke diagnosis?: No VTE Prior VTE?: No VTE Risk Level:: Medical - moderate - high VTE Device Contraindication: Treatment Not Indicated VTE Drug Contraindication: N/A - Med Ordered
[2022-11-30 22:18] VITALS: BP 155/99; PULSE 96; RESP 18; TEMP 36.6; O2SAT 92
[2022-11-30] MEDS: Enoxaparin Sodium 40 MG/0.4 ML SYRINGE SUBCUT (23:17)
[2022-11-30 23:24] LABS: Troponin-I High Sensitivity 41.5 ng/L (<3.5-17.0)
[2022-12-01] VITALS (9 sets, daily range): BP systolic 140–188; BP diastolic 92–116; PULSE 71–91; RESP 15–20; TEMP 36–36.8; O2SAT 90–97; BMI 27.2
--- NOTE | 2022-12-01 00:18 | PC.RT ---
Spoke with patient about wearing CPAP for NOC support and pt stated she doesn't want to wear one while in the hospital and that she is non compliant at home
[2022-12-01 00:26] LABS: Glucose, Whole Blood 175 mg/dL (60-115)
[2022-12-01] MEDS: Insulin Lispro 100 UNIT/ML 3 ML VIAL SUBCUT ×2 (00:28→11:12)
[2022-12-01 06:16] LABS: MANUAL DIFF FLAG NO
[2022-12-01 06:24] LABS: Basophils Percent Auto 0.1 % (0-2); Hematocrit 33.6 % (37.0-47.0); Hemoglobin 10.7 g/dl (12.0-16.0); Imm Gran Abs Auto 0.02 X10*3/uL (0.00-0.03); Imm Gran Pct Auto 0.3 % (0.0-0.4); Lymphocytes Absolute Auto 0.8 X10*3/uL (1.2-4.9); Lymphocytes Percent Auto 10.9 % (20-40); Mean Corpuscular HGB Conc 31.8 g/dl (31.0-35.0); Mean Corpuscular Hemoglobin 26.2 pg (27.0-33.0); Mean Corpuscular Volume 82.4 fL (80.0-98.0); Monocytes Absolute Auto 0.2 X10*3/uL (0.1-1.2); Monocytes Percent Auto 2.1 % (2-11); Neutrophils Absolute Auto 6.2 x10*3/uL (2.0-8.3); Neutrophils Percent Auto 86.6 % (45-73); Platelet Count 152 X10*3/uL (160-400); Red Blood Count 4.08 X10*6/uL (4.20-5.50); Red Cell Distribution Width 15.3 % (11.0-16.0); White Blood Count 7.2 X10*3/uL (4.8-10.8)
[2022-12-01 06:37] LABS: Alanine Aminotransferase 29 U/L (0-31); Albumin Level 3.9 g/dL (3.5-5.0); Alkaline Phosphatase 144 U/L (39-117); Anion Gap 19 (12-20); Aspartate Amino Transferase 33 U/L (5-31); Bilirubin Total 0.4 mg/dL (0.0-1.0); Blood Urea Nitrogen 10 mg/dL (9-16); Calcium 9.3 mg/dL (8.4-10.2); Carbon Dioxide 22 mmol/L (22-29); Chloride 105 mmol/L (96-108); Creatinine Clr Calc Pharmacy 59.3; Estimated Glomerular Filt Rate > 60; Glucose Random 133 mg/dL (60-115); Potassium 3.6 mmol/L (3.3-5.1); Sodium 142 mmol/L (135-145); Total Protein 7.5 g/dL (6.5-8.0)
[2022-12-01 07:14] LABS: Glucose, Whole Blood 125 mg/dL (60-115)
--- NOTE | 2022-12-01 08:01 | PHA.MEDREC ---
Pharmacy Consult ? Medication Reconciliation Pharmacy has completed the medication reconciliation. Used full time staff interpreter services. Patient seemed frustrated at time of interview. Told me it would be easier to call her [facility] on [address]. Pharmacy claims utilized.
[2022-12-01] MEDS: Furosemide 40 MG/4 ML VIAL IVPUSH ×2 (08:58→17:09)
[2022-12-01] MEDS: 0.9 % Sodium Chloride Flush 3 ML SYRINGE IVFLUSH ×3 (09:01→22:43)
--- NOTE | 2022-12-01 10:33 | P.PNIM_ITS ---
Subjective Subjective Date of Service: 12/01/22 Interval History: f/u o chf exacerbation, already feeling better Physical Exam Vital Signs: Vital Signs: Last Vital Signs Temp 97.6 F 12/01/22 07:01 Pulse 84 12/01/22 07:01 Resp 18 12/01/22 07:01 BP 161/92 H 12/01/22 07:01 Pulse Ox 92 12/01/22 07:01 O2 Del Method Nasal Cannula 12/01/22 07:01 O2 Flow Rate 4.5 12/01/22 07:01 Oxygen Flow Rate 4 11/30/22 18:04 BMI result Body Mass Index 27.2 Const: Other: General: AO X 3, no acute distress Resp: CTA bilateral CVS: S1,S2,RRR GI: +BS, NT, no distention Skin: No rash Neuro: motor grossly intact Psych: appropriate affect Objective Data Active Medications Acetaminophen (Acetaminophen 325 Mg Tablet) 650 mg PO Q6H PRN PRN Reason: Pain, Mild (Pain Scale 1-3) Dextrose (Dextrose 50 % 25 Gm/50 Ml Syringe) 25 gm IVPUSH Q15M PRN; Protocol PRN Reason: per Hypoglycemia Standing Ord. Docusate Sodium (Docusate Sodium 100 Mg Capsule) 100 mg PO DAILY PRN PRN Reason: Constipation Enoxaparin Sodium (Enoxaparin Sodium 40 Mg/0.4 Ml Syringe) 40 mg SUBCUT Q24H [facility] Last Admin: 11/30/22 23:17 Dose: 40 mg Documented By: MEMO Furosemide (Furosemide 40 Mg/4 Ml Vial) 40 mg IVPUSH BID@0900,1800 [facility]; Protocol Last Admin: 12/01/22 08:58 Dose: 40 mg Documented By: KIN Glucose (Glucose Gel 15 Gm Gel..Gram.) 15 gm PO Q15M PRN; Protocol PRN Reason: per Hypoglycemia Standing Ord. Insulin Human Lispro (Insulin Lispro 100 Unit/Ml 3 Ml Vial) 0 unit SUBCUT QIDACHS [facility]; Protocol Last Admin: 12/01/22 00:28 Dose: 2 unit Documented By: MEMO Ondansetron HCl (Ondansetron Hcl 4 Mg/2 Ml Vial) 4 mg IVPUSH Q8H PRN PRN Reason: Nausea and Vomiting Pharmacy Consult (Consult Rx Perform Med Rec) 1 each MISCELLANE ONCE PRN PRN Reason: Consult order Sodium Chloride (0.9 % Sodium Chloride Flush 3 Ml Syringe) 3 ml IVFLUSH QSHIFT [facility] Last Admin: 12/01/22 09:01 Dose: 3 ml Documented By: KIN Labs 12/01/22 06:05 12/01/22 06:05 Labs: Laboratory Results - last 24 hr 11/30/22 11/30/22 11/30/22 19:18 19:18 19:18 MCV 84.5 MCH 26.3 L MCHC 31.1 RDW 15.3 Plt Count 152 L MPV 10.7 Immature Gran % (Auto) 0.2 Neut % (Auto) 76.1 H Lymph % (Auto) 16.6 L [place] % (Auto) 6.4 Eos % (Auto) 0.5 Baso % (Auto) 0.2 Lymph # (Auto) 1.3 [place] # (Auto) 0.5 Eos # (Auto) 0.0 Baso # (Auto) 0.0 Abs Immat Gran (auto) 0.02 Absolute Neuts (auto) 6.1 Absolute Nucleated RBC 0.000 Nucleated RBC % (auto) 0.0 Anion Gap 17 Estim Creat Clear Calc 62.2 Estimated GFR > 60 POC Glucose Random Glucose 126 H Calcium 9.0 Magnesium 2.0 Total Bilirubin 0.4 AST 60 H ALT 35 H Alkaline Phosphatase 142 H B-Natriuretic Peptide 1221 H Total Protein 7.4 Albumin 3.7 COVID-19 (ANEL) COVID-19 Clin Com 11/30/22 12/01/22 12/01/22 19:18 00:23 06:05 MCV 82.4 MCH 26.2 L MCHC 31.8 RDW 15.3 Plt Count 152 L MPV 11.0 Immature Gran % (Auto) 0.3 Neut % (Auto) 86.6 H Lymph % (Auto) 10.9 L [place] % (Auto) 2.1 Eos % (Auto) 0.0 Baso % (Auto) 0.1 Lymph # (Auto) 0.8 L [place] # (Auto) 0.2 Eos # (Auto) 0.0 Baso # (Auto) 0.0 Abs Immat Gran (auto) 0.02 Absolute Neuts (auto) 6.2 Absolute Nucleated RBC 0.000 Nucleated RBC % (auto) 0.0 Anion Gap Estim Creat Clear Calc Estimated GFR POC Glucose 175 H Random Glucose Calcium Magnesium Total Bilirubin AST ALT Alkaline Phosphatase B-Natriuretic Peptide Total Protein Albumin COVID-19 (ANEL) Negative COVID-19 Clin Com See Note 12/01/22 12/01/22 06:05 07:02 MCV MCH MCHC RDW Plt Count MPV Immature Gran % (Auto) Neut % (Auto) Lymph % (Auto) [place] % (Auto) Eos % (Auto) Baso % (Auto) Lymph # (Auto) [place] # (Auto) Eos # (Auto) Baso # (Auto) Abs Immat Gran (auto) Absolute Neuts (auto) Absolute Nucleated RBC Nucleated RBC % (auto) Anion Gap 19 Estim Creat Clear Calc 59.3 Estimated GFR > 60 POC Glucose 125 H Random Glucose 133 H Calcium 9.3 Magnesium Total Bilirubin 0.4 AST 33 H ALT 29 Alkaline Phosphatase 144 H B-Natriuretic Peptide Total Protein 7.5 Albumin 3.9 COVID-19 (ANEL) COVID-19 Clin Com Assessment and Plan (1) Acute CHF: Status: Acute Plan 62-year-old female with past medical history of CHF with reduced ejection fraction, KELLIE on CPAP noncompliant, diabetes, HTN comes into the hospital shortness of breath # acute hypoxic respiratory failure - secondary to CHF exacerbation, less likely to be COPD as she has no cough no s putum production - monitor respiratory status, wean O2 down as tolerated # acute CHF exacerbation - has elevated BNP, evidence of pulmonary effusion on x-ray - likely secondary to diet, and her salt intake. Patient reports a diet of crackers and cheese - reports compliance with her Lasix - Continue IV Lasix, low-sodium diet, strict I&O, and change to PO lasix later today - patient can likely be discharged on her home Lasix but has to monitor her diet and reduce her salt intake to reduce exacerbation # diabetes - will add low-dose sliding scale insulin - diabetic diet # hypertension - stable - continue home antihypertensives DVT prophylaxis: Lovenox Given the acute CHF exacerbation and hypoxia patient require minimum 2 nights inpatient hospital stay for further management and monitoring Time Spent With Patient Time: Total time managing care of this patient today ____ minutes. Quality Stroke Does the patient have a stroke diagnosis?: No VTE Prior VTE?: No VTE Risk Level:: Medical - moderate - high VTE Device Contraindication: Treatment Not Indicated VTE Drug Contraindication: N/A - Med Ordered
[2022-12-01 10:57] LABS: Glucose, Whole Blood 161 mg/dL (60-115)
--- NOTE | 2022-12-01 11:01 | MHC.CM.PN ---
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
[2022-12-01] MEDS: Acetaminophen 325 MG TABLET 650 MG PO ×2 (11:11→20:00)
[2022-12-01 15:50] LABS: Glucose, Whole Blood 97 mg/dL (60-115)
[2022-12-01] MEDS: Sertraline HCL 100 MG TABLET 200 MG PO (17:17)
[2022-12-01] MEDS: QUEtiapine Fumarate 50 MG TABLET PO (17:17)
[2022-12-01] MEDS: Isosorbide Mononitrate 30 MG TAB.ER.24H PO (17:17)
[2022-12-01] MEDS: Albuterol/Iprat 2.5/0.5MG 3 ML AMPUL.NEB INHALE (19:34)
[2022-12-01 19:42] LABS: Glucose, Whole Blood 116 mg/dL (60-115)
[2022-12-01] MEDS: Montelukast Sodium 10 MG TABLET PO (20:00)
[2022-12-01] MEDS: traZODone HCL 50 MG TABLET PO (20:05)
[2022-12-01] MEDS: Enoxaparin Sodium 40 MG/0.4 ML SYRINGE SUBCUT (22:40)
[2022-12-02] VITALS (10 sets, daily range): BP systolic 135–169; BP diastolic 78–96; PULSE 81–92; RESP 18–20; TEMP 36.1–36.5; O2SAT 88–100; BMI 27.0
[2022-12-02 07:05] LABS: Glucose, Whole Blood 86 mg/dL (60-115)
[2022-12-02] MEDS: Albuterol/Iprat 2.5/0.5MG 3 ML AMPUL.NEB INHALE ×4 (07:51→19:36)
[2022-12-02] MEDS: 0.9 % Sodium Chloride Flush 3 ML SYRINGE IVFLUSH ×2 (08:40→20:57)
[2022-12-02] MEDS: Isosorbide Mononitrate 30 MG TAB.ER.24H PO (08:40)
[2022-12-02] MEDS: Sertraline HCL 100 MG TABLET 200 MG PO (08:40)
[2022-12-02] MEDS: Furosemide 40 MG TABLET PO (08:40)
[2022-12-02] MEDS: Folic Acid 1 MG TABLET PO (08:40)
[2022-12-02] MEDS: carvediloL 12.5 MG TABLET PO ×2 (08:40→20:57)
[2022-12-02] MEDS: QUEtiapine Fumarate 50 MG TABLET PO ×2 (08:40→20:57)
[2022-12-02 11:03] LABS: Glucose, Whole Blood 132 mg/dL (60-115)
--- NOTE | 2022-12-02 11:45 | HO.PM.IMPN ---
Subjective Subjective Date of Service: 12/02/22 Interval History: f/u on chf , copd feels better but not great Physical Exam Vital Signs: Vital Signs: Last Vital Signs Temp 97.0 F 12/02/22 10:54 Pulse 85 12/02/22 10:54 Resp 20 12/02/22 10:54 BP 135/96 H 12/02/22 10:54 Pulse Ox 93 12/02/22 10:54 O2 Del Method Nasal Cannula 12/02/22 10:54 O2 Flow Rate 5 12/02/22 10:54 Oxygen Flow Rate 4 11/30/22 18:04 BMI result Body Mass Index 27.0 Const: Other: General: AO X 3, no acute distress Resp: diminished air entry CVS: S1,S2,RRR GI: +BS, NT, no distention Skin: No rash Neuro: motor grossly intact Psych: appropriate affect Objective Data Active Medications Acetaminophen (Acetaminophen 325 Mg Tablet) 650 mg PO Q6H PRN PRN Reason: Pain, Mild (Pain Scale 1-3) Last Admin: 12/01/22 20:00 Dose: 650 mg Documented By: SHANTEL Albuterol/Ipratropium (Albuterol/Iprat 2.5/0.5mg 3 Ml Ampul.Neb) 3 ml INHALE RQ4H WHILE AWAKE [facility] Last Admin: 12/02/22 07:51 Dose: 3 ml Documented By: DRE Albuterol/Ipratropium (Albuterol/Iprat 2.5/0.5mg 3 Ml Ampul.Neb) 3 ml INHALE Q2H PRN PRN Reason: Shortness of breath Carvedilol (Carvedilol 12.5 Mg Tablet) 12.5 mg PO BID [facility]; Protocol Last Admin: 12/02/22 08:40 Dose: 12.5 mg Documented By: JAMES Dextrose (Dextrose 50 % 25 Gm/50 Ml Syringe) 25 gm IVPUSH Q15M PRN; Protocol PRN Reason: per Hypoglycemia Standing Ord. Docusate Sodium (Docusate Sodium 100 Mg Capsule) 100 mg PO DAILY PRN PRN Reason: Constipation Enoxaparin Sodium (Enoxaparin Sodium 40 Mg/0.4 Ml Syringe) 40 mg SUBCUT Q24H [facility] Last Admin: 12/01/22 22:40 Dose: 40 mg Documented By: SHANTEL Folic Acid (Folic Acid 1 Mg Tablet) 1 mg PO DAILY [facility] Last Admin: 12/02/22 08:40 Dose: 1 mg Documented By: JAMES Furosemide (Furosemide 40 Mg/4 Ml Vial) 40 mg IVPUSH BID@0900,1800 [facility]; Protocol Last Admin: 12/02/22 10:19 Dose: Not Given Documented By: JAMES Non-Admin Reason: Physician Held Med Furosemide (Furosemide 40 Mg Tablet) 40 mg PO DAILY [facility]; Protocol Last Admin: 12/02/22 08:40 Dose: 40 mg Documented By: JAMES Glucose (Glucose Gel 15 Gm Gel..Gram.) 15 gm PO Q15M PRN; Protocol PRN Reason: per Hypoglycemia Standing Ord. Insulin Human Lispro (Insulin Lispro 100 Unit/Ml 3 Ml Vial) 0 unit SUBCUT QIDACHS [facility]; Protocol Last Admin: 12/02/22 11:17 Dose: Not Given Documented By: JAMES Non-Admin Reason: Patient Condition Contraindication Comments: 132 Isosorbide Mononitrate (Isosorbide Mononitrate 30 Mg Tab.Er.24h) 30 mg PO DAILY [facility]; Protocol Last Admin: 12/02/22 08:40 Dose: 30 mg Documented By: JAMES Montelukast Sodium (Montelukast Sodium 10 Mg Tablet) 10 mg PO BEDTIME [facility] Last Admin: 12/01/22 20:00 Dose: 10 mg Documented By: SHANTEL Ondansetron HCl (Ondansetron Hcl 4 Mg/2 Ml Vial) 4 mg IVPUSH Q8H PRN PRN Reason: Nausea and Vomiting Pharmacy Consult (Consult Rx Perform Med Rec) 1 each MISCELLANE ONCE PRN PRN Reason: Consult order Quetiapine Fumarate (Quetiapine Fumarate 50 Mg Tablet) 50 mg PO BID [facility] Last Admin: 12/02/22 08:40 Dose: 50 mg Documented By: JAMES Sertraline HCl (Sertraline Hcl 100 Mg Tablet) 200 mg PO DAILY [facility] Last Admin: 12/02/22 08:40 Dose: 200 mg Documented By: JAMES Sodium Chloride (0.9 % Sodium Chloride Flush 3 Ml Syringe) [facility] Admin: 12/02/22 08:40 Dose: 3 ml Documented By: JAMES Tiotropium Davison (Tiotropium Davison 2.5 Mcg Inhaler) 1 puff INHALE DAILY [facility] Trazodone HCl (Trazodone Hcl 50 Mg Tablet) 50 - 100 mg PO BEDTIME PRN PRN Reason: Sleep Last Admin: 12/01/22 20:05 Dose: 100 mg Documented By: SHANTEL Labs 12/01/22 06:05 12/01/22 06:05 Labs: Laboratory Results - last 24 hr 12/01/22 12/01/22 12/02/22 15:41 19:22 07:02 POC Glucose 97 116 H 86 12/02/22 10:58 POC Glucose 132 H Assessment and Plan (1) Acute CHF: Status: Acute Plan 62-year-old female with past medical history of CHF with reduced ejection fraction, KELLIE on CPAP noncompliant, diabetes, HTN comes into the hospital shortness of breath # acute hypoxic respiratory failure - secondary to CHF exacerbation, less likely to be COPD as she has no cough no sputum production - monitor respiratory status, wean O2 down as tolerated # acute CHF exacerbation - has elevated BNP, evidence of pulmonary effusion on x-ray - likely secondary to diet, and her salt intake. Patient reports a diet of crackers and cheese - reports compliance with her Lasix - Continue IV Lasix, low-sodium diet, strict I&O, and change to PO lasix later today - patient can likely be discharged on her home Lasix but has to monitor her diet and reduce her salt intake to reduce exacerbation #copd exacerbation--add steroid # diabetes - will add low-dose sliding scale insulin - diabetic diet # hypertension - stable - continue home antihypertensives DVT prophylaxis: Lovenox Given the acute CHF exacerbation and hypoxia patient require minimum 2 nights inpatient hospital stay for further management and monitoring Time Spent With Patient Time: Total time managing care of this patient today ____ minutes. Quality Stroke Does the patient have a stroke diagnosis?: No VTE Prior VTE?: No VTE Risk Level:: Medical - moderate - high VTE Device Contraindication: Treatment Not Indicated VTE Drug Contraindication: N/A - Med Ordered
[2022-12-02] MEDS: predniSONE 20 MG TABLET 40 MG PO ×2 (13:11→13:14)
[2022-12-02 16:10] LABS: Glucose, Whole Blood 137 mg/dL (60-115)
[2022-12-02] MEDS: Furosemide 40 MG/4 ML VIAL IVPUSH (17:12)
--- NOTE | 2022-12-02 18:37 | PC.NURSE ---
pt reportedly choked on her dinner. SpO2 dropped as low as 69% on 6LNC. Pt placed on non-rebreather mask for approx 30 min to recover from coughing. Pt returned to 6L NC and satting appropriately. RT notified.
[2022-12-02 20:29] LABS: Glucose, Whole Blood 179 mg/dL (60-115)
[2022-12-02] MEDS: Insulin Lispro 100 UNIT/ML 3 ML VIAL SUBCUT (20:57)
[2022-12-02] MEDS: Montelukast Sodium 10 MG TABLET PO (20:57)
[2022-12-02] MEDS: traZODone HCL 50 MG TABLET PO (21:03)
[2022-12-02] MEDS: Enoxaparin Sodium 40 MG/0.4 ML SYRINGE SUBCUT (23:46)
[2022-12-03 03:24] VITALS: BP 146/79; PULSE 75; RESP 18; TEMP 36.6; O2SAT 97
[2022-12-03 06:00] VITALS: BMI 27.3
[2022-12-03 07:10] VITALS: BP 151/94; PULSE 80; RESP 20; TEMP 36.3; O2SAT 93
[2022-12-03 07:26] LABS: Glucose, Whole Blood 91 mg/dL (60-115)
[2022-12-03] MEDS: Albuterol/Iprat 2.5/0.5MG 3 ML AMPUL.NEB INHALE ×2 (08:01→11:22)
[2022-12-03] MEDS: 0.9 % Sodium Chloride Flush 3 ML SYRINGE IVFLUSH (09:07)
[2022-12-03] MEDS: predniSONE 20 MG TABLET 40 MG PO (09:09)
[2022-12-03] MEDS: QUEtiapine Fumarate 50 MG TABLET PO (09:10)
[2022-12-03] MEDS: Sertraline HCL 100 MG TABLET 200 MG PO (09:10)
[2022-12-03] MEDS: Furosemide 40 MG TABLET PO (09:10)
[2022-12-03] MEDS: Folic Acid 1 MG TABLET PO (09:11)
[2022-12-03] MEDS: Isosorbide Mononitrate 30 MG TAB.ER.24H PO (09:11)
[2022-12-03] MEDS: carvediloL 12.5 MG TABLET PO (09:11)
--- NOTE | 2022-12-03 09:52 | P.DS_ITS ---
DS: Providers Provider Date of Service: 12/03/22 Date of admission: 11/30/22 22:03 Primary care physician: Analisa Chavez MD DS: Diagnosis Discharge Diagnosis (1) Acute CHF: Status: Acute DS: Summary Hospital Course Hospital Course: Admission HPIChief Complaint: SOB Turkish-speaking, history is obtained with the help of an story analyst This is a 62-year-old female with past medical history of CHF with reduced ejection fraction, diabetes, HTN, KELLIE pulmonary hypertension comes into the hospital with complaints of shortness of breath.? Patient has a history of frequent admissions to the hospital for CHF.? She states that her symptoms started a day ago, no cough, no sputum production, no fever or chills.? Denies any chest pain.? reports orthopnea and PND.? No abdominal pain nausea or vomiting, no diarrhea constipation, no urinary symptoms and has not noticed any swelling in her legs.? Asked her about her diet she states that she eats a lot of cheese and crackers with some soda.? She does not cook at home, has no family to cup for her.? She reports compliance with her Lasix.? On arrival to the ED patient hemodynamically stable satting 92% on 4 L of oxygen Labs are significant for WBC count of 8.1, hemoglobin of 10.5 hematocrit 33.8 which is around her baseline, BNP of 1221, troponin of 34.7 COVID-19 negative Chest x-ray shows bilateral opacities representing atelectasis versus infiltrate Patient will be admitted for further management Hospital course: # acute hypoxic respiratory failure due to CHF and COPD. CHF was treated with IV Lasix until improved then was switched back to oral Lasix 40 mg daily, COPD component treated with bronchodilators by Nebs and Prednisone, She is overalll feeling much better, somoking cessation has been greatly encouraged. Will discharge with Prednisone kaiden REsume all other chronic meds. - Time Spent with Patient Time attestation: Total time managing care of this patient today ____ minutes. Discharge coordination time: Greater than 30 minutes Quality: Safe Use of Opioids Does Pt have an Active Cancer Diagnosis on the Problem List?: No Quality: Stroke Does the patient have a stroke diagnosis?: No Physical Exam Vital Signs: Vital Signs: Last Vital Signs Temp 97.3 F 12/03/22 07:10 Pulse 80 12/03/22 07:10 Resp 20 08/02/23 07:10 BP 151/94 H 12/03/22 07:10 Pulse Ox 93 12/03/22 07:10 O2 Del Method Nasal Cannula 12/03/22 07:10 O2 Flow Rate 4 12/03/22 07:10 Oxygen Flow Rate 4 11/30/22 18:04 BMI result Body Mass Index 27.3 DS: Data Data Completed and Pending Completed studies during hospitalization [Text1]: Procedures Assistance with Respiratory Ventilation, Less than 24 Consecutive Hours, Continuous Positive Airway Pressure (10/19/22) Labs on day of discharge: Laboratory Results - last 24 hr 12/02/22 12/02/22 12/02/22 10:58 16:02 20:21 POC Glucose 132 H 137 H 179 H 12/03/22 07:12 POC Glucose 91 Discharge Plan Discharge Anticipated Discharge Date/Time: 12/03/22 09:49 Patient Disposition: Home Health Service Discharge Diagnosis: Heart failure exacerbation, COPD exacerbation Referrals: Analisa Carr MD [Primary Care Provider] - 1 Week Discharge Medications: Continued sertraline 100 mg tablet 200 mg PO DAILY 90 Days Qty: 180 1RF quetiapine 50 mg tablet 50 mg PO BID 90 Days Qty: 180 1RF Spiriva with HandiHaler 18 mcg capsule, w/inhalation device 1 cap inhalation DAILY Qty: 30 5RF furosemide 40 mg tablet 40 mg PO DAILY Qty: 30 3RF isosorbide mononitrate 30 mg tablet extended release 24 hr 30 mg PO DAILY 90 Days Qty: 90 3RF Protocol: Hold for SBP< HOLD for SBP < : 90 montelukast 10 mg tablet 10 mg PO BEDTIME Qty: 30 11RF trazodone 50 mg tablet 50 - 100 mg PO BEDTIME PRN (Reason: Sleep) folic acid 1 mg Tablet 1 mg PO DAILY Qty: 90 4RF carvedilol 12.5 mg tablet 1 tab PO BID Discharge Orders: Discharge Order (Routine); Ordered 12/03/22 Ordered By: Sahil Yost Diet: Advance to usual diet Activity on Discharge: As tolerated Stand Alone Forms: Patient Portal Discharge page Care Plan Goals: full recovery from copd and heart failure Health Concerns: chronic heart failure copd chronic smoker Plan of Treatment: Take Lasix as recommended, avoid salty food, don't overdrink water, stop smoking, take Prednisone as directed and follow up with your Doctor in a week, call for appointment Assessment: see above
[2022-12-03 09:54] VITALS: PULSE 80; RESP 16; O2SAT 93
--- NOTE | 2022-12-03 10:20 | P.CDIM_ITS ---
PROVIDER RESPONSE TEXT: To clarify, the appropriate diagnosis supported by the clinical indicators: COPD exacerbation QUERY TEXT: PHYSICIAN'S DOCUMENTATION REQUEST Date of Query: 12/03/2022 08:59 AM EDT Patient Name: Paola Romero Admit Date: 12/01/2022 Dear Sahil Yost, A review of the medical record indicates additional documentation may be needed. Please review below and update the documentation accordingly. Clinical Indicators: H&P - Acute hypoxic respiratory failure, 2nd to CHF exacerbation, less likely to be COPD as she has n o cough no sputum production. PN 12/01 - CHF less likely to be COPD as she has no cough, no sputum production. PN 12/02 - COPD exacerbation, add steroids. Based on the above, clarity of the COPD exacerbation and the consistency of the noted exacerbation, p oa etc. COPD COPD exacerbation Other (explain)Clinically unable to determine (explain)Thank you, Genna Farr, CCS, CDIS Use of terms such as suspected, likely, concern for, or probable (associated with a specific diagnosi s that is being evaluated, monitored, or treated as if it exists) are acceptable and can be coded in the inpatient se tting, when documented at the time of discharge. Please use your independent medical judgment in providing your response. THIS QUERY IS PART OF THE PERMANENT MEDICAL RECORD
--- NOTE | 2022-12-03 11:15 | MHC.CM.PN ---
Pt medically cleared for D/C home today with resumption of [employer] services. Transport via [facility] booked for 2pm today.
[2022-12-03 11:24] VITALS: PULSE 82; RESP 16; O2SAT 95
[2022-12-03 11:29] VITALS: BP 118/73; PULSE 82; RESP 20; TEMP 36.1; O2SAT 95
[2022-12-03 11:52] LABS: Glucose, Whole Blood 185 mg/dL (60-115)
[2022-12-03] MEDS: Acetaminophen 325 MG TABLET 650 MG PO (12:40)
[2022-12-03] MEDS: Insulin Lispro 100 UNIT/ML 3 ML VIAL SUBCUT (12:47)
== END 2022-12-03 14:30 | disposition home health service (06) | DRG 194 ==
LOC: HO.ED 18:30 → HO.EDOVER 22:17 → HO.IMC 12-01 03:07
PROVIDERS: Admitting Provider Internal Medicine; Emergency Provider Internal Medicine; PCP Internal Medicine; Visit Provider Internal Medicine
DX: I11.0 Hypertensive heart disease with heart failure (principal); J96.01 Acute respiratory failure with hypoxia; I27.29 Other secondary pulmonary hypertension; Z99.81 Dependence on supplemental oxygen; E11.9 Type 2 diabetes mellitus without complications; I50.23 Acute on chronic systolic (congestive) heart failure; J44.1 Chronic obstructive pulmonary disease with (acute) exacerbation; Z59.7 Insufficient social insurance and welfare support; G47.33 Obstructive sleep apnea (adult) (pediatric); E78.5 Hyperlipidemia, unspecified; Z91.118 Patient's noncompliance with dietary regimen for other reason; Z20.822 Contact with and (suspected) exposure to COVID-19; Z79.899 Other long term (current) drug therapy
CPT/HCPCS: 36415; 71045; 80053; 82947; 83735; 83880; 84484; 85025; 87635; 93005; 94640; 99285; J1650; J1940; J2930

== ENCOUNTER → 2022-11-30 18:33 | Outpatient (BNV) | payer OTHER, SELFPAY | PROVIDERS: Admitting Provider Internal Medicine; Emergency Provider Internal Medicine; Visit Provider Internal Medicine | DX: I47.1 Supraventricular tachycardia (principal); R94.31 Abnormal electrocardiogram [ECG] [EKG] | CPT/HCPCS: 93010 ==

== ENCOUNTER → 2022-11-30 22:03 | Outpatient (BNV) | payer OTHER, SELFPAY | PROVIDERS: Admitting Provider Internal Medicine; Emergency Provider Internal Medicine; Visit Provider Internal Medicine | DX: I50.9 Heart failure, unspecified (principal) | CPT/HCPCS: 99223; 99232; 99239 ==

== ENCOUNTER 2022-12-26 17:32 | Inpatient (IN) | payer OTHER, SELFPAY ==
--- NOTE | ~2022-12-26 | XR_ITS ---
EXAMINATION: XR CHEST CLINICAL INFORMATION: Dyspnea. COMPARISON: 11/30/2022. TECHNIQUE: Frontal view of the chest was obtained. FINDINGS: The lung volumes are low. The cardiac silhouette is enlarged but stable. There is mild lower lung field increased markings. There is no focal consolidation or pleural effusion. The bony structures and soft tissues are unremarkable. XR/XR chest 1V IMPRESSION: 1. Stable enlargement of the cardiac silhouette. 2. Mild lower lung field increased markings similar to previous is suspected to be chronic and/or technical. 3. There is no focal lung consolidation or evidence for significant pleural effusion.
[2022-12-26 17:37] VITALS: BP 220/120; PULSE 120; O2SAT 94
--- NOTE | 2022-12-26 17:40 | ECG_ITS ---
Test Reason : sob Blood Pressure : / mmHG Vent. Rate : 087 BPM Atrial Rate : 087 BPM P-R Int : 140 ms QRS Dur : 128 ms QT Int : 424 ms P-R-T Axes : 017 004 -31 degrees QTc Int : 510 ms Sinus rhythm with Premature supraventricular complexes Right bundle branch block Abnormal ECG When compared with ECG of 30-NOV-2022 18:48, Nonspecific T wave abnormality now evident in Lateral leads Referred By: Alta Chapman Electronically Signed By:MASSIEL ENCISO
[2022-12-26 17:44] VITALS: BP 191/125; PULSE 96; RESP 30; TEMP 36.4; O2SAT 88; BMI 32.9
[2022-12-26] MEDS: Albuterol Sulfate 2.5 MG/0.5 ML VIAL.NEB 10 MG INHALE (17:47)
[2022-12-26 17:48] VITALS: PULSE 95; RESP 16; O2SAT 99
--- NOTE | 2022-12-26 17:56 | ED_ITS ---
HPI - Asthma General Chief Complaint: Dyspnea Stated Complaint: SOB x 2days, duo neb going now Time Seen by Provider: 12/26/22 17:42 Source: patient, EMS and old records reviewed Mode of arrival: EMS Limitations: no limitations History of Present Illness HPI Narrative: 62 yo female hx of COPD on chronic 4L NC (still a smoker) , pulm HTN, DM, HTN, CHF here with c/o productive cough and wheezing with some sputum production and subjective fevers at home x 2 days. She denies sick contacts, some improvement with nebs. no pain reported. She is compliant with nebs. MD complaint: shortness of breath and wheezing Onset (ago): day(s) (2) Severity: moderate Context: none known Associated symptoms: productive cough Asthma History: adult onset Treatments Prior to Arrival: inhaled bronchodilator Related Data Home Medications Medication Instructions Recorded Confirmed trazodone 50 mg tablet 50 - 100 mg PO BEDTIME PRN Sleep 03/08/20 12/01/22 carvedilol 12.5 mg tablet 1 tab PO BID 07/22/22 12/01/22 Previous Rx's Medication Instructions Recorded quetiapine 50 mg tablet 50 mg PO BID 90 days #180 tabs 12/18/20 sertraline 100 mg tablet 200 mg PO DAILY 90 days #180 tabs 12/18/20 tiotropium bromide 18 mcg capsule 1 cap inhalation DAILY #30 ea 06/29/22 with inhalation device (Spiriva with HandiHaler) furosemide 40 mg tablet 40 mg PO DAILY #30 tabs 07/03/22 folic acid 1 mg tablet 1 mg PO DAILY #90 tabs 09/04/22 isosorbide mononitrate 30 mg 30 mg PO DAILY 90 days #90 tabs 10/05/22 tablet,extended release 24 hr montelukast 10 mg tablet 10 mg PO BEDTIME #30 tabs 11/30/22 Allergies Allergy/AdvReac Type Severity Reaction Status Date / Time nicotine [Nicotine] Allergy Mild ITCHING Verified 10/02/22 10:13 WITH THE PATCHES topiramate Allergy Mild inadequealte Verified 10/02/22 10:13 response Review of Systems Review of Systems: Constitutional : pos Fever, No Chills ENT/Mouth : No Hoarseness, No sore throat, No Rhinorrhea Eyes: No Redness, No Discharge, No Vision Changes Cardiovascular : No Chest Pain, positive SOB, positive Dyspnea on Exertion, No Edema Respiratory : positive Cough, pos Sputum, positive Wheezing, Gastrointestinal : No Nausea, No Vomiting, No Diarrhea, No abdominal Pain Genitourinary : No Dysuria, No Hematuria Musculoskeletal : No joint pain, No Myalgias Skin : No rash Neuro : No Weakness, No Numbness, No Headache Psych : No anxiety, depression Heme/Lymph: No Bruising, No Bleeding Endocrine : No Polyuria, No Polydipsia All other systems reviewed and are negative [facility] Past Medical History Attestation statement: The following information was validated with the patient. Source: old records reviewed Medical History Acute and chronic respiratory failure with hypoxia Anxiety Atelectasis, right Chronic respiratory failure Depression Diabetes Essential hypertension HFrEF (heart failure with reduced ejection fraction) HLD (hyperlipidemia) HTN (hypertension) Hypertensive emergency Non-rheumatic mitral regurgitation Nonischemic cardiomyopathy KELLIE (obstructive sleep apnea) Osteoporosis Pulmonary hypertension Respiratory failure with hypoxia and hypercapnia Severe chronic obstructive pulmonary disease Supraventricular tachycardia Tobacco abuse Surgical History Bilateral ankle fractures History of total abdominal hysterectomy Family History Family History Father No problems noted. 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) Unable to assess alcohol history related to: Unable to respond Alcohol intake: never Patient Tobacco Use Status: Current someday Tobacco user Tobacco use type: Cigarette Cigarettes Per Day: 4 Years Smoked: 50 +/- e-Cigarette/Vaping Use: Never Used Second Hand Smoke Exposure: No Advance Directives: Yes Advance Directives on File: Yes Advance Directives Date on File: 04/30/20 service: No Current occupational status: disabled Cognitive needs: Yes Hearing needs: No Vision needs: No Physical Exam Vital Signs: Vital Signs: Last Vital Signs Temp 97.8 F 12/26/22 18:30 Pulse 87 12/26/22 19:10 Resp 16 12/26/22 19:10 BP 142/91 H 12/26/22 18:30 Pulse Ox 82 L 12/26/22 18:30 O2 Del Method Nasal Cannula 12/26/22 18:30 O2 Flow Rate 4 12/26/22 18:30 BMI result Body Mass Index 32.9 Appearance: Alert. Oriented X3. Mild acute distress. Eyes: Pupils equal, round and reactive to light. ENT: Pharynx normal. Neck: Normal inspection. Neck supple. CVS: Normal heart rate and rhythm. Pulses normal. Respiratory: Mild respiratory distress - tachypnea and retractions. Breath sounds very diminished and wheezes throughout Abdomen: Soft and nontender. Skin: Skin warm and dry. Normal skin color. Normal skin turgor. Extremities: trace ankle pitting lower extremity edema. No calf ttp Neuro: Oriented X 3. No motor deficit. No sensory deficit. Course Course Course Narrative: IV lasix ordered BNP elevated Medications Administered Discontinued Medications Generic Name Dose Route Start Last Admin Trade Name Freq PRN Reason Stop Dose Admin Albuterol Sulfate 10 mg 12/26/22 17:40 12/26/22 17:47 Albuterol Sulfate 2.5 Mg/0.5 Ml Vial.Neb INHALE 12/26/22 17:41 10 mg ONCE ONE Administration Albuterol/Ipratropium 3 ml 12/26/22 18:58 12/26/22 19:10 Albuterol/Iprat 2.5/0.5mg 3 Ml Ampul.Neb INHALE 12/26/22 18:59 3 ml ONCE ONE Administration Furosemide 40 mg 12/26/22 18:39 12/26/22 18:51 Furosemide 40 Mg/4 Ml Vial IVPUSH 12/26/22 18:40 40 mg ONCE ONE Administration Protocol Ceftriaxone Sodium 1 gm/ 50 mls @ 100 mls/hr 12/26/22 17:55 12/26/22 20:05 Sodium Chloride IV 12/26/22 18:24 100 mls/hr ONCE ONE Administration Methylprednisolone Sodium Succinate 60 mg 12/26/22 17:40 12/26/22 18:00 Methylprednisolone Sod Succ 125 Mg/2 Ml Vial IVPUSH 12/26/22 17:41 60 mg ONCE ONE Administration Medical Decision Making Medical Decision Making MDM Narrative: 62 yo female hx of COPD on chronic 4L NC (still a smoker) , pulm HTN, DM, HTN, CHF here with c/o cough, fevers, sputum and increased work of breathing - she has tachypnea and wheezes I have ordered labs cultures CXR - IV steroids - lactic acid and 10mg hour long neb - empiric ceftriaxone given her reports of sputum and fevers. Will observe for improvement. Possible admission. No sig fluid overload on exam but hx of CHF. Differential Diagnosis Differential Diagnoses: The differential diagnosis associated with the presentation includes COPD and CHF Admission/Observation Consideration of admission/observation: Escalation of care including admission/observation considered possible admission given resp status - will admit anytime she moves desaturates to 70% on 4L NC Consult Healthcare Provider Management of the patient was discussed with: Hospitalist (will admit patient) Lab Data MDM Lab Attestation statement: I reviewed the patient's lab results. 12/26/22 18:05 Labs: Lab Results 12/26/22 12/26/22 12/26/22 Range/Units 18:05 18:05 18:05 WBC (4.8-10.8) X10*3/uL RBC (4.20-5.50) X10*6/uL Hgb (12.0-16.0) g/dl Hct (37.0-47.0) % MCV (80.0-98.0) fL MCH (27.0-33.0) pg MCHC (31.0-35.0) g/dl RDW (11.0-16.0) % Plt Count (160-400) X10*3/uL MPV (9.4-12.3) fL Immature Gran % (Auto) (0.0-0.4) % Neut % (Auto) (45-73) % Lymph % (Auto) (20-40) % [place] % (Auto) (2-11) % Eos % (Auto) (0-4) % Baso % (Auto) (0-2) % Lymph # (Auto) (1.2-4.9) X10*3/uL [place] # (Auto) (0.1-1.2) X10*3/uL Eos # (Auto) (0.0-0.4) X10*3/uL Baso # (Auto) (0.0-0.2) X10*3/uL Abs Immat Gran (auto) (0.00-0.03) X10*3/uL Absolute Neuts (auto) (2.0-8.3) x10*3/uL Absolute Nucleated RBC (0.0-0.012) X10*3/uL Nucleated RBC % (auto) (0.0-0.2) /100WBC VBG pH (7.32-7.43) VBG pCO2 mmHg VBG pO2 mmHg VBG HCO3 (22-26) mmol/L VBG O2 Saturation % VBG Base Excess mmol/L Sodium 143 (135-145) mmol/L Potassium 3.3 (3.3-5.1) mmol/L Chloride 104 (96-108) mmol/L Carbon Dioxide 29 (22-29) mmol/L Anion Gap 13 (12-20) BUN 16 (9-16) mg/dL Creatinine 0.84 (0.5-1.4) mg/dL Estim Creat Clear Calc 61.5 Estimated GFR > 60 Random Glucose 189 H (60-115) mg/dL Lactic Acid (0.5-2.0) mmol/L Calcium 9.3 (8.4-10.2) mg/dL Magnesium 1.7 (1.6-2.6) mg/dL Total Bilirubin 0.3 (0.0-1.0) mg/dL Direct Bilirubin 0.1 (0.0-0.5) mg/dL AST 30 (5-31) U/L ALT 14 (0-31) U/L Alkaline Phosphatase 144 H (39-117) U/L Troponin I High Sens 12.4 D (<3.5-17.0) ng/L B-Natriuretic Peptide 1111 H (<100) pg/mL Total Protein 7.7 (6.5-8.0) g/dL Albumin 3.9 (3.5-5.0) g/dL COVID-19 (ANEL) (Negative) COVID-19 Clin Com 12/26/22 12/26/22 12/26/22 Range/Units 18:05 18:06 19:41 WBC 9.1 (4.8-10.8) X10*3/uL RBC 4.23 (4.20-5.50) X10*6/uL Hgb 11.1 L (12.0-16.0) g/dl Hct 35.7 L (37.0-47.0) % MCV 84.4 (80.0-98.0) fL MCH 26.2 L (27.0-33.0) pg MCHC 31.1 (31.0-35.0) g/dl RDW 14.9 (11.0-16.0) % Plt Count 145 L (160-400) X10*3/uL MPV 11.5 (9.4-12.3) fL Immature Gran % (Auto) 0.2 (0.0-0.4) % Neut % (Auto) 86.9 H (45-73) % Lymph % (Auto) 9.2 L (20-40) % [place] % (Auto) 2.7 (2-11) % Eos % (Auto) 0.9 (0-4) % Baso % (Auto) 0.1 (0-2) % Lymph # (Auto) 0.8 L (1.2-4.9) X10*3/uL [place] # (Auto) 0.3 (0.1-1.2) X10*3/uL Eos # (Auto) 0.1 (0.0-0.4) X10*3/uL Baso # (Auto) 0.0 (0.0-0.2) X10*3/uL Abs Immat Gran (auto) 0.02 (0.00-0.03) X10*3/uL Absolute Neuts (auto) 7.9 (2.0-8.3) x10*3/uL Absolute Nucleated RBC 0.000 (0.0-0.012) X10*3/uL Nucleated RBC % (auto) 0.0 (0.0-0.2) /100WBC VBG pH (7.32-7.43) VBG pCO2 mmHg VBG pO2 mmHg VBG HCO3 (22-26) mmol/L VBG O2 Saturation % VBG Base Excess mmol/L Sodium (135-145) mmol/L Potassium (3.3-5.1) mmol/L Chloride (96-108) mmol/L Carbon Dioxide (22-29) mmol/L Anion Gap (12-20) BUN (9-16) mg/dL Creatinine (0.5-1.4) mg/dL Estim Creat Clear Calc Estimated GFR Random Glucose (60-115) mg/dL Lactic Acid 1.5 (0.5-2.0) mmol/L Calcium (8.4-10.2) mg/dL Magnesium (1.6-2.6) mg/dL Total Bilirubin (0.0-1.0) mg/dL Direct Bilirubin (0.0-0.5) mg/dL AST (5-31) U/L ALT (0-31) U/L Alkaline Phosphatase (39-117) U/L Troponin I High Sens (<3.5-17.0) ng/L B-Natriuretic Peptide (<100) pg/mL Total Protein (6.5-8.0) g/dL Albumin (3.5-5.0) g/dL COVID-19 (ANEL) Negative (Negative) COVID-19 Clin Com See Note 12/26/22 Range/Units 20:30 WBC (4.8-10.8) X10*3/uL RBC (4.20-5.50) X10*6/uL Hgb (12.0-16.0) g/dl Hct (37.0-47.0) % MCV (80.0-98.0) fL MCH (27.0-33.0) pg MCHC (31.0-35.0) g/dl RDW (11.0-16.0) % Plt Count (160-400) X10*3/uL MPV (9.4-12.3) fL Immature Gran % (Auto) (0.0-0.4) % Neut % (Auto) (45-73) % Lymph % (Auto) (20-40) % [place] % (Auto) (2-11) % Eos % (Auto) (0-4) % Baso % (Auto) (0-2) % Lymph # (Auto) (1.2-4.9) X10*3/uL [place] # (Auto) (0.1-1.2) X10*3/uL Eos # (Auto) (0.0-0.4) X10*3/uL Baso # (Auto) (0.0-0.2) X10*3/uL Abs Immat Gran (auto) (0.00-0.03) X10*3/uL Absolute Neuts (auto) (2.0-8.3) x10*3/uL Absolute Nucleated RBC (0.0-0.012) X10*3/uL Nucleated RBC % (auto) (0.0-0.2) /100WBC VBG pH 7.41 (7.32-7.43) VBG pCO2 48 mmHg VBG pO2 46 mmHg VBG HCO3 31 H (22-26) mmol/L VBG O2 Saturation 72.0 % VBG Base Excess 5.7 mmol/L Sodium (135-145) mmol/L Potassium (3.3-5.1) mmol/L Chloride (96-108) mmol/L Carbon Dioxide (22-29) mmol/L Anion Gap (12-20) BUN (9-16) mg/dL Creatinine (0.5-1.4) mg/dL Estim Creat Clear Calc Estimated GFR Random Glucose (60-115) mg/dL Lactic Acid (0.5-2.0) mmol/L Calcium (8.4-10.2) mg/dL Magnesium (1.6-2.6) mg/dL Total Bilirubin (0.0-1.0) mg/dL Direct Bilirubin (0.0-0.5) mg/dL AST (5-31) U/L ALT (0-31) U/L Alkaline Phosphatase (39-117) U/L Troponin I High Sens (<3.5-17.0) ng/L B-Natriuretic Peptide (<100) pg/mL Total Protein (6.5-8.0) g/dL Albumin (3.5-5.0) g/dL COVID-19 (ANEL) (Negative) COVID-19 Clin Com Independent Interpretation I performed an independent interpretation of an: EKG and Plain X-Ray (no pneumonia) Interpretation: Rate: 87 Rhythm: NSR [place]: left Normal P waves. Normal GUILLE. RBBB ST T wave : no LAURO, inverted T waves inf / lateral leads qTC: prolonged prior studies: no sig change The study has been interpreted contemporaneously by me. . Radiology Impression Discussion of test interpretation with radiology: I have reviewed the radiologist's reading. External Record Review External record reviewed: Inpatient record Critical Care Time Critical Care Time Critical Care Time: Yes Total Critical Care Time: 45 Attestation: repeat nebs x 3, plan to admit, monitor resp status. hour long neb I attest to this time spent taking care of the patient Discharge Plan Discharge Clinical Impression: Acute exacerbation of chronic obstructive airways disease Congestive heart failure Qualifiers: Heart failure type: unspecified Heart failure chronicity: acute on chronic Qualified Code(s): I50.9 - Heart failure, unspecified Patient Disposition: Admitted As Inpatient
[2022-12-26] MEDS: methylPREDNISolone Sod Succ 125 MG/2 ML VIAL 60 MG IVPUSH (18:00)
[2022-12-26 18:26] LABS: COVID-19 Test Negative (Negative); IDNOW Serial# BCCEAD1C
[2022-12-26 18:28] LABS: Lactic Acid 1.5 mmol/L (0.5-2.0)
[2022-12-26 18:30] VITALS: BP 142/91; PULSE 85; RESP 14; TEMP 36.6; O2SAT 82
[2022-12-26 18:30] LABS: Alanine Aminotransferase 14 U/L (0-31); Albumin Level 3.9 g/dL (3.5-5.0); Alkaline Phosphatase 144 U/L (39-117); Anion Gap 13 (12-20); Aspartate Amino Transferase 30 U/L (5-31); Bilirubin Direct 0.1 mg/dL (0.0-0.5); Bilirubin Total 0.3 mg/dL (0.0-1.0); Blood Urea Nitrogen 16 mg/dL (9-16); Calcium 9.3 mg/dL (8.4-10.2); Carbon Dioxide 29 mmol/L (22-29); Chloride 104 mmol/L (96-108); Creatinine Clr Calc Pharmacy 61.5; Estimated Glomerular Filt Rate > 60; Glucose Random 189 mg/dL (60-115); Magnesium 1.7 mg/dL (1.6-2.6); Potassium 3.3 mmol/L (3.3-5.1); Sodium 143 mmol/L (135-145); Total Protein 7.7 g/dL (6.5-8.0)
[2022-12-26 18:35] LABS: B Type Natriuretic Peptide 1111 pg/mL (<100)
[2022-12-26 18:38] LABS: Troponin-I High Sensitivity 12.4 ng/L (<3.5-17.0)
[2022-12-26] MEDS: Furosemide 40 MG/4 ML VIAL IVPUSH (18:51)
[2022-12-26 19:10] VITALS: PULSE 87; RESP 16; O2SAT 82
[2022-12-26] MEDS: Albuterol/Iprat 2.5/0.5MG 3 ML AMPUL.NEB INHALE (19:10)
[2022-12-26 19:46] LABS: MANUAL DIFF FLAG NO
[2022-12-26 19:51] LABS: Basophils Percent Auto 0.1 % (0-2); Eosinophils Absolute Auto 0.1 X10*3/uL (0.0-0.4); Eosinophils Percent Auto 0.9 % (0-4); Hematocrit 35.7 % (37.0-47.0); Hemoglobin 11.1 g/dl (12.0-16.0); Imm Gran Abs Auto 0.02 X10*3/uL (0.00-0.03); Imm Gran Pct Auto 0.2 % (0.0-0.4); Lymphocytes Absolute Auto 0.8 X10*3/uL (1.2-4.9); Lymphocytes Percent Auto 9.2 % (20-40); Mean Corpuscular HGB Conc 31.1 g/dl (31.0-35.0); Mean Corpuscular Hemoglobin 26.2 pg (27.0-33.0); Mean Corpuscular Volume 84.4 fL (80.0-98.0); Mean Platelet Volume 11.5 fL (9.4-12.3); Monocytes Absolute Auto 0.3 X10*3/uL (0.1-1.2); Monocytes Percent Auto 2.7 % (2-11); Neutrophils Absolute Auto 7.9 x10*3/uL (2.0-8.3); Neutrophils Percent Auto 86.9 % (45-73); Platelet Count 145 X10*3/uL (160-400); Red Blood Count 4.23 X10*6/uL (4.20-5.50); Red Cell Distribution Width 14.9 % (11.0-16.0); White Blood Count 9.1 X10*3/uL (4.8-10.8)
[2022-12-26] MEDS: cefTRIAXone sodium 1 GM in 0.9 % Sodium Chloride 50 ML IV (20:05)
[2022-12-26 20:33] LABS: Venous Blood Gas Refer to POC result
[2022-12-26 20:34] LABS: VBG Base Excess 5.7 mmol/L; VBG HCO3 31 mmol/L (22-26); VBG pCO2 48 mmHg; VBG pH 7.41 (7.32-7.43); VBG pO2 46 mmHg
--- NOTE | 2022-12-26 21:02 | PHA.MEDREC ---
Pharmacy Consult ? Medication Reconciliation Pharmacy has completed the medication reconciliation. Patient reported she does not know the names, and she goes to [facility]. I specific ask patient if she still takes the water pill she reported yes. She also stated she use 2 tablet of trazodone. Jessica Fernandez, PharmD
--- NOTE | 2022-12-26 22:03 | PM.IMHP ---
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 Patient is really noncompliant with diet, reports that she eats a lot of junk food, she lives alone, unable to cook for herself healthy meals. She has no family according to her. She comes in with dyspnea, orthopnea, PND, no lower extremity edema. Denies any cough, no sputum production, no fever or chills. No urinary symptoms. On arrival to the ED patient noted to be hypoxic dropping to 82% despite being on 4 L of nasal cannula Labs are significant for WBC count of 9.1[place] [address], troponin negative Chest x-ray shows mild lower lung field increased marking Patient started on IV diuretics will be admitted for further management Review of Systems Review of Systems: Yes all other systems are reviewed and are negative [facility] Medical History (Updated 12/26/22 @ 22:41 by Carolyn Duvall MD) Acute and chronic respiratory failure with hypoxia Anxiety Atelectasis, right Chronic respiratory failure Depression Diabetes Essential hypertension HFrEF (heart failure with reduced ejection fraction) HLD (hyperlipidemia) HTN (hypertension) Hypertensive emergency Non-rheumatic mitral regurgitation Nonischemic cardiomyopathy KELLIE (obstructive sleep apnea) Osteoporosis Pulmonary hypertension Respiratory failure with hypoxia and hypercapnia Severe chronic obstructive pulmonary disease Supraventricular tachycardia Tobacco abuse Family History Father No problems noted. 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) Unable to assess alcohol history related to: Unable to respond Alcohol intake: never Patient Tobacco Use Status: Current someday Tobacco user Tobacco use type: Cigarette Cigarettes Per Day: 4 Years Smoked: 50 +/- e-Cigarette/Vaping Use: Never Used Second Hand Smoke Exposure: No Advance Directives: Yes Advance Directives on File: Yes Advance Directives Date on File: 04/30/20 service: No Current occupational status: disabled Cognitive needs: Yes Hearing needs: No Vision needs: No Meds Allergies Allergy/AdvReac Type Severity Reaction Status Date / Time nicotine [Nicotine] Allergy Mild ITCHING Verified 10/02/22 10:13 WITH THE PATCHES topiramate Allergy Mild inadequealte Verified 10/02/22 10:13 response Active Medications: Current Medications Azithromycin 500 mg/ Sodium (Chloride) 250 mls @ 125 mls/hr IV ONCE ONE Stop: 12/26/22 22:07 Home Medications Medication Instructions Recorded Confirmed Last Taken Type trazodone 50 mg tablet 100 mg PO BEDTIME 03/08/20 12/26/22 10/18/22 History carvedilol 12.5 mg tablet 1 tab PO BID 07/22/22 12/26/22 10/18/22 History Physical Exam Vital Signs and Narrative: Vital Signs: Last Vital Signs Temp 97.8 F 12/26/22 18:30 Pulse 87 12/26/22 19:10 Resp 16 12/26/22 19:10 BP 142/91 H 12/26/22 18:30 Pulse Ox 82 L 12/26/22 18:30 O2 Del Method Nasal Cannula 12/26/22 18:30 O2 Flow Rate 4 12/26/22 18:30 BMI result Body Mass Index 32.9 Const: General: cooperative and no acute distress Orientation/consciousness: patient oriented x3 Eyes: General: appearance normal, both eyes and all related structures Resp: Other: Diffuse crackles, wheezing on expiration Effort & Inspection: normal respiratory effort Cardio: Rate: regular rate Rhythm: regular rhythm GI: Palpation (GI): Soft to palpation Auscultation: normal bowel sounds Skin: General skin exam: no rashes or lesions noted Neuro: General: patient oriented x3 Cognition (Neuro): normal cognition Extrem: General: Yes normal to inspection and Yes no pedal edema Results Labs 12/26/22 19:41 12/26/22 18:05 Labs: Laboratory Results - last 24 hr 12/26/22 12/26/22 12/26/22 18:05 18:05 18:05 MCV MCH MCHC RDW Plt Count MPV Immature Gran % (Auto) Neut % (Auto) Lymph % (Auto) [place] % (Auto) Eos % (Auto) Baso % (Auto) Lymph # (Auto) [place] # (Auto) Eos # (Auto) Baso # (Auto) Abs Immat Gran (auto) Absolute Neuts (auto) Absolute Nucleated RBC Nucleated RBC % (auto) VBG pH VBG pCO2 VBG pO2 VBG HCO3 VBG O2 Saturation VBG Base Excess Anion Gap 13 Estim Creat Clear Calc 61.5 Estimated GFR > 60 Random Glucose 189 H Lactic Acid 1.5 Calcium 9.3 Magnesium 1.7 Total Bilirubin 0.3 Direct Bilirubin 0.1 AST 30 ALT 14 Alkaline Phosphatase 144 H B-Natriuretic Peptide 1111 H Total Protein 7.7 Albumin 3.9 COVID-19 (ANEL) COVID-19 Sensorin 12/26/22 12/26/22 12/26/22 18:06 19:41 20:30 MCV 84.4 MCH 26.2 L MCHC 31.1 RDW 14.9 Plt Count 145 L MPV 11.5 Immature Gran % (Auto) 0.2 Neut % (Auto) 86.9 H Lymph % (Auto) 9.2 L [place] % (Auto) 2.7 Eos % (Auto) 0.9 Baso % (Auto) 0.1 Lymph # (Auto) 0.8 L [place] # (Auto) 0.3 Eos # (Auto) 0.1 Baso # (Auto) 0.0 Abs Immat Gran (auto) 0.02 Absolute Neuts (auto) 7.9 Absolute Nucleated RBC 0.000 Nucleated RBC % (auto) 0.0 VBG pH 7.41 VBG pCO2 48 VBG pO2 46 VBG HCO3 31 H VBG O2 Saturation 72.0 VBG Base Excess 5.7 Anion Gap Estim Creat Clear Calc Estimated GFR Random Glucose Lactic Acid Calcium Magnesium Total Bilirubin Direct Bilirubin AST ALT Alkaline Phosphatase B-Natriuretic Peptide Total Protein Albumin COVID-19 (ANEL) Negative COVID-19 Clin Com See Note Imaging Radiologist's Impressions: Impressions Chest X-Ray 12/26/22 17:56 IMPRESSION: 1. Stable enlargement of the cardiac silhouette. 2. Mild lower lung field increased markings similar to previous is suspected to be chronic and/or technical. 3. There is no focal lung consolidation or evidence for significant pleural effusion. Assessment and Plan (1) Acute exacerbation of chronic obstructive airways disease: Status: Acute (2) Congestive heart failure: Qualifiers: Heart failure chronicity: acute on chronic Heart failure type: unspecified Qualified Code(s): I50.9 - Heart failure, unspecified Status: Acute (3) Acute and chronic respiratory failure with hypoxia: Status: Acute Plan This is a 62-year-old female past medical history of CHF with reduced ejection fraction comes into the hospital with recurrent admission for CHF exacerbation #?acute on chronic hypoxic respiratory failure - secondary to CHF exacerbation, less likely to be COPD as she has no cough no sputum production - monitor respiratory status, wean O2 down as tolerated # acute CHF exacerbation - has elevated BNP, evidence of pulmonary effusion on x-ray - likely secondary to diet, and her salt intake.? Patient reports a diet of crackers and cheese - will start on IV Lasix, low-sodium diet, strict I&O, - patient can likely be discharged on her home Lasix but has to monitor her diet and reduce her salt intake to reduce exacerbation - I will also consult Case Management for possible outpatient follow-up as patient keeps being admitted at least 1 to 2 times a month for the same, and to reduce her readmission rate # COPD - no evidence of exacerbation but does have wheezing - will treat with DuoNebs, Solu-Medrol - monitor respiratory status # diabetes - will add low-dose sliding scale insulin - diabetic diet # hypertension - stable - continue home antihypertensives DVT prophylaxis:? Lovenox Given patient's need for IV Lasix patient require minimum 2 nights inpatient hospital stay for further management monitoring Time Spent With Patient Time: Total time managing care of this patient today ____ minutes. Quality Stroke Does the patient have a stroke diagnosis?: No VTE Prior VTE?: No VTE Risk Level:: Medical - moderate - high VTE Device Contraindication: Treatment Not Indicated VTE Drug Contraindication: N/A - Med Ordered
[2022-12-26] MEDS: Azithromycin 500 MG in 0.9 % Sodium Chloride 250 ML 125 MG IV (22:05)
[2022-12-26 23:42] VITALS: BP 154/96; PULSE 89; RESP 19; TEMP 36.6; O2SAT 98
[2022-12-27] VITALS (11 sets, daily range): BP systolic 153–189; BP diastolic 80–120; PULSE 76–87; RESP 13–22; TEMP 36.4–37.3; O2SAT 92–98; BMI 28.3
[2022-12-27] MEDS: 0.9 % Sodium Chloride Flush 3 ML SYRINGE IVFLUSH ×3 (00:50→18:03)
[2022-12-27] MEDS: methylPREDNISolone Sod Succ 40 MG/ML VIAL IVPUSH ×2 (05:52→18:03)
[2022-12-27 06:26] LABS: MANUAL DIFF FLAG NO
[2022-12-27] MEDS: Acetaminophen 325 MG TABLET 650 MG PO (06:29)
[2022-12-27 06:32] LABS: Basophils Percent Auto 0.1 % (0-2); Hematocrit 36.4 % (37.0-47.0); Hemoglobin 11.2 g/dl (12.0-16.0); Imm Gran Abs Auto 0.02 X10*3/uL (0.00-0.03); Imm Gran Pct Auto 0.3 % (0.0-0.4); Lymphocytes Absolute Auto 1.2 X10*3/uL (1.2-4.9); Lymphocytes Percent Auto 16.3 % (20-40); Mean Corpuscular HGB Conc 30.8 g/dl (31.0-35.0); Mean Corpuscular Hemoglobin 25.7 pg (27.0-33.0); Mean Corpuscular Volume 83.7 fL (80.0-98.0); Mean Platelet Volume 11.4 fL (9.4-12.3); Monocytes Absolute Auto 0.3 X10*3/uL (0.1-1.2); Monocytes Percent Auto 3.7 % (2-11); Neutrophils Percent Auto 79.6 % (45-73); Platelet Count 181 X10*3/uL (160-400); Red Blood Count 4.35 X10*6/uL (4.20-5.50); Red Cell Distribution Width 14.8 % (11.0-16.0); White Blood Count 7.6 X10*3/uL (4.8-10.8)
[2022-12-27 06:55] LABS: Alanine Aminotransferase 14 U/L (0-31); Albumin Level 4.1 g/dL (3.5-5.0); Alkaline Phosphatase 143 U/L (39-117); Anion Gap 14 (12-20); Aspartate Amino Transferase 23 U/L (5-31); Bilirubin Total 0.3 mg/dL (0.0-1.0); Blood Urea Nitrogen 14 mg/dL (9-16); Calcium 9.5 mg/dL (8.4-10.2); Carbon Dioxide 29 mmol/L (22-29); Chloride 102 mmol/L (96-108); Creatinine Clr Calc Pharmacy 60.5; Estimated Glomerular Filt Rate > 60; Glucose Random 106 mg/dL (60-115); Potassium 3.4 mmol/L (3.3-5.1); Sodium 142 mmol/L (135-145); Total Protein 7.9 g/dL (6.5-8.0)
[2022-12-27] MEDS: Sertraline HCL 100 MG TABLET 200 MG PO (08:32)
[2022-12-27] MEDS: Folic Acid 1 MG TABLET PO (08:32)
[2022-12-27] MEDS: QUEtiapine Fumarate 50 MG TABLET PO ×2 (08:32→22:48)
[2022-12-27] MEDS: Furosemide 40 MG/4 ML VIAL IVPUSH ×2 (08:32→18:03)
[2022-12-27] MEDS: carvediloL 12.5 MG TABLET PO ×2 (08:32→22:48)
[2022-12-27] MEDS: Isosorbide Mononitrate 30 MG TAB.ER.24H PO (08:33)
--- NOTE | 2022-12-27 10:33 | HO.PM.IMPN ---
Subjective Subjective Date of Service: 12/27/22 Interval History: seen and examined this morning follow up for CHF history obtained with the assistance of a translator and interpreter patient reports 3 days of sob she still feels sob but better then on arrival Review of Systems Review of Systems: Yes all other systems are reviewed and are negative Constitutional Constitutional: Denies chills and Denies fever(s) ENT Ears, Nose, Mouth, and Throat: Denies dizziness Cardiovascular Cardiovascular: Denies chest pain, Reports dyspnea and Reports dyspnea on exertion Respiratory Respiratory: Reports dyspnea and Reports dyspnea on exertion Neurologic Neurologic: Denies dizziness Physical Exam Vital Signs: Vital Signs: Last Vital Signs Temp 98.5 F 12/27/22 07:54 Pulse 87 12/27/22 07:54 Resp 20 12/27/22 07:54 BP 162/101 H 12/27/22 07:54 Pulse Ox 97 12/27/22 07:54 O2 Del Method Nasal Cannula 12/27/22 07:54 O2 Flow Rate 6 12/27/22 07:54 BMI result Body Mass Index 28.3 Const: General: alert and awake Nutritional Appearance: overweight Orientation/consciousness: patient oriented x3 Resp: Other: basilar rales; short of breath with long sentences Effort & Inspection: no respiratory distress and no use of accessory muscles Cardio: Rate: regular rate GI: Inspection: No distended Palpation (GI): Soft to palpation Neuro: General: patient oriented x3 and CN's II-XI intact bilaterally Extrem: General: Yes no pedal edema Objective Data Active Medications Acetaminophen (Acetaminophen 325 Mg Tablet) 650 mg PO Q6H PRN PRN Reason: Pain, Mild (Pain Scale 1-3) Last Admin: 12/27/22 06:29 Dose: 650 mg Documented By: ANDREW Albuterol/Ipratropium (Albuterol/Iprat 2.5/0.5mg 3 Ml Ampul.Neb) 3 ml INHALE RQ4H PRN PRN Reason: Shortness of Breath/Wheezing Albuterol/Ipratropium (Albuterol/Iprat 2.5/0.5mg 3 Ml Ampul.Neb) 3 ml INHALE RQ4H WHILE AWAKE ON LICENSE OF [facility] Last Admin: 12/27/22 07:47 Dose: Not Given Documented By: CRISTÓBAL Non-Admin Reason: Patient Asleep Carvedilol (Carvedilol 12.5 Mg Tablet) 12.5 mg PO BID ON LICENSE OF [facility]; Protocol Last Admin: 12/27/22 08:32 Dose: 12.5 mg Documented By: MARTA Docusate Sodium (Docusate Sodium 100 Mg Capsule) 100 mg PO DAILY PRN PRN Reason: Constipation Folic Acid (Folic Acid 1 Mg Tablet) 1 mg PO DAILY ON LICENSE OF [facility] Last Admin: 12/27/22 08:32 Dose: 1 mg Documented By: MARTA Furosemide (Furosemide 40 Mg/4 Ml Vial) 40 mg IVPUSH BID@0900,1800 ON LICENSE OF [facility]; Protocol Last Admin: 12/27/22 08:32 Dose: 40 mg Documented By: MARTA Heparin Sodium (Porcine) (Heparin Sodium,Porcine 5,000 Unit/Ml Vial) 5,000 unit SUBCUT Q12H ON LICENSE OF [facility] Last Admin: 12/27/22 08:34 Dose: Not Given Documented By: MARTA Non-Admin Reason: Patient Refused Isosorbide Mononitrate (Isosorbide Mononitrate 30 Mg Tab.Er.24h) 30 mg PO DAILY ON LICENSE OF [facility]; Protocol Last Admin: 12/27/22 08:33 Dose: 30 mg Documented By: MARTA Methylprednisolone Sodium Succinate (Methylprednisolone Sod Succ 40 Mg/Ml Vial) 40 mg IVPUSH Q12H ON LICENSE OF [facility] Last Admin: 12/27/22 05:52 Dose: 40 mg Documented By: CAITY Montelukast Sodium (Montelukast Sodium 10 Mg Tablet) 10 mg PO BEDTIME ON LICENSE OF [facility] Ondansetron HCl (Ondansetron Hcl 4 Mg/2 Ml Vial) 4 mg IVPUSH Q8H PRN PRN Reason: Nausea and Vomiting Quetiapine Fumarate (Quetiapine Fumarate 50 Mg Tablet) 50 mg PO BID ON LICENSE OF [facility] Last Admin: 12/27/22 08:32 Dose: 50 mg Documented By: MARTA Sertraline HCl (Sertraline Hcl 100 Mg Tablet) 200 mg PO DAILY ON LICENSE OF [facility] Last Admin: 12/27/22 08:32 Dose: 200 mg Documented By: MARTA Sodium Chloride (0.9 % Sodium Chloride Flush 3 Ml Syringe) 3 ml IVFLUSH QSHIFT ON LICENSE OF [facility] Last Admin: 12/27/22 08:33 Dose: 3 ml Documented By: MARTA Tiotropium [place] (Tiotropium [place] 2.5 Mcg Inhaler) 2 puff INHALE RDAILY ON LICENSE OF [facility] Last Admin: 12/27/22 07:48 Dose: Not Given Documented By: CRISTÓBAL Non-Admin Reason: pharmacy called Trazodone HCl (Trazodone Hcl 100 Mg Tablet) 100 mg PO BEDTIME ON LICENSE OF [facility] Labs 12/27/22 06:13 12/27/22 06:13 Labs: Laboratory Results - last 24 hr 12/26/22 12/26/22 12/26/22 18:05 18:05 18:05 MCV MCH MCHC RDW Plt Count MPV Immature Gran % (Auto) Neut % (Auto) Lymph % (Auto) Miller % (Auto) Eos % (Auto) Baso % (Auto) Lymph # (Auto) Miller # (Auto) Eos # (Auto) Baso # (Auto) Abs Immat Gran (auto) Absolute Neuts (auto) Absolute Nucleated RBC Nucleated RBC % (auto) VBG pH VBG pCO2 VBG pO2 VBG HCO3 VBG O2 Saturation VBG Base Excess Anion Gap 13 Estim Creat Clear Calc 61.5 Estimated GFR > 60 Random Glucose 189 H Lactic Acid 1.5 Calcium 9.3 Magnesium 1.7 Total Bilirubin 0.3 Direct Bilirubin 0.1 AST 30 ALT 14 Alkaline Phosphatase 144 H B-Natriuretic Peptide 1111 H Total Protein 7.7 Albumin 3.9 COVID-19 (ANEL) COVID-19 Clin Com 12/26/22 12/26/22 12/26/22 18:06 19:41 20:30 MCV 84.4 MCH 26.2 L MCHC 31.1 RDW 14.9 Plt Count 145 L MPV 11.5 Immature Gran % (Auto) 0.2 Neut % (Auto) 86.9 H Lymph % (Auto) 9.2 L Miller % (Auto) 2.7 Eos % (Auto) 0.9 Baso % (Auto) 0.1 Lymph # (Auto) 0.8 L Miller # (Auto) 0.3 Eos # (Auto) 0.1 Baso # (Auto) 0.0 Abs Immat Gran (auto) 0.02 Absolute Neuts (auto) 7.9 Absolute Nucleated RBC 0.000 Nucleated RBC % (auto) 0.0 VBG pH 7.41 VBG pCO2 48 VBG pO2 46 VBG HCO3 31 H VBG O2 Saturation 72.0 VBG Base Excess 5.7 Anion Gap Estim Creat Clear Calc Estimated GFR Random Glucose Lactic Acid Calcium Magnesium Total Bilirubin Direct Bilirubin AST ALT Alkaline Phosphatase B-Natriuretic Peptide Total Protein Albumin COVID-19 (ANEL) Negative COVID-19 Clin Com See Note 12/27/22 12/27/22 06:13 06:13 MCV 83.7 MCH 25.7 L MCHC 30.8 L RDW 14.8 Plt Count 181 MPV 11.4 Immature Gran % (Auto) 0.3 Neut % (Auto) 79.6 H Lymph % (Auto) 16.3 L Miller % (Auto) 3.7 Eos % (Auto) 0.0 Baso % (Auto) 0.1 Lymph # (Auto) 1.2 Miller # (Auto) 0.3 Eos # (Auto) 0.0 Baso # (Auto) 0.0 Abs Immat Gran (auto) 0.02 Absolute Neuts (auto) 6.0 Absolute Nucleated RBC 0.000 Nucleated RBC % (auto) 0.0 VBG pH VBG pCO2 VBG pO2 VBG HCO3 VBG O2 Saturation VBG Base Excess Anion Gap 14 Estim Creat Clear Calc 60.5 Estimated GFR > 60 Random Glucose 106 Lactic Acid Calcium 9.5 Magnesium Total Bilirubin 0.3 Direct Bilirubin AST 23 ALT 14 Alkaline Phosphatase 143 H B-Natriuretic Peptide Total Protein 7.9 Albumin 4.1 COVID-19 (ANEL) COVID-19 Clin Com Assessment and Plan (1) Congestive heart failure: Status: Acute (2) Acute and chronic respiratory failure with hypoxia: Status: Acute Plan This is a 62 year old female with history of DM, hypertension, CHF with reduced ejection fraction, HLD, KELLIE noncompliant with CPAP, pulmonary hypertension, mood disorder, chronic hypoxemic respiratory failure due to COPD with baseline 4 L oxygen who presents to the emergency department for evaluation of dyspnea. acute on chronic hypoxic respiratory failure secondary to CHF exacerbation and COPD on 4L baseline monitor respiratory status, wean O2 down as tolerated acute on chronic HFrEF EF 40-45% likely secondary to dietary indiscretion continue IV Lasix, low-sodium diet, strict I&O, acute exacerbation of COPD continue DuoNebs, Solu-Medrol diabetes HbA1c in October was 5.5 diabetic diet, follow POCs - if elevated will add SSI hypertension continue coreg, imdur DVT prophylaxis:? heparin attending - Dr. Villarreal patient requires ongoing hospitalization for IV lasix for management of acute CHF exacerbation Time Spent With Patient Time: Total time managing care of this patient today ____ minutes. Quality Stroke Does the patient have a stroke diagnosis?: No VTE Prior VTE?: No VTE Risk Level:: Medical - moderate - high VTE Device Contraindication: Treatment Not Indicated VTE Drug Contraindication: N/A - Med Ordered
[2022-12-27] MEDS: Albuterol/Iprat 2.5/0.5MG 3 ML AMPUL.NEB INHALE ×2 (11:48→16:01)
[2022-12-27 13:07] LABS: Glucose, Whole Blood 134 mg/dL (60-115)
--- NOTE | 2022-12-27 15:02 | MHC.CM.PN ---
EMR REVIEWED, PT ADMITTED W/ACUTE CHF EXAC, CM MET W/PT VIA [facility], PT REPORTS SHE LIVES ALONE, USES HOME O2 4L NC AND A WALKER, PT HAS A MEDICAL PAYMENT POSTER 1H/DAY THU-THU, PT REPORTS SHE WOULD NOT WANT STR HOWEVER IS OPEN TO VNA SERVICES. PT VERIFIES PCP ON FILE IS CORRECT, DENIES RECEIVING ANY COVID VACCINE AND REPORTS ALAN OZUNA [phone] IS HER HCP, COPY REQUESTED. DC PLAN: HOME W/RESUMP OF MEDICAL PAYMENT POSTER W/BLS TRANSPORT
[2022-12-27 16:22] LABS: Glucose, Whole Blood 123 mg/dL (60-115)
[2022-12-27 20:37] LABS: Glucose, Whole Blood 145 mg/dL (60-115)
[2022-12-27] MEDS: Montelukast Sodium 10 MG TABLET PO (22:48)
[2022-12-27] MEDS: traZODone HCL 100 MG TABLET PO (22:48)
[2022-12-28] VITALS (14 sets, daily range): BP systolic 146–190; BP diastolic 80–111; PULSE 72–88; RESP 16–22; TEMP 36.1–36.8; O2SAT 91–100; BMI 27.6
[2022-12-28] MEDS: 0.9 % Sodium Chloride Flush 3 ML SYRINGE IVFLUSH ×4 (01:16→21:38)
[2022-12-28 06:43] LABS: Anion Gap 18 (12-20); Blood Urea Nitrogen 23 mg/dL (9-16); Calcium 9.5 mg/dL (8.4-10.2); Carbon Dioxide 26 mmol/L (22-29); Chloride 101 mmol/L (96-108); Creatinine Clr Calc Pharmacy 57.6; Estimated Glomerular Filt Rate > 60; Glucose Random 92 mg/dL (60-115); Potassium 3.8 mmol/L (3.3-5.1); Sodium 141 mmol/L (135-145)
[2022-12-28 06:49] LABS: B Type Natriuretic Peptide 953 pg/mL (<100)
[2022-12-28 07:21] LABS: Glucose, Whole Blood 84 mg/dL (60-115)
[2022-12-28] MEDS: methylPREDNISolone Sod Succ 40 MG/ML VIAL IVPUSH ×2 (07:31→17:35)
[2022-12-28] MEDS: Albuterol/Iprat 2.5/0.5MG 3 ML AMPUL.NEB INHALE ×4 (08:09→18:49)
[2022-12-28] MEDS: Sertraline HCL 100 MG TABLET 200 MG PO (08:39)
[2022-12-28] MEDS: Folic Acid 1 MG TABLET PO (08:39)
[2022-12-28] MEDS: Isosorbide Mononitrate 30 MG TAB.ER.24H PO (08:39)
[2022-12-28] MEDS: carvediloL 12.5 MG TABLET PO ×2 (08:39→21:38)
[2022-12-28] MEDS: Furosemide 40 MG/4 ML VIAL IVPUSH ×2 (08:39→17:35)
[2022-12-28] MEDS: QUEtiapine Fumarate 50 MG TABLET PO ×2 (08:39→21:38)
--- NOTE | 2022-12-28 11:20 | P.PNIM_ITS ---
Subjective Subjective Date of Service: 12/28/22 Interval History: seen and examined this morning follow up for CHF breathing starting to improve no cough, no chest pain Review of Systems Review of Systems: Yes all other systems are reviewed and are negative Constitutional Constitutional: Denies chills and Denies fever(s) Cardiovascular Cardiovascular: Denies chest pain and Reports dyspnea Respiratory Respiratory: Denies cough and Reports dyspnea Physical Exam Vital Signs: Vital Signs: Last Vital Signs Temp 97.0 F 12/28/22 07:25 Pulse 85 12/28/22 08:14 Resp 18 12/28/22 08:14 BP 160/80 H 12/28/22 07:25 Pulse Ox 100 12/28/22 07:25 O2 Del Method Nasal Cannula 12/28/22 07:25 O2 Flow Rate 6.0 12/28/22 07:25 BMI result Body Mass Index 27.6 Const: General: alert and awake Nutritional Appearance: overweight Orientation/consciousness: patient oriented x3 Resp: Other: basilar rales Effort & Inspection: able to speak in complete sentences, no respiratory distress and no use of accessory muscles Cardio: Rate: regular rate GI: Inspection: No distended Palpation (GI): Soft to palpation Neuro: General: patient oriented x3 and CN's II-XI intact bilaterally Extrem: General: Yes no pedal edema Objective Data Active Medications Acetaminophen (Acetaminophen 325 Mg Tablet) 650 mg PO Q6H PRN PRN Reason: Pain, Mild (Pain Scale 1-3) Last Admin: 12/27/22 06:29 Dose: 650 mg Documented By: ANDREW Albuterol/Ipratropium (Albuterol/Iprat 2.5/0.5mg 3 Ml Ampul.Neb) 3 ml INHALE RQ4H PRN PRN Reason: Shortness of Breath/Wheezing Albuterol/Ipratropium (Albuterol/Iprat 2.5/0.5mg 3 Ml Ampul.Neb) 3 ml INHALE RQ4H WHILE AWAKE [facility] Last Admin: 12/28/22 08:09 Dose: 3 ml Documented By: CRISTÓBAL Carvedilol (Carvedilol 12.5 Mg Tablet) 12.5 mg PO BID [facility]; Protocol Last Admin: 12/28/22 08:39 Dose: 12.5 mg Documented By: MARTA Dextrose (Dextrose 50 % 25 Gm/50 Ml Syringe) 25 gm IVPUSH Q15M PRN; Protocol PRN Reason: per Hypoglycemia Standing Ord. Docusate Sodium (Docusate Sodium 100 Mg Capsule) 100 mg PO DAILY PRN PRN Reason: Constipation Folic Acid (Folic Acid 1 Mg Tablet) 1 mg PO DAILY [facility] Last Admin: 12/28/22 08:39 Dose: 1 mg Documented By: MARTA Furosemide (Furosemide 40 Mg/4 Ml Vial) 40 mg IVPUSH BID@0900,1800 [facility]; Protocol Last Admin: 12/28/22 08:39 Dose: 40 mg Documented By: MARTA Glucose (Glucose Gel 15 Gm Gel..Gram.) 15 gm PO Q15M PRN; Protocol PRN Reason: per Hypoglycemia Standing Ord. Heparin Sodium (Porcine) (Heparin Sodium,Porcine 5,000 Unit/Ml Vial) 5,000 unit SUBCUT Q12H [facility] Last Admin: 12/28/22 08:40 Dose: Not Given Documented By: MARTA Non-Admin Reason: Patient Refused Isosorbide Mononitrate (Isosorbide Mononitrate 30 Mg Tab.Er.24h) 30 mg PO DAILY [facility]; Protocol Last Admin: 12/28/22 08:39 Dose: 30 mg Documented By: MARTA Methylprednisolone Sodium Succinate (Methylprednisolone Sod Succ 40 Mg/Ml Vial) 40 mg IVPUSH Q12H [facility] Last Admin: 12/28/22 07:31 Dose: 40 mg Documented By: JOHN Montelukast Sodium (Montelukast Sodium 10 Mg Tablet) 10 mg PO BEDTIME [facility] Last Admin: 12/27/22 22:48 Dose: 10 mg Documented By: JOHN Ondansetron HCl (Ondansetron Hcl 4 Mg/2 Ml Vial) 4 mg IVPUSH Q8H PRN PRN Reason: Nausea and Vomiting Quetiapine Fumarate (Quetiapine Fumarate 50 Mg Tablet) 50 mg PO BID [facility] Last Admin: 12/28/22 08:39 Dose: 50 mg Documented By: MARTA Sertraline HCl (Sertraline Hcl 100 Mg Tablet) 200 mg PO DAILY [facility] Last Admin: 12/28/22 08:39 Dose: 200 mg Documented By: MARTA Sodium Chloride (0.9 % Sodium Chloride Flush 3 Ml Syringe) 3 ml IVFLUSH QSHIFT [facility] Last Admin: 12/28/22 08:40 Dose: 3 ml Documented By: MARTA Tiotropium [place] (Tiotropium [place] 2.5 Mcg Inhaler) 2 puff INHALE RDAILY [facility] Last Admin: 12/28/22 08:09 Dose: 2 puff Documented By: CRISTÓBAL Trazodone HCl (Trazodone Hcl 100 Mg Tablet) 100 mg PO BEDTIME [facility] Last Admin: 12/27/22 22:48 Dose: 100 mg Documented By: [email or web address] Labs 12/27/22 06:13 12/28/22 06:02 Labs: Laboratory Results - last 24 hr 12/27/22 12/27/22 12/27/22 13:02 15:50 20:33 Anion Gap Estim Creat Clear Calc Estimated GFR POC Glucose 134 H 123 H 145 H Random Glucose Calcium B-Natriuretic Peptide 12/28/22 12/28/22 12/28/22 06:02 06:02 07:17 Anion Gap 18 Estim Creat Clear Calc 57.6 Estimated GFR > 60 POC Glucose 84 Random Glucose 92 Calcium 9.5 B-Natriuretic Peptide 953 H Microbiology Microbiology Results: Microbiology 12/26/22 18:05 Blood Culture - Preliminary Blood - Venous No growth after 24 hours. 12/26/22 20:01 Blood Culture - Preliminary Blood - Venous No growth after 24 hours. Assessment and Plan (1) Acute and chronic respiratory failure with hypoxia: Status: Acute (2) Acute exacerbation of chronic obstructive airways disease: Status: Acute (3) Congestive heart failure: Status: Acute Plan This is a 62 year old female with history of DM, hypertension, CHF with reduced ejection fraction, HLD, KELLIE noncompliant with CPAP, pulmonary hypertension, mood disorder, chronic hypoxemic respiratory failure due to COPD with baseline 4 L oxygen who presents to the emergency department for evaluation of dyspnea. acute on chronic hypoxic respiratory failure secondary to CHF exacerbation and COPD on 4L baseline, still requiring 6L monitor respiratory status, wean O2 down as tolerated acute on chronic HFrEF EF 40-45% likely secondary to dietary indiscretion continue IV Lasix, low-sodium diet I&Os not accurate acute exacerbation of COPD continue Gricel Boone diabetes HbA1c in October was 5.5 diabetic diet, follow POCs - if elevated will add SSI hypertension continue coreg, imdur DVT prophylaxis:? heparin attending - Dr. Tracey patient requires ongoing hospitalization for IV lasix for management of acute CHF exacerbation Time Spent With Patient Time: Total time managing care of this patient today ____ minutes. Quality Stroke Does the patient have a stroke diagnosis?: No VTE Prior VTE?: No VTE Risk Level:: Medical - moderate - high VTE Device Contraindication: Treatment Not Indicated VTE Drug Contraindication: N/A - Med Ordered
[2022-12-28 11:28] LABS: Glucose, Whole Blood 141 mg/dL (60-115)
[2022-12-28] MEDS: Acetaminophen 325 MG TABLET 650 MG PO (13:43)
--- NOTE | 2022-12-28 13:45 | ECG_ITS ---
Test Reason : chest pain Blood Pressure : / mmHG Vent. Rate : 085 BPM Atrial Rate : 085 BPM P-R Int : 142 ms QRS Dur : 128 ms QT Int : 446 ms P-R-T Axes : 037 026 -33 degrees QTc Int : 530 ms Sinus rhythm with marked sinus arrhythmia Right bundle branch block Abnormal ECG When compared with ECG of 26-DEC-2022 18:26, Premature supraventricular complexes are no longer Present Referred By: Carola Amezquita Electronically Signed By:MASSIEL ENCISO
[2022-12-28 17:08] LABS: Glucose, Whole Blood 152 mg/dL (60-115)
--- NOTE | 2022-12-28 18:18 | PC.NURSE ---
report received from overnight RN. Med administered per JUL. Pt complained of chest pain at 1345. 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 Vital signs obtained see chart. EKG obtained per MD order. PRN Medication given per JUL, with relief. pt offered no complaints. safety measures in place. call ferris within reach.
[2022-12-28 20:03] LABS: Glucose, Whole Blood 165 mg/dL (60-115)
[2022-12-28] MEDS: Montelukast Sodium 10 MG TABLET PO (21:38)
[2022-12-28] MEDS: traZODone HCL 100 MG TABLET PO (21:38)
[2022-12-29] VITALS (10 sets, daily range): BP systolic 112–160; BP diastolic 74–100; PULSE 73–89; RESP 14–20; TEMP 36.1–36.4; O2SAT 91–100; BMI 27.4
[2022-12-29] MEDS: methylPREDNISolone Sod Succ 40 MG/ML VIAL IVPUSH ×2 (05:45→17:30)
[2022-12-29 07:07] LABS: Glucose, Whole Blood 101 mg/dL (60-115)
[2022-12-29] MEDS: Albuterol/Iprat 2.5/0.5MG 3 ML AMPUL.NEB INHALE ×4 (07:36→18:51)
[2022-12-29 07:48] LABS: Anion Gap 15 (12-20); Blood Urea Nitrogen 28 mg/dL (9-16); Calcium 9.2 mg/dL (8.4-10.2); Carbon Dioxide 32 mmol/L (22-29); Chloride 97 mmol/L (96-108); Creatinine Clr Calc Pharmacy 51.8; Estimated Glomerular Filt Rate > 60; Glucose Random 99 mg/dL (60-115); Sodium 141 mmol/L (135-145)
[2022-12-29] MEDS: 0.9 % Sodium Chloride Flush 3 ML SYRINGE IVFLUSH ×2 (09:17→17:22)
[2022-12-29] MEDS: Furosemide 40 MG/4 ML VIAL IVPUSH ×2 (09:17→17:21)
[2022-12-29] MEDS: Sertraline HCL 100 MG TABLET 200 MG PO (09:17)
[2022-12-29] MEDS: QUEtiapine Fumarate 50 MG TABLET PO ×2 (09:18→21:20)
[2022-12-29] MEDS: Folic Acid 1 MG TABLET PO (09:18)
[2022-12-29] MEDS: Isosorbide Mononitrate 30 MG TAB.ER.24H PO (09:18)
[2022-12-29] MEDS: carvediloL 12.5 MG TABLET PO ×2 (09:18→21:20)
[2022-12-29] MEDS: Potassium Chloride ER 20 MEQ TAB.ER.PRT 40 MEQ PO (09:56)
[2022-12-29 11:00] LABS: Glucose, Whole Blood 189 mg/dL (60-115)
--- NOTE | 2022-12-29 14:00 | P.PNIM_ITS ---
Subjective Subjective Date of Service: 12/29/22 Interval History: seen and examined this morning follow up for CHF breathing starting to improve no cough, no chest pain Review of Systems Review of Systems: Yes all other systems are reviewed and are negative Constitutional Constitutional: Denies chills and Denies fever(s) Cardiovascular Cardiovascular: Denies chest pain and Reports dyspnea Respiratory Respiratory: Denies cough and Reports dyspnea Physical Exam Vital Signs: Vital Signs: Last Vital Signs Temp 97.5 F 12/29/22 11:03 Pulse 81 12/29/22 11:45 Resp 18 12/29/22 11:18 BP 160/100 H 12/29/22 11:03 Pulse Ox 97 12/29/22 11:03 O2 Del Method Nasal Cannula 12/29/22 11:03 O2 Flow Rate 6 12/29/22 11:03 BMI result Body Mass Index 27.4 Appearing in no acute distress lung sounds are clear to auscultation heart regular rate rhythm, clear S1, S2 positive bowel sounds, abdomen is soft, nontender neuro patient is alert x3, no focal deficits Objective Data Active Medications Acetaminophen (Acetaminophen 325 Mg Tablet) 650 mg PO Q6H PRN PRN Reason: Pain, Mild (Pain Scale 1-3) Last Admin: 12/28/22 13:43 Dose: 650 mg Documented By: MARTA Albuterol/Ipratropium (Albuterol/Iprat 2.5/0.5mg 3 Ml Ampul.Neb) 3 ml INHALE RQ4H PRN PRN Reason: Shortness of Breath/Wheezing Albuterol/Ipratropium (Albuterol/Iprat 2.5/0.5mg 3 Ml Ampul.Neb) 3 ml INHALE RQ4H WHILE AWAKE [facility] Last Admin: 12/29/22 11:12 Dose: 3 ml Documented By: MANISH Carvedilol (Carvedilol 12.5 Mg Tablet) 12.5 mg PO BID [facility]; Protocol Last Admin: 12/29/22 09:18 Dose: 12.5 mg Documented By: MARTA Dextrose (Dextrose 50 % 25 Gm/50 Ml Syringe) 25 gm IVPUSH Q15M PRN; Protocol PRN Reason: per Hypoglycemia Standing Ord. Docusate Sodium (Docusate Sodium 100 Mg Capsule) 100 mg PO DAILY PRN PRN Reason: Constipation Folic Acid (Folic Acid 1 Mg Tablet) 1 mg PO DAILY [facility] Last Admin: 12/29/22 09:18 Dose: 1 mg Documented By: MARTA Furosemide (Furosemide 40 Mg/4 Ml Vial) 40 mg IVPUSH BID@0900,1800 [facility]; Protocol Last Admin: 12/29/22 09:17 Dose: 40 mg Documented By: MARTA Glucose (Glucose Gel 15 Gm Gel..Gram.) 15 gm PO Q15M PRN; Protocol PRN Reason: per Hypoglycemia Standing Ord. Heparin Sodium (Porcine) (Heparin Sodium,Porcine 5,000 Unit/Ml Vial) 5,000 unit SUBCUT Q12H [facility] Last Admin: 12/29/22 09:18 Dose: Not Given Documented By: MARTA Non-Admin Reason: Patient Refused Isosorbide Mononitrate (Isosorbide Mononitrate 30 Mg Tab.Er.24h) 30 mg PO DAILY [facility]; Protocol Last Admin: 12/29/22 09:18 Dose: 30 mg Documented By: MARTA Methylprednisolone Sodium Succinate (Methylprednisolone Sod Succ 40 Mg/Ml Vial) 40 mg IVPUSH Q12H [facility] Last Admin: 12/29/22 05:45 Dose: 40 mg Documented By: LAWANDA Montelukast Sodium (Montelukast Sodium 10 Mg Tablet) 10 mg PO BEDTIME [facility] Last Admin: 12/28/22 21:38 Dose: 10 mg Documented By: LAWANDA Ondansetron HCl (Ondansetron Hcl 4 Mg/2 Ml Vial) 4 mg IVPUSH Q8H PRN PRN Reason: Nausea and Vomiting Quetiapine Fumarate (Quetiapine Fumarate 50 Mg Tablet) 50 mg PO BID [facility] Last Admin: 12/29/22 09:18 Dose: 50 mg Documented By: MARTA Sertraline HCl (Sertraline Hcl 100 Mg Tablet) 200 mg PO DAILY [facility] Last Admin: 12/29/22 09:17 Dose: 200 mg Documented By: MARTA Sodium Chloride (0.9 % Sodium Chloride Flush 3 Ml Syringe) 3 ml IVFLUSH QSHIFT [facility] Last Admin: 12/29/22 09:17 Dose: 3 ml Documented By: MARTA Tiotropium [place] (Tiotropium [place] 2.5 Mcg Inhaler) 2 puff INHALE RDAILY [facility] Last Admin: 12/29/22 07:36 Dose: 2 puff Documented By: MANISH Trazodone HCl (Trazodone Hcl 100 Mg Tablet) 100 mg PO BEDTIME [facility] Last Admin: 12/28/22 21:38 Dose: 100 mg Documented By: LAWANDA Labs 12/27/22 06:13 12/29/22 06:33 Labs: Laboratory Results - last 24 hr 12/28/22 12/28/22 12/29/22 17:05 19:53 06:33 Anion Gap 15 Estim Creat Clear Calc 51.8 Estimated GFR > 60 POC Glucose 152 H 165 H Random Glucose 99 Calcium 9.2 12/29/22 12/29/22 07:00 10:52 Anion Gap Estim Creat Clear Calc Estimated GFR POC Glucose 101 189 H Random Glucose Calcium Microbiology Microbiology Results: Microbiology 12/26/22 18:05 Blood Culture - Preliminary Blood - Venous No growth after 48 hours. 12/26/22 20:01 Blood Culture - Preliminary Blood - Venous No growth after 48 hours. Assessment and Plan (1) Acute and chronic respiratory failure with hypoxia: Status: Acute (2) Acute exacerbation of chronic obstructive airways disease: Status: Acute (3) Congestive heart failure: Status: Acute Plan This is a 62 year old female with history of DM, hypertension, CHF with reduced ejection fraction, HLD, KELLIE noncompliant with CPAP, pulmonary hypertension, mood disorder, chronic hypoxemic respiratory failure due to COPD with baseline 4 L oxygen who presents to the emergency department for evaluation of dyspnea. acute on chronic hypoxic respiratory failure secondary to CHF exacerbation and COPD on 4L baseline, still requiring 6L monitor respiratory status, wean O2 down as tolerated acute on chronic HFrEF EF 40-45% likely secondary to dietary indiscretion continue IV Lasix, low-sodium diet I&Os not accurate acute exacerbation of COPD continue Gricel Boone diabetes HbA1c in October was 5.5 diabetic diet, follow POCs - if elevated will add SSI hypertension continue coreg, imdur DVT prophylaxis:? heparin attending - Dr. George patient requires ongoing hospitalization for IV lasix for management of acute CHF exacerbation Time Spent With Patient Time: Total time managing care of this patient today ____ minutes. Quality Stroke Does the patient have a stroke diagnosis?: No VTE Prior VTE?: No VTE Risk Level:: Medical - moderate - high VTE Device Contraindication: Treatment Not Indicated VTE Drug Contraindication: N/A - Med Ordered
[2022-12-29 16:12] LABS: Glucose, Whole Blood 158 mg/dL (60-115)
[2022-12-29 19:39] LABS: Glucose, Whole Blood 148 mg/dL (60-115)
[2022-12-29] MEDS: traZODone HCL 100 MG TABLET PO (21:20)
[2022-12-29] MEDS: Montelukast Sodium 10 MG TABLET PO (21:20)
[2022-12-30] VITALS (8 sets, daily range): BP systolic 126–166; BP diastolic 83–100; PULSE 76–88; RESP 16–20; TEMP 36.1–36.3; O2SAT 91–98; BMI 28.4
[2022-12-30] MEDS: 0.9 % Sodium Chloride Flush 3 ML SYRINGE IVFLUSH ×2 (01:08→09:48)
[2022-12-30] MEDS: methylPREDNISolone Sod Succ 40 MG/ML VIAL IVPUSH (06:27)
--- NOTE | 2022-12-30 07:00 | CA_ITS ---
Transthoracic Echocardiogram Patient (Last, First, Middle): Paola Romero, Gender: Female Date of : 1960 Age: 62 Procedure Date: 12/30/2022 Procedure Type: Transthoracic E[place]ocardiogram [place] [facility] [place]: 149.86 cm Weight: 63.5 kg BSA: 1.58 m2 Heart Rate: 81 bpm BP: 166 / 100 mmHg Elementary Esl Teacher: SB Referring MD: Rachel Winslow NP Symptoms: chf Study Quality: Adequate ECG Rhythm: Sinus Conclusions: - Normal left ventricular cavity size. There is mildly increased left ventricular wall thickness. The left ventricular systolic function is low normal. The visually estimated ejection fraction is between 50-55%. - The left atrium is severely dilated. - There is moderate to severe mitral valve regurgitation. - Moderately elevated right atrial pressure. Moderate pulmonary hypertension is present. Findings Left Ventricle Normal left ventricular cavity size. There is mildly increased left ventricular wall thickness. The left ventricular systolic function is low normal. The visually estimated ejection fraction is between 50-55%. Abnormal diastolic function is noted. E/E prime ratio is between 8 and 15 consistent with indeterminate filling pressures. There is moderate septal asymmetric hypertrophy. Right Ventricle Normal right ventricular cavity size and systolic function. Atria The left atrium is severely dilated. The right atrium is mildly dilated. Aortic Valve There is a normal trileaflet aortic valve. There is no aortic valve stenosis. There is no aortic valve regurgitation. Mitral Valve Normal mitral valve structure and function. There is moderate to severe mitral valve regurgitation. There is no mitral valve stenosis. Pulmonic Valve Normal pulmonic valve structure and function. There is trace pulmonic valve regurgitation. Tricuspid Valve Normal tricuspid valve structure. There is trace tricuspid valve regurgitation. The right ventricular systolic pressure is 50 mmHg. Moderately elevated right atrial pressure. Moderate pulmonary hypertension is present. Great Vessels All visible segments of the aorta are normal in size. The visualized portions of the pulmonary artery and branches are normal. Venous The inferior vena cava is normal in size and collapses less than 50% with inspiration. Pericardium/Pleural There is no evidence of pericardial effusion. Prior Study Comparison Changes noted compared to prior study dated: 05/02/2022. EF 50-55%, RV appears to be normal in size, mod to severe MR present. Measurements 2D Linear Measurements IVSd: 1.40 0.6-0.9/0.6-1.0 cm LVIDd: 4.80 3.9-5.3/4.2-5.9 cm LVIDd Index: 3.04 2.4-3.2/2.2-3.1 cm/m2 LVIDs: 3.50 2.0-3.6 cm LVPWd: 1.00 0.7-1.1 cm LA Diam: 4.60 2.7-3.8/3.0-4.0 cm LAIDs Index: 2.91 1.5-2.3 cm/m2 LV Mass: 273.16 67-162/88-224 g LV Mass Index: 172.89 43-95/49-115 g/m2 LVOT Diam: 2.20 3.0+(-)1.3 cm 2D Systolic Function EF 4C: 48.90 >55% EF 2C: 36.40 >55% EF BiP: 43.80 >55% Mitral Valve MV Pk E: 0.51 MV PK A: 0.83 MV Decel Time: 111.00 E/A: 0.60 PHT: 32.00 MVA PHT: 6.88 Decel Brooks: 4.64 MR Vol - PW Dopp: 32.06 MR VTI: 2.29 MR ERO: 14.00 MR Alias Ambrosio: 0.43 MR RAD: 0.60 Aortic Valve AoV Pk Ambrosio: 0.95 AoV Pk Grad: 4.00 PEPITO: 3.08 LVOT LVOT Pk Ambrosio: 0.76 LVOT Mn Ambrosio: 0.50 LVOT VTI: 0.14 LVOT Pk Grad: 2.00 LVOT Mn Grad: 1.00 LVOT Diam: 2.20 LVOT Area: 3.80 Diastolic Function MV Pk E: 0.51 MV Pk A: 0.83 E/A: 0.60 Right Ventricle TAPSE (mm): 22.20 TVS' Ambrosio: 14.00 Tricuspid Valve TR Pk Ambrosio: 3.25 TR Pk Grad: 42.00 RA Press: 8.00 RVSP: 50.00 Great Vessels Aorta Sinus of Valsalva: 3.10 2.0-3.5 cm Ao Asc: 3.20 2.1-3.4 cm Pulmonary Valve PV Pk Ambrosio: 0.74 Peak PV Grad: 2.00 Updated in Other Vendor System with Status of Final Kemar Curry MD electronically signed on 12/30/2022 1:06:53 PM with status of Final
[2022-12-30 07:41] LABS: Glucose, Whole Blood 102 mg/dL (60-115)
[2022-12-30] MEDS: Albuterol/Iprat 2.5/0.5MG 3 ML AMPUL.NEB INHALE ×3 (07:55→14:51)
[2022-12-30 08:06] LABS: Anion Gap 16 (12-20); Blood Urea Nitrogen 35 mg/dL (9-16); Calcium 9.4 mg/dL (8.4-10.2); Carbon Dioxide 29 mmol/L (22-29); Chloride 100 mmol/L (96-108); Creatinine Clr Calc Pharmacy 49.9; Estimated Glomerular Filt Rate 59; Glucose Random 113 mg/dL (60-115); Potassium 3.2 mmol/L (3.3-5.1); Sodium 142 mmol/L (135-145)
[2022-12-30 08:14] LABS: B Type Natriuretic Peptide 242 pg/mL (<100)
[2022-12-30] MEDS: Furosemide 40 MG/4 ML VIAL IVPUSH (09:47)
[2022-12-30] MEDS: Sertraline HCL 100 MG TABLET 200 MG PO (09:47)
[2022-12-30] MEDS: Folic Acid 1 MG TABLET PO (09:47)
[2022-12-30] MEDS: Isosorbide Mononitrate 30 MG TAB.ER.24H PO (09:47)
[2022-12-30] MEDS: QUEtiapine Fumarate 50 MG TABLET PO (09:47)
[2022-12-30] MEDS: carvediloL 12.5 MG TABLET PO (09:48)
--- NOTE | 2022-12-30 11:27 | PM.DS ---
DS: Providers Provider Date of Service: 12/30/22 Date of admission: 12/26/22 21:59 Primary care physician: Analisa Chavez MD DS: Diagnosis Discharge Diagnosis (1) Acute and chronic respiratory failure with hypoxia: Status: Acute (2) Acute exacerbation of chronic obstructive airways disease: Status: Acute (3) Congestive heart failure: Status: Acute DS: Summary Hospital Course Hospital Course: history and physical as per admitting provider. 62-year-old female past medical history of CHF with reduced ejection fraction, diabetes, HTN, KELLIE pulmonary hypertension, frequent admission for CHF exacerbation comes into the hospital with complaints of shortness of breath time is 2 days.? Patient is really noncompliant with diet, reports that she eats a lot of junk food, she lives alone, unable to cook for herself healthy meals.? She has no family according to her.? She comes in with dyspnea, orthopnea, PND, no lower extremity edema.? Denies any cough, no sputum production, no fever or chills.? No urinary symptoms.?On arrival to the ED patient noted to be hypoxic dropping to 82% despite being on 4 L of nasal cannula Labs are significant for WBC count of 9.1, [place] [address], troponin negative. Echocardiogram with EF 50-55%. Chest x-ray shows mild lower lung field increased marking Patient started on IV diuretics will be admitted for further management 62-year-old woman treated for acute on chronic hypoxic respiratory failure secondary to acute heart failure with reduced ejection fraction exacerbation and COPD exacerbation. Treated with IV steroids and scheduled DuoNebs. Heart failure treated with IV Lasix. BNP went from 1111-242. Patient's respiratory symptoms have significantly improved. Chronically on 4 L of nasal cannula oxygen at home. Diabetes mellitus. Continue home medications Hypertension. Continue Coreg and imdur Time Spent with Patient Time attestation: Total time managing care of this patient today ____ minutes. Discharge coordination time: Greater than 30 minutes Quality: Safe Use of Opioids Does Pt have an Active Cancer Diagnosis on the Problem List?: No Quality: Stroke Does the patient have a stroke diagnosis?: No Physical Exam Vital Signs: Vital Signs: Last Vital Signs Temp 97.4 F 12/30/22 11:10 Pulse 85 12/30/22 11:24 Resp 18 12/30/22 11:24 BP 158/90 H 12/30/22 11:10 Pulse Ox 92 12/30/22 11:10 O2 Del Method Nasal Cannula 12/30/22 11:10 O2 Flow Rate 3 12/30/22 11:10 BMI result Body Mass Index 28.4 DS: Data Data Completed and Pending Completed studies during hospitalization [Text1]: Procedures Assistance with Respiratory Ventilation, Less than 24 Consecutive Hours, Continuous Positive Airway Pressure (10/19/22) Labs on day of discharge: Laboratory Results - last 24 hr 12/29/22 12/29/22 12/30/22 16:05 19:18 07:15 Sodium Potassium Chloride Carbon Dioxide Anion Gap BUN Creatinine Estim Creat Clear Calc Estimated GFR POC Glucose 158 H 148 H 102 Random Glucose Calcium B-Natriuretic Peptide 12/30/22 12/30/22 07:45 07:45 Sodium 142 Potassium 3.2 L Chloride 100 Carbon Dioxide 29 Anion Gap 16 BUN 35 H Creatinine 0.96 Estim Creat Clear Calc 49.9 Estimated GFR 59 POC Glucose Random Glucose 113 Calcium 9.4 B-Natriuretic Peptide 242 H Preliminary micro results at discharge 12/26/22 18:05 Blood Culture - Preliminary Blood - Venous No growth after 48 hours. 12/26/22 20:01 Blood Culture - Preliminary Blood - Venous No growth after 48 hours. Discharge Plan Discharge Anticipated Discharge Date/Time: 12/30/22 11:21 Patient Disposition: Home Health Service Discharge Diagnosis: heart failure with reduced ejection fraction exacerbation Acute on chronic hypoxic respiratory failure COPD exacerbation Referrals: Mariely DURANT [Outside] - 1 Week Analisa Carr MD [Primary Care Provider] - 1 Week Discharge Medications: New prednisone 10 mg tablet 40 mg PO DIRECTED Qty: 4 0RF Rx Instructions: see taper instructions Continued sertraline 100 mg tablet 200 mg PO DAILY 90 Days Qty: 180 1RF quetiapine 50 mg tablet 50 mg PO BID 90 Days Qty: 180 1RF Spiriva with HandiHaler 18 mcg capsule, w/inhalation device 1 cap inhalation DAILY Qty: 30 5RF furosemide 40 mg tablet 40 mg PO DAILY Qty: 30 3RF isosorbide mononitrate 30 mg tablet extended release 24 hr 30 mg PO DAILY 90 Days Qty: 90 3RF Protocol: Hold for SBP< HOLD for SBP < : 90 montelukast 10 mg tablet 10 mg PO BEDTIME Qty: 30 11RF trazodone 50 mg tablet 100 mg PO BEDTIME folic acid 1 mg Tablet 1 mg PO DAILY Qty: 90 4RF carvedilol 12.5 mg tablet 1 tab PO BID Discharge Orders: Discharge Order (Routine); Ordered 12/30/22 Ordered By: Rachel Winslow Diet: Advance to usual diet Activity on Discharge: As tolerated Stand Alone Forms: Patient Portal Discharge page Care Plan Goals: continue home oxygen Health Concerns: heart failure with reduced ejection fraction exacerbation Acute on chronic hypoxic respiratory failure COPD exacerbation Plan of Treatment: follow-up with primary care provider as needed Take all medications as prescribed Assessment: see discharge summary
[2022-12-30 11:29] LABS: Glucose, Whole Blood 182 mg/dL (60-115)
[2022-12-30] MEDS: Potassium Chloride ER 20 MEQ TAB.ER.PRT 40 MEQ PO (11:37)
--- NOTE | 2022-12-30 11:41 | P.F2F_ITS ---
Service Date Service Date: 12/30/22 Encounter Date of encounter: 12/30/22 Reasons for Services Signs and symptoms assessed: acute hypoxic respiratory failure secondary to CHF and COPD exacerbation Reason for nursing home: CV/CP assess and/or care Homebound: Leaving the home is medically contraindicated at this time without the asist of a device and/or another person due th the listed conditions above and below. Reason homebound: unsteady gait / fall risk and shortness of breath with minimal effort Certification: Based on the above findings, I certify that this patient is confined to the home and needs intermittent nursing home care, physical therapy and/or speech therapy, or continues to need occupational therapy. The patient is under my care, and I have initiated the establishment of the plan of care. The patient will be followed by a physician who will periodically review the plan of care. Time Spent With Patient Time: Total time managing care of this patient today ____ minutes.
--- NOTE | 2022-12-30 11:48 | MHC.CM.PN ---
Per [employer], Patient will be medically cleared for dc to home today, with services. A referral has been made to [facility] and they have been made aware of today's dc. CM spoke with Patient's only Contact/KARTHIKEYAN/Chanelle @ [phone], who agrees to be at Patient's home when she arrives.Patient will return home today via [facility].
== END 2022-12-30 16:29 | disposition home health service (06) | DRG 140 ==
LOC: HO.ED 20:10 → HO.EDOVER 22:10 → HO.IMC 12-27 04:50
PROVIDERS: Physician Assistant Medical; Admitting Provider Internal Medicine; Emergency Provider Emergency Medicine; PCP Internal Medicine; Visit Provider Nurse Practitioner Acute Care
DX: J44.1 Chronic obstructive pulmonary disease with (acute) exacerbation (principal); J96.21 Acute and chronic respiratory failure with hypoxia; I50.23 Acute on chronic systolic (congestive) heart failure; I27.20 Pulmonary hypertension, unspecified; I11.0 Hypertensive heart disease with heart failure; Z99.81 Dependence on supplemental oxygen; G47.33 Obstructive sleep apnea (adult) (pediatric); Z20.822 Contact with and (suspected) exposure to COVID-19; Z79.52 Long term (current) use of systemic steroids; Z79.899 Other long term (current) drug therapy
CPT/HCPCS: 36415; 71045; 80048; 80053; 80076; 82803; 82947; 83605; 83735; 83880; 84484; 85025; 87040; 87635; 93005; 93306; 94640; 97161; 99285; J0456; J0696; J1940; J2920; J2930; Q9957

== ENCOUNTER 2022-12-26 21:59 | Outpatient (BNV) | payer OTHER, SELFPAY | END 2022-12-30 07:00 | PROVIDERS: Admitting Provider Internal Medicine; Emergency Provider Emergency Medicine; PCP Internal Medicine; Visit Provider Internal Medicine Cardiovascular Disease | DX: I50.9 Heart failure, unspecified (principal) | CPT/HCPCS: 93306 ==

== ENCOUNTER → 2022-12-26 21:59 | Outpatient (BNV) | payer OTHER, SELFPAY | PROVIDERS: Admitting Provider Internal Medicine; Emergency Provider Emergency Medicine; PCP Internal Medicine; Visit Provider Internal Medicine | DX: J96.21 Acute and chronic respiratory failure with hypoxia (principal); I50.9 Heart failure, unspecified; J44.1 Chronic obstructive pulmonary disease with (acute) exacerbation | CPT/HCPCS: 99223; 99232; 99233; 99239; G0180 ==

== ENCOUNTER → 2023-01-12 11:00 | Outpatient (AMB) | payer OTHER, SELFPAY ==
[2023-01-12 10:44] VITALS: BP 124/86; BMI 27.5
--- NOTE | 2023-01-12 10:44 | MHC.PC.OV ---
Vital Signs 01/12/23 10:44 Height 4 ft 11 in Weight 136 lb BMI 27.5 BP 124/86 Blood Pressure Location Lt brachial Position Sitting Intake Visit Reasons: COPD Intake Note: Patient here for a follow up COPD Crusher Foreman Required: No Accompanied by: PAVING BLOCK CUTTER Allergies nicotine [Nicotine] Allergy (Mild, Verified 01/12/23 10:49) ITCHING WITH THE PATCHES topiramate Allergy (Mild, Verified 01/12/23 10:49) inadequealte response Medication List - Last Reconciled 01/12/23 by Analisa Chavez MD carvedilol 1 tab PO BID folic acid 1 mg PO DAILY furosemide 60 mg (1.5 x 40 mg) PO DAILY 30 days isosorbide mononitrate ER 30 mg See Protocol PO DAILY 90 days montelukast 10 mg PO BEDTIME quetiapine 50 mg PO BID 90 days sertraline 200 mg (2 x 100 mg) PO DAILY 90 days tiotropium bromide (Spiriva with HandiHaler) 1 cap inhalation DAILY trazodone 100 mg PO BEDTIME Tobacco use date assessed: 10/02/22 Dental Screening Dental Screen Date: 01/12/23 Did you have a dental visit in the last 12 months?: No Did you have a dental problem in the last 6 months where you did not have access to dental care?: No Was dental information given to patient?: Patient declined HPI HPI Comments History of Present Illness Details This is a 62-year-old female with severe COPD, congestive heart failure, mitral regurgitation and mild major depression that comes today accompanied by PAVING BLOCK CUTTER for follow-up on her conditions. She is on 4 L of oxygen by nasal cannula and is saturating 87 to 88%. Last echocardiogram was a month ago with ejection fraction 50-55% showing moderate to severe mitral valve regurgitation. I will refer him to Cardiology. Will also referred to pulmonology. Depression stable with SSRIs. Walks with a walker for gait stability. [facility] Medical History (Updated 01/12/23 @ 11:04 by Analisa Chavez MD) Congestive heart failure Acute and chronic respiratory failure with hypoxia Respiratory failure with hypoxia and hypercapnia Atelectasis, right Hypertensive emergency Pulmonary hypertension Osteoporosis Essential hypertension Supraventricular tachycardia Nonischemic cardiomyopathy Non-rheumatic mitral regurgitation Tobacco abuse Depression Anxiety Chronic respiratory failure Severe chronic obstructive pulmonary disease HFrEF (heart failure with reduced ejection fraction) KELLIE (obstructive sleep apnea) Diabetes HLD (hyperlipidemia) HTN (hypertension) Surgical History History of total abdominal hysterectomy Bilateral ankle fractures Family History Father No problems noted. Mother Liver cancer Hypertension Social History Household Members: None Household Members Other:: 1 Housing: Apartment Do you presently have visiting nurse or other home services: No Unable to assess alcohol history related to: Unable to respond Alcohol intake: never Patient Tobacco Use Status: Current someday Tobacco user Tobacco use type: Cigarette Cigarettes Per Day: 4 Years Smoked: 50 +/- e-Cigarette/Vaping Use: Never Used Second Hand Smoke Exposure: No Advance Directives Date on File: 04/30/20 service: No Current occupational status: disabled Cognitive needs: Yes Hearing needs: No Vision needs: No Questionnaire Thrive Questionnaire Date Thrive assessed: 12/27/22 DIANELYS-7 AMB Questionnaire DIANELYS-7 Date DIANELYS - 7 assessed: 10/02/22 Source: Developed by Drs. Dennis Zayas, Cora Conrad, Sacha Rayo and colleagues, with an educational antonia from [employer] Review of Systems Const All systems reviewed & are unremarkable except as noted in HPI and below Eyes Reports no additional complaints, Denies change in vision and Denies other visual disturbances Card Denies chest pain at rest, Denies chest pain with activity, Denies edema, Denies irregular heart rhythm, Denies claudication, Denies dyspnea, Denies dyspnea on exertion, Denies orthopnea, Denies paroxysmal nocturnal dyspnea and Denies slow heart rate Resp Denies cough, Denies dyspnea and Denies dyspnea on exertion GI Denies abdominal pain, Denies change in bowel habits, Denies excessive flatus, Denies nausea and Denies vomiting Denies urinary incontinence, Denies urinary hesitancy and Denies urinary urgency Musc Denies abnormal gait, Denies atrophy, Denies deformity and Denies limited range of motion Skin/Breast Denies bleeding lesions, Denies changing lesions and Denies rash Neuro Denies abnormal gait and Denies lack of coordination Physical exam (Primary Care) Vital Signs: Last Vital Signs BP 124/86 01/12/23 10:44 BMI result Body Mass Index 27.5 Tobacco/Smoking Status: Tobacco use Status Tobacco use date assessed 10/02/22 01/12/23 10:49 Patient Tobacco Use Status Current someday Tobacco 01/12/23 10:49 Tobacco use type Cigarette 01/12/23 10:49 e-Cigarette/Vaping Use Never Used 01/12/23 10:49 Thrive Assessment: Date of Thrive Assessment Date Thrive assessed 12/27/22 01/12/23 10:49 Eyes General: appearance normal, both eyes and all related structures Eyelids: Yes eyelids normal Conjunctivae: conjunctivae normal Neck Neck: Yes normal visual inspection and Yes supple Resp Effort & Inspection: normal respiratory effort Auscultation: clear to auscultation bilaterally Cardio Jugular venous distension: no JVD Rate: regular rate Rhythm: regular rhythm Heart sounds: S1 normal heart sound present and S2 normal heart sound present Extrem General: Yes full ROM Assessment and Plan Assessment & Plan (1) Congestive heart failure: Code(s): I50.9 - Heart failure, unspecified Qualifiers: Heart failure chronicity: acute on chronic Heart failure type: unspecified Qualified Code(s): I50.9 - Heart failure, unspecified Plan: Continue carvedilol. Continue furosemide 40 mg once a day. Weight patient daily. Follow-up with Cardiology. The goal is to not gain a 5 lb in a week. (2) Severe chronic obstructive pulmonary disease: Code(s): J44.9 - Chronic obstructive pulmonary disease, unspecified Plan: Start Breo. Continue Spiriva. Use rescue inhaler as needed. Follow-up with pulmonology. Start low-dose prednisone. (3) Mild recurrent major depression: Code(s): F33.0 - Major depressive disorder, recurrent, mild Plan: Continue sertraline (4) Mitral regurgitation: Code(s): I34.0 - Nonrheumatic mitral (valve) insufficiency Plan: Follow-up with Cardiology. Orders: Orders Vitamin D 25-OH Total Today E55.9 - Vitamin D deficiency, unspecified Comprehensive [place]. Panel Fast Today I10 - Essential (primary) hypertension Lipid Panel Today E78.5 - Hyperlipidemia, unspecified Microalbumin, Random (w Creat) Today E11.9 - Type 2 diabetes mellitus without complications Vitamin B12 and Folate Today E53.8 - Deficiency of other specified B group vitamins Referrals Pulmonary Medicine Referral J44.9 - Chronic obstructive pulmonary disease, unspecified Cardiology Referral I34.0 - Nonrheumatic mitral (valve) insufficiency, I50.9 - Heart failure, unspecified Medications: New Ventolin HFA 90 mcg/actuation (albuterol sulfate) 2 puffs inhalation Q6H 30 days PRN 18 grams 2RF shortness of breath or wheezing NS prednisone 5 mg PO DAILY 90 days 90 tabs 1RF fluticasone furoate-vilanterol 100-25 mcg/dose (Breo Ellipta) 1 inh inhalation DAILY 30 days 60 ea 0RF Discontinued furosemide Discontinued Reason: Patient Completed Course 60 mg (1.5 x 40 mg) PO DAILY 30 days 45 tabs 3RF Coding Level of Care Code Est Pt Level 4 (23007) Diagnoses Congestive heart failure I50.9 Heart failure chronicity: acute on chronic Heart failure type: unspecified Severe chronic obstructive pulmonary disease J44.9 Mild recurrent major depression F33.0 Mitral regurgitation I34.0 Time Spent (min) 23
== END | disposition home or self-care (01) ==
LOC: HO.HMGH 10:38
PROVIDERS: PCP Internal Medicine; Visit Provider Internal Medicine
DX: I50.9 Heart failure, unspecified (principal); J44.9 Chronic obstructive pulmonary disease, unspecified; F33.0 Major depressive disorder, recurrent, mild; I34.0 Nonrheumatic mitral (valve) insufficiency
CPT/HCPCS: 99214

== ENCOUNTER 2023-03-30 10:07 | Emergency (ER) | payer OTHER, SELFPAY ==
--- NOTE | ~2023-03-30 | XR_ITS ---
EXAMINATION: XR CHEST CLINICAL INFORMATION: Shortness of breath. COMPARISON: Chest radiograph 12/26/2022. TECHNIQUE: Frontal view of the chest was obtained. FINDINGS: Patient's rotation limits the examination. Stable prominence of the cardiomediastinal silhouette. Stable right is greater than left bibasilar interstitial prominence/bronchial wall thickening. No new focal airspace density. No pleural effusion or pneumothorax. No acute osseous findings. XR/XR chest 1V IMPRESSION: Overall similar right greater than left bibasilar interstitial thickening/bronchial wall thickening. No new focal consolidation. No pleural effusion or pneumothorax.
[2023-03-30 10:14] VITALS: BP 136/84; PULSE 93; PULSE 98; RESP 18; TEMP 36.4; O2SAT 93; O2SAT 95; BMI 30.3
--- NOTE | 2023-03-30 10:18 | ECG_ITS ---
Test Reason : chest pain Blood Pressure : / mmHG Vent. Rate : 083 BPM Atrial Rate : 075 BPM P-R Int : 152 ms QRS Dur : 130 ms QT Int : 444 ms P-R-T Axes : 065 053 -06 degrees QTc Int : 521 ms Sinus rhythm with Premature atrial complexes Incomplete right bundle branch block T wave abnormality, consider inferolateral ischemia Abnormal ECG When compared with ECG of 28-DEC-2022 13:43, No significant changes seen Referred By: Generic ED Physician Electronically Signed By:REGINALD DOBBS MD
[2023-03-30 10:31] VITALS: BP 168/103
--- NOTE | 2023-03-30 11:12 | PC.NURSE ---
pt a&o x4, pleasant, calm, and cooperative. 22G IV placed to RAC. labs drawn and sent. pt on bedside monitor. currently resting on stretcher in no apparent distress. rr even/unlabored. call ferris within pt reach. plan of care ongoing.
[2023-03-30 11:13] LABS: MANUAL DIFF FLAG NO
[2023-03-30] MEDS: methylPREDNISolone Sod Succ 125 MG/2 ML VIAL IVPUSH (11:15)
[2023-03-30 11:16] LABS: Basophils Percent Auto 0.1 % (0-2); Eosinophils Absolute Auto 0.1 X10*3/uL (0.0-0.4); Eosinophils Percent Auto 0.8 % (0-4); Hematocrit 36.4 % (37.0-47.0); Hemoglobin 11.3 g/dl (12.0-16.0); Imm Gran Abs Auto 0.01 X10*3/uL (0.00-0.03); Imm Gran Pct Auto 0.1 % (0.0-0.4); Lymphocytes Absolute Auto 1.1 X10*3/uL (1.2-4.9); Mean Corpuscular Hemoglobin 26.5 pg (27.0-33.0); Mean Corpuscular Volume 85.4 fL (80.0-98.0); Mean Platelet Volume 10.7 fL (9.4-12.3); Monocytes Absolute Auto 0.4 X10*3/uL (0.1-1.2); Monocytes Percent Auto 5.7 % (2-11); Neutrophils Absolute Auto 5.5 x10*3/uL (2.0-8.3); Neutrophils Percent Auto 78.3 % (45-73); Platelet Count 152 X10*3/uL (160-400); Red Blood Count 4.26 X10*6/uL (4.20-5.50); Red Cell Distribution Width 14.8 % (11.0-16.0); White Blood Count 7.1 X10*3/uL (4.8-10.8)
[2023-03-30 11:29] LABS: Anion Gap 12 (12-20); Blood Urea Nitrogen 17 mg/dL (9-16); Calcium 9.3 mg/dL (8.4-10.2); Carbon Dioxide 37 mmol/L (22-29); Chloride 95 mmol/L (96-108); Creatinine Clr Calc Pharmacy 48.4; Estimated Glomerular Filt Rate 58; Glucose Random 162 mg/dL (60-115); Potassium 2.9 mmol/L (3.3-5.1); Sodium 141 mmol/L (135-145)
[2023-03-30] MEDS: Albuterol Sulfate 2.5 MG, Albuterol/Iprat 2.5/0.5MG 3 ML 3 ML INHALE (11:30)
[2023-03-30 11:32] VITALS: PULSE 84; RESP 18; O2SAT 94
[2023-03-30 11:37] LABS: Troponin-I High Sensitivity 17.6 ng/L (<3.5-17.0)
[2023-03-30 11:52] LABS: Influenza A PCR NEGATIVE (Negative); Influenza B PCR NEGATIVE (Negative); Resp Syncy Virus RNA Qual PCR NEGATIVE (Negative); SARS COV2 PCR INHOUSE NEGATIVE (Negative)
--- NOTE | 2023-03-30 13:09 | ED_ITS ---
HPI - Chest Pain General Chief Complaint: Chest Pain Stated Complaint: DIZZY Time Seen by Provider: 03/30/23 10:25 Source: patient and EMS Mode of arrival: EMS Limitations: language barrier History of Present Illness HPI narrative: History by spanish interpreter/translator. Increasing shortness of breath, known COPD. The breathing has been getting worse for weeks Onset (ago): day(s) Timing of current episode: constant Onset: during rest Related Data Home Medications Medication Instructions Recorded Confirmed trazodone 50 mg tablet 100 mg PO BEDTIME 03/08/20 01/12/23 Previous Rx's Medication Instructions Recorded quetiapine 50 mg tablet 50 mg PO BID 90 days #180 tabs 12/18/20 sertraline 100 mg tablet 200 mg (2 x 100 mg) PO DAILY 90 12/18/20 days #180 tabs folic acid 1 mg tablet 1 mg PO DAILY #90 tabs 09/04/22 isosorbide mononitrate 30 mg 30 mg PO DAILY 90 days #90 tabs 10/05/22 tablet,extended release 24 hr montelukast 10 mg tablet 10 mg PO BEDTIME #30 tabs 11/30/22 carvedilol 12.5 mg tablet 12.5 mg PO BID #90 tabs 01/12/23 fluticasone furoate 100 1 inh inhalation DAILY 30 days #60 01/12/23 mcg-vilanterol 25 mcg/dose ea inhalation powder (Breo Ellipta) prednisone 5 mg tablet 5 mg PO DAILY 90 days #90 tabs 01/12/23 tiotropium bromide 18 mcg capsule 1 cap inhalation DAILY #30 ea 03/10/23 with inhalation device (Spiriva with HandiHaler) Ventolin HFA 90 mcg/actuation 2 puff inhalation Q6H PRN 03/25/23 aerosol inhaler (albuterol sulfate) shortness of breath or wheezing 30 days #18 grams prednisone 20 mg tablet 60 mg (3 x 20 mg) PO DAILY #12 tabs 03/30/23 Allergies Allergy/AdvReac Type Severity Reaction Status Date / Time nicotine [Nicotine] Allergy Mild ITCHING Verified 01/12/23 10:49 WITH THE PATCHES topiramate Allergy Mild inadequealte Verified 01/12/23 10:49 response Review of Systems 2 Review of Systems: Yes all other systems are reviewed and are negative Neurologic: Denies Sensory deficit (Neuro) PMFSH Past Medical History Medical History Congestive heart failure Acute and chronic respiratory failure with hypoxia Respiratory failure with hypoxia and hypercapnia Atelectasis, right Hypertensive emergency Pulmonary hypertension Osteoporosis Essential hypertension Supraventricular tachycardia Nonischemic cardiomyopathy Non-rheumatic mitral regurgitation Tobacco abuse Depression Anxiety Chronic respiratory failure Severe chronic obstructive pulmonary disease HFrEF (heart failure with reduced ejection fraction) KELLIE (obstructive sleep apnea) Diabetes HLD (hyperlipidemia) HTN (hypertension) Surgical History History of total abdominal hysterectomy Bilateral ankle fractures Family History Family History Father No problems noted. Mother Liver cancer Hypertension Social History Household Members: None Household Members Other:: 1 Housing: Apartment Do you presently have visiting nurse or other home services: No Unable to assess alcohol history related to: Unable to respond Alcohol intake: never Patient Tobacco Use Status: Current someday Tobacco user Tobacco use type: Cigarette Cigarettes Per Day: 4 Years Smoked: 50 +/- Smoked in Last 30 Days: Yes e-Cigarette/Vaping Use: Never Used Second Hand Smoke Exposure: No Use of substances other than those prescribed or required for medical reasons: No Advance Directives: Yes Advance Directives on File: Yes Advance Directives Date on File: 04/30/20 service: No Current occupational status: disabled Cognitive needs: Yes Hearing needs: No Vision needs: No Physical Exam 2 Vital Signs: Vital Signs: Last Vital Signs Temp 97.6 F 03/30/23 15:18 Pulse 88 03/30/23 15:18 Resp 24 H 03/30/23 15:18 BP 152/108 H 03/30/23 15:18 Pulse Ox 95 03/30/23 15:18 O2 Del Method Nasal Cannula 03/30/23 15:18 O2 Flow Rate 3 03/30/23 15:18 Oxygen Flow Rate 4 03/30/23 10:14 BMI result Body Mass Index 30.3 Const: Other: thin chronically ill short of breath Nutritional Appearance: average body habitus Orientation/consciousness: oriented to person and patient oriented x3 Limitations: no limitations HEENT: Head: Yes normal to inspection Ears: external ears normal General nose exam: Normal external nose present Mouth: Normal oral and palatal mucosa present and oropharynx normal Throat: Yes posterior oropharynx normal Eyes: General: appearance normal, both eyes and all related structures Neck: Other: supple Neck: Yes normal visual inspection Chest: Chest palpation & inspection: normal inspection of the chest Resp: Other: diffuse wheezing Cardio: Jugular venous distension: no JVD Rate: regular rate Rhythm: r egular rhythm Heart sounds: S1 normal heart sound present and S2 normal heart sound present GI: Inspection: Yes normal to inspection Palpation (GI): Soft to palpation, nontender and No hepatosplenomegaly present Auscultation: normal bowel sounds : General: Yes no CVA tenderness Back/Spine/Pelvis: Back: no CVA tenderness Skin: General skin exam: no rashes or lesions noted Neuro: General: oriented to person and patient oriented x3 Cranial nerves: Yes CN's II-XII intact bilaterally Motor exam (neuro): 5/5 motor strength present throughout Sensory Exam: No Sensory deficit (Neuro) Extrem: General: Yes normal to inspection Psych: Appearance: grossly normal Course Reevaluation(s) Reevaluation #1: patient greatly improved will dc on prednisone Time: 15:51 Reevaluation #2: smoking cessation: discussed for 3 minutes modalities for smoking cessation Time: 15:55 Medications Administered Discontinued Medications Generic Name Dose Route Start Last Admin Trade Name Freq PRN Reason Stop Dose Admin Albuterol Sulfate 2.5 mg/ 0 mg 03/30/23 11:27 03/30/23 11:30 Albuterol/Ipratropium 3 ml INHALE 03/30/23 11:28 1 dose ONCE ONE Administration Methylprednisolone Sodium Succinate 125 mg 03/30/23 10:35 03/30/23 11:15 Methylprednisolone Sod Succ 125 Mg/2 Ml Vial IVPUSH 03/30/23 10:36 125 mg ONCE ONE Administration Potassium Chloride 20 meq 03/30/23 13:06 03/30/23 14:12 Potassium Chloride Er 20 Meq Tab.Er.Prt PO 03/30/23 13:07 20 meq ONCE ONE Administration Medical Decision Making Differential Diagnosis Differential Diagnoses: The differential diagnosis associated with the presentation includes (COPD exacerbation, COVID, pneumonia, chf all considered) Admission/Observation Consideration of admission/observation: Escalation of care including admission/observation considered (upon arrival patient was considered for admission) Lab Data [facility] Lab Attestation statement: I reviewed the patient's lab results. (hypokalemia noted) 03/30/23 11:05 03/30/23 11:05 Labs: Lab Results 03/30/23 Range/Units 11:05 WBC 7.1 (4.8-10.8) X10*3/uL RBC 4.26 (4.20-5.50) X10*6/uL Hgb 11.3 L (12.0-16.0) g/dl Hct 36.4 L (37.0-47.0) % MCV 85.4 (80.0-98.0) fL MCH 26.5 L (27.0-33.0) pg MCHC 31.0 (31.0-35.0) g/dl RDW 14.8 (11.0-16.0) % Plt Count 152 L (160-400) X10*3/uL MPV 10.7 (9.4-12.3) fL Immature Gran % (Auto) 0.1 (0.0-0.4) % Neut % (Auto) 78.3 H (45-73) % Lymph % (Auto) 15.0 L (20-40) % Jones % (Auto) 5.7 (2-11) % Eos % (Auto) 0.8 (0-4) % Baso % (Auto) 0.1 (0-2) % Lymph # (Auto) 1.1 L (1.2-4.9) X10*3/uL Jones # (Auto) 0.4 (0.1-1.2) X10*3/uL Eos # (Auto) 0.1 (0.0-0.4) X10*3/uL Baso # (Auto) 0.0 (0.0-0.2) X10*3/uL Abs Immat Gran (auto) 0.01 (0.00-0.03) X10*3/uL Absolute Neuts (auto) 5.5 (2.0-8.3) x10*3/uL Absolute Nucleated RBC 0.000 (0.0-0.012) X10*3/uL Nucleated RBC % (auto) 0.0 (0.0-0.2) /100WBC Sodium 141 (135-145) mmol/L Potassium 2.9 L (3.3-5.1) mmol/L Chloride 95 L (96-108) mmol/L Carbon Dioxide 37 H (22-29) mmol/L Anion Gap 12 (12-20) BUN 17 H (9-16) mg/dL Creatinine 0.98 (0.5-1.4) mg/dL Estim Creat Clear Calc 48.4 Estimated GFR 58 Random Glucose 162 H (60-115) mg/dL Calcium 9.3 (8.4-10.2) mg/dL Magnesium 2.0 (1.6-2.6) mg/dL Troponin I High Sens 17.6 H (<3.5-17.0) ng/L Influenza Type A (PCR) NEGATIVE (Negative) Influenza Type B (PCR) NEGATIVE (Negative) RSV RNA Qual (PCR) NEGATIVE (Negative) SARS-CoV-2 RNA (RT-PCR) NEGATIVE (Negative) Independent Interpretation I performed an independent interpretation of an: EKG (sinus RBBB rate 80, no st or twave changes) and Plain X-Ray (no infiltrate) Independent Historian Clinical information obtained from an independent historian. History obtained from or confirmed by: EMS Prescription Management I considered prescription management with: Antibiotic (no pneumonia on xray, no fever so abx not given) Chronic Conditions Patient?s care impacted by: Other (copd, smoking) Discharge Plan Discharge Clinical Impression: Severe chronic obstructive pulmonary disease Patient Disposition: Home, Self-Care Instructions: COPD (Chronic Obstructive Pulmonary Disease) (ED) Prescriptions: New prednisone 20 mg tablet 60 mg PO DAILY Qty: 12 0RF No Action sertraline 100 mg tablet 200 mg PO DAILY 90 Days Qty: 180 1RF quetiapine 50 mg tablet 50 mg PO BID 90 Days Qty: 180 1RF isosorbide mononitrate 30 mg tablet extended release 24 hr 30 mg PO DAILY 90 Days Qty: 90 3RF Protocol: Hold for SBP< HOLD for SBP < : 90 montelukast 10 mg tablet 10 mg PO BEDTIME Qty: 30 11RF carvedilol 12.5 mg tablet 12.5 mg PO BID Qty: 90 1RF tiotropium bromide [Spiriva with HandiHaler] 18 mcg capsule, w/inhalation device 1 cap inhalation DAILY Qty: 30 5RF albuterol sulfate [Ventolin HFA] 90 mcg/actuation HFA aerosol inhaler 2 puff inhalation Q6H PRN (Reason: shortness of breath or wheezing) 30 Days Qty: 18 2RF trazodone 50 mg tablet 100 mg PO BEDTIME folic acid 1 mg Tablet 1 mg PO DAILY Qty: 90 4RF prednisone 5 mg tablet 5 mg PO DAILY 90 Days Qty: 90 1RF fluticasone furoate-vilanterol [Breo Ellipta] 100-25 mcg/dose blister with device 1 inh inhalation DAILY 30 Days Qty: 60 0RF Referrals: Physician,Unknown J [Primary Care Provider] - 5 days
[2023-03-30] MEDS: Potassium Chloride ER 20 MEQ TAB.ER.PRT PO (14:12)
--- NOTE | 2023-03-30 14:12 | PC.NURSE ---
pt resting comfortably on stretcher. offers no complaints miguel. rr even/unlabored. call ferris within reach. plan of care ongoing.
[2023-03-30 15:18] VITALS: BP 152/108; PULSE 88; RESP 24; TEMP 36.4; O2SAT 95
--- NOTE | 2023-03-30 16:05 | PC.NURSE ---
pt resting quietly, in no apparent distress. rr even/unlabored. plan of care ongoing.
--- NOTE | 2023-03-30 20:01 | PC.NURSE ---
This RN wheeled pt to son, car. Pt discharge prior to shift. Pt refusing to wait for ambulance. Education on importance due to oxygen necessity, pt refused and left with son.
== END 2023-03-30 20:03 | disposition home or self-care (01) ==
PROVIDERS: Emergency Provider Emergency Medicine
DX: J44.89 Other specified chronic obstructive pulmonary disease (principal); R06.02 Shortness of breath; Z20.822 Contact with and (suspected) exposure to COVID-19; Z20.828 Contact with and (suspected) exposure to other viral communicable diseases; I11.0 Hypertensive heart disease with heart failure; I50.9 Heart failure, unspecified; E11.9 Type 2 diabetes mellitus without complications; E78.5 Hyperlipidemia, unspecified; F17.210 Nicotine dependence, cigarettes, uncomplicated; Z79.899 Other long term (current) drug therapy
CPT/HCPCS: 0241U; 36415; 71045; 80048; 83735; 84484; 85025; 93005; 94640; 96374; 99284; 99285; J2930

== ENCOUNTER 2023-04-03 09:29 | Outpatient (AMB) | payer OTHER, SELFPAY ==
[2023-04-03 09:33] VITALS: BP 140/90; PULSE 85; BMI 28.0
--- NOTE | 2023-04-03 09:33 | MHC.OFFVIS ---
Intake Vital Signs 04/03/23 09:33 Height 4 ft 10 in Weight 134 lb 0.657 oz BMI 28.0 BP 140/90 H Blood Pressure Location Lt brachial Position Sitting Pulse 85 Pulse Source Pulse Oximeter Intake Visit Reasons: f/u Director Of Undergraduate Admissions Required: Yes Director Of Undergraduate Admissions Language: Gift Officer Name: ceci sorenson [id number] Allergies nicotine [Nicotine] Allergy (Mild, Verified 04/03/23 09:37) ITCHING WITH THE PATCHES topiramate Allergy (Mild, Verified 04/03/23 09:37) inadequealte response Medication List - Last Reconciled 04/03/23 by Keiry Horne, TERMITE CONTROL REPRESENTATIVE-C carvedilol 12.5 mg PO BID fluticasone furoate-vilanterol 100-25 mcg/dose (Breo Ellipta) 1 inh inhalation DAILY 30 days folic acid 1 mg PO DAILY furosemide (Lasix) 40 mg PO DAILY isosorbide mononitrate ER 30 mg See Protocol PO DAILY 90 days montelukast 10 mg PO BEDTIME prednisone 60 mg (3 x 20 mg) PO DAILY prednisone 5 mg PO DAILY 90 days quetiapine 50 mg PO BID 90 days sertraline 200 mg (2 x 100 mg) PO DAILY 90 days tiotropium bromide (Spiriva with HandiHaler) 1 cap inhalation DAILY trazodone 100 mg PO BEDTIME Ventolin HFA 90 mcg/actuation (albuterol sulfate) 2 puffs inhalation Q6H PRN 30 days NS HPI f/u HPI Details Paola is a 62-year-old female with past medical history of hypertension, diabetes, COPD, nonischemic cardiomyopathy with EF as low as 30 to 35% presents for follow-up after recent echocardiogram. Today she reports that she has been feeling about the same as he her usual. She has chronic shortness of breath with activity and wears her oxygen continually. She is able to sleep on her left side with 1 pillow. She denies exertional chest discomfort. She does have some tenderness in her left chest region to palpation. No reports of heart palpitations, dizziness, presyncope, syncope, falls. No PND, orthopnea or edema. Taking meds as directed. Ambulates with a walker. Certified spanish interpreter/translator used. [facility] Medical History Congestive heart failure Acute and chronic respiratory failure with hypoxia Respiratory failure with hypoxia and hypercapnia Atelectasis, right Hypertensive emergency Pulmonary hypertension Osteoporosis Essential hypertension Supraventricular tachycardia Nonischemic cardiomyopathy Non-rheumatic mitral regurgitation Tobacco abuse Depression Anxiety Chronic respiratory failure Severe chronic obstructive pulmonary disease HFrEF (heart failure with reduced ejection fraction) KELLIE (obstructive sleep apnea) Diabetes HLD (hyperlipidemia) HTN (hypertension) Surgical History History of total abdominal hysterectomy Bilateral ankle fractures Family History Father No problems noted. Mother Liver cancer Hypertension Social History Household Members: None Household Members Other:: 1 Housing: Apartment Do you presently have visiting nurse or other home services: No Unable to assess alcohol history related to: Unable to respond Alcohol intake: never Patient Tobacco Use Status: Current someday Tobacco user Tobacco use type: Cigarette Cigarettes Per Day: 4 Years Smoked: 50 +/- e-Cigarette/Vaping Use: Never Used Second Hand Smoke Exposure: No Advance Directives Date on File: 04/30/20 service: No Current occupational status: disabled Cognitive needs: Yes Hearing needs: No Vision needs: No Review of Systems Const Details: wearing O2, ambulates with walker All systems reviewed & are unremarkable except as noted in HPI and below ENT Denies dizziness Card Reports chest pain, Denies chest pain at rest, Denies chest pain with activity, Denies rapid heart rate, Denies pedal edema, Denies edema, Denies leg edema, Denies lightheadedness, Denies palpitations, Reports dyspnea, Reports dyspnea on exertion and Reports orthopnea Resp Denies cough, Reports dyspnea and Reports dyspnea on exertion GI Denies hematochezia and Denies change in stool character Musc Denies abnormal gait, Reports limited range of motion, Reports muscle cramps, Denies muscle weakness, Denies numbness, Denies radiating pain into limb, Denies stiffness and Denies tingling Neuro Denies abnormal gait, Denies dizziness, Denies numbness and Denies tingling Endo Denies palpitations Physical Exam Vital Signs: Last Vital Signs Pulse 85 04/03/23 09:33 BP 140/90 H 04/03/23 09:33 BMI result Body Mass Index 28.0 Const General: cooperative, comfortable and no acute distress Orientation/consciousness: patient oriented x3 Neck Neck: Yes normal visual inspection Resp Effort & Inspection: normal respiratory effort Auscultation: clear to auscultation bilaterally, no crackles, no rales, no rhonchi and no wheezes Cardio Jugular venous distension: no JVD Rate: regular rate Rhythm: regular rhythm Heart sounds: S1 normal heart sound present, S2 normal heart sound present, no murmurs and no rubs Neuro General: patient oriented x3 Extrem General: Yes normal to inspection Psych Appearance: grossly normal Mental Status: mental status grossly normal Speech and movement: Normal speech and movement present Assessment & Plan Assessment & Plan (1) Congestive heart failure: Code(s): I50.9 - Heart failure, unspecified Qualifiers: Heart failure chronicity: acute on chronic Heart failure type: unspecified Qualified Code(s): I50.9 - Heart failure, unspecified Plan: History of nonischemic cardiomyopathy with Congestive heart failure in past. Most recent echo 12/30/2022 showing EF 50-55%, left atrium severely dilate, moderate to severe mitral regurgitation, moderate increase in the right atrial pressure and moderate pulmonary hypertension. On exam today she does have some noted shortness of breath with walking. She is wearing oxygen with nasal cannula which she says is continual. She tells me her breathing is at her baseline. She does have scattered rales/rhonchi. No leg edema noted. She continues on Lasix 40 mg daily. She is on carvedilol for neurohormonal modulation. She is not on Ric/Arb for unclear reason. Prior notes reviewed and she had been on losartan. I do not see it listed as an allergy. Labs done on 03/30/2023 showed potassium 2.9, creatinine 0.98. She was in the ER that day for COPD exacerbation. I do not see that she was given potassium supplement. Will send potassium supplement to the pharmacy. Will have her start on low-dose losartan for blood pressure control and neurohormonal modulation. BMP in 1 week. Signs and symptoms of heart failure reviewed with her. Cardiology follow-up in 6 months, sooner if needed. (2) Chest pain: Code(s): R07.9 - Chest pain, unspecified Plan: Atypical left-sided chest discomfort. Tender to palpation. Informed her this is noncardiac pain. Nuclear stress test from 03/29/2018 shows normal myocardial perfusion imaging. No indication for repeat stress test at this time (3) Mitral regurgitation: Code(s): I34.0 - Nonrheumatic mitral (valve) insufficiency Plan: Last echocardiogram shows moderate to severe mitral regurgitation. She has had heart failure symptoms in the past 20 EF was reduced to 30%. At present has chronic shortness of breath from her COPD. No clear signs of fluid overload on exam. (4) Essential hypertension: Code(s): I10 - Essential (primary) hypertension Plan: Mild elevation today. Adding low-dose lisinopril. (5) COPD (chronic obstructive pulmonary disease): Code(s): J44.9 - Chronic obstructive pulmonary disease, unspecified Qualifiers: COPD type: emphysema Emphysema type: centrilobular Qualified Code(s): J43.2 - Centrilobular emphysema Plan: Follows with pulmonology. Hospital admissions for exacerbation this past year. Combination with COPD/ Congestive heart failure. (6) Hypokalemia: Code(s): E87.6 - Hypokalemia Plan: Potassium 2.9 on 03/30/2023. Sending supplement to the pharmacy and planning recheck. Plan Time spent on chart review, documentation, interview, assessment, orders Orders: Orders Basic Metabolic Panel 5 Days E87.6 - Hypokalemia Medications: New potassium chloride ER 20 mEq PO DAILY 4 tabs 0RF losartan 25 mg PO DAILY 30 tabs 5RF Coding Level of Care Code Est Pt Level 4 (88402) Diagnoses Congestive heart failure I50.9 Heart failure chronicity: acute on chronic Heart failure type: unspecified Chest pain R07.9 Mitral regurgitation I34.0 Essential hypertension I10 Centrilobular emphysema J43.2 COPD type: emphysema Emphysema type: centrilobular Hypokalemia E87.6 Time Spent (min) 26
== END 2023-04-03 10:13 | disposition home or self-care (01) ==
PROVIDERS: PCP Internal Medicine; Visit Provider Nurse Practitioner Family
DX: I50.9 Heart failure, unspecified (principal); R07.9 Chest pain, unspecified; I34.0 Nonrheumatic mitral (valve) insufficiency; I10 Essential (primary) hypertension; J43.2 Centrilobular emphysema; E87.6 Hypokalemia
CPT/HCPCS: 99214

== ENCOUNTER → 2023-04-03 09:29 | Outpatient (BNVA) | payer OTHER, SELFPAY | PROVIDERS: PCP Internal Medicine; Visit Provider Nurse Practitioner Family | DX: R07.9 Chest pain, unspecified (principal); I11.0 Hypertensive heart disease with heart failure; I50.9 Heart failure, unspecified; I42.8 Other cardiomyopathies; J43.2 Centrilobular emphysema; J44.9 Chronic obstructive pulmonary disease, unspecified; E87.6 Hypokalemia; F17.210 Nicotine dependence, cigarettes, uncomplicated; Z99.81 Dependence on supplemental oxygen | CPT/HCPCS: 99212 ==

== ENCOUNTER 2023-04-14 09:58 | Inpatient (IN) | payer OTHER, SELFPAY ==
[2023-04-14] VITALS (12 sets, daily range): BP systolic 137–178; BP diastolic 87–110; PULSE 71–100; RESP 14–25; TEMP 36.4–36.9; O2SAT 84–97; BMI 29.1
--- NOTE | ~2023-04-14 | XR_ITS ---
EXAMINATION: XR CHEST CLINICAL INFORMATION: Dyspnea, chest pain. COMPARISON: Chest 03/30/2023. TECHNIQUE: Frontal view of the chest was obtained. FINDINGS: The lungs are well-expanded with bilateral lower lobe interstitial prominence and bronchial wall thickening. Upper lungs are clear. There is no pleural effusion. The heart size is borderline enlarged. Pulmonary vascularity is normal. No gross bony abnormality seen. XR/XR chest 1V IMPRESSION: Bilateral lower lobe interstitial prominence and bronchial wall thickening suggestive of bronchitis. No consolidation or pleural effusion seen.
--- NOTE | 2023-04-14 10:23 | ECG_ITS ---
Test Reason : SOB Blood Pressure : / mmHG Vent. Rate : 090 BPM Atrial Rate : 090 BPM P-R Int : 140 ms QRS Dur : 122 ms QT Int : 426 ms P-R-T Axes : 056 003 -16 degrees QTc Int : 521 ms Normal sinus rhythm Right bundle branch block Abnormal ECG When compared to the previous EKG of Right bundle branch block Present Referred By: Roscoe Mercado Electronically Signed By:Kemar Curry
[2023-04-14 10:39] LABS: MANUAL DIFF FLAG NO
[2023-04-14] MEDS: methylPREDNISolone Sod Succ 125 MG/2 ML VIAL IVPUSH (10:40)
[2023-04-14 10:41] LABS: Basophils Percent Auto 0.1 % (0-2); Eosinophils Percent Auto 0.3 % (0-4); Hematocrit 35.7 % (37.0-47.0); Imm Gran Abs Auto 0.03 X10*3/uL (0.00-0.03); Imm Gran Pct Auto 0.3 % (0.0-0.4); Lymphocytes Absolute Auto 0.7 X10*3/uL (1.2-4.9); Lymphocytes Percent Auto 8.4 % (20-40); Mean Corpuscular HGB Conc 30.8 g/dl (31.0-35.0); Mean Corpuscular Volume 87.7 fL (80.0-98.0); Mean Platelet Volume 10.5 fL (9.4-12.3); Monocytes Absolute Auto 0.4 X10*3/uL (0.1-1.2); Monocytes Percent Auto 4.2 % (2-11); Neutrophils Absolute Auto 7.4 x10*3/uL (2.0-8.3); Neutrophils Percent Auto 86.7 % (45-73); Platelet Count 156 X10*3/uL (160-400); Red Blood Count 4.07 X10*6/uL (4.20-5.50); Red Cell Distribution Width 14.9 % (11.0-16.0); White Blood Count 8.6 X10*3/uL (4.8-10.8)
--- NOTE | 2023-04-14 10:41 | PC.NURSE ---
pt is alerty and oriented, skin appropriate for ethnicity, respirations increased anywhere form 25-30, slightly labored using some abd muscles, ls diminished with some crackles on the bases, pt has a dry cough for about 3 days and reports left sided pain under her breast 09/10. pt put on bipap at 5/36% oxygen currently sating 96%.
[2023-04-14 10:47] LABS: INTERNATIONAL NORM RATIO 0.9 (0.9-1.1); Prothrombin Time 11.2 SEC (11.1-13.3)
[2023-04-14 10:50] LABS: Partial Thromboplastin Time 29.6 SEC (26.0-36.4)
[2023-04-14 10:53] LABS: Lactic Acid 1.9 mmol/L (0.5-2.0)
[2023-04-14 10:56] LABS: Alanine Aminotransferase 14 U/L (0-31); Albumin Level 3.9 g/dL (3.5-5.0); Alkaline Phosphatase 114 U/L (39-117); Anion Gap 11 (12-20); Aspartate Amino Transferase 14 U/L (5-31); Bilirubin Total 0.4 mg/dL (0.0-1.0); Blood Urea Nitrogen 10 mg/dL (9-16); Carbon Dioxide 34 mmol/L (22-29); Chloride 99 mmol/L (96-108); Creatinine Clr Calc Pharmacy 46.4; Estimated Glomerular Filt Rate 56; Glucose Random 254 mg/dL (60-115); Lipase 24 U/L (8-78); Potassium 3.1 mmol/L (3.3-5.1); Sodium 141 mmol/L (135-145); Total Protein 7.4 g/dL (6.5-8.0)
[2023-04-14 11:00] LABS: Venous Blood Gas Refer to POC result
[2023-04-14] MEDS: Albuterol Sulfate 2.5 MG, Albuterol/Iprat 2.5/0.5MG 3 ML 3 ML INHALE (11:01)
[2023-04-14 11:02] LABS: B Type Natriuretic Peptide 857 pg/mL (<100)
[2023-04-14 11:05] LABS: VBG HCO3 37 mmol/L (22-26); VBG pCO2 64 mmHg; VBG pH 7.37 (7.32-7.43); VBG pO2 33 mmHg
--- NOTE | 2023-04-14 11:49 | PC.NURSE ---
pt changed over from bipap to cpap 10/36% oxygen and sating 93%
[2023-04-14 13:02] LABS: Influenza A PCR NEGATIVE (Negative); Influenza B PCR NEGATIVE (Negative); Resp Syncy Virus RNA Qual PCR NEGATIVE (Negative); SARS COV2 PCR INHOUSE NEGATIVE (Negative)
--- NOTE | 2023-04-14 14:04 | MHC.CM.ED ---
Received notification from [facility] that patient is active with their agency. Referral made in [facility] so they can follow for d/c needs.
--- NOTE | 2023-04-14 14:50 | MHC.EDTECH ---
Pt found to be incontinent of urine. T/w changed underpad and gave Pt new hosptial gown. Pt repositioned.
--- NOTE | 2023-04-14 14:56 | ED_ITS ---
HPI - SOB/Dyspnea General Chief Complaint: Dyspnea Stated Complaint: SOB,HOME O2 PER EMS Time Seen by Provider: 04/14/23 10:17 Source: patient Mode of arrival: EMS Limitations: language barrier (Patient's 1st language is [place], she understands some [place]ian, admitting interviewer was used) History of Present Illness HPI Narrative: 62-year-old female past medical history of CHF with reduced ejection fraction, diabetes, HTN, KELLIE pulmonary hypertension, frequent admission for CHF exacerbation comes into the hospital with complaints of shortness of breath time 1 week worse over the last 3 days. P patient denied cough. She is also complaining of left-sided chest pain which is worse with breathing and coughing, 5/10. She denied fever, chills, nausea, vomiting, diarrhea. Patient does wear 2-4 L of oxygen via nasal cannula chronically at home. O2 saturation on presentation was 90% on 2 L via nasal cannula, patient did appear to dyspneic and tachypneic. Patient was last hospitalized for COPD and respiratory failure from 12/26/2022 until 12/30/2022 Related Data Home Medications Medication Instructions Recorded Confirmed trazodone 50 mg tablet 100 mg PO BEDTIME 03/08/20 04/03/23 furosemide 40 mg tablet (Lasix) 40 mg PO DAILY 04/03/23 04/03/23 Previous Rx's Medication Instructions Recorded quetiapine 50 mg tablet 50 mg PO BID 90 days #180 tabs 12/18/20 sertraline 100 mg tablet 200 mg (2 x 100 mg) PO DAILY 90 12/18/20 days #180 tabs folic acid 1 mg tablet 1 mg PO DAILY #90 tabs 09/04/22 isosorbide mononitrate 30 mg 30 mg PO DAILY 90 days #90 tabs 10/05/22 tablet,extended release 24 hr montelukast 10 mg tablet 10 mg PO BEDTIME #30 tabs 11/30/22 carvedilol 12.5 mg tablet 12.5 mg PO BID #90 tabs 01/12/23 fluticasone furoate 100 1 inh inhalation DAILY 30 days #60 01/12/23 mcg-vilanterol 25 mcg/dose ea inhalation powder (Breo Ellipta) prednisone 5 mg tablet 5 mg PO DAILY 90 days #90 tabs 01/12/23 tiotropium bromide 18 mcg capsule 1 cap inhalation DAILY #30 ea 03/10/23 with inhalation device (Spiriva with HandiHaler) Ventolin HFA 90 mcg/actuation 2 puff inhalation Q6H PRN 03/25/23 aerosol inhaler (albuterol sulfate) shortness of breath or wheezing 30 days #18 grams prednisone 20 mg tablet 60 mg (3 x 20 mg) PO DAILY #12 tabs 03/30/23 losartan 25 mg tablet 25 mg PO DAILY #30 tabs 04/03/23 potassium chloride 20 mEq 20 meq PO DAILY #4 tabs 04/03/23 tablet,extended release Allergies Allergy/AdvReac Type Severity Reaction Status Date / Time nicotine [Nicotine] Allergy Mild ITCHING Verified 04/14/23 10:20 WITH THE PATCHES topiramate Allergy Mild inadequealte Verified 04/14/23 10:20 response Review of Systems 2 Review of Systems: Yes all other systems are reviewed and are negative [facility] Past Medical History Medical History Congestive heart failure Acute and chronic respiratory failure with hypoxia Respiratory failure with hypoxia and hypercapnia Atelectasis, right Hypertensive emergency Pulmonary hypertension Osteoporosis Essential hypertension Supraventricular tachycardia Nonischemic cardiomyopathy Non-rheumatic mitral regurgitation Tobacco abuse Depression Anxiety Chronic respiratory failure Severe chronic obstructive pulmonary disease HFrEF (heart failure with reduced ejection fraction) KELLIE (obstructive sleep apnea) Diabetes HLD (hyperlipidemia) HTN (hypertension) Surgical History History of total abdominal hysterectomy Bilateral ankle fractures Family History Family History Father No problems noted. 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 home services: No Unable to assess alcohol history related to: Unable to respond Alcohol intake: never Patient Tobacco Use Status: Current someday Tobacco user Tobacco use type: Cigarette Cigarettes Per Day: 4 Years Smoked: 50 +/- Smoked in Last 30 Days: Yes e-Cigarette/Vaping Use: Never Used Second Hand Smoke Exposure: No Use of substances other than those prescribed or required for medical reasons: No Advance Directives: Yes Advance Directives on File: Yes Advance Directives Date on File: 04/30/20 service: No Current occupational status: disabled Cognitive needs: Yes Hearing needs: No Vision needs: No Physical Exam 2 Vital Signs: Vital Signs: Last Vital Signs Temp 97.6 F 04/14/23 13:28 Pulse 74 04/14/23 13:28 Resp 14 04/14/23 13:28 BP 146/92 H 04/14/23 13:28 Pulse Ox 93 04/14/23 13:28 O2 Del Method BiPAP 04/14/23 13:28 Oxygen Flow Rate 4 04/14/23 10:13 BMI result Body Mass Index 29.1 Vital signs revealed elevated blood pressure of 170/104, elevated respiratory 25, O2 saturation on OxyMask was 90% which was low Exam General: Appears to be in moderate to severe respiratory distress, tachypneic, dyspnea, using accessory muscles to breathe Head: Normocephalic, atraumatic EENT: PERRL, Lids normal, sclera normal, conjunctiva normal, nose normal , ears normal, throat without erythema or exudates Neck: Supple, no adenopathy, no trachea midline or C-spine tenderness Lung: Diffuse wheezing and rhonchi, breath sounds symmetric bilat Chest: symmetric movement, nontender Heart: regular rate and rhythm, normal S1, S2 no murmurs or rubs Abdomen: soft, non-tender, nondistended, normal bowel sounds Back: no vertebral tenderness, no CVAT Extremities: no deformities, moves all extremities symmetrically Neuro: Awake, alert, oriented, normal speech, cranial nerves intact, moves all extremities symmetrically Medications Administered Discontinued Medications Generic Name Dose Route Start Last Admin Trade Name Freq PRN Reason Stop Dose Admin Albuterol Sulfate 2.5 mg/ 0 mg 04/14/23 10:32 04/14/23 11:01 Albuterol/Ipratropium 3 ml INHALE 04/14/23 10:33 1 dose ONCE ONE Administration Methylprednisolone Sodium Succinate 125 mg 04/14/23 10:23 04/14/23 10:40 Methylprednisolone Sod Succ 125 Mg/2 Ml Vial IVPUSH 04/14/23 10:24 125 mg ONCE ONE Administration Medical Decision Making Medical Decision Making MDM Narrative: 62-year-old female past medical history of CHF with reduced ejection fraction, diabetes, HTN, KELLIE pulmonary hypertension, frequent admission for CHF exacerbation comes into the hospital with complaints of shortness of breath time 1 week worse over the last 3 days. On presentation the patient was in moderate respiratory distress with tachypnea, dyspnea and using accessory muscles to breathe. Patient's O2 saturation was only 90% on OxyMask suggesting is was hypoxic. Lung exam revealed diffuse wheezing and rhonchi. Patient was placed on BiPAP and treated with nebulized bronchodilators Following evaluation was ordered: CBC, CMP, lipase, lactic acid, troponin, VBG, BNP, PT/INR, COVID, flu, RSV, blood cultures x2, chest x-ray Patient was treated with albuterol 2.5 mg combined with DuoNeb 3 mL. Solu- Medrol 125 mg IV Patient was also placed on BiPAP pain 15:12 My interpretation patient's laboratory evaluation is as follows: Chronic normocytic anemia with an H&H of 11 and 35.7. White blood count was normal 8600 with a left shift 86% neutrophils. INR was normal. VBG revealed a normal pH of 7.37 but an elevated pCO2 of 64-she has had similar elevations in the past but her baseline appears to be more in the 40 range. Potassium was low 3.1, bicarb elevated 34, glucose elevated 254. Lactic acid was normal at 1.9. BP is elevated 857-most likely secondary to her COPD and pulmonary hypertension, she has had similar elevations in the past. COVID-19, influenza and RSV were negative. Patient was eventually taken off BiPAP, placed on CPAP and is now on oxygen via nasal. At this time I think the patient's symptoms are caused purely by a COPD exacerbation, there is no evidence for infection at this time. I will discuss admission with the covering hospitalist Differential Diagnosis Differential Diagnoses: The differential diagnosis associated with the presentation includes Differential diagnosis includes was not limited to COPD exacerbation, pneumonia, viral infection, electrolyte abnormality, anemia Lab Data [facility] Lab Attestation statement: I reviewed the patient's lab results. See my interpretation the above [facility] 04/14/23 10:33 04/14/23 10:33 Labs: Lab Results 04/14/23 04/14/23 04/14/23 Range/Units 10:33 10:56 12:18 WBC 8.6 (4.8-10.8) X10*3/uL RBC 4.07 L (4.20-5.50) X10*6/uL Hgb 11.0 L (12.0-16.0) g/dl Hct 35.7 L (37.0-47.0) % MCV 87.7 (80.0-98.0) fL MCH 27.0 (27.0-33.0) pg MCHC 30.8 L (31.0-35.0) g/dl RDW 14.9 (11.0-16.0) % Plt Count 156 L (160-400) X10*3/uL MPV 10.5 (9.4-12.3) fL Immature Gran % (Auto) 0.3 (0.0-0.4) % Neut % (Auto) 86.7 H (45-73) % Lymph % (Auto) 8.4 L (20-40) % Mellette % (Auto) 4.2 (2-11) % Eos % (Auto) 0.3 (0-4) % Baso % (Auto) 0.1 (0-2) % Lymph # (Auto) 0.7 L (1.2-4.9) X10*3/uL Mellette # (Auto) 0.4 (0.1-1.2) X10*3/uL Eos # (Auto) 0.0 (0.0-0.4) X10*3/uL Baso # (Auto) 0.0 (0.0-0.2) X10*3/uL Abs Immat Gran (auto) 0.03 (0.00-0.03) X10*3/uL Absolute Neuts (auto) 7.4 (2.0-8.3) x10*3/uL Absolute Nucleated RBC 0.000 (0.0-0.012) X10*3/uL Nucleated RBC % (auto) 0.0 (0.0-0.2) /100WBC PT 11.2 (11.1-13.3) SEC INR 0.9 (0.9-1.1) APTT 29.6 (26.0-36.4) SEC VBG pH 7.37 (7.32-7.43) VBG pCO2 64 mmHg VBG pO2 33 mmHg VBG HCO3 37 H (22-26) mmol/L VBG O2 Saturation 49.0 % VBG Base Excess 10.0 mmol/L Sodium 141 (135-145) mmol/L Potassium 3.1 L (3.3-5.1) mmol/L Chloride 99 (96-108) mmol/L Carbon Dioxide 34 H (22-29) mmol/L Anion Gap 11 L (12-20) BUN 10 (9-16) mg/dL Creatinine 1.00 (0.5-1.4) mg/dL Estim Creat Clear Calc 46.4 Estimated GFR 56 Random Glucose 254 H (60-115) mg/dL Lactic Acid 1.9 (0.5-2.0) mmol/L Calcium 9.0 (8.4-10.2) mg/dL Total Bilirubin 0.4 (0.0-1.0) mg/dL AST 14 (5-31) U/L ALT 14 (0-31) U/L Alkaline Phosphatase 114 (39-117) U/L Troponin I High Sens 13.0 (<3.5-17.0) ng/L B-Natriuretic Peptide 857 H (<100) pg/mL Total Protein 7.4 (6.5-8.0) g/dL Albumin 3.9 (3.5-5.0) g/dL Lipase 24 (8-78) U/L Influenza Type A (PCR) NEGATIVE (Negative) Influenza Type B (PCR) NEGATIVE (Negative) RSV RNA Qual (PCR) NEGATIVE (Negative) SARS-CoV-2 RNA (RT-PCR) NEGATIVE (Negative) Independent Interpretation I performed an independent interpretation of an: EKG and Plain X-Ray Interpretation: My interpretation of the patient one-view chest x-ray is no acute disease, I did review the radiology reading below I do not think that the patient has pneumonia or acute bronchitis since she has no cough. My interpretation the patient's 12 EKG done at 10:38 hours is as follows: Normal sinus rhythm rate of 90, normal FL interval, prolonged QRS duration of 122 milliseconds, prolonged QTC of 521 milliseconds, consistent with right bundle-branch block, no ST segment elevation, no ST segment depression, no PACs, no PVCs Radiology Impression Discussion of test interpretation with radiology: I have reviewed the radiologist's reading. Radiologist Impression: XR chest 1V IMPRESSION: Bilateral lower lobe interstitial prominence and bronchial wall thickening suggestive of bronchitis. No consolidation or pleural effusion seen. Dictated By: Lisandro Ly MD Discharge Plan Discharge Patient Disposition: Admitted As Inpatient Prescriptions: No Action sertraline 100 mg tablet 200 mg PO DAILY 90 Days Qty: 180 1RF quetiapine 50 mg tablet 50 mg PO BID 90 Days Qty: 180 1RF isosorbide mononitrate 30 mg tablet extended release 24 hr 30 mg PO DAILY 90 Days Qty: 90 3RF Protocol: Hold for SBP< HOLD for SBP < : 90 montelukast 10 mg tablet 10 mg PO BEDTIME Qty: 30 11RF carvedilol 12.5 mg tablet 12.5 mg PO BID Qty: 90 1RF tiotropium bromide [Spiriva with HandiHaler] 18 mcg capsule, w/inhalation device 1 cap inhalation DAILY Qty: 30 5RF albuterol sulfate [Ventolin HFA] 90 mcg/actuation HFA aerosol inhaler 2 puff inhalation Q6H PRN (Reason: shortness of breath or wheezing) 30 Days Qty: 18 2RF trazodone 50 mg tablet 100 mg PO BEDTIME folic acid 1 mg Tablet 1 mg PO DAILY Qty: 90 4RF prednisone 20 mg tablet 60 mg PO DAILY Qty: 12 0RF prednisone 5 mg tablet 5 mg PO DAILY 90 Days Qty: 90 1RF fluticasone furoate-vilanterol [Breo Ellipta] 100-25 mcg/dose blister with device 1 inh inhalation DAILY 30 Days Qty: 60 0RF furosemide [Lasix] 40 mg tablet 40 mg PO DAILY losartan 25 mg tablet 25 mg PO DAILY Qty: 30 5RF potassium chloride 20 mEq tablet extended release 20 meq PO DAILY Qty: 4 0RF
--- NOTE | 2023-04-14 15:59 | PHA.MEDREC ---
Pharmacy Consult ? Medication Reconciliation Pharmacy has completed the medication reconciliation. Patient confirmed medications based on claim history/previous. Breo has not been filled since July but patient reports still taking medications. Jessica Fernandez, PharmD
--- NOTE | 2023-04-14 16:30 | P.HPHOSP_ITS ---
History of Present Illness Date of Service: 04/14/23 Attending physician on admission: Ethan Santamaria Chief Complaint: dyspnea 61-year-old female with pertinent history of see-aoosvbl-hkwryxzga diabetes mellitus, essential hypertension, congestive heart failure with reduced ejection fraction, mixed hyperlipidemia, KELLIE noncompliant with CPAP, pulmonary hypertension, mood disorder, chronic hypoxemic respiratory failure due to COPD with baseline 4 L oxygen who presents to the emergency department for evaluation of dyspnea. The patient states for the last 2-3 days she has been experiencing worsening shortness of breath both at rest and with exertion. She reports chronic orthopnea. She has not been requiring increased use of her nebulizer or increased oxygen. Denies any sick contacts. No fevers, chills, sore throat, congestion, cough, abd pain, n/v, palpitations, ble edema, lightheadedness, or chest pain. On arrival, patient hypertensive to 170/104, tachypneic to 25 with 90% oximetry on 4 L via OxyMask. ABG revealed normal pH but elevated pCO2 from baseline of 64. She was briefly placed on CPAP and transitioned to BiPAP for several hours before being weaned back to baseline O2 4 L via nasal cannula, maintaining oximetry around 94%. Renal function normal, electrolytes normal except for mild hypokalemia of 3.1 and mild hypercapnia of 3.4. Glucose 254. Troponin within normal limits. BNP 857. Negative for influenza, COVID-19, and RSV. Chest x- ray shows bilateral lower lobe interstitial prominence and bronchial wall thickening suggestive of bronchitis. No consolidation or pleural effusions. Pulmonary vascularity noted to be normal. In the ED, received albuterol updraft and 125 mg IV methylprednisolone. Patient reports some improvement in symptoms though does remain dyspneic. Review of Systems 2 Review of Systems: General: No fevers, malaise, unintentional weight loss HEENT: No blurred vision, diplopia. No sore throat, nasal congestion, rhinorrhea, sinus pain, ear pain Cardiovascular: No chest pain, palpitations, or leg edema Respiratory: +sob, +wheezing. No cough GI: No abdominal pain, nausea, vomiting, diarrhea, constipation, melena, hematochezia : No dysuria, hematuria, increased urinary frequency, decreased urinary output MSK: No myalgia, back pain Neuro: No headaches, weakness, paresthesias Skin: No rashes or lesions [facility] Medical History Congestive heart failure Acute and chronic respiratory failure with hypoxia Respiratory failure with hypoxia and hypercapnia Atelectasis, right Hypertensive emergency Pulmonary hypertension Osteoporosis Essential hypertension Supraventricular tachycardia Nonischemic cardiomyopathy Non-rheumatic mitral regurgitation Tobacco abuse Depression Anxiety Chronic respiratory failure Severe chronic obstructive pulmonary disease HFrEF (heart failure with reduced ejection fraction) KELLIE (obstructive sleep apnea) Diabetes HLD (hyperlipidemia) HTN (hypertension) Family History Father No problems noted. Mother Liver cancer Hypertension Surgical History History of total abdominal hysterectomy Bilateral ankle fractures Social History Household Members: None Household Members Other:: 1 Housing: Apartment Do you presently have visiting nurse or other home services: No Unable to assess alcohol history related to: Unable to respond Alcohol intake: never Patient Tobacco Use Status: Current someday Tobacco user Tobacco use type: Cigarette Cigarettes Per Day: 4 Years Smoked: 50 +/- Smoked in Last 30 Days: Yes e-Cigarette/Vaping Use: Never Used Second Hand Smoke Exposure: No Use of substances other than those prescribed or required for medical reasons: No Advance Directives: Yes Advance Directives on File: Yes Advance Directives Date on File: 04/30/20 service: No Current occupational status: disabled Cognitive needs: Yes Hearing needs: No Vision needs: No Meds Allergies Allergy/AdvReac Type Severity Reaction Status Date / Time nicotine [Nicotine] Allergy Mild ITCHING Verified 04/14/23 10:20 WITH THE PATCHES topiramate Allergy Mild inadequealte Verified 04/14/23 10:20 response Active Medications: Current Medications Acetaminophen (Acetaminophen 325 Mg Tablet) 650 mg PO Q6H PRN PRN Reason: Pain, Mild (Pain Scale 1-3) Albuterol Sulfate (Albuterol Sulfate 90 Mcg 8 Gm Inhaler) 2 puff INHALE Q2H PRN PRN Reason: Shortness of Breath/Wheezing Albuterol/Ipratropium (Albuterol/Iprat 2.5/0.5mg 3 Ml Ampul.Neb) 3 ml INHALE RQ4H WHILE AWAKE [facility] Enoxaparin Sodium (Enoxaparin Sodium 40 Mg/0.4 Ml Syringe) 40 mg SUBCUT Q24H [facility] Ondansetron HCl (Ondansetron Hcl 4 Mg/2 Ml Vial) 4 mg IVPUSH Q8H PRN PRN Reason: Nausea and Vomiting Potassium Chloride (Potassium Chloride Packet 20 Meq Packet) 40 meq PO DAILY [facility] Prednisone (Prednisone 20 Mg Tablet) 40 mg PO DAILY [facility] Senna (Sennosides 8.6 Mg Tablet) 17.2 mg PO BEDTIME PRN PRN Reason: Constipation Sodium Chloride (0.9 % Sodium Chloride Flush 3 Ml Syringe) 3 ml IVFLUSH QSHIFT [facility] Home Medications Medication Instructions Recorded Confirmed Last Taken Type trazodone 50 mg tablet 100 mg PO BEDTIME 03/08/20 04/14/23 10/18/22 History furosemide 40 mg tablet (Lasix) 40 mg PO DAILY 04/03/23 04/14/23 Unknown History Physical Exam 2 Vital Signs and Narrative: Vital Signs: Last Vital Signs Temp 97.6 F 04/14/23 13:28 Pulse 74 04/14/23 13:28 Resp 14 04/14/23 13:28 BP 146/92 H 04/14/23 13:28 Pulse Ox 93 04/14/23 13:28 O2 Del Method BiPAP 04/14/23 13:28 Oxygen Flow Rate 4 04/14/23 10:13 BMI result Body Mass Index 29.1 Constitutional - Awake and Alert, No apparent distress Eyes - PERRLA, EOMI Cardiovascular - S1S2, RRR, No edema Respiratory - Normal lung expansion, Normal respiratory effort, No respiratory distress, faint expiratory wheezes bilaterally, otherwise CTA Gastrointestinal - NT / ND; +BS; No rebound or guarding Extremities - no calf tenderness bilaterally, no swelling Skin - Warm/Dry Neurological - Alert & oriented x3 Psychological - Appropriate affect Results Labs 04/14/23 10:33 04/14/23 10:33 Labs: Laboratory Results - last 24 hr 04/14/23 04/14/23 04/14/23 10:33 10:56 12:18 MCV 87.7 MCH 27.0 MCHC 30.8 L RDW 14.9 Plt Count 156 L MPV 10.5 Immature Gran % (Auto) 0.3 Neut % (Auto) 86.7 H Lymph % (Auto) 8.4 L Wheeler % (Auto) 4.2 Eos % (Auto) 0.3 Baso % (Auto) 0.1 Lymph # (Auto) 0.7 L Wheeler # (Auto) 0.4 Eos # (Auto) 0.0 Baso # (Auto) 0.0 Abs Immat Gran (auto) 0.03 Absolute Neuts (auto) 7.4 Absolute Nucleated RBC 0.000 Nucleated RBC % (auto) 0.0 PT 11.2 INR 0.9 APTT 29.6 VBG pH 7.37 VBG pCO2 64 VBG pO2 33 VBG HCO3 37 H VBG O2 Saturation 49.0 VBG Base Excess 10.0 Anion Gap 11 L Estim Creat Clear Calc 46.4 Estimated GFR 56 Random Glucose 254 H Lactic Acid 1.9 Calcium 9.0 Total Bilirubin 0.4 AST 14 ALT 14 Alkaline Phosphatase 114 B-Natriuretic Peptide 857 H Total Protein 7.4 Albumin 3.9 Lipase 24 Influenza Type A (PCR) NEGATIVE Influenza Type B (PCR) NEGATIVE RSV RNA Qual (PCR) NEGATIVE SARS-CoV-2 RNA (RT-PCR) NEGATIVE Imaging Radiologist's Impressions: Impressions Chest X-Ray 04/14/23 10:36 IMPRESSION: Bilateral lower lobe interstitial prominence and bronchial wall thickening suggestive of bronchitis. No consolidation or pleural effusion seen. Assessment and Plan (1) COPD exacerbation: Status: Acute Plan 61-year-old female with pertinent history of zcz-pvjvuhu-kiljbnblt diabetes mellitus, essential hypertension, congestive heart failure with reduced ejection fraction, mixed hyperlipidemia, KELLIE noncompliant with CPAP, pulmonary hypertension, mood disorder, chronic hypoxemic respiratory failure due to COPD with baseline 4 L oxygen to be observed for acute COPD exacerbation. #Acute bronchitis with mild COPD exacerbation and acute on chronic hypoxemic hypercapnic respiratory failure -VBG with normal pH, pCO2 64, bicarb 37. Weaned from bipap to baseline 4L O2 via NC- clinically improved -Given 125mg IV methylprednisolone in ED. Start 40mg prednisone am -duonebs q4h while awake -albuterol prn -abx not indicated #Hypokalemia -appears chronic, possibly r/t lasix use -Start 40mg KCl daily #HFrEF- no acute exacerbation -CXR without effusions or pulmonary edema, BNP elevated but clincially euvolemic -Continue po diuretics # fzy-tstwyvc-yxjgmtznb type 2 diabetes -POC glucose, diabetic diet -Humalog on sliding scale # KELLIE -noncompliant with CPAP # hypertension -continue home antihypertensives #Mood disorder -continue home meds #Cigarette smoker -Assures me she does not smoke while wearing oxygen -Smoking cessation counseling provided -declines nrt DVT prophylaxis- lovenox DNR/DNI Quality Stroke Does the patient have a stroke diagnosis?: No VTE Prior VTE?: No VTE Risk Level:: Medical - moderate - high VTE Device Contraindication: Treatment Not Indicated VTE Drug Contraindication: N/A - Med Ordered
[2023-04-14] MEDS: Losartan Potassium 25 MG TABLET PO (17:54)
[2023-04-14] MEDS: Enoxaparin Sodium 40 MG/0.4 ML SYRINGE SUBCUT (17:55)
[2023-04-14] MEDS: Albuterol/Iprat 2.5/0.5MG 3 ML AMPUL.NEB INHALE (20:52)
[2023-04-14 21:38] LABS: Glucose, Whole Blood 135 mg/dL (60-115)
[2023-04-14] MEDS: QUEtiapine Fumarate 50 MG TABLET PO (21:38)
[2023-04-14] MEDS: Montelukast Sodium 10 MG TABLET PO (21:38)
[2023-04-14] MEDS: traZODone HCL 100 MG TABLET PO (21:38)
[2023-04-14] MEDS: carvediloL 12.5 MG TABLET PO (21:38)
[2023-04-15] VITALS (11 sets, daily range): BP systolic 113–176; BP diastolic 85–110; PULSE 73–99; RESP 18–20; TEMP 36.2–37.3; O2SAT 92–100
[2023-04-15] MEDS: 0.9 % Sodium Chloride Flush 3 ML SYRINGE IVFLUSH ×3 (00:28→20:29)
[2023-04-15] MEDS: Potassium Chloride/H20 10 MEQ/100 ML PIGGYBACK 100 MEQ IV ×2 (03:19→04:52)
--- NOTE | 2023-04-15 04:56 | PC.RT ---
Spoke with pt at length about the importance of wearing CPAP for NOC support. Pt states she does not wear it at home and does not want to wear it in the hospital as well.
[2023-04-15 06:59] LABS: Glucose, Whole Blood 91 mg/dL (60-115)
[2023-04-15 07:28] LABS: MANUAL DIFF FLAG NO
[2023-04-15 07:42] LABS: Basophils Percent Auto 0.2 % (0-2); Eosinophils Percent Auto 0.1 % (0-4); Hematocrit 34.3 % (37.0-47.0); Hemoglobin 10.8 g/dl (12.0-16.0); Imm Gran Abs Auto 0.03 X10*3/uL (0.00-0.03); Imm Gran Pct Auto 0.3 % (0.0-0.4); Lymphocytes Absolute Auto 1.4 X10*3/uL (1.2-4.9); Lymphocytes Percent Auto 15.6 % (20-40); Mean Corpuscular HGB Conc 31.5 g/dl (31.0-35.0); Mean Corpuscular Hemoglobin 27.1 pg (27.0-33.0); Mean Corpuscular Volume 86.2 fL (80.0-98.0); Mean Platelet Volume 10.9 fL (9.4-12.3); Monocytes Absolute Auto 0.6 X10*3/uL (0.1-1.2); Monocytes Percent Auto 6.4 % (2-11); Neutrophils Absolute Auto 7.1 x10*3/uL (2.0-8.3); Neutrophils Percent Auto 77.4 % (45-73); Platelet Count 167 X10*3/uL (160-400); Red Blood Count 3.98 X10*6/uL (4.20-5.50); Red Cell Distribution Width 14.7 % (11.0-16.0); White Blood Count 9.1 X10*3/uL (4.8-10.8)
[2023-04-15] MEDS: Albuterol/Iprat 2.5/0.5MG 3 ML AMPUL.NEB INHALE ×4 (07:58→20:53)
[2023-04-15] MEDS: Tiotropium Bromide 2.5 mcg 1 PUFF/2.5 MCG MIST.INHAL INHALE (07:58)
[2023-04-15] MEDS: Fluticasone/Vilanterol 100/25 BLST.W.DEV 1 PUFF INHALE (07:58)
[2023-04-15 07:59] LABS: Anion Gap 11 (12-20); Blood Urea Nitrogen 15 mg/dL (9-16); Calcium 9.4 mg/dL (8.4-10.2); Carbon Dioxide 33 mmol/L (22-29); Chloride 102 mmol/L (96-108); Creatinine Clr Calc Pharmacy 54.6; Estimated Glomerular Filt Rate > 60; Glucose Random 91 mg/dL (60-115); Magnesium 2.2 mg/dL (1.6-2.6); Potassium 3.7 mmol/L (3.3-5.1); Sodium 142 mmol/L (135-145)
[2023-04-15] MEDS: Isosorbide Mononitrate 30 MG TAB.ER.24H PO (08:36)
[2023-04-15] MEDS: Furosemide 40 MG TABLET PO (08:36)
[2023-04-15] MEDS: predniSONE 20 MG TABLET 40 MG PO (08:36)
[2023-04-15] MEDS: Folic Acid 1 MG TABLET PO (08:36)
[2023-04-15] MEDS: carvediloL 12.5 MG TABLET PO ×2 (08:36→20:28)
[2023-04-15] MEDS: QUEtiapine Fumarate 50 MG TABLET PO ×2 (08:36→20:29)
[2023-04-15] MEDS: Losartan Potassium 25 MG TABLET PO (08:37)
[2023-04-15] MEDS: Sertraline HCL 100 MG TABLET 200 MG PO (08:37)
[2023-04-15] MEDS: Acetaminophen 325 MG TABLET 650 MG PO (08:40)
--- NOTE | 2023-04-15 09:43 | MHC.CM.PN ---
CM met with pt and indirect sales representative, Pt lives alone and has one hour of MONITOR TECH assistance a day. She said that this is not enough and that she needs more assistance. HCP is on file and confirmed, Chanelle Walton, and she is also her MONITOR TECH. Pt has med equip in the home of: O2, nebulizer, inhaler, walker, shower chair. She is active with [facility], she reports that they come once a week to set up her meds, but that they do not speak [place] and she does not speak [place]ian. She said she will need tranportation home. CM will follow and assist with DC planning.
[2023-04-15 10:48] LABS: Glucose, Whole Blood 133 mg/dL (60-115)
--- NOTE | 2023-04-15 12:35 | HO.PM.IMPN ---
Subjective Subjective Date of Service: 04/15/23 Interval History: seen and evaluated feels mildly better but still dyspneic and weak no reported overnight events Review of Systems Review of Systems: Yes all other systems are reviewed and are negative Physical Exam Vital Signs: Vital Signs: Last Vital Signs Temp 99.2 F 04/15/23 10:56 Pulse 87 04/15/23 11:42 Resp 18 04/15/23 11:42 BP 172/102 H 04/15/23 10:56 Pulse Ox 99 04/15/23 10:56 O2 Del Method Nasal Cannula 04/15/23 10:56 O2 Flow Rate 4 04/15/23 10:56 Oxygen Flow Rate 4 04/14/23 10:13 BMI result Body Mass Index 29.1 Const: Other: Constitutional : Awake, interactive, not in distress Neck : Normal inspection, Supple Cardiovascular : RRR, no JVP, no lower extremity edema Respiratory : decreased bilateral air entry, no crackles, fine expiratory wheezes Gastrointestinal: soft, lax, Normal bowel sounds, Non tender Skin : Warm, Dry Neurological : Alert & oriented x3, No focal deficit Objective Data Active Medications Acetaminophen (Acetaminophen 325 Mg Tablet) 650 mg PO Q6H PRN PRN Reason: Pain, Mild (Pain Scale 1-3) Last Admin: 04/15/23 08:40 Dose: 650 mg Documented By: JOSE MARIA Albuterol Sulfate (Albuterol Sulfate 90 Mcg 8 Gm Inhaler) 2 puff INHALE Q2H PRN PRN Reason: Shortness of Breath/Wheezing Albuterol/Ipratropium (Albuterol/Iprat 2.5/0.5mg 3 Ml Ampul.Neb) 3 ml INHALE RQ4H WHILE AWAKE [facility] Last Admin: 04/15/23 11:40 Dose: 3 ml Documented By: MANISH Carvedilol (Carvedilol 12.5 Mg Tablet) 12.5 mg PO BID [facility]; Protocol Last Admin: 04/15/23 08:36 Dose: 12.5 mg Documented By: JOSE MARIA Dextrose (Dextrose 50 % 25 Gm/50 Ml Syringe) 25 gm IVPUSH Q15M PRN; Protocol PRN Reason: per Hypoglycemia Standing Ord. Enoxaparin Sodium (Enoxaparin Sodium 40 Mg/0.4 Ml Syringe) 40 mg SUBCUT Q24H [facility] Last Admin: 04/14/23 17:55 Dose: 40 mg Documented By: RENETTA Fluticasone/Vilanterol (Fluticasone/Vilanterol 100/25 Blst.W.Dev) 1 puff INHALE RDAILY [facility] Last Admin: 04/15/23 07:58 Dose: 1 puff Documented By: MANISH Folic Acid (Folic Acid 1 Mg Tablet) 1 mg PO DAILY [facility] Last Admin: 04/15/23 08:36 Dose: 1 mg Documented By: JOSE MARIA Furosemide (Furosemide 40 Mg Tablet) 40 mg PO DAILY [facility]; Protocol Last Admin: 04/15/23 08:36 Dose: 40 mg Documented By: JOSE MARIA Glucose (Glucose Gel 15 Gm Gel..Gram.) 15 gm PO Q15M PRN; Protocol PRN Reason: per Hypoglycemia Standing Ord. Insulin Human Lispro (Insulin Lispro 100 Unit/Ml 3 Ml Vial) 0 unit SUBCUT QIDACHS [facility]; Protocol Last Admin: 04/15/23 10:53 Dose: Not Given Documented By: JOSE MARIA Non-Admin Reason: No Insulin Coverage Isosorbide Mononitrate (Isosorbide Mononitrate 30 Mg Tab.Er.24h) 30 mg PO DAILY [facility]; Protocol Last Admin: 04/15/23 08:36 Dose: 30 mg Documented By: JOSE MARIA Losartan Potassium (Losartan Potassium 25 Mg Tablet) 25 mg PO DAILY [facility]; Protocol Last Admin: 04/15/23 08:37 Dose: 25 mg Documented By: JOSE MARIA Montelukast Sodium (Montelukast Sodium 10 Mg Tablet) 10 mg PO BEDTIME [facility] Last Admin: 04/14/23 21:38 Dose: 10 mg Documented By: TANJA Ondansetron HCl (Ondansetron Hcl 4 Mg/2 Ml Vial) 4 mg IVPUSH Q8H PRN PRN Reason: Nausea and Vomiting Prednisone (Prednisone 20 Mg Tablet) 40 mg PO DAILY [facility] Last Admin: 04/15/23 08:36 Dose: 40 mg Documented By: JOSE MARIA Quetiapine Fumarate (Quetiapine Fumarate 50 Mg Tablet) 50 mg PO BID [facility] Last Admin: 04/15/23 08:36 Dose: 50 mg Documented By: JOSE MARIA Senna (Sennosides 8.6 Mg Tablet) 17.2 mg PO BEDTIME PRN PRN Reason: Constipation Sertraline HCl (Sertraline Hcl 100 Mg Tablet) 200 mg PO DAILY [facility] Last Admin: 04/15/23 08:37 Dose: 200 mg Documented By: JOSE MARIA Sodium Chloride (0.9 % Sodium Chloride Flush 3 Ml Syringe) 3 ml IVFLUSH QSHIFT [facility] Last Admin: 04/15/23 08:38 Dose: 3 ml Documented By: JOSE MARIA Tiotropium [place] (Tiotropium [place] 2.5 Mcg 1 Puff/2.5 Mcg Mist.Inhal) 1 puff INHALE RDAILY [facility] Last Admin: 04/15/23 07:58 Dose: 1 puff Documented By: MANISH Trazodone HCl (Trazodone Hcl 100 Mg Tablet) 100 mg PO BEDTIME [facility] Last Admin: 04/14/23 21:38 Dose: 100 mg Documented By: TANJA Labs 04/15/23 07:16 04/15/23 07:16 Labs: Laboratory Results - last 24 hr 04/14/23 04/14/23 04/15/23 12:18 21:27 06:54 MCV MCH MCHC RDW Plt Count MPV Immature Gran % (Auto) Neut % (Auto) Lymph % (Auto) [place] % (Auto) Eos % (Auto) Baso % (Auto) Lymph # (Auto) [place] # (Auto) Eos # (Auto) Baso # (Auto) Abs Immat Gran (auto) Absolute Neuts (auto) Absolute Nucleated RBC Nucleated RBC % (auto) Anion Gap Estim Creat Clear Calc Estimated GFR POC Glucose 135 H 91 Random Glucose Calcium Magnesium Influenza Type A (PCR) NEGATIVE Influenza Type B (PCR) NEGATIVE RSV RNA Qual (PCR) NEGATIVE SARS-CoV-2 RNA (RT-PCR) NEGATIVE 04/15/23 04/15/23 07:16 10:44 MCV 86.2 MCH 27.1 MCHC 31.5 RDW 14.7 Plt Count 167 MPV 10.9 Immature Gran % (Auto) 0.3 Neut % (Auto) 77.4 H Lymph % (Auto) 15.6 L [place] % (Auto) 6.4 Eos % (Auto) 0.1 Baso % (Auto) 0.2 Lymph # (Auto) 1.4 [place] # (Auto) 0.6 Eos # (Auto) 0.0 Baso # (Auto) 0.0 Abs Immat Gran (auto) 0.03 Absolute Neuts (auto) 7.1 Absolute Nucleated RBC 0.000 Nucleated RBC % (auto) 0.0 Anion Gap 11 L Estim Creat Clear Calc 54.6 Estimated GFR > 60 POC Glucose 133 H Random Glucose 91 Calcium 9.4 Magnesium 2.2 Influenza Type A (PCR) Influenza Type B (PCR) RSV RNA Qual (PCR) SARS-CoV-2 RNA (RT-PCR) Assessment and Plan (1) COPD exacerbation: Status: Acute (2) Acute exacerbation of chronic obstructive pulmonary disease: Status: Acute Plan 61-year-old female with pertinent history of [id number] diabetes mellitus, essential hypertension, congestive heart failure with reduced ejection fraction, mixed hyperlipidemia, KELLIE noncompliant with CPAP, pulmonary hypertension, mood disorder, chronic hypoxemic respiratory failure due to COPD with baseline 4 L oxygen to be observed for acute COPD exacerbation. #Acute bronchitis with mild COPD exacerbation and acute on chronic hypoxemic hypercapnic respiratory failure clinically improving 40mg prednisone am duonebs q4h while awake albuterol prn wean down O2 to baseline PT eval #Hypokalemia resolved #HFrEF- no acute exacerbation CXR without effusions or pulmonary edema, BNP elevated but clincially euvolemic Continue po diuretics # zkw-dattaje-nozudmjnd type 2 diabetes POC glucose, diabetic diet Humalog on sliding scale # KELLIE noncompliant with CPAP # hypertension continue home antihypertensives #Mood disorder continue home meds #Cigarette smoker Assures me she does not smoke while wearing oxygen Smoking cessation counseling provided declines nrt DVT prophylaxis- lovenox DNR/DNI Quality Stroke Does the patient have a stroke diagnosis?: No VTE Prior VTE?: No VTE Risk Level:: Medical - moderate - high VTE Device Contraindication: Treatment Not Indicated VTE Drug Contraindication: N/A - Med Ordered
[2023-04-15 16:01] LABS: Glucose, Whole Blood 184 mg/dL (60-115)
[2023-04-15] MEDS: Enoxaparin Sodium 40 MG/0.4 ML SYRINGE SUBCUT (16:59)
[2023-04-15] MEDS: Insulin Lispro 100 UNIT/ML 3 ML VIAL SUBCUT (16:59)
[2023-04-15 20:06] LABS: Glucose, Whole Blood 143 mg/dL (60-115)
[2023-04-15] MEDS: traZODone HCL 100 MG TABLET PO (20:28)
[2023-04-15] MEDS: Montelukast Sodium 10 MG TABLET PO (20:28)
[2023-04-16] VITALS: BP 165/98; PULSE 85; RESP 19; TEMP 36.4; O2SAT 99
[2023-04-16 03:21] VITALS: BP 154/96; PULSE 76; RESP 20; TEMP 36.6; O2SAT 98
--- NOTE | 2023-04-16 05:03 | PC.NURSE ---
Pt having small bursts of SVT lasting a couple seconds. back in NSR with rate 60-70s. MD Peacock notified. Pt asymptomatic
[2023-04-16 07:11] VITALS: BP 130/72; PULSE 79; RESP 20; TEMP 36.3; O2SAT 95
[2023-04-16] MEDS: Albuterol/Iprat 2.5/0.5MG 3 ML AMPUL.NEB INHALE (07:37)
[2023-04-16] MEDS: Tiotropium Bromide 2.5 mcg 1 PUFF/2.5 MCG MIST.INHAL INHALE (07:37)
[2023-04-16] MEDS: Fluticasone/Vilanterol 100/25 BLST.W.DEV 1 PUFF INHALE (07:37)
[2023-04-16 07:38] VITALS: PULSE 81; RESP 18; O2SAT 97
[2023-04-16 07:44] LABS: Glucose, Whole Blood 93 mg/dL (60-115)
[2023-04-16] MEDS: QUEtiapine Fumarate 50 MG TABLET PO (08:49)
[2023-04-16] MEDS: predniSONE 20 MG TABLET 40 MG PO (08:49)
[2023-04-16] MEDS: Losartan Potassium 25 MG TABLET PO (08:49)
[2023-04-16] MEDS: carvediloL 12.5 MG TABLET PO (08:49)
[2023-04-16] MEDS: 0.9 % Sodium Chloride Flush 3 ML SYRINGE IVFLUSH (08:50)
[2023-04-16] MEDS: Isosorbide Mononitrate 30 MG TAB.ER.24H PO (08:50)
[2023-04-16] MEDS: Folic Acid 1 MG TABLET PO (08:50)
[2023-04-16] MEDS: Furosemide 40 MG TABLET PO (08:50)
[2023-04-16] MEDS: Sertraline HCL 100 MG TABLET 200 MG PO (08:50)
--- NOTE | 2023-04-16 09:36 | P.DS_ITS ---
DS: Providers Provider Date of Service: 04/16/23 Date of admission: 04/14/23 16:21 Primary care physician: Analisa Chavez MD DS: Diagnosis Discharge Diagnosis (1) COPD exacerbation: Status: Acute DS: Summary Hospital Course Hospital Course: Admission note HPI 61-year-old female with pertinent history of [id number] diabetes mellitus, essential hypertension, congestive heart failure with reduced ejection fraction, mixed hyperlipidemia, KELLIE noncompliant with CPAP, pulmonary hypertension, mood disorder, chronic hypoxemic respiratory failure due to COPD with baseline 4 L oxygen who presents to the emergency department for evaluation of dyspnea. The patient states for the last 2-3 days she has been experiencing worsening shortness of breath both at rest and with exertion. She reports chronic orthopnea. She has not been requiring increased use of her nebulizer or increased oxygen. Denies any sick contacts. No fevers, chills, sore throat, congestion, cough, abd pain, n/v, palpitations, ble edema, lightheadedness, or chest pain. On arrival, patient hypertensive to 170/104, tachypneic to 25 with 90% oximetry on 4 L via OxyMask. ABG revealed normal pH but elevated pCO2 from baseline of 64. She was briefly placed on CPAP and transitioned to BiPAP for several hours before being weaned back to baseline O2 4 L via nasal cannula, maintaining oximetry around 94%. Renal function normal, electrolytes normal except for mild hypokalemia of 3.1 and mild hypercapnia of 3.4. Glucose 254. Troponin within normal limits. BNP 857. Negative for influenza, COVID-19, and RSV. Chest x- ray shows bilateral lower lobe interstitial prominence and bronchial wall thickening suggestive of bronchitis. No consolidation or pleural effusions. Pulmonary vascularity noted to be normal. In the ED, received albuterol updraft and 125 mg IV methylprednisolone. Patient reports some improvement in symptoms though does remain dyspneic. Hospital course Acute bronchitis with mild COPD exacerbation and acute on chronic hypoxemic hypercapnic respiratory failure treated with IV steroids and nebulizers with good response. CXR without effusions or pulmonary edema, BNP elevated but clincially euvolemic. weaned down O2 supplement to baseline. To be discharged on Prednisone and home inhalors. Seen by Physical therapy team who recommended home VNA. Continue Prednisone as prescribed Use your home inhalor as scheduled Time Attestation Discharge coordination time: Less than 30 minutes Quality: Safe Use of Opioids Does Pt have an Active Cancer Diagnosis on the Problem List?: No Quality: Stroke Does the patient have a stroke diagnosis?: No Physical Exam Vital Signs: Vital Signs: Last Vital Signs Temp 97.3 F 04/16/23 07:11 Pulse 81 04/16/23 07:38 Resp 18 04/16/23 07:38 BP 130/72 04/16/23 07:11 Pulse Ox 95 04/16/23 07:11 O2 Del Method Nasal Cannula 04/16/23 07:11 O2 Flow Rate 4 04/16/23 07:11 Oxygen Flow Rate 4 04/14/23 10:13 BMI result Body Mass Index 29.1 Const: Other: Constitutional : Awake, interactive, not in distress Neck : Normal inspection, Supple Cardiovascular : RRR, no JVP, no lower extremity edema Respiratory : fair bilateral air entry, no crackles, no expiratory wheezes Gastrointestinal: soft, lax, Normal bowel sounds, Non tender Skin : Warm, Dry Neurological : Alert & oriented x3, No focal deficit DS: Data Data Completed and Pending Completed studies during hospitalization [Text1]: Procedures Assistance with Respiratory Ventilation, Less than 24 Consecutive Hours, Continuous Positive Airway Pressure (10/19/22) Labs on day of discharge: Laboratory Results - last 24 hr 04/15/23 04/15/23 04/15/23 10:44 15:56 20:00 POC Glucose 133 H 184 H 143 H 04/16/23 07:10 POC Glucose 93 Preliminary micro results at discharge 04/14/23 10:51 Blood Culture - Preliminary Blood - Venous No growth after 24 hours. 04/14/23 10:33 Blood Culture - Preliminary Blood - Venous No growth after 24 hours. Imaging Chest x-ray: Radiologist's impression: ITS Impressions Chest X-Ray 04/14/23 10:36 IMPRESSION: Bilateral lower lobe interstitial prominence and bronchial wall thickening suggestive of bronchitis. No consolidation or pleural effusion seen. Discharge Plan Discharge Anticipated Discharge Date/Time: 04/16/23 09:18 Patient Disposition: Home Health Service Discharge Diagnosis: COPD exacerbation Referrals: Analisa Carr MD [Primary Care Provider] - 1 Week Discharge Medications: New prednisone 20 mg Tablet 40 mg PO DAILY Qty: 8 0RF Continued sertraline 100 mg tablet 200 mg PO DAILY 90 Days Qty: 180 1RF quetiapine 50 mg tablet 50 mg PO BID 90 Days Qty: 180 1RF isosorbide mononitrate 30 mg tablet extended release 24 hr 30 mg PO DAILY 90 Days Qty: 90 3RF Protocol: Hold for SBP< HOLD for SBP < : 90 montelukast 10 mg tablet 10 mg PO BEDTIME Qty: 30 11RF carvedilol 12.5 mg tablet 12.5 mg PO BID Qty: 90 1RF tiotropium bromide [Spiriva with HandiHaler] 18 mcg capsule, w/inhalation device 1 cap inhalation DAILY Qty: 30 5RF albuterol sulfate [Ventolin HFA] 90 mcg/actuation HFA aerosol inhaler 2 puff inhalation Q6H PRN (Reason: shortness of breath or wheezing) 30 Days Qty: 18 2RF trazodone 50 mg tablet 100 mg PO BEDTIME folic acid 1 mg Tablet 1 mg PO DAILY Qty: 90 4RF prednisone 5 mg tablet 5 mg PO DAILY 90 Days Qty: 90 1RF fluticasone furoate-vilanterol [Breo Ellipta] 100-25 mcg/dose blister with device 1 inh inhalation DAILY 30 Days Qty: 60 0RF furosemide [Lasix] 40 mg tablet 40 mg PO DAILY losartan 25 mg tablet 25 mg PO DAILY Qty: 30 5RF Discharge Orders: Discharge Order (Routine); Ordered 04/16/23 Ordered By: Kailey Angelo Diet: Advance to usual diet Activity on Discharge: As tolerated Stand Alone Forms: Patient Portal Discharge page Care Plan Goals: Read below Health Concerns: Read below Plan of Treatment: Read below Assessment: You were admitted for treatment of COPD exacerbation. Responded well to steroids and nebulizers. Continue Prednisone as prescribed Use your home inhalor as scheduled
--- NOTE | 2023-04-16 10:36 | MHC.CM.PN ---
Pt has been medically cleared for DC. Referral was submitted to [facility] because pt stated that she did not have enough [employer] hours and needs more. Pt. will go home via ambulance.
[2023-04-16 11:13] LABS: Glucose, Whole Blood 177 mg/dL (60-115)
--- NOTE | 2023-04-16 11:22 | MHC.CM.PN ---
Pt. said she did not want to wait for ambulance transport, she left AMA via private transport.
== END 2023-04-16 11:28 | disposition home health service (06) | DRG 133 ==
LOC: HO.ED 15:24 → HO.EDOVER 20:45 → HO.IMC 22:15
PROVIDERS: Internal Medicine; Admitting Provider Physician Assistant; Emergency Provider Emergency Medicine Emergency Medical Services; PCP Internal Medicine; Visit Provider Student in an Organized Health Care Education/Training Program
DX: J96.21 Acute and chronic respiratory failure with hypoxia (principal); I50.22 Chronic systolic (congestive) heart failure; J44.0 Chronic obstructive pulmonary disease with (acute) lower respiratory infection; Z99.81 Dependence on supplemental oxygen; I11.0 Hypertensive heart disease with heart failure; J20.9 Acute bronchitis, unspecified; Z66 Do not resuscitate; J44.1 Chronic obstructive pulmonary disease with (acute) exacerbation; F39 Unspecified mood [affective] disorder; E78.2 Mixed hyperlipidemia; G47.33 Obstructive sleep apnea (adult) (pediatric); J96.22 Acute and chronic respiratory failure with hypercapnia; E87.6 Hypokalemia; Z20.822 Contact with and (suspected) exposure to COVID-19; Z91.199 Patient's noncompliance with other medical treatment and regimen due to unspecified reason; Z79.51 Long term (current) use of inhaled steroids; Z79.899 Other long term (current) drug therapy
CPT/HCPCS: 0241U; 36415; 71045; 80048; 80053; 82803; 82947; 83605; 83690; 83735; 83880; 84484; 85025; 85610; 85730; 87040; 93005; 94640; 97162; 99285; J1650; J2930; J3480

== ENCOUNTER → 2023-04-14 10:23 | Outpatient (BNV) | payer OTHER, SELFPAY | PROVIDERS: Emergency Provider Emergency Medicine Emergency Medical Services; Visit Provider Internal Medicine Cardiovascular Disease | DX: R06.02 Shortness of breath (principal); R94.31 Abnormal electrocardiogram [ECG] [EKG] | CPT/HCPCS: 93010 ==

== ENCOUNTER → 2023-04-14 16:21 | Outpatient (BNV) | payer OTHER, SELFPAY | PROVIDERS: Admitting Provider Physician Assistant; Emergency Provider Emergency Medicine Emergency Medical Services; Visit Provider Student in an Organized Health Care Education/Training Program | DX: J44.1 Chronic obstructive pulmonary disease with (acute) exacerbation (principal); J96.21 Acute and chronic respiratory failure with hypoxia; J96.22 Acute and chronic respiratory failure with hypercapnia; J20.9 Acute bronchitis, unspecified | CPT/HCPCS: 99223; 99232; 99238 ==

== ENCOUNTER 2023-04-29 17:50 | Inpatient (IN) | payer OTHER, SELFPAY ==
--- NOTE | ~2023-04-29 | XR_ITS ---
EXAMINATION: XR CHEST CLINICAL INFORMATION: Dyspnea. COMPARISON: 04/14/2023. TECHNIQUE: Frontal view of the chest was obtained. FINDINGS: The cardiomediastinal silhouette is stable. There is a right middle lobe opacity with apparent obscuration of the right heart border. The lungs are otherwise clear. The bony structures and soft tissues are unremarkable. XR/XR chest 1V IMPRESSION: Apparent right middle lobe opacity with obscuration of the right heart border. Suspect atelectasis/scarring. Infiltrate considered less likely.
--- NOTE | ~2023-04-29 | CT_ITS ---
EXAMINATION: CT CHEST WITHOUT CONTRAST CLINICAL INFORMATION: Hypoxemia COMPARISON: Plain films same date. Abdomen pelvis CT 09/07/2022. TECHNIQUE: Multidetector volumetric CT imaging of the chest was done. Axial MIP volume rendering provided. Sagittal and coronal reformatted images were obtained. This CT examination was performed using dose optimization techniques as appropriate, variously including the following: *Automated exposure control *Adjustment of mA and/or kV according to patient size (this includes techniques or standardized protocols for targeted exams where dose is matched to indication/reason for exam; i.e. extremities or head) *Use of iterative reconstruction technique DLP: 248 mGy-cm FINDINGS: ENVIRONMENTAL SERVICES PROJECT MANAGER: Unremarkable. LUNGS: Minor areas of patchy consolidation in the right lower lobe posterior as well as the more anterior inferior right middle lobe abutting the pericardial fat. Pneumonia is suspected. The lungs do appear to be hyperaerated with increased air in the retrosternal space. This is compatible with emphysematous change. MEDIASTINUM: Moderate cardiomegaly. Minimal pericardial thickening. Trace fluid in the superior pericardial recess. No suspicious adenopathy. CORONARY ARTERY CALCIFICATION: None visualized on this study. PLEURA: There is no pleural effusion. No pleural mass or thickening. AXILLA: No lymphadenopathy. UPPER ABDOMEN: Unremarkable. OSSEOUS STRUCTURES: There is a severe compression fracture what appears to be L1. No change from 09/07/2022 CT/CT chest wo IV con IMPRESSION: COPD. Right basilar pneumonia. Fleischner guidelines were followed.
--- NOTE | ~2023-04-29 | XR_ITS ---
EXAMINATION: XR CHEST CLINICAL INFORMATION: Hypoxia. COMPARISON: 04/30/2023. TECHNIQUE: Frontal view of the chest was obtained. FINDINGS: The cardiomediastinal silhouette is stable. There is no focal lung consolidation or pleural effusion. The bony structures and soft tissues are unremarkable. XR/XR chest 1V IMPRESSION: No acute cardiopulmonary process.
[2023-04-29 17:56] VITALS: BP 146/88; PULSE 87; O2SAT 96
[2023-04-29 18:33] VITALS: BP 150/89; PULSE 95; RESP 20; TEMP 36.8; O2SAT 98; BMI 28.8
--- NOTE | 2023-04-29 18:33 | ED_ITS ---
HPI - General Adult General Chief complaint: Dyspnea Stated complaint: SOB,84% HOME O2 5LPM PER EMS Time Seen by Provider: 04/30/23 00:33 History of Present Illness HPI narrative: The patient is a 62-year-old female with a history of multiple medical problems including COPD, congestive heart failure, pulmonary hypertension and multiple hospitalizations for breathing problems. The patient came to the emergency room by ambulance today. She apparently has had worsening shortness of breath over the last 3 days. She does not know if she has had a fever. She has had a headache. She has had chest pain over the last few days as well but no chest pain currently. According to paramedics the patient was not on her home oxygen when they arrived. Apparently she is supposed to be on 5 liters/minute at home. Related Data Home Medications Medication Instructions Recorded Confirmed trazodone 50 mg tablet 100 mg PO BEDTIME 03/08/20 04/14/23 furosemide 40 mg tablet (Lasix) 40 mg PO DAILY 04/03/23 04/14/23 Previous Rx's Medication Instructions Recorded quetiapine 50 mg tablet 50 mg PO BID 90 days #180 tabs 12/18/20 sertraline 100 mg tablet 200 mg (2 x 100 mg) PO DAILY 90 12/18/20 days #180 tabs folic acid 1 mg tablet 1 mg PO DAILY #90 tabs 09/04/22 isosorbide mononitrate 30 mg 30 mg PO DAILY 90 days #90 tabs 10/05/22 tablet,extended release 24 hr montelukast 10 mg tablet 10 mg PO BEDTIME #30 tabs 11/30/22 carvedilol 12.5 mg tablet 12.5 mg PO BID #90 tabs 01/12/23 fluticasone furoate 100 1 inh inhalation DAILY 30 days #60 01/12/23 mcg-vilanterol 25 mcg/dose ea inhalation powder (Breo Ellipta) prednisone 5 mg tablet 5 mg PO DAILY 90 days #90 tabs 01/12/23 tiotropium bromide 18 mcg capsule 1 cap inhalation DAILY #30 ea 03/10/23 with inhalation device (Spiriva with HandiHaler) Ventolin HFA 90 mcg/actuation 2 puff inhalation Q6H PRN 03/25/23 aerosol inhaler (albuterol sulfate) shortness of breath or wheezing 30 days #18 grams losartan 25 mg tablet 25 mg PO DAILY #30 tabs 04/03/23 prednisone 20 mg tablet 40 mg (2 x 20 mg) PO DAILY #8 tabs 04/16/23 Allergies Allergy/AdvReac Type Severity Reaction Status Date / Time nicotine [Nicotine] Allergy Mild ITCHING Verified 04/14/23 10:20 WITH THE PATCHES topiramate Allergy Mild inadequealte Verified 04/14/23 10:20 response Review of Systems 2 Review of Systems: Yes all other systems are reviewed and are negative [facility] Past Medical History Medical History Congestive heart failure Acute and chronic respiratory failure with hypoxia Respiratory failure with hypoxia and hypercapnia Atelectasis, right Hypertensive emergency Pulmonary hypertension Osteoporosis Essential hypertension Supraventricular tachycardia Nonischemic cardiomyopathy Non-rheumatic mitral regurgitation Tobacco abuse Depression Anxiety Chronic respiratory failure Severe chronic obstructive pulmonary disease HFrEF (heart failure with reduced ejection fraction) KELLIE (obstructive sleep apnea) Diabetes HLD (hyperlipidemia) HTN (hypertension) Surgical History History of total abdominal hysterectomy Bilateral ankle fractures Family History Family History Father No problems noted. 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 home services: Yes Unable to assess alcohol history related to: Unable to respond Alcohol intake: never Patient Tobacco Use Status: Never used Tobacco Tobacco use type: Cigarette Cigarettes Per Day: 4 Years Smoked: 50 +/- Smoked in Last 30 Days: Yes e-Cigarette/Vaping Use: Never Used Second Hand Smoke Exposure: No Use of substances other than those prescribed or required for medical reasons: No Advance Directives: Yes Advance Directives on File: Yes Advance Directives Date on File: 04/30/20 Patient : No service: No Current occupational status: disabled Cognitive needs: Yes Hearing needs: No Vision needs: No Physical Exam ED Vital Signs: Vital Signs - 24 hr 04/29/23 18:33 04/30/23 00:51 04/30/23 01:28 Temperature 98.2 F 98.0 F Pulse Rate 95 91 90 Respiratory Rate 20 15 18 Blood Pressure 150/89 H 202/113 H Pulse Oximetry 98 99 Oxygen Delivery Method Nasal Cannula Nasal Cannula Oxygen Flow Rate 4 04/30/23 01:52 04/30/23 03:12 Temperature 97.9 F 98.1 F Pulse Rate 87 87 Respiratory Rate 14 20 Blood Pressure 164/100 H 156/99 H Pulse Oximetry 96 92 Oxygen Delivery Method Nasal Cannula Nasal Cannula Oxygen Flow Rate 4 4 BMI result Body Mass Index 28.8 Const Other: The patient is a chronically ill-appearing 62-year-old. She has some mild increased work of breathing. HENDC Head: Yes normal to inspection and Yes normocephalic Mouth: Normal oral and palatal mucosa present and moist mucous membranes Eyes General: appearance normal, both eyes and all related structures Periorbital: periorbital findings normal Conjunctivae: conjunctivae normal Neck Other: The patient's external jugular veins are mildly prominent but I do not think there is true JVD. Resp Other: The patient had tight wheezes on exam and possibly some crackles as well. There was increased work of breathing. Cardio Other: The patient had a regular rate and rhythm. No definite murmur. GI Other: Abdomen is soft and nontender. Skin Other: Skin is pale and dry Neuro Other: The patient is awake and alert. Speech seems clear. She moves her extremities symmetrically. Grossly neurologically intact Extrem Other: No pitting edema Course Course Course Narrative: RME: 62 yo F [place] speaking w/PMHx CHF, DM, HTN, KELLIE, Pulm HTN, on home O2 5L (baseline) presenting to the ED via EMS c/o SOB and congestion x all the time. Per EMS on their arrival pts home O2 was OFF and she was satting 84% on RA > improved to 96% after home O2 placed. EMS also noted cigarette on counter. EKG, Labs, Viral testing, CXR ordered Full HPI, ROS and PE to be performed by primary ED provider. Medications Administered Discontinued Medications Generic Name Dose Route Start Last Admin Trade Name Freq PRN Reason Stop Dose Admin Acetaminophen 975 mg 04/30/23 01:02 04/30/23 01:13 Acetaminophen 325 Mg Tablet PO 04/30/23 01:03 975 mg ONCE ONE Administration Albuterol Sulfate 2.5 mg/ 5 mg 04/30/23 01:21 04/30/23 01:27 Albuterol Sulfate 2.5 mg INHALE 04/30/23 01:22 5 mg ONCE ONE Administration Methylprednisolone Sodium Succinate 60 mg 04/30/23 01:03 04/30/23 01:14 Methylprednisolone Sod Succ 125 Mg/2 Ml Vial IVPUSH 04/30/23 01:04 60 mg ONCE ONE Administration Nitroglycerin 1 inch 04/30/23 01:01 04/30/23 01:06 Nitroglycerin 2 % Oint 1 Gm Packet TRANSDERMA 04/30/23 01:02 1 inch ONCE ONE Administration Potassium Chloride 40 meq 04/30/23 01:00 04/30/23 01:08 Potassium Chloride Er 10 Meq Tablet.Er PO 04/30/23 01:01 40 meq ONCE ONE Administration Medical Decision Making Medical Decision Making [facility] Narrative: The patient is a 62-year-old female with history of COPD and CHF and pulmonary hypertension who presents with worsening shortness of breath. She looked quite short of breath. Her physical exam showed increased work of breathing and she had tight wheezes and possibly some crackles as well. She was hypertensive. I think this is likely a combination of his COPD exacerbation some degree of associated congestive heart failure although her chest x-ray does not show obvious fluid overload. The patient was treated with nitropaste, bronchodilators, methylprednisolone, and furosemide. The patient's white count and differential are normal. An initial potassium was measured at 2.6. This was repeated before any treatment was instituted and the repeat potassium was 3.4. It is possible the initial potassium may have been measured soon after albuterol administration. The patient's initial troponin was 26. Repeat troponin was 45. I suspect that the rise in troponin is more likely a type 2 event secondary to the patient's difficulty breathing and her significant hypertension. I doubt this represents a type 1 NSTEMI. Lab Data 04/29/23 21:39 04/30/23 01:06 Labs: Lab Results 04/29/23 04/30/23 04/30/23 Range/Units 21:39 01:06 01:07 WBC 10.1 (4.8-10.8) X10*3/uL RBC 4.11 L (4.20-5.50) X10*6/uL Hgb 11.1 L (12.0-16.0) g/dl Hct 35.1 L (37.0-47.0) % MCV 85.4 (80.0-98.0) fL MCH 27.0 (27.0-33.0) pg MCHC 31.6 (31.0-35.0) g/dl RDW 14.8 (11.0-16.0) % Plt Count 175 (160-400) X10*3/uL MPV 10.1 (9.4-12.3) fL Immature Gran % (Auto) 0.4 (0.0-0.4) % Neut % (Auto) 69.7 (45-73) % Lymph % (Auto) 22.0 (20-40) % [place] % (Auto) 6.9 (2-11) % Eos % (Auto) 0.8 (0-4) % Baso % (Auto) 0.2 (0-2) % Lymph # (Auto) 2.2 (1.2-4.9) X10*3/uL [place] # (Auto) 0.7 (0.1-1.2) X10*3/uL Eos # (Auto) 0.1 (0.0-0.4) X10*3/uL Baso # (Auto) 0.0 (0.0-0.2) X10*3/uL Abs Immat Gran (auto) 0.04 H (0.00-0.03) X10*3/uL Absolute Neuts (auto) 7.1 (2.0-8.3) x10*3/uL Absolute Nucleated RBC 0.000 (0.0-0.012) X10*3/uL Nucleated RBC % (auto) 0.0 (0.0-0.2) /100WBC PT 11.1 (11.1-13.3) SEC INR 0.9 (0.9-1.1) Sodium 142 144 (135-145) mmol/L Potassium 2.6 L D 3.4 D (3.3-5.1) mmol/L Chloride 100 100 (96-108) mmol/L Carbon Dioxide 34 H 32 H (22-29) mmol/L Anion Gap 11 L 15 (12-20) BUN 12 11 (9-16) mg/dL Creatinine 0.87 0.87 (0.5-1.4) mg/dL Estim Creat Clear Calc 53.1 53.1 Estimated GFR > 60 > 60 Random Glucose 146 H 135 H (60-115) mg/dL Calcium 9.8 9.6 (8.4-10.2) mg/dL Magnesium 1.9 (1.6-2.6) mg/dL Total Bilirubin 0.3 (0.0-1.0) mg/dL Direct Bilirubin 0.1 (0.0-0.5) mg/dL AST 15 (5-31) U/L ALT 13 (0-31) U/L Alkaline Phosphatase 112 (39-117) U/L Troponin I High Sens 26.5 H D 44.9 H D (<3.5-17.0) ng/L B-Natriuretic Peptide 1326 H (<100) pg/mL Total Protein 7.4 (6.5-8.0) g/dL Albumin 3.9 (3.5-5.0) g/dL Influenza Type A (PCR) NEGATIVE (Negative) Influenza Type B (PCR) NEGATIVE (Negative) RSV RNA Qual (PCR) NEGATIVE (Negative) SARS-CoV-2 RNA (RT-PCR) NEGATIVE (Negative) Independent Interpretation I performed an independent interpretation of an: EKG Interpretation: EKG at 21:21 shows sinus rhythm with premature atrial complexes at 85 beats per minute. No significant change from previous. Critical Care Time Critical Care Time Critical Care Time: Yes Total Critical Care Time: 35 Attestation: The patient was critically ill with a high probability of imminent or life- threatening deterioration. I spent greater than 30 minutes of discontinuous time evaluating the patient, delivering critical care at the bedside, discussing evaluating data with consultants. Critical care time does not include time spent performing separately billable procedures or teaching. Time spent performing critical care with 35 minutes. Discharge Plan Discharge Clinical Impression: Shortness of breath, Congestive heart failure, Acute exacerbation of chronic obstructive pulmonary disease Patient Disposition: Admitted As Inpatient
--- NOTE | 2023-04-29 18:36 | ECG_ITS ---
Test Reason : CHEST PAIN Blood Pressure : / mmHG Vent. Rate : 085 BPM Atrial Rate : 085 BPM P-R Int : 130 ms QRS Dur : 132 ms QT Int : 434 ms P-R-T Axes : 009 -08 -17 degrees QTc Int : 516 ms Sinus rhythm with Premature atrial complexes Right bundle branch block T wave abnormality, consider inferior ischemia Abnormal ECG When compared with ECG of 14-APR-2023 10:38, Premature atrial complexes are now Present Referred By: Fabi Hunt Electronically Signed By:NATALIA SHANNON
[2023-04-29 21:46] LABS: MANUAL DIFF FLAG NO
[2023-04-29 21:48] LABS: Basophils Percent Auto 0.2 % (0-2); Eosinophils Absolute Auto 0.1 X10*3/uL (0.0-0.4); Eosinophils Percent Auto 0.8 % (0-4); Hematocrit 35.1 % (37.0-47.0); Hemoglobin 11.1 g/dl (12.0-16.0); Imm Gran Abs Auto 0.04 X10*3/uL (0.00-0.03); Imm Gran Pct Auto 0.4 % (0.0-0.4); Lymphocytes Absolute Auto 2.2 X10*3/uL (1.2-4.9); Mean Corpuscular HGB Conc 31.6 g/dl (31.0-35.0); Mean Corpuscular Volume 85.4 fL (80.0-98.0); Mean Platelet Volume 10.1 fL (9.4-12.3); Monocytes Absolute Auto 0.7 X10*3/uL (0.1-1.2); Monocytes Percent Auto 6.9 % (2-11); Neutrophils Absolute Auto 7.1 x10*3/uL (2.0-8.3); Neutrophils Percent Auto 69.7 % (45-73); Platelet Count 175 X10*3/uL (160-400); Red Blood Count 4.11 X10*6/uL (4.20-5.50); Red Cell Distribution Width 14.8 % (11.0-16.0); White Blood Count 10.1 X10*3/uL (4.8-10.8)
[2023-04-29 21:54] LABS: INTERNATIONAL NORM RATIO 0.9 (0.9-1.1); Prothrombin Time 11.1 SEC (11.1-13.3)
[2023-04-29 22:07] LABS: Alanine Aminotransferase 13 U/L (0-31); Albumin Level 3.9 g/dL (3.5-5.0); Alkaline Phosphatase 112 U/L (39-117); Anion Gap 11 (12-20); Aspartate Amino Transferase 15 U/L (5-31); Bilirubin Direct 0.1 mg/dL (0.0-0.5); Bilirubin Total 0.3 mg/dL (0.0-1.0); Blood Urea Nitrogen 12 mg/dL (9-16); Calcium 9.8 mg/dL (8.4-10.2); Carbon Dioxide 34 mmol/L (22-29); Chloride 100 mmol/L (96-108); Creatinine Clr Calc Pharmacy 53.1; Estimated Glomerular Filt Rate > 60; Glucose Random 146 mg/dL (60-115); Magnesium 1.9 mg/dL (1.6-2.6); Potassium 2.6 mmol/L (3.3-5.1); Sodium 142 mmol/L (135-145); Total Protein 7.4 g/dL (6.5-8.0)
[2023-04-29 22:08] LABS: B Type Natriuretic Peptide 1326 pg/mL (<100)
[2023-04-29 22:09] LABS: Troponin-I High Sensitivity 26.5 ng/L (<3.5-17.0)
[2023-04-29 22:28] LABS: Influenza A PCR NEGATIVE (Negative); Influenza B PCR NEGATIVE (Negative); Resp Syncy Virus RNA Qual PCR NEGATIVE (Negative); SARS COV2 PCR INHOUSE NEGATIVE (Negative)
[2023-04-30] VITALS (46 sets, daily range): BP systolic 122–202; BP diastolic 52–133; PULSE 85–122; RESP 12–28; TEMP 36.1–37.1; O2SAT 88–99; BMI 29.1
--- NOTE | 2023-04-30 00:53 | MHC.EDTECH ---
THIS PCT JUST ASSUMED CARE OF PT ,PT WAS ASSISTED UNTO BEDSIDE COMMODE ,VOID ,WAS ASSISTED INTO BED ,AND HOOKED UP TO REGISTERED NURSE CARDIAC ,VITALS TAKEN ,PROVIDER AND RN AWARE OF PT HIGH BP ,RN AWARE OF PT REFUSING TO CHANGE INTO HOSPITAL GOWN .
[2023-04-30] MEDS: Nitroglycerin 2 % Oint 1 GM Packet 1 INCH TRANSDERMA (01:06)
[2023-04-30] MEDS: Potassium Chloride ER 10 MEQ TABLET.ER 40 MEQ PO (01:08)
--- NOTE | 2023-04-30 01:09 | MHC.EDTECH ---
PATIENT TROP AND BMP DRAWN AND SENT TO LAB .
[2023-04-30] MEDS: Acetaminophen 325 MG TABLET 975 MG PO (01:13)
[2023-04-30] MEDS: methylPREDNISolone Sod Succ 125 MG/2 ML VIAL 60 MG IVPUSH (01:14)
[2023-04-30] MEDS: Albuterol Sulfate 2.5 MG, Albuterol Sulfate (0.083%) 2.5 MG 5 MG INHALE (01:27)
[2023-04-30 01:28] LABS: Anion Gap 15 (12-20); Blood Urea Nitrogen 11 mg/dL (9-16); Calcium 9.6 mg/dL (8.4-10.2); Carbon Dioxide 32 mmol/L (22-29); Chloride 100 mmol/L (96-108); Creatinine Clr Calc Pharmacy 53.1; Estimated Glomerular Filt Rate > 60; Glucose Random 135 mg/dL (60-115); Potassium 3.4 mmol/L (3.3-5.1); Sodium 144 mmol/L (135-145)
[2023-04-30 01:56] LABS: Troponin-I High Sensitivity 44.9 ng/L (<3.5-17.0)
--- NOTE | 2023-04-30 01:57 | MHC.EDTECH ---
0200 ROUNDING DONE ,VITALS TAKEN ,PT WAS GIVEN WARM BLANKET ,PT CONTINUE TO BE HOOKED UP TO SECY ,PT COMFORTABLE ,NO APPARENT DISTRESS NOTED .
--- NOTE | 2023-04-30 03:18 | MHC.EDTECH ---
Patient belonging list done ,vitals taken .
[2023-04-30] MEDS: Furosemide 100 MG/10 ML VIAL 80 MG IVPUSH (03:29)
--- NOTE | 2023-04-30 04:07 | PC.NURSE ---
At approximately 0345, pt stated she had to urinate. pt transfered to [facility] with no complications. Shortly after, pt sated she was finished nd during the transfer back to the stretcher, pt became increasingly dyspnaic with audible expiratory wheezing, and diophretic, stating that she felt dizzy and asphyxiated . Unable to obtain pulse oxymetry d/t poor perfusion to hands, changed to forehead probe, but no oxymetry read. Placed pt on NRB at 15lpm, requested for assistance, respiratory called. MD Peacock also presented to bedside. Pt O2 sat at 99% via NRB, but pt had continued marked increase in WOB. Pt changed to BiPAP and transferfed back to [facility], with order for no OOB at this time. Pt showing improvement in ventillatilatory effort. Continuing to monitor.
--- NOTE | 2023-04-30 04:16 | PM.IMHP ---
History of Present Illness Date of Service: 04/30/23 Attending physician on admission: Arron Peacock Chief Complaint: shortness of breath x 2 days Patient is a 62-year-old female with pertinent history of type 2 diabetes mellitus, hypertension, non-ischemic cardiomyopathy (most recent echo from 12/30/2022 with LVEF of 50-55%), hyperlipidemia, KELLIE noncompliant with CPAP, pulmonary hypertension, mood disorder, chronic hypoxemic respiratory failure due to COPD with baseline 4 L oxygen who presents to the emergency department for evaluation of progressively worsening shortness of breath over the past 2 to 3 days. She reported experiencing symptoms both at rest and with exertion. She has chronic orthopnea. She denies any recent travels or sick contacts. She also denies any associated fevers, chills, sore throat, congestion, cough, abdominal pain, nausea/vomiting, palpitations, bilateral lower extremity edema, lightheadedness, or chest pain. Initial workup done in the emergency room was significant for elevated BNP at 1326 pg/mL and high sensitivity Troponin I 26.5 ng/L. She was treated with IV Solu-Medrol, Lasix and nitroglycerine patch plus received potassium supplementation and an hour long Albuterol updraft with some improvement which unfortunately was short lived as she again became very dyspneic after using the bedside commode and was placed on BiPAP with some improvement. Review of Systems Review of Systems: Yes all other systems are reviewed and are negative [facility] Medical History (Updated 05/11/23 @ 00:02 by Mary Murphy) Mitral regurgitation Chest pain Mild recurrent major depression Hospital discharge follow-up Lumbar degenerative disc disease Right lower lobe pneumonitis Congestive heart failure Acute and chronic respiratory failure with hypoxia Respiratory failure with hypoxia and hypercapnia Atelectasis, right Hypertensive emergency Pulmonary hypertension Osteoporosis Essential hypertension Supraventricular tachycardia Nonischemic cardiomyopathy Non-rheumatic mitral regurgitation Tobacco abuse Depression Anxiety Chronic respiratory failure Severe chronic obstructive pulmonary disease HFrEF (heart failure with reduced ejection fraction) KELLIE (obstructive sleep apnea) Diabetes HLD (hyperlipidemia) HTN (hypertension) Family History Father No problems noted. Mother Liver cancer Hypertension Surgical History (Updated 04/30/23 @ 10:51 by Ga Mcmahon RN) H/O hysterectomy for benign disease History of total abdominal hysterectomy Bilateral ankle fractures Social History Household Members: None Household Members Other:: 1 Housing: Apartment Do you presently have visiting nurse or other home services: Yes (MEDICAL RECORD CONSULTANT) Unable to assess alcohol history related to: Unable to respond Alcohol intake: never Patient Tobacco Use Status: Never used Tobacco Tobacco use type: Cigarette Cigarettes Per Day: 4 Years Smoked: 50 +/- e-Cigarette/Vaping Use: Never Used Second Hand Smoke Exposure: No Advance Directives Date on File: 04/30/20 service: No Current occupational status: disabled Cognitive needs: Yes Hearing needs: No Vision needs: No Meds Allergies Allergy/AdvReac Type Severity Reaction Status Date / Time nicotine [Nicotine] Allergy Mild ITCHING Verified 04/14/23 10:20 WITH THE PATCHES topiramate Allergy Mild inadequealte Verified 04/14/23 10:20 response Home Medications Medication Instructions Recorded Confirmed Last Taken Type trazodone 50 mg tablet 100 mg PO BEDTIME PRN Insomnia 03/08/20 04/30/23 10/18/22 History furosemide 40 mg tablet (Lasix) 40 mg PO DAILY 04/03/23 04/30/23 Unknown History albuterol sulfate 90 mcg/actuation 2 puff inhalation Q4-6H PRN 04/30/23 04/30/23 Unknown History aerosol inhaler (Ventolin HFA) Shortness Of Breath Or Wheezing fluticasone furoate 100 1 inh inhalation DAILY 04/30/23 04/30/23 Unknown History mcg-vilanterol 25 mcg/dose inhalation powder montelukast 10 mg tablet 10 mg PO BEDTIME 04/30/23 04/30/23 Unknown History prednisone 5 mg tablet 5 mg DAILY 04/30/23 04/30/23 Unknown History quetiapine 50 mg tablet 50 mg PO BID 04/30/23 04/30/23 Unknown History sertraline 100 mg tablet 200 mg PO DAILY 04/30/23 04/30/23 Unknown History tiotropium bromide 18 mcg capsule 1 cap inhalation DAILY 04/30/23 04/30/23 Unknown History with inhalation device (Spiriva with HandiHaler) Physical Exam Vital Signs and Narrative: Vital Signs: Last Vital Signs Temp 98.1 F 04/30/23 03:12 Pulse 95 04/30/23 04:12 Resp 16 04/30/23 04:12 BP 161/106 H 04/30/23 04:12 Pulse Ox 95 04/30/23 04:12 O2 Del Method BiPAP 04/30/23 04:12 O2 Flow Rate 4 04/30/23 03:12 Oxygen Flow Rate 5 04/29/23 18:33 BMI result Body Mass Index 28.8 General: Well nourished female in bed. On BiAP. Awake, alert and oriented x 4. In moderate resp distress using acc muscles of respiration. Eyes: No pallor or jaundice. PERRLA, EOMI HENT: Moist oral mucus membranes. No oropharyngeal lesions. Neck: Supple. No cervical adenopathy. No JVD Cardiovascular: Regular rate and rhythm. Normal heart sounds. No murmurs, rubs or gallops. No JVD. No peripheral edema. Respiratory: Diminished BS bilaterally with few end expiratory wheezes in the upper lung [place]. Positive use of accessory muscle use. CTAB. Gastrointestinal: Abdomen is soft, non-tender, non-distended. NABS. No hepatosplenomegaly Extremities: No edema. No calf tenderness. Good peripheral pulses Skin: Warm/Dry. No rashes. No mottling. Capillary refill is < 2 seconds Neurological: AAOx4. Intact speech & cognition. Normal gait & balance. CN II - XII grossly intact but not individually tested. No motor or sensory deficits Hematologic: No bleeding. No ecchymosis. No swollen or tender lymph nodes. Psychiatric: Cooperative. Appropriate mood and affect. Results Labs 05/01/23 05:31 05/02/23 05:59 Labs: Laboratory Results - last 24 hr 04/29/23 04/30/23 21:39 01:06 MCV 85.4 MCH 27.0 MCHC 31.6 RDW 14.8 Plt Count 175 MPV 10.1 Immature Gran % (Auto) 0.4 Neut % (Auto) 69.7 Lymph % (Auto) 22.0 [place] % (Auto) 6.9 Eos % (Auto) 0.8 Baso % (Auto) 0.2 Lymph # (Auto) 2.2 [place] # (Auto) 0.7 Eos # (Auto) 0.1 Baso # (Auto) 0.0 Abs Immat Gran (auto) 0.04 H Absolute Neuts (auto) 7.1 Absolute Nucleated RBC 0.000 Nucleated RBC % (auto) 0.0 PT 11.1 INR 0.9 Anion Gap 11 L 15 Estim Creat Clear Calc 53.1 53.1 Estimated GFR > 60 > 60 Random Glucose 146 H 135 H Calcium 9.8 9.6 Magnesium 1.9 Total Bilirubin 0.3 Direct Bilirubin 0.1 AST 15 ALT 13 Alkaline Phosphatase 112 B-Natriuretic Peptide 1326 H Total Protein 7.4 Albumin 3.9 Influenza Type A (PCR) NEGATIVE Influenza Type B (PCR) NEGATIVE RSV RNA Qual (PCR) NEGATIVE SARS-CoV-2 RNA (RT-PCR) NEGATIVE ECG ECG interpretation date: 04/30/23 ECG interpretation time: 06:50 Interpretation: NSR at 85 bpm with PACs. Normal intervals. TWI in the inferior leads. Imaging Radiologist's Impressions: Impressions Chest X-Ray 04/30/23 00:40 Apparent right middle lobe opacity with obscuration of the right heart border. Suspect atelectasis/scarring. Infiltrate considered less likely. Assessment and Plan (1) Acute exacerbation of chronic obstructive pulmonary disease: Status: Acute (2) Congestive heart failure: Qualifiers: Heart failure chronicity: acute on chronic Heart failure type: systolic Qualified Code(s): I50.23 - Acute on chronic systolic (congestive) heart failure Status: Acute (3) Acute hypoxic respiratory failure: Status: Acute (4) Elevated troponin: Status: Resolved Plan 62-year-old female with pertinent history of type 2 diabetes mellitus, hypertension, non-ischemic cardiomyopathy (most recent echo from 12/30/2022 with LVEF of 50-55%), hyperlipidemia, KELLIE noncompliant with CPAP, pulmonary hypertension, mood disorder, chronic hypoxemic respiratory failure due to COPD with baseline 4 L oxygen here with: 1. COPD with acute exacerbation - admit and continue with IV steroids, scheduled duo nebs and PRN Albuterol updrafts - consider adding Azithromycin 2. CHF exacerbation - she has known h/o HFrEF (LVEF of 50-55% in 12/24) - she received a dose of 80 mg of IV Lasix in the ED - will monitor I/Os. renal function and electrolytes (her K+ was borderline low) -
[2023-04-30] MEDS: Albuterol/Iprat 2.5/0.5MG 3 ML AMPUL.NEB INHALE ×4 (07:24→19:41)
--- NOTE | 2023-04-30 07:31 | PHA.MEDREC ---
Pharmacy Consult ? Medication Reconciliation Pharmacy has completed the medication reconciliation. Spoke to patient via supervisor [employer]. Per patient, nothing has changed in medication since last discharge. Lasix dose is now 40mg daily. Still reports using Breo Ellipta.
--- NOTE | 2023-04-30 10:03 | PM.CCHP ---
History of Present Illness Date of Service: 04/30/23 Attending physician on admission: Amber Trujillo Chief Complaint: Shortness of breath 62-year-old moderately obese hypertensive female with longstanding steroid and oxygen dependent COPD of breath and acute on chronic hypoxemic respiratory failure No fever and no history of sputum production No chest pain and no history of coronary disease Shoes on BiPAP in the emergency room still with significant diaphragmatic effort and but looks like somewhat hyper been E echo as well acting as though it would with a high minute volume requirement probably still has a very small alveolar ventilation CT scan reveals only COPD and the scattered what appears to be interstitial infiltrate could easily be indicative of pulmonary edema Bedside echo did demonstrate mild diffuse hypokinesis consistent with early reduction of systolic reserve and ejection fraction 50% no primary valve or pericardial disease Review of Systems Review of Systems: Yes Unobtainable due to mental status [facility] Past Medical History Medical History (Updated 04/30/23 @ 06:56 by Arron Peacock MD) Congestive heart failure Acute and chronic respiratory failure with hypoxia Respiratory failure with hypoxia and hypercapnia Atelectasis, right Hypertensive emergency Pulmonary hypertension Osteoporosis Essential hypertension Supraventricular tachycardia Nonischemic cardiomyopathy Non-rheumatic mitral regurgitation Tobacco abuse Depression Anxiety Chronic respiratory failure Severe chronic obstructive pulmonary disease HFrEF (heart failure with reduced ejection fraction) KELLIE (obstructive sleep apnea) Diabetes HLD (hyperlipidemia) HTN (hypertension) Family History Family History Father No problems noted. 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 If so, by whom?: No Do you feel safe in your current relationship?: No Current Relationship Is there a partner from a previous relationship who is making you feel unsafe now?: No Are you made to feel afraid or neglected: No Spiritual Healthcare Practices: N/A Sikh Healthcare Practices: N/A Cultural Healthcare Practices: N/A Advance Directives: Yes Advance Directives on File: Yes Advance Directives Date on File: 04/30/20 Do you have thoughts of harming others: None Do you have a plan to hurt others: No Plan Recently lost weight without trying: No Nutrition Risks: No Nutritional Risk Patient : No service: No Current occupational status: disabled Cognitive needs: Yes Hearing needs: No Vision needs: No Meds Allergies Allergy/AdvReac Type Severity Reaction Status Date / Time nicotine [Nicotine] Allergy Mild ITCHING Verified 04/14/23 10:20 WITH THE PATCHES topiramate Allergy Mild inadequealte Verified 04/14/23 10:20 response Active Medications: Current Medications Albuterol Sulfate (Albuterol Sulfate (0.083%) 2.5 Mg/3 Ml Vial.Neb) 2.5 mg INHALE 8XD PRN PRN Reason: Shortness of Breath/Wheezing Stop: 04/30/23 13:01 Famotidine (Famotidine/Pf 20 Mg/2 Ml Vial) 20 mg IVPUSH BID [facility] Heparin Sodium (Porcine) (Heparin Sodium,Porcine 5,000 Unit/Ml Vial) 5,000 unit SUBCUT Q8H [facility] Home Medications Medication Instructions Recorded Confirmed Last Taken Type trazodone 50 mg tablet 100 mg PO BEDTIME PRN Insomnia 03/08/20 04/30/23 10/18/22 History furosemide 40 mg tablet (Lasix) 40 mg PO DAILY 04/03/23 04/30/23 Unknown History albuterol sulfate 90 mcg/actuation 2 puff inhalation Q4-6H PRN 04/30/23 04/30/23 Unknown History aerosol inhaler (Ventolin HFA) Shortness Of Breath Or Wheezing fluticasone furoate 100 1 inh inhalation DAILY 04/30/23 04/30/23 Unknown History mcg-vilanterol 25 mcg/dose inhalation powder isosorbide mononitrate 30 mg 30 mg PO DAILY 04/30/23 04/30/23 Unknown History tablet,extended release 24 hr losartan 25 mg tablet 25 mg DAILY 04/30/23 04/30/23 Unknown History montelukast 10 mg tablet 10 mg PO BEDTIME 04/30/23 04/30/23 Unknown History prednisone 5 mg tablet 5 mg DAILY 04/30/23 04/30/23 Unknown History quetiapine 50 mg tablet 50 mg PO BID 04/30/23 04/30/23 Unknown History sertraline 100 mg tablet 200 mg PO DAILY 04/30/23 04/30/23 Unknown History tiotropium bromide 18 mcg capsule 1 cap inhalation DAILY 04/30/23 04/30/23 Unknown History with inhalation device (Spiriva with HandiHaler) Physical Exam Vital Signs: Vital Signs: Last Vital Signs Temp 98.7 F 04/30/23 06:00 Pulse 92 04/30/23 08:19 Resp 13 04/30/23 08:19 BP 122/97 H 04/30/23 08:19 Pulse Ox 98 04/30/23 08:19 O2 Del Method Oxymask 04/30/23 08:19 O2 Flow Rate 15 04/30/23 08:19 FiO2 35 04/30/23 06:00 Oxygen Flow Rate 5 04/29/23 18:33 BMI result Body Mass Index 28.8 Not in distress and no accessory muscle use but definitely hyper bili it with significant diaphragmatic expiratory effort Normal skin with no edema no acrocyanosis Abdomen soft no organomegaly Cardiac exam as above mild reduction of systolic probably diastolic reserve given the significant left ventricular dilatation Results Labs 04/29/23 21:39 04/30/23 01:06 Labs: Laboratory Results - last 24 hr 04/29/23 04/30/23 21:39 01:06 MCV 85.4 MCH 27.0 MCHC 31.6 RDW 14.8 Plt Count 175 MPV 10.1 Immature Gran % (Auto) 0.4 Neut % (Auto) 69.7 Lymph % (Auto) 22.0 [place] % (Auto) 6.9 Eos % (Auto) 0.8 Baso % (Auto) 0.2 Lymph # (Auto) 2.2 [place] # (Auto) 0.7 Eos # (Auto) 0.1 Baso # (Auto) 0.0 Abs Immat Gran (auto) 0.04 H Absolute Neuts (auto) 7.1 Absolute Nucleated RBC 0.000 Nucleated RBC % (auto) 0.0 PT 11.1 INR 0.9 Anion Gap 11 L 15 Estim Creat Clear Calc 53.1 53.1 Estimated GFR > 60 > 60 Random Glucose 146 H 135 H Calcium 9.8 9.6 Magnesium 1.9 Total Bilirubin 0.3 Direct Bilirubin 0.1 AST 15 ALT 13 Alkaline Phosphatase 112 B-Natriuretic Peptide 1326 H Total Protein 7.4 Albumin 3.9 Influenza Type A (PCR) NEGATIVE Influenza Type B (PCR) NEGATIVE RSV RNA Qual (PCR) NEGATIVE SARS-CoV-2 RNA (RT-PCR) NEGATIVE Imaging Radiologist's Impressions: Impressions Chest X-Ray 04/30/23 00:40 IMPRESSION: Apparent right middle lobe opacity with obscuration of the right heart border. Suspect atelectasis/scarring. Infiltrate considered less likely. Chest CT 04/30/23 08:38 IMPRESSION: COPD. Right basilar pneumonia. Fleischner guidelines were followed. Assessment and Plan (1) Acute hypoxic respiratory failure: Status: Acute (2) Acute exacerbation of chronic obstructive pulmonary disease: Status: Acute (3) Congestive heart failure: Qualifiers: Heart failure chronicity: acute on chronic Heart failure type: systolic Qualified Code(s): I50.23 - Acute on chronic systolic (congestive) heart failure Status: Acute (4) Shortness of breath: Status: Acute (5) Mitral regurgitation: Status: Acute (6) Chest pain: Status: Acute (7) Mild recurrent major depression: Status: Acute (8) Hospital discharge follow-up: Status: Acute (9) Lumbar degenerative disc disease: Status: Acute (10) Right lower lobe pneumonitis: Status: Acute (11) Congestive heart failure: Qualifiers: Heart failure chronicity: acute on chronic Heart failure type: unspecified Qualified Code(s): I50.9 - Heart failure, unspecified Status: Acute (12) Severe chronic obstructive pulmonary disease: Status: Acute (13) Pulmonary hypertension: Status: Acute (14) Diabetes: Qualifiers: Diabetes mellitus type: type 2 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 mellitus 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 insulin use: without 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 use Diabetes mellitus complication status: without complication Qualified Code(s): E11.9 - Type 2 diabetes mellitus without complications Status: Acute (15) Essential hypertension: Status: Acute Plan For the impression here is that we do have significant contribution from CA for from COPD but the in this instance I would wonder if this is in CHF that the tip the scales here Plan is to continue temporizing with the BiPAP mechanism and given the fact that blood pressures are consistently at 190 systolic afterload reduction I believe with IV nitroprusside might also be another quick way of alleviate alleviating the respiratory effort and what looks like interstitial pulmonary edema Total time managing care of this patient today: 60 minutes.
[2023-04-30] MEDS: NITROPRUSSIDE SODIUM IVCONT ×3 (11:37→21:34)
[2023-04-30] MEDS: DEXTROSE 5% IVCONT ×3 (11:37→21:34)
[2023-04-30 11:41] LABS: VBG Base Excess 14.2 mmol/L; VBG HCO3 40 mmol/L (22-26); VBG pCO2 57 mmHg; VBG pH 7.45 (7.32-7.43); VBG pO2 28 mmHg
[2023-04-30] MEDS: methylPREDNISolone Sod Succ 40 MG/ML VIAL IVPUSH ×3 (11:46→22:30)
[2023-04-30] MEDS: Spironolactone 25 MG TABLET PO (11:46)
[2023-04-30] MEDS: Heparin Sodium,Porcine 5,000 UNIT/ML VIAL 5000 UNIT SUBCUT ×2 (11:46→17:50)
[2023-04-30] MEDS: Losartan Potassium 25 MG TABLET PO (11:46)
[2023-04-30 12:15] LABS: Venous Blood Gas Refer to POC result
--- NOTE | 2023-04-30 13:46 | MHC.CM.PN ---
Pt admitted to ICU w/respiratory distress. Pt is presently on BiPap support and is unable to communicate w/CM d/t WOB. HCP on file - call placed and message left requesting a call back. 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 Pt's baseline level of functioning is not yet known. CM will await call back from Chanelle or for improvement w/pt's breathing to complete d/c assessment and planning needs.
--- NOTE | 2023-04-30 16:15 | PC.NURSE ---
Shift eval 10:30-1600. Patient admitted to ICU, room 262, from ED @ approx 1030. Patient admitted for increase chest tightness / sob. Patient on oxygen at home. Had been put on BIPAP in ED. Settings upon time of transfer to ICU - 04/08, 40%. Transferred via stretcher on oximask without issue with RT at bedside during transfer. Upon arrival to ICU, patient put back on bipap until noon. Patient tolerated bipap - RR was low 20's, good volumes, >16. ABG & VBG's had not been drawn - Dr Trujillo aware & phlebotomy called stat to obtain VBG. ABG had been unable to obtain from night auditor. Dr Trujillo viewed results. BP elevated, SBP up to 190's and DBP >100. Dr Trujillo ordered nipride drip - started and goal was 130's to 140's systolic and not to worry about DBP. Drip titrated up per MD order by 0.25mcg/min/kg - (see orders & MAR documentation). Nitro paste still on patient from ED. Dr Trujillo aware of patient off bipap at noon - plan to watch for work of breathing. Patient on oximask - 6 liters, at O2sat goal >90%. O2at 92-94%. RR remained 14-17. Dyspnea with any exertion, otherwise no issues when at rest. Patient pleasant , cooperative, Khmer speaking only. Supervisor Residential utilized multiple times to educate about plan of care and medications given. Report given to oncoming CARRILLO Hu.
[2023-04-30 18:41] LABS: Glucose, Whole Blood 232 mg/dL (60-115)
[2023-04-30] MEDS: Acetaminophen 325 MG TABLET 650 MG PO (19:40)
[2023-04-30] MEDS: carvediloL 6.25 MG TABLET PO (20:31)
[2023-04-30] MEDS: Famotidine/PF 20 MG/2 ML VIAL IVPUSH (20:31)
[2023-04-30 20:49] LABS: VBG Base Excess 14.3 mmol/L; VBG HCO3 37 mmol/L (22-26); VBG pCO2 40 mmHg; VBG pH 7.57 (7.32-7.43); VBG pO2 37 mmHg
[2023-04-30 21:10] LABS: Albumin Level 4.1 g/dL (3.5-5.0); Anion Gap 18 (12-20); Blood Urea Nitrogen 15 mg/dL (9-16); Calcium 9.4 mg/dL (8.4-10.2); Carbon Dioxide 31 mmol/L (22-29); Chloride 96 mmol/L (96-108); Glucose Random 220 mg/dL (60-115); Magnesium 1.7 mg/dL (1.6-2.6); Phosphorus 2.8 mg/dL (2.7-4.5); Potassium 4.1 mmol/L (3.3-5.1); Sodium 141 mmol/L (135-145)
[2023-04-30 21:19] LABS: Creatinine Clr Calc Pharmacy 55.3; Estimated Glomerular Filt Rate > 60
[2023-04-30 21:33] LABS: Venous Blood Gas Refer to POC result
[2023-05-01] VITALS (34 sets, daily range): BP systolic 121–191; BP diastolic 82–125; PULSE 86–102; RESP 11–30; TEMP 36.1–36.9; O2SAT 90–99; BMI 29.3
[2023-05-01 00:12] LABS: Glucose, Whole Blood 166 mg/dL (60-115)
[2023-05-01] MEDS: Heparin Sodium,Porcine 5,000 UNIT/ML VIAL 5000 UNIT SUBCUT ×3 (02:13→18:19)
--- NOTE | 2023-05-01 03:35 | PC.NURSE ---
Addendum entered by Tyesha Escobar RN 05/01/23 06:32: 0631 BP went up to 186/110. MD notified. Nitroprusside increased to 2.5mcg/kg/min. Pt is slightly having labored breathing.RT notified. Pt given nebs ttt. Original Note: Acquired care from 1900. Pt is awake,alert and orientedx3. occitan speaking only. . SR on tele monitor with BBB. No edema. Pt is hypertensive with SBP of 140-160's. C/o headache. Given tylenol with good effect. Denies any chest pain. On 6L O2 via oxymask at the start of the shift. Pt is dyspniec with exertion. desats to 86%. Supplemental O2 was increased to 8L via Oxymask. O2 sats improved to 91%. Then at 2200 transitioned to BIPAP. Pt tolerated it until 2am. Started on PO carvidelol. Nitroprusside drip still infusing at 1.25mcg/kg/min. Kept npo with sips of water. purewick in use with clear urine output.
[2023-05-01] MEDS: methylPREDNISolone Sod Succ 40 MG/ML VIAL IVPUSH ×3 (05:16→17:01)
[2023-05-01 05:37] LABS: VBG Base Excess 10.1 mmol/L; VBG HCO3 32 mmol/L (22-26); VBG pCO2 36 mmHg; VBG pH 7.56 (7.32-7.43); VBG pO2 58 mmHg
[2023-05-01 05:38] LABS: MANUAL DIFF FLAG NO
[2023-05-01 05:39] LABS: Venous Blood Gas Refer to POC result
[2023-05-01 05:39] LABS: Basophils Percent Auto 0.1 % (0-2); Hematocrit 32.4 % (37.0-47.0); Hemoglobin 10.5 g/dl (12.0-16.0); Imm Gran Abs Auto 0.04 X10*3/uL (0.00-0.03); Imm Gran Pct Auto 0.4 % (0.0-0.4); Lymphocytes Percent Auto 10.4 % (20-40); Mean Corpuscular HGB Conc 32.4 g/dl (31.0-35.0); Mean Corpuscular Volume 83.3 fL (80.0-98.0); Mean Platelet Volume 10.1 fL (9.4-12.3); Monocytes Absolute Auto 0.4 X10*3/uL (0.1-1.2); Monocytes Percent Auto 4.6 % (2-11); Neutrophils Percent Auto 84.5 % (45-73); Platelet Count 170 X10*3/uL (160-400); Red Blood Count 3.89 X10*6/uL (4.20-5.50); Red Cell Distribution Width 14.7 % (11.0-16.0); White Blood Count 9.4 X10*3/uL (4.8-10.8)
[2023-05-01 05:58] LABS: Glucose, Whole Blood 165 mg/dL (60-115)
[2023-05-01 06:00] LABS: Anion Gap 14 (12-20); Blood Urea Nitrogen 17 mg/dL (9-16); Calcium 9.3 mg/dL (8.4-10.2); Carbon Dioxide 29 mmol/L (22-29); Chloride 98 mmol/L (96-108); Creatinine Clr Calc Pharmacy 51.7; Estimated Glomerular Filt Rate > 60; Glucose Random 174 mg/dL (60-115); Magnesium 1.7 mg/dL (1.6-2.6); Phosphorus 2.9 mg/dL (2.7-4.5); Potassium 3.4 mmol/L (3.3-5.1); Sodium 138 mmol/L (135-145)
[2023-05-01] MEDS: Albuterol/Iprat 2.5/0.5MG 3 ML AMPUL.NEB INHALE ×4 (06:31→19:50)
[2023-05-01] MEDS: DEXTROSE 5% IVCONT ×2 (06:41→09:41)
[2023-05-01] MEDS: NITROPRUSSIDE SODIUM IVCONT ×2 (06:41→09:41)
[2023-05-01] MEDS: Famotidine/PF 20 MG/2 ML VIAL IVPUSH ×2 (07:17→19:51)
[2023-05-01] MEDS: amLODIPine Besylate 2.5 MG TABLET PO (07:17)
[2023-05-01] MEDS: Spironolactone 25 MG TABLET PO (07:17)
[2023-05-01] MEDS: Losartan Potassium 50 MG TABLET PO (07:17)
[2023-05-01] MEDS: carvediloL 12.5 MG TABLET PO (07:18)
[2023-05-01] MEDS: Furosemide 40 MG TABLET PO (07:18)
--- NOTE | 2023-05-01 10:42 | P.PNCC_ITS ---
Subjective Subjective Date of Service: 05/01/23 Interval History: 62-year-old obese female type 2 diabetic known moderate degree of mitral regurgitation and hypertensive myocardial disease with mildly reduced systolic and diastolic reserve and the significant underlying COPD/ asthma came in with acute respiratory distress along with acute hypoxic and chronic hypercarbic respiratory failure and was requiring ongoing BiPAP mechanism of support and she could not tolerate coming off but I noted that there was evidence of some degree of volume overload there was some IVC distension positive neck vein distension a resting gallop the echo findings as I described above and she was acutely hypertensive at 1 point over 200 systolic I initiated nitroprusside that was rapidly titrated up to a peak of 1.75 micrograms/kilogram per minute pressure is coming down to about 140 and then initiating her oral maintenance medicines and titrating those with that she diuresed had a negative intake output balance and headed I would elevated baseline BNP as corroboration and she rapidly became much less symptomatic and came off BiPAP and has remained off BiPAP for well over 12 hours and is now eating without any significant respiratory effort even her CT scan appeared to indicate interstitial edema Critical Care Time (minutes): 45 Physical Exam 2 Vital Signs: Vital Signs: Last Vital Signs Temp 97.5 F 05/01/23 08:00 Pulse 99 05/01/23 10:00 Resp 30 H 05/01/23 10:00 BP 173/118 H 05/01/23 09:41 Pulse Ox 90 L 05/01/23 10:00 O2 Del Method Oxymask 05/01/23 10:00 O2 Flow Rate 8 05/01/23 10:00 FiO2 40 05/01/23 02:00 Oxygen Flow Rate 16.9 04/30/23 10:58 BMI result Body Mass Index 29.3 current blood pressure still on Nipride is 159/111 with a mean of 120 oxygen saturation and this is just on nasal cannula is 100% and she is in sinus rhythm at a rate of 97 she has an underlying right bundle branch block rare PVCs are noted bedside echo confirming mild reduction of systolic reserve at 50% ejection fraction diminished bilateral expiratory wheeze minimal bibasilar rales abdomen soft with no organomegaly good bilateral carotid upstrokes and no neck vein distension Objective Data Labs 05/01/23 05:31 05/01/23 05:31 Labs: Laboratory Results - last 24 hr 04/30/23 04/30/23 04/30/23 11:35 18:37 20:39 WBC RBC Hgb Hct MCV MCH MCHC RDW Plt Count MPV Immature Gran % (Auto) Neut % (Auto) Lymph % (Auto) [place] % (Auto) Eos % (Auto) Baso % (Auto) Lymph # (Auto) [place] # (Auto) Eos # (Auto) Baso # (Auto) Abs Immat Gran (auto) Absolute Neuts (auto) Absolute Nucleated RBC Nucleated RBC % (auto) VBG pH 7.45 H 7.57 H VBG pCO2 57 40 VBG pO2 28 37 VBG HCO3 40 H 37 H VBG O2 Saturation 35.0 56.0 VBG Base Excess 14.2 14.3 Sodium Potassium Chloride Carbon Dioxide Anion Gap BUN Creatinine Estim Creat Clear Calc Estimated GFR POC Glucose 232 H Random Glucose Calcium Phosphorus Magnesium Albumin 04/30/23 05/01/23 05/01/23 20:40 00:08 05:30 WBC RBC Hgb Hct MCV MCH MCHC RDW Plt Count MPV Immature Gran % (Auto) Neut % (Auto) Lymph % (Auto) [place] % (Auto) Eos % (Auto) Baso % (Auto) Lymph # (Auto) [place] # (Auto) Eos # (Auto) Baso # (Auto) Abs Immat Gran (auto) Absolute Neuts (auto) Absolute Nucleated RBC Nucleated RBC % (auto) VBG pH 7.56 H VBG pCO2 36 VBG pO2 58 VBG HCO3 32 H VBG O2 Saturation 86.0 VBG Base Excess 10.1 Sodium 141 Potassium 4.1 D Chloride 96 Carbon Dioxide 31 H Anion Gap 18 BUN 15 Creatinine 0.84 Estim Creat Clear Calc 55.3 Estimated GFR > 60 POC Glucose 166 H Random Glucose 220 H Calcium 9.4 Phosphorus 2.8 Magnesium 1.7 Albumin 4.1 05/01/23 05/01/23 05:31 05:54 WBC 9.4 RBC 3.89 L Hgb 10.5 L Hct 32.4 L MCV 83.3 MCH 27.0 MCHC 32.4 RDW 14.7 Plt Count 170 MPV 10.1 Immature Gran % (Auto) 0.4 Neut % (Auto) 84.5 H Lymph % (Auto) 10.4 L [place] % (Auto) 4.6 Eos % (Auto) 0.0 Baso % (Auto) 0.1 Lymph # (Auto) 1.0 L [place] # (Auto) 0.4 Eos # (Auto) 0.0 Baso # (Auto) 0.0 Abs Immat Gran (auto) 0.04 H Absolute Neuts (auto) 8.0 Absolute Nucleated RBC 0.000 Nucleated RBC % (auto) 0.0 VBG pH VBG pCO2 VBG pO2 VBG HCO3 VBG O2 Saturation VBG Base Excess Sodium 138 Potassium 3.4 Chloride 98 Carbon Dioxide 29 Anion Gap 14 BUN 17 H Creatinine 0.90 Estim Creat Clear Calc 51.7 Estimated GFR > 60 POC Glucose 165 H Random Glucose 174 H Calcium 9.3 Phosphorus 2.9 Magnesium 1.7 Albumin Progress Note: A&P Assessment and plan (1) Acute hypoxic respiratory failure: Status: Acute (2) Acute exacerbation of chronic obstructive pulmonary disease: Status: Acute (3) Congestive heart failure: Status: Acute (4) Shortness of breath: Status: Acute (5) Mitral regurgitation: Status: Acute (6) Chest pain: Status: Acute (7) Mild recurrent major depression: Status: Acute (8) Hospital discharge follow-up: Status: Acute (9) Lumbar degenerative disc disease: Status: Acute (10) Right lower lobe pneumonitis: Status: Acute (11) Congestive heart failure: Status: Acute (12) Severe chronic obstructive pulmonary disease: Status: Acute (13) Pulmonary hypertension: Status: Acute (14) Diabetes: Status: Acute (15) Essential hypertension: Status: Acute Plan so an underlying COPD with the most recent exacerbation I think largely contributed to by interstitial edema from left heart dysfunction probably on the basis of hypertensive myocardial disease and responding very well acutely to the nitroprusside now we are titrating vasodilators and she remains doing very well and no longer requires BiPAP support Quality Stroke Does the patient have a stroke diagnosis?: No VTE Prior VTE?: No VTE Risk Level:: Medical - moderate - high VTE Device Contraindication: N/A - Device Ordered VTE Drug Contraindication: N/A - Med Ordered
[2023-05-01] MEDS: carvediloL 6.25 MG TABLET PO (10:54)
[2023-05-01] MEDS: amLODIPine Besylate 5 MG TABLET PO (10:54)
[2023-05-01] MEDS: cloNIDine 0.1 MG PATCH.TDWK TRANSDERMA (10:56)
[2023-05-01 12:17] LABS: Glucose, Whole Blood 174 mg/dL (60-115)
--- NOTE | 2023-05-01 13:43 | MHC.CM.PN ---
Met with pt using jeep driver: Pt resides alone and has daily ROLL CAPPER services from Chanelle who is also pt's HCP (on file and verified) Pt uses a walker and has O2 supplied by [facility]. Chanelle assists w/transportation and any ADL need pt may have. Pt is requesting VNA services w/[facility] upon d/c to home: referral made. Pt will dc to home w/BLS for O2 monitoring and high fall risk status. CM to follow.
[2023-05-01] MEDS: cloNIDine HCL 0.1 MG TABLET PO (15:14)
--- NOTE | 2023-05-01 17:30 | PC.NURSE ---
Assumed care of patient 0700 Nitroprusside gtt @1.5 mcg/kg/min for elevated BP. goal SBP 135-145. 07:17 PO medications given for BP control: Aldactone, Losartan, Norvasc, Coreg. 09:41 Nipride gtt titrated up t0 1.75 per MD for BP 173/118 10:54 Coreg 6.25 mg PO given. Clonidine patch 0.1mg applied for anxiety and BP control. 13:03 per MD titrated Nipride gtt down to 1.25 mcg/kg/min. BP 148/82. Plan/goals of care to titrate gtt down and transfer pt to [facility] unit 13:24 Nipride gtt titrated down to 1 mcg/kg/min per MD, BP 137/94. 14:12 titrated down to 0.5 per MD. BP 142/93. 14:40 Per MD titrate down to 0.25 mcg/kg/min. BP 161/93 15:14 Clonidine 0.1 mg PO given for anxiety/restlessness, BP control. 16:34 Per Md turn off Nipride gtt to zero. BP 185/125. MD aware of BP. 16:43 Md notified of BP 207/130. Pt denies headache. Per MD hold Nipride gtt, no new orders.
--- NOTE | 2023-05-01 18:03 | PM.EVENT ---
Event Note Date of Service: 05/01/23 Event Note: 62 female who presented to the ED with sob requiring bipap support admitted to the ICU for respiratory failure also noted to have high bp treated with nitroprusside drip. weaned off drip around 430 this afternoon. bp remains high 184/98. per ICU rec increase coreg to 25 bid tonight and losartan 100 from tomorrow am. off bipap and on 4L NC. continue treatment for copd exacerbation, wean steroids as tolerated. Time Spent With Patient Time: Total time managing care of this patient today ____ minutes.
[2023-05-01 18:30] LABS: Glucose, Whole Blood 170 mg/dL (60-115)
[2023-05-01 19:28] LABS: Glucose, Whole Blood 182 mg/dL (60-115)
[2023-05-01] MEDS: carvediloL 25 MG TABLET PO (19:51)
[2023-05-01 23:36] LABS: Glucose, Whole Blood 179 mg/dL (60-115)
[2023-05-02] VITALS (12 sets, daily range): BP systolic 140–184; BP diastolic 90–111; PULSE 75–88; RESP 16–24; TEMP 36.1–36.9; O2SAT 91–99
[2023-05-02] MEDS: Heparin Sodium,Porcine 5,000 UNIT/ML VIAL 5000 UNIT SUBCUT ×3 (02:56→18:33)
[2023-05-02] MEDS: methylPREDNISolone Sod Succ 40 MG/ML VIAL IVPUSH ×2 (02:57→10:18)
[2023-05-02] MEDS: Albuterol Sulfate (0.083%) 2.5 MG/3 ML VIAL.NEB INHALE (05:31)
[2023-05-02 05:32] LABS: Glucose, Whole Blood 180 mg/dL (60-115)
[2023-05-02 06:28] LABS: Anion Gap 18 (12-20); Blood Urea Nitrogen 28 mg/dL (9-16); Calcium 9.7 mg/dL (8.4-10.2); Carbon Dioxide 28 mmol/L (22-29); Chloride 98 mmol/L (96-108); Creatinine Clr Calc Pharmacy 44.3; Estimated Glomerular Filt Rate 53; Glucose Random 168 mg/dL (60-115); Potassium 3.6 mmol/L (3.3-5.1); Sodium 140 mmol/L (135-145)
[2023-05-02 06:38] LABS: B Type Natriuretic Peptide 1322 pg/mL (<100)
[2023-05-02] MEDS: Albuterol/Iprat 2.5/0.5MG 3 ML AMPUL.NEB INHALE ×4 (07:31→20:00)
[2023-05-02 07:32] LABS: Glucose, Whole Blood 184 mg/dL (60-115)
[2023-05-02] MEDS: Losartan Potassium 50 MG TABLET 100 MG PO (08:25)
[2023-05-02] MEDS: carvediloL 25 MG TABLET PO ×2 (08:25→22:39)
[2023-05-02] MEDS: amLODIPine Besylate 2.5 MG TABLET PO ×2 (08:25→10:18)
[2023-05-02] MEDS: Sertraline HCL 100 MG TABLET 200 MG PO (08:25)
[2023-05-02] MEDS: Spironolactone 25 MG TABLET PO (08:25)
[2023-05-02] MEDS: QUEtiapine Fumarate 50 MG TABLET PO ×2 (08:25→22:39)
[2023-05-02] MEDS: Furosemide 40 MG TABLET PO (08:25)
[2023-05-02] MEDS: Famotidine/PF 20 MG/2 ML VIAL IVPUSH (08:27)
[2023-05-02 11:40] LABS: Glucose, Whole Blood 184 mg/dL (60-115)
[2023-05-02] MEDS: Insulin Lispro 100 UNIT/ML 3 ML VIAL SUBCUT ×2 (12:41→22:41)
[2023-05-02 16:49] LABS: Glucose, Whole Blood 123 mg/dL (60-115)
--- NOTE | 2023-05-02 17:10 | HO.PM.IMPN ---
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 that she has to be in the hospital, doesn't want to stay denies sob, reports her breathing is great Review of Systems Review of Systems: Yes all other systems are reviewed and are negative Constitutional Constitutional: Denies chills and Denies fever(s) Cardiovascular Cardiovascular: Denies chest pain, Denies palpitations and Denies dyspnea Respiratory Respiratory: Denies cough and Denies dyspnea Gastrointestinal Gastrointestinal: Denies abdominal pain Endocrine Endocrine: Denies palpitations Physical Exam Vital Signs: Vital Signs: Last Vital Signs Temp 97.3 F 05/02/23 15:36 Pulse 84 05/02/23 15:36 Resp 18 05/02/23 15:36 BP 183/111 H 05/02/23 15:36 Pulse Ox 95 05/02/23 15:36 O2 Del Method Nasal Cannula 05/02/23 15:36 O2 Flow Rate 4 05/02/23 15:36 FiO2 40 05/01/23 02:00 Oxygen Flow Rate 16.9 04/30/23 10:58 BMI result Body Mass Index 29.3 Const: Other: angry, yelling in egyptian General: alert and awake Nutritional Appearance: average body habitus Orientation/consciousness: patient oriented x3 Resp: Other: no wheezing, no rales Effort & Inspection: normal respiratory effort, able to speak in complete sentences, no respiratory distress and no use of accessory muscles Cardio: Rate: regular rate GI: Inspection: No distended Palpation (GI): Soft to palpation Neuro: General: patient oriented x3 and moves all extremities Extrem: General: Yes no pedal edema Objective Data Active Medications Albuterol Sulfate (Albuterol Sulfate (0.083%) 2.5 Mg/3 Ml Vial.Neb) 2.5 mg INHALE Q4H PRN PRN Reason: Shortness of Breath/Wheezing Last Admin: 05/02/23 05:31 Dose: 2.5 mg Documented By: CHIKIS Albuterol/Ipratropium (Albuterol/Iprat 2.5/0.5mg 3 Ml Ampul.Neb) 3 ml INHALE RQ4H WHILE AWAKE WALDEMAR Last Admin: 05/02/23 14:37 Dose: 3 ml Documented By: MARCIAL Amlodipine Besylate (Amlodipine Besylate 5 Mg Tablet) 5 mg PO DAILY [facility]; Protocol Carvedilol (Carvedilol 25 Mg Tablet) 25 mg PO BID [facility]; Protocol Last Admin: 05/02/23 08:25 Dose: 25 mg Documented By: ANDREW Dextrose (Dextrose 50 % 25 Gm/50 Ml Syringe) 25 gm IVPUSH Q15M PRN; Protocol PRN Reason: per Hypoglycemia Standing Ord. Famotidine (Famotidine/Pf 20 Mg/2 Ml Vial) 20 mg IVPUSH BID [facility] Last Admin: 05/02/23 08:27 Dose: 20 mg Documented By: ANDREW Furosemide (Furosemide 40 Mg Tablet) 40 mg PO DAILY [facility]; Protocol Last Admin: 05/02/23 08:25 Dose: 40 mg Documented By: ANDREW Glucose (Glucose Gel 15 Gm Gel..Gram.) 15 gm PO Q15M PRN; Protocol PRN Reason: per Hypoglycemia Standing Ord. Heparin Sodium (Porcine) (Heparin Sodium,Porcine 5,000 Unit/Ml Vial) 5,000 unit SUBCUT Q8H [facility] Last Admin: 05/02/23 10:18 Dose: 5,000 unit Documented By: ANDREW Insulin Human Lispro (Insulin Lispro 100 Unit/Ml 3 Ml Vial) 0 unit SUBCUT QIDACHS [facility]; Protocol Last Admin: 05/02/23 12:41 Dose: 2 unit Documented By: ANDREW Losartan Potassium (Losartan Potassium 50 Mg Tablet) 100 mg PO DAILY [facility]; Protocol Last Admin: 05/02/23 08:25 Dose: 100 mg Documented By: ANDREW Methylprednisolone Sodium Succinate (Methylprednisolone Sod Succ 40 Mg/Ml Vial) 40 mg IVPUSH Q12H [facility] Quetiapine Fumarate (Quetiapine Fumarate 50 Mg Tablet) 50 mg PO BID [facility] Last Admin: 05/02/23 08:25 Dose: 50 mg Documented By: ANDREW Sertraline HCl (Sertraline Hcl 100 Mg Tablet) 200 mg PO DAILY [facility] Last Admin: 05/02/23 08:25 Dose: 200 mg Documented By: ANDREW Spironolactone (Spironolactone 25 Mg Tablet) 25 mg PO DAILY [facility]; Protocol Last Admin: 05/02/23 08:25 Dose: 25 mg Documented By: ANDREW Labs 05/01/23 05:31 05/02/23 05:59 Labs: Laboratory Results - last 24 hr 05/01/23 05/01/23 05/01/23 18:18 19:16 23:32 Anion Gap Estim Creat Clear Calc Estimated GFR POC Glucose 170 H 182 H 179 H Random Glucose Calcium B-Natriuretic Peptide 05/02/23 05/02/23 05/02/23 05:29 05:59 07:12 Anion Gap 18 Estim Creat Clear Calc 44.3 Estimated GFR 53 POC Glucose 180 H 184 H Random Glucose 168 H Calcium 9.7 B-Natriuretic Peptide 1322 H 05/02/23 05/02/23 11:21 16:33 Anion Gap Estim Creat Clear Calc Estimated GFR POC Glucose 184 H 123 H Random Glucose Calcium B-Natriuretic Peptide Assessment and Plan (1) Acute hypoxic respiratory failure: Status: Acute (2) Acute exacerbation of chronic obstructive pulmonary disease: Status: Acute (3) Essential hypertension: Status: Acute Plan This is a 61-year-old female with history of [id number] diabetes mellitus, essential hypertension, congestive heart failure with reduced ejection fraction, mixed hyperlipidemia, KELLIE noncompliant with CPAP, pulmonary hypertension, mood disorder, chronic hypoxemic respiratory failure due to COPD with baseline 4 L oxygen who presented to the emergency department for evaluation of dyspnea and initially admitted to the ICU for bipap support and management of hypertension requiring nitroprusside drip, downgraded from the ICU on 05/01 Acute on chronic respiratory failure with hypoxia Secondary to acute COPD exacerbation status post BiPAP use in the ICU Currently stable on baseline 4 L of supplemental oxygen Wean Solu-Medrol to oral prednisone starting tomorrow Continue breathing treatments Uncontrolled hypertension Status post nitroprusside drip in the ICU Blood pressure still uncontrolled but improved after medication administration this morning Continue Aldactone, losartan, carvedilol, amlodipine can resume home imdur if bp remains high HFrEF no acute exacerbation continue home dose of lasix add aldactione Mood Continue home medications non insulin dependent type 2 DM SSI, POCs, ADA diet kellie noncompliant with cpap DVT prophylaxis-heparin Code status-full code Attending-Dr. Weber Requires ongoing inpatient stay for management of uncontrolled hypertension, close monitoring of blood pressure respiratory status Quality Stroke Does the patient have a stroke diagnosis?: No VTE Prior VTE?: No VTE Risk Level:: Medical - moderate - high VTE Device Contraindication: N/A - Device Ordered VTE Drug Contraindication: N/A - Med Ordered
[2023-05-02 20:24] LABS: Glucose, Whole Blood 202 mg/dL (60-115)
[2023-05-03] VITALS (7 sets, daily range): BP systolic 120–180; BP diastolic 85–100; PULSE 74–94; RESP 18–90; TEMP 35.9–36.6; O2SAT 96–99
[2023-05-03] MEDS: Heparin Sodium,Porcine 5,000 UNIT/ML VIAL 5000 UNIT SUBCUT ×2 (01:41→08:41)
[2023-05-03 02:07] LABS: Glucose, Whole Blood 56 mg/dL (60-115)
[2023-05-03 02:23] LABS: Glucose, Whole Blood 73 mg/dL (60-115)
[2023-05-03 02:39] LABS: Glucose, Whole Blood 100 mg/dL (60-115)
[2023-05-03 02:56] LABS: Glucose, Whole Blood 134 mg/dL (60-115)
--- NOTE | 2023-05-03 03:13 | PC.NURSE ---
when assumed of care of pt at 18:45 was alert and oriented x4 and talkative. at 01:03 bp was 180/92 manually. pt on baseline 4L NC and o2 sustaining in the 90s. pt drowsy and hot and diaphoretic at midnight. poc taken 02:20 and was 56. pt given 2 containers of juice, blood sugar rechecked every 15 minutes. poc were 73, 100 and 134. pt still remains somnolent. Dr. Peacock notified at 03:07 and no new orders placed. will continue with plan of care
[2023-05-03 08:13] LABS: Glucose, Whole Blood 120 mg/dL (60-115)
[2023-05-03] MEDS: carvediloL 25 MG TABLET PO (08:40)
[2023-05-03] MEDS: Spironolactone 25 MG TABLET PO (08:40)
[2023-05-03] MEDS: QUEtiapine Fumarate 50 MG TABLET PO (08:40)
[2023-05-03] MEDS: Furosemide 40 MG TABLET PO (08:41)
[2023-05-03] MEDS: predniSONE 20 MG TABLET 40 MG PO (08:41)
[2023-05-03] MEDS: Sertraline HCL 100 MG TABLET 200 MG PO (08:41)
[2023-05-03] MEDS: Albuterol/Iprat 2.5/0.5MG 3 ML AMPUL.NEB INHALE ×2 (08:44→16:17)
[2023-05-03 11:12] LABS: Glucose, Whole Blood 213 mg/dL (60-115)
[2023-05-03] MEDS: Insulin Lispro 100 UNIT/ML 3 ML VIAL SUBCUT (11:30)
[2023-05-03] MEDS: Losartan Potassium 50 MG TABLET 100 MG PO (11:41)
--- NOTE | 2023-05-03 12:29 | P.F2F_ITS ---
Service Date Service Date: 05/03/23 Encounter Date of encounter: 05/03/23 Reasons for Services Signs and symptoms assessed: needs residential for multiple medication changes, bp and blood sugar monitoring; education re: DM and CHF Reason for residential: diabetic teaching, medication management and teach disease management MD Overseeing Care: Analisa Chavez Homebound: Leaving the home is medically contraindicated at this time without the asist of a device and/or another person due th the listed conditions above and below. Reason homebound: shortness of breath with minimal effort Certification: Based on the above findings, I certify that this patient is confined to the home and needs intermittent residential care, physical therapy and/or speech therapy, or continues to need occupational therapy. The patient is under my care, and I have initiated the establishment of the plan of care. The patient will be followed by a physician who will periodically review the plan of care. Time Spent With Patient Time: Total time managing care of this patient today ____ minutes.
--- NOTE | 2023-05-03 12:30 | P.DS_ITS ---
DS: Providers Provider Date of Service: 05/03/23 Date of admission: 04/30/23 09:55 Date of discharge: 05/03/23 Primary care physician: Analisa Chavez MD Attending physician on discharge: Hamilton Weber Discharging clinician: Carola Amezquita DS: Diagnosis Discharge Diagnosis (1) Acute hypoxic respiratory failure: Status: Acute (2) Acute exacerbation of chronic obstructive pulmonary disease: Status: Acute (3) Essential hypertension: Status: Acute DS: Summary Hospital Course Hospital Course: From H&P on the day of admission 62-year-old moderately obese hypertensive female with longstanding steroid and oxygen dependent COPD of breath and acute on chronic hypoxemic respiratory failure No fever and no history of sputum production No chest pain and no history of coronary disease Shoes on BiPAP in the emergency room still with significant diaphragmatic effort and but looks like somewhat hyper been E echo as well acting as though it would with a high minute volume requirement probably still has a very small alveolar ventilation CT scan reveals only COPD and the scattered what appears to be interstitial infiltrate could easily be indicative of pulmonary edema Bedside echo did demonstrate mild diffuse hypokinesis consistent with early reduction of systolic reserve and ejection fraction 50% no primary valve or pericardial disease Acute on chronic respiratory failure with hypoxia. Secondary to acute COPD exacerbation and mild CHF exacerbation. was initially treated with BiPAP in the ICU. Was treated with breathing treatments, systemic steroids, able to be weaned down to baseline 4 L of supplemental oxygen. Will be discharged home with prednisone burst, 4 more days of oral prednisone And then she should resume home dose of prednisone Uncontrolled hypertension Status post nitroprusside drip in the ICU Continue Aldactone, losartan, carvedilol. imdur stopped. recommend repeat BMP in one week and outpatient follow up with PCP HFrEF bipap during ICU stay and then continued on home dose of lasix and aldactone added DM patient does not take any medications for diabetes. had one episode of hypoglycemia overnight. blood sugar stable this morning. she states she does not check her sugar at home and her sugar goes up and down. She is adamant about going home today and eats candy all day so isn't worried about low blood sugar patient will be discharged home with [facility] services for close monitoring of blood pressure and blood sugar. Time Attestation Discharge coordination time: Greater than 30 minutes Quality: Safe Use of Opioids Does Pt have an Active Cancer Diagnosis on the Problem List?: No Quality: Stroke Does the patient have a stroke diagnosis?: No Physical Exam 2 Vital Signs: Vital Signs: Last Vital Signs Temp 97.3 F 05/03/23 11:31 Pulse 80 05/03/23 11:31 Resp 22 H 05/03/23 11:31 BP 149/100 H 05/03/23 11:31 Pulse Ox 99 05/03/23 11:31 O2 Del Method Nasal Cannula 05/03/23 11:31 O2 Flow Rate 4 05/03/23 11:31 FiO2 40 05/01/23 02:00 Oxygen Flow Rate 16.9 04/30/23 10:58 BMI result Body Mass Index 29.3 Const: General: cooperative, comfortable, no acute distress, alert and awake Nutritional Appearance: average body habitus Orientation/consciousness: patient oriented x3 Resp: Other: no wheezing, no rales Effort & Inspection: normal respiratory effort, able to speak in complete sentences, no respiratory distress and no use of accessory muscles Cardio: Rate: regular rate GI: Inspection: No distended Palpation (GI): Soft to palpation Neuro: General: patient oriented x3 and moves all extremities Extrem: General: Yes no pedal edema DS: Data Data Completed and Pending Completed studies during hospitalization [Text1]: Procedures Assistance with Respiratory Ventilation, Less than 24 Consecutive Hours, Con tinuous Positive Airway Pressure (04/14/23) Labs on day of discharge: Laboratory Results - last 24 hr 05/02/23 05/02/23 05/03/23 16:33 20:07 02:03 POC Glucose 123 H 202 H 56 L* 05/03/23 05/03/23 05/03/23 02:20 02:35 02:53 POC Glucose 73 100 134 H 05/03/23 05/03/23 07:53 10:55 POC Glucose 120 H 213 H Discharge Plan Discharge Anticipated Discharge Date/Time: 05/03/23 13:40 Patient Disposition: Home Health Service Discharge Diagnosis: acute on chronic respiratory failure COPD exacerbation uncontrolled HTN Referrals: Analisa Carr MD [Primary Care Provider] - 1 Week Discharge Medications: New carvedilol 25 mg Tablet 25 mg PO BID 30 Days Qty: 60 0RF Protocol: Hold for SBP/HR < HOLD for SBP < : 90 HOLD for HR < : 60 losartan 50 mg Tablet 100 mg PO DAILY 30 Days Qty: 60 0RF Protocol: Hold for SBP< HOLD for SBP < : 90 spironolactone 25 mg Tablet 25 mg PO DAILY 30 Days Qty: 30 0RF Protocol: Hold for SBP< HOLD for SBP < : 90 prednisone 20 mg tablet 40 mg PO DAILY 4 Days Qty: 8 0RF Continued trazodone 50 mg tablet 100 mg PO BEDTIME PRN (Reason: Insomnia) folic acid 1 mg Tablet 1 mg PO DAILY Qty: 90 4RF montelukast 10 mg tablet 10 mg PO BEDTIME sertraline 100 mg tablet 200 mg PO DAILY tiotropium bromide [Spiriva with HandiHaler] 18 mcg capsule, w/inhalation device 1 cap inhalation DAILY albuterol sulfate [Ventolin HFA] 90 mcg/actuation HFA aerosol inhaler 2 puff inhalation Q4-6H PRN (Reason: Shortness Of Breath Or Wheezing) quetiapine 50 mg tablet 50 mg PO BID fluticasone furoate-vilanterol 100-25 mcg/dose blister with device 1 inh INHALATION DAILY furosemide [Lasix] 40 mg tablet 40 mg PO DAILY Held prednisone 5 mg tablet 5 mg DAILY Hold Instructions: hold until completing prednisone burst then resume Discontinued carvedilol 12.5 mg tablet 12.5 mg PO BID Qty: 90 1RF isosorbide mononitrate 30 mg tablet extended release 24 hr 30 mg PO DAILY losartan 25 mg tablet 25 mg DAILY Discharge Orders: Discharge Order (Routine); Ordered 05/03/23 Ordered By: Carola Amezquita Activity on Discharge: As tolerated Stand Alone Forms: Patient Portal Discharge page Other Ambulatory Orders: Basic Metabolic Panel (Routine) Timeframe: 1 Week Facility: [facility] [place] - Location: Laboratory Ordered By: Carola Amezquita Care Plan Goals: see below Health Concerns: COPD exacerbation CHF exacerbation uncontrolled HTN Plan of Treatment: complete pulse dose of prednisone (40 mg daily for 4 more days) and then resume chronic home dose (5mg) your dose of coreg, losartan have been increased spironolactone is a new medication recommend repeat labs in one week you will be discharged home with VNA for close blood pressure monitoring call to schedule a follow up appointment with your PCP Assessment: see discharge summary
--- NOTE | 2023-05-03 13:58 | MHC.CM.PN ---
Per PA patient is medically cleared for dc home resume [facility]. [facility] notified of DC via careport. CM also attempted to call [facility] service, but no answer x3. Patient will be transported home via BLS d/t O2 at 4:30pm, weakness. RN and PA aware.
== END 2023-05-03 17:52 | disposition home health service (06) | DRG 133 ==
LOC: HO.ED 04-30 02:58 → HO.EDOVER 04-30 10:03 → HO.ICU 04-30 10:20 → HO.IMC 05-01 12:59
PROVIDERS: Nurse Practitioner Family; Physician Assistant; Admitting Provider Internal Medicine Cardiovascular Disease; Emergency Provider Emergency Medicine; PCP Internal Medicine; Visit Provider Physician Assistant Medical
DX: J96.21 Acute and chronic respiratory failure with hypoxia (principal); I50.23 Acute on chronic systolic (congestive) heart failure; J44.1 Chronic obstructive pulmonary disease with (acute) exacerbation; E66.8 Other obesity; Z68.29 Body mass index [BMI] 29.0-29.9, adult; F33.0 Major depressive disorder, recurrent, mild; I34.0 Nonrheumatic mitral (valve) insufficiency; E11.9 Type 2 diabetes mellitus without complications; I11.0 Hypertensive heart disease with heart failure; E78.5 Hyperlipidemia, unspecified; G47.33 Obstructive sleep apnea (adult) (pediatric); Z99.81 Dependence on supplemental oxygen; Z20.822 Contact with and (suspected) exposure to COVID-19; Z91.199 Patient's noncompliance with other medical treatment and regimen due to unspecified reason; Z79.51 Long term (current) use of inhaled steroids; Z79.899 Other long term (current) drug therapy
CPT/HCPCS: 0241U; 36415; 71045; 71250; 80048; 80076; 82040; 82803; 82947; 83735; 83880; 84100; 84484; 85025; 85610; 93005; 94640; 99285; J1644; J1940; J2920; J2930

== ENCOUNTER → 2023-04-29 18:36 | Outpatient (BNV) | payer OTHER, SELFPAY | PROVIDERS: Admitting Provider Internal Medicine Cardiovascular Disease; Emergency Provider Emergency Medicine; PCP Internal Medicine; Visit Provider Internal Medicine | DX: I49.1 Atrial premature depolarization (principal) | CPT/HCPCS: 93010 ==

== ENCOUNTER → 2023-04-30 09:55 | Outpatient (BNV) | payer OTHER, SELFPAY | PROVIDERS: Admitting Provider Internal Medicine Cardiovascular Disease; Emergency Provider Emergency Medicine; PCP Internal Medicine; Visit Provider Physician Assistant Medical | DX: J96.01 Acute respiratory failure with hypoxia (principal); J44.1 Chronic obstructive pulmonary disease with (acute) exacerbation; I10 Essential (primary) hypertension | CPT/HCPCS: 99233; 99239; 99499; G0180 ==

== ENCOUNTER → 2023-04-30 09:55 | Outpatient (BNV) | payer OTHER, SELFPAY | PROVIDERS: Admitting Provider Internal Medicine Cardiovascular Disease; Emergency Provider Emergency Medicine; PCP Internal Medicine; Visit Provider Internal Medicine Cardiovascular Disease | DX: J96.01 Acute respiratory failure with hypoxia (principal); J44.1 Chronic obstructive pulmonary disease with (acute) exacerbation; I50.23 Acute on chronic systolic (congestive) heart failure; I34.0 Nonrheumatic mitral (valve) insufficiency; R06.02 Shortness of breath; R07.9 Chest pain, unspecified; F33.0 Major depressive disorder, recurrent, mild; Z09 Encounter for follow-up examination after completed treatment for conditions other than malignant neoplasm; M51.36 Other intervertebral disc degeneration, lumbar region; J18.9 Pneumonia, unspecified organism; J44.9 Chronic obstructive pulmonary disease, unspecified; I27.20 Pulmonary hypertension, unspecified | CPT/HCPCS: 99291 ==

== ENCOUNTER 2023-05-14 13:30 | Inpatient (IN) | payer OTHER, SELFPAY ==
[2023-05-14] VITALS (7 sets, daily range): BP systolic 128–156; BP diastolic 67–96; PULSE 88–104; RESP 15–21; TEMP 36.4–36.8; O2SAT 87–95; BMI 29.4
--- NOTE | ~2023-05-14 | XR_ITS ---
EXAMINATION: XR CHEST CLINICAL INFORMATION: Shortness of breath COMPARISON: Radiograph from 05/01/2023 TECHNIQUE: Frontal view of the chest was obtained. FINDINGS: Streaky opacities of the bilateral lung bases may reflect atelectasis versus evolving infectious/inflammatory etiology. No pneumothorax. Trachea is midline. Cardiac mediastinal silhouette is stable. Aorta demonstrates tortuosity. No large pleural effusion. Osseous structures are intact. Soft tissues are unremarkable. XR/XR chest 1V IMPRESSION: Streaky opacities of the bilateral lung bases may reflect atelectasis versus evolving infectious/inflammatory etiology.
--- NOTE | ~2023-05-14 | CT_ITS ---
EXAMINATION: CT CHEST WITHOUT CONTRAST CLINICAL INFORMATION: SOB COMPARISON: Abnormal chest x-ray 05/14/2023 TECHNIQUE: Multidetector volumetric CT imaging of the chest was done. Axial MIP volume rendering provided. Sagittal and coronal reformatted images were obtained. This CT examination was performed using dose optimization techniques as appropriate, variously including the following: *Automated exposure control *Adjustment of mA and/or kV according to patient size (this includes techniques or standardized protocols for targeted exams where dose is matched to indication/reason for exam; i.e. extremities or head) *Use of iterative reconstruction technique DLP: 247 mGy-cm FINDINGS: Limited exam due to patient breathing artifact. SOLAR ENGINEER: Hyperinflated lungs LUNGS: There is diffuse centrilobular emphysematous changes with prominent fine reticular interstitial markings in both lung bases without consolidation. There is a 2 mm nodule left upper lobe axial image 91/6. No additional nodules seen. There is no acute consolidation or mass. MEDIASTINUM: The thyroid lobes are symmetric and normal. The central trachea and the bronchi widely patent. Heart size is enlarged. The great vessels are normal caliber. There is no pericardial effusion.. No abnormal size mediastinal or hilar lymph nodes seen. CORONARY ARTERY CALCIFICATION: Mild coronary artery calcifications are present. PLEURA: There is minimal right posterior basilar pleural thickening. No effusion or calcified pleural plaque seen.. AXILLA: No lymphadenopathy. UPPER ABDOMEN: Visualized liver, spleen, pancreas and bilateral adrenal glands are unremarkable. OSSEOUS STRUCTURES: There is L1 compression deformity. There is diffuse osteopenia.. CT/CT chest wo IV con IMPRESSION: 1. Diffuse centrilobular emphysema with prominent fine reticular interstitial markings in both lung bases. No acute consolidation or mass seen. 2. There is a 2 mm nodule left upper lobe. 3. Mild cardiomegaly with mild coronary artery calcifications. 4. Diffuse osteopenia with L1 compression deformity, likely old. 5. Minimal right posterior basilar pleural thickening. No pleural effusion or calcified pleural plaque seen. Fleischner guidelines were followed.
--- NOTE | ~2023-05-14 | CT_ITS ---
EXAMINATION: CT HEAD WITHOUT CONTRAST CLINICAL INFORMATION: Decreased level of consciousness. COMPARISON: CT head from 12/27/2019. TECHNIQUE: Contiguous axial imaging was performed from the skull base to vertex without intravenous administration of contrast. This CT examination was performed using dose optimization techniques as appropriate, variously including the following: *Automated exposure control. *Adjustment of mA and/or kV according to patient size (this includes techniques or standardized protocols for targeted exams where dose is matched to indication/reason for exam; i.e. extremities or head). *Use of iterative reconstruction technique. DLP: 680 mGy-cm FINDINGS: Moderately motion degraded exam. There is no evidence of acute intracranial hemorrhage or edematous territorial infarction. [place]-white matter differentiation is preserved. Confluent hypoattenuation in the periventricular and deep white matter. Proportional prominence of the ventricles and sulcal spaces without evidence of obstructive hydrocephalus. Moderate expansion of the sella turcica with flattening of the pituitary gland. Normal positioning of the cerebellar tonsils. No abnormal mass effect or midline shift. No extra-axial fluid collections. No acute soft tissue or osseous abnormalities. The mastoid air cells and visualized paranasal sinuses are clear. CT/CT head/brain wo IV con IMPRESSION: 1. No evidence of acute intracranial hemorrhage or edematous territorial infarction. 2. Chronic extensive white matter disease. Moderate generalized cerebral volume loss.
--- NOTE | ~2023-05-14 | XR_ITS ---
EXAMINATION: XR CHEST CLINICAL INFORMATION: Tachypnea, worsening O2 sat. COMPARISON: 05/14/2023 TECHNIQUE: Frontal view of the chest was obtained. FINDINGS: Cardiac silhouette is enlarged. Mediastinal contour is normal. Prominence of the pulmonary vasculature may relate to pulmonary vascular hypertension. Lungs are hyperexpanded with architectural distortion in the upper lobes, consistent with pulmonary emphysema. Blunting of the left lateral cortex sulcus is likely due to pleural parenchymal scarring. Trace effusion is possible. No right-sided effusion. No focal airspace consolidation. EKG leads overlie the chest. No acute osseous findings. XR/XR chest 1V IMPRESSION: 1. Pulmonary emphysema. No acute pulmonary findings. 2. Cardiomegaly. 3. Blunting of the left lateral cortex sulcus is likely due to pleural parenchymal scarring. Trace pleural effusion is possible.
--- NOTE | 2023-05-14 13:45 | ECG_ITS ---
Test Reason : SOB Blood Pressure : / mmHG Vent. Rate : 095 BPM Atrial Rate : 095 BPM P-R Int : 140 ms QRS Dur : 118 ms QT Int : 380 ms P-R-T Axes : 054 006 -10 degrees QTc Int : 477 ms Sinus rhythm with marked sinus arrhythmia Right bundle branch block Abnormal ECG When compared with ECG of 29-APR-2023 21:21, Premature atrial complexes are no longer Present Referred By: Boyd Cunningham Electronically Signed By:KEVIN ODELL MD
--- NOTE | 2023-05-14 13:46 | ED.GENADULT ---
HPI - General Adult General Chief complaint: Dyspnea Stated complaint: SOB Time Seen by Provider: 05/14/23 13:45 Source: patient and EMS Mode of arrival: EMS Limitations: other (Poor Historian) History of Present Illness HPI narrative: This is a 61 with history of copd ( on 2 L home O2)hypertension, obstructive sleep apnea, pulmonary hypertension, CHF with reduced ejection fraction, diabetes, obesity, hyperlipidemia, anxiety, depression, tobacco abuse, supraventricular tachycardia, hypertension with frequent admissions for acute hypoxic respiratory failure presenting to the emergency department today with complaints of shortness of breath that has been ongoing for the past three days worsening over the past few hours. Denies sick contacts. Denies cough, chest pain, fevers, chills, nausea, vomiting, abdominal pain, headache, vision changes, dizziness and weakness. Is taking all medications as rx. Related Data Home Medications Medication Instructions Recorded Confirmed trazodone 50 mg tablet 100 mg PO BEDTIME PRN Insomnia 03/08/20 04/30/23 furosemide 40 mg tablet (Lasix) 40 mg PO DAILY 04/03/23 04/30/23 albuterol sulfate 90 mcg/actuation 2 puff inhalation Q4-6H PRN 04/30/23 04/30/23 aerosol inhaler (Ventolin HFA) Shortness Of Breath Or Wheezing fluticasone furoate 100 1 inh inhalation DAILY 04/30/23 04/30/23 mcg-vilanterol 25 mcg/dose inhalation powder montelukast 10 mg tablet 10 mg PO BEDTIME 04/30/23 04/30/23 prednisone 5 mg tablet 5 mg DAILY 04/30/23 04/30/23 quetiapine 50 mg tablet 50 mg PO BID 04/30/23 04/30/23 sertraline 100 mg tablet 200 mg PO DAILY 04/30/23 04/30/23 tiotropium bromide 18 mcg capsule 1 cap inhalation DAILY 04/30/23 04/30/23 with inhalation device (Spiriva with HandiHaler) Previous Rx's Medication Instructions Recorded folic acid 1 mg tablet 1 mg PO DAILY #90 tabs 09/04/22 carvedilol 25 mg tablet 25 mg PO BID 30 days #60 tabs 05/03/23 losartan 50 mg tablet 100 mg PO DAILY 30 days #60 tabs 05/03/23 prednisone 20 mg tablet 40 mg (2 x 20 mg) PO DAILY 4 days 05/03/23 #8 tabs spironolactone 25 mg tablet 25 mg PO DAILY 30 days #30 tabs 05/03/23 Allergies Allergy/AdvReac Type Severity Reaction Status Date / Time nicotine [Nicotine] Allergy Mild ITCHING Verified 04/14/23 10:20 WITH THE PATCHES topiramate Allergy Mild inadequealte Verified 04/14/23 10:20 response Review of Systems Review of Systems: Constitutional : No Weight loss, No Fever, No Chills, No Fatigue, + Malaise ENT/Mouth : No sore throat, No Rhinorrhea Eyes: No Eye Pain, No Swelling, No Redness Cardiovascular : No Chest Pain, + SOB, No Dyspnea on Exertion, No Orthopnea, No Edema, No Palpitations Respiratory : No Cough, No Sputum, + Wheezing Gastrointestinal : No Nausea, No Vomiting, No Diarrhea, No Constipation, No abdominal Pain, No Hematochezia, No Melena Genitourinary : No Dysuria, No Urinary Frequency, No Hematuria, Musculoskeletal : No joint pain, No Myalgias, No Joint Swelling Skin : No Skin Lesions, No rash Neuro : No Weakness, No Numbness, No Dizziness, No Headache Psych : No Anxiety/Panic, No Depression Heme/Lymph: No Bruising, No Bleeding,No Lymphadenopathy Endocrine : No Polyuria, No Polydipsia All other systems reviewed and are negative Yes all other systems are reviewed and are negative [facility] Past Medical History Attestation statement: The following information was validated with the patient. Source: old records reviewed and nursing notes reviewed Onset Date is defined in the Problem List Problems that require an onset date and time if occurred within 24 hrs of arrival to the ED Aortic Dissection and Rupture; Neurologic impairment; Cardiopulmonary Arrest; Endotracheal Intubation; Insertion or Replacement of Mechanical Circulatory Assist Device Medical History Mitral regurgitation Chest pain Mild recurrent major depression Hospital discharge follow-up Lumbar degenerative disc disease Right lower lobe pneumonitis Congestive heart failure Acute and chronic respiratory failure with hypoxia Respiratory failure with hypoxia and hypercapnia Atelectasis, right Hypertensive emergency Pulmonary hypertension Osteoporosis Essential hypertension Supraventricular tachycardia Nonischemic cardiomyopathy Non-rheumatic mitral regurgitation Tobacco abuse Depression Anxiety Chronic respiratory failure Severe chronic obstructive pulmonary disease HFrEF (heart failure with reduced ejection fraction) KELLIE (obstructive sleep apnea) Diabetes HLD (hyperlipidemia) HTN (hypertension) Surgical History H/O hysterectomy for benign disease History of total abdominal hysterectomy Bilateral ankle fractures Family History Family History Father No problems noted. 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 home services: Yes (EDG[employer]PER[employer]) Unable to assess alcohol history related to: Unable to respond Alcohol intake: never Patient Tobacco Use Status: Never used Tobacco Tobacco use type: Cigarette Cigarettes Per Day: 4 Years Smoked: 50 +/- e-Cigarette/Vaping Use: Never Used Second Hand Smoke Exposure: No Advance Directives: Yes Advance Directives on File: Yes Advance Directives Date on File: 04/30/20 service: No Current occupational status: disabled Cognitive needs: Yes Hearing needs: No Vision needs: No Physical Exam ED Vital Signs: Vital Signs - 24 hr 05/14/23 13:48 05/14/23 14:32 05/14/23 14:47 Temperature 98.2 F Pulse Rate 104 H 104 H 88 Respiratory Rate 18 21 H 15 Blood Pressure 128/67 Pulse Oximetry 95 Oxygen Delivery Method Simple Mask 05/14/23 19:29 Temperature 97.8 F Pulse Rate 94 Respiratory Rate 21 H Blood Pressure 146/96 H Pulse Oximetry 92 Oxygen Delivery Method Nasal Cannula with ETCO2 BMI result Body Mass Index 29.4 vss Appearance: Alert.? Oriented X3.? + acute distress.? Speaking in short sentences. Head: Normocephalic, atraumatic, no step-offs or deformities Eyes: Pupils equal, round and reactive to light.? ENT: Pharynx normal.? Neck: Normal inspection.? Neck supple.? CVS: Normal heart rate and rhythm.? Pulses normal.? Respiratory: + mild respiratory distress.? Breath sounds diminished b/l w/ mild wheezing on expiration throughout.? Abdomen: Soft and nontender.? Skin: Skin warm and dry.? Normal skin color.? Normal skin turgor.? Extremities: No lower extremity edema.? No calf ttp. 5/5 strength to bilateral upper and lower extremities Back: No midline tenderness, no C-spine tenderness, full range of motion, no CVA tenderness bilaterally Neuro: Oriented X 3.? No motor deficit.? No sensory deficit. CN 2-12 intact Course Reevaluation(s) Reevaluation #1: CBC with a normocytic anemia appears to be around patient's baseline no acute changes. Normal platelet count. Chemistry unremarkable. BNP and troponin pending. Chest x-ray pending. Viral testing pending. Patient doing well with breathing treatments. Will continue to monitor Time: 14:25 Reevaluation #2: Patient's BNP 344, her baseline is around 8-900, no overt signs of acute fluid overload on exam no crackles, lower extremity edema. This is likely viral illness. Troponin slightly elevated likely secondary to type 2 injury or demand ischemia from shortness of breath. Will repeat a 2nd troponin to ensure this is not an NSTEMI. Time: 14:53 Reevaluation #3: Second troponin negative, EKG nonischemic, not meeting delta criteria suspected type 2 cardiac injury secondary to acute hypoxia. Patient now 92% at rest still w/ labored breathing. Now will wait for ambulatory O2 reading' At rest now 87% on 3 L Still havent gotten an ambulatory O2 Time: 20:12 Medications Administered Discontinued Medications Generic Name Dose Route Start Last Admin Trade Name Norma PRN Reason Stop Dose Admin Albuterol Sulfate 5 mg/ 7.5 mg 05/14/23 14:41 05/14/23 14:46 Albuterol Sulfate 2.5 mg INHALE 05/14/23 14:42 7.5 mg ONCE ONE Administration Albuterol Sulfate 7.5 mg/ 0 mg 05/14/23 14:11 05/14/23 14:17 Albuterol/Ipratropium 3 ml INHALE 05/14/23 14:12 10 each ONCE ONE Administration Furosemide 40 mg 05/14/23 14:34 05/14/23 14:50 Furosemide 40 Mg/4 Ml Vial IVPUSH 05/14/23 14:35 40 mg ONCE ONE Administration Protocol Methylprednisolone Sodium Succinate 125 mg 05/14/23 13:51 05/14/23 14:16 Methylprednisolone Sod Succ 125 Mg/2 Ml Vial IVPUSH 05/14/23 13:52 125 mg ONCE ONE Administration Medical Decision Making Medical Decision Making [facility] Narrative: 1350 62-year-old female well known to this facility presents with worsening shortness breath over the past days ( 3 days) Patient has diminished breath sounds bilaterally with very mild wheezing throughout, patient is speaking in short sentences and appears to be in acute distress with labored breathing. Appears to be in acute respiratory distress. History and physical exam concerning for acute exacerbation of a chronic lung condition versus asthma versus acute hypoxic respiratory failure versus bronchitis versus flu versus COVID vs other viral illness. Unlikely pneumonia, PE, acute COPD exacerbation, ACS. Plan labs, imaging, EKG. Patient a tough stick Differential Diagnosis Differential Diagnoses: The differential diagnosis associated with the presentation includes History and physical exam concerning for acute exacerbation of a chronic lung condition versus asthma versus acute hypoxic respiratory failure versus bronchitis versus flu versus COVID vs other viral illness. . Unlikely pneumonia, PE, acute COPD exacerbation, ACS. Admission/Observation Consideration of admission/observation: Escalation of care including admission/observation considered Likely Lab Data [facility] Lab Attestation statement: I reviewed the patient's lab results. 05/14/23 14:04 05/14/23 14:04 Labs: Lab Results 05/14/23 05/14/23 05/14/23 Range/Units 14:04 14:36 17:07 WBC 7.9 (4.8-10.8) X10*3/uL RBC 3.89 L (4.20-5.50) X10*6/uL Hgb 10.8 L (12.0-16.0) g/dl Hct 34.0 L (37.0-47.0) % MCV 87.4 (80.0-98.0) fL MCH 27.8 (27.0-33.0) pg MCHC 31.8 (31.0-35.0) g/dl RDW 15.2 (11.0-16.0) % Plt Count 165 (160-400) X10*3/uL MPV 11.3 (9.4-12.3) fL Immature Gran % (Auto) 0.4 (0.0-0.4) % Neut % (Auto) 73.9 H (45-73) % Lymph % (Auto) 17.6 L (20-40) % [place] % (Auto) 6.5 (2-11) % Eos % (Auto) 1.3 (0-4) % Baso % (Auto) 0.3 (0-2) % Lymph # (Auto) 1.4 (1.2-4.9) X10*3/uL [place] # (Auto) 0.5 (0.1-1.2) X10*3/uL Eos # (Auto) 0.1 (0.0-0.4) X10*3/uL Baso # (Auto) 0.0 (0.0-0.2) X10*3/uL Abs Immat Gran (auto) 0.03 (0.00-0.03) X10*3/uL Absolute Neuts (auto) 5.8 (2.0-8.3) x10*3/uL Absolute Nucleated RBC 0.000 (0.0-0.012) X10*3/uL Nucleated RBC % (auto) 0.0 (0.0-0.2) /100WBC PT 11.3 (11.1-13.3) SEC INR 0.9 (0.9-1.1) Sodium 140 (135-145) mmol/L Potassium 4.6 (3.3-5.1) mmol/L Chloride 108 (96-108) mmol/L Carbon Dioxide 25 (22-29) mmol/L Anion Gap 12 (12-20) BUN 11 (9-16) mg/dL Creatinine 0.95 (0.5-1.4) mg/dL Estim Creat Clear Calc 51.3 Estimated GFR 60 Random Glucose 133 H (60-115) mg/dL Calcium 8.6 D (8.4-10.2) mg/dL Magnesium 2.2 (1.6-2.6) mg/dL Total Bilirubin 0.3 (0.0-1.0) mg/dL AST 22 (5-31) U/L ALT 10 (0-31) U/L Alkaline Phosphatase 89 (39-117) U/L Troponin I High Sens 12.5 D 13.1 (<3.5-17.0) ng/L B-Natriuretic Peptide 344 H (<100) pg/mL Total Protein 6.9 (6.5-8.0) g/dL Albumin 3.3 L (3.5-5.0) g/dL Urine Color Urine Appearance Urine pH (5.0-9.0) Ur Specific [place] (1.005-1.025) Urine Protein (Neg-Trace) mg/dL Urine Glucose (UA) (Negative) mg/dL Urine Ketones (Negative) mg/dL Urine Blood (Negative) Urine Nitrite (Negative) Ur Leukocyte Esterase (Negative) COVID-19 (ANEL) Negative (Negative) COVID-19 Clin Com See Note Influenza Type A (ELGIN) Negative (Negative) Influenza Type B (ELGIN) Negative (Negative) Influenza A & B Note See Note 05/14/23 Range/Units 19:34 WBC (4.8-10.8) X10*3/uL RBC (4.20-5.50) X10*6/uL Hgb (12.0-16.0) g/dl Hct (37.0-47.0) % MCV (80.0-98.0) fL MCH (27.0-33.0) pg MCHC (31.0-35.0) g/dl RDW (11.0-16.0) % Plt Count (160-400) X10*3/uL MPV (9.4-12.3) fL Immature Gran % (Auto) (0.0-0.4) % Neut % (Auto) (45-73) % Lymph % (Auto) (20-40) % [place] % (Auto) (2-11) % Eos % (Auto) (0-4) % Baso % (Auto) (0-2) % Lymph # (Auto) (1.2-4.9) X10*3/uL [place] # (Auto) (0.1-1.2) X10*3/uL Eos # (Auto) (0.0-0.4) X10*3/uL Baso # (Auto) (0.0-0.2) X10*3/uL Abs Immat Gran (auto) (0.00-0.03) X10*3/uL Absolute Neuts (auto) (2.0-8.3) x10*3/uL Absolute Nucleated RBC (0.0-0.012) X10*3/uL Nucleated RBC % (auto) (0.0-0.2) /100WBC PT (11.1-13.3) SEC INR (0.9-1.1) Sodium (135-145) mmol/L Potassium (3.3-5.1) mmol/L Chloride (96-108) mmol/L Carbon Dioxide (22-29) mmol/L Anion Gap (12-20) BUN (9-16) mg/dL Creatinine (0.5-1.4) mg/dL Estim Creat Clear Calc Estimated GFR Random Glucose (60-115) mg/dL Calcium (8.4-10.2) mg/dL Magnesium (1.6-2.6) mg/dL Total Bilirubin (0.0-1.0) mg/dL AST (5-31) U/L ALT (0-31) U/L Alkaline Phosphatase (39-117) U/L Troponin I High Sens (<3.5-17.0) ng/L B-Natriuretic Peptide (<100) pg/mL Total Protein (6.5-8.0) g/dL Albumin (3.5-5.0) g/dL Urine Color Yellow Urine Appearance Clear Urine pH 7.0 (5.0-9.0) Ur Specific [place] <= 1.005 (1.005-1.025) Urine Protein Negative (Neg-Trace) mg/dL Urine Glucose (UA) Negative (Negative) mg/dL Urine Ketones Negative (Negative) mg/dL Urine Blood Negative (Negative) Urine Nitrite Negative (Negative) Ur Leukocyte Esterase Negative (Negative) COVID-19 (ANEL) (Negative) COVID-19 Clin Com Influenza Type A (ELGIN) (Negative) Influenza Type B (ELGIN) (Negative) Influenza A & B Note Independent Interpretation I performed an independent interpretation of an: EKG, Plain X-Ray ( XR/XR chest 1V IMPRESSION: Streaky opacities of the bilateral lung bases may reflect atelectasis versus evolving infectious/inflammatory etiology. ) and CT Scan ( CT/CT chest wo IV con IMPRESSION: 1. Diffuse centrilobular emphysema with prominent fine reticular interstitial markings in both lung bases. No acute consolidation or mass seen. 2. There is a 2 mm nodule left upper lobe. 3. Mild cardiomegaly with mild coronary artery calcifications. 4. Diffuse) Radiology Impression Discussion of test interpretation with radiology: I have reviewed the radiologist's reading. External Record Review External record reviewed: Inpatient record, Office record, Outpatient record, Prior outpatient labs, Prior outpatient radiology, Primary care record and Outside ED record Critical Care Time Critical Care Time Critical Care Time: Yes Total Critical Care Time: 45 Attestation: I attest to this time spent taking care of the patient, obtaining history, physical, reviewing labs, imaging, speaking to my attending, speaking to specialist. Discharge Plan Discharge Clinical Impression: Acute hypoxic respiratory failure, Asthma with exacerbation Patient Disposition: Admitted As Inpatient Prescriptions: No Action trazodone 50 mg tablet 100 mg PO BEDTIME PRN (Reason: Insomnia) folic acid 1 mg Tablet 1 mg PO DAILY Qty: 90 4RF montelukast 10 mg tablet 10 mg PO BEDTIME prednisone 5 mg tablet 5 mg DAILY Hold Instructions: hold until completing prednisone burst then resume sertraline 100 mg tablet 200 mg PO DAILY tiotropium bromide [Spiriva with HandiHaler] 18 mcg capsule, w/inhalation device 1 cap inhalation DAILY albuterol sulfate [Ventolin HFA] 90 mcg/actuation HFA aerosol inhaler 2 puff inhalation Q4-6H PRN (Reason: Shortness Of Breath Or Wheezing) quetiapine 50 mg tablet 50 mg PO BID fluticasone furoate-vilanterol 100-25 mcg/dose blister with device 1 inh INHALATION DAILY carvedilol 25 mg Tablet 25 mg PO BID 30 Days Qty: 60 0RF Protocol: Hold for SBP/HR < HOLD for SBP < : 90 HOLD for HR < : 60 losartan 50 mg Tablet 100 mg PO DAILY 30 Days Qty: 60 0RF Protocol: Hold for SBP< HOLD for SBP < : 90 spironolactone 25 mg Tablet 25 mg PO DAILY 30 Days Qty: 30 0RF Protocol: Hold for SBP< HOLD for SBP < : 90 prednisone 20 mg tablet 40 mg PO DAILY 4 Days Qty: 8 0RF furosemide [Lasix] 40 mg tablet 40 mg PO DAILY
--- NOTE | 2023-05-14 14:06 | PC.NURSE ---
Able to obtain labs but not IV access. Xray at bedside. Will reattempt after Xray.
[2023-05-14 14:11] LABS: MANUAL DIFF FLAG NO
[2023-05-14 14:13] LABS: Basophils Percent Auto 0.3 % (0-2); Eosinophils Absolute Auto 0.1 X10*3/uL (0.0-0.4); Eosinophils Percent Auto 1.3 % (0-4); Hemoglobin 10.8 g/dl (12.0-16.0); Imm Gran Abs Auto 0.03 X10*3/uL (0.00-0.03); Imm Gran Pct Auto 0.4 % (0.0-0.4); Lymphocytes Absolute Auto 1.4 X10*3/uL (1.2-4.9); Lymphocytes Percent Auto 17.6 % (20-40); Mean Corpuscular HGB Conc 31.8 g/dl (31.0-35.0); Mean Corpuscular Hemoglobin 27.8 pg (27.0-33.0); Mean Corpuscular Volume 87.4 fL (80.0-98.0); Mean Platelet Volume 11.3 fL (9.4-12.3); Monocytes Absolute Auto 0.5 X10*3/uL (0.1-1.2); Monocytes Percent Auto 6.5 % (2-11); Neutrophils Absolute Auto 5.8 x10*3/uL (2.0-8.3); Neutrophils Percent Auto 73.9 % (45-73); Platelet Count 165 X10*3/uL (160-400); Red Blood Count 3.89 X10*6/uL (4.20-5.50); Red Cell Distribution Width 15.2 % (11.0-16.0); White Blood Count 7.9 X10*3/uL (4.8-10.8)
[2023-05-14] MEDS: methylPREDNISolone Sod Succ 125 MG/2 ML VIAL IVPUSH (14:16)
[2023-05-14 14:17] LABS: INTERNATIONAL NORM RATIO 0.9 (0.9-1.1); Prothrombin Time 11.3 SEC (11.1-13.3)
[2023-05-14] MEDS: Albuterol Sulfate 7.5 MG, Albuterol/Iprat 2.5/0.5MG 3 ML 3 ML INHALE (14:17)
[2023-05-14 14:29] LABS: Alanine Aminotransferase 10 U/L (0-31); Albumin Level 3.3 g/dL (3.5-5.0); Alkaline Phosphatase 89 U/L (39-117); Anion Gap 12 (12-20); Aspartate Amino Transferase 22 U/L (5-31); Bilirubin Total 0.3 mg/dL (0.0-1.0); Blood Urea Nitrogen 11 mg/dL (9-16); Calcium 8.6 mg/dL (8.4-10.2); Carbon Dioxide 25 mmol/L (22-29); Chloride 108 mmol/L (96-108); Creatinine Clr Calc Pharmacy 51.3; Estimated Glomerular Filt Rate 60; Glucose Random 133 mg/dL (60-115); Magnesium 2.2 mg/dL (1.6-2.6); Potassium 4.6 mmol/L (3.3-5.1); Sodium 140 mmol/L (135-145); Total Protein 6.9 g/dL (6.5-8.0)
[2023-05-14 14:32] LABS: B Type Natriuretic Peptide 344 pg/mL (<100)
[2023-05-14 14:33] LABS: Troponin-I High Sensitivity 12.5 ng/L (<3.5-17.0)
[2023-05-14] MEDS: Albuterol Sulfate 5 MG, Albuterol Sulfate (0.083%) 2.5 MG 7.5 MG INHALE (14:46)
[2023-05-14] MEDS: Furosemide 40 MG/4 ML VIAL IVPUSH (14:50)
[2023-05-14 15:14] LABS: IDNOW Serial# 58CA691E; Influenza A Negative (Negative); Influenza B2 Negative (Negative)
[2023-05-14 15:17] LABS: COVID-19 Test Negative (Negative); IDNOW Serial# 08D9AD1C
--- NOTE | 2023-05-14 17:11 | PC.NURSE ---
Returned from CT Scan, awaiting results. Pt assisted by this RN & [facility] PCT to use bedside commode. Labs drawn and sent for analysis. Awaiting results. Warm compress placed on hand to assist with continuous oximeter readings. Calm & cooperative. Oxygen flowing via nasal cannula.
[2023-05-14 17:31] LABS: Troponin-I High Sensitivity 13.1 ng/L (<3.5-17.0)
[2023-05-14 19:46] LABS: Appearance Urine Clear; Color Urine Yellow; Glucose Urine UA Negative (Negative); Leukocyte Esterase Urine Negative (Negative); Nitrite Urine Negative (Negative); Specific Gravity - Urine <= 1.005 (1.005-1.025); Urine Blood Negative (Negative); Urine Ketones Negative (Negative); Urine Protein Negative (Neg-Trace)
--- NOTE | 2023-05-14 20:29 | PHA.MEDREC ---
Pharmacy Consult ? Medication Reconciliation Pharmacy has completed the medication reconciliation. Patient recently discharge, used discharge summary for med rec. Star GomezD
[2023-05-15] VITALS (12 sets, daily range): BP systolic 131–154; BP diastolic 78–97; PULSE 81–93; RESP 12–19; TEMP 36–36.7; O2SAT 85–99
[2023-05-15 00:11] LABS: Glucose, Whole Blood 227 mg/dL (60-115)
--- NOTE | 2023-05-15 00:41 | P.HPHOSP_ITS ---
History of Present Illness Date of Service: 05/14/23 Attending physician on admission: Brenda Romero Chief Complaint: Shortness of breath. Paola Adhikari is a 62 years old woman with a past medical history significant for COPD on home oxygen 2-3 liters/minute via nasal cannula (on prednisone daily), systolic congestive heart failure (EF 30-35%), pulmonary hypertension, anxiety, depression, essential hypertension and KELLIE presents to the emergency department complaining of worsening shortness of breath over the last few days. She is ongoing tobacco smoker. She denied any headache, palpitations, dizziness or chest pain. She does complain of mildly productive cough. There is no fever or shortness reported. She denied any acute gastrointestinal or genitourinary symptoms. She denied edema to the lower extremities. Patient denied illicit drug use or alcohol abuse. She has had multiple hospitalizations due to respiratory failure and COPD exacerbation. Last hospitalization was about 2 weeks ago. In the ED, was found to have stable vital signs except for low oxygen saturation 87%. She is currently requiring 3 liters/minute supplemental oxygen. Blood workup is remarkable for elevated BNP. Viral testing is negative for COVID-19 and influenza. She underwent a chest CT scan showed finding consistent with centrilobular emphysema, mild cardiomegaly with mild coronary artery calcifications, likely old L1 compression fracture, right posterior bibasilar pleural thickening w/o pleural effusions. ED tx: Solu-Medrol 125 mg IV x1, furosemide 40 mg IV x1, albuterol nebs X2. There are no significant electrolyte imbalances. Renal function is normal. Review of Systems 2 Review of Systems: All 12 systems were reviewed and normal except as noted in HPI. [facility] Medical History Mitral regurgitation Chest pain Mild recurrent major depression Hospital discharge follow-up Lumbar degenerative disc disease Right lower lobe pneumonitis Congestive heart failure Acute and chronic respiratory failure with hypoxia Respiratory failure with hypoxia and hypercapnia Atelectasis, right Hypertensive emergency Pulmonary hypertension Osteoporosis Essential hypertension Supraventricular tachycardia Nonischemic cardiomyopathy Non-rheumatic mitral regurgitation Tobacco abuse Depression Anxiety Chronic respiratory failure Severe chronic obstructive pulmonary disease HFrEF (heart failure with reduced ejection fraction) KELLIE (obstructive sleep apnea) Diabetes HLD (hyperlipidemia) HTN (hypertension) Family History Father No problems noted. Mother Liver cancer Hypertension Surgical History H/O hysterectomy for benign disease History of total abdominal hysterectomy Bilateral ankle fractures Social History Household Members: None Household Members Other:: 1 Housing: Apartment Do you presently have visiting nurse or other home services: No Unable to assess alcohol history related to: Unable to respond Alcohol intake: never Patient Tobacco Use Status: Former Tobacco user Tobacco use type: Cigarette Cigarettes Per Day: 4 Years Smoked: 50 +/- e-Cigarette/Vaping Use: Never Used Second Hand Smoke Exposure: No Advance Directives Date on File: 04/30/20 service: No Current occupational status: disabled Cognitive needs: Yes Hearing needs: No Vision needs: No Meds Allergies Allergy/AdvReac Type Severity Reaction Status Date / Time nicotine [Nicotine] Allergy Mild ITCHING Verified 04/14/23 10:20 WITH THE PATCHES topiramate Allergy Mild inadequealte Verified 04/14/23 10:20 response Active Medications: Current Medications Acetaminophen (Acetaminophen 325 Mg Tablet) 975 mg PO Q6H PRN PRN Reason: Pain, Mild (Pain Scale 1-3) Albuterol/Ipratropium (Albuterol/Iprat 2.5/0.5mg 3 Ml Ampul.Neb) 3 ml INHALE RQ4H WHILE AWAKE [facility] Dextrose (Dextrose 50 % 25 Gm/50 Ml Syringe) 25 gm IVPUSH Q15M PRN; Protocol PRN Reason: per Hypoglycemia Standing Ord. Glucose (Glucose Gel 15 Gm Gel..Gram.) 15 gm PO Q15M PRN; Protocol PRN Reason: per Hypoglycemia Standing Ord. Heparin Sodium (Porcine) (Heparin Sodium,Porcine 5,000 Unit/Ml Vial) 5,000 unit SUBCUT Q8H [facility] Insulin Human Lispro (Insulin Lispro 100 Unit/Ml 3 Ml Vial) 0 unit SUBCUT QIDACHS [facility]; Protocol Methylprednisolone Sodium Succinate (Methylprednisolone Sod Succ 40 Mg/Ml Vial) 40 mg IVPUSH Q12H [facility] Sodium Chloride (0.9 % Sodium Chloride Flush 3 Ml Syringe) 3 ml IVFLUSH QSHIFT [facility] Last Admin: 05/15/23 00:16 Dose: Not Given Home Medications Medication Instructions Recorded Confirmed Last Taken Type trazodone 50 mg tablet 100 mg PO BEDTIME PRN Insomnia 03/08/20 05/14/23 10/18/22 History furosemide 40 mg tablet (Lasix) 40 mg PO DAILY 04/03/23 05/14/23 Unknown History albuterol sulfate 90 mcg/actuation 2 puff inhalation Q4-6H PRN 04/30/23 05/14/23 Unknown History aerosol inhaler (Ventolin HFA) Shortness Of Breath Or Wheezing fluticasone furoate 100 1 inh inhalation DAILY 04/30/23 05/14/23 Unknown History mcg-vilanterol 25 mcg/dose inhalation powder montelukast 10 mg tablet 10 mg PO BEDTIME 04/30/23 05/14/23 Unknown History prednisone 5 mg tablet 5 mg DAILY 04/30/23 05/14/23 Unknown History quetiapine 50 mg tablet 50 mg PO BID 04/30/23 05/14/23 Unknown History sertraline 100 mg tablet 200 mg PO DAILY 04/30/23 05/14/23 Unknown History tiotropium bromide 18 mcg capsule 1 cap inhalation DAILY 04/30/23 05/14/23 Unknown History with inhalation device (Spiriva with HandiHaler) Physical Exam 2 Vital Signs and Narrative: Vital Signs: Last Vital Signs Temp 97.5 F 05/14/23 23:43 Pulse 86 05/15/23 00:00 Resp 12 05/15/23 00:00 BP 156/92 H 05/14/23 23:43 Pulse Ox 90 L 05/14/23 22:10 O2 Del Method Nasal Cannula 05/14/23 23:43 O2 Flow Rate 4 05/14/23 23:43 BMI result Body Mass Index 29.4 Constitutional - Awake and Alert, No apparent distress. Acutely ill. Eyes - PERRLA, EOMI Cardiovascular - S1S2, RRR, No edema Respiratory - Poor respiratory effort, tachypnea. Decreased breath sounds. Occasional inspiratory wheezing. No respiratory distress. No crackles. Gastrointestinal - NT / ND; +BS; No rebound or guarding Extremities - No calf tenderness bilaterally, no swelling Musculoskeletal - Normal inspection, normal ROM Skin - Warm/Dry Neurological - Alert & oriented x3. Psychological - Appropriate affect Results Labs 05/14/23 14:04 05/14/23 14:04 Labs: Laboratory Results - last 24 hr 05/14/23 05/14/23 05/14/23 14:04 14:36 19:34 MCV 87.4 MCH 27.8 MCHC 31.8 RDW 15.2 Plt Count 165 MPV 11.3 Immature Gran % (Auto) 0.4 Neut % (Auto) 73.9 H Lymph % (Auto) 17.6 L [place] % (Auto) 6.5 Eos % (Auto) 1.3 Baso % (Auto) 0.3 Lymph # (Auto) 1.4 [place] # (Auto) 0.5 Eos # (Auto) 0.1 Baso # (Auto) 0.0 Abs Immat Gran (auto) 0.03 Absolute Neuts (auto) 5.8 Absolute Nucleated RBC 0.000 Nucleated RBC % (auto) 0.0 PT 11.3 INR 0.9 Anion Gap 12 Estim Creat Clear Calc 51.3 Estimated GFR 60 POC Glucose Random Glucose 133 H Calcium 8.6 D Magnesium 2.2 Total Bilirubin 0.3 AST 22 ALT 10 Alkaline Phosphatase 89 B-Natriuretic Peptide 344 H Total Protein 6.9 Albumin 3.3 L Urine Color Yellow Urine Appearance Clear Urine pH 7.0 Ur Specific [place] <= 1.005 Urine Protein Negative Urine Glucose (UA) Negative Urine Ketones Negative Urine Blood Negative Urine Nitrite Negative Ur Leukocyte Esterase Negative COVID-19 (ANEL) Negative COVID-19 Clin Com See Note Influenza Type A (ELGIN) Negative Influenza Type B (ELGIN) Negative Influenza A & B Note See Note 05/15/23 00:06 MCV MCH MCHC RDW Plt Count MPV Immature Gran % (Auto) Neut % (Auto) Lymph % (Auto) [place] % (Auto) Eos % (Auto) Baso % (Auto) Lymph # (Auto) [place] # (Auto) Eos # (Auto) Baso # (Auto) Abs Immat Gran (auto) Absolute Neuts (auto) Absolute Nucleated RBC Nucleated RBC % (auto) PT INR Anion Gap Estim Creat Clear Calc Estimated GFR POC Glucose 227 H Random Glucose Calcium Magnesium Total Bilirubin AST ALT Alkaline Phosphatase B-Natriuretic Peptide Total Protein Albumin Urine Color Urine Appearance Urine pH Ur Specific [place] Urine Protein Urine Glucose (UA) Urine Ketones Urine Blood Urine Nitrite Ur Leukocyte Esterase COVID-19 (ANEL) COVID-19 Clin Com Influenza Type A (ELGIN) Influenza Type B (ELGIN) Influenza A & B Note Imaging Radiologist's Impressions: Impressions Chest X-Ray 05/14/23 14:14 IMPRESSION: Streaky opacities of the bilateral lung bases may reflect atelectasis versus evolving infectious/inflammatory etiology. Chest CT 05/14/23 17:03 IMPRESSION: 1. Diffuse centrilobular emphysema with prominent fine reticular interstitial markings in both lung bases. No acute consolidation or mass seen. 2. There is a 2 mm nodule left upper lobe. 3. Mild cardiomegaly with mild coronary artery calcifications. 4. Diffuse osteopenia with L1 compression deformity, likely old. 5. Minimal right posterior basilar pleural thickening. No pleural effusion or calcified pleural plaque seen. Fleischner guidelines were followed. Assessment and Plan (1) Asthma with exacerbation: Qualifiers: Asthma severity: unspecified severity Asthma persistence: unspecified Qualified Code(s): J45.901 - Unspecified asthma with (acute) exacerbation Status: Acute (2) Acute hypoxic respiratory failure: Status: Acute Plan Paola Adhikari is a 62 years old woman admitted with: * Hypoxemic respiratory failure, likely multifactorial: Acute exacerbation of chronic obstructive pulmonary disease associated with acute on chronic systolic congestive heart failure. Admit to hospitalist service p.o. telemetry. Pulse oximetry. Continue supplemental oxygen to keep oxygen saturation above 90%. Continue bronchodilator therapy. Continue IV steroids Lasix. Continue spironolactone and Coreg. Continue montelukast. * Anxiety and depression. Continue sertraline. Seroquel and trazodone on hold to avoid sedation in the setting of respiratory failure. * Type 2 diabetes mellitus. Blood glucose monitoring before meals at bedtime. Blood glucose control with insulin sliding scale. Diabetic diet. Check HgbA1c. * Essential hypertension. Continue Coreg, spironolactone and losartan. * Obstructive sleep apnea. Not tolerating CPAP. * Tobacco dependence. Tobacco cessation education. Nicotine patch as needed. VTE prophylaxis: Heparin subQ Code status: Full Patient would require hospitalization for at least 2 midnight for respiratory failure treatment. She will require supplemental oxygen, close oxygen saturation monitoring, bronchodilator therapy, IV diuretics and steroids. Quality Stroke Does the patient have a stroke diagnosis?: No VTE Prior VTE?: No VTE Risk Level:: Medical - moderate - high VTE Device Contraindication: Treatment Not Indicated VTE Drug Contraindication: N/A - Med Ordered
[2023-05-15] MEDS: Furosemide 100 MG/10 ML VIAL 60 MG IVPUSH (00:58)
[2023-05-15 06:44] LABS: Hematocrit 37.1 % (37.0-47.0); Hemoglobin 11.7 g/dl (12.0-16.0); Mean Corpuscular HGB Conc 31.5 g/dl (31.0-35.0); Mean Corpuscular Hemoglobin 27.1 pg (27.0-33.0); Mean Corpuscular Volume 85.9 fL (80.0-98.0); Platelet Count 158 X10*3/uL (160-400); Red Blood Count 4.32 X10*6/uL (4.20-5.50); White Blood Count 9.2 X10*3/uL (4.8-10.8)
[2023-05-15 06:55] LABS: Alanine Aminotransferase 10 U/L (0-31); Albumin Level 3.9 g/dL (3.5-5.0); Alkaline Phosphatase 103 U/L (39-117); Anion Gap 14 (12-20); Aspartate Amino Transferase 10 U/L (5-31); Bilirubin Total 0.4 mg/dL (0.0-1.0); Blood Urea Nitrogen 18 mg/dL (9-16); Calcium 9.5 mg/dL (8.4-10.2); Carbon Dioxide 27 mmol/L (22-29); Chloride 102 mmol/L (96-108); Creatinine Clr Calc Pharmacy 51.3; Estimated Glomerular Filt Rate 60; Glucose Random 164 mg/dL (60-115); Potassium 4.7 mmol/L (3.3-5.1); Sodium 138 mmol/L (135-145); Total Protein 7.4 g/dL (6.5-8.0)
[2023-05-15 07:02] LABS: Estimated Average Glucose 134 mg/dL; Hemoglobin A1c % 6.3 % (<6.0)
[2023-05-15 07:32] LABS: Glucose, Whole Blood 123 mg/dL (60-115)
[2023-05-15] MEDS: Fluticasone/Vilanterol 100/25 BLST.W.DEV 1 PUFF INHALE (07:56)
[2023-05-15] MEDS: Albuterol/Iprat 2.5/0.5MG 3 ML AMPUL.NEB INHALE ×4 (07:56→20:41)
[2023-05-15] MEDS: methylPREDNISolone Sod Succ 40 MG/ML VIAL IVPUSH ×2 (09:03→20:55)
[2023-05-15] MEDS: Furosemide 100 MG/10 ML VIAL 40 MG IVPUSH (09:03)
[2023-05-15] MEDS: Losartan Potassium 50 MG TABLET 100 MG PO (09:04)
[2023-05-15] MEDS: Sertraline HCL 100 MG TABLET 200 MG PO (09:04)
[2023-05-15] MEDS: carvediloL 25 MG TABLET PO ×2 (09:04→20:55)
[2023-05-15] MEDS: Spironolactone 25 MG TABLET PO (09:04)
[2023-05-15] MEDS: Folic Acid 1 MG TABLET PO (09:04)
--- NOTE | 2023-05-15 10:50 | P.PNIM_ITS ---
Subjective Subjective Date of Service: 05/15/23 Interval History: seen and evaluated this morning Feels better overall still dyspneic with minimal exertion Review of Systems Review of Systems: Yes all other systems are reviewed and are negative Physical Exam 2 Vital Signs: Vital Signs: Last Vital Signs Temp 98.1 F 05/15/23 07:26 Pulse 93 05/15/23 07:59 Resp 18 05/15/23 07:59 BP 154/87 H 05/15/23 07:26 Pulse Ox 96 05/15/23 07:26 O2 Del Method Nasal Cannula 05/15/23 07:26 O2 Flow Rate 5 05/15/23 07:26 BMI result Body Mass Index 29.4 Const: Other: Constitutional : Awake, interactive, not in distress Neck : Normal inspection, Supple Cardiovascular : RRR, no JVP, no lower extremity edema Respiratory : fair bilateral air entry, fine basal crackles, expiratory wheezes Gastrointestinal: soft, lax, Normal bowel sounds, Non tender Skin : Warm, Dry Neurological : Alert & oriented x3, No focal deficit Objective Data Active Medications Acetaminophen (Acetaminophen 325 Mg Tablet) 975 mg PO Q6H PRN PRN Reason: Pain, Mild (Pain Scale 1-3) Albuterol/Ipratropium (Albuterol/Iprat 2.5/0.5mg 3 Ml Ampul.Neb) 3 ml INHALE RQ4H WHILE AWAKE [facility] Last Admin: 05/15/23 07:56 Dose: 3 ml Documented By: MANISH Carvedilol (Carvedilol 25 Mg Tablet) 25 mg PO BID [facility]; Protocol Last Admin: 05/15/23 09:04 Dose: 25 mg Documented By: ALMA Dextrose (Dextrose 50 % 25 Gm/50 Ml Syringe) 25 gm IVPUSH Q15M PRN; Protocol PRN Reason: per Hypoglycemia Standing Ord. Fluticasone/Vilanterol (Fluticasone/Vilanterol 100/25 Blst.W.Dev) 1 puff INHALE DAILY [facility] Last Admin: 05/15/23 07:56 Dose: 1 puff Documented By: MANISH Folic Acid (Folic Acid 1 Mg Tablet) 1 mg PO DAILY [facility] Last Admin: 05/15/23 09:04 Dose: 1 mg Documented By: ALMA Furosemide (Furosemide 100 Mg/10 Ml Vial) 40 mg IVPUSH DAILY [facility]; Protocol Last Admin: 05/15/23 09:03 Dose: 40 mg Documented By: ALMA Glucose (Glucose Gel 15 Gm Gel..Gram.) 15 gm PO Q15M PRN; Protocol PRN Reason: per Hypoglycemia Standing Ord. Heparin Sodium (Porcine) (Heparin Sodium,Porcine 5,000 Unit/Ml Vial) 5,000 unit SUBCUT Q8H [facility] Last Admin: 05/15/23 09:08 Dose: Not Given Documented By: ALMA Non-Admin Reason: Patient Refused Insulin Human Lispro (Insulin Lispro 100 Unit/Ml 3 Ml Vial) 0 unit SUBCUT QIDACHS [facility]; Protocol Last Admin: 05/15/23 07:39 Dose: Not Given Documented By: ALMA Non-Admin Reason: No Insulin Coverage Losartan Potassium (Losartan Potassium 50 Mg Tablet) 100 mg PO DAILY [facility]; Protocol Last Admin: 05/15/23 09:04 Dose: 100 mg Documented By: ALMA Methylprednisolone Sodium Succinate (Methylprednisolone Sod Succ 40 Mg/Ml Vial) 40 mg IVPUSH Q12H [facility] Last Admin: 05/15/23 09:03 Dose: 40 mg Documented By: ALMA Montelukast Sodium (Montelukast Sodium 10 Mg Tablet) 10 mg PO BEDTIME [facility] Sertraline HCl (Sertraline Hcl 100 Mg Tablet) 200 mg PO DAILY [facility] Last Admin: 05/15/23 09:04 Dose: 200 mg Documented By: ALMA Sodium Chloride (0.9 % Sodium Chloride Flush 3 Ml Syringe) [facility] Last Admin: 05/15/23 09:12 Dose: Not Given Documented By: ALMA Non-Admin Reason: Previously Administered Spironolactone (Spironolactone 25 Mg Tablet) 25 mg PO DAILY [facility]; Protocol Last Admin: 05/15/23 09:04 Dose: 25 mg Documented By: ALMA Labs 05/15/23 06:09 05/15/23 06:09 Labs: Laboratory Results - last 24 hr 05/14/23 05/14/23 05/14/23 14:04 14:36 19:34 MCV 87.4 MCH 27.8 MCHC 31.8 RDW 15.2 Plt Count 165 MPV 11.3 Immature Gran % (Auto) 0.4 Neut % (Auto) 73.9 H Lymph % (Auto) 17.6 L [place] % (Auto) 6.5 Eos % (Auto) 1.3 Baso % (Auto) 0.3 Lymph # (Auto) 1.4 [place] # (Auto) 0.5 Eos # (Auto) 0.1 Baso # (Auto) 0.0 Abs Immat Gran (auto) 0.03 Absolute Neuts (auto) 5.8 Absolute Nucleated RBC 0.000 Nucleated RBC % (auto) 0.0 PT 11.3 INR 0.9 Anion Gap 12 Estim Creat Clear Calc 51.3 Estimated GFR 60 POC Glucose Random Glucose 133 H Estimat Average Glucose Hemoglobin A1c % Calcium 8.6 D Magnesium 2.2 Total Bilirubin 0.3 AST 22 ALT 10 Alkaline Phosphatase 89 B-Natriuretic Peptide 344 H Total Protein 6.9 Albumin 3.3 L Urine Color Yellow Urine Appearance Clear Urine pH 7.0 Ur Specific [place] <= 1.005 Urine Protein Negative Urine Glucose (UA) Negative Urine Ketones Negative Urine Blood Negative Urine Nitrite Negative Ur Leukocyte Esterase Negative COVID-19 (ANEL) Negative COVID-19 Clin Com See Note Influenza Type A (ELGIN) Negative Influenza Type B (ELGIN) Negative Influenza A & B Note See Note 05/15/23 05/15/23 05/15/23 00:06 06:09 07:28 MCV 85.9 MCH 27.1 MCHC 31.5 RDW 15.0 Plt Count 158 L MPV 11.0 Immature Gran % (Auto) Neut % (Auto) Lymph % (Auto) [place] % (Auto) Eos % (Auto) Baso % (Auto) Lymph # (Auto) [place] # (Auto) Eos # (Auto) Baso # (Auto) Abs Immat Gran (auto) Absolute Neuts (auto) Absolute Nucleated RBC 0.000 Nucleated RBC % (auto) 0.0 PT INR Anion Gap 14 Estim Creat Clear Calc 51.3 Estimated GFR 60 POC Glucose 227 H 123 H Random Glucose 164 H Estimat Average Glucose 134 Hemoglobin A1c % 6.3 H Calcium 9.5 D Magnesium Total Bilirubin 0.4 AST 10 ALT 10 Alkaline Phosphatase 103 B-Natriuretic Peptide Total Protein 7.4 Albumin 3.9 Urine Color Urine Appearance Urine pH Ur Specific [place] Urine Protein Urine Glucose (UA) Urine Ketones Urine Blood Urine Nitrite Ur Leukocyte Esterase COVID-19 (ANEL) COVID-19 Clin Com Influenza Type A (ELGIN) Influenza Type B (ELGIN) Influenza A & B Note Assessment and Plan (1) Acute hypoxic respiratory failure: Status: Acute (2) Acute exacerbation of chronic obstructive pulmonary disease: Status: Acute (3) Congestive heart failure: Status: Acute Plan Paola Adhikari is a 62 years old woman admitted with: # acute on chronic Hypoxemic respiratory failure, 2/2 Acute exacerbation of COPD with acute on chronic systolic congestive heart failure. Continue supplemental oxygen to keep oxygen saturation above 90%. wean as tolerated Continue bronchodilator therapy IV steroids IV Lasix. Continue spironolactone and Coreg. Continue montelukast. # Anxiety and depression. Continue sertraline. Seroquel and trazodone on hold to avoid sedation in the setting of respiratory failure. # Type 2 diabetes mellitus. Blood glucose monitoring before meals at bedtime. Blood glucose control with insulin sliding scale. Diabetic diet. Check HgbA1c. # Essential hypertension. Continue Coreg, spironolactone and losartan. # Obstructive sleep apnea. Not tolerating CPAP. # Tobacco dependence. Tobacco cessation education. Nicotine patch as needed. VTE prophylaxis: Heparin subQ Code status: Full Patient would require hospitalization overnight for respiratory failure treatment. She will require supplemental oxygen, close oxygen saturation monitoring, bronchodilator therapy, IV diuretics and steroids. Quality Stroke Does the patient have a stroke diagnosis?: No VTE Prior VTE?: No VTE Risk Level:: Medical - moderate - high VTE Device Contraindication: Treatment Not Indicated VTE Drug Contraindication: N/A - Med Ordered
[2023-05-15 11:38] LABS: Glucose, Whole Blood 248 mg/dL (60-115)
[2023-05-15] MEDS: Acetaminophen 325 MG TABLET 975 MG PO (12:08)
[2023-05-15] MEDS: Insulin Lispro 100 UNIT/ML 3 ML VIAL SUBCUT ×2 (12:08→20:55)
--- NOTE | 2023-05-15 12:53 | MHC.CM.PN ---
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
[2023-05-15 16:17] LABS: Glucose, Whole Blood 149 mg/dL (60-115)
[2023-05-15 20:44] LABS: Glucose, Whole Blood 192 mg/dL (60-115)
[2023-05-15] MEDS: Montelukast Sodium 10 MG TABLET PO (20:55)
[2023-05-15] MEDS: 0.9 % Sodium Chloride Flush 3 ML SYRINGE IVFLUSH (20:56)
[2023-05-16] VITALS (12 sets, daily range): BP systolic 110–192; BP diastolic 59–98; PULSE 78–106; RESP 12–24; TEMP 36.1–37.2; O2SAT 85–97
[2023-05-16 06:30] LABS: Anion Gap 15 (12-20); Blood Urea Nitrogen 31 mg/dL (9-16); Calcium 9.7 mg/dL (8.4-10.2); Carbon Dioxide 28 mmol/L (22-29); Chloride 101 mmol/L (96-108); Creatinine Clr Calc Pharmacy 39.7; Estimated Glomerular Filt Rate 44; Glucose Random 146 mg/dL (60-115); Potassium 4.8 mmol/L (3.3-5.1); Sodium 139 mmol/L (135-145)
--- NOTE | 2023-05-16 07:06 | P.CDIM_ITS ---
PROVIDER RESPONSE TEXT: To clarify, the appropriate diagnosis supported by the clinical indicators: Mild intermittent: with exacerbation QUERY TEXT: PHYSICIAN'S DOCUMENTATION REQUEST Date of Query: 05/15/2023 11:27 AM EST Patient Name: Paola Ross Admit Date: 05/15/2023 Dear Kailey Angelo, A review of the medical record indicates additional documentation may be needed. Please review below and update the documentation accordingly. Clinical indicators: H&P 05/15 - Asthma with exacerbation supplemental oxygen, bronchodilator therapy, steroids ED: Clinical impression -Asthma with exacerbation Based on the above, please clarify in the Progress Notes further specificity regarding the type and a cuity of the asthma: Mild intermittent Please specify if with or without acute exacerbation or status asthmaticus Mild persistent Please specify if with or without acute exacerbation or status asthmaticus Moderate persistent Please specify if with or without acute exacerbation or status asthmaticus Severe persistent Please specify if with or without acute exacerbation or status asthmaticus Exercise induced Please specify if with or without acute exacerbation or status asthmaticus Chronic obstructive asthma and indicate if with acute lower respiratory infection Please specify if with or without acute exacerbation or status asthmaticus Asthma with underlying COPD and indicate if with acute lower respiratory infection Please specify if with or without acute exacerbation or status asthmaticus Other (explain) Clinically unable to determine (explain) Thank you, Genna Farr, CCS, CDIS Use of terms such as suspected, likely, concern for, or probable (associated with a specific diagnosi s that is being evaluated, monitored, or treated as if it exists) are acceptable and can be coded in the inpatient se tting, when documented at the time of discharge. Please use your independent medical judgment in providing your response. THIS QUERY IS PART OF THE PERMANENT MEDICAL RECORD
[2023-05-16 07:23] LABS: Glucose, Whole Blood 128 mg/dL (60-115)
[2023-05-16] MEDS: Albuterol/Iprat 2.5/0.5MG 3 ML AMPUL.NEB INHALE ×3 (07:46→20:11)
[2023-05-16] MEDS: Fluticasone/Vilanterol 100/25 BLST.W.DEV 1 PUFF INHALE (07:46)
[2023-05-16] MEDS: Furosemide 100 MG/10 ML VIAL 40 MG IVPUSH (08:16)
[2023-05-16] MEDS: methylPREDNISolone Sod Succ 40 MG/ML VIAL IVPUSH ×2 (08:16→21:20)
[2023-05-16] MEDS: Folic Acid 1 MG TABLET PO (08:17)
[2023-05-16] MEDS: Spironolactone 25 MG TABLET PO (08:17)
[2023-05-16] MEDS: Losartan Potassium 50 MG TABLET 100 MG PO (08:17)
[2023-05-16] MEDS: carvediloL 25 MG TABLET PO ×2 (08:17→21:20)
[2023-05-16] MEDS: Sertraline HCL 100 MG TABLET 200 MG PO (08:17)
[2023-05-16] MEDS: 0.9 % Sodium Chloride Flush 3 ML SYRINGE IVFLUSH ×3 (08:18→21:20)
[2023-05-16 11:20] LABS: Glucose, Whole Blood 328 mg/dL (60-115)
--- NOTE | 2023-05-16 11:58 | HO.PM.IMPN ---
Subjective Subjective Date of Service: 05/16/23 Interval History: seen and evaluated this morning Feels better overall still dyspneic with minimal exertion and O2 drops to early 80s with exertion on 4L Review of Systems Review of Systems: Yes all other systems are reviewed and are negative Physical Exam Vital Signs: Vital Signs: Last Vital Signs Temp 98.2 F 05/16/23 11:06 Pulse 106 H 05/16/23 11:29 Resp 20 05/16/23 11:29 BP 128/92 H 05/16/23 11:06 Pulse Ox 93 05/16/23 11:06 O2 Del Method Nasal Cannula 05/16/23 11:06 O2 Flow Rate 4 05/16/23 11:06 BMI result Body Mass Index 29.4 Const: Other: Constitutional : Awake, interactive, not in distress Neck : Normal inspection, Supple Cardiovascular : RRR, no JVP, no lower extremity edema Respiratory : fair bilateral air entry, fine basal crackles, expiratory wheezes Gastrointestinal: soft, lax, Normal bowel sounds, Non tender Skin : Warm, Dry Neurological : Alert & oriented x3, No focal deficit Objective Data Active Medications Acetaminophen (Acetaminophen 325 Mg Tablet) 975 mg PO Q6H PRN PRN Reason: Pain, Mild (Pain Scale 1-3) Last Admin: 05/15/23 12:08 Dose: 975 mg Documented By: AMLA Albuterol/Ipratropium (Albuterol/Iprat 2.5/0.5mg 3 Ml Ampul.Neb) 3 ml INHALE RQ4H WHILE AWAKE [facility] Last Admin: 05/16/23 11:28 Dose: 3 ml Documented By: OLAMIDE Carvedilol (Carvedilol 25 Mg Tablet) 25 mg PO BID [facility]; Protocol Last Admin: 05/16/23 08:17 Dose: 25 mg Documented By: JENIFER Dextrose (Dextrose 50 % 25 Gm/50 Ml Syringe) 25 gm IVPUSH Q15M PRN; Protocol PRN Reason: per Hypoglycemia Standing Ord. Fluticasone/Vilanterol (Fluticasone/Vilanterol 100/25 Blst.W.Dev) 1 puff INHALE DAILY [facility] Last Admin: 05/16/23 07:46 Dose: 1 puff Documented By: OLAMIDE Folic Acid (Folic Acid 1 Mg Tablet) 1 mg PO DAILY [facility] Last Admin: 05/16/23 08:17 Dose: 1 mg Documented By: JENIFER Furosemide (Furosemide 100 Mg/10 Ml Vial) 40 mg IVPUSH DAILY [facility]; Protocol Last Admin: 05/16/23 08:16 Dose: 40 mg Documented By: JENIFER Glucose (Glucose Gel 15 Gm Gel..Gram.) 15 gm PO Q15M PRN; Protocol PRN Reason: per Hypoglycemia Standing Ord. Heparin Sodium (Porcine) (Heparin Sodium,Porcine 5,000 Unit/Ml Vial) 5,000 unit SUBCUT Q8H [facility] Last Admin: 05/16/23 08:27 Dose: Not Given Documented By: JENIFER Non-Admin Reason: Patient Refused Insulin Human Lispro (Insulin Lispro 100 Unit/Ml 3 Ml Vial) 0 unit SUBCUT QIDACHS [facility]; Protocol Last Admin: 05/16/23 07:36 Dose: Not Given Documented By: JENIFER Non-Admin Reason: No Insulin Coverage Losartan Potassium (Losartan Potassium 50 Mg Tablet) 100 mg PO DAILY [facility]; Protocol Last Admin: 05/16/23 08:17 Dose: 100 mg Documented By: JENIFER Methylprednisolone Sodium Succinate (Methylprednisolone Sod Succ 40 Mg/Ml Vial) 40 mg IVPUSH Q12H [facility] Last Admin: 05/16/23 08:16 Dose: 40 mg Documented By: JENIFER Montelukast Sodium (Montelukast Sodium 10 Mg Tablet) 10 mg PO BEDTIME [facility] Last Admin: 05/15/23 20:55 Dose: 10 mg Documented By: MITZY Sertraline HCl (Sertraline Hcl 100 Mg Tablet) 200 mg PO DAILY [facility] Last Admin: 05/16/23 08:17 Dose: 200 mg Documented By: JENIFER Sodium Chloride (0.9 % Sodium Chloride Flush 3 Ml Syringe) 3 ml IVFLUSH [facility] Last Admin: 05/16/23 08:18 Dose: 3 ml Documented By: JENIFER Spironolactone (Spironolactone 25 Mg Tablet) 25 mg PO DAILY [facility]; Protocol Last Admin: 05/16/23 08:17 Dose: 25 mg Documented By: JENIFER Labs 05/15/23 06:09 05/16/23 05:58 Labs: Laboratory Results - last 24 hr 05/15/23 05/15/23 05/16/23 15:59 20:37 05:58 Anion Gap 15 Estim Creat Clear Calc 39.7 Estimated GFR 44 POC Glucose 149 H 192 H Random Glucose 146 H Calcium 9.7 05/16/23 05/16/23 07:19 11:11 Anion Gap Estim Creat Clear Calc Estimated GFR POC Glucose 128 H 328 H Random Glucose Calcium Assessment and Plan (1) Asthma with exacerbation: Status: Acute (2) Acute hypoxic respiratory failure: Status: Acute (3) Acute exacerbation of chronic obstructive pulmonary disease: Status: Acute (4) Congestive heart failure: Status: Acute Plan Paola Adhikari is a 62 years old woman admitted with: # acute on chronic Hypoxemic respiratory failure, 2/2 Acute exacerbation of COPD with acute on chronic systolic congestive heart failure. Continue bronchodilator therapy IV steroids IV Lasix. Continue spironolactone and Coreg. Continue montelukast. Wean O2 down to 4L with goal of O2 sat >90% # Anxiety and depression. Continue sertraline. Seroquel and trazodone on hold to avoid sedation in the setting of respiratory failure. # Type 2 diabetes mellitus. Blood glucose monitoring before meals at bedtime. Blood glucose control with insulin sliding scale. Diabetic diet. Check HgbA1c. # Essential hypertension. Continue Coreg, spironolactone and losartan. # Obstructive sleep apnea. Not tolerating CPAP. # Tobacco dependence. Tobacco cessation education. Nicotine patch as needed. VTE prophylaxis: Heparin subQ Code status: Full Patient would require hospitalization overnight for respiratory failure treatment. She will require supplemental oxygen, close oxygen saturation monitoring, bronchodilator therapy, IV diuretics and steroids. Quality Stroke Does the patient have a stroke diagnosis?: No VTE Prior VTE?: No VTE Risk Level:: Medical - moderate - high VTE Device Contraindication: Treatment Not Indicated VTE Drug Contraindication: N/A - Med Ordered
[2023-05-16] MEDS: guaiFENesin LA 600 MG TAB.ER.12H PO ×2 (12:10→21:20)
[2023-05-16] MEDS: Insulin Lispro 100 UNIT/ML 3 ML VIAL SUBCUT ×2 (12:10→21:20)
--- NOTE | 2023-05-16 13:22 | PC.NURSE ---
MD Angelo notified via tiger text at 0826 pts o2 reading mid 80's on 4L O2, HR 109. LS Dim, crackles noted in bilateral bases and wheezing in upper lobes. RT at bedside prior to this incident administering pt neb. Pt states she feels ok and dose not appear SOB at this time. Per MD maintain Pt o2 >90%, pt titrated up to six L o2 NC saturating 88-93%. Pt titrated back down to 4L at 11:11, saturating 88-91% MD aware.
[2023-05-16 16:07] LABS: Glucose, Whole Blood 93 mg/dL (60-115)
[2023-05-16 20:23] LABS: Glucose, Whole Blood 234 mg/dL (60-115)
[2023-05-16] MEDS: Montelukast Sodium 10 MG TABLET PO (21:20)
[2023-05-16 23:59] LABS: Glucose, Whole Blood 30 mg/dL (60-115)
[2023-05-17] MEDS: Dextrose 50 % 25 GM/50 ML SYRINGE IVPUSH ×2 (00:01→00:06)
[2023-05-17 00:11] LABS: ABG HCO3 29 mmol/L (22-26); ABG pCO2 45 mmHg (32-45); ABG pH 7.41 (7.35-7.45); ABG pO2 71 mmHg (83-108)
[2023-05-17 00:12] LABS: Glucose, Whole Blood 167 mg/dL (60-115)
[2023-05-17 00:16] LABS: Glucose, Whole Blood 260 mg/dL (60-115)
[2023-05-17 00:41] LABS: ABG Refer to POC result
[2023-05-17 00:55] LABS: Glucose, Whole Blood 184 mg/dL (60-115)
[2023-05-17 01:24] VITALS: BP 145/89; PULSE 71
[2023-05-17 01:31] LABS: MANUAL DIFF FLAG NO
[2023-05-17 01:32] LABS: Basophils Percent Auto 0.1 % (0-2); Hematocrit 38.8 % (37.0-47.0); Hemoglobin 12.6 g/dl (12.0-16.0); Imm Gran Abs Auto 0.06 X10*3/uL (0.00-0.03); Imm Gran Pct Auto 0.5 % (0.0-0.4); Lymphocytes Absolute Auto 0.8 X10*3/uL (1.2-4.9); Mean Corpuscular HGB Conc 32.5 g/dl (31.0-35.0); Mean Corpuscular Hemoglobin 27.2 pg (27.0-33.0); Mean Corpuscular Volume 83.6 fL (80.0-98.0); Mean Platelet Volume 10.3 fL (9.4-12.3); Monocytes Absolute Auto 0.5 X10*3/uL (0.1-1.2); Monocytes Percent Auto 3.8 % (2-11); Neutrophils Absolute Auto 11.3 x10*3/uL (2.0-8.3); Neutrophils Percent Auto 89.6 % (45-73); Platelet Count 184 X10*3/uL (160-400); Red Blood Count 4.64 X10*6/uL (4.20-5.50); Red Cell Distribution Width 15.2 % (11.0-16.0); White Blood Count 12.6 X10*3/uL (4.8-10.8)
[2023-05-17] MEDS: methylPREDNISolone Sod Succ 125 MG/2 ML VIAL 80 MG IVPUSH (01:39)
[2023-05-17 01:41] LABS: Lactic Acid 1.5 mmol/L (0.5-2.0)
[2023-05-17] MEDS: Azithromycin 500 MG in 0.9 % Sodium Chloride 250 ML 125 MG IV (01:43)
[2023-05-17 01:47] LABS: Alanine Aminotransferase 12 U/L (0-31); Albumin Level 3.9 g/dL (3.5-5.0); Alkaline Phosphatase 100 U/L (39-117); Anion Gap 15 (12-20); Aspartate Amino Transferase 13 U/L (5-31); Bilirubin Total 0.6 mg/dL (0.0-1.0); Blood Urea Nitrogen 35 mg/dL (9-16); Calcium 9.7 mg/dL (8.4-10.2); Carbon Dioxide 26 mmol/L (22-29); Chloride 101 mmol/L (96-108); Creatinine Clr Calc Pharmacy 35.4; Estimated Glomerular Filt Rate 39; Glucose Random 163 mg/dL (60-115); Potassium 3.7 mmol/L (3.3-5.1); Sodium 138 mmol/L (135-145); Total Protein 7.4 g/dL (6.5-8.0)
[2023-05-17 01:51] LABS: Glucose, Whole Blood 127 mg/dL (60-115)
[2023-05-17] MEDS: Dextrose 10 % 1,000 ML 50 ML IVCONT (02:00)
--- NOTE | 2023-05-17 02:05 | MHC.PIE ---
Addendum entered by Candie Olivas RN 05/17/23 02:20: i; solumed 80mg now, azithromax now Original Note: p; 2355 pt found with min response/no verbal response, pale and cool to touch. bp 190's i; rapid called. x2 in room p; poc 30 i; d50 given. ABG ordered and taken. labs ordered. ct head ordered. p; 0005 poc 167 i; d50 given per p; @0013 poc 260. @ 0045 poc 180. @ 0145 poc 127 i; dr kitchen notified new order D10 @ 50ml/h e; will cont to [facility]
[2023-05-17 02:08] LABS: Troponin-I High Sensitivity 15.7 ng/L (<3.5-17.0)
[2023-05-17 02:54] LABS: Glucose, Whole Blood 185 mg/dL (60-115)
[2023-05-17 03:17] VITALS: BP 144/94; PULSE 71; RESP 20; TEMP 36; O2SAT 97
[2023-05-17 03:50] LABS: Glucose, Whole Blood 213 mg/dL (60-115)
--- NOTE | 2023-05-17 04:02 | MHC.PIE ---
p; @ 0245 poc 185. @ 0345 poc 213. i; dr kitchen notified; new order decrease D10 to 20ml/h e; will cont to [facility]
--- NOTE | 2023-05-17 04:51 | PM.EVENT ---
Event Note Date of Service: 05/17/23 Event Note: 05/16/2023-1145 p.m. The rapid response was activated as the patient was found to have labored breathing and decreased responsiveness. Patient was noted to be breathing with pursed lips and looks quite somnolent. Cardiopulmonary exam revealed decreased breath sounds (minimal end expiratory wheezing) but no crackles or rhonchi Her blood pressure was significantly elevated 192/98. Her oxygen saturation dropped to 95% and supplemental oxygen flow was increased to 4 liters/minute. She was found to have a blood glucose of 30. Patient received a total of 2 amps of D50 and her neurological status improved significantly but not completely. ABG stat showed no respiratory acidosis. Head CT scan showed no acute intracranial processes. Blood glucose increased over 200 but subsequently start to decrease the patient was placed on D10 IV infusion. Blood pressure started to decrease spontaneously without interventions as well as her heart rate. CXR stat was done and showed no significant changes when compared to prior. Therapy with bronchodilator therapy was ordered as needed and 1 dose of Solu-Medrol 80 mg IV x1 was given. Time Spent With Patient Time: Time managing care of this patient today 30 minutes.
[2023-05-17 05:49] LABS: Glucose, Whole Blood 254 mg/dL (60-115)
--- NOTE | 2023-05-17 05:50 | MHC.PIE ---
p; poc 254 i; dr kitchen notified, new order dc d10 now e; will cont to [facility]
[2023-05-17 06:25] LABS: Appearance Urine Clear; Color Urine Yellow; Glucose Urine UA 250 mg/dL (Negative); Leukocyte Esterase Urine Small (1+) (Negative); Nitrite Urine Negative (Negative); PH 5.5 (5.0-9.0); Specific Gravity - Urine 1.015 (1.005-1.025); UMIC TRIGGER UA YES; Urine Blood Negative (Negative); Urine Ketones Negative (Negative); Urine Protein Negative (Neg-Trace)
[2023-05-17 06:27] LABS: Bacteria Urine None Seen (None Seen); Hyaline Casts Urine 0-2 /LPF (0-2); RBC Urine 0-2 /HPF (0-2); Squamous Epithelial Cell Urine 0-2 /HPF (0-2)
[2023-05-17 07:02] LABS: Glucose, Whole Blood 209 mg/dL (60-115)
[2023-05-17 07:15] VITALS: BP 132/82; PULSE 77; RESP 20; TEMP 36.2; O2SAT 93
[2023-05-17 07:52] LABS: Glucose, Whole Blood 218 mg/dL (60-115)
[2023-05-17] MEDS: Fluticasone/Vilanterol 100/25 BLST.W.DEV 1 PUFF INHALE (08:08)
[2023-05-17] MEDS: Albuterol/Iprat 2.5/0.5MG 3 ML AMPUL.NEB INHALE (08:08)
[2023-05-17 08:10] VITALS: PULSE 76; RESP 20; O2SAT 94
[2023-05-17] MEDS: Losartan Potassium 50 MG TABLET 100 MG PO (08:30)
[2023-05-17] MEDS: Folic Acid 1 MG TABLET PO (08:30)
[2023-05-17] MEDS: carvediloL 25 MG TABLET PO (08:31)
[2023-05-17] MEDS: Insulin Lispro 100 UNIT/ML 3 ML VIAL SUBCUT (08:31)
[2023-05-17] MEDS: Sertraline HCL 100 MG TABLET 200 MG PO (08:31)
[2023-05-17] MEDS: Spironolactone 25 MG TABLET PO (08:31)
[2023-05-17] MEDS: guaiFENesin LA 600 MG TAB.ER.12H PO (08:31)
[2023-05-17] MEDS: 0.9 % Sodium Chloride Flush 3 ML SYRINGE IVFLUSH (08:32)
[2023-05-17] MEDS: methylPREDNISolone Sod Succ 40 MG/ML VIAL IVPUSH (08:32)
[2023-05-17 08:34] LABS: Anion Gap 16 (12-20); Blood Urea Nitrogen 34 mg/dL (9-16); Calcium 9.1 mg/dL (8.4-10.2); Carbon Dioxide 24 mmol/L (22-29); Chloride 100 mmol/L (96-108); Creatinine Clr Calc Pharmacy 35.9; Estimated Glomerular Filt Rate 40; Glucose Random 229 mg/dL (60-115); Sodium 136 mmol/L (135-145)
--- NOTE | 2023-05-17 10:03 | P.DS_ITS ---
DS: Providers Provider Date of Service: 05/17/23 Date of admission: 05/14/23 20:45 Primary care physician: [facility] DS: Diagnosis Discharge Diagnosis (1) Asthma with exacerbation: Status: Acute (2) Acute hypoxic respiratory failure: Status: Acute (3) Acute exacerbation of chronic obstructive pulmonary disease: Status: Acute (4) Congestive heart failure: Status: Acute (5) Hypoglycemia associated with type 2 diabetes mellitus: Status: Acute DS: Summary Hospital Course Hospital Course: Admission note HPI Paola Adhikari is a 62 years old woman with a past medical history significant for COPD on home oxygen 2-3 liters/minute via nasal cannula (on prednisone daily), systolic congestive heart failure (EF 30-35%), pulmonary hypertension, anxiety, depression, essential hypertension and KELLIE presents to the emergency department complaining of worsening shortness of breath over the last few days. She is ongoing tobacco smoker. She denied any headache, palpitations, dizziness or chest pain. She does complain of mildly productive cough. There is no fever or shortness reported. She denied any acute gastrointestinal or genitourinary symptoms. She denied edema to the lower extremities. Patient denied illicit drug use or alcohol abuse. She has had multiple hospitalizations due to respiratory failure and COPD exacerbation. Last hospitalization was about 2 weeks ago. In the ED, was found to have stable vital signs except for low oxygen saturation 87%. She is currently requiring 3 liters/minute supplemental oxygen. Blood workup is remarkable for elevated BNP. Viral testing is negative for COVID-19 and influenza. She underwent a chest CT scan showed finding consistent with centrilobular emphysema, mild cardiomegaly with mild coronary artery calcifications, likely old L1 compression fracture, right posterior bibasilar pleural thickening w/o pleural effusions. ED tx: Solu-Medrol 125 mg IV x1, furosemide 40 mg IV x1, albuterol nebs X2. There are no significant electrolyte imbalances. Renal function is normal. Hospital course Admitted for acute on chronic Hypoxemic respiratory failure, secondary to Acute exacerbation of COPD with acute on chronic systolic congestive heart failure. Treated with IV Lasix, IV Steroids and Bronchidilators with addition of Azithromycin and Mucenix with good response over the course of hospital stay as she was weaned down O2 to baseline of 4L with good tolerance and reported dyspnea. Continue spironolactone , Coreg and montelukast. She is reported to have Hx of Type 2 diabetes mellitus . she developed one incident of HYpoglycemia. Likely Hypoglycemia related to Insulin usage inpatient. responded well to D50. HbA1c of 6.3. Hold any diabetes treatment at this point. Use Nebulizer 3 times daily for next week then as needed Continue Prednisone and Azithromycin as prescribed Time Attestation Discharge coordination time: Greater than 30 minutes Quality: Safe Use of Opioids Does Pt have an Active Cancer Diagnosis on the Problem List?: No Quality: Stroke Does the patient have a stroke diagnosis?: No Physical Exam Vital Signs: Vital Signs: Last Vital Signs Temp 97.1 F 05/17/23 07:15 Pulse 76 05/17/23 08:10 Resp 20 05/17/23 08:10 BP 132/82 05/17/23 07:15 Pulse Ox 93 05/17/23 07:15 O2 Del Method Nasal Cannula 05/17/23 07:15 O2 Flow Rate 4 05/17/23 07:15 BMI result Body Mass Index 29.4 Const: Other: Constitutional : Awake, interactive, not in distress Neck : Normal inspection, Supple Cardiovascular : RRR, no JVP, no lower extremity edema Respiratory : fair bilateral air entry, no crackles, no wheezes, on 4L O2 Gastrointestinal: soft, lax, Normal bowel sounds, Non tender Skin : Warm, Dry Neurological : Alert & oriented x3, No focal deficit DS: Data Data Completed and Pending Completed studies during hospitalization [Text1]: Procedures Assistance with Respiratory Ventilation, Less than 24 Consecutive Hours, Continuous Positive Airway Pressure (04/30/23) Labs on day of discharge: Laboratory Results - last 24 hr 05/16/23 05/16/23 05/16/23 11:11 15:56 20:09 WBC RBC Hgb Hct MCV MCH MCHC RDW Plt Count MPV Immature Gran % (Auto) Neut % (Auto) Lymph % (Auto) [place] % (Auto) Eos % (Auto) Baso % (Auto) Lymph # (Auto) [place] # (Auto) Eos # (Auto) Baso # (Auto) Abs Immat Gran (auto) Absolute Neuts (auto) Absolute Nucleated RBC Nucleated RBC % (auto) Hold Purple Top O2 Saturation ABG pH at Pt Temp ABG pCO2 at Pt Temp ABG pO2 at Pt Temp ABG HCO3 ABG Base Excess (Actual) Sodium Potassium Chloride Carbon Dioxide Anion Gap BUN Creatinine Estim Creat Clear Calc Estimated GFR POC Glucose 328 H 93 234 H Random Glucose Lactic Acid Calcium Total Bilirubin AST ALT Alkaline Phosphatase Troponin I High Sens Total Protein Albumin Urine Color Urine Appearance Urine pH Ur Specific [place] Urine Protein Urine Glucose (UA) Urine Ketones Urine Blood Urine Nitrite Ur Leukocyte Esterase Urine RBC Urine WBC Ur Squamous Epith Cells Urine Bacteria Hyaline Casts 05/16/23 05/17/23 05/17/23 23:55 00:03 00:05 WBC RBC Hgb Hct MCV MCH MCHC RDW Plt Count MPV Immature Gran % (Auto) Neut % (Auto) Lymph % (Auto) [place] % (Auto) Eos % (Auto) Baso % (Auto) Lymph # (Auto) [place] # (Auto) Eos # (Auto) Baso # (Auto) Abs Immat Gran (auto) Absolute Neuts (auto) Absolute Nucleated RBC Nucleated RBC % (auto) Hold Purple Top O2 Saturation 91.0 ABG pH at Pt Temp 7.41 ABG pCO2 at Pt Temp 45 ABG pO2 at Pt Temp 71 L ABG HCO3 29 H ABG Base Excess (Actual) 4.0 Sodium Potassium Chloride Carbon Dioxide Anion Gap BUN Creatinine Estim Creat Clear Calc Estimated GFR POC Glucose 30 L* 167 H Random Glucose Lactic Acid Calcium Total Bilirubin AST ALT Alkaline Phosphatase Troponin I High Sens Total Protein Albumin Urine Color Urine Appearance Urine pH Ur Specific [place] Urine Protein Urine Glucose (UA) Urine Ketones Urine Blood Urine Nitrite Ur Leukocyte Esterase Urine RBC Urine WBC Ur Squamous Epith Cells Urine Bacteria Hyaline Casts 05/17/23 05/17/23 05/17/23 00:12 00:44 01:16 WBC 12.6 H RBC 4.64 Hgb 12.6 Hct 38.8 MCV 83.6 MCH 27.2 MCHC 32.5 RDW 15.2 Plt Count 184 MPV 10.3 Immature Gran % (Auto) 0.5 H Neut % (Auto) 89.6 H Lymph % (Auto) 6.0 L [place] % (Auto) 3.8 Eos % (Auto) 0.0 Baso % (Auto) 0.1 Lymph # (Auto) 0.8 L [place] # (Auto) 0.5 Eos # (Auto) 0.0 Baso # (Auto) 0.0 Abs Immat Gran (auto) 0.06 H Absolute Neuts (auto) 11.3 H Absolute Nucleated RBC 0.000 Nucleated RBC % (auto) 0.0 Hold Purple Top O2 Saturation ABG pH at Pt Temp ABG pCO2 at Pt Temp ABG pO2 at Pt Temp ABG HCO3 ABG Base Excess (Actual) Sodium 138 Potassium 3.7 D Chloride 101 Carbon Dioxide 26 Anion Gap 15 BUN 35 H Creatinine 1.38 Estim Creat Clear Calc 35.4 Estimated GFR 39 POC Glucose 260 H 184 H Random Glucose 163 H Lactic Acid 1.5 Calcium 9.7 Total Bilirubin 0.6 AST 13 ALT 12 Alkaline Phosphatase 100 Troponin I High Sens 15.7 Total Protein 7.4 Albumin 3.9 Urine Color Urine Appearance Urine pH Ur Specific [place] Urine Protein Urine Glucose (UA) Urine Ketones Urine Blood Urine Nitrite Ur Leukocyte Esterase Urine RBC Urine WBC Ur Squamous Epith Cells Urine Bacteria Hyaline Casts 05/17/23 05/17/23 05/17/23 01:46 02:49 03:46 WBC RBC Hgb Hct MCV MCH MCHC RDW Plt Count MPV Immature Gran % (Auto) Neut % (Auto) Lymph % (Auto) [place] % (Auto) Eos % (Auto) Baso % (Auto) Lymph # (Auto) [place] # (Auto) Eos # (Auto) Baso # (Auto) Abs Immat Gran (auto) Absolute Neuts (auto) Absolute Nucleated RBC Nucleated RBC % (auto) Hold Purple Top O2 Saturation ABG pH at Pt Temp ABG pCO2 at Pt Temp ABG pO2 at Pt Temp ABG HCO3 ABG Base Excess (Actual) Sodium Potassium Chloride Carbon Dioxide Anion Gap BUN Creatinine Estim Creat Clear Calc Estimated GFR POC Glucose 127 H 185 H 213 H Random Glucose Lactic Acid Calcium Total Bilirubin AST ALT Alkaline Phosphatase Troponin I High Sens Total Protein Albumin Urine Color Urine Appearance Urine pH Ur Specific [place] Urine Protein Urine Glucose (UA) Urine Ketones Urine Blood Urine Nitrite Ur Leukocyte Esterase Urine RBC Urine WBC Ur Squamous Epith Cells Urine Bacteria Hyaline Casts 05/17/23 05/17/23 05/17/23 05:45 06:16 06:51 WBC RBC Hgb Hct MCV MCH MCHC RDW Plt Count MPV Immature Gran % (Auto) Neut % (Auto) Lymph % (Auto) [place] % (Auto) Eos % (Auto) Baso % (Auto) Lymph # (Auto) [place] # (Auto) Eos # (Auto) Baso # (Auto) Abs Immat Gran (auto) Absolute Neuts (auto) Absolute Nucleated RBC Nucleated RBC % (auto) Hold Purple Top O2 Saturation ABG pH at Pt Temp ABG pCO2 at Pt Temp ABG pO2 at Pt Temp ABG HCO3 ABG Base Excess (Actual) Sodium Potassium Chloride Carbon Dioxide Anion Gap BUN Creatinine Estim Creat Clear Calc Estimated GFR POC Glucose 254 H 209 H Random Glucose Lactic Acid Calcium Total Bilirubin AST ALT Alkaline Phosphatase Troponin I High Sens Total Protein Albumin Urine Color Yellow Urine Appearance Clear Urine pH 5.5 Ur Specific [place] 1.015 Urine Protein Negative Urine Glucose (UA) 250 H Urine Ketones Negative Urine Blood Negative Urine Nitrite Negative Ur Leukocyte Esterase Small (1+) H Urine RBC 0-2 Urine WBC 6-10 H Ur Squamous Epith Cells 0-2 Urine Bacteria None Seen Hyaline Casts 0-2 05/17/23 05/17/23 07:48 08:10 WBC RBC Hgb Hct MCV MCH MCHC RDW Plt Count MPV Immature Gran % (Auto) Neut % (Auto) Lymph % (Auto) [place] % (Auto) Eos % (Auto) Baso % (Auto) Lymph # (Auto) [place] # (Auto) Eos # (Auto) Baso # (Auto) Abs Immat Gran (auto) Absolute Neuts (auto) Absolute Nucleated RBC Nucleated RBC % (auto) Hold Purple Top SEE NOTE O2 Saturation ABG pH at Pt Temp ABG pCO2 at Pt Temp ABG pO2 at Pt Temp ABG HCO3 ABG Base Excess (Actual) Sodium 136 Potassium 4.0 Chloride 100 Carbon Dioxide 24 Anion Gap 16 BUN 34 H Creatinine 1.36 Estim Creat Clear Calc 35.9 Estimated GFR 40 POC Glucose 218 H Random Glucose 229 H Lactic Acid Calcium 9.1 D Total Bilirubin AST ALT Alkaline Phosphatase Troponin I High Sens Total Protein Albumin Urine Color Urine Appearance Urine pH Ur Specific [place] Urine Protein Urine Glucose (UA) Urine Ketones Urine Blood Urine Nitrite Ur Leukocyte Esterase Urine RBC Urine WBC Ur Squamous Epith Cells Urine Bacteria Hyaline Casts Imaging Chest x-ray: Radiologist's impression: ITS Impressions Chest X-Ray 05/14/23 14:14 IMPRESSION: Streaky opacities of the bilateral lung bases may reflect atelectasis versus evolving infectious/inflammatory etiology. Chest CT 05/14/23 17:03 IMPRESSION: 1. Diffuse centrilobular emphysema with prominent fine reticular interstitial markings in both lung bases. No acute consolidation or mass seen. 2. There is a 2 mm nodule left upper lobe. 3. Mild cardiomegaly with mild coronary artery calcifications. 4. Diffuse osteopenia with L1 compression deformity, likely old. 5. Minimal right posterior basilar pleural thickening. No pleural effusion or calcified pleural plaque seen. Fleischner guidelines were followed. Chest X-Ray 05/17/23 00:40 IMPRESSION: 1. Pulmonary emphysema. No acute pulmonary findings. 2. Cardiomegaly. 3. Blunting of the left lateral cortex sulcus is likely due to pleural parenchymal scarring. Trace pleural effusion is possible. Head CT 05/17/23 00:40 IMPRESSION: 1. No evidence of acute intracranial hemorrhage or edematous territorial infarction. 2. Chronic extensive white matter disease. Moderate generalized cerebral volume loss. Discharge Plan Discharge Anticipated Discharge Date/Time: 05/17/23 09:51 Patient Disposition: Home Health Service Discharge Diagnosis: COPD exacerbation Heart failure Referrals: [place],[facility] [Primary Care Provider] - 1 Week Discharge Medications: New ipratropium-albuterol 0.5 mg-3 mg(2.5 mg base)/3 mL Solution For Nebulization 3 ml inhalation TID Qty: 270 0RF guaifenesin [Mucinex] 600 mg Tablet Extended Release 12hr 600 mg PO BID Qty: 14 0RF azithromycin 250 mg tablet 250 mg PO DAILY 3 Days Qty: 3 0RF Rx Instructions: start on day 2 of therapy prednisone 20 mg tablet 40 mg PO DAILY Qty: 8 0RF Continued trazodone 50 mg tablet 100 mg PO BEDTIME PRN (Reason: Insomnia) folic acid 1 mg Tablet 1 mg PO DAILY Qty: 90 4RF montelukast 10 mg tablet 10 mg PO BEDTIME prednisone 5 mg tablet 5 mg DAILY Hold Instructions: hold until completing prednisone burst then resume sertraline 100 mg tablet 200 mg PO DAILY tiotropium bromide [Spiriva with HandiHaler] 18 mcg capsule, w/inhalation device 1 cap inhalation DAILY albuterol sulfate [Ventolin HFA] 90 mcg/actuation HFA aerosol inhaler 2 puff inhalation Q4-6H PRN (Reason: Shortness Of Breath Or Wheezing) quetiapine 50 mg tablet 50 mg PO BID fluticasone furoate-vilanterol 100-25 mcg/dose blister with device 1 inh INHALATION DAILY carvedilol 25 mg Tablet 25 mg PO BID 30 Days Qty: 60 0RF Protocol: Hold for SBP/HR < HOLD for SBP < : 90 HOLD for HR < : 60 losartan 50 mg Tablet 100 mg PO DAILY 30 Days Qty: 60 0RF Protocol: Hold for SBP< HOLD for SBP < : 90 spironolactone 25 mg Tablet 25 mg PO DAILY 30 Days Qty: 30 0RF Protocol: Hold for SBP< HOLD for SBP < : 90 furosemide [Lasix] 40 mg tablet 40 mg PO DAILY Discharge Orders: Discharge Order (Routine); Ordered 05/17/23 Ordered By: Kailey Angelo Diet: Advance to usual diet Activity on Discharge: As tolerated Stand Alone Forms: Patient Portal Discharge page Care Plan Goals: Read below Health Concerns: Read below Plan of Treatment: Read below Assessment: You were admitted for treatment of COPD exacerbation and Heart failure with IV steroids, nebulizers , Lasix with fair response over the course of hospital stay. Use Nebulizer 3 times daily for next week then as needed Continue Prednisone and Azithromycin as prescribed Discharge Date/Time: 05/17/23 12:24
[2023-05-17 11:04] LABS: Glucose, Whole Blood 245 mg/dL (60-115)
== END 2023-05-17 12:24 | disposition home health service (06) | DRG 140 ==
LOC: HO.ED 20:25 → HO.EDOVER 22:04 → HO.S3 22:35
PROVIDERS: Physician Assistant; Admitting Provider Internal Medicine; Emergency Provider Student in an Organized Health Care Education/Training Program; Visit Provider Student in an Organized Health Care Education/Training Program
DX: J43.2 Centrilobular emphysema (principal); J96.21 Acute and chronic respiratory failure with hypoxia; I50.23 Acute on chronic systolic (congestive) heart failure; J45.21 Mild intermittent asthma with (acute) exacerbation; G47.33 Obstructive sleep apnea (adult) (pediatric); E11.649 Type 2 diabetes mellitus with hypoglycemia without coma; I11.0 Hypertensive heart disease with heart failure; F32.A Depression, unspecified; F41.9 Anxiety disorder, unspecified; F17.210 Nicotine dependence, cigarettes, uncomplicated; Z71.6 Tobacco abuse counseling; Z20.822 Contact with and (suspected) exposure to COVID-19; Z99.81 Dependence on supplemental oxygen; Z79.51 Long term (current) use of inhaled steroids; Z79.899 Other long term (current) drug therapy
CPT/HCPCS: 36415; 36600; 70450; 71045; 71250; 80048; 80053; 81001; 81003; 82803; 82947; 83036; 83605; 83735; 83880; 84484; 85025; 85027; 85610; 87086; 87502; 87635; 93005; 94640; 99285; J0456; J0696; J1644; J1940; J2405; J2920; J2930; J3475

== ENCOUNTER → 2023-05-14 13:45 | Outpatient (BNV) | payer OTHER, SELFPAY | PROVIDERS: Emergency Provider Student in an Organized Health Care Education/Training Program; Visit Provider Internal Medicine Cardiovascular Disease | DX: I45.10 Unspecified right bundle-branch block (principal); I49.9 Cardiac arrhythmia, unspecified | CPT/HCPCS: 93010 ==

== ENCOUNTER → 2023-05-14 20:45 | Outpatient (BNV) | payer OTHER, SELFPAY | PROVIDERS: Admitting Provider Internal Medicine; Emergency Provider Student in an Organized Health Care Education/Training Program; Visit Provider Internal Medicine | DX: J96.01 Acute respiratory failure with hypoxia (principal); J44.1 Chronic obstructive pulmonary disease with (acute) exacerbation; I50.23 Acute on chronic systolic (congestive) heart failure; J45.901 Unspecified asthma with (acute) exacerbation | CPT/HCPCS: 99223; 99232; 99239; 99499 ==

== ENCOUNTER 2023-05-20 09:33 | Outpatient (AMB) | payer OTHER, SELFPAY ==
--- NOTE | 2023-05-20 09:39 | A.OFFPC_ITS ---
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 Accompanied by: Self / Same As Patient Allergies nicotine [Nicotine] Allergy (Mild, Verified 05/20/23 09:59) ITCHING WITH THE PATCHES topiramate Allergy (Mild, Verified 05/20/23 09:59) inadequealte response Medication List - Last Reconciled 05/20/23 by Analisa Chavez MD albuterol sulfate 90 mcg/actuation (Ventolin HFA) 2 puffs inhalation Q4-6H PRN azithromycin 250 mg PO DAILY 3 days carvedilol 25 mg See Protocol PO BID 30 days fluticasone furoate-vilanterol 100-25 mcg/dose 1 inh inhalation DAILY folic acid 1 mg PO DAILY furosemide (Lasix) 40 mg PO DAILY guaifenesin ER (Mucinex) 600 mg PO BID ipratropium-albuterol 0.5 mg-3 mg(2.5 mg base)/3 mL 3 mL inhalation TID losartan 100 mg See Protocol PO DAILY 30 days montelukast 10 mg PO BEDTIME prednisone 5 mg DAILY prednisone 40 mg (2 x 20 mg) PO DAILY quetiapine 50 mg PO BID sertraline 200 mg PO DAILY spironolactone 25 mg See Protocol PO DAILY 30 days tiotropium bromide (Spiriva with HandiHaler) 1 cap inhalation DAILY trazodone 100 mg PO BEDTIME PRN Tobacco use date assessed: 05/20/23 Dental Screening Dental Screen Date: 05/20/23 Did you have a dental visit in the last 12 months?: No Did you have a dental problem in the last 6 months where you did not have access to dental care?: No Was dental information given to patient?: Patient declined HPI HPI Comments History of Present Illness Details This is a 62-year-old female with severe COPD on oxygen, diabetes mellitus type 2, mild recurrent major depression and congestive heart failure that comes today as a hospital discharge follow-up with discharge date 05/17/2023 due to COPD exacerbation presenting symptoms of worsening dyspnea over the past few days. She also has dry mouth that bothers her. She seemed very confused and a head CT was done which was normal. She use 4 L of oxygen by nasal cannula and saturates from 85-90%. Had viral testing negative for COVID-[address] scan of the chest show centrilobular emphysema and mild cardiomegaly. She was treated with Lasix IV and IV steroids as well as bronchodilator. A1c elevated today and I will restart her on metformin. For he r COPD I will send her again to pulmonology. She does have depression that has been stable with SSRIs. Last echocardiogram done December 2022 showing ejection fraction from 50-55%. She denies gaining weight and is compliant with medications. Will have nt-proBNP 4 follow her congestive heart failure. She does see Cardiology for this matter. [facility] Medical History (Updated 05/20/23 @ 11:21 by Analisa Chavez MD) Mild recurrent major depression Hospital discharge follow-up Severe chronic obstructive pulmonary disease Diabetes Mitral regurgitation Chest pain Lumbar degenerative disc disease Right lower lobe pneumonitis Congestive heart failure Acute and chronic respiratory failure with hypoxia Respiratory failure with hypoxia and hypercapnia Atelectasis, right Hypertensive emergency Pulmonary hypertension Osteoporosis Essential hypertension Supraventricular tachycardia Nonischemic cardiomyopathy Non-rheumatic mitral regurgitation Tobacco abuse Depression Anxiety Chronic respiratory failure HFrEF (heart failure with reduced ejection fraction) KELLIE (obstructive sleep apnea) HLD (hyperlipidemia) HTN (hypertension) Surgical History H/O hysterectomy for benign disease History of total abdominal hysterectomy Bilateral ankle fractures Family History Father No problems noted. Mother Liver cancer Hypertension Social History Household Members: None Household Members Other:: 1 Housing: Apartment Do you presently have visiting nurse or other home services: No Unable to assess alcohol history related to: Unable to respond Alcohol intake: never Patient Tobacco Use Status: Former Tobacco user Tobacco use type: Cigarette Cigarettes Per Day: 4 Years Smoked: 50 +/- e-Cigarette/Vaping Use: Never Used Second Hand Smoke Exposure: No Advance Directives Date on File: 04/30/20 service: No Current occupational status: disabled Cognitive needs: Yes Hearing needs: No Vision needs: No Questionnaire PHQ-9 Over the last 2 weeks, how often have you been bothered by any of the following problems? 1. Little interest or pleasure in doing things: several days 2. Feeling down, depressed, or hopeless: several days 3. Trouble falling or staying asleep, or sleeping too much: several days 4. Feeling tired or having little energy: several days 5. Poor appetite or overeating: several days 6. Feeling bad about yourself - or that you are a failure or have let yourself or your family down: not at all 7. Trouble concentrating on things, such as reading the newspaper or watching t elevision: not at all 8. Moving or speaking so slowly that other people could have noticed. Or the opposite - being so fidgety or restless that you have been moving around a lot more than usual: not at all 9. Thoughts that you would be better off or of hurting yourself in some way: not at all Total score: 5 Depression Screening Interpretation: Positive Depression Screening Follow-up: Existing condition and In treatment Depression Screening Done: Yes 71912 - PHQ-9 Billing: Yes Source: Developed by Drs. Dennis Zayas, Cora Conrad, Sacha Rayo and colleagues, with an educational antonia from [employer]. Thrive Questionnaire Date Thrive assessed: 05/20/23 I am a: Patient What is your living situation today?: I have a steady place to live Within the past 12 months, did the food you bought not last and you didn't have the money to get more?: Never true Within the past 12 months, did you worry whether your food would run out before you got money to buy more?: Never true Do you have trouble paying for medicines?: No Do you have trouble getting transportation to medical appointments?: No Do you have trouble paying your heating and electricity bill?: No Do you have trouble taking care of your child, family member or friend?: No Do you have trouble with day-to-day activities such as bathing, preparing meals, shopping, managing finances, etc.?: Yes Are you currently unemployed and looking for a job?: No Are you interested in more education?: No Please select the resources that you would like help with: None Currently or been in a relationship where the following occur: no concerns reported AUDIT C Alcohol Use Questionnaire (AUDIT-C) 1. How often do you have a drink containing alcohol?: Never Total Score: 0 DIANELYS-7 AMB Questionnaire DIANELYS-7 Date DIANELYS - 7 assessed: 05/20/23 Feeling nervous, anxious, or on edge: 1 = Several days Not being able to stop or control worryin = Not at all Worrying too much about different things: 1 = Several days Trouble relaxin = Not at all Being so restless that it is hard to sit still: 0 = Not at all Becoming easily annoyed or irritable: 1 = Several days Feeling afraid as if something awful might happen: 0 = Not at all Total DIANELYS-7 score (0-4 normal; 5-9 mild; 10-14 moderate; 15-21 severe): 3 Source: Developed by Drs. Dennis Zayas, Cora Conrad, Sacha Rayo and colleagues, with an educational antonia from [employer]. DIANELYS-7 Assessment Billing DIANELYS-7 Assessment Tool: DIANELYS-7 Assessment 26025 Review of Systems Const All systems reviewed & are unremarkable except as noted in HPI and below Eyes Reports no additional complaints, Denies change in vision and Denies other visual disturbances Card Denies chest pain at rest, Denies chest pain with activity, Denies edema, Denies irregular heart rhythm, Denies claudication, Denies dyspnea, Denies dyspnea on exertion, Denies orthopnea, Denies paroxysmal nocturnal dyspnea and Denies slow heart rate Resp Denies cough, Denies dyspnea and Denies dyspnea on exertion GI Denies abdominal pain, Denies change in bowel habits, Denies excessive flatus, Denies nausea and Denies vomiting Denies urinary incontinence, Denies urinary hesitancy and Denies urinary urgency Musc Denies atrophy, Denies deformity and Denies limited range of motion Physical exam (Primary Care) Vital Signs: Last Vital Signs Pulse 85 05/20/23 09:40 BP 130/110 H 05/20/23 09:40 Pulse Ox 73 L 05/20/23 09:40 Oxygen Delivery Method Nasal Cannula 05/20/23 09:40 BMI result Body Mass Index 27.5 Tobacco/Smoking Status: Tobacco use Status Tobacco use date assessed 05/20/23 05/20/23 09:48 Patient Tobacco Use Status Former Tobacco user 05/20/23 09:42 Tobacco use type Cigarette 05/20/23 09:42 e-Cigarette/Vaping Use Never Used 05/20/23 09:42 PHQ-9: PHQ-9 Score PHQ-9: Total score 5 05/20/23 10:11 Depression Screening Interpretation: Positive Depression Screening Follow-up: Existing condition and In treatment Thrive Assessment: Date of Thrive Assessment Date Thrive assessed 05/20/23 05/20/23 09:48 Currently or been in a relationship where the following occur: no concerns reported HENUT Other: nasal canula in place Eyes General: appearance normal, both eyes and all related structures Eyelids: Yes eyelids normal Conjunctivae: conjunctivae normal Neck Neck: Yes normal visual inspection and Yes supple Resp Effort & Inspection: normal respiratory effort Auscultation: clear to auscultation bilaterally Cardio Jugular venous distension: no JVD Rate: regular rate Rhythm: regular rhythm Heart sounds: S1 normal heart sound present and S2 normal heart sound present Extrem General: Yes full ROM Office Procedures Flu Questionnaire Does the patient have a severe egg allergy?: No Results AMB Hemoglobin A1c AMB Hemoglobin A1c 7.3 % Last Edit by IVANIA Polanco on 05/20/23 10:1 6 Immunizations flu vacc [id number] 6mos up(PF) 60 mcg(15 mcgx4)/0.5 mL IM syringe Performing Provider: Analisa Chavez MD [facility] Documented (not given) by: IVANIA Polanco on 05/20/23 10:16 Reason Not Given: Not Given Results Reviewed Results Reviewed: Laboratory Last Values Hgb A1c (Clinic) 7.3 % (4.0-6.0) H 05/20/23 10:11 Assessment and Plan Assessment & Plan (1) Hospital discharge follow-up: Code(s): Z09 - Encounter for follow-up examination after completed treatment for conditions other than malignant neoplasm Plan: Discharge 05/17/2023 due to COPD exacerbation which she feels markedly improved. Chest CT was done showing Centrilobular emphysema and mild cardiomegaly. She was treated with Lasix IV and IV steroids which improvement. Had antibiotics. (2) Severe chronic obstructive pulmonary disease: Code(s): J44.9 - Chronic obstructive pulmonary disease, unspecified Plan: Continue Spiriva. Refer to pulmonology. Continue oxygen. 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 A1c goal is equal or less than 7%. (4) Congestive heart failure: Code(s): I50.9 - Heart failure, unspecified Qualifiers: Heart failure chronicity: acute on chronic Heart failure type: systolic Qualified Code(s): I50.23 - Acute on chronic systolic (congestive) heart failure Plan: Continue carvedilol. Follow-up with Cardiology. The goal is to not gain 5 lb in 1 week. (5) Mild recurrent major depression: Code(s): F33.0 - Major depressive disorder, recurrent, mild Plan: Continue sertraline. Orders: Orders AMB Hemoglobin A1c Today E11.649 - Type 2 diabetes mellitus with hypoglycemia without coma Lipid Panel Today E78.5 - Hyperlipidemia, unspecified Vitamin D 25-OH Total Today E55.9 - Vitamin D deficiency, unspecified Microalbumin, Random (w Creat) Today E11.9 - Type 2 diabetes mellitus without complications Comprehensive [place]. Panel Fast Today I50.23 - Acute on chronic systolic (congestive) heart failure NT-proBNP Today I50.23 - Acute on chronic systolic (congestive) heart failure Influenza [id number] Immunization Today Z23 - Encounter for immunization Referrals Pulmonology Referral J44.9 - Chronic obstructive pulmonary disease, unspecified Medications: New metformin 500 mg PO DAILY 90 days 90 tabs 1RF E11.9 - Type 2 diabetes mellitus without complications Changed From prednisone 5 mg DAILY To prednisone 5 mg PO DAILY 30 days 30 tabs 2RF Refilled losartan 100 mg See Protocol PO DAILY 30 days 60 tabs 2RF Coding Level of Care Code TCM Mod MDM <= 7 Days Diagnoses Hospital discharge follow-up Z09 Severe chronic obstructive pulmonary disease J44.9 Type 2 diabetes mellitus without complication, without long-term current use of insulin E11.9 Diabetes mellitus type: type 2 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
[2023-05-20 09:40] VITALS: BP 130/110; PULSE 85; O2SAT 73; BMI 27.5
[2023-05-20 11:18] VITALS: BP 130/100; PULSE 88
== END 2023-05-20 10:10 | disposition home or self-care (01) ==
PROVIDERS: PCP Internal Medicine; Visit Provider Internal Medicine
DX: J44.9 Chronic obstructive pulmonary disease, unspecified (principal); I50.23 Acute on chronic systolic (congestive) heart failure; F33.0 Major depressive disorder, recurrent, mild; E11.649 Type 2 diabetes mellitus with hypoglycemia without coma; Z09 Encounter for follow-up examination after completed treatment for conditions other than malignant neoplasm
CPT/HCPCS: 83036; 96127; 99214

== ENCOUNTER 2023-05-26 12:32 | Inpatient (IN) | payer OTHER, SELFPAY ==
[2023-05-26] VITALS (11 sets, daily range): BP systolic 132–208; BP diastolic 84–134; PULSE 84–97; RESP 14–22; TEMP 36.7–37.2; O2SAT 90–96; BMI 27.5
--- NOTE | ~2023-05-26 | XR_ITS ---
EXAMINATION: XR CHEST CLINICAL INFORMATION: Reason for Exam SOB COMPARISON: Chest radiograph 05/17/2023 TECHNIQUE: One view of the chest FINDINGS: Lines and tubes: EKG leads overlie the patient. Emphysema. No pleural effusion. No pneumothorax. Mildly enlarged cardiac silhouette unchanged. Enlarged ovarian arteries which can be seen in the setting of pulmonary hypertension. XR/XR chest 1V IMPRESSION: 1. Emphysema. 2. Mildly enlarged cardiac silhouette unchanged. 3. Enlarged pulmonary arteries which can be seen in the setting of pulmonary hypertension.
--- NOTE | ~2023-05-26 | XR_ITS ---
EXAMINATION: XR CHEST CLINICAL INFORMATION: Shortness of breath COMPARISON: 05/26/2023 times stamp 12:56 PM and selected priors TECHNIQUE: AP portable semiupright view of the chest was obtained. 2 images, nonstandard positioning FINDINGS: No evidence for pulmonary edema. Normal caliber pulmonary vasculature. Persistent streaky opacities in the lower lungs. No lobar consolidation or effusion. Stable blunting of the left lateral costophrenic angle. Recent 05/14/[address] with severe emphysema and probable mild smoking-related lung disease at the bases. Stable heart and mediastinum with cardiomegaly and vascular ectasia. Recent CT with evidence of pulmonary hypertension. Consider echocardiography. XR/XR chest 1V IMPRESSION: 1. No pulmonary edema. 2. Pulmonary hypertension. Consider echocardiography. 3. Severe emphysema.
--- NOTE | 2023-05-26 12:47 | ECG_ITS ---
Test Reason : SOB Blood Pressure : / mmHG Vent. Rate : 082 BPM Atrial Rate : 082 BPM P-R Int : 128 ms QRS Dur : 124 ms QT Int : 414 ms P-R-T Axes : 068 135 -26 degrees QTc Int : 483 ms Sinus rhythm with occasional Premature ventricular complexes Right bundle branch block Abnormal ECG When compared with ECG of 14-MAY-2023 14:18, Premature ventricular complexes are now Present QRS axis Shifted right Referred By: Ayde Stein Electronically Signed By:Kemar Curry
--- NOTE | 2023-05-26 13:18 | ED.SOB ---
HPI - SOB/Dyspnea General Chief Complaint: Dyspnea Stated Complaint: SOB,HOME O2,LOW 80'S,90% PER EMS Time Seen by Provider: 05/26/23 13:05 Source: patient and EMS Mode of arrival: EMS Limitations: no limitations History of Present Illness HPI Narrative: Emergency room complaining of shortness of breath. Patient has history of COPD and asthma. Patient states that prior to arrival she used 3 nebulization treatments without any relief. When EMS arrived, patient was saturating 80% on her usual 4 L, which she uses at baseline. Patient denies chest pain. Patient denies any worsening lower extremity edema or weight gain. Related Data Home Medications Medication Instructions Recorded Confirmed trazodone 50 mg tablet 100 mg PO BEDTIME PRN Insomnia 03/08/20 05/26/23 furosemide 40 mg tablet (Lasix) 40 mg PO DAILY 04/03/23 05/26/23 albuterol sulfate 90 mcg/actuation 2 puff inhalation Q4-6H PRN 04/30/23 05/26/23 aerosol inhaler (Ventolin HFA) Shortness Of Breath Or Wheezing fluticasone furoate 100 1 inh inhalation DAILY 04/30/23 05/26/23 mcg-vilanterol 25 mcg/dose inhalation powder montelukast 10 mg tablet 10 mg PO BEDTIME 04/30/23 05/26/23 quetiapine 50 mg tablet 50 mg PO BID 04/30/23 05/26/23 sertraline 100 mg tablet 200 mg PO DAILY 04/30/23 05/26/23 tiotropium bromide 18 mcg capsule 1 cap inhalation DAILY 04/30/23 05/26/23 with inhalation device (Spiriva with HandiHaler) Previous Rx's Medication Instructions Recorded folic acid 1 mg tablet 1 mg PO DAILY #90 tabs 09/04/22 carvedilol 25 mg tablet 25 mg PO BID 30 days #60 tabs 05/03/23 spironolactone 25 mg tablet 25 mg PO DAILY 30 days #30 tabs 05/03/23 guaifenesin 600 mg tablet, 600 mg PO BID #14 tabs 05/17/23 extended release 12 hr (Mucinex) ipratropium 0.5 mg-albuterol 3 mg 3 ml inhalation TID #270 mL 05/17/23 (2.5 mg base)/3 mL nebulization soln losartan 50 mg tablet 100 mg PO DAILY 30 days #60 tabs 05/20/23 metformin 500 mg tablet 500 mg PO DAILY 90 days #90 tabs 05/20/23 prednisone 5 mg tablet 5 mg PO DAILY 30 days #30 tabs 05/20/23 Allergies Allergy/AdvReac Type Severity Reaction Status Date / Time nicotine [Nicotine] Allergy Mild ITCHING Verified 05/20/23 09:59 WITH THE PATCHES topiramate Allergy Mild inadequealte Verified 05/20/23 09:59 response Review of Systems Review of Systems: Constitutional : No Weight loss, No Fever, No Chills, No Night Sweats, No Fatigue, No Malaise ENT/Mouth : No Hearing loss, No Ear Pain, No Nasal Congestion, No Sinus Pain, No Hoarseness, No sore throat, No Rhinorrhea, No Swallowing Difficulty Eyes: No Eye Pain, No Swelling, No Redness, No Foreign Body, No Discharge, No Vision Changes Cardiovascular : No Chest Pain, no orthopnea no edema no palpitations Respiratory : Complaining of chronic cough at baseline, no sputum production, complaining of wheezing and shortness of breath worse with exertion. Gastrointestinal : No Nausea, No Vomiting, No Diarrhea, No Constipation, No abdominal Pain, No Hematochezia, No Melena Genitourinary : no irregular bleeding, No Dysuria, No Urinary Frequency, No Hematuria, No Urinary Incontinence, No Urgency, No Flank Pain, No Urinary Flow Changes, No Hesitancy Musculoskeletal : No joint pain, No Myalgias, No Joint Swelling Skin : No Skin Lesions, No rash Neuro : No Weakness, No Numbness, No Paresthesias, No Loss of Consciousness, No Dizziness, No Headache Psych : No Anxiety/Panic, No Depression, No SI/HI/AH/VH, No Social Issues, Heme/Lymph: No Bruising, No Bleeding,No Lymphadenopathy Endocrine : No Polyuria, No Polydipsia, No Temperature Intolerance [facility] Past Medical History Medical History Congestive heart failure Mild recurrent major depression Hospital discharge follow-up Severe chronic obstructive pulmonary disease Diabetes Mitral regurgitation Chest pain Lumbar degenerative disc disease Right lower lobe pneumonitis Congestive heart failure Acute and chronic respiratory failure with hypoxia Respiratory failure with hypoxia and hypercapnia Atelectasis, right Hypertensive emergency Pulmonary hypertension Osteoporosis Essential hypertension Supraventricular tachycardia Nonischemic cardiomyopathy Non-rheumatic mitral regurgitation Tobacco abuse Depression Anxiety Chronic respiratory failure HFrEF (heart failure with reduced ejection fraction) KELLIE (obstructive sleep apnea) HLD (hyperlipidemia) HTN (hypertension) Surgical History H/O hysterectomy for benign disease History of total abdominal hysterectomy Bilateral ankle fractures Family History Family History Father No problems noted. 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 home services: No Unable to assess alcohol history related to: Unable to respond Alcohol intake: never Patient Tobacco Use Status: Former Tobacco user Tobacco use type: Cigarette Cigarettes Per Day: 4 Years Smoked: 50 +/- Smoked in Last 30 Days: Yes e-Cigarette/Vaping Use: Never Used Second Hand Smoke Exposure: No Use of substances other than those prescribed or required for medical reasons: No Advance Directives: Yes Advance Directives on File: Yes Advance Directives Date on File: 04/30/20 service: No Current occupational status: disabled Cognitive needs: Yes Hearing needs: No Vision needs: No Physical Exam Vital Signs: Vital Signs: Last Vital Signs Temp 98.0 F 05/26/23 19:18 Pulse 86 05/26/23 19:18 Resp 17 05/26/23 19:48 BP 136/84 05/26/23 19:18 Pulse Ox 90 L 05/26/23 19:18 O2 Del Method BiPAP 05/26/23 19:18 O2 Flow Rate 4 05/26/23 15:59 Oxygen Flow Rate 4 05/26/23 12:42 BMI result Body Mass Index 27.5 Const: Other: Appearance: Alert. Oriented X3. No acute distress. Eyes: Pupils equal, round and reactive to light. ENT: Pharynx normal. Neck: Normal inspection. Neck supple. No lymph nodes noted. No crepitus CVS: Normal heart rate and rhythm. Pulses normal. Normal S1 and S2 Respiratory: Tachypneic, decreased breath sounds, wheezing Abdomen: Soft and nontender. No rigidity. No distention. Skin: Skin warm and dry. Normal skin color. Normal skin turgor. Extremities: No lower extremity edema. No Lacerations. No Rash Neuro: Oriented X 3. No motor deficit. No sensory deficit. Moving all extremities. No slurred speech. CN 2 through 12 grossly intact Psych: calm, cooperative, normal affect Course Course Course Narrative: -patient receiving ceftriaxone, azithromycin magnesium and Solu-Medrol and a breathing treatment. At this time, sepsis not suspected, no episodes of hypotension. Patient has history of CHF, x-rays and labs have not been done yet. Medications Administered Discontinued Medications Generic Name Dose Route Start Last Admin Trade Name Freq PRN Reason Stop Dose Admin Albuterol Sulfate 2.5 mg/ 0 mg 05/26/23 13:25 05/26/23 13:27 Albuterol/Ipratropium 3 ml INHALE 05/26/23 13:26 1 dose ONCE ONE Administration Albuterol Sulfate 7.5 mg/ 0 mg 05/26/23 18:44 05/26/23 18:45 Albuterol/Ipratropium 3 ml INHALE 05/26/23 18:45 1 each ONCE ONE Administration Furosemide 40 mg 05/26/23 16:52 05/26/23 17:46 Furosemide 40 Mg/4 Ml Vial IVPUSH 05/26/23 16:53 40 mg STAT STA Administration Protocol Furosemide 60 mg 05/26/23 18:45 05/26/23 18:31 Furosemide 40 Mg/4 Ml Vial IVPUSH 05/26/23 18:46 60 mg ONCE ONE Administration Protocol Magnesium Sulfate 2 gm in 50 mls @ 25 mls/hr 05/26/23 13:14 05/26/23 17:21 Magnesium Sulfate/H2o IV 05/26/23 15:13 Infused ONCE ONE Infusion Ceftriaxone Sodium 1 gm/ 50 mls @ 100 mls/hr 05/26/23 13:15 05/26/23 16:43 Sodium Chloride IV 05/26/23 13:44 Infused ONCE ONE Infusion Azithromycin 500 mg/ Sodium 250 mls @ 125 mls/hr 05/26/23 13:15 05/26/23 19:00 Chloride IV 05/26/23 15:14 Infused ONCE ONE Infusion Methylprednisolone Sodium Succinate 125 mg 05/26/23 13:14 05/26/23 15:16 Methylprednisolone Sod Succ 125 Mg/2 Ml Vial IVPUSH 05/26/23 13:15 125 mg ONCE ONE Administration Nitroglycerin 1 inch 05/26/23 18:23 05/26/23 18:15 Nitroglycerin 2 % Oint 1 Gm Packet TRANSDERMA 05/26/23 18:24 1 inch ONCE ONE Administration Medical Decision Making Medical Decision Making [facility] Narrative: -my interpretation of labs: No hematology and chemistry, BNP 784, twice the normal BNP level for the patient. Troponin negative. -my interpretation of chest x-ray, mild pulmonary vascular congestion. No infiltrate -patient was given a nebulization treatment, Solu-Medrol, magnesium, and also Lasix IV -patient's oxygen saturation dropped to 87% on 4 L -at 18:15 while patient was waiting to be be admitted, patient had an onset of flash pulmonary edema. Patient's blood pressure increased to 220 systolic, patient became significantly short of breath, gurgly, diaphoretic -patient was started on BiPAP, given 1 in of nitro paste and 60 mg of Lasix. -discussed with the medicine team to hold admission for now, we will keep the patient on BiPAP for couple of hours and then reassess. -after 2 hours of BiPAP, patient was weaned off, patient on 5 L, saturating 89-92%. Patient feeling much better. -discussed the patient with Dr. Blackburn, patient being admitted. Differential Diagnosis Differential Diagnoses: The differential diagnosis associated with the presentation includes (CHF exacerbation, pneumonia, asthma, chronic lung disease) Admission/Observation Consideration of admission/observation: Escalation of care including admission/observation considered Consult Healthcare Provider Management of the patient was discussed with: Hospitalist Lab Data [facility] Lab Attestation statement: I reviewed the patient's lab results. 05/26/23 15:11 05/26/23 15:11 Labs: Lab Results 05/26/23 05/26/23 05/26/23 Range/Units 14:35 15:11 15:18 WBC 7.1 (4.8-10.8) X10*3/uL RBC 3.73 L (4.20-5.50) X10*6/uL Hgb 10.4 L (12.0-16.0) g/dl Hct 32.6 L (37.0-47.0) % MCV 87.4 (80.0-98.0) fL MCH 27.9 (27.0-33.0) pg MCHC 31.9 (31.0-35.0) g/dl RDW 15.3 (11.0-16.0) % Plt Count 175 (160-400) X10*3/uL MPV 10.1 (9.4-12.3) fL Immature Gran % (Auto) 0.6 H (0.0-0.4) % Neut % (Auto) 71.3 (45-73) % Lymph % (Auto) 19.9 L (20-40) % [place] % (Auto) 6.8 (2-11) % Eos % (Auto) 1.3 (0-4) % Baso % (Auto) 0.1 (0-2) % Lymph # (Auto) 1.4 (1.2-4.9) X10*3/uL [place] # (Auto) 0.5 (0.1-1.2) X10*3/uL Eos # (Auto) 0.1 (0.0-0.4) X10*3/uL Baso # (Auto) 0.0 (0.0-0.2) X10*3/uL Abs Immat Gran (auto) 0.04 H (0.00-0.03) X10*3/uL Absolute Neuts (auto) 5.1 (2.0-8.3) x10*3/uL Absolute Nucleated RBC 0.000 (0.0-0.012) X10*3/uL Nucleated RBC % (auto) 0.0 (0.0-0.2) /100WBC VBG pH 7.36 (7.32-7.43) VBG pCO2 56 mmHg VBG pO2 40 mmHg VBG HCO3 33 H (22-26) mmol/L VBG O2 Saturation 65.0 % VBG Base Excess 6.4 mmol/L Sodium 142 (135-145) mmol/L Potassium 3.9 (3.3-5.1) mmol/L Chloride 106 (96-108) mmol/L Carbon Dioxide 32 H (22-29) mmol/L Anion Gap 8 L (12-20) BUN 10 (9-16) mg/dL Creatinine 0.85 (0.5-1.4) mg/dL Estim Creat Clear Calc 55.5 Estimated GFR > 60 Random Glucose 102 (60-115) mg/dL Calcium 9.4 (8.4-10.2) mg/dL Magnesium 2.0 (1.6-2.6) mg/dL Total Bilirubin 0.4 (0.0-1.0) mg/dL AST 16 (5-31) U/L ALT 19 (0-31) U/L Alkaline Phosphatase 86 (39-117) U/L Troponin I High Sens 15.0 (<3.5-17.0) ng/L B-Natriuretic Peptide 784 H (<100) pg/mL Total Protein 6.7 (6.5-8.0) g/dL Albumin 3.6 (3.5-5.0) g/dL Urine Color Urine Appearance Urine pH (5.0-9.0) Ur Specific [place] (1.005-1.025) Urine Protein (Neg-Trace) mg/dL Urine Glucose (UA) (Negative) mg/dL Urine Ketones (Negative) mg/dL Urine Blood (Negative) Urine Nitrite (Negative) Ur Leukocyte Esterase (Negative) Urine RBC (0-2) /HPF Urine WBC (0-5) /HPF Ur Squamous Epith Cells (0-2) /HPF Urine Bacteria (None Seen) Hyaline Casts (0-2) /LPF COVID-19 (ANEL) Negative (Negative) COVID-19 Clin Com See Note Influenza Type A (ELGIN) Negative (Negative) Influenza Type B (ELGIN) Negative (Negative) Influenza A & B Note See Note 05/26/23 Range/Units 17:57 WBC (4.8-10.8) X10*3/uL RBC (4.20-5.50) X10*6/uL Hgb (12.0-16.0) g/dl Hct (37.0-47.0) % MCV (80.0-98.0) fL MCH (27.0-33.0) pg MCHC (31.0-35.0) g/dl RDW (11.0-16.0) % Plt Count (160-400) X10*3/uL MPV (9.4-12.3) fL Immature Gran % (Auto) (0.0-0.4) % Neut % (Auto) (45-73) % Lymph % (Auto) (20-40) % [place] % (Auto) (2-11) % Eos % (Auto) (0-4) % Baso % (Auto) (0-2) % Lymph # (Auto) (1.2-4.9) X10*3/uL [place] # (Auto) (0.1-1.2) X10*3/uL Eos # (Auto) (0.0-0.4) X10*3/uL Baso # (Auto) (0.0-0.2) X10*3/uL Abs Immat Gran (auto) (0.00-0.03) X10*3/uL Absolute Neuts (auto) (2.0-8.3) x10*3/uL Absolute Nucleated RBC (0.0-0.012) X10*3/uL Nucleated RBC % (auto) (0.0-0.2) /100WBC VBG pH (7.32-7.43) VBG pCO2 mmHg VBG pO2 mmHg VBG HCO3 (22-26) mmol/L VBG O2 Saturation % VBG Base Excess mmol/L Sodium (135-145) mmol/L Potassium (3.3-5.1) mmol/L Chloride (96-108) mmol/L Carbon Dioxide (22-29) mmol/L Anion Gap (12-20) BUN (9-16) mg/dL Creatinine (0.5-1.4) mg/dL Estim Creat Clear Calc Estimated GFR Random Glucose (60-115) mg/dL Calcium (8.4-10.2) mg/dL Magnesium (1.6-2.6) mg/dL Total Bilirubin (0.0-1.0) mg/dL AST (5-31) U/L ALT (0-31) U/L Alkaline Phosphatase (39-117) U/L Troponin I High Sens (<3.5-17.0) ng/L B-Natriuretic Peptide (<100) pg/mL Total Protein (6.5-8.0) g/dL Albumin (3.5-5.0) g/dL Urine Color Yellow Urine Appearance Clear Urine pH 6.5 (5.0-9.0) Ur Specific [place] 1.010 (1.005-1.025) Urine Protein Negative (Neg-Trace) mg/dL Urine Glucose (UA) Negative (Negative) mg/dL Urine Ketones Negative (Negative) mg/dL Urine Blood Negative (Negative) Urine Nitrite Negative (Negative) Ur Leukocyte Esterase Moderate (2+) H (Negative) Urine RBC 0-2 (0-2) /HPF Urine WBC 11-20 H (0-5) /HPF Ur Squamous Epith Cells 0-2 (0-2) /HPF Urine Bacteria None Seen (None Seen) Hyaline Casts 0-2 (0-2) /LPF COVID-19 (ANEL) (Negative) COVID-19 Clin Com Influenza Type A (ELGIN) (Negative) Influenza Type B (ELGIN) (Negative) Influenza A & B Note Independent Interpretation I performed an independent interpretation of an: EKG (My interpretation of EKG: Normal sinus rhythm, heart rate 82, no ST segment depression or elevation, incomplete right bundle-branch block, occasional PVCs, QTC 483) and Plain X-Ray Radiology Impression Discussion of test interpretation with radiology: I have reviewed the radiologist's reading. Radiologist Impression: FINDINGS: Lines and tubes: EKG leads overlie the patient. Emphysema. No pleural effusion. No pneumothorax. Mildly enlarged cardiac silhouette unchanged. Enlarged ovarian arteries which can be seen in the setting of pulmonary hypertension. XR/XR chest 1V IMPRESSION: 1. Emphysema. 2. Mildly enlarged cardiac silhouette unchanged. 3. Enlarged pulmonary arteries which can be seen in the setting of pulmonary hypertension. Independent Historian Clinical information obtained from an independent historian. History obtained from or confirmed by: EMS Critical Care Time Critical Care Time Critical Care Time: Yes Total Critical Care Time: 90 Attestation: I have personally provided critical care time. Time includes review of lab data, radiology results, discussion with consultants, and monitoring for potential decompensation. Intervention performed as documented. Discharge Plan Discharge Clinical Impression: CHF (congestive heart failure), Chronic lung disease, Flash pulmonary edema Patient Disposition: Admitted As Inpatient
[2023-05-26] MEDS: Albuterol Sulfate 2.5 MG, Albuterol/Iprat 2.5/0.5MG 3 ML 3 ML INHALE (13:27)
[2023-05-26 15:00] LABS: COVID-19 Test Negative (Negative); IDNOW Serial# 08D9AD1C; IDNOW Serial# 9DB6401D; Influenza A Negative (Negative); Influenza B2 Negative (Negative)
[2023-05-26] MEDS: methylPREDNISolone Sod Succ 125 MG/2 ML VIAL IVPUSH (15:16)
[2023-05-26] MEDS: Magnesium Sulfate/H2O 2 GM/50 ML PIGGYBACK IV (15:16)
[2023-05-26 15:19] LABS: MANUAL DIFF FLAG NO
[2023-05-26 15:23] LABS: Basophils Percent Auto 0.1 % (0-2); Eosinophils Absolute Auto 0.1 X10*3/uL (0.0-0.4); Eosinophils Percent Auto 1.3 % (0-4); Hematocrit 32.6 % (37.0-47.0); Hemoglobin 10.4 g/dl (12.0-16.0); Imm Gran Abs Auto 0.04 X10*3/uL (0.00-0.03); Imm Gran Pct Auto 0.6 % (0.0-0.4); Lymphocytes Absolute Auto 1.4 X10*3/uL (1.2-4.9); Lymphocytes Percent Auto 19.9 % (20-40); Mean Corpuscular HGB Conc 31.9 g/dl (31.0-35.0); Mean Corpuscular Hemoglobin 27.9 pg (27.0-33.0); Mean Corpuscular Volume 87.4 fL (80.0-98.0); Mean Platelet Volume 10.1 fL (9.4-12.3); Monocytes Absolute Auto 0.5 X10*3/uL (0.1-1.2); Monocytes Percent Auto 6.8 % (2-11); Neutrophils Absolute Auto 5.1 x10*3/uL (2.0-8.3); Neutrophils Percent Auto 71.3 % (45-73); Platelet Count 175 X10*3/uL (160-400); Red Blood Count 3.73 X10*6/uL (4.20-5.50); Red Cell Distribution Width 15.3 % (11.0-16.0); White Blood Count 7.1 X10*3/uL (4.8-10.8)
[2023-05-26 15:24] LABS: VBG Base Excess 6.4 mmol/L; VBG HCO3 33 mmol/L (22-26); VBG pCO2 56 mmHg; VBG pH 7.36 (7.32-7.43); VBG pO2 40 mmHg
[2023-05-26 15:25] LABS: Venous Blood Gas Refer to POC result
--- NOTE | 2023-05-26 15:26 | PC.NURSE ---
iv inserted via ultrasound. difficult stick. medical reception specialist delay
[2023-05-26 15:38] LABS: Alanine Aminotransferase 19 U/L (0-31); Albumin Level 3.6 g/dL (3.5-5.0); Alkaline Phosphatase 86 U/L (39-117); Anion Gap 8 (12-20); Aspartate Amino Transferase 16 U/L (5-31); Bilirubin Total 0.4 mg/dL (0.0-1.0); Blood Urea Nitrogen 10 mg/dL (9-16); Calcium 9.4 mg/dL (8.4-10.2); Carbon Dioxide 32 mmol/L (22-29); Chloride 106 mmol/L (96-108); Creatinine Clr Calc Pharmacy 55.5; Estimated Glomerular Filt Rate > 60; Glucose Random 102 mg/dL (60-115); Potassium 3.9 mmol/L (3.3-5.1); Sodium 142 mmol/L (135-145); Total Protein 6.7 g/dL (6.5-8.0)
[2023-05-26 15:44] LABS: B Type Natriuretic Peptide 784 pg/mL (<100)
--- NOTE | 2023-05-26 15:52 | PC.NURSE ---
no BC order in, MD notified. No order needed at this time per MD. Will hang ABX per MAR
[2023-05-26] MEDS: cefTRIAXone sodium 1 GM in 0.9 % Sodium Chloride 50 ML IV (15:57)
[2023-05-26] MEDS: Azithromycin 500 MG in 0.9 % Sodium Chloride 250 ML 125 MG IV (16:46)
[2023-05-26] MEDS: Furosemide 40 MG/4 ML VIAL IVPUSH (17:46)
[2023-05-26 18:06] LABS: Appearance Urine Clear; Color Urine Yellow; Glucose Urine UA Negative (Negative); Leukocyte Esterase Urine Moderate (2+) (Negative); Nitrite Urine Negative (Negative); PH 6.5 (5.0-9.0); UMIC TRIGGER UACC YES; Urine Blood Negative (Negative); Urine Ketones Negative (Negative); Urine Protein Negative (Neg-Trace)
[2023-05-26 18:11] LABS: Bacteria Urine None Seen (None Seen); Hyaline Casts Urine 0-2 /LPF (0-2); RBC Urine 0-2 /HPF (0-2); Squamous Epithelial Cell Urine 0-2 /HPF (0-2); UACC Culture Trigger YES
[2023-05-26] MEDS: Nitroglycerin 2 % Oint 1 GM Packet 1 INCH TRANSDERMA (18:15)
--- NOTE | 2023-05-26 18:23 | PC.NURSE ---
pt bed changed, purewick set up, lasix given per mar 40mg. after, pt reported feeling very hot, was increasingly short of breath , reported new headache, and BP was elevated 208/135. MD notified and brought to room. Pt saturation was at first difficult to obtain, a non-rebreather was put on and saturation was found to be 100%. Respiratory was called, and pt placed on BiPap and is satting 94% at 28% O2, 12/5, RR 20. Pt appears much more comfortable. BP rechecked, 163/101
[2023-05-26] MEDS: Furosemide 40 MG/4 ML VIAL 60 MG IVPUSH (18:31)
[2023-05-26] MEDS: Albuterol Sulfate 7.5 MG, Albuterol/Iprat 2.5/0.5MG 3 ML 3 ML INHALE (18:45)
--- NOTE | 2023-05-26 18:55 | PHA.MEDREC ---
Pharmacy Consult ? Medication Reconciliation Pharmacy has completed the medication reconciliation. Confirmed patient medications with patient through Club Room Attendant. patient says she last took her medication 03/25 in the morning. 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
--- NOTE | 2023-05-26 19:31 | PC.NURSE ---
This specifications writer assumed care of this Pt at 1900. Pt appears to be sleeping, awakens with verbal stimuli. Pt A&Ox3, denies any pain. States feeling much better . Pt on BIPAP, SpO2 90%, RR 14, lung sounds diminished. Pt updated on plan of care. No apparent distress noted.
[2023-05-26] MEDS: Albuterol/Iprat 2.5/0.5MG 3 ML AMPUL.NEB INHALE (23:22)
[2023-05-27] VITALS (15 sets, daily range): BP systolic 125–179; BP diastolic 68–115; PULSE 77–113; RESP 13–21; TEMP 36–37.6; O2SAT 87–96; BMI 29.5
[2023-05-27] MEDS: methylPREDNISolone Sod Succ 125 MG/2 ML VIAL 60 MG IVPUSH (00:23)
[2023-05-27] MEDS: 0.9 % Sodium Chloride Flush 3 ML SYRINGE IVFLUSH ×4 (00:23→22:34)
--- NOTE | 2023-05-27 01:24 | MHC.EDTECH ---
I assuming care as patient service technician pst @1AM
--- NOTE | 2023-05-27 01:28 | P.HPHOSP_ITS ---
History of Present Illness Date of Service: 05/26/23 Attending physician on admission: Brenda Romero Chief Complaint: Shortness of breath. Paola Adhikari is a 62 years old woman with a past medical history significant for COPD on home oxygen 2-3 liters/minute via nasal cannula (on prednisone daily), systolic congestive heart failure (EF 30-35%), pulmonary hypertension, anxiety, depression, essential hypertension and KELLIE presents to the emergency department complaining of worsening shortness of breath. She is ongoing tobacco smoker. She denied any headache, palpitations, dizziness or chest pain. Does c/o cough. There is no fever or shortness reported. She denied any acute gastrointestinal or genitourinary symptoms. She denied edema to the lower extremities. Patient denied illicit drug use or alcohol abuse. She has had multiple hospitalizations due to respiratory failure and COPD exacerbation. Patient was recently discharged from the hospital after she was admitted with hypoxic respiratory failure. In the ED, she was found to have low oxygen saturation, 80% on 4 liters/minute supplemental oxygen. Blood workup is basically unremarkable except for chronic stable anemia, elevated CO2 and elevated BNP (784). CXR showed finding consistent with emphysema, cardiomegaly and enlarged pulmonary arteries She required respiratory support with BiPAP, multiple brain therapist, Solu- Medrol and IV Lasix. Review of Systems 2 Review of Systems: All 12 systems were reviewed and normal except as noted in HPI. [facility] Medical History Congestive heart failure Mild recurrent major depression Hospital discharge follow-up Severe chronic obstructive pulmonary disease Diabetes Mitral regurgitation Chest pain Lumbar degenerative disc disease Right lower lobe pneumonitis Congestive heart failure Acute and chronic respiratory failure with hypoxia Respiratory failure with hypoxia and hypercapnia Atelectasis, right Hypertensive emergency Pulmonary hypertension Osteoporosis Essential hypertension Supraventricular tachycardia Nonischemic cardiomyopathy Non-rheumatic mitral regurgitation Tobacco abuse Depression Anxiety Chronic respiratory failure HFrEF (heart failure with reduced ejection fraction) KELLIE (obstructive sleep apnea) HLD (hyperlipidemia) HTN (hypertension) Family History Father No problems noted. Mother Liver cancer Hypertension Surgical History H/O hysterectomy for benign disease History of total abdominal hysterectomy Bilateral ankle fractures Social History Household Members: None Household Members Other:: 1 Housing: Apartment Do you presently have visiting nurse or other home services: No Unable to assess alcohol history related to: Unable to respond Alcohol intake: never Patient Tobacco Use Status: Former Tobacco user Tobacco use type: Cigarette Cigarettes Per Day: 4 Years Smoked: 50 +/- Smoked in Last 30 Days: Yes e-Cigarette/Vaping Use: Never Used Second Hand Smoke Exposure: No Use of substances other than those prescribed or required for medical reasons: No Advance Directives: Yes Advance Directives on File: Yes Advance Directives Date on File: 04/30/20 service: No Current occupational status: disabled Cognitive needs: Yes Hearing needs: No Vision needs: No Meds Allergies Allergy/AdvReac Type Severity Reaction Status Date / Time nicotine [Nicotine] Allergy Mild ITCHING Verified 05/20/23 09:59 WITH THE PATCHES topiramate Allergy Mild inadequealte Verified 05/20/23 09:59 response Active Medications: Current Medications Acetaminophen (Acetaminophen 325 Mg Tablet) 650 mg PO Q6H PRN PRN Reason: Pain, Mild (Pain Scale 1-3) Albuterol Sulfate (Albuterol Sulfate 90 Mcg 8 Gm Inhaler) 4 puff INHALE Q3H PRN PRN Reason: Shortness of Breath/Wheezing Heparin Sodium (Porcine) (Heparin Sodium,Porcine 5,000 Unit/Ml Vial) 5,000 unit SUBCUT Q8H WALDEMAR Methylprednisolone Sodium Succinate (Methylprednisolone Sod Succ 40 Mg/Ml Vial) 40 mg IVPUSH Q12H W[place]DEMAR Sodium Chloride (0.9 % Sodium Chloride Flush 3 Ml Syringe) 3 ml IVFLUSH QSHIFT WALDEMAR Last Admin: 05/27/23 00:23 Dose: 3 ml Home Medications Medication Instructions Recorded Confirmed Last Taken Type trazodone 50 mg tablet 100 mg PO BEDTIME PRN Insomnia 03/08/20 05/26/23 05/25/23 History furosemide 40 mg tablet (Lasix) 40 mg PO DAILY 04/03/23 05/26/23 05/25/23 History albuterol sulfate 90 mcg/actuation 2 puff inhalation Q4-6H PRN 04/30/23 05/26/23 05/25/23 History aerosol inhaler (Ventolin HFA) Shortness Of Breath Or Wheezing fluticasone furoate 100 1 inh inhalation DAILY 04/30/23 05/26/23 05/25/23 History mcg-vilanterol 25 mcg/dose inhalation powder montelukast 10 mg tablet 10 mg PO BEDTIME 04/30/23 05/26/23 05/25/23 History quetiapine 50 mg tablet 50 mg PO BID 04/30/23 05/26/23 05/25/23 History sertraline 100 mg tablet 200 mg PO DAILY 04/30/23 05/26/23 05/25/23 History tiotropium bromide 18 mcg capsule 1 cap inhalation DAILY 04/30/23 05/26/23 05/25/23 History with inhalation device (Spiriva with HandiHaler) Physical Exam 2 Vital Signs and Narrative: Vital Signs: Last Vital Signs Temp 98.0 F 05/26/23 19:18 Pulse 84 05/26/23 23:22 Resp 18 05/26/23 23:22 BP 136/84 05/26/23 19:18 Pulse Ox 90 L 05/26/23 19:18 O2 Del Method BiPAP 05/26/23 19:18 O2 Flow Rate 4 05/26/23 15:59 Oxygen Flow Rate 4 05/26/23 12:42 BMI result Body Mass Index 27.5 Constitutional - Awake and Alert, No apparent distress. Nasal cannula in place. HEENT - Atraumatic. Normocephalic. Pupils equally round and reactive to light Heart - RRR. No murmurs Respiratory - Normal lung expansion, Normal respiratory effort, tachypnea. No respiratory distress. Bilateral inspiratory wheezing Gastrointestinal - NT / ND; +BS; No rebound or guarding Extremities - no calf tenderness bilaterally, no swelling Musculoskeletal - Normal inspection, normal ROM Skin - Warm/Dry Neurological - Alert & oriented x3. Psychological - Appropriate affect Results Labs 05/26/23 15:11 05/26/23 15:11 Labs: Laboratory Results - last 24 hr 05/26/23 05/26/23 05/26/23 14:35 15:11 15:18 MCV 87.4 MCH 27.9 MCHC 31.9 RDW 15.3 Plt Count 175 MPV 10.1 Immature Gran % (Auto) 0.6 H Neut % (Auto) 71.3 Lymph % (Auto) 19.9 L [place] % (Auto) 6.8 Eos % (Auto) 1.3 Baso % (Auto) 0.1 Lymph # (Auto) 1.4 [place] # (Auto) 0.5 Eos # (Auto) 0.1 Baso # (Auto) 0.0 Abs Immat Gran (auto) 0.04 H Absolute Neuts (auto) 5.1 Absolute Nucleated RBC 0.000 Nucleated RBC % (auto) 0.0 VBG pH 7.36 VBG pCO2 56 VBG pO2 40 VBG HCO3 33 H VBG O2 Saturation 65.0 VBG Base Excess 6.4 Anion Gap 8 L Estim Creat Clear Calc 55.5 Estimated GFR > 60 Random Glucose 102 Calcium 9.4 Magnesium 2.0 Total Bilirubin 0.4 AST 16 ALT 19 Alkaline Phosphatase 86 B-Natriuretic Peptide 784 H Total Protein 6.7 Albumin 3.6 Urine Color Urine Appearance Urine pH Ur Specific Felch Urine Protein Urine Glucose (UA) Urine Ketones Urine Blood Urine Nitrite Ur Leukocyte Esterase Urine RBC Urine WBC Ur Squamous Epith Cells Urine Bacteria Hyaline Casts COVID-19 (ANEL) Negative COVID-19 Clin Com See Note Influenza Type A (ELGIN) Negative Influenza Type B (ELGIN) Negative Influenza A & B Note See Note 05/26/23 17:57 MCV MCH MCHC RDW Plt Count MPV Immature Gran % (Auto) Neut % (Auto) Lymph % (Auto) [place] % (Auto) Eos % (Auto) Baso % (Auto) Lymph # (Auto) [place] # (Auto) Eos # (Auto) Baso # (Auto) Abs Immat Gran (auto) Absolute Neuts (auto) Absolute Nucleated RBC Nucleated RBC % (auto) VBG pH VBG pCO2 VBG pO2 VBG HCO3 VBG O2 Saturation VBG Base Excess Anion Gap Estim Creat Clear Calc Estimated GFR Random Glucose Calcium Magnesium Total Bilirubin AST ALT Alkaline Phosphatase B-Natriuretic Peptide Total Protein Albumin Urine Color Yellow Urine Appearance Clear Urine pH 6.5 Ur Specific Fel[place] 1.010 Urine Protein Negative Urine Glucose (UA) Negative Urine Ketones Negative Urine Blood Negative Urine Nitrite Negative Ur Leukocyte Esterase Moderate (2+) H Urine RBC 0-2 Urine WBC 11-20 H Ur Squamous Epith Cells 0-2 Urine Bacteria None Seen Hyaline Casts 0-2 COVID-19 (ANEL) COVID-19 Clin Com Influenza Type A (ELGIN) Influenza Type B (ELGIN) Influenza A & B Note Imaging Radiologist's Impressions: Impressions Chest X-Ray 05/26/23 13:08 IMPRESSION: 1. Emphysema. 2. Mildly enlarged cardiac silhouette unchanged. 3. Enlarged pulmonary arteries which can be seen in the setting of pulmonary hypertension. Chest X-Ray 05/26/23 18:50 IMPRESSION: 1. No pulmonary edema. 2. Pulmonary hypertension. Consider echocardiography. 3. Severe emphysema. Assessment and Plan (1) Hypoxic respiratory failure: Status: Acute (2) CHF (congestive heart failure): Status: Acute Plan Paola Adhikari is a 62 years old woman admitted with: * Hypoxemic respiratory failure, likely multifactorial: Acute exacerbation of chronic obstructive pulmonary disease associated with acute on chronic systolic congestive heart failure. Admit to hospitalist service p.o. telemetry. Pulse oximetry. Continue supplemental oxygen to keep oxygen saturation above 90%. Continue bronchodilator therapy. Continue IV steroids Lasix. Continue spironolactone and Coreg. Continue montelukast. * Anxiety and depression. Continue sertraline. Seroquel and trazodone on hold to avoid sedation in the setting of respiratory failure. * Type 2 diabetes mellitus. Blood glucose monitoring before meals at bedtime. Blood glucose control with insulin sliding scale. Diabetic diet. Check HgbA1c. * Essential hypertension. Continue Coreg, spironolactone and losartan. * Obstructive sleep apnea. Not tolerating CPAP. * * Tobacco dependence. Tobacco cessation education. Nicotine patch as needed. DVT prophylaxis: Heparin subQ Code status: Full Patient will need hospitalization for at least 2 midnight for his prostate respiratory failure treatment with supplemental oxygen, bronchodilator therapy and IV steroids. Quality Stroke Does the patient have a stroke diagnosis?: No VTE Prior VTE?: No VTE Risk Level:: Medical - moderate - high VTE Device Contraindication: Treatment Not Indicated VTE Drug Contraindication: N/A - Med Ordered
[2023-05-27 05:41] LABS: Basophils Percent Auto 0.1 % (0-2); Hematocrit 33.9 % (37.0-47.0); Hemoglobin 10.7 g/dl (12.0-16.0); Imm Gran Abs Auto 0.06 X10*3/uL (0.00-0.03); Imm Gran Pct Auto 0.8 % (0.0-0.4); Lymphocytes Absolute Auto 0.6 X10*3/uL (1.2-4.9); Lymphocytes Percent Auto 7.8 % (20-40); MANUAL DIFF FLAG SCAN; Mean Corpuscular HGB Conc 31.6 g/dl (31.0-35.0); Mean Corpuscular Hemoglobin 28.2 pg (27.0-33.0); Mean Corpuscular Volume 89.2 fL (80.0-98.0); Mean Platelet Volume 10.9 fL (9.4-12.3); Monocytes Absolute Auto 0.1 X10*3/uL (0.1-1.2); Monocytes Percent Auto 0.9 % (2-11); Neutrophils Absolute Auto 6.7 x10*3/uL (2.0-8.3); Neutrophils Percent Auto 90.4 % (45-73); Platelet Count 162 X10*3/uL (160-400); Red Cell Distribution Width 14.8 % (11.0-16.0); SCAN SMEAR FLAG 1; White Blood Count 7.4 X10*3/uL (4.8-10.8)
[2023-05-27] MEDS: Heparin Sodium,Porcine 5,000 UNIT/ML VIAL 5000 UNIT SUBCUT ×3 (05:48→22:32)
[2023-05-27] MEDS: Acetaminophen 325 MG TABLET 650 MG PO (05:48)
[2023-05-27 05:57] LABS: Alanine Aminotransferase 21 U/L (0-31); Albumin Level 3.7 g/dL (3.5-5.0); Alkaline Phosphatase 89 U/L (39-117); Anion Gap 17 (12-20); Aspartate Amino Transferase 17 U/L (5-31); Bilirubin Total 0.3 mg/dL (0.0-1.0); Blood Urea Nitrogen 15 mg/dL (9-16); Calcium 9.3 mg/dL (8.4-10.2); Carbon Dioxide 26 mmol/L (22-29); Chloride 105 mmol/L (96-108); Creatinine Clr Calc Pharmacy 46.7; Estimated Glomerular Filt Rate 56; Glucose Random 202 mg/dL (60-115); Potassium 5.5 mmol/L (3.3-5.1); Sodium 142 mmol/L (135-145)
[2023-05-27 06:01] LABS: SLIDE REVIEW VERIFIED
[2023-05-27 07:40] LABS: Glucose, Whole Blood 172 mg/dL (60-115)
[2023-05-27] MEDS: Sertraline HCL 100 MG TABLET 200 MG PO (08:12)
[2023-05-27] MEDS: Furosemide 40 MG TABLET PO (08:13)
[2023-05-27] MEDS: Folic Acid 1 MG TABLET PO (08:13)
[2023-05-27] MEDS: QUEtiapine Fumarate 50 MG TABLET PO ×2 (08:13→22:35)
[2023-05-27] MEDS: carvediloL 25 MG TABLET PO ×2 (08:13→22:35)
[2023-05-27] MEDS: Losartan Potassium 50 MG TABLET 100 MG PO (08:13)
[2023-05-27] MEDS: methylPREDNISolone Sod Succ 40 MG/ML VIAL IVPUSH ×2 (08:13→22:34)
[2023-05-27] MEDS: Spironolactone 25 MG TABLET PO (08:13)
[2023-05-27] MEDS: Albuterol/Iprat 2.5/0.5MG 3 ML AMPUL.NEB INHALE ×4 (08:38→19:48)
--- NOTE | 2023-05-27 09:56 | PM.EVENT ---
Event Note Date of Service: 05/27/23 Event Note: Seen and evaluated this morning Feels better since admission O2 supplement up to 6L w sat close to 90s Continue nebulizer and lasix Wean down O2 as toelrated Time Spent With Patient Time: Total time managing care of this patient today ____ minutes.
--- NOTE | 2023-05-27 11:37 | MHC.CM.PN ---
Addendum entered by Francoise King 05/27/23 11:42: CHARTED IN ERROR Original Note: IMM 05/27. PT LIVES ALONE AT HOME, SELF-CARE, USES A WALKER AND A SHOWER CHAIR, HAS HOME O2 BUT DOES NOT KNOW WHICH COMPANY. HAS A ADVERTISING MATERIAL DISTRIBUTOR 1/HR DAY. HCP ON FILE AND VERIFIED. DCP TBD LIKELY RETURN HOME WITH NEW VNA VS STR. TRANSPORT VIA BLS. PCP: DR. KENJI WOLF
--- NOTE | 2023-05-27 11:42 | MHC.CM.PN ---
PT LIVES ALONE AT HOME, SELF-CARE, USES A WALKER AND A SHOWER CHAIR, HAS HOME O2 BUT DOES NOT KNOW WHICH COMPANY. HAS A FISH TECHNOLOGIST 1/HR DAY. HCP ON FILE AND VERIFIED. DCP TBD LIKELY RETURN HOME WITH NEW VNA VS STR. TRANSPORT VIA BLS. PCP: DR. KENJI WOLF
--- NOTE | 2023-05-27 12:02 | PC.NURSE ---
Patient up from ED at this time
[2023-05-27 12:14] LABS: Glucose, Whole Blood 163 mg/dL (60-115)
[2023-05-27 16:23] LABS: Glucose, Whole Blood 204 mg/dL (60-115)
[2023-05-27] MEDS: Insulin Lispro 100 UNIT/ML 3 ML VIAL SUBCUT (16:49)
[2023-05-27 20:06] LABS: Glucose, Whole Blood 89 mg/dL (60-115)
[2023-05-27] MEDS: Montelukast Sodium 10 MG TABLET PO (22:35)
[2023-05-28 03:40] VITALS: BP 166/101; PULSE 84; RESP 19; TEMP 36.2; O2SAT 98
[2023-05-28] MEDS: Heparin Sodium,Porcine 5,000 UNIT/ML VIAL 5000 UNIT SUBCUT (05:06)
[2023-05-28] MEDS: Losartan Potassium 50 MG TABLET 100 MG PO (05:06)
[2023-05-28] MEDS: carvediloL 25 MG TABLET PO (05:06)
[2023-05-28 06:49] LABS: Anion Gap 13 (12-20); Blood Urea Nitrogen 24 mg/dL (9-16); Calcium 9.4 mg/dL (8.4-10.2); Carbon Dioxide 29 mmol/L (22-29); Chloride 102 mmol/L (96-108); Creatinine Clr Calc Pharmacy 47.4; Estimated Glomerular Filt Rate 54; Glucose Random 117 mg/dL (60-115); Potassium 4.3 mmol/L (3.3-5.1); Sodium 140 mmol/L (135-145)
[2023-05-28 06:51] LABS: B Type Natriuretic Peptide 763 pg/mL (<100)
[2023-05-28 07:33] VITALS: BP 176/96; PULSE 76; RESP 20; TEMP 36.1; O2SAT 99
--- NOTE | 2023-05-28 07:38 | PC.NURSE ---
Assumed care of patient at 19:15 in the evening (05/27). Pt A&Ox4. Primarily Georgian speaking, exchange clerk used at bedside. Pt hypertensive in evening. Pt denied symptoms of HTN, denied pain. Breathing has been consistently even and unlabored without distress on 4L nc per pt-reported baseline. MD orders to reasess BP, done and MD notified; pt still denied symptoms. Covering Dr. Alexey Rmoero written orders to give 0900 lisinopril and coreg early, given. Patient resting in bed on purposeful rounding. Handoff report given 06:45.
[2023-05-28] MEDS: Albuterol/Iprat 2.5/0.5MG 3 ML AMPUL.NEB INHALE ×2 (07:44→12:09)
[2023-05-28 07:45] VITALS: PULSE 77; RESP 18; O2SAT 97
[2023-05-28 07:51] LABS: Glucose, Whole Blood 109 mg/dL (60-115)
[2023-05-28] MEDS: Sertraline HCL 100 MG TABLET 200 MG PO (08:31)
[2023-05-28] MEDS: QUEtiapine Fumarate 50 MG TABLET PO (08:31)
[2023-05-28] MEDS: Folic Acid 1 MG TABLET PO (08:32)
[2023-05-28] MEDS: Spironolactone 25 MG TABLET PO (08:32)
[2023-05-28] MEDS: methylPREDNISolone Sod Succ 40 MG/ML VIAL IVPUSH (08:32)
[2023-05-28] MEDS: Furosemide 40 MG TABLET PO (08:32)
[2023-05-28] MEDS: 0.9 % Sodium Chloride Flush 3 ML SYRINGE IVFLUSH (08:32)
[2023-05-28] MEDS: ondansetron HCL 4 MG/2 ML VIAL IVPUSH (09:41)
--- NOTE | 2023-05-28 11:17 | P.DS_ITS ---
DS: Providers Provider Date of Service: 05/28/23 Date of admission: 05/26/23 23:01 Primary care physician: Analisa Chavez MD Consults: 05/27/23 12:15 Consult to Wound Care Routine Reason for consultation: fungal rash under abd fold DS: Diagnosis Discharge Diagnosis (1) Hypoxic respiratory failure: Status: Acute (2) CHF (congestive heart failure): Status: Acute (3) Flash pulmonary edema: Status: Acute (4) Severe chronic obstructive pulmonary disease: Status: Acute DS: Summary Hospital Course Hospital Course: Admission note HPI Paola Adhikari is a 62 years old woman with a past medical history significant for COPD on home oxygen 2-3 liters/minute via nasal cannula (on prednisone daily), systolic congestive heart failure (EF 30-35%), pulmonary hypertension, anxiety, depression, essential hypertension and KELLIE presents to the emergency department complaining of worsening shortness of breath. She is ongoing tobacco smoker. She denied any headache, palpitations, dizziness or chest pain. Does c/o cough. There is no fever or shortness reported. She denied any acute gastrointestinal or genitourinary symptoms. She denied edema to the lower extremities. Patient denied illicit drug use or alcohol abuse. She has had multiple hospitalizations due to respiratory failure and COPD exacerbation. Patient was recently discharged from the hospital after she was admitted with hypoxic respiratory failure. In the ED, she was found to have low oxygen saturation, 80% on 4 liters/minute supplemental oxygen. Blood workup is basically unremarkable except for chronic stable anemia, elevated CO2 and elevated BNP (784). CXR showed finding consis tent with emphysema, cardiomegaly and enlarged pulmonary arteries She required respiratory support with BiPAP, multiple brain therapist, Solu- Medrol and IV Lasix. Hospital course The patient was admitted for treatment of acute on chronic hypoxic respiratroy failure as a result of pulmonary edema and COPD exacerbation confirmed by elevated BNP and abnormal CXR. Treated with IV Lasix, steroids and nebulizers with good response over the course of hospital stay as she was weaned down to 3L with sat in 98%. advised to quit smoking and agreed to try Chantix. Noted to have night time hypertension. started on Amlodipine bedtime with food response. Amlodipine 5 mg at bedtime for high blood pressures Prednisone for 3 more days Use nebulizer every 4 hours for the next 3 days QUIT smoking; CHANTIX starter dose prescribed, follow with PCP to complete treatment course Time Attestation Discharge coordination time: Greater than 30 minutes Quality: Safe Use of Opioids Does Pt have an Active Cancer Diagnosis on the Problem List?: No Quality: Stroke Does the patient have a stroke diagnosis?: No Physical Exam Vital Signs: Vital Signs: Last Vital Signs Temp 96.9 F 05/28/23 07:33 Pulse 77 05/28/23 07:45 Resp 18 05/28/23 07:45 BP 176/96 H 05/28/23 07:33 Pulse Ox 99 05/28/23 07:33 O2 Del Method Nasal Cannula 05/28/23 07:33 O2 Flow Rate 4 05/28/23 07:33 Oxygen Flow Rate 4 05/26/23 12:42 BMI result Body Mass Index 29.5 Const: Other: Constitutional : Awake, interactive, not in distress Neck : Normal inspection, Supple Cardiovascular : RRR, no JVP, no lower extremity edema Respiratory : good bilateral air entry, no crackles, no wheezes , on 3L NC Gastrointestinal: soft, lax, Normal bowel sounds, Non tender Skin : Warm, Dry Neurological : Alert & oriented x3, No focal deficit DS: Data Data Completed and Pending Completed studies during hospitalization [Text1]: Procedures Assistance with Respiratory Ventilation, Less than 24 Consecutive Hours, Continuous Positive Airway Pressure (04/30/23) Labs on day of discharge: Laboratory Results - last 24 hr 05/27/23 05/27/23 05/27/23 12:08 16:09 20:00 Sodium Potassium Chloride Carbon Dioxide Anion Gap BUN Creatinine Estim Creat Clear Calc Estimated GFR POC Glucose 163 H 204 H 89 Random Glucose Calcium B-Natriuretic Peptide 05/28/23 05/28/23 05:50 07:37 Sodium 140 Potassium 4.3 D Chloride 102 Carbon Dioxide 29 Anion Gap 13 BUN 24 H Creatinine 1.03 Estim Creat Clear Calc 47.4 Estimated GFR 54 POC Glucose 109 Random Glucose 117 H Calcium 9.4 B-Natriuretic Peptide 763 H Preliminary micro results at discharge 05/26/23 18:12 Urine Culture - Preliminary Urine clean catch - Urine queen top Culture too young to evaluate. Imaging Chest x-ray: Radiologist's impression: ITS Impressions Chest X-Ray 05/26/23 13:08 IMPRESSION: 1. Emphysema. 2. Mildly enlarged cardiac silhouette unchanged. 3. Enlarged pulmonary arteries which can be seen in the setting of pulmonary hypertension. Chest X-Ray 05/26/23 18:50 IMPRESSION: 1. No pulmonary edema. 2. Pulmonary hypertension. Consider echocardiography. 3. Severe emphysema. Discharge Plan Discharge Anticipated Discharge Date/Time: 05/28/23 11:06 Patient Disposition: Home, Self-Care Discharge Diagnosis: COPD exacerbation heart failure Referrals: Analisa Carr MD [Primary Care Provider] - 1 Week Discharge Medications: New amlodipine 5 mg Tablet 5 mg PO BEDTIME Qty: 30 0RF Protocol: Hold for SBP< HOLD for SBP < : 90 prednisone 20 mg tablet 40 mg PO DAILY Qty: 6 0RF (DME) nebulizers Misc See Rx Instructions .Route Qty: 1 0RF Rx Instructions: As directed varenicline [Chantix Starting Month Box] 0.5 mg (11)- 1 mg (42) tablets,dose pack See Rx Instructions .ROUTE .COMPLEX Qty: 53 0RF Rx Instructions: 0.5 mg daily for 3 days 0.5 mg bid for 4 days 1 mg bid for 12 more weeks Continued trazodone 50 mg tablet 100 mg PO BEDTIME PRN (Reason: Insomnia) folic acid 1 mg Tablet 1 mg PO DAILY Qty: 90 4RF montelukast 10 mg tablet 10 mg PO BEDTIME sertraline 100 mg tablet 200 mg PO DAILY tiotropium bromide [Spiriva with HandiHaler] 18 mcg capsule, w/inhalation device 1 cap inhalation DAILY albuterol sulfate [Ventolin HFA] 90 mcg/actuation HFA aerosol inhaler 2 puff inhalation Q4-6H PRN (Reason: Shortness Of Breath Or Wheezing) quetiapine 50 mg tablet 50 mg PO BID fluticasone furoate-vilanterol 100-25 mcg/dose blister with device 1 inh INHALATION DAILY carvedilol 25 mg Tablet 25 mg PO BID 30 Days Qty: 60 0RF Protocol: Hold for SBP/HR < HOLD for SBP < : 90 HOLD for HR < : 60 spironolactone 25 mg Tablet 25 mg PO DAILY 30 Days Qty: 30 0RF Protocol: Hold for SBP< HOLD for SBP < : 90 guaifenesin [Mucinex] 600 mg Tablet Extended Release 12hr 600 mg PO BID Qty: 14 0RF ipratropium-albuterol 0.5 mg-3 mg(2.5 mg base)/3 mL Solution For Nebulization 3 ml inhalation TID Qty: 270 0RF prednisone 5 mg tablet 5 mg PO DAILY 30 Days Qty: 30 2RF Hold Instructions: hold until completing prednisone burst then resume losartan 50 mg tablet 100 mg PO DAILY 30 Days Qty: 60 2RF Protocol: Hold for SBP< HOLD for SBP < : 90 metformin 500 mg tablet 500 mg PO DAILY 90 Days Qty: 90 1RF furosemide [Lasix] 40 mg tablet 40 mg PO DAILY Discharge Orders: Discharge Order (Routine); Ordered 05/28/23 Ordered By: Kailey Angelo Diet: Advance to usual diet Activity on Discharge: As tolerated Stand Alone Forms: Patient Portal Discharge page Care Plan Goals: Read below Health Concerns: Read below Plan of Treatment: Read below Assessment: You were admitted for treatment of COPD and CHF exacerbations. responded well to IV steroids, Lasix and nebulizers. Amlodipine 5 mg at bedtime for high blood pressures Prednisone for 3 more days Use nebulizer every 4 hours for the next 3 days QUIT smoking; CHANTIX starter dose prescribed, follow with PCP to complete treatment course
[2023-05-28 11:23] VITALS: BP 173/95; PULSE 84; RESP 20; TEMP 36; O2SAT 92
[2023-05-28 11:37] VITALS: BP 168/86; PULSE 85
[2023-05-28 11:46] LABS: Glucose, Whole Blood 179 mg/dL (60-115)
[2023-05-28] MEDS: Insulin Lispro 100 UNIT/ML 3 ML VIAL SUBCUT (11:57)
[2023-05-28 12:12] VITALS: PULSE 109; RESP 18; O2SAT 91
--- NOTE | 2023-05-28 12:12 | P.CDIM_ITS ---
PROVIDER RESPONSE TEXT: To clarify, the appropriate diagnosis supported by the clinical indicators: Acute on chronic QUERY TEXT: PHYSICIAN'S DOCUMENTATION REQUEST Date of Query: 05/27/2023 10:26 AM EST Patient Name: Paola Ross Admit Date: 05/27/2023 Dear Kailey Angelo, A review of the medical record indicates additional documentation may be needed. Please review below and update the documentation accordingly. Clinical Indicators: H&P: Plan - Hypoxemic respiratory failure - likely multifactorial Continue supplemental oxygen to keep oxygen saturation above 90%. COPD on home oxygen 2-3 liters nc Clarify which of the following accurately represents the acuity of the Hypoxemia respiratory failure: Possible options might include: Acute Acute on chronic Compensated Other (explain) Clinically unable to determine (explain) Thank you, Genna Farr, CCS, CDIS Use of terms such as suspected, likely, concern for, or probable (associated with a specific diagnosi s that is being evaluated, monitored, or treated as if it exists) are acceptable and can be coded in the inpatient se tting, when documented at the time of discharge. Please use your independent medical judgment in providing your response. THIS QUERY IS PART OF THE PERMANENT MEDICAL RECORD
--- NOTE | 2023-05-28 12:12 | P.CDIM_ITS ---
PROVIDER RESPONSE TEXT: To clarify, the appropriate diagnosis supported by the clinical indicators: Hyperkalemia: resolved QUERY TEXT: PHYSICIAN'S DOCUMENTATION REQUEST Date of Query: 05/27/2023 11:38 AM EST Patient Name: Paola Ross Admit Date: 05/27/2023 Dear Kailey Angelo, A review of the medical record indicates additional documentation may be needed. Please review below and update the documentation accordingly. Clinical Indicators: LAB FINDINGS: potassium 5.5 H Based on the above, is there a diagnosis that correlates with these lab findings: Hyperkalemia resolved, suspected, possible etc. Labs indicate a diagnosis of (please specify) Other (explain) Clinically unable to determine (explain) Thank you, Genna Farr, CCS, CDIS Use of terms such as suspected, likely, concern for, or probable (associated with a specific diagnosi s that is being evaluated, monitored, or treated as if it exists) are acceptable and can be coded in the inpatient se tting, when documented at the time of discharge. Please use your independent medical judgment in providing your response. THIS QUERY IS PART OF THE PERMANENT MEDICAL RECORD
--- NOTE | 2023-05-28 12:31 | MHC.CM.PN ---
PT MEDICALLY CLEARED FOR DC HOME W/RESUMP OF HOME O2 AND PREVIOUS PAN WASHER HRS, [facility] FOR TRANSPORT AND EN ROUTE.
== END 2023-05-28 12:51 | disposition home or self-care (01) | DRG 194 ==
LOC: HO.ED 16:59 → HO.EDOVER 23:08 → HO.IMC 05-27 09:57
PROVIDERS: Physician Assistant Medical; Admitting Provider Internal Medicine; Emergency Provider Emergency Medicine; PCP Internal Medicine; Visit Provider Student in an Organized Health Care Education/Training Program
DX: I11.0 Hypertensive heart disease with heart failure (principal); J96.21 Acute and chronic respiratory failure with hypoxia; I27.29 Other secondary pulmonary hypertension; G47.33 Obstructive sleep apnea (adult) (pediatric); E11.9 Type 2 diabetes mellitus without complications; J44.1 Chronic obstructive pulmonary disease with (acute) exacerbation; F33.9 Major depressive disorder, recurrent, unspecified; F17.210 Nicotine dependence, cigarettes, uncomplicated; Z71.6 Tobacco abuse counseling; F41.9 Anxiety disorder, unspecified; Z99.81 Dependence on supplemental oxygen; E87.5 Hyperkalemia; Z20.822 Contact with and (suspected) exposure to COVID-19; Z79.51 Long term (current) use of inhaled steroids; Z79.52 Long term (current) use of systemic steroids; Z79.899 Other long term (current) drug therapy
CPT/HCPCS: 36415; 71045; 80048; 80053; 81001; 82803; 82947; 83735; 83880; 84484; 85025; 87086; 87502; 87635; 93005; 94640; 99285; J0456; J0696; J1644; J1940; J2405; J2920; J2930; J3475

== ENCOUNTER → 2023-05-26 12:47 | Outpatient (BNV) | payer OTHER, SELFPAY | PROVIDERS: Emergency Provider Emergency Medicine; PCP Internal Medicine; Visit Provider Internal Medicine Cardiovascular Disease | DX: I49.3 Ventricular premature depolarization (principal); R94.31 Abnormal electrocardiogram [ECG] [EKG] | CPT/HCPCS: 93010 ==

== ENCOUNTER → 2023-05-26 23:01 | Outpatient (BNV) | payer OTHER, SELFPAY | PROVIDERS: Admitting Provider Internal Medicine; Emergency Provider Emergency Medicine; PCP Internal Medicine; Visit Provider Internal Medicine | DX: J96.21 Acute and chronic respiratory failure with hypoxia (principal); I50.23 Acute on chronic systolic (congestive) heart failure; J44.1 Chronic obstructive pulmonary disease with (acute) exacerbation; E11.8 Type 2 diabetes mellitus with unspecified complications | CPT/HCPCS: 99223; 99239; 99499 ==

== ENCOUNTER 2023-05-31 09:14 | Inpatient (IN) | payer OTHER, SELFPAY ==
[2023-05-31] VITALS (14 sets, daily range): BP systolic 102–159; BP diastolic 69–94; PULSE 78–122; RESP 15–26; TEMP 36.4–37.8; O2SAT 70–100; BMI 26.3
--- NOTE | ~2023-05-31 | XR_ITS ---
EXAMINATION: XR CHEST CLINICAL INFORMATION: Dyspnea. COMPARISON: Chest radiograph 05/26/2023. TECHNIQUE: AP view of the chest was obtained. FINDINGS: Stable prominence of the cardiomediastinal silhouette with redemonstration of enlarged pulmonary arteries suggestive of pulmonary hypertension. Unchanged bibasilar streaky opacities. No new focal airspace density. No findings to suspect pulmonary edema. No pleural effusion or pneumothorax. Background of severe emphysema, best characterize on prior CTs. No acute osseous findings. Visualized upper abdomen is within normal limits. XR/XR chest 1V IMPRESSION: 1. No significant change when compared to 05/26/2023 with redemonstration of bibasilar streaky opacities, likely representing subsegmental atelectasis. 2. Severe emphysema. 3. Findings suggestive of pulmonary hypertension, consider correlation with echocardiogram as clinically warranted.
--- NOTE | 2023-05-31 08:36 | ECG_ITS ---
Test Reason : REPEAT EKG Blood Pressure : / mmHG Vent. Rate : 099 BPM Atrial Rate : 099 BPM P-R Int : 126 ms QRS Dur : 124 ms QT Int : 408 ms P-R-T Axes : 027 037 -23 degrees QTc Int : 523 ms Normal sinus rhythm Right bundle branch block Abnormal ECG When compared with ECG of 31-MAY-2023 10:06, Premature atrial complexes are no longer Present T wave inversion no longer evident in Anterior leads Referred By: Alta Chapman Electronically Signed By:KEVIN ODELL MD
--- NOTE | 2023-05-31 09:14 | PC.NURSE ---
at bedside attemping US IV for hard stick
--- NOTE | 2023-05-31 09:16 | ECG_ITS ---
Test Reason : SOB Blood Pressure : / mmHG Vent. Rate : 113 BPM Atrial Rate : 113 BPM P-R Int : 126 ms QRS Dur : 114 ms QT Int : 372 ms P-R-T Axes : 079 037 -35 degrees QTc Int : 510 ms Sinus tachycardia with Premature atrial complexes Right bundle branch block T wave abnormality, consider inferior ischemia Abnormal ECG When compared with ECG of 26-MAY-2023 13:51, Premature ventricular complexes are no longer Present Premature atrial complexes are now Present T wave inversion now evident in Anterior leads Referred By: Alta Chapman Electronically Signed By:KEVIN ODELL MD
[2023-05-31] MEDS: Albuterol Sulfate 5 MG, Albuterol/Iprat 2.5/0.5MG 3 ML 3 ML INHALE (09:27)
--- NOTE | 2023-05-31 09:45 | PC.NURSE ---
continuing for IV access US, MD jenkins also trying ej. difficult stick
[2023-05-31 09:59] LABS: Hematocrit 35.4 % (37.0-47.0); Hemoglobin 11.3 g/dl (12.0-16.0); Mean Corpuscular HGB Conc 31.9 g/dl (31.0-35.0); Mean Corpuscular Hemoglobin 27.7 pg (27.0-33.0); Mean Corpuscular Volume 86.8 fL (80.0-98.0); Mean Platelet Volume 10.1 fL (9.4-12.3); Platelet Count 142 X10*3/uL (160-400); Red Blood Count 4.08 X10*6/uL (4.20-5.50); Red Cell Distribution Width 15.2 % (11.0-16.0); White Blood Count 9.5 X10*3/uL (4.8-10.8)
[2023-05-31] MEDS: Magnesium Sulfate/H2O 2 GM/50 ML PIGGYBACK IV (10:07)
[2023-05-31] MEDS: Furosemide 40 MG/4 ML VIAL IVPUSH (10:07)
[2023-05-31] MEDS: methylPREDNISolone Sod Succ 125 MG/2 ML VIAL 60 MG IVPUSH ×2 (10:07→20:40)
[2023-05-31 10:08] LABS: Prothrombin Time 11.9 SEC (11.1-13.3)
--- NOTE | 2023-05-31 10:08 | ED_ITS ---
HPI - SOB/Dyspnea General Chief Complaint: Dyspnea Stated Complaint: sob70% ra per ems Time Seen by Provider: 05/31/23 09:15 Source: patient, EMS, old records reviewed and conference interpreter Mode of arrival: EMS Limitations: no limitations History of Present Illness HPI Narrative: 62 yo female with COPD on 4L NC, chronic respiratory failure, CHF with recent admission and DC on 05/28, depression, diabetes here with c/o abrupt onset shortness of breath but not feeling well since discharge on 05/28 she is chronically short of breath. EMS found her 70s on 4L NC but the tubing was about 30feet long. she denies chest pain. she states she has been taking medications but not this AM. She is not smoking since discharge. No vomiting, no fevers. MD elicited complaint: shortness of breath and asthma attack Pertinent past history: COPD, asthma and congestive heart failure Onset (ago): day(s) ( long time worse this AM) Context: recent illness Timing: constant Severity: severe Exacerbating factors: lying flat and coughing Relieving factors: oxygen, rest and bronchodilators Known history of: COPD, asthma and congestive heart failure Associated symptoms: cough and wheezing Treatment prior to arrival: oxygen and bronchodilator Related Data Home Medications Medication Instructions Recorded Confirmed trazodone 50 mg tablet 100 mg PO BEDTIME PRN Insomnia 03/08/20 05/26/23 furosemide 40 mg tablet (Lasix) 40 mg PO DAILY 04/03/23 05/26/23 albuterol sulfate 90 mcg/actuation 2 puff inhalation Q4-6H PRN 04/30/23 05/26/23 aerosol inhaler (Ventolin HFA) Shortness Of Breath Or Wheezing fluticasone furoate 100 1 inh inhalation DAILY 04/30/23 05/26/23 mcg-vilanterol 25 mcg/dose inhalation powder montelukast 10 mg tablet 10 mg PO BEDTIME 04/30/23 05/26/23 quetiapine 50 mg tablet 50 mg PO BID 04/30/23 05/26/23 sertraline 100 mg tablet 200 mg PO DAILY 04/30/23 05/26/23 tiotropium bromide 18 mcg capsule 1 cap inhalation DAILY 04/30/23 05/26/23 with inhalation device (Spiriva with HandiHaler) Previous Rx's Medication Instructions Recorded folic acid 1 mg tablet 1 mg PO DAILY #90 tabs 09/04/22 carvedilol 25 mg tablet 25 mg PO BID 30 days #60 tabs 05/03/23 spironolactone 25 mg tablet 25 mg PO DAILY 30 days #30 tabs 05/03/23 guaifenesin 600 mg tablet, 600 mg PO BID #14 tabs 05/17/23 extended release 12 hr (Mucinex) losartan 50 mg tablet 100 mg PO DAILY 30 days #60 tabs 05/20/23 metformin 500 mg tablet 500 mg PO DAILY 90 days #90 tabs 05/20/23 prednisone 5 mg tablet 5 mg PO DAILY 30 days #30 tabs 05/20/23 amlodipine 5 mg tablet 5 mg PO BEDTIME #30 tabs 05/28/23 ipratropium 0.5 mg-albuterol 3 mg 3 ml inhalation TID #270 mL 05/28/23 (2.5 mg base)/3 mL nebulization soln nebulizers #1 ea 05/28/23 prednisone 20 mg tablet 40 mg (2 x 20 mg) PO DAILY #6 tabs 05/28/23 varenicline 0.5 mg (11)-1 mg (42) See Rx Instructions .Route 05/28/23 tablets in a dose pack (Podotreex .COMPLEX #53 ea Starting Month Box) Allergies Allergy/AdvReac Type Severity Reaction Status Date / Time nicotine [Nicotine] Allergy Mild ITCHING Verified 05/31/23 09:23 WITH THE PATCHES topiramate Allergy Mild inadequealte Verified 05/31/23 09:23 response Review of Systems 2 Review of Systems: Constitutional : No Fever, No Chills ENT/Mouth : No Hoarseness, No sore throat, No Rhinorrhea Eyes: No Redness, No Discharge, No Vision Changes Cardiovascular : No Chest Pain, positive SOB, positive Dyspnea on Exertion, No Edema Respiratory : positive Cough, No Sputum, positive Wheezing, Gastrointestinal : No Nausea, No Vomiting, No Diarrhea, No abdominal Pain Genitourinary : No Dysuria, No Hematuria Musculoskeletal : No joint pain, No Myalgias Skin : No rash Neuro : No Weakness, No Numbness, No Headache Psych : No anxiety, depression Heme/Lymph: No Bruising, No Bleeding Endocrine : No Polyuria, No Polydipsia All other systems reviewed and are negative PMFSH Past Medical History Medical History Congestive heart failure Mild recurrent major depression Hospital discharge follow-up Severe chronic obstructive pulmonary disease Diabetes Mitral regurgitation Chest pain Lumbar degenerative disc disease Right lower lobe pneumonitis Congestive heart failure Acute and chronic respiratory failure with hypoxia Respiratory failure with hypoxia and hypercapnia Atelectasis, right Hypertensive emergency Pulmonary hypertension Osteoporosis Essential hypertension Supraventricular tachycardia Nonischemic cardiomyopathy Non-rheumatic mitral regurgitation Tobacco abuse Depression Anxiety Chronic respiratory failure HFrEF (heart failure with reduced ejection fraction) KELLIE (obstructive sleep apnea) HLD (hyperlipidemia) HTN (hypertension) Surgical History H/O hysterectomy for benign disease History of total abdominal hysterectomy Bilateral ankle fractures Family History Family History Father No problems noted. 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 home services: Yes Unable to assess alcohol history related to: Unable to respond Alcohol intake: never Patient Tobacco Use Status: Former Tobacco user Tobacco use type: Cigarette Cigarette Packs Per Day: 6 Cigarettes Per Day: 120.0 Years Smoked: 50 +/- e-Cigarette/Vaping Use: Never Used Second Hand Smoke Exposure: No Advance Directives: Yes Advance Directives on File: Yes Advance Directives Date on File: 04/30/20 service: No Current occupational status: disabled Cognitive needs: Yes Hearing needs: No Vision needs: No Physical Exam 2 Vital Signs: Vital Signs: Last Vital Signs Temp 99 F 05/31/23 11:33 Pulse 110 H 05/31/23 11:33 Resp 16 05/31/23 11:33 BP 140/83 H 05/31/23 11:33 Pulse Ox 97 05/31/23 11:33 O2 Del Method BiPAP 05/31/23 11:33 Oxygen Flow Rate 6 05/31/23 09:19 BMI result Body Mass Index 26.3 Appearance: Alert. Oriented X3. Moderate acute distress. Eyes: Pupils equal, round and reactive to light. ENT: Pharynx normal. Neck: Normal inspection. Neck supple. CVS: Normal heart rate and rhythm. Pulses normal. Respiratory: Moderate respiratory distress short phrases. Breath sounds diminished throughout Abdomen: Soft and nontender. Skin: Skin warm and dry. Normal skin color. Normal skin turgor. Extremities: No lower extremity edema. No calf ttp Neuro: Oriented X 3. No motor deficit. No sensory deficit. Course Course Course Narrative: trop elevated will repeat has no chest pain off bipap 1150pm Reevaluation(s) Reevaluation #1: doing well off bipap Reevaluation #2: No heparin per Dr. Curry Medications Administered Discontinued Medications Generic Name Dose Route Start Last Admin Trade Name Norma PRN Reason Stop Dose Admin Acetaminophen 650 mg 05/31/23 10:50 05/31/23 10:57 Acetaminophen 325 Mg Tablet PO 05/31/23 10:51 650 mg ONCE ONE Administration Aspirin 324 mg 05/31/23 12:43 05/31/23 13:17 Aspirin 81 Mg Tab.Chew PO 05/31/23 12:44 324 mg ONCE ONE Administration Albuterol Sulfate 5 mg/ 0 mg 05/31/23 09:24 05/31/23 09:27 Albuterol/Ipratropium 3 ml INHALE 05/31/23 09:25 1 each ONCE ONE Administration Furosemide 40 mg 05/31/23 09:16 05/31/23 10:07 Furosemide 40 Mg/4 Ml Vial IVPUSH 05/31/23 09:17 40 mg STAT STA Administration Protocol Magnesium Sulfate 2 gm in 50 mls @ 25 mls/hr 05/31/23 09:16 05/31/23 10:54 Magnesium Sulfate/H2o IV 05/31/23 11:15 0 mls/hr ONCE ONE Infusion Azithromycin 500 mg/ Sodium 250 mls @ 125 mls/hr 05/31/23 09:16 05/31/23 11:28 Chloride IV 05/31/23 11:15 125 mls/hr ONCE ONE Administration Ceftriaxone Sodium 1 gm/ 50 mls @ 100 mls/hr 05/31/23 10:50 05/31/23 11:28 Sodium Chloride IV 05/31/23 11:19 Infused ONCE ONE Infusion Methylprednisolone Sodium Succinate 60 mg 05/31/23 09:16 05/31/23 10:07 Methylprednisolone Sod Succ 125 Mg/2 Ml Vial IVPUSH 05/31/23 09:17 60 mg ONCE ONE Administration Medical Decision Making Medical Decision Making MDM Narrative: 62 yo female with COPD on 4L NC, chronic respiratory failure, CHF with recent admission and DC on 05/28, depression, diabetes notes she hasn't felt well since discharge but again this AM started to wheeze abruptly and became short of breath. Hypoxic to 70s with EMS responded to neb. At this time will start on short course of bipap for increased work of breathing, neb, IV steroids, IV magnesium, IV azithromycin for bronchitis and IV lasix. Likely admit. She notes she is not smoking bipap used for asthma/CHF and not for infection or severe sepsis Differential Diagnosis Differential Diagnoses: The differential diagnosis associated with the presentation includes CHF, viral, COPD, bronchitis Admission/Observation Consideration of admission/observation: Escalation of care including admission/observation considered admit for further workup Consult Healthcare Provider Management of the patient was discussed with: Hospitalist and Buffing [facility] [employer] (cardiology no heparin) Lab Data [facility] Lab Attestation statement: I reviewed the patient's lab results. 05/31/23 09:52 05/31/23 09:51 Labs: Lab Results 05/31/23 05/31/23 05/31/23 Range/Units 09:51 09:52 10:02 WBC 9.5 (4.8-10.8) X10*3/uL RBC 4.08 L (4.20-5.50) X10*6/uL Hgb 11.3 L (12.0-16.0) g/dl Hct 35.4 L (37.0-47.0) % MCV 86.8 (80.0-98.0) fL MCH 27.7 (27.0-33.0) pg MCHC 31.9 (31.0-35.0) g/dl RDW 15.2 (11.0-16.0) % Plt Count 142 L (160-400) X10*3/uL MPV 10.1 (9.4-12.3) fL Immature Gran % (Auto) Cancelled Neut % (Auto) Cancelled Lymph % (Auto) Cancelled Coos % (Auto) Cancelled Eos % (Auto) Cancelled Baso % (Auto) Cancelled Lymph # (Auto) Cancelled Coos # (Auto) Cancelled Eos # (Auto) Cancelled Baso # (Auto) Cancelled Abs Immat Gran (auto) Cancelled Absolute Neuts (auto) Cancelled Absolute Nucleated RBC 0.000 (0.0-0.012) X10*3/uL Nucleated RBC % (auto) 0.0 (0.0-0.2) /100WBC Neutrophils % (Manual) 93 H (45-73) % Band Neutrophils % 3 (3-5) % Lymphocytes % (Manual) 1 L (20-40) % Monocytes % (Manual) 3 (2-11) % Abs Neuts (Manual) 9.1 H (2.0-8.3) X10*3/uL Lymphocytes # (Manual) 0.1 L (1.2-4.9) X10*3/uL Monocytes # (Manual) 0.3 (0.1-1.2) X10*3/uL Toxic Vacuolation PRESENT Platelet Estimate SLIGHTLY DECREASED (NORMAL) Plt Morphology Comment NORMAL RBC Morphology NOTED Ovalocytes 1+ (5-14) /OIF PT 11.9 (11.1-13.3) SEC INR 1.0 (0.9-1.1) VBG pH 7.39 (7.32-7.43) VBG pCO2 49 mmHg VBG pO2 41 mmHg VBG HCO3 30 H (22-26) mmol/L VBG O2 Saturation 67.0 % VBG Base Excess 5.0 mmol/L Sodium 137 (135-145) mmol/L Potassium 3.8 (3.3-5.1) mmol/L Chloride 100 (96-108) mmol/L Carbon Dioxide 26 (22-29) mmol/L Anion Gap 15 (12-20) BUN 14 (9-16) mg/dL Creatinine 1.01 (0.5-1.4) mg/dL Estim Creat Clear Calc 47.8 Estimated GFR 56 Random Glucose 204 H (60-115) mg/dL Lactic Acid 2.0 (0.5-2.0) mmol/L Calcium 8.8 D (8.4-10.2) mg/dL Magnesium 1.9 (1.6-2.6) mg/dL Total Bilirubin 0.7 (0.0-1.0) mg/dL Direct Bilirubin 0.2 (0.0-0.5) mg/dL AST 32 H (5-31) U/L ALT 28 (0-31) U/L Alkaline Phosphatase 86 (39-117) U/L Troponin I High Sens 140.2 H* D (<3.5-17.0) ng/L B-Natriuretic Peptide 463 H (<100) pg/mL Total Protein 6.8 (6.5-8.0) g/dL Albumin 3.6 (3.5-5.0) g/dL Lipase 17 (8-78) U/L Procalcitonin 0.08 ng/mL COVID-19 (ANEL) Negative (Negative) COVID-19 Clin Com See Note Influenza Type A (ELGIN) (Negative) Influenza Type B (ELGIN) (Negative) Influenza A & B Note 05/31/23 05/31/23 Range/Units 12:06 12:51 WBC (4.8-10.8) X10*3/uL RBC (4.20-5.50) X10*6/uL Hgb (12.0-16.0) g/dl Hct (37.0-47.0) % MCV (80.0-98.0) fL MCH (27.0-33.0) pg MCHC (31.0-35.0) g/dl RDW (11.0-16.0) % Plt Count (160-400) X10*3/uL MPV (9.4-12.3) fL Immature Gran % (Auto) Neut % (Auto) Lymph % (Auto) Coos % (Auto) Eos % (Auto) Baso % (Auto) Lymph # (Auto) Coos # (Auto) Eos # (Auto) Baso # (Auto) Abs Immat Gran (auto) Absolute Neuts (auto) Absolute Nucleated RBC (0.0-0.012) X10*3/uL Nucleated RBC % (auto) (0.0-0.2) /100WBC Neutrophils % (Manual) (45-73) % Band Neutrophils % (3-5) % Lymphocytes % (Manual) (20-40) % Monocytes % (Manual) (2-11) % Abs Neuts (Manual) (2.0-8.3) X10*3/uL Lymphocytes # (Manual) (1.2-4.9) X10*3/uL Monocytes # (Manual) (0.1-1.2) X10*3/uL Toxic Vacuolation Platelet Estimate (NORMAL) Plt Morphology Comment RBC Morphology Ovalocytes /OIF PT (11.1-13.3) SEC INR (0.9-1.1) VBG pH (7.32-7.43) VBG pCO2 mmHg VBG pO2 mmHg VBG HCO3 (22-26) mmol/L VBG O2 Saturation % VBG Base Excess mmol/L Sodium (135-145) mmol/L Potassium (3.3-5.1) mmol/L Chloride (96-108) mmol/L Carbon Dioxide (22-29) mmol/L Anion Gap (12-20) BUN (9-16) mg/dL Creatinine (0.5-1.4) mg/dL Estim Creat Clear Calc Estimated GFR Random Glucose (60-115) mg/dL Lactic Acid (0.5-2.0) mmol/L Calcium (8.4-10.2) mg/dL Magnesium (1.6-2.6) mg/dL Total Bilirubin (0.0-1.0) mg/dL Direct Bilirubin (0.0-0.5) mg/dL AST (5-31) U/L ALT (0-31) U/L Alkaline Phosphatase (39-117) U/L Troponin I High Sens 492.3 H* D (<3.5-17.0) ng/L B-Natriuretic Peptide (<100) pg/mL Total Protein (6.5-8.0) g/dL Albumin (3.5-5.0) g/dL Lipase (8-78) U/L Procalcitonin ng/mL COVID-19 (ANEL) (Negative) COVID-19 Clin Com Influenza Type A (ELGIN) Positive A (Negative) Influenza Type B (ELGIN) Negative (Negative) Influenza A & B Note See Note Independent Interpretation I performed an independent interpretation of an: EKG and Plain X-Ray (no pneumonia) Interpretation: Rate: 113 Rhythm: sinus tachycardia Anna: normal Normal P waves. Normal GUILLE. RBBB ST T wave : T wave inversions V3-V6, no LAURO qTC: 510 prior studies: no STEMI The study has been interpreted contemporaneously by me. . EKG #2 Rate: 99 Rhythm: NSR Anna: right Normal P waves. Normal GUILLE. RBBB ST T wave : no LAURO, inverted T waves inf leads qTC: 523 prior studies: no sig change from priors The study has been interpreted contemporaneously by me. . Radiology Impression Discussion of test interpretation with radiology: I have reviewed the radiologist's reading. Independent Historian Clinical information obtained from an independent historian. History obtained from or confirmed by: EMS External Record Review External record reviewed: Inpatient record Procedures EJ/Peripheral Line Arm L: Time Out Performed: Yes Skin Cleansed in Sterile Fashion: Yes Size (gauge): 20 IV Secured and Dressing Applied: Yes Patient Tolerated Procedure: well and no complications Additional Comments: US guided Critical Care Time Critical Care Time Critical Care Time: Yes Total Critical Care Time: 60 Attestation: respiratory failure, NIPPV, medical consult I attest to this time spent taking care of the patient Discharge Plan Discharge Clinical Impression: Elevated troponin, Influenza A CHF (congestive heart failure) Qualifiers: Heart failure type: unspecified Heart failure chronicity: acute on chronic Q ualified Code(s): I50.9 - Heart failure, unspecified Asthma with exacerbation Qualifiers: Asthma severity: severe Asthma persistence: persistent Qualified Code(s): J 45.51 - Severe persistent asthma with (acute) exacerbation Patient Disposition: Admitted As Inpatient
[2023-05-31 10:11] LABS: VBG HCO3 30 mmol/L (22-26); VBG pCO2 49 mmHg; VBG pH 7.39 (7.32-7.43); VBG pO2 41 mmHg
[2023-05-31 10:14] LABS: Venous Blood Gas Refer to POC result
--- NOTE | 2023-05-31 10:20 | PC.NURSE ---
IV obtained by MD jenkins at this time via US. pr MD jenkins start mag and give ABX after done.
[2023-05-31 10:21] LABS: COVID-19 Test Negative (Negative); IDNOW Serial# 55D5AD1C
[2023-05-31 10:25] LABS: B Type Natriuretic Peptide 463 pg/mL (<100)
[2023-05-31 10:25] LABS: Band Neutrophils Percent 3 % (3-5); Lymphocytes Absolute Manual 0.1 X10*3/uL (1.2-4.9); Lymphocytes Percent Manual 1 % (20-40); Monocytes Absolute Manual 0.3 X10*3/uL (0.1-1.2); Monocytes Percent Manual 3 % (2-11); Neutrophils Absolute Manual 9.1 X10*3/uL (2.0-8.3); Neutrophils Percent Manual 93 % (45-73)
[2023-05-31 10:26] LABS: Ovalocytes 1+ (5-14) /OIF; Platelet Estimate SLIGHTLY DECREASED (NORMAL); Platelet Morphology Comment NORMAL; RBC Morphology NOTED; Toxic Vacuolation PRESENT
[2023-05-31 10:43] LABS: Alanine Aminotransferase 28 U/L (0-31); Albumin Level 3.6 g/dL (3.5-5.0); Alkaline Phosphatase 86 U/L (39-117); Anion Gap 15 (12-20); Aspartate Amino Transferase 32 U/L (5-31); Bilirubin Direct 0.2 mg/dL (0.0-0.5); Bilirubin Total 0.7 mg/dL (0.0-1.0); Blood Urea Nitrogen 14 mg/dL (9-16); Calcium 8.8 mg/dL (8.4-10.2); Carbon Dioxide 26 mmol/L (22-29); Chloride 100 mmol/L (96-108); Creatinine Clr Calc Pharmacy 47.8; Estimated Glomerular Filt Rate 56; Glucose Random 204 mg/dL (60-115); Lipase 17 U/L (8-78); Magnesium 1.9 mg/dL (1.6-2.6); Potassium 3.8 mmol/L (3.3-5.1); Procalcitonin 0.08 ng/mL; Sodium 137 mmol/L (135-145); Total Protein 6.8 g/dL (6.5-8.0)
[2023-05-31 10:44] LABS: Troponin-I High Sensitivity 140.2 ng/L (<3.5-17.0)
--- NOTE | 2023-05-31 10:54 | PC.NURSE ---
paused md gregory byrd order ceftriaxone to be given at this time as pt difficult stick (attempted US multiple times and EJ multiple times yb MD jenkins and only able to get one IV).
[2023-05-31] MEDS: cefTRIAXone sodium 1 GM in 0.9 % Sodium Chloride 50 ML IV (10:57)
[2023-05-31] MEDS: Acetaminophen 325 MG TABLET 650 MG PO ×2 (10:57→20:43)
[2023-05-31] MEDS: Azithromycin 500 MG in 0.9 % Sodium Chloride 250 ML 125 MG IV (11:28)
[2023-05-31 12:37] LABS: Troponin-I High Sensitivity 492.3 ng/L (<3.5-17.0)
[2023-05-31 13:17] LABS: IDNOW Serial# 58CA691E; Influenza A Positive (Negative); Influenza B2 Negative (Negative)
[2023-05-31] MEDS: Aspirin 81 MG TAB.CHEW 324 MG PO (13:17)
--- NOTE | 2023-05-31 14:07 | P.HPHOSP_ITS ---
History of Present Illness Date of Service: 05/31/23 Chief Complaint: Flu A, SOB A 62 years old woman with PMH of COPD on home O2 2-3 L, systolic congestive heart failure (EF 30-35%), pulmonary hypertension, anxiety, depression, essential hypertension and KELLIE presents to ED by EMS of Hypoxia of 70s and respiratory distress. The patient reports that she was doing fairly ok the first say after discharge but since last night she developed sudden onset SOB and feeling of weakness. denies smoking since discharge. No chest pain, palpitations, nausea, vomiting, diarrhea or urinary symptoms. had a run of 100 fever. In ED she was placed on Bipap with fair response as she was taken off it and maintaned her O2 sat in mid 90s. Tested positive for Flu A Admitted for further treatment Review of Systems 2 Review of Systems: No fever, chills but reports weakness No chest pain, palpitation shortness of breath and coughing No abdominal pain, nausea or vomiting No urinary symptoms No any rash or wounds PMFSH Medical History Congestive heart failure Mild recurrent major depression Hospital discharge follow-up Severe chronic obstructive pulmonary disease Diabetes Mitral regurgitation Chest pain Lumbar degenerative disc disease Right lower lobe pneumonitis Congestive heart failure Acute and chronic respiratory failure with hypoxia Respiratory failure with hypoxia and hypercapnia Atelectasis, right Hypertensive emergency Pulmonary hypertension Osteoporosis Essential hypertension Supraventricular tachycardia Nonischemic cardiomyopathy Non-rheumatic mitral regurgitation Tobacco abuse Depression Anxiety Chronic respiratory failure HFrEF (heart failure with reduced ejection fraction) KELLIE (obstructive sleep apnea) HLD (hyperlipidemia) HTN (hypertension) Family History Father No problems noted. Mother Liver cancer Hypertension Surgical History H/O hysterectomy for benign disease History of total abdominal hysterectomy Bilateral ankle fractures Social History Household Members: None Household Members Other:: 1 Housing: Apartment Do you presently have visiting nurse or other home services: Yes Unable to assess alcohol history related to: Unable to respond Alcohol intake: never Patient Tobacco Use Status: Former Tobacco user Tobacco use type: Cigarette Cigarette Packs Per Day: 6 Cigarettes Per Day: 120.0 Years Smoked: 50 +/- e-Cigarette/Vaping Use: Never Used Second Hand Smoke Exposure: No Advance Directives: Yes Advance Directives on File: Yes Advance Directives Date on File: 04/30/20 service: No Current occupational status: disabled Cognitive needs: Yes Hearing needs: No Vision needs: No Meds Allergies Allergy/AdvReac Type Severity Reaction Status Date / Time nicotine [Nicotine] Allergy Mild ITCHING Verified 05/31/23 09:23 WITH THE PATCHES topiramate Allergy Mild inadequealte Verified 05/31/23 09:23 response Active Medications: Current Medications Oseltamivir Phosphate (Oseltamivir Phosphate 75 Mg Capsule) 75 mg PO Q12H WALDEMAR Stop: 06/04/23 21:31 Home Medications Medication Instructions Recorded Confirmed Last Taken Type trazodone 50 mg tablet 100 mg PO BEDTIME PRN Insomnia 03/08/20 05/31/23 05/25/23 History furosemide 40 mg tablet (Lasix) 40 mg PO DAILY 04/03/23 05/31/23 05/25/23 History albuterol sulfate 90 mcg/actuation 2 puff inhalation Q4-6H PRN 04/30/23 05/31/23 05/25/23 History aerosol inhaler (Ventolin HFA) Shortness Of Breath Or Wheezing fluticasone furoate 100 1 inh inhalation DAILY 04/30/23 05/31/23 05/25/23 History mcg-vilanterol 25 mcg/dose inhalation powder montelukast 10 mg tablet 10 mg PO BEDTIME 04/30/23 05/31/23 05/25/23 History quetiapine 50 mg tablet 50 mg PO BID 04/30/23 05/31/23 05/25/23 History sertraline 100 mg tablet 200 mg PO DAILY 04/30/23 05/31/23 05/25/23 History tiotropium bromide 18 mcg capsule 1 cap inhalation DAILY 04/30/23 05/31/23 05/25/23 History with inhalation device (Spiriva with HandiHaler) Physical Exam 2 Vital Signs and Narrative: Vital Signs: Last Vital Signs Temp 98 F 05/31/23 13:19 Pulse 105 H 05/31/23 13:19 Resp 22 H 05/31/23 13:19 BP 121/79 05/31/23 13:19 Pulse Ox 98 05/31/23 13:19 O2 Del Method Nasal Cannula 05/31/23 13:19 O2 Flow Rate 4 05/31/23 13:19 Oxygen Flow Rate 6 05/31/23 09:19 BMI result Body Mass Index 26.3 Const: Other: Constitutional : Awake, interactive, in mild resp distress Neck : Normal inspection, Supple Cardiovascular : RRR, no JVP, no lower extremity edema Respiratory : decreased bilateral air entry, no crackles, bilateral scattered wheezes Gastrointestinal: soft, lax, Normal bowel sounds, Non tender Skin : Warm, Dry Neurological : Alert & oriented x3, No focal deficit Results Labs 05/31/23 09:52 05/31/23 09:51 Labs: Laboratory Results - last 24 hr 05/31/23 05/31/23 05/31/23 09:51 09:52 10:02 MCV 86.8 MCH 27.7 MCHC 31.9 RDW 15.2 Plt Count 142 L MPV 10.1 Immature Gran % (Auto) Cancelled Neut % (Auto) Cancelled Lymph % (Auto) Cancelled [place] % (Auto) Cancelled Eos % (Auto) Cancelled Baso % (Auto) Cancelled Lymph # (Auto) Cancelled [place] # (Auto) Cancelled Eos # (Auto) Cancelled Baso # (Auto) Cancelled Abs Immat Gran (auto) Cancelled Absolute Neuts (auto) Cancelled Absolute Nucleated RBC 0.000 Nucleated RBC % (auto) 0.0 Neutrophils % (Manual) 93 H Band Neutrophils % 3 Lymphocytes % (Manual) 1 L Monocytes % (Manual) 3 Abs Neuts (Manual) 9.1 H Lymphocytes # (Manual) 0.1 L Monocytes # (Manual) 0.3 Toxic Vacuolation PRESENT Platelet Estimate SLIGHTLY DECREASED Plt Morphology Comment NORMAL RBC Morphology NOTED Ovalocytes 1+ (5-14) PT 11.9 INR 1.0 VBG pH 7.39 VBG pCO2 49 VBG pO2 41 VBG HCO3 30 H VBG O2 Saturation 67.0 VBG Base Excess 5.0 Anion Gap 15 Estim Creat Clear Calc 47.8 Estimated GFR 56 Random Glucose 204 H Lactic Acid 2.0 Calcium 8.8 D Magnesium 1.9 Total Bilirubin 0.7 Direct Bilirubin 0.2 AST 32 H ALT 28 Alkaline Phosphatase 86 B-Natriuretic Peptide 463 H Total Protein 6.8 Albumin 3.6 Lipase 17 Procalcitonin 0.08 COVID-19 (ANEL) Negative COVID-19 Clin Com See Note Influenza Type A (ELGIN) Influenza Type B (ELGIN) Influenza A & B Note 05/31/23 12:51 MCV MCH MCHC RDW Plt Count MPV Immature Gran % (Auto) Neut % (Auto) Lymph % (Auto) [place] % (Auto) Eos % (Auto) Baso % (Auto) Lymph # (Auto) [place] # (Auto) Eos # (Auto) Baso # (Auto) Abs Immat Gran (auto) Absolute Neuts (auto) Absolute Nucleated RBC Nucleated RBC % (auto) Neutrophils % (Manual) Band Neutrophils % Lymphocytes % (Manual) Monocytes % (Manual) Abs Neuts (Manual) Lymphocytes # (Manual) Monocytes # (Manual) Toxic Vacuolation Platelet Estimate Plt Morphology Comment RBC Morphology Ovalocytes PT INR VBG pH VBG pCO2 VBG pO2 VBG HCO3 VBG O2 Saturation VBG Base Excess Anion Gap Estim Creat Clear Calc Estimated GFR Random Glucose Lactic Acid Calcium Magnesium Total Bilirubin Direct Bilirubin AST ALT Alkaline Phosphatase B-Natriuretic Peptide Total Protein Albumin Lipase Procalcitonin COVID-19 (ANEL) COVID-19 Clin Com Influenza Type A (ELGIN) Positive A Influenza Type B (ELGIN) Negative Influenza A & B Note See Note Imaging Radiologist's Impressions: Impressions Chest X-Ray 05/31/23 09:58 IMPRESSION: 1. No significant change when compared to 05/26/2023 with redemonstration of bibasilar streaky opacities, likely representing subsegmental atelectasis. 2. Severe emphysema. 3. Findings suggestive of pulmonary hypertension, consider correlation with echocardiogram as clinically warranted. Assessment and Plan (1) Influenza A: Status: Acute (2) Elevated troponin: Status: Acute (3) Hypoxic respiratory failure: Status: Acute (4) Acute and chronic respiratory failure with hypoxia: Status: Resolved Plan A 62 years old woman with PMH of COPD on home O2 2-3 L, systolic congestive heart failure (EF 30-35%), pulmonary hypertension, anxiety, depression, essential hypertension and KELLIE presents to ED by EMS of Hypoxia of 70s and respiratory distress. # acute on chronic Hypoxemic respiratory failure, 2/2 Acute exacerbation of COPD 2/2 Flu A infection Needed Bipap support in ED CXR showing pulm HTN, emphysema and atelactasis start bronchodilator therapy IV steroids Tamiflu for 5 days Continue montelukast. Wean O2 down as tolerated # Elevated Trop I no chest pain, no EKG changes to suggest ACS likely type 2 from hypoxia cardiology consult Hold on Heparin per cardiology , start Aspirin keep on Tele repeat EKG and Trop for any chest pain # Hx systolic CHF not in exacerbation spironolactone and Coreg. Wean O2 down to 4L with goal of O2 sat >90% # Anxiety and depression. Continue sertraline. Seroquel and trazodone # Type 2 diabetes mellitus. Blood glucose monitoring before meals at bedtime. Blood glucose control with insulin sliding scale. Diabetic diet # Essential hypertension. Continue Coreg, spironolactone and losartan. # Obstructive sleep apnea. Not tolerating CPAP. # Tobacco dependence. Tobacco cessation education. Nicotine patch as needed. VTE prophylaxis: Lovenox Code status: Full Patient would require hospitalization for at least 2 night for respiratory failure treatment given her comorbidities and recurrent hospitalization. She will require supplemental oxygen, close oxygen saturation monitoring, bronchodilator therapy and steroids Quality Stroke Does the patient have a stroke diagnosis?: No VTE Prior VTE?: No VTE Risk Level:: Medical - moderate - high VTE Device Contraindication: Treatment Not Indicated VTE Drug Contraindication: N/A - Med Ordered
--- NOTE | 2023-05-31 14:14 | PHA.MEDREC ---
Pharmacy Consult ? Medication Reconciliation Pharmacy has completed the medication reconciliation. Patient recently discharged 05/28/23. Utilized medical record and discharge packet.
[2023-05-31] MEDS: Albuterol/Iprat 2.5/0.5MG 3 ML AMPUL.NEB INHALE ×2 (15:14→19:32)
[2023-05-31] MEDS: Enoxaparin Sodium 40 MG/0.4 ML SYRINGE SUBCUT (15:20)
[2023-05-31] MEDS: Oseltamivir Phosphate 75 MG CAPSULE PO ×2 (15:20→20:40)
[2023-05-31] MEDS: guaiFENesin LA 600 MG TAB.ER.12H PO ×2 (15:20→20:39)
--- NOTE | 2023-05-31 15:32 | PC.NURSE ---
report sent- no transporters available. contacting charge and notified [employer] text
--- NOTE | 2023-05-31 16:33 | MHC.CM.PN ---
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
[2023-05-31 16:41] LABS: Glucose, Whole Blood 247 mg/dL (60-115)
[2023-05-31] MEDS: Insulin Lispro 100 UNIT/ML 3 ML VIAL SUBCUT (16:52)
[2023-05-31] MEDS: 0.9 % Sodium Chloride Flush 3 ML SYRINGE IVFLUSH (16:55)
[2023-05-31 20:01] LABS: Glucose, Whole Blood 83 mg/dL (60-115)
[2023-05-31] MEDS: amLODIPine Besylate 5 MG TABLET PO (20:39)
[2023-05-31] MEDS: carvediloL 25 MG TABLET PO (20:39)
[2023-05-31] MEDS: QUEtiapine Fumarate 50 MG TABLET PO (20:40)
[2023-05-31] MEDS: Montelukast Sodium 10 MG TABLET PO (20:40)
[2023-05-31] MEDS: traZODone HCL 100 MG TABLET PO (20:43)
[2023-05-31] MEDS: Benzonatate 100 MG CAPSULE PO (20:43)
[2023-06-01] VITALS (11 sets, daily range): BP systolic 112–159; BP diastolic 72–92; PULSE 81–105; RESP 17–22; TEMP 36.1–36.4; O2SAT 92–100
[2023-06-01] MEDS: 0.9 % Sodium Chloride Flush 3 ML SYRINGE IVFLUSH ×3 (00:07→16:32)
[2023-06-01] MEDS: Albuterol Sulfate (0.083%) 2.5 MG/3 ML VIAL.NEB INHALE (04:00)
[2023-06-01] MEDS: Furosemide 100 MG/10 ML VIAL 60 MG IVPUSH (04:39)
[2023-06-01 07:33] LABS: Glucose, Whole Blood 120 mg/dL (60-115)
[2023-06-01] MEDS: methylPREDNISolone Sod Succ 125 MG/2 ML VIAL 60 MG IVPUSH ×2 (08:00→20:48)
[2023-06-01] MEDS: Losartan Potassium 50 MG TABLET 100 MG PO (08:00)
[2023-06-01] MEDS: guaiFENesin LA 600 MG TAB.ER.12H PO ×2 (08:01→20:50)
[2023-06-01] MEDS: QUEtiapine Fumarate 50 MG TABLET PO ×2 (08:01→20:50)
[2023-06-01] MEDS: Spironolactone 25 MG TABLET PO (08:01)
[2023-06-01] MEDS: predniSONE 5 MG TABLET PO (08:01)
[2023-06-01] MEDS: Oseltamivir Phosphate 75 MG CAPSULE PO ×2 (08:01→20:49)
[2023-06-01] MEDS: carvediloL 25 MG TABLET PO ×2 (08:01→20:49)
[2023-06-01] MEDS: Sertraline HCL 100 MG TABLET 200 MG PO (08:01)
[2023-06-01] MEDS: Folic Acid 1 MG TABLET PO (08:01)
[2023-06-01] MEDS: Albuterol/Iprat 2.5/0.5MG 3 ML AMPUL.NEB INHALE ×6 (08:02→19:55)
[2023-06-01] MEDS: Tiotropium Bromide 2.5 mcg 1 PUFF/2.5 MCG MIST.INHAL 2 PUFF INHALE (08:08)
[2023-06-01] MEDS: Fluticasone/Vilanterol 100/25 BLST.W.DEV 1 PUFF INHALE (08:08)
[2023-06-01 08:11] LABS: Alanine Aminotransferase 38 U/L (0-31); Albumin Level 3.6 g/dL (3.5-5.0); Alkaline Phosphatase 87 U/L (39-117); Anion Gap 11 (12-20); Aspartate Amino Transferase 32 U/L (5-31); Bilirubin Total 0.4 mg/dL (0.0-1.0); Blood Urea Nitrogen 20 mg/dL (9-16); Calcium 8.9 mg/dL (8.4-10.2); Carbon Dioxide 33 mmol/L (22-29); Chloride 101 mmol/L (96-108); Creatinine Clr Calc Pharmacy 47.8; Estimated Glomerular Filt Rate 56; Glucose Random 124 mg/dL (60-115); Potassium 4.2 mmol/L (3.3-5.1); Sodium 141 mmol/L (135-145); Total Protein 6.5 g/dL (6.5-8.0)
--- NOTE | 2023-06-01 09:47 | PM.CNCAR ---
History of Present Illness History of Present Illness Date of Service: 06/01/23 Requesting physician: Kailey Angelo Consult reason: troponin elevation and other (Respiratory failure) Chief complaint: Hypoxic Failure Narrative: I was consulted to see Paola in cardiology consultation today for hypoxemic respiratory failure and elevated troponins. Patient 62-year-old female in the past with a history of systolic heart failure with LVEF of 30-35% however most recent echocardiogram in December showed LVEF of 50-55% with moderate to severe mitral regurgitation with moderate pulmonary hypertension elevated right atrial pressures. She has advanced COPD requiring home oxygen at 2-3 liters/minute. Recurrent hospitalization with hypoxemic respiratory failure. History of sleep apnea on CPAP therapy but noncompliant. She has no prior known documented coronary artery disease and has no workup for that. She has history of diabetes, hypertension, congestive heart failure now more likely heart failure preserved ejection fraction. She came to the hospital with progressive shortness of breath and weakness and was significantly hypoxic on presentation. She had no chest pain. No orthopnea, PND, leg edema. No palpitations. Came in and was noted to have elevated troponins which was initially 100 and subsequently in the 400s. It was felt that this was related and secondary to hypoxemia. IV heparin was not started appropriately. She has been prescribed treatment for COPD exacerbation. Review of Systems Constitutional: Constitutional: Reports fever(s) and Reports weakness Eyes: Eyes: Reports no additional eye complaints Cardiovascular: Cardiovascular: Denies chest pain, Denies leg edema, Denies Loss of Consciousness, Denies palpitations and Reports dyspnea Respiratory: Respiratory: Reports cough, Reports dyspnea and Reports wheezing Gastrointestinal: Gastrointestinal: Reports no additional gastrointestinal complaints Genitourinary: Genitourinary: Reports no additional female genitourinary complaints Musculoskeletal: Musculoskeletal: Reports no additional musculoskeletal complaints Neurologic: Reports system reviewed and no additional complaints, except as documented and Reports weakness Psychiatric: Psychiatric: Reports no additional psychiatric complaints Endocrine: Endocrine: Reports no additional endocrine complaints and Denies palpitations Allergic/Immunologic: Allergic/Immunologic: Reports wheezing PMFSH Past Medical History Medical History Congestive heart failure Mild recurrent major depression Hospital discharge follow-up Severe chronic obstructive pulmonary disease Diabetes Mitral regurgitation Chest pain Lumbar degenerative disc disease Right lower lobe pneumonitis Congestive heart failure Acute and chronic respiratory failure with hypoxia Respiratory failure with hypoxia and hypercapnia Atelectasis, right Hypertensive emergency Pulmonary hypertension Osteoporosis Essential hypertension Supraventricular tachycardia Nonischemic cardiomyopathy Non-rheumatic mitral regurgitation Tobacco abuse Depression Anxiety Chronic respiratory failure HFrEF (heart failure with reduced ejection fraction) KELLIE (obstructive sleep apnea) HLD (hyperlipidemia) HTN (hypertension) Family History Family History Father No problems noted. 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) Unable to assess alcohol history related to: Unable to respond Alcohol intake: never Patient Tobacco Use Status: Former Tobacco user Tobacco use type: Cigarette Cigarette Packs Per Day: 6 Cigarettes Per Day: 120.0 Years Smoked: 50 +/- e-Cigarette/Vaping Use: Never Used Second Hand Smoke Exposure: No Advance Directives Date on File: 04/30/20 service: No Current occupational status: disabled Cognitive needs: Yes Hearing needs: No Vision needs: No Meds Allergies Allergy/AdvReac Type Severity Reaction Status Date / Time nicotine [Nicotine] Allergy Mild ITCHING Verified 05/31/23 09:23 WITH THE PATCHES topiramate Allergy Mild inadequealte Verified 05/31/23 09:23 response Active Medications: Current Medications Acetaminophen (Acetaminophen 325 Mg Tablet) 650 mg PO Q6H PRN PRN Reason: Pain, Mild (Pain Scale 1-3) Last Admin: 05/31/23 20:43 Dose: 650 mg Albuterol Sulfate (Albuterol Sulfate (0.083%) 2.5 Mg/3 Ml Vial.Neb) 2.5 mg INHALE Q4H PRN PRN Reason: Shortness of Breath/Wheezing Last Admin: 06/01/23 04:00 Dose: 2.5 mg Albuterol Sulfate (Albuterol Sulfate 90 Mcg 8 Gm Inhaler) 2 puff INHALE Q4H PRN PRN Reason: Shortness Of Breath Or Wheezing Albuterol/Ipratropium (Albuterol/Iprat 2.5/0.5mg 3 Ml Ampul.Neb) 3 ml INHALE RQ4H WHILE AWAKE [facility] Last Admin: 06/01/23 08:02 Dose: 3 ml Albuterol/Ipratropium (Albuterol/Iprat 2.5/0.5mg 3 Ml Ampul.Neb) 3 ml INHALE TID [facility] Last Admin: 06/01/23 08:04 Dose: Not Given Amlodipine Besylate (Amlodipine Besylate 5 Mg Tablet) 5 mg PO BEDTIME [facility]; Protocol Last Admin: 05/31/23 20:39 Dose: 5 mg Benzonatate (Benzonatate 100 Mg Capsule) 200 mg PO TID [facility] Carvedilol (Carvedilol 25 Mg Tablet) 25 mg PO BID [facility]; Protocol Last Admin: 06/01/23 08:01 Dose: 25 mg Enoxaparin Sodium (Enoxaparin Sodium 40 Mg/0.4 Ml Syringe) 40 mg SUBCUT Q24H [facility] Last Admin: 05/31/23 15:20 Dose: 40 mg Fluticasone/Vilanterol (Fluticasone/Vilanterol 100/25 Blst.W.Dev) 1 puff INHALE DAILY [facility] Last Admin: 06/01/23 08:08 Dose: 1 puff Folic Acid (Folic Acid 1 Mg Tablet) 1 mg PO DAILY [facility] Last Admin: 06/01/23 08:01 Dose: 1 mg Furosemide (Furosemide 40 Mg Tablet) 40 mg PO DAILY [facility]; Protocol Guaifenesin (Guaifenesin La 600 Mg Tab.Er.12h) 600 mg PO BID [facility] Last Admin: 06/01/23 08:01 Dose: 600 mg Guaifenesin (Guaifenesin La 600 Mg Tab.Er.12h) 600 mg PO BID [facility] Last Admin: 06/01/23 07:43 Dose: Not Given Insulin Human Lispro (Insulin Lispro 100 Unit/Ml 3 Ml Vial) 0 unit SUBCUT QIDACHS [facility]; Protocol Last Admin: 06/01/23 07:39 Dose: Not Given Losartan Potassium (Losartan Potassium 50 Mg Tablet) 100 mg PO DAILY [facility]; Protocol Last Admin: 06/01/23 08:00 Dose: 100 mg Methylprednisolone Sodium Succinate (Methylprednisolone Sod Succ 125 Mg/2 Ml Vial) 60 mg IVPUSH Q12H [facility] Last Admin: 06/01/23 08:00 Dose: 60 mg Montelukast Sodium (Montelukast Sodium 10 Mg Tablet) 10 mg PO BEDTIME [facility] Last Admin: 05/31/23 20:40 Dose: 10 mg Ondansetron HCl (Ondansetron Hcl 4 Mg/2 Ml Vial) 4 mg IVPUSH Q8H PRN PRN Reason: Nausea and Vomiting Oseltamivir Phosphate (Oseltamivir Phosphate 75 Mg Capsule) 75 mg PO Q12H [facility] Stop: 06/04/23 21:31 Last Admin: 06/01/23 08:01 Dose: 75 mg Prednisone (Prednisone 5 Mg Tablet) 5 mg PO DAILY [facility] Last Admin: 06/01/23 08:01 Dose: 5 mg Quetiapine Fumarate (Quetiapine Fumarate 50 Mg Tablet) 50 mg PO BID [facility] Last Admin: 06/01/23 08:01 Dose: 50 mg Sertraline HCl (Sertraline Hcl 100 Mg Tablet) 200 mg PO DAILY [facility] Last Admin: 06/01/23 08:01 Dose: 200 mg Sodium Chloride (0.9 % Sodium Chloride Flush 3 Ml Syringe) [facility] Last Admin: 06/01/23 08:02 Dose: 3 ml Spironolactone (Spironolactone 25 Mg Tablet) 25 mg PO DAILY [facility]; Protocol Last Admin: 06/01/23 08:01 Dose: 25 mg Tiotropium [place] (Tiotropium [place] 2.5 Mcg 1 Puff/2.5 Mcg Mist.Inhal) 2 puff INHALE DAILY [facility] Last Admin: 06/01/23 08:08 Dose: 1 puff Trazodone HCl (Trazodone Hcl 100 Mg Tablet) 100 mg PO BEDTIME PRN PRN Reason: Insomnia Last Admin: 05/31/23 20:43 Dose: 100 mg Home Medications Medication Instructions Recorded Confirmed Last Taken Type trazodone 50 mg tablet 100 mg PO BEDTIME PRN Insomnia 03/08/20 05/31/23 05/25/23 History furosemide 40 mg tablet (Lasix) 40 mg PO DAILY 04/03/23 05/31/23 05/25/23 History albuterol sulfate 90 mcg/actuation 2 puff inhalation Q4-6H PRN 04/30/23 05/31/23 05/25/23 History aerosol inhaler (Ventolin HFA) Shortness Of Breath Or Wheezing fluticasone furoate 100 1 inh inhalation DAILY 04/30/23 05/31/23 05/25/23 History mcg-vilanterol 25 mcg/dose inhalation powder montelukast 10 mg tablet 10 mg PO BEDTIME 04/30/23 05/31/23 05/25/23 History quetiapine 50 mg tablet 50 mg PO BID 04/30/23 05/31/23 05/25/23 History sertraline 100 mg tablet 200 mg PO DAILY 04/30/23 05/31/23 05/25/23 History tiotropium bromide 18 mcg capsule 1 cap inhalation DAILY 04/30/23 05/31/23 05/25/23 History with inhalation device (Spiriva with HandiHaler) Physical Exam Vital Signs: Vital Signs: Last Vital Signs Temp 97.4 F 06/01/23 07:22 Pulse 81 06/01/23 08:10 Resp 18 06/01/23 08:10 BP 133/87 06/01/23 07:22 Pulse Ox 97 06/01/23 07:22 O2 Del Method Nasal Cannula 06/01/23 07:22 O2 Flow Rate 4 06/01/23 04:00 Oxygen Flow Rate 6 05/31/23 09:19 BMI result Body Mass Index 26.3 Const: General: cooperative, alert, awake, in distress mild and respiratory and other (Frustrated) Nutritional Appearance: overweight Orientation/consciousness: patient oriented x3 HEENT: Head: Yes normocephalic and Yes atraumatic Neck: Neck: Yes trachea midline, Yes supple and Yes no JVD Resp: Effort & Inspection: normal respiratory effort Auscultation: wheezes and diminished lung sounds Cardio: Jugular venous distension: no JVD Palpation: normal PMI Rate: regular rate Rhythm: regular rhythm Heart sounds: S1 normal heart sound present, S2 normal heart sound present, no click, no gallops, no murmurs and no rubs GI: Auscultation: normal bowel sounds Skin: General skin exam: no rashes or lesions noted and dry skin Neuro: General: patient oriented x3 and no focal motor deficits Extrem: General: Yes no clubbing, cyanosis or edema Objective Labs and Meds 05/31/23 09:52 06/01/23 07:26 Lab results: Laboratory Results - last 24 hr 05/31/23 05/31/23 05/31/23 09:51 09:52 10:02 WBC 9.5 RBC 4.08 L Hgb 11.3 L Hct 35.4 L MCV 86.8 MCH 27.7 MCHC 31.9 RDW 15.2 Plt Count 142 L MPV 10.1 Immature Gran % (Auto) Cancelled Neut % (Auto) Cancelled Lymph % (Auto) Cancelled [place] % (Auto) Cancelled Eos % (Auto) Cancelled Baso % (Auto) Cancelled Lymph # (Auto) Cancelled [place] # (Auto) Cancelled Eos # (Auto) Cancelled Baso # (Auto) Cancelled Abs Immat Gran (auto) Cancelled Absolute Neuts (auto) Cancelled Absolute Nucleated RBC 0.000 Nucleated RBC % (auto) 0.0 Neutrophils % (Manual) 93 H Band Neutrophils % 3 Lymphocytes % (Manual) 1 L Monocytes % (Manual) 3 Abs Neuts (Manual) 9.1 H Lymphocytes # (Manual) 0.1 L Monocytes # (Manual) 0.3 Toxic Vacuolation PRESENT Platelet Estimate SLIGHTLY DECREASED Plt Morphology Comment NORMAL RBC Morphology NOTED Ovalocytes 1+ (5-14) Hold Purple Top PT 11.9 INR 1.0 VBG pH 7.39 VBG pCO2 49 VBG pO2 41 VBG HCO3 30 H VBG O2 Saturation 67.0 VBG Base Excess 5.0 Sodium 137 Potassium 3.8 Chloride 100 Carbon Dioxide 26 Anion Gap 15 BUN 14 Creatinine 1.01 Estim Creat Clear Calc 47.8 Estimated GFR 56 POC Glucose Random Glucose 204 H Lactic Acid 2.0 Calcium 8.8 D Magnesium 1.9 Total Bilirubin 0.7 Direct Bilirubin 0.2 AST 32 H ALT 28 Alkaline Phosphatase 86 Troponin I High Sens 140.2 H* D B-Natriuretic Peptide 463 H Total Protein 6.8 Albumin 3.6 Lipase 17 Procalcitonin 0.08 COVID-19 (ANEL) Negative COVID-19 Clin Com See Note Influenza Type A (ELGIN) Influenza Type B (ELGIN) Influenza A & B Note 05/31/23 05/31/23 05/31/23 12:06 12:51 16:38 WBC RBC Hgb Hct MCV MCH MCHC RDW Plt Count MPV Immature Gran % (Auto) Neut % (Auto) Lymph % (Auto) [place] % (Auto) Eos % (Auto) Baso % (Auto) Lymph # (Auto) [place] # (Auto) Eos # (Auto) Baso # (Auto) Abs Immat Gran (auto) Absolute Neuts (auto) Absolute Nucleated RBC Nucleated RBC % (auto) Neutrophils % (Manual) Band Neutrophils % Lymphocytes % (Manual) Monocytes % (Manual) Abs Neuts (Manual) Lymphocytes # (Manual) Monocytes # (Manual) Toxic Vacuolation Platelet Estimate Plt Morphology Comment RBC Morphology Ovalocytes Hold Purple Top PT INR VBG pH VBG pCO2 VBG pO2 VBG HCO3 VBG O2 Saturation VBG Base Excess Sodium Potassium Chloride Carbon Dioxide Anion Gap BUN Creatinine Estim Creat Clear Calc Estimated GFR POC Glucose 247 H Random Glucose Lactic Acid Calcium Magnesium Total Bilirubin Direct Bilirubin AST ALT Alkaline Phosphatase Troponin I High Sens 492.3 H* D B-Natriuretic Peptide Total Protein Albumin Lipase Procalcitonin COVID-19 (ANEL) COVID-19 Clin Com Influenza Type A (ELGIN) Positive A Influenza Type B (ELGIN) Negative Influenza A & B Note See Note 05/31/23 06/01/23 06/01/23 19:56 07:26 07:29 WBC RBC Hgb Hct MCV MCH MCHC RDW Plt Count MPV Immature Gran % (Auto) Neut % (Auto) Lymph % (Auto) [place] % (Auto) Eos % (Auto) Baso % (Auto) Lymph # (Auto) [place] # (Auto) Eos # (Auto) Baso # (Auto) Abs Immat Gran (auto) Absolute Neuts (auto) Absolute Nucleated RBC Nucleated RBC % (auto) Neutrophils % (Manual) Band Neutrophils % Lymphocytes % (Manual) Monocytes % (Manual) Abs Neuts (Manual) Lymphocytes # (Manual) Monocytes # (Manual) Toxic Vacuolation Platelet Estimate Plt Morphology Comment RBC Morphology Ovalocytes Hold Purple Top SEE NOTE PT INR VBG pH VBG pCO2 VBG pO2 VBG HCO3 VBG O2 Saturation VBG Base Excess Sodium 141 Potassium 4.2 Chloride 101 Carbon Dioxide 33 H Anion Gap 11 L BUN 20 H Creatinine 1.01 Estim Creat Clear Calc 47.8 Estimated GFR 56 POC Glucose 83 120 H Random Glucose 124 H Lactic Acid Calcium 8.9 Magnesium Total Bilirubin 0.4 Direct Bilirubin AST 32 H ALT 38 H Alkaline Phosphatase 87 Troponin I High Sens B-Natriuretic Peptide Total Protein 6.5 Albumin 3.6 Lipase Procalcitonin COVID-19 (ANEL) COVID-19 Clin Com Influenza Type A (ELGIN) Influenza Type B (ELGIN) Influenza A & B Note Imaging Radiologist's impression: Impressions Chest X-Ray 05/31/23 09:58 IMPRESSION: 1. No significant change when compared to 05/26/2023 with redemonstration of bibasilar streaky opacities, likely representing subsegmental atelectasis. 2. Severe emphysema. 3. Findings suggestive of pulmonary hypertension, consider correlation with echocardiogram as clinically warranted. Assessment and Plan (1) NSTEMI (non-ST elevated myocardial infarction): Status: Acute Patient with non ST-elevation myocardial infarction secondary to severe hypoxemia related to COPD exacerbation related to flu. Continue treat underlying condition. No need for IV heparin. She will need ischemic evaluation as an outpatient which will be scheduled. Continue aspirin statin therapy. Continue aggressive blood pressure control. She has clinically not in heart failure at this point in time and will continue her usual diuretic therapy currently on spironolactone. LV systolic function has improved on neurohormonal modulation with carvedilol, spironolactone and losartan. She also on amlodipine therapy for blood pressure control. Can continue to maximize losartan therapy. Will sign of the case at this point time and will set up for outpatient follow-up. Thank you for allowing me to partake in her care Procedures Date of Service Date of Service: 06/01/23
[2023-06-01 11:55] LABS: Glucose, Whole Blood 173 mg/dL (60-115)
[2023-06-01] MEDS: Benzonatate 100 MG CAPSULE 200 MG PO ×3 (12:26→20:49)
[2023-06-01] MEDS: Insulin Lispro 100 UNIT/ML 3 ML VIAL SUBCUT ×2 (12:27→16:32)
--- NOTE | 2023-06-01 12:51 | HO.PM.IMPN ---
Subjective Subjective Date of Service: 06/01/23 Interval History: Seen and evaluated this morning feels better but still coughing denies any fever or chills reporting dyspnea with adjusting position in bed Review of Systems Review of Systems: Yes all other systems are reviewed and are negative Physical Exam Vital Signs: Vital Signs: Last Vital Signs Temp 97.3 F 06/01/23 12:00 Pulse 83 06/01/23 12:00 Resp 19 06/01/23 12:00 BP 132/78 06/01/23 12:00 Pulse Ox 94 06/01/23 12:00 O2 Del Method Nasal Cannula 06/01/23 12:00 O2 Flow Rate 4 06/01/23 04:00 Oxygen Flow Rate 6 05/31/23 09:19 BMI result Body Mass Index 26.3 Const: Other: Constitutional : Awake, interactive, in mild resp distress Neck : Normal inspection, Supple Cardiovascular : RRR, no JVP, no lower extremity edema Respiratory : decreased bilateral air entry, no crackles, bilateral scattered wheezes Gastrointestinal: soft, lax, Normal bowel sounds, Non tender Skin : Warm, Dry Neurological : Alert & oriented x3, No focal deficit Objective Data Active Medications Acetaminophen (Acetaminophen 325 Mg Tablet) 650 mg PO Q6H PRN PRN Reason: Pain, Mild (Pain Scale 1-3) Last Admin: 05/31/23 20:43 Dose: 650 mg Documented By: PARVEEN Albuterol Sulfate (Albuterol Sulfate (0.083%) 2.5 Mg/3 Ml Vial.Neb) 2.5 mg INHALE Q4H PRN PRN Reason: Shortness of Breath/Wheezing Last Admin: 06/01/23 04:00 Dose: 2.5 mg Documented By: ERICA Albuterol Sulfate (Albuterol Sulfate 90 Mcg 8 Gm Inhaler) 2 puff INHALE Q4H PRN PRN Reason: Shortness Of Breath Or Wheezing Albuterol/Ipratropium (Albuterol/Iprat 2.5/0.5mg 3 Ml Ampul.Neb) 3 ml INHALE RQ4H WHILE AWAKE [facility] Last Admin: 06/01/23 11:30 Dose: 3 ml Documented By: POWER Albuterol/Ipratropium (Albuterol/Iprat 2.5/0.5mg 3 Ml Ampul.Neb) 3 ml INHALE TID [facility] Last Admin: 06/01/23 08:04 Dose: Not Given Documented By: POWER Non-Admin Reason: Duplicate Order Amlodipine Besylate (Amlodipine Besylate 5 Mg Tablet) 5 mg PO BEDTIME [facility]; Protocol Last Admin: 05/31/23 20:39 Dose: 5 mg Documented By: PARVEEN Benzonatate (Benzonatate 100 Mg Capsule) 200 mg PO TID [facility] Last Admin: 06/01/23 12:26 Dose: 200 mg Documented By: MARTA Carvedilol (Carvedilol 25 Mg Tablet) 25 mg PO BID [facility]; Protocol Last Admin: 06/01/23 08:01 Dose: 25 mg Documented By: MARTA Enoxaparin Sodium (Enoxaparin Sodium 40 Mg/0.4 Ml Syringe) 40 mg SUBCUT Q24H [facility] Last Admin: 05/31/23 15:20 Dose: 40 mg Documented By: HORACE Fluticasone/Vilanterol (Fluticasone/Vilanterol 100/25 Blst.W.Dev) 1 puff INHALE DAILY [facility] Last Admin: 06/01/23 08:08 Dose: 1 puff Documented By: POWER Folic Acid (Folic Acid 1 Mg Tablet) 1 mg PO DAILY [facility] Last Admin: 06/01/23 08:01 Dose: 1 mg Documented By: MARTA Furosemide (Furosemide 40 Mg Tablet) 40 mg PO DAILY [facility]; Protocol Guaifenesin (Guaifenesin La 600 Mg Tab.Er.12h) 600 mg PO BID [facility] Last Admin: 06/01/23 08:01 Dose: 600 mg Documented By: MRATA Guaifenesin (Guaifenesin La 600 Mg Tab.Er.12h) 600 mg PO BID [facility] Last Admin: 06/01/23 07:43 Dose: Not Given Documented By: MARTA Non-Admin Reason: Duplicate Order Insulin Human Lispro (Insulin Lispro 100 Unit/Ml 3 Ml Vial) 0 unit SUBCUT QIDACHS [facility]; Protocol Last Admin: 06/01/23 12:27 Dose: 2 unit Documented By: MARTA Losartan Potassium (Losartan Potassium 50 Mg Tablet) 100 mg PO DAILY [facility]; Protocol Last Admin: 06/01/23 08:00 Dose: 100 mg Documented By: MARTA Methylprednisolone Sodium Succinate (Methylprednisolone Sod Succ 125 Mg/2 Ml Vial) 60 mg IVPUSH Q12H [facility] Last Admin: 06/01/23 08:00 Dose: 60 mg Documented By: MARTA Montelukast Sodium (Montelukast Sodium 10 Mg Tablet) 10 mg PO BEDTIME [facility] Last Admin: 05/31/23 20:40 Dose: 10 mg Documented By: PARVEEN Ondansetron HCl (Ondansetron Hcl 4 Mg/2 Ml Vial) 4 mg IVPUSH Q8H PRN PRN Reason: Nausea and Vomiting Oseltamivir Phosphate (Oseltamivir Phosphate 75 Mg Capsule) 75 mg PO Q12H [facility] Stop: 06/04/23 21:31 Last Admin: 06/01/23 08:01 Dose: 75 mg Documented By: MARTA Prednisone (Prednisone 5 Mg Tablet) 5 mg PO DAILY [facility] Last Admin: 06/01/23 08:01 Dose: 5 mg Documented By: MARTA Quetiapine Fumarate (Quetiapine Fumarate 50 Mg Tablet) 50 mg PO BID [facility] Last Admin: 06/01/23 08:01 Dose: 50 mg Documented By: MARTA Sertraline HCl (Sertraline Hcl 100 Mg Tablet) 200 mg PO DAILY [facility] Last Admin: 06/01/23 08:01 Dose: 200 mg Documented By: MARTA Sodium Chloride (0.9 % Sodium Chloride Flush 3 Ml Syringe) [facility] Last Admin: 06/01/23 08:02 Dose: 3 ml Documented By: MARTA Spironolactone (Spironolactone 25 Mg Tablet) 25 mg PO DAILY [facility]; Protocol Last Admin: 06/01/23 08:01 Dose: 25 mg Documented By: MARTA Tiotropium [place] (Tiotropium [place] 2.5 Mcg 1 Puff/2.5 Mcg Mist.Inhal) 2 puff INHALE DAILY [facility] Last Admin: 06/01/23 08:08 Dose: 1 puff Documented By: POWER Trazodone HCl (Trazodone Hcl 100 Mg Tablet) 100 mg PO BEDTIME PRN PRN Reason: Insomnia Last Admin: 05/31/23 20:43 Dose: 100 mg Documented By: PARVEEN Labs 05/31/23 09:52 06/01/23 07:26 Labs: Laboratory Results - last 24 hr 05/31/23 05/31/23 05/31/23 12:51 16:38 19:56 Hold Purple Top Anion Gap Estim Creat Clear Calc Estimated GFR POC Glucose 247 H 83 Random Glucose Calcium Total Bilirubin AST ALT Alkaline Phosphatase Total Protein Albumin Influenza Type A (ELGIN) Positive A Influenza Type B (ELGIN) Negative Influenza A & B Note See Note 06/01/23 06/01/23 06/01/23 07:26 07:29 11:51 Hold Purple Top SEE NOTE Anion Gap 11 L Estim Creat Clear Calc 47.8 Estimated GFR 56 POC Glucose 120 H 173 H Random Glucose 124 H Calcium 8.9 Total Bilirubin 0.4 AST 32 H ALT 38 H Alkaline Phosphatase 87 Total Protein 6.5 Albumin 3.6 Influenza Type A (ELGIN) Influenza Type B (ELGIN) Influenza A & B Note Microbiology Microbiology Results: Microbiology 05/31/23 09:51 Blood Culture - Preliminary Blood - Venous No growth after 24 hours. 05/31/23 09:51 Blood Culture - Preliminary Blood - Venous No growth after 24 hours. Assessment and Plan (1) NSTEMI (non-ST elevated myocardial infarction): Status: Acute (2) Influenza A: Status: Acute (3) Asthma with exacerbation: Status: Acute (4) Hypoxic respiratory failure: Status: Acute Plan A 62 years old woman with PMH of COPD on home O2 2-3 L, systolic congestive heart failure (EF 30-35%), pulmonary hypertension, anxiety, depression, essential hypertension and KELLIE presents to ED by EMS of Hypoxia of 70s and respiratory distress. # acute on chronic Hypoxemic respiratory failure, 2/2 Acute exacerbation of COPD 2/2 Flu A infection improving bronchodilator therapy IV steroids Tamiflu for 5 days Continue montelukast. Wean O2 down as tolerated # NSTEMI no chest pain, no EKG changes to suggest ACS likely type 2 from hypoxia cardiology consult, NSTEMI 2/2 hypoxemia , no need for Heparin. outpatient ischemic work up Hold on Heparin per cardiology , start Aspirin keep on Tele repeat EKG and Trop for any chest pain # Hx systolic CHF not in exacerbation spironolactone and Coreg. Wean O2 down to 4L with goal of O2 sat >90% # Anxiety and depression. Continue sertraline. Seroquel and trazodone # Type 2 diabetes mellitus. Blood glucose monitoring before meals at bedtime. Blood glucose control with insulin sliding scale. Diabetic diet # Essential hypertension. Continue Coreg, spironolactone and losartan. # Obstructive sleep apnea. Not tolerating CPAP. # Tobacco dependence. Tobacco cessation education. Nicotine patch as needed. VTE prophylaxis: Lovenox Code status: Full Patient would require hospitalization overnight for respiratory failure treatment given her comorbidities and recurrent hospitalization. She will require supplemental oxygen, close oxygen saturation monitoring, bronchodilator therapy and steroids Quality Stroke Does the patient have a stroke diagnosis?: No VTE Prior VTE?: No VTE Risk Level:: Medical - moderate - high VTE Device Contraindication: Treatment Not Indicated VTE Drug Contraindication: N/A - Med Ordered
--- NOTE | 2023-06-01 13:08 | P.CDIM_ITS ---
PROVIDER RESPONSE TEXT: To clarify, the appropriate diagnosis supported by the clinical indicators: Diabetes mellitus Type 2 with hyperglycemia QUERY TEXT: PHYSICIAN'S DOCUMENTATION REQUEST Date of Query: 06/01/2023 08:52 AM EST Patient Name: Paola Ross Admit Date: 05/31/2023 Dear Kailey Angelo, A review of the medical record indicates additional documentation may be needed. Please review below and update the documentation accordingly. Clinical Indicators: LAB FINDINGS: POC glucose 247 H Inulin Insulin sliding scale/Diabetic diet Is there a diagnosis that correlates with these lab findings and a diagnosis of Diabetes: Diabetes mellitus Type 2 with hyperglycemia Other etiology of lab findings Other (explain) Clinically unable to determine (explain) Thank you, Genna Farr, CCS, CDIS Use of terms such as suspected, likely, concern for, or probable (associated with a specific diagnosi s that is being evaluated, monitored, or treated as if it exists) are acceptable and can be coded in the inpatient se tting, when documented at the time of discharge. Please use your independent medical judgment in providing your response. THIS QUERY IS PART OF THE PERMANENT MEDICAL RECORD
--- NOTE | 2023-06-01 13:11 | P.CDIM_ITS ---
PROVIDER RESPONSE TEXT: To clarify, the appropriate diagnosis supported by the clinical indicators: Other (explain): Acute COPD exacerbation QUERY TEXT: PHYSICIAN'S DOCUMENTATION REQUEST Date of Query: 06/01/2023 08:55 AM EST Patient Name: Paola Ross Admit Date: 05/31/2023 Dear Kailey Angelo, A review of the medical record indicates additional documentation may be needed. Please review below and update the documentation accordingly. Clinical indicators: ED: Clinical impression - Severe persistent asthma with exacerbation COPD/chronic respiratory failure 4 L NC shortness of breath, Albuterol Known history of: COPD, asthma and congestive heart failure Progress note 05/31 - Acute exacerbation of COPD Based on the above, please clarify in the Progress Notes further specificity regarding the type and a cuity of the asthma: Mild intermittent Mild persistent Moderate persistent Severe persistent Asthma with underlying COPD and indicate if with acute lower respiratory infection Other (explain) Clinically unable to determine (explain) Thank you, Genna Farr, CCS, CDIS Use of terms such as suspected, likely, concern for, or probable (associated with a specific diagnosi s that is being evaluated, monitored, or treated as if it exists) are acceptable and can be coded in the inpatient se tting, when documented at the time of discharge. Please use your independent medical judgment in providing your response. THIS QUERY IS PART OF THE PERMANENT MEDICAL RECORD
--- NOTE | 2023-06-01 13:48 | MHC.CM.PN ---
EMR reviewed and per MD rounds, pt is not medically cleared for D/C due to management of respiratory failure, pt with dyspnea, and requiring supplemental O2. CM will continue to follow.
[2023-06-01 16:27] LABS: Glucose, Whole Blood 184 mg/dL (60-115)
[2023-06-01] MEDS: Enoxaparin Sodium 40 MG/0.4 ML SYRINGE SUBCUT (16:31)
[2023-06-01] MEDS: Furosemide 40 MG TABLET PO (16:32)
[2023-06-01 20:01] LABS: Glucose, Whole Blood 127 mg/dL (60-115)
[2023-06-01] MEDS: amLODIPine Besylate 5 MG TABLET PO (20:49)
[2023-06-01] MEDS: Montelukast Sodium 10 MG TABLET PO (20:49)
[2023-06-02] VITALS (10 sets, daily range): BP systolic 125–140; BP diastolic 73–95; PULSE 72–83; RESP 18–21; TEMP 36–36.6; O2SAT 88–97
[2023-06-02] MEDS: 0.9 % Sodium Chloride Flush 3 ML SYRINGE IVFLUSH ×3 (00:44→16:24)
[2023-06-02 07:46] LABS: Glucose, Whole Blood 158 mg/dL (60-115)
[2023-06-02] MEDS: Albuterol/Iprat 2.5/0.5MG 3 ML AMPUL.NEB INHALE ×4 (07:50→20:15)
[2023-06-02] MEDS: Fluticasone/Vilanterol 100/25 BLST.W.DEV 1 PUFF INHALE (07:50)
[2023-06-02] MEDS: Tiotropium Bromide 2.5 mcg 1 PUFF/2.5 MCG MIST.INHAL 2 PUFF INHALE (07:53)
[2023-06-02] MEDS: methylPREDNISolone Sod Succ 125 MG/2 ML VIAL 60 MG IVPUSH ×2 (09:09→20:40)
[2023-06-02] MEDS: Acetaminophen 325 MG TABLET 650 MG PO ×2 (09:12→20:47)
[2023-06-02] MEDS: Sertraline HCL 100 MG TABLET 200 MG PO (09:13)
[2023-06-02] MEDS: Spironolactone 25 MG TABLET PO (09:13)
[2023-06-02] MEDS: Oseltamivir Phosphate 75 MG CAPSULE PO ×2 (09:13→20:39)
[2023-06-02] MEDS: predniSONE 5 MG TABLET PO (09:13)
[2023-06-02] MEDS: Benzonatate 100 MG CAPSULE 200 MG PO ×3 (09:13→20:39)
[2023-06-02] MEDS: Folic Acid 1 MG TABLET PO (09:13)
[2023-06-02] MEDS: Losartan Potassium 50 MG TABLET 100 MG PO (09:13)
[2023-06-02] MEDS: guaiFENesin LA 600 MG TAB.ER.12H PO ×2 (09:13→20:39)
[2023-06-02] MEDS: QUEtiapine Fumarate 50 MG TABLET PO ×2 (09:14→20:39)
[2023-06-02] MEDS: Furosemide 40 MG TABLET PO (09:14)
[2023-06-02] MEDS: Insulin Lispro 100 UNIT/ML 3 ML VIAL SUBCUT ×3 (09:14→16:24)
[2023-06-02] MEDS: carvediloL 25 MG TABLET PO ×2 (09:14→20:39)
--- NOTE | 2023-06-02 10:39 | HO.PM.IMPN ---
Subjective Subjective Date of Service: 06/02/23 Interval History: sob, difficulty clearing secretions Physical Exam Vital Signs: Vital Signs: Last Vital Signs Temp 97.2 F 06/02/23 07:20 Pulse 76 06/02/23 07:54 Resp 18 06/02/23 07:54 BP 136/89 06/02/23 07:20 Pulse Ox 93 06/02/23 07:20 O2 Del Method Nasal Cannula 06/02/23 07:20 O2 Flow Rate 2.5 06/02/23 07:20 Oxygen Flow Rate 6 05/31/23 09:19 BMI result Body Mass Index 26.3 Const: Other: Constitutional : Awake, interactive, in mild resp distress Neck : Normal inspection, Supple Cardiovascular : RRR, no JVP, no lower extremity edema Respiratory : decreased bilateral air entry, no crackles, bilateral scattered wheezes Gastrointestinal: soft, lax, Normal bowel sounds, Non tender Skin : Warm, Dry Neurological : Alert & oriented x3, No focal deficit Objective Data Active Medications Acetaminophen (Acetaminophen 325 Mg Tablet) 650 mg PO Q6H PRN PRN Reason: Pain, Mild (Pain Scale 1-3) Last Admin: 06/02/23 09:12 Dose: 650 mg Documented By: MARTA Albuterol Sulfate (Albuterol Sulfate (0.083%) 2.5 Mg/3 Ml Vial.Neb) 2.5 mg INHALE Q4H PRN PRN Reason: Shortness of Breath/Wheezing Last Admin: 06/01/23 04:00 Dose: 2.5 mg Documented By: ERICA Albuterol Sulfate (Albuterol Sulfate 90 Mcg 8 Gm Inhaler) 2 puff INHALE Q4H PRN PRN Reason: Shortness Of Breath Or Wheezing Albuterol/Ipratropium (Albuterol/Iprat 2.5/0.5mg 3 Ml Ampul.Neb) 3 ml INHALE RQ4H WHILE AWAKE [facility] Last Admin: 06/02/23 07:50 Dose: 3 ml Documented By: OLAMIDE Amlodipine Besylate (Amlodipine Besylate 5 Mg Tablet) 5 mg PO BEDTIME [facility]; Protocol Last Admin: 06/01/23 20:49 Dose: 5 mg Documented By: DOLLY Benzonatate (Benzonatate 100 Mg Capsule) 200 mg PO TID [facility] Last Admin: 06/02/23 09:13 Dose: 200 mg Documented By: MARTA Carvedilol (Carvedilol 25 Mg Tablet) 25 mg PO BID [facility]; Protocol Last Admin: 06/02/23 09:14 Dose: 25 mg Documented By: MARTA Enoxaparin Sodium (Enoxaparin Sodium 40 Mg/0.4 Ml Syringe) 40 mg SUBCUT Q24H [facility] Last Admin: 06/01/23 16:31 Dose: 40 mg Documented By: ALMA Fluticasone/Vilanterol (Fluticasone/Vilanterol 100/25 Blst.W.Dev) 1 puff INHALE DAILY [facility] Last Admin: 06/02/23 07:50 Dose: 1 puff Documented By: OLAMIDE Folic Acid (Folic Acid 1 Mg Tablet) 1 mg PO DAILY [facility] Last Admin: 06/02/23 09:13 Dose: 1 mg Documented By: MARTA Furosemide (Furosemide 40 Mg Tablet) 40 mg PO DAILY [facility]; Protocol Last Admin: 06/02/23 09:14 Dose: 40 mg Documented By: MARTA Guaifenesin (Guaifenesin La 600 Mg Tab.Er.12h) 600 mg PO BID [facility] Last Admin: 06/02/23 09:13 Dose: 600 mg Documented By: MARTA Guaifenesin (Guaifenesin La 600 Mg Tab.Er.12h) 600 mg PO BID [facility] Last Admin: 06/02/23 09:13 Dose: Not Given Documented By: MARTA Non-Admin Reason: Duplicate Order Insulin Human Lispro (Insulin Lispro 100 Unit/Ml 3 Ml Vial) 0 unit SUBCUT QIDACHS [facility]; Protocol Last Admin: 06/02/23 09:14 Dose: 2 unit Documented By: MARTA Losartan Potassium (Losartan Potassium 50 Mg Tablet) 100 mg PO DAILY [facility]; Protocol Last Admin: 06/02/23 09:13 Dose: 100 mg Documented By: MARTA Methylprednisolone Sodium Succinate (Methylprednisolone Sod Succ 125 Mg/2 Ml Vial) 60 mg IVPUSH Q12H [facility] Last Admin: 06/02/23 09:09 Dose: 60 mg Documented By: MARTA Montelukast Sodium (Montelukast Sodium 10 Mg Tablet) 10 mg PO BEDTIME [facility] Last Admin: 06/01/23 20:49 Dose: 10 mg Documented By: DOLLY Ondansetron HCl (Ondansetron Hcl 4 Mg/2 Ml Vial) 4 mg IVPUSH Q8H PRN PRN Reason: Nausea and Vomiting Oseltamivir Phosphate (Oseltamivir Phosphate 75 Mg Capsule) 75 mg PO Q12H [facility] Stop: 06/04/23 21:31 Last Admin: 06/02/23 09:13 Dose: 75 mg Documented By: MARTA Prednisone (Prednisone 5 Mg Tablet) 5 mg PO DAILY [facility] Last Admin: 06/02/23 09:13 Dose: 5 mg Documented By: MARTA Quetiapine Fumarate (Quetiapine Fumarate 50 Mg Tablet) 50 mg PO BID [facility] Last Admin: 06/02/23 09:14 Dose: 50 mg Documented By: MARTA Sertraline HCl (Sertraline Hcl 100 Mg Tablet) 200 mg PO DAILY [facility] Last Admin: 06/02/23 09:13 Dose: 200 mg Documented By: MARTA Sodium Chloride (0.9 % Sodium Chloride Flush 3 Ml Syringe) 3 ml IVFLUSH QSHIFT [facility] Last Admin: 06/02/23 09:14 Dose: 3 ml Documented By: MARTA Spironolactone (Spironolactone 25 Mg Tablet) 25 mg PO DAILY [facility]; Protocol Last Admin: 06/02/23 09:13 Dose: 25 mg Documented By: MARTA Tiotropium [place] (Tiotropium [place] 2.5 Mcg 1 Puff/2.5 Mcg Mist.Inhal) 2 puff INHALE DAILY [facility] Last Admin: 06/02/23 07:53 Dose: 2 puff Documented By: OLAMIDE Trazodone HCl (Trazodone Hcl 100 Mg Tablet) 100 mg PO BEDTIME PRN PRN Reason: Insomnia Last Admin: 05/31/23 20:43 Dose: 100 mg Documented By: RACHELQC Labs 05/31/23 09:52 06/01/23 07:26 Labs: Laboratory Results - last 24 hr 06/01/23 06/01/23 06/01/23 11:51 16:07 19:53 POC Glucose 173 H 184 H 127 H 06/02/23 07:24 POC Glucose 158 H Microbiology Microbiology Results: Microbiology 05/31/23 09:51 Blood Culture - Preliminary Blood - Venous No growth after 24 hours. 05/31/23 09:51 Blood Culture - Preliminary Blood - Venous No growth after 24 hours. Assessment and Plan (1) NSTEMI (non-ST elevated myocardial infarction): Status: Acute (2) Influenza A: Status: Acute (3) Asthma with exacerbation: Status: Acute (4) Hypoxic respiratory failure: Status: Acute Plan 62F PMH of chronic hypoxic respiratory failure due to COPD on home O2 2-3 L, chronic systolic congestive heart failure (EF 30-35%), pulmonary hypertension, anxiety, depression, essential hypertension and KELLIE presented to ED by EMS withHypoxia of 70s and respiratory distress. acute on chronic Hypoxemic respiratory failure, 2/2 COPD with acute decompensation due to Flu A infection bronchodilator therapy IV steroids Tamiflu for 5 days Continue montelukast. Wean O2 down as tolerated NSTEMI no chest pain, no EKG changes to suggest ACS likely type 2 from hypoxia cardiology consult, NSTEMI 2/2 hypoxemia , no need for Heparin. outpatient ischemic work up Hold on Heparin per cardiology , start Aspirin keep on Tele repeat EKG and Trop for any chest pain chronic systolic CHF not in exacerbation spironolactone and Coreg. Wean O2 down to 4L with goal of O2 sat >90% nxiety and depression. Continue sertraline. Seroquel and trazodone Type 2 diabetes mellitus. Blood glucose monitoring before meals at bedtime. Blood glucose control with insulin sliding scale. Diabetic diet Essential hypertension. Continue Coreg, spironolactone and losartan. Obstructive sleep apnea. Not tolerating CPAP. Tobacco dependence. Tobacco cessation education. Nicotine patch as needed. VTE prophylaxis: Lovenox Code status: Full reason for continued hospitalization:still sob, wheezing Quality Stroke Does the patient have a stroke diagnosis?: No VTE Prior VTE?: No VTE Risk Level:: Medical - moderate - high VTE Device Contraindication: Treatment Not Indicated VTE Drug Contraindication: N/A - Med Ordered
[2023-06-02 11:06] LABS: Glucose, Whole Blood 205 mg/dL (60-115)
[2023-06-02 16:19] LABS: Glucose, Whole Blood 167 mg/dL (60-115)
[2023-06-02 19:54] LABS: Glucose, Whole Blood 147 mg/dL (60-115)
[2023-06-02] MEDS: Montelukast Sodium 10 MG TABLET PO (20:39)
[2023-06-02] MEDS: amLODIPine Besylate 5 MG TABLET PO (20:39)
[2023-06-02] MEDS: traZODone HCL 100 MG TABLET PO (20:47)
[2023-06-03] MEDS: 0.9 % Sodium Chloride Flush 3 ML SYRINGE IVFLUSH ×2 (00:16→08:10)
[2023-06-03 02:50] VITALS: BP 168/80; PULSE 65; RESP 16; TEMP 36; O2SAT 94
[2023-06-03 07:16] LABS: Hematocrit 34.7 % (37.0-47.0); Hemoglobin 11.1 g/dl (12.0-16.0); Mean Corpuscular Hemoglobin 27.6 pg (27.0-33.0); Mean Corpuscular Volume 86.3 fL (80.0-98.0); Mean Platelet Volume 10.7 fL (9.4-12.3); Platelet Count 128 X10*3/uL (160-400); Red Blood Count 4.02 X10*6/uL (4.20-5.50); Red Cell Distribution Width 15.7 % (11.0-16.0); White Blood Count 8.2 X10*3/uL (4.8-10.8)
[2023-06-03 07:33] LABS: Anion Gap 12 (12-20); Blood Urea Nitrogen 40 mg/dL (9-16); Calcium 8.8 mg/dL (8.4-10.2); Carbon Dioxide 30 mmol/L (22-29); Chloride 101 mmol/L (96-108); Estimated Glomerular Filt Rate 53; Glucose Fasting 162 mg/dL (60-99); Potassium 3.4 mmol/L (3.3-5.1); Sodium 140 mmol/L (135-145)
[2023-06-03 07:41] VITALS: BP 175/96; PULSE 70; RESP 20; TEMP 36.2; O2SAT 95
[2023-06-03 07:51] LABS: Glucose, Whole Blood 164 mg/dL (60-115)
[2023-06-03] MEDS: Insulin Lispro 100 UNIT/ML 3 ML VIAL SUBCUT (08:09)
[2023-06-03] MEDS: Sertraline HCL 100 MG TABLET 200 MG PO (08:10)
[2023-06-03] MEDS: methylPREDNISolone Sod Succ 125 MG/2 ML VIAL 60 MG IVPUSH (08:10)
[2023-06-03] MEDS: carvediloL 25 MG TABLET PO (08:11)
[2023-06-03] MEDS: Furosemide 40 MG TABLET PO (08:11)
[2023-06-03] MEDS: QUEtiapine Fumarate 50 MG TABLET PO (08:11)
[2023-06-03] MEDS: guaiFENesin LA 600 MG TAB.ER.12H PO (08:11)
[2023-06-03] MEDS: Benzonatate 100 MG CAPSULE 200 MG PO (08:11)
[2023-06-03] MEDS: Losartan Potassium 50 MG TABLET 100 MG PO (08:11)
[2023-06-03] MEDS: Folic Acid 1 MG TABLET PO (08:11)
[2023-06-03] MEDS: predniSONE 5 MG TABLET PO (08:11)
[2023-06-03] MEDS: Spironolactone 25 MG TABLET PO (08:11)
[2023-06-03] MEDS: Oseltamivir Phosphate 75 MG CAPSULE PO (08:11)
[2023-06-03] MEDS: Fluticasone/Vilanterol 100/25 BLST.W.DEV 1 PUFF INHALE (08:18)
[2023-06-03] MEDS: Tiotropium Bromide 2.5 mcg 1 PUFF/2.5 MCG MIST.INHAL 2 PUFF INHALE (08:18)
[2023-06-03 08:20] VITALS: PULSE 77; RESP 18; O2SAT 92
[2023-06-03] MEDS: Albuterol/Iprat 2.5/0.5MG 3 ML AMPUL.NEB INHALE (08:20)
--- NOTE | 2023-06-03 09:27 | PM.DS ---
DS: Providers Provider Date of Service: 06/03/23 Date of admission: 05/31/23 14:03 Primary care physician: Unknown Physician Consults: 05/31/23 13:04 Consult to Cardiology Stat Consulting Provider: [facility] Reason for consultation: elevated troponin Has provider been notified: Yes 05/31/23 14:34 Consult to Cardiology Routine Consulting Provider: [facility] Reason for consultation: Elevated Trop for eval and rec. DS: Diagnosis Discharge Diagnosis (1) NSTEMI (non-ST elevated myocardial infarction): Status: Acute (2) Influenza A: Status: Acute (3) Asthma with exacerbation: Status: Acute (4) Hypoxic respiratory failure: Status: Acute DS: Summary Hospital Course Hospital Course: from initial hpi: 62 years old woman with PMH of COPD on home O2 2-3 L, systolic congestive heart failure (EF 30-35%), pulmonary hypertension, anxiety, depression, essential hypertension and KELLIE presents to ED by EMS of Hypoxia of 70s and respiratory distress. The patient reports that she was doing fairly ok the first say after discharge but since last night she developed sudden onset SOB and feeling of weakness. denies smoking since discharge. No chest pain, palpitations, nausea, vomiting, diarrhea or urinary symptoms. had a run of 100 fever. In ED she was placed on Bipap with fair response as she was taken off it and maintaned her O2 sat in mid 90s. Tested positive for Flu A Admitted for further treatment hospital course: Patient was admitted for acute on chronic hypoxic respiratory failure secondary to COPD with acute decompensation due to flu. She was treated with IV steroids and DuoNebs. She was also given Tamiflu. Her symptoms significantly improved and she was weaned down to home O2 levels. She will be discharged on 5 more days of prednisone. Patient noted to have elevated troponin likely due to demand ischemia/NSTEMI type 2. Was seen by Cardiology who recommended outpatient follow-up for ischemic workup. for chronic systolic chf was stable on lasix, aldactone, coreg. for anxiety and depression continued on zoloft, seroquel, trazodone. for DM was continued on insulin. for htn continued on coreg, aldactone, losartan, for KELLIE on cpap. Time Attestation Discharge coordination time: Greater than 30 minutes Quality: Safe Use of Opioids Does Pt have an Active Cancer Diagnosis on the Problem List?: No Quality: Stroke Does the patient have a stroke diagnosis?: No Physical Exam Vital Signs: Vital Signs: Last Vital Signs Temp 97.1 F 06/03/23 07:41 Pulse 77 06/03/23 08:20 Resp 18 06/03/23 08:20 BP 175/96 H 06/03/23 07:41 Pulse Ox 95 06/03/23 07:41 O2 Del Method Nasal Cannula 06/03/23 07:41 O2 Flow Rate 3 06/03/23 07:41 Oxygen Flow Rate 6 05/31/23 09:19 BMI result Body Mass Index 26.3 General: AO X 3, no acute distress Resp: CTA bilateral, no accessory muscles used CVS: S1,S2,RRR GI: soft, non tender, non distended Neuro: motor grossly intact, alert Psych: appropriate affect, appropriate insight DS: Data Data Completed and Pending Completed studies during hospitalization [Text1]: Procedures Assistance with Respiratory Ventilation, Less than 24 Consecutive Hours, Continuous Positive Airway Pressure (04/30/23) Labs on day of discharge: Laboratory Results - last 24 hr 06/02/23 06/02/23 06/02/23 10:55 15:53 19:48 WBC RBC Hgb Hct MCV MCH MCHC RDW Plt Count MPV Absolute Nucleated RBC Nucleated RBC % (auto) Sodium Potassium Chloride Carbon Dioxide Anion Gap BUN Creatinine Estim Creat Clear Calc Estimated GFR POC Glucose 205 H 167 H 147 H Fasting Glucose Calcium 06/03/23 06/03/23 06:42 07:41 WBC 8.2 RBC 4.02 L Hgb 11.1 L Hct 34.7 L MCV 86.3 MCH 27.6 MCHC 32.0 RDW 15.7 Plt Count 128 L MPV 10.7 Absolute Nucleated RBC 0.000 Nucleated RBC % (auto) 0.0 Sodium 140 Potassium 3.4 Chloride 101 Carbon Dioxide 30 H Anion Gap 12 BUN 40 H Creatinine 1.05 Estim Creat Clear Calc 46.0 Estimated GFR 53 POC Glucose 164 H Fasting Glucose 162 H Calcium 8.8 Preliminary micro results at discharge 05/31/23 09:51 Blood Culture - Preliminary Blood - Venous No growth after 48 hours. 05/31/23 09:51 Blood Culture - Preliminary Blood - Venous No growth after 48 hours. Discharge Plan Discharge Anticipated Discharge Date/Time: 06/03/23 09:21 Patient Disposition: Home, Self-Care Discharge Diagnosis: asthma, flu Referrals: Physician,Unknown J [Primary Care Provider] - 1 Week Discharge Medications: New prednisone 20 mg tablet 40 mg PO DAILY Qty: 10 0RF Continued trazodone 50 mg tablet 100 mg PO BEDTIME PRN (Reason: Insomnia) folic acid 1 mg Tablet 1 mg PO DAILY Qty: 90 4RF montelukast 10 mg tablet 10 mg PO BEDTIME sertraline 100 mg tablet 200 mg PO DAILY tiotropium bromide [Spiriva with HandiHaler] 18 mcg capsule, w/inhalation device 1 cap inhalation DAILY albuterol sulfate [Ventolin HFA] 90 mcg/actuation HFA aerosol inhaler 2 puff inhalation Q4-6H PRN (Reason: Shortness Of Breath Or Wheezing) quetiapine 50 mg tablet 50 mg PO BID fluticasone furoate-vilanterol 100-25 mcg/dose blister with device 1 inh INHALATION DAILY carvedilol 25 mg Tablet 25 mg PO BID 30 Days Qty: 60 0RF Protocol: Hold for SBP/HR < HOLD for SBP < : 90 HOLD for HR < : 60 spironolactone 25 mg Tablet 25 mg PO DAILY 30 Days Qty: 30 0RF Protocol: Hold for SBP< HOLD for SBP < : 90 guaifenesin [Mucinex] 600 mg Tablet Extended Release 12hr 600 mg PO BID Qty: 14 0RF amlodipine 5 mg Tablet 5 mg PO BEDTIME Qty: 30 0RF Protocol: Hold for SBP< HOLD for SBP < : 90 (DME) nebulizers Misc See Rx Instructions .Route Qty: 1 0RF Rx Instructions: As directed ipratropium-albuterol 0.5 mg-3 mg(2.5 mg base)/3 mL Solution For Nebulization 3 ml inhalation TID Qty: 270 0RF varenicline [Chantix Starting Month Box] 0.5 mg (11)- 1 mg (42) tablets,dose pack See Rx Instructions .ROUTE .COMPLEX Qty: 53 0RF Rx Instructions: 0.5 mg bid for 4 days 1 mg bid for 12 more weeks prednisone 5 mg tablet 5 mg PO DAILY 30 Days Qty: 30 2RF Hold Instructions: hold until completing prednisone burst then resume losartan 50 mg tablet 100 mg PO DAILY 30 Days Qty: 60 2RF Protocol: Hold for SBP< HOLD for SBP < : 90 metformin 500 mg tablet 500 mg PO DAILY 90 Days Qty: 90 1RF furosemide [Lasix] 40 mg tablet 40 mg PO DAILY Discharge Orders: Discharge Order (Routine); Ordered 06/03/23 Ordered By: Ethan Santamaria Diet: Advance to usual diet Activity on Discharge: As tolerated Stand Alone Forms: Patient Portal Discharge page Care Plan Goals: recovery Health Concerns: flu, asthma Plan of Treatment: prednisone Assessment: see above
--- NOTE | 2023-06-03 10:37 | MHC.CM.PN ---
Pt is medically cleared for D/C home with resumption of [employer] services. Transport set up via BLS/[facility] at 12pm today.
[2023-06-03 11:10] VITALS: BP 153/79; PULSE 76; RESP 20; TEMP 36.3; O2SAT 92
[2023-06-03 11:19] LABS: Glucose, Whole Blood 291 mg/dL (60-115)
== END 2023-06-03 12:40 | disposition home or self-care (01) | DRG 133 ==
LOC: HO.ED 13:15 → HO.EDOVER 14:19 → HO.IMC 15:08
PROVIDERS: Admitting Provider Student in an Organized Health Care Education/Training Program; Emergency Provider Emergency Medicine; Visit Provider Internal Medicine
DX: J96.21 Acute and chronic respiratory failure with hypoxia (principal); I27.22 Pulmonary hypertension due to left heart disease; I50.22 Chronic systolic (congestive) heart failure; I11.0 Hypertensive heart disease with heart failure; J44.1 Chronic obstructive pulmonary disease with (acute) exacerbation; J45.51 Severe persistent asthma with (acute) exacerbation; J10.1 Influenza due to other identified influenza virus with other respiratory manifestations; I34.0 Nonrheumatic mitral (valve) insufficiency; F41.9 Anxiety disorder, unspecified; F32.A Depression, unspecified; E11.65 Type 2 diabetes mellitus with hyperglycemia; G47.33 Obstructive sleep apnea (adult) (pediatric); Z91.199 Patient's noncompliance with other medical treatment and regimen due to unspecified reason; Z99.81 Dependence on supplemental oxygen; Z79.51 Long term (current) use of inhaled steroids; Z79.84 Long term (current) use of oral hypoglycemic drugs; Z79.899 Other long term (current) drug therapy
CPT/HCPCS: 36415; 71045; 80048; 80053; 80076; 82803; 82947; 83605; 83690; 83735; 83880; 84145; 84484; 85007; 85025; 85027; 85610; 87040; 87502; 87635; 93005; 94640; 99285; J0456; J0696; J1650; J1940; J2930; J3475

== ENCOUNTER → 2023-05-31 14:03 | Outpatient (BNV) | payer OTHER, SELFPAY | PROVIDERS: Admitting Provider Student in an Organized Health Care Education/Training Program; Emergency Provider Emergency Medicine; Visit Provider Student in an Organized Health Care Education/Training Program | DX: I21.4 Non-ST elevation (NSTEMI) myocardial infarction (principal); J96.21 Acute and chronic respiratory failure with hypoxia; J45.51 Severe persistent asthma with (acute) exacerbation; J10.1 Influenza due to other identified influenza virus with other respiratory manifestations | CPT/HCPCS: 99223; 99233; 99239 ==

== ENCOUNTER → 2023-05-31 14:03 | Outpatient (BNV) | payer OTHER, SELFPAY | PROVIDERS: Admitting Provider Student in an Organized Health Care Education/Training Program; Emergency Provider Emergency Medicine; Visit Provider Internal Medicine Cardiovascular Disease | DX: I21.4 Non-ST elevation (NSTEMI) myocardial infarction (principal); J96.21 Acute and chronic respiratory failure with hypoxia; J44.1 Chronic obstructive pulmonary disease with (acute) exacerbation; R94.31 Abnormal electrocardiogram [ECG] [EKG]; R00.0 Tachycardia, unspecified; I49.1 Atrial premature depolarization | CPT/HCPCS: 93010; 99222 ==

== ENCOUNTER 2023-06-08 15:07 | Inpatient (IN) | payer OTHER, SELFPAY ==
[2023-06-08] VITALS (10 sets, daily range): BP systolic 95–121; BP diastolic 62–94; PULSE 77–129; RESP 13–26; TEMP 36.4–36.6; O2SAT 90–96; BMI 28.3
--- NOTE | ~2023-06-08 | XR_ITS ---
EXAMINATION: XR CHEST CLINICAL INFORMATION: COPD COMPARISON: Chest 05/23/2023 TECHNIQUE: Frontal view of the chest was obtained. FINDINGS: The lungs are well-expanded and clear. Heart size and pulmonary vascularity is normal. No gross bony abnormality seen. XR/XR chest 1V IMPRESSION: Unremarkable chest exam.
[2023-06-08] MEDS: Albuterol Sulfate 5 MG, Albuterol/Iprat 2.5/0.5MG 3 ML 3 ML INHALE (15:35)
--- NOTE | 2023-06-08 15:43 | ECG_ITS ---
Test Reason : Shortness of breath Blood Pressure : / mmHG Vent. Rate : 100 BPM Atrial Rate : 100 BPM P-R Int : 126 ms QRS Dur : 126 ms QT Int : 406 ms P-R-T Axes : -06 003 -34 degrees QTc Int : 523 ms Normal sinus rhythm Right bundle branch block T wave abnormality, consider inferior ischemia Abnormal ECG When compared with ECG of 31-MAY-2023 12:49, No significant change was found Referred By: Rose Javier Electronically Signed By:NATALIA SHANNON
--- NOTE | 2023-06-08 15:44 | ED_ITS ---
HPI - SOB/Dyspnea General Chief Complaint: Dyspnea Stated Complaint: DIFF BREATHING,PALPITATIONS,HEADACHE PER EMS Time Seen by Provider: 06/08/23 15:37 Source: patient and EMS Mode of arrival: EMS Limitations: no limitations History of Present Illness HPI Narrative: Patient comes to the emergency room complaining of shortness of breath that started last night. According to EMS, patient's oxygen saturation was 83% on 6 L of oxygen when they arrived at her house. Patient was switched to CPAP and brought to the emergency room. -this is patient's 4th visit in 1 month requiring hospitalization for CHF/respiratory failure. Patient was recently discharged 5 days ago. Related Data Home Medications Medication Instructions Recorded Confirmed trazodone 50 mg tablet 100 mg PO BEDTIME PRN Insomnia 03/08/20 05/31/23 albuterol sulfate 90 mcg/actuation 2 puff inhalation Q4-6H PRN 04/30/23 05/31/23 aerosol inhaler (Ventolin HFA) Shortness Of Breath Or Wheezing fluticasone furoate 100 1 inh inhalation DAILY 04/30/23 05/31/23 mcg-vilanterol 25 mcg/dose inhalation powder montelukast 10 mg tablet 10 mg PO BEDTIME 04/30/23 05/31/23 quetiapine 50 mg tablet 50 mg PO BID 04/30/23 05/31/23 sertraline 100 mg tablet 200 mg PO DAILY 04/30/23 05/31/23 tiotropium bromide 18 mcg capsule 1 cap inhalation DAILY 04/30/23 05/31/23 with inhalation device (Spiriva with HandiHaler) Previous Rx's Medication Instructions Recorded folic acid 1 mg tablet 1 mg PO DAILY #90 tabs 09/04/22 carvedilol 25 mg tablet 25 mg PO BID 30 days #60 tabs 05/03/23 spironolactone 25 mg tablet 25 mg PO DAILY 30 days #30 tabs 05/03/23 losartan 50 mg tablet 100 mg PO DAILY 30 days #60 tabs 05/20/23 metformin 500 mg tablet 500 mg PO DAILY 90 days #90 tabs 05/20/23 amlodipine 5 mg tablet 5 mg PO BEDTIME #30 tabs 05/28/23 ipratropium 0.5 mg-albuterol 3 mg 3 ml inhalation TID #270 mL 05/28/23 (2.5 mg base)/3 mL nebulization soln nebulizers #1 ea 05/28/23 varenicline 0.5 mg (11)-1 mg (42) See Rx Instructions .Route 05/28/23 tablets in a dose pack (Chantix .COMPLEX #53 ea Starting Month Box) prednisone 20 mg tablet 40 mg (2 x 20 mg) PO DAILY #10 tabs 06/03/23 furosemide 40 mg tablet (Lasix) 40 mg PO DAILY 90 days #90 tabs 06/08/23 guaifenesin 600 mg tablet, 600 mg PO BID #14 tabs 06/08/23 extended release 12 hr (Mucinex) prednisone 5 mg tablet 5 mg PO DAILY 30 days #30 tabs 06/08/23 Allergies Allergy/AdvReac Type Severity Reaction Status Date / Time nicotine [Nicotine] Allergy Mild ITCHING Verified 05/31/23 09:23 WITH THE PATCHES topiramate Allergy Mild inadequealte Verified 05/31/23 09:23 response Review of Systems 2 Review of Systems: Constitutional : No Weight loss, No Fever, No Chills, No Night Sweats, No Fatigue, No Malaise ENT/Mouth : No Hearing loss, No Ear Pain, No Nasal Congestion, No Sinus Pain, No Hoarseness, No sore throat, No Rhinorrhea, No Swallowing Difficulty Eyes: No Eye Pain, No Swelling, No Redness, No Foreign Body, No Discharge, No Vision Changes Cardiovascular : Denies chest pain, complaining of shortness of breath with exertion, positive orthopnea Respiratory : Complaining of chronic cough, using more oxygen than at baseline Gastrointestinal : No Nausea, No Vomiting, No Diarrhea, No Constipation, No abdominal Pain, No Hematochezia, No Melena Genitourinary : no irregular bleeding, No Dysuria, No Urinary Frequency, No Hematuria, No Urinary Incontinence, No Urgency, No Flank Pain, No Urinary Flow Changes, No Hesitancy Musculoskeletal : No joint pain, No Myalgias, No Joint Swelling Skin : No Skin Lesions, No rash Neuro : No Weakness, No Numbness, No Paresthesias, No Loss of Consciousness, No Dizziness, No Headache Psych : No Anxiety/Panic, No Depression, No SI/HI/AH/VH, No Social Issues, Heme/Lymph: No Bruising, No Bleeding,No Lymphadenopathy Endocrine : No Polyuria, No Polydipsia, No Temperature Intolerance [facility] Past Medical History Medical History (Updated 06/08/23 @ 18:29 by Roes Javier MD) NSTEMI (non-ST elevated myocardial infarction) Hypoxic respiratory failure Chronic lung disease CHF (congestive heart failure) Congestive heart failure Mild recurrent major depression Hospital discharge follow-up Severe chronic obstructive pulmonary disease Diabetes Mitral regurgitation Chest pain Lumbar degenerative disc disease Right lower lobe pneumonitis Congestive heart failure Acute and chronic respiratory failure with hypoxia Respiratory failure with hypoxia and hypercapnia Atelectasis, right Hypertensive emergency Pulmonary hypertension Osteoporosis Essential hypertension Supraventricular tachycardia Nonischemic cardiomyopathy Non-rheumatic mitral regurgitation Tobacco abuse Depression Anxiety Chronic respiratory failure HFrEF (heart failure with reduced ejection fraction) KELLIE (obstructive sleep apnea) HLD (hyperlipidemia) HTN (hypertension) Surgical History H/O hysterectomy for benign disease History of total abdominal hysterectomy Bilateral ankle fractures Family History Family History Father No problems noted. 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 home services: Yes ([employer]) Unable to assess alcohol history related to: Unable to respond Alcohol intake: never Patient Tobacco Use Status: Former Tobacco user Tobacco use type: Cigarette Cigarette Packs Per Day: 6 Cigarettes Per Day: 120.0 Years Smoked: 50 +/- e-Cigarette/Vaping Use: Never Used Second Hand Smoke Exposure: No Advance Directives: Yes Advance Directives on File: Yes Advance Directives Date on File: 05/18/23 service: No Current occupational status: disabled Cognitive needs: Yes Hearing needs: No Vision needs: No Physical Exam 2 Vital Signs: Vital Signs: Last Vital Signs Pulse 100 06/08/23 16:00 Resp 20 06/08/23 16:00 BP 110/77 06/08/23 16:00 Pulse Ox 91 L 06/08/23 16:00 O2 Del Method Oxymask 06/08/23 16:00 O2 Flow Rate 4 06/08/23 16:00 Oxygen Flow Rate 4 06/08/23 15:24 BMI result Body Mass Index 28.3 Const: Other: Appearance: Alert. Oriented X3. No acute distress. Eyes: Pupils equal, round and reactive to light. ENT: Pharynx normal. Neck: Normal inspection. Neck supple. No lymph nodes noted. No crepitus CVS: Normal heart rate and rhythm. Pulses normal. Normal S1 and S2 Respiratory: Patient using a neb treatment, speaking 1 word sentences, tachypneic, decreased bilateral breath sounds, my bilateral wheezing Abdomen: Soft and nontender. No rigidity. No distention. Skin: Skin warm and dry. Normal skin color. Normal skin turgor. Extremities: No lower extremity edema. No Lacerations. No Rash Neuro: Oriented X 3. No motor deficit. No sensory deficit. Moving all extremities. No slurred speech. CN 2 through 12 grossly intact Psych: calm, cooperative, normal affect Medications Administered Discontinued Medications Generic Name Dose Route Start Last Admin Trade Name Freq PRN Reason Stop Dose Admin Albuterol Sulfate 5 mg/ 0 mg 06/08/23 15:31 06/08/23 15:35 Albuterol/Ipratropium 3 ml INHALE 06/08/23 15:32 7.5 each ONCE ONE Administration Magnesium Sulfate 2 gm in 50 mls @ 25 mls/hr 06/08/23 15:42 06/08/23 16:39 Magnesium Sulfate/H2o IV 06/08/23 17:41 25 mls/hr ONCE ONE Administration Methylprednisolone Sodium Succinate 125 mg 06/08/23 15:42 06/08/23 16:39 Methylprednisolone Sod Succ 125 Mg/2 Ml Vial IVPUSH 06/08/23 15:43 125 mg ONCE ONE Administration Tramadol HCl 50 mg 06/08/23 16:53 06/08/23 17:04 Tramadol Hcl 50 Mg Tablet PO 06/08/23 16:54 50 mg ONCE ONE Administration Medical Decision Making Medical Decision Making [facility] Narrative: -all of patient's labs and imaging pending -on arrival, patient was not CPAP, then switched to nasal cannula and given a neb treatment. However, patient's oxygen saturation remained in the low 90s but patient is tachypneic, one-word sentence. -patient has been here frequently, no to decompensate fairly easily. Patient was re-started on CPAP here in the ED -patient receiving Solu-Medrol, magnesium -x-rays pending -my interpretation of chest x-ray: No pneumonia. -patient took herself of of CPAP. Patient is now on 4 L OxyMask. -it has been over an hour the patient is on an OxyMask, patient doing much better. Differential Diagnosis Differential Diagnoses: The differential diagnosis associated with the presentation includes (Asthma, chronic lung disease, respiratory failure, CHF) Admission/Observation Consideration of admission/observation: Escalation of care including admission/observation considered Consult Healthcare Provider Management of the patient was discussed with: Hospitalist Lab Data MDM Lab Attestation statement: I reviewed the patient's lab results. 06/08/23 16:25 06/08/23 16:24 Labs: Lab Results 06/08/23 06/08/23 06/08/23 Range/Units 16:24 16:25 16:32 WBC 10.1 (4.8-10.8) X10*3/uL RBC 4.43 (4.20-5.50) X10*6/uL Hgb 12.2 (12.0-16.0) g/dl Hct 37.9 (37.0-47.0) % MCV 85.6 (80.0-98.0) fL MCH 27.5 (27.0-33.0) pg MCHC 32.2 (31.0-35.0) g/dl RDW 15.5 (11.0-16.0) % Plt Count 184 D (160-400) X10*3/uL MPV 10.8 (9.4-12.3) fL Immature Gran % (Auto) 1.5 H (0.0-0.4) % Neut % (Auto) 79.2 H (45-73) % Lymph % (Auto) 13.7 L (20-40) % Mccormick % (Auto) 4.8 (2-11) % Eos % (Auto) 0.7 (0-4) % Baso % (Auto) 0.1 (0-2) % Lymph # (Auto) 1.4 (1.2-4.9) X10*3/uL Mccormick # (Auto) 0.5 (0.1-1.2) X10*3/uL Eos # (Auto) 0.1 (0.0-0.4) X10*3/uL Baso # (Auto) 0.0 (0.0-0.2) X10*3/uL Abs Immat Gran (auto) 0.15 H (0.00-0.03) X10*3/uL Absolute Neuts (auto) 8.0 (2.0-8.3) x10*3/uL Absolute Nucleated RBC 0.000 (0.0-0.012) X10*3/uL Nucleated RBC % (auto) 0.0 (0.0-0.2) /100WBC PT 11.9 (11.1-13.3) SEC INR 1.0 (0.9-1.1) VBG pH 7.38 (7.32-7.43) VBG pCO2 56 mmHg VBG pO2 27 mmHg VBG HCO3 34 H (22-26) mmol/L VBG O2 Saturation 38.0 % VBG Base Excess 7.3 mmol/L Sodium 141 (135-145) mmol/L Potassium 3.0 L (3.3-5.1) mmol/L Chloride 102 (96-108) mmol/L Carbon Dioxide 31 H (22-29) mmol/L Anion Gap 11 L (12-20) BUN 13 (9-16) mg/dL Creatinine 1.08 (0.5-1.4) mg/dL Estim Creat Clear Calc 52.2 Estimated GFR 52 Random Glucose 202 H (60-115) mg/dL Lactic Acid 1.5 (0.5-2.0) mmol/L Calcium 9.1 (8.4-10.2) mg/dL Total Bilirubin 0.6 (0.0-1.0) mg/dL Direct Bilirubin 0.2 (0.0-0.5) mg/dL AST 14 (5-31) U/L ALT 19 (0-31) U/L Alkaline Phosphatase 92 (39-117) U/L Troponin I High Sens 52.5 H* D (<3.5-17.0) ng/L B-Natriuretic Peptide 369 H (<100) pg/mL Total Protein 7.2 (6.5-8.0) g/dL Albumin 3.8 (3.5-5.0) g/dL COVID-19 (ANEL) (Negative) COVID-19 Clin Com Influenza Type A (ELGIN) (Negative) Influenza Type B (ELGIN) (Negative) Influenza A & B Note 06/08/23 Range/Units 16:51 WBC (4.8-10.8) X10*3/uL RBC (4.20-5.50) X10*6/uL Hgb (12.0-16.0) g/dl Hct (37.0-47.0) % MCV (80.0-98.0) fL MCH (27.0-33.0) pg MCHC (31.0-35.0) g/dl RDW (11.0-16.0) % Plt Count (160-400) X10*3/uL MPV (9.4-12.3) fL Immature Gran % (Auto) (0.0-0.4) % Neut % (Auto) (45-73) % Lymph % (Auto) (20-40) % Mccormick % (Auto) (2-11) % Eos % (Auto) (0-4) % Baso % (Auto) (0-2) % Lymph # (Auto) (1.2-4.9) X10*3/uL Mccormick # (Auto) (0.1-1.2) X10*3/uL Eos # (Auto) (0.0-0.4) X10*3/uL Baso # (Auto) (0.0-0.2) X10*3/uL Abs Immat Gran (auto) (0.00-0.03) X10*3/uL Absolute Neuts (auto) (2.0-8.3) x10*3/uL Absolute Nucleated RBC (0.0-0.012) X10*3/uL Nucleated RBC % (auto) (0.0-0.2) /100WBC PT (11.1-13.3) SEC INR (0.9-1.1) VBG pH (7.32-7.43) VBG pCO2 mmHg VBG pO2 mmHg VBG HCO3 (22-26) mmol/L VBG O2 Saturation % VBG Base Excess mmol/L Sodium (135-145) mmol/L Potassium (3.3-5.1) mmol/L Chloride (96-108) mmol/L Carbon Dioxide (22-29) mmol/L Anion Gap (12-20) BUN (9-16) mg/dL Creatinine (0.5-1.4) mg/dL Estim Creat Clear Calc Estimated GFR Random Glucose (60-115) mg/dL Lactic Acid (0.5-2.0) mmol/L Calcium (8.4-10.2) mg/dL Total Bilirubin (0.0-1.0) mg/dL Direct Bilirubin (0.0-0.5) mg/dL AST (5-31) U/L ALT (0-31) U/L Alkaline Phosphatase (39-117) U/L Troponin I High Sens (<3.5-17.0) ng/L B-Natriuretic Peptide (<100) pg/mL Total Protein (6.5-8.0) g/dL Albumin (3.5-5.0) g/dL COVID-19 (ANEL) Negative (Negative) COVID-19 Clin Com See Note Influenza Type A (ELGIN) Negative (Negative) Influenza Type B (ELGIN) Negative (Negative) Influenza A & B Note See Note Independent Interpretation I performed an independent interpretation of an: Plain X-Ray Radiology Impression Discussion of test interpretation with radiology: I have reviewed the radiologist's reading. Radiologist Impression: FINDINGS: The lungs are well-expanded and clear. Heart size and pulmonary vascularity is normal. No gross bony abnormality seen. XR/XR chest 1V IMPRESSION: Unremarkable chest exam. Independent Historian Clinical information obtained from an independent historian. History obtained from or confirmed by: EMS Critical Care Time Critical Care Time Critical Care Time: Yes Total Critical Care Time: 75 Attestation: I have personally provided critical care time. Time includes review of lab data, radiology results, discussion with consultants, and monitoring for potential decompensation. Intervention performed as documented. Discharge Plan Discharge Clinical Impression: Acute hypoxic respiratory failure Patient Disposition: Admitted As Inpatient Prescriptions: No Action furosemide [Lasix] 40 mg tablet 40 mg PO DAILY 90 Days Qty: 90 1RF guaifenesin [Mucinex] 600 mg tablet extended release 12hr 600 mg PO BID Qty: 14 0RF prednisone 5 mg tablet 5 mg PO DAILY 30 Days Qty: 30 2RF Hold Instructions: hold until completing prednisone burst then resume trazodone 50 mg tablet 100 mg PO BEDTIME PRN (Reason: Insomnia) folic acid 1 mg Tablet 1 mg PO DAILY Qty: 90 4RF montelukast 10 mg tablet 10 mg PO BEDTIME sertraline 100 mg tablet 200 mg PO DAILY tiotropium bromide [Spiriva with HandiHaler] 18 mcg capsule, w/inhalation device 1 cap inhalation DAILY albuterol sulfate [Ventolin HFA] 90 mcg/actuation HFA aerosol inhaler 2 puff inhalation Q4-6H PRN (Reason: Shortness Of Breath Or Wheezing) quetiapine 50 mg tablet 50 mg PO BID fluticasone furoate-vilanterol 100-25 mcg/dose blister with device 1 inh INHALATION DAILY carvedilol 25 mg Tablet 25 mg PO BID 30 Days Qty: 60 0RF Protocol: Hold for SBP/HR < HOLD for SBP < : 90 HOLD for HR < : 60 spironolactone 25 mg Tablet 25 mg PO DAILY 30 Days Qty: 30 0RF Protocol: Hold for SBP< HOLD for SBP < : 90 amlodipine 5 mg Tablet 5 mg PO BEDTIME Qty: 30 0RF Protocol: Hold for SBP< HOLD for SBP < : 90 (DME) nebulizers Misc See Rx Instructions .Route Qty: 1 0RF Rx Instructions: As directed ipratropium-albuterol 0.5 mg-3 mg(2.5 mg base)/3 mL Solution For Nebulization 3 ml inhalation TID Qty: 270 0RF varenicline [Chantix Starting Month Box] 0.5 mg (11)- 1 mg (42) tablets,dose pack See Rx Instructions .ROUTE .COMPLEX Qty: 53 0RF Rx Instructions: 0.5 mg bid for 4 days 1 mg bid for 12 more weeks prednisone 20 mg tablet 40 mg PO DAILY Qty: 10 0RF losartan 50 mg tablet 100 mg PO DAILY 30 Days Qty: 60 2RF Protocol: Hold for SBP< HOLD for SBP < : 90 metformin 500 mg tablet 500 mg PO DAILY 90 Days Qty: 90 1RF
[2023-06-08] MEDS: methylPREDNISolone Sod Succ 125 MG/2 ML VIAL IVPUSH (16:39)
[2023-06-08] MEDS: Magnesium Sulfate/H2O 2 GM/50 ML PIGGYBACK IV (16:39)
--- NOTE | 2023-06-08 16:42 | PC.NURSE ---
Arrived via ems sating 90% on cpap. Placed on cpap by respiratory sating 90%
[2023-06-08 16:48] LABS: MANUAL DIFF FLAG NO
[2023-06-08 16:52] LABS: VBG Base Excess 7.3 mmol/L; VBG HCO3 34 mmol/L (22-26); VBG pCO2 56 mmHg; VBG pH 7.38 (7.32-7.43); VBG pO2 27 mmHg
[2023-06-08 16:53] LABS: Venous Blood Gas Refer to POC result
[2023-06-08 16:54] LABS: Basophils Percent Auto 0.1 % (0-2); Eosinophils Absolute Auto 0.1 X10*3/uL (0.0-0.4); Eosinophils Percent Auto 0.7 % (0-4); Hematocrit 37.9 % (37.0-47.0); Hemoglobin 12.2 g/dl (12.0-16.0); Imm Gran Abs Auto 0.15 X10*3/uL (0.00-0.03); Imm Gran Pct Auto 1.5 % (0.0-0.4); Lymphocytes Absolute Auto 1.4 X10*3/uL (1.2-4.9); Lymphocytes Percent Auto 13.7 % (20-40); Mean Corpuscular HGB Conc 32.2 g/dl (31.0-35.0); Mean Corpuscular Hemoglobin 27.5 pg (27.0-33.0); Mean Corpuscular Volume 85.6 fL (80.0-98.0); Mean Platelet Volume 10.8 fL (9.4-12.3); Monocytes Absolute Auto 0.5 X10*3/uL (0.1-1.2); Monocytes Percent Auto 4.8 % (2-11); Neutrophils Percent Auto 79.2 % (45-73); Platelet Count 184 X10*3/uL (160-400); Prothrombin Time 11.9 SEC (11.1-13.3); Red Blood Count 4.43 X10*6/uL (4.20-5.50); Red Cell Distribution Width 15.5 % (11.0-16.0); White Blood Count 10.1 X10*3/uL (4.8-10.8)
[2023-06-08 17:00] LABS: Lactic Acid 1.5 mmol/L (0.5-2.0)
[2023-06-08] MEDS: traMADoL HCL 50 MG TABLET PO (17:04)
[2023-06-08 17:05] LABS: Alanine Aminotransferase 19 U/L (0-31); Albumin Level 3.8 g/dL (3.5-5.0); Alkaline Phosphatase 92 U/L (39-117); Anion Gap 11 (12-20); Aspartate Amino Transferase 14 U/L (5-31); Bilirubin Direct 0.2 mg/dL (0.0-0.5); Bilirubin Total 0.6 mg/dL (0.0-1.0); Blood Urea Nitrogen 13 mg/dL (9-16); Calcium 9.1 mg/dL (8.4-10.2); Carbon Dioxide 31 mmol/L (22-29); Chloride 102 mmol/L (96-108); Creatinine Clr Calc Pharmacy 52.2; Estimated Glomerular Filt Rate 52; Glucose Random 202 mg/dL (60-115); Sodium 141 mmol/L (135-145); Total Protein 7.2 g/dL (6.5-8.0)
--- NOTE | 2023-06-08 17:06 | PC.NURSE ---
Patient reports headache from cpap machine. medicated with tramadol, patient removed cpap macine stating did not want it on. Desated to 75%, placed on oxy mask at 9 L
[2023-06-08 17:08] LABS: B Type Natriuretic Peptide 369 pg/mL (<100)
[2023-06-08 17:15] LABS: Troponin-I High Sensitivity 52.5 ng/L (<3.5-17.0)
[2023-06-08 18:05] LABS: COVID-19 Test Negative (Negative); IDNOW Serial# 58CA691E; IDNOW Serial# 9DB6401D; Influenza A Negative (Negative); Influenza B2 Negative (Negative)
[2023-06-08] MEDS: cefTRIAXone sodium 1 GM in 0.9 % Sodium Chloride 50 ML IV (18:29)
[2023-06-08] MEDS: Potassium Chloride Packet 20 MEQ PACKET 60 MEQ PO (18:34)
--- NOTE | 2023-06-08 18:50 | PHA.MEDREC ---
Pharmacy Consult ? Medication Reconciliation Pharmacy has completed the medication reconciliation. Patient just discharge on 06/03/23. Utilized discharge summary for med rec. Star GomezD
[2023-06-08] MEDS: Furosemide 40 MG/4 ML VIAL IVPUSH (19:41)
--- NOTE | 2023-06-08 20:28 | PC.NURSE ---
pt placed back on cpap for increase in work of breathing
[2023-06-08 20:37] LABS: VBG Base Excess 6.7 mmol/L; VBG HCO3 31 mmol/L (22-26); VBG pCO2 43 mmHg; VBG pH 7.46 (7.32-7.43); VBG pO2 57 mmHg
[2023-06-08 20:47] LABS: Venous Blood Gas Refer to POC result
[2023-06-09] VITALS (9 sets, daily range): BP systolic 118–162; BP diastolic 74–107; PULSE 76–83; RESP 13–20; TEMP 36.3–36.7; O2SAT 92–100
--- NOTE | 2023-06-09 00:50 | MHC.EDTECH ---
PT placed on [place]
--- NOTE | 2023-06-09 02:38 | P.HPHOSP_ITS ---
History of Present Illness Date of Service: 06/09/23 Attending physician on admission: Brenda Romero Chief Complaint: Shortness of breaths Paola Adhikari is a 62 years old woman with a past medical history significant for COPD on home oxygen 4 L/min via nasal cannula (on prednisone daily), systolic congestive heart failure (EF 30-35%), [id number] MR, pulmonary hypertension, anxiety, depression, essential hypertension and KELLIE (noncompliant with CPAP)presents to the emergency department complaining of worsening shortness of breath over the last several days associated with wheezing and occasional cough. She denies fever or chills. Denies any acute GI or symptoms. Patient was recently discharged from the hospital on June 03 with diagnosis of hypoxic respiratory failure and influenza infection. During this last hospitalization she completed a course of Tamiflu, and received treatment with IV steroids + bronchodilator therapy. Patient was seen by cardiology service I recommended treatment with Aldactone, Coreg and Lasix. She stated that she has not been smoking since discharge from the hospital. In the ED, she was placed on BiPAP for several hours. Subsequently, it was discontinued by unfortunately the patient started to develop significant tachypnea and respiratory distress again. She was placed on BiPAP again and Lasix 60 mg IV given. After several hours, BiPAP therapy was discontinued. Currently, the patient is breathing much better and requiring 4 L/min of supplemental oxygen via mask. She looks comfortable. Her most recent vital signs are normal. Blood workup is remarkable for elevated troponin and BNP (however, much lower that prior done a week ago). Hypokalemia of 3.0 noted. Last ABG showed no respiratory acidosis. Viral testing for COVID-19 and influenza are negative. There is no leukocytosis. CXR is negative. ED tx: Solu-Medrol 125 mg IV, tramadol 50 mg p.o., ceftriaxone 1 g IV, potassium 60 mEq, furosemide 40 mg IV, DuoNeb and magnesium 2 g IV. Review of Systems 2 Review of Systems: All 12 systems were reviewed and normal except as noted in HPI. [facility] Medical History (Updated 06/08/23 @ 18:29 by Rose Javier MD) NSTEMI (non-ST elevated myocardial infarction) Hypoxic respiratory failure Chronic lung disease CHF (congestive heart failure) Congestive heart failure Mild recurrent major depression Hospital discharge follow-up Severe chronic obstructive pulmonary disease Diabetes Mitral regurgitation Chest pain Lumbar degenerative disc disease Right lower lobe pneumonitis Congestive heart failure Acute and chronic respiratory failure with hypoxia Respiratory failure with hypoxia and hypercapnia Atelectasis, right Hypertensive emergency Pulmonary hypertension Osteoporosis Essential hypertension Supraventricular tachycardia Nonischemic cardiomyopathy Non-rheumatic mitral regurgitation Tobacco abuse Depression Anxiety Chronic respiratory failure HFrEF (heart failure with reduced ejection fraction) KELLIE (obstructive sleep apnea) HLD (hyperlipidemia) HTN (hypertension) Family History Father No problems noted. 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) Unable to assess alcohol history related to: Unable to respond Alcohol intake: never Patient Tobacco Use Status: Former Tobacco user Tobacco use type: Cigarette Cigarette Packs Per Day: 6 Cigarettes Per Day: 120.0 Years Smoked: 50 +/- e-Cigarette/Vaping Use: Never Used Second Hand Smoke Exposure: No Advance Directives: Yes Advance Directives on File: Yes Advance Directives Date on File: 05/18/23 service: No Current occupational status: disabled Cognitive needs: Yes Hearing needs: No Vision needs: No Meds Allergies Allergy/AdvReac Type Severity Reaction Status Date / Time nicotine [Nicotine] Allergy Mild ITCHING Verified 05/31/23 09:23 WITH THE PATCHES topiramate Allergy Mild inadequealte Verified 05/31/23 09:23 response Active Medications: Current Medications Acetaminophen (Acetaminophen 325 Mg Tablet) 975 mg PO Q6H PRN PRN Reason: Pain, Mild (Pain Scale 1-3) Albuterol Sulfate (Albuterol Sulfate 90 Mcg 8 Gm Inhaler) 4 puff INHALE RQ4H WHILE AWAKE [facility] Enoxaparin Sodium (Enoxaparin Sodium 40 Mg/0.4 Ml Syringe) 40 mg SUBCUT Q24H [place] Sodium Chloride (0.9 % Sodium Chloride Flush 3 Ml Syringe) 3 ml IVFLUSH QSHIFT [facility] Home Medications Medication Instructions Recorded Confirmed Last Taken Type trazodone 50 mg tablet 100 mg PO BEDTIME PRN Insomnia 03/08/20 06/08/23 05/25/23 History albuterol sulfate 90 mcg/actuation 2 puff inhalation Q4-6H PRN 04/30/23 06/08/23 05/25/23 History aerosol inhaler (Ventolin HFA) Shortness Of Breath Or Wheezing fluticasone furoate 100 1 inh inhalation DAILY 04/30/23 06/08/23 05/25/23 History mcg-vilanterol 25 mcg/dose inhalation powder montelukast 10 mg tablet 10 mg PO BEDTIME 04/30/23 06/08/23 05/25/23 History quetiapine 50 mg tablet 50 mg PO BID 04/30/23 06/08/23 05/25/23 History sertraline 100 mg tablet 200 mg PO DAILY 04/30/23 06/08/23 05/25/23 History tiotropium bromide 18 mcg capsule 1 cap inhalation DAILY 04/30/23 06/08/23 05/25/23 History with inhalation device (Spiriva with HandiHaler) Physical Exam 2 Vital Signs and Narrative: Vital Signs: Last Vital Signs Temp 97.6 F 06/09/23 00:49 Pulse 82 06/09/23 00:49 Resp 20 06/09/23 00:49 BP 130/84 06/09/23 00:49 Pulse Ox 94 06/09/23 00:49 O2 Del Method Oxymask 06/09/23 00:49 O2 Flow Rate 4 06/09/23 00:49 Oxygen Flow Rate 4 06/08/23 15:24 BMI result Body Mass Index 28.3 Constitutional - Awake and Alert, No apparent distress. On oxymask. HEENT - Normocephalic, atraumatic head. No scleral icterus. Heart - RRR, (+) murmur. Lungs - Normal lung expansion, Normal respiratory effort, No respiratory distress, tachypnea. Bibasilar crackles. No wheezing. Gastrointestinal - NT / ND; +BS; No rebound or guarding Extremities - no calf tenderness bilaterally, no swelling Musculoskeletal - Normal inspection, normal ROM Skin - Warm/Dry. No jaundice. No pallor. Neurological - Alert & oriented x3. Normal speech. No focal weakness grossly noted. Normal behavior. Psychological - Appropriate affect Results Labs 06/08/23 16:25 06/08/23 16:24 Labs: Laboratory Results - last 24 hr 06/08/23 06/08/23 06/08/23 16:24 16:25 16:32 MCV 85.6 MCH 27.5 MCHC 32.2 RDW 15.5 Plt Count 184 D MPV 10.8 Immature Gran % (Auto) 1.5 H Neut % (Auto) 79.2 H Lymph % (Auto) 13.7 L [place] % (Auto) 4.8 Eos % (Auto) 0.7 Baso % (Auto) 0.1 Lymph # (Auto) 1.4 [place] # (Auto) 0.5 Eos # (Auto) 0.1 Baso # (Auto) 0.0 Abs Immat Gran (auto) 0.15 H Absolute Neuts (auto) 8.0 Absolute Nucleated RBC 0.000 Nucleated RBC % (auto) 0.0 PT 11.9 INR 1.0 VBG pH 7.38 VBG pCO2 56 VBG pO2 27 VBG HCO3 34 H VBG O2 Saturation 38.0 VBG Base Excess 7.3 Anion Gap 11 L Estim Creat Clear Calc 52.2 Estimated GFR 52 Random Glucose 202 H Lactic Acid 1.5 Calcium 9.1 Total Bilirubin 0.6 Direct Bilirubin 0.2 AST 14 ALT 19 Alkaline Phosphatase 92 B-Natriuretic Peptide 369 H Total Protein 7.2 Albumin 3.8 COVID-19 (ANEL) COVID-19 Clin Com Influenza Type A (ELGNI) Influenza Type B (ELGIN) Influenza A & B Note 06/08/23 06/08/23 16:51 19:59 MCV MCH MCHC RDW Plt Count MPV Immature Gran % (Auto) Neut % (Auto) Lymph % (Auto) [place] % (Auto) Eos % (Auto) Baso % (Auto) Lymph # (Auto) [place] # (Auto) Eos # (Auto) Baso # (Auto) Abs Immat Gran (auto) Absolute Neuts (auto) Absolute Nucleated RBC Nucleated RBC % (auto) PT INR VBG pH 7.46 H VBG pCO2 43 VBG pO2 57 VBG HCO3 31 H VBG O2 Saturation 89.0 VBG Base Excess 6.7 Anion Gap Estim Creat Clear Calc Estimated GFR Random Glucose Lactic Acid Calcium Total Bilirubin Direct Bilirubin AST ALT Alkaline Phosphatase B-Natriuretic Peptide Total Protein Albumin COVID-19 (ANEL) Negative COVID-19 Clin Com See Note Influenza Type A (ELGIN) Negative Influenza Type B (ELGIN) Negative Influenza A & B Note See Note Imaging Radiologist's Impressions: Impressions Chest X-Ray 06/08/23 15:54 IMPRESSION: Unremarkable chest exam. Assessment and Plan (1) Acute hypoxic respiratory failure: Status: Acute (2) Elevated troponin: Status: Acute Plan aPola Adhikari is a 62 years old woman admitted with: * Acute on chronic hypoxemic respiratory failure, likely multifactorial: Acute exacerbation of chronic obstructive pulmonary disease no acute on chronic systolic congestive heart failure in the setting of underlying moderate to severe mitral regurgitation and pulmonary hypertension. Admit to hospitalist Service p.o. continue supplemental oxygen to keep oxygen saturation above 90%. Continue bronchodilator therapy and IV steroids. Continue montelukast. Continue Breo, Coreg, spironolactone and Spiriva. Check TTE (last TTE December 2022). * Elevated troponin, trending down. Likely demand ischemia. Recheck in the morning. Continue telemetry. Check echocardiogram. * Hypokalemia. Likely secondary to Lasix. We will replete as needed. Continue to monitor K level. * Anxiety and depression. Continue sertraline, seroquel and trazodone * Type 2 diabetes mellitus. Continue metformin. Diabetic diet. Insulin sliding scale. * Essential hypertension. Continue Coreg, amlodipine, spironolactone and losartan. * Obstructive sleep apnea. Not tolerating CPAP. VTE prophylaxis: Lovenox Code status: Full Patient will need hospitalization for at least 2 midnights or acute on chronic hypoxic respiratory treatment with supplemental oxygen, bronchodilator therapy and IV steroids as well as IV diuresis. Quality Stroke Does the patient have a stroke diagnosis?: No VTE Prior VTE?: No VTE Risk Level:: Medical - moderate - high VTE Device Contraindication: N/A - Device Ordered VTE Drug Contraindication: N/A - Med Ordered
[2023-06-09 05:46] LABS: MANUAL DIFF FLAG NO
[2023-06-09 05:47] LABS: Basophils Percent Auto 0.1 % (0-2); Hematocrit 34.5 % (37.0-47.0); Hemoglobin 11.2 g/dl (12.0-16.0); Imm Gran Abs Auto 0.15 X10*3/uL (0.00-0.03); Imm Gran Pct Auto 1.3 % (0.0-0.4); Lymphocytes Absolute Auto 0.9 X10*3/uL (1.2-4.9); Lymphocytes Percent Auto 7.9 % (20-40); Mean Corpuscular HGB Conc 32.5 g/dl (31.0-35.0); Mean Corpuscular Hemoglobin 28.3 pg (27.0-33.0); Mean Corpuscular Volume 87.1 fL (80.0-98.0); Mean Platelet Volume 10.4 fL (9.4-12.3); Monocytes Absolute Auto 0.5 X10*3/uL (0.1-1.2); Monocytes Percent Auto 3.9 % (2-11); Neutrophils Absolute Auto 9.9 x10*3/uL (2.0-8.3); Neutrophils Percent Auto 86.8 % (45-73); Platelet Count 179 X10*3/uL (160-400); Red Blood Count 3.96 X10*6/uL (4.20-5.50); Red Cell Distribution Width 15.8 % (11.0-16.0); White Blood Count 11.4 X10*3/uL (4.8-10.8)
[2023-06-09 06:04] LABS: Alanine Aminotransferase 18 U/L (0-31); Albumin Level 3.4 g/dL (3.5-5.0); Alkaline Phosphatase 75 U/L (39-117); Anion Gap 15 (12-20); Aspartate Amino Transferase 15 U/L (5-31); Bilirubin Total 0.4 mg/dL (0.0-1.0); Blood Urea Nitrogen 18 mg/dL (9-16); Calcium 8.8 mg/dL (8.4-10.2); Carbon Dioxide 26 mmol/L (22-29); Chloride 106 mmol/L (96-108); Creatinine Clr Calc Pharmacy 51.7; Estimated Glomerular Filt Rate 51; Glucose Random 137 mg/dL (60-115); Potassium 4.4 mmol/L (3.3-5.1); Sodium 143 mmol/L (135-145); Total Protein 6.6 g/dL (6.5-8.0)
[2023-06-09 06:06] LABS: Troponin-I High Sensitivity 44.1 ng/L (<3.5-17.0)
--- NOTE | 2023-06-09 07:00 | CA_ITS ---
Transthoracic Echocardiogram Patient (Last, First, Middle): Paola Ross, Gender: Female Date of : 1960 Age: 62 Procedure Date: 06/09/2023 Procedure Type: Transthoracic Echocardiogram Location: ER Height: 160.02 cm Weight: 72.58 kg BSA: 1.76 m2 Heart Rate: bpm BP: 162 / 107 mmHg Access Representative: Referring MD: Brenda Romero MD Symptoms: CHF w/MR Study Quality: Adequate ECG Rhythm: Sinus Conclusions: - The left ventricular systolic function is mildly decreased. The calculated ejection fraction is 51% by biplane method. - There is severely increased left ventricular wall thickness. - The basal inferior and basal inferoseptal segments are akinetic. - Mildly increased right ventricular cavity size. - There is mild to moderate mitral valve regurgitation. - There is moderate tricuspid valve regurgitation. Findings Left Ventricle Normal left ventricular cavity size. There is severely increased left ventricular wall thickness. The left ventricular systolic function is mildly decreased. The calculated ejection fraction is 51% by biplane method. Evidence suggests grade I (mild) diastolic dysfunction. Wall Motion Rest Echo Findings The basal inferior and basal inferoseptal segments are akinetic. Right Ventricle Mildly increased right ventricular cavity size. There is normal right ventricular systolic function. Atria Mild biatrial enlargement. Aortic Valve There is a normal trileaflet aortic valve. There is no aortic valve stenosis. There is no aortic valve regurgitation. Mitral Valve The mitral valve appears normal. There is mild to moderate mitral valve regurgitation. There is no mitral valve stenosis. Pulmonic Valve The pulmonic valve is likely normal. Tricuspid Valve Normal tricuspid valve structure. There is moderate tricuspid valve regurgitation. There is no evidence of pulmonary hypertension. Great Vessels The asc aorta is normal in size. Venous The inferior vena cava is normal in size and collapses greater than 50% with inspiration. Pericardium/Pleural There is no evidence of pericardial effusion. Prior Study Comparison Changes noted compared to prior study dated: 12/30/2022. Mitral regurgitation seems less prominent. Wall motion abnormalities previously noted. Measurements 2D Linear Measurements IVSd: 1.58 0.6-0.9/0.6-1.0 cm LVIDd: 4.36 3.9-5.3/4.2-5.9 cm LVIDd Index: 2.48 2.4-3.2/2.2-3.1 cm/m2 LVIDs: 2.88 2.0-3.6 cm LVPWd: 1.53 0.7-1.1 cm Ao Root: 3.00 2.1-3.5 cm LA Diam: 3.00 2.7-3.8/3.0-4.0 cm LAIDs Index: 1.70 1.5-2.3 cm/m2 LV Mass: 347.31 67-162/88-224 g LV Mass Index: 197.33 43-95/49-115 g/m2 LVOT Diam: 2.40 3.0+(-)1.3 cm 2D Systolic Function EF 4C: 49.40 >55% EF 2C: 52.60 >55% EF BiP: 51.10 >55% Mitral Valve MV Pk E: 0.37 MV PK A: 0.72 MV Decel Time: 153.00 E/A: 0.50 E'Lateral: 6.20 E'Medial: 3.15 E/E' Med: 11.70 E/E' Lat: 5.90 PHT: 45.00 MVA PHT: 4.89 Decel [place]: 2.41 Aortic Valve AoV Pk Ambrosio: 1.26 AoV Mn Ambrosio: 0.78 AoV VTI: 0.21 AoV Pk Grad: 6.00 Aov Mn Grad: 3.00 PEPITO Cont.VTI: 3.05 LVOT LVOT Pk Ambrosio: 0.80 LVOT Mn Ambrosio: 0.45 LVOT VTI: 0.14 LVOT Pk Grad: 3.00 LVOT Mn Grad: 1.00 LVOT Diam: 2.40 LVOT Area: 4.52 Diastolic Function MV Pk E: 0.37 MV Pk A: 0.72 E/A: 0.50 E'Medial: 3.15 E/E' Med: 11.70 E' Laterial: 6.20 E/E' Lat: 5.90 Right Ventricle TAPSE (mm): 22.10 TVS' Ambrosio: 13.80 Tricuspid Valve TR Pk Ambrosio: 4.01 TR Pk Grad: 64.00 Great Vessels Aorta Ao Root-2D: 3.00 2.0-3.7 cm Ao Asc: 3.30 2.1-3.4 cm Pulmonary Valve PV Pk Ambrosio: 1.00 Peak PV Grad: 4.00 Updated in Other Vendor System with Status of Final Jordan Herrera MD electronically signed on 06/10/2023 8:30:17 AM with status of Final
[2023-06-09] MEDS: Albuterol Sulfate 90 MCG 8 GM INHALER 4 PUFF INHALE ×3 (07:12→21:10)
[2023-06-09] MEDS: 0.9 % Sodium Chloride Flush 3 ML SYRINGE IVFLUSH ×2 (07:26→18:05)
[2023-06-09 07:27] LABS: Glucose, Whole Blood 120 mg/dL (60-115)
--- NOTE | 2023-06-09 07:29 | PC.NURSE ---
pt awake and alert. breathing even and unlabored, skin warm and dry. pt denies pain at this time, resting in bed.
[2023-06-09] MEDS: metFORMIN HCl 500 MG TABLET PO (07:37)
[2023-06-09] MEDS: Spironolactone 25 MG TABLET PO (07:37)
[2023-06-09] MEDS: guaiFENesin LA 600 MG TAB.ER.12H PO ×2 (07:37→20:29)
[2023-06-09] MEDS: carvediloL 25 MG TABLET PO ×2 (07:38→20:29)
[2023-06-09] MEDS: QUEtiapine Fumarate 50 MG TABLET PO ×2 (07:38→20:29)
[2023-06-09] MEDS: Sertraline HCL 100 MG TABLET 200 MG PO (07:38)
[2023-06-09] MEDS: Furosemide 40 MG TABLET PO (07:39)
[2023-06-09] MEDS: Folic Acid 1 MG TABLET PO (07:40)
[2023-06-09] MEDS: Losartan Potassium 50 MG TABLET 100 MG PO (07:40)
[2023-06-09] MEDS: Tiotropium Bromide 2.5 mcg 1 PUFF/2.5 MCG MIST.INHAL INHALE (07:53)
[2023-06-09] MEDS: Fluticasone/Vilanterol 100/25 BLST.W.DEV 1 PUFF INHALE (07:53)
[2023-06-09] MEDS: methylPREDNISolone Sod Succ 40 MG/ML VIAL 20 MG IVPUSH ×2 (08:40→20:30)
[2023-06-09] MEDS: Furosemide 40 MG/4 ML VIAL IVPUSH (09:43)
[2023-06-09 11:37] LABS: Glucose, Whole Blood 125 mg/dL (60-115)
[2023-06-09 12:32] LABS: Glucose, Whole Blood 143 mg/dL (60-115)
--- NOTE | 2023-06-09 14:26 | HO.PM.IMPN ---
Subjective Subjective Date of Service: 06/09/23 Interval History: COPD exacerbation Review of Systems short of breath somewhat improving no cough or fever Physical Exam Vital Signs: Vital Signs: Last Vital Signs Temp 97.6 F 06/09/23 00:49 Pulse 76 06/09/23 11:24 Resp 18 06/09/23 11:24 BP 150/78 H 06/09/23 09:43 Pulse Ox 99 06/09/23 09:43 O2 Del Method Oxymask 06/09/23 09:43 O2 Flow Rate 5 06/09/23 09:43 Oxygen Flow Rate 4 06/08/23 15:24 BMI result Body Mass Index 28.3 Appearance: Alert.? Oriented X3.? sob.? cvs: rrr, [id number] , no murmur res: diminshed ,has b/l wheezing abd: no rebound or guarding ,nt, bs present. ext pulses present , no cyanosis,trace edema . neuro: axo3 , nonfocal. Objective Data Active Medications Acetaminophen (Acetaminophen 325 Mg Tablet) 975 mg PO Q6H PRN PRN Reason: Pain, Mild (Pain Scale 1-3) Albuterol Sulfate (Albuterol Sulfate 90 Mcg 8 Gm Inhaler) 4 puff INHALE RQ4H WHILE AWAKE [facility] Last Admin: 06/09/23 11:22 Dose: 4 puff Documented By: MAXIMILIANO Amlodipine Besylate (Amlodipine Besylate 5 Mg Tablet) 5 mg PO BEDTIME [facility]; Protocol Carvedilol (Carvedilol 25 Mg Tablet) 25 mg PO BID [facility]; Protocol Last Admin: 06/09/23 07:38 Dose: 25 mg Documented By: DANA Dextrose (Dextrose 50 % 25 Gm/50 Ml Syringe) 25 gm IVPUSH Q15M PRN; Protocol PRN Reason: per Hypoglycemia Standing Ord. Enoxaparin Sodium (Enoxaparin Sodium 40 Mg/0.4 Ml Syringe) 40 mg SUBCUT Q24H [facility] Last Admin: 06/09/23 07:42 Dose: Not Given Documented By: DANA Non-Admin Reason: Patient Refused Fluticasone/Vilanterol (Fluticasone/Vilanterol 100/25 Blst.W.Dev) 1 puff INHALE RDAILY [facility] Last Admin: 06/09/23 07:53 Dose: 1 puff Documented By: MAXIMILIANO Folic Acid (Folic Acid 1 Mg Tablet) 1 mg PO DAILY [facility] Last Admin: 06/09/23 07:40 Dose: 1 mg Documented By: DANA Furosemide (Furosemide 40 Mg Tablet) 40 mg PO DAILY [facility]; Protocol Last Admin: 06/09/23 07:39 Dose: 40 mg Documented By: DANA Glucose (Glucose Gel 15 Gm Gel..Gram.) 15 gm PO Q15M PRN; Protocol PRN Reason: per Hypoglycemia Standing Ord. Guaifenesin (Guaifenesin La 600 Mg Tab.Er.12h) 600 mg PO BID [facility] Last Admin: 06/09/23 07:37 Dose: 600 mg Documented By: DANA Insulin Human Lispro (Insulin Lispro 100 Unit/Ml 3 Ml Vial) 0 unit SUBCUT QIDACHS [facility]; Protocol Last Admin: 06/09/23 11:35 Dose: Not Given Documented By: DANA Non-Admin Reason: No Insulin Coverage Comments: no insulin coverage, pt has not eaten today, has taken her metformin this morning Losartan Potassium (Losartan Potassium 50 Mg Tablet) 100 mg PO DAILY [facility]; Protocol Last Admin: 06/09/23 07:40 Dose: 100 mg Documented By: DANA Metformin HCl (Metformin Hcl 500 Mg Tablet) 500 mg PO DAILY [facility] Last Admin: 06/09/23 07:37 Dose: 500 mg Documented By: DANA Methylprednisolone Sodium Succinate (Methylprednisolone Sod Succ 40 Mg/Ml Vial) 20 mg IVPUSH Q12H [facility] Last Admin: 06/09/23 08:40 Dose: 20 mg Documented By: [place] Montelukast Sodium (Montelukast Sodium 10 Mg Tablet) 10 mg PO BEDTIME [facility] Quetiapine Fumarate (Quetiapine Fumarate 50 Mg Tablet) 50 mg PO BID [facility] Last Admin: 06/09/23 07:38 Dose: 50 mg Documented By: DANA Sertraline HCl (Sertraline Hcl 100 Mg Tablet) 200 mg PO DAILY [facility] Last Admin: 06/09/23 07:38 Dose: 200 mg Documented By: DANA Sodium Chloride (0.9 % Sodium Chloride Flush 3 Ml Syringe) [facility] Last Admin: 06/09/23 07:26 Dose: 3 ml Documented By: DANA Spironolactone (Spironolactone 25 Mg Tablet) 25 mg PO DAILY [facility]; Protocol Last Admin: 06/09/23 07:37 Dose: 25 mg Documented By: DANA Tiotropium [place] (Tiotropium [place] 2.5 Mcg 1 Puff/2.5 Mcg Mist.Inhal) 1 puff INHALE RDAILY [facility] Last Admin: 06/09/23 07:53 Dose: 1 puff Documented By: MAXIMILIANO Trazodone HCl (Trazodone Hcl 100 Mg Tablet) 100 mg PO BEDTIME PRN PRN Reason: Insomnia Labs 06/09/23 05:41 06/09/23 05:41 Labs: Laboratory Results - last 24 hr 06/08/23 06/08/23 06/08/23 16:24 16:25 16:32 MCV 85.6 MCH 27.5 MCHC 32.2 RDW 15.5 Plt Count 184 D MPV 10.8 Immature Gran % (Auto) 1.5 H Neut % (Auto) 79.2 H Lymph % (Auto) 13.7 L [place] % (Auto) 4.8 Eos % (Auto) 0.7 Baso % (Auto) 0.1 Lymph # (Auto) 1.4 [place] # (Auto) 0.5 Eos # (Auto) 0.1 Baso # (Auto) 0.0 Abs Immat Gran (auto) 0.15 H Absolute Neuts (auto) 8.0 Absolute Nucleated RBC 0.000 Nucleated RBC % (auto) 0.0 PT 11.9 INR 1.0 VBG pH 7.38 VBG pCO2 56 VBG pO2 27 VBG HCO3 34 H VBG O2 Saturation 38.0 VBG Base Excess 7.3 Anion Gap 11 L Estim Creat Clear Calc 52.2 Estimated GFR 52 POC Glucose Random Glucose 202 H Lactic Acid 1.5 Calcium 9.1 Total Bilirubin 0.6 Direct Bilirubin 0.2 AST 14 ALT 19 Alkaline Phosphatase 92 B-Natriuretic Peptide 369 H Total Protein 7.2 Albumin 3.8 COVID-19 (ANEL) COVID-19 Clin Com Influenza Type A (ELGIN) Influenza Type B (ELGIN) Influenza A & B Note 06/08/23 06/08/23 06/09/23 16:51 19:59 05:41 MCV 87.1 MCH 28.3 MCHC 32.5 RDW 15.8 Plt Count 179 MPV 10.4 Immature Gran % (Auto) 1.3 H Neut % (Auto) 86.8 H Lymph % (Auto) 7.9 L [place] % (Auto) 3.9 Eos % (Auto) 0.0 Baso % (Auto) 0.1 Lymph # (Auto) 0.9 L [place] # (Auto) 0.5 Eos # (Auto) 0.0 Baso # (Auto) 0.0 Abs Immat Gran (auto) 0.15 H Absolute Neuts (auto) 9.9 H Absolute Nucleated RBC 0.000 Nucleated RBC % (auto) 0.0 PT INR VBG pH 7.46 H VBG pCO2 43 VBG pO2 57 VBG HCO3 31 H VBG O2 Saturation 89.0 VBG Base Excess 6.7 Anion Gap 15 Estim Creat Clear Calc 51.7 Estimated GFR 51 POC Glucose Random Glucose 137 H Lactic Acid Calcium 8.8 Total Bilirubin 0.4 Direct Bilirubin AST 15 ALT 18 Alkaline Phosphatase 75 B-Natriuretic Peptide Total Protein 6.6 Albumin 3.4 L COVID-19 (ANEL) Negative COVID-19 Clin Com See Note Influenza Type A (ELGIN) Negative Influenza Type B (ELGIN) Negative Influenza A & B Note See Note 06/09/23 06/09/23 06/09/23 07:23 11:33 12:22 MCV MCH MCHC RDW Plt Count MPV Immature Gran % (Auto) Neut % (Auto) Lymph % (Auto) [place] % (Auto) Eos % (Auto) Baso % (Auto) Lymph # (Auto) [place] # (Auto) Eos # (Auto) Baso # (Auto) Abs Immat Gran (auto) Absolute Neuts (auto) Absolute Nucleated RBC Nucleated RBC % (auto) PT INR VBG pH VBG pCO2 VBG pO2 VBG HCO3 VBG O2 Saturation VBG Base Excess Anion Gap Estim Creat Clear Calc Estimated GFR POC Glucose 120 H 125 H 143 H Random Glucose Lactic Acid Calcium Total Bilirubin Direct Bilirubin AST ALT Alkaline Phosphatase B-Natriuretic Peptide Total Protein Albumin COVID-19 (ANEL) COVID-19 Clin Com Influenza Type A (ELGIN) Influenza Type B (ELGIN) Influenza A & B Note Assessment and Plan (1) Acute hypoxic respiratory failure: Status: Acute Plan 62 years old woman admitted with: Acute on chronic hypoxemic respiratory failure, likely multifactorial: Acute exacerbation of chronic obstructive pulmonary disease , chronic systolic congestive heart failure in the setting of underlying moderate to severe mitral regurgitation and pulmonary hypertension. plan; continue supplemental oxygen to keep oxygen saturation above 90%. Continue bronchodilator therapy and IV steroids. Continue montelukast. Continue Breo, Coreg, spironolactone and Spiriva. Check TTE (last TTE December 2022). Elevated troponin, trending down. thought to beLikely demand ischemia. no chest pain,Recheck in the morning. Continue telemetry. echocardiogram. Hypokalemia. Likely secondary to Lasix. repleted and resolved. Anxiety and depression. Continue sertraline, seroquel and trazodone Type 2 diabetes mellitus. Continue metformin. Diabetic diet. Insulin sliding scale. Essential hypertension. Continue Coreg, amlodipine, spironolactone and losartan. Obstructive sleep apnea. Not tolerating CPAP. ongoing hospitlisation need;Acute on chronic hypoxemic respiratory failure, likely multifactorial-need oxygen ,steriods ,nebs ,multiple recent visit with similar symptoms,consider further wokrup if not improving. Quality Stroke Does the patient have a stroke diagnosis?: No VTE Prior VTE?: No VTE Risk Level:: Medical - moderate - high VTE Device Contraindication: N/A - Device Ordered VTE Drug Contraindication: N/A - Med Ordered
--- NOTE | 2023-06-09 15:05 | PC.NURSE ---
echo at bedside.
--- NOTE | 2023-06-09 15:06 | MHC.CM.PN ---
Pt lives alone, has 1 hour a day MAINFRAME ANALYST services, HCP on file: Chanelle Walton (also her MAINFRAME ANALYST), pt has med equip at home of: O2, nebulizer, shower chair, walker. She has used [facility] services before, transport home via ambulance. CM to follow and assist with DC plan.
--- NOTE | 2023-06-09 15:26 | MHC.CM.PN ---
Pt. is active with [facility]
[2023-06-09 17:46] LABS: Glucose, Whole Blood 145 mg/dL (60-115)
[2023-06-09 19:48] LABS: Glucose, Whole Blood 110 mg/dL (60-115)
[2023-06-09] MEDS: Montelukast Sodium 10 MG TABLET PO (20:30)
[2023-06-09] MEDS: amLODIPine Besylate 5 MG TABLET PO (20:37)
[2023-06-10] VITALS (10 sets, daily range): BP systolic 106–142; BP diastolic 70–82; PULSE 76–96; RESP 18–20; TEMP 36.2–37.3; O2SAT 90–99
[2023-06-10 07:18] LABS: Glucose, Whole Blood 92 mg/dL (60-115)
[2023-06-10] MEDS: Tiotropium Bromide 2.5 mcg 1 PUFF/2.5 MCG MIST.INHAL INHALE (07:46)
[2023-06-10] MEDS: Fluticasone/Vilanterol 100/25 BLST.W.DEV 1 PUFF INHALE (07:46)
[2023-06-10] MEDS: Albuterol Sulfate 90 MCG 8 GM INHALER 4 PUFF INHALE ×4 (07:46→19:45)
[2023-06-10] MEDS: carvediloL 25 MG TABLET PO ×2 (09:45→20:11)
[2023-06-10] MEDS: Spironolactone 25 MG TABLET PO (09:45)
[2023-06-10] MEDS: Sertraline HCL 100 MG TABLET 200 MG PO (09:45)
[2023-06-10] MEDS: methylPREDNISolone Sod Succ 40 MG/ML VIAL 20 MG IVPUSH ×2 (09:45→20:12)
[2023-06-10] MEDS: Furosemide 40 MG TABLET PO (09:46)
[2023-06-10] MEDS: QUEtiapine Fumarate 50 MG TABLET PO ×2 (09:46→20:11)
[2023-06-10] MEDS: metFORMIN HCl 500 MG TABLET PO (09:46)
[2023-06-10] MEDS: Losartan Potassium 50 MG TABLET 100 MG PO (09:46)
[2023-06-10] MEDS: Folic Acid 1 MG TABLET PO (09:46)
[2023-06-10] MEDS: guaiFENesin LA 600 MG TAB.ER.12H PO ×2 (09:46→20:11)
[2023-06-10] MEDS: 0.9 % Sodium Chloride Flush 3 ML SYRINGE IVFLUSH ×2 (10:03→16:02)
[2023-06-10 11:28] LABS: Glucose, Whole Blood 155 mg/dL (60-115)
[2023-06-10] MEDS: LORazepam 0.5 MG TABLET PO (14:01)
[2023-06-10] MEDS: Insulin Lispro 100 UNIT/ML 3 ML VIAL SUBCUT ×2 (14:02→20:11)
--- NOTE | 2023-06-10 14:40 | P.CONPL_ITS ---
History of Present Illness History of Present Illness Consult date: 06/10/23 Chief complaint: Hypoxic respiratory failure Narrative: 62-year-old lady with underlying history of severe supplemental oxygen 3-4 L dependent COPD, combined systolic and diastolic heart failure and mitral regurgitation, CAD with multiple admissions for hypoxic respiratory failure admitted on 06/09/2023 with another episode dyspnea. Patient was treated with diuretic with significant improvement. At this time she denies cough or sputum production. Review of Systems 2 Constitutional: Constitutional: Denies daytime sleepiness, Denies excessive sweating, Denies fatigue, Denies fever(s), Denies lethargy, Denies malaise, Denies night sweats, Denies snoring and Denies weight loss Eyes: Eyes: Denies blurry vision and Denies itchy eyes ENT: Denies nasal congestion, Denies post nasal drip, Denies sinus pain, Denies sinus pressure and Denies other ( Thrush) Cardiovascular: Cardiovascular: Denies chest pain, Reports pedal edema, Reports dyspnea, Denies orthopnea and Denies paroxysmal nocturnal dyspnea Respiratory: Respiratory: Denies cough, Denies hemoptysis, Denies excessive phlegm production, Reports dyspnea, Denies snoring and Denies wheezing Gastrointestinal: Gastrointestinal: Denies abdominal pain and Denies heartburn Musculoskeletal: Musculoskeletal: Denies myalgias, Denies arthralgias and Denies joint swelling Integumentary/Breasts: Skin/Breast: Denies rash Neurologic: Denies memory loss and Denies seizure-like activity Psychiatric: Psychiatric: Denies abnormal sleep pattern, Denies anxiety and Denies memory loss Endocrine: Endocrine: Denies excessive sweating, Denies fatigue and Denies heat intolerance Hematologic/Lymphatic: Hematologic/Lymphatic: Denies easy bruising Allergic/Immunologic: Allergic/Immunologic: Denies itchy eyes, Denies seasonal rhinorrhea and Denies wheezing PMFSH Past Medical History Medical History (Updated 06/10/23 @ 15:04 by José Miguel Beckford MD) CHF (congestive heart failure) NSTEMI (non-ST elevated myocardial infarction) Hypoxic respiratory failure Chronic lung disease Congestive heart failure Mild recurrent major depression Hospital discharge follow-up Severe chronic obstructive pulmonary disease Diabetes Mitral regurgitation Chest pain Lumbar degenerative disc disease Right lower lobe pneumonitis Congestive heart failure Acute and chronic respiratory failure with hypoxia Respiratory failure with hypoxia and hypercapnia Atelectasis, right Hypertensive emergency Pulmonary hypertension Osteoporosis Essential hypertension Supraventricular tachycardia Nonischemic cardiomyopathy Non-rheumatic mitral regurgitation Tobacco abuse Depression Anxiety Chronic respiratory failure HFrEF (heart failure with reduced ejection fraction) KELLIE (obstructive sleep apnea) HLD (hyperlipidemia) HTN (hypertension) Family History Family History Father No problems noted. Mother Liver cancer Hypertension Surgical History Surgical History H/O hysterectomy for benign disease History of total abdominal hysterectomy Bilateral ankle fractures Social History Social History Household Members: None Household Members Other:: 1 Housing: Apartment Do you presently have visiting nurse or other home services: Yes ([facility] 1 hr daily) Unable to assess alcohol history related to: Unable to respond Alcohol intake: never Patient Tobacco Use Status: Former Tobacco user Tobacco use type: Cigarette Cigarette Packs Per Day: 6 Cigarettes Per Day: 120.0 Years Smoked: 50 +/- e-Cigarette/Vaping Use: Never Used Second Hand Smoke Exposure: No Advance Directives Date on File: 05/18/23 service: No Current occupational status: disabled Cognitive needs: Yes Hearing needs: No Vision needs: No Meds Allergies Allergy/AdvReac Type Severity Reaction Status Date / Time nicotine [Nicotine] Allergy Mild ITCHING Verified 05/31/23 09:23 WITH THE PATCHES topiramate Allergy Mild inadequealte Verified 05/31/23 09:23 response Active Medications: Current Medications Acetaminophen (Acetaminophen 325 Mg Tablet) 975 mg PO Q6H PRN PRN Reason: Pain, Mild (Pain Scale 1-3) Albuterol Sulfate (Albuterol Sulfate 90 Mcg 8 Gm Inhaler) 4 puff INHALE RQ4H WHILE AWAKE [facility] Last Admin: 06/10/23 12:20 Dose: 4 puff Amlodipine Besylate (Amlodipine Besylate 5 Mg Tablet) 5 mg PO BEDTIME [facility]; Protocol Last Admin: 06/09/23 20:37 Dose: 5 mg Carvedilol (Carvedilol 25 Mg Tablet) 25 mg PO BID [facility]; Protocol Last Admin: 06/10/23 09:45 Dose: 25 mg Dextrose (Dextrose 50 % 25 Gm/50 Ml Syringe) 25 gm IVPUSH Q15M PRN; Protocol PRN Reason: per Hypoglycemia Standing Ord. Enoxaparin Sodium (Enoxaparin Sodium 40 Mg/0.4 Ml Syringe) 40 mg SUBCUT Q24H [facility] Last Admin: 06/10/23 10:03 Dose: Not Given Fluticasone/Vilanterol (Fluticasone/Vilanterol 100/25 Blst.W.Dev) 1 puff INHALE RDAILY [facility] Last Admin: 06/10/23 07:46 Dose: 1 puff Folic Acid (Folic Acid 1 Mg Tablet) 1 mg PO DAILY [facility] Last Admin: 06/10/23 09:46 Dose: 1 mg Furosemide (Furosemide 40 Mg Tablet) 40 mg PO DAILY [facility]; Protocol Last Admin: 06/10/23 09:46 Dose: 40 mg Glucose (Glucose Gel 15 Gm Gel..Gram.) 15 gm PO Q15M PRN; Protocol PRN Reason: per Hypoglycemia Standing Ord. Guaifenesin (Guaifenesin La 600 Mg Tab.Er.12h) 600 mg PO BID [facility] Last Admin: 06/10/23 09:46 Dose: 600 mg Insulin Human Lispro (Insulin Lispro 100 Unit/Ml 3 Ml Vial) 0 unit SUBCUT QIDACHS [facility]; Protocol Last Admin: 06/10/23 14:02 Dose: 2 unit Losartan Potassium (Losartan Potassium 50 Mg Tablet) 100 mg PO DAILY [facility]; Protocol Last Admin: 06/10/23 09:46 Dose: 100 mg Metformin HCl (Metformin Hcl 500 Mg Tablet) 500 mg PO DAILY [facility] Last Admin: 06/10/23 09:46 Dose: 500 mg Methylprednisolone Sodium Succinate (Methylprednisolone Sod Succ 40 Mg/Ml Vial) 20 mg IVPUSH Q12H [facility] Last Admin: 06/10/23 09:45 Dose: 20 mg Montelukast Sodium (Montelukast Sodium 10 Mg Tablet) 10 mg PO BEDTIME [facility] Last Admin: 06/09/23 20:30 Dose: 10 mg Nicotine Polacrilex (Nicotine Polacrilex 2 Mg Gum) 2 mg BUCCAL Q2H PRN PRN Reason: smoker Quetiapine Fumarate (Quetiapine Fumarate 50 Mg Tablet) 50 mg PO BID [facility] Last Admin: 06/10/23 09:46 Dose: 50 mg Sertraline HCl (Sertraline Hcl 100 Mg Tablet) 200 mg PO DAILY [facility] Last Admin: 06/10/23 09:45 Dose: 200 mg Sodium Chloride (0.9 % Sodium Chloride Flush 3 Ml Syringe) 3 ml IVFLUSH QSHIFT [facility] Last Admin: 06/10/23 10:03 Dose: 3 ml Spironolactone (Spironolactone 25 Mg Tablet) 25 mg PO DAILY [facility]; Protocol Last Admin: 06/10/23 09:45 Dose: 25 mg Tiotropium [place] (Tiotropium [place] 2.5 Mcg 1 Puff/2.5 Mcg Mist.Inhal) 1 puff INHALE RDAILY [facility] Last Admin: 06/10/23 07:46 Dose: 1 puff Trazodone HCl (Trazodone Hcl 100 Mg Tablet) 100 mg PO BEDTIME PRN PRN Reason: Insomnia Home Medications Medication Instructions Recorded Confirmed Last Taken Type trazodone 50 mg tablet 100 mg PO BEDTIME PRN Insomnia 03/08/20 06/08/23 05/25/23 History albuterol sulfate 90 mcg/actuation 2 puff inhalation Q4-6H PRN 04/30/23 06/08/23 05/25/23 History aerosol inhaler (Ventolin HFA) Shortness Of Breath Or Wheezing fluticasone furoate 100 1 inh inhalation DAILY 04/30/23 06/08/23 05/25/23 History mcg-vilanterol 25 mcg/dose inhalation powder montelukast 10 mg tablet 10 mg PO BEDTIME 04/30/23 06/08/23 05/25/23 History quetiapine 50 mg tablet 50 mg PO BID 04/30/23 06/08/23 05/25/23 History sertraline 100 mg tablet 200 mg PO DAILY 04/30/23 06/08/23 05/25/23 History tiotropium bromide 18 mcg capsule 1 cap inhalation DAILY 04/30/23 06/08/23 05/25/23 History with inhalation device (Spiriva with HandiHaler) Physical Exam 2 Vital Signs: Vital Signs: Last Vital Signs Temp 97.2 F 06/10/23 11:29 Pulse 80 06/10/23 12:20 Resp 18 06/10/23 12:20 BP 113/72 06/10/23 11:29 Pulse Ox 94 06/10/23 11:29 O2 Del Method Nasal Cannula 06/10/23 11:29 O2 Flow Rate 3 06/10/23 11:29 Oxygen Flow Rate 4 06/08/23 15:24 BMI result Body Mass Index 28.3 Const: General: no acute distress and alert Nutritional Appearance: not obese Orientation/consciousness: Other orientation findings ( oriented) HEENT: Head: Yes atraumatic Eyes: General: appearance normal, both eyes and all related structures S clerae: sclerae normal EOM: EOMs intact bilaterally Neck: Neck: Yes supple Lymphatic: no lymphadenopathy noted Resp: Effort & Inspection: normal respiratory effort and no use of accessory muscles Auscultation: clear to auscultation bilaterally Cardio: Rate: regular rate Rhythm: regular rhythm Heart sounds: no gallops, no murmurs and no rubs Skin: General skin exam: other ( warm) Extrem: General: No clubbing, No cyanosis and Yes edema (Trace bilateral) Results Laboratory Findings 06/09/23 05:41 06/09/23 05:41 ABG, PT/INR, D-dimer: PT/INR, D-dimer PT 11.9 SEC (11.1-13.3) 06/08/23 16:25 INR 1.0 (0.9-1.1) 06/08/23 16:25 Abnormal lab findings: Abnormal Labs 06/08/23 06/08/23 06/08/23 16:24 16:25 16:32 WBC RBC Hgb Hct Immature Gran % (Auto) 1.5 H Neut % (Auto) 79.2 H Lymph % (Auto) 13.7 L Lymph # (Auto) Abs Immat Gran (auto) 0.15 H Absolute Neuts (auto) VBG pH VBG HCO3 34 H Potassium 3.0 L Carbon Dioxide 31 H Anion Gap 11 L BUN POC Glucose Random Glucose 202 H Troponin I High Sens 52.5 H* D B-Natriuretic Peptide 369 H Albumin 06/08/23 06/09/23 06/09/23 19:59 05:41 07:23 WBC 11.4 H RBC 3.96 L Hgb 11.2 L Hct 34.5 L Immature Gran % (Auto) 1.3 H Neut % (Auto) 86.8 H Lymph % (Auto) 7.9 L Lymph # (Auto) 0.9 L Abs Immat Gran (auto) 0.15 H Absolute Neuts (auto) 9.9 H VBG pH 7.46 H VBG HCO3 31 H Potassium Carbon Dioxide Anion Gap BUN 18 H POC Glucose 120 H Random Glucose 137 H Troponin I High Sens 44.1 H B-Natriuretic Peptide Albumin 3.4 L 06/09/23 06/09/23 06/09/23 11:33 12:22 17:42 WBC RBC Hgb Hct Immature Gran % (Auto) Neut % (Auto) Lymph % (Auto) Lymph # (Auto) Abs Immat Gran (auto) Absolute Neuts (auto) VBG pH VBG HCO3 Potassium Carbon Dioxide Anion Gap BUN POC Glucose 125 H 143 H 145 H Random Glucose Troponin I High Sens B-Natriuretic Peptide Albumin 06/10/23 11:14 WBC RBC Hgb Hct Immature Gran % (Auto) Neut % (Auto) Lymph % (Auto) Lymph # (Auto) Abs Immat Gran (auto) Absolute Neuts (auto) VBG pH VBG HCO3 Potassium Carbon Dioxide Anion Gap BUN POC Glucose 155 H Random Glucose Troponin I High Sens B-Natriuretic Peptide Albumin Microbiology: Microbiology 06/08/23 16:30 Blood - Arterial Blood Culture - Preliminary No growth after 24 hours. 06/08/23 16:24 Blood - Arterial Blood Culture - Preliminary No growth after 24 hours. Assessment and Plan (1) Acute hypoxic respiratory failure: Status: Acute (2) Severe chronic obstructive pulmonary disease: Status: Acute (3) CHF (congestive heart failure): Qualifiers: Heart failure chronicity: acute on chronic Heart failure type: u nspecified Qualified Code(s): I50.9 - Heart failure, unspecified Status: Acute Plan Impression: 62-year-old lady with underlying severe COPD, combined systolic and diastolic chronic congestive heart failure, mitral regurgitation, CAD admitted with another episode of dyspnea and acute on chronic congestive heart failure, now improving with diuresis. At this time patient is essentially at the baseline oxygen requirements. Recommendations: Agree with current therapeutic regimen of increased diuretic dose and continuation of baseline regimen of bronchodilators. Does not require systemic glucocorticoids at this time. Procedures Date of Service Date of Service: 06/10/23
[2023-06-10] MEDS: Acetaminophen 325 MG TABLET 975 MG PO (15:56)
[2023-06-10 16:25] LABS: Glucose, Whole Blood 142 mg/dL (60-115)
--- NOTE | 2023-06-10 17:57 | P.PNIM_ITS ---
Subjective Subjective Date of Service: 06/10/23 Interval History: COPD exacerbation Review of Systems short of breath somewhat improving no cough or fever Physical Exam 2 Vital Signs: Vital Signs: Last Vital Signs Temp 97.3 F 06/10/23 15:32 Pulse 96 06/10/23 15:57 Resp 18 06/10/23 15:57 BP 133/79 06/10/23 15:32 Pulse Ox 99 06/10/23 15:32 O2 Del Method Nasal Cannula 06/10/23 15:32 O2 Flow Rate 3 06/10/23 15:32 Oxygen Flow Rate 4 06/08/23 15:24 BMI result Body Mass Index 28.3 Appearance: Alert.? Oriented X3.? sob.? cvs: rrr, [id number] , no murmur res: diminshed ,has b/l wheezing abd: no rebound or guarding ,nt, bs present. ext pulses present , no cyanosis,trace edema . neuro: axo3 , nonfocal. Objective Data Active Medications Acetaminophen (Acetaminophen 325 Mg Tablet) 975 mg PO Q6H PRN PRN Reason: Pain, Mild (Pain Scale 1-3) Last Admin: 06/10/23 15:56 Dose: 975 mg Documented By: MARCOS Albuterol Sulfate (Albuterol Sulfate 90 Mcg 8 Gm Inhaler) 4 puff INHALE RQ4H WHILE AWAKE [facility] Last Admin: 06/10/23 15:56 Dose: 4 puff Documented By: DRE Comments: kim well Amlodipine Besylate (Amlodipine Besylate 5 Mg Tablet) 5 mg PO BEDTIME [facility]; Protocol Last Admin: 06/09/23 20:37 Dose: 5 mg Documented By: DELLA Carvedilol (Carvedilol 25 Mg Tablet) 25 mg PO BID [facility]; Protocol Last Admin: 06/10/23 09:45 Dose: 25 mg Documented By: BROMaryam Dextrose (Dextrose 50 % 25 Gm/50 Ml Syringe) 25 gm IVPUSH Q15M PRN; Protocol PRN Reason: per Hypoglycemia Standing Ord. Enoxaparin Sodium (Enoxaparin Sodium 40 Mg/0.4 Ml Syringe) 40 mg SUBCUT Q24H [facility] Last Admin: 06/10/23 10:03 Dose: Not Given Documented By: CHARLES Non-Admin Reason: Patient Refused Fluticasone/Vilanterol (Fluticasone/Vilanterol 100/25 Blst.W.Dev) 1 puff INHALE RDAILY [facility] Last Admin: 06/10/23 07:46 Dose: 1 puff Documented By: DRE Folic Acid (Folic Acid 1 Mg Tablet) 1 mg PO DAILY [facility] Last Admin: 06/10/23 09:46 Dose: 1 mg Documented By: CHARLES Furosemide (Furosemide 40 Mg Tablet) 40 mg PO DAILY [facility]; Protocol Last Admin: 06/10/23 09:46 Dose: 40 mg Documented By: CHARLES Glucose (Glucose Gel 15 Gm Gel..Gram.) 15 gm PO Q15M PRN; Protocol PRN Reason: per Hypoglycemia Standing Ord. Guaifenesin (Guaifenesin La 600 Mg Tab.Er.12h) 600 mg PO BID [facility] Last Admin: 06/10/23 09:46 Dose: 600 mg Documented By: CHARLES Insulin Human Lispro (Insulin Lispro 100 Unit/Ml 3 Ml Vial) 0 unit SUBCUT QIDACHS [facility]; Protocol Last Admin: 06/10/23 16:46 Dose: Not Given Documented By: MARCOS Non-Admin Reason: No Insulin Coverage Losartan Potassium (Losartan Potassium 50 Mg Tablet) 100 mg PO DAILY [facility]; Protocol Last Admin: 06/10/23 09:46 Dose: 100 mg Documented By: CHARLES Metformin HCl (Metformin Hcl 500 Mg Tablet) 500 mg PO DAILY [facility] Last Admin: 06/10/23 09:46 Dose: 500 mg Documented By: CHARLES Methylprednisolone Sodium Succinate (Methylprednisolone Sod Succ 40 Mg/Ml Vial) 20 mg IVPUSH Q12H [facility] Last Admin: 06/10/23 09:45 Dose: 20 mg Documented By: CHARLES Montelukast Sodium (Montelukast Sodium 10 Mg Tablet) 10 mg PO BEDTIME [facility] Last Admin: 06/09/23 20:30 Dose: 10 mg Documented By: DELLA Nicotine Polacrilex (Nicotine Polacrilex 2 Mg Gum) 2 mg BUCCAL Q2H PRN PRN Reason: smoker Quetiapine Fumarate (Quetiapine Fumarate 50 Mg Tablet) 50 mg PO BID [facility] Last Admin: 06/10/23 09:46 Dose: 50 mg Documented By: HO.DOBROB Sertraline HCl (Sertraline Hcl 100 Mg Tablet) 200 mg PO DAILY [facility] Last Admin: 06/10/23 09:45 Dose: 200 mg Documented By: CHARLES Sodium Chloride (0.9 % Sodium Chloride Flush 3 Ml Syringe) 3 ml IVFLUSH QSHIFT [facility] Last Admin: 06/10/23 16:02 Dose: 3 ml Documented By: MARCOS Spironolactone (Spironolactone 25 Mg Tablet) 25 mg PO DAILY [facility]; Protocol Last Admin: 06/10/23 09:45 Dose: 25 mg Documented By: CHARLES Tiotropium [place] (Tiotropium [place] 2.5 Mcg 1 Puff/2.5 Mcg Mist.Inhal) 1 puff INHALE RDAILY [facility] Last Admin: 06/10/23 07:46 Dose: 1 puff Documented By: DRE Trazodone HCl (Trazodone Hcl 100 Mg Tablet) 100 mg PO BEDTIME PRN PRN Reason: Insomnia Labs 06/09/23 05:41 06/09/23 05:41 Labs: Laboratory Results - last 24 hr 06/09/23 06/10/23 06/10/23 19:43 07:11 11:14 POC Glucose 110 92 155 H 06/10/23 16:20 POC Glucose 142 H Microbiology Microbiology Results: Microbiology 06/08/23 16:30 Blood Culture - Preliminary Blood - Arterial No growth after 24 hours. 06/08/23 16:24 Blood Culture - Preliminary Blood - Arterial No growth after 24 hours. Assessment and Plan (1) Acute hypoxic respiratory failure: Status: Acute (2) Severe chronic obstructive pulmonary disease: Status: Acute Plan 62 years old woman admitted with: Acute on chronic hypoxemic respiratory failure, likely multifactorial: Acute exacerbation of chronic obstructive pulmonary disease , chronic systolic congestive heart failure in the setting of underlying moderate to severe mitral regurgitation and pulmonary hypertension. plan; continue supplemental oxygen to keep oxygen saturation above 90%. Continue bronchodilator therapy and IV steroids. Continue montelukast. Continue Breo, Coreg, spironolactone and Spiriva. Check TTE (last TTE December 2022): ef is 50- 55%,seems similar as before. Elevated troponin, trending down. thought to beLikely demand ischemia. no chest pain,Recheck in the morning. Continue telemetry. echocardiogram. Hypokalemia. Likely secondary to Lasix. repleted and resolved. Anxiety and depression. Continue sertraline, seroquel and trazodone Type 2 diabetes mellitus. Continue metformin. Diabetic diet. Insulin sliding scale. Essential hypertension. Continue Coreg, amlodipine, spironolactone and losartan. Obstructive sleep apnea. Not tolerating CPAP. ongoing hospitlisation need;Acute on chronic hypoxemic respiratory failure, likely multifactorial-need oxygen ,steriods ,nebs ,multiple recent visit with similar symptoms,consider further wokrup if not improving. Quality Stroke Does the patient have a stroke diagnosis?: No VTE Prior VTE?: No VTE Risk Level:: Medical - moderate - high VTE Device Contraindication: N/A - Device Ordered VTE Drug Contraindication: N/A - Med Ordered
[2023-06-10 19:44] LABS: Glucose, Whole Blood 158 mg/dL (60-115)
[2023-06-10] MEDS: amLODIPine Besylate 5 MG TABLET PO (20:11)
[2023-06-10] MEDS: Montelukast Sodium 10 MG TABLET PO (20:11)
[2023-06-11] VITALS (7 sets, daily range): BP systolic 123–170; BP diastolic 58–95; PULSE 71–89; RESP 18–20; TEMP 36.2–36.6; O2SAT 91–100
[2023-06-11] MEDS: 0.9 % Sodium Chloride Flush 3 ML SYRINGE IVFLUSH ×2 (00:12→08:47)
[2023-06-11 07:20] LABS: Glucose, Whole Blood 85 mg/dL (60-115)
[2023-06-11] MEDS: Albuterol Sulfate 90 MCG 8 GM INHALER 4 PUFF INHALE ×2 (08:11→11:39)
[2023-06-11] MEDS: Fluticasone/Vilanterol 100/25 BLST.W.DEV 1 PUFF INHALE (08:11)
[2023-06-11] MEDS: Tiotropium Bromide 2.5 mcg 1 PUFF/2.5 MCG MIST.INHAL INHALE (08:11)
[2023-06-11] MEDS: metFORMIN HCl 500 MG TABLET PO (08:46)
[2023-06-11] MEDS: Folic Acid 1 MG TABLET PO (08:46)
[2023-06-11] MEDS: carvediloL 25 MG TABLET PO (08:46)
[2023-06-11] MEDS: Spironolactone 25 MG TABLET PO (08:46)
[2023-06-11] MEDS: QUEtiapine Fumarate 50 MG TABLET PO (08:46)
[2023-06-11] MEDS: Furosemide 40 MG TABLET PO (08:46)
[2023-06-11] MEDS: Losartan Potassium 50 MG TABLET 100 MG PO (08:47)
[2023-06-11] MEDS: guaiFENesin LA 600 MG TAB.ER.12H PO (08:47)
[2023-06-11] MEDS: Sertraline HCL 100 MG TABLET 200 MG PO (08:47)
[2023-06-11] MEDS: Docusate Sodium 100 MG CAPSULE PO (09:05)
--- NOTE | 2023-06-11 09:28 | MHC.CM.PN ---
Addendum entered by Teresa Torre RN 06/11/23 12:21: PT NOW REFUSING PULMONARY REHAB, PER [facility] PT HAS YET TO BE ADMITTED TO SERVICE, F2F FOR SN/PT REQUESTED, CM WILL CONT TO FOLLOW DC NEEDS. Addendum entered by Teresa Torre RN 06/11/23 11:27: [facility] IS ONLY PULMONARY REHAB OFFERING AND WILL GO FOR AUTH. Original Note: P.T. RECOMMENDING PULMONARY REHAB, PT AGREEABLE AND REF PLACED TO FACILITIES THAT OFFER SERVICE, CM WILL CONT TO FOLLOW.
[2023-06-11 11:48] LABS: Glucose, Whole Blood 102 mg/dL (60-115)
--- NOTE | 2023-06-11 12:55 | W.MHC.F2F ---
Service Date Service Date: 06/11/23 Encounter Date of encounter: 06/11/23 Encounter: CHF, COPD Reasons for Services Signs and symptoms assessed: Shortness of breath or chest pain or fever Reason for senior care: CV/CP assess and/or care, medication management, medication treatment and teach disease management Reason for physical therapy: home safety and mobility, therapeutic exercises, restore joint function, gait/transfer training, assess need for DME, ADL training, energy conservation and other MD Overseeing Care: Analisa Chavez Homebound: Leaving the home is medically contraindicated at this time without the asist of a device and/or another person due th the listed conditions above and below. Reason homebound: weakness related to hospital stay Homebound supporting statement: Patient is generalized weak, has multiple comorbidities including CHF, COPD, refused rehab-need help to go to appointments, lab draws, PT. Certification: Based on the above findings, I certify that this patient is confined to the home and needs intermittent senior care care, physical therapy and/or speech therapy, or continues to need occupational therapy. The patient is under my care, and I have initiated the establishment of the plan of care. The patient will be followed by a physician who will periodically review the plan of care. Time Spent With Patient Time: Total time managing care of this patient today ____ minutes.
--- NOTE | 2023-06-11 13:00 | P.DS_ITS ---
DS: Providers Provider Date of Service: 06/11/23 Date of admission: 06/09/23 02:26 Date of discharge: 06/11/23 Primary care physician: Analisa Chavez MD Consults: 06/10/23 09:05 Consult to Pulmonology Routine Consulting Provider: [facility] Reason for consultation: acute hypoxemic respiratory failure sec to copd Has provider been notified: No DS: Diagnosis Discharge Diagnosis (1) Acute hypoxic respiratory failure: Status: Acute (2) Severe chronic obstructive pulmonary disease: Status: Acute DS: Summary Hospital Course Hospital Course: 62 years old woman with a past medical history significant for COPD on home oxygen 4 L/min via nasal cannula (on prednisone daily), systolic congestive heart failure (EF 30-35%), [id number] MR, pulmonary hypertension, anxiety, depression, essential hypertension and KELLIE (noncompliant with CPAP)presents to the emergency department complaining of worsening shortness of breath over the last several days associated with wheezing and occasional cough. She denies fever or chills. Denies any acute GI or symptoms. Patient was recently discharged from the hospital on June 03 with diagnosis of hypoxic respiratory failure and influenza infection. During this last hospitalization she completed a course of Tamiflu, and received treatment with IV steroids + bronchodilator therapy. Patient was seen by cardiology service I recommended treatment with Aldactone, Coreg and Lasix. She stated that she has not been smoking since discharge from the hospital. In the ED, she was placed on BiPAP for several hours. Subsequently, it was discontinued by unfortunately the patient started to develop significant tachypnea and respiratory distress again. She was placed on BiPAP again and Lasix 60 mg IV given. After several hours, BiPAP therapy was discontinued. Currently, the patient is breathing much better and requiring 4 L/min of supplemental oxygen via mask. She looks comfortable. Her most recent vital signs are normal. Blood workup is remarkable for elevated troponin and BNP (however, much lower that prior done a week ago). Hypokalemia of 3.0 noted. Last ABG showed no respiratory acidosis. Viral testing for COVID-19 and influenza are negative. There is no leukocytosis. CXR is negative. ED tx: Solu-Medrol 125 mg IV, tramadol 50 mg p.o., ceftriaxone 1 g IV, potassium 60 mEq, furosemide 40 mg IV, DuoNeb and magnesium 2 g IV. Hospital course: Patient was admitted for shortness of breath found to have acute on chronic hypo xemic respiratory failure secondary to possible multifactorial -CHF(HFpEF)/COPD exacerbation: Patient was started on IV steroids, nebs, also given IV Lasix-with the above management patient seems to be improved significantly now she is at her baseline oxygen need. Echo done: EF similar to before, In addition patient was seen by pulm- likely shortness of breath due to CHF rather than COPD, steroids stopped. Hypokalemia repleted and resolved. CHF education given. If patient again weight 2 lb or more in a week- may need outpatient Lasix adjustment. Follow-up with PCP outpatient. plan: CHF education given. If patient again weight 2 lb or more in a week- may need outpatient Lasix adjustment. Follow-up with PCP outpatient Above management discussed with the patient in detail length she understand and in agreement with the plan, PT recommended rehab patient refused patient will be going home with services, time spent 50 minute. Time Attestation Discharge coordination time: Greater than 30 minutes Quality: Safe Use of Opioids Does Pt have an Active Cancer Diagnosis on the Problem List?: No Quality: Stroke Does the patient have a stroke diagnosis?: No Physical Exam Vital Signs: Vital Signs: Last Vital Signs Temp 97.7 F 06/11/23 11:39 Pulse 89 06/11/23 11:44 Resp 18 06/11/23 11:44 BP 136/76 06/11/23 11:39 Pulse Ox 98 06/11/23 11:39 O2 Del Method Nasal Cannula 06/11/23 11:39 O2 Flow Rate 3 06/11/23 11:39 Oxygen Flow Rate 4 06/08/23 15:24 BMI result Body Mass Index 28.3 Appearance: Alert.? Oriented X3.? sob.? cvs: rrr, [id number] . res: diminshed ,has b/l wheezing abd: no rebound or guarding ,nt, bs present. ext pulses present , no cyanosis,no edema . neuro: axo3 , nonfocal. DS: Data Data Completed and Pending Completed studies during hospitalization [Text1]: Procedures Assistance with Respiratory Ventilation, Less than 24 Consecutive Hours, Continuous Positive Airway Pressure (05/31/23) Insertion of Infusion Device into Upper Vein, Percutaneous Approach (05/31/23) Labs on day of discharge: Laboratory Results - last 24 hr 06/10/23 06/10/23 06/11/23 16:20 19:41 07:15 POC Glucose 142 H 158 H 85 06/11/23 11:44 POC Glucose 102 Preliminary micro results at discharge 06/08/23 16:30 Blood Culture - Preliminary Blood - Arterial No growth after 48 hours. 06/08/23 16:24 Blood Culture - Preliminary Blood - Arterial No growth after 48 hours. Imaging Chest x-ray: Radiologist's impression: ITS Impressions Chest X-Ray 06/08/23 15:54 IMPRESSION: Unremarkable chest exam. Echo: Conclusions: - The left ventricular systolic function is mildly decreased. The calculated ejection fraction is 51% by biplane method. - There is severely increased left ventricular wall thickness. - The basal inferior and basal inferoseptal segments are akinetic. - Mildly increased right ventricular cavity size. - There is mild to moderate mitral valve regurgitation. - There is moderate tricuspid valve regurgitation. Findings Left Ventricle Normal left ventricular cavity size. There is severely increased left ventricular wall thickness. The left ventricular systolic function is mildly decreased. The calculated ejection fraction is 51% by biplane method. Evidence suggests grade I (mild) diastolic dysfunction. Wall Motion Rest Echo Findings The basal inferior and basal inferoseptal segments are akinetic. Right Ventricle Mildly increased right ventricular cavity size. There is normal right ventricular systolic function. Atria Mild biatrial enlargement. Aortic Valve There is a normal trileaflet aortic valve. There is no aortic valve stenosis. There is no aortic valve regurgitation. Mitral Valve The mitral valve appears normal. There is mild to moderate mitral valve regurgitation. There is no mitral valve stenosis. Pulmonic Valve The pulmonic valve is likely normal. Tricuspid Valve Normal tricuspid valve structure. There is moderate tricuspid valve regurgitation. There is no evidence of pulmonary hypertension. Great Vessels The asc aorta is normal in size. Venous The inferior vena cava is normal in size and collapses greater than 50% with inspiration. Pericardium/Pleural There is no evidence of pericardial effusion. Prior Study Comparison Changes noted compared to prior study dated: 12/30/2022. Mitral regurgitation seems less prominent. Wall motion abnormalities previously noted. Discharge Plan Discharge Anticipated Discharge Date/Time: 06/11/23 12:46 Patient Disposition: Home Health Service Discharge Diagnosis: possible chf execerebation ,copd Referrals: [facility] [Outside] - 1 Day (PULMONARY REHAB) Analisa Carr MD [Primary Care Provider] - 1 Week Discharge Medications: Continued furosemide [Lasix] 40 mg tablet 40 mg PO DAILY 90 Days Qty: 90 1RF guaifenesin [Mucinex] 600 mg tablet extended release 12hr 600 mg PO BID Qty: 14 0RF prednisone 5 mg tablet 5 mg PO DAILY 30 Days Qty: 30 2RF Hold Instructions: hold until completing prednisone burst then resume trazodone 50 mg tablet 100 mg PO BEDTIME PRN (Reason: Insomnia) folic acid 1 mg Tablet 1 mg PO DAILY Qty: 90 4RF montelukast 10 mg tablet 10 mg PO BEDTIME sertraline 100 mg tablet 200 mg PO DAILY tiotropium bromide [Spiriva with HandiHaler] 18 mcg capsule, w/inhalation device 1 cap inhalation DAILY albuterol sulfate [Ventolin HFA] 90 mcg/actuation HFA aerosol inhaler 2 puff inhalation Q4-6H PRN (Reason: Shortness Of Breath Or Wheezing) quetiapine 50 mg tablet 50 mg PO BID fluticasone furoate-vilanterol 100-25 mcg/dose blister with device 1 inh INHALATION DAILY carvedilol 25 mg Tablet 25 mg PO BID 30 Days Qty: 60 0RF Protocol: Hold for SBP/HR < HOLD for SBP < : 90 HOLD for HR < : 60 spironolactone 25 mg Tablet 25 mg PO DAILY 30 Days Qty: 30 0RF Protocol: Hold for SBP< HOLD for SBP < : 90 amlodipine 5 mg Tablet 5 mg PO BEDTIME Qty: 30 0RF Protocol: Hold for SBP< HOLD for SBP < : 90 (DME) nebulizers [facility] Rx Instructions .Route Qty: 1 0RF Rx Instructions: As directed ipratropium-albuterol 0.5 mg-3 mg(2.5 mg base)/3 mL Solution For Nebulization 3 ml inhalation TID Qty: 270 0RF varenicline [Chantix Starting Month Box] 0.5 mg (11)- 1 mg (42) tablets,dose pack See Rx Instructions .ROUTE .COMPLEX Qty: 53 0RF Rx Instructions: 0.5 mg bid for 4 days 1 mg bid for 12 more weeks losartan 50 mg tablet 100 mg PO DAILY 30 Days Qty: 60 2RF Protocol: Hold for SBP< HOLD for SBP < : 90 metformin 500 mg tablet 500 mg PO DAILY 90 Days Qty: 90 1RF Discharge Orders: Discharge Order (Routine); Ordered 06/11/23 Ordered By: Hamilton Weber Diet: Advance to usual diet Activity on Discharge: As tolerated Stand Alone Forms: Patient Portal Discharge page Care Plan Goals: Patient was admitted for shortness of breath found to have acute on chronic hypoxemic respiratory failure secondary to possible multifactorial(CHF/COPD exacerbation): Patient was started on IV steroids, nebs, also given IV Lasix-with the above management patient seems to be improved significantly now she is at her baseline oxygen need. Echo done: EF similar to before, In addition patient was seen by pulm- likely shortness of breath due to CHF rather than COPD, steroids stopped. Hypokalemia repleted and resolved. CHF education given. If patient again weight 2 lb or more in a week- may need outpatient Lasix adjustment. Follow-up with PCP outpatient Health Concerns: CHF education given. If patient again weight 2 lb or more in a week- may need outpatient Lasix adjustment. Follow-up with PCP outpatient Plan of Treatment: As above. Assessment: As above. Patient Instructions: Heart Failure (DC)
== END 2023-06-11 15:09 | disposition home health service (06) | DRG 140 ==
LOC: HO.ED 18:28 → HO.EDOVER 06-09 02:33 → HO.IMC 06-09 18:00
PROVIDERS: Admitting Provider Internal Medicine; Emergency Provider Emergency Medicine; PCP Internal Medicine; Visit Provider Internal Medicine
DX: J44.1 Chronic obstructive pulmonary disease with (acute) exacerbation (principal); J96.21 Acute and chronic respiratory failure with hypoxia; I50.23 Acute on chronic systolic (congestive) heart failure; I27.20 Pulmonary hypertension, unspecified; I11.0 Hypertensive heart disease with heart failure; F41.9 Anxiety disorder, unspecified; F32.A Depression, unspecified; E87.6 Hypokalemia; I34.0 Nonrheumatic mitral (valve) insufficiency; E11.9 Type 2 diabetes mellitus without complications; G47.33 Obstructive sleep apnea (adult) (pediatric); Z20.822 Contact with and (suspected) exposure to COVID-19; Z99.81 Dependence on supplemental oxygen; Z79.51 Long term (current) use of inhaled steroids; Z87.891 Personal history of nicotine dependence; Z79.52 Long term (current) use of systemic steroids; Z79.84 Long term (current) use of oral hypoglycemic drugs; Z79.899 Other long term (current) drug therapy
CPT/HCPCS: 36415; 71045; 80048; 80053; 80076; 82803; 82947; 83605; 83880; 84484; 85025; 85610; 87040; 87502; 87635; 93005; 93306; 94640; 94664; 97162; 99285; J0696; J1940; J2920; J2930; J3475; Q9957

== ENCOUNTER → 2023-06-08 15:43 | Outpatient (BNV) | payer OTHER, SELFPAY | PROVIDERS: Admitting Provider Internal Medicine; Emergency Provider Emergency Medicine; PCP Internal Medicine; Visit Provider Internal Medicine | DX: I50.22 Chronic systolic (congestive) heart failure (principal); I45.10 Unspecified right bundle-branch block | CPT/HCPCS: 93010 ==

== ENCOUNTER 2023-06-09 02:26 | Outpatient (BNV) | payer OTHER, SELFPAY | END 2023-06-09 07:00 | PROVIDERS: Admitting Provider Internal Medicine; Emergency Provider Emergency Medicine; PCP Internal Medicine; Visit Provider Internal Medicine | DX: I50.22 Chronic systolic (congestive) heart failure (principal); I45.10 Unspecified right bundle-branch block | CPT/HCPCS: 93306 ==

== ENCOUNTER → 2023-06-09 02:26 | Outpatient (BNV) | payer OTHER, SELFPAY | PROVIDERS: Admitting Provider Internal Medicine; Emergency Provider Emergency Medicine; PCP Internal Medicine; Visit Provider Internal Medicine Pulmonary Disease | DX: J96.01 Acute respiratory failure with hypoxia (principal); J44.9 Chronic obstructive pulmonary disease, unspecified; I50.9 Heart failure, unspecified | CPT/HCPCS: 99222 ==

== ENCOUNTER → 2023-06-09 02:26 | Outpatient (BNV) | payer OTHER, SELFPAY | PROVIDERS: Admitting Provider Internal Medicine; Emergency Provider Emergency Medicine; PCP Internal Medicine; Visit Provider Internal Medicine | DX: J96.01 Acute respiratory failure with hypoxia (principal); R79.89 Other specified abnormal findings of blood chemistry | CPT/HCPCS: 99223; 99232; 99238; 99499; G0180 ==

== ENCOUNTER 2023-06-21 05:28 | Emergency (ER) | payer OTHER, SELFPAY ==
[2023-06-21] VITALS (8 sets, daily range): BP systolic 129–162; BP diastolic 72–108; PULSE 70–110; RESP 16–22; TEMP 36.4–37; O2SAT 90–99; BMI 28.2
--- NOTE | ~2023-06-21 | XR_ITS ---
EXAMINATION: XR CHEST CLINICAL INFORMATION: Dyspnea. COMPARISON: Chest x-ray dated 06/08/2023 and older exams. TECHNIQUE: AP upright portable view of the chest was obtained. FINDINGS: EKG leads overlie the chest. The cardiomediastinal silhouette is enlarged.. Lungs bilaterally are symmetrically hyperinflated with hyperlucency in the upper lungs and crowding of bronchovascular markings in the lower lungs, consistent with obstructive lung disease. There is chronic mild blunting of the CP angles, likely due to pleural thickening. No focal consolidation, effusion or pneumothorax is seen. Diffuse osteopenia. Mild convex right thoracolumbar scoliosis. Rectangular densities are seen projected over the mid right clavicle, possibly extrinsic to the patient. Clinical correlation requested. XR/XR chest 1V IMPRESSION: * Findings are consistent with obstructive lung disease. No focal acute pulmonary process. * Rectangular densities projected over the mid right clavicle, possibly extrinsic to the patient. Clinical correlation requested.
--- NOTE | 2023-06-21 05:39 | ECG_ITS ---
Test Reason : SOB Blood Pressure : / mmHG Vent. Rate : 099 BPM Atrial Rate : 099 BPM P-R Int : 132 ms QRS Dur : 124 ms QT Int : 398 ms P-R-T Axes : 080 053 -35 degrees QTc Int : 510 ms Normal sinus rhythm Right bundle branch block T wave abnormality, consider inferior ischemia Abnormal ECG When compared with ECG of 08-JUN-2023 16:46, No significant change was found Referred By: Generic ED Physician Electronically Signed By:Kemar Curry
[2023-06-21 05:57] LABS: Basophils Percent Auto 0.1 % (0-2); Eosinophils Percent Auto 0.4 % (0-4); Hematocrit 33.1 % (37.0-47.0); Hemoglobin 10.5 g/dl (12.0-16.0); Imm Gran Abs Auto 0.03 X10*3/uL (0.00-0.03); Imm Gran Pct Auto 0.4 % (0.0-0.4); Lymphocytes Absolute Auto 0.9 X10*3/uL (1.2-4.9); Lymphocytes Percent Auto 11.4 % (20-40); MANUAL DIFF FLAG NO; Mean Corpuscular HGB Conc 31.7 g/dl (31.0-35.0); Mean Corpuscular Hemoglobin 27.9 pg (27.0-33.0); Mean Platelet Volume 9.5 fL (9.4-12.3); Monocytes Absolute Auto 0.5 X10*3/uL (0.1-1.2); Monocytes Percent Auto 6.3 % (2-11); Neutrophils Absolute Auto 6.6 x10*3/uL (2.0-8.3); Neutrophils Percent Auto 81.4 % (45-73); Platelet Count 133 X10*3/uL (160-400); Red Blood Count 3.76 X10*6/uL (4.20-5.50); Red Cell Distribution Width 15.9 % (11.0-16.0); White Blood Count 8.1 X10*3/uL (4.8-10.8)
[2023-06-21 06:14] LABS: Alanine Aminotransferase 12 U/L (0-31); Albumin Level 3.4 g/dL (3.5-5.0); Alkaline Phosphatase 84 U/L (39-117); Anion Gap 9 (12-20); Aspartate Amino Transferase 14 U/L (5-31); Bilirubin Total 0.4 mg/dL (0.0-1.0); Blood Urea Nitrogen 9 mg/dL (9-16); Calcium 8.8 mg/dL (8.4-10.2); Carbon Dioxide 28 mmol/L (22-29); Chloride 107 mmol/L (96-108); Estimated Glomerular Filt Rate > 60; Glucose Random 126 mg/dL (60-115); Potassium 3.8 mmol/L (3.3-5.1); Sodium 140 mmol/L (135-145); Total Protein 6.5 g/dL (6.5-8.0)
[2023-06-21 06:20] LABS: Troponin-I High Sensitivity 15.6 ng/L (<3.5-17.0)
[2023-06-21 06:49] LABS: VBG Base Excess 4.3 mmol/L; VBG HCO3 29 mmol/L (22-26); VBG pCO2 48 mmHg; VBG pH 7.39 (7.32-7.43); VBG pO2 37 mmHg
[2023-06-21 06:49] LABS: Venous Blood Gas Refer to POC result
[2023-06-21 06:54] LABS: COVID-19 Test Negative (Negative); IDNOW Serial# 08D9AD1C; IDNOW Serial# 152EDE1D; Influenza A Negative (Negative); Influenza B2 Negative (Negative)
[2023-06-21 07:07] LABS: B Type Natriuretic Peptide 311 pg/mL (<100)
--- NOTE | 2023-06-21 07:14 | ED.SOB ---
HPI - SOB/Dyspnea General Chief Complaint: Dyspnea Stated Complaint: SOB Time Seen by Provider: 06/21/23 07:02 Source: patient Mode of arrival: EMS History of Present Illness HPI Narrative: This is 62 years old female with history of COPD on oxygen baseline for L, history of congestive heart failure type 2 diabetes presented to the emergency department with a chief complaint of shortness of breath. The patient states that also she is also complain of upper neck neck pain, denies any fever chills vomiting and diarrhea she was recently admitted June 08 2023 MD elicited complaint: shortness of breath Pertinent past history: COPD and congestive heart failure Onset (ago): day(s) (Three days) Severity: moderate Exacerbating factors: exertion Relieving factors: oxygen Known history of: COPD and congestive heart failure Associated symptoms: denies other symptoms Related Data Home oxygen amount: 4 liters Home Medications Medication Instructions Recorded Confirmed albuterol sulfate 90 mcg/actuation 2 puff inhalation Q4-6H PRN 04/30/23 06/21/23 aerosol inhaler (Ventolin HFA) Shortness Of Breath Or Wheezing montelukast 10 mg tablet 10 mg PO BEDTIME 04/30/23 06/21/23 quetiapine 50 mg tablet 50 mg PO BID 04/30/23 06/21/23 sertraline 100 mg tablet 200 mg PO DAILY 04/30/23 06/21/23 tiotropium bromide 18 mcg capsule 1 cap inhalation DAILY 04/30/23 06/21/23 with inhalation device (Spiriva with HandiHaler) isosorbide mononitrate 30 mg 30 mg PO DAILY 06/21/23 06/21/23 tablet,extended release 24 hr losartan 50 mg tablet 100 mg PO DAILY 06/21/23 06/21/23 Previous Rx's Medication Instructions Recorded folic acid 1 mg tablet 1 mg PO DAILY #90 tabs 09/04/22 metformin 500 mg tablet 500 mg PO DAILY 90 days #90 tabs 05/20/23 amlodipine 5 mg tablet 5 mg PO BEDTIME #30 tabs 05/28/23 ipratropium 0.5 mg-albuterol 3 mg 3 ml inhalation TID #270 mL 05/28/23 (2.5 mg base)/3 mL nebulization soln nebulizers #1 ea 05/28/23 varenicline 0.5 mg (11)-1 mg (42) See Rx Instructions .Route 05/28/23 tablets in a dose pack (Chantix .COMPLEX #53 ea Starting Month Box) furosemide 40 mg tablet (Lasix) 40 mg PO DAILY 90 days #90 tabs 06/08/23 prednisone 5 mg tablet 5 mg PO DAILY 30 days #30 tabs 06/08/23 Allergies Allergy/AdvReac Type Severity Reaction Status Date / Time nicotine [Nicotine] Allergy Mild ITCHING Verified 05/31/23 09:23 WITH THE PATCHES topiramate Allergy Mild inadequealte Verified 05/31/23 09:23 response Review of Systems Constitutional: Constitutional: Reports no additional constitutional complaints Eyes: Eyes: Reports no additional eye complaints Respiratory: Respiratory: Reports chest congestion Gastrointestinal: Gastrointestinal: Reports no additional gastrointestinal complaints Neurologic: Reports system reviewed and no additional complaints, except as documented PMFSH Past Medical History Attestation statement: The following information was validated with the patient. Medical History CHF (congestive heart failure) NSTEMI (non-ST elevated myocardial infarction) Hypoxic respiratory failure Chronic lung disease Congestive heart failure Mild recurrent major depression Hospital discharge follow-up Severe chronic obstructive pulmonary disease Diabetes Mitral regurgitation Chest pain Lumbar degenerative disc disease Right lower lobe pneumonitis Congestive heart failure Acute and chronic respiratory failure with hypoxia Respiratory failure with hypoxia and hypercapnia Atelectasis, right Hypertensive emergency Pulmonary hypertension Osteoporosis Essential hypertension Supraventricular tachycardia Nonischemic cardiomyopathy Non-rheumatic mitral regurgitation Tobacco abuse Depression Anxiety Chronic respiratory failure HFrEF (heart failure with reduced ejection fraction) KELLIE (obstructive sleep apnea) HLD (hyperlipidemia) HTN (hypertension) Surgical History H/O hysterectomy for benign disease History of total abdominal hysterectomy Bilateral ankle fractures Family History Family History Father No problems noted. 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 home services: Yes ([facility] 1 hr daily) Unable to assess alcohol history related to: Unable to respond Alcohol intake: never Patient Tobacco Use Status: Former Tobacco user Tobacco use type: Cigarette Cigarette Packs Per Day: 6 Cigarettes Per Day: 120.0 Years Smoked: 50 +/- Smoked in Last 30 Days: Yes e-Cigarette/Vaping Use: Never Used Second Hand Smoke Exposure: No Use of substances other than those prescribed or required for medical reasons: No Advance Directives: Yes Advance Directives on File: Yes Advance Directives Date on File: 05/18/23 Patient : No service: No Current occupational status: disabled Cognitive needs: Yes Hearing needs: No Vision needs: No Physical Exam Vital Signs: Vital Signs: Last Vital Signs Temp 97.6 F 06/21/23 10:26 Pulse 86 06/21/23 10:26 Resp 20 06/21/23 10:26 BP 154/81 H 06/21/23 10:26 Pulse Ox 99 06/21/23 10:26 O2 Del Method Nasal Cannula 06/21/23 10:26 O2 Flow Rate 4 06/21/23 10:26 BMI result Body Mass Index 28.2 Const: General: cooperative and no acute distress Orientation/consciousness: oriented to person and patient oriented x3 Limitations: no limitations HEENT: Head: Yes normal to inspection General nose exam: Normal external nose present Face and sinus: Yes normal facial exam Mouth: Normal oral and palatal mucosa present Neck: Neck: Yes normal visual inspection and Yes full ROM Chest: Chest palpation & inspection: normal inspection of the chest Resp: Auscultation: rhonchi Cardio: Jugular venous distension: no JVD Rate: regular rate GI: Inspection: Yes normal to inspection Palpation (GI): Soft to palpation, not firm and nontender Skin: General skin exam: no rashes or lesions noted and elasticity normal Lesions: no lesions Rashes: no rashes Neuro: General: oriented to person and patient oriented x3 Course Reevaluation(s) Reevaluation #1: Patient failed ambulation with walker, she lives by herself, no safe for discharge. Will get PT and case preparer and liner. Her medical workup is essentially stable chest x-ray showed no acute disease her oxygen saturation is normal with baseline [address] the patient in physician observation pending case preparer and liner and PT eval Time: 13:49 Medications Administered Generic Name Dose Route Start Last Admin Trade Name Freq PRN Reason Stop Dose Admin Furosemide 40 mg 06/21/23 09:15 06/21/23 10:50 Furosemide 40 Mg Tablet PO 40 mg DAILY WALDEMAR Administration Protocol Isosorbide Mononitrate 30 mg 06/21/23 09:15 06/21/23 11:39 Isosorbide Mononitrate 30 Mg Tab.Er.24h PO 30 mg DAILY WALDEMAR Administration Protocol Losartan Potassium 100 mg 06/21/23 09:15 06/21/23 10:50 Losartan Potassium 50 Mg Tablet PO 100 mg DAILY WALDEMAR Administration Protocol Metformin HCl 500 mg 06/21/23 09:15 06/21/23 10:51 Metformin Hcl 500 Mg Tablet PO 500 mg DAILY WALDEMAR Administration Prednisone 5 mg 06/21/23 09:15 06/21/23 11:39 Prednisone 5 Mg Tablet PO 5 mg DAILY WALDEMAR Administration Discontinued Medications Generic Name Dose Route Start Last Admin Trade Name Freq PRN Reason Stop Dose Admin Acetaminophen 650 mg 06/21/23 09:17 06/21/23 09:41 Acetaminophen 325 Mg Tablet PO 06/21/23 09:18 650 mg ONCE ONE Administration Medical Decision Making Medical Decision Making [facility] Narrative: Patient presented with shortness of breath will obtain a chest x-ray labs EKG and reassessed Differential Diagnosis Differential Diagnoses: The differential diagnosis associated with the presentation includes Congestive heart failure/pneumothorax/pneumonia Admission/Observation Consideration of admission/observation: Escalation of care including admission/observation considered Lab Data [facility] Lab Attestation statement: I reviewed the patient's lab results. 06/21/23 05:46 06/21/23 05:46 Labs: Lab Results 06/21/23 06/21/23 06/21/23 Range/Units 05:46 06:20 06:36 WBC 8.1 (4.8-10.8) X10*3/uL RBC 3.76 L (4.20-5.50) X10*6/uL Hgb 10.5 L (12.0-16.0) g/dl Hct 33.1 L (37.0-47.0) % MCV 88.0 (80.0-98.0) fL MCH 27.9 (27.0-33.0) pg MCHC 31.7 (31.0-35.0) g/dl RDW 15.9 (11.0-16.0) % Plt Count 133 L D (160-400) X10*3/uL MPV 9.5 (9.4-12.3) fL Immature Gran % (Auto) 0.4 (0.0-0.4) % Neut % (Auto) 81.4 H (45-73) % Lymph % (Auto) 11.4 L (20-40) % [place] % (Auto) 6.3 (2-11) % Eos % (Auto) 0.4 (0-4) % Baso % (Auto) 0.1 (0-2) % Lymph # (Auto) 0.9 L (1.2-4.9) X10*3/uL [place] # (Auto) 0.5 (0.1-1.2) X10*3/uL Eos # (Auto) 0.0 (0.0-0.4) X10*3/uL Baso # (Auto) 0.0 (0.0-0.2) X10*3/uL Abs Immat Gran (auto) 0.03 (0.00-0.03) X10*3/uL Absolute Neuts (auto) 6.6 (2.0-8.3) x10*3/uL Absolute Nucleated RBC 0.000 (0.0-0.012) X10*3/uL Nucleated RBC % (auto) 0.0 (0.0-0.2) /100WBC VBG pH (7.32-7.43) VBG pCO2 mmHg VBG pO2 mmHg VBG HCO3 (22-26) mmol/L VBG O2 Saturation % VBG Base Excess mmol/L Sodium 140 (135-145) mmol/L Potassium 3.8 (3.3-5.1) mmol/L Chloride 107 (96-108) mmol/L Carbon Dioxide 28 (22-29) mmol/L Anion Gap 9 L (12-20) BUN 9 (9-16) mg/dL Creatinine 0.81 (0.5-1.4) mg/dL Estim Creat Clear Calc 59.0 Estimated GFR > 60 Random Glucose 126 H (60-115) mg/dL Lactic Acid 1.0 (0.5-2.0) mmol/L Calcium 8.8 (8.4-10.2) mg/dL Total Bilirubin 0.4 (0.0-1.0) mg/dL AST 14 (5-31) U/L ALT 12 (0-31) U/L Alkaline Phosphatase 84 (39-117) U/L Troponin I High Sens 15.6 D (<3.5-17.0) ng/L B-Natriuretic Peptide 311 H (<100) pg/mL Total Protein 6.5 (6.5-8.0) g/dL Albumin 3.4 L (3.5-5.0) g/dL COVID-19 (ANEL) Negative (Negative) COVID-19 Clin Com See Note Influenza Type A (ELGIN) Negative (Negative) Influenza Type B (ELGIN) Negative (Negative) Influenza A & B Note See Note 06/21/23 Range/Units 06:39 WBC (4.8-10.8) X10*3/uL RBC (4.20-5.50) X10*6/uL Hgb (12.0-16.0) g/dl Hct (37.0-47.0) % MCV (80.0-98.0) fL MCH (27.0-33.0) pg MCHC (31.0-35.0) g/dl RDW (11.0-16.0) % Plt Count (160-400) X10*3/uL MPV (9.4-12.3) fL Immature Gran % (Auto) (0.0-0.4) % Neut % (Auto) (45-73) % Lymph % (Auto) (20-40) % [place] % (Auto) (2-11) % Eos % (Auto) (0-4) % Baso % (Auto) (0-2) % Lymph # (Auto) (1.2-4.9) X10*3/uL [place] # (Auto) (0.1-1.2) X10*3/uL Eos # (Auto) (0.0-0.4) X10*3/uL Baso # (Auto) (0.0-0.2) X10*3/uL Abs Immat Gran (auto) (0.00-0.03) X10*3/uL Absolute Neuts (auto) (2.0-8.3) x10*3/uL Absolute Nucleated RBC (0.0-0.012) X10*3/uL Nucleated RBC % (auto) (0.0-0.2) /100WBC VBG pH 7.39 (7.32-7.43) VBG pCO2 48 mmHg VBG pO2 37 mmHg VBG HCO3 29 H (22-26) mmol/L VBG O2 Saturation 64.0 % VBG Base Excess 4.3 mmol/L Sodium (135-145) mmol/L Potassium (3.3-5.1) mmol/L Chloride (96-108) mmol/L Carbon Dioxide (22-29) mmol/L Anion Gap (12-20) BUN (9-16) mg/dL Creatinine (0.5-1.4) mg/dL Estim Creat Clear Calc Estimated GFR Random Glucose (60-115) mg/dL Lactic Acid (0.5-2.0) mmol/L Calcium (8.4-10.2) mg/dL Total Bilirubin (0.0-1.0) mg/dL AST (5-31) U/L ALT (0-31) U/L Alkaline Phosphatase (39-117) U/L Troponin I High Sens (<3.5-17.0) ng/L B-Natriuretic Peptide (<100) pg/mL Total Protein (6.5-8.0) g/dL Albumin (3.5-5.0) g/dL COVID-19 (ANEL) (Negative) COVID-19 Clin Com Influenza Type A (ELGIN) (Negative) Influenza Type B (ELGIN) (Negative) Influenza A & B Note Independent Interpretation I performed an independent interpretation of an: EKG and Plain X-Ray Interpretation: Sinus rhythm rate 99 right bundle-branch block old Radiology Impression Discussion of test interpretation with radiology: I have reviewed the radiologist's reading. Discharge Plan Discharge Clinical Impression: Shortness of breath, Gait instability Patient Disposition: Still a Patient Prescriptions: No Action furosemide [Lasix] 40 mg tablet 40 mg PO DAILY 90 Days Qty: 90 1RF prednisone 5 mg tablet 5 mg PO DAILY 30 Days Qty: 30 2RF Hold Instructions: hold until completing prednisone burst then resume folic acid 1 mg Tablet 1 mg PO DAILY Qty: 90 4RF montelukast 10 mg tablet 10 mg PO BEDTIME sertraline 100 mg tablet 200 mg PO DAILY tiotropium bromide [Spiriva with HandiHaler] 18 mcg capsule, w/inhalation device 1 cap inhalation DAILY albuterol sulfate [Ventolin HFA] 90 mcg/actuation HFA aerosol inhaler 2 puff inhalation Q4-6H PRN (Reason: Shortness Of Breath Or Wheezing) quetiapine 50 mg tablet 50 mg PO BID amlodipine 5 mg Tablet 5 mg PO BEDTIME Qty: 30 0RF Protocol: Hold for SBP< HOLD for SBP < : 90 (DME) nebulizers Misc See Rx Instructions .Route Qty: 1 0RF Rx Instructions: As directed ipratropium-albuterol 0.5 mg-3 mg(2.5 mg base)/3 mL Solution For Nebulization 3 ml inhalation TID Qty: 270 0RF varenicline [Chantix Starting Month Box] 0.5 mg (11)- 1 mg (42) tablets,dose pack See Rx Instructions .ROUTE .COMPLEX Qty: 53 0RF Rx Instructions: 0.5 mg bid for 4 days 1 mg bid for 12 more weeks losartan 50 mg tablet 100 mg PO DAILY isosorbide mononitrate 30 mg tablet extended release 24 hr 30 mg PO DAILY metformin 500 mg tablet 500 mg PO DAILY 90 Days Qty: 90 1RF
--- NOTE | 2023-06-21 07:56 | PC.NURSE ---
ASSUMED CARE OF PT THIS AM, APPEARS AT BASELINE IN NAD IN STRETCHER. PT USES WALKER AT HOME, ATTEMPTED ROAD TEST WITH PULSE OX, PT REMAINED 87-88% ON 5L O2 WHICH IS HER BASELINE, WITH NO WORSENING DYSPNEA. PT STATES SHE FEELS WEAK, HAS BEEN HAVING DIFFICULTY GOING FROM SITTING TO STANDING OF LATE, RECEIVES AID FROM [employer] DIRECTOR FOR 1 HR DAILY AT HOME. PT STATES SHE DOES NOT FEEL SAFE TO GO HOME, MD UPDATED. PT TO RECEIVE PT EVAL.
--- NOTE | 2023-06-21 09:11 | PC.NURSE ---
MED REC COMPLETED, ALL ORDERED BY MD. REPORT GIVEN TO ANEUDY VIZCAINO BRIGITTE.
[2023-06-21] MEDS: Acetaminophen 325 MG TABLET 650 MG PO ×2 (09:41→17:28)
[2023-06-21] MEDS: Losartan Potassium 50 MG TABLET 100 MG PO (10:50)
[2023-06-21] MEDS: Furosemide 40 MG TABLET PO (10:50)
[2023-06-21] MEDS: metFORMIN HCl 500 MG TABLET PO (10:51)
[2023-06-21] MEDS: predniSONE 5 MG TABLET PO (11:39)
[2023-06-21] MEDS: Isosorbide Mononitrate 30 MG TAB.ER.24H PO (11:39)
[2023-06-21] MEDS: Albuterol/Iprat 2.5/0.5MG 3 ML AMPUL.NEB INHALE ×2 (14:25→20:40)
--- NOTE | 2023-06-21 14:27 | MHC.CM.PN ---
Met with patient and PA Overflow 3. The patient was informed the a PT eval is needed. The eval will be done tomorrow. PT does not work on Sundays. She stated that she needs more PERMIT COORDINATOR hours. A referral has been sent to [facility] Options councilors. A request for More PERMIT COORDINATOR hours was made. A referral has been sent to [facility] for home services. If the PT eval qualifies the pt for STR, referrals will be sent to pt preferences.
[2023-06-21] MEDS: QUEtiapine Fumarate 50 MG TABLET PO (19:35)
[2023-06-21] MEDS: Montelukast Sodium 10 MG TABLET PO (19:35)
[2023-06-21] MEDS: amLODIPine Besylate 5 MG TABLET PO (19:35)
--- NOTE | 2023-06-21 20:21 | MHC.EDTECH ---
PATIENT WAS UP TO BEDSIDE COMMODE ,VOID AND HAD A LARGE BOWEL MOVEMENT .
--- NOTE | 2023-06-21 23:34 | PC.NURSE ---
Assumed care of pt at 2315. PT sleeping, respirations even and unlabored. 2L NC. safety precautions in place. plan of care ongoing.
[2023-06-22 07:19] VITALS: BP 144/97; PULSE 93; RESP 17; TEMP 36.5; O2SAT 95
[2023-06-22 07:35] LABS: Glucose, Whole Blood 92 mg/dL (60-115)
[2023-06-22] MEDS: Sertraline HCL 100 MG TABLET 200 MG PO (08:21)
[2023-06-22] MEDS: Folic Acid 1 MG TABLET PO (08:21)
[2023-06-22] MEDS: QUEtiapine Fumarate 50 MG TABLET PO (08:21)
[2023-06-22] MEDS: metFORMIN HCl 500 MG TABLET PO (08:21)
[2023-06-22] MEDS: Losartan Potassium 50 MG TABLET 100 MG PO (08:21)
[2023-06-22] MEDS: Furosemide 40 MG TABLET PO (08:21)
[2023-06-22 08:34] VITALS: PULSE 111
--- NOTE | 2023-06-22 08:42 | MHC.EDTECH ---
Pt ate 100% of her breakfast and 240cc of fluids
[2023-06-22] MEDS: Isosorbide Mononitrate 30 MG TAB.ER.24H PO (09:00)
[2023-06-22] MEDS: predniSONE 5 MG TABLET PO (09:00)
--- NOTE | 2023-06-22 09:09 | MHC.EDTECH ---
pt requested to use the commode. Pt went pee and had a medium bm, brown, formed.
[2023-06-22] MEDS: Albuterol/Iprat 2.5/0.5MG 3 ML AMPUL.NEB INHALE (09:14)
[2023-06-22] MEDS: Tiotropium Bromide 2.5 mcg 1 PUFF/2.5 MCG MIST.INHAL INHALE (09:14)
[2023-06-22 09:17] VITALS: PULSE 76; RESP 18; O2SAT 93
--- NOTE | 2023-06-22 09:44 | MHC.CM.PN ---
Addendum entered by Selma Boyd 06/22/23 15:12: Met with patient and field contact technician. A bed offer has been received from [facility] [employer]. The patient accepts the bed offer. Transport is booked for 5pm meat pickler. Original Note: PT flako recommends Pulmonary Rehab/STR. Referrals have been sent to local Pulmonary rehabs and [facility]. The patient does not have a 3 night inpt stay. She has [employer]. Insurance authorization will be required. DP Pending accepting facility, STR via BLS.
[2023-06-22] MEDS: Ibuprofen 600 MG TABLET PO (10:41)
--- NOTE | 2023-06-22 12:20 | MHC.EDTECH ---
pt refused her lunch. Kitchen was called to place another order. Pt only requested tuna fish. 100% of the tuna was eaten. 120cc of juice.
[2023-06-22 14:00] VITALS: BP 137/92; PULSE 103; RESP 17; TEMP 36.6; O2SAT 94
== END 2023-06-22 17:43 | disposition still patient (30) ==
PROVIDERS: Emergency Medicine; Emergency Provider Emergency Medicine
DX: R06.02 Shortness of breath (principal); J44.9 Chronic obstructive pulmonary disease, unspecified; R26.81 Unsteadiness on feet; Z99.81 Dependence on supplemental oxygen; Z79.899 Other long term (current) drug therapy; Z87.891 Personal history of nicotine dependence; Z11.52 Encounter for screening for COVID-19
CPT/HCPCS: 36415; 71045; 80053; 82803; 82947; 83605; 83880; 84484; 85025; 87040; 87502; 87635; 93005; 94640; 97162; 99285

== ENCOUNTER → 2023-06-21 05:39 | Outpatient (BNV) | payer OTHER, SELFPAY | PROVIDERS: Emergency Provider Emergency Medicine; Visit Provider Internal Medicine Cardiovascular Disease | DX: R94.31 Abnormal electrocardiogram [ECG] [EKG] (principal) | CPT/HCPCS: 93010 ==

== ENCOUNTER 2023-07-07 10:11 | Outpatient (AMB) | payer OTHER, SELFPAY ==
--- NOTE | 2023-07-07 10:13 | MHC.OFFVIS ---
Intake Vital Signs 07/07/23 10:14 Height 4 ft 11 in Weight 130 lb BMI 26.3 BP 122/67 Blood Pressure Location Rt brachial Position Sitting Pulse 107 H Pulse Source Doppler Pulse Oximetry (%) 92 Oxygen Delivery Method Nasal Cannula Oxygen Flow Rate 4 Intake Visit Reasons: copd Litigation Assistant Required: Yes Litigation Assistant Name: Monika Donald Galloway Allergies nicotine [Nicotine] Allergy (Mild, Verified 07/07/23 10:17) ITCHING WITH THE PATCHES topiramate Allergy (Mild, Verified 07/07/23 10:17) inadequealte response HPI copd HPI Details 62-year-old lady active 30+ pack-year smoker previously followed for severe supplemental oxygen 4 L continuous flow dependent COPD, lost to follow-up and now presents to reestablish care. Patient has been recently hospitalized for exacerbation underlying heart failure. She does have underlying least moderate mitral regurgitation. She is following with cardiology service. [facility] Medical History CHF (congestive heart failure) NSTEMI (non-ST elevated myocardial infarction) Hypoxic respiratory failure Chronic lung disease Congestive heart failure Mild recurrent major depression Hospital discharge follow-up Severe chronic obstructive pulmonary disease Diabetes Mitral regurgitation Chest pain Lumbar degenerative disc disease Right lower lobe pneumonitis Congestive heart failure Acute and chronic respiratory failure with hypoxia Respiratory failure with hypoxia and hypercapnia Atelectasis, right Hypertensive emergency Pulmonary hypertension Osteoporosis Essential hypertension Supraventricular tachycardia Nonischemic cardiomyopathy Non-rheumatic mitral regurgitation Tobacco abuse Depression Anxiety Chronic respiratory failure HFrEF (heart failure with reduced ejection fraction) KELLIE (obstructive sleep apnea) HLD (hyperlipidemia) HTN (hypertension) Surgical History H/O hysterectomy for benign disease History of total abdominal hysterectomy Bilateral ankle fractures Family History Father No problems noted. Mother Liver cancer Hypertension Social History Household Members: None Household Members Other:: 1 Housing: Apartment Do you presently have visiting nurse or other home services: Yes ([facility] 1 hr daily) Unable to assess alcohol history related to: Unable to respond Alcohol intake: never Patient Tobacco Use Status: Former Tobacco user Tobacco use type: Cigarette Cigarette Packs Per Day: 6 Cigarettes Per Day: 120.0 Years Smoked: 50 +/- e-Cigarette/Vaping Use: Never Used Second Hand Smoke Exposure: No Advance Directives Date on File: 05/18/23 service: No Current occupational status: disabled Cognitive needs: Yes Hearing needs: No Vision needs: No Review of Systems Const Denies daytime sleepiness, Denies excessive sweating, Denies fatigue, Denies fever(s), Denies lethargy, Denies malaise, Denies night sweats, Denies snoring and Denies weight loss Eyes Denies blurry vision and Denies itchy eyes ENT Denies nasal congestion, Denies post nasal drip, Denies sinus pain, Denies sinus pressure and Denies other ( Thrush) Card Denies chest pain, Denies pedal edema, Denies dyspnea, Reports dyspnea on exertion, Denies orthopnea and Denies paroxysmal nocturnal dyspnea Resp Denies cough, Denies hemoptysis, Denies excessive phlegm production, Denies dyspnea, Reports dyspnea on exertion, Denies snoring and Denies wheezing GI Denies abdominal pain and Denies heartburn Musc Denies myalgias, Denies arthralgias and Denies joint swelling Skin/Breast Denies rash Neuro Denies memory loss and Denies seizure-like activity Psych Denies abnormal sleep pattern, Denies anxiety and Denies memory loss Endo Denies excessive sweating, Denies fatigue and Denies heat intolerance Timbo/Lymph Denies easy bruising Aller/Immun Denies itchy eyes, Denies seasonal rhinorrhea and Denies wheezing Physical Exam Vital Signs: Last Vital Signs Pulse 107 H 07/07/23 10:14 BP 122/67 07/07/23 10:14 Pulse Ox 92 07/07/23 10:14 Oxygen Delivery Method Nasal Cannula 07/07/23 10:14 Oxygen Flow Rate 4 07/07/23 10:14 BMI result Body Mass Index 26.3 Const General: no acute distress and alert Nutritional Appearance: not obese Orientation/consciousness: Other orientation findings ( oriented) HEENT Head: Yes atraumatic Eyes General: appearance normal, both eyes and all related structures Sclerae: sclerae normal EOM: EOMs intact bilaterally Neck Neck: Yes supple Lymphatic: no lymphadenopathy noted Resp Effort & Inspection: normal respiratory effort and no use of accessory muscles Auscultation: clear to auscultation bilaterally Cardio Rate: regular rate Rhythm: regular rhythm Heart sounds: no gallops, no murmurs and no rubs Skin General skin exam: other ( warm) Extrem General: No clubbing, No cyanosis and Yes edema (Trace bilateral) Office Procedures 6 Minute Walk Time:: 10:50 SPO2 % at rest: 93 Pulse at rest: 111 SPO2 % during excercise: 83 Pulse during excercise: 125 SPO2 % after excercise: 91 Pulse after excercise: 120 Distance in yards walked: 100 Performance Observations:: Paola walked on level ground with assistance from a walker, upon standing her SPO2 decreased to 83%, O2 started at 2 lpm, SPO2 decreased to 85% on 2 lpm and 3 lpm with exertion. O2 increased to 4 lpm continuous and her SPO2 recovered to 94%, she maintained her SPO2 91-94% on 4 lpm continuous oxygen. [id number] - 6 Minute Walk Assessment & Plan Assessment & Plan (1) Severe chronic obstructive pulmonary disease: Code(s): J44.9 - Chronic obstructive pulmonary disease, unspecified Plan: Underlying severe COPD baseline controlled on Spiriva and albuterol MDI/duo nebs. Continue current regimen. Will obtain full PFT. (2) Supplemental oxygen dependent: Code(s): Z99.81 - Dependence on supplemental oxygen Plan: In office supplemental oxygen/6 minute walk test performed. Patient requires supplemental oxygen at 4 L continuous flow to maintain normal oximetry. Updated order placed with [employer]. (3) Personal history of nicotine dependence: Code(s): Z87.891 - Personal history of nicotine dependence Plan: Results of CT chest from May of 2023 reviewed, small 2 mm and under pulmonary nodules. Continue with yearly screening, next in May of 2024 Orders: Orders AMB 6 minute walk Today J44.9 - Chronic obstructive pulmonary disease, unspecified Coding Level of Care Code New Pt Level 4 (03579) Diagnoses Severe chronic obstructive pulmonary disease J44.9 Supplemental oxygen dependent Z99.81 Personal history of nicotine dependence Z87.891 CPT Codes Coding ([id number])
[2023-07-07 10:14] VITALS: BP 122/67; PULSE 107; O2SAT 92; BMI 26.3
[2023-07-07 11:19] VITALS: PULSE 111; O2SAT 93
== END 2023-07-07 11:09 | disposition home or self-care (01) ==
PROVIDERS: Visit Provider Internal Medicine Pulmonary Disease
DX: J44.9 Chronic obstructive pulmonary disease, unspecified (principal); Z99.81 Dependence on supplemental oxygen; Z87.891 Personal history of nicotine dependence
CPT/HCPCS: 94618; 99214

== ENCOUNTER → 2023-07-07 10:11 | Outpatient (BNVA) | payer OTHER, SELFPAY | PROVIDERS: Visit Provider Internal Medicine Pulmonary Disease | DX: J44.9 Chronic obstructive pulmonary disease, unspecified (principal); Z99.81 Dependence on supplemental oxygen; Z87.891 Personal history of nicotine dependence | CPT/HCPCS: 94618; 99212 ==

== ENCOUNTER 2023-07-13 14:31 | Outpatient (AMB) | payer OTHER, SELFPAY ==
--- NOTE | 2023-07-13 14:40 | A.OFFPC_ITS ---
Vital Signs 07/13/23 14:46 Height 4 ft 11 in Weight 126 lb BMI 25.4 BP 132/78 Blood Pressure Location Lt brachial Position Sitting Intake Visit Reasons: Follow up Intake Note: Patient here for a follow up Stock Controller Required: No Accompanied by: Self / Same As Patient Allergies nicotine [Nicotine] Allergy (Mild, Verified 07/13/23 15:07) ITCHING WITH THE PATCHES topiramate Allergy (Mild, Verified 07/13/23 15:07) inadequealte response Medication List - Last Reconciled 07/13/23 by Analisa Chavez MD albuterol sulfate 90 mcg/actuation (Ventolin HFA) 2 puffs inhalation Q4-6H PRN amlodipine 5 mg See Protocol PO BEDTIME folic acid 1 mg PO DAILY furosemide (Lasix) 40 mg PO DAILY 90 days ipratropium-albuterol 0.5 mg-3 mg(2.5 mg base)/3 mL 3 mL inhalation TID isosorbide mononitrate ER 30 mg PO DAILY losartan 100 mg PO DAILY metformin 500 mg PO DAILY 90 days montelukast 10 mg PO BEDTIME nebulizers As directed prednisone 5 mg PO DAILY 30 days quetiapine 50 mg PO BID sertraline 200 mg PO DAILY tiotropium bromide (Spiriva with HandiHaler) 1 cap inhalation DAILY varenicline (Chantix Starting Month Box) 0.5 mg bid for 4 days 1 mg bid for 12 more weeks Tobacco use date assessed: 05/20/23 HPI HPI Comments History of Present Illness Details This is a 63-year-old female with diabetes mellitus type 2, hypertension, congestive heart failure, severe COPD and mild recurrent major depression that comes today for follow-up on her conditions. On 4 L of nasal cannula and I am not able to do pulse oximeter due to fingers being cold. A1c within goal. Blood pressure stable. Last echocardiogram was May 2023 showing ejection fraction of 51% with valve abnormalities. COPD is follow by pulmonology which has not significantly changed. Depression stable with SSRIs. Walks with a walker for gait stability. [facility] Medical History (Updated 07/13/23 @ 16:18 by Analisa Chavez MD) HTN (hypertension) Acute hypoxic respiratory failure CHF (congestive heart failure) NSTEMI (non-ST elevated myocardial infarction) Hypoxic respiratory failure Chronic lung disease Congestive heart failure Mild recurrent major depression Hospital discharge follow-up Severe chronic obstructive pulmonary disease Diabetes Mitral regurgitation Chest pain Lumbar degenerative disc disease Right lower lobe pneumonitis Congestive heart failure Acute and chronic respiratory failure with hypoxia Respiratory failure with hypoxia and hypercapnia Atelectasis, right Hypertensive emergency Pulmonary hypertension Osteoporosis Essential hypertension Supraventricular tachycardia Nonischemic cardiomyopathy Non-rheumatic mitral regurgitation Tobacco abuse Depression Anxiety Chronic respiratory failure HFrEF (heart failure with reduced ejection fraction) KELLIE (obstructive sleep apnea) HLD (hyperlipidemia) Surgical History H/O hysterectomy for benign disease History of total abdominal hysterectomy Bilateral ankle fractures Family History Father No problems noted. Mother Liver cancer Hypertension Social History Household Members: None Household Members Other:: 1 Housing: Apartment Do you presently have visiting nurse or other home services: Yes ([facility] 1 hr daily) Unable to assess alcohol history related to: Unable to respond Alcohol intake: never Patient Tobacco Use Status: Former Tobacco user Tobacco use type: Cigarette Cigarette Packs Per Day: 6 Cigarettes Per Day: 120.0 Years Smoked: 50 +/- Packs Per Year: 0 Packs per year/per ci.00 e-Cigarette/Vaping Use: Never Used Second Hand Smoke Exposure: No Advance Directives Date on File: 05/18/23 service: No Current occupational status: disabled Cognitive needs: Yes Hearing needs: No Vision needs: No Questionnaire Thrive Questionnaire Date Thrive assessed: 06/09/23 DIANELYS-7 AMB Questionnaire DIANELYS-7 Date DIANELYS - 7 assessed: 05/20/23 Source: Developed by Drs. Dennis Zayas, Cora Conrad, Sacha Rayo and colleagues, with an educational antonia from [employer]. Review of Systems Const All systems reviewed & are unremarkable except as noted in HPI and below Eyes Reports no additional complaints, Denies change in vision and Denies other visual disturbances Card Denies chest pain at rest, Denies chest pain with activity, Denies edema, Denies irregular heart rhythm, Denies claudication, Denies dyspnea, Denies dyspnea on exertion, Denies orthopnea, Denies paroxysmal nocturnal dyspnea and Denies slow heart rate Resp Denies cough, Denies dyspnea and Denies dyspnea on exertion GI Denies abdominal pain, Denies change in bowel habits, Denies excessive flatus, Denies nausea and Denies vomiting Denies urinary incontinence, Denies urinary hesitancy and Denies urinary urgency Musc Denies abnormal gait, Denies atrophy, Denies deformity and Denies limited range of motion Skin/Breast Denies bleeding lesions, Denies changing lesions and Denies rash Neuro Denies abnormal gait and Denies lack of coordination Physical exam (Primary Care) Vital Signs: Last Vital Signs BP 132/78 07/13/23 14:46 BMI result Body Mass Index 25.4 Tobacco/Smoking Status: Tobacco use Status Tobacco use date assessed 05/20/23 07/13/23 14:42 Patient Tobacco Use Status Former Tobacco user 07/13/23 14:42 Tobacco use type Cigarette 07/13/23 14:42 e-Cigarette/Vaping Use Never Used 07/13/23 14:42 Thrive Assessment: Date of Thrive Assessment Date Thrive assessed 06/09/23 07/13/23 14:42 Eyes General: appearance normal, both eyes and all related structures Eyelids: Yes eyelids normal Conjunctivae: conjunctivae normal Neck Neck: Yes normal visual inspection and Yes supple Resp Effort & Inspection: normal respiratory effort Auscultation: clear to auscultation bilaterally Cardio Jugular venous distension: no JVD Rate: regular rate Rhythm: regular rhythm Heart sounds: S1 normal heart sound present and S2 normal heart sound present Extrem General: Yes full ROM Results AMB Hemoglobin A1c AMB Hemoglobin A1c 6.0 % Last Edit by IVANIA Polanco on 07/13/23 14:5 5 Results Reviewed Results Reviewed: Laboratory Last Values Hgb A1c (Clinic) 6.0 % (4.0-6.0) 07/13/23 14:53 Assessment and Plan Assessment & Plan (1) Severe chronic obstructive pulmonary disease: Code(s): J44.9 - Chronic obstructive pulmonary disease, unspecified Plan: Continue Spiriva. Use rescue inhaler as needed. Continue oxygen. Follow-up with pulmonology. (2) Diabetes: Code(s): E11.9 - Type 2 diabetes mellitus without complications Qualifiers: Diabetes mellitus type: type 2 Diabetes mellitus computer terminal operator insulin use: without residential use Diabetes mellitus complication status: without complication Qualified Code(s): E11.9 - Type 2 diabetes mellitus without complications Plan: Continue metformin. A1c goal is equal or less than 7%. (3) Mild recurrent major depression: Code(s): F33.0 - Major depressive disorder, recurrent, mild Plan: Continue SSRIs. (4) CHF (congestive heart failure): Code(s): I50.9 - Heart failure, unspecified Qualifiers: Heart failure chronicity: acute on chronic Heart failure type: unspecified Qualified Code(s): I50.9 - Heart failure, unspecified Plan: Continue the use of diuretics. The goal is to not gain 5 lb in a week. Follow- up Cardiology. (5) HTN (hypertension): Code(s): I10 - Essential (primary) hypertension Qualifiers: Hypertension type: essential hypertension Qualified Code(s): I10 - Essential (primary) hypertension Plan: Continue losartan and amlodipine. Blood pressure goal is equal or less than 130/80. Orders: Orders AMB Hemoglobin A1c Today E11.9 - Type 2 diabetes mellitus without complications Complete Blood Count Auto Diff Today D64.9 - Anemia, unspecified IRON PROFILE Today D64.9 - Anemia, unspecified Lipid Panel Today E78.5 - Hyperlipidemia, unspecified Microalbumin, Random (w Creat) Today E11.9 - Type 2 diabetes mellitus without complications Vitamin B12 and Folate Today E53.8 - Deficiency of other specified B group vitamins Vitamin D 25-OH Total Today E55.9 - Vitamin D deficiency, unspecified Comprehensive [place]. Panel Fast Today I50.9 - Heart failure, unspecified NT-proBNP Today I50.9 - Heart failure, unspecified Coding Level of Care Code Est Pt Level 4 (83702) Diagnoses Severe chronic obstructive pulmonary disease J44.9 Type 2 diabetes mellitus without complication, without long-term current use of insulin E11.9 Diabetes mellitus type: type 2 Diabetes mellitus computer terminal operator insulin use: without residential use Diabetes mellitus complication status: without complication Mild recurrent major depression F33.0 CHF (congestive heart failure) I50.9 Heart failure chronicity: acute on chronic Heart failure type: unspecified Essential hypertension I10 Hypertension type: essential hypertension Time Spent (min) 25
[2023-07-13 14:46] VITALS: BP 132/78; BMI 25.4
== END 2023-07-13 15:21 | disposition home or self-care (01) ==
PROVIDERS: Visit Provider Internal Medicine
DX: J44.9 Chronic obstructive pulmonary disease, unspecified (principal); E11.9 Type 2 diabetes mellitus without complications; F33.0 Major depressive disorder, recurrent, mild; I50.9 Heart failure, unspecified
CPT/HCPCS: 83036; 99214

== ENCOUNTER 2023-08-05 09:49 | Outpatient (AMB) | payer MEDICAID, SELFPAY ==
[2023-08-05 09:58] VITALS: BP 98/58; PULSE 101; O2SAT 83; BMI 26.3
--- NOTE | 2023-08-05 09:58 | A.OFFVIS_ITS ---
Intake Vital Signs 08/05/23 09:58 Height 4 ft 11 in Weight 130 lb 1.164 oz BMI 26.3 BP 98/58 L Blood Pressure Location Lt brachial Position Sitting Pulse 101 H Pulse Source Doppler Pulse Oximetry (%) 83 L Oxygen Delivery Method Nasal Cannula Oxygen Flow Rate 3 Intake Visit Reasons: copd Metal Smelter Required: Yes Metal Smelter Name: Monika Bennett QuocTyler Allergies nicotine [Nicotine] Allergy (Mild, Verified 08/05/23 10:05) ITCHING WITH THE PATCHES topiramate Allergy (Mild, Verified 08/05/23 10:05) inadequealte response HPI copd HPI Details 63-year-old lady active 30+ pack-year sm sean followed for severe supplemental oxygen 4 L continuous flow dependent COPD, she continues on Spiriva, DuoNebs, and albuterol MDI. Jessica does have underlying least moderate mitral regurgitation. She is following with cardiology service. Today she showed up using supplemental oxygen at 4 L pulse flow with significant hypoxia, with improvement after switching to continuous flow. Patient denies recent exacerbations. [facility] Medical History (Updated 07/13/23 @ 16:18 by Analisa Chavez MD) HTN (hypertension) Acute hypoxic respiratory failure CHF (congestive heart failure) NSTEMI (non-ST elevated myocardial infarction) Hypoxic respiratory failure Chronic lung disease Congestive heart failure Mild recurrent major depression Hospital discharge follow-up Severe chronic obstructive pulmonary disease Diabetes Mitral regurgitation Chest pain Lumbar degenerative disc disease Right lower lobe pneumonitis Congestive heart failure Acute and chronic respiratory failure with hypoxia Respiratory failure with hypoxia and hypercapnia Atelectasis, right Hypertensive emergency Pulmonary hypertension Osteoporosis Essential hypertension Supraventricular tachycardia Nonischemic cardiomyopathy Non-rheumatic mitral regurgitation Tobacco abuse Depression Anxiety Chronic respiratory failure HFrEF (heart failure with reduced ejection fraction) KELLIE (obstructive sleep apnea) HLD (hyperlipidemia) Surgical History H/O hysterectomy for benign disease History of total abdominal hysterectomy Bilateral ankle fractures Family History Father No problems noted. Mother Liver cancer Hypertension Social History Household Members: None Household Members Other:: 1 Housing: Apartment Do you presently have visiting nurse or other home services: Yes ([facility] 1 hr daily) Unable to assess alcohol history related to: Unable to respond Alcohol intake: never Patient Tobacco Use Status: Former Tobacco user Tobacco use type: Cigarette Cigarette Packs Per Day: 6 Cigarettes Per Day: 120.0 Years Smoked: 50 +/- e-Cigarette/Vaping Use: Never Used Second Hand Smoke Exposure: No Advance Directives Date on File: 05/18/23 service: No Current occupational status: disabled Cognitive needs: Yes Hearing needs: No Vision needs: No Review of Systems Const Denies daytime sleepiness, Denies excessive sweating, Denies fatigue, Denies fever(s), Denies lethargy, Denies malaise, Denies night sweats, Denies snoring and Denies weight loss Eyes Denies blurry vision and Denies itchy eyes ENT Denies nasal congestion, Denies post nasal drip, Denies sinus pain, Denies sinus pressure and Denies other ( Thrush) Card Denies chest pain, Denies pedal edema, Denies dyspnea, Reports dyspnea on exertion, Denies orthopnea and Denies paroxysmal nocturnal dyspnea Resp Denies cough, Denies hemoptysis, Denies excessive phlegm production, Denies dyspnea, Reports dyspnea on exertion, Denies snoring and Denies wheezing GI Denies abdominal pain and Denies heartburn Musc Denies myalgias, Denies arthralgias and Denies joint swelling Skin/Breast Denies rash Neuro Denies memory loss and Denies seizure-like activity Psych Denies abnormal sleep pattern, Denies anxiety and Denies memory loss Endo Denies excessive sweating, Denies fatigue and Denies heat intolerance Timbo/Lymph Denies easy bruising Aller/Immun Denies itchy eyes, Denies seasonal rhinorrhea and Denies wheezing Physical Exam Vital Signs: Last Vital Signs Pulse 101 H 08/05/23 09:58 BP 98/58 L 08/05/23 09:58 Pulse Ox 83 L 08/05/23 09:58 Oxygen Delivery Method Nasal Cannula 08/05/23 09:58 Oxygen Flow Rate 3 08/05/23 09:58 BMI result Body Mass Index 26.3 Const General: no acute distress and alert Nutritional Appearance: not obese Orientation/consciousness: Other orientation findings ( oriented) HEENT Head: Yes atraumatic Eyes General: appearance normal, both eyes and all related structures Sclerae: sclerae normal EOM: EOMs intact bilaterally Neck Neck: Yes supple Lymphatic: no lymphadenopathy noted Resp Effort & Inspection: normal respiratory effort and no use of accessory muscles Auscultation: clear to auscultation bilaterally Cardio Rate: regular rate Rhythm: regular rhythm Heart sounds: no gallops, no murmurs and no rubs Skin General skin exam: other ( warm) Extrem General: No clubbing, No cyanosis and No edema Assessment & Plan Assessment & Plan (1) Severe chronic obstructive pulmonary disease: Code(s): J44.9 - Chronic obstructive pulmonary disease, unspecified Plan: Baseline controlled on Spiriva, duo nebs, and albuterol MDI. Continue current regimen. (2) Supplemental oxygen dependent: Code(s): Z99.81 - Dependence on supplemental oxygen Plan: Should be on 4 L continuous, has been using 4 L pulsed with significant hypoxia that improved after switching to continuous mode. Continue supplemental oxygen to maintain O2 saturation of 88-92%. Coding Level of Care Code Est Pt Level 4 (34752) Diagnoses Severe chronic obstructive pulmonary disease J44.9 Supplemental oxygen dependent Z99.81
== END 2023-08-05 10:30 | disposition home or self-care (01) ==
PROVIDERS: Visit Provider Internal Medicine Pulmonary Disease
DX: J44.9 Chronic obstructive pulmonary disease, unspecified (principal); Z99.81 Dependence on supplemental oxygen
CPT/HCPCS: 99214

== ENCOUNTER → 2023-08-05 09:49 | Outpatient (BNVA) | payer OTHER, SELFPAY | PROVIDERS: Visit Provider Internal Medicine Pulmonary Disease | DX: J44.9 Chronic obstructive pulmonary disease, unspecified (principal); R09.02 Hypoxemia; Z99.81 Dependence on supplemental oxygen; Z79.899 Other long term (current) drug therapy | CPT/HCPCS: 99212 ==

== ENCOUNTER 2023-09-21 10:52 | Outpatient (AMB) | payer MEDICARE, SELFPAY ==
[2023-09-21 11:20] VITALS: BP 126/70; PULSE 103; O2SAT 93; BMI 25.2
--- NOTE | 2023-09-21 11:20 | A.OFFPC_ITS ---
Vital Signs 09/21/23 11:20 Height 4 ft 11 in Weight 125 lb BMI 25.2 BP 126/70 Blood Pressure Location Lt brachial Position Sitting Pulse 103 H Pulse Source Pulse Oximeter Pulse Oximetry (%) 93 Oxygen Delivery Method Nasal Cannula Intake Visit Reasons: chf,copd Point Of Care Specialist Required: No Accompanied by: Self / Same As Patient Allergies nicotine [Nicotine] Allergy (Mild, Verified 09/21/23 11:31) ITCHING WITH THE PATCHES topiramate Allergy (Mild, Verified 09/21/23 11:31) inadequealte response Medication List - Last Reconciled 09/21/23 by Analisa Chavez MD albuterol sulfate 90 mcg/actuation (Ventolin HFA) 2 puffs inhalation Q4-6H PRN amlodipine 5 mg See Protocol PO BEDTIME folic acid 1 mg PO DAILY furosemide (Lasix) 40 mg PO DAILY 90 days ipratropium-albuterol 0.5 mg-3 mg(2.5 mg base)/3 mL 3 mL inhalation TID isosorbide mononitrate ER 30 mg PO DAILY losartan 100 mg PO DAILY metformin 500 mg PO DAILY 90 days montelukast 10 mg PO BEDTIME nebulizers As directed prednisone 5 mg PO DAILY 30 days quetiapine 50 mg PO BID 90 days sertraline 200 mg PO DAILY tiotropium bromide (Spiriva with HandiHaler) 1 cap inhalation DAILY varenicline (Chantix Starting Month Box) 0.5 mg bid for 4 days 1 mg bid for 12 more weeks Tobacco use date assessed: 05/20/23 Dental Screening Dental Screen Date: 05/20/23 HPI HPI Comments History of Present Illness Details This is a 63-year-old female with severe COPD, congestive heart failure, hypertension and diabetes mellitus type 2 that comes today for follow- up on her conditions. She is oxygen dependent and is currently at 4 L of oxygen with oxygen saturation of about 92-93%. Walks with a walker for gait stability. COPD is follow by pulmonology and has not been hospitalized in a while. Last echocardiogram was June 2023 showing ejection fraction of 51% and missed her appointment with Cardiology due to lack of oxygen tank. I will refer her again. Denies any chest pain or shortness of breath more than usual. Has not gain 5 lb in a week. Blood pressure stable. Last A1c was within goal. She also has low hemoglobin and thrombocytopenia and will be referred to Hematology-Oncology. Denies any active bleeding. [facility] Medical History (Updated 09/21/23 @ 11:58 by Analisa Chavez MD) Influenza A Asthma with exacerbation Hypoglycemia associated with type 2 diabetes mellitus HTN (hypertension) Acute hypoxic respiratory failure CHF (congestive heart failure) NSTEMI (non-ST elevated myocardial infarction) Hypoxic respiratory failure Chronic lung disease Congestive heart failure Mild recurrent major depression Hospital discharge follow-up Severe chronic obstructive pulmonary disease Diabetes Mitral regurgitation Chest pain Lumbar degenerative disc disease Right lower lobe pneumonitis Congestive heart failure Acute and chronic respiratory failure with hypoxia Respiratory failure with hypoxia and hypercapnia Atelectasis, right Hypertensive emergency Pulmonary hypertension Osteoporosis Essential hypertension Supraventricular tachycardia Nonischemic cardiomyopathy Non-rheumatic mitral regurgitation Tobacco abuse Depression Anxiety Chronic respiratory failure HFrEF (heart failure with reduced ejection fraction) KELLIE (obstructive sleep apnea) HLD (hyperlipidemia) Surgical History H/O hysterectomy for benign disease History of total abdominal hysterectomy Bilateral ankle fractures Family History Father No problems noted. Mother Liver cancer Hypertension Social History (Updated 09/21/23 @ 11:36 by Analisa Chavez MD) Household Members: None Household Members Other:: 1 Housing: Apartment Do you presently have visiting nurse or other home services: Yes ([facility] 1 hr daily) Unable to assess alcohol history related to: Unable to respond Alcohol intake: never Patient Tobacco Use Status: Current someday Tobacco user Tobacco use type: Cigarette Cigarettes Per Day: 5 Years Smoked: 50 +/- e-Cigarette/Vaping Use: Never Used Second Hand Smoke Exposure: No Advance Directives Date on File: 05/18/23 service: No Current occupational status: disabled Cognitive needs: Yes Hearing needs: No Vision needs: No Questionnaire Thrive Questionnaire Date Thrive assessed: 06/09/23 DIANELYS-7 AMB Questionnaire DIANELYS-7 Date DIANELYS - 7 assessed: 05/20/23 Source: Developed by Drs. Dennis Zayas, Cora Conrad, Sacha Rayo and colleagues, with an educational antonia from [employer] Review of Systems Const All systems reviewed & are unremarkable except as noted in HPI and below Eyes Reports no additional complaints, Denies change in vision and Denies other visual disturbances Card Denies chest pain at rest, Denies chest pain with activity, Denies edema, Denies irregular heart rhythm, Denies claudication, Denies dyspnea, Denies dyspnea on exertion, Denies orthopnea, Denies paroxysmal nocturnal dyspnea and Denies slow heart rate Resp Denies cough, Denies dyspnea and Denies dyspnea on exertion GI Denies abdominal pain, Denies change in bowel habits, Denies excessive flatus, Denies nausea and Denies vomiting Denies urinary incontinence, Denies urinary hesitancy and Denies urinary urgency Physical exam (Primary Care) Vital Signs: Last Vital Signs Pulse 103 H 09/21/23 11:20 BP 126/70 09/21/23 11:20 Pulse Ox 93 09/21/23 11:20 Oxygen Delivery Method Nasal Cannula 09/21/23 11:20 BMI result Body Mass Index 25.2 Tobacco/Smoking Status: Tobacco use Status Tobacco use date assessed 05/20/23 09/21/23 11:26 Patient Tobacco Use Status Former Tobacco user 09/21/23 11:26 Tobacco use type Cigarette 09/21/23 11:26 e-Cigarette/Vaping Use Never Used 09/21/23 11:26 Are you ready to quit: No Tobacco cessation counseling provided: Yes Items discussed: QuitWorks Relapse Prevention: discussed the importance of a supportive environment, discussed negative mood or depression after quitting, weight gain after smoking is common and discussed dietary, exercise and/or lifestyle changes Number of minutes spent counselin CPT code: 12296 - 4-10 Minutes Thrive Assessment: Date of Thrive Assessment Date Thrive assessed 06/09/23 09/21/23 11:26 Const Limitations: ambulation with walker Resp Effort & Inspection: normal respiratory effort Auscultation: clear to auscultation bilaterally Cardio Jugular venous distension: no JVD Rate: regular rate Rhythm: regular rhythm Heart sounds: S1 normal heart sound present and S2 normal heart sound present Extrem General: Yes full ROM Psych Appearance: grossly normal Assessment and Plan Assessment & Plan (1) CHF (congestive heart failure): Code(s): I50.9 - Heart failure, unspecified Qualifiers: Heart failure chronicity: acute on chronic Heart failure type: unspecified Qualified Code(s): I50.9 - Heart failure, unspecified Plan: Continue furosemide. Referred to cardiology. The goal is to not gain 5 lb in a week. (2) HTN (hypertension): Code(s): I10 - Essential (primary) hypertension Qualifiers: Hypertension type: essential hypertension Qualified Code(s): I10 - Essential (primary) hypertension Plan: Continue losartan and amlodipine. Blood pressure goal is equal or less than 130/80. (3) Severe chronic obstructive pulmonary disease: Code(s): J44.9 - Chronic obstructive pulmonary disease, unspecified Plan: Continue Spiriva. Use rescue inhaler as needed. Follow-up with pulmonology. (4) Type 2 diabetes mellitus, without long-term current use of insulin: Code(s): E11.9 - Type 2 diabetes mellitus without complications Plan: Continue metformin. A1c goal is equal or less than 7%. Orders: Orders Vitamin B12 and Folate Today E53.8 - Deficiency of other specified B group vitamins Lipid Panel Today E78.5 - Hyperlipidemia, unspecified Comprehensive [place]. Panel Fast Today I50.9 - Heart failure, unspecified Complete Blood Count Auto Diff Today D64.9 - Anemia, unspecified IRON PROFILE Today D64.9 - Anemia, unspecified Vitamin D 25-OH Total Today E55.9 - Vitamin D deficiency, unspecified Microalbumin, Random (w Creat) Today E11.9 - Type 2 diabetes mellitus without complications NT-proBNP Today I50.9 - Heart failure, unspecified Referrals Cardiology Referral I21.4 - Non-ST elevation (NSTEMI) myocardial infarction, I50.9 - Heart failure, unspecified Hematology & Oncology Referral D75.89 - Other specified diseases of blood and blood-forming organs Coding Level of Care Code Est Pt Level 4 (31341) Diagnoses CHF (congestive heart failure) I50.9 Heart failure chronicity: acute on chronic Heart failure type: unspecified Essential hypertension I10 Hypertension type: essential hypertension Severe chronic obstructive pulmonary disease J44.9 Type 2 diabetes mellitus, without long-term current use of insulin E11.9 Additional Codes Vital Signs *Quality* - CPT code: 15880 - 4-10 Minutes ([id number]) Time Spent (min) 24
== END 2023-09-21 11:42 | disposition home or self-care (01) ==
PROVIDERS: Visit Provider Internal Medicine
DX: I11.0 Hypertensive heart disease with heart failure (principal); E11.9 Type 2 diabetes mellitus without complications; I50.9 Heart failure, unspecified; J44.9 Chronic obstructive pulmonary disease, unspecified
CPT/HCPCS: 99214

== ENCOUNTER 2023-11-20 09:49 | Outpatient (AMB) | payer MEDICAID, SELFPAY ==
[2023-11-20 09:52] VITALS: BP 126/70; PULSE 104; BMI 25.2
--- NOTE | 2023-11-20 09:52 | A.OFFVIS_ITS ---
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 And Veneer Repairer Name: [id number] Allergies nicotine [Nicotine] Allergy (Mild, Verified 09/21/23 11:31) ITCHING WITH THE PATCHES topiramate Allergy (Mild, Verified 09/21/23 11:31) inadequealte response Medication List - Last Reconciled 11/20/23 by NUPUR Rojas albuterol sulfate 90 mcg/actuation (Ventolin HFA) 2 puffs inhalation Q4-6H PRN amlodipine 5 mg See Protocol PO BEDTIME folic acid 1 mg PO DAILY furosemide (Lasix) 40 mg PO DAILY 90 days ipratropium-albuterol 0.5 mg-3 mg(2.5 mg base)/3 mL 3 mL inhalation TID isosorbide mononitrate ER 30 mg PO DAILY 90 days losartan 100 mg PO DAILY metformin 500 mg PO DAILY 90 days montelukast 10 mg PO BEDTIME nebulizers As directed prednisone 5 mg PO DAILY 30 days quetiapine 50 mg PO BID 90 days sertraline 200 mg PO DAILY tiotropium bromide (Spiriva with HandiHaler) 1 cap inhalation DAILY varenicline (Chantix Starting Month Box) 0.5 mg bid for 4 days 1 mg bid for 12 more weeks HPI HPI r/s 09/06,10/12 6 mos followup: Details: Paola is a 63-year-old female with past medical history of hypertension, diabetes, COPD, nonischemic cardiomyopathy who presents for follow-up after recent hospitalizations. Today she reports that since her last visit she was hospitalized at least 3 times with increasing shortness of breath. She was treated for COPD exacerbation and Congestive heart failure. Her breathing has improved but she remains chronically short of breath and wears oxygen continually with nasal cannula. She is able to sleep on her left side with 1 pillow. She denies exertional chest discomfort. She does have some tenderness in her left chest region to palpation. No reports of heart palpitations, dizziness, presyncope, syncope, falls. No PND, orthopnea or edema. Taking meds as directed. Ambul ates with a walker. Certified pump runner used. [facility] Medical History Influenza A Asthma with exacerbation Hypoglycemia associated with type 2 diabetes mellitus HTN (hypertension) Acute hypoxic respiratory failure CHF (congestive heart failure) NSTEMI (non-ST elevated myocardial infarction) Hypoxic respiratory failure Chronic lung disease Congestive heart failure Mild recurrent major depression Hospital discharge follow-up Severe chronic obstructive pulmonary disease Diabetes Mitral regurgitation Chest pain Lumbar degenerative disc disease Right lower lobe pneumonitis Congestive heart failure Acute and chronic respiratory failure with hypoxia Respiratory failure with hypoxia and hypercapnia Atelectasis, right Hypertensive emergency Pulmonary hypertension Osteoporosis Essential hypertension Supraventricular tachycardia Nonischemic cardiomyopathy Non-rheumatic mitral regurgitation Tobacco abuse Depression Anxiety Chronic respiratory failure HFrEF (heart failure with reduced ejection fraction) KELLIE (obstructive sleep apnea) HLD (hyperlipidemia) Surgical History H/O hysterectomy for benign disease History of total abdominal hysterectomy Bilateral ankle fractures Family History Father No problems noted. Mother Liver cancer Hypertension Social History Household Members: None Household Members Other:: 1 Housing: Apartment Do you presently have visiting nurse or other home services: Yes ([facility] 1 hr daily) Unable to assess alcohol history related to: Unable to respond Alcohol intake: never Patient Tobacco Use Status: Current someday Tobacco user Tobacco use type: Cigarette Cigarettes Per Day: 5 Years Smoked: 50 +/- e-Cigarette/Vaping Use: Never Used Second Hand Smoke Exposure: No Advance Directives Date on File: 05/18/23 service: No Current occupational status: disabled Cognitive needs: Yes Hearing needs: No Vision needs: No Review of Systems Const All systems reviewed & are unremarkable except as noted in HPI and below Denies weakness ENT Reports dizziness Card Reports chest pain (tenderness to left chest wall), Denies chest pain with activity, Denies syncope, Denies rapid heart rate, Denies pedal edema, Denies edema, Denies leg edema, Denies lightheadedness, Denies palpitations, Reports dyspnea, Reports dyspnea on exertion and Reports orthopnea Resp Details: wearing O2 4 liters Denies cough, Reports dyspnea and Reports dyspnea on exertion GI Denies hematochezia and Denies change in stool character Musc Reports abnormal gait (uses walker), Denies muscle cramps, Denies muscle weakness, Denies numbness, Denies radiating pain into limb and Denies tingling Neuro Reports abnormal gait (uses walker), Reports dizziness, Denies syncope, Denies numbness, Denies tingling and Denies weakness Endo Denies palpitations Physical Exam Vital Signs: Last Vital Signs Pulse 104 H 11/20/23 09:52 BP 126/70 11/20/23 09:52 BMI result Body Mass Index 25.2 Const Other: wearing O2 with nasal cannula General: cooperative and no acute distress Orientation/consciousness: patient oriented x3 Neck Neck: Yes normal visual inspection Resp Effort & Inspection: normal respiratory effort Auscultation: clear to auscultation bilaterally, rales (fine rales in each base), no rhonchi and no wheezes Cardio Jugular venous distension: no JVD Rate: tachycardic Rhythm: regular rhythm Heart sounds: S1 normal heart sound present, S2 normal heart sound present, no murmurs and no rubs Neuro General: patient oriented x3 Extrem General: Yes normal to inspection and No no pedal edema Psych Appearance: grossly normal Mental Status: mental status grossly normal Speech and movement: Normal speech and movement present Assessment & Plan Assessment & Plan (1) Congestive heart failure: Code(s): I50.9 - Heart failure, unspecified Category: Medical Qualifiers: Heart failure chronicity: acute on chronic Heart failure type: unspecified Qualified Code(s): I50.9 - Heart failure, unspecified Plan: History of nonischemic cardiomyopathy with Congestive heart failure in past. Last echocardiogram done 06/09/2023 showed EF 51%, severe LVH, basal inferior and inferior septal akinetic, [id number] MR. During that admission she did have elevated troponin levels and was treated for mild Congestive heart failure. Today she reports she has not had any chest discomfort at rest or with activity. She has chronic shortness of breath which is stable. On exam she does have some faint rales noted in her bases but does not appear fluid overloaded otherwise. The rales could be related to atelectasis. Her weight is down compared to prior weights. She is on Lasix 40 mg daily. She is on losartan for neurohormonal modulation. She had been on carvedilol which was likely stopped due to her COPD. Last labs done 06/21/2023 showing potassium 3.8, creatinine 0.81. Signs and symptoms of heart failure reviewed with her. Car diology follow-up in 3 months, sooner if needed. (2) Elevated troponin: Code(s): R79.89 - Other specified abnormal findings of blood chemistry Category: Medical Plan: During hospital admission she was evaluated by Dr. Germain for elevated troponins consistent with secondary type NSTEMI. An outpatient dobutamine nuclear stress test was ordered following that admission however not completed as of yet. Patient will need ischemic eval in the setting of her elevated troponins. Reviewed this with her. (3) NSTEMI (non-ST elevated myocardial infarction): Code(s): I21.4 - Non-ST elevation (NSTEMI) myocardial infarction Category: Medical Plan: As above (4) Chest pain: Code(s): R07.9 - Chest pain, unspecified Category: Medical Plan: Atypical left-sided chest discomfort that is tender to palpation. Informed her this is noncardiac pain. (5) Mitral regurgitation: Code(s): I34.0 - Nonrheumatic mitral (valve) insufficiency Category: Medical Plan: Prior echo had shown moderate to severe mitral regurgitation. Most recent echo shows [id number] MR. No clear signs of fluid overload on exam. (6) Essential hypertension: Code(s): I10 - Essential (primary) hypertension Category: Medical Plan: Normal range today. No med changes made (7) COPD (chronic obstructive pulmonary disease): Code(s): J44.9 - Chronic obstructive pulmonary disease, unspecified Category: Medical Qualifiers: COPD type: emphysema Emphysema type: centrilobular Qualified Code(s): J43.2 - Centrilobular emphysema Plan: Follows with pulmonology. Hospital admissions for exacerbation this past year. Combination with COPD/ Congestive heart failure. Plan Time spent on chart review, documentation, interview, assessment, orders Coding Level of Care Code Est Pt Level 4 (20735) Diagnoses Congestive heart failure I50.9 Heart failure chronicity: acute on chronic Heart failure type: unspecified Elevated troponin R79.89 NSTEMI (non-ST elevated myocardial infarction) I21.4 Chest pain R07.9 Mitral regurgitation I34.0 Essential hypertension I10 Centrilobular emphysema J43.2 COPD type: emphysema Emphysema type: centrilobular Time Spent (min) 30
== END 2023-11-20 10:57 | disposition home or self-care (01) ==
PROVIDERS: PCP Internal Medicine; Visit Provider Nurse Practitioner Family
DX: I50.9 Heart failure, unspecified (principal); R79.89 Other specified abnormal findings of blood chemistry; I21.4 Non-ST elevation (NSTEMI) myocardial infarction; R07.9 Chest pain, unspecified; I34.0 Nonrheumatic mitral (valve) insufficiency; I10 Essential (primary) hypertension; J43.2 Centrilobular emphysema
CPT/HCPCS: 99214

== ENCOUNTER → 2023-11-20 09:49 | Outpatient (BNVA) | payer MEDICAID, SELFPAY | PROVIDERS: PCP Internal Medicine; Visit Provider Nurse Practitioner Family | DX: I11.0 Hypertensive heart disease with heart failure (principal); I50.9 Heart failure, unspecified; I21.4 Non-ST elevation (NSTEMI) myocardial infarction; I34.0 Nonrheumatic mitral (valve) insufficiency; R06.02 Shortness of breath; R79.89 Other specified abnormal findings of blood chemistry; R07.9 Chest pain, unspecified; J43.2 Centrilobular emphysema; F17.210 Nicotine dependence, cigarettes, uncomplicated; Z79.899 Other long term (current) drug therapy | CPT/HCPCS: 99212 ==

== ENCOUNTER → 2023-12-31 12:03 | Outpatient (RCR) | payer OTHER, SELFPAY ==
[2020-07-26 10:12] VITALS: BP 199/102; PULSE 118; RESP 14; TEMP 36.2; O2SAT 93; BMI 31.4
--- NOTE | 2020-07-26 11:14 | MHC.HEMONCMA ---
Pt presents for consult on anemia. History reviewed, labs drawn and pt to return in 3 months. Pt also was scheduled to see Angeles DOUGHERTY on 08/29/20 @ 11:30 am. This information was given to pt prior to leaving office.
[2020-07-26 11:23] LABS: Hematocrit 34.4 % (37-47); Hemoglobin 10.5 g/dl (12.0-16.0); MANUAL DIFF FLAG NO; Mean Corpuscular HGB Conc 30.5 g/dl (31.0-35.0); Mean Corpuscular Hemoglobin 25.3 pg (27.0-33.0); Mean Corpuscular Volume 82.9 fL (80-98); Red Blood Count 4.15 X10*6/uL (4.20-5.50); Red Cell Distribution Width 15.6 % (11.0-16.0); White Blood Count 8.5 X10*3/uL (4.8-10.8)
[2020-07-26 11:24] LABS: Basophils Percent Auto 0.1 % (0-2); Eosinophils Absolute Auto 0.1 X10*3/uL (0.0-0.4); Eosinophils Percent Auto 0.7 % (0-4); Imm Gran Abs Auto 0.02 X10*3/uL (0.00-0.03); Imm Gran Pct Auto 0.2 % (0.0-0.4); Lymphocytes Absolute Auto 1.6 X10*3/uL (1.2-4.9); Lymphocytes Percent Auto 19.3 % (20-40); Mean Platelet Volume 11.1 fL (9.4-12.3); Monocytes Absolute Auto 0.6 X10*3/uL (0.1-1.2); Monocytes Percent Auto 6.5 % (2-11); Neutrophils Absolute Auto 6.2 X10*3/uL (2.0-8.3); Neutrophils Percent Auto 73.2 % (45-73); Platelet Count 201 X10*3/uL (160-400)
[2020-07-26 12:59] LABS: Alanine Aminotransferase 7 U/L (0-31); Albumin Level 4.2 g/dL (3.5-5.0); Alkaline Phosphatase 165 U/L (39-117); Anion Gap 16 (12-20); Aspartate Amino Transferase 14 U/L (5-31); Bilirubin Total 0.3 mg/dL (0.0-1.0); Blood Urea Nitrogen 10 mg/dL (9-16); Carbon Dioxide 27 mmol/L (22-29); Chloride 103 mmol/L (96-108); Creatinine Clr Calc Pharmacy 67.2; Estimated Glomerular Filt Rate > 60; Glucose Random 177 mg/dL (60-115); Iron 48 mcg/dL (30-160); Percent Iron Saturation 13 % (15-50); Potassium 3.8 mmol/L (3.3-5.1); Sodium 142 mmol/L (135-145); Total Iron Binding Capacity 357 mcg/dL (228-428); Total Protein 7.3 g/dL (6.5-8.0); Unsaturated Iron Binding 309 ug/dL
[2020-07-26 13:19] LABS: Ferritin 13 ng/mL (10-250)
[2020-07-26 13:23] LABS: Folate 4.5 ng/mL (> or = 4.0); Vitamin B12 217 pg/mL (200-900)
--- NOTE | 2020-07-26 17:31 | PM.HEMONCCN ---
Subjective - Subjective Chief complaint: Consult for: Anemia. Patient: new to practice Consult date: 07/26/20 Requesting Physician: Bolivar. Primary Care Provider: Analisa Chavez MD Medical Summary: DIAGNOSIS: NORMOCHROMIC NORMOCYTIC ANEMIA. HPI - Consult Narrative Reason for consult: CONSULT FOR: ANEMIA. Narrative: Paola Romero is a pleasant 60 year old lady, who has been noted to be rather anemic, over the past few years. Review of her labs in the computer revealed the following trend of hemoglobin: Dec 29, 05:19 9.5 Dec 28, 05:31 9.6 Dec 27, 05:30 9.6 Dec 26, 10:17 11.1 Oct 24, 09:12 12.7 September 02, 06:30 12.3 September 01, 05:18 11.7 Aug 31, 05:36 11.2. Recent hemoglobin: 10.5. ROS: She does feel rather fatigued. No fever nor chills. Appetite is not that good. She has gained weight. She complains of headache and dizziness. Sometimes she gets chest pain. No shortness of breath. She denies cough no sputum. She complains of pelvic pain. No nausea or vomiting. Sometimes she gets diarrhea. She did have an upper endoscopy 04/21 which revealed gastritis. Colonoscopy was 02/[address] Graham which revealed tubular adenoma. She is due for repeat colonoscopy. no dysuria hematuria. She denies any joint pains muscle pain. She does feel depressed at times. Denies skin rashes nor pruritus. Family history: Mom has had heart problems. No blood disorder nor malignancy in the family. Social history: She used to work but not any longer. She is . Has 4 children. She smokes 5-6 cigarettes a day since the age of 17. Denies alcohol denies drugs. Review of Systems - Constitutional Reports system reviewed and no additional complaints, except as documented, Reports lack of energy, Reports malaise, Reports weight gain - Eyes Reports system reviewed and no additional complaints, except as documented - ENT Reports system reviewed and no additional complaints, except as documented - Cardiovascular Reports system reviewed and no additional complaints, except as documented - Respiratory Reports no additional respiratory complaints - Gastrointestinal Reports system reviewed and no additional complaints, except as documented - Genitourinary Reports no additional female genitourinary complaints - Musculoskeletal Reports system reviewed and no additional complaints, except as documented - Integumentary/Breasts Skin/Breast: Reports no additional skin complaints - Neurologic Reports system reviewed and no additional complaints, except as documented - Psychiatric Reports system reviewed and no additional complaints, except as documented - Endocrine Reports no additional endocrine complaints - Hematologic/Lymphatic Reports system reviewed and no additional complaints, except as documented - Allergic/Immunologic Reports system reviewed and no additional complaints, except as documented Oncology Screenings - ECOG Performance Status ECOG Performance Status: 0 [facility] Medical History: Medical History (Last Reviewed 06/16/20 @ 05:41 by Carolyn Duvall MD) Anxiety Cardiomyopathy Chronic respiratory failure COPD (chronic obstructive pulmonary disease) Depression Diabetes HFrEF (heart failure with reduced ejection fraction) HLD (hyperlipidemia) HTN (hypertension) Low back pain Mitral regurgitation Normocytic anemia KELLIE (obstructive sleep apnea) Postmenopausal Severe chronic obstructive pulmonary disease Supplemental oxygen dependent Functional capacity: independent ambulation Patient : No Family History: Family History (Last Reviewed 06/16/20 @ 05:41 by Carolyn Duvall MD) Father No problems noted. Mother Liver cancer Hypertension Surgical History: Surgical History (Last Reviewed 06/16/20 @ 05:41 by Carolyn Duvall MD) Bilateral ankle fractures History of total abdominal hysterectomy Social History: Social History (Last Updated 07/26/20 @ 10:18 by Emilia Benjamin) Living Situation History: Household Members: None Housing: Apartment Alcohol History: Alcohol intake: never Tobacco History: Tobacco Type: Cigarette Packs Per Day: 1 Second Hand Smoke Exposure: No Occupation Assessmet: service: No Current occupational status: unemployed Smoking status: Current every day smoker Home Medications and Allergies Home Medications Medication Instructions Recorded Confirmed Type furosemide 1 tab PO QAM 03/08/20 07/26/20 History metformin 1 tab PO BID 03/08/20 07/26/20 History montelukast 1 tab PO BEDTIME 03/08/20 07/26/20 History omeprazole 20 mg PO DAILY@0630 03/08/20 07/26/20 History quetiapine 1 tab PO BID 03/08/20 07/26/20 History sertraline 2 tab PO DAILY 03/08/20 07/26/20 History trazodone 50 - 100 mg PO BEDTIME PRN 03/08/20 07/26/20 History simvastatin 40 mg tablet 40 mg PO BEDTIME 05/21/20 07/26/20 History Allergies Allergy/AdvReac Type Severity Reaction Status Date / Time nicotine [Nicotine] Allergy Unknown ITCHING Verified 05/21/20 10:40 WITH THE PATCHES topiramate Allergy Unknown inadequealte Verified 05/21/20 10:40 response Physical Exam Vital signs: Vital Signs Temp 97.2 F 07/26/20 10:12 Pulse 118 H 07/26/20 10:12 Resp 14 07/26/20 10:12 BP 199/102 H 07/26/20 10:12 Pulse Ox 93 07/26/20 10:12 Intake & Output 07/25/20 07/26/20 07/26/20 18:59 06:59 18:59 Other: Weight 70.5 kg [place] Weight in Grams 23034 Weight 70.5 kg - Constitutional Present: mild distress - Routine HEENT Exam Head: Present: normal inspection ENT: Present: mucous membranes moist - Routine Neck Exam Present: supple - Routine Respiratory Exam Present: stridor - Routine Cardiovascular Exam Cardiovascular: Present: RRR, S1, S2 - Routine Abdominal Exam Present: soft, nontender - Routine Rectal Exam Patient deferred: digital exam - Routine Extremities Exam Present: nontender - Routine Skin Exam Present: intact - Routine Neurological Exam Present: alert, oriented X3 - Detailed Neurological Exam: Coma Scale Eye Opening: Spontaneous (4) Verbal Response: Oriented (5) Motor Response: Obeys commands (6) Charisma Coma Scale Total: 15 - Routine Psychiatric Exam Present: normal affect Hem/Onc Consult Result - Labs CBC & Chem 7: 07/26/20 10:50 07/26/20 Unknown Labs: Short CBC 07/26/20 Range/Units 10:50 WBC 8.5 (4.8-10.8) X10*3/uL Hgb 10.5 L (12.0-16.0) g/dl Hct 34.4 L (37-47) % Plt Count 201 (160-400) X10*3/uL BMP 07/26/20 Unknown Sodium 142 Potassium 3.8 Chloride 103 Carbon Dioxide 27 BUN 10 D Creatinine 0.77 Calcium 9.0 Liver Function 07/26/20 Range/Units Unknown Total Bilirubin 0.3 (0.0-1.0) mg/dL AST 14 (5-31) U/L ALT 7 (0-31) U/L Alkaline Phosphatase 165 H D (39-117) U/L Albumin 4.2 (3.5-5.0) g/dL Assessment and Plan (1) Anemia Status: Acute This is a pleasant 60-year-old lady with a history of Anemia. She has normochromic normocytic anemia. DIFFERENTIAL DIAGNOSIS: 1. IRON DEFICIENCY ANEMIA: This is likely. Her iron profile from last month was consistent with it. Concern would be occult GI bleeding. IRON MALABSORPTION: From something like celiac disease is in the differential. 2. THALASSEMIA: This is a possibility. 3. B12 OR FOLATE DEFICIENCY: She can have multifactorial anemia, especially if she has celiac disease. 4. ANEMIA OF CHRONIC DISEASE: Also a possibility, though iron studies are consistent with iron deficiency. 5. MYELO INFILTRATIVE DISORDER: Not likely especially at her young age with no other signs or symptoms. PLAN: I will proceed with further evaluation. Check iron studies: 48//. Check celiac profile. Actually her B12 and folate level came back borderline low: B12 217, folate 4.5. Will put her on replacement therapy for both. She will return to receive the intramuscular B12 injection weekly x4, then monthly thereafter. Start oral folate 1 mg p.o. daily. She will be referred to GI for her screening colonoscopy. She is due now. Will start oral iron replacement therapy, as well. She will return in 3 months for a follow-up visit. Thank you, CC: Bolivar. Dr. Luiza Graham.
[2020-07-27 21:47] LABS: Transglutaminase IgA 1 U/mL
[2020-07-31 18:21] LABS: Intrinsic Factor Antibodies Negative (Negative)
[2020-08-06 10:07] VITALS: BP 130/96; PULSE 106; RESP 20; TEMP 36.8; O2SAT 93; BMI 31.8
[2020-08-06] MEDS: Cyanocobalamin (Vitamin B-12) 1,000 MCG/ML VIAL 1000 MCG IM (10:36)
--- NOTE | 2020-08-06 11:22 | MHC.HEMONC ---
B-12 injection given as ordered. Scheduled for injection in 1 week.
--- NOTE | 2020-09-26 15:08 | MHC.HEMONC ---
Iris called patient twice regarding missed appointments for B12 injections. Patient did not answer.
== END | disposition home or self-care (01) ==
LOC: HO.ONC 07-26 10:02
PROVIDERS: PCP Internal Medicine; Referring Provider Internal Medicine; Visit Provider Internal Medicine Medical Oncology
DX: E53.8 Deficiency of other specified B group vitamins (principal)
CPT/HCPCS: 36415; 80053; 82607; 82728; 82746; 83516; 83540; 85025; 86340; 96372; 99204

== ENCOUNTER 2024-02-05 10:04 | Outpatient (AMB) | payer MEDICAID, SELFPAY ==
[2024-02-05 10:10] VITALS: BP 140/68; PULSE 98; BMI 25.8
--- NOTE | 2024-02-05 10:10 | A.OFFVIS_ITS ---
Vital Signs 02/05/24 10:10 Height 4 ft 11 in Weight 127 lb 13.89 oz BMI 25.8 BP 140/68 H Blood Pressure Location Lt brachial Position Sitting Pulse 98 Pulse Source Pulse Oximeter Intake Visit Reasons: 3m follow up Crime Lab Analyst Required: Yes Crime Lab Analyst Name: [id number] Allergies nicotine [Nicotine] Allergy (Mild, Verified 02/05/24 11:02) ITCHING WITH THE PATCHES topiramate Allergy (Mild, Verified 02/05/24 11:02) inadequealte response Medication List - Last Reconciled 02/05/24 by Keiry Horne, FLIGHT CONTROLS ENGINEER-C albuterol sulfate 90 mcg/actuation (Ventolin HFA) 2 puffs inhalation Q4-6H PRN amlodipine 5 mg See Protocol PO BEDTIME folic acid 1 mg PO DAILY furosemide (Lasix) 40 mg PO DAILY 90 days ipratropium-albuterol 0.5 mg-3 mg(2.5 mg base)/3 mL 3 mL inhalation TID isosorbide mononitrate ER 30 mg PO DAILY 90 days losartan 100 mg PO DAILY metformin 500 mg PO DAILY 90 days montelukast 10 mg PO BEDTIME nebulizers As directed prednisone 5 mg PO DAILY 30 days quetiapine 50 mg PO BID 90 days sertraline 200 mg PO DAILY tiotropium bromide (Spiriva with HandiHaler) 1 cap inhalation DAILY varenicline (Chantix Starting Month Box) 0.5 mg bid for 4 days 1 mg bid for 12 more weeks HPI HPI 3m follow up: Details: Paola is a 63-year-old female with past medical history of hypertension, richi betes, COPD, nonischemic cardiomyopathy who presents for follow-up. Today she reports that she has continual shortness of breath and has been needing to use increase dose of oxygen recently. She says she has not taken any medications at all in the last 3 months. She tells me that she is hoping to just . She says she has thought of different ways that she can end her life. She says that her visiting nurse called crisis on her and they went to her home. Hui got angry and kicked them out of the house when they said they were calling the ambulance. She tells me she has been admitted to the psychiatric unit on a few occasions, none in the last few years. She admits to having depression and feels that her situation is hopeless. She tells me she has 1 dollar in her pocket and her rent is due. Her family does not participate in her day-to-day life. She lives alone. She denies having chest pain, palpitations, lightheadedness, fainting or falling. She ambulates with a [employer] g walker. She tells us that she had to walk to this appointment as she has no transportation. Certified program eligibility specialist used. [facility] Medical History Influenza A Asthma with exacerbation Hypoglycemia associated with type 2 diabetes mellitus HTN (hypertension) Acute hypoxic respiratory failure CHF (congestive heart failure) NSTEMI (non-ST elevated myocardial infarction) Hypoxic respiratory failure Chronic lung disease Congestive heart failure Mild recurrent major depression Hospital discharge follow-up Severe chronic obstructive pulmonary disease Diabetes Mitral regurgitation Chest pain Lumbar degenerative disc disease Right lower lobe pneumonitis Congestive heart failure Acute and chronic respiratory failure with hypoxia Respiratory failure with hypoxia and hypercapnia Atelectasis, right Hypertensive emergency Pulmonary hypertension Osteoporosis Essential hypertension Supraventricular tachycardia Nonischemic cardiomyopathy Non-rheumatic mitral regurgitation Tobacco abuse Depression Anxiety Chronic respiratory failure HFrEF (heart failure with reduced ejection fraction) KELLIE (obstructive sleep apnea) HLD (hyperlipidemia) Surgical History H/O hysterectomy for benign disease History of total abdominal hysterectomy Bilateral ankle fractures Family History Father No problems noted. Mother Liver cancer Hypertension Social History Household Members: None Household Members Other:: 1 Housing: Apartment Do you presently have visiting nurse or other home services: Yes ([facility] 1 hr daily) Unable to assess alcohol history related to: Unable to respond Alcohol intake: never Patient Tobacco Use Status: Current someday Tobacco user Tobacco use type: Cigarette Cigarettes Per Day: 5 Years Smoked: 50 +/- e-Cigarette/Vaping Use: Never Used Second Hand Smoke Exposure: No Advance Directives: Yes Advance Directives on File: Yes Advance Directives Date on File: 05/18/23 Do you have a plan to hurt others: No Plan service: No Current occupational status: disabled Cognitive needs: Yes Hearing needs: No Vision needs: No Review of Systems Const All systems reviewed & are unremarkable except as noted in HPI and below Reports lethargy and Reports weakness ENT Denies dizziness Card Reports chest pain, Reports chest pain at rest, Denies chest pain with activity, Denies syncope, Denies rapid heart rate, Denies pedal edema, Denies edema, Denies leg edema, Denies lightheadedness, Denies palpitations, Reports dyspnea, Reports dyspnea on exertion and Reports orthopnea Resp Denies cough, Reports dyspnea and Reports dyspnea on exertion GI Denies hematochezia and Denies change in stool character Musc Details: uses wheeling walker Reports abnormal gait, Denies muscle cramps, Denies muscle weakness, Denies numbness, Denies radiating pain into limb and Denies tingling Neuro Reports abnormal gait, Denies dizziness, Denies syncope, Denies numbness, Denies tingling and Reports weakness Psych Reports depression, Reports hopelessness and Reports suicidal ideation Endo Denies palpitations Physical Exam Vital Signs: Last Vital Signs Pulse 98 02/05/24 10:10 BP 140/68 H 02/05/24 10:10 BMI result Body Mass Index 25.8 Const Other: wearing O2 with nasal cannula General: cooperative and no acute distress Orientation/consciousness: patient oriented x3 Resp Effort & Inspection: normal respiratory effort Auscultation: rales (fine rales in each base), no rhonchi and no wheezes Cardio Jugular venous distension: no JVD Rate: tachycardic Rhythm: regular rhythm Heart sounds: S1 normal heart sound present, S2 normal heart sound present, no murmurs and no rubs Neuro General: patient oriented x3 Extrem General: Yes normal to inspection and No no pedal edema Psych Appearance: grossly normal Mental Status: mental status grossly normal Speech and movement: Normal speech and movement present Assessment & Plan Assessment & Plan (1) Suicidal thoughts: Code(s): R45.851 - Suicidal ideations Category: Medical Plan: Patient states she has not taken any medication then last 3 weeks. She is hoping to just . She has thought of different ways to try to end her life. She is being hopeless with her health and financial situation. Reported history of psychiatric admissions. Informed her we are concerned about her well-being and would like to assist in getting her help. She is agreeable to undergo psychiatric evaluation at this time. Report called to the emergency room. Patient transported via wheelchair to the ER triage desk. (2) Congestive heart failure: Code(s): I50.9 - Heart failure, unspecified Category: Medical Qualifiers: Heart failure chronicity: acute on chronic Heart failure type: unspecified Qualified Code(s): I50.9 - Heart failure, unspecified Plan: History of nonischemic cardiomyopathy with Congestive heart failure in past. Last echocardiogram done 06/09/2023 showed EF 51%, severe LVH, basal inferior and inferior septal akinetic, senu-[id number] MR. During that admission she did have elevated troponin levels and was treated for mild Congestive heart failure. Today she denies having any recent chest discomfort at rest or with activity. She has chronic shortness of breath which she feels is getting worse. She is currently wearing oxygen at 4 L. she has not taken her medications in the last 3 weeks. Instructed on restarting her daily medications including Lasix, losartan, amlodipine, isosorbide. A dobutamine nuclear stress test was previously ordered on her and she does not want to complete it. Signs and symptoms of heart failure reviewed with her. Cardiology follow-up following hospital discharge, 4 to 6 weeks, sooner if needed. (3) Elevated troponin: Code(s): R79.89 - Other specified abnormal findings of blood chemistry Category: Medical Plan: During hospital admission, May 2023, she was evaluated by Dr. Germain for elevated troponins consistent with secondary type NSTEMI. An outpatient dobutamine nuclear stress test was ordered following that admission however not completed by patient. Patient will ideally need ischemic eval in the setting of her elevated troponins. At this time she is refusing stress test. (4) NSTEMI (non-ST elevated myocardial infarction): Code(s): I21.4 - Non-ST elevation (NSTEMI) myocardial infarction Category: Medical Plan: As above (5) Mitral regurgitation: Code(s): I34.0 - Nonrheumatic mitral (valve) insufficiency Category: Medical Plan: Prior echo had shown moderate to severe mitral regurgitation. Most recent echo shows utex-fw-czwrivmn MR. No clear signs of fluid overload on exam. (6) Essential hypertension: Code(s): I10 - Essential (primary) hypertension Category: Medical Plan: Normal range today. Has not been taking medications however should restart. (7) COPD (chronic obstructive pulmonary disease): Code(s): J44.9 - Chronic obstructive pulmonary disease, unspecified Category: Medical Qualifiers: COPD type: emphysema Emphysema type: centrilobular Qualified Code(s): J43.2 - Centrilobular emphysema Plan: Follows with pulmonology. Wears oxygen continually. Tells me she has been having to increase her dose to shortness of breath. Plan Time spent on chart review, documentation, interview, assessment, orders Coding Level of Care Code Est Pt Level 5 (97396) Complex EM visit Add On G2211 Diagnoses Suicidal thoughts R45.851 Congestive heart failure I50.9 Heart failure chronicity: acute on chronic Heart failure type: unspecified Elevated troponin R79.89 NSTEMI (non-ST elevated myocardial infarction) I21.4 Mitral regurgitation I34.0 Essential hypertension I10 Centrilobular emphysema J43.2 COPD type: emphysema Emphysema type: centrilobular Time Spent (min) 50
== END 2024-02-05 10:51 | disposition home or self-care (01) ==
LOC: HO.HCS 10:04
PROVIDERS: PCP Internal Medicine; Visit Provider Nurse Practitioner Family
DX: R45.851 Suicidal ideations (principal); I50.9 Heart failure, unspecified; R79.89 Other specified abnormal findings of blood chemistry; I21.4 Non-ST elevation (NSTEMI) myocardial infarction; I34.0 Nonrheumatic mitral (valve) insufficiency; I10 Essential (primary) hypertension; J43.2 Centrilobular emphysema
CPT/HCPCS: 99215

== ENCOUNTER → 2024-02-05 10:04 | Outpatient (BNVA) | payer MEDICAID, SELFPAY | PROVIDERS: PCP Internal Medicine; Visit Provider Nurse Practitioner Family | DX: I11.0 Hypertensive heart disease with heart failure (principal); I50.9 Heart failure, unspecified; I21.4 Non-ST elevation (NSTEMI) myocardial infarction; I34.0 Nonrheumatic mitral (valve) insufficiency; R79.89 Other specified abnormal findings of blood chemistry; J43.2 Centrilobular emphysema; R45.851 Suicidal ideations; Z99.81 Dependence on supplemental oxygen | CPT/HCPCS: 99212 ==

== ENCOUNTER 2024-02-05 10:55 | Emergency (ER) | payer MEDICAID, SELFPAY ==
[2024-02-05 11:00] VITALS: BP 147/94; PULSE 76; RESP 18; TEMP 36.4; O2SAT 93; BMI 25.0
--- NOTE | 2024-02-05 11:12 | ED_ITS ---
HPI - General Adult General Chief complaint: Psychiatric Symptoms Stated complaint: crisis Time Seen by Provider: 02/05/24 11:12 Source: patient and glass unloading equipment tender (all interactions with this patient were facilitated with an [facility] passport application examiner) Mode of arrival: wheelchair Limitations: physical limitation (all interactions with this patient were facilitated with an [facility] passport application examiner) History of Present Illness ED Provider: Ayde Stein PA-C HPI narrative: Patient is a 63 year old assigned female at with a history of DM, CHF, HTN, COPD on chronic oxygenation, and depression presenting to the emergency department today with increased depression. Patient states that she was seeing her concrete mason today and made a comment that she was more depressed. Patient denies any current thoughts of hurting herself or anyone else, dizziness, lightheadedness, abdominal pain, nausea, vomiting, fever, chills, blurry vision, double vision, loss of vision, chest pain, difficulty breathing, shortness of breath, back pain, night sweats, pain with urination, increased urinary frequency, increased urinary urgency, blood in her urine or stool, syncope or a near syncopal episode, recent trauma or falls, bowel incontinence, bladder incontinence, or any other complaints at this time. Relieving factors: none Exacerbating factors: none Associated symptoms: denies other symptoms Treatments prior to arrival: none Related Data Home Medications ?Medication ?Instructions ?Recorded ?Confirmed albuterol sulfate 90 mcg/actuation 2 puff inhalation Q4-6H PRN 04/30/23 02/05/24 aerosol inhaler (Ventolin HFA) Shortness Of Breath Or Wheezing sertraline 100 mg tablet 200 mg PO DAILY 04/30/23 02/05/24 tiotropium bromide 18 mcg capsule 1 cap inhalation DAILY 04/30/23 02/05/24 with inhalation device (Spiriva with HandiHaler) losartan 50 mg tablet 100 mg PO DAILY 06/21/23 02/05/24 Previous Rx's ?Medication ?Instructions ?Recorded amlodipine 5 mg tablet 5 mg PO BEDTIME #30 tabs 05/28/23 ipratropium 0.5 mg-albuterol 3 mg 3 ml inhalation TID #270 mL 05/28/23 (2.5 mg base)/3 mL nebulization soln nebulizers #1 ea 05/28/23 varenicline 0.5 mg (11)-1 mg (42) See Rx Instructions .Route 05/28/23 tablets in a dose pack (Chantix .COMPLEX #53 ea Starting Month Box) prednisone 5 mg tablet 5 mg PO DAILY 30 days #30 tabs 06/08/23 quetiapine 50 mg tablet 50 mg PO BID 90 days #180 tabs 08/05/23 folic acid 1 mg tablet 1 mg PO DAILY #90 tabs 09/21/23 isosorbide mononitrate 30 mg 30 mg PO DAILY 90 days #90 tabs 10/05/23 tablet,extended release 24 hr furosemide 40 mg tablet (Lasix) 40 mg PO DAILY 90 days #90 tabs 11/18/23 metformin 500 mg tablet 500 mg PO DAILY 90 days #90 tabs 11/18/23 montelukast 10 mg tablet 10 mg PO BEDTIME #30 tabs 11/18/23 Allergies Allergy/AdvReac Type Severity Reaction Status Date / Time nicotine [Nicotine] Allergy Mild ITCHING Verified 02/05/24 11:02 WITH THE PATCHES topiramate Allergy Mild inadequealte Verified 02/05/24 11:02 response Review of Systems 2 Constitutional: Constitutional: Reports no additional constitutional complaints, Denies chills, Denies fever(s) and Denies night sweats Eyes: Eyes: Reports no additional eye complaints, Denies blurry vision, Denies change in vision, Denies diplopia, Denies eye discharge, Denies loss of vision and Denies eye pain ENT: Denies dizziness Cardiovascular: Cardiovascular: Reports no additional cardiovascular complaints, Denies chest pain, Denies lightheadedness, Denies Loss of Consciousness and Denies dyspnea Respiratory: Respiratory: Reports no additional respiratory complaints and Denies dyspnea Comments: on chronic oxygenation Gastrointestinal: Gastrointestinal: Reports no additional gastrointestinal complaints, Denies abdominal pain, Denies melena, Denies hematochezia, Denies change in bowel habits and Denies change in stool character Genitourinary: Genitourinary: Denies hematuria, Denies urinary frequency, Denies dysuria, Denies urinary incontinence, Denies urinary hesitancy and Denies urinary urgency Musculoskeletal: Musculoskeletal: Reports no additional musculoskeletal complaints, Denies numbness and Denies tingling Neurologic: Denies dizziness, Denies loss of vision, Denies numbness and Denies tingling Psychiatric: Psychiatric: Reports depression, Denies homicidal ideation and Denies suicidal ideation Endocrine: Endocrine: Reports no additional endocrine complaints Hematologic/Lymphatic: Hematologic/Lymphatic: Reports no additional hematologic/lymphatic complaints Allergic/Immunologic: Allergic/Immunologic: Reports no additional allergic/immunologic complaints [facility] Past Medical History Attestation statement: The following information was validated with the patient. Source: old records reviewed and nursing notes reviewed Medical History Influenza A Asthma with exacerbation Hypoglycemia associated with type 2 diabetes mellitus HTN (hypertension) Acute hypoxic respiratory failure CHF (congestive heart failure) NSTEMI (non-ST elevated myocardial infarction) Hypoxic respiratory failure Chronic lung disease Congestive heart failure Mild recurrent major depression Hospital discharge follow-up Severe chronic obstructive pulmonary disease Diabetes Mitral regurgitation Chest pain Lumbar degenerative disc disease Right lower lobe pneumonitis Congestive heart failure Acute and chronic respiratory failure with hypoxia Respiratory failure with hypoxia and hypercapnia Atelectasis, right Hypertensive emergency Pulmonary hypertension Osteoporosis Essential hypertension Supraventricular tachycardia Nonischemic cardiomyopathy Non-rheumatic mitral regurgitation Tobacco abuse Depression Anxiety Chronic respiratory failure HFrEF (heart failure with reduced ejection fraction) KELLIE (obstructive sleep apnea) HLD (hyperlipidemia) Surgical History H/O hysterectomy for benign disease History of total abdominal hysterectomy Bilateral ankle fractures Family History Family History Father No problems noted. 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 home services: Yes ([facility] 1 hr daily) Unable to assess alcohol history related to: Unable to respond Alcohol intake: never Patient Tobacco Use Status: Current someday Tobacco user Tobacco use type: Cigarette Cigarettes Per Day: 5 Years Smoked: 50 +/- e-Cigarette/Vaping Use: Never Used Second Hand Smoke Exposure: No Advance Directives: Yes Advance Directives on File: Yes Advance Directives Date on File: 05/18/23 Do you have a plan to hurt others: No Plan service: No Current occupational status: disabled Cognitive needs: Yes Hearing needs: No Vision needs: No Physical Exam ED Vital Signs: Vital Signs - 24 hr 02/05/24 11:00 02/05/24 13:08 Temperature 97.5 F 97.0 F Pulse Rate 76 90 Respiratory Rate 18 18 Blood Pressure 147/94 H 132/88 Pulse Oximetry 93 91 L Oxygen Delivery Method Nasal Cannula Nasal Cannula Oxygen Flow Rate 4 BMI result Body Mass Index 25.0 Const General: cooperative, no acute distress, alert and awake Nutritional Appearance: well nourished Orientation/consciousness: patient oriented x3 Limitations: no limitations HENMT Head: Yes normal to inspection and Yes atraumatic Ears: hearing grossly normal bilaterally and external ears normal General nose exam: Normal external nose present, no nasal discharge noted and no epistaxis Face and sinus: Yes normal facial exam, No abrasion and No laceration Mouth: Normal oral and palatal mucosa present, no drooling and no muffled voice Eyes General: appearance normal, both eyes and all related structures Periorbital: periorbital findings normal Eyelids: Yes eyelids normal Conjunctivae: conjunctivae normal Pupils: Equal, round and reactive pupils present EOM: EOMs intact bilaterally Neck Neck: Yes normal visual inspection, Yes full ROM and Yes no lymphadenopathy Chest Chest palpation & inspection: normal inspection of the chest Resp Other: on chronic oxygenation Effort & Inspection: normal respiratory effort and able to speak in complete sentences GI Inspection: Yes normal to inspection Neuro General: patient oriented x3 and moves all extremities Cranial nerves: Yes Equal, round and reactive pupils present Cognition (Neuro): normal cognition Extrem General: Yes normal to inspection, Yes full ROM and Yes capillary refill normal Psych Appearance: grossly normal Mental Status: mental status grossly normal Affect: normal affect Attitude: cooperative Thought process: Normal thought process present Thought content: Normal thought content present Insight: Good insight present (Psych) Medical Decision Making Medical Decision Making MDM Narrative: Patient is a 63 year old assigned female at with a history of DM, CHF, HTN, COPD on chronic oxygenation, and depression presenting to the emergency department today with increased depression. Patient's physical exam was as noted in the physical exam portion of this note. I explained my physical exam findings to the patient. I answered all questions asked by the patient. Patient's mental health counselor came into the department and was at the patient's bed side. Together, they created a safety contract that the patient signed (as pictured below). Patient's counselor states she feels comfortable with the patient being discharged home and I agree. I stressed the importance of the patient taking her medication as directed (either prescribed or as the over the counter packaging recommends). I stressed the importance of the patient following up with her primary care provider. I stressed the importance of the patient returning to the emergency department immediately if she were to develop any thoughts of hurting herself, thoughts of hurting others, dizziness, shortness of breath, difficulty breathing, chest pain, blurry vision, loss of vision, nausea, vomiting, abdominal pain, fever, chills, back pain, or any other complaints. Patient verbalized agreement and understanding with this treatment plan and discharge. Differential Diagnosis Differential Diagnoses: The differential diagnosis associated with the presentation includes Depression Admission/Observation Consideration of admission/observation: Escalation of care including admission/observation considered Patient would have been admitted to the hospital had her work up had any findings where hospital admission was appropriate and her clinical presentation warranted hospital admission. Discharge Plan Discharge Clinical Impression: Depression Patient Disposition: Home, Self-Care Instructions: Depression (DC) Additional Instructions: Follow up with your primary care provider. Return to the emergency department immediately if your symptoms worsen or if you develop any dizziness, shortness of breath, difficulty breathing, chest pain, blurry vision, loss of vision, nausea, vomiting, abdominal pain, fever, chills, back pain, or any other complaints. Epifanio?seguimiento?con benjamin m?dico de atenci?n primaria. Acuda inmediatamente al servicio de urgencias si ivonne s?ntomas empeoran o si presenta falta de aliento, dificultad para respirar, dolor tor?cico, mareos, aturdimiento, dolor de espalda, dolor abdominal, fiebre, escalofr?os o cualquier otro s?ntoma. [facility] ([facility]) at [facility]: [address] [place] [id number] Walk in hours from 10am - 12pm Open from 10am - 12pm [facility]: [address] [place] [address] Walk in hours from 10am - 12pm Open 24/11 [facility]: [address] [place] [address] [id number] [place] [id number] Hours: M-F 8am to 8pm Thursday and Thursday 9am to 5pm Prescriptions: No Action prednisone 5 mg tablet 5 mg PO DAILY 30 Days Qty: 30 2RF quetiapine 50 mg tablet 50 mg PO BID 90 Days Qty: 180 1RF folic acid 1 mg tablet 1 mg PO DAILY Qty: 90 1RF isosorbide mononitrate 30 mg tablet extended release 24 hr 30 mg PO DAILY 90 Days Qty: 90 3RF furosemide [Lasix] 40 mg tablet 40 mg PO DAILY 90 Days Qty: 90 1RF montelukast 10 mg tablet 10 mg PO BEDTIME Qty: 30 1RF metformin 500 mg tablet 500 mg PO DAILY 90 Days Qty: 90 1RF sertraline 100 mg tablet 200 mg PO DAILY tiotropium bromide [Spiriva with HandiHaler] 18 mcg capsule, w/inhalation device 1 cap inhalation DAILY albuterol sulfate [Ventolin HFA] 90 mcg/actuation HFA aerosol inhaler 2 puff inhalation Q4-6H PRN (Reason: Shortness Of Breath Or Wheezing) amlodipine 5 mg Tablet 5 mg PO BEDTIME Qty: 30 0RF Protocol: Hold for SBP< HOLD for SBP < : 90 (DME) nebulizers Misc See Rx Instructions .Route Qty: 1 0RF Rx Instructions: As directed ipratropium-albuterol 0.5 mg-3 mg(2.5 mg base)/3 mL Solution For Nebulization 3 ml inhalation TID Qty: 270 0RF varenicline [Chantix Starting Month Box] 0.5 mg (11)- 1 mg (42) tablets,dose pack See Rx Instructions .ROUTE .COMPLEX Qty: 53 0RF Rx Instructions: 0.5 mg bid for 4 days 1 mg bid for 12 more weeks losartan 50 mg tablet 100 mg PO DAILY Referrals: Analisa Carr MD [Primary Care Provider] - Interventions: [place]-Suicide Risk Severity Scale Last Done: 02/05/24 13:04 ED Discharge Assessment Last Done: 02/05/24 13:08 Discharge Date/Time: 02/05/24 13:09 Print Language: Kiswahili
--- NOTE | 2024-02-05 12:31 | PC.NURSE ---
Patients counselor has arrived spoke to Ayde GARAY. Her counselor will assess and speak to Ayde GARAY once finished with assessment.
[2024-02-05 13:08] VITALS: BP 132/88; PULSE 90; RESP 18; TEMP 36.1; O2SAT 91
== END 2024-02-05 13:09 | disposition home or self-care (01) ==
PROVIDERS: Emergency Provider Student in an Organized Health Care Education/Training Program; PCP Internal Medicine
DX: F32.A Depression, unspecified (principal); E11.9 Type 2 diabetes mellitus without complications; I10 Essential (primary) hypertension; J44.9 Chronic obstructive pulmonary disease, unspecified; Z79.899 Other long term (current) drug therapy; F17.210 Nicotine dependence, cigarettes, uncomplicated; Z79.84 Long term (current) use of oral hypoglycemic drugs
CPT/HCPCS: 99283; 99285

== ENCOUNTER 2024-04-07 12:41 | Outpatient (AMB) | payer MEDICAID, SELFPAY ==
[2024-04-07 12:48] VITALS: BP 118/58; PULSE 91; BMI 24.9
--- NOTE | 2024-04-07 12:48 | MHC.OFFVIS ---
Vital Signs 04/07/24 12:48 Height 4 ft 11 in Weight 123 lb 7.342 oz BMI 24.9 BP 118/58 L Blood Pressure Location Lt brachial Position Sitting Pulse 91 Intake Visit Reasons: * 4-8 wk f/up per dc Broadcast Transmitter Operator Required: Yes Broadcast Transmitter Operator Name: Cornelius [id number] Accompanied by: Self / Same As Patient Allergies nicotine [Nicotine] Allergy (Mild, Verified 02/05/24 11:02) ITCHING WITH THE PATCHES topiramate Allergy (Mild, Verified 02/05/24 11:02) inadequealte response Medication List - Last Reconciled 04/07/24 by NUPUR Rojas albuterol sulfate 90 mcg/actuation (Ventolin HFA) 2 puffs inhalation Q4-6H PRN amlodipine 5 mg See Protocol PO BEDTIME folic acid 1 mg PO DAILY furosemide (Lasix) 40 mg PO DAILY 90 days ipratropium-albuterol 0.5 mg-3 mg(2.5 mg base)/3 mL 3 mL inhalation TID isosorbide mononitrate ER 30 mg PO DAILY 90 days losartan 100 mg PO DAILY metformin 500 mg PO DAILY 90 days montelukast 10 mg PO BEDTIME nebulizers As directed prednisone 5 mg PO DAILY 30 days quetiapine 50 mg PO BID 90 days sertraline 200 mg PO DAILY tiotropium bromide (Spiriva with HandiHaler) 1 cap inhalation DAILY HPI HPI * 4-8 wk f/up per dc: Details: Paola is a 63-year-old female with past medical history of hypertension, diabetes, COPD, nonischemic cardiomyopathy who had reported not taking her medications and thoughts of hopelessness on last visit. She was brought to the emergency room for further evaluation. She now presents for follow-up. Today she reports that she has been taking her medications as directed and it would be stupid of 'her' not to . She is not happy today and wonders why she has to be seen in Cardiology again. She says she has not had any chest discomfort at rest or with activity. She has chronic issues with shortness of breath with exertion and wears her oxygen continually. No palpitations, lightheadedness, PND, orthopnea. She admits to being sedentary and uses her willing walker at home. She tells me that she has food stamps but is not able to go shopping due to her health condition. She lives alone and says she has no family in the area and no social support. She does have visiting nurses but she does not feel this is helpful. Certified painter decorator used. [facility] Medical History Influenza A Asthma with exacerbation Hypoglycemia associated with type 2 diabetes mellitus HTN (hypertension) Acute hypoxic respiratory failure CHF (congestive heart failure) NSTEMI (non-ST elevated myocardial infarction) Hypoxic respiratory failure Chronic lung disease Congestive heart failure Mild recurrent major depression Hospital discharge follow-up Severe chronic obstructive pulmonary disease Diabetes Mitral regurgitation Chest pain Lumbar degenerative disc disease Right lower lobe pneumonitis Congestive heart failure Acute and chronic respiratory failure with hypoxia Respiratory failure with hypoxia and hypercapnia Atelectasis, right Hypertensive emergency Pulmonary hypertension Osteoporosis Essential hypertension Supraventricular tachycardia Nonischemic cardiomyopathy Non-rheumatic mitral regurgitation Tobacco abuse Depression Anxiety Chronic respiratory failure HFrEF (heart failure with reduced ejection fraction) KELLIE (obstructive sleep apnea) HLD (hyperlipidemia) Surgical History H/O hysterectomy for benign disease History of total abdominal hysterectomy Bilateral ankle fractures Family History Father No problems noted. Mother Liver cancer Hypertension Social History Household Members: None Household Members Other:: 1 Housing: Apartment Do you presently have visiting nurse or other home services: Yes ([facility] 1 hr daily) Unable to assess alcohol history related to: Unable to respond Alcohol intake: never Patient Tobacco Use Status: Current someday Tobacco user Tobacco use type: Cigarette Cigarettes Per Day: 5 Years Smoked: 50 +/- e-Cigarette/Vaping Use: Never Used Second Hand Smoke Exposure: No Advance Directives Date on File: 05/18/23 service: No Current occupational status: disabled Cognitive needs: Yes Hearing needs: No Vision needs: No Review of Systems Const All systems reviewed & are unremarkable except as noted in HPI and below Denies chills, Denies fatigue, Denies fever(s), Denies weight gain and Denies weight loss ENT Denies dizziness Card Details: wears O2 continually with nasal cannula Denies chest pain, Denies leg edema, Denies lightheadedness, Denies palpitations, Reports dyspnea, Reports dyspnea on exertion, Denies orthopnea and Denies other Resp Denies cough, Reports dyspnea and Reports dyspnea on exertion GI Denies hematochezia and Denies change in stool character Musc Details: ambulates slowly with walker Denies muscle weakness, Denies numbness, Denies radiating pain into limb and Denies tingling Neuro Denies dizziness, Denies numbness and Denies tingling Endo Denies fatigue and Denies palpitations Physical Exam Vital Signs: Last Vital Signs Pulse 91 04/07/24 12:48 BP 118/58 L 04/07/24 12:48 BMI result Body Mass Index 24.9 Const General: cooperative, healthy appearing, comfortable and no acute distress Orientation/consciousness: patient oriented x3 Neck Neck: Yes normal visual inspection Resp Effort & Inspection: normal respiratory effort Auscultation: clear to auscultation bilaterally, no rales, no rhonchi and no wheezes Cardio Jugular venous distension: no JVD Rate: regular rate Heart sounds: S1 normal heart sound present, S2 normal heart sound present, no murmurs and no rubs Neuro General: patient oriented x3 Extrem General: Yes normal to inspection Psych Appearance: grossly normal Mental Status: mental status grossly normal Speech and movement: Normal speech and movement present Office Procedures EKG Details: Today, read by me SR, RBBB, PAC and 4 beat atrial run, T wave abn inferiorly, rate 115, JT index 83.8 [id number], Complete Assessment & Plan Assessment & Plan (1) Congestive heart failure: Code(s): I50.9 - Heart failure, unspecified Category: Medical Qualifiers: Heart failure chronicity: acute on chronic Heart failure type: unspecified Qualified Code(s): I50.9 - Heart failure, unspecified Plan: History of nonischemic cardiomyopathy with Congestive heart failure in past. Last echocardiogram done 06/09/2023 showed EF 51%, severe LVH, basal inferior and inferior septal akinetic, [id number] MR. During that admission she did have elevated troponin levels and was treated for mild Congestive heart failure. Stress test was previously ordered however she did not complete it. She now has stress test scheduled for 04/25/2024. She currently has no reports of chest discomfort. She does have chronic shortness of breath and wears oxygen 4 L continually. She previously was not compliant with her medications but now tells me she has been taking all her meds as directed. She does not appear fluid overloaded on exam. Will have her continue current med management including Lasix, losartan, amlodipine, isosorbide. Signs and symptoms of heart failure reviewed with her. Cardiology follow-up 3 months, sooner if needed. (2) Elevated troponin: Code(s): R79.89 - Other specified abnormal findings of blood chemistry Category: Medical Plan: During hospital admission, May 2023, she was evaluated by Dr. Germain for elevated troponins consistent with secondary type NSTEMI. An outpatient dobutamine nuclear stress test was ordered following that admission however not completed by patient. Stress test now scheduled as above. (3) NSTEMI (non-ST elevated myocardial infarction): Code(s): I21.4 - Non-ST elevation (NSTEMI) myocardial infarction Category: Medical Plan: As above (4) Mitral regurgitation: Code(s): I34.0 - Nonrheumatic mitral (valve) insufficiency Category: Medical Plan: Prior echo had shown moderate to severe mitral regurgitation. Most recent echo shows [id number] MR. No clear signs of fluid overload on exam. (5) Essential hypertension: Code(s): I10 - Essential (primary) hypertension Category: Medical Plan: Normal range today. Says she is taking her medications. (6) COPD (chronic obstructive pulmonary disease): Code(s): J44.9 - Chronic obstructive pulmonary disease, unspecified Category: Medical Qualifiers: COPD type: emphysema Emphysema type: centrilobular Qualified Code(s): J43.2 - Centrilobular emphysema Plan: Follows with pulmonology. Wears oxygen continually. Tells me she has been having to increase her dose to shortness of breath. (7) Support system deficit: Code(s): Z65.8 - Other specified problems related to psychosocial circumstances Category: Social Hx Plan: She tells me she has no family members that live locally. She has no social support. Apparently she does have VNA. She says she has food stamps but not able to go shopping for food. She currently reports taking all her meds but in the past has says she stopped them and she felt hopeless. On last visit she was sent to the emergency room for evaluation and subsequently discharged. At this time I will send a referral to our nurse navigator to ensure that she does have medical and social support services established in the home. Plan Time spent on chart review, documentation, interview, assessment, orders Orders: Referrals Nurse Navigator Referral Z65.8 - Other specified problems related to psychosocial circumstances Medications: New diltiazem HCl CD Stop Amlodipine Start Diltiazem - to help reduce heart palpitations 120 mg PO DAILY 30 caps 5RF Discontinued amlodipine Discontinued Reason: Doctor's Order 5 mg See Protocol PO BEDTIME 30 tabs 0RF Coding Level of Care Code Est Pt Level 4 (90360) Complex EM visit Add On G2211 Diagnoses Congestive heart failure I50.9 Heart failure chronicity: acute on chronic Heart failure type: unspecified Elevated troponin R79.89 NSTEMI (non-ST elevated myocardial infarction) I21.4 Mitral regurgitation I34.0 Essential hypertension I10 Centrilobular emphysema J43.2 COPD type: emphysema Emphysema type: centrilobular Support system deficit Z65.8 CPT Codes EKG - CPT: 98959-[id number], Complete ([id number]) Time Spent (min) 36
--- OUTSIDE RECORDS SUMMARY | 2024-04-13 02:11 | XMS_ITS | Clinical Summary ---
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 ([facility] [id number] MEDICAID [place] [id number] Problems Condition Name Condition Details Condition Category Status Onset Date Resolution Date Last Treatment Date Treating Clinician Comments RESPIRATORY FAILURE, UNSPECIFIED WITH HYPOXIA Active 05-28 00:00: 00 UNSPECIFIED SYSTOLIC (CONGESTIVE) HEART FAILURE Active 07-02 00:00: 00 DEPRESSION, UNSPECIFIED Active 07-02 00:00: 00 TYPE 2 DIABETES MELLITUS WITHOUT COMPLICATION S Active 07-02 00:00: 00 Allergies, Adverse Reactions, Alerts Allergy Name Allergy Type Status Severity Reaction(s) Onset Date Inactive Date Treating Clinician Comments NKA Propensity to adverse reactions Active 2023-06 03:42:3 7 Medications Ordered Medication Name Filled Medication Name Start Date Stop Date Current Medication? Ordering Clinician Indication Dosage Frequency Signature (SIG) Comments Components ipratropium 0.5 mg-albutero l 3 mg (2.5 mg base)/3 mL nebulizatio n soln 2019-05 00:00: 00 02-26 23:59 :00 No [id number] Per instruc tions 4 TIMES DAILY Per instructio ns 4 TIMES DAILY (route: inhalation ) Med Classific ation: Respirato ry Therapy Agents quetiapine 50 mg tablet 2019-05 00:00: 00 02-26 23:59 :00 No [id number] 50 mg DOS VECES AL D 50 mg DOS VECES AL D (route: oral) Med Classific ation: Central Nervous System Agents baclofen 10 mg tablet 05-11 00:00: 00 02-26 23:59 :00 No [id number] 10 mg 3 TIMES DAILY 10 mg 3 TIMES DAILY (route: oral) Med Classific ation: Locomotor System carvedilol 12.5 mg tablet 2019-05 00:00: 00 05-18 23:59 :00 No [id number] Per instruc tions DOS VECES AL D Per instructio ns DOS VECES AL D (route: oral) Med Classific ation: Cardiovas cular Therapy Agents simvastatin 40 mg tablet 2019-05 00:00: 00 02-26 23:59 :00 No [id number] Per instruc tions TOME ROSEANN TABLETA TODOS LOS D Per instructio ns TOME ROSEANN TABLETA TODOS LOS D (route: oral) Med Classific ation: Cardiovas cular Therapy Agents meclizine 25 mg tablet 05-10 00:00: 00 02-26 23:59 :00 No [id number] 25 mg DAILY 25 mg DAILY (route: oral) Med Classific ation: Gastroint estinal Therapy Agents oxycodone 5 mg tablet 05-09 00:00: 00 05-23 23:59 :00 No [id number] 1 mg DOS VECES AL D 1 mg DOS VECES AL D (route: oral) Med Classific ation: Analgesic , Anti-infl ammatory or Antipyret ic trazodone 50 mg tablet 05-10 00:00: 00 02-26 23:59 :00 No [id number] 2 tablet AT BEDTIME NEEDED 2 tablet AT BEDTIME NEEDED (route: oral) Med Classific ation: Central Nervous System Agents carvedilol 6.25 mg tablet 05-18 00:00: 00 02-26 23:59 :00 No [id number] 1 tablet 2 TIMES DAILY 1 tablet 2 TIMES DAILY (route: oral) Med Classific ation: Cardiovas cular Therapy Agents Combivent Respimat 20 mcg-100 mcg/actuati on solution for inhalation 05-18 00:00: 00 02-26 23:59 :00 No [id number] 1 puff EVERY 6 HOURS 1 puff EVERY 6 HOURS (route: inhalation ) Med Classific ation: Respirato ry Therapy Agents lisinopril 5 mg tablet 05-18 00:00: 00 02-26 23:59 :00 No [id number] 5 mg DAILY 5 mg DAILY (route: oral) Med Classific ation: Cardiovas cular Therapy Agents montelukast 10 mg tablet 05-18 00:00: 00 02-26 23:59 :00 No [id number] 1 tablet BEDTIME 1 tablet BEDTIME (route: oral) Med Classific ation: Respirato ry Therapy Agents omeprazole 20 mg capsule,del ayed release 05-18 00:00: 00 02-26 23:59 :00 No [id number] 1 capsule DAILY 1 capsule DAILY (route: oral) Med Classific ation: Gastroint estinal Therapy Agents sertraline 100 mg tablet 05-18 00:00: 00 02-26 23:59 :00 No [id number] 2 tablet DAILY 2 tablet DAILY (route: oral) Med Classific ation: Central Nervous System Agents O2 - OXYGEN 05-18 00:00: 00 02-26 23:59 :00 No [id number] 4 Liter O2 - CONTINUOUS 4 Liter O2 - CONTINUOUS (route: Oxygen) Alternate Route: O2 - NASAL CANNULA. Med Classific ation: Medical Oxygen tramadol 50 mg tablet 05-21 00:00: 00 02-26 23:59 :00 No [id number] 1 tablet 2 TIMES DAILY 1 tablet 2 TIMES DAILY (route: oral) Med Classific ation: Analgesic , Anti-infl ammatory or Antipyret ic cefuroxime axetil 250 mg tablet 06-20 00:00: 00 02-26 23:59 :00 No [id number] 2 tablet EVERY 12 HOURS 2 tablet EVERY 12 HOURS (route: oral) Med Classific ation: Anti-Infe ctive Agents prednisone 20 mg tablet - 00:00: 00 02-26 23:59 :00 No [id number] 2 tablet DAILY 2 tablet DAILY (route: oral) Med Classific ation: Endocrine Combivent Respimat 20 mcg-100 mcg/actuati on solution for inhalation 2020-05 0- 00:00: 00 05-17 23:59 :00 No [id number] 1 puff 4 TIMES DAILY 1 puff 4 TIMES DAILY (route: inhalation ) Med Classific ation: Respirato ry Therapy Agents montelukast 10 mg tablet 2020-05 0-24 00:00: 00 05-17 23:59 :00 No [id number] 10 mg DAILY 10 mg DAILY (route: oral) Med Classific ation: Respirato ry Therapy Agents isosorbide mononitrate ER 30 mg tablet,exte nded release 24 hr 2020-05 0- 00:00: 00 05-17 23:59 :00 No [id number] 30 mg DAILY 30 mg DAILY (route: oral) Med Classific ation: Cardiovas cular Therapy Agents losartan 50 mg tablet - 00:00: 00 03-14 23:59 :00 No [id number] 50 mg DAILY 50 mg DAILY (route: oral) Med Classific ation: Cardiovas cular Therapy Agents furosemide 40 mg tablet 01-31 00:00: 00 05-08 23:59 :00 No [id number] 40 mg 2 TIMES DAILY 40 mg 2 TIMES DAILY (route: oral) Med Classific ation: Cardiovas cular Therapy Agents trazodone 50 mg tablet 01-28 00:00: 00 05-17 23:59 :00 No [id number] 50 mg BEDTIME 50 mg BEDTIME (route: oral) Med Classific ation: Central Nervous System Agents omeprazole 20 mg capsule,del ayed release 2020-05 0-06 00:00: 00 07-11 23:59 :00 No [id number] 20 capsule DAILY 20 capsule DAILY (route: oral) Med Classific ation: Gastroint estinal Therapy Agents prednisone 10 mg tablet 2020-05 0-21 00:00: 00 04-29 23:59 :00 No [id number] 5 mg DAILY 5 mg DAILY (route: oral) Med Classific ation: Endocrine sertraline 100 mg tablet 2020-05 00:00: 00 05-17 23:59 :00 No [id number] 100 mg DAILY 100 mg DAILY (route: oral) Med Classific ation: Central Nervous System Agents losartan 100 mg tablet 2020-05 00:00: 00 07-11 23:59 :00 No [id number] 100 mg DAILY 100 mg DAILY (route: oral) Med Classific ation: Cardiovas cular Therapy Agents quetiapine 50 mg tablet 01-29 00:00: 00 05-17 23:59 :00 No [id number] 50 mg 2 TIMES DAILY 50 mg 2 TIMES DAILY (route: oral) Med Classific ation: Central Nervous System Agents montelukast 10 mg tablet 2020-05 00:00: 00 03-14 23:59 :00 No [id number] 10 mg DAILY 10 mg DAILY (route: oral) Med Classific ation: Respirato ry Therapy Agents amlodipine 5 mg tablet 2020-05 00:00: 00 04-29 23:59 :00 No [id number] 5 mg DAILY 5 mg DAILY (route: oral) Med Classific ation: Cardiovas cular Therapy Agents carvedilol 6.25 mg tablet 2020-05 00:00: 00 07-11 23:59 :00 No [id number] 6.25 mg 2 TIMES DAILY 6.25 mg 2 TIMES DAILY (route: oral) Med Classific ation: Cardiovas cular Therapy Agents isosorbide mononitrate ER 30 mg tablet,exte nded release 24 hr 01-27 00:00: 00 03-14 23:59 :00 No [id number] 30 mg DAILY 30 mg DAILY (route: oral) Med Classific ation: Cardiovas cular Therapy Agents spironolact one 25 mg tablet 2020-05 00:00: 00 07-11 23:59 :00 No [id number] 25 mg DAILY 25 mg DAILY (route: oral) Med Classific ation: Cardiovas cular Therapy Agents sertraline 100 mg tablet 2020-0515 00:00: 00 03-14 23:59 :00 No [id number] 100 mg DAILY 100 mg DAILY (route: oral) Med Classific ation: Central Nervous System Agents furosemide 40 mg tablet 2020-05 0-24 00:00: 00 03-14 23:59 :00 No [id number] 40 mg 2 TIMES DAILY 40 mg 2 TIMES DAILY (route: oral) Med Classific ation: Cardiovas cular Therapy Agents folic acid 1 mg tablet 2020-05 0-04 00:00: 00 05-17 23:59 :00 No [id number] 1 mg DAILY 1 mg DAILY (route: oral) Med Classific ation: Electroly te Balance-N utritiona l Products amlodipine 10 mg tablet 2020-05 2- 00:00: 00 07-11 23:59 :00 No [id number] 1 tablet DAILY 1 tablet DAILY (route: oral) Med Classific ation: Cardiovas cular Therapy Agents azithromyci n 500 mg tablet 2020-05 2- 00:00: 00 05-02 23:59 :00 No [id number] 1 tablet DAILY 1 tablet DAILY (route: oral) Med Classific ation: Anti-Infe ctive Agents prednisone 20 mg tablet 2020-05 2- 00:00: 00 05-03 23:59 :00 No [id number] 1 tablet DAILY 1 tablet DAILY (route: oral) Med Classific ation: Endocrine furosemide 40 mg tablet 1-08 00:00: 00 05-17 23:59 :00 No [id number] 1 tablet DAILY 1 tablet DAILY (route: oral) Med Classific ation: Cardiovas cular Therapy Agents losartan 50 mg tablet 3-10 00:00: 00 05-17 23:59 :00 No [id number] 1 tablet DAILY 1 tablet DAILY (route: oral) Med Classific ation: Cardiovas cular Therapy Agents azithromyci n 250 mg tablet -14 00:00: 00 05-21 00:00 :00 No [id number] Per instruc tions Per instructio ns (route: oral) Med Classific ation: Anti-Infe ctive Agents ipratropium 0.5 mg-albutero l 3 mg (2.5 mg base)/3 mL nebulizatio n soln 1-14 00:00: 00 05-21 00:00 :00 No [id number] Per instruc tions Per instructio ns (route: inhalation ) Med Classific ation: Respirato ry Therapy Agents carvedilol 25 mg tablet 05-21 00:00: 00 Yes 1 tablet 2 TIMES DAILY 1 tablet 2 TIMES DAILY (route: oral) Med Classific ation: Cardiovas cular Therapy Agents losartan 50 mg tablet 05-21 00:00: 00 Yes 2 tablet DAILY 2 tablet DAILY (route: oral) Med Classific ation: Cardiovas cular Therapy Agents spironolact one 25 mg tablet 05-21 00:00: 00 Yes [id number] 1 tablet DAILY 1 tablet DAILY (route: oral) Med Classific ation: Cardiovas cular Therapy Agents losartan 25 mg tablet 2022-0530 00:00: 00 05-21 00:00 :00 No [id number] Per instruc tions TOME ROSEANN TABLETA TODOS LOS D Per instructio ns TOME ROSEANN TABLETA TODOS LOS D (route: oral) Med Classific ation: Cardiovas cular Therapy Agents quetiapine 50 mg tablet 05-21 00:00: 00 Yes 1 tablet 2 TIMES DAILY 1 tablet 2 TIMES DAILY (route: oral) Med Classific ation: Central Nervous System Agents sertraline 100 mg tablet 05-21 00:00: 00 Yes 2 tablet DAILY 2 tablet DAILY (route: oral) Med Classific ation: Central Nervous System Agents Ventolin HFA 90 mcg/actuati on aerosol inhaler 05-21 00:00: 00 Yes Per instruc tions DAILY Per instructio ns DAILY (route: inhalation ) Med Classific ation: Respirato ry Therapy Agents Spiriva with HandiHaler 18 mcg and inhalation capsules 05-21 00:00: 00 Yes 1 inhalat ion DAILY 1 inhalation DAILY (route: inhalation ) Med Classific ation: Respirato ry Therapy Agents trazodone 50 mg tablet 05-21 00:00: 00 Yes 1 tablet AT BEDTIME NEEDED 1 tablet AT BEDTIME NEEDED (route: oral) Med Classific ation: Central Nervous System Agents fluticasone furoate 100 mcg-vilante rol 25 mcg/dose inhalation powder 05-21 00:00: 00 Yes 1 inhalat ion DAILY 1 inhalation DAILY (route: inhalation ) Med Classific ation: Respirato ry Therapy Agents folic acid 1 mg tablet 05-21 00:00: 00 Yes 1 tablet DAILY 1 tablet DAILY (route: oral) Med Classific ation: Electroly te Balance-N utritiona l Products furosemide 40 mg tablet 05-21 00:00: 00 Yes 1 tablet DAILY 1 tablet DAILY (route: oral) Med Classific ation: Cardiovas cular Therapy Agents guaifenesin ER 600 mg tablet, extended release 12 hr 05-21 00:00: 00 Yes 1 tablet 2 TIMES DAILY 1 tablet 2 TIMES DAILY (route: oral) Med Classific ation: Respirato ry Therapy Agents ipratropium 0.5 mg-albutero l 3 mg (2.5 mg base)/3 mL nebulizatio n soln 05-21 00:00: 00 Yes 3 mL 3 TIMES DAILY 3 mL 3 TIMES DAILY (route: inhalation ) Med Classific ation: Respirato ry Therapy Agents metformin 500 mg tablet 05-21 00:00: 00 Yes 1 tablet DAILY 1 tablet DAILY (route: oral) Med Classific ation: Endocrine montelukast 10 mg tablet 05-21 00:00: 00 Yes 1 tablet BEDTIME 1 tablet BEDTIME (route: oral) Med Classific ation: Respirato ry Therapy Agents prednisone 20 mg tablet 05-21 00:00: 00 06-15 23:59 :00 No [id number] 2 tablet DAILY 2 tablet DAILY (route: oral) Med Classific ation: Endocrine carvedilol 25 mg tablet 06-08 00:00: 00 Yes [id number] 1 tablet 2 TIMES DAILY 1 tablet 2 TIMES DAILY (route: oral) Med Classific ation: Cardiovas cular Therapy Agents losartan 50 mg tablet - 00:00: 00 Yes [id number] 2 tablet DAILY 2 tablet DAILY (route: oral) Med Classific ation: Cardiovas cular Therapy Agents quetiapine 50 mg tablet 2- 00:00: 00 Yes [id number] 1 tablet 2 TIMES DAILY 1 tablet 2 TIMES DAILY (route: oral) Med Classific ation: Central Nervous System Agents sertraline 100 mg tablet - 00:00: 00 Yes [id number] 2 tablet DAILY 2 tablet DAILY (route: oral) Med Classific ation: Central Nervous System Agents Ventolin HFA 90 mcg/actuati on aerosol inhaler - 00:00: 00 Yes [id number] Per instruc tions DAILY Per instructio ns DAILY (route: inhalation ) Med Classific ation: Respirato ry Therapy Agents Spiriva with HandiHaler 18 mcg and inhalation capsules - 00:00: 00 Yes [id number] 1 inhalat ion DAILY 1 inhalation DAILY (route: inhalation ) Med Classific ation: Respirato ry Therapy Agents trazodone 50 mg tablet - 00:00: 00 Yes [id number] 1 tablet AT BEDTIME NEEDED 1 tablet AT BEDTIME NEEDED (route: oral) Med Classific ation: Central Nervous System Agents fluticasone furoate 100 mcg-vilante rol 25 mcg/dose inhalation powder - 00:00: 00 Yes [id number] 1 inhalat ion DAILY 1 inhalation DAILY (route: inhalation ) Med Classific ation: Respirato ry Therapy Agents folic acid 1 mg tablet - 00:00: 00 Yes [id number] 1 tablet DAILY 1 tablet DAILY (route: oral) Med Classific ation: Electroly te Balance-N utritiona l Products furosemide 40 mg tablet - 00:00: 00 Yes [id number] 1 tablet DAILY 1 tablet DAILY (route: oral) Med Classific ation: Cardiovas cular Therapy Agents guaifenesin ER 600 mg tablet, extended release 12 hr - 00:00: 00 Yes [id number] 1 tablet 2 TIMES DAILY 1 tablet 2 TIMES DAILY (route: oral) Med Classific ation: Respirato ry Therapy Agents ipratropium 0.5 mg-albutero l 3 mg (2.5 mg base)/3 mL nebulizatio n soln 06-08 00:00: 00 Yes [id number] 3 mL 3 TIMES DAILY 3 mL 3 TIMES DAILY (route: inhalation ) Med Classific ation: Respirato ry Therapy Agents metformin 500 mg tablet 06-08 00:00: 00 Yes [id number] 1 tablet DAILY 1 tablet DAILY (route: oral) Med Classific ation: Endocrine montelukast 10 mg tablet 06-08 00:00: 00 Yes [id number] 1 tablet BEDTIME 1 tablet BEDTIME (route: oral) Med Classific ation: Respirato ry Therapy Agents prednisone 20 mg tablet 06-08 00:00: 00 06-08 23:59 :00 No [id number] 2 tablet DAILY 2 tablet DAILY (route: oral) Med Classific ation: Endocrine prednisone 5 mg tablet 06-08 00:00: 00 Yes [id number] 1 tablet DAILY 1 tablet DAILY (route: oral) Med Classific ation: Endocrine Vital Signs Vital Name Observation Time Observation Value Commen ts Temperature 2023-07-15 17:32:00.000 97.6 [degF] Temperature 2023-07-10 16:01:00.000 97.8 [degF] Temperature 2023-06-15 11:47:00.000 97.9 [degF] Temperature 2023-06-08 14:08:00.000 97.9 [degF] BMI (%) 2023-06-15 11:36:42.000 27 kg/m2 BMI (%) 2023-06-08 13:27:34.000 18 kg/m2 Height 2023-06-15 11:36:06.000 59 [in_us] Height 2023-06-08 13:27:09.000 71 [in_us] Pulse 2023-07-15 17:32:00.000 87 /min Pulse 2023-07-10 16:01:00.000 72 /min Pulse 2023-07-08 13:24:00.000 101 /min Pulse 2023-06-15 11:47:00.000 95 /min Pulse 2023-06-08 14:08:00.000 95 /min O2 Saturation (%) 2023-06-08 14:08:00.000 96 % Respirations 2023-07-15 17:32:00.000 18 /min Respirations 2023-07-10 16:01:00.000 18 /min Respirations 2023-07-08 13:24:00.000 18 /min Respirations 2023-06-15 11:47:00.000 18 /min Respirations 2023-06-08 14:08:00.000 18 /min Weight (lbs) 2023-06-15 11:36:42.000 135 [lb_av] Weight (lbs) 2023-06-08 13:27:34.000 132 [lb_av] Systolic Blood Pressure 2023-07-15 17:32:00.000 136 mm [Hg] Systolic Blood Pressure 2023-07-10 16:01:00.000 136 mm [Hg] Systolic Blood Pressure 2023-06-15 11:47:00.000 144 mm [Hg] Systolic Blood Pressure 2023-06-08 14:08:00.000 165 mm [Hg] Diastolic Blood Pressure 2023-07-15 17:32:00.000 87 mm [Hg] Diastolic Blood Pressure 2023-07-10 16:01:00.000 78 mm [Hg] Diastolic Blood Pressure 2023-06-15 11:47:00.000 79 mm [Hg] Diastolic Blood Pressure 2023-06-08 14:08:00.000 92 mm [Hg] Plan of Treatment Planned Activity Planned Date Details Comments Future Scheduled Test SKILLED NU RSE TO EVALUATE PATIENT, IDENTIFY PRIMARY AND CO-MORBID CONDITIONS CODED PER CODING GUIDELINES, AND DEVELOP PATIENT SPECIFIC PLAN OF CARE THAT INCLUDES PATIENT GOAL FOR HOME HEALTH. [code = SKILLED NURSE TO EVALUATE PATIENT, IDENTIFY PRIMARY AND CO-MORBID CONDITIONS CODED PER CODING GUIDELINES, AND DEVELOP PATIENT SPECIFIC PLAN OF CARE THAT INCLUDES PATIENT GOAL FOR HOME HEALTH.] Future Scheduled Test SKILLED NU RSE WILL MAINTAIN SITUATIONAL AWARENESS FOR SAFETY AND WILL NOTIFY CLINICAL APPRAISER IRRIGATION TAX AND PHYSICIAN/PROVIDER WITH ANY CHANGE IN CONDITION. [code = SKILLED NURSE WILL MAINTAIN SITUATIONAL AWARENESS FOR SAFETY AND WILL NOTIFY CLINICAL APPRAISER IRRIGATION TAX AND PHYSICIAN/PROVIDER WITH ANY CHANGE IN CONDITION.] Future Scheduled Test SKILLED NU RSE TO ASSESS PATIENTS PSYCHOSOCIAL STATUS TO IDENTIFY POTENTIAL ISSUES THAT MAY COMPLICATE THE PROVISION OF THE PLAN OF CARE INCLUDING THE PATIENTS ABILITY TO ACCESS COMMUNITY RESOURCES AND PSYCHOSOCIAL SUPPORT SERVICES. [code = SKILLED NURSE TO ASSESS PATIENTS PSYCHOSOCIAL STATUS TO IDENTIFY POTENTIAL ISSUES THAT MAY COMPLICATE THE PROVISION OF THE PLAN OF CARE INCLUDING THE PATIENTS ABILITY TO ACCESS COMMUNITY RESOURCES AND PSYCHOSOCIAL SUPPORT SERVICES.] Future Scheduled Test SKILLED NU RSE FOR O/A OF RESPIRATORY SYSTEM TO IDENTIFY CHANGES ASSOCIATED WITH EXACERBATION AND TO PROVIDE SKILLED TEACHING ON MANAGEMENT OF RESPIRATORY DISEASE PROCESS. [code = SKILLED NURSE FOR O/A OF RESPIRATORY SYSTEM TO IDENTIFY CHANGES ASSOCIATED WITH EXACERBATION AND TO PROVIDE SKILLED TEACHING ON MANAGEMENT OF RESPIRATORY DISEASE PROCESS.] Future Scheduled Test SKILLED NU RSE TO INSTRUCT PATIENT/CAREGIVER ON COPD TO INCLUDE TEACHING AND SELF-MANAGEMENT RELATED TO COPD DISEASE PROCESS, SIGNS AND SYMPTOMS, AND COMPLICATIONS. [code = SKILLED NURSE TO INSTRUCT PATIENT/CAREGIVER ON COPD TO INCLUDE TEACHING AND SELF-MANAGEMENT RELATED TO COPD DISEASE PROCESS, SIGNS AND SYMPTOMS, AND COMPLICATIONS.] Future Scheduled Test SKILLED NU RSE FOR TEACHING ON ADMINSTRATION OF INHALATION THERAPY AND CARE OF EQUIPMENT [code = SKILLED NURSE FOR TEACHING ON ADMINSTRATION OF INHALATION THERAPY AND CARE OF EQUIPMENT] Future Scheduled Test SKILLED NU RSE TO PROVIDE TEACHING ON SIGNS AND SYMPTOMS AND MANAGEMENT OF HYPERTENSION. [code = SKILLED NURSE TO PROVIDE TEACHING ON SIGNS AND SYMPTOMS AND MANAGEMENT OF HYPERTENSION.] Future Scheduled Test SKILLED NU RSE TO PRE-POUR MEDICATION PER MEDICATION LIST WEEKLY [code = SKILLED NURSE TO PRE-POUR MEDICATION PER MEDICATION LIST WEEKLY ] Future Scheduled Test SKILLED NU RSE FOR O/A AND SKILLED TEACHING RELATED TO MANAGEMENT OF DEPRESSIVE SYMPTOMS AND/OR DEPRESSION. SN TO REPORT SIGNIFICANT CHANGE IN DEPRESSIVE SYMPTOMS TO CLINICAL PROVIDER FOR EARLY INTERVENTION. [code = SKILLED NURSE FOR O/A AND SKILLED TEACHING RELATED TO MANAGEMENT OF DEPRESSIVE SYMPTOMS AND/OR DEPRESSION. SN TO REPORT SIGNIFICANT CHANGE IN DEPRESSIVE SYMPTOMS TO CLINICAL PROVIDER FOR EARLY INTERVENTION.] Future Scheduled Test SKILLED NU RSE FOR O/A AND TEACHING OF ENDOCRINE SYSTEM TO IDENTIFY CHANGES ASSOCIATED WITH EXACERBATION OF DIABETES FOR EARLY INTERVENTION OF COMPLICATIONS. [code = SKILLED NURSE FOR O/A AND TEACHING OF ENDOCRINE SYSTEM TO IDENTIFY CHANGES ASSOCIATED WITH EXACERBATION OF DIABETES FOR EARLY INTERVENTION OF COMPLICATIONS.] Goal 2023-07-20 Patient Goal - NO HOSPITALIZ ATION Goal Provider Goal - A PLAN OF CARE WILL BE ESTABLISHED THAT MEETS PATIENT'S SNF NEEDS AND INCLUDES PATIENT GOAL FOR HOME HEALTH. Goal Provider Goal - PATIENT WILL REMAIN SAFE IN THE COMMUNITY AND WILL BE FREE OF DANGER TO SELF AND OTHERS THROUGHOUT THE CERTIFICATION PERIOD. Goal Provider Goal - PSYCHOSOCIAL NEEDS WILL BE IDENTIFIED AND PLAN IMPLEMENTED TO MINIMIZE RISK THROUGHOUT CERTIFICATION PERIOD. Goal Provider Goal - PATIENT/CAREGIVER WILL VERBALIZE/DEMONSTRATE MANAGEMENT OF RESPIRATORY DISEASE PROCESS. CHANGES IN RESPIRATORY STATUS WILL BE IDENTIFIED AND REPORTED TO PHYSICIAN FOR PROMPT INTERVENTION THROUGHOUT THE CERTIFICATION PERIOD. Goal Provider Goal - PATIENT/CAREGIVER WILL VERBALIZE/DEMONSTRATE KNOWLEDGE AND MANAGEMENT OF COPD BY END OF EPISODE. Goal Provider Goal - PATIENT/CAREGIVER WILL VERBALIZE/DEMONSTRATE INDEPENDENCE WITH ADMINISTRATION OF ORDERED INHALATION THERAPY AND CARE OF EQUIPMENT A RESULT OF SKILLED TEACHING THROUGHOUT THE EPISODE. Goal Provider Goal - PATIENT/CAREGIVER WILL VERBALIZE SIGNS AND SYMPTOMS OF HYPERTENSION AND WILL BE ABLE TO DEMONSTRATE ABILITY TO MANAGE EXACERBATION BY END OF THE EPISODE. Goal Provider Goal - PATIENT WILL COMPLY WITH MEDICATION WHEN SKILLED NURSE PRE-POURS MEDICATION THROUGHOUT CERTIFICATION PERIOD. Goal Provider Goal - PATIENT WILL REMAIN SAFE WITHOUT DECOMPENSATION IN DEPRESSIVE CONDITION, WHILE MAINTAINING OPTIMAL LEVEL OF MENTAL HEALTH AND WELL BEING THROUGHOUT CERTIFICATION PERIOD. Goal Provider Goal - PATIENT/CAREGIVER WILL VERBALIZE SIGNS AND SYMPTOMS OF EXACERBATION OF DIABETES TO REPORT TO NURSE/PHYSICIAN THROUGHOUT THE CERTIFICATION PERIOD. Reason for Visit INDEPENDENT IN THE HOME Encounters Start Date/Time End Date/Time Encounter Type Admission Type Attending [facility] Care Department Encounter ID Discharge Date Discharge Status Discharge Condition Discharge Reason Percent Goals Met 2023-06-08 00:00:00 2023-07-20 00:00:00 Outpatient ANICETO RUTH [facility] [place] [id number] 2023-07-20 00:00:00 DISCHARGE TO HOME OR SELF CARE INDEPENDEN T IN THE HOME PER CLIENT REQUEST 58.82
--- OUTSIDE RECORDS SUMMARY | 2024-04-13 02:11 | XMS_ITS | Continuity of Care Document ---
Author Organization [facility] Address [address] [facility] [address] [place] [address] Phone Care Team Providers Care Radiologic Technician Name Role Phone Priya GALVAN, Carol Unavailable Unavailab le Allergies, Adverse Reactions, Alerts Substance Reaction Status Criticality nicotine Active No Information topiramate Active No Information Medications Medication Instructions Dosage Effective Dates (start - stop) Status Comments folic acid 1 mg tablet take 1 tablet by oral route every day 1 MG - Active prednisone 5 mg tablet take 1 tablet by oral route every day 5 MG - Active sertraline 100 mg tablet take 2 tablet by oral route every day 200 MG - Active lidocaine 4 % topical patch Use 1 patch topically on the back as needed every day - Active acetaminophen 500 mg tablet take 2 tablet by oral route every 8 hours for two weeks - Active LOSARTAN POT 25MG TAKE 1 TABLET BY ORA L ROUTE EVERY DAY 25 MG - Active omeprazole 20 mg capsule,delayed release take 1 capsule by oral route every day before a meal 20 MG - Active montelukast 10 mg tablet take 1 tablet by oral route every day in the evening 10 MG - Active metformin 500 mg tablet take 1 tablet by oral route every day with morning - Active isosorbide mononitrate ER 30 mg tablet,extended release 24 hr take 1 tablet by oral route every day in the morning 30 MG - Active furosemide 40 mg tablet take 1 tablet by oral route every day 40 MG - Active Lipitor 10 mg tablet TAKE 1 TABLET BY OR AL ROUTE EVERY DAY - Active amlodipine 5 mg tablet take 1 tablet by oral route every day at bedtime - Active Seroquel 50 mg tablet take 1 tablet by o ral route twice a day - Active trazodone 50 mg tablet take 2 tablets by oral route at bedtime - Active spironolactone 25 mg tablet take 1 tablet by oral route every day 25 MG - Active senna 8.6 mg tablet Take 1 tablet by mouth once daily NEEDED for constipation. - Active Spiriva with HandiHaler 18 mcg and inhalation capsules inhale by inhalation route every day the contents of one capsule (18 mcg) using 2 inhalations via handihaler 0.00 - Active albuterol sulfate HFA 90 mcg/actuation aerosol inhaler inhale 2 puff by inhalation route every 4 - 6 hours as needed 180 MCG - Active Procedures Procedure Date OFFICE/OUTPATIENT VISIT EST OFFICE/OUTPATIENT VISIT EST OFFICE/OUTPATIENT VISIT EST HOME VISIT EST PATIENT OT EVAL LOW COMPLEX 30 MIN MEDICAL NUTRITION INDIV IN OT EVAL LOW COMPLEX 30 MIN PT EVAL LOW COMPLEX 20 MIN OFFICE/OUTPATIENT VISIT NEW Advance Directives Directive Yes / No Effective Date File Name No Information Encounters Encounter Description Practice Location Reason(s) For Visit Diagnoses Date Provider Providers Copied on Encounter [facility], [address], [place], [place], [id number], [place] tel:[phone] [place] No Information 4 Pitsiladis Carol. [address], [place], [place], [id number], [place]. tel:[phone] OFFICE/OUTPA TIENT VISIT EST [facility], [address], [place], [place], [id number], tel:[phone] [place] Acute Visit (chief complaint) Chronic obstructive pulmonary disease, unspecified COPD typeChronic respiratory failure, unspecified whether with hypoxia or hypercapnia 4 Benedict Aqib. [address] [place], [place], [id number], [place]. tel:[phone] [facility], [address] [facility], [place], [place], [id number], tel:[phone] [place] [address] No Information 4 Benedict Aqib. [address] [place], [place], [id number], [place]. tel:[phone] [facility], [address] [facility], [place], [place], [id number], tel:[phone] [place] No Information 4 Benedict Aqib. [address] [place], [place], [id number], [place]. tel:[phone] [facility], [address] [facility] [address], [place], [place], [id number], [place] tel:[phone] [place] [address] No Information 4 Benedict Aqib. [address] [place], [place], [id number], [place]. tel:[phone] OFFICE/OUTPA TIENT VISIT EST [facility], [address] [facility], [place], [place], [id number], tel:[phone] [place] Semi-Annual (chief complaint) Chronic depressionAnx iety, generalizedHy pertensive heart and chronic kidney disease with heart failure and stage 1 through stage 4 chronic kidney disease, or unspecified chronic kidney diseaseHeart failure, unspecified HF chronicity, unspecified heart failure typeNonischem ic congestive cardiomyopath yPulmonary HTNStage 3a chronic kidney diseaseType 2 diabetes mellitus with stage 3a chronic kidney disease, without long-term current use of insulinDiabet ic peripheral vascular diseaseHyperl ipidemia, unspecified hyperlipidemi a typeChronic GERDChronic obstructive pulmonary disease, unspecified COPD typeChronic respiratory failure with hypoxia and hypercapniaCh ronic respiratory failure with hypercapnia Oct- 0- 4 Benedict Aqib. [address] [place], [place], [id number], [place]. tel:[phone] [facility], [address] [facility] [facility] [address], [place], [place], [id number], [place] tel:[phone] [place] Chronic obstructive pulmonary disease, unspecifiedCh ronic respiratory failure, unspecified whether with hypoxia or hypercapnia Sep-3 0- 4 Benedict Aqib. [address], [place], [place], [id number], [place]. tel:[phone] [facility], [address] [facility], [place], [place], [id number], [place] tel:[phone] [place] Heart failure, unspecified HF chronicity, unspecified heart failure type Sep-2 4 Benedict Aqib. [address] [place], [place], [id number], [place]. tel:[phone] [facility], [address] [facility], [place], [place], [id number], [place] tel:[phone] [place] No Information Sep-2 4 Iris Ramsey. [address], [place], [place], [id number], [place]. tel:[phone] OFFICE/OUTPA TIENT VISIT EST [facility], [address] [address], [place], [place], [id number], [place] tel:[phone] [place] Acute Visit (chief complaint) Suspected fracture of rib of left side Sep-1 4 Iris Ramsey. [address] [place], [place], [id number], [place]. tel:[phone] [facility], [address] [facility], [place], [place], [id number], [place] tel:[phone] [place] No Information Sep-0 4 Os Jennyfer. [address] [place], [place], [id number], [place]. tel:[phone] [facility], [address], [place], [place], [id number], [place] tel:[phone] [place] Heart failure, unspecified 4 Iris Ramsey. [address] [place], [place], [id number], [place]. tel:[phone] [facility], [address], [place], [place], [id number], [place] tel:[phone] [place] No Information 4 Os Jennyfer. [address] [place], [place], [id number], [place]. tel:[phone] [facility], [address], [place], [place], [id number], [place] tel:[phone] [place] No Information 4 Os Jennyfer. [address] [place], [place], [id number], [place]. tel:[phone] HOME VISIT EST PATIENT [facility], [address] [facility] [address] [address], [place], [place], [id number], [place] tel:[phone] [place] Follow-up (chief complaint) Hypertensive heart disease with heart failureHeart failure, unspecified HF chronicity, unspecified heart failure typeChronic obstructive pulmonary disease, unspecified COPD typeTobacco use disorder 4 Os Jennyfer. [address] [place], [place], [id number], [place]. tel:[phone] [facility], [address] [facility] [address] [address], [place], [place], [id number], [place] tel:[phone] [place] Encounter for rehabilitatio n evaluation 4 Theroux Lyndsay. [address] [place], [address]. tel:[phone] [facility], [address] [facility] [address] [address], [place], [place], [id number], [place] tel:[phone] [place] No Information 4 Os Jennyfer. [address] [place], [place], [id number], [place]. tel:[phone] [facility], [address] [facility] [facility] [address], [place], [place], [id number], [place] tel:[phone] [place] Heart failure, unspecified HF chronicity, unspecified heart failure type 4 Os Jennyfer. [address], [place], [place], [id number], [place]. tel:[phone] [facility], [address] [facility], [place], [place], [id number], [place] tel:[phone] [place] No Information 4 Os Jennyfer. [address] [place], [place], [id number], [place]. tel:[phone] [facility], [address] [facility], [place], [place], [id number], [place] tel:[phone] [place] Deficiency of other specified nutrient elementsEncou nter for nutritional assessmentDiursula amador nutritional counseling completed 4 Izzy Arechiga. [address] [place], [place], [id number], [place]. tel:[phone] [facility], [address] [facility], [place], [place], [id number], [place] tel:[phone] [place] Encounter for rehabilitatio n evaluationAlt eration in performance of activities of daily livingDifficu lty in walking, not elsewhere classified 4 Gildardo Chavira. [address] [facility] [address] [place], [place], [id number]. tel:[phone] [facility], [address] [facility], [place], [place], [id number], [place] tel:[phone] [place] Encounter for rehabilitatio n evaluation 4 Khoa De Santiago. [address], [id number], . tel:[phone] OFFICE/OUTPA TIENT VISIT [facility], [address] [address], [place], [place], [id number], tel:[phone] [place] Post Enrollment Evaluation (chief complaint) Chronic obstructive pulmonary disease, unspecified COPD typeMajor depressive disorder, recurrent, mildAnxiety, generalizedHy pertensive heart disease with heart failureHeart failure, unspecified HF chronicity, unspecified heart failure typeCardiomyo chepe, unspecified typeHyperlipi demia, unspecified hyperlipidemi a typePostmenop ausal osteoporosisC hronic GERDChronic respiratory failure, unspecified whether with hypoxia or hypercapniaOb structive sleep apnea syndromeTobac co use disorderEncou nter for general adult medical examination without abnormal findingsIron deficiency anemia, unspecified iron deficiency anemia type Apr-0 4 Os Jennyfer. [address] [place], [place], [id number], . tel:[phone] [facility], [address] [address], [place], [place], [id number], [place] tel:[phone] [place] No Information Jul- 4 Os Jennyfer. [address] [place], [place], [id number], [place]. tel:[phone] [facility], [address] [address], [place], [place], [id number], tel:[phone] [place] No Information Apr- 3 Bhagavatula Ujjwala. [address] [place], [place], [id number], [place]. tel:[phone] Family History Family Member Type Diagnosis Age At Onset No Information Immunizations Vaccine Date Status Comments Fluzone High Dose refused No te: refused 02/01/24 ; Source: New Immunization Record COVID-19 Pfizer administered Source: Othe r Registry Flu-ccIIV4 administered Source: Other R egistry PCV13 administered Source: Other R egistry PPSV23 administered Source: Other R egistry Payers Payer name Insurance type Covered constitution party ID Thalia villareal(ramona) [facility] [id number] [facility] 16 [id number] Social History Type Description Quantity Date Captured Comments Alcohol Use Details Unknown Caffeine Use Details Unknown Tobacco Use Status No Information Smoking Status No Information Sex Female Chief Complaint And Reason For Visit No Information Reason For Referral Reason For Referral No Information Plan Of Treatment Date Type Action Status Referral Ordered: Dr Beckford -Pulmonology (related to Chronic obstructive pulmonary disease, unspecified COPD type) ordered Referral Referred To: Dr Beckford Ordered: Referrals: Pulmonology. Dr Beckford. Follow-up and treat ordered Referral Ordered: Dentistry (related to Healthcare maintenance) ordered Referral Ordered: Train Caller (related to Encounter for general adult medical examination without abnormal findings) ordered Referral Ordered: Gastroenterology (related to Encounter for general adult medical examination without abnormal findings) ordered Referral Ordered: Referrals: Cardiology Appointment date/timeframe: 11/20/2023 ordered Referral Ordered: Referrals: Pulmonology Appointment date/timeframe: 08/05/2023 ordered Referral Ordered: Referrals: Dentistry. Evaluate and treat ordered Referral Ordered: Referrals: Gastroenterology. Evaluate and treat ordered Referral Ordered: Referrals: Train Caller. Evaluate and treat ordered Appointment Paola Romero [facility] Appointment Paola Romero Appointment Paola Romero Appointment Paola Rmoero Appointment Paola Romero Appointment Paola Romero Appointment Paola Romero Appointment Paola Romero Appointment Paola Romero Appointment Romero, Appointment Romero, Appointment Romero, Appointment Romero, Appointment Romero, Appointment Romero, Appointment Romero, Appointment Romero, Appointment Romero, Appointment Romero, Appointment Romero, Appointment Romero, Appointment Romero, Appointment Romero, Appointment Romero, Appointment Romero, Appointment Romero, Appointment Romero, Appointment Romero, Appointment Romero, Appointment Romero, Appointment Romero, Appointment Romero, Appointment Romero, Appointment Romero, Appointment Romero, Appointment Romero, Appointment Romero, Appointment Romero, Appointment Romero, Appointment Romero, Appointment Romero, Appointment Romero, Appointment Romero, Appointment Romero, Appointment Romero, Appointment Romero, Appointment Romero, Appointment Romero, Appointment Romero, Appointment Romero, Appointment Romero, Appointment Nick Paola Appointment Nick Paola Appointment Nick Paola Appointment Nick, Paola Appointment Paola Romero Future Order: Radiology Order Pu lmonary function tests ([id number]), Ordered on: Ordered Future Order: Radiology Order Ri bs X-ray; Bilateral, with Chest X-ray (4+ views) ([id number]), Ordered on: Ordered Future Order: Radiology Order Ma mmogram (Screen); Bilat, 2-view study of each breast, incl computer-aided detection when performed ([id number]), Ordered on: Ordered Future Order: Radiology Order Ch est CT, diagnostic, WITHOUT Contrast ([id number]), Ordered on: Ordered Future Order: Lab Order BASIC ME TABOLIC PANEL ([id number]), Scheduled for: Ordered Future Order: Lab Order BASIC ME TABOLIC PANEL ([id number]), Ordered on: Ordered History Of Present Illness Encounter Date Complaint History Of Prese nt Illness Acute Visit Paola is a 63 years old female who was seen in the clinic for an acute visit. Pt complained of chest discomfort and shortness of breath. Pt states that [facility] Pt denies any diaphoresis, fevers, nausea, vomiting, abdominal pain, jaw pain, back pain or any other symptoms at this time. Pt is on supplemental O2 4L via NC on baseline. She had her portable O2 regulator turned off to conserve battery. Semi-Annual Paola is a 63 year old female who is being seen today for her semi annual exam. She states that she is doing well and no concerns other than back pain due to a fall last week. Patient was seen in the clinic today.interpreter for the deaf CASE Cueva, utilized for assessment. Musical Instrument Supervisor utilized for assessment. Patient currently lives in community. There have been 2 ER visits but no hospitalizations, SNF admission in the last six months.Diagnoses Reviewed.Transportation: needs transportConsults:-Dental: no dentures; dental referral -Podiatry: can be done by podiatry-Vision: no glasses but should have them as she has difficulty seeing; vision referral-Cardiology: [facility]: 10/13/23 at 9:30a-Pulmonology: [facility]: 08/05/23-GI: order in place for colonoscopyScreenings: Continuing to screen-Chest CT: <80, smoked in the last 15 years; order in place-Mammogram: order in place -Colonoscopy: order in place4 Ms:Mentation: all messed up ; don't remember certain things; didn't remember the historical interpreter who met her at her house recently -Orientation: A&Ox3-MOCA: in 08/2023-Cannot read in Hebrew or Persian-Family support: Has 2 sisters and 2 kids who don't visit (son did talk to historical interpreter-he is the HCP Aron)Medications:-Medications reviewed.Tobacco use- 2-3 cigarettes a dayOxygen how many 4 LMedical Records reviewed Mobility:-Ambulates: Independent w/ walker-Falls: She has had 2 falls in the last year, including 1 last week. WMM:-Advance Directives reviewed: DNR/DNI, hospitalize-HCP: not invoked-Is there one thing you want to work on so you can do [most important thing]? nothing in particular-Anything you worry about? no concerns at this time Acute Visit PPT today seen f or acute left rib pain s/p fall. She reports tripping over a table and hitting her ribs. Geodetic Survey Director used for visit. On exam ppt with significant tenderness to area with palpitation, noted swelling of left flank. New order for STAT Xray - negative for acute rib fracture.(+) ROS: fall with rib painEXAM: Alert, oriented. continuous oxygen. swelling to left flank. xray neg.plan: scheduled APAP and follow up with PCP next week Follow-up Comments: Joanna mckeon is a 63 year old female being see for a post enrollment follow up.Have made several attempts to have ppt be brought into clinic (including today) where she had been unable to come in. Often referring this to issues with her oxygen. Have also attempted to see ppt at her residence where she was not home at that time.Sowmya was scheduled to come into clinic but reported there was an issue with her portable oxygen to get into the clinic. I had waited outside her apartment for 15 minutes for her to open her door. Ppt only speaks Persian therefore Proprio interpreter for the deaf line was utilized for assessment. No recent hospitalizations. No medication changes. Ppt reports feeling better then when last evaluated by nurse on Thursday. She reports chronic dyspea and chest pain which is intermittent. She does follow Cardiology regularly. Ppt had no medical concerns at this time. Post Enrollment Evaluation Comments: Joanna mckeon is a 63 year old female who is being seen today for a post enrollment exam. Patient had been seen in clinic.interpreter for the deaf CASE Cueva, utilized for assessment.Musical Instrument Supervisor utilized for assessment. Patient currently lives in community. There have been hospitalizations, SNF admission and/or ER visits in the last six months.-Several hospitalizations for fatigue typically [facility] (requesting records)Diagnoses Reviewed.Transportation: needs transportConsults:-Dental: no dentures; dental referral -Podiatry: can be done by podiatry-Vision: no glasses but should have them as she has difficulty seeing; vision referral-Cardiology: [facility]: 10/13/23 at 9:30a-Pulmonology: [facility]: 08/05/23-GI: order in place for colonoscopyScreenings: Continuing to screen-Chest CT: <80, smoked in the last 15 years; order in place-Mammogram: order in place -Colonoscopy: order in place4 Ms:Mentation: all messed up ; don't remember certain things; didn't remember the historical interpreter who met her at her house recently -Orientation: A&Ox3-MOCA: TBD-Cannot read in Hebrew or Persian-Family support: Has 2 sisters and 2 kids who don't visit (son did talk to historical interpreter-he is the HCP Aron)Medications:-Medications reviewed.Mobility:-Ambulates: Independent w/ walker-Falls: 4 times in the bathtub (last year)WMM:-Advance Directives reviewed: DNR/DNI, hospitalize-HCP: not invoked-Is there one thing you want to work on so you can do [most important thing]? nothing in particular-Anything you worry about? no concerns at this time Functional Status Date Functional Assessmen t No Information Instructions Date Instruction Additional Infor candelario Patient's current sy mptoms possibly due to chronic respiratory failure secondary to COPDContinues to smoke cigarettesRequires supplemental O2 4L via NC but was conserving battery on her portable O2 regulatorPt felt much improved and symptoms resolved once she was put on the clinic O2 regulator at 4L via NCEKG done in the office shows no ischemic changesMay also be a component of anxietyPt is currently back to her baseline and does not complain of any symptoms at this time Related to Chronic respiratory failure, unspecified whether with hypoxia or hypercapnia Pt with COPD and chr onic respiratory failureRequires 4L supplemental [id number] to use prednisoneVentolin as neededContinues to smoke a few cigarettes every dayEducation provided about smoking cigarettes and oxygen use which she is aware of and does not smoke around oxygenContinues to follow up with Pulmonology Related to Chronic obstructive pulmonary disease, unspecified COPD type Pt with chronic resp iratory failure secondary to COPDContinues to smoke cigarettesRequires supplemental O2 4L via NCContinue prednisoneVentolin as neededFollow up with Pulmonology as scheduled Related to Chronic respiratory failure with hypoxia and hypercapnia Pt with chronic resp iratory failure secondary to COPDContinues to smoke cigarettesRequires supplemental O2 4L via NCContinue prednisoneVentolin as neededFollow up with Pulmonology as scheduled Related to Chronic respiratory failure with hypercapnia Pt with COPD and chr onic respiratory failureRequires 4L supplemental Q9Vxqtihoha to use prednisoneVentolin as neededContinues to smoke a few cigarettes every dayEducation provided about smoking cigarettes and oxygen use which she is aware of and does not smoke around oxygenContinues to follow up with Pulmonology Related to Chronic obstructive pulmonary disease, unspecified COPD type Pt with chronic GERD Currently asymptomaticContinue PPIWill continue to monitor Related to Chronic GERD Pt with hyperlipidem iaCurrently stableContinue statinWill continue to monitor Related to Hyperlipidemia, unspecified hyperlipidemia type Pt with Diabetes and PVD as evidenced by physical exam showing BL LE dry, shiny, no hairDiabetes is well controlledContinue MetforminWill continue to monitor Related to Diabetic peripheral vascular disease Pt with Type 2 DMCur rently [id number] 5.9Continue MetforminDiscussed diet and exerciseWill continue to monitor Related to Type 2 diabetes mellitus with stage 3a chronic kidney disease, without long-term current use of insulin Pt with CKD stage 3C urrently stableGFR 51, Cr 1.20Avoid nephrotoxic drugsWill continue to monitor Related to Stage 3a chronic kidney disease Patient with nonisch emic congestive cardiomyopathyPatient continues to follow up with CardiologyContinue current managementWill continue to monitor Related to Nonischemic congestive cardiomyopathy Pt with pulmonary HT NContinues to follow up with CardiologyContinue current managementWill continue to monitor Related to Pulmonary HTN Patient with diastol ic heart failureCardiology notes reviewed on 02/10/24Echo done in 06/2023 showed LVH, EF 51%, Grade I diastolic dysfunction, wall motion abnormalitiesContinue current managementDaily weights Continue current management Related to Heart failure, unspecified HF chronicity, unspecified heart failure type Patient with HTN and heart failureBP remains well controlled Continue current management Discussed DASH dietWill continue to monitor Related to Hypertensive heart and chronic kidney disease with heart failure and stage 1 through stage 4 chronic kidney disease, or unspecified chronic kidney disease Patient has anxiety with panic attacks No triggers identified for panic attacksContinues to see therapist and psychiatristWill continue to monitor Related to Anxiety, generalized Mild recurrent major depressionShe reports feeling depressed all the timeNo SI, HI or hallucinations noted todaySees therapist and psychiatristContinue Zoloft Continue TrazodoneWill continue to monitor Related to Chronic depression recent fall STAT xra y todayf/u PCP tomorrow Related to Suspected fracture of rib of left side 3-4 cigarettes/day 50+/- years R elated to Tobacco use disorder BP goal equal to or less than 140/90BPs have been stable-Continue losartan and amlodipineEcho revealing low EF; ppt had been referred to cardiology-Continue carvedilol, lasixDaily weights performed by pptNo edema noted; LSCTA; chronic dyspnea on 4L O2 Related to Hypertensive heart disease with heart failure -Ventolin, monteluka st, low dose prednisone, use rescue inhaler PRN-F/u w/ pulmonologyRequires oxygen 3-4L via NCContinues tobacco use 2-3 cigarettes per day-Education provided about smoking cigarettes and oxygen use which she is aware of and does not smoke around oxygen Related to Chronic obstructive pulmonary disease, unspecified COPD type Echo revealing low E F; ppt had been referred to cardiology-Continue carvedilol, lasixDaily weights performed by ppt Related to Heart failure, unspecified HF chronicity, unspecified heart failure type Per preenrollment re cordsEcho revealing low EF; ppt had been referred to cardiology-Continue carvedilol, lasixDaily weights performed by ppt Related to Heart failure, unspecified HF chronicity, unspecified heart failure type Per preenrollment re cordsHad been followed by hematology-oncology: no longer requiring f/u as SE provider can manageHad refused ferrous sulfate d/t constipation per preenrollment recordsObtaining CBC Related to Iron deficiency anemia, unspecified iron deficiency anemia type 3-4 cigarettes/day 5 0+/- yearsOrdering chest CT which ppt was agreeable w/ Related to Tobacco use disorder Per preenrollment re cordsHad been seen by pulmonologyAdamantly refuses CPAP Related to Obstructive sleep apnea syndrome Requires oxygen 3-4L via NCContinues tobacco use-Ventolin, montelukast, low dose prednisone, use rescue inhaler PRN-F/u w/ pulmonology 08/05/23 Related to Chronic respiratory failure, unspecified whether with hypoxia or hypercapnia Per preenrollment re cordsDenies reflux today-Continue omeprazole Related to Chronic GERD Per preenrollment re cords12/2020 Bone DEXA revealed Osteoporosis according to the WHO criteria; can do a repeat in 2 years if indicated-Had been started on alendronate but is not on it at this time-Can consider restarting in the future Related to Postmenopausal osteoporosis Per preenrollment re cordsCurrently on no medicationObtain lipid panel for PEE Related to Hyperlipidemia, unspecified hyperlipidemia type Per preenrollment re cordsNo records to show diagnosticsContinue carvediolol Related to Cardiomyopathy, unspecified type Per preenrollment re cordsEcho revealing low EF; ppt had been referred to cardiology-Continue carvedilol, lasixDaily weights performed by ppt Related to Heart failure, unspecified HF chronicity, unspecified heart failure type Per preenrollment re cordsBP goal equal to or less than 140/90BP stable today-Continue losartan and amlodipineEcho revealing low EF; ppt had been referred to cardiology-Continue carvedilol, lasixDaily weights performed by pptNo edema noted; LSCTA; chronic dyspnea on 4L O2 Related to Hypertensive heart disease with heart failure Mild recurrent major depression per preenrollment recordsShe reports feeling depressed all the time; nothing new; I just deal with it Sees therapist and psychiatrist; looking for new therapist she gets along better with-Continue zoloftHistory of SI:-No SI today; reports she thinks it was stupid -Several years ago-Tried to overdose on something the doctor prescribed in the past-Tried cutting self-Both times led to psychiatry staff per ppt Related to Major depressive disorder, recurrent, mild Anxiety w/ panic att acks Panic attacks- can't identify triggersTremors at timeNoted to have anxiety during because of new team membersTherapist: does not like and is looking to switch therapistPsychiatrist: sees monthly Related to Anxiety, generalized Per preenrollment re cords-Ventolin, montelukast, low dose prednisone, use rescue inhaler PRN-F/u w/ pulmonologyRequires oxygen 3-4L via NCContinues tobacco use 2-3 cigarettes per day-Education provided about smoking cigarettes and oxygen use which she is aware of and does not smoke around oxygen Related to Chronic obstructive pulmonary disease, unspecified COPD type Assessments Type Assessment Date No Information Goals Health Concern Goal Type Priority Status Date Paola is at risk for functional decline due to left shoulder pain Pt will report a decrease in left shoulder pain Patient Goal Discontinued 4 Elena is at risk for complications related to diabetes. Paola will not experience any medical complications or hospitalizations, related to diabetes and A1C will remain stable, as determined by the provider, for 6 months. Patient Goal Discontinued 4 Patient Care Teams Name Effective Dates (start - stop) Status Members No Information
== END 2024-04-07 13:42 | disposition home or self-care (01) ==
PROVIDERS: PCP Internal Medicine; Visit Provider Nurse Practitioner Family
DX: I50.9 Heart failure, unspecified (principal); R79.89 Other specified abnormal findings of blood chemistry; I21.4 Non-ST elevation (NSTEMI) myocardial infarction; I34.0 Nonrheumatic mitral (valve) insufficiency; I10 Essential (primary) hypertension; J43.2 Centrilobular emphysema; Z65.8 Other specified problems related to psychosocial circumstances
CPT/HCPCS: 93010; 99214

== ENCOUNTER → 2024-04-07 12:41 | Outpatient (BNVA) | payer MEDICAID, SELFPAY | PROVIDERS: PCP Internal Medicine; Visit Provider Nurse Practitioner Family | DX: I42.8 Other cardiomyopathies (principal); I50.9 Heart failure, unspecified; I21.4 Non-ST elevation (NSTEMI) myocardial infarction; I34.0 Nonrheumatic mitral (valve) insufficiency; I10 Essential (primary) hypertension; E11.9 Type 2 diabetes mellitus without complications; J43.2 Centrilobular emphysema; R79.89 Other specified abnormal findings of blood chemistry; Z65.8 Other specified problems related to psychosocial circumstances | CPT/HCPCS: 93005; 99212 ==

== ENCOUNTER 2024-04-20 12:40 | Outpatient (REF) | payer MEDICAID, SELFPAY ==
[2024-04-20 10:47] VITALS: PULSE 77; O2SAT 96
--- OUTSIDE RECORDS SUMMARY | 2024-04-20 12:42 | XMS_ITS | Clinical Summary ---
Author Organization Unknown Care Team Providers Care Outcome Analyst Name Role Phone NICHOLAS WOLF MD, KENJI Unavailable Unavailable MOMO VIZCAINO, ANICETO Unavailable Unavailable Payers Payer Name Policy Type Policy Number Effective Date Expira tion Date [facility] [id number] [place]ICAID [place] [id number] Problems Condition Name Condition Details Condition Category [...] 2019-05 00:00: 00 02-26 23:59 :00 No [id number] Per instruc tions 4 TIMES DAILY Per instructio ns 4 TIMES DAILY (route: inhalation ) Med Classific ation: Respirato ry Therapy Agents quetiapine 50 mg tablet 2019-05 00:00: 00 02-26 23:59 :00 No [id number] 50 mg DOS VECES AL D 50 mg DOS VECES AL D (route: oral) Med Classific ation: Central Nervous System Agents baclofen 10 mg tablet 05-11 00:00: 00 02-26 23:59 :00 No [id number] 10 mg 3 TIMES DAILY 10 mg 3 TIMES DAILY (route: oral) Med Classific ation: Locomotor System carvedilol 12.5 mg tablet 2019-05 00:00: 00 05-18 23:59 :00 No [id number] Per instruc tions DOS VECES AL D Per instructio ns DOS VECES AL D (route: oral) Med Classific ation: Cardiovas cular Therapy Agents simvastatin 40 mg tablet 2019-05 00:00: 00 02-26 23:59 :00 No [id number] Per instruc tions TOME ROSEANN TABLETA TODOS LOS D Per instructio ns TOME ROSEANN TABLETA TODOS LOS D (route: oral) Med Classific ation: Cardiovas cular Therapy Agents meclizine 25 mg tablet 05-10 00:00: 00 02-26 23:59 :00 No [id number] 25 mg DAILY 25 mg DAILY (route: oral) Med Classific ation: Gastroint estinal Therapy Agents oxycodone 5 mg tablet 05-09 00:00: 00 05-23 23:59 :00 No [id number] 1 mg DOS VECES AL D 1 mg DOS VECES AL D (route: oral) Med Classific ation: Analgesic , Anti-infl ammatory or Antipyret ic trazodone 50 mg tablet 05-10 00:00: 00 02-26 23:59 :00 No [id number] 2 tablet AT BEDTIME NEEDED 2 tablet AT BEDTIME NEEDED (route: oral) Med Classific ation: Central Nervous System Agents carvedilol 6.25 mg tablet 05-18 00:00: 00 02-26 23:59 :00 No [id number] 1 tablet 2 TIMES DAILY 1 tablet 2 TIMES DAILY (route: oral) Med Classific ation: Cardiovas cular Therapy Agents Combivent Respimat 20 mcg-100 mcg/actuati on solution for inhalation 05-18 00:00: 00 02-26 23:59 :00 No [id number] 1 puff EVERY 6 HOURS 1 puff EVERY 6 HOURS (route: inhalation ) Med Classific ation: Respirato ry Therapy Agents lisinopril 5 mg tablet 05-18 00:00: 00 02-26 23:59 :00 No [id number] 5 mg DAILY 5 mg DAILY (route: oral) Med Classific ation: Cardiovas cular Therapy Agents montelukast 10 mg tablet 05-18 00:00: 00 02-26 23:59 :00 No [id number] 1 tablet BEDTIME 1 tablet BEDTIME (route: oral) Med Classific ation: Respirato ry Therapy Agents omeprazole 20 mg capsule,del ayed release 05-18 00:00: 00 02-26 23:59 :00 No [id number] 1 capsule DAILY 1 capsule DAILY (route: oral) Med Classific ation: Gastroint estinal Therapy Agents sertraline 100 mg tablet 05-18 00:00: 00 02-26 23:59 :00 No [id number] 2 tablet DAILY 2 tablet DAILY (route: oral) Med Classific ation: Central Nervous System Agents O2 - OXYGEN 05-18 00:00: 00 02-26 23:59 :00 No [id number] 4 Liter O2 - CONTINUOUS 4 Liter O2 - CONTINUOUS (route: Oxygen) Alternate Route: O2 - NASAL CANNULA. Med Classific ation: Medical Oxygen tramadol 50 mg tablet 05-21 00:00: 00 02-26 23:59 :00 No [id number] 1 tablet 2 TIMES DAILY 1 tablet 2 TIMES DAILY (route: oral) Med Classific ation: Analgesic , Anti-infl ammatory or Antipyret ic cefuroxime axetil 250 mg tablet 06-20 00:00: 00 02-26 23:59 :00 No [id number] 2 tablet EVERY 12 HOURS 2 tablet EVERY 12 HOURS (route: oral) Med Classific ation: Anti-Infe ctive Agents prednisone 20 mg tablet - 00:00: 00 02-26 23:59 :00 No [id number] 2 tablet DAILY 2 tablet DAILY (route: oral) Med Classific ation: Endocrine Combivent Respimat 20 mcg-100 mcg/actuati on solution for inhalation 2020-05 0- 00:00: 00 05-17 23:59 :00 No [id number] 1 puff 4 TIMES DAILY 1 puff 4 TIMES DAILY (route: inhalation ) Med Classific ation: Respirato ry Therapy Agents montelukast 10 mg tablet 2020-05 0-24 00:00: 00 05-17 23:59 :00 No [id number] 10 mg DAILY 10 mg DAILY (route: oral) Med Classific ation: Respirato ry Therapy Agents isosorbide mononitrate ER 30 mg tablet,exte nded release 24 hr 2020-05 0- 00:00: 00 05-17 23:59 :00 No [id number] 30 mg DAILY 30 mg DAILY (route: oral) Med Classific ation: Cardiovas cular Therapy Agents losartan 50 mg tablet - 00:00: 00 03-14 23:59 :00 No [id number] 50 mg DAILY 50 mg DAILY (route: oral) Med Classific ation: Cardiovas cular Therapy Agents furosemide 40 mg tablet 01-31 00:00: 00 05-08 23:59 :00 No [id number] 40 mg 2 TIMES DAILY 40 mg 2 TIMES DAILY (route: oral) Med Classific ation: Cardiovas cular Therapy Agents trazodone 50 mg tablet 01-28 00:00: 00 05-17 23:59 :00 No [id number] 50 mg BEDTIME 50 mg BEDTIME (route: oral) Med Classific ation: Central Nervous System Agents omeprazole 20 mg capsule,del ayed release 2020-05 0-06 00:00: 00 07-11 23:59 :00 No [id number] 20 capsule DAILY 20 capsule DAILY (route: oral) Med Classific ation: Gastroint estinal Therapy Agents prednisone 10 mg tablet 2020-05 0-21 00:00: 00 04-29 23:59 :00 No [id number] 5 mg DAILY 5 mg DAILY (route: oral) Med Classific ation: Endocrine sertraline 100 mg tablet 2020-05 00:00: 00 05-17 23:59 :00 No [id number] 100 mg DAILY 100 mg DAILY (route: oral) Med Classific ation: Central Nervous System Agents losartan 100 mg tablet 2020-05 00:00: 00 07-11 23:59 :00 No [id number] 100 mg DAILY 100 mg DAILY (route: oral) Med Classific ation: Cardiovas cular Therapy Agents quetiapine 50 mg tablet 01-29 00:00: 00 05-17 23:59 :00 No [id number] 50 mg 2 TIMES DAILY 50 mg 2 TIMES DAILY (route: oral) Med Classific ation: Central Nervous System Agents montelukast 10 mg tablet 2020-05 00:00: 00 03-14 23:59 :00 No [id number] 10 mg DAILY 10 mg DAILY (route: oral) Med Classific ation: Respirato ry Therapy Agents amlodipine 5 mg tablet 2020-05 00:00: 00 04-29 23:59 :00 No [id number] 5 mg DAILY 5 mg DAILY (route: oral) Med Classific ation: Cardiovas cular Therapy Agents carvedilol 6.25 mg tablet 2020-05 00:00: 00 07-11 23:59 :00 No [id number] 6.25 mg 2 TIMES DAILY 6.25 mg 2 TIMES DAILY (route: oral) Med Classific ation: Cardiovas cular Therapy Agents isosorbide mononitrate ER 30 mg tablet,exte nded release 24 hr 01-27 00:00: 00 03-14 23:59 :00 No [id number] 30 mg DAILY 30 mg DAILY (route: oral) Med Classific ation: Cardiovas cular Therapy Agents spironolact one 25 mg tablet 2020-05 00:00: 00 07-11 23:59 :00 No [id number] 25 mg DAILY 25 mg DAILY (route: oral) Med Classific ation: Cardiovas cular Therapy Agents sertraline 100 mg tablet 2020-0515 00:00: 00 03-14 23:59 :00 No [id number] 100 mg DAILY 100 mg DAILY (route: oral) Med Classific ation: Central Nervous System Agents furosemide 40 mg tablet 2020-05 0-24 00:00: 00 03-14 23:59 :00 No [id number] 40 mg 2 TIMES DAILY 40 mg 2 TIMES DAILY (route: oral) Med Classific ation: Cardiovas cular Therapy Agents folic acid 1 mg tablet 2020-05 0-04 00:00: 00 05-17 23:59 :00 No [id number] 1 mg DAILY 1 mg DAILY (route: oral) Med Classific ation: Electroly te Balance-N utritiona l Products amlodipine 10 mg tablet 2020-05 2- 00:00: 00 07-11 23:59 :00 No [id number] 1 tablet DAILY 1 tablet DAILY (route: oral) Med Classific ation: Cardiovas cular Therapy Agents azithromyci n 500 mg tablet 2020-05 2- 00:00: 00 05-02 23:59 :00 No [id number] 1 tablet DAILY 1 tablet DAILY (route: oral) Med Classific ation: Anti-Infe ctive Agents prednisone 20 mg tablet 2020-05 2- 00:00: 00 05-03 23:59 :00 No [id number] 1 tablet DAILY 1 tablet DAILY (route: oral) Med Classific ation: Endocrine furosemide 40 mg tablet 1-08 00:00: 00 05-17 23:59 :00 No [id number] 1 tablet DAILY 1 tablet DAILY (route: oral) Med Classific ation: Cardiovas cular Therapy Agents losartan 50 mg tablet 3-10 00:00: 00 05-17 23:59 :00 No [id number] 1 tablet DAILY 1 tablet DAILY (route: oral) Med Classific ation: Cardiovas cular Therapy Agents azithromyci n 250 mg tablet -14 00:00: 00 05-21 00:00 :00 No [id number] Per instruc tions Per instructio ns (route: oral) Med Classific ation: Anti-Infe ctive Agents ipratropium 0.5 mg-albutero l 3 mg (2.5 mg base)/3 mL nebulizatio n soln 1-14 00:00: 00 05-21 00:00 :00 No [id number] Per instruc tions Per instructio ns (route: [...] 25 mg tablet 05-21 00:00: 00 Yes [id number] 1 tablet DAILY 1 tablet DAILY (route: oral) Med Classific ation: Cardiovas cular Therapy Agents losartan 25 mg tablet 2022-0530 00:00: 00 05-21 00:00 :00 No [id number] Per instruc tions TOME ROSEANN TABLETA TODOS [...] 05-21 00:00: 00 06-15 23:59 :00 No [id number] 2 tablet DAILY 2 tablet DAILY (route: oral) Med Classific ation: Endocrine carvedilol 25 mg tablet 06-08 00:00: 00 Yes [id number] 1 tablet 2 TIMES DAILY 1 tablet 2 TIMES DAILY (route: oral) Med Classific ation: Cardiovas cular Therapy Agents losartan 50 mg tablet - 00:00: 00 Yes [id number] 2 tablet DAILY 2 tablet DAILY (route: oral) Med Classific ation: Cardiovas cular Therapy Agents quetiapine 50 mg tablet 2- 00:00: 00 Yes [id number] 1 tablet 2 TIMES DAILY 1 tablet 2 TIMES DAILY (route: oral) Med Classific ation: Central Nervous System Agents sertraline 100 mg tablet - 00:00: 00 Yes [id number] 2 tablet DAILY 2 tablet DAILY (route: oral) Med Classific ation: Central Nervous System Agents Ventolin HFA 90 mcg/actuati on aerosol inhaler - 00:00: 00 Yes [id number] Per instruc tions DAILY Per instructio ns DAILY (route: inhalation ) Med Classific ation: Respirato ry Therapy Agents Spiriva with HandiHaler 18 mcg and inhalation capsules - 00:00: 00 Yes [id number] 1 inhalat ion DAILY 1 inhalation DAILY (route: inhalation ) Med Classific ation: Respirato ry Therapy Agents trazodone 50 mg tablet - 00:00: 00 Yes [id number] 1 tablet AT BEDTIME NEEDED 1 tablet AT BEDTIME NEEDED (route: oral) Med Classific ation: Central Nervous System Agents fluticasone furoate 100 mcg-vilante rol 25 mcg/dose inhalation powder - 00:00: 00 Yes [id number] 1 inhalat ion DAILY 1 inhalation DAILY (route: inhalation ) Med Classific ation: Respirato ry Therapy Agents folic acid 1 mg tablet - 00:00: 00 Yes [id number] 1 tablet DAILY 1 tablet DAILY (route: oral) Med Classific ation: Electroly te Balance-N utritiona l Products furosemide 40 mg tablet - 00:00: 00 Yes [id number] 1 tablet DAILY 1 tablet DAILY (route: oral) Med Classific ation: Cardiovas cular Therapy Agents guaifenesin ER 600 mg tablet, extended release 12 hr - 00:00: 00 Yes [id number] 1 tablet 2 TIMES DAILY 1 tablet 2 TIMES DAILY (route: oral) Med Classific ation: Respirato ry Therapy Agents ipratropium 0.5 mg-albutero l 3 mg (2.5 mg base)/3 mL nebulizatio n soln 06-08 00:00: 00 Yes [id number] 3 mL 3 TIMES DAILY 3 mL 3 TIMES DAILY (route: inhalation ) Med Classific ation: Respirato ry Therapy Agents metformin 500 mg tablet 06-08 00:00: 00 Yes [id number] 1 tablet DAILY 1 tablet DAILY (route: oral) Med Classific ation: Endocrine montelukast 10 mg tablet 06-08 00:00: 00 Yes [id number] 1 tablet BEDTIME 1 tablet BEDTIME (route: oral) Med Classific ation: Respirato ry Therapy Agents prednisone 20 mg tablet 06-08 00:00: 00 06-08 23:59 :00 No [id number] 2 tablet DAILY 2 tablet DAILY (route: oral) Med Classific ation: Endocrine prednisone 5 mg tablet 06-08 00:00: 00 Yes [id number] 1 tablet DAILY 1 tablet DAILY (route: [...] AWARENESS FOR SAFETY AND WILL NOTIFY CLINICAL SEAT MAKER AND PHYSICIAN/PROVIDER WITH ANY CHANGE IN CONDITION. [code = SKILLED NURSE WILL MAINTAIN SITUATIONAL AWARENESS FOR SAFETY AND WILL NOTIFY CLINICAL SEAT MAKER AND PHYSICIAN/PROVIDER WITH ANY CHANGE IN CONDITION.] [...] CARE WILL BE ESTABLISHED THAT MEETS PATIENT'S LONG-TERM NEEDS AND INCLUDES PATIENT GOAL FOR HOME [...] End Date/Time Encounter Type Admission Type Attending [facility] Care Department Encounter ID Discharge Date Discharge Status Discharge Condition Discharge Reason Percent Goals Met 2023-06-08 00:00:00 2023-07-20 00:00:00 Outpatient ANICETO RUTH [facility] [id number] 2023-07-20 00:00:00 DISCHARGE TO HOME OR SELF CARE INDEPENDEN T IN THE HOME PER CLIENT REQUEST 58.82
--- OUTSIDE RECORDS SUMMARY | 2024-04-20 12:42 | XMS_ITS | Clinical Summary ---
Author Organization Unknown Care Team Providers Care Irrigation Specialist Name Role Phone NICHOLAS WOLF MD, KENJI Unavailable Unavailable MOMO VIZCAINO, ANICETO Unavailable Unavailable Payers Payer Name Policy Type Policy Number Effective Date Expira tion Date [facility] ([facility] [id number] MEDICAID [place] [id number] Problems Condition Name Condition Details Condition Category [...] 2019-05 00:00: 00 02-26 23:59 :00 No [id number] Per instruc tions 4 TIMES DAILY Per instructio ns 4 TIMES DAILY (route: inhalation ) Med Classific ation: Respirato ry Therapy Agents quetiapine 50 mg tablet 2019-05 00:00: 00 02-26 23:59 :00 No [id number] 50 mg DOS VECES AL D 50 mg DOS VECES AL D (route: oral) Med Classific ation: Central Nervous System Agents baclofen 10 mg tablet 05-11 00:00: 00 02-26 23:59 :00 No [id number] 10 mg 3 TIMES DAILY 10 mg 3 TIMES DAILY (route: oral) Med Classific ation: Locomotor System carvedilol 12.5 mg tablet 2019-05 00:00: 00 05-18 23:59 :00 No [id number] Per instruc tions DOS VECES AL D Per instructio ns DOS VECES AL D (route: oral) Med Classific ation: Cardiovas cular Therapy Agents simvastatin 40 mg tablet 2019-05 00:00: 00 02-26 23:59 :00 No [id number] Per instruc tions TOME ROSEANN TABLETA TODOS LOS D Per instructio ns TOME ROSEANN TABLETA TODOS LOS D (route: oral) Med Classific ation: Cardiovas cular Therapy Agents meclizine 25 mg tablet 05-10 00:00: 00 02-26 23:59 :00 No [id number] 25 mg DAILY 25 mg DAILY (route: oral) Med Classific ation: Gastroint estinal Therapy Agents oxycodone 5 mg tablet 05-09 00:00: 00 05-23 23:59 :00 No [id number] 1 mg DOS VECES AL D 1 mg DOS VECES AL D (route: oral) Med Classific ation: Analgesic , Anti-infl ammatory or Antipyret ic trazodone 50 mg tablet 05-10 00:00: 00 02-26 23:59 :00 No [id number] 2 tablet AT BEDTIME NEEDED 2 tablet AT BEDTIME NEEDED (route: oral) Med Classific ation: Central Nervous System Agents carvedilol 6.25 mg tablet 05-18 00:00: 00 02-26 23:59 :00 No [id number] 1 tablet 2 TIMES DAILY 1 tablet 2 TIMES DAILY (route: oral) Med Classific ation: Cardiovas cular Therapy Agents Combivent Respimat 20 mcg-100 mcg/actuati on solution for inhalation 05-18 00:00: 00 02-26 23:59 :00 No [id number] 1 puff EVERY 6 HOURS 1 puff EVERY 6 HOURS (route: inhalation ) Med Classific ation: Respirato ry Therapy Agents lisinopril 5 mg tablet 05-18 00:00: 00 02-26 23:59 :00 No [id number] 5 mg DAILY 5 mg DAILY (route: oral) Med Classific ation: Cardiovas cular Therapy Agents montelukast 10 mg tablet 05-18 00:00: 00 02-26 23:59 :00 No [id number] 1 tablet BEDTIME 1 tablet BEDTIME (route: oral) Med Classific ation: Respirato ry Therapy Agents omeprazole 20 mg capsule,del ayed release 05-18 00:00: 00 02-26 23:59 :00 No [id number] 1 capsule DAILY 1 capsule DAILY (route: oral) Med Classific ation: Gastroint estinal Therapy Agents sertraline 100 mg tablet 05-18 00:00: 00 02-26 23:59 :00 No [id number] 2 tablet DAILY 2 tablet DAILY (route: oral) Med Classific ation: Central Nervous System Agents O2 - OXYGEN 05-18 00:00: 00 02-26 23:59 :00 No [id number] 4 Liter O2 - CONTINUOUS 4 Liter O2 - CONTINUOUS (route: Oxygen) Alternate Route: O2 - NASAL CANNULA. Med Classific ation: Medical Oxygen tramadol 50 mg tablet 05-21 00:00: 00 02-26 23:59 :00 No [id number] 1 tablet 2 TIMES DAILY 1 tablet 2 TIMES DAILY (route: oral) Med Classific ation: Analgesic , Anti-infl ammatory or Antipyret ic cefuroxime axetil 250 mg tablet 06-20 00:00: 00 02-26 23:59 :00 No [id number] 2 tablet EVERY 12 HOURS 2 tablet EVERY 12 HOURS (route: oral) Med Classific ation: Anti-Infe ctive Agents prednisone 20 mg tablet - 00:00: 00 02-26 23:59 :00 No [id number] 2 tablet DAILY 2 tablet DAILY (route: oral) Med Classific ation: Endocrine Combivent Respimat 20 mcg-100 mcg/actuati on solution for inhalation 2020-05 0- 00:00: 00 05-17 23:59 :00 No [id number] 1 puff 4 TIMES DAILY 1 puff 4 TIMES DAILY (route: inhalation ) Med Classific ation: Respirato ry Therapy Agents montelukast 10 mg tablet 2020-05 0-24 00:00: 00 05-17 23:59 :00 No [id number] 10 mg DAILY 10 mg DAILY (route: oral) Med Classific ation: Respirato ry Therapy Agents isosorbide mononitrate ER 30 mg tablet,exte nded release 24 hr 2020-05 0- 00:00: 00 05-17 23:59 :00 No [id number] 30 mg DAILY 30 mg DAILY (route: oral) Med Classific ation: Cardiovas cular Therapy Agents losartan 50 mg tablet - 00:00: 00 03-14 23:59 :00 No [id number] 50 mg DAILY 50 mg DAILY (route: oral) Med Classific ation: Cardiovas cular Therapy Agents furosemide 40 mg tablet 01-31 00:00: 00 05-08 23:59 :00 No [id number] 40 mg 2 TIMES DAILY 40 mg 2 TIMES DAILY (route: oral) Med Classific ation: Cardiovas cular Therapy Agents trazodone 50 mg tablet 01-28 00:00: 00 05-17 23:59 :00 No [id number] 50 mg BEDTIME 50 mg BEDTIME (route: oral) Med Classific ation: Central Nervous System Agents omeprazole 20 mg capsule,del ayed release 2020-05 0-06 00:00: 00 07-11 23:59 :00 No [id number] 20 capsule DAILY 20 capsule DAILY (route: oral) Med Classific ation: Gastroint estinal Therapy Agents prednisone 10 mg tablet 2020-05 0-21 00:00: 00 04-29 23:59 :00 No [id number] 5 mg DAILY 5 mg DAILY (route: oral) Med Classific ation: Endocrine sertraline 100 mg tablet 2020-05 00:00: 00 05-17 23:59 :00 No [id number] 100 mg DAILY 100 mg DAILY (route: oral) Med Classific ation: Central Nervous System Agents losartan 100 mg tablet 2020-05 00:00: 00 07-11 23:59 :00 No [id number] 100 mg DAILY 100 mg DAILY (route: oral) Med Classific ation: Cardiovas cular Therapy Agents quetiapine 50 mg tablet 01-29 00:00: 00 05-17 23:59 :00 No [id number] 50 mg 2 TIMES DAILY 50 mg 2 TIMES DAILY (route: oral) Med Classific ation: Central Nervous System Agents montelukast 10 mg tablet 2020-05 00:00: 00 03-14 23:59 :00 No [id number] 10 mg DAILY 10 mg DAILY (route: oral) Med Classific ation: Respirato ry Therapy Agents amlodipine 5 mg tablet 2020-05 00:00: 00 04-29 23:59 :00 No [id number] 5 mg DAILY 5 mg DAILY (route: oral) Med Classific ation: Cardiovas cular Therapy Agents carvedilol 6.25 mg tablet 2020-05 00:00: 00 07-11 23:59 :00 No [id number] 6.25 mg 2 TIMES DAILY 6.25 mg 2 TIMES DAILY (route: oral) Med Classific ation: Cardiovas cular Therapy Agents isosorbide mononitrate ER 30 mg tablet,exte nded release 24 hr 01-27 00:00: 00 03-14 23:59 :00 No [id number] 30 mg DAILY 30 mg DAILY (route: oral) Med Classific ation: Cardiovas cular Therapy Agents spironolact one 25 mg tablet 2020-05 00:00: 00 07-11 23:59 :00 No [id number] 25 mg DAILY 25 mg DAILY (route: oral) Med Classific ation: Cardiovas cular Therapy Agents sertraline 100 mg tablet 2020-0515 00:00: 00 03-14 23:59 :00 No [id number] 100 mg DAILY 100 mg DAILY (route: oral) Med Classific ation: Central Nervous System Agents furosemide 40 mg tablet 2020-05 0-24 00:00: 00 03-14 23:59 :00 No [id number] 40 mg 2 TIMES DAILY 40 mg 2 TIMES DAILY (route: oral) Med Classific ation: Cardiovas cular Therapy Agents folic acid 1 mg tablet 2020-05 0-04 00:00: 00 05-17 23:59 :00 No [id number] 1 mg DAILY 1 mg DAILY (route: oral) Med Classific ation: Electroly te Balance-N utritiona l Products amlodipine 10 mg tablet 2020-05 2- 00:00: 00 07-11 23:59 :00 No [id number] 1 tablet DAILY 1 tablet DAILY (route: oral) Med Classific ation: Cardiovas cular Therapy Agents azithromyci n 500 mg tablet 2020-05 2- 00:00: 00 05-02 23:59 :00 No [id number] 1 tablet DAILY 1 tablet DAILY (route: oral) Med Classific ation: Anti-Infe ctive Agents prednisone 20 mg tablet 2020-05 2- 00:00: 00 05-03 23:59 :00 No [id number] 1 tablet DAILY 1 tablet DAILY (route: oral) Med Classific ation: Endocrine furosemide 40 mg tablet 1-08 00:00: 00 05-17 23:59 :00 No [id number] 1 tablet DAILY 1 tablet DAILY (route: oral) Med Classific ation: Cardiovas cular Therapy Agents losartan 50 mg tablet 3-10 00:00: 00 05-17 23:59 :00 No [id number] 1 tablet DAILY 1 tablet DAILY (route: oral) Med Classific ation: Cardiovas cular Therapy Agents azithromyci n 250 mg tablet -14 00:00: 00 05-21 00:00 :00 No [id number] Per instruc tions Per instructio ns (route: oral) Med Classific ation: Anti-Infe ctive Agents ipratropium 0.5 mg-albutero l 3 mg (2.5 mg base)/3 mL nebulizatio n soln 1-14 00:00: 00 05-21 00:00 :00 No [id number] Per instruc tions Per instructio ns (route: [...] 25 mg tablet 05-21 00:00: 00 Yes [id number] 1 tablet DAILY 1 tablet DAILY (route: oral) Med Classific ation: Cardiovas cular Therapy Agents losartan 25 mg tablet 2022-0530 00:00: 00 05-21 00:00 :00 No [id number] Per instruc tions TOME ROSEANN TABLETA TODOS [...] 05-21 00:00: 00 06-15 23:59 :00 No [id number] 2 tablet DAILY 2 tablet DAILY (route: oral) Med Classific ation: Endocrine carvedilol 25 mg tablet 06-08 00:00: 00 Yes [id number] 1 tablet 2 TIMES DAILY 1 tablet 2 TIMES DAILY (route: oral) Med Classific ation: Cardiovas cular Therapy Agents losartan 50 mg tablet - 00:00: 00 Yes [id number] 2 tablet DAILY 2 tablet DAILY (route: oral) Med Classific ation: Cardiovas cular Therapy Agents quetiapine 50 mg tablet 2- 00:00: 00 Yes [id number] 1 tablet 2 TIMES DAILY 1 tablet 2 TIMES DAILY (route: oral) Med Classific ation: Central Nervous System Agents sertraline 100 mg tablet - 00:00: 00 Yes [id number] 2 tablet DAILY 2 tablet DAILY (route: oral) Med Classific ation: Central Nervous System Agents Ventolin HFA 90 mcg/actuati on aerosol inhaler - 00:00: 00 Yes [id number] Per instruc tions DAILY Per instructio ns DAILY (route: inhalation ) Med Classific ation: Respirato ry Therapy Agents Spiriva with HandiHaler 18 mcg and inhalation capsules - 00:00: 00 Yes [id number] 1 inhalat ion DAILY 1 inhalation DAILY (route: inhalation ) Med Classific ation: Respirato ry Therapy Agents trazodone 50 mg tablet - 00:00: 00 Yes [id number] 1 tablet AT BEDTIME NEEDED 1 tablet AT BEDTIME NEEDED (route: oral) Med Classific ation: Central Nervous System Agents fluticasone furoate 100 mcg-vilante rol 25 mcg/dose inhalation powder - 00:00: 00 Yes [id number] 1 inhalat ion DAILY 1 inhalation DAILY (route: inhalation ) Med Classific ation: Respirato ry Therapy Agents folic acid 1 mg tablet - 00:00: 00 Yes [id number] 1 tablet DAILY 1 tablet DAILY (route: oral) Med Classific ation: Electroly te Balance-N utritiona l Products furosemide 40 mg tablet - 00:00: 00 Yes [id number] 1 tablet DAILY 1 tablet DAILY (route: oral) Med Classific ation: Cardiovas cular Therapy Agents guaifenesin ER 600 mg tablet, extended release 12 hr - 00:00: 00 Yes [id number] 1 tablet 2 TIMES DAILY 1 tablet 2 TIMES DAILY (route: oral) Med Classific ation: Respirato ry Therapy Agents ipratropium 0.5 mg-albutero l 3 mg (2.5 mg base)/3 mL nebulizatio n soln 06-08 00:00: 00 Yes [id number] 3 mL 3 TIMES DAILY 3 mL 3 TIMES DAILY (route: inhalation ) Med Classific ation: Respirato ry Therapy Agents metformin 500 mg tablet 06-08 00:00: 00 Yes [id number] 1 tablet DAILY 1 tablet DAILY (route: oral) Med Classific ation: Endocrine montelukast 10 mg tablet 06-08 00:00: 00 Yes [id number] 1 tablet BEDTIME 1 tablet BEDTIME (route: oral) Med Classific ation: Respirato ry Therapy Agents prednisone 20 mg tablet 06-08 00:00: 00 06-08 23:59 :00 No [id number] 2 tablet DAILY 2 tablet DAILY (route: oral) Med Classific ation: Endocrine prednisone 5 mg tablet 06-08 00:00: 00 Yes [id number] 1 tablet DAILY 1 tablet DAILY (route: [...] AWARENESS FOR SAFETY AND WILL NOTIFY CLINICAL WRAPPING CHECKER AND PHYSICIAN/PROVIDER WITH ANY CHANGE IN CONDITION. [code = SKILLED NURSE WILL MAINTAIN SITUATIONAL AWARENESS FOR SAFETY AND WILL NOTIFY CLINICAL WRAPPING CHECKER AND PHYSICIAN/PROVIDER WITH ANY CHANGE IN CONDITION.] [...] CARE WILL BE ESTABLISHED THAT MEETS PATIENT'S JAIL NEEDS AND INCLUDES PATIENT GOAL FOR HOME [...] End Date/Time Encounter Type Admission Type Attending [facility] Care Department Encounter ID Discharge Date Discharge Status Discharge Condition Discharge Reason Percent Goals Met 2023-06-08 00:00:00 2023-07-20 00:00:00 Outpatient ANICETO [facility] [id number] 2023-07-20 00:00:00 DISCHARGE TO HOME OR SELF CARE INDEPENDEN T IN THE HOME PER CLIENT REQUEST 58.82
--- OUTSIDE RECORDS SUMMARY | 2024-04-20 12:42 | XMS_ITS | Continuity of Care Document ---
Author Organization [employer] [facility] Address [address] [place] [address] Phone Care Team Providers Care Lime Hide Inspector Name Role Phone Marybel Mcmullen MD Unavailable Unavailable Allergies, Adverse Reactions, Alerts Substance Reaction Status Criticality nicotine Active No Information topiramate Active No Information Medications Medication Instructions Dosage Effective Dates (start - stop) Status Comments diltiazem ER 120 mg tablet,extended release 24 hr take 1 tablet by oral route every day 120 MG - Active losartan 100 mg tablet take 1 tablet by oral route every day 100 MG - Active folic acid 1 mg tablet take 1 [...] 8 hours for two weeks - Active omeprazole 20 mg capsule,delayed release [...] OR AL ROUTE EVERY DAY - Active Seroquel 50 mg tablet take [...] Diagnoses Date Provider Providers Copied on Encounter [facility], [address], [place], [place], [id number], [place] tel:[phone] [place] No Information 4 Benedict [address], [place], [place], [id number], [place]. tel:[phone] [facility], [address], [place], [place], [id number], tel:[phone] [place] No Information 4 Benedict Aqib. [address] [place], [place], [id number], [place]. tel:[phone] OFFICE/OUTPA TIENT VISIT EST [facility], [address] [facility] [address], [place], [place], [id number], [place] tel:[phone] [place] Acute Visit (chief complaint) Chronic obstructive pulmonary disease, unspecified COPD typeChronic respiratory failure, unspecified whether with hypoxia or hypercapnia 4 Beendict Aqib. [address] [place], [place], [id number], [place]. tel:[phone] [facility], [address] [facility] [address] [facility], [place], [place], [id number], [place] tel:[phone] [place] No Information 4 Benedict Aqib. [address] [place], [place], [id number], [place]. tel:[phone] [facility], [address] [facility] [address] [facility], [place], [place], [id number], [place] tel:[phone] [place] No Information 4 Benedict Aqib. [address] [place], [place], [id number], [place]. tel:[phone] [facility], [address] [facility] [address] [facility], [place], [place], [id number], [place] tel:[phone] [place] No Information 4 Benedict Aqib. [address] [place], [place], [id number], [place]. tel:[phone] OFFICE/OUTPA TIENT VISIT EST [facility], [address] [facility] [address] [facility], [place], [place], [id number], [place] tel:[phone] [place] Semi-Annual (chief complaint) Chronic depressionAnx iety, generalizedHy [...] hypercapnia Oct- 0- 4 Benedict A[facility]ib. [address] [facility] [place], [id number], [place]. tel:[phone] [facility], [address] [facility] [address] [facility], [place], [place], [id number], [place] tel:[phone] [place] Chronic obstructive pulmonary disease, unspecifiedCh ronic respiratory failure, unspecified whether with hypoxia or hypercapnia Sep-3 4 Benedict Aqib. [address] [facility] [place], [id number], [place]. tel:[phone] [facility], [address] [facility] [address] [facility], [place], [place], [id number], [place] tel:[phone] [place] Heart failure, unspecified HF chronicity, unspecified heart failure type Jan- 4 Benedict Aqib. [address], [place], [place], [id number], [place]. tel:[phone] [facility], [facility], [place], [place], [id number], [place] tel:[phone] [place] No Information Sep- 4 Iris Ramsey. [address] [facility] [place], [id number], [place]. tel:[phone] OFFICE/OUTPA TIENT VISIT EST [facility], [address] [facility] [address] [facility], [place], [place], [id number], [place] tel:[phone] [place] Acute Visit (chief complaint) Suspected fracture of rib of left side Sep- 4 Iris Ramsey. [address] [facility] [address], [place], [place], [id number], [place]. tel:[phone] [facility], [address] [facility], [place], [place], [id number], [place] tel:[phone] [place] Heart failure, unspecified 4 Iris Roxy. [address] [place], [place], [id number], [place]. tel:[phone] [facility], [address] [facility] [address], [place], [place], [id number], [place] tel:[phone] [place] No Information 4 Os Jennyfer. [address] [place], [place], [id number], [place]. tel:[phone] [facility], [address] [facility] [address], [place], [place], [id number], [place] tel:[phone] [place] No Information 4 Os Jennyfer. [address], [place], [place], [id number], [place]. tel:[phone] HOME VISIT EST PATIENT [facility], [address] [facility] [address], [place], [place], [id number], [place] tel:[phone] [place] Follow-up (chief complaint) Hypertensive heart disease with heart failureHeart failure, unspecified HF chronicity, unspecified heart failure typeChronic obstructive pulmonary disease, unspecified COPD typeTobacco use disorder 4 Os Jennyfer. [address] [place], [place], [id number], [place]. tel:[phone] [facility], [address] [facility] [address] [facility], [place], [place], [id number], [place] tel:[phone] [place] Encounter for rehabilitatio n evaluation 4 Theroux Lyndsay. [address] [place], [address]. tel:[phone] [facility], [address] [facility], [place], [place], [id number], [place] tel:[phone] [place] No Information 4 Os Jennyfer. [address] [place], [place], [id number], [place]. tel:[phone] [facility], [address] [facility] [address], [place], [place], [id number], [place] tel:[phone] [place] Heart failure, unspecified HF chronicity, unspecified heart failure type 4 Os Jennyfer. [address], [place], [place], [id number], [place]. tel:[phone] [facility], [facility], [place], [place], [id number], [place] tel:[phone] [place] No Information 4 Os Jennyfer. [address] [place], [place], [id number], [place]. tel:[phone] [facility], [address] [facility], [place], [place], [id number], [place] tel:[phone] [place] Deficiency of other specified nutrient elementsEncou nter for nutritional assessmentDiursula amador nutritional counseling completed 4 Izzy Arechiga. [address], [place], [place], [id number], [place]. tel:[phone] [facility], [address] [facility], [place], [place], [id number], [place] tel:[phone] [place] Encounter for rehabilitatio n evaluationAlt eration in performance of activities of daily livingDifficu lty in walking, not elsewhere classified Aug- 4 Gildardo Chavira. [address] [facility] [address] [place], [place], [id number]. tel:[phone] [facility], [address] [facility], [place], [place], [id number], [place] tel:[phone] [place] Encounter for rehabilitatio n evaluation 4 Khoa De Santiago. [address] [place], [place], [id number], [place]. tel:[phone] OFFICE/OUTPA TIENT VISIT [facility], [address] [address], [place], [place], [id number], tel:[phone] [place] Post Enrollment Evaluation (chief complaint) Chronic obstructive [...] deficiency anemia, unspecified iron deficiency anemia type Aug- 4 Os Jennyfer. [address] [place], [place], [id number], [place]. tel:[phone] [facility], [address] [address], [place], [place], [id number], [place] tel:[phone] [place] No Information Jul- 4 Os Jennyfer. [address] [place], [place], [id number], [place]. tel:[phone] [facility], [address] [address], [place], [place], [id number], [place] tel:[phone] [place] No Information Apr- 3 Bhagavatula Ujjwala. [address] [place], [place], [id number], [place]. tel:[phone] Family History Family Member Type Diagnosis Age At Onset No Information Immunizations Vaccine Date Status Comments Fluzone High Dose refused No te: refused 02/01/24 ; Source: New Immunization Record COVID-19 Pfizer administered Source: [facility] r Registry Flu-ccIIV4 administered Source: Other R egistry PCV13 administered Source: Other R egistry PPSV23 administered Source: Other R egistry Payers Payer name Insurance type Covered libertarian ID Thalia villareal(s) [facility] [id number] [facility] 16 [id number] Social History Type Description Quantity Date Captured Comments Sex Female Smoking Status No Information Chief Complaint And Reason For Visit No Information Reason For Referral Reason For Referral No Information Plan Of Treatment Date Type Action Status Referral Ordered: Dr Beckford -Pulmonology (related to Chronic obstructive pulmonary disease, unspecified COPD type) ordered Referral Referred To: Dr Beckford Ordered: Referrals: Pulmonology. Dr Beckford. Follow-up and treat ordered Referral Ordered: Dentistry (related to Healthcare maintenance) ordered Referral Ordered: Oil And Gas Field Technician (related to Encounter for general adult medical examination without abnormal findings) ordered Referral Ordered: Gastroenterology (related to Encounter for general adult medical examination without abnormal findings) ordered Referral Ordered: Referrals: Cardiology Appointment date/timeframe: 11/20/2023 ordered Referral Ordered: Referrals: Pulmonology Appointment date/timeframe: 08/05/2023 ordered Referral Ordered: Referrals: Dentistry. Evaluate and treat ordered Referral Ordered: Referrals: Gastroenterology. Evaluate and treat ordered Referral Ordered: Referrals: Oil [employer] Field Technician. Evaluate and treat ordered Appointment aPola Romero Appointment Paola Romero Appointment Paola Romero Appointment Paola Romero Appointment Paola Romero Appointment Paola Romero Appointment Paola Romero Appointment Paola Romero Appointment Paola Romero Appointment Paola Romero Appointment Poala Romero Appointment Romero, Appointment Romero, Appointment Romero, [...] Romero, Appointment Romero, Appointment Romero, Appointment Romero, -2024 Future Order: Radiology Order Pu lmonary function tests ([id number]), Ordered on: Ordered Future Order: Radiology Order Ri bs X-ray; Bilateral, with Chest X-ray (4+ views) ([id number]), Ordered on: Ordered Future Order: Radiology Order Ma mmogram (Screen); Bilat, 2-view study of each breast, incl computer-aided detection when performed ([id number]), Ordered on: Ordered Future Order: Radiology Order Ch est CT, diagnostic, WITHOUT Contrast ([id number]), Ordered on: Ordered Future Order: Lab Order BASIC ME TABOLIC PANEL ([id number]), Scheduled for: Ordered Future Order: Lab Order BASIC ME TABOLIC PANEL ([id number]), Ordered on: Ordered History Of Present Illness [...] week. Patient was seen in the clinic today.hacksaw inspector CASE Cueva, utilized for assessment. Engineer Sergeant utilized for assessment. Patient currently lives in community. There have been 2 ER visits but no hospitalizations, SNF admission in the last six months.Diagnoses Reviewed.Transportation: needs transportConsults:-Dental: no dentures; dental referral -Podiatry: can be done by podiatry-Vision: no glasses but should have them as she has difficulty seeing; vision referral-Cardiology: [facility]: 10/13/23 at 9:30a-Pulmonology: [facility]: 08/05/23-GI: order in place for colonoscopyScreenings: Continuing to screen-Chest CT: <80, smoked in the last 15 years; order in place-Mammogram: order in place -Colonoscopy: order in place4 Ms:Mentation: all messed up ; don't remember certain things; didn't remember the commercial real estate broker who met her at her house recently -Orientation: A&Ox3-MOCA: in 08/2023-Cannot read in Maldivian or Greenlandic-Family support: Has 2 sisters and 2 kids who don't visit (son did talk to commercial real estate broker-he is the HCP Aron)Medications:-Medications reviewed.Tobacco use- 2-3 [...] over a table and hitting her ribs. Director Of Catering used for visit. On exam ppt with significant tenderness to area with palpitation, noted swelling of left flank. New order for STAT Xray - negative for acute rib fracture.(+) ROS: fall with rib painEXAM: Alert, oriented. continuous oxygen. swelling to left flank. xray neg.plan: scheduled APAP and follow up with PCP next week Comments: Joanna mckeon is a 63 year old female being see for a post enrollment follow up.Have made several attempts to have ppt be brought into clinic (including today) where she had been unable to come in. Often referring this to issues with her oxygen. Have also attempted to see ppt at her residence where she was not home at that time.Ppt was scheduled to come into clinic but reported there was an issue with her portable oxygen to get into the clinic. I had waited outside her apartment for 15 minutes for her to open her door. Ppt only speaks Greenlandic therefore Proprio hacksaw inspector line was utilized for assessment. No recent hospitalizations. No medication changes. Ppt reports feeling better then when last evaluated by nurse on Thursday. She reports chronic dyspea and chest pain which is intermittent. She does follow Cardiology regularly. Ppt had no medical concerns at this time. Follow-up Comments: Joanna mckeon is a 63 year old female who is being seen today for a post enrollment exam. Patient had been seen in clinic.hacksaw inspector CASE Cueva, utilized for assessment.Engineer Sergeant utilized for assessment. Patient currently lives in community. There have been hospitalizations, SNF admission and/or ER visits in the last six months.-Several hospitalizations for fatigue typically [facility] (requesting records)Diagnoses Reviewed.Transportation: needs transportConsults:-Dental: no dentures; dental referral -Podiatry: can be done by podiatry-Vision: no glasses but should have them as she has difficulty seeing; vision referral-Cardiology: [facility]: 10/13/23 at 9:30a-Pulmonology: [facility]: 08/05/23-GI: order in place for colonoscopyScreenings: Continuing to screen-Chest CT: <80, smoked in the last 15 years; order in place-Mammogram: order in place -Colonoscopy: order in place4 Ms:Mentation: all messed up ; don't remember certain things; didn't remember the commercial real estate broker who met her at her house recently -Orientation: A&Ox3-MOCA: TBD-Cannot read in Maldivian or Greenlandic-Family support: Has 2 sisters and 2 kids who don't visit (son did talk to commercial real estate broker-he is the HCP Aron)Medications:-Medications reviewed.Mobility:-Ambulates: Independent w/ walker-Falls: 4 times in the bathtub (last year)WMM:-Advance Directives reviewed: DNR/DNI, hospitalize-HCP: not invoked-Is there one thing you want to work on so you can do [most important thing]? nothing in particular-Anything you worry about? no concerns at this time Post Enrollment Evaluation Functional Status Date Functional Assessmen t No [...] and chr onic respiratory failureRequires 4L supplemental P0Efftabark to use prednisoneVentolin as neededContinues to smoke [...] and chr onic respiratory failureRequires 4L supplemental [id number] to use prednisoneVentolin as neededContinues to smoke [...] disease Pt with Type 2 DMCur rently [id number] 5.9Continue MetforminDiscussed diet and exerciseWill continue to [...] years R elated to Tobacco use disorder Echo revealing low E F; ppt had been referred to cardiology-Continue carvedilol, lasixDaily weights performed by ppt Related to Heart failure, unspecified HF chronicity, unspecified heart failure type BP goal equal to or less than 140/90BPs have been stable-Continue losartan and amlodipineEcho revealing low EF; ppt had been referred to cardiology-Continue carvedilol, lasixDaily weights performed by pptNo edema noted; LSCTA; chronic dyspnea on 4L O2 Related to Hypertensive heart disease with heart failure -Ventolin, monteluka st, low dose prednisone, use rescue inhaler PRN-F/u w/ pulmonologyRequires oxygen 3-[facility]L [facility] tobacco use 2-3 cigarettes per day-Education provided about smoking cigarettes and oxygen use which she is aware of and does not smoke around oxygen Related to Chronic obstructive pulmonary disease, unspecified COPD type Per preenrollment re cordsEcho revealing low [...] deficiency anemia, unspecified iron deficiency anemia type Per preenrollment re cordsd been seen by pulmonologyAdamantly refuses CPAP Related to Obstructive sleep apnea syndrome 3-4 cigarettes/day 5 0+/- yearsOrdering chest CT which ppt was agreeable w/ Related to Tobacco use disorder Requires oxygen [facility]L [facility]-Ventolin, montelukast, low dose prednisone, use [...] Hyperlipidemia, unspecified hyperlipidemia type Per preenrollment re cordsEcho revealing low EF; ppt had been referred to cardiology-Continue carvedilol, lasixDaily weights performed by ppt Related to Heart failure, unspecified HF chronicity, unspecified heart failure type Per preenrollment re cordsNo records to show diagnosticsContinue carvediolol Related to Cardiomyopathy, unspecified type Per preenrollment re cordsBP goal equal [...]
--- NOTE | 2024-04-20 12:47 | PFT_ITS ---
Flows: FEV1: 58 % of predicted at 1.06 L FVC: 69 % of predicted at 1.58 L FEV1/FVC: 67 % Bronchodilator response: Present Volumes: Patient unable to perform lung volumes maneuvers. Diffusion capacity: Severely decreased. Impression: Moderate obstructive ventilatory defect with suggestion of underlying restrictive ventilatory defect with positive bronchodilator response. Patient unable to perform lung volumes maneuvers. Decreased diffusion capacity suggests emphysema. MTDD
== END 2024-04-20 12:41 | disposition home or self-care (01) ==
LOC: HO.RESP 12:40
PROVIDERS: PCP Internal Medicine; Visit Provider Internal Medicine Pulmonary Disease
DX: J44.9 Chronic obstructive pulmonary disease, unspecified (principal)
CPT/HCPCS: 94010; 94640; 94727; 94729

== ENCOUNTER → 2024-04-20 12:47 | Outpatient (BNV) | payer MEDICAID, SELFPAY | PROVIDERS: PCP Internal Medicine; Visit Provider Internal Medicine Pulmonary Disease | DX: J44.9 Chronic obstructive pulmonary disease, unspecified (principal) | CPT/HCPCS: 94060; 94729 ==

== ENCOUNTER → 2024-05-16 10:17 | Outpatient (BNVA) | payer MEDICAID, SELFPAY | PROVIDERS: PCP Internal Medicine; Visit Provider Internal Medicine Pulmonary Disease | DX: J44.9 Chronic obstructive pulmonary disease, unspecified (principal); Z87.891 Personal history of nicotine dependence; Z99.81 Dependence on supplemental oxygen | CPT/HCPCS: 99212 ==

== ENCOUNTER 2024-06-15 20:35 | Inpatient (IN) | payer MEDICARE, MEDICAID, SELFPAY ==
--- NOTE | 2024-06-15 | ECG_ITS ---
Test Reason : cp Blood Pressure : */* mmHG Vent. Rate : 111 BPM Atrial Rate : 111 BPM P-R Int : 130 ms QRS Dur : 122 ms QT Int : 352 ms P-R-T Axes : 44 16 -31 degrees QTcB Int : 478 ms Sinus tachycardia with Premature supraventricular complexes and short burst of SVT/atrial tachycardia Right bundle branch block T wave abnormality, consider inferior ischemia Abnormal ECG When compared with ECG of 21-Jun-2023 05:45, Premature supraventricular complexes are now Present Referred By: Generic ED Physician Electronically Signed By: KEVIN ODELL MD
--- NOTE | ~2024-06-15 | XR_ITS ---
CLINICAL HISTORY: cp sob 1 view chest x-ray Comparison: CR/SR - XR CHEST 1V - 06/21/23 06:49 EST Findings: Cardiomegaly. Cephalization of pulmonary vasculature and central pulmonary vascular engorgement. Increased interstitial markings in both lungs, with central/perihilar predominance. Hyperexpanded lungs consistent with COPD. No acute airspace or alveolar infiltrate. No visible pleural effusion or findings of pneumothorax. No gross evidence of acute fracture. IMPRESSION: 1. Cardiomegaly with findings of pulmonary venous congestion. This document has been electronically signed by: Storm Pinto MD on 06/15/2024 21:37:02
[2024-06-15 20:49] VITALS: BP 128/61; BP 142/90; PULSE 122; PULSE 64; RESP 24; TEMP 36.9; O2SAT 86; O2SAT 97; BMI 24.1
[2024-06-15 21:13] LABS: MANUAL DIFF FLAG NO
--- NOTE | 2024-06-15 21:13 | ED_ITS ---
HPI - Chest Pain General Chief Complaint: Chest Pain Stated Complaint: chest pain, diff breathing Time Seen by Provider: 06/15/24 21:03 History of Present Illness ED Provider: Zaria CALI narrative: The patient is a 63-year-old woman with a history of congestive heart failure. She also has a history of supraventricular tachycardia. She also has a history of COPD and is on home oxygen. She comes to the emergency room today because of chest pain and a sense of her heart racing. She also felt more short of breath than usual. No definite fever. No abdominal pain, nausea, vomiting. Related Data Home Medications ?Medication ?Instructions ?Recorded ?Confirmed albuterol sulfate 90 mcg/actuation 2 puff inhalation Q4-6H PRN 04/30/23 04/07/24 aerosol inhaler (Ventolin HFA) Shortness Of Breath Or Wheezing sertraline 100 mg tablet 200 mg PO DAILY 04/30/23 04/07/24 tiotropium bromide 18 mcg capsule 1 cap inhalation DAILY 04/30/23 04/07/24 with inhalation device (Spiriva with HandiHaler) losartan 50 mg tablet 100 mg PO DAILY 06/21/23 04/07/24 Previous Rx's ?Medication ?Instructions ?Recorded ipratropium 0.5 mg-albuterol 3 mg 3 ml inhalation TID #270 mL 05/28/23 (2.5 mg base)/3 mL nebulization soln nebulizers #1 ea 05/28/23 prednisone 5 mg tablet 5 mg PO DAILY 30 days #30 tabs 06/08/23 quetiapine 50 mg tablet 50 mg PO BID 90 days #180 tabs 08/05/23 folic acid 1 mg tablet 1 mg PO DAILY #90 tabs 09/21/23 isosorbide mononitrate 30 mg 30 mg PO DAILY 90 days #90 tabs 10/05/23 tablet,extended release 24 hr furosemide 40 mg tablet (Lasix) 40 mg PO DAILY 90 days #90 tabs 11/18/23 diltiazem HCl 120 mg 120 mg PO DAILY #30 caps 04/07/24 capsule,extended release 24 hr metformin 500 mg tablet 500 mg PO DAILY 90 days #90 tabs 05/27/24 montelukast 10 mg tablet 10 mg PO BEDTIME #30 tabs 05/27/24 Allergies Allergy/AdvReac Type Severity Reaction Status Date / Time nicotine [Nicotine] Allergy Mild ITCHING Verified 06/15/24 20:59 WITH THE PATCHES topiramate Allergy Mild inadequealte Verified 06/15/24 20:59 response Review of Systems 2 Review of Systems: Yes all other systems are reviewed and are negative [facility] Past Medical History Medical History Influenza A Asthma with exacerbation Hypoglycemia associated with type 2 diabetes mellitus HTN (hypertension) Acute hypoxic respiratory failure CHF (congestive heart failure) NSTEMI (non-ST elevated myocardial infarction) Hypoxic respiratory failure Chronic lung disease Congestive heart failure Mild recurrent major depression Hospital discharge follow-up Severe chronic obstructive pulmonary disease Diabetes Mitral regurgitation Chest pain Lumbar degenerative disc disease Right lower lobe pneumonitis Congestive heart failure Acute and chronic respiratory failure with hypoxia Respiratory failure with hypoxia and hypercapnia Atelectasis, right Hypertensive emergency Pulmonary hypertension Osteoporosis Essential hypertension Supraventricular tachycardia Nonischemic cardiomyopathy Non-rheumatic mitral regurgitation Tobacco abuse Depression Anxiety Chronic respiratory failure HFrEF (heart failure with reduced ejection fraction) KELLIE (obstructive sleep apnea) HLD (hyperlipidemia) Surgical History H/O hysterectomy for benign disease History of total abdominal hysterectomy Bilateral ankle fractures Family History Family History Father No problems noted. 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 home services: Yes ([facility] 1 hr daily) Unable to assess alcohol history related to: Unable to respond Alcohol intake: never Patient Tobacco Use Status: Current someday Tobacco user Tobacco use type: Cigarette Cigarettes Per Day: 5 Years Smoked: 50 +/- Smoked in Last 30 Days: Yes e-Cigarette/Vaping Use: Never Used Second Hand Smoke Exposure: No Use of substances other than those prescribed or required for medical reasons: No Advance Directives: Yes Advance Directives on File: Yes Advance Directives Date on File: 05/18/23 Do you have a plan to hurt others: No Plan service: No Current occupational status: disabled Cognitive needs: Yes Hearing needs: No Vision needs: No Physical Exam 2 Vital Signs: Vital Signs: Last Vital Signs Temp 96.8 F 02/13/25 01:24 Pulse 75 06/16/24 01:24 Resp 16 06/16/24 01:24 BP 133/89 06/16/24 01:24 Pulse Ox 95 06/16/24 01:24 O2 Del Method Nasal Cannula 06/16/24 01:24 O2 Flow Rate 4 06/16/24 01:24 Oxygen Flow Rate 4 06/15/24 20:49 BMI result Body Mass Index 24.1 Const: Other: The patient is awake and alert. She looks like a frail older woman. She looks older than her age. She does not seem in obvious acute distress however. HEENT: Other: Face is symmetrical. Mucous membranes moist. Eyes: General: appearance normal, both eyes and all related structures Neck: Neck: Yes full ROM and Yes no JVD Resp: Other: Coarse air entry bilaterally. Possibly some mild crackles at the bases. No gross increased work of breathing. Cardio: Other: The patient was tachycardic when I first examined her. Her heart rate seemed somewhat irregular GI: Other: Abdomen is soft and nontender Skin: Other: Skin is dry and unremarkable Neuro: Other: The patient is awake and alert with a normal mental status. Cranial nerves are grossly intact. She moves her extremities symmetrically and appropriately. Extrem: Other: No peripheral edema Medications Administered Generic Name Dose Route Start Last Admin Trade Name Freq PRN Reason Stop Dose Admin Enoxaparin Sodium 40 mg 06/15/24 23:00 06/15/24 22:59 Enoxaparin Sodium 40 Mg/0.4 Ml Syringe SUBCUT 40 mg Q24H WALDEMAR Administration Sodium Chloride 3 ml 06/16/24 00:00 06/16/24 01:55 0.9 % Sodium Chloride Flush 3 Ml Syringe IVFLUSH Not Given QSHIFT WALDEMAR Discontinued Medications Generic Name Dose Route Start Last Admin Trade Name Freq PRN Reason Stop Dose Admin Diltiazem HCl 10 mg 06/15/24 22:03 06/15/24 22:59 Diltiazem Hcl 50 Mg/10 Ml Vial IVPUSH 06/15/24 22:04 Not Given STAT STA Furosemide 80 mg 06/15/24 22:04 06/15/24 22:10 Furosemide 100 Mg/10 Ml Vial IVPUSH 06/15/24 22:05 80 mg ONCE ONE Administration Protocol Potassium Chloride 40 meq 06/15/24 22:14 06/15/24 23:02 Potassium Chloride Packet 20 Meq Packet PO 06/15/24 22:15 Not Given ONCE ONE Potassium Chloride 20 meq 06/15/24 23:06 06/16/24 00:16 Potassium Chloride Er 20 Meq Tab.Er.Prt PO 06/15/24 23:07 20 meq ONCE ONE Administration Medical Decision Making Medical Decision Making [facility] Narrative: The patient is a 63-year-old woman who presented with a complaint of chest pain and shortness of breath and chest palpitations. She had an EKG that at 1st glance looks consistent with atrial fibrillation but on further inspection there seemed to be P waves with multiple complexes. The patient did not seem unstable although she was tachycardic initially. Her tachycardia initially resolved without treatment. However she then developed a tachycardia with a heart rate in the 160s which looked regular. She has a history of SVT. It was my impression the patient likely had another episode of SVT. I had ordered 10 mg of diltiazem to address her SVT but she had spontaneously converted back to a sinus rhythm. Her chest x-ray shows some degree of congestive heart failure and her BNP is somewhat higher than her most recent values. I think that she likely has some worsening congestive heart failure. She had a slightly higher oxygen requirement today. She was given 80 mg of IV furosemide and will be admitted to the hospitalist service. Lab Data 06/15/24 21:08 06/15/24 21:08 Labs: Lab Results 06/15/24 Range/Units 21:08 WBC 7.2 (4.8-10.8) X10*3/uL RBC 3.83 L (4.20-5.50) X10*6/uL Hgb 11.0 L (12.0-16.0) g/dl Hct 33.3 L (37.0-47.0) % MCV 86.9 (80.0-98.0) fL MCH 28.7 (27.0-33.0) pg MCHC 33.0 (31.0-35.0) g/dl RDW 14.7 (11.0-16.0) % Plt Count 157 L (160-400) X10*3/uL MPV 9.9 (9.4-12.3) fL Immature Gran % (Auto) 0.3 (0.0-0.4) % Neut % (Auto) 65.7 (45-73) % Lymph % (Auto) 27.3 (20-40) % [place] % (Auto) 5.8 (2-11) % Eos % (Auto) 0.8 (0-4) % Baso % (Auto) 0.1 (0-2) % Lymph # (Auto) 2.0 (1.2-4.9) X10*3/uL [place] # (Auto) 0.4 (0.1-1.2) X10*3/uL Eos # (Auto) 0.1 (0.0-0.4) X10*3/uL Baso # (Auto) 0.0 (0.0-0.2) X10*3/uL Abs Immat Gran (auto) 0.02 (0.00-0.03) X10*3/uL Absolute Neuts (auto) 4.7 (2.0-8.3) x10*3/uL Absolute Nucleated RBC 0.000 (0.0-0.012) X10*3/uL Nucleated RBC % (auto) 0.0 (0.0-0.2) /100WBC PT 11.3 (10.9-12.4) SEC INR 1.0 (0.9-1.1) Sodium 144 (135-145) mmol/L Potassium 3.1 L (3.3-5.1) mmol/L Chloride 106 (96-108) mmol/L Carbon Dioxide 26 (22-29) mmol/L Anion Gap 15 (12-20) BUN 19 H (9-16) mg/dL Creatinine 1.19 (0.5-1.4) mg/dL Estim Creat Clear Calc 36.7 Estimated GFR 46 Random Glucose 193 H (60-115) mg/dL Calcium 8.9 (8.4-10.2) mg/dL Total Bilirubin 0.2 (0.0-1.0) mg/dL AST 24 (5-31) U/L ALT 16 (0-31) U/L Alkaline Phosphatase 117 (39-117) U/L Troponin I High Sens 17.8 H (<3.5-17.0) ng/L B-Natriuretic Peptide 492 H (<100) pg/mL Total Protein 7.6 (6.5-8.0) g/dL Albumin 4.0 (3.5-5.0) g/dL Influenza Type A (PCR) NEGATIVE (Negative) Influenza Type B (PCR) NEGATIVE (Negative) RSV RNA Qual (PCR) NEGATIVE (Negative) SARS-CoV-2 RNA (RT-PCR) NEGATIVE (Negative) Independent Interpretation I performed an independent interpretation of an: EKG Interpretation: EKG at 05/23/2000 shows an irregular rhythm at a rate of 111 beats per minute. Initially this looked like atrial fibrillation however on further consideration there seemed to be P waves and some complexes, suggesting this might be sinus tachycardia with multiple premature supraventricular and ventricular complexes. Discharge Plan Discharge Clinical Impression: Congestive heart failure, Supraventricular tachycardia Patient Disposition: Admitted As Inpatient Interventions: Admission Worksheet (ED) Last Done: 06/15/24 23:55 Discharge Date/Time: 06/16/24 00:45
[2024-06-15 21:14] LABS: Basophils Percent Auto 0.1 % (0-2); Eosinophils Absolute Auto 0.1 X10*3/uL (0.0-0.4); Eosinophils Percent Auto 0.8 % (0-4); Hematocrit 33.3 % (37.0-47.0); Imm Gran Abs Auto 0.02 X10*3/uL (0.00-0.03); Imm Gran Pct Auto 0.3 % (0.0-0.4); Lymphocytes Percent Auto 27.3 % (20-40); Mean Corpuscular Hemoglobin 28.7 pg (27.0-33.0); Mean Corpuscular Volume 86.9 fL (80.0-98.0); Mean Platelet Volume 9.9 fL (9.4-12.3); Monocytes Absolute Auto 0.4 X10*3/uL (0.1-1.2); Monocytes Percent Auto 5.8 % (2-11); Neutrophils Absolute Auto 4.7 x10*3/uL (2.0-8.3); Neutrophils Percent Auto 65.7 % (45-73); Platelet Count 157 X10*3/uL (160-400); Red Blood Count 3.83 X10*6/uL (4.20-5.50); Red Cell Distribution Width 14.7 % (11.0-16.0); White Blood Count 7.2 X10*3/uL (4.8-10.8)
[2024-06-15 21:33] LABS: B Type Natriuretic Peptide 492 pg/mL (<100)
[2024-06-15 21:36] LABS: Alanine Aminotransferase 16 U/L (0-31); Alkaline Phosphatase 117 U/L (39-117); Anion Gap 15 (12-20); Aspartate Amino Transferase 24 U/L (5-31); Bilirubin Total 0.2 mg/dL (0.0-1.0); Blood Urea Nitrogen 19 mg/dL (9-16); Calcium 8.9 mg/dL (8.4-10.2); Carbon Dioxide 26 mmol/L (22-29); Chloride 106 mmol/L (96-108); Creatinine Clr Calc Pharmacy 36.7; Estimated Glomerular Filt Rate 46; Glucose Random 193 mg/dL (60-115); Potassium 3.1 mmol/L (3.3-5.1); Sodium 144 mmol/L (135-145); Total Protein 7.6 g/dL (6.5-8.0)
[2024-06-15 21:37] LABS: Prothrombin Time 11.3 SEC (10.9-12.4)
[2024-06-15 21:43] LABS: Troponin-I High Sensitivity 17.8 ng/L (<3.5-17.0)
[2024-06-15 21:50] LABS: Influenza A PCR NEGATIVE (Negative); Influenza B PCR NEGATIVE (Negative); Resp Syncy Virus RNA Qual PCR NEGATIVE (Negative); SARS COV2 PCR INHOUSE NEGATIVE (Negative)
--- NOTE | 2024-06-15 22:04 | ECG_ITS ---
Test Reason : tachycardia Blood Pressure : */* mmHG Vent. Rate : 165 BPM Atrial Rate : * BPM P-R Int : * ms QRS Dur : 124 ms QT Int : 280 ms P-R-T Axes : * 36 -67 degrees QTcB Int : 463 ms Supraventricular tachycardia Right bundle branch block T wave abnormality, consider inferior ischemia Abnormal ECG When compared with ECG of 15-Jun-2024 21:01, Supraventricular tachycardia has replaced Sinus rhythm with Premature atrial complexes Referred By: Esteban Enciso Electronically Signed By: KEVIN ODELL MD
[2024-06-15 22:10] VITALS: BP 120/65
[2024-06-15] MEDS: Furosemide 100 MG/10 ML VIAL 80 MG IVPUSH (22:10)
[2024-06-15 22:20] VITALS: PULSE 93; RESP 16; O2SAT 95
--- NOTE | 2024-06-15 22:20 | PC.NURSE ---
pt was in 150s on heart monitor, ekg obtained. dilt ivp ordered by . upon entering room HR 90s-100. dilt held at this time. md aware.
[2024-06-15 22:21] VITALS: PULSE 93
--- NOTE | 2024-06-15 22:36 | PM.IMHP ---
History of Present Illness Date of Service: 06/15/24 Attending physician on admission: Lexie Ruggiero Chief Complaint: Chest pain and SOB Pt is a 63-year-old female with a PMH significant for?HFrEF (EF 30-35%), COPD with chronic hypoxemic respiratory failure on 4L home O2, pulmonary hypertension, [id number] type 2 diabetes, HTN, HLD, and hx of SVT who presents to the ED with?chest pain, SOB, and palpitations since this afternoon. Chest pain is centrally located and radiating to left side and down left arm, and is sharp and stabbing in nature. Pt experienced similar symptoms approximately a month ago which lasted around an hour and then went away. Symptoms to say persisted and were worse than normal which prompted her visit to the ED. pt also complains of headache. No fever, chills, nausea, vomiting, abdominal pain. Reports has been taking her medications. Denies orthopnea or lower leg edema above baseline. Of note, pt went into likely SVT with rates as high as 160s to 170s, though pt converted to normal rate and rhythm before any intervention was taken. In the ED pt was tachycardic up to 122, tachypneic up to 24, and satting at 86% on home 4 L NC. Labs were significant for potassium 3.1, initial troponin 17.8, and BNP 492. No leukocytosis. Stable normocytic anemia. Renal function WNL. Tested negative for flu, COVID, RSV. CXR showed cardiomegaly with findings of pulmonary venous congestion. Initial EKG demonstrated sinus tachycardia with PVCs and RBBB. Repeat EKG showed likely SVT with rate of 165. Pt was treated with furosemide 80 mg IV. Pt will be admitted to the hospital for treatment and further evaluation of acute CHF exacerbation secondary to SVT. Review of Systems Review of Systems: Negative except for that which is stated in the [facility] Medical History Influenza A Asthma with exacerbation Hypoglycemia associated with type 2 diabetes mellitus HTN (hypertension) Acute hypoxic respiratory failure CHF (congestive heart failure) NSTEMI (non-ST elevated myocardial infarction) Hypoxic respiratory failure Chronic lung disease Congestive heart failure Mild recurrent major depression Hospital discharge follow-up Severe chronic obstructive pulmonary disease Diabetes Mitral regurgitation Chest pain Lumbar degenerative disc disease Right lower lobe pneumonitis Congestive heart failure Acute and chronic respiratory failure with hypoxia Respiratory failure with hypoxia and hypercapnia Atelectasis, right Hypertensive emergency Pulmonary hypertension Osteoporosis Essential hypertension Supraventricular tachycardia Nonischemic cardiomyopathy Non-rheumatic mitral regurgitation Tobacco abuse Depression Anxiety Chronic respiratory failure HFrEF (heart failure with reduced ejection fraction) KELLIE (obstructive sleep apnea) HLD (hyperlipidemia) Family History Father No problems noted. Mother Liver cancer Hypertension Surgical History H/O hysterectomy for benign disease History of total abdominal hysterectomy Bilateral ankle fractures Social History Household Members: None Household Members Other:: 1 Housing: House Do you presently have visiting nurse or other home services: Yes (aid comes 2 hours a day) Unable to assess alcohol history related to: Unable to respond Alcohol intake: never Patient Tobacco Use Status: Current everyday Tobacco user Tobacco use type: Cigarette Cigarettes Per Day: 5 Years Smoked: 50 +/- Smoked in Last 30 Days: Yes e-Cigarette/Vaping Use: Never Used Patient Interested in Nicotine Replacement: No Patient Given Instructions on How to Stop Smoking: Yes Date Education Initiated: 06/16/24 Second Hand Smoke Exposure: No Use of substances other than those prescribed or required for medical reasons: No Have you been hit, kicked, punched, or otherwise hurt by someone within the past year? If so, by whom?: No Do you feel safe in your current relationship?: No Is there a partner from a previous relationship who is making you feel unsafe now?: No Are you made to feel afraid or neglected: No Advance Directives: Yes Advance Directives on File: Yes Advance Directives Date on File: 05/18/23 Do you have a plan to hurt others: No Plan Recently lost weight without trying: No Eating poorly because of decreased appetite: No Patient : No service: No Current occupational status: disabled Cognitive needs: Yes Hearing needs: No Vision needs: No Meds Allergies Allergy/AdvReac Type Severity Reaction Status Date / Time nicotine [Nicotine] Allergy Mild ITCHING Verified 06/15/24 20:59 WITH THE PATCHES topiramate Allergy Mild inadequealte Verified 06/15/24 20:59 response Active Medications: Current Medications Acetaminophen (Acetaminophen 325 Mg Tablet) 650 mg PO Q6H PRN PRN Reason: Pain, Mild 1-3,fever,headache Calcium Carbonate (Calcium Carbonate 750 Mg Tab.Chew) 750 mg PO Q4H PRN PRN Reason: Heartburn Enoxaparin Sodium (Enoxaparin Sodium 40 Mg/0.4 Ml Syringe) 40 mg SUBCUT Q24H [facility] Magnesium Hydroxide (Milk Of Magnesia 30 Ml Oral.Susp) 30 ml PO DAILY PRN PRN Reason: Constipation Melatonin (Melatonin 3 Mg Tablet) 6 mg PO BEDTIME PRN PRN Reason: Insomnia Ondansetron HCl (Ondansetron Hcl 4 Mg/2 Ml Vial) 4 mg IVPUSH Q8H PRN PRN Reason: Nausea and Vomiting Sodium Chloride (0.9 % Sodium Chloride Flush 3 Ml Syringe) 3 ml IVFLUSH QSHIFT [facility] Home Medications ?Medication ?Instructions ?Recorded ?Confirmed ?Last Taken ?Type albuterol sulfate 90 mcg/actuation 2 puff inhalation Q4-6H PRN 04/30/23 04/07/24 05/25/23 History aerosol inhaler (Ventolin HFA) Shortness Of Breath Or Wheezing sertraline 100 mg tablet 200 mg PO DAILY 04/30/23 04/07/24 05/25/23 History tiotropium bromide 18 mcg capsule 1 cap inhalation DAILY 04/30/23 04/07/24 05/25/23 History with inhalation device (Spiriva with HandiHaler) losartan 50 mg tablet 100 mg PO DAILY 06/21/23 04/07/24 Unknown History Physical Exam Vital Signs and Narrative: Vital Signs: Last Vital Signs Temp 98.5 F 06/15/24 20:49 Pulse 93 06/15/24 22:20 Resp 16 06/15/24 22:20 BP 120/65 06/15/24 22:10 Pulse Ox 95 06/15/24 22:20 O2 Del Method Nasal Cannula 06/15/24 22:20 O2 Flow Rate 4 06/15/24 22:20 Oxygen Flow Rate 4 06/15/24 20:49 BMI result Body Mass Index 24.1 General: AOx3, no acute distress Resp: CTA bilaterally CVS: S1, S2, RRR GI: +BS, NT, no distention Skin: Warm, dry Neuro: Cranial nerves II-XII grossly intact bilaterally. Motor grossly intact bilaterally Extremities: Trace bilateral pitting edema Psych: Appropriate affect Results Labs 06/15/24 21:08 06/15/24 21:08 Labs: Laboratory Results - last 24 hr 06/15/24 21:08 MCV 86.9 MCH 28.7 MCHC 33.0 RDW 14.7 Plt Count 157 L MPV 9.9 Immature Gran % (Auto) 0.3 Neut % (Auto) 65.7 Lymph % (Auto) 27.3 [place] % (Auto) 5.8 Eos % (Auto) 0.8 Baso % (Auto) 0.1 Lymph # (Auto) 2.0 [place] # (Auto) 0.4 Eos # (Auto) 0.1 Baso # (Auto) 0.0 Abs Immat Gran (auto) 0.02 Absolute Neuts (auto) 4.7 Absolute Nucleated RBC 0.000 Nucleated RBC % (auto) 0.0 PT 11.3 INR 1.0 Anion Gap 15 Estim Creat Clear Calc 36.7 Estimated GFR 46 Random Glucose 193 H Calcium 8.9 Total Bilirubin 0.2 AST 24 ALT 16 Alkaline Phosphatase 117 B-Natriuretic Peptide 492 H Total Protein 7.6 Albumin 4.0 Influenza Type A (PCR) NEGATIVE Influenza Type B (PCR) NEGATIVE RSV RNA Qual (PCR) NEGATIVE SARS-CoV-2 RNA (RT-PCR) NEGATIVE Assessment and Plan (1) Congestive heart failure: Qualifiers: Heart failure chronicity: acute Heart failure type: systolic Qualified Code(s): I50.21 - Acute systolic (congestive) heart failure Status: Acute Plan Pt is a 63-year-old female with a PMH significant for?HFrEF (EF 30-35%), COPD with chronic hypoxemic respiratory failure on 4L home O2, pulmonary hypertension, [id number] type 2 diabetes, HTN, HLD, and hx of SVT who presents to the ED with?chest pain, SOB, and palpitations since this afternoon. Pt will be admitted to the hospital for treatment and further evaluation of acute CHF exacerbation secondary to SVT. Acute HFrEF exacerbation Pt with increased SOB, CXR with pulmonary venous congestion, elevated BNP Likely secondary to SVT Pt given furosemide 80 mg IV in the ED Will treat with Lasix 40 mg IV daily Echocardiogram Follow I/O, daily weights, lytes Low-salt diet Monitor on telemetry Palpitations Pt noted to be in likely SVT as high as 160-170s Self converted without intervention in the ED Continue home diltiazem Monitor on telemetry COPD Not in acute exacerbation Continue home inhalers, chronic prednisone Continue chronic supplemental O2 4L NC Klz-[id number] type [address] on sliding scale insulin, diabetic diet Mood disorder Continue quetiapine, and sertraline Full Code Attending:?Dr. Ruggiero DVT Prophylaxis: Lovenox Pt will require a hospitalization of at least two nights for treatment of?acute CHF exacerbation in the setting of likely SVT that will require IV diuresing and close monitoring of cardiac function and electrolytes. Quality Stroke Does the patient have a stroke diagnosis?: No VTE Prior VTE?: No VTE Risk Level:: Medical - moderate - high VTE Device Contraindication: Treatment Not Indicated VTE Drug Contraindication: N/A - Med Ordered
[2024-06-15] MEDS: Enoxaparin Sodium 40 MG/0.4 ML SYRINGE SUBCUT (22:59)
[2024-06-15 23:56] LABS: Troponin-I High Sensitivity 23.1 ng/L (<3.5-17.0)
[2024-06-16] VITALS (10 sets, daily range): BP systolic 110–143; BP diastolic 57–90; PULSE 75–102; RESP 16–20; TEMP 36–37; O2SAT 92–98; BMI 25.3
[2024-06-16] MEDS: Potassium Chloride ER 20 MEQ TAB.ER.PRT PO (00:16)
--- NOTE | 2024-06-16 07:00 | CA_ITS ---
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 Mildly reduced LV ejection fraction 45-50% with mild LVH with impaired relaxation filling pattern 2. Mild mitral regurgitation 3. Mildly elevated right ventricular systolic pressure 4. No gross pericardial effusion Findings Procedure Information The study quality is limited by the patients inability to tolerate the test. Left Ventricle The left ventricle was not well visualized. Normal left ventricular cavity size. There is mildly increased left ventricular wall thickness. The left ventricular systolic function is mildly decreased. The visually estimated ejection fraction is between 45-50%. Regional wall motion abnormalities can not be excluded due to suboptimal endocardial definition. Spectral Doppler is indicative of an impaired relaxation filling pattern. Right Ventricle Mildly increased right ventricular cavity size. There is normal right ventricular systolic function. Atria The left atrium is mildly dilated. There is no evidence of interatrial shunt. The right atrium was not well visualized. Aortic Valve Normal aortic valve structure and function. There is no aortic valve stenosis. There is no aortic valve regurgitation. Mitral Valve There is mild anterior and posterior mitral leaflet thickening. There is mild mitral valve regurgitation. There is no mitral valve stenosis. Pulmonic Valve The pulmonic valve was not well visualized. Tricuspid Valve There is mild to moderate tricuspid valve regurgitation. Normal right atrial pressure. Mild pulmonary hypertension is present. Great Vessels The aorta was not well visualized. The pulmonary artery was not well visualized. Venous The inferior vena cava is normal in size and collapses greater than 50% with inspiration. Pericardium/Pleural There is no evidence of pericardial effusion. Prior Study Comparison Changes noted compared to prior study dated: 06/09/2023. LV function Mibi marginally reduced. LV wall thickness appears to be only mildly increased Measurements 2D Linear Measurements IVSd: 1.18 0.6-0.9/0.6-1.0 cm LVIDd: 4.78 3.9-5.3/4.2-5.9 cm LVIDd Index: 3.17 2.4-3.2/2.2-3.1 cm/m2 LVIDs: 3.19 2.0-3.6 cm LVPWd: 0.98 0.7-1.1 cm LA Diam: 4.20 2.7-3.8/3.0-4.0 cm LAIDs Index: 2.78 1.5-2.3 cm/m2 LV Mass: 234.19 67-162/88-224 g LV Mass Index: 155.09 43-95/49-115 g/m2 LVOT Diam: 2.20 3.0+(-)1.3 cm 2D Systolic Function EF 4C: 43.70 >55% EF 2C: 49.50 >55% EF BiP: 47.40 >55% Mitral Valve E'Lateral: 2.83 E'Medial: 2.72 Aortic Valve AoV Pk Ambrosio: 0.69 AoV Mn Ambrosio: 0.47 AoV VTI: 0.12 AoV Pk Grad: 2.00 Aov Mn Grad: 1.00 PEPITO Cont.VTI: 2.63 LVOT LVOT Pk Ambrosio: 0.48 LVOT Mn Ambrosio: 0.29 LVOT VTI: 0.09 LVOT Pk Grad: 1.00 LVOT Mn Grad: 0.00 LVOT Diam: 2.20 LVOT Area: 3.80 Diastolic Function E'Medial: 2.72 E' Laterial: 2.83 Right Ventricle TAPSE (mm): 23.40 TVS' Ambrosio: 23.30 Tricuspid Valve TR Pk Ambrosio: 3.21 TR Pk Grad: 41.00 RA Press: 3.00 RVSP: 44.00 Great Vessels Aorta Sinus of Valsalva: 3.25 2.0-3.5 cm Ao Asc: 3.90 2.1-3.4 cm Updated in Other Vendor System with Status of Final Bhupendra Germain MD electronically signed on 06/16/2024 4:48:01 PM with status of Final
[2024-06-16 07:05] LABS: Hematocrit 35.2 % (37.0-47.0); Hemoglobin 11.1 g/dl (12.0-16.0); Mean Corpuscular HGB Conc 31.5 g/dl (31.0-35.0); Mean Corpuscular Volume 88.7 fL (80.0-98.0); Mean Platelet Volume 10.1 fL (9.4-12.3); Platelet Count 155 X10*3/uL (160-400); Red Blood Count 3.97 X10*6/uL (4.20-5.50); Red Cell Distribution Width 14.9 % (11.0-16.0); White Blood Count 9.4 X10*3/uL (4.8-10.8)
[2024-06-16 07:30] LABS: Anion Gap 13 (12-20); Blood Urea Nitrogen 20 mg/dL (9-16); Calcium 9.1 mg/dL (8.4-10.2); Carbon Dioxide 30 mmol/L (22-29); Chloride 107 mmol/L (96-108); Creatinine Clr Calc Pharmacy 43.5; Estimated Glomerular Filt Rate 54; Glucose Random 116 mg/dL (60-115); Potassium 4.6 mmol/L (3.3-5.1); Sodium 145 mmol/L (135-145)
[2024-06-16 07:54] LABS: Glucose, Whole Blood 116 mg/dL (60-115)
[2024-06-16] MEDS: Furosemide 40 MG/4 ML VIAL IVPUSH (10:34)
[2024-06-16] MEDS: 0.9 % Sodium Chloride Flush 3 ML SYRINGE IVFLUSH ×3 (10:34→21:41)
--- NOTE | 2024-06-16 10:44 | MHC.CM.PN ---
Pt lives alone, she has home care services of a [employer], 2 hrs a day and a nurse that visits her about once a month. For DME: she has a walker, Home O2, Diabetic supplies and BP machine. HCP in on file and confirmed: Luiza Walton, PCP is confirmed: Analisa Chavez. Pt will need assistance with transport home at DC, DCP: home with services. CM to follow for DC needs.
[2024-06-16 11:03] LABS: Glucose, Whole Blood 142 mg/dL (60-115)
--- NOTE | 2024-06-16 11:44 | PM.CNCAR ---
History of Present Illness History of Present Illness Date of Service: 06/16/24 Requesting physician: Ashutosh Card Consult reason: congestive heart failure and other (SVT) Chief complaint: dyspnea Narrative: I was consulted to see Paola in cardiology consultation today for if symptomatic SVT with heart failure as well as chest discomfort. History was obtained with help of supervisor irrigation. Patient with prior chronic respiratory failure, hypoxemic related to underlying COPD using 4 L of oxygen at home with persistent smoking, history of heart failure with prior reduced ejection fraction last echocardiogram last June showing low normal LV EF of 51% with severe left ventricular hypertrophy, history of hypertension, diabetes, no history of known coronary artery disease as per her. She has never been worked up. She denies any myocardial infarction. She came to the hospital with sudden-onset palpitations with severe chest tightness pressure and difficulty in breathing. She said she was almost dying. She came to the hospital and was initially noted to be in sinus rhythm with short runs of SVT and subsequently went to SVT with significant symptoms. She was then given rate control and converted to sinus rhythm. She was also diuresed and since then she has improved significantly. She says she does not have any chest tightness anymore. Her troponin were minimally elevated. BNP was 492. Her EKG shows sinus rhythm with right bundle-branch block. Last May she was admitted with acute respiratory failure hypoxemic most likely related to COPD exacerbation at that time had NSTEMI. Review of Systems Constitutional: Constitutional: Reports no additional constitutional complaints Cardiovascular: Cardiovascular: Reports chest pain at rest, Denies chest pain with activity, Denies leg edema, Denies lightheadedness, Denies Loss of Consciousness, Reports palpitations, Reports dyspnea on exertion and Denies orthopnea Respiratory: Respiratory: Reports dyspnea on exertion and Reports wheezing Genitourinary: Genitourinary: Reports no additional female genitourinary complaints Musculoskeletal: Musculoskeletal: Reports no additional musculoskeletal complaints Integumentary/Breasts: Skin/Breast: Reports system reviewed and no additional complaints, except as docu Psychiatric: Psychiatric: Reports no additional psychiatric complaints Endocrine: Endocrine: Reports palpitations Hematologic/Lymphatic: Hematologic/Lymphatic: Reports no additional hematologic/lymphatic complaints Allergic/Immunologic: Allergic/Immunologic: Reports wheezing PMFSH Past Medical History Medical History Influenza A Asthma with exacerbation Hypoglycemia associated with type 2 diabetes mellitus HTN (hypertension) Acute hypoxic respiratory failure CHF (congestive heart failure) NSTEMI (non-ST elevated myocardial infarction) Hypoxic respiratory failure Chronic lung disease Congestive heart failure Mild recurrent major depression Hospital discharge follow-up Severe chronic obstructive pulmonary disease Diabetes Mitral regurgitation Chest pain Lumbar degenerative disc disease Right lower lobe pneumonitis Congestive heart failure Acute and chronic respiratory failure with hypoxia Respiratory failure with hypoxia and hypercapnia Atelectasis, right Hypertensive emergency Pulmonary hypertension Osteoporosis Essential hypertension Supraventricular tachycardia Nonischemic cardiomyopathy Non-rheumatic mitral regurgitation Tobacco abuse Depression Anxiety Chronic respiratory failure HFrEF (heart failure with reduced ejection fraction) KELLIE (obstructive sleep apnea) HLD (hyperlipidemia) Family History Family History Father No problems noted. Mother Liver cancer Hypertension Surgical History Surgical History H/O hysterectomy for benign disease History of total abdominal hysterectomy Bilateral ankle fractures Social History Social History Household Members: None Household Members Other:: 1 Housing: House Do you presently have visiting nurse or other home services: Yes (aid comes 2 hours a day) Unable to assess alcohol history related to: Unable to respond Alcohol intake: never Patient Tobacco Use Status: Current everyday Tobacco user Tobacco use type: Cigarette Cigarettes Per Day: 5 Years Smoked: 50 +/- Smoked in Last 30 Days: Yes e-Cigarette/Vaping Use: Never Used Patient Interested in Nicotine Replacement: No Patient Given Instructions on How to Stop Smoking: Yes Date Education Initiated: 06/16/24 Second Hand Smoke Exposure: No Use of substances other than those prescribed or required for medical reasons: No Currently Displaying Signs/Symptoms of Drug Intoxication Withdrawal: No Have you been hit, kicked, punched, or otherwise hurt by someone within the past year? If so, by whom?: No Do you feel safe in your current relationship?: No Is there a partner from a previous relationship who is making you feel unsafe now?: No Are you made to feel afraid or neglected: No Advance Directives: Yes Advance Directives on File: Yes Advance Directives Date on File: 05/18/23 Do you have a plan to hurt others: No Plan Recently lost weight without trying: No Eating poorly because of decreased appetite: No Patient : No service: No Current occupational status: disabled Cognitive needs: Yes Hearing needs: No Vision needs: No Meds Allergies Allergy/AdvReac Type Severity Reaction Status Date / Time nicotine [Nicotine] Allergy Mild ITCHING Verified 06/15/24 20:59 WITH THE PATCHES topiramate Allergy Mild inadequealte Verified 06/15/24 20:59 response Active Medications: Current Medications Acetaminophen (Acetaminophen 325 Mg Tablet) 650 mg PO Q6H PRN PRN Reason: Pain, Mild 1-3,fever,headache Calcium Carbonate (Calcium Carbonate 750 Mg Tab.Chew) 750 mg PO Q4H PRN PRN Reason: Heartburn Dextrose (Dextrose 50 % 25 Gm/50 Ml Syringe) 25 gm IVPUSH Q15M PRN; Protocol PRN Reason: per Hypoglycemia Standing Ord. Diltiazem HCl (Diltiazem Hcl Cd 240 Mg Cap.Er.Deg) 240 mg PO DAILY [facility]; Protocol Empagliflozin (Empagliflozin 10 Mg Tablet) 10 mg PO DAILY [facility] Enoxaparin Sodium (Enoxaparin Sodium 40 Mg/0.4 Ml Syringe) 40 mg SUBCUT Q24H [facility] Last Admin: 06/15/24 22:59 Dose: 40 mg Furosemide (Furosemide 40 Mg Tablet) 40 mg PO DAILY [facility]; Protocol Glucose (Glucose Gel 15 Gm Gel..Gram.) 15 gm PO Q15M PRN; Protocol PRN Reason: per Hypoglycemia Standing Ord. Insulin Human Lispro (Insulin Lispro 100 Unit/Ml 3 Ml Vial) 0 unit SUBCUT QIDACHS [facility]; Protocol Last Admin: 06/16/24 07:56 Dose: Not Given Magnesium Hydroxide (Milk Of Magnesia 30 Ml Oral.Susp) 30 ml PO DAILY PRN PRN Reason: Constipation Melatonin (Melatonin 3 Mg Tablet) 6 mg PO BEDTIME PRN PRN Reason: Insomnia Ondansetron HCl (Ondansetron Hcl 4 Mg/2 Ml Vial) 4 mg IVPUSH Q8H PRN PRN Reason: Nausea and Vomiting Sodium Chloride (0.9 % Sodium Chloride Flush 3 Ml Syringe) 3 ml IVFLUSH QSHIFT [facility] Last Admin: 06/16/24 10:34 Dose: 3 ml Home Medications ?Medication ?Instructions ?Recorded ?Confirmed ?Last Taken ?Type albuterol sulfate 90 mcg/actuation 2 puff inhalation Q4-6H PRN 04/30/23 04/07/24 05/25/23 History aerosol inhaler (Ventolin HFA) Shortness Of Breath Or Wheezing sertraline 100 mg tablet 200 mg PO DAILY 04/30/23 04/07/24 05/25/23 History tiotropium bromide 18 mcg capsule 1 cap inhalation DAILY 04/30/23 04/07/24 05/25/23 History with inhalation device (Spiriva with HandiHaler) losartan 50 mg tablet 100 mg PO DAILY 06/21/23 04/07/24 Unknown History amlodipine 5 mg tablet mg DAILY 06/16/24 Unknown History atorvastatin 10 mg tablet 10 mg PO DAILY 06/16/24 Unknown History omeprazole 20 mg capsule,delayed 40 mg PO DAILY 06/16/24 Unknown History release sennosides 8.6 mg tablet (senna) 8.6 mg PO DAILY 06/16/24 Unknown History spironolactone 25 mg tablet 25 mg PO DAILY 06/16/24 Unknown History trazodone 50 mg tablet 50 - 100 mg PO BEDTIME 06/16/24 Unknown History Physical Exam Vital Signs: Vital Signs: Last Vital Signs Temp 97.5 F 06/16/24 08:00 Pulse 102 H 06/16/24 08:00 Resp 17 06/16/24 08:00 BP 123/80 06/16/24 10:34 Pulse Ox 94 06/16/24 08:00 O2 Del Method Room Air 06/16/24 08:00 O2 Flow Rate 5 06/16/24 04:00 Oxygen Flow Rate 4 06/15/24 20:49 BMI result Body Mass Index 25.3 Const: General: cooperative, comfortable, alert and awake Nutritional Appearance: average body habitus Orientation/consciousness: patient oriented x3 HEENT: Head: Yes normocephalic and Yes atraumatic Neck: Neck: Yes trachea midline, Yes supple and Yes no JVD Resp: Effort & Inspection: normal respiratory effort Auscultation: no rales, no wheezes and diminished lung sounds Cardio: Jugular venous distension: no JVD Rate: regular rate Rhythm: regular rhythm Heart sounds: S1 normal heart sound present, S2 normal heart sound present, no click, no gallops, no murmurs and no rubs GI: Auscultation: normal bowel sounds Skin: General skin exam: no rashes or lesions noted and ecchymosis Neuro: General: patient oriented x3 and no focal motor deficits Extrem: General: Yes no clubbing, cyanosis or edema Objective Labs and Meds 06/16/24 06:55 06/16/24 06:55 Lab results: Laboratory Results - last 24 hr 06/15/24 06/15/24 06/16/24 21:08 23:30 06:55 WBC 7.2 9.4 RBC 3.83 L 3.97 L Hgb 11.0 L 11.1 L Hct 33.3 L 35.2 L MCV 86.9 88.7 MCH 28.7 28.0 MCHC 33.0 31.5 RDW 14.7 14.9 Plt Count 157 L 155 L MPV 9.9 10.1 Immature Gran % (Auto) 0.3 Neut % (Auto) 65.7 Lymph % (Auto) 27.3 Zapata % (Auto) 5.8 Eos % (Auto) 0.8 Baso % (Auto) 0.1 Lymph # (Auto) 2.0 [place]apata # (Auto) 0.4 Eos # (Auto) 0.1 Baso # (Auto) 0.0 Abs Immat Gran (auto) 0.02 Absolute Neuts (auto) 4.7 Absolute Nucleated RBC 0.000 0.000 Nucleated RBC % (auto) 0.0 0.0 PT 11.3 INR 1.0 Sodium 144 145 Potassium 3.1 L 4.6 D Chloride 106 107 Carbon Dioxide 26 30 H Anion Gap 15 13 BUN 19 H 20 H Creatinine 1.19 1.03 Estim Creat Clear Calc 36.7 43.5 Estimated GFR 46 54 POC Glucose Random Glucose 193 H 116 H Calcium 8.9 9.1 Total Bilirubin 0.2 AST 24 ALT 16 Alkaline Phosphatase 117 Troponin I High Sens 17.8 H 23.1 H B-Natriuretic Peptide 492 H Total Protein 7.6 Albumin 4.0 Influenza Type A (PCR) NEGATIVE Influenza Type B (PCR) NEGATIVE RSV RNA Qual (PCR) NEGATIVE SARS-CoV-2 RNA (RT-PCR) NEGATIVE 06/16/24 06/16/24 07:43 10:55 WBC RBC Hgb Hct MCV MCH MCHC RDW Plt Count MPV Immature Gran % (Auto) Neut % (Auto) Lymph % (Auto) Zapata % (Auto) Eos % (Auto) Baso % (Auto) Lymph # (Auto) Zapata # (Auto) Eos # (Auto) Baso # (Auto) Abs Immat Gran (auto) Absolute Neuts (auto) Absolute Nucleated RBC Nucleated RBC % (auto) PT INR Sodium Potassium Chloride Carbon Dioxide Anion Gap BUN Creatinine Estim Creat Clear Calc Estimated GFR POC Glucose 116 H 142 H Random Glucose Calcium Total Bilirubin AST ALT Alkaline Phosphatase Troponin I High Sens B-Natriuretic Peptide Total Protein Albumin Influenza Type A (PCR) Influenza Type B (PCR) RSV RNA Qual (PCR) SARS-CoV-2 RNA (RT-PCR) Assessment and Plan (1) Supraventricular tachycardia: Status: Acute Symptomatic supraventricular tachycardia in this middle-aged woman with underlying severe COPD causing heart failure most likely due to her significant diastolic dysfunction and LVH. Clinically she was improved since control of SVT. She would need a rate lowering therapy to control her SVT. If not control will require EP evaluation. Would start on Cardizem CD 240 mg to prevent recurrent SVT episodes. Also switch her bronchodilators to pulmonary specific bronchodilators such as Xopenex. Complete smoking cessation was advised. (2) Congestive heart failure: Qualifiers: Heart failure type: systolic Heart failure chronicity: acute Qualified Code(s): I50.21 - Acute systolic (congestive) heart failure Status: Acute Congestive heart failure related to SVT. Requires treatment of SVT as above. Would also treat her with low-dose Lasix 20 mg daily on a long-term basis as well as add Jardiance 10 mg to regimen. She need ischemic workup as an outpatient. Complete smoking cessation was advised. Significant LVH out of proportion to her hypertension, suggest possible underlying infiltrative disorder may require workup as an outpatient. (3) Elevated troponin: Status: Acute Elevated troponin suggestive of possible underlying coronary disease in the setting of SVT. She was multiple risk factors for the same. I would advise her to be started on statin therapy. Also consider aspirin therapy. Continue aggressive blood pressure control and control of SVT as above. Complete smoking cessation was advised consider Chantix therapy. Outpatient myocardial perfusion imaging will be performed. Will follow up in the clinic after testing. Procedures Date of Service Date of Service: 06/16/24
--- NOTE | 2024-06-16 12:16 | PHA.MEDREC ---
Addendum entered by Aneudy Young [facility] 06/16/24 12:46: Reviewed by [facility], Will let provider know we could not confirm Duoneb, Spiriva, & Cardizem. Original Note: Pharmacy Consult ? Medication Reconciliation Pharmacy has completed the medication reconciliation. Spoke to patient through franchise sales director service (Carola) to confirm med list, however patient is a poor historian. Patient states she doesn't know what medications she takes and she lives alone. Reached out to HCP patients rony Sharp, Left message. Utilized list from [facility] to confirm med list. Couldn't confirm Cardizem CD 120 mg, last filled 04/14/24 for 30 days not sure if patient is still taking.
--- NOTE | 2024-06-16 14:03 | MHC.CM.PN ---
Addendum entered by Sydney Mora 06/16/24 14:56: Nurse from [facility] is Negro: [phone], PN and PT eval faxed today to: [phone], Pt to DC home via [facility] who is contracted with [facility], no auth required. Original Note: Pt is part of [facility], CM Left message for triage there to discuss DCP and VNA services for pt.
--- NOTE | 2024-06-16 14:09 | HO.PM.IMPN ---
Subjective Subjective Date of Service: 06/16/24 Interval History: This history was taken in Bulgarian from the patient. Chest discomfort and dyspnea resolved No further SVT Review of Systems Review of Systems: Yes all other systems are reviewed and are negative Physical Exam Vital Signs: Vital Signs: Last Vital Signs Temp 97.7 F 06/16/24 11:49 Pulse 97 06/16/24 11:49 Resp 19 06/16/24 11:49 BP 140/80 H 06/16/24 11:49 Pulse Ox 97 06/16/24 11:49 O2 Del Method Room Air 06/16/24 11:49 O2 Flow Rate 5 06/16/24 04:00 Oxygen Flow Rate 4 06/15/24 20:49 BMI result Body Mass Index 25.3 Gen: in no acute distress HEENT: sclera anicteric, moist mucus membranes Neck: supple Lungs: diminished Heart: regular rate and rhythm, no murmurs Abd: soft, non-tender, non-distended Ext: no edema Skin: warm/well-perfused Neuro: alert and oriented x3, no focal findings Psych: appropriate affect Objective Data Active Medications Acetaminophen (Acetaminophen 325 Mg Tablet) 650 mg PO Q6H PRN PRN Reason: Pain, Mild 1-3,fever,headache Albuterol Sulfate (Albuterol Sulfate 90 Mcg 8 Gm Inhaler) 2 puff INHALE Q4-6H PRN PRN Reason: Shortness Of Breath Or Wheezing Atorvastatin Calcium (Atorvastatin Calcium 10 Mg Tablet) 10 mg PO DAILY [facility] Calcium Carbonate (Calcium Carbonate 750 Mg Tab.Chew) 750 mg PO Q4H PRN PRN Reason: Heartburn Dextrose (Dextrose 50 % 25 Gm/50 Ml Syringe) 25 gm IVPUSH Q15M PRN; Protocol PRN Reason: per Hypoglycemia Standing Ord. Diltiazem HCl (Diltiazem Hcl Cd 240 Mg Cap.Er.Deg) 240 mg PO DAILY [facility]; Protocol Empagliflozin (Empagliflozin 10 Mg Tablet) 10 mg PO DAILY [facility] Enoxaparin Sodium (Enoxaparin Sodium 40 Mg/0.4 Ml Syringe) 40 mg SUBCUT Q24H [facility] Last Admin: 06/15/24 22:59 Dose: 40 mg Documented By: JADE Folic Acid (Folic Acid 1 Mg Tablet) 1 mg PO DAILY [facility] Furosemide (Furosemide 40 Mg Tablet) 40 mg PO DAILY [facility]; Protocol Glucose (Glucose Gel 15 Gm Gel..Gram.) 15 gm PO Q15M PRN; Protocol PRN Reason: per Hypoglycemia Standing Ord. Insulin Human Lispro (Insulin Lispro 100 Unit/Ml 3 Ml Vial) 0 unit SUBCUT QIDACHS [facility]; Protocol Last Admin: 06/16/24 11:51 Dose: Not Given Documented By: MITA Non-Admin Reason: No Insulin Coverage Isosorbide Mononitrate (Isosorbide Mononitrate 30 Mg Tab.Er.24h) 30 mg PO DAILY [facility]; Protocol Losartan Potassium (Losartan Potassium 50 Mg Tablet) 100 mg PO DAILY [facility]; Protocol Magnesium Hydroxide (Milk Of Magnesia 30 Ml Oral.Susp) 30 ml PO DAILY PRN PRN Reason: Constipation Melatonin (Melatonin 3 Mg Tablet) 6 mg PO BEDTIME PRN PRN Reason: Insomnia Montelukast Sodium (Montelukast Sodium 10 Mg Tablet) 10 mg PO BEDTIME [facility] Omeprazole (Omeprazole 40 Mg Capsule.Dr) 40 mg PO DAILY [facility] Ondansetron HCl (Ondansetron Hcl 4 Mg/2 Ml Vial) 4 mg IVPUSH Q8H PRN PRN Reason: Nausea and Vomiting Prednisone (Prednisone 5 Mg Tablet) 5 mg PO DAILY [facility] Quetiapine Fumarate (Quetiapine Fumarate 50 Mg Tablet) 50 mg PO BID [facility] Senna (Sennosides 8.6 Mg Tablet) 8.6 mg PO DAILY [facility] Sertraline HCl (Sertraline Hcl 100 Mg Tablet) 200 mg PO DAILY [facility] Sodium Chloride (0.9 % Sodium Chloride Flush 3 Ml Syringe) 3 ml IVFLUSH QSHIFT [facility] Last Admin: 06/16/24 10:34 Dose: 3 ml Documented By: MITA Spironolactone (Spironolactone 25 Mg Tablet) 25 mg PO DAILY [facility]; Protocol Trazodone HCl (Trazodone Hcl 50 Mg Tablet) 50 - 100 mg PO BEDTIME [facility] Labs 06/16/24 06:55 06/16/24 06:55 Labs: Laboratory Results - last 24 hr 06/15/24 06/16/24 06/16/24 21:08 06:55 07:43 MCV 86.9 88.7 MCH 28.7 28.0 MCHC 33.0 31.5 RDW 14.7 14.9 Plt Count 157 L 155 L MPV 9.9 10.1 Immature Gran % (Auto) 0.3 Neut % (Auto) 65.7 Lymph % (Auto) 27.3 [place] % (Auto) 5.8 Eos % (Auto) 0.8 Baso % (Auto) 0.1 Lymph # (Auto) 2.0 [place] # (Auto) 0.4 Eos # (Auto) 0.1 Baso # (Auto) 0.0 Abs Immat Gran (auto) 0.02 Absolute Neuts (auto) 4.7 Absolute Nucleated RBC 0.000 0.000 Nucleated RBC % (auto) 0.0 0.0 PT 11.3 INR 1.0 Anion Gap 15 13 Estim Creat Clear Calc 36.7 43.5 Estimated GFR 46 54 POC Glucose 116 H Random Glucose 193 H 116 H Calcium 8.9 9.1 Total Bilirubin 0.2 AST 24 ALT 16 Alkaline Phosphatase 117 B-Natriuretic Peptide 492 H Total Protein 7.6 Albumin 4.0 Influenza Type A (PCR) NEGATIVE Influenza Type B (PCR) NEGATIVE RSV RNA Qual (PCR) NEGATIVE SARS-CoV-2 RNA (RT-PCR) NEGATIVE 06/16/24 10:55 MCV MCH MCHC RDW Plt Count MPV Immature Gran % (Auto) Neut % (Auto) Lymph % (Auto) [place] % (Auto) Eos % (Auto) Baso % (Auto) Lymph # (Auto) [place] # (Auto) Eos # (Auto) Baso # (Auto) Abs Immat Gran (auto) Absolute Neuts (auto) Absolute Nucleated RBC Nucleated RBC % (auto) PT INR Anion Gap Estim Creat Clear Calc Estimated GFR POC Glucose 142 H Random Glucose Calcium Total Bilirubin AST ALT Alkaline Phosphatase B-Natriuretic Peptide Total Protein Albumin Influenza Type A (PCR) Influenza Type B (PCR) RSV RNA Qual (PCR) SARS-CoV-2 RNA (RT-PCR) Assessment and Plan (1) Acute on chronic heart failure with preserved ejection fraction (HFpEF): Status: Acute Plan d2 for 63yo F with HF with recovered EF, COPD with chronic hypoxia on 4L O2 and on chronic prednisone 5 mg/d, pHTN, DM2, HTN, HLD, hx SVT presenting with chest discomfort, dyspna, and palpitations; admitted for CHF exacerbation due to SVT acute exacerbation of chronic HF with recovered EF due to SVT - diuresed with IV furosemide; appears euvolemic; switch back to PO furosemide; add empagliflozin per Cardiology; start diltiazem for control of SVT and discontinue amlodipine; switch albuterol to levalbuterol - TTE pending; consider outpatient workup for infiltrative disorder as LVH is out of proportion to HTN - antihypertensives as below troponin elevation - likely due to SVT but Cardiology to arrange outpatient ischemic workup HTN - Imdur, spironolactone, losartan COPD not in acute exacerbation - continue chronic prednisone, nebs chronic hypoxic respiratory failure - continue O2 4L via NC DM2 - hold MTF, continue correction-dose lispro mood disorder - continue quetiapine + sertraline + trazodone VTE ppx - enoxaparin dispo - PT consult In my clinical judgment, the patient requires continued inpatient hospitalization for the following reasons: cardiac monitoring Total time managing care of this patient today: 45 minutes. Quality Stroke Does the patient have a stroke diagnosis?: No VTE Prior VTE?: No VTE Risk Level:: Medical - moderate - high VTE Device Contraindication: Treatment Not Indicated VTE Drug Contraindication: N/A - Med Ordered
[2024-06-16] MEDS: Empagliflozin 10 MG TABLET PO (14:25)
[2024-06-16] MEDS: dilTIAZem HCL CD 240 MG CAP.ER.DEG PO (14:25)
[2024-06-16 15:22] LABS: Glucose, Whole Blood 108 mg/dL (60-115)
[2024-06-16] MEDS: Enoxaparin Sodium 40 MG/0.4 ML SYRINGE SUBCUT (21:28)
[2024-06-16] MEDS: Montelukast Sodium 10 MG TABLET PO (21:28)
[2024-06-16] MEDS: traZODone HCL 50 MG TABLET PO (21:28)
[2024-06-16] MEDS: QUEtiapine Fumarate 50 MG TABLET PO (21:28)
[2024-06-16 21:37] LABS: Glucose, Whole Blood 100 mg/dL (60-115)
[2024-06-17] VITALS: BP 158/71; PULSE 81; TEMP 36.1; O2SAT 99
[2024-06-17 04:00] VITALS: BP 127/78; RESP 16; TEMP 36.4; O2SAT 99
[2024-06-17] MEDS: Omeprazole 40 MG CAPSULE.DR PO (06:36)
[2024-06-17 07:19] LABS: Anion Gap 11 (12-20); Blood Urea Nitrogen 17 mg/dL (9-16); Calcium 9.5 mg/dL (8.4-10.2); Carbon Dioxide 31 mmol/L (22-29); Chloride 103 mmol/L (96-108); Creatinine Clr Calc Pharmacy 43.5; Estimated Glomerular Filt Rate 54; Glucose Random 94 mg/dL (60-115); Magnesium 2.1 mg/dL (1.6-2.6); Potassium 4.1 mmol/L (3.3-5.1); Sodium 141 mmol/L (135-145)
[2024-06-17 07:22] LABS: Glucose, Whole Blood 76 mg/dL (60-115)
[2024-06-17 07:25] LABS: B Type Natriuretic Peptide 209 pg/mL (<100)
[2024-06-17 07:27] VITALS: BP 128/76; PULSE 81; RESP 20; TEMP 36.2; O2SAT 97
[2024-06-17] MEDS: predniSONE 5 MG TABLET PO (08:13)
[2024-06-17] MEDS: Spironolactone 25 MG TABLET PO (08:13)
[2024-06-17] MEDS: Furosemide 40 MG TABLET PO (08:13)
[2024-06-17] MEDS: Folic Acid 1 MG TABLET PO (08:13)
[2024-06-17] MEDS: Losartan Potassium 50 MG TABLET 100 MG PO (08:13)
[2024-06-17] MEDS: dilTIAZem HCL CD 240 MG CAP.ER.DEG PO (08:14)
[2024-06-17] MEDS: Atorvastatin Calcium 10 MG TABLET PO (08:14)
[2024-06-17] MEDS: Empagliflozin 10 MG TABLET PO (08:14)
[2024-06-17] MEDS: Sertraline HCL 100 MG TABLET 200 MG PO (08:14)
[2024-06-17] MEDS: Isosorbide Mononitrate 30 MG TAB.ER.24H PO (08:14)
[2024-06-17] MEDS: Sennosides 8.6 MG TABLET PO (08:15)
[2024-06-17] MEDS: QUEtiapine Fumarate 50 MG TABLET PO (08:15)
[2024-06-17] MEDS: 0.9 % Sodium Chloride Flush 3 ML SYRINGE IVFLUSH (08:18)
--- NOTE | 2024-06-17 10:17 | P.F2F_ITS ---
Service Date Service Date: 06/17/24 Encounter Date of encounter: 06/17/24 Reasons for Services Signs and symptoms assessed: attach PT evaluation from 06/16/24 Reason for retirement: medication management, medication treatment and teach disease management Reason for physical therapy: home safety and mobility, therapeutic exercises, gait/transfer training, assess need for DME, ADL training and energy conservation MD Overseeing Care: Analisa Chavez Homebound: Leaving the home is medically contraindicated at this time without the asist of a device and/or another person due th the listed conditions above and below. Reason homebound: unsteady gait / fall risk, shortness of breath with minimal effort and weakness related to hospital stay Certification: Based on the above findings, I certify that this patient is confined to the home and needs intermittent retirement care, physical therapy and/or speech therapy, or continues to need occupational therapy. The patient is under my care, and I have initiated the establishment of the plan of care. The patient will be followed by a physician who will periodically review the plan of care. Time Spent With Patient Time: Total time managing care of this patient today ____ minutes.
--- NOTE | 2024-06-17 10:28 | PM.DS ---
DS: Providers Provider Date of Service: 06/17/24 Date of admission: 06/15/24 22:13 Date of discharge: 06/17/24 Primary care physician: Analisa Chavez MD Consults: 06/16/24 08:38 Consult to Cardiology Routine Consulting Provider: [facility] Reason for consultation: svt,chf DS: Diagnosis Discharge Diagnosis (1) Supraventricular tachycardia: Status: Acute (2) Acute on chronic heart failure with mildly reduced ejection fraction (HFmrEF, 41-49%): Status: Acute DS: Summary Hospital Course Hospital Course: From the history and physical by the admitting hospitalist, JARROD Acosta, 06/15/24: Pt is a 63-year-old female with a PMH significant for?HFrEF (EF 30-35%), COPD with chronic hypoxemic respiratory failure on 4L home O2, pulmonary hypertension, [id number] type 2 diabetes, HTN, HLD, and hx of SVT who presents to the ED with?chest pain, SOB, and palpitations since this afternoon. Chest pain is centrally located and radiating to left side and down left arm, and is sharp and stabbing in nature. Pt experienced similar symptoms approximately a month ago which lasted around an hour and then went away. Symptoms to say persisted and were worse than normal which prompted her visit to the ED. pt also complains of headache. No fever, chills, nausea, vomiting, abdominal pain. Reports has been taking her medications. Denies orthopnea or lower leg edema above baseline. Of note, pt went into likely SVT with rates as high as 160s to 170s, though pt converted to normal rate and rhythm before any intervention was taken. In the ED pt was tachycardic up to 122, tachypneic up to 24, and satting at 86% on home 4 L NC. Labs were significant for potassium 3.1, initial troponin 17.8, and BNP 492. No leukocytosis. Stable normocytic anemia. Renal function WNL. Tested negative for flu, COVID, RSV. CXR showed cardiomegaly with findings of pulmonary venous congestion. Initial EKG demonstrated sinus tachycardia with PVCs and RBBB. Repeat EKG showed likely SVT with rate of 165. Pt was treated with furosemide 80 mg IV. Pt will be admitted to the hospital for treatment and further evaluation of acute CHF exacerbation secondary to SVT. 63yo F with HF with recovered EF, COPD with chronic hypoxia on 4L O2 and on chronic prednisone 5 mg/d, pHTN, DM2, HTN, HLD, aned hx SVT presenting with chest discomfort, dyspna, and palpitations; admitted to the telemetry unit for CHF exacerbation due to SVT. She was diuresed with IV furosemide. Diltiazem dosage was increased to control SVT and amlodipine was discontinued. Empagliflozin was also started. Albuterol was switched to levalbuterol. SVT did not recur and she appeared euvolemic. Cardiology was consulted. TTE showed: 1. Mildly reduced LV ejection fraction 45-50% with mild LVH with impaired relaxation filling pattern 2. Mild mitral regurgitation 3. Mildly elevated right ventricular systolic pressure 4. No gross pericardial effusion She was discharged home with VNA services for CHF monitoring/medication review and home PT. She will follow up with [facility] Cardiology as an outpatient for ischemic workup. Also to consider outpatient workup for infiltrative disorder as LVH was out of proportion to HTN on prior echocardiogram in 2023. Time Attestation Discharge Coordination Time (in mins): 45 Quality: Safe Use of Opioids Does Pt have an Active Cancer Diagnosis on the Problem List?: No Quality: Stroke Does the patient have a stroke diagnosis?: No Physical Exam Vital Signs: Vital Signs: Last Vital Signs Temp 97.2 F 06/17/24 07:27 Pulse 81 06/17/24 07:27 Resp 20 06/17/24 07:27 BP 128/76 06/17/24 07:27 Pulse Ox 97 06/17/24 07:27 O2 Del Method Nasal Cannula 06/17/24 07:27 O2 Flow Rate 4 06/17/24 07:27 Oxygen Flow Rate 4 06/15/24 20:49 BMI result Body Mass Index 25.3 Gen: in no acute distress HEENT: sclera anicteric, moist mucus membranes Neck: supple Lungs:clear Heart: regular rate and rhythm, no murmurs Abd: soft, non-tender, non-distended Ext: no edema Skin: warm/well-perfused Neuro: alert and oriented x3, no focal findings Psych: appropriate affect DS: Data Data Completed and Pending Completed studies during hospitalization [Text1]: Laboratory Results WBC 9.4 X10*3/uL (4.8-10.8) 06/16/24 06:55 RBC 3.97 X10*6/uL (4.20-5.50) L 06/16/24 06:55 Hgb 11.1 g/dl (12.0-16.0) L 06/16/24 06:55 Hct 35.2 % (37.0-47.0) L 06/16/24 06:55 MCV 88.7 fL (80.0-98.0) 06/16/24 06:55 MCH 28.0 pg (27.0-33.0) 06/16/24 06:55 MCHC 31.5 g/dl (31.0-35.0) 06/16/24 06:55 RDW 14.9 % (11.0-16.0) 06/16/24 06:55 Plt Count 155 X10*3/uL (160-400) L 06/16/24 06:55 MPV 10.1 fL (9.4-12.3) 06/16/24 06:55 Immature Gran % (Auto) 0.3 % (0.0-0.4) 06/15/24 21:08 Neut % (Auto) 65.7 % (45-73) 06/15/24 21:08 Lymph % (Auto) 27.3 % (20-40) 06/15/24 21:08 [place] % (Auto) 5.8 % (2-11) 06/15/24 21:08 Eos % (Auto) 0.8 % (0-4) 06/15/24 21:08 Baso % (Auto) 0.1 % (0-2) 06/15/24 21:08 Lymph # (Auto) 2.0 X10*3/uL (1.2-4.9) 06/15/24 21:08 [place] # (Auto) 0.4 X10*3/uL (0.1-1.2) 06/15/24 21:08 Eos # (Auto) 0.1 X10*3/uL (0.0-0.4) 06/15/24 21:08 Baso # (Auto) 0.0 X10*3/uL (0.0-0.2) 06/15/24 21:08 Abs Immat Gran (auto) 0.02 X10*3/uL (0.00-0.03) 06/15/24 21:08 Absolute Neuts (auto) 4.7 x10*3/uL (2.0-8.3) 06/15/24 21:08 Absolute Nucleated RBC 0.000 X10*3/uL (0.0-0.012) 06/16/24 06:55 Nucleated RBC % (auto) 0.0 /100WBC (0.0-0.2) 06/16/24 06:55 PT 11.3 SEC (10.9-12.4) 06/15/24 21:08 INR 1.0 (0.9-1.1) 06/15/24 21:08 Sodium 141 mmol/L (135-145) 06/17/24 06:51 Potassium 4.1 mmol/L (3.3-5.1) 06/17/24 06:51 Chloride 103 mmol/L (96-108) 06/17/24 06:51 Carbon Dioxide 31 mmol/L (22-29) H 06/17/24 06:51 Anion Gap 11 (12-20) L 06/17/24 06:51 BUN 17 mg/dL (9-16) H 06/17/24 06:51 Creatinine 1.03 mg/dL (0.5-1.4) 06/17/24 06:51 Estim Creat Clear Calc 43.5 06/17/24 06:51 Estimated GFR 54 06/17/24 06:51 POC Glucose 76 mg/dL (60-115) 06/17/24 07:18 Random Glucose 94 mg/dL (60-115) 06/17/24 06:51 Calcium 9.5 mg/dL (8.4-10.2) 06/17/24 06:51 Magnesium 2.1 mg/dL (1.6-2.6) 06/17/24 06:51 Total Bilirubin 0.2 mg/dL (0.0-1.0) 06/15/24 21:08 AST 24 U/L (5-31) 06/15/24 21:08 ALT 16 U/L (0-31) 06/15/24 21:08 Alkaline Phosphatase 117 U/L (39-117) 06/15/24 21:08 Troponin I High Sens 23.1 ng/L (<3.5-17.0) H 06/15/24 23:30 B-Natriuretic Peptide 209 pg/mL (<100) H 06/17/24 06:51 Total Protein 7.6 g/dL (6.5-8.0) 06/15/24 21:08 Albumin 4.0 g/dL (3.5-5.0) 06/15/24 21:08 Influenza Type A (PCR) NEGATIVE (Negative) 06/15/24 21:08 Influenza Type B (PCR) NEGATIVE (Negative) 06/15/24 21:08 RSV RNA Qual (PCR) NEGATIVE (Negative) 06/15/24 21:08 SARS-CoV-2 RNA (RT-PCR) NEGATIVE (Negative) 06/15/24 21:08 CXR 06/15/24 1. Cardiomegaly with findings of pulmonary venous congestion. Discharge Plan Discharge Anticipated Discharge Date/Time: 06/17/24 10:22 Patient Disposition: Home Health Service Discharge Diagnosis: CHF SVT Referrals: Keiry Horne NP-C [Nurse Practitioner] - 2 Weeks Analisa Carr MD [Primary Care Provider] - 1 Week Discharge Medications: New diltiazem HCl 240 mg Capsule,Extended Release 24hr 240 mg PO DAILY Qty: 30 0RF Protocol: Hold for SBP/HR < HOLD for SBP < : 90 HOLD for HR < : 60 Jardiance 10 mg Tablet 10 mg PO DAILY Qty: 30 0RF Continued prednisone 5 mg tablet 5 mg PO DAILY 30 Days Qty: 30 2RF quetiapine 50 mg tablet 50 mg PO BID 90 Days Qty: 180 1RF folic acid 1 mg tablet 1 mg PO DAILY Qty: 90 1RF isosorbide mononitrate 30 mg tablet extended release 24 hr 30 mg PO DAILY 90 Days Qty: 90 3RF furosemide [Lasix] 40 mg tablet 40 mg PO DAILY 90 Days Qty: 90 1RF metformin 500 mg tablet 500 mg PO DAILY 90 Days Qty: 90 4RF montelukast 10 mg tablet 10 mg PO BEDTIME Qty: 30 11RF sertraline 100 mg tablet 200 mg PO DAILY tiotropium bromide [Spiriva with HandiHaler] 18 mcg capsule, w/inhalation device 1 cap inhalation DAILY albuterol sulfate [Ventolin HFA] 90 mcg/actuation HFA aerosol inhaler 2 puff inhalation Q4-6H PRN (Reason: Shortness Of Breath Or Wheezing) (DME) nebulizers Misc See Rx Instructions .Route Qty: 1 0RF Rx Instructions: As directed ipratropium-albuterol 0.5 mg-3 mg(2.5 mg base)/3 mL Solution For Nebulization 3 ml inhalation TID Qty: 270 0RF losartan 50 mg tablet 100 mg PO DAILY sennosides [senna] 8.6 mg tablet 8.6 mg PO DAILY trazodone 50 mg tablet 50 - 100 mg PO BEDTIME atorvastatin 10 mg tablet 10 mg PO DAILY spironolactone 25 mg tablet 25 mg PO DAILY omeprazole 20 mg capsule,delayed release(DR/EC) 40 mg PO DAILY Discontinued amlodipine 5 mg tablet 5 mg PO DAILY diltiazem HCl [Cardizem CD] 120 mg capsule,extended release 24hr 120 mg PO DAILY Discharge Orders: Discharge Order (Routine); Ordered 06/17/24 Ordered By: Ashutosh Card Diet: low-sodium diabetic Activity on Discharge: As tolerated Stand Alone Forms: Patient Portal Discharge page Print Language: Romansh Care Plan Goals: cardiac health Health Concerns: CHF SVT Plan of Treatment: stop amlodipine increase diltiazem from 120 to 240 mg daily start empagliflozin 10 mg daily Low-sodium diet: less than 2000 mg of sodium daily. Weigh yourself daily and call your doctor if your weight goes up by more than 3 lb/day or 5 lb/week. follow up with [facility] Cardiology in 2 weeks Please follow up with your primary care doctor within 1 week. Return to the hospital if you experience recurrent or worsening symptoms. Assessment: See Discharge Summary.
[2024-06-17 11:07] VITALS: BP 100/66; PULSE 79; RESP 20; TEMP 36.7; O2SAT 95
--- NOTE | 2024-06-17 11:18 | MHC.CM.PN ---
IMM 06/17/24, Pt. has been medically cleared for DC, she will go home via BLS and have home care services from [facility]. DC summary and face to face faxed to [facility] at [phone]
[2024-06-17 11:39] LABS: Glucose, Whole Blood 194 mg/dL (60-115)
--- NOTE | 2024-06-17 13:12 | PM.PNCARD ---
Subjective Subjective Date of Service: 06/17/24 Principal diagnosis: SVT, CHF. Interval history: Echocardiogram shows low normal EF of 45-50% otherwise doing well. No overnight SVT. Taking medications. Breathing is much improved. No chest pain. Review of Systems Constitutional: Reports no additional constitutional complaints Cardiovascular: Denies chest pain, Denies lightheadedness, Denies palpitations and Reports dyspnea on exertion Respiratory: Reports no additional respiratory complaints and Reports dyspnea on exertion Endocrine: Denies palpitations Physical Exam Vital Signs: Last Vital Signs Temp 98.0 F 06/17/24 11:07 Pulse 79 06/17/24 11:07 Resp 20 06/17/24 11:07 BP 100/66 06/17/24 11:07 Pulse Ox 95 06/17/24 11:07 O2 Del Method Nasal Cannula 06/17/24 11:07 O2 Flow Rate 4 06/17/24 11:07 Oxygen Flow Rate 4 06/15/24 20:49 BMI result Body Mass Index 25.3 Const General: cooperative, comfortable, alert and awake Nutritional Appearance: average body habitus Orientation/consciousness: patient oriented x3 HEENT Head: Yes normocephalic and Yes atraumatic Neck Neck: Yes trachea midline, Yes supple and Yes no JVD Resp Effort & Inspection: normal respiratory effort Auscultation: no rales, no wheezes and diminished lung sounds Cardio Jugular venous distension: no JVD Rate: regular rate Rhythm: regular rhythm Heart sounds: S1 normal heart sound present, S2 normal heart sound present, no click, no gallops, no murmurs and no rubs GI Auscultation: normal bowel sounds Skin General skin exam: no rashes or lesions noted and ecchymosis Neuro General: patient oriented x3 and no focal motor deficits Extrem General: Yes no clubbing, cyanosis or edema Objective Labs and Meds 06/16/24 06:55 06/17/24 06:51 Lab results: Laboratory Results - last 24 hr 06/16/24 06/16/24 06/17/24 15:14 21:29 06:51 Sodium 141 Potassium 4.1 Chloride 103 Carbon Dioxide 31 H Anion Gap 11 L BUN 17 H Creatinine 1.03 Estim Creat Clear Calc 43.5 Estimated GFR 54 POC Glucose 108 100 Random Glucose 94 Calcium 9.5 Magnesium 2.1 B-Natriuretic Peptide 209 H 06/17/24 06/17/24 07:18 11:28 Sodium Potassium Chloride Carbon Dioxide Anion Gap BUN Creatinine Estim Creat Clear Calc Estimated GFR POC Glucose 76 194 H Random Glucose Calcium Magnesium B-Natriuretic Peptide Progress Note: A&P Assessment and plan (1) Acute on chronic heart failure with mildly reduced ejection fraction (HFmrEF, 41-49%): Status: Acute Assessment and Plan: Acute symptomatic heart failure related to sudden onset SVT. In combination she was chronic respiratory failure related to her COPD. Continue COPD management. Switch to Xopenex. Control of SVT with Cardizem therapy. Noted low normal EF but this is reasonably okay as her EF is not below 40% use Cardizem therapy in her. Continue Lasix as well as Jardiance for heart failure management. Will need ischemic workup as an outpatient. (2) Supraventricular tachycardia: Status: Acute Assessment and Plan: Supraventricular tachycardia, pursue therapy with Cardizem for now. If continues to have breakthrough episodes will need to consider ablation. Avoidance of stimulants was discussed. Will set up for outpatient workup and follow-up. Thank you for allowing me to partake in his care Time Spent With Patient Time: Total time managing care of this patient today ____ minutes. Progress Note: Quality Stroke Does the patient have a stroke diagnosis?: No Procedures Date of Service Date of Service: 06/17/24
[2024-06-17 15:18] VITALS: BP 113/78; PULSE 75; RESP 18; TEMP 36.5; O2SAT 95
== END 2024-06-17 15:35 | disposition home health service (06) | DRG 291 ==
LOC: HO.ED 22:50 → HO.EDOVER 22:53 → HO.IMC 23:47
PROVIDERS: Admitting Provider Student in an Organized Health Care Education/Training Program; Emergency Provider Emergency Medicine; PCP Internal Medicine; Visit Provider Family Medicine
DX: I11.0 Hypertensive heart disease with heart failure (principal); I50.23 Acute on chronic systolic (congestive) heart failure; I47.10 Supraventricular tachycardia, unspecified; J96.11 Chronic respiratory failure with hypoxia; D64.9 Anemia, unspecified; F17.210 Nicotine dependence, cigarettes, uncomplicated; E11.9 Type 2 diabetes mellitus without complications; I27.20 Pulmonary hypertension, unspecified; Z71.6 Tobacco abuse counseling; Z20.822 Contact with and (suspected) exposure to COVID-19; J44.9 Chronic obstructive pulmonary disease, unspecified; Z99.81 Dependence on supplemental oxygen; Z79.51 Long term (current) use of inhaled steroids; Z79.84 Long term (current) use of oral hypoglycemic drugs; Z79.899 Other long term (current) drug therapy
CPT/HCPCS: 0241U; 36415; 71045; 80048; 80053; 82947; 83735; 83880; 84484; 85025; 85027; 85610; 93005; 93306; 97162; 99285; J1650; J1940

== ENCOUNTER → 2024-06-15 21:10 | Outpatient (BNV) | payer MEDICAID, SELFPAY | PROVIDERS: Emergency Provider Emergency Medicine; PCP Internal Medicine; Visit Provider Radiology Diagnostic Radiology | DX: R07.9 Chest pain, unspecified (principal); R06.02 Shortness of breath | CPT/HCPCS: 71045 ==

== ENCOUNTER 2024-06-15 22:13 | Outpatient (BNV) | payer MEDICARE, MEDICAID, SELFPAY | END 2024-06-16 07:00 | PROVIDERS: Admitting Provider Student in an Organized Health Care Education/Training Program; Emergency Provider Emergency Medicine; PCP Internal Medicine; Visit Provider Internal Medicine Cardiovascular Disease | DX: I27.20 Pulmonary hypertension, unspecified (principal); I34.0 Nonrheumatic mitral (valve) insufficiency; I36.1 Nonrheumatic tricuspid (valve) insufficiency; I50.9 Heart failure, unspecified | CPT/HCPCS: 93306 ==

== ENCOUNTER → 2024-06-15 22:13 | Outpatient (BNV) | payer MEDICARE, MEDICAID, SELFPAY | PROVIDERS: Admitting Provider Student in an Organized Health Care Education/Training Program; Emergency Provider Emergency Medicine; PCP Internal Medicine; Visit Provider Internal Medicine Cardiovascular Disease | DX: I50.23 Acute on chronic systolic (congestive) heart failure (principal); I47.10 Supraventricular tachycardia, unspecified | CPT/HCPCS: 99233 ==

== ENCOUNTER → 2024-06-15 22:13 | Outpatient (BNV) | payer MEDICAID, SELFPAY | PROVIDERS: Admitting Provider Student in an Organized Health Care Education/Training Program; Emergency Provider Emergency Medicine; PCP Internal Medicine; Visit Provider Student in an Organized Health Care Education/Training Program | DX: I47.10 Supraventricular tachycardia, unspecified (principal); I50.23 Acute on chronic systolic (congestive) heart failure | CPT/HCPCS: 99223; 99232; 99239; G0180 ==

== ENCOUNTER → 2024-06-27 10:08 | Outpatient (REF) | payer MEDICARE, SELFPAY ==
--- NOTE | 2024-06-27 10:12 | CA_ITS ---
Acquisition Time: 2024-06-27 10:43:58 Total Exercise Time: 00:02:00 Test Indications: svt Medications: see h&p Protocol: LEXISCAN Max HR: 123 BPM 77% of Pred: 158 BPM Max BP: 136/74 mmHG Max Work Load: 1.0 METS Pharmacological stress test with Lexiscan while pt kicks her legs in chair, with reports of feeling SOB and fatigue, with frequent isolated PACs, PVCs, and atrial runs- max 5 beats, with normotensive response to injection. Nondiagnostic EKG for ischemia. In recovery, pt treated with IVP Aminophylline 75 mg to reverse Lexiscan, after which pt feeling back to baseline. Nuclear images pending. Test reviewed with Dr. Herrera. Referred By: Bhupendra Germain Electronically Signed By: Jessee Figueroa
--- OUTSIDE RECORDS SUMMARY | 2024-06-27 11:21 | XMS_ITS | Continuity of Care Document ---
Author Organization [employer] [facility] [place] Address [address] [facility] [address] [place] [address] Phone Care Team Providers Care Technology Lab Teacher Name Role Phone Benedict LOPEZ, Aqib Unavailable Unavailable Allergies, Adverse Reactions, Alerts Substance Reaction Status Criticality nicotine Active No Information topiramate Active No Information Medications Medication Instructions Dosage Effective Dates (start - stop) Status Comments Spiriva Respimat 2.5 mcg/actuation solution for inhalation inhale 2 puff by inhalation route every day at the same time each day 5 MCG - Active diltiazem ER 240 mg tablet,extended release 24 hr take 1 tablet by oral route every day 240 MG - Active Jardiance 10 mg tablet take 1 tablet by oral route every day in the morning 10 MG - Active isosorbide mononitrate ER 30 mg tablet,extended release 24 hr take 1 tablet by oral route every day in the morning 30 MG - Active Lipitor 10 mg tablet TAKE 1 TABLET BY OR AL ROUTE EVERY DAY - Active losartan 100 mg tablet take [...] route every day with morning - Active furosemide 40 mg tablet take 1 tablet by oral route every day 40 MG - Active Seroquel 50 mg tablet take [...] once daily NEEDED for constipation. - Active albuterol sulfate HFA 90 mcg/actuation aerosol inhaler inhale 2 puff by inhalation route every 4 - 6 hours as needed 180 MCG - Active Advance Directives Directive Yes / No Effective Date File Name No Information Encounters Encounter Description Practice Location Reason(s) For Visit Diagnoses Date Provider [facility], [address] [place] [address], [id number], tel:[phone] [place] No Information 5 Benedict Aqib. [address] [place], [id number], [place]. tel:[phone] [facility], [address] [facility], [place], [place], [id number], [place] tel:[phone] [place] No Information 5 Benedict Aqib. [address], [place], [place], [id number], [place]. tel:[phone] [facility], [address] [address], [place], [place], [id number], tel:[phone] [place] No Information 5 Benedict Aqib. [address] [place], [place], [id number], [place]. tel:[phone] [facility], [address], [place], [place], [id number], [place] tel:[phone] [place] No Information 5 Benedict Aqib. [address] [place], [place], [id number], [place]. tel:[phone] [facility], [address], [place], [place], [id number], [place] tel:[phone] [place] No Information 5 Benedict Aqib. [address] [place], [place], [id number], [place]. tel:[phone] [facility], [address], [place], [place], [id number], [place] tel:[phone] [place] No Information 4 Benedict Aqib. [address] [place], [place], [id number], [place]. tel:[phone] [facility], [address], [place], [place], [id number], [place] tel:[phone] [place] Acute Visit (chief complaint) Chronic obstructive pulmonary disease, unspecified COPD typeChronic respiratory failure, unspecified whether with hypoxia or hypercapnia 4 Benedict Aqib. [address] [place], [place], [id number], [place]. tel:[phone] [facility], [address] [facility], [place], [place], [id number], [place] tel:[phone] [place] No Information 4 Benedict Aqib. [address] [place], [place], [id number], [place]. tel:[phone] [facility], [address], [place], [place], [id number], [place] tel:[phone] [place] No Information 0 4 Benedict Aqib. [address] [place], [place], [id number], [place]. tel:[phone] [facility], [facility], [place], [place], [id number], [place] tel:[phone] [place] No Information 4 Benedict Aqib. [address] [place], [place], [id number], [place]. tel:[phone] [facility], [facility], [place], [place], [id number], [place] tel:[phone] [place] Semi-Annual (chief complaint) Chronic depressionAnxiety, generalizedHypertensiv e heart and chronic kidney disease with heart failure and stage 1 through stage 4 chronic kidney disease, or unspecified chronic kidney diseaseHeart failure, unspecified HF chronicity, unspecified heart failure typeNonischemic congestive cardiomyopathyPulmonar y HTNStage 3a chronic kidney diseaseType 2 diabetes mellitus with stage 3a chronic kidney disease, without long-term current use of insulinDiabetic peripheral vascular diseaseHyperlipidemia, unspecified hyperlipidemia typeChronic GERDChronic obstructive pulmonary disease, unspecified COPD typeChronic respiratory failure with hypoxia and hypercapniaChronic respiratory failure with hypercapnia 4 Benedict Aqib. [address] [place], [place], [id number], [place]. tel:[phone] [facility], [address] [facility] [address], [place], [place], [id number], [place] tel:[phone] [place] Chronic obstructive pulmonary disease, unspecifiedChronic respiratory failure, unspecified whether with hypoxia or hypercapnia 4 Benedict Aqib. [address] [place], [place], [id number], [place]. tel:[phone] [facility], [address] [facility], [place], [place], [id number], [place] tel:[phone] [place] Heart failure, unspecified HF chronicity, unspecified heart failure type Sep-2 4 Benedict Aqib. [address] [place], [place], [id number], [place]. tel:[phone] [facility], [address], [place], [place], [id number], [place] tel:[phone] [place] No Information Jan-2 4 Iris Roxy. [address] [place], [place], [id number], [place]. tel:[phone] [facility], [address], [place], [place], [id number], [place] tel:[phone] [place] Acute Visit (chief complaint) Suspected fracture of rib of left side Sep- 4 Iris Roxy. [address] [place], [place], [id number], [place]. tel:[phone] [facility], [address], [place], [place], [id number], [place] tel:[phone] [place] Heart failure, unspecified 4 Iris Roxy. [address] [place], [place], [id number], [place]. tel:[phone] [facility], [address], [place], [place], [id number], [place] tel:[phone] [place] No Information 0- 4 Os Jennyfer. [address] [place], [place], [id number], [place]. tel:[phone] [facility], [address], [place], [place], [id number], [place] tel:[phone] [place] No Information 0 3-202 4 Os Jennyfer. [address] [place], [place], [id number], [place]. tel:[phone] [facility], [address] [facility] [address], [place], [place], [id number], [place] tel:[phone] [place] Follow-up (chief complaint) Hypertensive heart disease with heart failureHeart failure, unspecified HF chronicity, unspecified heart failure typeChronic obstructive pulmonary disease, unspecified COPD typeTobacco use disorder 4 Os Jennyfer. [address] [place], [place], [id number], [place]. tel:[phone] [facility], [facility], [place], [place], [id number], [place] tel:[phone] [place] Encounter for rehabilitation evaluation 4 Theroux Lyndsay. [address], [place], [address]. tel:[phone] [facility], [address] [facility] [address] [place] [address], [id number], [place] tel:[phone] [place] Heart failure, unspecified HF chronicity, unspecified heart failure type 4 Os Jennyfer. [address] [place], [place], [id number], [place]. tel:[phone] [facility], [address] [facility], [place], [place], [id number], [place] tel:[phone] [place] No Information 4 Os Jennyfer. [address] [place], [place], [id number], [place]. tel:[phone] [facility], [address] [facility], [place], [place], [id number], [place] tel:[phone] [place] Deficiency of other specified nutrient elementsEncounter for nutritional assessmentDiabetic nutritional counseling completed 4 Izzy Geni. [address] [place], [place], [id number], [place]. tel:[phone] [facility], [address] [facility] [address] [place] [address], [id number], [place] tel:[phone] [place] Encounter for rehabilitation evaluationAlteration in performance of activities of daily livingDifficulty in walking, not elsewhere classified 4 Gildardo Pierceh. [address] [place], [place], [id number]. tel:[phone] [facility], [address] [facility] [address], [place], [place], [id number], [place] tel:[phone] [place] Encounter for rehabilitation evaluation 4 Khoa De Santiago. [address], [place], [place], [id number], [place]. tel:[phone] [facility], [address] [facility] [address] [facility], [place], [place], [id number], [place] tel:[phone] [place] Post Enrollment Evaluation (chief complaint) Chronic obstructive pulmonary disease, unspecified COPD typeMajor depressive disorder, recurrent, mildAnxiety, generalizedHypertensiv e heart disease with heart failureHeart failure, unspecified HF chronicity, unspecified heart failure typeCardiomyopathy, unspecified typeHyperlipidemia, unspecified hyperlipidemia typePostmenopausal osteoporosisChronic GERDChronic respiratory failure, unspecified whether with hypoxia or hypercapniaObstructive sleep apnea syndromeTobacco use disorderEncounter for general adult medical examination without abnormal findingsIron deficiency anemia, unspecified iron deficiency anemia type Aug- 4 Os Jennyfer. [address] [place], [place], [id number], [place]. tel:[phone] [facility], [address] [facility] [address], [place], [place], [id number], [place] tel:[phone] [place] No Information 4 Os Jennyfer. [address] [place], [place], [id number], [place]. tel:[phone] [facility], [address], [place], [place], [id number], [place] tel:[phone] [place] No Information 3 Adrien Abbasijjwala. [address], [place], [place], [id number], . tel:[phone] Family History Family Member Type Diagnosis Age At Onset No Information Immunizations Vaccine Date Status Comments Fluzone Triv refused Source: New Immunization Record Fluzone High Dose refused No te: refused 02/01/24 ; Source: New Immunization Record COVID-19 Pfizer administered Source: [place] r Registry Flu-ccIIV4 administered Source: Other R egistry PCV13 administered Source: Other R egistry PPSV23 administered Source: Other R egistry Payers Payer name Insurance type Covered alliance party ID Thalia villareal(s) [employer] 16 [id number] [employer] 16 [id number] [employer] [id number] Social History Type Description Quantity Date Captured Comments Sex Female Smoking Status No Information Chief Complaint And Reason For Visit No Information Plan Of Treatment Date Type Action Status Referral Ordered: Dr Beckford -Pulmonology (related to Chronic obstructive pulmonary disease, unspecified COPD type) ordered Referral Referred To: Dr Beckford Ordered: Referrals: Pulmonology. Dr Beckford. Follow-up and treat ordered Referral Ordered: Dentistry (related to Healthcare maintenance) ordered Referral Ordered: Hand Screen Printer (related to Encounter for general adult medical examination without abnormal findings) ordered Referral Ordered: Gastroenterology (related to Encounter for general adult medical examination without abnormal findings) ordered Referral Ordered: Referrals: Cardiology Appointment date/timeframe: 11/20/2023 ordered Referral Ordered: Referrals: Pulmonology Appointment date/timeframe: 08/05/2023 ordered Referral Ordered: Referrals: Dentistry. Evaluate and treat ordered Referral Ordered: Referrals: Gastroenterology. Evaluate and treat ordered Referral Ordered: Referrals: Hand Screen Printer. Evaluate and treat ordered Appointment Paola Romero BOOKED Future Order: Radiology Order Pu lmonary function tests ([id number]), Ordered on: Ordered Future Order: Radiology Order Ri bs X-ray; Bilateral, with Chest X-ray (4+ views) ([id number]), Ordered on: Ordered Future Order: Radiology Order Ma mmogram (Screen); Bilat, 2-view study of each breast, incl computer-aided detection when performed ([id number]), Ordered on: Ordered Future Order: Radiology Order Ch est CT, diagnostic, WITHOUT Contrast ([id number]), Ordered on: Ordered Future Order: Lab Order BASIC ME TABOLIC PANEL ([id number]), Scheduled for: Ordered Future Order: Lab Order BASIC ME TABOLIC PANEL ([id number]), Ordered on: Ordered History Of Present Illness [...] week. Patient was seen in the clinic today.bituminous distributor operator CASE Cueva, utilized for assessment. Turret Lathe Machinist utilized for assessment. Patient currently lives in community. There have been 2 ER visits but no hospitalizations, SNF admission in the last six months.Diagnoses Reviewed.Transportation: needs transportConsults:-Dental: no dentures; dental referral -Podiatry: can be done by podiatry-Vision: no glasses but should have them as she has difficulty seeing; vision referral-Cardiology: [facility]: 10/13/23 at 9:30a-Pulmonology: [facility]: 08/05/23-GI: order in place for colonoscopyScreenings: Continuing to screen-Chest CT: <80, smoked in the last 15 years; order in place-Mammogram: order in place -Colonoscopy: order in place4 Ms:Mentation: all messed up ; don't remember certain things; didn't remember the sweat band sewer who met her at her house recently -Orientation: A&Ox3-MOCA: in 08/2023-Cannot read in Guamanian or Bermudian-Family support: Has 2 sisters and 2 kids who don't visit (son did talk to sweat band sewer-he is the HCP Aron)Medications:-Medications reviewed.Tobacco use- 2-3 [...] over a table and hitting her ribs. Hardboard Factory Worker used for visit. On exam ppt with [...] to open her door. Ppt only speaks Bermudian therefore Proprio bituminous distributor operator line was utilized for assessment. No recent hospitalizations. No medication changes. Ppt reports feeling better then when last evaluated by nurse on Thursday. She reports chronic dyspea and chest pain which is intermittent. She does follow Cardiology regularly. Ppt had no medical concerns at this time. Comments: Joanna mckeon is a 63 year old female who is being seen today for a post enrollment exam. Patient had been seen in clinic.bituminous distributor operator CASE Cueva, utilized for assessment.Turret Lathe Machinist utilized for assessment. Patient currently lives in community. There have been hospitalizations, SNF admission and/or ER visits in the last six months.-Several hospitalizations for fatigue typically [facility] (requesting records)Diagnoses Reviewed.Transportation: needs transportConsults:-Dental: no dentures; dental referral -Podiatry: can be done by podiatry-Vision: no glasses but should have them as she has difficulty seeing; vision referral-Cardiology: [facility]: 10/13/23 at 9:30a-Pulmonology: [facility]: 08/05/23-GI: order in place for colonoscopyScreenings: Continuing to screen-Chest CT: <80, smoked in the last 15 years; order in place-Mammogram: order in place -Colonoscopy: order in place4 Ms:Mentation: all messed up ; don't remember certain things; didn't remember the sweat band sewer who met her at her house recently -Orientation: A&Ox3-MOCA: TBD-Cannot read in Guamanian or Bermudian-Family support: Has 2 sisters and 2 kids who don't visit (son did talk to sweat band sewer-he is the HCP Aron)Medications:-Medications reviewed.Mobility:-Ambulates: Independent w/ walker-Falls: 4 times in the bathtub (last year)WMM:-Advance Directives reviewed: DNR/DNI, hospitalize-HCP: not invoked-Is there one thing you want to work on so you can do [most important thing]? nothing in particular-Anything you worry about? no concerns at this time Post Enrollment Evaluation Instructions Date Instruction Additional Infor candelario Patient's [...] and chr onic respiratory failureRequires 4L supplemental [id number] to use prednisoneVentolin as neededContinues to smoke [...] and chr onic respiratory failureRequires 4L supplemental [id number] to use prednisoneVentolin as neededContinues to smoke [...] disease Pt with Type 2 DMCur rently [id number] 5.9Continue MetforminDiscussed diet and exerciseWill continue to monitor Related to Type 2 diabetes mellitus with stage 3a chronic kidney disease, without long-term current use of insulin Pt with CKD stage 3C urrently stableGFR 51, Cr 1.20Avoid nephrotoxic drugsWill continue to monitor Related to Stage 3a chronic kidney disease Pt with pulmonary HT NContinues to follow up with CardiologyContinue current managementWill continue to monitor Related to Pulmonary HTN Patient with nonisch emic congestive cardiomyopathyPatient continues to follow up with CardiologyContinue current managementWill continue to monitor Related to Nonischemic congestive cardiomyopathy Patient with diastol ic heart failureCardiology notes [...] triggersTremors at timeNoted to have anxiety during vii because of new team membersTherapist: does not [...] in left shoulder pain Patient Goal Discontinued Elena is at risk for complications related to diabetes. Paola will not experience any medical complications or hospitalizations, related to diabetes and A1C will remain stable, as determined by the provider, for 6 months. Patient Goal Discontinued 4
--- OUTSIDE RECORDS SUMMARY | 2024-06-27 11:21 | XMS_ITS | Clinical Summary ---
Author Organization [facility] Address [address] [place] [address] Care Team Providers Care Otr Van Cdl Truck Driver Name Role Phone Unavailable Primary Care Provider Unavailabl e Allergies No known active allergies Medications No known medications Social History Tobacco Use Types Packs/Day Years Used Date Smoking Tobacco: Every Day Smokeless Tobacco: Never Sex and Gender Information Value Date Recorded Sex Assigned at Not on file Gender Identity Not on file Sexual Orientation Not on file Last Filed Vital Signs Vital Sign Reading Time Taken Comments Blood Pressure 149/100 08/12/2018 2:21 PM EDT Pulse 99 08/12/2018 2:21 PM EDT Temperature 36.9 ??C (98.4 ??F) 08/12/2018 2:21 PM ED T Respiratory Rate 20 08/12/2018 2:21 PM EDT Oxygen Saturation 95% 08/12/2018 2:21 PM EDT Inhaled Oxygen Concentration - - Weight 74.8 kg (165 lb) 08/12/2018 10:16 AM EDT Height - - Body Mass Index - - Plan of Treatment Health Maintenance Due Date Last Done Comments Hepatitis C Virus Screening 1961 HIV Screening 1974 DTaP/Tdap/Td Vaccines (1 - Tdap) 1980 Pap Smear (Ages 21-65) 1982 Mammogram 2001 Colonoscopy 2006 Pneumococcal Vaccines 50+ (1 of 1 - PCV) 07/08/2011 Zoster (Shingles) Vaccine (1 of 2) 07/08/2011 Influenza Vaccine 12/03/2023 COVID-19 Vaccine ( - 2023-2 5 season) 2024 RSV Vaccine 60 years and old er and Patients (1 - 1-dose 75+ series) 2036 Hepatitis B Vaccines Aged Out No long er eligible based on patient's age to complete this topic Pneumococcal Vaccine: Pediat pattie (0-5 Years) and At-Risk Patients (6 to 49 Years) Aged Out No longer eligible b ased on patient's age to complete this topic
== END ==
LOC: HO.CARD 10:08
PROVIDERS: PCP Internal Medicine; Visit Provider Internal Medicine Cardiovascular Disease
DX: I47.10 Supraventricular tachycardia, unspecified (principal); I50.21 Acute systolic (congestive) heart failure; I21.4 Non-ST elevation (NSTEMI) myocardial infarction; R79.89 Other specified abnormal findings of blood chemistry
CPT/HCPCS: 93017; J0280; J2785

== ENCOUNTER → 2024-06-27 10:12 | Outpatient (BNV) | payer MEDICARE, SELFPAY | PROVIDERS: PCP Internal Medicine | DX: R06.02 Shortness of breath (principal) | CPT/HCPCS: 78452; 93016; 93018 ==

== ENCOUNTER → 2024-07-04 10:43 | Outpatient (REF) | payer MEDICARE, SELFPAY ==
--- OUTSIDE RECORDS SUMMARY | 2024-07-04 12:36 | XMS_ITS | Continuity of Care Document ---
Author Organization [employer] [place] [facility] [place] Address 1 [facility] [address] [place] [address] Phone Care Team Providers Care School Speech Therapist Name Role Phone Benedict LOPEZ, Aqib Unavailable [...] Location Reason(s) For Visit Diagnoses Date Provider Critical access hospital, [address] [place] [address], [id number], tel:[phone] [place] No Information 5 Benedict Aqib. [address] [place], [id number], [place]. tel:[phone] Critical access hospital, 1 [facility], [place], [place], [id number], [place] tel:[phone] [place] No Information 5 Benedict Aqib. [address], [place], [place], [id number], [place]. tel:[phone] Critical access hospital, [address] [address], [place], [place], [id number], tel:[phone] [place] No Information 5 Benedict Aqib. [address] [place], [id number], [place]. tel:[phone] Critical access hospital, [address], [place], [place], [id number], [place] tel:[phone] [place] No Information 5 Benedict Aqib. [address] [place], [place], [id number], [place]. tel:[phone] Critical access hospital, [address], [place], [place], [id number], [place] tel:[phone] [place] No Information 5 Benedict Aqib. [address] [place], [place], [id number], [place]. tel:[phone] Critical [facility] hospital, [facility] [address], [place], [place], [id number], [place] tel:[phone] [place] No Information 4 Benedict Aqib. [address] [place], [id number], [place]. tel:[phone] Critical access hospital, [facility] [address], [place], [place], [id number], [place] tel:[phone] [place] Acute Visit (chief complaint) Chronic obstructive pulmonary disease, unspecified COPD typeChronic respiratory failure, unspecified whether with hypoxia or hypercapnia 4 Benedict Aqib. [address] [place], [place], [id number], [place]. tel:[phone] Critical access hospital, [facility] [facility], [place], [place], [id number], [place] tel:[phone] [place] No Information 4 Benedict Aqib. [address] [place], [place], [id number], [place]. tel:[phone] Critical access hospital, [address], [place], [place], [id number], [place] tel:[phone] [place] No Information 0 4 Benedict Aqib. [address] [place], [place], [id number], [place]. tel:[phone] Critical access hospital, 1 [facility], [place], [place], [id number], [place] tel:[phone] [place] No Information 4 Benedict Aqib. [address] [place], [place], [id number], [place]. tel:[phone] Critical access hospital, 1 [facility], [place], [place], [id number], [place] tel:[phone] [place] Semi-Annual (chief complaint) Chronic depressionAnxiety, generalizedHypertensiv e [...] hypercapnia 4 Benedict Aqib. [address] [place], [place], [id number], [place]. tel:[phone] Critical access hospital, [facility] [address] [facility], [place], [place], [id number], [place] tel:[phone] [place] Chronic obstructive pulmonary disease, unspecifiedChronic respiratory failure, unspecified whether with hypoxia or hypercapnia 4 Benedict Aqib. [address] [place], [place], [id number], [place]. tel:[phone] Critical access hospital, 1 [facility], [place], [place], [id number], [place] tel:[phone] [place] Heart failure, unspecified HF chronicity, unspecified heart failure type Sep-2 4 Benedict Aqib. [address] [place], [place], [id number], [place]. tel:[phone] Critical access hospital, [address], [place], [place], [id number], [place] tel:[phone] [place] No Information Jan-2 4 Iris Roxy. [address] [place], [id number], [place]. tel:[phone] Critical access hospital, [facility] [address], [place], [place], [id number], [place] tel:[phone] [place] Acute Visit (chief complaint) Suspected fracture of rib of left side Sep- 4 Iris Roxy. [address] [place], [place], [id number], [place]. tel:[phone] Critical access hospital, [address], [place], [place], [id number], [place] tel:[phone] [place] Heart failure, unspecified 4 Iris Roxy. [address] [place], [place], [id number], [place]. tel:[phone] Critical access hospital, [address], [place], [place], [id number], [place] tel:[phone] [place] No Information 0- 4 Os Jennyfer. [address] [place], [place], [id number], [place]. tel:[phone] Critical access hospital, [address], [place], [place], [id number], [place] tel:[phone] [place] No Information 0 3-202 4 Os Jennyfer. [address] [place], [place], [id number], [place]. tel:[phone] Critical access hospital, 1 [facility] [address] [facility], [place], [place], [id number], [place] tel:[phone] [place] Follow-up (chief complaint) Hypertensive heart disease with heart failureHeart failure, unspecified HF chronicity, unspecified heart failure typeChronic obstructive pulmonary disease, unspecified COPD typeTobacco use disorder 4 Os Jennyfer. [address] [place], [place], [id number], [place]. tel:[phone] Critical access hospital, 1 [facility], [place], [place], [id number], [place] tel:[phone] [place] Encounter for rehabilitation evaluation 4 Theroux Lyndsay. [address], [place], [address]. tel:[phone] Critical access hospital, 1 [facility] [address] [place] [address], [id number], [place] tel:[phone] [place] Heart failure, unspecified HF chronicity, unspecified heart failure type 4 Os Jennyfer. [address] [place], [place], [id number], [place]. tel:[phone] Critical access hospital, 1 [facility], [place], [place], [id number], [place] tel:[phone] [place] No Information 4 Os Jennyfer. [address] [place], [place], [id number], [place]. tel:[phone] Critical access hospital, 1 [facility], [place], [place], [id number], [place] tel:[phone] [place] Deficiency of other specified nutrient elementsEncounter for nutritional assessmentDiabetic nutritional counseling completed 4 Izzy Geni. [address] [place], [place], [id number], [place]. tel:[phone] Critical access hospital, 1 [facility] [address] [place] [address], [id number], [place] tel:[phone] [place] Encounter for rehabilitation evaluationAlteration in performance of activities of daily livingDifficulty in walking, not elsewhere classified 4 Gildardo Pierceh. [address] [place], [place], [id number]. tel:[phone] Critical access hospital, 1 [facility] [address] [facility], [place], [place], [id number], [place] tel:[phone] [place] Encounter for rehabilitation evaluation 4 Khoa De Santiago. [address], [place], [place], [id number], [place]. tel:[phone] Critical access hospital, 1 [facility] [address] [facility], [place], [place], [id number], [place] tel:[phone] [place] Post Enrollment Evaluation (chief complaint) Chronic obstructive [...] type Aug- 4 Os Jennyfer. [address] [place], [place], [id number], [place]. tel:[phone] Critical access hospital, 1 [facility] [address] [facility], [place], [place], [id number], [place] tel:[phone] [place] No Information 4 Os Jennyfer. [address] [place], [place], [id number], [place]. tel:[phone] Critical access hospital, [facility] [address], [place], [place], [id number], [place] tel:[phone] [place] No Information 3 Adrien Abbasijjwala. [address], [place], [place], [id number], . tel:[phone] Family History Family Member Type Diagnosis Age [...] Insurance type Covered constitution party ID Thalia villareal(s) [employer] [id number] [employer] [id number] [employer] [id number] Social History Type Description Quantity Date Captured [...] (related to Healthcare maintenance) ordered Referral Ordered: Fishing Accessories Maker (related to Encounter for general adult medical examination without abnormal findings) ordered Referral Ordered: Gastroenterology (related to Encounter for general adult medical examination without abnormal findings) ordered Referral Ordered: Referrals: Cardiology Appointment date/timeframe: 11/20/2023 ordered Referral Ordered: Referrals: Pulmonology Appointment date/timeframe: 08/05/2023 ordered Referral Ordered: Referrals: Dentistry. Evaluate and treat ordered Referral Ordered: Referrals: Gastroenterology. Evaluate and treat ordered Referral Ordered: Referrals: Fishing Accessories Maker. Evaluate and treat ordered Appointment Paola Romero BOOKED Future Order: Radiology Order Pu lmonary function tests ([id number]), Ordered on: Ordered Future Order: Radiology Order Ri bs X-ray; Bilateral, with Chest X-ray (4+ views) ([id number]), Ordered on: Ordered Future Order: Radiology Order Ma mmogram (Screen); Bilat, 2-view study of each breast, incl computer-aided detection when performed ([id number]), Ordered on: Ordered Future Order: Radiology Order Ch est CT, diagnostic, WITHOUT Contrast ([id number]), Ordered on: Ordered Future Order: Lab Order BASIC ME TABOLIC PANEL ([id number]), Scheduled for: Ordered Future Order: Lab Order BASIC ME TABOLIC PANEL ([id number]), Ordered on: Ordered History Of Present Illness [...] week. Patient was seen in the clinic today.per diem interpreter [employer], utilized for assessment. [employer] utilized for assessment. Patient currently lives in community. There have been 2 ER visits but no hospitalizations, SNF admission in the last six months.Diagnoses Reviewed.Transportation: needs transportConsults:-Dental: no dentures; dental referral -Podiatry: can be done by podiatry-Vision: no glasses but should have them as she has difficulty seeing; vision referral-Cardiology: [facility]: 10/13/23 at 9:30a-Pulmonology: [facility]: 08/05/23-GI: order in place for colonoscopyScreenings: Continuing to screen-Chest CT: <80, smoked in the last 15 years; order in place-Mammogram: order in place -Colonoscopy: order in place4 Ms:Mentation: all messed up ; don't remember certain things; didn't remember the diplomatic interpreter/translator who met her at her house recently -Orientation: A&Ox3-MOCA: in 08/2023-Cannot read in Cameroonian or Scottish-Family support: Has 2 sisters and 2 kids who don't visit (son did talk to diplomatic interpreter/translator-he is the HCP Aron)Medications:-Medications reviewed.Tobacco use- 2-3 [...] over a table and hitting her ribs. File Drawer Finisher used for visit. On exam ppt with [...] to open her door. Ppt only speaks Scottish therefore [employer] per diem interpreter line was utilized for assessment. No recent [...] enrollment exam. Patient had been seen in clinic.per diem interpreter [employer], utilized for assessment.[employer] utilized for assessment. Patient currently lives in community. There have been hospitalizations, SNF admission and/or ER visits in the last six months.-Several hospitalizations for fatigue typically [facility] (requesting records)Diagnoses Reviewed.Transportation: needs transportConsults:-Dental: no dentures; dental referral -Podiatry: can be done by podiatry-Vision: no glasses but should have them as she has difficulty seeing; vision referral-Cardiology: [facility]: 10/13/23 at 9:30a-Pulmonology: [facility]: 08/05/23-GI: order in place for colonoscopyScreenings: Continuing to screen-Chest CT: <80, smoked in the last 15 years; order in place-Mammogram: order in place -Colonoscopy: order in place4 Ms:Mentation: all messed up ; don't remember certain things; didn't remember the diplomatic interpreter/translator who met her at her house recently -Orientation: A&Ox3-MOCA: TBD-Cannot read in Cameroonian or Scottish-Family support: Has 2 sisters and 2 kids who don't visit (son did talk to diplomatic interpreter/translator-he is the HCP Aron)Medications:-Medications reviewed.Mobility:-Ambulates: Independent w/ walker-Falls: 4 times in the bathtub (last year)WMM:-Advance Directives reviewed: DNR/DNI, hospitalize-HCP: not invoked-Is there one thing you want to work on so you can do [most important thing]? nothing in particular-Anything you worry about? no concerns at this time Instructions Date Instruction Additional Infor candelario Patient's [...] and chr onic respiratory failureRequires 4L supplemental [id number] to use prednisoneVentolin as neededContinues to smoke [...] and chr onic respiratory failureRequires 4L supplemental [id number] to use prednisoneVentolin as neededContinues to smoke [...] disease Pt with Type 2 DMCur rently [id number] 5.9Continue MetforminDiscussed diet and exerciseWill continue to [...] iron deficiency anemia type Per preenrollment re cordsHad been seen by pulmonologyAdamantly refuses CPAP Related to Obstructive sleep apnea syndrome 3-4 cigarettes/day 5 0+/- yearsOrdering chest CT which ppt was agreeable w/ Related to Tobacco use disorder Requires oxygen 3-4L via NCContinues tobacco use-Ventolin, [...]
--- OUTSIDE RECORDS SUMMARY | 2024-07-04 12:36 | XMS_ITS | Clinical Summary ---
Author Organization [facility] Address [address] [place] [address] Care Team Providers Care Chinese Teacher Name Role Phone Unavailable Primary Care Provider [...]
== END ==
LOC: HO.CARD 10:43
PROVIDERS: PCP Internal Medicine; Visit Provider Internal Medicine Cardiovascular Disease
DX: I47.10 Supraventricular tachycardia, unspecified (principal); I50.21 Acute systolic (congestive) heart failure; I21.4 Non-ST elevation (NSTEMI) myocardial infarction; R79.89 Other specified abnormal findings of blood chemistry
CPT/HCPCS: 93225

== ENCOUNTER → 2024-07-04 10:45 | Outpatient (BNV) | payer MEDICARE, SELFPAY | PROVIDERS: PCP Internal Medicine; Visit Provider Internal Medicine | DX: I47.10 Supraventricular tachycardia, unspecified (principal) | CPT/HCPCS: 93227 ==

== ENCOUNTER 2024-08-29 14:47 | Inpatient (IN) | payer OTHER, SELFPAY ==
[2024-08-29] VITALS (8 sets, daily range): BP systolic 95–104; BP diastolic 50–71; PULSE 98–105; RESP 16–22; TEMP 36.2–36.7; O2SAT 88–99; BMI 23.3
--- NOTE | ~2024-08-29 | CT_ITS ---
CLINICAL HISTORY: lethargy CT head without contrast Comparison: CT/SR - CT HEAD/BRAIN WO IV CON - 08/29/24 16:19 EDT Findings: No intra-axial mass, midline shift, hydrocephalus, or acute hemorrhage. Periventricular and subcortical white matter hypoattenuation likely chronic small-vessel ischemic changes. There is no sinus or mastoid fluid. The orbits are within normal limits. No skull fracture. IMPRESSION: 1. No acute intracranial findings. This document has been electronically signed by: Rosey Perez MD on 08/30/2024 20:49:35
--- NOTE | ~2024-08-29 | CT_ITS ---
CLINICAL HISTORY: Hypoxia CT angiography chest with contrast. 3D Postprocessing. Comparison: CR - XR CHEST 1V - 08/30/24 17:45 EDT CR/SR - XR CHEST V - 08/29/24 16:30 EDT Findings: Dilated main pulmonary artery measuring 3.9 cm with RV/LV ratio>1, this can be seen in pulmonary arterial hypertension. No pulmonary embolus. Cardiomegaly. Trace pericardial effusion. The thoracic aorta is normal caliber. Visualized thyroid gland is within normal limits. No enlarged mediastinal or hilar lymph nodes. Upper lobe predominant emphysema. Mild dependent atelectasis. Lower lobe interstitial prominence without consolidation. Trace right pleural effusion. No pneumothorax. Endotracheal tube tip this is above the calli with the tip directed towards the right mainstem bronchus, recommend retraction by 1-2 cm. Gastric tube tip is in the stomach. No acute findings in the visualized upper abdomen. Chronic right rib fractures. Degenerative changes of the spine. Chronic L1 compression fracture. IMPRESSION: 1. Malpositioned endotracheal tube with tip directed towards right mainstem bronchus, recommend retraction by 1-2 cm 2. No pulmonary embolus. 3. Dilated main pulmonary artery and right ventricle, suggesting pulmonary arterial hypertension This document has been electronically signed by: Rosey Perez MD on 08/30/2024 21:05:56
--- NOTE | ~2024-08-29 | XR_ITS ---
CLINICAL HISTORY: fall Radiographs of the pelvisand right hip, 3 views Comparison: CT/REG/SR - CT ABDOMEN PELVIS WO IV CON - 09/07/22 23:45 EDT Findings: Fracture of the right proximal femur involving the femoral neck. No dislocation. Mild degenerative change. Bone mineralization is decreased. Soft tissue swelling. Impression: Fracture of the right femoral neck. This document has been electronically signed by: Pura Tolliver MD on 08/29/2024 16:46:36
--- NOTE | ~2024-08-29 | XR_ITS ---
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 Endotracheal tube tip is 2.8 cm above the calli. Distal gastric tube is below the left hemidiaphragm, tip is outside the field of view. Normal heart size. Aortic atherosclerosis. No acute fracture. IMPRESSION: 1. Improving bilateral infrahilar opacities. 2. Endotracheal tube tip 2.8 cm above calli. 3. Gastric tube below left hemidiaphragm. This document has been electronically signed by: Rosey Perez MD on 08/30/2024 18:34:41
--- NOTE | ~2024-08-29 | XR_ITS ---
CLINICAL HISTORY: fall Chest Radiograph Comparison: CR - XR CHEST 1V - 06/15/24 21:13 EST CR/SR - XR CHEST 1V - 06/21/23 06:49 EST Findings: Cardiomegaly. Unchanged mediastinal contours. No pneumothorax. Interstitial prominence. No pleural effusion. Normal upper abdomen. No acute fracture. Impression: Interstitial prominence may indicate mild edema. This document has been electronically signed by: Pura Tolliver MD on 08/29/2024 16:48:40
--- NOTE | ~2024-08-29 | CT_ITS ---
CLINICAL HISTORY: fall, dizziness, head injury CT head without contrast Comparison: 05/16/23 Findings: No acute hemorrhage. No extra-axial fluid collection. No hydrocephalus, mass-effect or herniation. Henderson-white differentiation is maintained. There is patchy hypoattenuation of the periventricular and deep white matter, which is most likely the sequela of severe chronic small vessel ischemic disease and is similar to the prior study. No acute orbital pathology. No acute soft tissue abnormality. No fracture. The visualized paranasal sinuses are predominantly clear. The mastoid air cells are clear. Impression: No acute findings. This document has been electronically signed by: Pura Tolliver MD on 08/29/2024 17:49:19
--- NOTE | ~2024-08-29 | XR_ITS ---
EXAMINATION: XR CHEST CLINICAL INFORMATION: worsened hypoxia COMPARISON: Chest 08/29/2024 TECHNIQUE: Frontal view of the chest was obtained. FINDINGS: Patient is tilted to the left side. The lungs are moderately expanded with prominent bilateral interstitial opacities predominantly in the mid and lower lobes. The left lung base is not completely included in the [id number]. Suspect left lung effusion or consolidation. Heart size is borderline enlarged. Pulmonary vascularity appears normal. No gross bony abnormality. XR/XR chest 1V IMPRESSION: Prominent bilateral interstitial opacities in mid and lower lobes. Electronically signed by: Lisandro Ly MD 08/30/2024 08:37 AM EDT
--- NOTE | ~2024-08-29 | CT_ITS ---
CLINICAL HISTORY: rapid decompensation CT abdomen and pelvis with contrast Comparison: CT - CT ANGIO CHEST PE PROTOCOL - 08/30/24 19:53 EDT CR - XR HIP RT W PEL1V - 08/29/24 16:[address]/REG/SR - CT ABDOMEN PELVIS WO IV CON - 09/07/22 23:45 EDT Findings: Bibasilar interstitial prominence. Trace right pleural effusion. Trace pericardial effusion. Atrophic pancreas. Liver, spleen, gallbladder, and adrenal glands are within normal limits. No hydronephrosis. Symmetric contrast enhancement of the kidneys. Bilateral renal cysts. Gastric tube tip in the stomach. Colonic diverticulosis without acute inflammation. No bowel obstruction, pneumatosis or pneumoperitoneum. Aortic atherosclerosis. No aneurysm. Hysterectomy. Castle catheter in the bladder. Degenerative changes of the spine. Chronic fracture of L1. Right femoral neck fracture. IMPRESSION: 1. No acute intra-abdominal findings. 2. Right femoral neck fracture. This document has been electronically signed by: Rosey Perez MD on 08/30/2024 21:16:17
--- NOTE | ~2024-08-29 | XR_ITS ---
CLINICAL HISTORY: TLC 1 view chest x-ray Comparison: CR - XR CHEST 1V - 08/30/24 17:45 EDT Findings: Persistent central vascular congestion with diffuse interstitial/patchy opacities. No significant pleural effusion or pneumothorax. ETT tip terminates 5 cm above calli. Enteric tube courses below the diaphragm, tip not seen. Similar prominent/enlarged cardiac silhouette. Left IJ CVC tip projects near the cavoatrial junction. No acute fracture. IMPRESSION: 1. ETT tip terminates 5 cm above calli. 2. Left IJ CVC tip projects near the cavoatrial junction. 3. Persistent central vascular congestion with diffuse interstitial/patchy opacities. This document has been electronically signed by: Taye Trujillo MD on 08/31/2024 06:15:13
--- NOTE | ~2024-08-29 | CT_ITS ---
CLINICAL HISTORY: fall, neck pain CT cervical spine without contrast Comparison: None Findings: Mild multilevel anterolisthesis, degenerative. No fracture. Incomplete fusion of the anterior and posterior arches of C1. Well corticated ossific fragment superior to the dens is likely a persistent ossiculum terminale. No severe central spinal canal stenosis. No epidural hematoma. Normal thickness of the prevertebral soft tissues. Substantial paraseptal emphysema and advanced destructive centrilobular emphysema. Nodular scarring at the left lung apex measuring 7 mm. Impression: No acute findings. This document has been electronically signed by: Pura Tolliver MD on 08/29/2024 17:45:56
--- NOTE | 2024-08-29 16:04 | ECG_ITS ---
Test Reason : fall Blood Pressure : */* mmHG Vent. Rate : 94 BPM Atrial Rate : 94 BPM P-R Int : 158 ms QRS Dur : 126 ms QT Int : 412 ms P-R-T Axes : 74 4 13 degrees QTcB Int : 515 ms Normal sinus rhythm Non-specific intra-ventricular conduction block Inferior infarct , age undetermined Abnormal ECG When compared with ECG of 15-Jun-2024 22:00, Sinus rhythm has replaced Wide QRS tachycardia Vent. rate has decreased by 71 bpm Referred By: Racheal Cuello Electronically Signed By: Kemar Curry
--- NOTE | 2024-08-29 16:07 | ED.FALL ---
HPI - Fall General Chief Complaint: Fall Stated Complaint: WIT FALL,R HIP PAIN PER EMS Time Seen by Provider: 08/29/24 15:52 Source: patient, EMS, old records reviewed and director chemistry Mode of arrival: EMS Limitations: no limitations History of Present Illness ED Provider: DR. Cuello HPI Narrative: 64-year-old female with PMH of HFrEF 30-35%, COPD with chronic hypoxemia respiratory failure on 4 L O2, pulmonary hypertension, non insulin dm 2, HTN, HLD, SVT, patient was coming from a her doctor appointment was supposed to get assistant accounting manager to get 4 steps of stairs into her building and she did not as a result patient lost balance and fell from standing position on her right side complaining of right hip pain, complaining also of neck pain, no head injury, no LOC. Patient at her baseline breathing with no worsening of breathing. Related Data Home Medications ?Medication ?Instructions ?Recorded ?Confirmed sertraline 100 mg tablet 200 mg PO DAILY 04/30/23 06/16/24 tiotropium bromide 18 mcg capsule 1 cap inhalation DAILY 04/30/23 04/07/24 with inhalation device (Spiriva with HandiHaler) losartan 50 mg tablet 100 mg PO DAILY 06/21/23 06/16/24 atorvastatin 10 mg tablet 10 mg PO DAILY 06/16/24 06/16/24 omeprazole 20 mg capsule,delayed 20 mg PO DAILY@0630 06/16/24 06/16/24 release sennosides 8.6 mg tablet (senna) 8.6 mg PO DAILY 06/16/24 06/16/24 spironolactone 25 mg tablet 25 mg PO DAILY 06/16/24 06/16/24 trazodone 50 mg tablet 50 - 100 mg PO BEDTIME 06/16/24 06/16/24 Previous Rx's ?Medication ?Instructions ?Recorded nebulizers #1 ea 05/28/23 prednisone 5 mg tablet 5 mg PO DAILY 30 days #30 tabs 06/08/23 quetiapine 50 mg tablet 50 mg PO BID 90 days #180 tabs 08/05/23 folic acid 1 mg tablet 1 mg PO DAILY #90 tabs 09/21/23 isosorbide mononitrate 30 mg 30 mg PO DAILY 90 days #90 tabs 10/05/23 tablet,extended release 24 hr furosemide 40 mg tablet (Lasix) 40 mg PO DAILY 90 days #90 tabs 11/18/23 metformin 500 mg tablet 500 mg PO DAILY 90 days #90 tabs 05/27/24 montelukast 10 mg tablet 10 mg PO BEDTIME #30 tabs 05/27/24 diltiazem HCl 240 mg 240 mg PO DAILY #30 caps 06/17/24 capsule,extended release 24 hr empagliflozin 10 mg tablet 10 mg PO DAILY #30 tabs 06/17/24 (Jardiance) levalbuterol HCl 1.25 mg/3 mL 1.25 mg (3 mL) inhalation Q4H PRN 06/17/24 solution for nebulization shortness of breath or wheezing #90 mL levalbuterol tartrate 45 2 puff inhalation Q4-6H PRN 06/17/24 mcg/actuation aerosol inhaler shortness of breath or wheezing #15 grams Allergies Allergy/AdvReac Type Severity Reaction Status Date / Time nicotine [Nicotine] Allergy Mild ITCHING Verified 08/29/24 15:45 WITH THE PATCHES topiramate Allergy Mild inadequealte Verified 08/29/24 15:45 response Review of Systems Review of Systems: All other systems are reviewed and are negative Constitutional: Reports as per HPI and Reports no additional constitutional complaints Eyes: Reports as per HPI and Reports no additional eye complaints Reports system reviewed and no additional complaints, except as documented Cardiovascular: Reports as per HPI and Reports no additional cardiovascular complaints Respiratory: Reports as per HPI and Reports no additional respiratory complaints Gastrointestinal: Reports as per HPI and Reports no additional gastrointestinal complaints Genitourinary: Reports no additional female genitourinary complaints Musculoskeletal: Reports no additional musculoskeletal complaints Skin/Breast: Reports system reviewed and no additional complaints, except as docu Psychiatric: Reports no additional psychiatric complaints Endocrine: Reports no additional endocrine complaints Hematologic/Lymphatic: Reports no additional hematologic/lymphatic complaints Allergic/Immunologic: Reports no additional allergic/immunologic complaints Reports system reviewed and no additional complaints, except as documented and Reports Abnormal speech present [facility] Past Medical History Medical History Influenza A Asthma with exacerbation Hypoglycemia associated with type 2 diabetes mellitus HTN (hypertension) Acute hypoxic respiratory failure CHF (congestive heart failure) NSTEMI (non-ST elevated myocardial infarction) Hypoxic respiratory failure Chronic lung disease Congestive heart failure Mild recurrent major depression Hospital discharge follow-up Severe chronic obstructive pulmonary disease Diabetes Mitral regurgitation Chest pain Lumbar degenerative disc disease Right lower lobe pneumonitis Congestive heart failure Acute and chronic respiratory failure with hypoxia Respiratory failure with hypoxia and hypercapnia Atelectasis, right Hypertensive emergency Pulmonary hypertension Osteoporosis Essential hypertension Supraventricular tachycardia Nonischemic cardiomyopathy Non-rheumatic mitral regurgitation Tobacco abuse Depression Anxiety Chronic respiratory failure HFrEF (heart failure with reduced ejection fraction) KELLIE (obstructive sleep apnea) HLD (hyperlipidemia) Surgical History H/O hysterectomy for benign disease History of total abdominal hysterectomy Bilateral ankle fractures Family History Family History Father No problems noted. Mother Liver cancer Hypertension Social History Social History Household Members: None Household Members Other:: 1 Housing: House Do you presently have visiting nurse or other home services: Yes (aid comes 2 hours a day) Unable to assess alcohol history related to: Unable to respond Alcohol intake: never Patient Tobacco Use Status: Current everyday Tobacco user Tobacco use type: Cigarette Cigarettes Per Day: 5 Years Smoked: 50 +/- Smoked in Last 30 Days: Yes e-Cigarette/Vaping Use: Never Used Second Hand Smoke Exposure: No Use of substances other than those prescribed or required for medical reasons: No Advance Directives: Yes Advance Directives on File: Yes Advance Directives Date on File: 05/18/23 Patient : No service: No Current occupational status: disabled Cognitive needs: Yes Hearing needs: No Vision needs: No Physical Exam Vital Signs: Vital Signs: Last Vital Signs Temp 97.6 F 08/29/24 17:23 Pulse 100 08/29/24 17:23 Resp 16 08/29/24 17:23 BP 104/51 L 08/29/24 17:23 Pulse Ox 92 08/29/24 17:23 O2 Del Method Nasal Cannula 08/29/24 17:23 O2 Flow Rate 6 08/29/24 17:23 Oxygen Flow Rate 4 08/29/24 15:29 BMI result Body Mass Index 23.3 Vital signs have been reviewed and appear to be correct. Blood pressure elevated. Heart rate slightly elevated. Respiratory rate normal. Temperature normal. Oxygen saturation is slightly low. Appearance: Alert. Oriented X3. No acute distress. Head: Normal external exam. Normocephalic. Atraumatic. No Taylor signs noted. No raccoon eyes noted Eyes: PERRLA. EOMI. Conjunctiva and sclera normal. Eyelids normal. ENT: TM's Normal. Pharynx normal. Uvula midline. Moist mucous membranes. No trismus noted. No drooling noted. No muffled voice noted. Neck: Normal inspection. Neck supple. FROM. No adenopathy. Thyroid Normal. No meningeal signs. No neck mass noted. CVS: Normal heart rate and rhythm. Heart sound normal. No murmurs noted. Pulses normal throughout. Respiratory: No respiratory distress. Painless inspiration. Breath sounds normal. No wheezes/rales/rhonchi noted. Chest nontender. No accessory muscle usage noted or decreased air movement noted. Abdomen: Soft and nontender. Bowel sounds normal in all 4 quadrants. No distention noted. No organomegaly noted. No visible injury noted. Back: No CVA tenderness. Full range of motion noted. Skin: Skin warm and dry. Normal skin color. Normal skin turgor. No rashes/lesions/lacerations noted. Extremities: Right hip tenderness, no deformity, no shortness, no external rotation. Neuro: Oriented X 3. Cranial nerve exam: II-XII are grossly intact No motor deficit. No sensory deficit. Reflexes normal. Course Reevaluation(s) Reevaluation #1: Impacted right hip fracture. EKVIN Case discussed with Dr. Latham will admit the patient for possible surgery tomorrow after medical clearance. Admit to medical service. Time: 16:53 Medications Administered Discontinued Medications Generic Name Dose Route Start Last Admin Trade Name Vincentq PRN Reason Stop Dose Admin Ketorolac Tromethamine 15 mg 08/29/24 16:43 08/29/24 17:23 Ketorolac Tromethamine 15 Mg/Ml Vial IVPUSH 08/29/24 16:44 15 mg ONCE ONE Administration Morphine Sulfate 2 mg 08/29/24 16:43 08/29/24 17:23 Morphine Sulfate 2 Mg/Ml Cartridge IVPUSH 08/29/24 16:44 2 mg ONCE ONE Administration Protocol Medical Decision Making Differential Diagnosis Differential Diagnoses: The differential diagnosis associated with the presentation includes (Intracranial bleed, cervical spine injury, right hip fracture, pneumonia, pneumothorax, rib fracture, electrolyte derangement, severe anemia, COPD exacerbation.) Admission/Observation Consideration of admission/observation: Escalation of care including admission/observation considered Consult Healthcare Provider Management of the patient was discussed with: Hospitalist (Dr. Santamaria) and Deck Specialist (Dr. Latham) Lab Data MDM Lab Attestation statement: I reviewed the patient's lab results. 08/29/24 17:22 08/29/24 17:22 Labs: Lab Results 08/29/24 Range/Units 17:22 WBC 12.0 H (4.8-10.8) X10*3/uL RBC 3.92 L (4.20-5.50) X10*6/uL Hgb 11.3 L (12.0-16.0) g/dl Hct 34.1 L (37.0-47.0) % MCV 87.0 (80.0-98.0) fL MCH 28.8 (27.0-33.0) pg MCHC 33.1 (31.0-35.0) g/dl RDW 15.3 (11.0-16.0) % Plt Count 185 (160-400) X10*3/uL MPV 10.0 (9.4-12.3) fL Immature Gran % (Auto) 0.7 H (0.0-0.4) % Neut % (Auto) 85.1 H (45-73) % Lymph % (Auto) 9.4 L (20-40) % [place] % (Auto) 4.4 (2-11) % Eos % (Auto) 0.3 (0-4) % Baso % (Auto) 0.1 (0-2) % Lymph # (Auto) 1.1 L (1.2-4.9) X10*3/uL [place] # (Auto) 0.5 (0.1-1.2) X10*3/uL Eos # (Auto) 0.0 (0.0-0.4) X10*3/uL Baso # (Auto) 0.0 (0.0-0.2) X10*3/uL Abs Immat Gran (auto) 0.08 H (0.00-0.03) X10*3/uL Absolute Neuts (auto) 10.2 H (2.0-8.3) x10*3/uL Absolute Nucleated RBC 0.000 (0.0-0.012) X10*3/uL Nucleated RBC % (auto) 0.0 (0.0-0.2) /100WBC Sodium 134 L (135-145) mmol/L Potassium 4.4 (3.3-5.1) mmol/L Chloride 101 (96-108) mmol/L Carbon Dioxide 21 L (22-29) mmol/L Anion Gap 16 (12-20) BUN 36 H (9-16) mg/dL Creatinine 2.34 H (0.5-1.4) mg/dL Estim Creat Clear Calc 18.5 Estimated GFR 21 Random Glucose 199 H (60-115) mg/dL Calcium 8.8 D (8.4-10.2) mg/dL Total Bilirubin 0.2 (0.0-1.0) mg/dL Direct Bilirubin 0.2 (0.0-0.5) mg/dL AST 24 (5-31) U/L ALT 22 (0-31) U/L Total Protein 7.3 (6.5-8.0) g/dL Albumin 3.9 (3.5-5.0) g/dL Lipase 71 (8-78) U/L Independent Interpretation I performed an independent interpretation of an: Plain X-Ray (Left hip: Impacted left femoral neck fracture.) and CT Scan (Head/cervical spine: No acute fracture.) Radiology Impression Discussion of test interpretation with radiology: I have reviewed the radiologist's reading. Discharge Plan Discharge Clinical Impression: Closed right hip fracture, KEVIN (acute kidney injury) Patient Disposition: Admitted As Inpatient Print Language: Ghanaian
[2024-08-29] MEDS: Ketorolac Tromethamine 15 MG/ML VIAL IVPUSH (17:23)
[2024-08-29] MEDS: Morphine Sulfate 2 MG/ML CARTRIDGE IVPUSH (17:23)
[2024-08-29 17:28] LABS: MANUAL DIFF FLAG NO
[2024-08-29 17:31] LABS: Basophils Percent Auto 0.1 % (0-2); Eosinophils Percent Auto 0.3 % (0-4); Hematocrit 34.1 % (37.0-47.0); Hemoglobin 11.3 g/dl (12.0-16.0); Imm Gran Abs Auto 0.08 X10*3/uL (0.00-0.03); Imm Gran Pct Auto 0.7 % (0.0-0.4); Lymphocytes Absolute Auto 1.1 X10*3/uL (1.2-4.9); Lymphocytes Percent Auto 9.4 % (20-40); Mean Corpuscular HGB Conc 33.1 g/dl (31.0-35.0); Mean Corpuscular Hemoglobin 28.8 pg (27.0-33.0); Monocytes Absolute Auto 0.5 X10*3/uL (0.1-1.2); Monocytes Percent Auto 4.4 % (2-11); Neutrophils Absolute Auto 10.2 x10*3/uL (2.0-8.3); Neutrophils Percent Auto 85.1 % (45-73); Platelet Count 185 X10*3/uL (160-400); Red Blood Count 3.92 X10*6/uL (4.20-5.50); Red Cell Distribution Width 15.3 % (11.0-16.0)
[2024-08-29 17:55] LABS: Alanine Aminotransferase 22 U/L (0-31); Albumin Level 3.9 g/dL (3.5-5.0); Anion Gap 16 (12-20); Aspartate Amino Transferase 24 U/L (5-31); Bilirubin Direct 0.2 mg/dL (0.0-0.5); Bilirubin Total 0.2 mg/dL (0.0-1.0); Blood Urea Nitrogen 36 mg/dL (9-16); Calcium 8.8 mg/dL (8.4-10.2); Carbon Dioxide 21 mmol/L (22-29); Chloride 101 mmol/L (96-108); Creatinine Clr Calc Pharmacy 18.5; Estimated Glomerular Filt Rate 21; Glucose Random 199 mg/dL (60-115); Lipase 71 U/L (8-78); Potassium 4.4 mmol/L (3.3-5.1); Sodium 134 mmol/L (135-145); Total Protein 7.3 g/dL (6.5-8.0)
--- NOTE | 2024-08-29 18:24 | PC.NURSE ---
hospitalist and rejected items clerk at bedside.
[2024-08-29 18:30] LABS: Appearance Urine Clear; Color Urine Yellow; Glucose Urine UA >=1000 mg/dL (Negative); Leukocyte Esterase Urine Negative (Negative); Nitrite Urine Negative (Negative); PH 5.5 (5.0-9.0); Specific Gravity - Urine 1.015 (1.005-1.025); UMIC TRIGGER UACC YES; Urine Blood Negative (Negative); Urine Ketones Negative (Negative); Urine Protein Negative (Neg-Trace)
--- NOTE | 2024-08-29 18:32 | PM.IMHP ---
History of Present Illness Date of Service: 08/29/24 Attending physician on admission: Ethan Santamaria Chief Complaint: Right hip pain after fall at home Pt is a 64-year-old female with a PMH significant for?HFrEF (EF 40-45%), COPD with chronic hypoxic respiratory failure on 4L home O2, pulmonary hypertension, [id number] type 2 diabetes, HTN, HLD, and hx of SVT who presents to the ED with?right hip pain secondary to fall at home. Pt reports she was coming home from a PCP appointment accompanied by a [employer]ERRY [employer] ROUND ATTENDANT. Pt set her walker to the side to climb the stairs to the lobby of her apartment building when she became dizzy. Called out to her [employer]ERR[employer] ROUND ATTENDANT for assistance for apparently did not respond in time. Pt then fell over on her right side and experienced right hip pain. MERRY [employer] ROUND ATTENDANT called EMS who brought her to the ED for further evaluation. Pt reports has chronic right-sided weakness, and chronic intermittent dizziness. Currently pt has no other acute complaints other than right hip pain. No numbness or tingling in lower extremities. Denies loss of bowel or bladder function. No fever, chills, nausea, vomiting, abdominal pain. No diarrhea. Denies chest pain/pressure, palpitations. No SOB or difficulty breathing. In the ED pt was tachycardic up to 102 and was soft BP of 104/51. Labs were significant for leukocytosis 12.0, sodium 134, BUN 36, creatinine 2.34, and troponin 43.7. Stable H&H. Hepatic function WNL. UA negative for UTI. CXR showed interstitial prominence possibly indicative of mild edema. CT of head and C-spine negative for acute abnormality. X-ray of hip and pelvis showed fracture of right femoral neck. EKG demonstrated normal sinus rhythmc with QTc of 515. Pt was treated in the ED with ketorolac and morphine. Pt is admitted to the hospital for treatment and further evaluation of right femoral neck fracture requiring surgical intervention. Review of Systems Review of Systems: Negative except for that which is stated in the HPI. COUNT INCLUDES THE [facility] Medical History Influenza A Asthma with exacerbation Hypoglycemia associated with type 2 diabetes mellitus HTN (hypertension) Acute hypoxic respiratory failure CHF (congestive heart failure) NSTEMI (non-ST elevated myocardial infarction) Hypoxic respiratory failure Chronic lung disease Congestive heart failure Mild recurrent major depression Hospital discharge follow-up Severe chronic obstructive pulmonary disease Diabetes Mitral regurgitation Chest pain Lumbar degenerative disc disease Right lower lobe pneumonitis Congestive heart failure Acute and chronic respiratory failure with hypoxia Respiratory failure with hypoxia and hypercapnia Atelectasis, right Hypertensive emergency Pulmonary hypertension Osteoporosis Essential hypertension Supraventricular tachycardia Nonischemic cardiomyopathy Non-rheumatic mitral regurgitation Tobacco abuse Depression Anxiety Chronic respiratory failure HFrEF (heart failure with reduced ejection fraction) KELLIE (obstructive sleep apnea) HLD (hyperlipidemia) Family History Father No problems noted. Mother Liver cancer Hypertension Surgical History H/O hysterectomy for benign disease History of total abdominal hysterectomy Bilateral ankle fractures Social History Household Members: None Household Members Other:: 1 Housing: House Do you presently have visiting nurse or other home services: Yes (aid comes 2 hours a day) Unable to assess alcohol history related to: Unable to respond Alcohol intake: never Patient Tobacco Use Status: Current everyday Tobacco user Tobacco use type: Cigarette Cigarettes Per Day: 5 Years Smoked: 50 +/- e-Cigarette/Vaping Use: Never Used Second Hand Smoke Exposure: No Advance Directives Date on File: 05/18/23 service: No Current occupational status: disabled Cognitive needs: Yes Hearing needs: No Vision needs: No Meds Allergies Allergy/AdvReac Type Severity Reaction Status Date / Time nicotine [Nicotine] Allergy Mild ITCHING Verified 08/29/24 15:45 WITH THE PATCHES topiramate Allergy Mild inadequealte Verified 08/29/24 15:45 response Active Medications: Current Medications Lactated Ringer's (Lr) 1,000 mls @ 100 mls/hr IVCONT .Q10H WALDEMAR Home Medications ?Medication ?Instructions ?Recorded ?Confirmed ?Last Taken ?Type sertraline 100 mg tablet 200 mg PO DAILY 04/30/23 06/16/24 05/25/23 History tiotropium bromide 18 mcg capsule 1 cap inhalation DAILY 04/30/23 04/07/24 05/25/23 History with inhalation device (Spiriva with HandiHaler) losartan 50 mg tablet 100 mg PO DAILY 06/21/23 06/16/24 Unknown History atorvastatin 10 mg tablet 10 mg PO DAILY 06/16/24 06/16/24 Unknown History omeprazole 20 mg capsule,delayed 20 mg PO DAILY@0630 06/16/24 06/16/24 Unknown History release sennosides 8.6 mg tablet (senna) 8.6 mg PO DAILY 06/16/24 06/16/24 Unknown History spironolactone 25 mg tablet 25 mg PO DAILY 06/16/24 06/16/24 Unknown History trazodone 50 mg tablet 50 - 100 mg PO BEDTIME 06/16/24 06/16/24 Unknown History albuterol sulfate 90 mcg/actuation inh inhalation Q6H PRN Shortness 08/29/24 Unknown History aerosol inhaler Of Breath Or Wheezing Physical Exam Vital Signs and Narrative: Vital Signs: Last Vital Signs Temp 97.6 F 08/29/24 17:23 Pulse 100 08/29/24 17:23 Resp 16 08/29/24 17:23 BP 104/51 L 08/29/24 17:23 Pulse Ox 92 08/29/24 17:23 O2 Del Method Nasal Cannula 08/29/24 17:23 O2 Flow Rate 6 08/29/24 17:23 Oxygen Flow Rate 4 08/29/24 15:29 BMI result Body Mass Index 23.3 General: AOx3, no acute distress Resp: CTA bilaterally CVS: S1, S2, RRR GI: +BS, NT, no distention Skin: Warm, dry Neuro: Cranial nerves II-XII grossly intact bilaterally. Motor grossly intact bilaterally Extremities: No edema. Right leg shortened and externally rotated. Right hip ROM reduced secondary to pain. Psych: Appropriate affect Results Labs 08/29/24 17:22 08/29/24 17:22 Labs: Laboratory Results - last 24 hr 08/29/24 17:22 MCV 87.0 MCH 28.8 MCHC 33.1 RDW 15.3 Plt Count 185 MPV 10.0 Immature Gran % (Auto) 0.7 H Neut % (Auto) 85.1 H Lymph % (Auto) 9.4 L [place] % (Auto) 4.4 Eos % (Auto) 0.3 Baso % (Auto) 0.1 Lymph # (Auto) 1.1 L [place] # (Auto) 0.5 Eos # (Auto) 0.0 Baso # (Auto) 0.0 Abs Immat Gran (auto) 0.08 H Absolute Neuts (auto) 10.2 H Absolute Nucleated RBC 0.000 Nucleated RBC % (auto) 0.0 Anion Gap 16 Estim Creat Clear Calc 18.5 Estimated GFR 21 Random Glucose 199 H Calcium 8.8 D Total Bilirubin 0.2 Direct Bilirubin 0.2 AST 24 ALT 22 Total Protein 7.3 Albumin 3.9 Lipase 71 Assessment and Plan (1) KEVIN (acute kidney injury): Status: Acute (2) Closed right hip fracture: Status: Acute Plan Pt is a 64-year-old female with a PMH significant for?HFrEF (EF 40-45%), COPD with chronic hypoxic respiratory failure on 4L home O2, pulmonary hypertension, [id number] type 2 diabetes, HTN, HLD, and hx of SVT who presents to the ED with?right hip pain secondary to fall at home. Pt is admitted to the hospital for treatment and further evaluation of right femoral neck fracture requiring surgical intervention. Right hip fracture X-ray showing fracture of right femoral neck Secondary to fall at home Orthopedics consulted, plan on surgery in the morning Clear liquid diet for now, NPO past midnight Pain management RCRI 3 points, pt is moderate to high-risk for planned procedure Treat KEVIN as below, trend troponin No other workup or treatment indicated at this time if 2nd troponin flat KEVIN Creatinine 2.34 at time of presentation, elevated from 1.03 on 06/17/2024 Likely secondary to hypovolemia in the setting of diuretics Will hold spironolactone and furosemide Will place on maintenance fluids Trend labs Elevated troponin Initial troponin 43.7 Pt with chronically elevated troponins EKG without significant ischemic changes from prior Likely type 2 in the setting of increased demand Repeat troponin Monitor on telemetry [id number]-[id number] type [address] on sliding scale insulin Diabetic diet once diet advanced HFrEF Not in acute exacerbation Hold home diuretics due to KEVIN Low-salt diet Monitor volume status COPD Not in acute exacerbation Continue home inhalers, chronic prednisone Continue chronic supplemental O2 on 4L NC Mood disorder Continue quetiapine, sertraline Full Code Attending:?Dr. Santamaria DVT Prophylaxis: Pneumatic compression due to impending surgery Pt will require a hospitalization of at least two nights for treatment of?right hip fracture secondary to fall at home requiring surgical intervention. Pt also has KEVIN likely secondary to diuretic use and will require IVF and close monitoring of labs and volume status due to hx of CHF. Quality Stroke Does the patient have a stroke diagnosis?: No VTE Prior VTE?: No VTE Risk Level:: Medical - moderate - high VTE Device Contraindication: N/A - Device Ordered VTE Drug Contraindication: Treatment Not Indicated
[2024-08-29 18:33] LABS: Prothrombin Time 11.7 SEC (10.9-12.4)
--- OUTSIDE RECORDS SUMMARY | 2024-08-29 18:42 | XMS_ITS | Clinical Summary ---
Author Organization [facility] Address [address] [place] [address] Care Team Providers Care Professor Criminal Justice Name Role Phone Unavailable Primary Care Provider Unavailabl e Allergies No known active allergies Medications No known medications Social History Tobacco Use Types Packs/Day Years Used Date Smoking Tobacco: Every Day Smokeless Tobacco: Never Comments Unknown Sex and Gender Information Value Date Recorded Sex Assigned at Not on file Legal Sex Female 6:11 PM EST Gender Identity Not on file Sexual Orientation [...] on patient's age to complete this topic Insurance MEDICAID OUT OF STATE [facility]
--- OUTSIDE RECORDS SUMMARY | 2024-08-29 18:42 | XMS_ITS | Continuity of Care Document ---
Author Organization [employer] [facility] Address 1 Counts Include 234 Beds At [facility] [address] [place] [address] Phone Care Team Providers Care Export Freight Specialist Name Role Phone Benedict LOPEZ, Marybel Unavailable Unavailable Allergies, Adverse Reactions, Alerts Substance Reaction Status Criticality nicotine Active No Information topiramate Active No Information Medications Medication Instructions Dosage Effective Dates (start - stop) Status Comments SERTRALINE 100MG TAKE 2 TABLET BY ORA L ROUTE EVERY DAY - Active folic acid 1 mg tablet take 1 tablet by oral route every day 1 MG - Active omeprazole 20 mg capsule,delayed release take 1 capsule by oral route every day before a meal 20 MG - Active prednisone 5 mg tablet take 1 tablet by oral route every day 5 MG - Active Seroquel 50 mg tablet take 1 tablet by o ral route twice a day - Active spironolactone 25 mg tablet take 1 tablet by oral route every day 25 MG - Active trazodone 50 mg tablet take 2 tablets by oral route at bedtime - Active diltiazem ER 240 mg tablet,extended release 24 hr take 1 tablet by oral route every day 240 MG - Active furosemide 40 mg tablet take 1 tablet by oral route every day 40 MG - Active Jardiance 10 mg tablet take 1 tablet by oral route every day in the morning 10 MG - Active losartan 100 mg tablet take 1 tablet by oral route every day 100 MG - Active metformin 500 mg tablet take 1 tablet by oral route every day with morning - Active montelukast 10 mg tablet take 1 tablet by oral route every day in the evening 10 MG - Active Spiriva Respimat 2.5 mcg/actuation solution for inhalation inhale 2 puff by inhalation route every day at the same time each day 5 MCG - Active isosorbide mononitrate ER 30 mg tablet,extended release 24 hr take 1 tablet by oral route every day in the morning 30 MG - Active Lipitor 10 mg tablet TAKE 1 TABLET BY OR AL ROUTE EVERY DAY - Active lidocaine 4 % topical patch Use 1 patch topically on the back as needed every day - Active acetaminophen 500 mg tablet take 2 tablet by oral route every 8 hours for two weeks - Active senna 8.6 mg tablet Take [...] Location Reason(s) For Visit Diagnoses Date Provider [facility], [address] [place] [address], [id number], tel:[phone] [place] No Information 5 Benedict Aqib. [address] [place], [place], [id number], [place]. tel:[phone] [facility], [address] [place] [address], [place], [place], [id number], [place] tel:[phone] [place] No Information 5 Benedict Aqib. [address], [place], [place], [id number], [place]. tel:[phone] [facility], [address] [address], [place], [place], [id number], tel:[phone] [place] Encounter for rehabilitation evaluation 5 Soledad Dora. [address] [place], [place], [id number], [place]. tel:[phone] [facility], [address], [id number], [place] tel:[phone] [place] Encounter for rehabilitation evaluation Jul- 5 Theroux Lyndsay. [address] [place], [address]. tel:[phone] [facility], [address], [id number], [place] tel:[phone] [place] Semi-Annual (chief complaint) Depression, unspecifiedGeneralized anxiety disorderHypertensive heart and chronic kidney disease with heart failure and stage 1 through stage 4 chronic kidney disease, or unspecified chronic kidney diseaseHeart failure, unspecifiedDilated cardiomyopathyPulmonar y hypertension, unspecifiedChronic kidney disease, stage 3aType 2 diabetes mellitus with diabetic chronic kidney diseaseType 2 diabetes mellitus with diabetic peripheral angiopathy without gangreneHyperlipidemia , unspecifiedGastro-esop hageal reflux disease without esophagitisChronic obstructive pulmonary disease, unspecifiedChronic respiratory failure with hypoxiaChronic respiratory failure with hypercapniaEncounter for general adult medical examination without abnormal findingsVT (ventricular tachycardia)Postmenopa usal osteoporosisType 2 diabetes mellitus with other specified complicationDiabetic peripheral neuropathy Jul- 5 Benedict Aqib. [address] [place], [place], [id number], [place]. tel:[phone] [facility], [address], [id number], [place] tel:[phone] [place] No Information Jul- 5 Benedict Aqib. [address] [place], [place], [id number], [place]. tel:[phone] [facility], [address] [address], [place], [place], [id number], [place] tel:[phone] [place] No Information Jul- 5 Benedict Aqib. [address] [place], [place], [id number], [place]. tel:[phone] [facility], [facility], [place], [place], [id number], [place] tel:[phone] [place] No Information 5 Benedict Aqib. [address] [place], [place], [id number], [place]. tel:[phone] [facility], [facility], [place], [place], [id number], [place] tel:[phone] [place] No Information 5 Benedict Aqib. [address] [place], [place], [id number], [place]. tel:[phone] [facility], [facility], [place], [place], [id number], [place] tel:[phone] [place] No Information 5 Benedict Aqib. [address] [place], [place], [id number], [place]. tel:[phone] [facility], [facility], [place], [place], [id number], [place] tel:[phone] [place] Acute Visit (chief complaint) Chronic obstructive pulmonary disease, unspecified COPD typeChronic respiratory failure, unspecified whether with hypoxia or hypercapnia 4 Benedict Aqib. [address] [place], [place], [id number], [place]. tel:[phone] [facility], [address] [facility] [address] [place] [address], [id number], [place] tel:[phone] [place] Semi-Annual (chief complaint) Chronic depressionAnxiety, generalizedHypertensiv e [...] hypoxia and hypercapniaChronic respiratory failure with hypercapnia Feb- 4 Benedict Aqib. [address] [facility] [place], [id number], [place]. tel:[phone] [facility], [address], [place], [place], [id number], [place] tel:[phone] [place] Chronic obstructive pulmonary disease, unspecifiedChronic respiratory failure, unspecified whether with hypoxia or hypercapnia Sep-3 4 Benedict Aqib. [address] [facility], [place], [place], [id number], [place]. tel:[phone] [facility], [address] [facility] [address] [facility], [place], [place], [id number], [place] tel:[phone] [place] Heart failure, unspecified HF chronicity, unspecified heart failure type Jan- 4 Benedict Aqib. [address] [facility] [place], [id number], [place]. tel:[phone] [facility], [address] [facility] [address] [facility], [place], [place], [id number], [place] tel:[phone] [place] No Information Jan- 4 Iris Ramsey. [address] [place], [place], [id number], [place]. tel:[phone] [facility], [address] [facility], [place], [place], [id number], [place] tel:[phone] [place] Acute Visit (chief complaint) Suspected fracture of rib of left side Sep- 4 Iris Ramsey. [address] [facility] [place], [id number], [place]. tel:[phone] [facility], [address] [facility] [address] [address], [place], [place], [id number], [place] tel:[phone] [place] Heart failure, unspecified 4 Iris Henryca. [address] [place], [place], [id number], [place]. tel:[phone] [facility], [facility], [place], [place], [id number], [place] tel:[phone] [place] No Information 4 Os Jennyfer. [address] [place], [place], [id number], [place]. tel:[phone] [facility], [address] [address], [place], [place], [id number], [place] tel:[phone] [place] Follow-up (chief complaint) Hypertensive heart disease with heart failureHeart failure, unspecified HF chronicity, unspecified heart failure typeChronic obstructive pulmonary disease, unspecified COPD typeTobacco use disorder 4 Os Jennyfer. [address] [place], [place], [id number], [place]. tel:[phone] [facility], [address] [address], [place], [place], [id number], [place] tel:[phone] [place] Encounter for rehabilitation evaluation 4 Theroux Lyndsay. [address] [place], [address]. tel:[phone] [facility], [facility], [place], [place], [id number], [place] tel:[phone] [place] Heart failure, unspecified HF chronicity, unspecified heart failure type 4 Os Jennyfer. [address] [place], [place], [id number], [place]. tel:[phone] [facility], [address] [facility], [place], [place], [id number], [place] tel:[phone] [place] No Information 4 Os Jennyfer. [address] [place], [id number], [place]. tel:[phone] [facility], [address] [facility], [place], [place], [id number], [place] tel:[phone] [place] Deficiency of other specified nutrient elementsEncounter for nutritional assessmentDiabetic nutritional counseling completed 4 Izzy Arechiga. [address] [place], [place], [id number], [place]. tel:[phone] [facility], [address] [facility], [place], [place], [id number], [place] tel:[phone] [place] Encounter for rehabilitation evaluationAlteration in performance of activities of daily livingDifficulty in walking, not elsewhere classified 4 Gildardo Chavira. 101 [facility], [place], [place], [id number]. tel:[phone] [facility], [address] [facility], [place], [place], [id number], [place] tel:[phone] [place] Encounter for rehabilitation evaluation 4 Khoa De Santiago. [address] [place], [place], [id number], [place]. tel:[phone] [facility], [address] [address], [place], [place], [id number], [place] tel:[phone] [place] Post Enrollment Evaluation (chief complaint) Chronic obstructive [...] deficiency anemia, unspecified iron deficiency anemia type 4 Os Jennyfer. [address] [place], [place], [id number], [place]. tel:[phone] [facility], [address] [address], [place], [place], [id number], tel:[phone] [place] No Information Jul- 4 Os Jennyfer. [address] [place], [place], [id number], [place]. tel:[phone] [facility], [address] [address], [place], [place], [id number], [place] tel:[phone] [place] No Information Apr- 3 Bhagavatula Ujmateuszwala. [address] [place], [place], [id number], [place]. tel:[phone] Family History Family Member Type Diagnosis Age At Onset No Information Immunizations Vaccine Date Status Comments Fluzone Triv refused Source: New Immunization Record Fluzone Triv refused Source: New Immunization Record Fluzone High Dose refused No te: refused 02/01/24 ; Source: New Immunization Record COVID-19 Pfizer administered Source: Othe r Registry Flu-ccIIV4 administered Source: Other R egistry PCV13 administered Source: Other R egistry PPSV23 administered Source: Other R egistry Payers Payer name Insurance type Covered democrat ID Fabiána dionna(s) [employer] 16 [id number] [employer] 16 [id number] [employer] 16 [id number] [employer] 16 [id number] Social History Type Description Quantity Date Captured Comments Sex Female Smoking Status No Information Chief Complaint And Reason For Visit No Information Plan Of Treatment Date Type Action Status Referral Referred To: Dr Beckford Ordered: Referrals: Pulmonology. Dr Beckford. Follow-up and treat Appointment date/timeframe: 10/03/2024 ordered Referral Ordered: Referrals: Cardiology Appointment date/timeframe: 11/20/2023 ordered Referral Ordered: Referrals: Pulmonology Appointment date/timeframe: 08/05/2023 ordered Referral Ordered: Referrals: Dentistry. Evaluate and treat ordered Referral Ordered: Referrals: Gastroenterology. Evaluate and treat ordered Referral Ordered: Referrals: Line Therapist. Evaluate and treat ordered Appointment Paola Romero BOOKED Appointment Paola Romero BOOKED Appointment Paola Romero BOOKED Appointment Paola Romero BOOKED Future Order: Radiology Order Co lonoscopy, flexible; diagnostic ([id number]), Ordered on: Ordered Future Order: Radiology Order CT Chest, low dose for lung screen, WITHOUT contrast ([id number]), Ordered on: Ordered Future Order: Radiology Order Ma mmogram (Screen); Bilat, 2-view study of each breast, incl computer-aided detection when performed ([id number]), Ordered on: Ordered Future Order: Radiology Order Pu lmonary function tests ([id number]), Ordered on: Ordered Future Order: Radiology Order Ri bs X-ray; Bilateral, with Chest X-ray (4+ views) ([id number]), Ordered on: Ordered Future Order: Radiology Order Ma mmogram (Screen); Bilat, 2-view study of each breast, incl computer-aided detection when performed ([id number]), Ordered on: Ordered Future Order: Radiology Order Ch est CT, diagnostic, WITHOUT Contrast ([id number]), Ordered on: Ordered Future Order: Lab Order BASIC ME TABOLIC PANEL ([id number]), Scheduled for: Ordered Future Order: Lab Order BASIC ME TABOLIC PANEL ([id number]), Ordered on: Ordered History Of Present Illness Encounter Date Complaint History Of Prese nt Illness Semi-Annual Paola is a 64 years old female who has been enrolled in the [facility] program since 08/2023 and is being seen today for her semi annual exam. Patient was seen in the clinic today.vegetable sorter CASE [employer]ueva, utilized for assessment. Truck Hopper utilized for assessment. Patient currently lives in community. There have been 2 ER visits and one hospitalizations over the last 6 months. She did not have any SNF stays.Pt was admitted to the hospital in May 2024 for acute on chronic hypoxic respiratory failure. She was discharged home on supplemental O2. Collective reviewed. Diagnoses Reviewed.No new diagnoses Consults:-Dental: no dentures; dental referral -Podiatry: can be done by podiatry-Vision: no glasses but should have them as she has difficulty seeing; vision referral-Cardiology: [facility]: regular follow up-Pulmonology: [facility]: regular follow up-GI: order in place for colonoscopy but is hesitantScreenings: Continuing to screen-Chest CT: <80, smoked in the last 15 years; order in place-Mammogram: order in place -Colonoscopy: order in place4 Ms:Mentation: all messed up ; don't remember certain things; didn't remember the spray machine tender who met her at her house recently -Orientation: A&Ox3-MOCA: in 08/2023-Cannot read in Belarusian or Zimbabwean-Family support: Has 2 sisters and 2 kids who don't visit (son did talk to spray machine tender-he is the HCP Aron)Medications:-Medications reviewed.No changes today.Tobacco use- 2-3 cigarettes a dayOxygen: 2L/min via NCMobility:-Ambulates: Independent with walker-Falls: She has had 2 falls in the last year but no significant injuries WMM:-Advance Directives reviewed: DNR/DNI, hospitalize-HCP: not invoked-Is there one thing you want to work on so you can do [most important thing]? nothing in particular-Anything you worry about? no concerns at this time Acute Visit Paola is a 63 years [...] week. Patient was seen in the clinic today.vegetable sorter CASE Cueva, utilized for assessment. Truck Hopper utilized for assessment. Patient currently lives in community. There have been 2 ER visits but no hospitalizations, SNF admission in the last six months.Diagnoses Reviewed.Transportation: needs transportConsults:-Dental: no dentures; dental referral -Podiatry: can be done by podiatry-Vision: no glasses but should have them as she has difficulty seeing; vision referral-Cardiology: [facility]: 10/13/23 at 9:30a-Pulmonology: [facility]: 08/05/23-GI: order in place for colonoscopyScreenings: Continuing to screen-Chest CT: <80, smoked in the last 15 years; order in place-Mammogram: order in place -Colonoscopy: order in place4 Ms:Mentation: all messed up ; don't remember certain things; didn't remember the spray machine tender who met her at her house recently -Orientation: A&Ox3-MOCA: 30 in 08/2023-Cannot read in Belarusian or Zimbabwean-Family support: Has 2 sisters and 2 kids who don't visit (son did talk to spray machine tender-he is the HCP Aron)Medications:-Medications reviewed.Tobacco use- 2-3 [...] over a table and hitting her ribs. Cigar Maker used for visit. On exam ppt with [...] to open her door. Ppt only speaks Zimbabwean therefore Proprio vegetable sorter line was utilized for assessment. No recent [...] enrollment exam. Patient had been seen in clinic.vegetable sorter CASE Cueva, utilized for assessment.Truck Hopper utilized for assessment. Patient currently lives in community. There have been hospitalizations, SNF admission and/or ER visits in the last six months.-Several hospitalizations for fatigue typically [facility] (requesting records)Diagnoses Reviewed.Transportation: needs transportConsults:-Dental: no dentures; dental referral -Podiatry: can be done by podiatry-Vision: no glasses but should have them as she has difficulty seeing; vision referral-Cardiology: [facility]: 10/13/23 at 9:30a-Pulmonology: [facility]: 08/05/23-GI: order in place for colonoscopyScreenings: Continuing to screen-Chest CT: <80, smoked in the last 15 years; order in place-Mammogram: order in place -Colonoscopy: order in place4 Ms:Mentation: all messed up ; don't remember certain things; didn't remember the spray machine tender who met her at her house recently -Orientation: A&Ox3-MOCA: TBD-Cannot read in Belarusian or Zimbabwean-Family support: Has 2 sisters and 2 kids who don't visit (son did talk to spray machine tender-he is the HCP Aron)Medications:-Medications reviewed.Mobility:-Ambulates: Independent w/ walker-Falls: 4 times in the bathtub (last year)WMM:-Advance Directives reviewed: DNR/DNI, hospitalize-HCP: not invoked-Is there one thing you want to work on so you can do [most important thing]? nothing in particular-Anything you worry about? no concerns at this time Post Enrollment Evaluation Instructions Date Instruction Additional Infor candelario Patient with Type 2 DM and peripheral neuropathyNeuropathy as evidenced by abnormal monofilament exam and sensory deficits noted on examCurrently stableOptimize risk factors. DM is well controlled at this timeWill continue to monitor Related to Diabetic peripheral neuropathy Patient with osteopo rosis as per Preenrollment records12/2020 Bone DEXA revealed Osteoporosis according to the WHO criteria; can do a repeat in 2 years if indicatedCurrently not on any therapyNo pathological fracturesWill continue to monitor Related to Postmenopausal osteoporosis Patient with a histo ry of ventricular tachycardia as per Preenrollment recordsCurrently stable and in sinus rhythmFollow up with Cardiology as scheduledManagement as per CardiologyWill continue to monitor Related to VT (ventricular tachycardia) Patient is seen toda y for her Semi-Annual examNo acute complaints or concerns noted todayChronic issues are stableMOLST on file-DNR, DNIHCP on file-not invokedWill continue to provide care and support Related to Encounter for general adult medical examination without abnormal findings Pt with Type 2 DMCur rently [id number] 5.9Continue MetforminDiscussed diet and exerciseWill continue to monitor Related to Type 2 diabetes mellitus with diabetic chronic kidney disease Patient has anxiety with panic attacks No triggers identified for panic attacksGAD is 6 todayContinues to see therapist and psychiatristWill continue to monitor Related to Generalized anxiety disorder Pt with pulmonary HT NContinues to follow up with CardiologyContinue current managementWill continue to monitor Related to Pulmonary hypertension, unspecified Patient with diastol ic heart failureCardiology notes reviewed Echo done in 06/2023 showed LVH, EF 51%, Grade I diastolic dysfunction, wall motion abnormalitiesContinue current managementDaily weights Continue current management Related to Heart failure, unspecified Patient with HTN and heart failureBP remains well controlled Continue current management Discussed DASH dietWill continue to monitor Related to Hypertensive heart and chronic kidney disease with heart failure and stage 1 through stage 4 chronic kidney disease, or unspecified chronic kidney disease Patient with nonisch emic congestive cardiomyopathyPatient continues to follow up with CardiologyContinue current managementWill continue to monitor Related to Dilated cardiomyopathy Pt with Diabetes and PVD as evidenced by physical exam showing BL LE dry, shiny, no hairDiabetes is well controlledContinue MetforminWill continue to monitor Related to Type 2 diabetes mellitus with diabetic peripheral angiopathy without gangrene Pt with COPD and chr onic respiratory failureRequires 4L supplemental [id number] to use prednisoneVentolin as neededContinues to smoke a few cigarettes every dayEducation provided about smoking cigarettes and oxygen use which she is aware of and does not smoke around oxygenContinues to follow up with Pulmonology Related to Chronic obstructive pulmonary disease, unspecified Mild recurrent major depressionShe reports feeling depressed all the timeNo SI, HI or hallucinations noted todayPHQ is 7 todaySees therapist and psychiatristContinue Zoloft Continue TrazodoneWill continue to monitor Related to Depression, unspecified Pt with chronic resp iratory failure secondary to COPDContinues to smoke cigarettesRequires supplemental O2 4L via NCContinue prednisoneVentolin as neededFollow up with Pulmonology as scheduled Related to Chronic respiratory failure with hypercapnia Pt with hyperlipidem iaCurrently stableContinue statinWill continue to monitor Related to Hyperlipidemia, unspecified Pt with CKD stage 3C urrently stableGFR 51, Cr 1.20Avoid nephrotoxic drugsWill continue to monitor Related to Chronic kidney disease, stage 3a Pt with chronic resp iratory failure secondary to COPDContinues to smoke cigarettesRequires supplemental O2 4L via NCContinue prednisoneVentolin as neededFollow up with Pulmonology as scheduled Related to Chronic respiratory failure with hypoxia Pt with chronic GERD Currently asymptomaticContinue PPIWill continue to monitor Related to Gastro-esophageal reflux disease without esophagitis Patient's current sy mptoms possibly due to [...] and chr onic respiratory failureRequires 4L supplemental [id number] to use prednisoneVentolin as neededContinues to smoke [...] and chr onic respiratory failureRequires 4L supplemental [id number] to use prednisoneVentolin as neededContinues to smoke [...] disease Pt with Type 2 DMCur rently [id number] 5.9Continue MetforminDiscussed diet and exerciseWill continue to [...] unspecified HF chronicity, unspecified heart failure type -Ventolin, monteluka st, low dose prednisone, use rescue inhaler PRN-F/u w/ pulmonologyRequires oxygen 3-4L via NCContinues tobacco use 2-3 cigarettes per day-Education provided about smoking cigarettes and oxygen use which she is aware of and does not smoke around oxygen Related to Chronic obstructive pulmonary disease, unspecified COPD type BP goal equal to or less than 140/90BPs have been stable-Continue losartan and amlodipineEcho revealing low EF; ppt had been referred to cardiology-Continue carvedilol, lasixDaily weights performed by pptNo edema noted; LSCTA; chronic dyspnea on 4L O2 Related to Hypertensive heart disease with heart failure Per preenrollment re cordsEcho revealing low EF; ppt had been referred to cardiology-Continue carvedilol, lasixDaily weights performed by ppt Related to Heart failure, unspecified HF chronicity, unspecified heart failure type Per preenrollment new Johns been followed by hematology-oncology: no longer requiring f/u as SE provider can manageHad refused ferrous sulfate d/t constipation per preenrollment recordsObtaining CBC Related to Iron deficiency anemia, unspecified iron deficiency anemia type Per preenrollment re Nat been seen by pulmonologyAdamantly refuses CPAP Related [...] to Hypertensive heart disease with heart failure Anxiety w/ panic att acks Panic attacks- can't identify triggersTremors at timeNoted to have anxiety during because of new team membersTherapist: does not like and is looking to switch therapistPsychiatrist: sees monthly Related to Anxiety, generalized Mild recurrent major depression per preenrollment recordsShe [...] Related to Major depressive disorder, recurrent, mild Per preenrollment re cords-Ventolin, montelukast, low dose [...] Concern Goal Type Priority Status Date Paola has chronic back and neck pain secondary to arthritis. Pain will not interfere with current level of functioning through next review. Patient Goal New 5 Paola is at risk for functional decline due to left shoulder pain Pt will report a decrease in left shoulder pain Patient Goal Discontinued 4 Elena is at risk for complications related to diabetes. Paola will not experience any medical complications or hospitalizations, related to diabetes for 180 days. Patient Goal Discontinued 4
[2024-08-29 18:43] LABS: Troponin-I High Sensitivity 43.7 ng/L (<3.5-17.0)
[2024-08-29 18:53] LABS: Alkaline Phosphatase 116 U/L (39-117)
[2024-08-29 19:14] LABS: Bacteria Urine None Seen (None Seen); Hyaline Casts Urine 0-2 /LPF (0-2); RBC Urine 0-2 /HPF (0-2); Squamous Epithelial Cell Urine 0-2 /HPF (0-2); WBC Urine 0-5 /HPF (0-5)
[2024-08-29] MEDS: Morphine Sulfate 2 MG/ML CARTRIDGE 4 MG IVPUSH (19:52)
[2024-08-29] MEDS: Lactated Ringers 1,000 ML 100 ML IVCONT (19:52)
--- NOTE | 2024-08-29 20:48 | PHA.MEDREC ---
Pharmacy Consult ? Medication Reconciliation Pharmacy has completed the medication reconciliation, spoke to patient who was a poor historian, had a hard time speaking and did not know her medications very well. Utilized list from [facility] to confirm medications.
[2024-08-29 20:50] LABS: Glucose, Whole Blood 127 mg/dL (60-115)
[2024-08-29 20:58] LABS: VBG Base Excess 0.3 mmol/L; VBG HCO3 22 mmol/L (22-26); VBG pCO2 30 mmHg; VBG pH 7.48 (7.32-7.43); VBG pO2 50 mmHg
[2024-08-29 20:59] LABS: Venous Blood Gas Refer to POC result
[2024-08-29] MEDS: Albuterol/Iprat 2.5/0.5MG 3 ML AMPUL.NEB INHALE (21:10)
[2024-08-29 21:21] LABS: Troponin-I High Sensitivity 84.9 ng/L (<3.5-17.0)
--- NOTE | 2024-08-29 21:25 | PC.NURSE ---
Dr. Ruggiero informed of soft BP's 95-100/52-61, no new orders at this time.
--- NOTE | 2024-08-29 21:26 | PC.NURSE ---
Patient is on CPAP at 45%, saturating 89-92%.
--- NOTE | 2024-08-29 21:40 | PC.NURSE ---
Pt on 4LNC at baseline, was satting in high 60s to low 70s, pt placed on oxymask at 11 LPM and O2 up to high 80s. Physician Dr Caruso notified. Respiratory to bedside, pt placed on non rebreather and then changed to CPAP by respiratory therapist. Pt O2 level up to 86-91% on CPAP.
--- NOTE | 2024-08-29 23:37 | PC.NURSE ---
Dr Ruggiero notified of patient's BP continues to be decreased. Notified of repeat trop being 84.[address] Ruggiero, no need for a repeat trop.
--- NOTE | 2024-08-29 23:53 | PC.NURSE ---
Dr Ruggiero at bedside.
[2024-08-30] VITALS (31 sets, daily range): BP systolic 63–162; BP diastolic 21–86; PULSE 97–132; RESP 14–24; TEMP 35.2–38.4; O2SAT 80–100; BMI 25.3
[2024-08-30 00:06] LABS: ABG Refer to POC result
--- NOTE | 2024-08-30 00:06 | PC.NURSE ---
LR infusion paused per Dr. Ruggiero's verbal order.
[2024-08-30 00:09] LABS: ABG HCO3 25 mmol/L (22-26); ABG pCO2 40 mmHg (32-45); ABG pO2 72 mmHg (83-108)
[2024-08-30 00:58] LABS: B Type Natriuretic Peptide 153 pg/mL (<100)
[2024-08-30 01:03] LABS: Troponin-I High Sensitivity 142.4 ng/L (<3.5-17.0)
--- NOTE | 2024-08-30 01:04 | PC.NURSE ---
Dr. Ruggiero notified of critical trop of 142.4
--- NOTE | 2024-08-30 01:16 | PM.EVENT ---
Event Note Date of Service: 08/30/24 Event Note: Noted elevated troponin. Ordered 1 dose of therapeutic Lovenox and aspirin. Ordered Cardiology consult and echocardiogram. Time Spent With Patient Time: Total time managing care of this patient today ____ minutes.
[2024-08-30] MEDS: Aspirin 325 MG TABLET PO (02:43)
[2024-08-30] MEDS: Enoxaparin Sodium 60 MG/0.6 ML SYRINGE SUBCUT (02:43)
[2024-08-30] MEDS: Lactated Ringers 1,000 ML 100 ML IVCONT (04:05)
[2024-08-30 04:54] LABS: Hematocrit 34.2 % (37.0-47.0); Hemoglobin 11.1 g/dl (12.0-16.0); Mean Corpuscular HGB Conc 32.5 g/dl (31.0-35.0); Mean Corpuscular Hemoglobin 28.6 pg (27.0-33.0); Mean Corpuscular Volume 88.1 fL (80.0-98.0); Mean Platelet Volume 9.8 fL (9.4-12.3); Platelet Count 179 X10*3/uL (160-400); Red Blood Count 3.88 X10*6/uL (4.20-5.50); Red Cell Distribution Width 15.8 % (11.0-16.0); White Blood Count 17.1 X10*3/uL (4.8-10.8)
[2024-08-30 05:17] LABS: Anion Gap 21 (12-20); Blood Urea Nitrogen 39 mg/dL (9-16); Calcium 9.1 mg/dL (8.4-10.2); Carbon Dioxide 21 mmol/L (22-29); Chloride 101 mmol/L (96-108); Creatinine Clr Calc Pharmacy 19.3; Estimated Glomerular Filt Rate 22; Glucose Random 143 mg/dL (60-115); Potassium 4.9 mmol/L (3.3-5.1); Sodium 138 mmol/L (135-145)
[2024-08-30] MEDS: Morphine Sulfate 2 MG/ML CARTRIDGE 4 MG IVPUSH ×2 (05:38→09:56)
--- NOTE | 2024-08-30 07:00 | CA_ITS ---
Transthoracic Echocardiogram Patient (Last, First, Middle): Paola Ross, Gender: Female Date of : 1960 Age: 64 Procedure Date: 08/30/2024 Procedure Type: Transthoracic Echocardiogram Location: ICU Height: 154.94 cm Weight: 55.79 kg BSA: 1.54 m2 Heart Rate: bpm BP: 98 / 50 mmHg Front End Manager: Kemar Curry MD ECG Rhythm: Sinus Conclusions: - Normal left ventricular size and systolic function. There is mildly increased left ventricular wall thickness. The visually estimated ejection fraction is between 60-65%. There is a flattened septum in systole and diastole consistent with right ventricular pressure and volume overload. Diastolic function is indeterminate on the basis of available data. - Severely increased right ventricular cavity size. There is mild to moderately decreased right ventricular systolic function. Findings Left Ventricle Normal left ventricular size and systolic function. There is mildly increased left ventricular wall thickness. The visually estimated ejection fraction is between 60-65%. There is a flattened septum in systole and diastole consistent with right ventricular pressure and volume overload. Diastolic function is indeterminate on the basis of available data. Right Ventricle Severely increased right ventricular cavity size. There is mild to moderately decreased right ventricular systolic function. Atria The left atrium is normal in size. The right atrium is moderately dilated. Aortic Valve There is a normal trileaflet aortic valve. There is no aortic valve stenosis. There is no aortic valve regurgitation. Mitral Valve The mitral valve appears normal. There is mild mitral annular calcification. There is no mitral valve regurgitation. There is no mitral valve stenosis. Pulmonic Valve The pulmonic valve is normal. There is trace pulmonic valve regurgitation. Tricuspid Valve There is moderate tricuspid valve regurgitation. The right ventricular systolic pressure is 58 mmHg. Mildly elevated right atrial pressure. Severe pulmonary hypertension is present. Great Vessels All visible segments of the aorta are normal in size. Venous The inferior vena cava is dilated and collapses greater than 50% with inspiration. Pericardium/Pleural There is no evidence of pericardial effusion. Prior Study Comparison Changes noted compared to prior study. RV dilated with mild to moderate dysfunction and severe elevation of PA pressures. Measurements 2D Linear Measurements IVSd: 1.03 0.6-0.9/0.6-1.0 cm LVIDd: 4.09 3.9-5.3/4.2-5.9 cm LVIDd Index: 2.66 2.4-3.2/2.2-3.1 cm/m2 LVIDs: 2.02 2.0-3.6 cm LVPWd: 1.05 0.7-1.1 cm Ao Root: 3.10 2.1-3.5 cm LA Diam: 2.80 2.7-3.8/3.0-4.0 cm LAIDs Index: 1.82 1.5-2.3 cm/m2 LV Mass: 173.13 67-162/88-224 g LV Mass Index: 112.42 43-95/49-115 g/m2 LVOT Diam: 2.00 3.0+(-)1.3 cm 2D Systolic Function EF 4C: 66.30 >55% EF 2C: 62.80 >55% EF BiP: 66.00 >55% Mitral Valve MV Pk E: 0.43 MV PK A: 0.62 MV Decel Time: 261.00 E/A: 0.70 E'Lateral: 10.10 E'Medial: 4.24 E/E' Med: 10.10 E/E' Lat: 4.20 PHT: 77.00 MVA PHT: 2.86 Decel Beaver: 1.64 Aortic Valve AoV Pk Ambrosio: 1.38 AoV Mn Ambrosio: 0.96 AoV VTI: 0.17 AoV Pk Grad: 8.00 Aov Mn Grad: 4.00 PEPITO Cont.VTI: 1.92 LVOT LVOT Pk Ambrosio: 0.78 LVOT Mn Ambrosio: 0.55 LVOT VTI: 0.10 LVOT Pk Grad: 2.00 LVOT Mn Grad: 1.00 LVOT Diam: 2.00 LVOT Area: 3.14 Diastolic Function MV Pk E: 0.43 MV Pk A: 0.62 E/A: 0.70 E'Medial: 4.24 E/E' Med: 10.10 E' Laterial: 10.10 E/E' Lat: 4.20 Tricuspid Valve TR Pk Ambrosio: 3.55 TR Pk Grad: 50.00 RA Press: 8.00 RVSP: 58.00 Great Vessels Aorta Ao Root-2D: 3.10 2.0-3.7 cm Ao Asc: 3.10 2.1-3.4 cm Pulmonary Valve PV Pk Ambrosio: 0.84 Peak PV Grad: 3.00 Updated in Other Vendor System with Status of Final Kemar Curry MD electronically signed on 09/02/2024 2:48:21 PM with status of Final
[2024-08-30 07:11] LABS: Glucose, Whole Blood 149 mg/dL (60-115)
--- NOTE | 2024-08-30 07:11 | PC.NURSE ---
pt is sleepy, respirations even and unlabored, ls diminished, pt's oxygen saturation ranging from 79-83 on the CPAP 10/70%, mask adjusted and the oxygen increased lowly from 70-90% and saturations slowly improving at this time, sating anywhere from 85-92%, forman in place but only about 50ml in the bag at this time.
--- NOTE | 2024-08-30 07:45 | PM.EVENT ---
Event Note Date of Service: 08/30/24 Event Note: Pending cardiac clearance and echo Plan for OR tomorrow if cleared for right hip hemiarthroplasty NPO after midnight Time Spent With Patient Time: Total time managing care of this patient today ____ minutes.
[2024-08-30] MEDS: oxyCODONE HCl Immed Release 5 MG TABLET PO (07:55)
--- NOTE | 2024-08-30 09:30 | P.CONNP_ITS ---
History of Present Illness Reason for Consult Consult date: 08/30/24 Chief Complaint Chief complaint: Right femoral fracture History of Present Illness Narrative: Patient is a 64 y/o female with a medical history of HFrEF, COPD on 4L home O2, pulmonary HTN, DMII, HTN, HLD, history of SVT who presented 08/29 with right hip pain after a fall at home. On admission creatinine 2.34, previously 1.03 in June. 08/30 is 2.25. Blood pressures low on admission (95/71). Nephrology consulted for KEVIN. Patient states she felt dizzy and fell at home. xray suggests right hip fracture. Chest xray with mild pulmonary edema 08/29, worsening 08/30. patient reports taking diuretics at home, per chart review furosemide and spironolactone (currently being held). she states she also takes daily OTC NSAID for pain, primarily headaches. She states she has pain in her right hip, otherwise no pain. Denies urinary symptoms (currently forman in place, UA negative for infection). States she is short of breath (on bipap). denies chest pain, leg swelling, abdominal pain, urinary symptoms, diarrhea/constipation. patient states she smokes cigarettes, but does not use alcohol or illicit drugs. Review of Systems Constitutional: Reports fatigue and Reports lethargy Denies dizziness Cardiovascular: Denies chest pain, Denies leg edema, Denies lightheadedness and Reports dyspnea Respiratory: Denies cough and Reports dyspnea Gastrointestinal: Denies diarrhea, Denies nausea and Denies vomiting Genitourinary: Denies hematuria, Denies difficulty voiding, Denies dysuria and Denies flank pain Musculoskeletal: Reports arthralgias (reports right hip pain) Skin/Breast: Denies rash Denies dizziness Endocrine: Reports fatigue PMFSH Past Medical History Medical History Influenza A Asthma with exacerbation Hypoglycemia associated with type 2 diabetes mellitus HTN (hypertension) Acute hypoxic respiratory failure CHF (congestive heart failure) NSTEMI (non-ST elevated myocardial infarction) Hypoxic respiratory failure Chronic lung disease Congestive heart failure Mild recurrent major depression Hospital discharge follow-up Severe chronic obstructive pulmonary disease Diabetes Mitral regurgitation Chest pain Lumbar degenerative disc disease Right lower lobe pneumonitis Congestive heart failure Acute and chronic respiratory failure with hypoxia Respiratory failure with hypoxia and hypercapnia Atelectasis, right Hypertensive emergency Pulmonary hypertension Osteoporosis Essential hypertension Supraventricular tachycardia Nonischemic cardiomyopathy Non-rheumatic mitral regurgitation Tobacco abuse Depression Anxiety Chronic respiratory failure HFrEF (heart failure with reduced ejection fraction) KELLIE (obstructive sleep apnea) HLD (hyperlipidemia) Family History Family History Father No problems noted. Mother Liver cancer Hypertension Surgical History Surgical History H/O hysterectomy for benign disease History of total abdominal hysterectomy Bilateral ankle fractures Social History Social History Household Members: Family Household Members Other:: 1 Housing: House Do you presently have visiting nurse or other home services: Yes (aid comes 2 hours a day) Unable to assess alcohol history related to: Unable to respond Alcohol intake: never Patient Tobacco Use Status: Never used Tobacco Tobacco use type: Cigarette Cigarettes Per Day: 5 Years Smoked: 50 +/- e-Cigarette/Vaping Use: Never Used Second Hand Smoke Exposure: No Advance Directives Date on File: 05/18/23 service: No Current occupational status: disabled Cognitive needs: Yes Hearing needs: No Vision needs: No Meds Allergies Allergy/AdvReac Type Severity Reaction Status Date / Time nicotine [Nicotine] Allergy Mild ITCHING Verified 08/29/24 15:45 WITH THE PATCHES topiramate Allergy Mild inadequealte Verified 08/29/24 15:45 response Active Medications: Current Medications Acetaminophen (Acetaminophen 325 Mg Tablet) 650 mg PO Q6H PRN PRN Reason: Pain, Mild 1-3,fever,headache Albuterol Sulfate (Albuterol Sulfate 90 Mcg 8 Gm Inhaler) 2 puff INHALE Q4H PRN PRN Reason: Shortness Of Breath Or Wheezing Albuterol/Ipratropium (Albuterol/Iprat 2.5/0.5mg 3 Ml Ampul.Neb) 3 ml INHALE RQ4H WHILE AWAKE PRN PRN Reason: Shortness of Breath/Wheezing Last Admin: 08/29/24 21:10 Dose: 3 ml Atorvastatin Calcium (Atorvastatin Calcium 10 Mg Tablet) 10 mg PO DAILY [facility] Calcium Carbonate (Calcium Carbonate 750 Mg Tab.Chew) 750 mg PO Q4H PRN PRN Reason: Heartburn Dextrose (Dextrose 50 % 25 Gm/50 Ml Syringe) 25 gm IVPUSH Q15M PRN; Protocol PRN Reason: per Hypoglycemia Standing Ord. Folic Acid (Folic Acid 1 Mg Tablet) 1 mg PO DAILY [facility] Glucose (Glucose Gel 15 Gm Gel..Gram.) 15 gm PO Q15M PRN; Protocol PRN Reason: per Hypoglycemia Standing Ord. Insulin Human Lispro (Insulin Lispro 100 Unit/Ml 3 Ml Vial) 0 unit SUBCUT QIDACHS [facility]; Protocol Last Admin: 08/30/24 07:26 Dose: Not Given Magnesium Hydroxide (Milk Of Magnesia 30 Ml Oral.Susp) 30 ml PO DAILY PRN PRN Reason: Constipation Melatonin (Melatonin 3 Mg Tablet) 6 mg PO BEDTIME PRN PRN Reason: Insomnia Montelukast Sodium (Montelukast Sodium 10 Mg Tablet) 10 mg PO BEDTIME [facility] Morphine Sulfate (Morphine Sulfate 2 Mg/Ml Cartridge) 4 mg IVPUSH Q4H PRN; Protocol PRN Reason: Pain, Severe (Pain Scale 7-10) Last Admin: 08/30/24 05:38 Dose: 4 mg Omeprazole (Omeprazole 20 Mg Capsule.Dr) 20 mg PO DAILY@0630 [facility] Last Admin: 08/30/24 06:37 Dose: Not Given Ondansetron HCl (Ondansetron Hcl 4 Mg/2 Ml Vial) 4 mg IVPUSH Q8H PRN PRN Reason: Nausea and Vomiting Prednisone (Prednisone 5 Mg Tablet) 5 mg PO DAILY [facility] Quetiapine Fumarate (Quetiapine Fumarate 50 Mg Tablet) 50 mg PO BID [facility] Senna (Sennosides 8.6 Mg Tablet) 8.6 mg PO DAILY PRN PRN Reason: Constipation Sertraline HCl (Sertraline Hcl 100 Mg Tablet) 200 mg PO DAILY [facility] Sodium Chloride (0.9 % Sodium Chloride Flush 3 Ml Syringe) 3 ml IVFLUSH QSHIFT [facility] Last Admin: 08/30/24 07:42 Dose: Not Given Trazodone HCl (Trazodone Hcl 100 Mg Tablet) 100 mg PO BEDTIME [facility] Home Medications ?Medication ?Instructions ?Recorded ?Confirmed ?Last Taken ?Type sertraline 100 mg tablet 200 mg PO DAILY 04/30/23 08/29/24 08/29/24 History losartan 50 mg tablet 100 mg PO DAILY 06/21/23 08/29/24 08/29/24 History atorvastatin 10 mg tablet 10 mg PO DAILY 06/16/24 08/29/24 08/29/24 History omeprazole 20 mg capsule,delayed 20 mg PO DAILY@0630 06/16/24 08/29/24 08/29/24 History release sennosides 8.6 mg tablet (senna) 8.6 mg PO DAILY PRN Constipation 06/16/24 08/29/24 08/29/24 History spironolactone 25 mg tablet 25 mg PO DAILY 06/16/24 08/29/24 08/29/24 History trazodone 50 mg tablet 100 mg PO BEDTIME 06/16/24 08/29/24 08/29/24 History albuterol sulfate 90 mcg/actuation 2 inh inhalation Q4H PRN Shortness 08/29/24 08/29/24 08/29/24 History aerosol inhaler Of Breath Or Wheezing tiotropium bromide 2.5 inh inhalation DAILY@0800 08/29/24 08/29/24 History mcg/actuation mist for inhalation (Spiriva Respimat) Physical Exam Vital Signs: Last Vital Signs Temp 98.0 F 08/30/24 09:28 Pulse 124 H 08/30/24 09:28 Resp 20 08/30/24 09:28 BP 123/86 08/30/24 09:28 Pulse Ox 98 08/30/24 09:28 O2 Del Method CPAP 08/30/24 09:28 O2 Flow Rate 15 08/29/24 20:13 FiO2 70 08/30/24 07:59 Oxygen Flow Rate 4 08/29/24 15:29 BMI result Body Mass Index 25.3 Const General: no acute distress, alert and awake Neck Neck: Yes no JVD Resp Effort & Inspection: audible wheezes and uses accessory muscles Auscultation: wheezes Cardio Rate: regular rate Rhythm: regular rhythm Heart sounds: S1 normal heart sound present and S2 normal heart sound present GI Palpation (GI): Soft to palpation and nontender General: Yes no CVA tenderness Back/Spine/Pelvis Back: no CVA tenderness Skin Lesions: no lesions Rashes: no rashes Extrem General: No edema and No pedal edema Results Lab Results 08/30/24 04:18 08/30/24 04:18 Lab results: Chemistry 08/29/24 08/30/24 17:22 04:18 Sodium 134 L 138 Potassium 4.4 4.9 Carbon Dioxide 21 L 21 L BUN 36 H 39 H Creatinine 2.34 H 2.25 H Calcium 8.8 D 9.1 Hematology 08/29/24 08/30/24 17:22 04:18 WBC 12.0 H 17.1 H Hgb 11.3 L 11.1 L Plt Count 185 179 Urinalysis 08/29/24 18:23 Urine Color Yellow Urine Appearance Clear Urine pH 5.5 Ur Specific [place] 1.015 Urine Protein Negative Urine Glucose (UA) >=1000 H Urine Ketones Negative Urine Blood Negative Urine Nitrite Negative Ur Leukocyte Esterase Negative Urine RBC 0-2 Urine WBC 0-5 Ur Squamous Epith Cells 0-2 Hyaline Casts 0-2 Assessment and Plan (1) KEVIN (acute kidney injury): Status: Acute (2) Acute on chronic heart failure with mildly reduced ejection fraction (HFmrEF, 41-49%): Status: Acute (3) HTN (hypertension): Qualifiers: Hypertension type: essential hypertension Qualified Code(s): I10 - Essential (primary) hypertension Status: Acute Plan KEVIN likely multifactorial; concurrent use of diuretics and daily NSAIDs at home likely contributory, in addition hemodynamic KEVIN from hypotension is likely a contributing factor. recommend hold diuretics for net 24 hours and reassess given elevated creatinine given unclear etiology of interstitial opacities on chest xray and significant wheezing on pulmonary exam. recommend avoiding NSAIDs and other nephrotoxins. continue to monitor blood pressures and assess daily electrolyte and renal function studies. Discussed with Dr Cunningham. Procedures Date of Service Date of Service: 08/30/24
[2024-08-30] MEDS: Furosemide 40 MG/4 ML VIAL IVPUSH ×2 (09:49→17:45)
--- NOTE | 2024-08-30 09:51 | P.PNIM_ITS ---
Subjective Subjective Date of Service: 08/30/24 Interval History: sob, hip pain Physical Exam 2 Vital Signs: Vital Signs: Last Vital Signs Temp 98.0 F 08/30/24 09:28 Pulse 124 H 08/30/24 09:28 Resp 20 08/30/24 09:28 BP 123/86 08/30/24 09:28 Pulse Ox 98 08/30/24 09:28 O2 Del Method CPAP 08/30/24 09:28 O2 Flow Rate 15 08/29/24 20:13 FiO2 70 08/30/24 07:59 Oxygen Flow Rate 4 08/29/24 15:29 BMI result Body Mass Index 25.3 General: AO X 3, ill appearing Resp: diminished bilateral, no accessory muscles used CVS: S1,S2,RRR GI: soft, non tender, non distended Neuro: motor grossly intact, alert Psych: appropriate affect, appropriate insight Objective Data Active Medications Acetaminophen (Acetaminophen 325 Mg Tablet) 650 mg PO Q6H PRN PRN Reason: Pain, Mild 1-3,fever,headache Albuterol Sulfate (Albuterol Sulfate 90 Mcg 8 Gm Inhaler) 2 puff INHALE Q4H PRN PRN Reason: Shortness Of Breath Or Wheezing Albuterol/Ipratropium (Albuterol/Iprat 2.5/0.5mg 3 Ml Ampul.Neb) 3 ml INHALE RQ4H WHILE AWAKE PRN PRN Reason: Shortness of Breath/Wheezing Last Admin: 08/29/24 21:10 Dose: 3 ml Documented By: JOSELITO Atorvastatin Calcium (Atorvastatin Calcium 10 Mg Tablet) 10 mg PO DAILY [facility] Calcium Carbonate (Calcium Carbonate 750 Mg Tab.Chew) 750 mg PO Q4H PRN PRN Reason: Heartburn Dextrose (Dextrose 50 % 25 Gm/50 Ml Syringe) 25 gm IVPUSH Q15M PRN; Protocol PRN Reason: per Hypoglycemia Standing Ord. Folic Acid (Folic Acid 1 Mg Tablet) 1 mg PO DAILY [facility] Glucose (Glucose Gel 15 Gm Gel..Gram.) 15 gm PO Q15M PRN; Protocol PRN Reason: per Hypoglycemia Standing Ord. Insulin Human Lispro (Insulin Lispro 100 Unit/Ml 3 Ml Vial) 0 unit SUBCUT QIDACHS [facility]; Protocol Last Admin: 08/30/24 07:26 Dose: Not Given Documented By: VIKKI Non-Admin Reason: poc 149 npo Magnesium Hydroxide (Milk Of Magnesia 30 Ml Oral.Susp) 30 ml PO DAILY PRN PRN Reason: Constipation Melatonin (Melatonin 3 Mg Tablet) 6 mg PO BEDTIME PRN PRN Reason: Insomnia Montelukast Sodium (Montelukast Sodium 10 Mg Tablet) 10 mg PO BEDTIME [facility] Morphine Sulfate (Morphine Sulfate 2 Mg/Ml Cartridge) 4 mg IVPUSH Q4H PRN; Protocol PRN Reason: Pain, Severe (Pain Scale 7-10) Last Admin: 08/30/24 05:38 Dose: 4 mg Documented By: CRYSTAL Omeprazole (Omeprazole 20 Mg Capsule.Dr) 20 mg PO DAILY@0630 [facility] Last Admin: 08/30/24 06:37 Dose: Not Given Documented By: CRYSTAL Non-Admin Reason: See Note Ondansetron HCl (Ondansetron Hcl 4 Mg/2 Ml Vial) 4 mg IVPUSH Q8H PRN PRN Reason: Nausea and Vomiting Prednisone (Prednisone 5 Mg Tablet) 5 mg PO DAILY [facility] Quetiapine Fumarate (Quetiapine Fumarate 50 Mg Tablet) 50 mg PO BID [facility] Senna (Sennosides 8.6 Mg Tablet) 8.6 mg PO DAILY PRN PRN Reason: Constipation Sertraline HCl (Sertraline Hcl 100 Mg Tablet) 200 mg PO DAILY [facility] Sodium Chloride (0.9 % Sodium Chloride Flush 3 Ml Syringe) 3 ml IVFLUSH QSHIFT [facility] Last Admin: 08/30/24 07:42 Dose: Not Given Documented By: VIKKI Non-Admin Reason: IV Running Trazodone HCl (Trazodone Hcl 100 Mg Tablet) 100 mg PO BEDTIME [facility] Labs 08/30/24 04:18 08/30/24 04:18 Labs: Laboratory Results - last 24 hr 08/29/24 08/29/24 08/29/24 17:22 18:18 18:23 MCV 87.0 MCH 28.8 MCHC 33.1 RDW 15.3 Plt Count 185 MPV 10.0 Immature Gran % (Auto) 0.7 H Neut % (Auto) 85.1 H Lymph % (Auto) 9.4 L [place] % (Auto) 4.4 Eos % (Auto) 0.3 Baso % (Auto) 0.1 Lymph # (Auto) 1.1 L [place] # (Auto) 0.5 Eos # (Auto) 0.0 Baso # (Auto) 0.0 Abs Immat Gran (auto) 0.08 H Absolute Neuts (auto) 10.2 H Absolute Nucleated RBC 0.000 Nucleated RBC % (auto) 0.0 PT 11.7 INR 1.0 O2 Saturation ABG pH at Pt Temp ABG pCO2 at Pt Temp ABG pO2 at Pt Temp ABG HCO3 ABG Base Excess (Actual) VBG pH VBG pCO2 VBG pO2 VBG HCO3 VBG O2 Saturation VBG Base Excess Anion Gap 16 Estim Creat Clear Calc 18.5 Estimated GFR 21 POC Glucose Random Glucose 199 H Calcium 8.8 D Total Bilirubin 0.2 Direct Bilirubin 0.2 AST 24 ALT 22 Alkaline Phosphatase 116 B-Natriuretic Peptide Total Protein 7.3 Albumin 3.9 Lipase 71 Urine Color Yellow Urine Appearance Clear Urine pH 5.5 Ur Specific [place] 1.015 Urine Protein Negative Urine Glucose (UA) >=1000 H Urine Ketones Negative Urine Blood Negative Urine Nitrite Negative Ur Leukocyte Esterase Negative Urine RBC 0-2 Urine WBC 0-5 Ur Squamous Epith Cells 0-2 Urine Bacteria None Seen Hyaline Casts 0-2 08/29/24 08/29/24 08/30/24 20:47 20:54 00:05 MCV MCH MCHC RDW Plt Count MPV Immature Gran % (Auto) Neut % (Auto) Lymph % (Auto) [place] % (Auto) Eos % (Auto) Baso % (Auto) Lymph # (Auto) [place] # (Auto) Eos # (Auto) Baso # (Auto) Abs Immat Gran (auto) Absolute Neuts (auto) Absolute Nucleated RBC Nucleated RBC % (auto) PT INR O2 Saturation 94.0 ABG pH at Pt Temp 7.40 ABG pCO2 at Pt Temp 40 ABG pO2 at Pt Temp 72 L ABG HCO3 25 ABG Base Excess (Actual) 1.0 VBG pH 7.48 H VBG pCO2 30 VBG pO2 50 VBG HCO3 22 VBG O2 Saturation 84.0 VBG Base Excess 0.3 Anion Gap Estim Creat Clear Calc Estimated GFR POC Glucose 127 H Random Glucose Calcium Total Bilirubin Direct Bilirubin AST ALT Alkaline Phosphatase B-Natriuretic Peptide Total Protein Albumin Lipase Urine Color Urine Appearance Urine pH Ur Specific [place] Urine Protein Urine Glucose (UA) Urine Ketones Urine Blood Urine Nitrite Ur Leukocyte Esterase Urine RBC Urine WBC Ur Squamous Epith Cells Urine Bacteria Hyaline Casts 08/30/24 08/30/24 08/30/24 00:28 04:18 07:07 MCV 88.1 MCH 28.6 MCHC 32.5 RDW 15.8 Plt Count 179 MPV 9.8 Immature Gran % (Auto) Neut % (Auto) Lymph % (Auto) [place] % (Auto) Eos % (Auto) Baso % (Auto) Lymph # (Auto) [place] # (Auto) Eos # (Auto) Baso # (Auto) Abs Immat Gran (auto) Absolute Neuts (auto) Absolute Nucleated RBC 0.000 Nucleated RBC % (auto) 0.0 PT INR O2 Saturation ABG pH at Pt Temp ABG pCO2 at Pt Temp ABG pO2 at Pt Temp ABG HCO3 ABG Base Excess (Actual) VBG pH VBG pCO2 VBG pO2 VBG HCO3 VBG O2 Saturation VBG Base Excess Anion Gap 21 H Estim Creat Clear Calc 19.3 Estimated GFR 22 POC Glucose 149 H Random Glucose 143 H Calcium 9.1 Total Bilirubin Direct Bilirubin AST ALT Alkaline Phosphatase B-Natriuretic Peptide 153 H Total Protein Albumin Lipase Urine Color Urine Appearance Urine pH Ur Specific [place] Urine Protein Urine Glucose (UA) Urine Ketones Urine Blood Urine Nitrite Ur Leukocyte Esterase Urine RBC Urine WBC Ur Squamous Epith Cells Urine Bacteria Hyaline Casts Assessment and Plan (1) Congestive heart failure: Status: Acute Plan 64F PMH hfref (EF 40-45%), chronic hypoxic respiratory failure on 4 L home O2 due to COPD and pulmonary hypertension, diabetes, hypertension, hyperlipidemia, history of SVT presented with fall complicated by right hip fracture, acute kidney injury Mechanical fall complicated by right hip fracture Due to acute on chronic hypoxia and acute kidney injury surgery deferred for today, Obtaining Cardiology and Nephrology consultation Potential surgery tomorrow Acute on chronic hypoxic respiratory failure due to COPD and acute on chronic systolic CHF Initially given IV fluids for acute kidney injury, appears to have worsening pulmonary edema we will give 1 dose of Lasix 40 mg IV and monitor Wean O2 as tolerated Further complicated by elevated troponin, suspect demand ischemia Follow up Cardiology Acute kidney injury Suspected due to hypotension from medications Holding antihypertensives Nephrology eval Monitor Diabetes Insulin sliding scale KELLIE CPAP at night DVT prophylaxis-given therapeutic dose of Lovenox overnight, now mechanical due to possible surgery Full code reason for continued hospitalization: Hypoxia, KEVIN Quality Stroke Does the patient have a stroke diagnosis?: No VTE Prior VTE?: No VTE Risk Level:: Medical - moderate - high VTE Device Contraindication: N/A - Device Ordered VTE Drug Contraindication: Treatment Not Indicated
[2024-08-30 11:16] LABS: Glucose, Whole Blood 154 mg/dL (60-115)
--- NOTE | 2024-08-30 11:55 | MHC.CM.PN ---
EMR REVIEWED, PT W/R HIP FX/ACUTE ON CHRONIC CHF, CM ATTEMPTED TO MEET W/PT VIA [employer] INSPECTOR HOWEVER PT UNABLE TO ANSWER QUESTIONS D/T CPAP AND R HIP PAIN, CM TO REVISIT ONCE PT OFF CPAP AND CONT TO FOLLOW.
[2024-08-30] MEDS: HYDROmorphone HCl 0.5 MG/0.5 ML SYRINGE IV (12:13)
--- NOTE | 2024-08-30 12:44 | PM.CNCAR ---
History of Present Illness History of Present Illness Date of Service: 08/30/24 Requesting physician: Ethan Santamaria Chief complaint: Right femoral fracture Narrative: [age] year female presenting with mechanical fall and right femoral fracture. Apparently she was in the ER and was noticed to have acute kidney injury and was given IV fluids followed by worsening shortness of breath with chest x-ray showing congestive heart failure. She was on CPAP at the time of interview. She was unable to talk due to CPAP but appeared kind of hazy and was very slow to respond. It appears she has been in lot of pain and was also getting some pain medications. She has known history of heart failure with mildly reduced ejection fraction of 40-45%. History is quite limited currently. [facility] Past Medical History Medical History Influenza A Asthma with exacerbation Hypoglycemia associated with type 2 diabetes mellitus HTN (hypertension) Acute hypoxic respiratory failure CHF (congestive heart failure) NSTEMI (non-ST elevated myocardial infarction) Hypoxic respiratory failure Chronic lung disease Congestive heart failure Mild recurrent major depression Hospital discharge follow-up Severe chronic obstructive pulmonary disease Diabetes Mitral regurgitation Chest pain Lumbar degenerative disc disease Right lower lobe pneumonitis Congestive heart failure Acute and chronic respiratory failure with hypoxia Respiratory failure with hypoxia and hypercapnia Atelectasis, right Hypertensive emergency Pulmonary hypertension Osteoporosis Essential hypertension Supraventricular tachycardia Nonischemic cardiomyopathy Non-rheumatic mitral regurgitation Tobacco abuse Depression Anxiety Chronic respiratory failure HFrEF (heart failure with reduced ejection fraction) KELLIE (obstructive sleep apnea) HLD (hyperlipidemia) Family History Family History Father No problems noted. Mother Liver cancer Hypertension Surgical History Surgical History H/O hysterectomy for benign disease History of total abdominal hysterectomy Bilateral ankle fractures Social History Social History Household Members: Family Household Members Other:: 1 Housing: House Do you presently have visiting nurse or other home services: Yes (aid comes 2 hours a day) Unable to assess alcohol history related to: Unable to respond Alcohol intake: never Patient Tobacco Use Status: Never used Tobacco Tobacco use type: Cigarette Cigarettes Per Day: 5 Years Smoked: 50 +/- e-Cigarette/Vaping Use: Never Used Second Hand Smoke Exposure: No Advance Directives Date on File: 05/18/23 service: No Current occupational status: disabled Cognitive needs: Yes Hearing needs: No Vision needs: No Meds Allergies Allergy/AdvReac Type Severity Reaction Status Date / Time nicotine [Nicotine] Allergy Mild ITCHING Verified 08/29/24 15:45 WITH THE PATCHES topiramate Allergy Mild inadequealte Verified 08/29/24 15:45 response Active Medications: Current Medications Acetaminophen (Acetaminophen 325 Mg Tablet) 650 mg PO Q6H PRN PRN Reason: Pain, Mild 1-3,fever,headache Albuterol Sulfate (Albuterol Sulfate 90 Mcg 8 Gm Inhaler) 2 puff INHALE Q4H PRN PRN Reason: Shortness Of Breath Or Wheezing Albuterol/Ipratropium (Albuterol/Iprat 2.5/0.5mg 3 Ml Ampul.Neb) 3 ml INHALE RQ4H WHILE AWAKE PRN PRN Reason: Shortness of Breath/Wheezing Last Admin: 08/29/24 21:10 Dose: 3 ml Atorvastatin Calcium (Atorvastatin Calcium 10 Mg Tablet) 10 mg PO DAILY [facility] Last Admin: 08/30/24 10:48 Dose: Not Given Calcium Carbonate (Calcium Carbonate 750 Mg Tab.Chew) 750 mg PO Q4H PRN PRN Reason: Heartburn Dextrose (Dextrose 50 % 25 Gm/50 Ml Syringe) 25 gm IVPUSH Q15M PRN; Protocol PRN Reason: per Hypoglycemia Standing Ord. Folic Acid (Folic Acid 1 Mg Tablet) 1 mg PO DAILY [facility] Last Admin: 08/30/24 10:56 Dose: Not Given Glucose (Glucose Gel 15 Gm Gel..Gram.) 15 gm PO Q15M PRN; Protocol PRN Reason: per Hypoglycemia Standing Ord. Insulin Human Lispro (Insulin Lispro 100 Unit/Ml 3 Ml Vial) 0 unit SUBCUT QIDACHS [facility]; Protocol Last Admin: 08/30/24 12:06 Dose: Not Given Magnesium Hydroxide (Milk Of Magnesia 30 Ml Oral.Susp) 30 ml PO DAILY PRN PRN Reason: Constipation Melatonin (Melatonin 3 Mg Tablet) 6 mg PO BEDTIME PRN PRN Reason: Insomnia Montelukast Sodium (Montelukast Sodium 10 Mg Tablet) 10 mg PO BEDTIME [facility] Morphine Sulfate (Morphine Sulfate 2 Mg/Ml Cartridge) 4 mg IVPUSH Q4H PRN; Protocol PRN Reason: Pain, Severe (Pain Scale 7-10) Last Admin: 08/30/24 09:56 Dose: 4 mg Omeprazole (Omeprazole 20 Mg Capsule.Dr) 20 mg PO DAILY@06 [facility] Last Admin: 08/30/24 06:37 Dose: Not Given Ondansetron HCl (Ondansetron Hcl 4 Mg/2 Ml Vial) 4 mg IVPUSH Q8H PRN PRN Reason: Nausea and Vomiting Prednisone (Prednisone 5 Mg Tablet) 5 mg PO DAILY [facility] Last Admin: 08/30/24 10:56 Dose: Not Given Quetiapine Fumarate (Quetiapine Fumarate 50 Mg Tablet) 50 mg PO BID [facility] Last Admin: 08/30/24 10:57 Dose: Not Given Senna (Sennosides 8.6 Mg Tablet) 8.6 mg PO DAILY PRN PRN Reason: Constipation Sertraline HCl (Sertraline Hcl 100 Mg Tablet) 200 mg PO DAILY [facility] Last Admin: 08/30/24 10:57 Dose: Not Given Sodium Chloride (0.9 % Sodium Chloride Flush 3 Ml Syringe) [facility] Last Admin: 08/30/24 07:42 Dose: Not Given Trazodone HCl (Trazodone Hcl 100 Mg Tablet) 100 mg PO BEDTIME [facility] Home Medications ?Medication ?Instructions ?Recorded ?Confirmed ?Last Taken ?Type sertraline 100 mg tablet 200 mg PO DAILY 04/30/23 08/29/24 08/29/24 History losartan 50 mg tablet 100 mg PO DAILY 06/21/23 08/29/24 08/29/24 History atorvastatin 10 mg tablet 10 mg PO DAILY 06/16/24 08/29/24 08/29/24 History omeprazole 20 mg capsule,delayed 20 mg PO DAILY@0630 06/16/24 08/29/24 08/29/24 History release sennosides 8.6 mg tablet (senna) 8.6 mg PO DAILY PRN Constipation 06/16/24 08/29/24 08/29/24 History spironolactone 25 mg tablet 25 mg PO DAILY 06/16/24 08/29/24 08/29/24 History trazodone 50 mg tablet 100 mg PO BEDTIME 06/16/24 08/29/24 08/29/24 History albuterol sulfate 90 mcg/actuation 2 inh inhalation Q4H PRN Shortness 08/29/24 08/29/24 08/29/24 History aerosol inhaler Of Breath Or Wheezing tiotropium bromide 2.5 inh inhalation DAILY@0800 08/29/24 08/29/24 History mcg/actuation mist for inhalation (Spiriva Respimat) Physical Exam Vital Signs: Vital Signs: Last Vital Signs Temp 97.9 F 08/30/24 10:53 Pulse 106 H 08/30/24 10:53 Resp 19 08/30/24 11:45 BP 114/60 08/30/24 10:53 Pulse Ox 95 08/30/24 10:53 O2 Del Method CPAP 08/30/24 10:53 O2 Flow Rate 15 08/29/24 20:13 FiO2 70 08/30/24 07:59 Oxygen Flow Rate 4 08/29/24 15:29 BMI result Body Mass Index 25.3 GENERAL APPEARANCE: On CPAP. NECK: no carotid bruit, no obvious jugular venous distention. SKIN: no suspicious lesions, warm and dry. HEART: no murmurs, regular rate and rhythm. LUNGS: Crackles left lung base. ABDOMEN: soft, nontender. EXTREMITIES: no edema. PERIPHERAL PULSES: equal. NEUROLOGIC: Somewhat slow to respond. Following simple commands. Objective Labs and Meds 08/30/24 04:18 08/30/24 04:18 Lab results: Laboratory Results - last 24 hr 08/29/24 08/29/24 08/29/24 17:22 18:18 18:23 WBC 12.0 H RBC 3.92 L Hgb 11.3 L Hct 34.1 L MCV 87.0 MCH 28.8 MCHC 33.1 RDW 15.3 Plt Count 185 MPV 10.0 Immature Gran % (Auto) 0.7 H Neut % (Auto) 85.1 H Lymph % (Auto) 9.4 L Lan[place] % (Auto) 4.4 Eos % (Auto) 0.3 Baso % (Auto) 0.1 Lymph # (Auto) 1.1 L Lanier # (Auto) 0.5 Eos # (Auto) 0.0 Baso # (Auto) 0.0 Abs Immat Gran (auto) 0.08 H Absolute Neuts (auto) 10.2 H Absolute Nucleated RBC 0.000 Nucleated RBC % (auto) 0.0 PT 11.7 INR 1.0 O2 Saturation ABG pH at Pt Temp ABG pCO2 at Pt Temp ABG pO2 at Pt Temp ABG HCO3 ABG Base Excess (Actual) VBG pH VBG pCO2 VBG pO2 VBG HCO3 VBG O2 Saturation VBG Base Excess Sodium 134 L Potassium 4.4 Chloride 101 Carbon Dioxide 21 L Anion Gap 16 BUN 36 H Creatinine 2.34 H Estim Creat Clear Calc 18.5 Estimated GFR 21 POC Glucose Random Glucose 199 H Calcium 8.8 D Total Bilirubin 0.2 Direct Bilirubin 0.2 AST 24 ALT 22 Alkaline Phosphatase 116 Troponin I High Sens 43.7 H D B-Natriuretic Peptide Total Protein 7.3 Albumin 3.9 Lipase 71 Urine Color Yellow Urine Appearance Clear Urine pH 5.5 Ur Specific [place] 1.015 Urine Protein Negative Urine Glucose (UA) >=1000 H Urine Ketones Negative Urine Blood Negative Urine Nitrite Negative Ur Leukocyte Esterase Negative Urine RBC 0-2 Urine WBC 0-5 Ur Squamous Epith Cells 0-2 Urine Bacteria None Seen Hyaline Casts 0-2 08/29/24 08/29/24 08/29/24 20:47 20:51 20:54 WBC RBC Hgb Hct MCV MCH MCHC RDW Plt Count MPV Immature Gran % (Auto) Neut % (Auto) Lymph % (Auto) Lanier % (Auto) Eos % (Auto) Baso % (Auto) Lymph # (Auto) Lanier # (Auto) Eos # (Auto) Baso # (Auto) Abs Immat Gran (auto) Absolute Neuts (auto) Absolute Nucleated RBC Nucleated RBC % (auto) PT INR O2 Saturation ABG pH at Pt Temp ABG pCO2 at Pt Temp ABG pO2 at Pt Temp ABG HCO3 ABG Base Excess (Actual) VBG pH 7.48 H VBG pCO2 30 VBG pO2 50 VBG HCO3 22 VBG O2 Saturation 84.0 VBG Base Excess 0.3 Sodium Potassium Chloride Carbon Dioxide Anion Gap BUN Creatinine Estim Creat Clear Calc Estimated GFR POC Glucose 127 H Random Glucose Calcium Total Bilirubin Direct Bilirubin AST ALT Alkaline Phosphatase Troponin I High Sens 84.9 H* D B-Natriuretic Peptide Total Protein Albumin Lipase Urine Color Urine Appearance Urine pH Ur Specific [place] Urine Protein Urine Glucose (UA) Urine Ketones Urine Blood Urine Nitrite Ur Leukocyte Esterase Urine RBC Urine WBC Ur Squamous Epith Cells Urine Bacteria Hyaline Casts 08/30/24 08/30/24 08/30/24 00:05 00:28 04:18 WBC 17.1 H RBC 3.88 L Hgb 11.1 L Hct 34.2 L MCV 88.1 MCH 28.6 MCHC 32.5 RDW 15.8 Plt Count 179 MPV 9.8 Immature Gran % (Auto) Neut % (Auto) Lymph % (Auto) Lanier % (Auto) Eos % (Auto) Baso % (Auto) Lymph # (Auto) Lanier # (Auto) Eos # (Auto) Baso # (Auto) Abs Immat Gran (auto) Absolute Neuts (auto) Absolute Nucleated RBC 0.000 Nucleated RBC % (auto) 0.0 PT INR O2 Saturation 94.0 ABG pH at Pt Temp 7.40 ABG pCO2 at Pt Temp 40 ABG pO2 at Pt Temp 72 L ABG HCO3 25 ABG Base Excess (Actual) 1.0 VBG pH VBG pCO2 VBG pO2 VBG HCO3 VBG O2 Saturation VBG Base Excess Sodium 138 Potassium 4.9 Chloride 101 Carbon Dioxide 21 L Anion Gap 21 H BUN 39 H Creatinine 2.25 H Estim Creat Clear Calc 19.3 Estimated GFR 22 POC Glucose Random Glucose 143 H Calcium 9.1 Total Bilirubin Direct Bilirubin AST ALT Alkaline Phosphatase Troponin I High Sens 142.4 H* D B-Natriuretic Peptide 153 H Total Protein Albumin Lipase Urine Color Urine Appearance Urine pH Ur Specific [place] Urine Protein Urine Glucose (UA) Urine Ketones Urine Blood Urine Nitrite Ur Leukocyte Esterase Urine RBC Urine WBC Ur Squamous Epith Cells Urine Bacteria Hyaline Casts 08/30/24 08/30/24 07:07 10:53 WBC RBC Hgb Hct MCV MCH MCHC RDW Plt Count MPV Immature Gran % (Auto) Neut % (Auto) Lymph % (Auto) Lanier % (Auto) Eos % (Auto) Baso % (Auto) Lymph # (Auto) [place] # (Auto) Eos # (Auto) Baso # (Auto) Abs Immat Gran (auto) Absolute Neuts (auto) Absolute Nucleated RBC Nucleated RBC % (auto) PT INR O2 Saturation ABG pH at Pt Temp ABG pCO2 at Pt Temp ABG pO2 at Pt Temp ABG HCO3 ABG Base Excess (Actual) VBG pH VBG pCO2 VBG pO2 VBG HCO3 VBG O2 Saturation VBG Base Excess Sodium Potassium Chloride Carbon Dioxide Anion Gap BUN Creatinine Estim Creat Clear Calc Estimated GFR POC Glucose 149 H 154 H Random Glucose Calcium Total Bilirubin Direct Bilirubin AST ALT Alkaline Phosphatase Troponin I High Sens B-Natriuretic Peptide Total Protein Albumin Lipase Urine Color Urine Appearance Urine pH Ur Specific [place] Urine Protein Urine Glucose (UA) Urine Ketones Urine Blood Urine Nitrite Ur Leukocyte Esterase Urine RBC Urine WBC Ur Squamous Epith Cells Urine Bacteria Hyaline Casts Imaging Radiologist's impression: Impressions Chest X-Ray 08/30/24 08:00 IMPRESSION: Prominent bilateral interstitial opacities in mid and lower lobes. Electronically signed by: Lisandro Ly MD 08/30/2024 08:37 AM EDT RP Assessment and Plan (1) KEVIN (acute kidney injury): Status: Acute (2) Acute on chronic heart failure with mildly reduced ejection fraction (HFmrEF, 41-49%): Status: Acute Plan [age] year female presenting with fall and acute kidney injury. Initially she was thought to be hypovolemic and given IV fluids but developed worsening shortness of breath and hypoxia and has been on CPAP. Chest x-ray is suggestive of congestive heart failure. I think she should be diuresed despite the acute kidney injury to improve her respiratory status. Hold losartan and spironolactone for now. History is quite limited from her because she appears somewhat confused and is also on CPAP. As she improves further we can reassess her for perioperative risk. We will follow along with you. Thank you for allowing me to participate in the care of your patient. Please feel free to contact me if you have any questions. Procedures Date of Service Date of Service: 08/30/24
[2024-08-30 13:02] LABS: VBG Base Excess 4.3 mmol/L; VBG HCO3 30 mmol/L (22-26); VBG pCO2 51 mmHg; VBG pH 7.38 (7.32-7.43); VBG pO2 46 mmHg
[2024-08-30 13:06] LABS: Venous Blood Gas Refer to POC result
[2024-08-30 16:35] LABS: Glucose, Whole Blood 187 mg/dL (60-115)
--- NOTE | 2024-08-30 16:59 | HO.WOUND ---
Wound Consult: Initial 64yr old? [place] [facility] [place] 18:07 - See progress notes and H&P for detailed history.? Wound consult placed for sacrum.? Patient agreeable to assessment and photo documentation.? Etiology: ?Unknonw etiology ?Present on Admission Does not appear to be pressure or moisture related Measurements: 1cm x 1cm Wound Bed: intact red raised scar like tissue remains blanchable Drainage / Odor: None Edges: ? well defined Susan wound: ?intact No Induration, Fluctuance or Warmth noted Pain: denies Goals of Treatment: ? Protect from friction and moisture with sacral foam dressing Recommendations: 1. Turn and Reposition every 2 hours and as needed for patient comfort.? Use pillows or wedges to support off loading positions. 2. Off Load all bony prominences with use of pillows and heel boots if needed.? Apply Preventative foams where needed. ? 3. Monitor for incontinence and moisture control, use barrier creams when needed for prevention and treatment. 4. Provide adequate and supplemental nutrition.? 5. Order low air loss mattress. 6. When applicable maintain blood glucose levels per Providers order. Sacrum - Apply Skin prep allow to dry. Apply foam dressing peel back and assess Q shift and change every 3 days. Re-consult wound care Nurse for wound deterioration or wound changes.
--- NOTE | 2024-08-30 17:18 | PC.NURSE ---
Assumed care for this patient at 1500. Pt found to be lethargic, barely responsive to name, would open eyes but they didn't remain open, Not able to follow commands or state name, dosing off. weather analyst utilized at this time during assessment and unable to obtain anything with gyroscope repairer. Respiratory called to bedside because patient was on non rebreather and unable to obtain a good O2 saturation. Upon auscultation pt had some expiratory wheezing present and very fine crackles at the bases. Messaged provider. After several attempts of trying to get an O2 reading one was obtained with a good pleth of 44 and TALENT ACQUISITION MANAGER was initiated. Blood gas obtained. Respiratory placed patient on BIPAP. At 1719 ,BP: 116/63HR 135, O2: 70, POC:260. EKG obtained: Sinus tach. Ordered placed at this time: CBC, BMP, D-Dimmer, Trops, Chest x ray, LFTs. At 1727, pt still remaining lethargic, increased work of breathing, only opening eyes to painful stimuli, decision to intubate per provider. Meds given; see MAR. At 1743 patient intubated 23 at the lip, good color return. CXR obtained after, confirmed placement. End vitals: 104/52, O2 100%, HR 125. Pt transferred to ICU.
[2024-08-30 17:23] LABS: ABG HCO3 20 mmol/L (22-26); ABG pCO2 39 mmHg (32-45); ABG pH 7.32 (7.35-7.45); ABG pO2 34 mmHg (83-108)
[2024-08-30 17:23] LABS: Glucose, Whole Blood 260 mg/dL (60-115)
--- NOTE | 2024-08-30 17:43 | PM.EVENT ---
Event Note Date of Service: 08/30/24 Event Note: 64-year-old woman with a history of heart failure, chronic respiratory failure on 4 L of oxygen at home, pulmonary hypertension, hypertension and admitted after fall complicated by hip fracture. Surgery was deferred to tomorrow due to acute on chronic hypoxia and KEVIN. Apparently patient was alert and oriented x3 this morning and conversing and responding. Unfortunately patient became hypoxic and necessitated a rapid response 1718 rapid response called for lethargy and hypoxia. ABG 7.32/39/34/20. Patient placed on BiPAP. Some improvement noted on 100% BiPAP but oxygen saturation still no higher than 91%. Patient remained lethargic and only open to eyes to painful stimulus, not following directions, concern for airway protection therefore patient intubated at bedside by ER provider. Chest x-ray noted good placement of ET tube, patient transferred to ICU for higher level of care Labs ordered and pending include: CBC, BMP, BNP, troponin, D-dimer Chest x-ray Head CT Multiple attempts made to reach patient's family, however unsuccessful. Time Spent With Patient Time: Total time managing care of this patient today ____ minutes.
[2024-08-30] MEDS: propofoL 1,000 MG/100 ML VIAL 10.93 MG IVCONT (18:03)
[2024-08-30] MEDS: Norepinephrine Bitartrate/D5W 8 MG/250 ML PLAST..BAG 5.69 MG IVCONT (18:10)
[2024-08-30 18:19] LABS: Hematocrit 30.7 % (37.0-47.0); Hemoglobin 10.1 g/dl (12.0-16.0); Mean Corpuscular HGB Conc 32.9 g/dl (31.0-35.0); Mean Corpuscular Hemoglobin 28.9 pg (27.0-33.0); Mean Platelet Volume 10.3 fL (9.4-12.3); Platelet Count 153 X10*3/uL (160-400); Red Blood Count 3.49 X10*6/uL (4.20-5.50); Red Cell Distribution Width 15.6 % (11.0-16.0); White Blood Count 18.3 X10*3/uL (4.8-10.8)
[2024-08-30 18:30] LABS: Anion Gap 20 (12-20); Blood Urea Nitrogen 46 mg/dL (9-16); Calcium 8.8 mg/dL (8.4-10.2); Carbon Dioxide 19 mmol/L (22-29); Chloride 104 mmol/L (96-108); Estimated Glomerular Filt Rate 22; Glucose Random 247 mg/dL (60-115); Sodium 138 mmol/L (135-145)
[2024-08-30 18:32] LABS: D Dimer High Sensitivity 1053 NG/ML
[2024-08-30 18:38] LABS: B Type Natriuretic Peptide 1652 pg/mL (<100)
[2024-08-30 18:41] LABS: Troponin-I High Sensitivity 916.4 ng/L (<3.5-17.0)
--- NOTE | 2024-08-30 18:59 | ECG_ITS ---
Test Reason : elevated trop Blood Pressure : */* mmHG Vent. Rate : 128 BPM Atrial Rate : 128 BPM P-R Int : 140 ms QRS Dur : 128 ms QT Int : 324 ms P-R-T Axes : 52 -1 -3 degrees QTcB Int : 473 ms Sinus tachycardia Right bundle branch block Inferior infarct (cited on or before 29-Aug-2024) Anteroseptal infarct , age undetermined Abnormal ECG When compared with ECG of 29-Aug-2024 16:45, Right bundle branch block has replaced Non-specific intra-ventricular conduction block Anteroseptal infarct is now Present Referred By: Pancho Alaniz Electronically Signed By: Kemar Curry
[2024-08-30] MEDS: Etomidate 20 MG/10 ML VIAL IVPUSH (19:04)
[2024-08-30] MEDS: Rocuronium Bromide 50 MG/5 ML VIAL 100 MG IVPUSH (19:05)
[2024-08-30 19:15] LABS: Glucose, Whole Blood 191 mg/dL (60-115)
[2024-08-30 19:33] LABS: Venous Blood Gas Refer to POC result
[2024-08-30 19:33] LABS: VBG Base Excess -3.9 mmol/L; VBG HCO3 18 mmol/L (22-26); VBG pCO2 26 mmHg; VBG pH 7.45 (7.32-7.43); VBG pO2 46 mmHg
[2024-08-30 19:48] LABS: ABG Refer to POC result
[2024-08-30 19:51] LABS: Alanine Aminotransferase 78 U/L (0-31); Albumin Level 3.8 g/dL (3.5-5.0); Alkaline Phosphatase 118 U/L (39-117); Anion Gap 20 (12-20); Aspartate Amino Transferase 146 U/L (5-31); Bilirubin Total 0.8 mg/dL (0.0-1.0); Blood Urea Nitrogen 48 mg/dL (9-16); Calcium 9.1 mg/dL (8.4-10.2); Carbon Dioxide 19 mmol/L (22-29); Chloride 103 mmol/L (96-108); Creatinine Clr Calc Pharmacy 22.5; Estimated Glomerular Filt Rate 23; Glucose Random 223 mg/dL (60-115); Magnesium 2.3 mg/dL (1.6-2.6); Phosphorus 5.2 mg/dL (2.7-4.5); Potassium 5.2 mmol/L (3.3-5.1); Sodium 137 mmol/L (135-145); Total Protein 7.2 g/dL (6.5-8.0)
[2024-08-30 19:52] LABS: Lactic Acid 3.5 mmol/L (0.5-2.0)
--- NOTE | 2024-08-30 20:03 | W.PM.CCCN ---
History of Present Illness Data of Consult Service Date: 08/30/24 Requesting physician: Rachel Winslow Primary Care Provider: Analisa Chavez MD [facility] Reason for consult: Hypoxia The patient is a 64-year-old female with a? past medical history significant for HFrEF (EF 40-45%), COPD with chronic hypoxic respiratory failure on 4L home O2, pulmonary hypertension, [id number]-[id number] type 2 diabetes, HTN, HLD, and hx of SVT who presents to the? emergency department on 08/29/2024 with right hip pain secondary to fall at home.? Admitted to Hospital Medicine for right femoral neck fracture? with plans to have orthopedic surgery on 08/30/24.? ?Overnight,? patient with signs of pulmonary? edema requiring Lasix ? And CPAP support.? ?Throughout the day patient requiring CPAP support and slightly confused.? Orthopedic surgery was rescheduled.? Seen by cardiology who recommended further diuresis.? Nephrology recommended hold diuresis for the next 24 hours.? ?Later in the afternoon patient was a rapid response,? patient is severely hypoxic to 70s, ? obtunded,? with concerns of airway protection.? She required emergent? intubation on the floor and transferred to ICU.? 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 7.32/39/34/20 Review of Systems Review of Systems: Yes unobtainable due to endotracheal tube PMFSH Past Medical History Medical History Influenza A Asthma with exacerbation Hypoglycemia associated with type 2 diabetes mellitus HTN (hypertension) Acute hypoxic respiratory failure CHF (congestive heart failure) NSTEMI (non-ST elevated myocardial infarction) Hypoxic respiratory failure Chronic lung disease Congestive heart failure Mild recurrent major depression Hospital discharge follow-up Severe chronic obstructive pulmonary disease Diabetes Mitral regurgitation Chest pain Lumbar degenerative disc disease Right lower lobe pneumonitis Congestive heart failure Acute and chronic respiratory failure with hypoxia Respiratory failure with hypoxia and hypercapnia Atelectasis, right Hypertensive emergency Pulmonary hypertension Osteoporosis Essential hypertension Supraventricular tachycardia Nonischemic cardiomyopathy Non-rheumatic mitral regurgitation Tobacco abuse Depression Anxiety Chronic respiratory failure HFrEF (heart failure with reduced ejection fraction) KELLIE (obstructive sleep apnea) HLD (hyperlipidemia) Family History Family History Father No problems noted. Mother Liver cancer Hypertension Surgical History Surgical History H/O hysterectomy for benign disease History of total abdominal hysterectomy Bilateral ankle fractures Social History Social History Household Members: Family Household Members Other:: 1 Housing: House Do you presently have visiting nurse or other home services: Yes (aid comes 2 hours a day) Unable to assess alcohol history related to: Unable to respond Alcohol intake: never Patient Tobacco Use Status: Never used Tobacco Tobacco use type: Cigarette Cigarettes Per Day: 5 Years Smoked: 50 +/- e-Cigarette/Vaping Use: Never Used Second Hand Smoke Exposure: No Advance Directives Date on File: 05/18/23 service: No Current occupational status: disabled Cognitive needs: Yes Hearing needs: No Vision needs: No Meds Allergies Allergy/AdvReac Type Severity Reaction Status Date / Time nicotine [Nicotine] Allergy Mild ITCHING Verified 08/29/24 15:45 WITH THE PATCHES topiramate Allergy Mild inadequealte Verified 08/29/24 15:45 response Active Medications: Current Medications Acetaminophen (Acetaminophen 325 Mg Tablet) 650 mg PO Q6H PRN PRN Reason: Pain, Mild 1-3,fever,headache Albuterol Sulfate (Albuterol Sulfate 90 Mcg 8 Gm Inhaler) 2 puff INHALE Q4H PRN PRN Reason: Shortness Of Breath Or Wheezing Albuterol/Ipratropium (Albuterol/Iprat 2.5/0.5mg 3 Ml Ampul.Neb) 3 ml INHALE RQ4H WHILE AWAKE PRN PRN Reason: Shortness of Breath/Wheezing Last Admin: 08/29/24 21:10 Dose: 3 ml Atorvastatin Calcium (Atorvastatin Calcium 10 Mg Tablet) 10 mg PO DAILY WALDEMAR Last Admin: 08/30/24 10:48 Dose: Not Given Calcium Carbonate (Calcium Carbonate 750 Mg Tab.Chew) 750 mg PO Q4H PRN PRN Reason: Heartburn Dextrose (Dextrose 50 % 25 Gm/50 Ml Syringe) 25 gm IVPUSH Q15M PRN; Protocol PRN Reason: per Hypoglycemia Standing Ord. Folic Acid (Folic Acid 1 Mg Tablet) 1 mg PO DAILY [facility] Last Admin: 08/30/24 10:56 Dose: Not Given Glucose (Glucose Gel 15 Gm Gel..Gram.) 15 gm PO Q15M PRN; Protocol PRN Reason: per Hypoglycemia Standing Ord. Cefazolin Sodium/Dextrose (Ancef) 2 gm in 50 mls @ 100 mls/hr IV PREOP ONE Stop: 08/31/24 07:29 Propofol (Diprivan) 1,000 mg in 100 mls @ 0 mls/hr IVCONT .Q0M [facility]; Protocol Last Admin: 08/30/24 18:03 Dose: 30 mcg/kg/min, 10.93 mls/hr Norepinephrine Bitartrate (Levophed) 8 mg in 250 mls @ 0 mls/hr IVCONT .Q0M [facility]; Protocol Last Titration: 08/30/24 19:32 Dose: 0.19 mcg/kg/min, 21.62 mls/hr Insulin Human Lispro (Insulin Lispro 100 Unit/Ml 3 Ml Vial) 0 unit SUBCUT QIDACHS [facility]; Protocol Last Admin: 08/30/24 17:58 Dose: Not Given Magnesium Hydroxide (Milk Of Magnesia 30 Ml Oral.Susp) 30 ml PO DAILY PRN PRN Reason: Constipation Melatonin (Melatonin 3 Mg Tablet) 6 mg PO BEDTIME PRN PRN Reason: Insomnia Montelukast Sodium (Montelukast Sodium 10 Mg Tablet) 10 mg PO BEDTIME [facility] Morphine Sulfate (Morphine Sulfate 2 Mg/Ml Cartridge) 4 mg IVPUSH Q4H PRN; Protocol PRN Reason: Pain, Severe (Pain Scale 7-10) Last Admin: 08/30/24 09:56 Dose: 4 mg Omeprazole (Omeprazole 20 Mg Capsule.Dr) 20 mg PO DAILY@0630 [facility] Last Admin: 08/30/24 06:37 Dose: Not Given Ondansetron HCl (Ondansetron Hcl 4 Mg/2 Ml Vial) 4 mg IVPUSH Q8H PRN PRN Reason: Nausea and Vomiting Prednisone (Prednisone 5 Mg Tablet) 5 mg PO DAILY [facility] Last Admin: 08/30/24 10:56 Dose: Not Given Quetiapine Fumarate (Quetiapine Fumarate 50 Mg Tablet) 50 mg PO BID [facility] Last Admin: 08/30/24 10:57 Dose: Not Given Senna (Sennosides 8.6 Mg Tablet) 8.6 mg PO DAILY PRN PRN Reason: Constipation Sertraline HCl (Sertraline Hcl 100 Mg Tablet) 200 mg PO DAILY [facility] Last Admin: 08/30/24 10:57 Dose: Not Given Sodium Chloride (0.9 % Sodium Chloride Flush 3 Ml Syringe) 3 ml IVFLUSH QSHIFT [facility] Last Admin: 08/30/24 17:51 Dose: Not Given Trazodone HCl (Trazodone Hcl 100 Mg Tablet) 100 mg PO BEDTIME [facility] Home Medications ?Medication ?Instructions ?Recorded ?Confirmed ?Last Taken ?Type sertraline 100 mg tablet 200 mg PO DAILY 04/30/23 08/29/24 08/29/24 History losartan 50 mg tablet 100 mg PO DAILY 06/21/23 08/29/24 08/29/24 History atorvastatin 10 mg tablet 10 mg PO DAILY 06/16/24 08/29/24 08/29/24 History omeprazole 20 mg capsule,delayed 20 mg PO DAILY@0630 06/16/24 08/29/24 08/29/24 History release sennosides 8.6 mg tablet (senna) 8.6 mg PO DAILY PRN Constipation 06/16/24 08/29/24 08/29/24 History spironolactone 25 mg tablet 25 mg PO DAILY 06/16/24 08/29/24 08/29/24 History trazodone 50 mg tablet 100 mg PO BEDTIME 06/16/24 08/29/24 08/29/24 History albuterol sulfate 90 mcg/actuation 2 inh inhalation Q4H PRN Shortness 08/29/24 08/29/24 08/29/24 History aerosol inhaler Of Breath Or Wheezing tiotropium bromide 2.5 inh inhalation DAILY@0800 08/29/24 08/29/24 History mcg/actuation mist for inhalation (Spiriva Respimat) Physical Exam Vital Signs: Vital Signs: Last Vital Signs Temp 98.6 F 08/30/24 15:47 Pulse 131 H 08/30/24 19:32 Resp 20 08/30/24 15:47 BP 99/46 L 08/30/24 19:32 Pulse Ox 100 08/30/24 15:47 O2 Del Method Non-Rebreather Ma 08/30/24 15:47 O2 Flow Rate 15 08/30/24 15:47 FiO2 100 08/30/24 19:33 Oxygen Flow Rate 4 08/29/24 15:29 BMI result Body Mass Index 25.3 ?General:? INTUBATED ?HEENT:? Head is normocephalic, atraumatic, pupils equal round reactive to light accommodation bilaterally.?Buccal mucosa is dry, Neck is supple. ?Cardiac:? Clear S1-S2, no murmurs rubs or gallops. ?Pulmonary:? Rhonchus at bases, no wheezes. on AC settings ?Abdomen:? ?Abdomen soft, non-tender, non-distended. Normal bowel sounds. No pulsatile mass. No hepatosplenomegaly. ?Musculoskeletal:? Moving all 4 extremities randomly.? Gait not assessed at this point. ?Neurologic:? cranial nerves 2-12 are grossly intact.? No focal deficits noted.Motor strength as above.?? ?Skin:? Skin is dry, bilateral trace pedal edema Vascular:? 2+ pulses upper and lower extremities distally.? Results Labs 08/31/24 05:06 08/31/24 05:06 Labs: Short CBC 08/30/24 08/30/24 Range/Units 04:18 18:11 WBC 17.1 H 18.3 H (4.8-10.8) X10*3/uL Hgb 11.1 L 10.1 L (12.0-16.0) g/dl Hct 34.2 L 30.7 L (37.0-47.0) % Plt Count 179 153 L (160-400) X10*3/uL BMP 08/30/24 08/30/24 08/30/24 04:18 18:11 19:21 Sodium 138 138 137 Potassium 4.9 5.0 5.2 H Chloride 101 104 103 Carbon Dioxide 21 L 19 L 19 L BUN 39 H 46 H 48 H Creatinine 2.25 H 2.29 H 2.13 H Calcium 9.1 8.8 9.1 Liver Function 08/30/24 Range/Units 19:21 Total Bilirubin 0.8 (0.0-1.0) mg/dL AST 146 H (5-31) U/L ALT 78 H (0-31) U/L Alkaline Phosphatase 118 H (39-117) U/L Albumin 3.8 (3.5-5.0) g/dL Assessment and Plan (1) Shock: Status: Acute (2) Acute on chronic respiratory failure with hypoxemia: Status: Resolved (3) Heart failure with recovered ejection fraction (HFrecEF): Status: Acute (4) KEVIN (acute kidney injury): Status: Acute (5) Closed right hip fracture: Status: Acute (6) Acute on chronic congestive heart failure: Status: Resolved (7) Aspiration into airway: Status: Acute (8) Elevated troponin: Status: Acute (9) Transaminitis: Status: Acute Plan 64-year-old female with a? past medical history significant for HFrEF (EF 40-45%), COPD with chronic hypoxic respiratory failure on 4L home O2, pulmonary hypertension, [id number] type 2 diabetes, HTN, HLD? transferred to ICU for management of undifferentiated shock and respiratory failure requiring? ventilatory support Plan: Neuro: No acute issues? Cardiac:?? Undifferentiated shock-? no evidence of septic shock,? ? cardiogenic versus obstructive shock,? patient has some degree of pulmonary edema vs suspected fat embolism. ? No need for 30 mL/kg per cc fluid resuscitation. chest? CTA negative for? PE,? but this does not rule out fat embolism,? which is? highly likely due to sudden decompensation and recent hip fracture.? Echo is pending.? Wean off pressors as tolerated. Congestive heart failure exacerbation:? imaging does show some degree of pulmonary edema,? echo? from the morning is pending,? last echo from 06/15/24 EF 40- 45%.? Cardiology recommended? further diuresing,? but due to KEVIN? renal recommended against diuresing.? During [employer] RECRU[facility] patient received 40 mg of Lasix.? We will continue to assess further need for diuresing.? Appreciate Cardiology and Renal recommendations.? ? Elevated troponin:? EKG with no changes from previous,? could be related to congestive heart failure exacerbation.? We will repeat troponins sensitivity? Pulmonary: ?Acute hypoxic respiratory distress: ? patient required emergent intubation due to hypoxia and? airway protection, this likely from suspected fat embolism.? Wean ventilator support as tolerated. ??Aspiration into airway: ? patient likely aspirated into airway during? sudden decompensation,? no evidence of severe airway infection at this time,? but will cover patient with Unasyn for possible aspiration pneumonitis.? Renal:? ?KEVIN? nonoliguric,? from shock.? Continue to? trend renal indices and urine output.? Renal following.? Appreciate recommendations.? Endo:?? ?No acute issues GI:?? Transaminitis: From shock, no no evidence of bleeding. Continue to trend ID: ?No acute issues Heme/Onc:? No acute issues. ?Musculoskeletal:? Right femoral neck fracture- from mechanical fall.? Due to acute on chronic hypoxia and acute kidney injury surgery deferred for today. Orthopedics following. Surgery date pending.? Psych:? No acute issues. Miscellaneous:? there is a MOLST form that states the patient is DNR/ DNI from 08/04/2023,? also found Healthcare proxy form that states? Healthcare proxy is Chanelle Walton (also her [employer]CHER), ,? who also confirmed patient is DNR DNI.? code status change in the chart,? as well as? contact information for Healthcare proxy has been updated Prophylaxis: ? subQ heparin,??? CODE: ? DNR/DNI confirmed with MOLST AND HCP Critical care time: X 90 minutes of critical care time?
--- NOTE | 2024-08-30 20:04 | HE.NUR.EV ---
Status Change: -WOOD SHINGLE ROOFER called on telemetry unit... this RN to bedside... Rachel GALVAN leading WOOD SHINGLE ROOFER... multiple labs ordered including D-Dimer, CBC, BNP, and repeat troponin. Patient intubated at bedside for airway protection due to inability to manage airway, large change in mental status when compared with earlier in shift, and need for High FIO2 and BIPAP support. see MAR for related medications. ED doctor came to bedside and performed intubation with respiratory team help. Immediate Actions Taken: -multiple labs -intubation -transfer to ICU for intubation, sedation, pressor support Further Monitoring and Treatment: -Per P[employer] Field Service Technician... patient to be sent to CTA -patient handed off to Night RN intubated, and sedated, report done and both RNs to bedside to put eyes on patient.
[2024-08-30] MEDS: iohexoL 350 MG/ML 100 ML INFUS..BTL IV (20:28)
[2024-08-30 21:14] LABS: Glucose, Whole Blood 181 mg/dL (60-115)
[2024-08-30 21:25] LABS: Reflex Lactate? Lactic Acid Added
[2024-08-30] MEDS: Ampicillin Sodium/Sulbactam Na 3 GM in 0.9 % Sodium Chloride 100 ML IV (21:32)
[2024-08-30 21:39] LABS: ABG Base Excess 1.4 mmol/L; ABG HCO3 27 mmol/L (22-26); ABG pCO2 49 mmHg (32-45); ABG pH 7.35 (7.35-7.45); ABG pO2 72 mmHg (83-108)
--- NOTE | 2024-08-30 21:43 | PC.RT ---
Pt transported to CT, no complications. ABG drawn. ETT moved to 22 @ lip per provider CH.
[2024-08-30] MEDS: Heparin Sodium,Porcine 5,000 UNIT/ML VIAL 5000 UNIT SUBCUT (21:45)
[2024-08-30 21:54] LABS: ~Lactic Acid-LAB USE ONLY 4.2 mmol/L (0.5-2.0)
[2024-08-30 23:19] LABS: ABG Refer to POC result
[2024-08-30 23:33] LABS: Reflex Lactate? 2 Y
[2024-08-30] MEDS: Acetaminophen 325 MG TABLET 650 MG PO (23:36)
[2024-08-31] VITALS (67 sets, daily range): BP systolic 70–142; BP diastolic 25–99; PULSE 110–137; RESP 13–28; TEMP 34.9–39.1; O2SAT 85–100; BMI 23.1
[2024-08-31] MEDS: propofoL 1,000 MG/100 ML VIAL 7.28 MG IVCONT (00:30)
[2024-08-31 00:32] LABS: Glucose, Whole Blood 167 mg/dL (60-115)
[2024-08-31] MEDS: 0.9 % Sodium Chloride Flush 3 ML SYRINGE IVFLUSH ×3 (00:47→15:31)
[2024-08-31] MEDS: Midazolam HCl 2 MG/2 ML VIAL IVPUSH ×2 (01:05→19:54)
[2024-08-31 01:50] LABS: Hematocrit 30.5 % (37.0-47.0); Hemoglobin 10.1 g/dl (12.0-16.0); Mean Corpuscular HGB Conc 33.1 g/dl (31.0-35.0); Mean Corpuscular Hemoglobin 28.5 pg (27.0-33.0); Mean Corpuscular Volume 86.2 fL (80.0-98.0); Mean Platelet Volume 10.5 fL (9.4-12.3); Platelet Count 186 X10*3/uL (160-400); Red Blood Count 3.54 X10*6/uL (4.20-5.50); Red Cell Distribution Width 15.7 % (11.0-16.0); White Blood Count 22.4 X10*3/uL (4.8-10.8)
[2024-08-31 01:56] LABS: INTERNATIONAL NORM RATIO 1.2 (0.9-1.1); Prothrombin Time 13.4 SEC (10.9-12.4)
[2024-08-31 02:09] LABS: Anion Gap 17 (12-20); Blood Urea Nitrogen 53 mg/dL (9-16); Calcium 8.8 mg/dL (8.4-10.2); Carbon Dioxide 24 mmol/L (22-29); Chloride 102 mmol/L (96-108); Creatinine Clr Calc Pharmacy 21.3; Estimated Glomerular Filt Rate 22; Glucose Random 167 mg/dL (60-115); Magnesium 2.3 mg/dL (1.6-2.6); Phosphorus 4.4 mg/dL (2.7-4.5); Potassium 4.7 mmol/L (3.3-5.1); Sodium 138 mmol/L (135-145)
[2024-08-31] MEDS: Heparin Sodium,Porcine/1/2NS 25,000 UNIT/250 ML IV.SOLN 8.5 UNIT IVCONT (02:31)
[2024-08-31] MEDS: Norepinephrine Bitartrate/NS 16 MG/250 ML PLAST..BAG 17.07 MG IVCONT (02:54)
[2024-08-31] MEDS: Ampicillin Sodium/Sulbactam Na 3 GM in 0.9 % Sodium Chloride 100 ML IV ×3 (03:02→21:46)
[2024-08-31 05:15] LABS: VBG Base Excess -0.9 mmol/L; VBG HCO3 23 mmol/L (22-26); VBG pCO2 35 mmHg; VBG pH 7.42 (7.32-7.43); VBG pO2 37 mmHg
[2024-08-31 05:27] LABS: MANUAL DIFF FLAG NO
[2024-08-31 05:29] LABS: Basophils Absolute Auto 0.1 X10*3/uL (0.0-0.2); Basophils Percent Auto 0.2 % (0-2); Eosinophils Absolute Auto 0.1 X10*3/uL (0.0-0.4); Eosinophils Percent Auto 0.3 % (0-4); Hematocrit 30.5 % (37.0-47.0); Hemoglobin 10.2 g/dl (12.0-16.0); Imm Gran Abs Auto 0.24 X10*3/uL (0.00-0.03); Imm Gran Pct Auto 1.1 % (0.0-0.4); Lymphocytes Absolute Auto 2.4 X10*3/uL (1.2-4.9); Mean Corpuscular HGB Conc 33.4 g/dl (31.0-35.0); Mean Corpuscular Volume 86.6 fL (80.0-98.0); Mean Platelet Volume 10.6 fL (9.4-12.3); Monocytes Absolute Auto 1.2 X10*3/uL (0.1-1.2); Monocytes Percent Auto 5.5 % (2-11); NRBC Pct Auto 0.1 /100WBC (0.0-0.2); Neutrophils Absolute Auto 17.4 x10*3/uL (2.0-8.3); Neutrophils Percent Auto 81.9 % (45-73); Platelet Count 183 X10*3/uL (160-400); Red Blood Count 3.52 X10*6/uL (4.20-5.50); Red Cell Distribution Width 15.8 % (11.0-16.0); White Blood Count 21.3 X10*3/uL (4.8-10.8)
[2024-08-31] MEDS: Vasopressin 20 UNIT/100 ML INFUS..BTL 12 UNIT IVCONT ×3 (05:52→20:30)
[2024-08-31 05:56] LABS: Alanine Aminotransferase 132 U/L (0-31); Albumin Level 3.4 g/dL (3.5-5.0); Anion Gap 19 (12-20); Aspartate Amino Transferase 210 U/L (5-31); Bilirubin Total 0.7 mg/dL (0.0-1.0); Blood Urea Nitrogen 53 mg/dL (9-16); Calcium 8.7 mg/dL (8.4-10.2); Carbon Dioxide 21 mmol/L (22-29); Chloride 103 mmol/L (96-108); Creatinine Clr Calc Pharmacy 21.7; Estimated Glomerular Filt Rate 22; Glucose Random 160 mg/dL (60-115); Magnesium 2.2 mg/dL (1.6-2.6); Phosphorus 4.4 mg/dL (2.7-4.5); Potassium 4.4 mmol/L (3.3-5.1); Sodium 139 mmol/L (135-145); Total Protein 6.6 g/dL (6.5-8.0)
[2024-08-31 06:09] LABS: Alkaline Phosphatase 107 U/L (39-117)
[2024-08-31] MEDS: Pantoprazole Sodium 40 MG/10 ML VIAL IVPUSH (06:10)
--- NOTE | 2024-08-31 06:16 | HO.SKINPHOTO ---
Location: Right hip Category: Bruise
[2024-08-31 06:17] LABS: Venous Blood Gas Refer to POC result
--- NOTE | 2024-08-31 07:01 | PC.NURSE ---
Upon initial assessment at 1900- pt sedated on Propofol gtt, RASS -3, opens eyes to tactile stimuli, tracks speaker, does not follow commands, weakly MORGAN. Sinus tach on tele, HR 120s. Levophed gtt infusing and titrated to maintain MAP > 65. ETT #7.5, 24 cm at lip, on ACVC settings. OGT clamped. Castle in place, UOP as charted. Transported to CT scan at approx 2000 without incident- SUPPORT ANALYST Corbin aware of results. ETT pulled back to 22 cm at the lip by RT per SUPPORT ANALYST. Tmax 101.5 via core esophageal probe- SUPPORT ANALYST aware. PRN APAP given per JUL and ice packs applied to B/L axilla. Blood cultures and repeat labs obtained- see EMR. SUPPORT ANALYST aware of critical troponin, Heparin gtt ordered and started per JUL. Attempted to lay patient flat for central line insertion, patient unable to maintain SpO2 >90. SUPPORT ANALYST and RT at bedside, PEEP increased by RT, SpO2 >90. Left IJ TLC placed by SUPPORT ANALYST, placement confirmed by pCXR. Levophed gtt changed to x2 concentrated. Vasopressin ordered and started per JUL due to increasing vasopressor requirements. 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 Repositioned in bed q2hr with pillows. Bed locked in lowest position, alarm on. See EMR/flowsheet for further details.
[2024-08-31] MEDS: propofoL 1,000 MG/100 ML VIAL 18.21 MG IVCONT ×4 (07:43→22:48)
--- NOTE | 2024-08-31 08:03 | PM.EVENT ---
Event Note Date of Service: 08/31/24 Event Note: 08/30/24: Patient hypoxic on the floor Yesterday afternoon patient was a rapid response on the floor due to severe hypoxia in the 70s, ? Obtunded with concerns of airway protection Patient required emergent?intubation on the floor and was transferred to the ICU Suspected fat emboli Cardiology and Nephrology following for CHF and KEVIN Cardiology recommended? further diuresing,? but due to KEVIN? renal recommended against diuresing Echo Pending Orthopedics continuing to follow Time Spent With Patient Time: Total time managing care of this patient today ____ minutes.
--- NOTE | 2024-08-31 08:20 | PM.PNNEP ---
Subjective Subjective Date of Service: 08/31/24 Interval history: Patient is a 64 y/o female with a medical history of HFrEF, COPD on 4L home O2, pulmonary HTN, DMII, HTN, HLD, history of SVT, cigarette use who presented 08/29 with right hip pain after a fall at home. On admission creatinine 2.34, previously 1.03 in June. 08/30 is 2.25. Blood pressures low on admission (95/71). transferred to ICU on evening of 08/30 due to hypoxic respiratory failure Nephrology consulted for KEVIN. home furosemide and spironolactone were held since admission due to KEVIN on presentation. reportedly taking daily nsaid at home for pain- primarily headaches creatinine has remained fairly stable since admission. Creatinine 2.34 08/29, 1.29 08/30, 2.22 08/31. electrolytes are unremarkable she is making urine Patient is intubated and sedated at bedside. fio2 requirements have remained high throughout the night with foi2 at 95% despite diuresis with IVP furosemide. Patient is tachycardic with hypotension requiring support with multiple vasopressors. Physical Exam Vital Signs: Vital Signs: Last Vital Signs Temp 102 F H 08/31/24 09:00 Pulse 133 H 08/31/24 09:00 Resp 20 08/31/24 09:00 BP 106/52 L 08/31/24 09:00 Pulse Ox 94 08/31/24 09:00 O2 Del Method Mechanical Ventil ation 08/31/24 09:00 O2 Flow Rate 15 08/30/24 15:47 FiO2 95 08/31/24 09:00 Oxygen Flow Rate 4 08/29/24 15:29 BMI result Body Mass Index 23.1 Const: General: other (intubated, sedated. ) Neck: Neck: Yes no JVD Resp: Effort & Inspection: other (mechanical ventilation) Auscultation: wheezes Cardio: Rate: regular rate Rhythm: regular rhythm Heart sounds: S1 normal heart sound present and S2 normal heart sound present GI: Palpation (GI): Soft to palpation and nontender Neuro: Other: sedated; no tremor noted. Extrem: General: No edema Objective Data Labs 08/31/24 05:06 08/31/24 05:06 Labs: Laboratory Results - last 24 hr 08/30/24 08/30/24 08/30/24 10:53 12:59 16:23 WBC RBC Hgb Hct MCV MCH MCHC RDW Plt Count MPV Immature Gran % (Auto) Neut % (Auto) Lymph % (Auto) [place] % (Auto) Eos % (Auto) Baso % (Auto) Lymph # (Auto) [place] # (Auto) Eos # (Auto) Baso # (Auto) Abs Immat Gran (auto) Absolute Neuts (auto) Absolute Nucleated RBC Nucleated RBC % (auto) PT INR aPTT Heparin Protocol D-Dimer High Sensitivty O2 Saturation ABG pH at Pt Temp ABG pCO2 at Pt Temp ABG pO2 at Pt Temp ABG HCO3 ABG Base Excess (Actual) VBG pH 7.38 VBG pCO2 51 VBG pO2 46 VBG HCO3 30 H VBG O2 Saturation 72.0 VBG Base Excess 4.3 Sodium Potassium Chloride Carbon Dioxide Anion Gap BUN Creatinine Estim Creat Clear Calc Estimated GFR POC Glucose 154 H 187 H Random Glucose Lactic Acid Lactic Acid F/U @ 2Hr Lactic Acid F/U @ 4Hr Calcium Phosphorus Magnesium Total Bilirubin AST ALT Alkaline Phosphatase Troponin I High Sens B-Natriuretic Peptide Total Protein Albumin 08/30/24 08/30/24 08/30/24 17:18 17:19 18:11 WBC 18.3 H RBC 3.49 L Hgb 10.1 L Hct 30.7 L MCV 88.0 MCH 28.9 MCHC 32.9 RDW 15.6 Plt Count 153 L MPV 10.3 Immature Gran % (Auto) Neut % (Auto) Lymph % (Auto) [place] % (Auto) Eos % (Auto) Baso % (Auto) Lymph # (Auto) [place] # (Auto) Eos # (Auto) Baso # (Auto) Abs Immat Gran (auto) Absolute Neuts (auto) Absolute Nucleated RBC 0.000 Nucleated RBC % (auto) 0.0 PT INR aPTT Heparin Protocol D-Dimer High Sensitivty 1053 O2 Saturation 50.0 ABG pH at Pt Temp 7.32 L ABG pCO2 at Pt Temp 39 ABG pO2 at Pt Temp 34 L* ABG HCO3 20 L ABG Base Excess (Actual) -5.0 VBG pH VBG pCO2 VBG pO2 VBG HCO3 VBG O2 Saturation VBG Base Excess Sodium 138 Potassium 5.0 Chloride 104 Carbon Dioxide 19 L Anion Gap 20 BUN 46 H Creatinine 2.29 H Estim Creat Clear Calc 21.0 Estimated GFR 22 POC Glucose 260 H Random Glucose 247 H Lactic Acid Lactic Acid F/U @ 2Hr Lactic Acid F/U @ 4Hr Calcium 8.8 Phosphorus Magnesium Total Bilirubin AST ALT Alkaline Phosphatase Troponin I High Sens 916.4 H* D B-Natriuretic Peptide 1652 H Total Protein Albumin 08/30/24 08/30/24 08/30/24 19:11 19:21 19:28 WBC RBC Hgb Hct MCV MCH MCHC RDW Plt Count MPV Immature Gran % (Auto) Neut % (Auto) Lymph % (Auto) [place] % (Auto) Eos % (Auto) Baso % (Auto) Lymph # (Auto) [place] # (Auto) Eos # (Auto) Baso # (Auto) Abs Immat Gran (auto) Absolute Neuts (auto) Absolute Nucleated RBC Nucleated RBC % (auto) PT INR aPTT Heparin Protocol D-Dimer High Sensitivty O2 Saturation ABG pH at Pt Temp ABG pCO2 at Pt Temp ABG pO2 at Pt Temp ABG HCO3 ABG Base Excess (Actual) VBG pH 7.45 H VBG pCO2 26 VBG pO2 46 VBG HCO3 18 L VBG O2 Saturation 81.0 VBG Base Excess -3.9 Sodium 137 Potassium 5.2 H Chloride 103 Carbon Dioxide 19 L Anion Gap 20 BUN 48 H Creatinine 2.13 H Estim Creat Clear Calc 22.5 Estimated GFR 23 POC Glucose 191 H Random Glucose 223 H Lactic Acid 3.5 H* Lactic Acid F/U @ 2Hr Lactic Acid F/U @ 4Hr Calcium 9.1 Phosphorus 5.2 H Magnesium 2.3 Total Bilirubin 0.8 AST 146 H ALT 78 H Alkaline Phosphatase 118 H Troponin I High Sens B-Natriuretic Peptide Total Protein 7.2 Albumin 3.8 08/30/24 08/30/24 08/30/24 21:11 21:27 21:35 WBC RBC Hgb Hct MCV MCH MCHC RDW Plt Count MPV Immature Gran % (Auto) Neut % (Auto) Lymph % (Auto) [place] % (Auto) Eos % (Auto) Baso % (Auto) Lymph # (Auto) [place] # (Auto) Eos # (Auto) Baso # (Auto) Abs Immat Gran (auto) Absolute Neuts (auto) Absolute Nucleated RBC Nucleated RBC % (auto) PT INR aPTT Heparin Protocol D-Dimer High Sensitivty O2 Saturation 93.0 ABG pH at Pt Temp 7.35 ABG pCO2 at Pt Temp 49 H ABG pO2 at Pt Temp 72 L ABG HCO3 27 H ABG Base Excess (Actual) 1.4 VBG pH VBG pCO2 VBG pO2 VBG HCO3 VBG O2 Saturation VBG Base Excess Sodium Potassium Chloride Carbon Dioxide Anion Gap BUN Creatinine Estim Creat Clear Calc Estimated GFR POC Glucose 181 H Random Glucose Lactic Acid Lactic Acid F/U @ 2Hr 4.2 H* Lactic Acid F/U @ 4Hr Calcium Phosphorus Magnesium Total Bilirubin AST ALT Alkaline Phosphatase Troponin I High Sens B-Natriuretic Peptide Total Protein Albumin 08/30/24 08/31/24 08/31/24 23:54 00:29 01:42 WBC 22.4 H RBC 3.54 L Hgb 10.1 L Hct 30.5 L MCV 86.2 MCH 28.5 MCHC 33.1 RDW 15.7 Plt Count 186 MPV 10.5 Immature Gran % (Auto) Neut % (Auto) Lymph % (Auto) [place] % (Auto) Eos % (Auto) Baso % (Auto) Lymph # (Auto) [place] # (Auto) Eos # (Auto) Baso # (Auto) Abs Immat Gran (auto) Absolute Neuts (auto) Absolute Nucleated RBC 0.000 Nucleated RBC % (auto) 0.0 PT 13.4 H INR 1.2 H aPTT Heparin Protocol 29.0 L D-Dimer High Sensitivty O2 Saturation ABG pH at Pt Temp ABG pCO2 at Pt Temp ABG pO2 at Pt Temp ABG HCO3 ABG Base Excess (Actual) VBG pH VBG pCO2 VBG pO2 VBG HCO3 VBG O2 Saturation VBG Base Excess Sodium 138 Potassium 4.7 Chloride 102 Carbon Dioxide 24 Anion Gap 17 BUN 53 H Creatinine 2.25 H Estim Creat Clear Calc 21.3 Estimated GFR 22 POC Glucose 167 H Random Glucose 167 H Lactic Acid Lactic Acid F/U @ 2Hr Lactic Acid F/U @ 4Hr 3.0 H* Calcium 8.8 Phosphorus 4.4 Magnesium 2.3 Total Bilirubin AST ALT Alkaline Phosphatase Troponin I High Sens 1554.0 H* D B-Natriuretic Peptide Total Protein Albumin 08/31/24 08/31/24 08/31/24 05:06 05:12 08:20 WBC 21.3 H RBC 3.52 L Hgb 10.2 L Hct 30.5 L MCV 86.6 MCH 29.0 MCHC 33.4 RDW 15.8 Plt Count 183 MPV 10.6 Immature Gran % (Auto) 1.1 H Neut % (Auto) 81.9 H Lymph % (Auto) 11.0 L [place] % (Auto) 5.5 Eos % (Auto) 0.3 Baso % (Auto) 0.2 Lymph # (Auto) 2.4 [place] # (Auto) 1.2 Eos # (Auto) 0.1 Baso # (Auto) 0.1 Abs Immat Gran (auto) 0.24 H Absolute Neuts (auto) 17.4 H Absolute Nucleated RBC 0.020 H Nucleated RBC % (auto) 0.1 PT INR aPTT Heparin Protocol 82.8 H D D-Dimer High Sensitivty O2 Saturation ABG pH at Pt Temp ABG pCO2 at Pt Temp ABG pO2 at Pt Temp ABG HCO3 ABG Base Excess (Actual) VBG pH 7.42 VBG pCO2 35 VBG pO2 37 VBG HCO3 23 VBG O2 Saturation 63.0 VBG Base Excess -0.9 Sodium 139 Potassium 4.4 Chloride 103 Carbon Dioxide 21 L Anion Gap 19 BUN 53 H Creatinine 2.22 H Estim Creat Clear Calc 21.7 Estimated GFR 22 POC Glucose Random Glucose 160 H Lactic Acid Lactic Acid F/U @ 2Hr Lactic Acid F/U @ 4Hr Calcium 8.7 Phosphorus 4.4 Magnesium 2.2 Total Bilirubin 0.7 AST 210 H ALT 132 H Alkaline Phosphatase 107 Troponin I High Sens 1963.0 H* B-Natriuretic Peptide 4048 H Total Protein 6.6 Albumin 3.4 L Procedures Date of Service Date of Service: 08/31/24 Assessment & Plan Assessment and plan (1) KEVIN (acute kidney injury): Status: Acute (2) Heart failure with recovered ejection fraction (HFrecEF): Status: Acute Plan KEVIN likely multifactorial; concurrent use of diuretics and daily NSAIDs at home likely contributory, in addition hemodynamic KEVIN from hypotension is likely a contributing factor. creatinine remains stable given no clinical signs of hypervolemia, recommend to hold diuretics for now; may diurese if clinically indicated. recommend avoiding NSAIDs and other nephrotoxins. continue close monitoring of I&O continue to monitor blood pressures and assess daily electrolyte and renal function studies Will continue to follow Discussed with Dr Dumont Time Spent With Patient Time: Total time managing care of this patient today ____ minutes. Progress Note: Quality Stroke Does the patient have a stroke diagnosis?: No
[2024-08-31 08:50] LABS: PTT Heparin Drip 82.8 SEC (53-77.9)
[2024-08-31 08:55] LABS: B Type Natriuretic Peptide 4048 pg/mL (<100)
[2024-08-31] MEDS: Albumin Human 25 % 100 ML IV ×2 (10:19→14:26)
[2024-08-31] MEDS: Chlorhexidine Gluc Oral Rinse 15 ML MOUTHWASH BUCCAL ×3 (10:19→20:38)
--- NOTE | 2024-08-31 10:35 | PM.PNCARD ---
Subjective Subjective Date of Service: 08/31/24 Interval history: Seen examined at bedside. She is sedated and ventilated currently. Apparently had hypoxic respiratory failure overnight and was intubated. Echocardiography reviewed showing severe enlargement of right ventricle with [id number] dysfunction and D shaped LV cavity. Severe pulmonary hypertension noted. On discussion with ICU team they are suspecting fat embolism. Physical Exam Vital Signs: Last Vital Signs Temp 101.7 F H 08/31/24 10:00 Pulse 128 H 08/31/24 10:00 Resp 18 08/31/24 10:00 BP 104/56 L 08/31/24 10:00 Pulse Ox 94 08/31/24 10:00 O2 Del Method Mechanical Ventilation 08/31/24 10:00 O2 Flow Rate 15 08/30/24 15:47 FiO2 95 08/31/24 10:00 Oxygen Flow Rate 4 08/29/24 15:29 BMI result Body Mass Index 23.1 GENERAL APPEARANCE: Sedated and ventilated. NECK: no carotid bruit, no obvious jugular venous distention. SKIN: no suspicious lesions, warm and dry. HEART: no murmurs, regular rate and rhythm. Tachycardic. LUNGS: Clear to auscultation anteriorly. ABDOMEN: soft, nontender. EXTREMITIES: no edema. PERIPHERAL PULSES: equal. NEUROLOGIC: Sedated and ventilated. Objective Labs and Meds 08/31/24 05:06 08/31/24 05:06 Lab results: Laboratory Results - last 24 hr 08/30/24 08/30/24 08/30/24 10:53 12:59 16:23 WBC RBC Hgb Hct MCV MCH MCHC RDW Plt Count MPV Immature Gran % (Auto) Neut % (Auto) Lymph % (Auto) [place] % (Auto) Eos % (Auto) Baso % (Auto) Lymph # (Auto) [place] # (Auto) Eos # (Auto) Baso # (Auto) Abs Immat Gran (auto) Absolute Neuts (auto) Absolute Nucleated RBC Nucleated RBC % (auto) PT INR aPTT Heparin Protocol D-Dimer High Sensitivty O2 Saturation ABG pH at Pt Temp ABG pCO2 at Pt Temp ABG pO2 at Pt Temp ABG HCO3 ABG Base Excess (Actual) VBG pH 7.38 VBG pCO2 51 VBG pO2 46 VBG HCO3 30 H VBG O2 Saturation 72.0 VBG Base Excess 4.3 Sodium Potassium Chloride Carbon Dioxide Anion Gap BUN Creatinine Estim Creat Clear Calc Estimated GFR POC Glucose 154 H 187 H Random Glucose Lactic Acid Lactic Acid F/U @ 2Hr Lactic Acid F/U @ 4Hr Calcium Phosphorus Magnesium Total Bilirubin AST ALT Alkaline Phosphatase Troponin I High Sens B-Natriuretic Peptide Total Protein Albumin 08/30/24 08/30/24 08/30/24 17:18 17:19 18:11 WBC 18.3 H RBC 3.49 L Hgb 10.1 L Hct 30.7 L MCV 88.0 MCH 28.9 MCHC 32.9 RDW 15.6 Plt Count 153 L MPV 10.3 Immature Gran % (Auto) Neut % (Auto) Lymph % (Auto) [place] % (Auto) Eos % (Auto) Baso % (Auto) Lymph # (Auto) [place] # (Auto) Eos # (Auto) Baso # (Auto) Abs Immat Gran (auto) Absolute Neuts (auto) Absolute Nucleated RBC 0.000 Nucleated RBC % (auto) 0.0 PT INR aPTT Heparin Protocol D-Dimer High Sensitivty 1053 O2 Saturation 50.0 ABG pH at Pt Temp 7.32 L ABG pCO2 at Pt Temp 39 ABG pO2 at Pt Temp 34 L* ABG HCO3 20 L ABG Base Excess (Actual) -5.0 VBG pH VBG pCO2 VBG pO2 VBG HCO3 VBG O2 Saturation VBG Base Excess Sodium 138 Potassium 5.0 Chloride 104 Carbon Dioxide 19 L Anion Gap 20 BUN 46 H Creatinine 2.29 H Estim Creat Clear Calc 21.0 Estimated GFR 22 POC Glucose 260 H Random Glucose 247 H Lactic Acid Lactic Acid F/U @ 2Hr Lactic Acid F/U @ 4Hr Calcium 8.8 Phosphorus Magnesium Total Bilirubin AST ALT Alkaline Phosphatase Troponin I High Sens 916.4 H* D B-Natriuretic Peptide 1652 H Total Protein Albumin 08/30/24 08/30/24 08/30/24 19:11 19:21 19:28 WBC RBC Hgb Hct MCV MCH MCHC RDW Plt Count MPV Immature Gran % (Auto) Neut % (Auto) Lymph % (Auto) [place] % (Auto) Eos % (Auto) Baso % (Auto) Lymph # (Auto) [place] # (Auto) Eos # (Auto) Baso # (Auto) Abs Immat Gran (auto) Absolute Neuts (auto) Absolute Nucleated RBC Nucleated RBC % (auto) PT INR aPTT Heparin Protocol D-Dimer High Sensitivty O2 Saturation ABG pH at Pt Temp ABG pCO2 at Pt Temp ABG pO2 at Pt Temp ABG HCO3 ABG Base Excess (Actual) VBG pH 7.45 H VBG pCO2 26 VBG pO2 46 VBG HCO3 18 L VBG O2 Saturation 81.0 VBG Base Excess -3.9 Sodium 137 Potassium 5.2 H Chloride 103 Carbon Dioxide 19 L Anion Gap 20 BUN 48 H Creatinine 2.13 H Estim Creat Clear Calc 22.5 Estimated GFR 23 POC Glucose 191 H Random Glucose 223 H Lactic Acid 3.5 H* Lactic Acid F/U @ 2Hr Lactic Acid F/U @ 4Hr Calcium 9.1 Phosphorus 5.2 H Magnesium 2.3 Total Bilirubin 0.8 AST 146 H ALT 78 H Alkaline Phosphatase 118 H Troponin I High Sens B-Natriuretic Peptide Total Protein 7.2 Albumin 3.8 08/30/24 08/30/24 08/30/24 21:11 21:27 21:35 WBC RBC Hgb Hct MCV MCH MCHC RDW Plt Count MPV Immature Gran % (Auto) Neut % (Auto) Lymph % (Auto) [place] % (Auto) Eos % (Auto) Baso % (Auto) Lymph # (Auto) [place] # (Auto) Eos # (Auto) Baso # (Auto) Abs Immat Gran (auto) Absolute Neuts (auto) Absolute Nucleated RBC Nucleated RBC % (auto) PT INR aPTT Heparin Protocol D-Dimer High Sensitivty O2 Saturation 93.0 ABG pH at Pt Temp 7.35 ABG pCO2 at Pt Temp 49 H ABG pO2 at Pt Temp 72 L ABG HCO3 27 H ABG Base Excess (Actual) 1.4 VBG pH VBG pCO2 VBG pO2 VBG HCO3 VBG O2 Saturation VBG Base Excess Sodium Potassium Chloride Carbon Dioxide Anion Gap BUN Creatinine Estim Creat Clear Calc Estimated GFR POC Glucose 181 H Random Glucose Lactic Acid Lactic Acid F/U @ 2Hr 4.2 H* Lactic Acid F/U @ 4Hr Calcium Phosphorus Magnesium Total Bilirubin AST ALT Alkaline Phosphatase Troponin I High Sens B-Natriuretic Peptide Total Protein Albumin 08/30/24 08/31/24 08/31/24 23:54 00:29 01:42 WBC 22.4 H RBC 3.54 L Hgb 10.1 L Hct 30.5 L MCV 86.2 MCH 28.5 MCHC 33.1 RDW 15.7 Plt Count 186 MPV 10.5 Immature Gran % (Auto) Neut % (Auto) Lymph % (Auto) [place] % (Auto) Eos % (Auto) Baso % (Auto) Lymph # (Auto) [place] # (Auto) Eos # (Auto) Baso # (Auto) Abs Immat Gran (auto) Absolute Neuts (auto) Absolute Nucleated RBC 0.000 Nucleated RBC % (auto) 0.0 PT 13.4 H INR 1.2 H aPTT Heparin Protocol 29.0 L D-Dimer High Sensitivty O2 Saturation ABG pH at Pt Temp ABG pCO2 at Pt Temp ABG pO2 at Pt Temp ABG HCO3 ABG Base Excess (Actual) VBG pH VBG pCO2 VBG pO2 VBG HCO3 VBG O2 Saturation VBG Base Excess Sodium 138 Potassium 4.7 Chloride 102 Carbon Dioxide 24 Anion Gap 17 BUN 53 H Creatinine 2.25 H Estim Creat Clear Calc 21.3 Estimated GFR 22 POC Glucose 167 H Random Glucose 167 H Lactic Acid Lactic Acid F/U @ 2Hr Lactic Acid F/U @ 4Hr 3.0 H* Calcium 8.8 Phosphorus 4.4 Magnesium 2.3 Total Bilirubin AST ALT Alkaline Phosphatase Troponin I High Sens 1554.0 H* D B-Natriuretic Peptide Total Protein Albumin 08/31/24 08/31/24 08/31/24 05:06 05:12 08:20 WBC 21.3 H RBC 3.52 L Hgb 10.2 L Hct 30.5 L MCV 86.6 MCH 29.0 MCHC 33.4 RDW 15.8 Plt Count 183 MPV 10.6 Immature Gran % (Auto) 1.1 H Neut % (Auto) 81.9 H Lymph % (Auto) 11.0 L [place] % (Auto) 5.5 Eos % (Auto) 0.3 Baso % (Auto) 0.2 Lymph # (Auto) 2.4 [place] # (Auto) 1.2 Eos # (Auto) 0.1 Baso # (Auto) 0.1 Abs Immat Gran (auto) 0.24 H Absolute Neuts (auto) 17.4 H Absolute Nucleated RBC 0.020 H Nucleated RBC % (auto) 0.1 PT INR aPTT Heparin Protocol 82.8 H D D-Dimer High Sensitivty O2 Saturation ABG pH at Pt Temp ABG pCO2 at Pt Temp ABG pO2 at Pt Temp ABG HCO3 ABG Base Excess (Actual) VBG pH 7.42 VBG pCO2 35 VBG pO2 37 VBG HCO3 23 VBG O2 Saturation 63.0 VBG Base Excess -0.9 Sodium 139 Potassium 4.4 Chloride 103 Carbon Dioxide 21 L Anion Gap 19 BUN 53 H Creatinine 2.22 H Estim Creat Clear Calc 21.7 Estimated GFR 22 POC Glucose Random Glucose 160 H Lactic Acid Lactic Acid F/U @ 2Hr Lactic Acid F/U @ 4Hr Calcium 8.7 Phosphorus 4.4 Magnesium 2.2 Total Bilirubin 0.7 AST 210 H ALT 132 H Alkaline Phosphatase 107 Troponin I High Sens 1963.0 H* B-Natriuretic Peptide 4048 H Total Protein 6.6 Albumin 3.4 L Progress Note: A&P Assessment and plan (1) Respiratory failure: Status: Acute (2) NSTEMI (non-ST elevated myocardial infarction): Status: Acute Plan [age] year female who presented with mechanical fall and right femoral fracture and developed progressive hypoxia leading to intubation. Given long bone fracture, there is concern about fat embolism as potential reason for hypoxia. She has significant RV dysfunction with severe pulmonary hypertension on echo. She had CT pulmonary angiogram last evening which ruled out PE. She has right bundle-branch block which is new and tachycardia. If in fact this is fat embolism syndrome, the care is supportive in that case. She has elevated troponin level and I think this is a type 2 injury in the setting of hypoxia. She has a long bone fracture and treatment will depend on overall recovery from respiratory status. On pressors currently. We will continue to follow along with you. I think the right ventricular dysfunction is a byproduct of hypoxia and increase in RV afterload from embolic phenomenon. Thank you for allowing me to participate in the care of your patient. Please feel free to contact me if you have any questions. Time Spent With Patient Time: Total time managing care of this patient today ____ minutes. Progress Note: Quality Stroke Does the patient have a stroke diagnosis?: No Procedures Date of Service Date of Service: 08/31/24
--- NOTE | 2024-08-31 11:20 | PM.CCPN ---
Subjective Subjective Date of Service: 08/31/24 Interval History: 64-year-old lady with underlying systolic heart failure, COPD on 4 L, pulmonary hypertension, diabetes mellitus, hypertension, hyperlipidemia admitted on 08/29/2024 after mechanical fall with resultant right hip fracture. Patient admitted to telemetry so within evaluated by orthopedic service with plans for operative repair. Hospital course significant for progressive hypoxemia requiring CPAP/non-rebreather with development of respiratory distress on 08/30/2024 requiring intubation on telemetry saba and transferred to the intensive care unit. CT angio chest with no evidence of pulmonary emboli, but stigmata of pulmonary hypertension. Patient requiring maximum ventilatory support, also with development of shock and NSTEMI. No events overnight. Critical Care Time (minutes): 60 Physical Exam Vital Signs: Vital Signs: Last Vital Signs Temp 100.8 F H 08/31/24 11:00 Pulse 116 H 08/31/24 11:00 Resp 18 08/31/24 11:00 BP 116/71 08/31/24 11:00 Pulse Ox 95 08/31/24 11:00 O2 Del Method Mechanical Ventil ation 08/31/24 11:00 O2 Flow Rate 15 08/30/24 15:47 FiO2 95 08/31/24 11:13 Oxygen Flow Rate 4 08/29/24 15:29 BMI result Body Mass Index 23.1 Const: General: no acute distress and other (Sedated on ventilatory support) Eyes: Sclerae: sclerae normal EOM: EOMs intact bilaterally Neck: Neck: Yes no lymphadenopathy, Yes trachea midline and Yes supple Resp: Auscultation: crackles (Diffuse bilateral) Cardio: Rate: tachycardic Rhythm: regular rhythm Heart sounds: no gallops, no murmurs and no rubs GI: Palpation (GI): Soft to palpation and Other GI palpation findings present ( Nontender) Auscultation: normal bowel sounds Extrem: General: Yes no pedal edema, No clubbing and No cyanosis Objective Data Labs 08/31/24 05:06 08/31/24 05:06 Labs: Laboratory Results - last 24 hr 08/30/24 08/30/24 08/30/24 12:59 16:23 17:18 WBC RBC Hgb Hct MCV MCH MCHC RDW Plt Count MPV Immature Gran % (Auto) Neut % (Auto) Lymph % (Auto) [place] % (Auto) Eos % (Auto) Baso % (Auto) Lymph # (Auto) [place] # (Auto) Eos # (Auto) Baso # (Auto) Abs Immat Gran (auto) Absolute Neuts (auto) Absolute Nucleated RBC Nucleated RBC % (auto) PT INR aPTT Heparin Protocol D-Dimer High Sensitivty O2 Saturation 50.0 ABG pH at Pt Temp 7.32 L ABG pCO2 at Pt Temp 39 ABG pO2 at Pt Temp 34 L* ABG HCO3 20 L ABG Base Excess (Actual) -5.0 VBG pH 7.38 VBG pCO2 51 VBG pO2 46 VBG HCO3 30 H VBG O2 Saturation 72.0 VBG Base Excess 4.3 Sodium Potassium Chloride Carbon Dioxide Anion Gap BUN Creatinine Estim Creat Clear Calc Estimated GFR POC Glucose 187 H Random Glucose Lactic Acid Lactic Acid F/U @ 2Hr Lactic Acid F/U @ 4Hr Calcium Phosphorus Magnesium Total Bilirubin AST ALT Alkaline Phosphatase Troponin I High Sens B-Natriuretic Peptide Total Protein Albumin 08/30/24 08/30/24 08/30/24 17:19 18:11 19:11 WBC 18.3 H RBC 3.49 L Hgb 10.1 L Hct 30.7 L MCV 88.0 MCH 28.9 MCHC 32.9 RDW 15.6 Plt Count 153 L MPV 10.3 Immature Gran % (Auto) Neut % (Auto) Lymph % (Auto) [place] % (Auto) Eos % (Auto) Baso % (Auto) Lymph # (Auto) [place] # (Auto) Eos # (Auto) Baso # (Auto) Abs Immat Gran (auto) Absolute Neuts (auto) Absolute Nucleated RBC 0.000 Nucleated RBC % (auto) 0.0 PT INR aPTT Heparin Protocol D-Dimer High Sensitivty 1053 O2 Saturation ABG pH at Pt Temp ABG pCO2 at Pt Temp ABG pO2 at Pt Temp ABG HCO3 ABG Base Excess (Actual) VBG pH VBG pCO2 VBG pO2 VBG HCO3 VBG O2 Saturation VBG Base Excess Sodium 138 Potassium 5.0 Chloride 104 Carbon Dioxide 19 L Anion Gap 20 BUN 46 H Creatinine 2.29 H Estim Creat Clear Calc 21.0 Estimated GFR 22 POC Glucose 260 H 191 H Random Glucose 247 H Lactic Acid Lactic Acid F/U @ 2Hr Lactic Acid F/U @ 4Hr Calcium 8.8 Phosphorus Magnesium Total Bilirubin AST ALT Alkaline Phosphatase Troponin I High Sens 916.4 H* D B-Natriuretic Peptide 1652 H Total Protein Albumin 08/30/24 08/30/24 08/30/24 19:21 19:28 21:11 WBC RBC Hgb Hct MCV MCH MCHC RDW Plt Count MPV Immature Gran % (Auto) Neut % (Auto) Lymph % (Auto) [place] % (Auto) Eos % (Auto) Baso % (Auto) Lymph # (Auto) [place] # (Auto) Eos # (Auto) Baso # (Auto) Abs Immat Gran (auto) Absolute Neuts (auto) Absolute Nucleated RBC Nucleated RBC % (auto) PT INR aPTT Heparin Protocol D-Dimer High Sensitivty O2 Saturation ABG pH at Pt Temp ABG pCO2 at Pt Temp ABG pO2 at Pt Temp ABG HCO3 ABG Base Excess (Actual) VBG pH 7.45 H VBG pCO2 26 VBG pO2 46 VBG HCO3 18 L VBG O2 Saturation 81.0 VBG Base Excess -3.9 Sodium 137 Potassium 5.2 H Chloride 103 Carbon Dioxide 19 L Anion Gap 20 BUN 48 H Creatinine 2.13 H Estim Creat Clear Calc 22.5 Estimated GFR 23 POC Glucose 181 H Random Glucose 223 H Lactic Acid 3.5 H* Lactic Acid F/U @ 2Hr Lactic Acid F/U @ 4Hr Calcium 9.1 Phosphorus 5.2 H Magnesium 2.3 Total Bilirubin 0.8 AST 146 H ALT 78 H Alkaline Phosphatase 118 H Troponin I High Sens B-Natriuretic Peptide Total Protein 7.2 Albumin 3.8 08/30/24 08/30/24 08/30/24 21:27 21:35 23:54 WBC RBC Hgb Hct MCV MCH MCHC RDW Plt Count MPV Immature Gran % (Auto) Neut % (Auto) Lymph % (Auto) [place] % (Auto) Eos % (Auto) Baso % (Auto) Lymph # (Auto) [place] # (Auto) Eos # (Auto) Baso # (Auto) Abs Immat Gran (auto) Absolute Neuts (auto) Absolute Nucleated RBC Nucleated RBC % (auto) PT INR aPTT Heparin Protocol D-Dimer High Sensitivty O2 Saturation 93.0 ABG pH at Pt Temp 7.35 ABG pCO2 at Pt Temp 49 H ABG pO2 at Pt Temp 72 L ABG HCO3 27 H ABG Base Excess (Actual) 1.4 VBG pH VBG pCO2 VBG pO2 VBG HCO3 VBG O2 Saturation VBG Base Excess Sodium Potassium Chloride Carbon Dioxide Anion Gap BUN Creatinine Estim Creat Clear Calc Estimated GFR POC Glucose Random Glucose Lactic Acid Lactic Acid F/U @ 2Hr 4.2 H* Lactic Acid F/U @ 4Hr 3.0 H* Calcium Phosphorus Magnesium Total Bilirubin AST ALT Alkaline Phosphatase Troponin I High Sens 1554.0 H* D B-Natriuretic Peptide Total Protein Albumin 08/31/24 08/31/24 08/31/24 00:29 01:42 05:06 WBC 22.4 H 21.3 H RBC 3.54 L 3.52 L Hgb 10.1 L 10.2 L Hct 30.5 L 30.5 L MCV 86.2 86.6 MCH 28.5 29.0 MCHC 33.1 33.4 RDW 15.7 15.8 Plt Count 186 183 MPV 10.5 10.6 Immature Gran % (Auto) 1.1 H Neut % (Auto) 81.9 H Lymph % (Auto) 11.0 L [place] % (Auto) 5.5 Eos % (Auto) 0.3 Baso % (Auto) 0.2 Lymph # (Auto) 2.4 [place] # (Auto) 1.2 Eos # (Auto) 0.1 Baso # (Auto) 0.1 Abs Immat Gran (auto) 0.24 H Absolute Neuts (auto) 17.4 H Absolute Nucleated RBC 0.000 0.020 H Nucleated RBC % (auto) 0.0 0.1 PT 13.4 H INR 1.2 H aPTT Heparin Protocol 29.0 L D-Dimer High Sensitivty O2 Saturation ABG pH at Pt Temp ABG pCO2 at Pt Temp ABG pO2 at Pt Temp ABG HCO3 ABG Base Excess (Actual) VBG pH VBG pCO2 VBG pO2 VBG HCO3 VBG O2 Saturation VBG Base Excess Sodium 138 139 Potassium 4.7 4.4 Chloride 102 103 Carbon Dioxide 24 21 L Anion Gap 17 19 BUN 53 H 53 H Creatinine 2.25 H 2.22 H Estim Creat Clear Calc 21.3 21.7 Estimated GFR 22 22 POC Glucose 167 H Random Glucose 167 H 160 H Lactic Acid Lactic Acid F/U @ 2Hr Lactic Acid F/U @ 4Hr Calcium 8.8 8.7 Phosphorus 4.4 4.4 Magnesium 2.3 2.2 Total Bilirubin 0.7 AST 210 H ALT 132 H Alkaline Phosphatase 107 Troponin I High Sens B-Natriuretic Peptide Total Protein 6.6 Albumin 3.4 L 08/31/24 08/31/24 05:12 08:20 WBC RBC Hgb Hct MCV MCH MCHC RDW Plt Count MPV Immature Gran % (Auto) Neut % (Auto) Lymph % (Auto) [place] % (Auto) Eos % (Auto) Baso % (Auto) Lymph # (Auto) [place] # (Auto) Eos # (Auto) Baso # (Auto) Abs Immat Gran (auto) Absolute Neuts (auto) Absolute Nucleated RBC Nucleated RBC % (auto) PT INR aPTT Heparin Protocol 82.8 H D D-Dimer High Sensitivty O2 Saturation ABG pH at Pt Temp ABG pCO2 at Pt Temp ABG pO2 at Pt Temp ABG HCO3 ABG Base Excess (Actual) VBG pH 7.42 VBG pCO2 35 VBG pO2 37 VBG HCO3 23 VBG O2 Saturation 63.0 VBG Base Excess -0.9 Sodium Potassium Chloride Carbon Dioxide Anion Gap BUN Creatinine Estim Creat Clear Calc Estimated GFR POC Glucose Random Glucose Lactic Acid Lactic Acid F/U @ 2Hr Lactic Acid F/U @ 4Hr Calcium Phosphorus Magnesium Total Bilirubin AST ALT Alkaline Phosphatase Troponin I High Sens 1963.0 H* B-Natriuretic Peptide 4048 H Total Protein Albumin Progress Note: A&P Assessment and plan (1) Fat embolism: Status: Acute (2) Pulmonary aspiration: Status: Acute (3) NSTEMI (non-ST elevated myocardial infarction): Status: Acute (4) CHF (congestive heart failure): Status: Acute (5) Shock: Status: Acute (6) Type 2 diabetes mellitus, without long-term current use of insulin: Status: Acute (7) KEVIN (acute kidney injury): Status: Acute (8) Severe chronic obstructive pulmonary disease: Status: Acute Plan Assessment: 64-year-old lady admitted with mechanical fall resulting in right hip fracture complicated by acute hypoxic respiratory failure likely secondary to fat embolism requiring intubation and ventilatory support, also further complicated by pulmonary aspiration, shock, KEVIN, and NSTEMI Plan: Neuro: No acute issues. Cardiac: Shock, undifferentiated, continue to titrate off pressor support as tolerated. 2D echocardiogram is pending. Cardiology service care appreciated. Continue heparin drip. Pulmonary: Acute hypoxic respiratory failure likely secondary to combination asthma and pulmonary aspiration now requiring maximum ventilatory support. Continue to titrate off as tolerated. CT angio chest with no evidence of pulmonary emboli. Renal: Acute kidney injury likely secondary from ATN. Non oliguric. Continue to monitor renal indices and urine output. Endo: No acute issues. GI: No acute issues. ID: Empiric coverage for pulmonary aspiration. Heme/Onc: No acute issues. Psych: No acute issues. Miscellaneous: Right hip fracture. Orthopedic surgery service care appreciated. Initially planned for OR repair, now on hold. Prophylaxis: Heparin drip, ppi Diet: Tube feeds Critical care time spent: 60 minutes Quality Stroke Does the patient have a stroke diagnosis?: No VTE Prior VTE?: No VTE Risk Level:: Medical - moderate - high VTE Device Contraindication: N/A - Device Ordered VTE Drug Contraindication: Treatment Not Indicated
[2024-08-31 11:21] LABS: Glucose, Whole Blood 110 mg/dL (60-115)
--- NOTE | 2024-08-31 11:50 | MHC.CLN ---
CONSULT PT IS INTUBATED AND SEDATED DISCUSSED AT ROUNDS WITH PT IS CURRENTLY NPO IF TF NEEDED; RECOMMEND GLUCERNA AT 45ML/HR TO PROVIDE 1080KCALS (1561KCALS WITH SEDATION; 28KCALS/KG), 45G PROTEIN (.8G/KG), 921ML FREE WATER FROM FORMULA MONITOR TOLERANCE AND LYTES FOLLOWING FOR DIET ADVANCEMENT SEE FULL CLINICAL NUTRITION ASSESSMENT
[2024-08-31] MEDS: Norepinephrine Bitartrate/NS 16 MG/250 ML PLAST..BAG 32.44 MG IVCONT (12:01)
--- NOTE | 2024-08-31 13:38 | W.PM.CCHP ---
Procedures Date of Service Date of Service: 08/31/24 Central Line Placement Left IJ: Central Line Comments: Patient requiring high amount of vasopressor support, requiring emergent central line. Left TLC placed under sterile procedure. TLC placement confimred with chest xray Consent for Procedure: Emergent-no informed consent obtained Time out performed: Yes Sterile Technique Used: Yes Patient placed on monitor/pulse ox: Yes MD prep: mask, gown and gloves Central line prep: Chlorhexidine scrub Local anesthesia used: other anesthetic (on propofol for vent sedation) Ultrasound used for placement: Yes Central line lumen inserted: triple Post procedure: sutured in place, good blood return, all ports aspirated, flushed, capped and sterile dressing applied Post procedure x-ray: tip of catheter in good position and no pneumothorax seen Patient tolerated procedure: well Complications: none
--- NOTE | 2024-08-31 14:37 | MHC.CM.PN ---
Pt is intubated and unable to participate in CM assessment: Call placed to pt's HCP/FINANCE EXECUTIVE Chanelle who states pt resides alone, has [facility] home O2 and FINANCE EXECUTIVE care daily. Chanelle assists w/transportation. Pt has a glucometer and walker. Pt sustained a femur fx that will require surgical intervention when she is clinically stable. Chanelle is aware that pt will likely require STR following hospital d/c. Received call from FERDINAND Tom at [facility] program where pt is a member. He states pt has access to all home skilled disciplines as well as STR at the [facility], [facility], [facility] and the [facility] He can be reached at [phone] with updates. HCP on file and verified w/Chanelle. D/C Plan: STR VIA BLS
[2024-08-31 15:37] LABS: Glucose, Whole Blood 50 mg/dL (60-115)
[2024-08-31] MEDS: Dextrose 10 % 1,000 ML 50 ML IVCONT (15:57)
[2024-08-31 16:30] LABS: Glucose, Whole Blood 51 mg/dL (60-115)
[2024-08-31 17:02] LABS: Glucose, Whole Blood 53 mg/dL (60-115)
[2024-08-31] MEDS: Dextrose 50 % 25 GM/50 ML SYRINGE IVPUSH (17:55)
[2024-08-31 18:22] LABS: Glucose, Whole Blood 123 mg/dL (60-115)
[2024-08-31 18:48] LABS: PTT Heparin Drip 136.1 SEC (53-77.9)
[2024-08-31 18:56] LABS: Glucose, Whole Blood 100 mg/dL (60-115)
[2024-08-31 19:28] LABS: Glucose, Whole Blood 126 mg/dL (60-115)
[2024-08-31 19:30] LABS: PTT Heparin Drip 88.8 SEC (53-77.9)
[2024-08-31] MEDS: fentaNYL citrate/PF 100 MCG/2 ML VIAL 50 MCG IVPUSH (19:42)
--- NOTE | 2024-08-31 20:02 | PC.NURSE ---
assumed care of patient 0700 on 08/31/24. patient on ventilator ACVC settings (see vent assessment) sedated, on Vasopressin and Levophed (see MAR and Titrations). on initial assessment paient was tachypnic on ventilator, sedation adjusted for vent synchrony (per MAR). patient was more synchronous with vent until approx 13:00, RT called, settings changed to PSV, tolerated spontaneous settings well. at time of handoff patient appeared slightly more labored in breathing, RR of 21-25 and some belly breathing noted, spontaneous volumes between 400-600. material handler 2nd shift RN made aware of patient breathing in report done at the bedside. suctioned PRN throughout day. also during shift today, patient had critical hypoglycemic event. POC was 50 and MD made aware. D10 infusion started per MD at 50cc/hr. Next POCs were all mid 50s after approx 1hr of D10 gtt so MD made aware and infusion rate adjusted per MD. also given 1 amp D50 25G per MAR. also during shift today, patient had high PTT-HD in late morning. Protocol followed and heparin gtt decreased. in early afternoon patient PTT-hd continued to climb and was critical at 185. Protocol followed and MD made aware.
[2024-08-31] MEDS: Norepinephrine Bitartrate/NS 16 MG/250 ML PLAST..BAG 30.16 MG IVCONT (20:27)
[2024-08-31] MEDS: Montelukast Sodium 10 MG TABLET PO (20:38)
[2024-08-31 20:39] LABS: MANUAL DIFF FLAG NO
[2024-08-31 20:41] LABS: Basophils Percent Auto 0.2 % (0-2); Imm Gran Abs Auto 0.07 X10*3/uL (0.00-0.03); Imm Gran Pct Auto 0.4 % (0.0-0.4); Lymphocytes Absolute Auto 1.7 X10*3/uL (1.2-4.9); Lymphocytes Percent Auto 9.8 % (20-40); Mean Corpuscular HGB Conc 33.3 g/dl (31.0-35.0); Mean Corpuscular Volume 89.9 fL (80.0-98.0); Mean Platelet Volume 10.4 fL (9.4-12.3); Monocytes Absolute Auto 0.7 X10*3/uL (0.1-1.2); Monocytes Percent Auto 3.9 % (2-11); NRBC Pct Auto 0.1 /100WBC (0.0-0.2); Neutrophils Absolute Auto 14.4 x10*3/uL (2.0-8.3); Neutrophils Percent Auto 85.7 % (45-73); Platelet Count 119 X10*3/uL (160-400); Red Blood Count 2.27 X10*6/uL (4.20-5.50); Red Cell Distribution Width 15.8 % (11.0-16.0); White Blood Count 16.8 X10*3/uL (4.8-10.8)
[2024-08-31 20:46] LABS: VBG Base Excess -10.9 mmol/L; VBG HCO3 14 mmol/L (22-26); VBG pCO2 30 mmHg; VBG pH 7.28 (7.32-7.43); VBG pO2 44 mmHg
[2024-08-31 20:46] LABS: Venous Blood Gas Refer to POC result
[2024-08-31 20:47] LABS: Hemoglobin 6.8 g/dl (12.0-16.0)
[2024-08-31 20:48] LABS: Hematocrit 20.4 % (37.0-47.0)
--- NOTE | 2024-08-31 20:56 | PM.EVENT ---
Documented by User: Pancho Alaniz NP 08/31/24 20:58 Event Note Date of Service: 08/31/24 Event Note: Patient hemoglobin/hematocrit dropped to 6.8/20.4 on heparin drip. Will stop heparin drip, blood consent obtained over the phone with healthcare proxy Chanelle. 1 unit pRBC ordered Time Spent With Patient Time: Total time managing care of this patient today ____ minutes. Documented by User: José Miguel Beckford MD 09/01/24 10:49 Event Note Date of Service: 09/01/24
[2024-08-31] MEDS: Sodium Bicarbonate 8.4% 50 MEQ/50 ML SYRINGE IVPUSH (21:19)
[2024-08-31 21:36] LABS: Anion Gap 22 (12-20); Blood Urea Nitrogen 61 mg/dL (9-16); Calcium 7.9 mg/dL (8.4-10.2); Carbon Dioxide 15 mmol/L (22-29); Chloride 104 mmol/L (96-108); Creatinine Clr Calc Pharmacy 16.3; Estimated Glomerular Filt Rate 18; Glucose Random 358 mg/dL (60-115); Magnesium 2.3 mg/dL (1.6-2.6); Phosphorus 6.3 mg/dL (2.7-4.5); Potassium 4.3 mmol/L (3.3-5.1); Sodium 137 mmol/L (135-145)
[2024-08-31 21:44] LABS: Glucose, Whole Blood 154 mg/dL (60-115)
[2024-08-31] MEDS: Calcium Chloride 1 GM/10 ML SYRINGE IVPUSH (21:51)
[2024-08-31] MEDS: Cisatracurium Besylate 20 MG/10 ML VIAL IVPUSH (22:04)
[2024-08-31] MEDS: Sodium Bicarbonate 8.4% 150 MEQ in Dextrose 5 % 850 ML 100 MEQ IV (22:06)
[2024-08-31] MEDS: Insulin Regular, Human 100 UNIT/ML 10 ML VIAL 10 UNIT IVPUSH (22:15)
[2024-08-31 23:36] LABS: Glucose, Whole Blood > 600 mg/dL (60-115)
[2024-08-31 23:36] LABS: Glucose, Whole Blood 155 mg/dL (60-115)
[2024-09-01] VITALS (48 sets, daily range): BP systolic 72–134; BP diastolic 32–84; PULSE 111–130; RESP 17–27; TEMP 34.9–38.4; O2SAT 81–96; BMI 24.3
[2024-09-01 00:13] LABS: MANUAL DIFF FLAG NO
[2024-09-01 00:15] LABS: Basophils Percent Auto 0.1 % (0-2); Eosinophils Percent Auto 0.1 % (0-4); Hematocrit 25.5 % (37.0-47.0); Hemoglobin 8.5 g/dl (12.0-16.0); Imm Gran Pct Auto 0.6 % (0.0-0.4); Lymphocytes Absolute Auto 1.5 X10*3/uL (1.2-4.9); Lymphocytes Percent Auto 8.6 % (20-40); Mean Corpuscular HGB Conc 33.3 g/dl (31.0-35.0); Mean Corpuscular Hemoglobin 28.5 pg (27.0-33.0); Mean Corpuscular Volume 85.6 fL (80.0-98.0); Mean Platelet Volume 11.1 fL (9.4-12.3); Monocytes Percent Auto 5.8 % (2-11); NRBC Pct Auto 0.2 /100WBC (0.0-0.2); Neutrophils Percent Auto 84.8 % (45-73); Platelet Count 102 X10*3/uL (160-400); Red Blood Count 2.98 X10*6/uL (4.20-5.50); Red Cell Distribution Width 15.1 % (11.0-16.0); White Blood Count 17.6 X10*3/uL (4.8-10.8)
[2024-09-01 00:39] LABS: Anion Gap 19 (12-20); Blood Urea Nitrogen 59 mg/dL (9-16); Calcium 9.1 mg/dL (8.4-10.2); Carbon Dioxide 20 mmol/L (22-29); Chloride 106 mmol/L (96-108); Estimated Glomerular Filt Rate 22; Glucose Random 152 mg/dL (60-115); Magnesium 2.2 mg/dL (1.6-2.6); Phosphorus 6.2 mg/dL (2.7-4.5); Potassium 3.7 mmol/L (3.3-5.1); Sodium 141 mmol/L (135-145)
[2024-09-01] MEDS: fentaNYL citrate/PF 100 MCG/2 ML VIAL IVPUSH (01:34)
[2024-09-01 01:55] LABS: Glucose, Whole Blood 115 mg/dL (60-115)
[2024-09-01] MEDS: fentaNYL citrate/NS 1,000 MCG/100 ML PLAST..BAG 2.5 MCG IVCONT (01:58)
[2024-09-01] MEDS: Norepinephrine Bitartrate/NS 16 MG/250 ML PLAST..BAG 34.14 MG IVCONT (03:56)
[2024-09-01 04:17] LABS: Glucose, Whole Blood 132 mg/dL (60-115)
[2024-09-01] MEDS: propofoL 1,000 MG/100 ML VIAL 18.21 MG IVCONT ×5 (04:42→22:23)
[2024-09-01] MEDS: Vasopressin 20 UNIT/100 ML INFUS..BTL 12 UNIT IVCONT ×3 (04:44→20:36)
[2024-09-01 05:12] LABS: VBG Base Excess -0.7 mmol/L; VBG HCO3 26 mmol/L (22-26); VBG pCO2 53 mmHg; VBG pH 7.29 (7.32-7.43); VBG pO2 39 mmHg
[2024-09-01 05:28] LABS: MANUAL DIFF FLAG NO
[2024-09-01] MEDS: Pantoprazole Sodium 40 MG/10 ML VIAL IVPUSH (05:30)
[2024-09-01 05:31] LABS: Basophils Percent Auto 0.3 % (0-2); Eosinophils Percent Auto 0.1 % (0-4); Hematocrit 26.1 % (37.0-47.0); Hemoglobin 8.5 g/dl (12.0-16.0); Imm Gran Abs Auto 0.16 X10*3/uL (0.00-0.03); Lymphocytes Absolute Auto 1.5 X10*3/uL (1.2-4.9); Lymphocytes Percent Auto 9.6 % (20-40); Mean Corpuscular HGB Conc 32.6 g/dl (31.0-35.0); Mean Corpuscular Hemoglobin 28.2 pg (27.0-33.0); Mean Corpuscular Volume 86.7 fL (80.0-98.0); Mean Platelet Volume 11.2 fL (9.4-12.3); Monocytes Absolute Auto 0.8 X10*3/uL (0.1-1.2); Monocytes Percent Auto 5.2 % (2-11); NRBC Pct Auto 0.4 /100WBC (0.0-0.2); Neutrophils Absolute Auto 13.4 x10*3/uL (2.0-8.3); Neutrophils Percent Auto 83.8 % (45-73); Platelet Count 110 X10*3/uL (160-400); Red Blood Count 3.01 X10*6/uL (4.20-5.50); Red Cell Distribution Width 15.8 % (11.0-16.0); White Blood Count 15.9 X10*3/uL (4.8-10.8)
[2024-09-01 05:43] LABS: INTERNATIONAL NORM RATIO 2.3 (0.9-1.1); Prothrombin Time 26.6 SEC (10.9-12.4)
--- NOTE | 2024-09-01 05:49 | PC.NURSE ---
Assumed care at 1900. Patient intubated and sedated. Propofol gtt running per JUL, RASS -3/-4. ST on tele, HR 100s-130s. Vaso and 2x concentrated?Levo running per JUL for MAP goal > 65. Heparin gtt paused upon initial assessment, restarted per JUL for new PTTHD, and paused/held again per COLE Alaniz for critical H&H. 1 unit RBCs ordered and infused per TAR without issue. Pulses obtained via doppler. Patient continues on mechanical ventilation, often breath stacking and belly breathing, COLE Alaniz and RT Rebecca aware. Vent settings adjusted, and 1 time dose 20mg nimbex administered per JUL for vent synchrony with good effect. Due to persistent asynchrony and WOB, fentanyl gtt started per JUL. Lung sounds clear, slightly diminished?bases. Abdomen soft and round, OGT clamped. Castle catheter in place and patent, draining cloudy urine with sediment, OUP approx 20-40mL/hr. Skin overall intact, though pale and extremities cool to the touch. Diffuse bruising to extremities POA. Tmax 100.4, cooling blanket in place. COLE Alaniz aware of all critical lab values and changes in patient status. Patient's HCP updated via phone by this RN and COLE Alaniz, patient's son at bedside. Bed locked in lowest position, soft restraints in place, bed alarm on.
[2024-09-01 06:01] LABS: Albumin Level 3.2 g/dL (3.5-5.0); Alkaline Phosphatase 89 U/L (39-117); Anion Gap 20 (12-20); Bilirubin Total 1.2 mg/dL (0.0-1.0); Blood Urea Nitrogen 60 mg/dL (9-16); Calcium 8.4 mg/dL (8.4-10.2); Carbon Dioxide 22 mmol/L (22-29); Chloride 102 mmol/L (96-108); Creatinine Clr Calc Pharmacy 19.7; Estimated Glomerular Filt Rate 20; Glucose Random 152 mg/dL (60-115); Magnesium 2.4 mg/dL (1.6-2.6); Phosphorus 7.6 mg/dL (2.7-4.5); Potassium 4.7 mmol/L (3.3-5.1); Sodium 139 mmol/L (135-145); Total Protein 5.4 g/dL (6.5-8.0)
[2024-09-01 06:07] LABS: Venous Blood Gas Refer to POC result
[2024-09-01 06:17] LABS: Alanine Aminotransferase 2491 U/L (0-31)
[2024-09-01 06:27] LABS: Aspartate Amino Transferase 3410 U/L (5-31)
[2024-09-01 07:32] LABS: Glucose, Whole Blood 121 mg/dL (60-115)
[2024-09-01] MEDS: 0.9 % Sodium Chloride Flush 3 ML SYRINGE IVFLUSH ×3 (07:35→21:32)
[2024-09-01] MEDS: Albumin Human 25 % 100 ML IV ×2 (07:35→14:01)
[2024-09-01] MEDS: Sodium Bicarbonate 8.4% 150 MEQ in Dextrose 5 % 850 ML 100 MEQ IV ×2 (07:53→17:18)
[2024-09-01] MEDS: predniSONE 5 MG TABLET PO (08:06)
[2024-09-01] MEDS: Sertraline HCL 100 MG TABLET 200 MG PO (08:06)
[2024-09-01] MEDS: Chlorhexidine Gluc Oral Rinse 15 ML MOUTHWASH BUCCAL ×3 (08:06→20:33)
[2024-09-01] MEDS: Folic Acid 1 MG TABLET PO (08:06)
[2024-09-01] MEDS: Atorvastatin Calcium 10 MG TABLET PO (08:06)
--- NOTE | 2024-09-01 08:25 | P.PNNP_ITS ---
Subjective Subjective Date of Service: 09/01/24 Interval history: Patient is a 64 y/o female with a medical history of HFrEF, COPD on 4L home O2, pulmonary HTN, DMII, HTN, HLD, history of SVT, cigarette use who presented 08/29 with right hip pain after a fall at home. On admission creatinine 2.34, previously 1.03 in June. 08/30 is 2.25. Blood pressures low on admission (95/71). transferred to ICU on evening of 08/30 due to hypoxic respiratory failure and shock requiring vasopressor support. Nephrology consulted for KEVIN. home furosemide and spironolactone were held since admission due to KEVIN on presentation. reportedly taking daily nsaid at home for pain- primarily headaches creatinine has remained fairly stable since admission. Creatinine 2.34 08/29, 1.29 08/30, 2.22 08/31, 09/01 is 2.39. electrolytes are unremarkable she is making urine, though output has been trending down. Patient is intubated and sedated at bedside. fio2 requirements have remained with foi2 at 90%; diuresis was trialed without improvement in respiratory status. Patient is tachycardic with hypotension requiring support with multiple vasopressors. Physical Exam 2 Vital Signs: Vital Signs: Last Vital Signs Temp 100.9 F H 09/01/24 12:00 Pulse 119 H 09/01/24 12:33 Resp 24 H 09/01/24 12:00 BP 100/56 L 09/01/24 12:33 Pulse Ox 86 L 09/01/24 12:00 O2 Del Method Mechanical Ventil ation 09/01/24 12:00 O2 Flow Rate 15 08/30/24 15:47 FiO2 100 09/01/24 12:00 Oxygen Flow Rate 4 08/29/24 15:29 BMI result Body Mass Index 24.3 Const: General: other (intubated, sedated. ) Neck: Neck: Yes no JVD Resp: Effort & Inspection: other (mechanical ventilation) Auscultation: w heezes Cardio: Rate: regular rate Rhythm: regular rhythm Heart sounds: S1 normal heart sound present and S2 normal heart sound present GI: Palpation (GI): Soft to palpation and nontender Neuro: Other: sedated; no tremor noted. Extrem: General: No edema Objective Data Labs 09/01/24 05:02 09/01/24 05:02 Labs: Laboratory Results - last 24 hr 08/31/24 08/31/24 08/31/24 15:33 16:26 16:38 WBC RBC Hgb Hct MCV MCH MCHC RDW Plt Count MPV Immature Gran % (Auto) Neut % (Auto) Lymph % (Auto) [place] % (Auto) Eos % (Auto) Baso % (Auto) Lymph # (Auto) [place] # (Auto) Eos # (Auto) Baso # (Auto) Abs Immat Gran (auto) Absolute Neuts (auto) Absolute Nucleated RBC Nucleated RBC % (auto) PT INR aPTT Heparin Protocol 185.0 H* D O2 Saturation ABG pH at Pt Temp ABG pCO2 at Pt Temp ABG pO2 at Pt Temp ABG HCO3 ABG Base Excess (Actual) VBG pH VBG pCO2 VBG pO2 VBG HCO3 VBG O2 Saturation VBG Base Excess Sodium Potassium Chloride Carbon Dioxide Anion Gap BUN Creatinine Estim Creat Clear Calc Estimated GFR POC Glucose 50 L* 51 L* Random Glucose Calcium Phosphorus Magnesium Total Bilirubin AST ALT Alkaline Phosphatase Total Protein Albumin Blood Type Antibody Screen Crossmatch 08/31/24 08/31/24 08/31/24 16:59 18:09 18:19 WBC RBC Hgb Hct MCV MCH MCHC RDW Plt Count MPV Immature Gran % (Auto) Neut % (Auto) Lymph % (Auto) [place] % (Auto) Eos % (Auto) Baso % (Auto) Lymph # (Auto) [place] # (Auto) Eos # (Auto) Baso # (Auto) Abs Immat Gran (auto) Absolute Neuts (auto) Absolute Nucleated RBC Nucleated RBC % (auto) PT INR aPTT Heparin Protocol 136.1 H* D O2 Saturation ABG pH at Pt Temp ABG pCO2 at Pt Temp ABG pO2 at Pt Temp ABG HCO3 ABG Base Excess (Actual) VBG pH VBG pCO2 VBG pO2 VBG HCO3 VBG O2 Saturation VBG Base Excess Sodium Potassium Chloride Carbon Dioxide Anion Gap BUN Creatinine Estim Creat Clear Calc Estimated GFR POC Glucose 53 L* 123 H Random Glucose Calcium Phosphorus Magnesium Total Bilirubin AST ALT Alkaline Phosphatase Total Protein Albumin Blood Type Antibody Screen Crossmatch 08/31/24 08/31/24 08/31/24 18:53 19:13 19:25 WBC RBC Hgb Hct MCV MCH MCHC RDW Plt Count MPV Immature Gran % (Auto) Neut % (Auto) Lymph % (Auto) [place] % (Auto) Eos % (Auto) Baso % (Auto) Lymph # (Auto) [place] # (Auto) Eos # (Auto) Baso # (Auto) Abs Immat Gran (auto) Absolute Neuts (auto) Absolute Nucleated RBC Nucleated RBC % (auto) PT INR aPTT Heparin Protocol 88.8 H D O2 Saturation ABG pH at Pt Temp ABG pCO2 at Pt Temp ABG pO2 at Pt Temp ABG HCO3 ABG Base Excess (Actual) VBG pH VBG pCO2 VBG pO2 VBG HCO3 VBG O2 Saturation VBG Base Excess Sodium Potassium Chloride Carbon Dioxide Anion Gap BUN Creatinine Estim Creat Clear Calc Estimated GFR POC Glucose 100 126 H Random Glucose Calcium Phosphorus Magnesium Total Bilirubin AST ALT Alkaline Phosphatase Total Protein Albumin Blood Type Antibody Screen Crossmatch 08/31/24 08/31/24 08/31/24 20:35 20:43 21:08 WBC 16.8 H RBC 2.27 L D Hgb 6.8 L* D Hct 20.4 L* D MCV 89.9 MCH 30.0 MCHC 33.3 RDW 15.8 Plt Count 119 L D MPV 10.4 Immature Gran % (Auto) 0.4 Neut % (Auto) 85.7 H Lymph % (Auto) 9.8 L [place] % (Auto) 3.9 Eos % (Auto) 0.0 Baso % (Auto) 0.2 Lymph # (Auto) 1.7 [place] # (Auto) 0.7 Eos # (Auto) 0.0 Baso # (Auto) 0.0 Abs Immat Gran (auto) 0.07 H Absolute Neuts (auto) 14.4 H Absolute Nucleated RBC 0.020 H Nucleated RBC % (auto) 0.1 PT INR aPTT Heparin Protocol O2 Saturation ABG pH at Pt Temp ABG pCO2 at Pt Temp ABG pO2 at Pt Temp ABG HCO3 ABG Base Excess (Actual) VBG pH 7.28 L VBG pCO2 30 VBG pO2 44 VBG HCO3 14 L VBG O2 Saturation 65.0 VBG Base Excess -10.9 Sodium 137 Potassium 4.3 Chloride 104 Carbon Dioxide 15 L Anion Gap 22 H BUN 61 H Creatinine 2.65 H Estim Creat Clear Calc 16.3 Estimated GFR 18 POC Glucose Random Glucose 358 H* Calcium 7.9 L D Phosphorus 6.3 H Magnesium 2.3 Total Bilirubin AST ALT Alkaline Phosphatase Total Protein Albumin Blood Type O Positive Antibody Screen NEGATIVE Crossmatch See Detail 08/31/24 08/31/24 08/31/24 21:38 23:29 23:31 WBC RBC Hgb Hct MCV MCH MCHC RDW Plt Count MPV Immature Gran % (Auto) Neut % (Auto) Lymph % (Auto) [place] % (Auto) Eos % (Auto) Baso % (Auto) Lymph # (Auto) [place] # (Auto) Eos # (Auto) Baso # (Auto) Abs Immat Gran (auto) Absolute Neuts (auto) Absolute Nucleated RBC Nucleated RBC % (auto) PT INR aPTT Heparin Protocol O2 Saturation ABG pH at Pt Temp ABG pCO2 at Pt Temp ABG pO2 at Pt Temp ABG HCO3 ABG Base Excess (Actual) VBG pH VBG pCO2 VBG pO2 VBG HCO3 VBG O2 Saturation VBG Base Excess Sodium Potassium Chloride Carbon Dioxide Anion Gap BUN Creatinine Estim Creat Clear Calc Estimated GFR POC Glucose 154 H > 600 H* 155 H Random Glucose Calcium Phosphorus Magnesium Total Bilirubin AST ALT Alkaline Phosphatase Total Protein Albumin Blood Type Antibody Screen Crossmatch 09/01/24 09/01/24 09/01/24 00:07 01:51 04:14 WBC 17.6 H RBC 2.98 L D Hgb 8.5 L D Hct 25.5 L D MCV 85.6 MCH 28.5 MCHC 33.3 RDW 15.1 Plt Count 102 L MPV 11.1 Immature Gran % (Auto) 0.6 H Neut % (Auto) 84.8 H Lymph % (Auto) 8.6 L [place] % (Auto) 5.8 Eos % (Auto) 0.1 Baso % (Auto) 0.1 Lymph # (Auto) 1.5 [place] # (Auto) 1.0 Eos # (Auto) 0.0 Baso # (Auto) 0.0 Abs Immat Gran (auto) 0.10 H Absolute Neuts (auto) 15.0 H Absolute Nucleated RBC 0.030 H Nucleated RBC % (auto) 0.2 PT INR aPTT Heparin Protocol O2 Saturation ABG pH at Pt Temp ABG pCO2 at Pt Temp ABG pO2 at Pt Temp ABG HCO3 ABG Base Excess (Actual) VBG pH VBG pCO2 VBG pO2 VBG HCO3 VBG O2 Saturation VBG Base Excess Sodium 141 Potassium 3.7 Chloride 106 Carbon Dioxide 20 L Anion Gap 19 BUN 59 H Creatinine 2.29 H Estim Creat Clear Calc 19.0 Estimated GFR 22 POC Glucose 115 132 H Random Glucose 152 H Calcium 9.1 D Phosphorus 6.2 H Magnesium 2.2 Total Bilirubin AST ALT Alkaline Phosphatase Total Protein Albumin Blood Type Antibody Screen Crossmatch 09/01/24 09/01/24 09/01/24 05:02 05:07 07:27 WBC 15.9 H RBC 3.01 L Hgb 8.5 L Hct 26.1 L MCV 86.7 MCH 28.2 MCHC 32.6 RDW 15.8 Plt Count 110 L MPV 11.2 Immature Gran % (Auto) 1.0 H Neut % (Auto) 83.8 H Lymph % (Auto) 9.6 L [place] % (Auto) 5.2 Eos % (Auto) 0.1 Baso % (Auto) 0.3 Lymph # (Auto) 1.5 [place] # (Auto) 0.8 Eos # (Auto) 0.0 Baso # (Auto) 0.0 Abs Immat Gran (auto) 0.16 H Absolute Neuts (auto) 13.4 H Absolute Nucleated RBC 0.070 H Nucleated RBC % (auto) 0.4 H PT 26.6 H D INR 2.3 H aPTT Heparin Protocol O2 Saturation ABG pH at Pt Temp ABG pCO2 at Pt Temp ABG pO2 at Pt Temp ABG HCO3 ABG Base Excess (Actual) VBG pH 7.29 L VBG pCO2 53 VBG pO2 39 VBG HCO3 26 VBG O2 Saturation 62.0 VBG Base Excess -0.7 Sodium 139 Potassium 4.7 D Chloride 102 Carbon Dioxide 22 Anion Gap 20 BUN 60 H Creatinine 2.39 H Estim Creat Clear Calc 19.7 Estimated GFR 20 POC Glucose 121 H Random Glucose 152 H Calcium 8.4 D Phosphorus 7.6 H Magnesium 2.4 Total Bilirubin 1.2 H AST 3410 H ALT 2491 H Alkaline Phosphatase 89 Total Protein 5.4 L Albumin 3.2 L Blood Type Antibody Screen Crossmatch 09/01/24 09/01/24 09/01/24 11:10 11:12 11:17 WBC RBC Hgb Hct MCV MCH MCHC RDW Plt Count MPV Immature Gran % (Auto) Neut % (Auto) Lymph % (Auto) [place] % (Auto) Eos % (Auto) Baso % (Auto) Lymph # (Auto) [place] # (Auto) Eos # (Auto) Baso # (Auto) Abs Immat Gran (auto) Absolute Neuts (auto) Absolute Nucleated RBC Nucleated RBC % (auto) PT INR aPTT Heparin Protocol O2 Saturation 89.0 ABG pH at Pt Temp 7.30 L ABG pCO2 at Pt Temp 46 H ABG pO2 at Pt Temp 65 L ABG HCO3 23 ABG Base Excess (Actual) -2.5 VBG pH VBG pCO2 VBG pO2 VBG HCO3 VBG O2 Saturation VBG Base Excess Sodium Potassium Chloride Carbon Dioxide Anion Gap BUN Creatinine Estim Creat Clear Calc Estimated GFR POC Glucose 67 116 H Random Glucose Calcium Phosphorus Magnesium Total Bilirubin AST ALT Alkaline Phosphatase Total Protein Albumin Blood Type Antibody Screen Crossmatch Microbiology Microbiology Results: Microbiology 08/30/24 21:25 Blood - Venous Blood Culture - Preliminary No growth after 24 hours. 08/30/24 21:25 Blood - Venous Blood Culture - Preliminary No growth after 24 hours. Procedures Date of Service Date of Service: 09/01/24 Assessment & Plan Assessment and plan (1) KEVIN (acute kidney injury): Status: Acute (2) Heart failure with recovered ejection fraction (HFrecEF): Status: Acute Plan KEVIN likely multifactorial; concurrent use of diuretics and daily NSAIDs at home likely contributory, in addition hemodynamic KEVIN from hypotension is likely a contributing factor. creatinine remains stable given no clinical signs of hypervolemia, recommend to continue to hold diuretics for now; may diurese if clinically indicated. recommend avoiding NSAIDs and other nephrotoxins. continue close monitoring of I&O continue to monitor blood pressures and assess daily electrolyte and renal function studies Will continue to follow Discussed with Dr Cunningham. Time Spent With Patient Time: Total time managing care of this patient today ____ minutes. Progress Note: Quality Stroke Does the patient have a stroke diagnosis?: No
[2024-09-01] MEDS: fentaNYL citrate/NS 1,000 MCG/100 ML PLAST..BAG 10 MCG IVCONT ×2 (09:17→18:37)
--- NOTE | 2024-09-01 09:40 | PM.EVENT ---
Event Note Date of Service: 09/01/24 Event Note: 08/30/24: Patient hypoxic on the floor Patient was a rapid response on the floor due to severe hypoxia in the 70s, ? Obtunded with concerns of airway protection Patient required emergent?intubation on the floor and was transferred to the ICU Suspected fat emboli Cardiology and Nephrology following for CHF and KEVIN Patient not cleared for surgery at this time Patient currently intubated and on pressors, hemoglobin dropped to 6.8 yesterday Orthopedics continuing to follow Time Spent With Patient Time: Total time managing care of this patient today ____ minutes.
[2024-09-01] MEDS: Ampicillin Sodium/Sulbactam Na 3 GM in 0.9 % Sodium Chloride 100 ML IV ×2 (09:54→21:31)
--- NOTE | 2024-09-01 10:49 | P.PNCC_ITS ---
Subjective Subjective Date of Service: 09/01/24 Interval History: 64-year-old lady with underlying systolic heart failure, COPD on 4 L, pulmonary hypertension, diabetes mellitus, hypertension, hyperlipidemia admitted on 08/29/2024 after mechanical fall with resultant right hip fracture. Patient admitted to telemetry so within evaluated by orthopedic service with plans for operative repair. Hospital course significant for progressive hypoxemia requiring CPAP/non-rebreather with development of respiratory distress on 08/30/2024 requiring intubation on telemetry saba and transferred to the intensive care unit. CT angio chest with no evidence of pulmonary emboli, but stigmata of pulmonary hypertension. Patient requiring maximum ventilatory support, also with development of shock and NSTEMI. Overnight with worsening shock, now with ischemic hepatitis, also with development loss anemia drip stopped, patient transfused 1 unit of packed red blood cells with stabilization of hemoglobin. Critical Care Time (minutes): 60 Physical Exam 2 Vital Signs: Vital Signs: Last Vital Signs Temp 100.4 F 09/01/24 10:00 Pulse 117 H 09/01/24 10:00 Resp 25 H 09/01/24 10:00 BP 90/70 09/01/24 10:00 Pulse Ox 87 L 09/01/24 10:00 O2 Del Method Mechanical Ventil ation 09/01/24 10:00 O2 Flow Rate 15 08/30/24 15:47 FiO2 90 09/01/24 10:00 Oxygen Flow Rate 4 08/29/24 15:29 BMI result Body Mass Index 24.3 Const: General: no acute distress and other (Sedated on ventilatory support) Eyes: Sclerae: sclerae normal EOM: EOMs intact bilaterally Neck: Neck: Yes no lymphadenopathy, Yes trachea midline and Yes supple Resp: Auscultation: crackles (Bilateral) Cardio: Rate: tachycardic Rhythm: regular rhythm Heart sounds: no gallops, no murmurs and no rubs GI: Palpation (GI): Soft to palpation and Other GI palpation findings present ( Nontender) Auscultation: normal bowel sounds Extrem: General: Yes no pedal edema, No clubbing and No cyanosis Objective Data Labs 09/01/24 05:02 09/01/24 05:02 Labs: Laboratory Results - last 24 hr 08/31/24 08/31/24 08/31/24 11:17 15:33 16:26 WBC RBC Hgb Hct MCV MCH MCHC RDW Plt Count MPV Immature Gran % (Auto) Neut % (Auto) Lymph % (Auto) [place] % (Auto) Eos % (Auto) Baso % (Auto) Lymph # (Auto) [place] # (Auto) Eos # (Auto) Baso # (Auto) Abs Immat Gran (auto) Absolute Neuts (auto) Absolute Nucleated RBC Nucleated RBC % (auto) PT INR aPTT Heparin Protocol VBG pH VBG pCO2 VBG pO2 VBG HCO3 VBG O2 Saturation VBG Base Excess Sodium Potassium Chloride Carbon Dioxide Anion Gap BUN Creatinine Estim Creat Clear Calc Estimated GFR POC Glucose 110 50 L* 51 L* Random Glucose Calcium Phosphorus Magnesium Total Bilirubin AST ALT Alkaline Phosphatase Total Protein Albumin Blood Type Antibody Screen Crossmatch 08/31/24 08/31/24 08/31/24 16:38 16:59 18:09 WBC RBC Hgb Hct MCV MCH MCHC RDW Plt Count MPV Immature Gran % (Auto) Neut % (Auto) Lymph % (Auto) [place] % (Auto) Eos % (Auto) Baso % (Auto) Lymph # (Auto) [place] # (Auto) Eos # (Auto) Baso # (Auto) Abs Immat Gran (auto) Absolute Neuts (auto) Absolute Nucleated RBC Nucleated RBC % (auto) PT INR aPTT Heparin Protocol 185.0 H* D 136.1 H* D VBG pH VBG pCO2 VBG pO2 VBG HCO3 VBG O2 Saturation VBG Base Excess Sodium Potassium Chloride Carbon Dioxide Anion Gap BUN Creatinine Estim Creat Clear Calc Estimated GFR POC Glucose 53 L* Random Glucose Calcium Phosphorus Magnesium Total Bilirubin AST ALT Alkaline Phosphatase Total Protein Albumin Blood Type Antibody Screen Crossmatch 08/31/24 08/31/24 08/31/24 18:19 18:53 19:13 WBC RBC Hgb Hct MCV MCH MCHC RDW Plt Count MPV Immature Gran % (Auto) Neut % (Auto) Lymph % (Auto) [place] % (Auto) Eos % (Auto) Baso % (Auto) Lymph # (Auto) [place] # (Auto) Eos # (Auto) Baso # (Auto) Abs Immat Gran (auto) Absolute Neuts (auto) Absolute Nucleated RBC Nucleated RBC % (auto) PT INR aPTT Heparin Protocol 88.8 H D VBG pH VBG pCO2 VBG pO2 VBG HCO3 VBG O2 Saturation VBG Base Excess Sodium Potassium Chloride Carbon Dioxide Anion Gap BUN Creatinine Estim Creat Clear Calc Estimated GFR POC Glucose 123 H 100 Random Glucose Calcium Phosphorus Magnesium Total Bilirubin AST ALT Alkaline Phosphatase Total Protein Albumin Blood Type Antibody Screen Crossmatch 08/31/24 08/31/24 08/31/24 19:25 20:35 20:43 WBC 16.8 H RBC 2.27 L D Hgb 6.8 L* D Hct 20.4 L* D MCV 89.9 MCH 30.0 MCHC 33.3 RDW 15.8 Plt Count 119 L D MPV 10.4 Immature Gran % (Auto) 0.4 Neut % (Auto) 85.7 H Lymph % (Auto) 9.8 L [place] % (Auto) 3.9 Eos % (Auto) 0.0 Baso % (Auto) 0.2 Lymph # (Auto) 1.7 [place] # (Auto) 0.7 Eos # (Auto) 0.0 Baso # (Auto) 0.0 Abs Immat Gran (auto) 0.07 H Absolute Neuts (auto) 14.4 H Absolute Nucleated RBC 0.020 H Nucleated RBC % (auto) 0.1 PT INR aPTT Heparin Protocol VBG pH 7.28 L VBG pCO2 30 VBG pO2 44 VBG HCO3 14 L VBG O2 Saturation 65.0 VBG Base Excess -10.9 Sodium Potassium Chloride Carbon Dioxide Anion Gap BUN Creatinine Estim Creat Clear Calc Estimated GFR POC Glucose 126 H Random Glucose Calcium Phosphorus Magnesium Total Bilirubin AST ALT Alkaline Phosphatase Total Protein Albumin Blood Type Antibody Screen Crossmatch 08/31/24 08/31/24 08/31/24 21:08 21:38 23:29 WBC RBC Hgb Hct MCV MCH MCHC RDW Plt Count MPV Immature Gran % (Auto) Neut % (Auto) Lymph % (Auto) [place] % (Auto) Eos % (Auto) Baso % (Auto) Lymph # (Auto) [place] # (Auto) Eos # (Auto) Baso # (Auto) Abs Immat Gran (auto) Absolute Neuts (auto) Absolute Nucleated RBC Nucleated RBC % (auto) PT INR aPTT Heparin Protocol VBG pH VBG pCO2 VBG pO2 VBG HCO3 VBG O2 Saturation VBG Base Excess Sodium 137 Potassium 4.3 Chloride 104 Carbon Dioxide 15 L Anion Gap 22 H BUN 61 H Creatinine 2.65 H Estim Creat Clear Calc 16.3 Estimated GFR 18 POC Glucose 154 H > 600 H* Random Glucose 358 H* Calcium 7.9 L D Phosphorus 6.3 H Magnesium 2.3 Total Bilirubin AST ALT Alkaline Phosphatase Total Protein Albumin Blood Type O Positive Antibody Screen NEGATIVE Crossmatch See Detail 08/31/24 09/01/24 09/01/24 23:31 00:07 01:51 WBC 17.6 H RBC 2.98 L D Hgb 8.5 L D Hct 25.5 L D MCV 85.6 MCH 28.5 MCHC 33.3 RDW 15.1 Plt Count 102 L MPV 11.1 Immature Gran % (Auto) 0.6 H Neut % (Auto) 84.8 H Lymph % (Auto) 8.6 L [place] % (Auto) 5.8 Eos % (Auto) 0.1 Baso % (Auto) 0.1 Lymph # (Auto) 1.5 [place] # (Auto) 1.0 Eos # (Auto) 0.0 Baso # (Auto) 0.0 Abs Immat Gran (auto) 0.10 H Absolute Neuts (auto) 15.0 H Absolute Nucleated RBC 0.030 H Nucleated RBC % (auto) 0.2 PT INR aPTT Heparin Protocol VBG pH VBG pCO2 VBG pO2 VBG HCO3 VBG O2 Saturation VBG Base Excess Sodium 141 Potassium 3.7 Chloride 106 Carbon Dioxide 20 L Anion Gap 19 BUN 59 H Creatinine 2.29 H Estim Creat Clear Calc 19.0 Estimated GFR 22 POC Glucose 155 H 115 Random Glucose 152 H Calcium 9.1 D Phosphorus 6.2 H Magnesium 2.2 Total Bilirubin AST ALT Alkaline Phosphatase Total Protein Albumin Blood Type Antibody Screen Crossmatch 09/01/24 09/01/24 09/01/24 04:14 05:02 05:07 WBC 15.9 H RBC 3.01 L Hgb 8.5 L Hct 26.1 L MCV 86.7 MCH 28.2 MCHC 32.6 RDW 15.8 Plt Count 110 L MPV 11.2 Immature Gran % (Auto) 1.0 H Neut % (Auto) 83.8 H Lymph % (Auto) 9.6 L [place] % (Auto) 5.2 Eos % (Auto) 0.1 Baso % (Auto) 0.3 Lymph # (Auto) 1.5 [place] # (Auto) 0.8 Eos # (Auto) 0.0 Baso # (Auto) 0.0 Abs Immat Gran (auto) 0.16 H Absolute Neuts (auto) 13.4 H Absolute Nucleated RBC 0.070 H Nucleated RBC % (auto) 0.4 H PT 26.6 H D INR 2.3 H aPTT Heparin Protocol VBG pH 7.29 L VBG pCO2 53 VBG pO2 39 VBG HCO3 26 VBG O2 Saturation 62.0 VBG Base Excess -0.7 Sodium 139 Potassium 4.7 D Chloride 102 Carbon Dioxide 22 Anion Gap 20 BUN 60 H Creatinine 2.39 H Estim Creat Clear Calc 19.7 Estimated GFR 20 POC Glucose 132 H Random Glucose 152 H Calcium 8.4 D Phosphorus 7.6 H Magnesium 2.4 Total Bilirubin 1.2 H AST 3410 H ALT 2491 H Alkaline Phosphatase 89 Total Protein 5.4 L Albumin 3.2 L Blood Type Antibody Screen Crossmatch 09/01/24 07:27 WBC RBC Hgb Hct MCV MCH MCHC RDW Plt Count MPV Immature Gran % (Auto) Neut % (Auto) Lymph % (Auto) [place] % (Auto) Eos % (Auto) Baso % (Auto) Lymph # (Auto) [place] # (Auto) Eos # (Auto) Baso # (Auto) Abs Immat Gran (auto) Absolute Neuts (auto) Absolute Nucleated RBC Nucleated RBC % (auto) PT INR aPTT Heparin Protocol VBG pH VBG pCO2 VBG pO2 VBG HCO3 VBG O2 Saturation VBG Base Excess Sodium Potassium Chloride Carbon Dioxide Anion Gap BUN Creatinine Estim Creat Clear Calc Estimated GFR POC Glucose 121 H Random Glucose Calcium Phosphorus Magnesium Total Bilirubin AST ALT Alkaline Phosphatase Total Protein Albumin Blood Type Antibody Screen Crossmatch Microbiology Microbiology Results: Microbiology 08/30/24 21:25 Blood - Venous Blood Culture - Preliminary No growth after 24 hours. 08/30/24 21:25 Blood - Venous Blood Culture - Preliminary No growth after 24 hours. Progress Note: A&P Assessment and plan (1) Ischemic hepatitis: Status: Acute (2) Congestive heart failure: Status: Acute (3) Fat embolism: Status: Acute (4) Type 2 diabetes mellitus, without long-term current use of insulin: Status: Acute (5) KEVIN (acute kidney injury): Status: Acute (6) Severe chronic obstructive pulmonary disease: Status: Acute (7) Acute hypoxic respiratory failure: Status: Acute (8) Closed right hip fracture: Status: Acute Plan Assessment: 64-year-old lady admitted with mechanical fall resulting in right hip fracture complicated by acute hypoxic respiratory failure likely secondary to fat embolism requiring intubation and ventilatory support, also further complicated by pulmonary aspiration, shock, KEVIN, and NSTEMI. Now with worsening shock and development of ischemic hepatitis. Plan: Neuro: No acute issues. Cardiac: Shock, undifferentiated, continue to titrate off pressor support as tolerated. 2D echocardiogram is pending. Cardiology service care appreciated. Heparin drip held secondary to acute blood loss anemia. Pulmonary: Acute hypoxic respiratory failure likely secondary to combination asthma and pulmonary aspiration now requiring maximum ventilatory support. Continue to titrate off as tolerated. CT angio chest with no evidence of pulmonary emboli. Renal: Acute kidney injury likely secondary to ATN. Non oliguric. Continue to monitor renal indices and urine output. Endo: No acute issues. GI: Ischemic hepatitis secondary to shock. ID: Empiric coverage for pulmonary aspiration. Heme/Onc: Acute blood loss anemia. Heparin drip stopped. On 3 used 1 unit of packed red blood cells with stabilization of hemoglobin. Psych: No acute issues. Miscellaneous: Right hip fracture. Orthopedic surgery service care appreciated. Initially planned for OR repair, now on hold. Prophylaxis: Pneumatic compression, ppi Diet: Tube feeds Critical care time spent: 60 minutes Quality Stroke Does the patient have a stroke diagnosis?: No VTE Prior VTE?: No VTE Risk Level:: Medical - moderate - high VTE Device Contraindication: N/A - Device Ordered VTE Drug Contraindication: Treatment Not Indicated
[2024-09-01] MEDS: Norepinephrine Bitartrate/NS 16 MG/250 ML PLAST..BAG 36.42 MG IVCONT (10:57)
--- NOTE | 2024-09-01 11:10 | MHC.CLN ---
F/U PT REMAINS INTUBATED AND SEDATED DISCUSSED AT ROUNDS WITH MD DAY 2 NPO IF TF NEEDED; RECOMMEND GLUCERNA AT 45ML/HR TO PROVIDE 1080KCALS (1561KCALS WITH SEDATION; 28KCALS/KG), 45G PROTEIN (.8G/KG), 921ML FREE WATER FROM FORMULA MONITOR TOLERANCE AND LYTES FOLLOWING FOR DIET ADVANCEMENT
[2024-09-01 11:16] LABS: Glucose, Whole Blood 116 mg/dL (60-115)
[2024-09-01 11:16] LABS: Glucose, Whole Blood 67 mg/dL (60-115)
[2024-09-01 11:20] LABS: ABG Base Excess -2.5 mmol/L; ABG HCO3 23 mmol/L (22-26); ABG pCO2 46 mmHg (32-45); ABG pO2 65 mmHg (83-108)
--- NOTE | 2024-09-01 11:31 | PC.NURSE ---
Difficultly obtaining O2 sat, reading 60-70's w/ poor pleath, multiple O2 sites attempted - MD and RT called to bedside. ABG obtained - see values - notified - VO Dr Beckford turn off Spo2 alarm, no new orders at this time.
--- NOTE | 2024-09-01 13:57 | P.PNCA_ITS ---
Subjective Subjective Date of Service: 09/01/24 Interval history: Seen examined at bedside. Currently sedated intubated. On pressors and spiking fevers. Physical Exam Vital Signs: Last Vital Signs Temp 101.1 F H 09/01/24 13:00 Pulse 119 H 09/01/24 13:00 Resp 25 H 09/01/24 13:00 BP 102/49 L 09/01/24 13:00 Pulse Ox 86 L 09/01/24 13:00 O2 Del Method Mechanical Ventilation 09/01/24 13:00 O2 Flow Rate 15 08/30/24 15:47 FiO2 100 09/01/24 13:00 Oxygen Flow Rate 4 08/29/24 15:29 BMI result Body Mass Index 24.3 GENERAL APPEARANCE: Sedated and ventilated. NECK: no carotid bruit, no obvious jugular venous distention. SKIN: no suspicious lesions, warm and dry. HEART: no murmurs, regular rate and rhythm. Tachycardic. LUNGS: Clear to auscultation anteriorly. ABDOMEN: soft, nontender. EXTREMITIES: no edema. PERIPHERAL PULSES: equal. NEUROLOGIC: Sedated and ventilated. Objective Labs and Meds 09/01/24 05:02 09/01/24 05:02 Lab results: Laboratory Results - last 24 hr 08/31/24 08/31/24 08/31/24 15:33 16:26 16:38 WBC RBC Hgb Hct MCV MCH MCHC RDW Plt Count MPV Immature Gran % (Auto) Neut % (Auto) Lymph % (Auto) [place] % (Auto) Eos % (Auto) Baso % (Auto) Lymph # (Auto) [place] # (Auto) Eos # (Auto) Baso # (Auto) Abs Immat Gran (auto) Absolute Neuts (auto) Absolute Nucleated RBC Nucleated RBC % (auto) PT INR aPTT Heparin Protocol 185.0 H* D O2 Saturation ABG pH at Pt Temp ABG pCO2 at Pt Temp ABG pO2 at Pt Temp ABG HCO3 ABG Base Excess (Actual) VBG pH VBG pCO2 VBG pO2 VBG HCO3 VBG O2 Saturation VBG Base Excess Sodium Potassium Chloride Carbon Dioxide Anion Gap BUN Creatinine Estim Creat Clear Calc Estimated GFR POC Glucose 50 L* 51 L* Random Glucose Calcium Phosphorus Magnesium Total Bilirubin AST ALT Alkaline Phosphatase Total Protein Albumin Blood Type Antibody Screen Crossmatch 08/31/24 08/31/2425 16:59 18:09 18:19 WBC RBC Hgb Hct MCV MCH MCHC RDW Plt Count MPV Immature Gran % (Auto) Neut % (Auto) Lymph % (Auto) [place] % (Auto) Eos % (Auto) Baso % (Auto) Lymph # (Auto) [place] # (Auto) Eos # (Auto) Baso # (Auto) Abs Immat Gran (auto) Absolute Neuts (auto) Absolute Nucleated RBC Nucleated RBC % (auto) PT INR aPTT Heparin Protocol 136.1 H* D O2 Saturation ABG pH at Pt Temp ABG pCO2 at Pt Temp ABG pO2 at Pt Temp ABG HCO3 ABG Base Excess (Actual) VBG pH VBG pCO2 VBG pO2 VBG HCO3 VBG O2 Saturation VBG Base Excess Sodium Potassium Chloride Carbon Dioxide Anion Gap BUN Creatinine Estim Creat Clear Calc Estimated GFR POC Glucose 53 L* 123 H Random Glucose Calcium Phosphorus Magnesium Total Bilirubin AST ALT Alkaline Phosphatase Total Protein Albumin Blood Type Antibody Screen Crossmatch 08/31/24 08/31/24 08/31/24 18:53 19:13 19:25 WBC RBC Hgb Hct MCV MCH MCHC RDW Plt Count MPV Immature Gran % (Auto) Neut % (Auto) Lymph % (Auto) [place] % (Auto) Eos % (Auto) Baso % (Auto) Lymph # (Auto) [place] # (Auto) Eos # (Auto) Baso # (Auto) Abs Immat Gran (auto) Absolute Neuts (auto) Absolute Nucleated RBC Nucleated RBC % (auto) PT INR aPTT Heparin Protocol 88.8 H D O2 Saturation ABG pH at Pt Temp ABG pCO2 at Pt Temp ABG pO2 at Pt Temp ABG HCO3 ABG Base Excess (Actual) VBG pH VBG pCO2 VBG pO2 VBG HCO3 VBG O2 Saturation VBG Base Excess Sodium Potassium Chloride Carbon Dioxide Anion Gap BUN Creatinine Estim Creat Clear Calc Estimated GFR POC Glucose 100 126 H Random Glucose Calcium Phosphorus Magnesium Total Bilirubin AST ALT Alkaline Phosphatase Total Protein Albumin Blood Type Antibody Screen Crossmatch 08/31/24 08/31/24 08/31/24 20:35 20:43 21:08 WBC 16.8 H RBC 2.27 L D Hgb 6.8 L* D Hct 20.4 L* D MCV 89.9 MCH 30.0 MCHC 33.3 RDW 15.8 Plt Count 119 L D MPV 10.4 Immature Gran % (Auto) 0.4 Neut % (Auto) 85.7 H Lymph % (Auto) 9.8 L [place] % (Auto) 3.9 Eos % (Auto) 0.0 Baso % (Auto) 0.2 Lymph # (Auto) 1.7 [place] # (Auto) 0.7 Eos # (Auto) 0.0 Baso # (Auto) 0.0 Abs Immat Gran (auto) 0.07 H Absolute Neuts (auto) 14.4 H Absolute Nucleated RBC 0.020 H Nucleated RBC % (auto) 0.1 PT INR aPTT Heparin Protocol O2 Saturation ABG pH at Pt Temp ABG pCO2 at Pt Temp ABG pO2 at Pt Temp ABG HCO3 ABG Base Excess (Actual) VBG pH 7.28 L VBG pCO2 30 VBG pO2 44 VBG HCO3 14 L VBG O2 Saturation 65.0 VBG Base Excess -10.9 Sodium 137 Potassium 4.3 Chloride 104 Carbon Dioxide 15 L Anion Gap 22 H BUN 61 H Creatinine 2.65 H Estim Creat Clear Calc 16.3 Estimated GFR 18 POC Glucose Random Glucose 358 H* Calcium 7.9 L D Phosphorus 6.3 H Magnesium 2.3 Total Bilirubin AST ALT Alkaline Phosphatase Total Protein Albumin Blood Type O Positive Antibody Screen NEGATIVE Crossmatch See Detail 08/31/24 08/31/24 08/31/24 21:38 23:29 23:31 WBC RBC Hgb Hct MCV MCH MCHC RDW Plt Count MPV Immature Gran % (Auto) Neut % (Auto) Lymph % (Auto) [place] % (Auto) Eos % (Auto) Baso % (Auto) Lymph # (Auto) [place] # (Auto) Eos # (Auto) Baso # (Auto) Abs Immat Gran (auto) Absolute Neuts (auto) Absolute Nucleated RBC Nucleated RBC % (auto) PT INR aPTT Heparin Protocol O2 Saturation ABG pH at Pt Temp ABG pCO2 at Pt Temp ABG pO2 at Pt Temp ABG HCO3 ABG Base Excess (Actual) VBG pH VBG pCO2 VBG pO2 VBG HCO3 VBG O2 Saturation VBG Base Excess Sodium Potassium Chloride Carbon Dioxide Anion Gap BUN Creatinine Estim Creat Clear Calc Estimated GFR POC Glucose 154 H > 600 H* 155 H Random Glucose Calcium Phosphorus Magnesium Total Bilirubin AST ALT Alkaline Phosphatase Total Protein Albumin Blood Type Antibody Screen Crossmatch 09/01/24 09/01/24 09/01/24 00:07 01:51 04:14 WBC 17.6 H RBC 2.98 L D Hgb 8.5 L D Hct 25.5 L D MCV 85.6 MCH 28.5 MCHC 33.3 RDW 15.1 Plt Count 102 L MPV 11.1 Immature Gran % (Auto) 0.6 H Neut % (Auto) 84.8 H Lymph % (Auto) 8.6 L [place] % (Auto) 5.8 Eos % (Auto) 0.1 Baso % (Auto) 0.1 Lymph # (Auto) 1.5 [place] # (Auto) 1.0 Eos # (Auto) 0.0 Baso # (Auto) 0.0 Abs Immat Gran (auto) 0.10 H Absolute Neuts (auto) 15.0 H Absolute Nucleated RBC 0.030 H Nucleated RBC % (auto) 0.2 PT INR aPTT Heparin Protocol O2 Saturation ABG pH at Pt Temp ABG pCO2 at Pt Temp ABG pO2 at Pt Temp ABG HCO3 ABG Base Excess (Actual) VBG pH VBG pCO2 VBG pO2 VBG HCO3 VBG O2 Saturation VBG Base Excess Sodium 141 Potassium 3.7 Chloride 106 Carbon Dioxide 20 L Anion Gap 19 BUN 59 H Creatinine 2.29 H Estim Creat Clear Calc 19.0 Estimated GFR 22 POC Glucose 115 132 H Random Glucose 152 H Calcium 9.1 D Phosphorus 6.2 H Magnesium 2.2 Total Bilirubin AST ALT Alkaline Phosphatase Total Protein Albumin Blood Type Antibody Screen Crossmatch 09/01/24 09/01/24 09/01/24 05:02 05:07 07:27 WBC 15.9 H RBC 3.01 L Hgb 8.5 L Hct 26.1 L MCV 86.7 MCH 28.2 MCHC 32.6 RDW 15.8 Plt Count 110 L MPV 11.2 Immature Gran % (Auto) 1.0 H Neut % (Auto) 83.8 H Lymph % (Auto) 9.6 L [place] % (Auto) 5.2 Eos % (Auto) 0.1 Baso % (Auto) 0.3 Lymph # (Auto) 1.5 [place] # (Auto) 0.8 Eos # (Auto) 0.0 Baso # (Auto) 0.0 Abs Immat Gran (auto) 0.16 H Absolute Neuts (auto) 13.4 H Absolute Nucleated RBC 0.070 H Nucleated RBC % (auto) 0.4 H PT 26.6 H D INR 2.3 H aPTT Heparin Protocol O2 Saturation ABG pH at Pt Temp ABG pCO2 at Pt Temp ABG pO2 at Pt Temp ABG HCO3 ABG Base Excess (Actual) VBG pH 7.29 L VBG pCO2 53 VBG pO2 39 VBG HCO3 26 VBG O2 Saturation 62.0 VBG Base Excess -0.7 Sodium 139 Potassium 4.7 D Chloride 102 Carbon Dioxide 22 Anion Gap 20 BUN 60 H Creatinine 2.39 H Estim Creat Clear Calc 19.7 Estimated GFR 20 POC Glucose 121 H Random Glucose 152 H Calcium 8.4 D Phosphorus 7.6 H Magnesium 2.4 Total Bilirubin 1.2 H AST 3410 H ALT 2491 H Alkaline Phosphatase 89 Total Protein 5.4 L Albumin 3.2 L Blood Type Antibody Screen Crossmatch 09/01/24 09/01/24 09/01/24 11:10 11:12 11:17 WBC RBC Hgb Hct MCV MCH MCHC RDW Plt Count MPV Immature Gran % (Auto) Neut % (Auto) Lymph % (Auto) [place] % (Auto) Eos % (Auto) Baso % (Auto) Lymph # (Auto) [place] # (Auto) Eos # (Auto) Baso # (Auto) Abs Immat Gran (auto) Absolute Neuts (auto) Absolute Nucleated RBC Nucleated RBC % (auto) PT INR aPTT Heparin Protocol O2 Saturation 89.0 ABG pH at Pt Temp 7.30 L ABG pCO2 at Pt Temp 46 H ABG pO2 at Pt Temp 65 L ABG HCO3 23 ABG Base Excess (Actual) -2.5 VBG pH VBG pCO2 VBG pO2 VBG HCO3 VBG O2 Saturation VBG Base Excess Sodium Potassium Chloride Carbon Dioxide Anion Gap BUN Creatinine Estim Creat Clear Calc Estimated GFR POC Glucose 67 116 H Random Glucose Calcium Phosphorus Magnesium Total Bilirubin AST ALT Alkaline Phosphatase Total Protein Albumin Blood Type Antibody Screen Crossmatch Progress Note: A&P Assessment and plan (1) Respiratory failure: Status: Acute (2) NSTEMI (non-ST elevated myocardial infarction): Status: Acute Plan 64-year-old female who presented with mechanical fall and right femoral fracture and developed progressive hypoxia leading to intubation. Given long bone fracture, there is concern about fat embolism as potential reason for hypoxia. She has significant RV dysfunction with severe pulmonary hypertension on echo. She had CT pulmonary angiogram last evening which ruled out PE. She has right bundle-branch block which is new and tachycardia. If in fact this is fat embolism syndrome, the care is supportive in that case. She has elevated troponin level and I think this is a type 2 injury in the setting of hypoxia. Currently on pressors and continues to spike fevers. Overall prognosis is quite guarded in her. Thank you for allowing me to participate in the care of your patient. Please feel free to contact me if you have any questions. Time Spent With Patient Time: Total time managing care of this patient today ____ minutes. Progress Note: Quality Stroke Does the patient have a stroke diagnosis?: No Procedures Date of Service Date of Service: 09/01/24
--- NOTE | 2024-09-01 14:19 | MHC.CM.PN ---
Pt remains on ventilatory support after a suspected fat embolism d/t femur fx. Pt is not stable for ORIF of fx at this time. Pt is on 100% O2 via vent with sats in the 80's. Pt originally from home w/[employer]OSMETOLOG[employer] and services. She will need STR following surgical repair of femur. Referrals to be made when condition stabilizes. CM to follow.
[2024-09-01] MEDS: Norepinephrine Bitartrate/NS 16 MG/250 ML PLAST..BAG 39.83 MG IVCONT ×2 (17:05→23:30)
[2024-09-01 17:19] LABS: Glucose, Whole Blood 113 mg/dL (60-115)
[2024-09-01 19:13] LABS: Hemoglobin 7.9 g/dl (12.0-16.0); Mean Corpuscular HGB Conc 34.3 g/dl (31.0-35.0); Mean Corpuscular Hemoglobin 29.4 pg (27.0-33.0); Mean Corpuscular Volume 85.5 fL (80.0-98.0); Mean Platelet Volume 11.1 fL (9.4-12.3); NRBC Pct Auto 0.7 /100WBC (0.0-0.2); Red Blood Count 2.69 X10*6/uL (4.20-5.50); Red Cell Distribution Width 16.7 % (11.0-16.0); White Blood Count 13.4 X10*3/uL (4.8-10.8)
[2024-09-01 19:17] LABS: Venous Blood Gas Refer to POC result
[2024-09-01 19:17] LABS: VBG Base Excess -1.8 mmol/L; VBG HCO3 23 mmol/L (22-26); VBG pCO2 44 mmHg; VBG pH 7.33 (7.32-7.43); VBG pO2 45 mmHg
[2024-09-01 19:26] LABS: Anion Gap 27 (12-20); Blood Urea Nitrogen 64 mg/dL (9-16); Carbon Dioxide 21 mmol/L (22-29); Chloride 96 mmol/L (96-108); Estimated Glomerular Filt Rate 16; Glucose Random 124 mg/dL (60-115); Magnesium 2.2 mg/dL (1.6-2.6); Phosphorus 8.8 mg/dL (2.7-4.5); Sodium 139 mmol/L (135-145)
[2024-09-01 19:35] LABS: ABG Refer to POC result
[2024-09-01 19:41] LABS: Calcium 7.1 mg/dL (8.4-10.2)
[2024-09-01 20:11] LABS: Band Neutrophils Percent 6 % (3-5); Lymphocytes Absolute Manual 0.5 X10*3/uL (1.2-4.9); Lymphocytes Percent Manual 4 % (20-40); Neutrophils Absolute Manual 12.9 X10*3/uL (2.0-8.3); Neutrophils Percent Manual 90 % (45-73)
[2024-09-01 20:12] LABS: Nucleated Red Blood Cells 1 /100WBC (0-0)
[2024-09-01 20:14] LABS: Burr Cells 1+ (0-2) /OIF; Large Platelet PRESENT; Ovalocytes 1+ (5-14) /OIF; Platelet Estimate DECREASED (NORMAL); RBC Morphology NOTED; Tear Drop Cells 1+ (0-2) /OIF
[2024-09-01 20:15] LABS: Platelet Count 81 X10*3/uL (160-400); Platelet Morphology Comment NOTED
[2024-09-01] MEDS: Calcium Gluconate/NaCl,Iso-Osm 2 GM/100 ML PLAST..BAG IV (20:45)
[2024-09-01] MEDS: Montelukast Sodium 10 MG TABLET PO (21:24)
[2024-09-01 23:40] LABS: Glucose, Whole Blood 113 mg/dL (60-115)
[2024-09-02] VITALS (37 sets, daily range): BP systolic 97–134; BP diastolic 14–75; PULSE 100–113; RESP 23–25; TEMP 34.9–38.2; O2SAT 75–100; BMI 25.3
[2024-09-02] MEDS: Sodium Bicarbonate 8.4% 150 MEQ in Dextrose 5 % 850 ML 100 MEQ IV ×2 (02:45→13:14)
[2024-09-02] MEDS: propofoL 1,000 MG/100 ML VIAL 18.21 MG IVCONT ×4 (04:03→17:06)
[2024-09-02] MEDS: fentaNYL citrate/NS 1,000 MCG/100 ML PLAST..BAG 10 MCG IVCONT ×2 (04:26→14:28)
[2024-09-02] MEDS: Acetaminophen 325 MG TABLET 650 MG PO (04:27)
[2024-09-02] MEDS: Vasopressin 20 UNIT/100 ML INFUS..BTL 12 UNIT IVCONT ×2 (05:04→13:02)
[2024-09-02] MEDS: Norepinephrine Bitartrate/NS 16 MG/250 ML PLAST..BAG 39.83 MG IVCONT ×2 (05:09→11:06)
[2024-09-02 05:18] LABS: VBG Base Excess 1.1 mmol/L; VBG HCO3 26 mmol/L (22-26); VBG pCO2 48 mmHg; VBG pH 7.35 (7.32-7.43); VBG pO2 43 mmHg
[2024-09-02] MEDS: Pantoprazole Sodium 40 MG/10 ML VIAL IVPUSH (05:33)
[2024-09-02 05:54] LABS: Hematocrit 23.4 % (37.0-47.0); Mean Corpuscular HGB Conc 34.2 g/dl (31.0-35.0); Mean Corpuscular Hemoglobin 29.2 pg (27.0-33.0); Mean Corpuscular Volume 85.4 fL (80.0-98.0); Mean Platelet Volume 11.8 fL (9.4-12.3); NRBC Pct Auto 1.2 /100WBC (0.0-0.2); Red Blood Count 2.74 X10*6/uL (4.20-5.50); Red Cell Distribution Width 16.7 % (11.0-16.0); White Blood Count 18.9 X10*3/uL (4.8-10.8)
[2024-09-02 06:08] LABS: Platelet Count 96 X10*3/uL (160-400)
[2024-09-02 06:13] LABS: Albumin Level 3.2 g/dL (3.5-5.0); Anion Gap 29 (12-20); Aspartate Amino Transferase > 5234 U/L (5-31); Bilirubin Total 2.7 mg/dL (0.0-1.0); Blood Urea Nitrogen 71 mg/dL (9-16); Calcium 6.4 mg/dL (8.4-10.2); Carbon Dioxide 22 mmol/L (22-29); Chloride 93 mmol/L (96-108); Creatinine Clr Calc Pharmacy 15.7; Estimated Glomerular Filt Rate 15; Glucose Random 93 mg/dL (60-115); Magnesium 2.2 mg/dL (1.6-2.6); Phosphorus 8.5 mg/dL (2.7-4.5); Potassium 5.2 mmol/L (3.3-5.1); Sodium 139 mmol/L (135-145); Total Protein 5.1 g/dL (6.5-8.0)
--- NOTE | 2024-09-02 06:17 | PC.NURSE ---
Assumed care at 1900. Patient remains intubated and?sedated, propofol and fentanyl gtts running per JUL. RASS -5 r/t vent asynchrony. ST on tele, HR 100s-110s. Vasopressin and 2x Levophed gtts running per JUL for MAP goal > 65. Pulses obtained via doppler. Patient remains mechanically ventilated, largely synchronous with the vent but consistently hypoxic despite 100% FiO2 and repeated vent adjustments, MD aware. Lung sounds clear, diminished in the bases. Abdomen soft and round, hypoactive bowel sounds x4. OGT in place and clamped. Castle catheter in place and patent, draining light kelly urine with sediment. UOP approx 15-30mL/hr, provider aware. Skin overall intact, extremities remain pale and cool to the touch. Patient does not tolerate repositioning. Tmax 101.1, cooling blanket in place and PRN tylenol administered per JUL. Patient's daughter at the bedside, updated by this RN. Bed locked in lowest position, bed alarm on, soft wrist restraints in place.?
[2024-09-02 06:20] LABS: Alkaline Phosphatase 186 U/L (39-117)
[2024-09-02 06:27] LABS: Venous Blood Gas Refer to POC result
[2024-09-02 06:38] LABS: Alanine Aminotransferase 4126 U/L (0-31)
[2024-09-02] MEDS: 0.9 % Sodium Chloride Flush 3 ML SYRINGE IVFLUSH ×2 (07:11→14:36)
[2024-09-02] MEDS: Calcium Gluconate/NaCl,Iso-Osm 2 GM/100 ML PLAST..BAG IV (07:12)
[2024-09-02 07:45] LABS: Band Neutrophils Percent 22 % (3-5); Lymphocytes Absolute Manual 1.1 X10*3/uL (1.2-4.9); Lymphocytes Percent Manual 6 % (20-40); Metamyelocytes Absolute 0.2 X10*3/uL; Metamyelocytes Percent 1 %; Monocytes Absolute Manual 0.2 X10*3/uL (0.1-1.2); Monocytes Percent Manual 1 % (2-11); Myelocytes Absolute 0.2 X10*/uL; Myelocytes Percent 1 %; Neutrophils Absolute Manual 17.2 X10*3/uL (2.0-8.3); Neutrophils Percent Manual 69 % (45-73)
[2024-09-02 07:46] LABS: Nucleated Red Blood Cells 3 /100WBC (0-0)
[2024-09-02 07:52] LABS: Acanthocytes 1+ (0-2) /OIF; Burr Cells 2+ (3-5) /OIF; RBC Morphology NOTED; Schistocytes 1+ (0-2) /OIF; Tear Drop Cells 1+ (0-2) /OIF
[2024-09-02 07:53] LABS: Dohle Bodies PRESENT; Platelet Estimate DECREASED (NORMAL); Platelet Morphology Comment NORMAL; Toxic Vacuolation PRESENT
[2024-09-02] MEDS: Sertraline HCL 100 MG TABLET 200 MG PO (08:05)
[2024-09-02] MEDS: Atorvastatin Calcium 10 MG TABLET PO (08:05)
[2024-09-02] MEDS: Chlorhexidine Gluc Oral Rinse 15 ML MOUTHWASH BUCCAL ×2 (08:05→14:36)
[2024-09-02] MEDS: Folic Acid 1 MG TABLET PO (08:05)
[2024-09-02] MEDS: Ampicillin Sodium/Sulbactam Na 3 GM in 0.9 % Sodium Chloride 100 ML IV (09:15)
--- NOTE | 2024-09-02 09:37 | PM.PNNEP ---
Subjective Subjective Date of Service: 09/02/24 Interval history: Patient is a 64 y/o female with a medical history of HFrEF, COPD on 4L home O2, pulmonary HTN, DMII, HTN, HLD, history of SVT, cigarette use who presented 08/29 with right hip pain after a fall at home. On admission creatinine 2.34, previously 1.03 in June. 08/30 is 2.25. Blood pressures low on admission (95/71). transferred to ICU on evening of 08/30 due to hypoxic respiratory failure and shock requiring vasopressor support. Nephrology consulted for KEVIN. home furosemide and spironolactone were held since admission due to KEVIN on presentation. reportedly taking daily nsaid at home for pain- primarily headaches creatinine has remained fairly stable since admission. Creatinine 2.34 08/29, 1.29 08/30, 2.22 08/31, 09/01 2.39. 09/03 creatinine increased to 3.06. potassium mildly elevated at 5.2 liver enzymes 4-5,000 she is making urine, though output has been trending down. Patient is intubated and sedated at bedside. fio2 at 100%, patient O2 saturation at 81%; diuresis was trialed without improvement in respiratory status. Patient is tachycardic with hypotension requiring continued support with multiple vasopressors. Physical Exam Vital Signs: Vital Signs: Last Vital Signs Temp 99.9 F 09/02/24 08:00 Pulse 105 H 09/02/24 08:00 Resp 23 H 09/02/24 08:00 BP 114/68 09/02/24 08:00 Pulse Ox 81 L 09/02/24 08:00 O2 Del Method Mechanical Ventil ation 09/02/24 08:00 O2 Flow Rate 15 08/30/24 15:47 FiO2 100 09/02/24 08:00 Oxygen Flow Rate 4 08/29/24 15:29 BMI result Body Mass Index 25.3 Const: General: other (intubated, sedated. ) Neck: Neck: Yes no JVD Resp: Effort & Inspection: other (mechanical ventilation) Auscultation: wheezes Cardio: Rate: regular rate Rhythm: regular rhythm Heart sounds: S1 normal heart sound present and S2 normal heart sound present GI: Palpation (GI): Soft to palpation and nontender Neuro: Other: sedated; no tremor noted. Extrem: General: No edema Objective Data Labs 09/02/24 05:05 09/02/24 05:05 Labs: Laboratory Results - last 24 hr 09/01/24 09/01/24 09/01/24 11:10 11:12 11:17 WBC RBC Hgb Hct MCV MCH MCHC RDW Plt Count MPV Immature Gran % (Auto) Neut % (Auto) Lymph % (Auto) [place] % (Auto) Eos % (Auto) Baso % (Auto) Lymph # (Auto) [place] # (Auto) Eos # (Auto) Baso # (Auto) Abs Immat Gran (auto) Absolute Neuts (auto) Absolute Nucleated RBC Nucleated RBC % (auto) Neutrophils % (Manual) Band Neutrophils % Lymphocytes % (Manual) Monocytes % (Manual) Metamyelocytes % Myelocytes % Abs Neuts (Manual) Lymphocytes # (Manual) Monocytes # (Manual) Metamyelocytes # Myelocytes # Nucleated RBCs Toxic Vacuolation Dohle Bodies Platelet Estimate Large Platelets Plt Morphology Comment RBC Morphology Tear Drop Cells Ovalocytes [place] Cells Acanthocytes (Spur) Schistocytes O2 Saturation 89.0 ABG pH at Pt Temp 7.30 L ABG pCO2 at Pt Temp 46 H ABG pO2 at Pt Temp 65 L ABG HCO3 23 ABG Base Excess (Actual) -2.5 VBG pH VBG pCO2 VBG pO2 VBG HCO3 VBG O2 Saturation VBG Base Excess Sodium Potassium Chloride Carbon Dioxide Anion Gap BUN Creatinine Estim Creat Clear Calc Estimated GFR POC Glucose 67 116 H Random Glucose Calcium Phosphorus Magnesium Total Bilirubin AST ALT Alkaline Phosphatase Total Protein Albumin 09/01/24 09/01/24 09/01/24 17:10 19:06 19:12 WBC 13.4 H RBC 2.69 L Hgb 7.9 L Hct 23.0 L MCV 85.5 MCH 29.4 MCHC 34.3 RDW 16.7 H Plt Count 81 L D MPV 11.1 Immature Gran % (Auto) Cancelled Neut % (Auto) Cancelled Lymph % (Auto) Cancelled [place] % (Auto) Cancelled Eos % (Auto) Cancelled Baso % (Auto) Cancelled Lymph # (Auto) Cancelled [place] # (Auto) Cancelled Eos # (Auto) Cancelled Baso # (Auto) Cancelled Abs Immat Gran (auto) Cancelled Absolute Neuts (auto) Cancelled Absolute Nucleated RBC 0.090 H Nucleated RBC % (auto) 0.7 H Neutrophils % (Manual) 90 H Band Neutrophils % 6 H Lymphocytes % (Manual) 4 L Monocytes % (Manual) Metamyelocytes % Myelocytes % Abs Neuts (Manual) 12.9 H Lymphocytes # (Manual) 0.5 L Monocytes # (Manual) Metamyelocytes # Myelocytes # Nucleated RBCs 1 H Toxic Vacuolation Dohle Bodies Platelet Estimate DECREASED Large Platelets PRESENT Plt Morphology Comment NOTED RBC Morphology NOTED Tear Drop Cells 1+ (0-2) Ovalocytes 1+ (5-14) Analy Cells 1+ (0-2) Acanthocytes (Spur) Schistocytes O2 Saturation ABG pH at Pt Temp ABG pCO2 at Pt Temp ABG pO2 at Pt Temp ABG HCO3 ABG Base Excess (Actual) VBG pH 7.33 VBG pCO2 44 VBG pO2 45 VBG HCO3 23 VBG O2 Saturation 64.0 VBG Base Excess -1.8 Sodium 139 Potassium 5.0 Chloride 96 Carbon Dioxide 21 L Anion Gap 27 H BUN 64 H Creatinine 2.95 H Estim Creat Clear Calc 16.0 Estimated GFR 16 POC Glucose 113 Random Glucose 124 H Calcium 7.1 L D Phosphorus 8.8 H Magnesium 2.2 Total Bilirubin AST ALT Alkaline Phosphatase Total Protein Albumin 09/01/24 09/02/24 09/02/24 23:36 05:05 05:14 WBC 18.9 H RBC 2.74 L Hgb 8.0 L Hct 23.4 L MCV 85.4 MCH 29.2 MCHC 34.2 RDW 16.7 H Plt Count 96 L MPV 11.8 Immature Gran % (Auto) Cancelled Neut % (Auto) Cancelled Lymph % (Auto) Cancelled [place] % (Auto) Cancelled Eos % (Auto) Cancelled Baso % (Auto) Cancelled Lymph # (Auto) Cancelled [place] # (Auto) Cancelled Eos # (Auto) Cancelled Baso # (Auto) Cancelled Abs Immat Gran (auto) Cancelled Absolute Neuts (auto) Cancelled Absolute Nucleated RBC 0.230 H Nucleated RBC % (auto) 1.2 H Neutrophils % (Manual) 69 Band Neutrophils % 22 H Lymphocytes % (Manual) 6 L Monocytes % (Manual) 1 L Metamyelocytes % 1 Myelocytes % 1 Abs Neuts (Manual) 17.2 H Lymphocytes # (Manual) 1.1 L Monocytes # (Manual) 0.2 Metamyelocytes # 0.2 Myelocytes # 0.2 Nucleated RBCs 3 H Toxic Vacuolation PRESENT Dohle Bodies PRESENT Platelet Estimate DECREASED Large Platelets Plt Morphology Comment NORMAL RBC Morphology NOTED Tear Drop Cells 1+ (0-2) Ovalocytes [place] Cells 2+ (3-5) Acanthocytes (Spur) 1+ (0-2) Schistocytes 1+ (0-2) O2 Saturation ABG pH at Pt Temp ABG pCO2 at Pt Temp ABG pO2 at Pt Temp ABG HCO3 ABG Base Excess (Actual) VBG pH 7.35 VBG pCO2 48 VBG pO2 43 VBG HCO3 26 VBG O2 Saturation 60.0 VBG Base Excess 1.1 Sodium 139 Potassium 5.2 H Chloride 93 L Carbon Dioxide 22 Anion Gap 29 H BUN 71 H Creatinine 3.06 H Estim Creat Clear Calc 15.7 Estimated GFR 15 POC Glucose 113 Random Glucose 93 Calcium 6.4 L D Phosphorus 8.5 H Magnesium 2.2 Total Bilirubin 2.7 H AST > 5234 H ALT 4126 H Alkaline Phosphatase 186 H Total Protein 5.1 L Albumin 3.2 L Microbiology Microbiology Results: Microbiology 08/30/24 21:25 Blood - Venous Blood Culture - Preliminary No growth after 48 hours. 08/30/24 21:25 Blood - Venous Blood Culture - Preliminary No growth after 48 hours. Procedures Date of Service Date of Service: 09/02/24 Assessment & Plan Assessment and plan (1) KEVIN (acute kidney injury): Status: Acute (2) Heart failure with recovered ejection fraction (HFrecEF): Status: Acute Plan KEVIN likely multifactorial; initially concurrent use of diuretics and daily NSAIDs at home likely contributory, in addition hemodynamic KEVIN from hypotension is likely a contributing factor. second KEVIN due to ATN 2/2 hypoperfusion/shock creatinine had stabilized, though creatinine worsening overnight- ATN in setting of hypoperfusion 2/2 shock given no clinical signs of hypervolemia, recommend to continue to hold diuretics for now; may diurese if clinically indicated. recommend avoiding NSAIDs and other nephrotoxins. continue close monitoring of I&O continue to monitor blood pressures and assess daily electrolyte and renal function studies Will continue to follow Discussed with Dr Dumont Time Spent With Patient Time: Total time managing care of this patient today ____ minutes. Progress Note: Quality Stroke Does the patient have a stroke diagnosis?: No
[2024-09-02 11:08] LABS: Glucose, Whole Blood 51 mg/dL (60-115)
[2024-09-02 11:08] LABS: Glucose, Whole Blood 65 mg/dL (60-115)
[2024-09-02] MEDS: Dextrose 10 % 1,000 ML 50 ML IVCONT (11:15)
--- NOTE | 2024-09-02 12:07 | MHC.CLN ---
F/U PT REMAINS INTUBATED AND SEDATED DISCUSSED AT ROUNDS WITH MD-PLAN FOR FAMILY TEAM MEETING TO DISCUSS GOALS OF CARE-POSSIBLE NURSING PROJECT COORDINATOR DAY 3 NPO IF TF WARRANTED; RECOMMEND GLUCERNA AT 45ML/HR TO PROVIDE 1080KCALS (1561KCALS WITH SEDATION; 28KCALS/KG), 45G PROTEIN (.8G/KG), 921ML FREE WATER FROM FORMULA MONITOR TOLERANCE AND LYTES FOLLOWING WITH TEAM FOR GOALS OF CARE-WILL PROVIDE SUPPORT NEEDED RD CAN BE REACHED DURING OFF HOURS VIA TIGER CONNECT IF NEEDED
--- NOTE | 2024-09-02 12:50 | P.PNCC_ITS ---
Subjective Subjective Date of Service: 09/02/24 Interval History: 64-year-old lady with underlying systolic heart failure, COPD on 4 L, pulmonary hypertension, diabetes mellitus, hypertension, hyperlipidemia admitted on 08/29/2024 after mechanical fall with resultant right hip fracture. Patient admitted to telemetry so within evaluated by orthopedic service with plans for operative repair. Hospital course significant for progressive hypoxemia requiring CPAP/non-rebreather with development of respiratory distress on 08/30/2024 requiring intubation on telemetry saba and transferred to the intensive care unit. CT angio chest with no evidence of pulmonary emboli, but stigmata of pulmonary hypertension. Patient requiring maximum ventilatory support, also with development of shock and NSTEMI. Now with progressive shock and hypoxia despite maximum ventilatory support resulting in worsening ischemic hepatitis and ATN. No events overnight. Critical Care Time (minutes): 60 Physical Exam 2 Vital Signs: Vital Signs: Last Vital Signs Temp 100.2 F 09/02/24 12:00 Pulse 106 H 09/02/24 12:00 Resp 25 H 09/02/24 12:00 BP 119/57 L 09/02/24 12:00 Pulse Ox 100 09/02/24 12:00 O2 Del Method Mechanical Ventil ation 09/02/24 12:00 O2 Flow Rate 15 08/30/24 15:47 FiO2 100 09/02/24 12:00 Oxygen Flow Rate 4 08/29/24 15:29 BMI result Body Mass Index 25.3 Const: General: no acute distress and other (Sedated on ventilatory support) Eyes: Sclerae: sclerae normal EOM: EOMs intact bilaterally Neck: Neck: Yes no lymphadenopathy, Yes trachea midline and Yes supple Resp: Auscultation: crackles (Bilateral) Cardio: Rate: tachycardic Rhythm: regular rhythm Heart sounds: no gallops, no murmurs and no rubs GI: Palpation (GI): Soft to palpation and Other GI palpation findings present ( Nontender) Auscultation: normal bowel sounds Extrem: General: No clubbing, No cyanosis and Yes edema (Trace bilateral) Objective Data Labs 09/02/24 05:05 09/02/24 05:05 Labs: Laboratory Results - last 24 hr 09/01/24 09/01/24 09/01/24 17:10 19:06 19:12 WBC 13.4 H RBC 2.69 L Hgb 7.9 L Hct 23.0 L MCV 85.5 MCH 29.4 MCHC 34.3 RDW 16.7 H Plt Count 81 L D MPV 11.1 Immature Gran % (Auto) Cancelled Neut % (Auto) Cancelled Lymph % (Auto) Cancelled [place] % (Auto) Cancelled Eos % (Auto) Cancelled Baso % (Auto) Cancelled Lymph # (Auto) Cancelled [place] # (Auto) Cancelled Eos # (Auto) Cancelled Baso # (Auto) Cancelled Abs Immat Gran (auto) Cancelled Absolute Neuts (auto) Cancelled Absolute Nucleated RBC 0.090 H Nucleated RBC % (auto) 0.7 H Neutrophils % (Manual) 90 H Band Neutrophils % 6 H Lymphocytes % (Manual) 4 L Monocytes % (Manual) Metamyelocytes % Myelocytes % Abs Neuts (Manual) 12.9 H Lymphocytes # (Manual) 0.5 L Monocytes # (Manual) Metamyelocytes # Myelocytes # Nucleated RBCs 1 H Toxic Vacuolation Dohle Bodies Platelet Estimate DECREASED Large Platelets PRESENT Plt Morphology Comment NOTED RBC Morphology NOTED Tear Drop Cells 1+ (0-2) Ovalocytes 1+ (5-14) [place] Cells 1+ (0-2) Acanthocytes (Spur) Schistocytes Smear Path Review SEE NOTE VBG pH 7.33 VBG pCO2 44 VBG pO2 45 VBG HCO3 23 VBG O2 Saturation 64.0 VBG Base Excess -1.8 Sodium 139 Potassium 5.0 Chloride 96 Carbon Dioxide 21 L Anion Gap 27 H BUN 64 H Creatinine 2.95 H Estim Creat Clear Calc 16.0 Estimated GFR 16 POC Glucose 113 Random Glucose 124 H Calcium 7.1 L D Phosphorus 8.8 H Magnesium 2.2 Total Bilirubin AST ALT Alkaline Phosphatase Total Protein Albumin 09/01/24 09/02/24 09/02/24 23:36 05:05 05:14 WBC 18.9 H RBC 2.74 L Hgb 8.0 L Hct 23.4 L MCV 85.4 MCH 29.2 MCHC 34.2 RDW 16.7 H Plt Count 96 L MPV 11.8 Immature Gran % (Auto) Cancelled Neut % (Auto) Cancelled Lymph % (Auto) Cancelled [place] % (Auto) Cancelled Eos % (Auto) Cancelled Baso % (Auto) Cancelled Lymph # (Auto) Cancelled [place] # (Auto) Cancelled Eos # (Auto) Cancelled Baso # (Auto) Cancelled Abs Immat Gran (auto) Cancelled Absolute Neuts (auto) Cancelled Absolute Nucleated RBC 0.230 H Nucleated RBC % (auto) 1.2 H Neutrophils % (Manual) 69 Band Neutrophils % 22 H Lymphocytes % (Manual) 6 L Monocytes % (Manual) 1 L Metamyelocytes % 1 Myelocytes % 1 Abs Neuts (Manual) 17.2 H Lymphocytes # (Manual) 1.1 L Monocytes # (Manual) 0.2 Metamyelocytes # 0.2 Myelocytes # 0.2 Nucleated RBCs 3 H Toxic Vacuolation PRESENT Dohle Bodies PRESENT Platelet Estimate DECREASED Large Platelets Plt Morphology Comment NORMAL RBC Morphology NOTED Tear Drop Cells 1+ (0-2) Ovalocytes [place] Cells 2+ (3-5) Acanthocytes (Spur) 1+ (0-2) Schistocytes 1+ (0-2) Smear Path Review VBG pH 7.35 VBG pCO2 48 VBG pO2 43 VBG HCO3 26 VBG O2 Saturation 60.0 VBG Base Excess 1.1 Sodium 139 Potassium 5.2 H Chloride 93 L Carbon Dioxide 22 Anion Gap 29 H BUN 71 H Creatinine 3.06 H Estim Creat Clear Calc 15.7 Estimated GFR 15 POC Glucose 113 Random Glucose 93 Calcium 6.4 L D Phosphorus 8.5 H Magnesium 2.2 Total Bilirubin 2.7 H AST > 5234 H ALT 4126 H Alkaline Phosphatase 186 H Total Protein 5.1 L Albumin 3.2 L 09/02/24 09/02/24 11:03 11:05 WBC RBC Hgb Hct MCV MCH MCHC RDW Plt Count MPV Immature Gran % (Auto) Neut % (Auto) Lymph % (Auto) [place] % (Auto) Eos % (Auto) Baso % (Auto) Lymph # (Auto) [place] # (Auto) Eos # (Auto) Baso # (Auto) Abs Immat Gran (auto) Absolute Neuts (auto) Absolute Nucleated RBC Nucleated RBC % (auto) Neutrophils % (Manual) Band Neutrophils % Lymphocytes % (Manual) Monocytes % (Manual) Metamyelocytes % Myelocytes % Abs Neuts (Manual) Lymphocytes # (Manual) Monocytes # (Manual) Metamyelocytes # Myelocytes # Nucleated RBCs Toxic Vacuolation Dohle Bodies Platelet Estimate Large Platelets Plt Morphology Comment RBC Morphology Tear Drop Cells Ovalocytes Analy Cells Acanthocytes (Spur) Schistocytes Smear Path Review VBG pH VBG pCO2 VBG pO2 VBG HCO3 VBG O2 Saturation VBG Base Excess Sodium Potassium Chloride Carbon Dioxide Anion Gap BUN Creatinine Estim Creat Clear Calc Estimated GFR POC Glucose 51 L* 65 Random Glucose Calcium Phosphorus Magnesium Total Bilirubin AST ALT Alkaline Phosphatase Total Protein Albumin Microbiology Microbiology Results: Microbiology 08/30/24 21:25 Blood - Venous Blood Culture - Preliminary No growth after 48 hours. 08/30/24 21:25 Blood - Venous Blood Culture - Preliminary No growth after 48 hours. Progress Note: A&P Assessment and plan (1) Congestive heart failure: Status: Acute (2) Shock: Status: Acute (3) Fat embolism: Status: Acute (4) Type 2 diabetes mellitus, without long-term current use of insulin: Status: Acute (5) Ischemic hepatitis: Status: Acute (6) KEVIN (acute kidney injury): Status: Acute (7) Acute hypoxic respiratory failure: Status: Acute (8) Severe chronic obstructive pulmonary disease: Status: Acute Plan Assessment: 64-year-old lady admitted with mechanical fall resulting in right hip fracture complicated by acute hypoxic respiratory failure likely secondary to fat embolism requiring intubation and ventilatory support, also further complicated by pulmonary aspiration, shock, KEVIN, and NSTEMI. Now with progressive shock and hypoxemia despite maximum ventilatory support. Plan: Neuro: No acute issues. Cardiac: Shock, undifferentiated, continue to titrate off pressor support as tolerated. 2D echocardiogram is pending. Cardiology service care appreciated. Heparin drip held secondary to acute blood loss anemia. Pulmonary: Acute hypoxic respiratory failure likely secondary to combination asthma and pulmonary aspiration now requiring maximum ventilatory support. Continue to titrate off as tolerated. CT angio chest with no evidence of pulmonary emboli. Renal: Acute kidney injury likely secondary to ATN. Non oliguric. Continue to monitor renal indices and urine output. Endo: No acute issues. GI: Ischemic hepatitis secondary to shock. ID: Empiric coverage for pulmonary aspiration. Heme/Onc: Acute blood loss anemia. Heparin drip stopped. Transfused 1 unit of packed red blood cells with stabilization of hemoglobin. Psych: No acute issues. Miscellaneous: Right hip fracture. Orthopedic surgery service care appreciated. Initially planned for OR repair, now on hold. Discussions of goals of care ongoing with healthcare proxy and family. Prophylaxis: Pneumatic compression, ppi Diet: Tube feeds Critical care time spent: 60 minutes Quality Stroke Does the patient have a stroke diagnosis?: No VTE Prior VTE?: No VTE Risk Level:: Medical - moderate - high VTE Device Contraindication: N/A - Device Ordered VTE Drug Contraindication: Treatment Not Indicated
--- NOTE | 2024-09-02 14:38 | MHC.CM.PN ---
Pt remains intubated - respiratory failure likely d/t fat embolism following a fall w/femur fx. Pt not stable for ORIF at this time. 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 Pt from home w/[facility] care. CM to follow for finalization of d/c needs.
--- NOTE | 2024-09-02 16:47 | PC.NURSE ---
Addendum entered by Herminia Moncada RN 09/02/24 18:39: HCP updated and at bedside Addendum entered by Herminia Moncada RN 09/02/24 17:54: Patient asystole on monitor, unable to palpate pulse or auscultate heart sounds. MD notified. Dr Shoemaker at bedside - time of 1737. Son at bedside and updated by Dr Angelo. HCP notified via phone number in chart - message left Addendum entered by Herminia Moncada RN 09/02/24 17:03: Bicarb amp administered at 1658 - BP 117/65, 84% on 100% Fio2 w/ good trevon Prescott MD notified Addendum entered by Herminia Moncada RN 09/02/24 16:59: TO Dr Beckford 1amp NA Bicarb now Original Note: Widened QRS, increased ST elevation? on monitor, unable to obtain BP, extremities cold, slight mottling, positive heart sounds auscultated, 83% on 100% Fio2 w/ poor trevon Prescott MD notified - TO Dr Beckford max Levo gtt from 0.7mcg/kg/min to 1mcg/kg/min, no other orders at this time.
[2024-09-02] MEDS: Norepinephrine Bitartrate/NS 16 MG/250 ML PLAST..BAG 56.91 MG IVCONT (16:53)
[2024-09-02 17:14] LABS: Glucose, Whole Blood 97 mg/dL (60-115)
--- NOTE | 2024-09-02 17:55 | PM.EVENT ---
Event Note Date of Service: 09/02/24 Event Note: I was contacted to evaluate the patient No pulse, no active breathing effort, fixed dilated pupils Patient pronounced on 1736. Son was in ICU at that time. i broke the news. he became very emotional. support offered. Time Spent With Patient Time: Total time managing care of this patient today ____ minutes.
--- NOTE | 2024-09-02 20:26 | P.DN_ITS ---
Discharge Sum: Prov Provider Primary care physician: Analisa Chavez MD Admitting clinician: David Caruso Attending physician on admission: Ethan Santamaria Consults: 08/29/24 18:36 Consult to Orthopedics Routine Consulting Provider: [facility] Reason for consultation: Right hip fracture 08/30/24 01:15 Consult to Cardiology Routine Consulting Provider: [facility] Reason for consultation: NSTEMI Has provider been notified: Yes 08/30/24 08:07 Consult to Nephrology Routine Consulting Provider: [facility] Reason for consultation: kevin 08/30/24 09:50 Consult to Wound Care Routine Reason for consultation: area to coccyx; not open 09/02/24 11:56 Consult to NED[facility] ([facility]) Routine Consulting Provider: [facility] Pronouncing clinician: Kailey Angelo Discharge Sum: Diag PCOD Cause of : Cardiopulmonary arrest Contributing Factors (1) Fall: (2) Closed right hip fracture: (3) Fat embolism: (4) Acute hypoxic respiratory failure: (5) Shock: (6) KEVIN (acute kidney injury): (7) Heart failure with recovered ejection fraction (HFrecEF): (8) NSTEMI (non-ST elevated myocardial infarction): (9) Transaminitis: (10) Aspiration into airway: (11) Pulmonary aspiration: (12) Respiratory failure: (13) Ischemic hepatitis: (14) Type 2 diabetes mellitus, without long-term current use of insulin: (15) Acute on chronic heart failure with mildly reduced ejection fraction (HFmrEF, 41-49%): Discharge Sum: Summary Date and Time Date of admission: 08/29/24 18:07 Summary Details: 64-year-old female with a? past medical history significant for HFrEF (EF 40- 45%), COPD with chronic hypoxic respiratory failure on 4L home O2, pulmonary hypertension, [id number] type 2 diabetes, HTN, HLD, and hx of SVT who presents to the? emergency department on 08/29/2024 with right hip pain secondary to fall at home.? Admitted to Hospital Medicine for right femoral neck fracture? with plans to have orthopedic surgery on 08/30/24 but held due to Of congestive heart failure exacerbation.? ?Hospital course significant for progressive hypoxemia requiring CPAP/non- rebreather with development of respiratory distress on 08/30/2024 requiring intubation on telemetry saba and transferred to the intensive care unit. Given long bone fracture, there is concern about fat embolism as potential reason for hypoxia. CT angio chest with no evidence of pulmonary emboli, but stigmata of pulmonary hypertension.? Echo showed significant RV dysfunction with severe pulmonary hypertension. New right bundle-branch block on EKG. Cardiology? following,? which recommended heparin drip.? Heparin drip held secondary to acute blood loss anemia.? ?Patient ening ischemic hepatitis andwith progressive shock and hypoxia despite maximum ventilatory support resulting in wors ATN.? ?According to MOL[facility] form from august 2023,? patient is DNR DNI,? this was confirmed with Healthcare proxy Aura Walton. ?Goals of care conversation held with Aura? as well as daughter Amelia Goldy,? they were informed of patient?s medical condition,? they wanted some time to make TRACK REPAIRER HELPER decision.? ?But today patient? with progressive hypoxia despite being maxed? on ventilatory settings.? ?Patient became asystole this afternoon,? time of 1736.? HCP Chanelle informed as well as daughter Amelia.? disability insurance claim examiner informed. Accepted patient as chart review case # [id number], Dr Eve Luu. ME will fill out certificate? Additional Data Attending/PCP notified?: Yes Attending physician: José Miguel Beckford MD Was code activated?: No disability insurance claim examiner notified?: Yes (for chart review Case# [id number]) Advance directives: Yes
== END 2024-09-02 22:30 | disposition expired | DRG 930 ==
LOC: HO.ED 17:41 → HO.EDOVER 18:19 → HO.S3 19:11 → HO.EDOVER 20:22 → HO.IMC 08-30 07:41 → HO.ICU 08-30 17:30
PROVIDERS: Internal Medicine; Nurse Practitioner Acute Care; Registered Nurse Community Health; Student in an Organized Health Care Education/Training Program; Admitting Provider Student in an Organized Health Care Education/Training Program; Emergency Provider Emergency Medicine; PCP Internal Medicine; Visit Provider Internal Medicine Pulmonary Disease
DX: S72.001A Fracture of unspecified part of neck of right femur, initial encounter for closed fracture (principal); T79.1XXA Fat embolism (traumatic), initial encounter; J96.21 Acute and chronic respiratory failure with hypoxia; K72.00 Acute and subacute hepatic failure without coma; N17.0 Acute kidney failure with tubular necrosis; J69.0 Pneumonitis due to inhalation of food and vomit; I27.20 Pulmonary hypertension, unspecified; D62 Acute posthemorrhagic anemia; R57.0 Cardiogenic shock; I50.23 Acute on chronic systolic (congestive) heart failure; E78.5 Hyperlipidemia, unspecified; E11.9 Type 2 diabetes mellitus without complications; J44.9 Chronic obstructive pulmonary disease, unspecified; G47.33 Obstructive sleep apnea (adult) (pediatric); T39.395A Adverse effect of other nonsteroidal anti-inflammatory drugs [NSAID], initial encounter; T50.2X5A Adverse effect of carbonic-anhydrase inhibitors, benzothiadiazides and other diuretics, initial encounter; X58.XXXA Exposure to other specified factors, initial encounter; I21.A1 Myocardial infarction type 2; I45.10 Unspecified right bundle-branch block; W19.XXXA Unspecified fall, initial encounter; I11.0 Hypertensive heart disease with heart failure; Z99.81 Dependence on supplemental oxygen; Z79.84 Long term (current) use of oral hypoglycemic drugs; Z79.899 Other long term (current) drug therapy
CPT/HCPCS: 36415; 36600; 70450; 71045; 71275; 72125; 73502; 74177; 80048; 80053; 80076; 81001; 82803; 82947; 83605; 83690; 83735; 83880; 84100; 84484; 85007; 85025; 85027; 85379; 85610; 85730; 86850; 86900; 86901; 86923; 87040; 93005; 93306; 94002; 94003; 94640; 94660; 94799; 99285; J0295; J0613; J1171; J1644; J1650; J1885; J1938; J2250; J2270; J2470; J2598; J2704; J3010; J7120; P9016; P9047; Q9957; Q9967

== ENCOUNTER → 2024-08-29 16:03 | Outpatient (BNV) | payer MEDICARE, SELFPAY | PROVIDERS: Emergency Provider Emergency Medicine; PCP Internal Medicine; Visit Provider Radiology Diagnostic Radiology | DX: M54.2 Cervicalgia (principal); R53.83 Other fatigue; S72.001A Fracture of unspecified part of neck of right femur, initial encounter for closed fracture; I51.7 Cardiomegaly; W19.XXXA Unspecified fall, initial encounter | CPT/HCPCS: 70450; 71045; 72125; 73502 ==

== ENCOUNTER 2024-08-29 18:07 | Outpatient (BNV) | payer OTHER, SELFPAY | END 2024-08-31 02:15 | PROVIDERS: Admitting Provider Student in an Organized Health Care Education/Training Program; Emergency Provider Emergency Medicine; PCP Internal Medicine; Visit Provider Radiology Diagnostic Radiology | DX: J81.1 Chronic pulmonary edema (principal); R91.8 Other nonspecific abnormal finding of lung field | CPT/HCPCS: 71045 ==

== ENCOUNTER 2024-08-29 18:07 | Outpatient (BNV) | payer OTHER, SELFPAY | END 2024-08-30 18:59 | PROVIDERS: Admitting Provider Student in an Organized Health Care Education/Training Program; Emergency Provider Emergency Medicine; PCP Internal Medicine; Visit Provider Internal Medicine Cardiovascular Disease | DX: I50.9 Heart failure, unspecified (principal); I27.20 Pulmonary hypertension, unspecified; I36.1 Nonrheumatic tricuspid (valve) insufficiency | CPT/HCPCS: 93306 ==

== ENCOUNTER 2024-08-29 18:07 | Outpatient (BNV) | payer OTHER, SELFPAY | END 2024-08-30 08:00 | PROVIDERS: Admitting Provider Student in an Organized Health Care Education/Training Program; Emergency Provider Emergency Medicine; PCP Internal Medicine; Visit Provider Radiology Diagnostic Radiology | DX: S72.001A Fracture of unspecified part of neck of right femur, initial encounter for closed fracture (principal); R09.02 Hypoxemia; R53.83 Other fatigue; R91.8 Other nonspecific abnormal finding of lung field | CPT/HCPCS: 70450; 71045; 71275; 74177 ==

== ENCOUNTER → 2024-08-29 18:07 | Outpatient (BNV) | payer OTHER, SELFPAY | PROVIDERS: Admitting Provider Student in an Organized Health Care Education/Training Program; Emergency Provider Emergency Medicine; PCP Internal Medicine; Visit Provider Registered Nurse Community Health | DX: I50.32 Chronic diastolic (congestive) heart failure (principal); R57.9 Shock, unspecified; J96.21 Acute and chronic respiratory failure with hypoxia; N17.9 Acute kidney failure, unspecified; S72.001A Fracture of unspecified part of neck of right femur, initial encounter for closed fracture; T17.908A Unspecified foreign body in respiratory tract, part unspecified causing other injury, initial encounter | CPT/HCPCS: 36556; 99291; 99292; 99499 ==

== ENCOUNTER → 2024-08-29 18:07 | Outpatient (BNV) | payer OTHER, SELFPAY | PROVIDERS: Admitting Provider Student in an Organized Health Care Education/Training Program; Emergency Provider Emergency Medicine; PCP Internal Medicine; Visit Provider Internal Medicine Pulmonary Disease | DX: K72.00 Acute and subacute hepatic failure without coma (principal); I50.21 Acute systolic (congestive) heart failure; T79.1XXA Fat embolism (traumatic), initial encounter; E11.9 Type 2 diabetes mellitus without complications; N17.9 Acute kidney failure, unspecified; J44.9 Chronic obstructive pulmonary disease, unspecified; J96.01 Acute respiratory failure with hypoxia; S72.001A Fracture of unspecified part of neck of right femur, initial encounter for closed fracture | CPT/HCPCS: 99291 ==

== ENCOUNTER → 2024-08-29 18:07 | Outpatient (BNV) | payer OTHER, SELFPAY | PROVIDERS: Admitting Provider Student in an Organized Health Care Education/Training Program; Emergency Provider Emergency Medicine; PCP Internal Medicine; Visit Provider Student in an Organized Health Care Education/Training Program | DX: N17.9 Acute kidney failure, unspecified (principal); S72.001A Fracture of unspecified part of neck of right femur, initial encounter for closed fracture | CPT/HCPCS: 99223 ==

== ENCOUNTER → 2024-08-29 18:07 | Outpatient (BNV) | payer OTHER, SELFPAY | PROVIDERS: Admitting Provider Student in an Organized Health Care Education/Training Program; Emergency Provider Emergency Medicine; PCP Internal Medicine; Visit Provider Nurse Practitioner Family | DX: N17.9 Acute kidney failure, unspecified (principal); I50.32 Chronic diastolic (congestive) heart failure | CPT/HCPCS: 99222; 99232 ==

== ENCOUNTER → 2024-08-29 18:07 | Outpatient (BNV) | payer OTHER, SELFPAY | PROVIDERS: Admitting Provider Student in an Organized Health Care Education/Training Program; Emergency Provider Emergency Medicine; PCP Internal Medicine; Visit Provider Internal Medicine Cardiovascular Disease | DX: N17.9 Acute kidney failure, unspecified (principal); I50.23 Acute on chronic systolic (congestive) heart failure | CPT/HCPCS: 93010; 99223 ==